=== PATIENT | male | born 1940 | race Caucasian/White ===

== ENCOUNTER 2016-05-27 20:39 | Emergency (ER) | payer MEDICARE, OTHER ==
[2016-05-27 20:53] VITALS: BMI 27.4
--- NOTE | 2016-05-27 21:24 | ED PDOC ---
Arrival/HPI - General Historian: Patient - History of Present Illness Time/Duration: 24 hours Symptom Onset: Sudden <Ceferino Butler - Last Filed: 05/27/16 23:42> <Usman Martinez - Last Filed: 05/28/16 00:49> - General Chief Complaint: Lower Extremity Problem/Injury Time Seen by Provider: 05/27/16 20:40 - History of Present Illness Narrative History of Present Illness (Text): 05/27/16 21:19 76 y/o male with hx Mantle Cell lymphoma, CAD s/p stents, recent admission for b /l pneumonia presenting with pain in swelling to left ankle. Patient states he woke up with left ankle pain last night and noticed swelling to the area. Patient denies injury or trauma. He further denies fever or chills. Patient is currently undergoing chemotherapy which consists of Imbruvica with an extensive side effect profile. This is his third course of taking this drug. He is able to ambulate without distress. Denies chest pain, shortness of breath (Ceferino Butler) Past Medical History - Provider Review Nursing Documentation Reviewed: Yes - Past History Past History: Unable to Obtain - Infectious Disease Hx of Infectious Diseases: None - Tetanus Immunization Tetanus Immunization: Unknown - Cardiac Hx Cardiac Disorders: Yes Hx Congestive Heart Failure: No Hx Hypertension: Yes - Pulmonary Hx Pneumonia: No - Neurological HX Cerebrovascular Accident: No - HEENT Hx HEENT Disorder: Yes (wears eyeglasses) Hx Deafness: Yes Other/Comment: 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, uses a hearing aid in right ear also - Renal Hx Renal Failure: No - Endocrine/Metabolic Hx Diabetes Mellitus Type 1: No Hx Diabetes Mellitus Type 2: No Hx Hypothyroidism: No - Hematological/Oncological Hx Cancer: No - Integumentary Hx Dermatological Disorder: No - Musculoskeletal/Rheumatological Hx Arthritis: No Hx Rheumatoid Arthritis: No - Gastrointestinal Hx Gastroesophageal Reflux: No - Genitourinary/Gynecological Hx Genitourinary Disorders: No Hx Reproductive Disorders: No - Psychiatric Hx Emotional Abuse: No Hx Physical Abuse: No Hx Substance Use: No - Past Surgical History Past Surgical History: Unable to Obtain - Surgical History Hx Orthopedic Surgery: Yes - Anesthesia Hx Anesthesia Reactions: No Hx Malignant Hyperthermia: No - Suicidal Assessment Feels Threatened In Home Enviroment: No <Ceferino Butler - Last Filed: 05/27/16 23:42> Family/Social History - Physician Review Nursing Documentation Reviewed: Yes Family/Social History: Unknown Family HX Smoking Status: Never Smoked Hx Alcohol Use: No Hx Substance Use: No Hx Substance Use Treatment: No <Ceferino Butler - Last Filed: 05/27/16 23:42> Allergies/Home Meds <Ceferino Butler - Last Filed: 05/27/16 23:42> <Usman Martinez - Last Filed: 05/28/16 00:49> Allergies/Adverse Reactions: Allergies azithromycin Allergy (Severe, Verified 04/21/16 19:17) ANGIOEDEMA erythromycin base Allergy (Severe, Verified 04/21/16 19:17) ANGIOEDEMA Penicillins Allergy (Severe, Verified 04/21/16 19:17) ANAPHYLAXIS cephalexin monohydrate [From Keflex] Allergy (Intermediate, Verified 04/21/16 19 :17) RASH gabapentin Allergy (Intermediate, Verified 04/21/16 19:17) RASH pregabalin Allergy (Intermediate, Verified 04/21/16 19:17) RASH Sulfa (Sulfonamide Antibiotics) Allergy (Intermediate, Verified 04/21/16 19:17) RASH nitro paste Allergy (Intermediate, Uncoded 04/21/16 19:17) DIZZINESS/HYPOTENSION CAUSE HYPOTENSION Home Medications: Home Meds Medication Instructions Recorded Confirmed Ranolazine [Ranexa] 500 mg PO BID 12/07/14 04/21/16 Aspirin [Aspirin EC] 81 mg PO DAILY 09/10/15 04/21/16 Oxybutynin Chloride 5 mg PO DAILY 09/10/15 04/21/16 Levalbuterol [Xopenex] 1.25 mg IH Q6 PRN 01/31/16 04/21/16 Acetaminophen [Tylenol (Renal)] 650 mg PO Q6 PRN 04/21/16 04/21/16 Benzocaine/Menthol [Chloraseptic 1 lozenge PO DAILY 04/21/16 04/21/16 Max Lozenge] Insulin Regular, Human [Humulin R See Protocol SQ ACHS 04/21/16 04/21/16 U-500] Metoprolol Tartrate [Lopressor] 25 mg PO DAILY 04/21/16 04/21/16 Ondansetron [Zofran Inj] 4 mg IVP Q6H 04/21/16 04/21/16 Pantoprazole [Protonix EC Tab] 40 mg PO DAILY 04/21/16 04/21/16 Polyethylene Glycol 3350 [Miralax] 1 packet PO DAILY PRN 04/21/16 04/21/16 Review of Systems - Physician Review All systems were reviewed & negative as marked: Yes - Review of Systems Constitutional: absent: Fevers, Night Sweats Respiratory: absent: SOB, Cough Cardiovascular: absent: Chest Pain, Palpitations Musculoskeletal: Other (left ankle pain and swelling ) <Ceferino Butler - Last Filed: 05/27/16 23:42> Physical Exam Vital Signs Reviewed: Yes Temperature: Afebrile Blood Pressure: Normal Pulse: Regular Respiratory Rate: Normal Appearance: Positive for: Well-Appearing Pain Distress: None Mental Status: Positive for: Alert and Oriented X 3 - Systems Exam Head: Present: Atraumatic, Normocephalic Pupils: Present: PERRL Conjunctiva: Present: Normal Mouth: Present: Moist Mucous Membranes Neck: Present: Normal Range of Motion Respiratory/Chest: Present: Rhonchi. No: Clear to Auscultation, Wheezes Upper Extremity: Present: Normal Inspection. No: Cyanosis, Edema Lower Extremity: Present: Edema, NORMAL PULSES. No: Normal Inspection (left ankle with non-pitting edema, tenderness), CALF TENDERNESS Neurological: Present: GCS=15, Speech Normal Psychiatric: Present: Alert, Oriented x 3, Normal Insight <Ceferino Butler - Last Filed: 05/27/16 23:42> Vital Signs Pulse Resp BP Pulse Ox 05/27/16 23:51 74 17 136/72 99 Medical Decision Making <Ceferino Butler - Last Filed: 05/27/16 23:42> <Usman Martinez - Last Filed: 05/28/16 00:49> ED Course and Treatment: 05/27/16 21:2 76 y/o male with hx mantle cell lymphoma, CAD s/p stenting, recent pneumonia presenting with left ankle pain and swelling. Patient is currently undergoing chemotherapy with Imbruciva which has an extensive side effect profile including soft tissue infection, vasculitis, DVT. Patient is afebrile and without overt signs of soft tissue infection or trauma. - CBC - CMP - blood cx - ankle xray - venous doppler 05/27/16 23:42 labs and radiology reviewed. There is not evidence of venous thrombus on left extremity duplex. laboratory results reveal chronic anemia. There is no leukocytosis or neutropenia. Patient is discharged to f/u with oncology and pcp. (Ceferino Butler) Impression: Pt seen and evaluated with biomedical engineering internship. Aware and ahree with HPI, clinical findings, plan, and management. 76 year old make with pmhx mantle cell lymphoma, CAD s/p stents presented for pain in left ankle with swelling. Plan: -- Labs, blood cultures -- XR Left Ankle -- Venous Doppler -- Xopenex -- Reassess and disposition Pior Visits: Notes and results from previous visits were reviewed. Progress Notes: (Usman Martinez) - Lab Interpretations Lab Results: 05/27/16 21:32 05/27/16 21:32 Lab Results 05/27/16 21:32: WBC 5.2, RBC 3.68, Hgb 9.2 L, Hct 29.1 L, MCV 79.1 L, MCH 25.0, MCHC 31.6, RDW 17.2 H, Plt Count 142, MPV 10.7, PT 11.6, INR 1.07, APTT 22.9 L, Sodium 136, Potassium 4.1, Chloride 101, Carbon Dioxide 25, Anion Gap 14, BUN 17 , Creatinine 1.1, Est GFR ( Amer) > 60, Est GFR (Non-Af Amer) > 60, Random Glucose 108, Uric Acid 5.4, Calcium 8.5, Total Bilirubin 0.8, AST 38, ALT 25, Alkaline Phosphatase 83, Total Protein 6.9, Albumin 3.3, Globulin 3.6, Albumin/Globulin Ratio 0.9 L - RAD Interpretation Radiology Orders: 05/27/16 21:12 DUPLEX LOWER EXTRM VEIN BILAT [US] Stat 05/27/16 21:13 ANKLE LEFT 3 VIEWS ROUTINE [RAD] Stat 05/27/16 22:58 CHEST TWO VIEWS (PA/LAT) [RAD] Stat - Medication Orders Current Medication Orders: Discontinued Medications Acetaminophen (Tylenol 325mg Tab) 650 mg PO STAT STA Stop: 05/27/16 23:38 Last Admin: 05/27/16 23:49 Dose: 650 MG MAR Pain/Vitals Document 05/27/16 23:49 RD (Rec: 05/27/16 23:49 RD [id number]) Pain Reassessment Is This A Pain ReAssessment? No Sleep Is patient sleeping during reassessment? No Presence of Pain Presence of Pain Yes Doxycycline Hyclate (Doryx) 100 mg PO STAT STA PRN Reason: Protocol Stop: 05/27/16 23:37 Last Admin: 05/27/16 23:49 Dose: 100 MG Levalbuterol HCl (Xopenex) 0.63 mg IH ONCE STA Stop: 05/27/16 21:37 Last Admin: 05/27/16 21:46 Dose: 0.63 MG - PA / COPPER PLATER / Resident Statement / has reviewed & agrees with the documentation as recorded. / has examined the patient and agrees with the treatment plan. <Usman Martinez - Last Filed: 05/28/16 00:49> Disposition/Present on Arrival - Present on Arrival Any Indicators Present on Arrival: No History of DVT/PE: No History of Uncontrolled Diabetes: No Urinary Catheter: No History of Decub. Ulcer: No History Surgical Site Infection Following: None - Disposition Have Diagnosis and Disposition been Completed?: Yes Disposition Time: 23:44 Patient Plan: Discharge <Ceferino Butler - Last Filed: 05/27/16 23:42> <Usman Martinez - Last Filed: 05/28/16 00:49> - Disposition Diagnosis: Lower extremity edema Disposition: HOME/ ROUTINE Patient Problems: Current Active Problems Problem Status Diagnosed Diabetes mellitus Acute Frequent falls Acute Lymphoma Acute TIA (transient ischemic attack) Acute Condition: STABLE Prescriptions: Doxycycline Hyclate [Vibramycin] 100 mg PO Q12 #20 tab Referrals: Alie Myers MD [Primary Care Provider] - Follow up with primary
[2016-05-27] MEDS ORDERED: Levalbuterol 0.63 MG/3 ML Inhal Soln UD IH STA (21:36)
[2016-05-27 22:07] LABS: ALB/GLOB RATIO 0.9 (1.1-1.8); ALKALINE PHOSPHATASE 83 U/L (38-133); ALT/SGPT 25 U/L (7-56); AST/SGOT 38 U/L (15-59); BILIRUBIN,TOTAL 0.8 mg/dL (0.2-1.3); BLOOD UREA NITROGEN 17 mg/dL (7-21); CALCIUM 8.5 mg/dL (8.4-10.5); CARBON DIOXIDE 25 mmol/L (21-33); CHLORIDE 101 mmol/L (98-107); GFR AFRICAN-AMERICAN > 60; GLUCOSE,RANDOM 108 mg/dL (70-110); POTASSIUM 4.1 mmol/L (3.6-5.0); SODIUM 136 mmol/L (132-148); TOTAL PROTEIN 6.9 g/dL (5.8-8.3); URIC ACID 5.4 mg/dL (3.5-8.5)
[2016-05-27 22:18] LABS: HEMATOCRIT 29.1 % (42.0-52.0); MEAN CELL VOLUME 79.1 fL (80.0-105.0); MEAN CORPUSCULAR HGB CONC 31.6 g/dl (31.0-37.0); MEAN PLATELET VOLUME 10.7 fl (7.0-11.0); RED CELL DISTRIBUTION WIDTH 17.2 % (11.5-14.5); WHITE BLOOD COUNT 5.2 [, 10^3/ul] (4.5-11.0)
[2016-05-27 22:28] LABS: INR 1.07 (0.93-1.08); PARTIAL THROMBOPLASTIN TIME 22.9 Seconds (23.7-30.8)
[2016-05-27 23:52] VITALS: BP 136/72; PULSE 74; RESP 17; O2SAT 99
--- NOTE | 2016-05-28 11:08 | RAD ---
HISTORY: cough COMPARISON: CT chest from 04/28/2016 TECHNIQUE: Chest PA and lateral FINDINGS: The right IJV line terminates at the cavoatrial junction. LUNGS: The lungs are clear. PLEURA: No significant pleural effusion identified. No pneumothorax apparent. CARDIOVASCULAR: There is mild cardiomegaly. Atherosclerotic aortic arch calcifications are present. . OSSEOUS STRUCTURES: No significant abnormalities. VISUALIZED UPPER ABDOMEN: Normal. OTHER FINDINGS: There is chronic elevation of the right hemidiaphragm. IMPRESSION: No active pulmonary disease.
--- NOTE | 2016-05-28 11:09 | RAD ---
PROCEDURE: Left Ankle Radiographs. HISTORY: swelling medial ankle area COMPARISON: None FINDINGS: BONES: Bone alignment and mineralization are normal. There is no acute fracture or bone destruction. JOINTS: There is a small joint effusion. No osteoarthritis. Ankle mortise maintained. Talar dome intact SOFT TISSUES: There is moderate medial soft tissue swelling. OTHER FINDINGS: None. IMPRESSION: No acute fracture or dislocation. Moderate medial soft tissue swelling.
--- NOTE | 2016-05-28 11:14 | US ---
HISTORY: Leg pain and swelling. Evaluate for DVT PHYSICIAN(S): Je Horne MD. TECHNIQUE: Duplex sonography and color-flow Doppler with graded compression were used to evaluate the deep venous systems of both lower extremities. FINDINGS: The visualized deep venous systems of both lower extremities are sonographically normal and compressible. Normal wave forms and augmentation are seen. There is no sonographic evidence for deep venous thrombosis in the visualized segments of both lower extremities. IMPRESSION: No sonographic evidence for deep venous thrombosis in the visualized segments of both lower extremities.
== END 2016-05-27 23:51 | disposition home or self-care (01) ==
LOC: ED 20:39
DX: R60.9 Edema, unspecified (principal); I25.10 Atherosclerotic heart disease of native coronary artery without angina pectoris; I10 Essential (primary) hypertension; Z95.5 Presence of coronary angioplasty implant and graft

== ENCOUNTER 2016-05-30 17:55 | Inpatient (IN) | payer MEDICARE, OTHER ==
[2016-05-30 17:55] VITALS: BMI 27.4
--- NOTE | 2016-05-30 18:43 | ED PDOC ---
Arrival/HPI - General Chief Complaint: Fever Time Seen by Provider: 05/30/16 18:21 Historian: Patient - History of Present Illness Narrative History of Present Illness (Text): 05/30/16 18:22 A 76 year old male, whose past medical history includes mantle cell lymphoma, CAD with stents, and recent admission for bilateral pneumonia, presents to the emergency department complaining of fever up to 102 and generalized weakness since this morning. Patient reports he was in the emergency department two days ago for left foot swelling which has been slowly improving on vibramycin. Patient felt nauseated so he took a Zofran along with Tylenol around 12:00. Patient denies any chest pain, abdominal pain, change in bowel/urine, headache or any other complaints at this time. Patient mentions the patient is currently on antibiotics. PMD: Dr. Myers Time/Duration: 4-6 hours Symptom Onset: Gradual Symptom Course: Intermittent Quality: Other Activities at Onset: Rest Context: Home Past Medical History - Provider Review Nursing Documentation Reviewed: Yes - Past History Past History: Unable to Obtain - Infectious Disease Hx of Infectious Diseases: None - Tetanus Immunization Tetanus Immunization: Unknown - Cardiac Hx Cardiac Disorders: Yes Hx Congestive Heart Failure: No Hx Hypertension: Yes - Pulmonary Hx Pneumonia: No - Neurological HX Cerebrovascular Accident: No - HEENT Hx HEENT Disorder: Yes (wears eyeglasses) Hx Deafness: Yes Other/Comment: 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, uses a hearing aid in right ear also - Renal Hx Renal Failure: No - Endocrine/Metabolic Hx Diabetes Mellitus Type 1: No Hx Diabetes Mellitus Type 2: No Hx Hypothyroidism: No - Hematological/Oncological Hx Cancer: No - Integumentary Hx Dermatological Disorder: No - Musculoskeletal/Rheumatological Hx Arthritis: No Hx Rheumatoid Arthritis: No - Gastrointestinal Hx Gastroesophageal Reflux: No - Genitourinary/Gynecological Hx Genitourinary Disorders: No Hx Reproductive Disorders: No - Psychiatric Hx Emotional Abuse: No Hx Physical Abuse: No Hx Substance Use: No - Past Surgical History Past Surgical History: Unable to Obtain - Surgical History Hx Orthopedic Surgery: Yes - Anesthesia Hx Anesthesia: Yes Hx Anesthesia Reactions: No Hx Malignant Hyperthermia: No - Suicidal Assessment Feels Threatened In Home Enviroment: No Family/Social History - Physician Review Nursing Documentation Reviewed: Yes Family/Social History: No Known Family HX Smoking Status: Never Smoked Hx Alcohol Use: No Hx Substance Use: No Hx Substance Use Treatment: No Allergies/Home Meds Allergies/Adverse Reactions: Allergies azithromycin Allergy (Severe, Verified 04/21/16 19:17) ANGIOEDEMA erythromycin base Allergy (Severe, Verified 04/21/16 19:17) ANGIOEDEMA Penicillins Allergy (Severe, Verified 04/21/16 19:17) ANAPHYLAXIS cephalexin monohydrate [From Keflex] Allergy (Intermediate, Verified 04/21/16 19 :17) RASH gabapentin Allergy (Intermediate, Verified 04/21/16 19:17) RASH pregabalin Allergy (Intermediate, Verified 04/21/16 19:17) RASH Sulfa (Sulfonamide Antibiotics) Allergy (Intermediate, Verified 04/21/16 19:17) RASH nitro paste Allergy (Intermediate, Uncoded 04/21/16 19:17) DIZZINESS/HYPOTENSION CAUSE HYPOTENSION Home Medications: Home Meds Medication Instructions Recorded Confirmed Ranolazine [Ranexa] 500 mg PO BID 12/07/14 04/21/16 Aspirin [Aspirin EC] 81 mg PO DAILY 09/10/15 04/21/16 Oxybutynin Chloride 5 mg PO DAILY 09/10/15 04/21/16 Levalbuterol [Xopenex] 1.25 mg IH Q6 PRN 01/31/16 04/21/16 Acetaminophen [Tylenol (Renal)] 650 mg PO Q6 PRN 04/21/16 04/21/16 Benzocaine/Menthol [Chloraseptic 1 lozenge PO DAILY 04/21/16 04/21/16 Max Lozenge] Insulin Regular, Human [Humulin R See Protocol SQ ACHS 04/21/16 04/21/16 U-500] Metoprolol Tartrate [Lopressor] 25 mg PO DAILY 04/21/16 04/21/16 Ondansetron [Zofran Inj] 4 mg IVP Q6H 04/21/16 04/21/16 Pantoprazole [Protonix EC Tab] 40 mg PO DAILY 04/21/16 04/21/16 Polyethylene Glycol 3350 [Miralax] 1 packet PO DAILY PRN 04/21/16 04/21/16 Review of Systems - Physician Review All systems were reviewed & negative as marked: Yes - Review of Systems Systems not reviewed;Unavailable: Language Barrier Constitutional: Fevers Respiratory: absent: SOB, Cough Cardiovascular: absent: Chest Pain Gastrointestinal: Nausea. absent: Abdominal Pain, Stool Changes, Vomiting, Hematochezia Genitourinary Male: absent: Dysuria, Urinary Output Changes Musculoskeletal: Other (left foot swelling (improving)) Neurological: Dizziness (resolved) Physical Exam Vital Signs Reviewed: Yes Vital Signs Temp Pulse Resp BP Pulse Ox 05/30/16 18:03 97.9 F 76 16 105/61 97 Temperature: Afebrile Blood Pressure: Normal Pulse: Regular Respiratory Rate: Normal Appearance: Positive for: Well-Appearing, Non-Toxic, Comfortable Pain Distress: None Mental Status: Positive for: Alert and Oriented X 3 - Systems Exam Head: Present: Atraumatic, Normocephalic Pupils: Present: PERRL Conjunctiva: Present: Other (pale) Mouth: Present: Moist Mucous Membranes Pharnyx: Present: Normal. No: ERYTHEMA, EXUDATE Neck: Present: Normal Range of Motion Respiratory/Chest: Present: Clear to Auscultation, Good Air Exchange. No: Respiratory Distress, Accessory Muscle Use Cardiovascular: Present: Regular Rate and Rhythm, Normal S1, S2. No: Murmurs Abdomen: Present: Normal Bowel Sounds. No: Tenderness, Distention, Peritoneal Signs Back: Present: Normal Inspection Upper Extremity: Present: Normal Inspection. No: Cyanosis, Edema Lower Extremity: Present: Edema (trace edema bilaterally), Erythema (medial malleolus of the left foot) Neurological: Present: GCS=15, CN II-XII Intact, Speech Normal Skin: Present: Warm, Dry, Normal Color. No: Rashes Psychiatric: Present: Alert, Oriented x 3, Normal Insight, Normal Concentration Medical Decision Making ED Course and Treatment: 05/30/16 18:22 Impression: A 76 year old male with a fever and generalized weakness. Patient currently on antibiotics. Differential Diagnosis include but are not limited to: Sepsis vs lymphoma vs drug reaction Plan: -- EKG -- Chest X-ray -- Labs -- Urinalysis -- Reassess and disposition Prior Visits: Notes and results from previous visits were reviewed. The patient last presented to the emergency department on 05/27/16 for evaluation of swelling to the left ankle. Progress Notes: 05/30/16 19:52 Patient with noted history of fever on imbruvica for lymphoma with fever, while on vibramycin. Concern for sepsis vs drug reaction vs fever due to lymphoma - case discussed with Dr. Myers, who said to admit the patient to his service and will start on empiric antibiotics. Will start on azactam and vanco, as discussed with Dr. Marshall. - Lab Interpretations Lab Results: 05/30/16 18:10 05/30/16 18:10 Lab Results 05/30/16 19:18: Blood Type Pending, Antibody Screen Pending, BBK History Checked Patient has bt 05/30/16 19:00: Influenza Typ A,B (EIA) Negative for flu a/b 05/30/16 18:10: WBC 5.9, RBC 3.81, Hgb 9.6 L, Hct 29.9 L, MCV 78.5 L, MCH 25.2, MCHC 32.1, RDW 17.0 H, Plt Count 177, MPV 10.3, Gran % 54.7, Lymph % (Auto) 33.8 , [place] % (Auto) 9.5 H, Eos % (Auto) 1.5, Baso % (Auto) 0.5, Gran # 3.22, Lymph # 2.0, [place] # 0.6, Eos # 0.1, Baso # 0.03, ESR Pending, PT 12.0 H, INR 1.11 H, APTT 32.3 H, pO2 66 H, VBG pH 7.37, VBG pCO2 45.0, VBG HCO3 26.0, VBG Total CO2 27.4, VBG O2 Sat (Calc) 93.5 H, VBG Base Excess 0.3, VBG Potassium 4.0, Glucose 134 H, Lactate 1.0, FiO2 21.0, Sodium 136.0, Potassium 3.9, Chloride 104.0, Carbon Dioxide 26, Anion Gap 12, BUN 19, Creatinine 1.1, Est GFR ( Amer) > 60, Est GFR (Non-Af Amer) > 60, Random Glucose 133 H, Calcium 8.7, Phosphorus 4.2, Magnesium 1.7, Total Bilirubin 0.9, AST 34, ALT 20, Alkaline Phosphatase 94 , Lactate Dehydrogenase 870 H, Total Creatine Kinase < 20 L, Troponin I < 0.01, NT-Pro-B Natriuret Pep 145, Total Protein 6.8, Albumin 3.3, Globulin 3.5, Albumin/Globulin Ratio 0.9 L, Lipase 17 L, Venous Blood Potassium 4.0 I have reviewed the lab results: Yes - RAD Interpretation Radiology Orders: 05/30/16 18:32 CHEST PORTABLE [RAD] Stat - Medication Orders Current Medication Orders: Aztreonam (Azactam 1 Gm) 100 mls @ 100 mls/hr IVPB STAT STA PRN Reason: Protocol Stop: 05/30/16 20:38 Vancomycin HCl 1 gm/ Sodium (Chloride) 250 mls @ 133.333 mls/hr IV STAT STA PRN Reason: Protocol Stop: 05/30/16 21:32 - Scribe Statement The provider has reviewed the documentation as recorded by the Jadielibe Parvez Stallings Provider Scribe Attestation: All medical record entries made by the Scribe were at my direction and personally dictated by me. I have reviewed the chart and agree that the record accurately reflects my personal performance of the history, physical exam, medical decision making, and the department course for this patient. I have also personally directed, reviewed, and agree with the discharge instructions and disposition. Disposition/Present on Arrival - Present on Arrival Any Indicators Present on Arrival: No History of DVT/PE: No History of Uncontrolled Diabetes: No Urinary Catheter: No History of Decub. Ulcer: No History Surgical Site Infection Following: None - Disposition Have Diagnosis and Disposition been Completed?: Yes Diagnosis: Fever Disposition: HOSPITALIZED Disposition Time: 19:20 Patient Plan: Admission Patient Problems: Current Active Problems Problem Status Diagnosed Diabetes mellitus Acute Frequent falls Acute Lymphoma Acute TIA (transient ischemic attack) Acute Condition: FAIR
[2016-05-30 19:00] LABS: ADD MANUAL DIFF? NO
[2016-05-30 19:07] LABS: BASO # 0.03 K/mm3 (0.0-2.0); BASO % 0.5 % (0.0-3.0); EOS # 0.1 (0.0-0.7); EOS % 1.5 % (1.5-5.0); GRAN # 3.22 (1.4-6.5); GRAN % 54.7 % (50.0-68.0); HEMATOCRIT 29.9 % (42.0-52.0); LYMPH % 33.8 % (22.0-35.0); MEAN CELL VOLUME 78.5 fL (80.0-105.0); MEAN CORPUSCULAR HEMOGLOBIN 25.2 pg (25.0-35.0); MEAN CORPUSCULAR HGB CONC 32.1 g/dl (31.0-37.0); MEAN PLATELET VOLUME 10.3 fl (7.0-11.0); MONO # 0.6 (0.1-0.6); MONO % 9.5 % (1.0-6.0); PLATELET COUNT 177 10^3/uL (120.0-450.0); WHITE BLOOD COUNT 5.9 10^3/ul (4.5-11.0)
[2016-05-30 19:12] LABS: VENOUS BLOOD GAS BASE EXCESS 0.3 mmol/L (0.0-2.0); VENOUS BLOOD PH 7.37 (7.32-7.43)
[2016-05-30 19:16] LABS: ALB/GLOB RATIO 0.9 (1.1-1.8); ALKALINE PHOSPHATASE 94 U/L (38-133); ALT/SGPT 20 U/L (7-56); AST/SGOT 34 U/L (15-59); BILIRUBIN,TOTAL 0.9 mg/dL (0.2-1.3); BLOOD UREA NITROGEN 19 mg/dL (7-21); CALCIUM 8.7 mg/dL (8.4-10.5); CARBON DIOXIDE 26 mmol/L (21-33); CHLORIDE 100 mmol/L (98-107); GFR AFRICAN-AMERICAN > 60; GLUCOSE,RANDOM 133 mg/dL (70-110); LIPASE 17 U/L (23-300); MAGNESIUM 1.7 mg/dL (1.7-2.2); PHOSPHOROUS 4.2 mg/dL (2.5-4.5); POTASSIUM 3.9 mmol/L (3.6-5.0); SODIUM 134 mmol/L (132-148); TOTAL PROTEIN 6.8 g/dL (5.8-8.3)
[2016-05-30 19:29] LABS: INR 1.11 (0.93-1.08); PARTIAL THROMBOPLASTIN TIME 32.3 Seconds (23.7-30.8); TROPONIN I < 0.01 ng/mL
[2016-05-30] MEDS ORDERED: Aztreonam 1 Gm in NS 100mL 100 ML IVPB STA (19:39)
[2016-05-30 20:14] LABS: ERYTHROCYTE SEDIMENTATION RATE 65 mm/hr (0.00-15.0)
[2016-05-30] MEDS ORDERED: Sodium Chloride 0.9% 1,000 ML IV STA (20:35)
[2016-05-30] MEDS ORDERED: Vancomycin 1gm in NS 250ml 250 ML IVPB STA (21:13)
[2016-05-30] MEDS ORDERED: Levalbuterol 1.25 MG/3 ML Inhal Soln UD IH PRN (22:25)
[2016-05-30] MEDS ORDERED: IMBRUVICA 140 MG PO SCH (22:30)
[2016-05-30] MEDS ORDERED: Benzocaine/Menthol (Cepacol) Lozenge MT PRN (22:44)
[2016-05-30] MEDS: Vancomycin 1gm in NS 250ml 250 ML IVPB SCH (23:05)
[2016-05-30] MEDS: Meropenem 1 GM in Sodium Chloride 0.9% 100 ML IVPB SCH (23:05)
[2016-05-30] MEDS: Magnesium Oxide 400 mg Tab UD PO SCH (23:19)
[2016-05-30] MEDS: RANEXA 500 MG PO SCH (23:20)
[2016-05-30] MEDS: RAPAFLO 8 MG PO SCH (23:20)
[2016-05-31] MEDS: Meropenem 1 GM in Sodium Chloride 0.9% 100 ML IVPB SCH ×2 (00:36→05:49)
--- NOTE | 2016-05-31 00:39 | HP ---
HISTORY OF PRESENT ILLNESS: This is a 76-year-old male with a history of stage IV mantle cell lympho ma, currently on active therapy with Rituxan given intravenously once a month along with Imbruvica th at he takes 4 capsules, each capsule is 140 mg, once daily. On this regimen, the patient was recentl y in the hospital with bilateral pneumonitis, actually, on the CAT scan had evidence of trilobar pneu monia, treated actively antibiotics with successfully, went home, received his Rituxan based chemothe rapy and his IV gamma globulin recently. His next dose of Rituxan would be due on 06/12. Was seen i n the ER 2 days ago with signs and symptoms of new onset of swelling of the left ankle and left foot with epididymitis lesions on the lateral aspect of the foot, was treated with oral doxycycline, start ed to feel better, took Zofran for nausea probably related to the doxycycline, and earlier this morni ng and later on this afternoon spiked a temperature up to 102.4 along with generalized weakness. The patient's called me. Dr. Marques asked for my opinion. I told him, in view of the fever up to 102, that he should probably be better off coming into the Emergency Room as he has multiple other c omorbid issues. PAST MEDICAL HISTORY: Coronary artery disease with stents, history of lung cancer, history of diabet es and is on active chemotherapy. REVIEW OF SYSTEMS: The patient denies any history of significant nausea or vomiting, but has been [place]udd[place] ving fevers and chills. Denies any chest pain, or abdominal pain. No dysuria or hematuria. ALLERGIES: The patient has many ALLERGIES, INCLUDING AZITHROMYCIN, ERYTHROMYCIN, PENICILLIN, CEPHALE VALENCIA, GABAPENTIN, LYRICA, SULFONAMIDE AND NITROPASTE. HOME MEDICATIONS: The patient's home medications include Ranexa 500 b.i.d., aspirin 81 mg daily, oxy butynin 5 mg p.o. daily, Xopenex 1.25 mg a day every 6 hours p.r.n., Tylenol p.r.n. Chloraseptic 1 lo zenge p.o. daily, insulin coverage as needed, metoprolol 25 mg p.o. daily, Zofran 4 mg IV every 6 ivis rs p.r.n., pantoprazole 40 mg p.o. daily, MiraLax 1 packet daily. PHYSICAL EXAMINATION VITAL SIGNS: Stable. T-max is 97.9, pulse 76, respirations 16, blood pressure is 105/61, pulse ox i s 97%. HEENT: Head is normocephalic, atraumatic. Conjunctivae pale. Sclerae are anicteric. Pupils are eq ually reactive to light and accommodation. Examination of the oropharynx reveals no oropharyngeal le sions. Tongue is moist. NECK: Supple. There is no adenopathy. Normal range of motion is noted. No jugular venous distenti on is noted. LUNGS: Relatively clear to percussion and auscultation. The patient is in no acute respiratory dist ress, no accessory muscles of respiration are in use. CARDIOVASCULAR: Reveals S1 and S2 to be normal. No murmurs heard. ABDOMEN: Soft, nontender and nondistended. No rebound, rigidity or guarding noted. BACK: Reveals no spinal tenderness. No CVA tenderness. EXTREMITIES: Upper extremities reveal normal to inspection. No cyanosis, clubbing or edema. Lower extremities reveal trace edema bilaterally with erythema in the medial malleolus of the left foot. NEUROLOGIC: Higher functions are normal. No focal deficits noted. SKIN: Warm and dry without any rashes except the feet on the left side. PSYCHIATRIC: The patient is awake, alert and oriented with normal concentration. Normal affect. IMAGING: Chest x-ray shows no gross findings. ASSESSMENT AND PLAN: Differential diagnosis would include evolving sepsis in a patient with port. B lood cultures and urine cultures have been drawn. We will wait for ID input. The patient will get s tat dose of vancomycin and Azactam while we are waiting to see what the outcome of the cultures would be. The patient will continue his Imbruvica for his lymphoma, which has been on hold this morning. Continue his vibramycin for until we get the ID input as well. The patient's case was discussed wit h NANCY Cotton . LABORATORY DATAT: Today's labs reveal a white count of 5.9, hemoglobin 9.6, hematocrit 29.9, platele t count 177,000. Sodium is 134, K is 3.9, chloride 100, CO2 26, BUN 19, creatinine 1.1 and a blood s ugar of 133. PLAN: We will continue to monitor his blood sugars as well. He may need insulin coverage in the hos pital should his sugar levels go up. Routine post exam instructions have been given to the patient. ID and cardiology consults have been obtained. Alie Myers MD cc: [id number] TT: 05/31/2016 00:39:13 mn
[2016-05-31] MEDS: Levalbuterol 0.63 MG/3 ML Inhal Soln UD IH PRN ×2 (01:05→08:35)
[2016-05-31 06:42] LABS: URINE BILIRUBIN NEGATIVE (NEGATIVE); URINE BLOOD NEGATIVE (NEGATIVE); URINE GLUCOSE (UA) NEGATIVE (NEGATIVE); URINE KETONE NEGATIVE (NEGATIVE); URINE LEUKOCYTE ESTERASE NEGATIVE Leu/uL (NEGATIVE); URINE PROTEIN NEGATIVE mg/dL (<30 mg/dL); URINE UROBILINOGEN 0.2 E.U./dL (<1 E.U./dL)
[2016-05-31 06:44] LABS: URINE APPEARANCE CLEAR (CLEAR); URINE COLOR YELLOW (YELLOW)
--- NOTE | 2016-05-31 08:52 | RAD ---
HISTORY: Sepsis Patient COMPARISON: 05/27/2016 FINDINGS: LUNGS: No active pulmonary disease. PLEURA: No significant pleural effusion identified, no pneumothorax apparent. CARDIOVASCULAR: Normal. OSSEOUS STRUCTURES: No significant abnormalities. VISUALIZED UPPER ABDOMEN: Normal. OTHER FINDINGS: right IJV line terminates at the cavoatrial junction.;chronic elevation of the right hemidiaphragm. Calcified left kain diaphragmatic pleural plaques -unchanged IMPRESSION: No active disease.
--- NOTE | 2016-05-31 09:04 | CARD ---
APPROVED REPORT EKG Measurement Heart [id number] <Conclusion> Normal sinus rhythm Nonspecific T wave abnormality Abnormal ECG
[2016-05-31] MEDS: RANEXA 500 MG PO SCH ×2 (09:47→17:59)
[2016-05-31] MEDS: Pantoprazole 40 mg EC Tab PO SCH (09:48)
[2016-05-31] MEDS: Calcium-Vit D 250 mg-125 Units Tab UD PO SCH (09:48)
[2016-05-31] MEDS: Vancomycin 1gm in NS 250ml 250 ML IVPB SCH ×2 (09:49→22:26)
[2016-05-31] MEDS ORDERED: MENTHOL PO SCH (10:00)
[2016-05-31] MEDS ORDERED: CHOLECALCIFEROL PO SCH (10:00)
[2016-05-31] MEDS ORDERED: BENZOCAINE PO SCH (10:00)
[2016-05-31] MEDS ORDERED: CALCIUM CARBONATE PO SCH (10:00)
[2016-05-31] MEDS: IMBRUVICA 140 MG PO SCH (10:09)
[2016-05-31] MEDS: Meropenem 1g/NS 100mL IVPB 100 ML IVPB SCH ×2 (13:27→22:25)
--- NOTE | 2016-05-31 13:44 | CON ---
DATE: 05/31/2016 The patient is in room 374, bed #2. REASON FOR CONSULTATION: Coronary artery disease, sepsis, mantle cell lymphoma, history of angioplas ty, stent insertion, hypertension, hyperlipidemia. HISTORY OF PRESENT ILLNESS: A 76-year-old male with past medical history significant for mantle cell lymphoma. The patient is getting chemotherapy and he is admitted with fever and chills. The patien t known to have coronary artery disease, status post stent insertion, hypertension, hyperlipidemia. The patient has been getting chemotherapy for mantle cell lymphoma. The patient denies any chest guadalupe n, shortness of breath, or palpitation. PAST MEDICAL HISTORY: Significant for multiple stents for coronary artery disease, history of rotabl ation for coronary artery disease, history of chemotherapy. Last stress test on 07/07/2014 was negativ e. The patient's previous cardiac workup has been as follows: The patient had first stent put in 2011, then patient had in-stent restenosis and patient underwent rotablation for this bare metal stent and the first stent was done on 11/09/2011 at [facility], followed by the patient had in-stent restenosis. The patient underwent PTCA of LAD with rotablation and a drug-eluting stent on 09/07/2013. The patient's last stress test on 07/07/2014 did not show any ischemia. Echo was done on 09/07/2014 wi th ejection fraction of 55%, trace to mild mitral regurgitation, trace to mild tricuspid regurg, mild aortic valve stenosis, RV systolic pressure of 45 mmHg. This echo was done on 09/07/2014. PERSONAL HISTORY: The patient denies smoking, denies drinking. ALLERGIES: The patient has many allergies INCLUDING AZITHROMYCIN, ERYTHROMYCIN, PENICILLIN, CEPHALEX [place], GABAPENTIN, LYRICA, SULFONAMIDES, AND NITRO PASTE. MEDICATIONS: The patient's home medications included Ranexa 500 b.i.d., aspirin 81 mg daily, oxybuty carolin 5 mg daily, Xopenex 1.25 mg a day every 6 hours p.r.n., Tylenol p.r.n., insulin coverage as neede d, metoprolol 25 daily, Protonix 40 daily, MiraLax 1 packet daily. REVIEW OF SYSTEMS: All the systems were reviewed, positives mentioned in the history, others were ne gative. PHYSICAL EXAMINATION: VITAL SIGNS: Blood pressure 133/72, respirations 19, pulse 72, temperature 97.6. HEENT: Head is normocephalic. Eyes: Pupils normal. Conjunctivae are slightly pale. NECK: JVP low. Carotids equal. THORAX: AP diameter normal. LUNGS: Clear. CARDIOVASCULAR: S1, S2. ABDOMEN: Soft, nontender, no organomegaly. EXTREMITIES: No clubbing, no cyanosis. LABORATORY DATA: WBC 5.9, hemoglobin 9.6, hematocrit 29.9, platelets 177. Sodium 134, potassium 3.9 , BUN 19, creatinine 1.1, sugar 160, calcium 8.7, phosphorous 4.2, magnesium 1.7. AST, ALT normal. Chest x-ray, no significant abnormality. EKG showed sinus rhythm, nonspecific ST-T changes. DIAGNOSES: Sepsis, coronary artery disease, status post angioplasty and stent insertion, mantle cell lymphoma, getting chemotherapy, anemia, diabetes mellitus. PLAN: We will continue aspirin 81 mg p.o. daily, 10 mg daily, furosemide 20 mg p.o. daily, Lip itor 20 mg p.o. daily, Lopid 600 mg b.i.d., metoprolol tartrate 25 mg p.o. daily, mag oxide 400 mg p. o. daily, meropenem 1 gram IV q. 8 hours, Plavix 75 mg daily, Protonix 40 mg p.o. daily. IV fluid wa s discontinued. Will continue to follow with you. The patient clinically, cardiac status is stable at present. Thanh Holbrook MD cc: [id number] TT: 05/31/2016 13:44:04 Confirmation # [id number] Dictation # [id number] teofilo
[2016-05-31] MEDS ORDERED: Meropenem 1g/NS 100mL IVPB 100 ML IVPB SCH ×2 (14:00)
--- NOTE | 2016-05-31 14:11 | CP.PCM.CON ---
History of Present Illness - History of Present Illness History of Present Illness: 76 year old male with PMH of mantle cell lymphoma with history of chemotherapy, coronary artery disease, benign prostatic hyperplasia, dyslipidemia, history of urinary tract infection, history of candidemia, history of bilateral pneumonia was sent for admission at [facility] because of ongoing left foot swelling which started about 3 days ago associated with erythema and pain. He was started by his Oncologist on Doxycycline with some improvement but he developed fever at home of 102 F, with some chills. He denies headache or dizziness, no abdominal pain, no diarrhea, no dysuria, no night sweats, no dysphagia or sore throat, no pain at the chest wall port area, no chest pain, rhinorrhea, no cough or SOB. Infectious Diseases consult is requested to further evaluate and manage. Social history: patient does not smoke, no alcohol abuse or illicit drug use; he lives with his , has not traveled outside of [place] in the past 3 months Review of Systems - Review of Systems All systems: reviewed and no additional remarkable complaints except (as per HPI ) Past Patient History - Infectious Disease Hx of Infectious Diseases: None - Tetanus Immunizations Tetanus Immunization: Unknown - Past Medical History & Family History Past Medical History?: Yes Past Family History: Reviewed and not pertinent - Past Social History Smoking Status: Never Smoked Alcohol: None Drugs: Denies Home Situation {Lives}: With Family - CARDIAC Hx Cardiac Disorders: Yes Hx Congestive Heart Failure: No Hx Hypertension: Yes - PULMONARY Hx Pneumonia: No - NEUROLOGICAL HX Cerebrovascular Accident: No - HEENT Hx HEENT Problems: Yes (wears eyeglasses) Hx Deafness: Yes Other/Comment: 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, uses a hearing aid in right ear also - RENAL Hx Renal Failure: No - ENDOCRINE/METABOLIC Hx Diabetes Mellitus Type 1: No Hx Diabetes Mellitus Type 2: No Hx Hypothyroidism: No - HEMATOLOGICAL/ONCOLOGICAL Hx Cancer: No - INTEGUMENTARY Hx Dermatological Problems: No - MUSCULOSKELETAL/RHEUMATOLOGICAL Hx Arthritis: No Hx Rheumatoid Arthritis: No - GASTROINTESTINAL Hx Gastroesophageal Reflux: No - GENITOURINARY/GYNECOLOGICAL Hx Genitourinary Disorders: No Hx Reproductive Disorders: No - PSYCHIATRIC Hx Emotional Abuse: No Hx Physical Abuse: No Hx Substance Use: No - SURGICAL HISTORY Hx Orthopedic Surgery: Yes - ANESTHESIA Hx Anesthesia: Yes Hx Anesthesia Reactions: No Hx Malignant Hyperthermia: No Meds Home Medications: Home Medication List Medication Instructions Recorded Confirmed Type Gemfibrozil [Lopid] 600 mg PO BID #0 05/30/16 05/30/16 Rx Allergies/Adverse Reactions: Allergies Allergy/AdvReac Type Severity Reaction Status Date / Time azithromycin Allergy Severe ANGIOEDEMA Verified 04/21/16 19:17 erythromycin base Allergy Severe ANGIOEDEMA Verified 04/21/16 19:17 Penicillins Allergy Severe ANAPHYLAXIS Verified 04/21/16 19:17 cephalexin monohydrate Allergy Intermediate RASH Verified 04/21/16 19:17 [From Keflex] gabapentin Allergy Intermediate RASH Verified 04/21/16 19:17 pregabalin Allergy Intermediate RASH Verified 04/21/16 19:17 Sulfa (Sulfonamide Allergy Intermediate RASH Verified 04/21/16 19:17 Antibiotics) nitro paste Allergy Intermediate DIZZINESS/H Uncoded 04/21/16 19:17 YPOTENSION - Medications Medications: Current Medications Sodium Chloride (Sodium Chloride 0.9%) 1,000 mls @ 75 mls/hr IV .[id number] STA Stop: 05/31/16 09:54 Last Admin: 05/30/16 21:05 Dose: 75 mls/hr Vancomycin HCl (Vancomycin 1gm) 250 mls @ 167 mls/hr IVPB STAT STA Stop: 05/30/16 22:42 Last Admin: 05/30/16 21:17 Dose: 167 mls/hr Meropenem 1 gm/ Sodium (Chloride) 100 mls @ 100 mls/hr IVPB Q8 ALEX PRN Reason: Protocol Stop: 06/06/16 22:31 Vancomycin HCl (Vancomycin 1gm) 250 mls @ 167 mls/hr IVPB Q12H ALEX PRN Reason: Protocol Physical Exam - Constitutional Appears: Non-toxic, No Acute Distress - Head Exam Head Exam: NORMAL INSPECTION - ENT Exam ENT Exam: Mucous Membranes Moist - Neck Exam Neck exam: Negative for: Lymphadenopathy, Meningismus - Respiratory Exam Respiratory Exam: Decreased Breath Sounds - Cardiovascular Exam Cardiovascular Exam: +S1, +S2 - GI/Abdominal Exam GI & Abdominal Exam: Soft. absent: Tenderness - Extremities Exam Additional comments: left ankle with some swelling on the medial side, mild erythema Results - Vital Signs Recent Vital Signs: Last Vital Signs Temp 97.9 F 05/30/16 18:03 Pulse 76 05/30/16 18:03 Resp 16 05/30/16 18:03 BP 105/61 05/30/16 18:03 Pulse Ox 97 05/30/16 18:03 - Labs Result Diagrams: 05/30/16 18:10 05/30/16 18:10 Assessment & Plan - Assessment and Plan (Free Text) Plan: Assessment Consider left ankle skin and skin structure infection history of bilateral lower lobe healthcare-associated pneumonia with Stenotrophomonas, clinically improved and S/P treatment history of MSSA and Pseudomonas tracheobronchitis 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
--- NOTE | 2016-05-31 15:30 | RAD ---
PROCEDURE: Left Ankle Radiographs. HISTORY: rule out fracture COMPARISON: None FINDINGS: BONES: Normal. No fracture. JOINTS: Normal. No osteoarthritis. Ankle mortise maintained. Talar dome intact SOFT TISSUES: Medial malleolar mild soft tissue swelling OTHER FINDINGS: Accessory ossification center-os peroneum Achilles tendon insertional small enthesophyte IMPRESSION: No suspect fracture. No dislocation. Other incidental findings as above
[2016-05-31] MEDS: RAPAFLO 8 MG PO SCH (22:21)
[2016-05-31] MEDS: Insulin Regular 1 UNITS/0.01 ML ML SC SCH (22:22)
[2016-05-31] MEDS: Magnesium Oxide 400 mg Tab UD PO SCH (22:24)
[2016-06-01] MEDS: Meropenem 1g/NS 100mL IVPB 100 ML IVPB SCH ×3 (06:58→22:07)
[2016-06-01] MEDS: IMBRUVICA 140 MG PO SCH (09:22)
[2016-06-01] MEDS: RANEXA 500 MG PO SCH ×2 (09:23→17:29)
[2016-06-01] MEDS: Insulin Regular 1 UNITS/0.01 ML ML SC SCH ×4 (09:23→22:04)
[2016-06-01] MEDS: Calcium-Vit D 250 mg-125 Units Tab UD PO SCH (09:26)
[2016-06-01] MEDS: Pantoprazole 40 mg EC Tab PO SCH (09:27)
[2016-06-01] MEDS: Vancomycin 1gm in NS 250ml 250 ML IVPB SCH ×2 (09:31→22:07)
[2016-06-01 10:26] LABS: ALKALINE PHOSPHATASE 94 U/L (38-133); ALT/SGPT 25 U/L (7-56); AST/SGOT 31 U/L (15-59); BILIRUBIN,TOTAL 0.8 mg/dL (0.2-1.3); BLOOD UREA NITROGEN 12 mg/dL (7-21); CALCIUM 8.7 mg/dL (8.4-10.5); CARBON DIOXIDE 27 mmol/L (21-33); CHLORIDE 102 mmol/L (95-110); GFR AFRICAN-AMERICAN > 60; GLUCOSE,RANDOM 173 mg/dL (70-110); SODIUM 137 mmol/L (132-148); TOTAL PROTEIN 6.5 g/dL (5.8-8.3)
[2016-06-01 13:25] LABS: HEMATOCRIT 31.8 % (42.0-52.0); MEAN CELL VOLUME 79.3 fL (80.0-105.0); MEAN CORPUSCULAR HEMOGLOBIN 24.7 pg (25.0-35.0); MEAN CORPUSCULAR HGB CONC 31.1 g/dl (31.0-37.0); MEAN PLATELET VOLUME 10.8 fl (7.0-11.0); WHITE BLOOD COUNT 3.4 10^3/ul (4.5-11.0)
[2016-06-01] MEDS ORDERED: Darbepoetin Alfa 100 mcg/ml Inj SC ONE (14:44)
--- NOTE | 2016-06-01 16:54 | CP.PCM.PN ---
Subjective - Date & Time of Evaluation Date of Evaluation: 06/01/16 Time of Evaluation: 09:55 - Subjective Subjective: Still with left ankle pain but it has gotten better, no fevers overnight. Objective - Vital Signs/Intake and Output Vital Signs (last 24 hours): Temp Pulse Resp BP Pulse Ox 97.6 F 67 18 140/75 95 06/01/16 08:48 06/01/16 08:48 06/01/16 08:48 06/01/16 08:48 06/01/16 08:48 Intake and Output: 06/01/16 06/01/16 06:59 18:59 Intake Total 600 Balance 600 - Medications Medications: Current Medications Acetaminophen (Tylenol 325mg Tab) 650 mg PO Q6 PRN PRN Reason: Pain, Mild (1-3) Amitriptyline HCl (Elavil) 10 mg PO DAILY [facility] Last Admin: 05/31/16 09:47 Dose: 10 mg Aspirin (Ecotrin) 81 mg PO DAILY [facility] Last Admin: 05/31/16 09:47 Dose: 81 mg Atorvastatin Calcium (Lipitor) 20 mg PO HS [facility] Last Admin: 05/31/16 22:23 Dose: 20 mg Benzocaine/Menthol (Cepacol Sore Throat) 1 [place] Q4 PRN PRN Reason: Sore Throat Calcium/Vitamin D (Oscal-D 250 Mg-125 Units Tab) 2 tab PO DAILY [facility] Last Admin: 05/31/16 09:48 Dose: 2 tab Clopidogrel Bisulfate (Plavix) 75 mg PO DAILY [facility] Last Admin: 05/31/16 09:48 Dose: 75 mg Furosemide (Lasix) 20 mg PO DAILY [facility] Last Admin: 05/31/16 09:48 Dose: 20 mg Gemfibrozil (Lopid) 600 mg PO BID [facility] Last Admin: 05/31/16 17:59 Dose: 600 mg Home Med (Home Med) 1 unit PO BID [facility] Last Admin: 05/31/16 17:59 Dose: 1 unit Home Med (Home Med) 1 unit PO HS [facility] Last Admin: 05/31/16 22:21 Dose: 1 unit Home Med (Home Med) 4 unit PO DAILY [facility] Last Admin: 05/31/16 10:09 Dose: 4 unit Vancomycin HCl (Vancomycin 1gm) 250 mls @ 167 mls/hr IVPB Q12H [facility] PRN Reason: Protocol Last Admin: 05/31/16 22:26 Dose: 167 mls/hr Meropenem 1g/NS 100mL IVPB (Meropenem 1g/Ns 100ml Ivpb) 100 mls @ 100 mls/hr IVPB Q8 [facility] Stop: 06/06/16 22:31 Last Admin: 06/01/16 06:58 Dose: 100 mls/hr Insulin Human Regular (Humulin R) 0 units SC ACHS ALEX PRN Reason: Protocol Last Admin: 05/31/16 22:22 Dose: Not Given Levalbuterol HCl (Xopenex) 0.63 mg IH [id number] PRN PRN Reason: Shortness of Breath Last Admin: 05/31/16 08:35 Dose: 0.63 mg Magnesium Oxide (Mag-Ox) 400 mg PO HS [facility] Last Admin: 05/31/16 22:24 Dose: 400 mg Metoprolol Tartrate (Lopressor) 12.5 mg PO HS [facility] Last Admin: 05/31/16 22:28 Dose: 12.5 mg Metoprolol Tartrate (Lopressor) 25 mg PO DAILY [facility] Mupirocin (Bactroban Ointment) 0 gm TOP BID [facility] Last Admin: 05/31/16 17:59 Dose: 1 applic Ondansetron HCl (Zofran Inj) 4 mg IVP Q6H PRN PRN Reason: Nausea/Vomiting Last Admin: 05/31/16 10:09 Dose: 4 mg Oxybutynin Chloride (Ditropan Tab) 5 mg PO DAILY [facility] Last Admin: 05/31/16 09:47 Dose: 5 mg Pantoprazole Sodium (Protonix Ec Tab) 40 mg PO ACB [facility] Last Admin: 05/31/16 09:48 Dose: 40 mg - Labs Labs: PT 12.0 Seconds (9.9-11.8) H 05/30/16 18:10 INR 1.11 (0.93-1.08) H 05/30/16 18:10 APTT 32.3 Seconds (23.7-30.8) H 05/30/16 18:10 - Constitutional Appears: Non-toxic, No Acute Distress - Head Exam Head Exam: NORMAL INSPECTION - Neck Exam Neck Exam: absent: Lymphadenopathy, Meningismus - Respiratory Exam Respiratory Exam: Decreased Breath Sounds - Cardiovascular Exam Cardiovascular Exam: +S1, +S2 - GI/Abdominal Exam GI & Abdominal Exam: Soft. 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
--- NOTE | 2016-06-01 18:34 | MRI ---
PROCEDURE: MRI of the left ankle without contrast HISTORY: pain COMPARISON: TECHNIQUE: MRI of the left ankle was performed in multiple planes using multiple pulse sequences. FINDINGS: There is subcutaneous edema on the medial side of the ankle which may represent passive edema or cellulitis. There is no evidence of abscess. There is no marrow edema. The Achilles tendon is normal. The medial and lateral ankle tendons are normal. IMPRESSION: Mild subcutaneous edema medial side of ankle
--- NOTE | 2016-06-01 19:12 | PN ---
DATE: 06/01/2016 The patient in room 374, bed 2. REASON FOR CONSULTATION: Coronary artery disease, sepsis, mantel cell lymphoma, history of angioplas ty and stent insertion, hypertension, hyperlipidemia. HISTORY OF PRESENT ILLNESS: A 76-year-old male with a past medical history significant for mantel ce ll lymphoma. The patient is getting chemotherapy and he is admitted with fever and chills. Also for the last 3 days it was found that he has redness, erythema and swelling of the left ankle and also h e had some associated pain. Denies any chest pain, shortness of breath or palpitations. The patient is known to have coronary artery disease, status post stent insertion, hypertension and hyperlipidem ia. The patient was admitted with fever and chills, but now he is feeling better. He has no fever t remigio. The patient's detailed cardiac history has been put in our consult dated 05/31/2016. The tye ent is sitting in chair without any cardiac symptoms. PHYSICAL EXAMINATION: VITAL SIGNS: Blood pressure 118/69, respirations 18, pulse , temperature 98.3. HEAD: Normocephalic. EYES: Pupils normal. Conjunctivae slightly pale. NECK: JVP low. Carotid equal. THORAX: AP diameter normal. LUNGS: Clear. CARDIOVASCULAR: S1, S2. ABDOMEN: Soft, nontender, no organomegaly. Bowel sounds normal. EXTREMITIES: No clubbing, no cyanosis. LABORATORY DATA: WBC 3.4, hemoglobin 9.9, hematocrit 31.8, platelet 174. Sodium 137, potassium 4.0, BUN 12, creatinine 0.9. Random sugar was 173. Bilirubin, AST and ALT normal. Total protein 6.5, a lbumin 3.2. DIAGNOSES: Fever with chills, sepsis, coronary artery disease, status post angioplasty and stent ins ertion; mantel cell lymphoma, getting chemotherapy; anemia and diabetes mellitus. PLAN: So far, blood cultures are negative and urine cultures are negative. The patient is afebrile. The patient's erythema and redness of the left ankle is also improving. Will continue aspirin 81 m g daily, furosemide 20 mg daily, Lipitor 20 mg daily, Lopid 600 b.i.d., metoprolol tartrate 12.5 mg d aily at bedtime and metoprolol tartrate 25 mg p.o. daily, magnesium oxide 400 mg daily, meropenem 1 g cayetano IV q.8 hours, Plavix 75 mg daily, vancomycin 1 gram IV q.12 hours. Will continue present therapy . Clinically, cardiac status is stable. Will follow with you. Thanh Holbrook MD cc: [id number] TT: 06/01/2016 19:11:24 Confirmation # [id number] Dictation # [id number]
[2016-06-01] MEDS: RAPAFLO 8 MG PO SCH (22:04)
[2016-06-01] MEDS: Magnesium Oxide 400 mg Tab UD PO SCH (22:06)
--- NOTE | 2016-06-02 01:25 | PN ---
DATE: 06/01/2016 The patient is in room 374, bed 2. A 76-year-old male, who was admitted to the hospital via the Emergency Room on 05/30 with new onset o f fevers and chills, lasting about less than 24 hours with temperature up to 102.4. The patient had been seen in the ER 2 days prior to that with the 2 bright red erythematous lesions on the medial asp ect of his left ankle, which was painful and tender. The patient was not sure what had bit him, as h e does not recall anything, but he was seen in the ER and was started on doxycycline. The patient is currently on his other cardiac medicines and Imbruvica, directed towards his mantle cell lymphoma, w [facility] is still active. The patient has stage IV mantle cell lymphoma with evidence of recurrence in t PET/CT scan in the neck and mediastinum, retroperitoneum, and in the groin. A groin biopsy has re -established the diagnosis of recurrence of his mantle cell lymphoma. The patient, since admission, was started on broad spectrum antibiotics including vancomycin and Azactam, and he is still on doxycy [place] and has been assessed by Dr. Marshall, ____ specialist, and we have ordered procalcitonin levels o n him, which are negative, and pending cultures, which are still negative at 24 hours. Subjectively, the patient feels slightly better with the left ankle pain. It has gotten better, but the lesions a re head still operator. He had no fevers or chills overnight. VITAL SIGNS: On physical exam the patient is examined by the bedside. He is sitting out of bed in he chair. T-max is 98.4, pulse is 67, respirations 18, blood pressure is ____/75, pulse ox is 98% on room air. CURRENT MEDICATIONS: Reviewed, which are unchanged. As I mentioned, he is still on broad spectrum a ntibiotics. PHYSICAL EXAMINATION: GENERAL: The patient is awake, alert, and oriented, in no acute distress. HEENT: Head is normocephalic, atraumatic. Conjunctivae pale. Sclerae are anicteric. Pupils are eq ually reactive to light and accommodation. Examination of the oropharynx reveals no oropharyngeal le sions. NECK: Supple. There is no adenopathy. No jugular venous distention noted. LUNGS: Clear to percussion and auscultation. HEART: Reveals PMI to be in the 5th intercostal space inside the midclavicular line. S1 and S2 are normal. No gallop or murmur is heard. ABDOMEN: Soft, nontender. No rebound, rigidity, or guarding is noted. Liver and spleen are not pal pable. EXTREMITIES: Lower extremities reveal the 2 erythematous areas which appear like almost subcutaneous nodules similar to erythema nodosum except the site is unlikely on the medial aspect of the left ank le, which is still slightly tender, though the redness appears to be abating. The patient is on topi shahab Bactroban therapy as well for those lesions, in addition to the IV antibiotics. NEUROLOGIC: There are no focal deficits at this time. ASSESSMENT NOTES AND PLAN: The patient has stage IV mantle cell lymphoma, currently on active chemot herapy with Imbruvica 4 capsules a day. Along with that, he has been Rituxan once a month. He is ge tting IVIG every 3 weeks. I have spoken to ID. Spoke to the patient's , who is a physician in a hospital. We would have to definitely consider strongly left ankle infection. Rule out skin struct ure infection and any underlying issues. An MRI of the left foot and ankle has been requested. The patient has a history of bilateral lower lobe healthcare-associated pneumonia with stenotrophomonas c linically improved since treatment, history of methicillin-sensitive Staphylococcus aureus, and pseud omembranous tracheobronchitis, history of Shagufta parapsilosis fungemia, probably source of the Port- A-Cath, which was removed, and now patient has a new port in the chest wall. Coronary artery disease , status post multiple stents, history of benign prostatic hyperplasia, history of multiple episodes of urinary tract infection. The patient is also slightly anemic. We will give him a dose of Aranesp. We will continue topical t herapy for the left ankle. Will agree to review the MRI studies when available, which is being done today. Continue vancomycin and meropenem for now. ESR and CRP are elevated. Procalcitonin studies were reported as normal. Chest x-ray shows no new infiltrates. Will follow on these lesions. I alyce l get vascular opinion as well. The question is whether we need to biopsy the lesion on the ankle if we do not have clear cut answers. Meanwhile, the patient has not had any spikes of temperature whil e in the hospital. Routine post exam instructions have been given to the patient. We will follow th e patient very carefully. Alie Myers MD cc: [id number] TT: 06/02/2016 00:49:17 Confirmation # [id number] Dictation # [id number] tn 06/02/2016 00:25:28
[2016-06-02 05:37] LABS: ALB/GLOB RATIO 0.9 (1.1-1.8); ALKALINE PHOSPHATASE 83 U/L (38-133); ALT/SGPT 31 U/L (7-56); AST/SGOT 25 U/L (15-59); BILIRUBIN,TOTAL 0.5 mg/dL (0.2-1.3); BLOOD UREA NITROGEN 17 mg/dL (7-21); CALCIUM 8.2 mg/dL (8.4-10.5); CARBON DIOXIDE 27 mmol/L (21-33); CHLORIDE 102 mmol/L (95-110); GFR AFRICAN-AMERICAN > 60; GLUCOSE,RANDOM 112 mg/dL (70-110); POTASSIUM 3.9 mmol/L (3.6-5.0); SODIUM 137 mmol/L (132-148); TOTAL PROTEIN 5.9 g/dL (5.8-8.3)
[2016-06-02 05:38] LABS: BASO # 0.07 K/mm3 (0.0-2.0); BASO % 1.8 % (0.0-3.0); EOS # 0.3 (0.0-0.7); EOS % 8.3 % (1.5-5.0); GRAN # 1.22 (1.4-6.5); GRAN % 31.5 % (50.0-68.0); HEMATOCRIT 29.3 % (42.0-52.0); LYMPH # 1.9 (1.2-3.4); LYMPH % 48.6 % (22.0-35.0); MEAN CELL VOLUME 77.9 fL (80.0-105.0); MEAN CORPUSCULAR HEMOGLOBIN 24.7 pg (25.0-35.0); MEAN CORPUSCULAR HGB CONC 31.7 g/dl (31.0-37.0); MEAN PLATELET VOLUME 9.4 fl (7.0-11.0); MONO # 0.4 (0.1-0.6); MONO % 9.8 % (1.0-6.0); PLATELET COUNT 157 10^3/uL (120.0-450.0); RED CELL DISTRIBUTION WIDTH 16.9 % (11.5-14.5); WHITE BLOOD COUNT 3.9 10^3/ul (4.5-11.0)
[2016-06-02 06:32] LABS: ADD MANUAL DIFF? NO
[2016-06-02] MEDS: Meropenem 1g/NS 100mL IVPB 100 ML IVPB SCH ×2 (06:47→13:39)
[2016-06-02] MEDS: Levalbuterol 0.63 MG/3 ML Inhal Soln UD IH PRN (08:03)
[2016-06-02] MEDS: IMBRUVICA 140 MG PO SCH (09:11)
[2016-06-02] MEDS: RANEXA 500 MG PO SCH ×2 (09:12→17:08)
[2016-06-02] MEDS: Insulin Regular 1 UNITS/0.01 ML ML SC SCH ×3 (09:12→17:10)
[2016-06-02] MEDS: Calcium-Vit D 250 mg-125 Units Tab UD PO SCH (09:14)
[2016-06-02] MEDS: Pantoprazole 40 mg EC Tab PO SCH (09:15)
[2016-06-02] MEDS: Vancomycin 1gm in NS 250ml 250 ML IVPB SCH ×2 (09:18→13:39)
--- NOTE | 2016-06-02 13:44 | CP.PCM.PN ---
Subjective - Date & Time of Evaluation Date of Evaluation: 06/02/16 Time of Evaluation: 10:00 - Subjective Subjective: Less pain in the foot, no fevers, not in distress. Objective - Vital Signs/Intake and Output Vital Signs (last 24 hours): Temp Pulse Resp BP Pulse Ox 97 F L 66 19 104/63 95 06/02/16 08:11 06/02/16 09:14 06/02/16 08:11 06/02/16 09:14 06/02/16 08:11 Intake and Output: 06/02/16 06/02/16 06:59 18:59 Intake Total 640 Output Total 450 Balance 190 - Medications Medications: Current Medications Acetaminophen (Tylenol 325mg Tab) 650 mg PO Q6 PRN PRN Reason: Pain, Mild (1-3) Amitriptyline HCl (Elavil) 10 mg PO DAILY [facility] Last Admin: 06/02/16 09:11 Dose: 10 mg Aspirin (Ecotrin) 81 mg PO DAILY [facility] Last Admin: 06/02/16 09:10 Dose: 81 mg Atorvastatin Calcium (Lipitor) 20 mg PO HS [facility] Last Admin: 06/01/16 22:04 Dose: 20 mg Benzocaine/Menthol (Cepacol Sore Throat) 1 [place] Q4 PRN PRN Reason: Sore Throat Calcium/Vitamin D (Oscal-D 250 Mg-125 Units Tab) 2 tab PO DAILY [facility] Last Admin: 06/02/16 09:14 Dose: 2 tab Clopidogrel Bisulfate (Plavix) 75 mg PO DAILY [facility] Last Admin: 06/02/16 09:15 Dose: 75 mg Furosemide (Lasix) 20 mg PO DAILY [facility] Last Admin: 06/02/16 09:13 Dose: 20 mg Gemfibrozil (Lopid) 600 mg PO BID [facility] Last Admin: 06/02/16 09:13 Dose: 600 mg Home Med (Home Med) 1 unit PO BID [facility] Last Admin: 06/02/16 09:12 Dose: 1 unit Home Med (Home Med) 1 unit PO HS [facility] Last Admin: 06/01/16 22:04 Dose: 1 unit Home Med (Home Med) 4 unit PO DAILY [facility] Last Admin: 06/02/16 09:11 Dose: 4 unit Vancomycin HCl (Vancomycin 1gm) 250 mls @ 167 mls/hr IVPB Q12H [facility] PRN Reason: Protocol Last Admin: 06/02/16 09:18 Dose: 167 mls/hr Meropenem 1g/NS 100mL IVPB (Meropenem 1g/Ns 100ml Ivpb) 100 mls @ 100 mls/hr IVPB Q8 [facility] Stop: 06/06/16 22:31 Last Admin: 06/02/16 06:47 Dose: 100 mls/hr Insulin Human Regular (Humulin R) 0 units SC ACHS [facility] PRN Reason: Protocol Last Admin: 06/02/16 09:12 Dose: Not Given Levalbuterol HCl (Xopenex) 0.63 mg IH [id number] PRN PRN Reason: Shortness of Breath Last Admin: 06/02/16 08:03 Dose: 0.63 mg Magnesium Oxide (Mag-Ox) 400 mg PO HS [facility] Last Admin: 06/01/16 22:06 Dose: 400 mg Metoprolol Tartrate (Lopressor) 12.5 mg PO HS [facility] Last Admin: 06/01/16 22:04 Dose: 12.5 mg Metoprolol Tartrate (Lopressor) 25 mg PO DAILY [facility] Last Admin: 06/02/16 09:14 Dose: 25 mg Mupirocin (Bactroban Ointment) 0 gm TOP BID [facility] Last Admin: 06/02/16 09:07 Dose: 1 applic Ondansetron HCl (Zofran Inj) 4 mg IVP Q6H PRN PRN Reason: Nausea/Vomiting Last Admin: 06/02/16 09:19 Dose: 4 mg Oxybutynin Chloride (Ditropan Tab) 5 mg PO DAILY [facility] Last Admin: 06/02/16 09:10 Dose: 5 mg Pantoprazole Sodium (Protonix Ec Tab) 40 mg PO ACB [facility] Last Admin: 06/02/16 09:15 Dose: 40 mg - Labs Labs: 06/02/16 05:20 06/02/16 05:20 PT 12.0 Seconds (9.9-11.8) H 05/30/16 18:10 INR 1.11 (0.93-1.08) H 05/30/16 18:10 APTT 32.3 Seconds (23.7-30.8) H 05/30/16 18:10 - Constitutional Appears: Non-toxic, No Acute Distress - Head Exam Head Exam: NORMAL INSPECTION - Neck Exam Neck Exam: absent: Lymphadenopathy, Meningismus - Respiratory Exam Respiratory Exam: Decreased Breath Sounds - Cardiovascular Exam Cardiovascular Exam: +S1, +S2 - GI/Abdominal Exam GI & Abdominal Exam: Soft. absent: Tenderness Assessment and Plan - Assessment and Plan (Free Text) Plan: Assessment Consider left ankle skin and skin structure infection history of bilateral lower lobe healthcare-associated pneumonia with Stenotrophomonas, clinically improved and S/P treatment history of MSSA and Pseudomonas tracheobronchitis history of Shagufta parapsilosis fungemia, probable source is the port-a-cath - S /P removal; now with new right anterior chest wall port-a-cath mantle cell lymphoma on chemotherapy coronary artery disease benign prostatic hyperplasia dyslipidemia history of urinary tract infection Plan continue Vancomycin and Meropenem (day 3); blood cx negative; ESR and CRP are elevated; CXR is benign;MRI of the ankle did not show abscess formation -since he is improving well, will target 5-7 days of therapy Will continue to follow clinically
--- NOTE | 2016-06-02 14:21 | PN ---
DATE: 06/02/2016 The patient in room 374, bed 2. REASON FOR CONSULTATION AND FOLLOWUP: Coronary artery disease, sepsis, mantle cell lymphoma, history of angioplasty and stent insertion, hypertension, hyperlipidemia. HISTORY OF PRESENT ILLNESS: The patient is a 76-year-old male with past medical history significant for mantle cell lymphoma. The patient was getting chemotherapy and is admitted with fever and chills . Also, for the last 3 days it was found that he has redness, erythema and swelling of the left ankl e and some associated pain. Denies any chest pain, shortness of breath, or palpitation. The patient is a known case of coronary artery disease, status post stent insertion; hypertension, hyperlipidemi a. The patient is sitting comfortably now without any chest pain, shortness of breath or palpitation s. PHYSICAL EXAMINATION: VITAL SIGNS: Blood pressure 104/63, respirations 19, pulse 66, temperature 97. HEAD: Normocephalic. EYES: Pupils normal. Conjunctivae slightly pale. NECK: JVP low. Carotid equal. THORAX: AP diameter normal. LUNGS: Clear. CARDIOVASCULAR: S1, S2. ABDOMEN: Soft. No tenderness, no organomegaly. Bowel sounds normal. EXTREMITIES: No clubbing, no cyanosis. LABORATORY DATA: WBC 3.9, hemoglobin 9.3, hematocrit 29.3, platelets 157. Sodium 137, potassium 3.9 , BUN 17, creatinine 0.9, random glucose 112, calcium 8.2. AST, ALT normal. Total protein 5.9, albu min 2.8. DIAGNOSES: Fever with chills, sepsis; coronary artery disease, status post angioplasty and stent ins ertion; mantle cell lymphoma, getting chemotherapy; anemia, diabetes mellitus. PLAN: The patient is getting aspirin 81 mg daily, Elavil 10 mg daily, furosemide 20 mg daily, Lipito r 20 mg daily, Lopid 600 b.i.d., metoprolol tartrate 12.5 p.o. at bedtime, metoprolol tartrate 25 mg p.o. daily, mag oxide 400 mg p.o. at bedtime. The patient on meropenem 1 gram IV q. 8 hourly, Plavix 75 daily, Protonix 40 daily, vancomycin 1 gram IV q. 12 hours. Blood cultures and urine cultures [place] ve been negative. Will continue present therapy. Will follow with you. Thanh Holbrook MD cc: [id number] TT: 06/02/2016 14:19:54 Confirmation # [id number] Dictation # [id number] mn
[2016-06-02 17:26] VITALS: BP 116/65; PULSE 60; RESP 18; TEMP 98.4; O2SAT 98
--- NOTE | 2016-06-03 00:04 | DS ---
HOSPITAL COURSE: The patient was admitted on 05/30/2016 through the Emergency Room with a chief compl aint of fevers and chills, the temperature going up to 102.7. Prior to that, the patient has been in the ER 2 days before with pain and tenderness over the medial malleolus of his left foot/left ankle, in which there were 2 erythematous lesions, which were concerning for infection. The patient was se en and put empirically on doxycycline and discharged after her workup, and now is admitted with fever s and chills. The patient was started on broad-spectrum antibiotics with vancomycin and Merrem, and the patient has been gradually improving. He has been continued on his Imbruvica 4 capsules daily, e ach capsule is 140 mg for his active mantle cell lymphoma and he is also on monthly Rituxan. During the hospital stay, blood cultures have been negative. I discussed the case with Dr. Marshall, the ID ecialist, who felt that despite the negative cultures, with a clinical finding of infection or cellul itis of the ankles, more consistent with cellulitis based on physical findings and the MRI showing a soft tissue inflammation without any extension to the bone, especially with the patient being immunoc ompromised, we should give a total of 7 days of IV antibiotics. The patient's current white count is 3.9, hemoglobin of 9.3, hematocrit 29, platelet count of 157,000. The patient is being discharged a nd transferred to [facility] for deconditioning, continuation of the IV antibiotics, and monitoring him car efully. Hopefully, after he completes his antibiotics, we will be able to discharge him and continue further treatments as an outpatient. DISCHARGE DIAGNOSES: 1. Cellulitis, left ankle, in the background history of having active mantle cell lymphoma stage IV, on chemotherapy with Rituxan given monthly, Imbruvica daily. 2. History of coronary artery disease, status post multiple stents. 3. History of chronic obstructive pulmonary disease. 4. History of lung cancer status post surgery of the right lung. 5. Immunocompromised on antibiotics. DIET: The patient has been kept on a heart healthy diet. His sugars will be monitored, as they are borderline, and get elevated whenever institute steroids or any other medications directed towards hi s lymphoma. 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 I have discussed my findings in detail with the patient and his , Dr. Marques as well. Alie Myers MD cc: [id number] TT: 06/03/2016 00:04:32 vn
== END 2016-06-02 16:45 | DRG 841 ==
LOC: ED 17:55 → ERH 19:22 → 3RSO 20:36
PROVIDERS: ADMIT Family Medicine; ATTEND Family Medicine
PROC: 3E0F7GC Introduction of Other Therapeutic Substance into Respiratory Tract, Via Natural or Artificial Opening (ICD-10-PCS; principal; 2016-05-31)
DX: C83.18 Mantle cell lymphoma, lymph nodes of multiple sites (principal); L03.116 Cellulitis of left lower limb; J44.9 Chronic obstructive pulmonary disease, unspecified; E11.9 Type 2 diabetes mellitus without complications; I10 Essential (primary) hypertension; D64.9 Anemia, unspecified; E78.5 Hyperlipidemia, unspecified; I25.10 Atherosclerotic heart disease of native coronary artery without angina pectoris; N40.0 Benign prostatic hyperplasia without lower urinary tract symptoms; Z79.899 Other long term (current) drug therapy; Z85.118 Personal history of other malignant neoplasm of bronchus and lung; Z87.440 Personal history of urinary (tract) infections; Z95.5 Presence of coronary angioplasty implant and graft; Z79.02 Long term (current) use of antithrombotics/antiplatelets

== ENCOUNTER 2016-06-02 16:45 | Inpatient (IN) | payer OTHER ==
[2016-06-02] MEDS ORDERED: Levalbuterol 0.63 MG/3 ML Inhal Soln UD IH PRN (19:43)
[2016-06-02] MEDS ORDERED: Benzocaine/Menthol (Cepacol) Lozenge MT PRN (19:54)
[2016-06-02] MEDS ORDERED: Levalbuterol 1.25 MG/3 ML Inhal Soln UD IH PRN (20:22)
[2016-06-02] MEDS: Magnesium Oxide 400 mg Tab UD PO SCH (21:42)
[2016-06-02] MEDS: RAPAFLO 8 MG PO SCH (21:45)
[2016-06-02] MEDS ORDERED: Influenza Vaccine 45 MCG/0.5 ml IM ONE (21:46)
[2016-06-02] MEDS ORDERED: Pneumococcal 23-Valent Vaccine IM ONE (21:46)
[2016-06-02 21:47] VITALS: BMI 27.5
[2016-06-02] MEDS ORDERED: IBRUTINIB 560 MG PO SCH (22:00)
[2016-06-02] MEDS ORDERED: Meropenem 1g/NS 100mL IVPB 100 ML IVPB SCH (22:00)
[2016-06-02] MEDS: Insulin Reg-LOW-Coverage SC SCH (22:43)
[2016-06-03] MEDS: Vancomycin 1gm in NS 250ml 250 ML IVPB SCH ×2 (05:47→17:46)
[2016-06-03] MEDS: Pantoprazole 40 mg EC Tab PO SCH (05:49)
[2016-06-03] MEDS: Meropenem 1 GM in Sodium Chloride 0.9% 100 ML IVPB SCH ×3 (05:52→21:41)
[2016-06-03] MEDS: Insulin Reg-LOW-Coverage SC SCH ×4 (06:32→22:21)
[2016-06-03 06:50] LABS: ADD MANUAL DIFF? NO
[2016-06-03 06:55] LABS: BASO # 0.08 K/mm3 (0.0-2.0); BASO % 1.8 % (0.0-3.0); EOS # 0.2 (0.0-0.7); EOS % 5.1 % (1.5-5.0); GRAN # 1.37 (1.4-6.5); GRAN % 31.6 % (50.0-68.0); HEMATOCRIT 30.6 % (42.0-52.0); LYMPH # 2.2 (1.2-3.4); LYMPH % 49.5 % (22.0-35.0); MEAN CELL VOLUME 77.3 fL (80.0-105.0); MEAN CORPUSCULAR HEMOGLOBIN 24.7 pg (25.0-35.0); MEAN PLATELET VOLUME 10.2 fl (7.0-11.0); MONO # 0.5 (0.1-0.6); PLATELET COUNT 176 10^3/uL (120.0-450.0); RED CELL DISTRIBUTION WIDTH 16.7 % (11.5-14.5); WHITE BLOOD COUNT 4.3 10^3/ul (4.5-11.0)
[2016-06-03 07:04] LABS: ALB/GLOB RATIO 0.9 (1.1-1.8); ALKALINE PHOSPHATASE 87 U/L (38-133); ALT/SGPT 22 U/L (7-56); AST/SGOT 33 U/L (15-59); BILIRUBIN,TOTAL 0.7 mg/dL (0.2-1.3); BLOOD UREA NITROGEN 17 mg/dL (7-21); CALCIUM 8.4 mg/dL (8.4-10.5); CARBON DIOXIDE 29 mmol/L (21-33); CHLORIDE 100 mmol/L (98-107); GFR AFRICAN-AMERICAN > 60; GLUCOSE,RANDOM 113 mg/dL (70-110); POTASSIUM 3.8 mmol/L (3.6-5.0); SODIUM 135 mmol/L (132-148); TOTAL PROTEIN 6.4 g/dL (5.8-8.3)
[2016-06-03] MEDS: IBRUTINIB 560 MG PO SCH (10:18)
[2016-06-03] MEDS: Calcium-Vit D 250 mg-125 Units Tab UD PO SCH (10:20)
[2016-06-03] MEDS: RANEXA 500 MG PO SCH ×2 (10:21→17:46)
--- NOTE | 2016-06-03 15:49 | CP.PCM.CON ---
History of Present Illness - History of Present Illness History of Present Illness: 76 year old male with PMH of mantle cell lymphoma with history of chemotherapy, coronary artery disease, benign prostatic hyperplasia, dyslipidemia, history of urinary tract infection, history of candidemia, history of bilateral pneumonia was initially admitted to [facility] because of fever associated with left ankle swelling. He was noted to have left ankle cellulitis and has been improving on IV antibiotics. Prior to the admission he was on Doxycycline for the left ankle cellulitis (medial side). He is now transferred to [facility] for continued medical therapy and physical rehabilitation. Infectious diseases consult is requested to re-evaluate his antibiotic management. Currently the patient is very comfortable on a chair, not in distress, less pain in the ankle , less swelling. He denies headache or dizziness, no abdominal pain, no diarrhea , no dysuria, no night sweats, no dysphagia or sore throat, no pain at the chest wall port area, no chest pain, rhinorrhea, no cough or SOB. Social history: patient does not smoke, no alcohol abuse or illicit drug use; he lives with his , has not traveled outside of [place] in the past 3 months Review of Systems - Review of Systems All systems: reviewed and no additional remarkable complaints except (as per HPI ) Past Patient History - Infectious Disease Hx of Infectious Diseases: None - Tetanus Immunizations Tetanus Immunization: Unknown - Past Medical History & Family History Past Medical History?: Yes Past Family History: Reviewed and not pertinent - Past Social History Smoking Status: Never Smoked Alcohol: None Drugs: Denies Home Situation {Lives}: With Family - CARDIAC Hx Cardiac Disorders: Yes Hx Congestive Heart Failure: No Hx Hypertension: Yes - PULMONARY Hx Pneumonia: No - NEUROLOGICAL HX Cerebrovascular Accident: No - HEENT Hx HEENT Problems: Yes (wears eyeglasses) Hx Deafness: Yes Other/Comment: 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, uses a hearing aid in right ear also - RENAL Hx Renal Failure: No - ENDOCRINE/METABOLIC Hx Diabetes Mellitus Type 1: No Hx Diabetes Mellitus Type 2: No Hx Hypothyroidism: No - HEMATOLOGICAL/ONCOLOGICAL Hx Cancer: No - INTEGUMENTARY Hx Dermatological Problems: No - MUSCULOSKELETAL/RHEUMATOLOGICAL Hx Falls: Yes - GASTROINTESTINAL Hx Gastrointestinal Disorders: No - GENITOURINARY/GYNECOLOGICAL Hx Genitourinary Disorders: Yes (FREQUENCY,H/O UTI) Hx Reproductive Disorders: Yes (BPH) - PSYCHIATRIC Hx Emotional Abuse: No Hx Physical Abuse: No Hx Substance Use: No - SURGICAL HISTORY Hx Orthopedic Surgery: Yes - ANESTHESIA Hx Anesthesia: Yes Hx Anesthesia Reactions: No Hx Malignant Hyperthermia: No Meds Allergies/Adverse Reactions: Allergies Allergy/AdvReac Type Severity Reaction Status Date / Time azithromycin Allergy Severe ANGIOEDEMA Verified 06/02/16 20:20 erythromycin base Allergy Severe ANGIOEDEMA Verified 06/02/16 20:20 Penicillins Allergy Severe ANAPHYLAXIS Verified 06/02/16 20:20 cephalexin monohydrate Allergy Intermediate RASH Verified 06/02/16 20:20 [From Keflex] gabapentin Allergy Intermediate RASH Verified 06/02/16 20:20 pregabalin Allergy Intermediate RASH Verified 06/02/16 20:20 Sulfa (Sulfonamide Allergy Intermediate RASH Verified 06/02/16 20:20 Antibiotics) nitro paste Allergy Intermediate DIZZINESS/H Uncoded 06/02/16 17:39 YPOTENSION - Medications Medications: Current Medications Acetaminophen (Tylenol 325mg Tab) 650 mg PO Q6H PRN; Protocol PRN Reason: Pain, Mild (1-3) Amitriptyline HCl (Elavil) 10 mg PO DAILY [facility] PRN Reason: Protocol Aspirin (Ecotrin) 81 mg PO DAILY [facility] PRN Reason: Protocol Atorvastatin Calcium (Lipitor) 20 mg PO HS [facility] PRN Reason: Protocol Last Admin: 06/02/16 21:40 Dose: 20 mg Benzocaine/Menthol (Cepacol Sore Throat) 1 [place] MT Q4H PRN; Protocol PRN Reason: Sore Throat Calcium/Vitamin D (Oscal-D 250 Mg-125 Units Tab) 2 tab PO DAILY [facility] PRN Reason: Protocol Clopidogrel Bisulfate (Plavix) 75 mg PO DAILY [facility] PRN Reason: Protocol Furosemide (Lasix) 20 mg PO DAILY [facility] PRN Reason: Protocol Gemfibrozil (Lopid) 600 mg PO BID [facility] PRN Reason: Protocol Vancomycin HCl (Vancomycin 1gm) 250 mls @ 167 mls/hr IVPB 0600,1800 [facility] PRN Reason: Protocol Insulin Human Regular (Humulin R Low) 0 units SC ACHS [facility] PRN Reason: Protocol Last Admin: 06/02/16 22:43 Dose: Not Given Levalbuterol HCl (Xopenex) 1.25 mg IH Q6 PRN; Protocol PRN Reason: Cough and congestion Magnesium Oxide (Mag-Ox) 400 mg PO [facility] PRN Reason: Protocol Last Admin: 06/02/16 21:42 Dose: 400 mg Metoprolol Tartrate (Lopressor) 12.5 mg PO [facility] PRN Reason: Protocol Last Admin: 06/02/16 21:41 Dose: 12.5 mg Metoprolol Tartrate (Lopressor) 25 mg PO DAILY [facility] PRN Reason: Protocol Mupirocin (Bactroban Ointment) 0 gm TOP BID [facility] PRN Reason: Protocol Non-Formulary Medication (Imbruvica) 560 mg PO [facility] Last Admin: 06/02/16 21:44 Dose: Not Given Non-Formulary Medication (Ranexa) 500 mg PO BID [facility] Non-Formulary Medication (Rapaflo) 8 mg PO [facility] Last Admin: 06/02/16 21:45 Dose: 8 mg Ondansetron HCl (Zofran Inj) 4 mg IVP Q6H PRN; Protocol PRN Reason: Nausea/Vomiting Oxybutynin Chloride (Ditropan Tab) 5 mg PO DAILY [facility] PRN Reason: Protocol Pantoprazole Sodium (Protonix Ec Tab) 40 mg PO 0630 [facility] PRN Reason: Protocol Physical Exam - Constitutional Appears: Non-toxic, No Acute Distress - Head Exam Head Exam: NORMAL INSPECTION - ENT Exam ENT Exam: Mucous Membranes Moist - Neck Exam Neck exam: Negative for: Lymphadenopathy, Meningismus - Respiratory Exam Respiratory Exam: Decreased Breath Sounds - Cardiovascular Exam Cardiovascular Exam: +S1, +S2 - GI/Abdominal Exam GI & Abdominal Exam: Soft. absent: Tenderness - Extremities Exam Additional comments: left ankle with decreased swelling on the medial side, decreased erythema and improved tenderness Results - Vital Signs Recent Vital Signs: Last Vital Signs Temp 97.9 F 06/02/16 21:35 Pulse 70 06/02/16 21:35 Resp 18 06/02/16 21:35 BP 157/89 H 06/02/16 21:41 Pulse Ox - Labs Result Diagrams: 06/03/16 06:30 06/03/16 06:30 Assessment & Plan - Assessment and Plan (Free Text) Plan: Assessment Consider left ankle skin and skin structure infection (Cellulitis, non-purulent) , clinically improving history of bilateral lower lobe healthcare-associated pneumonia with Stenotrophomonas, clinically improved and S/P treatment history of MSSA and Pseudomonas tracheobronchitis history of Shagufta parapsilosis fungemia, probable source is the port-a-cath - S /P removal; now with new right anterior chest wall port-a-cath mantle cell lymphoma on chemotherapy coronary artery disease benign prostatic hyperplasia dyslipidemia history of urinary tract infection Plan continue Vancomycin and Meropenem (day 4); blood cx negative; ESR and CRP are elevated; CXR is benign; MRI of the ankle did not show abscess formation - since he is improving well, will target 5-7 days of therapy - discussed with Dr. Myers Will continue to follow clinically
--- NOTE | 2016-06-03 20:33 | CON ---
DATE: 06/03/2016 The patient is in room 314, bed 1. REASON FOR CONSULTATION AND FOLLOWUP: Coronary artery disease, sepsis, mantle cell lymphoma, history of angioplasty and stent insertion for coronary artery disease, hypertension, hyperlipidemia. HISTORY OF PRESENT ILLNESS: This is a 76-year-old male with a past medical history significant for m itral cell lymphoma, is getting chemotherapy and was admitted with fever and chills and found to have redness on the left ankle, probably cellulitis. The patient has a history of coronary artery diseas e status post stent insertion, hypertension and hyperlipidemia. The patient has been getting chemoth erapy for mantel cell lymphoma. The patient was admitted with fever and chills and was admitted to [facility] medical floor. He was treated and he has got better and now he is transferred to the transitional care unit for deconditioning and physical therapy. The patient denies any chest pain, shortness of breath, or palpitations. PAST MEDICAL HISTORY: Is significant for multiple stents for coronary artery disease. Also, the pat ient had a rotoablation for coronary artery disease, mantel cell lymphoma, getting chemotherapy. The last stress test was 07/07/2014 and was negative. THE PATIENT'S PREVIOUS CARDIAC HISTORY: The patient had first stent put in in 2011, then the patient had in-stent restenosis and he underwent rotoablation for this on 11/09/2011, at [facility] ter followed by the patient with in-stent restenosis. The patient underwent PTCA of LAD with rotoabl ation and a drug-eluting stent in 09/07/2013. The patient's last stress test in 06/07/2014 did not s how any ischemia. Echo 09/07/2014 showed ejection fraction of 55%, [id number] mitral regurgitatio n, mild tricuspid regurg, mild aortic wall stenosis. RV systolic pressure of 45 mmHg. PERSONAL HISTORY: The patient denies smoking, denies drinking. ALLERGIES: THE PATIENT HAS MANY ALLERGIES INCLUDING AZITHROMYCIN, ERYTHROMYCIN, PENICILLIN, CEPHALEX IN, GABAPENTIN, LYRICA, SULFONAMIDES AND NITRO PASTE. HOME MEDICATIONS: Included Ranexa 500 b.i.d., aspirin 81 mg daily, oxybutynin 5 mg daily, Xopenex q. 6 hours p.r.n., 1.25 mg a day nebulizer therapy; Tylenol p.r.n., insulin coverage as needed, metoprol ol 25 daily, Protonix 40 daily, MiraLax 1 packet daily. REVIEW OF SYSTEMS: All the systems were reviewed. Positive mentioned in the history, others were ne gative. PHYSICAL EXAMINATION: VITAL SIGNS: Blood pressure 128/67, respirations 20, pulse 63, temperature 97.9. HEENT: Head is normocephalic. Eyes: Pupils normal. Conjunctivae slightly pale. NECK: JVP low. Carotid equal. THORAX: AP diameter normal. LUNGS: Clear. CARDIOVASCULAR: S1, S2. ABDOMEN: Soft, nontender, no organomegaly. EXTREMITIES: No clubbing, no cyanosis. LABORATORY DATA: WBC 4.3, hemoglobin 9.8, hematocrit 30.6, platelets 176. Sodium 135, potassium 3.8 , BUN 17, creatinine 0.9, calcium 8.4, bilirubin 0.7. AST and ALT normal. Alkaline phosphatase is 8 7, total protein 6.4, albumin 3.1. DIAGNOSES: Sepsis, coronary artery disease, status post angioplasty and stent insertion, mantel cell lymphoma, getting chemotherapy; anemia, diabetes mellitus, cellulitis left ankle, coronary artery di sease status post stent insertion. PLAN: The patient will continue Ranexa 500 b.i.d., aspirin 81 mg daily, furosemide 20 mg p.o. daily, Lipitor 20 mg daily, Lopid 600 mg b.i.d., metoprolol 12.5 mg at bedtime, metoprolol 25 mg p.o. daily , mag oxide 400 mg p.o. at bedtime, Merrem IV 1 gram q.8 hourly, Plavix 75 mg daily, Protonix 40 heladio y, vancomycin 1 gram IV b.i.d. Will continue present therapy and will continue physical therapy. Cl inically, cardiac status is stable. Will follow with you. Thanh Holbrook MD cc: [id number] TT: 06/03/2016 20:32:58 Confirmation # [id number] Dictation # [id number] dn
[2016-06-03] MEDS: Magnesium Oxide 400 mg Tab UD PO SCH (21:30)
[2016-06-03] MEDS: RAPAFLO 8 MG PO SCH (21:31)
[2016-06-04] MEDS: Vancomycin 1gm in NS 250ml 250 ML IVPB SCH ×2 (05:18→18:37)
[2016-06-04] MEDS: Meropenem 1 GM in Sodium Chloride 0.9% 100 ML IVPB SCH ×3 (05:18→22:47)
[2016-06-04] MEDS: Pantoprazole 40 mg EC Tab PO SCH (06:09)
[2016-06-04] MEDS: Insulin Reg-LOW-Coverage SC SCH ×4 (06:35→22:25)
--- NOTE | 2016-06-04 09:56 | PN ---
DATE: 06/04/2016 The patient is in room 314, bed 1. REASON FOR CONSULTATION AND FOLLOWUP: Coronary artery disease, sepsis, mantle cell lymphoma, history of angioplasty and stent insertion for coronary artery disease, hypertension, hyperlipidemia. HISTORY OF PRESENT ILLNESS: The patient is a 76-year-old male with past medical history significant for mantle cell lymphoma, is getting chemotherapy and was admitted with fever and chills and found to have redness on the left ankle, probably cellulitis. The patient is now feeling better and he is in transitional care unit for physical therapy and deconditioning. The patient known case of coronary artery disease, status post stent insertion, hypertension, hyperlipidemia. The patient is asymptomat ic from cardiac point of view. PHYSICAL EXAMINATION: VITAL SIGNS: Blood pressure 106/59, respirations 20, pulse 64, temperature 97.9. HEAD: Normocephalic. EYES: Pupils normal. Conjunctivae slightly pale. NECK: JVP low. Carotid equal. THORAX: AP diameter normal. LUNGS: Clear. CARDIOVASCULAR: S1, S2. Soft systolic murmur. ABDOMEN: Soft, no tenderness, no organomegaly. EXTREMITIES: No clubbing, no cyanosis. Less redness on left ankle. LABORATORY DATA: WBC 4.3, hemoglobin 9.8, hematocrit 30.6, platelets 176. Sodium 135, potassium 3.8 , BUN 17, creatinine 0.9, random glucose 113. AST, ALT normal. Total protein, albumin normal. DIAGNOSES: Sepsis, coronary artery disease, status post angioplasty and stent insertion, mantle cell lymphoma, getting chemotherapy, anemia, diabetes mellitus, cellulitis left ankle, coronary artery di sease, status post stent insertion. PLAN: The patient clinically is stable from cardiac point of view. We will continue physical therap y and continue present medications, Ranexa 500 b.i.d., aspirin 81 mg daily, furosemide 20 mg p.o. [place], Lipitor 20 mg p.o. daily, Lopid 600 b.i.d., metoprolol tartrate 12.5 mg p.o. daily in the evening and metoprolol tartrate 25 mg p.o. daily, mag oxide 400 mg p.o. daily, Merrem IV 1 gram q. 8 hours, Plavix 75 mg daily, Protonix 40 daily, vancomycin 1 gram IV b.i.d. We will continue to follow with y ou. Thanh Holbrook MD cc: [id number] TT: 06/04/2016 09:55:03 Confirmation # [id number] Dictation # [id number] en
--- NOTE | 2016-06-04 10:31 | PN ---
DATE: 06/04/2016 The patient seen earlier today in room 314. The patient had an uneventful night. No fevers and no c hills. PHYSICAL EXAMINATION: VITAL SIGNS: Temperature is 97, blood pressure is 106/59, respiratory rate 20, heart rate of 63. HEENT: Unremarkable. NECK: Supple. LUNGS: Have decreased breath sounds. HEART: Normal S1, S2. ABDOMEN: Soft, nontender. LABORATORY EXAMINATION: Reveals a white count of 4.3, hemoglobin of 9, platelets of 176. Chemistrie s are noted with a BUN of 17, creatinine of 0.9. Microbiology from hospitalization reveals the urine culture to be negative from the . The blood cultures are no growth from the . Review of the orders reveals the patient to be on Lasix, Lipitor, Lopressor and meropenem and intrave nous vancomycin. ASSESSMENT AND PLAN: A 76-year-old male, known to me from multiple previous admissions with a histor y of mantle cell lymphoma, has had chemotherapy, also with coronary artery disease, benign prostatic hypertrophy, hyperlipidemia, history of urinary tract infections and history of candidemia, history o f bilateral pneumonia. On this admission, patient was admitted on acute care. Now, transferred to [facility] with left ankle skin and soft tissue infection with cellulitis, improving with curre ntly on day #5 of vancomycin and meropenem and MRI of the ankle did not show an abscess formation and will treat 5-7 days of antibiotics. Today is day #5. Marvin Callahan MD cc: [id number] TT: 06/04/2016 10:30:03 Confirmation # [id number] Dictation # [id number] en
[2016-06-04] MEDS: IBRUTINIB 560 MG PO SCH (11:05)
[2016-06-04] MEDS: Calcium-Vit D 250 mg-125 Units Tab UD PO SCH (11:06)
[2016-06-04] MEDS: RANEXA 500 MG PO SCH ×2 (11:07→17:43)
[2016-06-04 17:24] VITALS: RESP 18
--- NOTE | 2016-06-04 20:27 | HP ---
LOCATION: The patient is in [facility] 314, bed 1. HISTORY OF PRESENT ILLNESS: The patient reason for admission to the [facility] for deconditioning and cont inuation of his IV antibiotics of vancomycin and Merrem for left ankle medial malleolus cellulitis, w hich is improving, which is what brought the patient into the hospital in the first place. The patie nt has a significant past medical history consisting of mantle cell lymphoma. He is on chemotherapy with Rituxan and a new medication called Imbruvica, that he takes 140 mg capsules 4 a day, was admitt ed with fevers and chills, redness of the left ankle with possible cellulitis, MRI consistent w ith the same without any bone or other tendon involvement. The patient's Imbruvica makes him , foreskin infections that are of concern to us. The patient has been improving gradually, and the cecilia mmendation of ID was that we could continue the antibiotics for a total of 7 days, which should be co mpleted by Sunday. He was sent to a [facility] for deconditioning, rehab, and hopefully we will be able t o let him go home. He is continuing his Imbruvica for now. PAST MEDICAL HISTORY: Significant for coronary artery disease with multiple stents. The patient als o has a history of node ablation for coronary artery disease of the right coronary artery, mantle gen l lymphoma on chemotherapy, last stress test was done 07/07/2014, which was negative. The patient co ntinues to do better, but especially in the last 3 days. MEDICATIONS: The patient's medications were reviewed and they are unchanged from that on the acute s opal. PERSONAL HISTORY: The patient denies any smoking or any drinking. ALLERGIES: HE HAS MULTIPLE ALLERGIES INCLUDING AZITHROMYCIN, ERYTHROMYCIN, PENICILLIN, CEPHALEXIN, G ABAPENTIN, LYRICA, SULFONAMIDE AND NITRO PASTE. REVIEW OF SYSTEMS: The patient denies any nausea, vomiting, fevers, or chills. PHYSICAL EXAMINATION: GENERAL: The patient is awake, alert, and oriented. He is out of bed in the chair. He had his phys ical therapy today, and overall, is feeling better. HEENT: Head is normocephalic, atraumatic. Conjunctivae pale. Examination of the oropharynx reveals the patient to be edentulous. No significant lesions are seen in the mouth. There is no ulceration . NECK: Supple. There is no adenopathy. LUNGS: Clear to percussion and auscultation. HEART: Reveals PMI at the 5th intercostal space, inside the midclavicular line. S1, S2 are normal. No gallop or murmur is heard. ABDOMEN: Soft, nontender. Bowel sounds are present. No rebound, rigidity, or guarding is noted. EXTREMITIES: Upper extremities reveal no cyanosis, clubbing, edema. Exam of lower extremity; specif ically, exam to the left ankle shows the erythema to greatly dissipated. The patient still has some ankle edema and some soreness just above the medial malleolus. Previously noted erythematous nodular discoloration is no longer seen. NEUROLOGIC: Higher functions are normal. No focal deficits are noted. HOME MEDICATIONS: Reviewed. He is on Ranexa 50 b.i.d., aspirin daily, oxybutynin 5 daily, Xopenex q . 6 hours, Tylenol p.r.n., insulin coverage as needed, metoprolol 25 daily, Protonix 40 daily, and Mi raLAX once daily. LABORATORY DATA: Reveals a white count of 4.3, hemoglobin 9.8, hematocrit 30, platelet count 176,000 . Sodium is 138, K is 3.8, BUN 17, creatinine 0.9. ASSESSMENT NOTES AND PLAN: The patient has deconditioning, currently on antibiotics for left ankle _ ____ cellulitis in an immunocompromised patient, who is currently in Imbruvica and Rituxan for mantle cell lymphoma, stage IV, coronary artery disease, history of lung cancer, chronic obstructive pulmon kelsey disease, anemia, diabetes, status post stent placement, currently on vancomycin. PLAN: We will continue his IV antibiotics. ID is on board. We will continue his physical therapy a nd we will continue to monitor his blood work. The patient did get 1 dose of last week, will t ry to give him another dose this week coming. I had a detailed discussion with the patient and his w sherrell at this afternoon. Alie Myers MD cc: [phone] TT: 06/04/2016 02:19:09 vn
--- NOTE | 2016-06-04 21:27 | PN ---
DATE: 06/04/2016 The patient is in room 314 in bed 1 in [facility]. The patient is here for deconditioning. REASON FOR ADMISSION TO THE HOSPITAL: The patient was admitted to the acute side with fevers, chills , temperature of 101, findings of acute cellulitis medial malleolus of the left ankle. Currently on IV antibiotics consisting of vancomycin and Merrem while on chemotherapy for stage IV mantle cell lym phoma. Currently on Imbruvica and Rituxan. The patient also has a history of coronary artery diseas e, status post multiple stenting; history of hypertension, history of hyperlipidemia, COPD and histor y of CA of the lung, status post resection. Subjectively, patient is feeling better, ambulating bett er. Ankle swelling and pain is less. PHYSICAL EXAMINATION: VITAL SIGNS: Stable. Blood pressure is 105/69, respirations 20, pulse 64, T-max is 98.4. HEENT: Head is normocephalic, atraumatic. Conjunctivae pale. Sclerae are anicteric. Pupils are eq ually reactive to light and accommodation. Examination of the oropharynx reveals the patient to be e dentulous. No oral lesions are noted. Tongue is moist. NECK: Supple. There is no adenopathy. No jugular venous distention is noted. Thorax is bilaterall y symmetrical. LUNGS: Clear to percussion and auscultation on examination of the lung. HEART: Reveals PMI in the fifth intercostal space. Systolic ejection murmur is heard. ABDOMEN: Soft, nontender. Liver and spleen are not palpable. No rebound, rigidity or guarding is n oted. EXTREMITIES: Reveal no cyanosis, clubbing or edema. Left ankle medial malleolus appears to be pankaj r with less redness and less pain. LABORATORY DATA: Today's lab data reveals a white count of 4.3, hemoglobin 9.8, hematocrit 30.6, frederick telet count 176,000. Sodium is 138, K is 3.8, BUN is 17, creatinine 0.9, random sugar is 113. AST a nd ALT are normal. Total protein and albumin are normal. ASSESSMENT NOTES AND PLAN: Deconditioning in a patient with sepsis with left ankle cellulitis compon ent on MRI without any involvement of the underlying structures such as the bone and the tendons. On systemic therapy with Imbruvica and Rituxan for stage IV mantle cell lymphoma, coronary artery disea se, congestive heart failure, on multiple medicines; diabetes mellitus, on monitoring alone. IDENTIFICATION: The patient is clinically stable. We will continue with her current treatment, with physical therapy. Is on Ranexa 500 b.i.d., aspirin 81 daily, furosemide 20 mg p.o. daily, Lipitor 2 0 mg daily, Lopid 600 b.i.d., metoprolol 12.5 mg daily in the evening and metoprolol 25 mg p.o. daily in the morning, mag oxide 400 mg p.o. daily, Merrem 1 gram IV q.8 hours, Plavix 75 mg daily, Protoni x 40 mg daily, vancomycin 1 gram IV b.i.d. We will continue the antibiotics through Sunday and then make decisions for planned discharge. Will check with infectious disease before doing so. Routine post exam instructions have been given to the patient. Labs for a.m. have been requested. Alie Myers MD cc: [phone] TT: 06/04/2016 21:26:46 Confirmation # [id number] Dictation # [id number] sn
[2016-06-04] MEDS: Magnesium Oxide 400 mg Tab UD PO SCH (22:46)
[2016-06-04] MEDS: RAPAFLO 8 MG PO SCH (22:48)
[2016-06-05] MEDS: Meropenem 1 GM in Sodium Chloride 0.9% 100 ML IVPB SCH ×3 (06:55→22:06)
[2016-06-05] MEDS: Pantoprazole 40 mg EC Tab PO SCH (06:58)
[2016-06-05] MEDS: Vancomycin 1gm in NS 250ml 250 ML IVPB SCH ×2 (06:59→17:45)
[2016-06-05] MEDS: Insulin Reg-LOW-Coverage SC SCH ×4 (07:44→22:03)
[2016-06-05 07:58] LABS: ADD MANUAL DIFF? NO
[2016-06-05 07:59] LABS: BASO # 0.05 K/mm3 (0.0-2.0); BASO % 1.3 % (0.0-3.0); EOS # 0.2 (0.0-0.7); EOS % 5.1 % (1.5-5.0); GRAN # 1.42 (1.4-6.5); GRAN % 37.7 % (50.0-68.0); HEMATOCRIT 29.6 % (42.0-52.0); LYMPH # 1.7 (1.2-3.4); LYMPH % 45.5 % (22.0-35.0); MEAN CELL VOLUME 78.1 fL (80.0-105.0); MEAN CORPUSCULAR HEMOGLOBIN 24.3 pg (25.0-35.0); MEAN CORPUSCULAR HGB CONC 31.1 g/dl (31.0-37.0); MONO # 0.4 (0.1-0.6); MONO % 10.4 % (1.0-6.0); PLATELET COUNT 148 10^3/uL (120.0-450.0); RED CELL DISTRIBUTION WIDTH 16.8 % (11.5-14.5); WHITE BLOOD COUNT 3.8 10^3/ul (4.5-11.0)
[2016-06-05 08:26] LABS: ALB/GLOB RATIO 0.9 (1.1-1.8); ALKALINE PHOSPHATASE 78 U/L (38-133); ALT/SGPT 19 U/L (7-56); AST/SGOT 23 U/L (15-59); BILIRUBIN,TOTAL 0.6 mg/dL (0.2-1.3); BLOOD UREA NITROGEN 16 mg/dL (7-21); CALCIUM 7.9 mg/dL (8.4-10.5); CARBON DIOXIDE 28 mmol/L (21-33); CHLORIDE 104 mmol/L (98-107); GFR AFRICAN-AMERICAN > 60; GLUCOSE,RANDOM 102 mg/dL (70-110); POTASSIUM 3.9 mmol/L (3.6-5.0); SODIUM 138 mmol/L (132-148); TOTAL PROTEIN 5.5 g/dL (5.8-8.3)
[2016-06-05] MEDS: Calcium-Vit D 250 mg-125 Units Tab UD PO SCH (10:41)
[2016-06-05] MEDS: IBRUTINIB 560 MG PO SCH (10:42)
[2016-06-05] MEDS: RANEXA 500 MG PO SCH ×2 (10:43→17:44)
--- NOTE | 2016-06-05 12:20 | PN ---
DATE: 06/05/2016 The patient in room 314, bed 1. REASON FOR CONSULTATION AND FOLLOWUP: Coronary artery disease, sepsis, mantle cell lymphoma, history of angioplasty and stent insertion for coronary artery disease, hypertension, hyperlipidemia. HISTORY OF PRESENT ILLNESS: A 76-year-old male with past medical history significant for mantle cell lymphoma, is getting chemotherapy. Was admitted with fever and chills and found to have redness on the left ankle, probably cellulitis. The patient treated on medical floor, got better and now is in transitional care unit for deconditioning and physical therapy. The patient is known case of coronar y artery disease, status post stent insertion, hypertension, hyperlipidemia. Presently, patient has no cardiac symptoms. PHYSICAL EXAMINATION: VITAL SIGNS: Blood pressure 108/60, respirations 18, pulse 70, temperature 98.1. HEAD: Normocephalic. EYES: Pupils normal. Conjunctivae slightly pale. NECK: JVP low. Carotid equal. THORAX: AP diameter normal. LUNGS: Clear. CARDIOVASCULAR: S1, S2, systolic murmur, no rub. ABDOMEN: Soft, no tenderness, no organomegaly. EXTREMITIES: No clubbing, no cyanosis. LABORATORY DATA: WBC 3.8, hemoglobin 9.2, hematocrit 29.6, platelet 148. Sodium 138, potassium 3.9, BUN 16, creatinine 0.9. Random sugar 119. AST, ALT normal. Total protein 5.5, albumin 2.6. DIAGNOSES: Sepsis, coronary artery disease, status post angioplasty and stent insertion, mantle cell lymphoma, getting chemotherapy; anemia, diabetes mellitus, cellulitis, left ankle; coronary artery d isease, deconditioning. PLAN: Continue Ranexa 500 mg b.i.d., aspirin 81 mg p.o. daily, furosemide 20 p.o. daily, Lipitor 20 mg p.o. daily, Lopid 600 b.i.d., metoprolol tartrate 12.5 mg at bedtime and metoprolol tartrate 25 mg daily, mag oxide 400 mg daily, Merrem IV 1 gram q.8 hours, Plavix 75 mg daily, vancomycin 1 gram IV b.i.d., Xopenex hand nebulizer therapy. Continue physical therapy. We will follow with you. Thanh Holbrook MD cc: [id number] TT: 06/05/2016 12:19:23 Confirmation # [id number] Dictation # [id number] sn
--- NOTE | 2016-06-05 16:26 | CP.PCM.PN ---
Subjective - Date & Time of Evaluation Date of Evaluation: 06/05/16 Time of Evaluation: 10:35 - Subjective Subjective: Comfortable in bed, not in distress, no fevers overnight, much improved swelling and pain in the left ankle. Objective - Vital Signs/Intake and Output Vital Signs (last 24 hours): Temp Pulse Resp BP Pulse Ox 98 F 78 18 108/60 97 06/05/16 10:00 06/05/16 10:00 06/05/16 10:00 06/05/16 10:42 06/05/16 10:00 - Medications Medications: Current Medications Acetaminophen (Tylenol 325mg Tab) 650 mg PO Q6H PRN; Protocol PRN Reason: Pain, Mild (1-3) Amitriptyline HCl (Elavil) 10 mg PO DAILY ALEX PRN Reason: Protocol Last Admin: 06/05/16 10:41 Dose: 10 mg Aspirin (Ecotrin) 81 mg PO 0800 ALEX PRN Reason: Protocol Last Admin: 06/05/16 08:38 Dose: 81 mg Atorvastatin Calcium (Lipitor) 20 mg PO HS ALEX PRN Reason: Protocol Last Admin: 06/04/16 22:46 Dose: 20 mg Benzocaine/Menthol (Cepacol Sore Throat) 1 [place] MT Q4H PRN; Protocol PRN Reason: Sore Throat Calcium/Vitamin D (Oscal-D 250 Mg-125 Units Tab) 2 tab PO DAILY ALEX PRN Reason: Protocol Last Admin: 06/05/16 10:41 Dose: 2 tab Clopidogrel Bisulfate (Plavix) 75 mg PO 0800 ALEX PRN Reason: Protocol Last Admin: 06/05/16 08:38 Dose: 75 mg Furosemide (Lasix) 20 mg PO DAILY ALEX PRN Reason: Protocol Last Admin: 06/05/16 10:42 Dose: 20 mg Gemfibrozil (Lopid) 600 mg PO BID ALEX PRN Reason: Protocol Last Admin: 06/05/16 10:43 Dose: 600 mg Vancomycin HCl (Vancomycin 1gm) 250 mls @ 167 mls/hr IVPB 0600,1800 ALEX PRN Reason: Protocol Last Admin: 06/05/16 06:59 Dose: 167 mls/hr Meropenem 1 gm/ Sodium (Chloride) 100 mls @ 100 mls/hr IVPB Q8 ALEX PRN Reason: Protocol Stop: 06/10/16 06:01 Last Admin: 06/05/16 14:19 Dose: 100 mls/hr Insulin Human Regular (Humulin R Low) 0 units SC ACHS ALEX PRN Reason: Protocol Last Admin: 06/05/16 12:15 Dose: Not Given Levalbuterol HCl (Xopenex) 1.25 mg IH Q6 PRN; Protocol PRN Reason: Cough and congestion Last Admin: 06/04/16 21:50 Dose: 1.25 mg Magnesium Oxide (Mag-Ox) 400 mg PO HS ALEX PRN Reason: Protocol Last Admin: 06/04/16 22:46 Dose: 400 mg Metoprolol Tartrate (Lopressor) 12.5 mg PO HS ALEX PRN Reason: Protocol Last Admin: 06/04/16 22:53 Dose: 12.5 mg Metoprolol Tartrate (Lopressor) 25 mg PO 0800 ALEX PRN Reason: Protocol Last Admin: 06/05/16 08:03 Dose: Not Given Mupirocin (Bactroban Ointment) 0 gm TOP BID ALEX PRN Reason: Protocol Last Admin: 06/05/16 10:39 Dose: 1 applic Non-Formulary Medication (Rapaflo) 8 mg PO HS ALEX Non-Formulary Medication (Ranexa) 500 mg PO BID ALEX Non-Formulary Medication (Imbruvica) 560 mg PO DAILY ALEX Ondansetron HCl (Zofran Inj) 4 mg IVP Q6H PRN; Protocol PRN Reason: Nausea/Vomiting Last Admin: 06/05/16 11:12 Dose: 4 mg Oxybutynin Chloride (Ditropan Tab) 5 mg PO DAILY [facility] PRN Reason: Protocol Last Admin: 06/05/16 10:41 Dose: 5 mg Pantoprazole Sodium (Protonix Ec Tab) 40 mg PO 0630 ALEX PRN Reason: Protocol Last Admin: 06/05/16 06:58 Dose: 40 mg - Labs Labs: 06/05/16 05:00 06/05/16 05:00 - Constitutional Appears: Non-toxic, No Acute Distress - Head Exam Head Exam: NORMAL INSPECTION - Neck Exam Neck Exam: absent: Lymphadenopathy, Meningismus - Respiratory Exam Respiratory Exam: Decreased Breath Sounds - Cardiovascular Exam Cardiovascular Exam: +S1, +S2 - GI/Abdominal Exam GI & Abdominal Exam: Soft. 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 Myers - should be able to d/c antibiotics in the next 24 hours Will continue to follow clinically
[2016-06-05] MEDS ORDERED: RANEXA 500 MG PO SCH (18:00)
[2016-06-05] MEDS ORDERED: RAPAFLO 8 MG PO SCH (22:00)
[2016-06-05] MEDS: Magnesium Oxide 400 mg Tab UD PO SCH (22:05)
--- NOTE | 2016-06-06 00:39 | PN ---
DATE: 06/05/2016 The patient is in [facility] 314, bed 1. REASON FOR FOLLOWUP: The patient is a 76-year-old male with a diagnosis of acute cellulitis of the l eft ankle. Currently, immunosuppressed on chemotherapy for stage IV mantle cell lymphoma on Rituxan given monthly and Imbruvica given daily 140 mg capsules x 4 days, was admitted with fever and r elated to active cellulitis of the left ankle for which he received both vancomycin and Merrem and is gradually improving. Antibiotics should finish by Sunday. The patient was admitted with fever and chills, and had to be treated with IV antibiotics. He is now transferred to [facility] for completion of his antibiotics, and also deconditioning was noted, and patient is on active physical therapy, overal l feeling better. PAST MEDICAL HISTORY: Is also significant for significant coronary artery disease , status post multiple stents, history of hypertension, hyperlipidemia, COPD and CA of the lung. SUBJECTIVE: The patient is feeling better, sitting out of bed in the chair and has been doing his ph ysical therapy twice a day. CLINICAL EXAMINATION: VITAL SIGNS: Stable. Blood pressure is 108/60, respirations 18, pulse is 70, T-max is 98.4. HEENT: Head is normocephalic, atraumatic. Conjunctivae are pale. Sclerae are anicteric. Pupils ar e equally reactive to light and accommodation. Examination of the oropharynx reveals no oropharyngea l lesions. NECK: Supple. There is no adenopathy. No jugular venous distention noted. LUNGS: Clear to percussion and auscultation. HEART: Reveals PMI to be in the 5th intercostal space inside the midclavicular line. S1 and S2 are normal. No gallop or murmur is heard. EXTREMITIES: Reveals no cyanosis, clubbing, or edema. The medial aspect of the left ankle appears t o be significantly improved without any tenderness or erythematous, raised nodules that were seen on the day of admission. His white count is 3.8, hemoglobin 9.2, ANC is more than 1.4, hematocrit 29, platelet count 148,000. Sodium is 138, K is 3.9, BUN 16, creatinine 0.9, random sugar 119. AST and ALT are normal. Total p rotein is 5.5 with an albumin of 2.6. ASSESSMENT NOTES AND PLAN: The patient has continued to do well on physical therapy and IV antibioti cs. We will continue the current treatments with the antibiotics with vancomycin 1 gram b.i.d. and M errem 1 gram q. 8 hours through Sunday. Continue his other medicines including Ranexa 500 b.i.d., aspirin 81 mg p.o. daily, Lasix 20 mg p.o. daily, Lipitor 20 mg p.o. daily, Lopid 600 mg p.o. b.i.d., metoprolol 25 mg at bedtime and metoprolol 25 mg p.o. daily, mag oxide 400 mg p.o. daily, Xanax, Xop enex handheld nebulizer as needed along with intensive physical therapy. If things are better, we wi ll try to discharge him tomorrow evening after completion of the antibiotics. Labs for a.m. have bee n requested. Alie Myers MD cc: [id number] TT: 06/06/2016 00:38:12 Confirmation # [id number] Dictation # [id number] tn
[2016-06-06] MEDS: Meropenem 1 GM in Sodium Chloride 0.9% 100 ML IVPB SCH ×3 (05:55→20:04)
[2016-06-06] MEDS: Pantoprazole 40 mg EC Tab PO SCH (05:57)
[2016-06-06] MEDS: Vancomycin 1gm in NS 250ml 250 ML IVPB SCH ×2 (05:57→17:06)
[2016-06-06] MEDS: Insulin Reg-LOW-Coverage SC SCH ×3 (06:41→17:17)
[2016-06-06] MEDS ORDERED: IBRUTINIB 560 MG PO SCH ×2 (10:00)
[2016-06-06] MEDS: Calcium-Vit D 250 mg-125 Units Tab UD PO SCH (10:36)
[2016-06-06] MEDS: RANEXA 500 MG PO SCH ×2 (10:37→17:05)
[2016-06-06 10:43] VITALS: BP 112/64
[2016-06-06 11:35] VITALS: PULSE 76; TEMP 98.2; O2SAT 97
--- NOTE | 2016-06-06 15:07 | CP.PCM.PN ---
Subjective - Date & Time of Evaluation Date of Evaluation: 06/06/16 Time of Evaluation: 09:50 - Subjective Subjective: Comfortable in bed, not in distress, no fevers overnight, much improved swelling and redness of his right ankle. Objective - Vital Signs/Intake and Output Vital Signs (last 24 hours): Temp Pulse Resp BP Pulse Ox 98.2 F 76 18 112/64 97 06/06/16 10:00 06/06/16 10:00 06/06/16 10:00 06/06/16 10:35 06/06/16 10:00 - Medications Medications: Current Medications Acetaminophen (Tylenol 325mg Tab) 650 mg PO Q6H PRN; Protocol PRN Reason: Pain, Mild (1-3) Amitriptyline HCl (Elavil) 10 mg PO DAILY ALEX PRN Reason: Protocol Last Admin: 06/06/16 10:34 Dose: 10 mg Aspirin (Ecotrin) 81 mg PO 0800 ALEX PRN Reason: Protocol Last Admin: 06/06/16 08:09 Dose: 81 mg Atorvastatin Calcium (Lipitor) 20 mg PO HS ALEX PRN Reason: Protocol Last Admin: 06/05/16 22:04 Dose: 20 mg Benzocaine/Menthol (Cepacol Sore Throat) 1 [place] Q4H PRN; Protocol PRN Reason: Sore Throat Calcium/Vitamin D (Oscal-D 250 Mg-125 Units Tab) 2 tab PO DAILY ALEX PRN Reason: Protocol Last Admin: 06/06/16 10:36 Dose: 2 tab Clopidogrel Bisulfate (Plavix) 75 mg PO 0800 ALEX PRN Reason: Protocol Last Admin: 06/06/16 08:11 Dose: 75 mg Furosemide (Lasix) 20 mg PO DAILY ALEX PRN Reason: Protocol Last Admin: 06/06/16 10:35 Dose: 20 mg Gemfibrozil (Lopid) 600 mg PO BID ALEX PRN Reason: Protocol Last Admin: 06/06/16 10:36 Dose: 600 mg Vancomycin HCl (Vancomycin 1gm) 250 mls @ 167 mls/hr IVPB 0600,1800 ALEX PRN Reason: Protocol Last Admin: 06/06/16 05:57 Dose: 167 mls/hr Meropenem 1 gm/ Sodium (Chloride) 100 mls @ 100 mls/hr IVPB Q8 ALEX PRN Reason: Protocol Stop: 06/10/16 06:01 Last Admin: 06/06/16 13:44 Dose: 100 mls/hr Insulin Human Regular (Humulin R Low) 0 units SC ACHS ALEX PRN Reason: Protocol Last Admin: 06/06/16 12:18 Dose: Not Given Levalbuterol HCl (Xopenex) 1.25 mg IH Q6 PRN; Protocol PRN Reason: Cough and congestion Last Admin: 06/04/16 21:50 Dose: 1.25 mg Magnesium Oxide (Mag-Ox) 400 mg PO HS ALEX PRN Reason: Protocol Last Admin: 06/05/16 22:05 Dose: 400 mg Metoprolol Tartrate (Lopressor) 12.5 mg PO HS ALEX PRN Reason: Protocol Last Admin: 06/05/16 22:05 Dose: 12.5 mg Metoprolol Tartrate (Lopressor) 25 mg PO 0800 [facility] PRN Reason: Protocol Last Admin: 06/06/16 08:10 Dose: Not Given Mupirocin (Bactroban Ointment) 0 gm TOP BID ALEX PRN Reason: Protocol Last Admin: 06/06/16 10:33 Dose: 1 applic Non-Formulary Medication (Rapaflo) 8 mg PO HS [facility] Last Admin: 06/05/16 22:07 Dose: 8 mg Non-Formulary Medication (Ranexa) 500 mg PO BID [facility] Last Admin: 06/06/16 10:37 Dose: 500 mg Non-Formulary Medication (Imbruvica) 560 mg PO DAILY [facility] Last Admin: 06/06/16 10:35 Dose: 560 mg Ondansetron HCl (Zofran Inj) 4 mg IVP Q6H PRN; Protocol PRN Reason: Nausea/Vomiting Last Admin: 06/06/16 10:39 Dose: 4 mg Oxybutynin Chloride (Ditropan Tab) 5 mg PO DAILY [facility] PRN Reason: Protocol Last Admin: 06/06/16 10:34 Dose: 5 mg Pantoprazole Sodium (Protonix Ec Tab) 40 mg PO 0630 [facility] PRN Reason: Protocol Last Admin: 06/06/16 05:57 Dose: 40 mg - Labs Labs: 06/05/16 05:00 06/05/16 05:00 - Constitutional Appears: Non-toxic, No Acute Distress - Head Exam Head Exam: NORMAL INSPECTION - ENT Exam ENT Exam: Mucous Membranes Moist - Neck Exam Neck Exam: absent: Lymphadenopathy, Meningismus - Respiratory Exam Respiratory Exam: Decreased Breath Sounds - Cardiovascular Exam Cardiovascular Exam: +S1, +S2 - GI/Abdominal Exam GI & Abdominal Exam: Soft. 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 Myers Will continue to follow clinically while the patient is in the hospital
--- NOTE | 2016-06-06 20:57 | PN ---
DATE: 06/06/2016 The patient is in room 314, bed 1. REASON FOR CONSULTATION AND FOLLOWUP: Coronary artery disease, sepsis, mantle cell lymphoma, history of angioplasty with stent insertion, hypertension, hyperlipidemia. HISTORY OF PRESENT ILLNESS: A 76-year-old male with past medical history significant for mantle cell lymphoma, getting chemotherapy. The patient got fever and chills at home, was found to have redness on the left ankle, probably cellulitis. The patient was treated and he is better now. He is on the transitional care unit, getting physical therapy and the patient asymptomatic from cardiac point of view. PHYSICAL EXAMINATION: VITAL SIGNS: Blood pressure 112/64, respirations 18, pulse 76, temperature 98.2. HEENT: Head is normocephalic. Eyes: Pupils normal. Conjunctivae slightly pale. Nose and throat n ormal. NECK: JVP low. Carotid equal. THORAX: AP diameter normal. LUNGS: Clear. CARDIOVASCULAR: S1, S2 with soft systolic murmur, no rub. ABDOMEN: Soft, nontender, no organomegaly. Bowel sounds normal. EXTREMITIES: No clubbing, no cyanosis. LABORATORY DATA: WBC 3.84, hemoglobin 10.2, hematocrit 29.6, platelets 148. Sodium 138, potassium 3 .9, BUN 16, creatinine 0.9. Random sugar . AST, ALT normal. Total protein 5.5, albumin 2.6. DIAGNOSES: Sepsis, coronary artery disease, status post angioplasty and stent insertion, mantle cell lymphoma getting chemotherapy, anemia, diabetes mellitus, cellulitis of the left ankle, coronary art asim disease, history of stent insertion, and deconditioning. PLAN: The patient improved with the present therapy and the patient is being followed by hematology and oncology. The patient on Ranexa 500 b.i.d., aspirin 81 mg daily, furosemide 20 p.o. daily, Lipit or 20 daily, Lopid 600 mg b.i.d., metoprolol tartrate 12.5 mg p.o. at bedtime, metoprolol tartrate 25 mg daily, Merrem IV 1 gram q. 8 hours, Plavix 75 daily, vancomycin 1 gram IV b.i.d. We will continu e present therapy and will follow. Thanh Holbrook MD cc: [id number] TT: 06/06/2016 20:57:08 Confirmation # [id number] Dictation # [id number] mn
--- NOTE | 2016-06-07 01:16 | DS ---
The patient is in room 314, bed 1. The patient is being discharged today. DISCHARGE DIAGNOSES: Fever, which showed related to his active cellulitis, left ankle medial malleol us, and a background history of being immunocompromised, on chemotherapy for stage IV mantle cell lym phoma on a combination of Rituxan and pill, Imbruvica, which he has been taking 140 mg 4 pills a day. The patient also has a history of coronary artery disease, history of angioplasty with stent insert ion, hypertension, COPD, hyperlipidemia. HISTORY OF PRESENT ILLNESS: The patient was admitted with fevers and chills from home, was found to have redness of the left ankle above the malleolus consistent with cellulitis. MRI of the colon with out any evidence of deep wounds related to osteomyelitis. The patient was treated aggressively with vancomycin and Merrem, improved dramatically and was then transferred to the [facility] for deconditioning. The patient's condition gradually improved in the TR while on the antibiotics. The ankle edema, swelling and redness abated and the patient started feeling better, started participating in physical therapy twice a day and has been afebrile throughout the stay here. LABORATORY DATA: Reveals a white count of 3.8, hemoglobin 10.2, hematocrit 29.6, platelet count 148, 000 with normal electrolytes. AST and ALT are normal. Total protein is 5.5 with an albumin of 2.6. MEDICATIONS: The patient's medications were also reviewed. He is on Ranexa 500 b.i.d., aspirin 81 m g daily, furosemide 20 mg p.o. daily, Lipitor 20 mg p.o. daily, Lopid 600 mg p.o. b.i.d., metoprolol tartrate 12.5 mg p.o. at bedtime and metoprolol 25 mg daily during the day. The patient has complete d his Merrem and his vancomycin. He is continuing his Plavix 75 mg daily. IVs were discontinued, po rt was flushed. PLAN: The patient was placed on a heart healthy diet and is being discharged today. DISCHARGE DIAGNOSES: Sepsis, coronary artery disease, status post angioplasty and stent insertion, mantle cell lymphoma st age IV, on aggressive active chemotherapy with Imbruvica 140 mg capsules 4 capsules a day along with IV Rituxan given once a month. The patient will continue all these medicines as an outpatient, has c ompleted his antibiotics today and he will be seen in the office in the next several days for followu p and continuation of his chemotherapy. Routine post exam instructions have been given to the isabel garcia. He will continue all the current medicines listed above as an outpatient. Alie Myers MD cc: [id number] TT: 06/07/2016 01:15:16 mn
== END 2016-06-06 21:26 | disposition home or self-care (01) | DRG 872 ==
LOC: TRCU 16:45
PROVIDERS: ADMIT Family Medicine; ATTEND Family Medicine
PROC: F07Z9ZZ Gait Training/Functional Ambulation Treatment (ICD-10-PCS; principal; 2016-06-03)
PROC: F07M6ZZ Therapeutic Exercise Treatment of Musculoskeletal System - Whole Body (ICD-10-PCS; 2016-06-03)
PROC: F08Z4ZZ Home Management Treatment (ICD-10-PCS; 2016-06-05)
DX: A41.9 Sepsis, unspecified organism (principal); C83.10 Mantle cell lymphoma, unspecified site; D89.9 Disorder involving the immune mechanism, unspecified; J44.9 Chronic obstructive pulmonary disease, unspecified; I08.3 Combined rheumatic disorders of mitral, aortic and tricuspid valves; L03.116 Cellulitis of left lower limb; I25.10 Atherosclerotic heart disease of native coronary artery without angina pectoris; Z95.5 Presence of coronary angioplasty implant and graft; E11.9 Type 2 diabetes mellitus without complications; E78.5 Hyperlipidemia, unspecified; H91.90 Unspecified hearing loss, unspecified ear; I10 Essential (primary) hypertension; N40.0 Benign prostatic hyperplasia without lower urinary tract symptoms; Z79.02 Long term (current) use of antithrombotics/antiplatelets; Z79.82 Long term (current) use of aspirin; Z79.899 Other long term (current) drug therapy; Z85.118 Personal history of other malignant neoplasm of bronchus and lung; Z86.19 Personal history of other infectious and parasitic diseases; Z87.440 Personal history of urinary (tract) infections; Z92.21 Personal history of antineoplastic chemotherapy; Z88.1 Allergy status to other antibiotic agents; Z88.0 Allergy status to penicillin; Z88.2 Allergy status to sulfonamides; Z88.8 Allergy status to other drugs, medicaments and biological substances

== ENCOUNTER 2016-06-09 02:38 | Inpatient (IN) | payer MEDICARE, OTHER ==
[2016-06-09 02:38] VITALS: BMI 27.4
[2016-06-09] MEDS ORDERED: Sodium Chloride 0.9% 1,000 ML IV STA (02:57)
[2016-06-09] MEDS ORDERED: Meropenem 1g/NS 100mL IVPB 100 ML IVPB STA (02:59)
[2016-06-09] MEDS ORDERED: Vancomycin 500 mg Inj IVPB STA (02:59)
--- NOTE | 2016-06-09 03:03 | ED PDOC ---
Arrival/HPI - General Chief Complaint: Fever Time Seen by Provider: 06/09/16 02:55 Historian: Patient - History of Present Illness Narrative History of Present Illness (Text): 06/09/16 02:59 Jakub Marques is a 76 year old male, with a history of mantle cell lymphoma , CAD with stents, benign prostatic hyperplasia, and recent admission for lower extremity cellulitis, presents to the emergency department complaining of shivering and fever since yesterday evening. Reports he had a fever of 102F at home which was broken after taking Tylenol. Patient also reports of an occasional dry cough. States that he was discharged 2 days prior after finishing antibiotics for LE cellulitis. Denies headache, chest pain, shortness of breath, nausea, vomiting, diarrhea, or any other complaints at this time. Time/Duration: 4-6 hours Symptom Onset: Gradual Symptom Course: Unchanged Severity Level: Mild Activities at Onset: Light Context: Home Past Medical History - Provider Review Nursing Documentation Reviewed: Yes - Past History Past History: Unable to Obtain - Infectious Disease Hx of Infectious Diseases: None - Tetanus Immunization Tetanus Immunization: Unknown - Cardiac Hx Cardiac Disorders: Yes Hx Hypertension: Yes - Pulmonary Hx Asthma: Yes Hx Pneumonia: No - Neurological HX Cerebrovascular Accident: No Hx Transient Ischemic Attacks (TIA): Yes - HEENT Hx HEENT Disorder: Yes (wears eyeglasses) Hx Deafness: Yes Other/Comment: 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, uses a hearing aid in right ear also - Renal Hx Renal Disorder: No Hx Renal Failure: No - Endocrine/Metabolic Hx Endocrine Disorders: No Hx Diabetes Mellitus Type 1: No Hx Diabetes Mellitus Type 2: Yes Hx Hypothyroidism: No - Hematological/Oncological Hx Blood Disorders: No Hx Cancer: No - Integumentary Hx Dermatological Disorder: No - Musculoskeletal/Rheumatological Hx Falls: Yes - Gastrointestinal Hx Gastrointestinal Disorders: No - Genitourinary/Gynecological Hx Genitourinary Disorders: Yes (FREQUENCY,H/O UTI) Hx Reproductive Disorders: Yes (BPH) - Psychiatric Hx Psychophysiologic Disorder: No Hx Emotional Abuse: No Hx Physical Abuse: No Hx Substance Use: No - Past Surgical History Past Surgical History: Unable to Obtain - Surgical History Hx Orthopedic Surgery: Yes - Anesthesia Hx Anesthesia: Yes Hx Anesthesia Reactions: No Hx Malignant Hyperthermia: No - Suicidal Assessment Feels Threatened In Home Enviroment: No Family/Social History - Physician Review Nursing Documentation Reviewed: Yes Family/Social History: No Known Family HX Smoking Status: Never Smoked Hx Alcohol Use: No Hx Substance Use: No Hx Substance Use Treatment: No Allergies/Home Meds Allergies/Adverse Reactions: Allergies azithromycin Allergy (Severe, Verified 06/09/16 04:47) ANGIOEDEMA erythromycin base Allergy (Severe, Verified 06/09/16 04:47) ANGIOEDEMA Penicillins Allergy (Severe, Verified 06/09/16 04:47) ANAPHYLAXIS cephalexin monohydrate [From Keflex] Allergy (Intermediate, Verified 06/09/16 04 :47) RASH gabapentin Allergy (Intermediate, Verified 06/09/16 04:47) RASH pregabalin Allergy (Intermediate, Verified 06/09/16 04:47) RASH Sulfa (Sulfonamide Antibiotics) Allergy (Intermediate, Verified 06/09/16 04:47) RASH nitro paste Allergy (Intermediate, Uncoded 06/09/16 04:47) DIZZINESS/HYPOTENSION CAUSE HYPOTENSION Home Medications: Home Meds Medication Instructions Recorded Confirmed Aspirin [Aspirin EC] 81 mg PO DAILY 09/10/15 06/09/16 Oxybutynin Chloride 5 mg PO DAILY 09/10/15 06/09/16 Levalbuterol [Xopenex] 1.25 mg IH Q6 PRN 01/31/16 06/09/16 Acetaminophen [Tylenol (Renal)] 650 mg PO Q6 PRN 04/21/16 06/09/16 Benzocaine/Menthol [Chloraseptic 1 lozenge PO DAILY 04/21/16 06/09/16 Max Lozenge] Metoprolol Tartrate [Lopressor] 25 mg PO HS 04/21/16 06/09/16 Ondansetron [Zofran Inj] 4 mg IVP Q6H 04/21/16 06/09/16 Pantoprazole [Protonix EC Tab] 40 mg PO DAILY 04/21/16 06/09/16 Calcium Carbonate/Vitamin D3 600 mg PO DAILY 06/03/16 06/09/16 [Caltrate 600 + D Soft Chew Tab] Ibrutinib [Imbruvica] 560 mg PO HS 06/03/16 06/09/16 Magnesium Oxide [Magnesium] 400 mg PO HS 06/03/16 06/09/16 Nortriptyline HCl [Pamelor] 10 mg PO DAILY 06/03/16 06/09/16 Ranolazine [Ranexa] 500 mg PO BID 06/03/16 06/09/16 Silodosin [Rapaflo] 8 mg PO HS 06/03/16 06/09/16 Review of Systems - Physician Review All systems were reviewed & negative as marked: Yes - Review of Systems Constitutional: Fevers. absent: Fatigue Respiratory: Cough. absent: SOB Cardiovascular: Normal, Syncope. absent: Chest Pain Gastrointestinal: absent: Abdominal Pain, Diarrhea, Nausea, Vomiting Neurological: Normal. absent: Headache, Dizziness Psychiatric: Normal Physical Exam Vital Signs Reviewed: Yes Vital Signs Temp Pulse Resp BP Pulse Ox 06/09/16 06:01 88 16 136/74 100 06/09/16 06:00 98.2 F 98 H 20 159/87 H 100 06/09/16 04:39 72 18 128/84 100 06/09/16 02:47 98.0 F 78 18 141/71 96 Temperature: Afebrile Blood Pressure: Normal Pulse: Regular Respiratory Rate: Normal Appearance: Positive for: Well-Appearing, Non-Toxic, Comfortable Pain Distress: None Mental Status: Positive for: Alert and Oriented X 3 - Systems Exam Head: Present: Atraumatic, Normocephalic Pupils: Present: PERRL Conjunctiva: Present: Normal Mouth: Present: Dry Respiratory/Chest: Present: Clear to Auscultation, Good Air Exchange, Other ( Port in right chest wall ). No: Respiratory Distress, Accessory Muscle Use Cardiovascular: Present: Regular Rate and Rhythm, Normal S1, S2. No: Murmurs Abdomen: Present: Normal Bowel Sounds. No: Tenderness, Distention, Peritoneal Signs Neurological: Present: GCS=15, CN II-XII Intact, Speech Normal Skin: Present: Warm, Dry, Normal Color. No: Rashes Psychiatric: Present: Alert, Oriented x 3, Normal Insight, Normal Concentration Medical Decision Making ED Course and Treatment: 06/09/16 03:05 Impression: A 76 year old male who presents to the emergency department complaining of fever, chills and shivering since earlier yesterday. Plan: -- EKG -- Labs -- Chest X-ray -- Meropenem -- IV fluids -- Vancomycin -- Blood culture -- Urine culture -- Influenza A B -- Urinalysis -- Reassess and disposition Progress Notes: 06/09/16 03:50 EKG interpreted by me: NSR @ 72 bpm. Non specific T wave abnormality. - Lab Interpretations Microbiology Results: Microbiology Results 06/09/16 03:15 Blood-Venous Blood Culture - Preliminary NO GROWTH AFTER 48 HOURS 06/09/16 03:10 Blood-Venous Blood Culture - Preliminary NO GROWTH AFTER 48 HOURS Lab Results: 06/09/16 03:10 06/09/16 03:10 Lab Results 06/09/16 03:10: WBC 4.4 L, RBC 3.77, Hgb 9.2 L, Hct 28.9 L, MCV 76.7 L, MCH 24.4 L, MCHC 31.8, RDW 16.5 H, Plt Count 152, MPV 9.8, Gran % 44.4 L, Lymph % ( Auto) 38.5 H, [place] % (Auto) 13.7 H, Eos % (Auto) 2.7, Baso % (Auto) 0.7, Gran # 1.95, Lymph # 1.7, [place] # 0.6, Eos # 0.1, Baso # 0.03, pO2 50, VBG pH 7.38, VBG pCO2 48.0, VBG HCO3 28.4 H, VBG Total CO2 29.9 H, VBG O2 Sat (Calc) 86.7 H, VBG Base Excess 2.5 H, VBG Potassium 3.6, Glucose 104, Lactate 1.0, FiO2 21.0, Sodium 135.0, Potassium 3.8, Chloride 103.0, Carbon Dioxide 29, Anion Gap 10, BUN 20, Creatinine 0.9, Est GFR ( Amer) > 60, Est GFR (Non-Af Amer) > 60 , Random Glucose 103, Calcium 8.3 L, Total Bilirubin 0.9, AST 36, ALT 37, Alkaline Phosphatase 96, Total Protein 6.5, Albumin 3.2, Globulin 3.3, Albumin/ Globulin Ratio 1.0 L, Venous Blood Potassium 3.6, Influenza Typ A,B (EIA) Negative for flu a/b - RAD Interpretation Radiology Orders: 06/09/16 02:56 CHEST TWO VIEWS (PA/LAT) [RAD] Stat - Medication Orders Current Medication Orders: Acetaminophen (Tylenol 325mg Tab) 650 mg PO Q6H PRN PRN Reason: Fever >100.4 F Aspirin (Aspirin Chewable) 81 mg PO DAILY [facility] Last Admin: 06/11/16 10:04 Dose: 81 MG Atorvastatin Calcium (Lipitor) 20 mg PO [facility] Last Admin: 06/10/16 22:35 Dose: 20 MG Calcium/Vitamin D (Oscal-D 250 Mg-125 Units Tab) 1 tab PO DAILY [facility] Last Admin: 06/11/16 10:04 Dose: 1 TAB Clopidogrel Bisulfate (Plavix) 75 mg PO DAILY [facility] Last Admin: 06/11/16 10:05 Dose: 75 MG Fluocinonide (Lidex 0.05% Cream) 0 gm TOP BID PRN PRN Reason: Itching / Pruritus Furosemide (Lasix) 40 mg PO DAILY [facility] Last Admin: 06/11/16 10:30 Dose: 40 MG MAR Blood Pressure Document 06/11/16 10:30 (Rec: 06/11/16 10:30 [id number]) Blood Pressure Blood Pressure (100/60-150/90) 109/57 Gemfibrozil (Lopid) 600 mg PO BID [facility] Last Admin: 06/11/16 17:47 Dose: 600 MG Home Med (Home Med) 1 unit PO [facility] Last Admin: 06/10/16 22:35 Dose: 1 UNIT Home Med (Home Med) 1 unit PO BID [facility] Last Admin: 06/11/16 17:47 Dose: 1 UNIT Home Med (Home Med) 4 unit PO DAILY [facility] Last Admin: 06/11/16 10:03 Dose: 4 UNIT Levalbuterol HCl (Xopenex) 0.63 mg IH TIDRESP [facility] Last Admin: 06/11/16 19:41 Dose: 0.63 MG Magnesium Oxide (Mag-Ox) 400 mg PO [facility] Last Admin: 06/10/16 22:34 Dose: 400 MG Metoprolol Tartrate (Lopressor) 25 mg PO [facility] Last Admin: 06/10/16 22:34 Dose: 25 MG Mupirocin (Bactroban Ointment) 1 gm TOP BID PRN PRN Reason: Itching / Pruritus Last Admin: 06/10/16 17:47 Dose: 1 GM Nortriptyline HCl (Pamelor) 10 mg PO DAILY [facility] Last Admin: 06/11/16 10:06 Dose: Ondansetron HCl (Zofran Inj) 4 mg IVP Q6H PRN PRN Reason: Nausea/Vomiting Last Admin: 06/11/16 10:01 Dose: 4 MG IVP Administration Document 06/11/16 10:01 (Rec: 06/11/16 10:01 [id number]) Charges for Administration # of IVP Administrations 1 Oxybutynin Chloride (Ditropan Tab) 5 mg PO DAILY [facility] Last Admin: 06/11/16 10:04 Dose: 5 MG Pantoprazole Sodium (Protonix Ec Tab) 40 mg PO ACB [facility] Last Admin: 06/11/16 10:05 Dose: 40 MG Discontinued Medications Alteplase, Recombinant (Cathflo 2 Mg Inj) 2 mg IV ONCE ONE Stop: 06/11/16 14:36 Last Admin: 06/11/16 15:14 Dose: 2 MG eMAR Start Stop Document 06/11/16 15:14 (Rec: 06/11/16 15:14 [email or web address]) Intravenous Solution Start Date 06/11/16 Start Time 15:14 Home Med (Home Med) 1 unit PO DAILY [facility] Last Admin: 06/09/16 12:37 Dose: 1 UNIT Sodium Chloride (Sodium Chloride 0.9%) 1,000 mls @ 999 mls/hr IV .Q1H1M STA Stop: 06/09/16 03:57 Last Admin: 06/09/16 03:27 Dose: 999 MLS/HR eMAR Start Stop Document 06/09/16 03:27 ANITA (Rec: 06/09/16 03:27 [facility]ITA [facility] [id number] Intravenous Solution Start Date 06/09/16 Start Time 03:27 End Date 06/09/16 End time 04:27 Total Infusion Time 60 Meropenem 1g/NS 100mL IVPB (Meropenem 1g/Ns 100ml Ivpb) 100 mls @ 100 mls/hr IVPB STAT STA PRN Reason: Protocol Stop: 06/09/16 03:58 Last Admin: 06/09/16 03:35 Dose: 100 MLS/HR eMAR Start Stop Document 06/09/16 03:35 ANITA (Rec: 06/09/16 03:36 [facility]ITA [facility] [id number]) Intravenous Solution Start Date 06/09/16 Start Time 03:36 End Date 06/09/16 End time 04:36 Total Infusion Time 60 Vancomycin HCl (Vancomycin 1gm) 250 mls @ 167 mls/hr IVPB STAT STA Stop: 06/09/16 04:35 Last Admin: 06/09/16 04:24 Dose: 167 MLS/HR eMAR Start Stop Document 06/09/16 04:24 AINTA (Rec: 06/09/16 04:25 ANITA [facility] [id number] Intravenous Solution Start Date 06/09/16 Start Time 04:25 End Date 06/09/16 End time 05:55 Total Infusion Time 90 Sodium Chloride (Sodium Chloride 0.9%) 1,000 mls @ 100 mls/hr IV .Q10H ALEX Last Admin: 06/09/16 17:38 Dose: Meropenem 1 gm/ Sodium (Chloride) 100 mls @ 100 mls/hr IVPB Q8 ALEX PRN Reason: Protocol Stop: 06/16/16 14:01 Last Admin: 06/10/16 06:20 Dose: 100 MLS/HR eMAR Start Stop Document 06/10/16 06:20 AJP (Rec: 06/10/16 06:20 [email or web address] [id number]) Intravenous Solution Start Date 06/10/16 Start Time 06:20 Vancomycin HCl (Vancomycin 1gm) 250 mls @ 167 mls/hr IVPB Q12H ALEX PRN Reason: Protocol Last Admin: 06/11/16 02:30 Dose: 167 MLS/HR eMAR Start Stop Document 06/11/16 02:30 AJP (Rec: 06/11/16 05:32 [email or web address]) Intravenous Solution Start Date 06/11/16 Start Time 02:30 Meropenem 1g/NS 100mL IVPB (Meropenem 1g/Ns 100ml Ivpb) 100 mls @ 100 mls/hr IVPB Q8 ALEX PRN Reason: Protocol Stop: 06/16/16 14:01 Last Admin: 06/11/16 05:32 Dose: 100 MLS/HR eMAR Start Stop Document 06/11/16 05:32 AJP (Rec: 06/11/16 05:32 [email or web address]) Intravenous Solution Start Date 06/11/16 Start Time 05:32 Iodixanol (Visipaque 320 Mg/Ml 100 Ml) Confirm Administered Dose 100 ml IV .STK- MED ONE Stop: 06/09/16 15:30 Levalbuterol HCl (Xopenex) 1.25 mg IH [id number] PRN PRN Reason: Shortness of Breath Last Admin: 06/10/16 13:09 Dose: 1.25 MG Levalbuterol HCl (Xopenex) 1.25 mg IH [id number] ALEX Mupirocin (Bactroban Ointment) 1 gm TOP PRN PRN PRN Reason: Itching / Pruritus - Scribe Statement The provider has reviewed the documentation as recorded by the Tl Vann Provider Attestation: All medical record entries made by the Tl were at my direction and personally dictated by me. I have reviewed the chart and agree that the record accurately reflects my personal performance of the history, physical exam, medical decision making, and the department course for this patient. I have also personally directed, reviewed, and agree with the discharge instructions and disposition. Disposition/Present on Arrival - Present on Arrival Any Indicators Present on Arrival: No History of DVT/PE: No History of Uncontrolled Diabetes: No Urinary Catheter: No History of Decub. Ulcer: No History Surgical Site Infection Following: None - Disposition Have Diagnosis and Disposition been Completed?: Yes Diagnosis: Fever Disposition: HOSPITALIZED Disposition Time: 05:13 Patient Problems: Current Active Problems Problem Status Diagnosed Diabetes mellitus Acute Frequent falls Acute Lymphoma Acute TIA (transient ischemic attack) Acute Condition: STABLE
[2016-06-09] MEDS ORDERED: Vancomycin 1gm in NS 250ml 250 ML IVPB STA (03:06)
[2016-06-09 03:22] LABS: ADD MANUAL DIFF? NO
[2016-06-09 03:28] LABS: VENOUS BLOOD GAS BASE EXCESS 2.5 mmol/L (0.0-2.0); VENOUS BLOOD PH 7.38 (7.32-7.43)
[2016-06-09 03:29] LABS: BASO # 0.03 K/mm3 (0.0-2.0); BASO % 0.7 % (0.0-3.0); EOS # 0.1 (0.0-0.7); EOS % 2.7 % (1.5-5.0); GRAN # 1.95 (1.4-6.5); GRAN % 44.4 % (50.0-68.0); HEMATOCRIT 28.9 % (42.0-52.0); LYMPH # 1.7 (1.2-3.4); LYMPH % 38.5 % (22.0-35.0); MEAN CELL VOLUME 76.7 fL (80.0-105.0); MEAN CORPUSCULAR HEMOGLOBIN 24.4 pg (25.0-35.0); MEAN CORPUSCULAR HGB CONC 31.8 g/dl (31.0-37.0); MEAN PLATELET VOLUME 9.8 fl (7.0-11.0); MONO # 0.6 (0.1-0.6); MONO % 13.7 % (1.0-6.0); PLATELET COUNT 152 10^3/uL (120.0-450.0); RED CELL DISTRIBUTION WIDTH 16.5 % (11.5-14.5); WHITE BLOOD COUNT 4.4 10^3/ul (4.5-11.0)
[2016-06-09 03:38] LABS: ALKALINE PHOSPHATASE 96 U/L (38-133); ALT/SGPT 37 U/L (7-56); AST/SGOT 36 U/L (15-59); BILIRUBIN,TOTAL 0.9 mg/dL (0.2-1.3); BLOOD UREA NITROGEN 20 mg/dL (7-21); CALCIUM 8.3 mg/dL (8.4-10.5); CARBON DIOXIDE 29 mmol/L (21-33); CHLORIDE 98 mmol/L (98-107); GFR AFRICAN-AMERICAN > 60; GLUCOSE,RANDOM 103 mg/dL (70-110); POTASSIUM 3.8 mmol/L (3.6-5.0); SODIUM 133 mmol/L (132-148); TOTAL PROTEIN 6.5 g/dL (5.8-8.3)
[2016-06-09] MEDS: Sodium Chloride 0.9% 1,000 ML IV SCH ×2 (07:03→17:38)
[2016-06-09 07:55] LABS: PH,URINE 7.5 (4.7-8.0); URINE BILIRUBIN NEGATIVE (NEGATIVE); URINE BLOOD NEGATIVE (NEGATIVE); URINE GLUCOSE (UA) NEGATIVE (NEGATIVE); URINE KETONE NEGATIVE (NEGATIVE); URINE LEUKOCYTE ESTERASE NEGATIVE Leu/uL (NEGATIVE); URINE PROTEIN NEGATIVE mg/dL (<30 mg/dL); URINE UROBILINOGEN 0.2 E.U./dL (<1 E.U./dL)
[2016-06-09 08:03] LABS: URINE APPEARANCE CLEAR (CLEAR); URINE COLOR YELLOW (YELLOW)
--- NOTE | 2016-06-09 10:21 | RAD ---
HISTORY: fever COMPARISON: 05/30/2016 TECHNIQUE: Chest PA and lateral FINDINGS: LUNGS: No active pulmonary disease. PLEURA: No significant pleural effusion identified. No pneumothorax apparent. CARDIOVASCULAR: Normal. OSSEOUS STRUCTURES: No significant abnormalities. VISUALIZED UPPER ABDOMEN: Normal. OTHER FINDINGS: None. IMPRESSION: No active disease.
[2016-06-09] MEDS ORDERED: IBRUTINIB 560 MG PO SCH (11:00)
[2016-06-09] MEDS: Calcium-Vit D 250 mg-125 Units Tab UD PO SCH (11:07)
[2016-06-09] MEDS: Levalbuterol 1.25 MG/3 ML Inhal Soln UD IH PRN (11:15)
[2016-06-09 12:04] LABS: ARTERIAL BLOOD GAS HCO3 24.6 mmol/L (21-28); ARTERIAL BLOOD GAS O2 CAPACITY 12.3 mL/dl (16-24); ARTERIAL BLOOD GAS O2 CONTENT 11.7 ML/dl (15-23); ARTERIAL BLOOD GAS PH 7.42 (7.35-7.45); ARTERIAL BLOOD HGB O2 SAT 92.2 % (95.0-98.0); CARBOXYHEMOGLOBIN 2.4 % (0.5-1.5); HHB 4.4 % (0-5); METHEMOGLOBIN 0.9 % (0.0-3.0)
[2016-06-09] MEDS: Meropenem 1 GM in Sodium Chloride 0.9% 100 ML IVPB SCH ×2 (13:03→22:48)
[2016-06-09] MEDS: Vancomycin 1gm in NS 250ml 250 ML IVPB SCH (14:00)
[2016-06-09] MEDS ORDERED: Iodixanol 320 MG/ML 100 ML BOTTLE IV ONE (15:29)
--- NOTE | 2016-06-09 16:48 | CARD ---
APPROVED REPORT EKG Measurement Heart [id number] [id number] <Conclusion> Normal sinus rhythm Nonspecific T wave abnormality Prolonged QT Abnormal ECG
--- NOTE | 2016-06-09 16:51 | CT ---
PROCEDURE: CT Chest with contrast (Pulmonary Angiogram) HISTORY: r/o pe COMPARISON: CT chest 04/28/2016 TECHNIQUE: Axial computed tomography images were obtained of the chest in the pulmonary arterial phase of enhancement. Coronal and sagittal reformatted images were created and reviewed. Intravenous contrast dose: 100 mL Visipaque 320 Radiation dose: Total exam DLP = 432.29 mGy-cm. This CT exam was performed using one or more of the following dose reduction techniques: Automated exposure control, adjustment of the mA and/or kV according to patient size, and/or use of iterative reconstruction technique. FINDINGS: PULMONARY ARTERIES: Unremarkable. No pulmonary embolism. AORTA: No acute findings. No thoracic aortic aneurysm. LUNGS: Bilateral lower lobe subsegmental atelectasis. Minimal compressive atelectasis left lower lobe. Minimal compressive atelectasis left lower lobe secondary to small pleural effusion. Stable 5 mm subpleural nodule right upper lobe (series 5, image 43). . Stable 3 mm pleural-based nodule left upper lobe (series 5, image 45). No new pulmonary mass identified. PLEURAL SPACES: Small left pleural effusion. No right pleural effusion. No pneumothorax. HEART: Normal heart size. Right central venous infusion port. LYMPH NODES: Nonspecific sub cm mediastinal lymph nodes. No hilar lymphadenopathy. BONES, CHEST WALL: Unremarkable. No fracture or destructive lesion OTHER FINDINGS: Unremarkable. IMPRESSION: No evidence of pulmonary embolism. Small left pleural effusion. Bilateral lower lobe subsegmental atelectasis. Central venous infusion port.
[2016-06-09] MEDS: RANEXA 500 MG PO SCH (17:40)
--- NOTE | 2016-06-09 19:16 | CARD ---
APPROVED REPORT EXAM: Two-dimensional and M-mode echocardiogram with Doppler and color Doppler. INDICATION Infection:Rule out subacute bacterial endocarditis 2D DIMENSIONS Left Atrium (2D)3.6 (1.6-4.0cm)IVSd1.1 (0.7-1.1cm) LVDd4.0 (3.9-5.9cm)PWd1.0 (0.7-1.1cm) LVDs2.8 (2.5-4.0cm)FS (%) 28.8 % LVEF (%)56.0 (>50%) M-Mode DIMENSIONS Aortic Root2.50 (2.2-3.7cm)Aortic Cusp Exc.0.60 (1.5-2.0cm) Aortic Valve AoV Peak Abzblsam117.0cm/Lang Peak GR.19mmHg Mitral Valve E/A ratio0.0 TDI E/Lateral E'0.0E/Medial E'0.0 Tricuspid Valve TR Peak [id number] [id number] Peak Gr.32mmHg [id number] LEFT VENTRICLE The left ventricle is normal size. There is normal left ventricular wall thickness. The left ventricular function is normal.EF-55-60% There is normal LV segmental wall motion. Transmitral Doppler flow pattern is Grade III-reversible restrictive diastolic dysfunction. No left ventricle thrombus noted on this study. There is no ventricular septal defect visualized. There is no left ventricular aneurysm. There is no mass noted in the left ventricle. RIGHT VENTRICLE The right ventricle is normal size. There is normal right ventricular wall thickness. The right ventricular systolic function is normal. ATRIA The left atrium size is normal. The right atrium size is normal. The interatrial septum is intact with no evidence for an atrial septal defect. AORTIC VALVE The aortic valve is calcified and displays decreased opening. The aortic valve is moderately to severely sclerotic. There is mild to moderate aortic regurgitation. There is mild to moderate valvular aortic stenosis. There is no aortic valvular vegetation. MITRAL VALVE The mitral valve is thickened but opens well. Mitral regurgitation is trace to moild There is no mitral valve stenosis. There is no evidence of mitral valve prolapse. TRICUSPID VALVE The tricuspid valve leaflets are thickened , but open well. There is mild to moderate tricuspid regurgitation.RVSP-45 mm of Hg There is no tricuspid valve stenosis. There is no tricuspid valve prolapse or vegetation. PULMONIC VALVE The pulmonic valve is not well visualized. GREAT VESSELS The aortic root is normal in size. The ascending aorta is normal in size. The pulmonary artery is normal. The IVC is normal in size and collapses >50% with inspiration. PERICARDIAL EFFUSION There is no pleural effusion. There is no pericardial effusion. <Conclusion> Normal chamber Size. EF-55-60% There is trace to mild aortic regurgitation. There is mild to moderate valvular aortic stenosis. Mitral regurgitation is trace. There is mild to moderate tricuspid regurgitation.RVSP-45 mm of Hg. No Vegetatation or thrombus noted in this study, when compared from previous study 04/12 no significant change noted.
--- NOTE | 2016-06-09 21:31 | CP.PCM.CON ---
History of Present Illness - History of Present Illness History of Present Illness: 76 year old male with PMH of mantle cell lymphoma with history of chemotherapy, coronary artery disease, benign prostatic hyperplasia, dyslipidemia, history of urinary tract infection, history of candidemia, history of bilateral pneumonia was recently admitted in [facility] (Former[facility]) for left ankle skin and skin structure infection. He was successfully treated with 7 days of IV antibiotics with clinical improvement. He was well on discharge until about 2 days later when he developed fever and chills at home (yesterday). He is also complaining of a dry non-productive cough. He denies sore throat, no rhinorrhea, no headache or dizziness, no chest pain, no SOB, no dysphagia, no abdominal pain, no diarrhea, no dysuria, no leg pain. Infectious Diseases consult is requested to further evaluate and manage. Social history: patient does not smoke, no alcohol abuse or illicit drug use; he lives with his , has not traveled outside of [place] in the past 3 months Review of Systems - Review of Systems All systems: reviewed and no additional remarkable complaints except (as per HPI ) Past Patient History - Infectious Disease Hx of Infectious Diseases: None - Tetanus Immunizations Tetanus Immunization: Unknown - Past Medical History & Family History Past Medical History?: Yes Past Family History: Reviewed and not pertinent - Past Social History Smoking Status: Never Smoked Alcohol: None Drugs: Denies Home Situation {Lives}: With Family - CARDIAC Hx Cardiac Disorders: Yes Hx Hypertension: Yes - PULMONARY Hx Asthma: Yes Hx Pneumonia: No - NEUROLOGICAL HX Cerebrovascular Accident: No Hx Transient Ischemic Attacks (TIA): Yes - HEENT Hx HEENT Problems: Yes (wears eyeglasses) Hx Deafness: Yes Other/Comment: 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, uses a hearing aid in right ear also - RENAL Hx Chronic Kidney Disease: No Hx Renal Failure: No - ENDOCRINE/METABOLIC Hx Endocrine Disorders: No Hx Diabetes Mellitus Type 1: No Hx Diabetes Mellitus Type 2: Yes Hx Hypothyroidism: No - HEMATOLOGICAL/ONCOLOGICAL Hx Blood Disorders: No Hx Cancer: No - INTEGUMENTARY Hx Dermatological Problems: No - MUSCULOSKELETAL/RHEUMATOLOGICAL Hx Falls: Yes - GASTROINTESTINAL Hx Gastrointestinal Disorders: No - GENITOURINARY/GYNECOLOGICAL Hx Genitourinary Disorders: Yes (FREQUENCY,H/O UTI) Hx Reproductive Disorders: Yes (BPH) - PSYCHIATRIC Hx Psychophysiologic Disorder: No Hx Emotional Abuse: No Hx Physical Abuse: No Hx Substance Use: No - SURGICAL HISTORY Hx Orthopedic Surgery: Yes - ANESTHESIA Hx Anesthesia: Yes Hx Anesthesia Reactions: No Hx Malignant Hyperthermia: No Meds Allergies/Adverse Reactions: Allergies Allergy/AdvReac Type Severity Reaction Status Date / Time azithromycin Allergy Severe ANGIOEDEMA Verified 06/09/16 04:47 erythromycin base Allergy Severe ANGIOEDEMA Verified 06/09/16 04:47 Penicillins Allergy Severe ANAPHYLAXIS Verified 06/09/16 04:47 cephalexin monohydrate Allergy Intermediate RASH Verified 06/09/16 04:47 [From Keflex] gabapentin Allergy Intermediate RASH Verified 06/09/16 04:47 pregabalin Allergy Intermediate RASH Verified 06/09/16 04:47 Sulfa (Sulfonamide Allergy Intermediate RASH Verified 06/09/16 04:47 Antibiotics) nitro paste Allergy Intermediate DIZZINESS/H Uncoded 06/09/16 04:47 YPOTENSION - Medications Medications: Current Medications Sodium Chloride (Sodium Chloride 0.9%) 1,000 mls @ 100 mls/hr IV .Q10H ALEX Physical Exam - Constitutional Appears: Non-toxic, No Acute Distress - Head Exam Head Exam: NORMAL INSPECTION - ENT Exam ENT Exam: Mucous Membranes Moist - Neck Exam Neck exam: Negative for: Lymphadenopathy, Meningismus - Respiratory Exam Respiratory Exam: Decreased Breath Sounds Additional comments: right anterior chest wall port site clean and intact - Cardiovascular Exam Cardiovascular Exam: +S1, +S2 - GI/Abdominal Exam GI & Abdominal Exam: Soft. absent: Tenderness - Extremities Exam Extremities exam: Negative for: calf tenderness Additional comments: no pedal edema, no erythema Results - Vital Signs Recent Vital Signs: Last Vital Signs Temp 98.0 F 06/09/16 02:47 Pulse 78 06/09/16 02:47 Resp 18 06/09/16 02:47 BP 141/71 06/09/16 02:47 Pulse Ox 96 06/09/16 02:47 - Labs Result Diagrams: 06/09/16 03:10 06/09/16 03:10 Assessment & Plan - Assessment and Plan (Free Text) Plan: Assessment Fever at home, R/O sepsis, source to be determined history of left ankle skin and skin structure infection (Cellulitis, non- purulent) history of bilateral lower lobe healthcare-associated pneumonia with Stenotrophomonas, clinically improved and S/P treatment history of MSSA and Pseudomonas tracheobronchitis history of Shagufta parapsilosis fungemia, 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
--- NOTE | 2016-06-09 21:53 | CON ---
DATE: 06/09/2016 The patient in room 368, bed 2. REASON FOR CONSULTATION: Fever, chills, coronary artery disease, hypertension, hyperlipidemia, histo ry of angioplasty with stent insertion, mantle cell lymphoma. HISTORY OF PRESENT ILLNESS: The patient is a 76-year-old male with past medical history significant for coronary artery disease, history of stent insertion, hypertension, hyperlipidemia, Mantle cell ly mphoma, getting chemotherapy. The patient admitted with fever and chills. Denies any burning of uri ne. Denies any cough, expectoration, or sore throat: The patient denies shortness of breath or palp itation or chest pain. PAST MEDICAL HISTORY: Significant for multiple stents for coronary artery disease. Also, patient huddleston s done rotablation for coronary artery disease, mantle cell lymphoma, getting chemotherapy, last stre ss test was 07/07/2014, which was negative. The patient's previous past cardiac history: The patien t's first stent put in 2011, then patient had in-stent restenosis and underwent rotablation on 2011 at [facility], followed by PTCA of LAD and drug-eluting stent on 09/07/2013. Stress test, 06/07/2014, was negative for ischemia. Echo was done 04/12/2016 and showed normal-sized LV, n ormal ejection fraction 50% to 55%, mild to moderate aortic regurg, mild to moderate valvular aortic stenosis, mild to moderate mitral regurg, mild to moderate tricuspid regurg, no vegetation, thrombus was seen. PERSONAL HISTORY: The patient denies any smoking, denies drinking. ALLERGIES: THE PATIENT IS ALLERGIC TO AZITHROMYCIN, ERYTHROMYCIN, PENICILLIN, CEPHALEXIN, GABAPENTIN , LYRICA, SULFONAMIDE, AND NITROGLYCERIN PASTE. MEDICATIONS: Ecotrin 81 mg daily, Xopenex, metoprolol tartrate 25 mg p.o. at bedtime, Protonix 40 mg daily, Ranexa 500 b.i.d. PERSONAL HISTORY: No smoking, no drinking. REVIEW OF SYSTEMS: All the systems were reviewed, positive mentioned in the history, others were neg ative. PHYSICAL EXAMINATION: VITAL SIGNS: Blood pressure 136/74, respirations 16, pulse 88, temperature 102 at home. HEENT: Head is normocephalic. Eyes: Pupils normal. Conjunctivae slightly pale. NECK: JVP low. Carotid equal. THORAX: AP diameter normal. LUNGS: Clear to auscultation. CARDIOVASCULAR: S1, S2, soft systolic murmur, no rub. ABDOMEN: Soft. No organomegaly. Bowel sounds normal. EXTREMITIES: No clubbing, no cyanosis. LABORATORY DATA: WBC 4.4, hemoglobin 9.2, hematocrit 28.9, platelets 152. Sodium 133, potassium 3.8 , BUN 20, creatinine 0.9, calcium 8.3, bilirubin 0.9. AST, ALT, total protein, and albumin normal. Chest x-ray, no active disease. ECG showed normal sinus rhythm and nonspecific ST-T changes, prolonged QT. CT chest, no evidence of pulmonary embolism, small left pleural effusion and bilateral lower lobe sub segmental atelectasis. DIAGNOSES: Fever and chills, sepsis, coronary artery disease, status post angioplasty, stent inserti on, mantle cell lymphoma, getting chemotherapy, anemia, diabetes mellitus. PLAN: Aspirin 81 mg p.o. daily, furosemide 20 mg p.o. daily, Lipitor 20 mg p.o. daily, Lopid 600 b.i .d., metoprolol tartrate 25 mg p.o. at bedtime, mag oxide 400 mg p.o. daily, meropenem 1 g IV stat. w as given and now it will be q. 8 hourly, Pamelor 10 mg p.o. daily, Plavix 75 mg p.o. daily, aspirin 8 1 mg p.o. daily, Protonix 40 mg p.o. daily. She is getting IV therapy, vancomycin 1 g IV q. 12 hours . I have requested a repeat echo to see if there is any vegetations and after the echo, we will foll ow the echo report and we will follow with you. Thanh Holbrook MD cc: [id number] TT: 06/09/2016 21:52:16 Confirmation # [id number] Dictation # [id number]
--- NOTE | 2016-06-09 22:37 | CON ---
DATE: 06/09/2016 REFERRING PHYSICIAN: Dr. Myers. REASON FOR CONSULT: Shortness of breath. HISTORY OF PRESENT ILLNESS: This is a 76-year-old gentleman with multiple medical issues, recently d ischarged from the hospital after treatment of ankle cellulitis with vanco and meropenem. He was edward e only 2 days or so. Started getting chills, had a fever up to 102, take Tylenol, which improved the fever, but not feeling well and brought into [facility] ER where septic workup is b eing done. Started on antibiotic, admitted on the floor. Also, has some cough and shortness of caroline th. Blood gases done which shows hypoxemia. There is no hemoptysis, no hematemesis. No chest pain, no nausea. No vomiting, no diarrhea. No leg pain or leg swelling. PAST MEDICAL HISTORY: Mantle cell lymphoma, has a Port-A-Cath and been on chemotherapy, coronary art asim disease with multiple stents, history of lung cancer requiring wedge resection in the remote past , has a lung nodule, chronic lung disease. May have sleep apnea syndrome, but never had a sleep stud y done. BPH. Also have diabetes. SOCIAL HISTORY: Nonsmoker, nondrinker. FAMILY HISTORY: No significant cardiopulmonary disease reported. ALLERGY TO ZITHROMAX, ERYTHROMYCIN, PENICILLIN, CEPHALEXIN WHICH IS KEFLEX, GABAPENTIN, SULFA. NITRO PASTE, DEVELOPS HYPOTENSION. MEDICATIONS: Presently he is on aspirin 81 mg daily, Ditropan 5 mg daily. HOME MEDICATIONS: Imbruvica, also Rapaflo 8 mg daily, Lasix 20 mg daily, Lipitor 20 mg daily, Lopid 600 mg twice a day, metoprolol tartrate 25 mg daily, mag oxide 400 mg daily, meropenem 1 g q. 8 hours , vitamin D daily, nortriptyline 10 mg daily, Plavix 75 mg daily, Protonix 40 mg daily, IV fluid norm al saline 100 mL per hour, Tylenol p.r.n. basis, vancomycin 1 g q. 12 hours, Xopenex 1.25 mg q. 6 ivis rs p.r.n., Zofran p.r.n. basis. REVIEW OF SYSTEMS: No headache, no rhinitis. Has some cough and shortness of breath. No chest pain , no nausea, no vomiting. No diarrhea. No dysuria. No leg pain or leg swelling. PHYSICAL EXAMINATION: Sitting up in a bed, mild short of breath. Temp is 98, heart rate is 88, respiratory rate is 20, blood pressure 136/74, pulse ox 97% on 2 L nasa l cannula. HENT: Moist mucous membranes. Small oral cavity. Crowded airway. Mallampati score is 4. NECK: Supple. No JVD. LUNGS: Has a 1/3 of crackles on the left lung. HEART: S1 and S2. ABDOMEN: Soft, nontender. No organomegaly. EXTREMITIES: There is no edema. NEUROLOGICALLY: Awake, alert. Follows simple commands. LABORATORY DATA: Shows hemoglobin 9.2, hematocrit 28.9, WBC 4.4, platelet is 152. Blood gases shows pH 7.42, pCO2 of 38, O2 of 64; that was on room air. Sodium 133, potassium 3.8, chloride 98, bicarb juno 29, BUN 20, creatinine 0.9, glucose 103, calcium 8.3, total bilirubin 0.9. AST 36, ALT 37, alk phos is 96, albumin 3.2. His procalcitonin is 0.05. Urinalysis is unremarkable. Influenza A and B is negative. CAT scan of the chest had some atelectasis area, bilateral small pleural effusion, no definite infilt rate noted. Echocardiogram showed good LV function with pulmonary hypertension. IMPRESSION AND PLAN: Fever with chills. Recently had cellulitis of the ankle treated with vanco and meropenem. Coronary artery disease, history of coronary stent. Mantle cell lymphoma, been on chemo therapy, has a Port-A-Cath. Chronic lung disease. History of wedge resection of the lung secondary to lung cancer in the remote past. It may be compon ent of sleep apnea syndrome with cardiac diastolic dysfunction and pulmonary hypertension. Hypoxemia maybe could be explained secondary to diastolic heart failure with pulmonary hypertension. Has crac kles 1/3 up on the left lung. Cannot explain the fever. So far echocardiogram does not show any veg etations. Procalcitonin is negative. CAT scan is negative for PEN and a pneumonia. Can we blame Port-A-Cath? Is anyhow related to his ch emotherapies? Pulmonary point of view, I will suggest increasing the diuretics for now. Get proBNP for tomorrow. Continue gastric and DVT prophylaxis. Antibiotics as per infectious diseases. Thanh Duffy MD cc: [id number] TT: 06/09/2016 22:36:53 Confirmation # [id number] Dictation # [id number] jn
[2016-06-09] MEDS: RAPAFLO 8 MG PO SCH (22:45)
[2016-06-09] MEDS: Magnesium Oxide 400 mg Tab UD PO SCH (22:48)
[2016-06-10] MEDS: Vancomycin 1gm in NS 250ml 250 ML IVPB SCH ×2 (03:12→16:42)
[2016-06-10] MEDS: Meropenem 1 GM in Sodium Chloride 0.9% 100 ML IVPB SCH (06:20)
[2016-06-10] MEDS: Levalbuterol 1.25 MG/3 ML Inhal Soln UD IH PRN ×2 (07:27→13:09)
[2016-06-10] MEDS: Pantoprazole 40 mg EC Tab PO SCH (09:18)
[2016-06-10] MEDS: IMBRUVICA 140 MG PO SCH (09:19)
[2016-06-10] MEDS: RANEXA 500 MG PO SCH ×2 (09:19→17:46)
[2016-06-10] MEDS: Calcium-Vit D 250 mg-125 Units Tab UD PO SCH (09:20)
[2016-06-10] MEDS: Meropenem 1g/NS 100mL IVPB 100 ML IVPB SCH ×2 (15:13→22:34)
--- NOTE | 2016-06-10 15:14 | CP.PCM.PN ---
Subjective - Date & Time of Evaluation Date of Evaluation: 06/10/16 Time of Evaluation: 14:25 - Subjective Subjective: Comfortable, no fevers overnight, no nausea, still with some cough, no abdominal pain, no diarrhea. Complaining of some itching over the back of the knee and posterior thighs. Objective - Vital Signs/Intake and Output Vital Signs (last 24 hours): Temp Pulse Resp BP Pulse Ox 97.6 F 62 19 111/68 97 06/10/16 11:07 06/10/16 11:07 06/10/16 11:07 06/10/16 11:07 06/10/16 11:07 Intake and Output: 06/10/16 06/10/16 06:59 18:59 Intake Total 120 Balance 120 - Medications Medications: Current Medications Acetaminophen (Tylenol 325mg Tab) 650 mg PO Q6H PRN PRN Reason: Fever >100.4 F Aspirin (Aspirin Chewable) 81 mg PO DAILY [facility] Last Admin: 06/10/16 09:18 Dose: 81 mg Atorvastatin Calcium (Lipitor) 20 mg PO [facility] Last Admin: 06/09/16 22:45 Dose: 20 mg Calcium/Vitamin D (Oscal-D 250 Mg-125 Units Tab) 1 tab PO DAILY [facility] Last Admin: 06/10/16 09:20 Dose: 1 tab Clopidogrel Bisulfate (Plavix) 75 mg PO DAILY [facility] Last Admin: 06/10/16 09:18 Dose: 75 mg Furosemide (Lasix) 40 mg PO DAILY [facility] Last Admin: 06/10/16 09:18 Dose: 40 mg Gemfibrozil (Lopid) 600 mg PO BID [facility] Last Admin: 06/10/16 09:18 Dose: 600 mg Home Med (Home Med) 1 unit PO [facility] Last Admin: 06/09/16 22:45 Dose: 1 unit Home Med (Home Med) 1 unit PO BID [facility] Last Admin: 06/10/16 09:19 Dose: 1 unit Home Med (Home Med) 4 unit PO DAILY [facility] Last Admin: 06/10/16 09:19 Dose: 4 unit Vancomycin HCl (Vancomycin 1gm) 250 mls @ 167 mls/hr IVPB Q12H [facility] PRN Reason: Protocol Last Admin: 06/10/16 03:12 Dose: 167 mls/hr Meropenem 1g/NS 100mL IVPB (Meropenem 1g/Ns 100ml Ivpb) 100 mls @ 100 mls/hr IVPB Q8 ALEX PRN Reason: Protocol Stop: 06/16/16 14:01 Levalbuterol HCl (Xopenex) 1.25 mg IH [id number] PRN PRN Reason: Shortness of Breath Last Admin: 06/10/16 13:09 Dose: 1.25 mg Magnesium Oxide (Mag-Ox) 400 mg PO HS [facility] Last Admin: 06/09/16 22:48 Dose: 400 mg Metoprolol Tartrate (Lopressor) 25 mg PO HS [facility] Last Admin: 06/09/16 22:45 Dose: 25 mg Mupirocin (Bactroban Ointment) 1 gm TOP BID PRN PRN Reason: Itching / Pruritus Nortriptyline HCl (Pamelor) 10 mg PO DAILY [facility] Last Admin: 06/10/16 09:18 Dose: 10 mg Ondansetron HCl (Zofran Inj) 4 mg IVP Q6H PRN PRN Reason: Nausea/Vomiting Last Admin: 06/10/16 09:21 Dose: 4 mg Oxybutynin Chloride (Ditropan Tab) 5 mg PO DAILY [facility] Last Admin: 06/10/16 09:18 Dose: 5 mg Pantoprazole Sodium (Protonix Ec Tab) 40 mg PO ACB [facility] Last Admin: 06/10/16 09:18 Dose: 40 mg - Constitutional Appears: Non-toxic, No Acute Distress - Head Exam Head Exam: NORMAL INSPECTION - ENT Exam ENT Exam: Mucous Membranes Moist - Neck Exam Neck Exam: absent: Lymphadenopathy, Meningismus - Respiratory Exam Respiratory Exam: Decreased Breath Sounds Additional comments: right anterior chest wall port site clean and intact - Cardiovascular Exam Cardiovascular Exam: +S1, +S2 - GI/Abdominal Exam GI & Abdominal Exam: Soft. absent: Tenderness Assessment and Plan - Assessment and Plan (Free Text) Plan: Assessment Fever at home, R/O sepsis, source to be determined history of left ankle skin and skin structure infection (Cellulitis, non- purulent) history of bilateral lower lobe healthcare-associated pneumonia with Stenotrophomonas, clinically improved and S/P treatment history of MSSA and Pseudomonas tracheobronchitis history of Shagufta parapsilosis fungemia, probable source is the port-a-cath - S /P removal; now with new right anterior chest wall port-a-cath mantle cell lymphoma on chemotherapy coronary artery disease benign prostatic hyperplasia dyslipidemia history of urinary tract infection Plan started patient on Vancomycin and Meropenem day 2, pending final blood, urine cx ; PCT is <0.05; reviewed CT chest which does not show pneumonia Will continue to monitor clinically
[2016-06-10 17:37] VITALS: RESP 20
--- NOTE | 2016-06-10 18:18 | PN ---
DATE: 06/10/2016 REFERRING PHYSICIAN: Dr. Myers. SUBJECTIVE: He is lying in the bed, head at 45 degrees, sleepy, arousable, feels better. Decreased shortness of breath, still short of breath with exertion though. No headache, no rhinitis, no signif icant cough, no chest pain, no nausea, no vomiting, no diarrhea. No dysuria. No leg pain or leg swe lling. OBJECTIVE: GENERAL: No acute distress. VITAL SIGNS: Temperature is 98, heart rate 62, respiratory rate is 20, blood pressure 111/68, pulse ox 97% on nasal cannula. HEENT: Small oral cavity. Crowded airway. NECK: Supple. No JVD. LUNGS: Has crackles in the left lower lobe, which is improved from yesterday. HEART: S1, S2. ABDOMEN: Soft, nontender. No organomegaly. EXTREMITIES: There is no edema. NEUROLOGIC: Sleepy, arousable, follows simple command. MEDICATIONS: He is on aspirin 81 mg daily, Bactroban ointment to the affected area twice a day p.r.n ., Ditropan 5 mg daily, Lasix 40 mg daily, Lipitor 20 mg daily, Lopid 600 mg twice a day, metoprolol tartrate 25 mg at bedtime, ____ 400 mg at bedtime, meropenem 1 g IV q. 8 hours, vitamin D 1 tablet da agata, Nortriptyline 10 mg daily, Plavix 75 mg daily, Protonix 40 mg daily, Tylenol p.r.n. basis, vanc omycin 1 g IV q. 12 hours, Xopenex inhaled q. 6 hours p.r.n., Zofran on a p.r.n. basis. LABORATORY DATA: Reviewed. Noted ProBNP was 119, procalcitonin 0.05. Influenza A and B is negative . Microbiology: Blood culture and urine culture, there is no growth. Had a CT angio done which teresa ws no pulmonary embolism, no infiltrate. IMPRESSION AND PLAN: Recurrent infections, had a fever of 102 on admission with shortness of breath, has a known coronary artery disease, history of coronary stent, history of mantle cell lymphoma on c hemotherapy, has a Port-A-Cath. He has chronic obstructive lung disease, status post pneumonia, stat us post cellulitis, history of lung cancer requiring a wedge resection infection in the past, pulmona ry hypertension, probably have a cardiac ____ dysfunction, there may be component of sleep apnea synd niurka. I had a long discussion with infectious diseases, trying to find the cause of the recurrent in fection, other than of course he is on chemotherapy, Port-A-Cath, makes me suspicious, may need to do the septic workup and hold culture for a few days. I will suggest continue Lasix for now, treating diastolic dysfunction with pulmonary hypertension. Will encourage to try using the CPAP and see how he does at night time. He is also noncompliant with followup. For a number of years I have been sug gesting do PFT and attended sleep study. Gastric prophylaxis, DVT prophylaxis. Change nebulizer casey atments to around the clock. Thank you and will follow with you. Thanh Duffy MD cc: [id number] TT: 06/10/2016 18:17:09 Confirmation # [id number] Dictation # [id number] [place]
[2016-06-10] MEDS ORDERED: Levalbuterol 1.25 MG/3 ML Inhal Soln UD IH SCH (20:00)
[2016-06-10] MEDS: Levalbuterol 0.63 MG/3 ML Inhal Soln UD IH SCH ×2 (20:50→21:56)
[2016-06-10] MEDS: Magnesium Oxide 400 mg Tab UD PO SCH (22:34)
[2016-06-10] MEDS: RAPAFLO 8 MG PO SCH (22:35)
[2016-06-11] MEDS: Vancomycin 1gm in NS 250ml 250 ML IVPB SCH (02:30)
--- NOTE | 2016-06-11 04:05 | PN ---
DATE: 06/10/2016 REASON FOR CONSULTATION: Follow up fever, chills, coronary artery disease, hypertension, hyperlipide alivia, history of angioplasty, stent, mantle cell lymphoma, rule out endocarditis. BRIEF CLINICAL HISTORY: A 76-year-old male with a past medical history significant for coronary vladimir ry, history of stent PTCA, hypertension, hyperlipidemia, mantle cell lymphoma 2 weeks ago admitted wi th pneumonia. The patient began having fever and chills so cardiac consult was called to rule out en docarditis. The patient underwent yesterday echo that shows no definite evidence of vegetation, esse ntially unchanged from before. PHYSICAL EXAMINATION: VITAL SIGNS: Temperature afebrile, heart rate 60 and blood pressure 111/68. HEENT: PERRLA. Extraocular muscles intact. NECK: Supple. No carotid bruits. No thyromegaly. CHEST: Clear to auscultation. HEART: S1, S2 regular. ABDOMEN: Soft. EXTREMITIES: Clubbing and cyanosis negative. LABORATORY DATA: Blood workup as follows: WBC 4.8, hemoglobin 9.1, hematocrit 28.9 and platelet cou nt 152. Chemistry shows sodium 130, potassium 3.0, chloride , carbon dioxide 29, anion gap of 1 0, BUN 20 and creatinine 0.9. Procalcitonin less than 0.05, which is equivalent to negative. The p atient yesterday negative. IMPRESSION: Rule out sepsis, rule out endocarditis, coronary artery disease status post percutaneous coronary angioplasty and multiple mantle cell lymphoma. Last catheterization 11/09/2011. Last str ess test 06/07/2014 essentially normal. The patient yesterday underwent echocardiography that shows ejection fraction 55% to 60%, trace to mild mitral regurgitation, mild to moderate aortic stenosis, t race mitral regurgitation, mild to moderate tricuspid regurgitation 45, no vegetation or thromb us noted when compared no significant change noted. RECOMMENDATION: 1. Follow up blood culture. 2. Consider changing the Port-A-Cath, it is more than 4 years. If the blood cultures still remain p ositive after removal of Port-A-Cath then consider DENY. Otherwise, treat medically. Doubt if endoca rditis, possibly secondary to underlying hematologic malignancy causing the fever. Will follow with you. Because procalcitonin is 0.05, no evidence of sepsis. Thank you, Dr. . Thanh Hill MD cc: [id number] TT: 06/10/2016 17:15:31 Confirmation # [id number] Dictation # [id number]
[2016-06-11] MEDS: Meropenem 1g/NS 100mL IVPB 100 ML IVPB SCH (05:32)
[2016-06-11 05:58] LABS: HEMATOCRIT 31.7 % (42.0-52.0); MEAN CELL VOLUME 76.8 fL (80.0-105.0); MEAN CORPUSCULAR HEMOGLOBIN 24.2 pg (25.0-35.0); MEAN CORPUSCULAR HGB CONC 31.5 g/dl (31.0-37.0); RED CELL DISTRIBUTION WIDTH 16.8 % (11.5-14.5); WHITE BLOOD COUNT 4.8 10^3/ul (4.5-11.0)
[2016-06-11 06:15] LABS: ALKALINE PHOSPHATASE 91 U/L (38-133); ALT/SGPT 41 U/L (7-56); AST/SGOT 40 U/L (15-59); BILIRUBIN,TOTAL 0.9 mg/dL (0.2-1.3); BLOOD UREA NITROGEN 13 mg/dL (7-21); CALCIUM 8.5 mg/dL (8.4-10.5); CARBON DIOXIDE 31 mmol/L (21-33); CHLORIDE 101 mmol/L (98-107); GFR AFRICAN-AMERICAN > 60; GLUCOSE,RANDOM 120 mg/dL (70-110); SODIUM 138 mmol/L (132-148); TOTAL PROTEIN 6.9 g/dL (5.8-8.3)
[2016-06-11] MEDS: Levalbuterol 0.63 MG/3 ML Inhal Soln UD IH SCH ×3 (08:39→19:41)
[2016-06-11] MEDS: IMBRUVICA 140 MG PO SCH (10:03)
[2016-06-11] MEDS: RANEXA 500 MG PO SCH ×2 (10:03→17:47)
[2016-06-11] MEDS: Calcium-Vit D 250 mg-125 Units Tab UD PO SCH (10:04)
[2016-06-11] MEDS: Pantoprazole 40 mg EC Tab PO SCH (10:05)
--- NOTE | 2016-06-11 11:08 | RAD ---
HISTORY: chest pain COMPARISON: 06/09/2016 FINDINGS: LUNGS: No active pulmonary disease. PLEURA: No significant pleural effusion identified, no pneumothorax apparent. CARDIOVASCULAR: Normal. OSSEOUS STRUCTURES: No significant abnormalities. VISUALIZED UPPER ABDOMEN: Normal. OTHER FINDINGS: Port-A-Cath IMPRESSION: No active disease.
--- NOTE | 2016-06-11 12:09 | PN ---
DATE: 06/11/2016 REASON FOR CONSULTATION AND FOLLOWUP: Fever, chills, coronary artery disease, hypertension, hyperlip idemia, history of PTCA, stent, mantle cell lymphoma, rule out endocarditis. BRIEF CLINICAL HISTORY: A 76-year-old male with a past medical history significant for coronary vladimir ry disease, status post stent twice, history of hypertension, hyperlipidemia, mantle cell lymphoma, o n chemo. Admitted 2 weeks ago with pneumonia. The patient came back again with fever, chills, so ca rdiology consult was called to rule out endocarditis. The patient underwent echo, did not show any s ignificant change from previous echo. This morning, patient is complaining of itching all over body, ankle, 1 mg was given by Dr. Myers, but patient says it is not helping. Complained of mild shortness of breath. Later on, his (Dr. Marqeus) called, he had a burning sensation yesterday a nd the same burning sensation he gets when he had heart attack and on exertion, when he walks to the bathroom, he has a burning sensation, only 1 episode. On walking to the bathroom, he gets mild short of breath. PHYSICAL EXAMINATION: VITAL SIGNS: Temperature afebrile, heart rate 72, blood pressure 109/57. HEENT: PERRLA. Extraocular muscles intact. NECK: Supple. No carotid bruits. No thyromegaly. CHEST: Clear to auscultation. HEART: S1, S2 regular. ABDOMEN: Soft. EXTREMITIES: Clubbing, cyanosis negative. BLOOD WORKUP: WBC 4.8, hemoglobin 10.1, hematocrit 31.7, platelet count 170. Chemistry shows sodium 130, potassium 4, chloride 101, carbon dioxide , anion gap of 10, BUN 31, creatinine 0.9, rando m sugar 120, albumin 1.0. IMPRESSION: Atypical chest pain, mild shortness of breath, no evidence of endocarditis by echo, no c hange in echo, blood culture remains negative 48 hours, urine culture negative, history of coronary a rtery disease, status post percutaneous transluminal coronary angioplasty x 2, history of mantle cell lymphoma, history of chemo. Repeat echo day before yesterday shows ejection fraction 55%-60%, trace to mild mitral regurgitation, mild to moderate aortic stenosis, trace mitral regurgitation, mild to moderate tricuspid regurgitation, right ventricular systolic pressure 45, calcified aortic valve, but no obvious vegetation noted. RECOMMENDATION: 1. Follow up blood culture. 2. Consider changing the Port-A-Cath more than 4 months and if the blood culture remains positive af ter changing, if turns out to be positive, consider DENY, but otherwise no indication for DENY at this time. The fever, doubt it is secondary to endocarditis, possibly secondary to underlying malignancy. Complaining of shortness of breath. We will get a stat chest x-ray, PA and lateral. Yesterday, he complained of burning sensation, according to Dr. Marques, his (the same burning sensation he h ad when he had last time heart attack), so will get EKG. We will get a stat troponin. Suggested to Dr. Marques the patient needs Lasix because a few crackles. Initially, he did not want Lasix because it make him to go to the bathroom, but I told him that Lasix and also checked with the nurse. The patient already got Lasix that was given IV. Later on, we will repeat chest x-ray. If blood pr essure remains stable, maybe we will give 20 of Lasix IV, depending upon the hospital course. We alyce l follow with you. Thank you, Dr. Myers, for providing us the opportunity in taking care of the patient. Thanh Hill MD cc:Ted Santoyo MD [id number] TT: 06/11/2016 12:08:33 Confirmation # [id number] Dictation # [id number] en
--- NOTE | 2016-06-11 12:11 | CARD ---
APPROVED REPORT EKG Measurement Heart [id number] <Conclusion> Normal sinus rhythm Nonspecific T wave abnormality Abnormal ECG
--- NOTE | 2016-06-11 13:40 | CP.PCM.PN ---
Subjective - Date & Time of Evaluation Date of Evaluation: 06/11/16 Time of Evaluation: 12:25 - Subjective Subjective: Comfortable on a chair, afebrile, not in distress. Complaining of itching in the foot and back of the leg. Objective - Vital Signs/Intake and Output Vital Signs (last 24 hours): Temp Pulse Resp BP Pulse Ox 98 F 72 20 109/57 L 95 06/11/16 09:38 06/11/16 09:38 06/11/16 09:38 06/11/16 10:30 06/11/16 09:38 Intake and Output: 06/11/16 06/11/16 06:59 18:59 Intake Total 120 Output Total 400 Balance -280 - Medications Medications: Current Medications Acetaminophen (Tylenol 325mg Tab) 650 mg PO Q6H PRN PRN Reason: Fever >100.4 F Aspirin (Aspirin Chewable) 81 mg PO DAILY [facility] Last Admin: 06/11/16 10:04 Dose: 81 mg Atorvastatin Calcium (Lipitor) 20 mg PO [facility] Last Admin: 06/10/16 22:35 Dose: 20 mg Calcium/Vitamin D (Oscal-D 250 Mg-125 Units Tab) 1 tab PO DAILY [facility] Last Admin: 06/11/16 10:04 Dose: 1 tab Clopidogrel Bisulfate (Plavix) 75 mg PO DAILY [facility] Last Admin: 06/11/16 10:05 Dose: 75 mg Fluocinonide (Lidex 0.05% Cream) 0 gm TOP BID PRN PRN Reason: Itching / Pruritus Furosemide (Lasix) 40 mg PO DAILY [facility] Last Admin: 06/11/16 10:30 Dose: 40 mg Gemfibrozil (Lopid) 600 mg PO BID [facility] Last Admin: 06/11/16 10:04 Dose: 600 mg Home Med (Home Med) 1 unit PO HS [facility] Last Admin: 06/10/16 22:35 Dose: 1 unit Home Med (Home Med) 1 unit PO BID [facility] Last Admin: 06/11/16 10:03 Dose: 1 unit Home Med (Home Med) 4 unit PO DAILY [facility] Last Admin: 06/11/16 10:03 Dose: 4 unit Levalbuterol HCl (Xopenex) 0.63 mg IH TIDRESP [facility] Last Admin: 06/11/16 08:39 Dose: 0.63 mg Magnesium Oxide (Mag-Ox) 400 mg PO HS [facility] Last Admin: 06/10/16 22:34 Dose: 400 mg Metoprolol Tartrate (Lopressor) 25 mg PO HS [facility] Last Admin: 06/10/16 22:34 Dose: 25 mg Mupirocin (Bactroban Ointment) 1 gm TOP BID PRN PRN Reason: Itching / Pruritus Last Admin: 06/10/16 17:47 Dose: 1 gm Nortriptyline HCl (Pamelor) 10 mg PO DAILY [facility] Last Admin: 06/11/16 10:06 Dose: Not Given Ondansetron HCl (Zofran Inj) 4 mg IVP Q6H PRN PRN Reason: Nausea/Vomiting Last Admin: 06/11/16 10:01 Dose: 4 mg Oxybutynin Chloride (Ditropan Tab) 5 mg PO DAILY [facility] Last Admin: 06/11/16 10:04 Dose: 5 mg Pantoprazole Sodium (Protonix Ec Tab) 40 mg PO ACB [facility] Last Admin: 06/11/16 10:05 Dose: 40 mg - Labs Labs: 06/11/16 05:50 06/11/16 05:50 - Constitutional Appears: Non-toxic, No Acute Distress - Head Exam Head Exam: NORMAL INSPECTION - ENT Exam ENT Exam: Mucous Membranes Moist - Neck Exam Neck Exam: absent: Lymphadenopathy, Meningismus - Respiratory Exam Respiratory Exam: Decreased Breath Sounds - Cardiovascular Exam Cardiovascular Exam: +S1, +S2 Additional comments: right anterior chest wall port site clean and non-tender - GI/Abdominal Exam GI & Abdominal Exam: Soft. 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
--- NOTE | 2016-06-11 13:47 | CP.PCM.PN ---
Subjective - Date & Time of Evaluation Date of Evaluation: 06/10/16 Time of Evaluation: 14:00 - Subjective Subjective: No acute complaints. Complains of some itching on RLE and and behind left polpiteal fossa. ROS: no fevers; chills; n/v; bowel/urinary changes; headaches; vision changes; focal weakness; CP; SOB Objective - Vital Signs/Intake and Output Vital Signs (last 24 hours): Temp Pulse Resp BP Pulse Ox 98 F 72 20 109/57 L 95 06/11/16 09:38 06/11/16 09:38 06/11/16 09:38 06/11/16 10:30 06/11/16 09:38 Intake and Output: 06/11/16 06/11/16 06:59 18:59 Intake Total 120 Output Total 400 Balance -280 - Medications Medications: Current Medications Acetaminophen (Tylenol 325mg Tab) 650 mg PO Q6H PRN PRN Reason: Fever >100.4 F Aspirin (Aspirin Chewable) 81 mg PO DAILY [facility] Last Admin: 06/11/16 10:04 Dose: 81 mg Atorvastatin Calcium (Lipitor) 20 mg PO [facility] Last Admin: 06/10/16 22:35 Dose: 20 mg Calcium/Vitamin D (Oscal-D 250 Mg-125 Units Tab) 1 tab PO DAILY [facility] Last Admin: 06/11/16 10:04 Dose: 1 tab Clopidogrel Bisulfate (Plavix) 75 mg PO DAILY [facility] Last Admin: 06/11/16 10:05 Dose: 75 mg Fluocinonide (Lidex 0.05% Cream) 0 gm TOP BID PRN PRN Reason: Itching / Pruritus Furosemide (Lasix) 40 mg PO DAILY [facility] Last Admin: 06/11/16 10:30 Dose: 40 mg Gemfibrozil (Lopid) 600 mg PO BID [facility] Last Admin: 06/11/16 10:04 Dose: 600 mg Home Med (Home Med) 1 unit PO HS [facility] Last Admin: 06/10/16 22:35 Dose: 1 unit Home Med (Home Med) 1 unit PO BID [facility] Last Admin: 06/11/16 10:03 Dose: 1 unit Home Med (Home Med) 4 unit PO DAILY [facility] Last Admin: 06/11/16 10:03 Dose: 4 unit Levalbuterol HCl (Xopenex) 0.63 mg IH TIDRESP [facility] Last Admin: 06/11/16 08:39 Dose: 0.63 mg Magnesium Oxide (Mag-Ox) 400 mg PO HS [facility] Last Admin: 06/10/16 22:34 Dose: 400 mg Metoprolol Tartrate (Lopressor) 25 mg PO HS [facility] Last Admin: 06/10/16 22:34 Dose: 25 mg Mupirocin (Bactroban Ointment) 1 gm TOP BID PRN PRN Reason: Itching / Pruritus Last Admin: 06/10/16 17:47 Dose: 1 gm Nortriptyline HCl (Pamelor) 10 mg PO DAILY [facility] Last Admin: 06/11/16 10:06 Dose: Not Given Ondansetron HCl (Zofran Inj) 4 mg IVP Q6H PRN PRN Reason: Nausea/Vomiting Last Admin: 06/11/16 10:01 Dose: 4 mg Oxybutynin Chloride (Ditropan Tab) 5 mg PO DAILY [facility] Last Admin: 06/11/16 10:04 Dose: 5 mg Pantoprazole Sodium (Protonix Ec Tab) 40 mg PO ACB [facility] Last Admin: 06/11/16 10:05 Dose: 40 mg - Labs Labs: 06/11/16 05:50 06/11/16 05:50 - Constitutional Appears: Well - Respiratory Exam Respiratory Exam: Clear to Ausculation Bilateral, NORMAL BREATHING PATTERN - Cardiovascular Exam Cardiovascular Exam: REGULAR RHYTHM, +S1, +S2. absent: Murmur - GI/Abdominal Exam GI & Abdominal Exam: Soft, Normal Bowel Sounds. absent: Tenderness - Extremities Exam Extremities Exam: Full ROM, Normal Capillary Refill, Normal Inspection. absent : Joint Swelling, Pedal Edema - Skin Skin Exam: Dry Assessment and Plan (1) Lymphoma Status: Acute - Assessment and Plan (Free Text) Assessment: Mr. Marques dao 76 y/o man with pmhx significant for mantle cell lymphoma currently on tx, CAD, BPH, frequent UTI's, candidemia, and recent admission to [facility] [place] for LLE cellulitis s/p 7 day of parenteral infections who has been recently admitted for fevers at home. Thus far patient has had no repeat fevers, nor any infectious organisms isolated from blood or urine cultures. Furthermore patient' s pro-calcitonin is wnl. After discussion with ID will plan on holding vanc/ tremayne as patietn appears clinically at baseline and will observe closely. If patient deteriates and/or had fevers will need to consider other sources of infection including possible DENY (though TTE was negative for vegetation) and mediport among other things. If stable off abx in next 24-48 hrs will consider for discharge. Recommended emollients for dry skin. Tyler Myers MD [facility] Serv[facility] p: [phone]
[2016-06-11 14:43] LABS: ARTERIAL BLOOD GAS HCO3 27.9 mmol/L (21-28); ARTERIAL BLOOD GAS O2 CAPACITY 13.5 mL/dl (16-24); ARTERIAL BLOOD GAS O2 CONTENT 13.2 ML/dl (15-23); ARTERIAL BLOOD GAS PH 7.43 (7.35-7.45); ARTERIAL BLOOD HGB O2 SAT 95.3 % (95.0-98.0); HHB 2.2 % (0-5); METHEMOGLOBIN 0.4 % (0.0-3.0)
--- NOTE | 2016-06-11 17:07 | PN ---
DATE: 06/11/2016 REFERRING PHYSICIAN: Dr. Myers SUBJECTIVE: The patient is out of bed to chair, feels better today, still gets short of breath with exertion. No headache, no rhinitis, no nausea, no vomiting, no diarrhea, no leg pain or leg swelling . OBJECTIVE: GENERAL: No acute distress. VITAL SIGNS: Temperature is 98, heart rate is 72, respiratory rate is 20, blood pressure 109/57, pul se ox 95% on room air. HEENT: Moist mucous membranes. Small oral cavity. Crowded airway. NECK: Supple. No JVD. LUNGS: Has a left chest base crackles. HEART: S1 and S2. ABDOMEN: Soft, nontender. No organomegaly. EXTREMITIES: There is no edema. NEUROLOGIC: Awake, alert, follows simple command. MEDICATIONS: He is on aspirin 81 mg daily, Bactroban ointment to affected area twice a day, oxybutyn in is 5 mg daily, Lasix 40 mg daily, Lidex 0.05 affected area, Lipitor 20 mg daily, Lopid 600 mg twic e a day, metoprolol tartrate is at 25 mg at bedtime, mag oxide 400 mg at bedtime, Pamelor 10 mg daily , Plavix 75 mg daily, Protonix 40 mg daily, Tylenol p.r.n. basis, Xopenex q. 8 hours, Zofran p.r.n. b asis. LABORATORY DATA: Shows hemoglobin 10.0, hematocrit 31.7, WBC 4.8, platelet is 170. Blood gases on r oom air done today shows pH 7.43, pCO2 42, O2 is 78. This is on room air. Sodium 138, potassium 4.0 , chloride 101, bicarbonate 31, BUN 13, creatinine 0.9, glucose 120, calcium is 8.5, AST 40, ALT 41, alkaline phosphatase is 91. Troponin less than 0.01. Albumin is 3.5. Microbiology: Blood cultures , urine culture, there is no growth. Chest x-ray done today shows no active disease. IMPRESSION AND PLAN: Recurrent fever, last one was up to 102 on admission. No causative agent or si te yet. Antibiotics are being stopped and we will have repeat blood culture being requested to the l ab to hold the culture for 2 weeks. Other issues are cardiac diastolic dysfunction with pulmonary hy pertension. Lasix has been increased to 40 mg. Also, need to rule out sleep apnea syndrome. I will try CPAP tonight. He does have a mantle cell lymphoma, chronic lung disease, history of lung cancer requiring wedge resection in the past. Case discussed with Dr. Myers in detail. Also spoke to Dr Edwin Marques, patient's in detail. Gastric prophylaxis. Deep venous thrombosis prophylaxis. We w ill schedule an attended sleep study and PFT as outpatient. Thank you and we will follow with you. Thanh Duffy MD cc: [id number] TT: 06/11/2016 17:06:50 Confirmation # [id number] Dictation # [id number] en
[2016-06-11] MEDS: RAPAFLO 8 MG PO SCH (21:52)
[2016-06-11] MEDS: Magnesium Oxide 400 mg Tab UD PO SCH (21:53)
[2016-06-12 06:11] LABS: HEMATOCRIT 29.9 % (42.0-52.0); MEAN CELL VOLUME 76.1 fL (80.0-105.0); MEAN CORPUSCULAR HEMOGLOBIN 23.9 pg (25.0-35.0); MEAN CORPUSCULAR HGB CONC 31.4 g/dl (31.0-37.0); MEAN PLATELET VOLUME 10.1 fl (7.0-11.0); PLATELET COUNT 150 10^3/uL (120.0-450.0); RED CELL DISTRIBUTION WIDTH 16.6 % (11.5-14.5)
[2016-06-12 06:45] LABS: ADD MANUAL DIFF? YES
[2016-06-12 06:55] LABS: BLOOD UREA NITROGEN 14 mg/dL (7-21); CALCIUM 8.5 mg/dL (8.4-10.5); CARBON DIOXIDE 31 mmol/L (21-33); CHLORIDE 100 mmol/L (98-107); GFR AFRICAN-AMERICAN > 60; GLUCOSE,RANDOM 111 mg/dL (70-110); PHOSPHOROUS 3.3 mg/dL (2.5-4.5); POTASSIUM 3.9 mmol/L (3.6-5.0); SODIUM 137 mmol/L (132-148)
[2016-06-12 07:01] LABS: BAND 2 % (0-2)
[2016-06-12 07:03] LABS: BASOPHIL 2 % (0.0-1.0)
[2016-06-12 07:04] LABS: EOSINOPHIL 6 % (0.0-3.0)
[2016-06-12 07:05] LABS: METAMYELOCYTE 1 %; NEUTROPHIL 31 % (50.0-70.0); PLATELET ESTIMATE NORMAL (NORMAL)
[2016-06-12] MEDS: Levalbuterol 0.63 MG/3 ML Inhal Soln UD IH SCH ×2 (07:44→13:58)
[2016-06-12 07:52] VITALS: BP 119/73; PULSE 62; TEMP 97.9; O2SAT 94
[2016-06-12] MEDS: Pantoprazole 40 mg EC Tab PO SCH (08:16)
--- NOTE | 2016-06-12 08:17 | PN ---
DATE: 06/11/2016 LOCATION: The patient is in room 368, bed 2. PROBLEMS: This is a 76-year-old male with a past medical history significant for coronary artery dis ease, status post stenting, history of hypertension and hyperlipidemia, admitted with new diagnosis f or stage IV recurrent mantle cell lymphoma, on active chemotherapy with and Rituxan. Is admit mya with a recent history of fevers and chills the before the admission. The patient had to go to [facility] 2 weeks prior to this when he was admitted with bilobar pneumonia. The patient upon admission has been started on vancomycin and Merrem. Blood cultures have been negative at 48 hours. His anti biotics were just stopped as of today. The patient had an echo done yesterday, which did not show an y significant changes such as findings of new cardiac issues or evidence of endocarditis. PLAN: The patient had one episode of burning sensation in the chest, especially on exertion like he had when he had his heart attack and this happened to him last night when he was walking to the bathr o. The patient had stat EKG done today along with troponins, which have been negative. The patien t is breathing comfortably and has no issues with his breathing at this point in time, very short of breath on exertion. The patient did receive Lasix 1 dose because of the feeling the key ringer had that he had some crackles in the lung base. This could be indicative of diastolic dysfunction which may be the cause to some degree of his breathing issues. PHYSICAL EXAMINATION: VITAL SIGNS: Stable. T-max is 98.4, heart rate is 72, blood pressure is 106/57. HEENT: Head is normocephalic, atraumatic. Conjunctivae pale. Sclerae are anicteric. Pupils are eq ually reactive to light and accommodation. Examination of the oropharynx reveals the patient to be _ ____. No oral lesions are noted. There is no evidence of any issues with ulceration of the tongue. No evidence of candidiasis. NECK: Supple. There is no adenopathy. No jugular venous distention is noted. LUNGS: Relatively clear to percussion and auscultation. HEART: Reveals S1 and S2 to be normal. No gallop or murmur is heard. ABDOMEN: Soft, nontender. Bowel sounds are present. EXTREMITIES: Reveals no cyanosis, clubbing or edema. Previous changes in the ankle are no longer se en. LABORATORY DATA: From today reveal a white count of 4.8, hemoglobin 10.1, hematocrit 31, platelet co unt 170. Chemistries: Sodium 130, K is 4, chloride is 101, anion gap of 10, BUN of 31, creatinine 0 .9, blood sugar 120. MEDICATIONS: The patient's medications were reviewed and he is on the same medicines except for the antibiotic being stopped. He is on aspirin 81 mg daily, Bactroban 1 gram topically to the affected a reas b.i.d. The patient has been complaining of some itching on his legs for which he has been prescr ibed topical fluocinonide for the itching. The patient is on Ditropan 5 mg daily. He is on ibrutini b 4 capsules, each capsule is 140 mg, daily. He is on Ranexa 500 b.i.d. He is on Lasix 40 daily, at orvastatin 20 mg daily, Lopid 600 mg b.i.d., Lopressor 25 mg p.o. at bedtime, mag ox at 40 mg p.o. at bedtime, calcium and vitamin D Os-Dio 350 one daily, Pamelor 10 mg p.o. daily. He is on Plavix 75 m g daily, pantoprazole 40 mg p.o. daily, 350 p.o. q. 6 days, Xopenex 0.63 mg inhaled t.i.d. and Zofran 4 mg IV q. 6 hours p.r.n. ASSESSMENT NOTES AND PLAN: Chest x-ray from today does not reveal anything acute. I discussed my fi ndings with Dr. Duffy and Dr. Hill. Troponins have been ordered q. 8 hours for [address] Hill d id a ABG on the patient after doing 3 rounds of walking around the nurse's station and PO2 is now in the 70s . This is consistent with his COPD and he could have some diastolic component of dysfun ction which may be contributing to his heart failure and he definitely has pulmonary hypertension. A ll this combined could account for some of his symptoms. He said the patient would benefit from BiPA P over the long run and, if even the cardiac issues come back as normal, we are going to see if his c ardiac medicines, such as Ranexa, could be increased without causing major side effects. manag ement, I will check with Dr. Hill in the end. In the meantime, current workup for acute cardiac even ts have been negative. I spoke to regarding the blood cultures to check for high CDK organ isms and the blood cultures are going to be kept over for 14 days to check for bacterial endocarditis that was not picked up on routine cultures for the organisms. In the meantime, I told the pat ient and the that we would hold off on the Rituxan scheduled for a.m. until all these issues are resolved and probably postpone it until next week, but will continue the . He is off the antib iotics. A.M. labs have been requested. Alie Myers MD cc: [id number] TT: 06/11/2016 23:47:06 Confirmation # [id number] Dictation # [id number] mn
--- NOTE | 2016-06-12 08:18 | HP ---
A 76-year-old male with a history of stage IV mantle cell lymphoma, currently on active chemotherapy with Rituxan given intravenously once a month along with Imbruvica that he takes 4 capsules, each cap kimi 140 mg, once daily. On this regimen, the patient was recently in the hospital with bilateral pn eumonitis, which on a CAT scan actually showed trilobar pneumonia, treated actively with antibiotics successfully, went home. The patient has also been getting IV gamma globulin. His next dose of Miracle román would have been on 06/12. The patient was recently in the hospital with swelling of the left ankl e and left foot with cellulitic lesions on the lateral aspect of the foot, which was treated initiall y with doxycycline as an outpatient, was not improving, was admitted to the hospital, started on vanc omycin and Merrem, completed 7 days of antibiotics. The cellulitic changes on the medial side of his ankle got better, he went home and had been home for less than 3 days and he is now back in the hosp ital after the called me early this morning that he was spiking temperature up to 102 since the afternoon. It was coming in waves without any nausea, vomiting. The patient was feeling weak and sh ort of breath, and patient was, after being assessed in the ER, admitted for observation. The patien t is also noted to be slightly hypoxic with shortness of breath on exertion. PAST MEDICAL HISTORY: Significant for coronary artery disease with stents, history of lung cancer, h istory of diabetes and is on active chemotherapy. REVIEW OF SYSTEMS: The patient denies any history of nausea or vomiting, but has been having signifi cant fevers and chills. Denies any history of chest pain, abdominal pain, dysuria, or hematuria. Th e patient has been feeling weak. ALLERGIES: THE PATIENT HAS MANY ALLERGIES INCLUDING AZITHROMYCIN, ERYTHROMYCIN, PENICILLIN, CEPHALEX IN, GABAPENTIN, LYRICA, SULFONAMIDE, AND NITRO PASTE. HOME MEDICATIONS: Reviewed, includes Ranexa 500 b.i.d., aspirin 81 mg daily, oxybutynin 5 mg p.o. da agata, Xopenex 1.25 mg q. 6 hours p.r.n., Tylenol p.r.n., Chloraseptic lozenges 1 p.o. daily, insulin c overage as needed, metoprolol 25 mg p.o. daily, Zofran 4 mg ODT as needed, pantoprazole 40 mg p.o. da agata, MiraLax as needed. PHYSICAL EXAMINATION: GENERAL: The patient is awake, alert, and oriented, examined in bed. VITAL SIGNS: T-max was 101.2, pulse was in the high 80s, 84, respirations 16, blood pressure 105/61, pulse ox is %, but this is on 3 liters of oxygen the patient is currently on. HEENT: Head is normocephalic, atraumatic. Conjunctivae pale. Sclerae are anicteric. Pupils are eq ually reactive to light and accommodation. Examination of the mouth, the patient is edentulous, tong ue is dry, no lesions are seen. There is no mucositis. There is no evidence of candidiasis. LUNGS: Relatively clear to percussion and auscultation. The patient has no evidence of accessory mu scle use. Expiratory phase of breathing is prolonged. CARDIOVASCULAR: Reveals S1 and S2 to be normal. There is no gallop or murmur heard. ABDOMEN: Soft, mildly protuberant, and nontender. No rebound, rigidity or guarding is noted. NEUROLOGIC: Reveals higher functions to be normal, no focal deficits are noted. SKIN: Turgor is normal. No skin lesions per se are noted. PSYCHIATRIC: The patient is awake, alert, and oriented, in no significant distress. LABORATORY DATA: From today were reviewed. White count is 4.4, hemoglobin 9.2, hematocrit 28, MCV o f 76.7, MCH of 24.4, platelet count of 152,000. Sodium is 133, K is 3.8, chloride 98, CO2 is 29, BUN is 20, creatinine 0.9 and blood sugar is 103. VBG base excess is 2.5, which is high. Calcium is 8. 3, but corrected calcium is normal. Alkaline phosphatase is in normal limits. Total protein is 6.5 with an albumin of 3.2. Electrolytes are normal. Creatinine is 0.9. Chest x-ray, PA and lateral, s hows no acute infiltrates at this time. The patient's oxygenation status was rechecked after discont inuing the nasal O2 for about 10 minutes. Blood gases done revealed a pO2 in the 60s, which needs to be monitored. ASSESSMENT NOTES AND PLAN: The patient is readmitted with fevers and chills on the background histor y of having stage IV mantle cell lymphoma, was at home on oral doxycycline, just completed 7-day cour se of vancomycin and Merrem and is now admitted with fevers. We are going to have to look to see [facility] direction we should proceed. In view of the hypoxia, I have asked Dr. Duffy, mainframe developer, and Dr. Hill and Dr. Holbrook, cardiologists, to reexamine his situation to make sure we are ruling out car diac or pulmonary causes. The patient may need a CT angio if necessary. We will wait for input from pulmonary. We may have to do again venous Doppler studies as well. Routine post exam instructions have been given to the patient. I have spoken in detail with the patient's , in great detail at this time. Alie Myers MD cc: [id number] TT: 06/09/2016 15:27:13 en
[2016-06-12] MEDS: Calcium-Vit D 250 mg-125 Units Tab UD PO SCH (10:01)
[2016-06-12] MEDS: IMBRUVICA 140 MG PO SCH (10:04)
[2016-06-12] MEDS: RANEXA 500 MG PO SCH ×2 (10:04→17:13)
--- NOTE | 2016-06-12 14:07 | CARD ---
APPROVED REPORT EKG Measurement Heart [id number] <Conclusion> Normal sinus rhythm Nonspecific T wave abnormality
--- NOTE | 2016-06-12 14:44 | PN ---
DATE: 06/12/2016 The patient is in room 368, bed 2. REASON FOR CONSULTATION AND FOLLOWUP: Fever, chills, coronary artery disease, hypertension, hyperlip idemia, history of PTCA, stent, mantle cell lymphoma, rule out endocarditis. HISTORY OF PRESENT ILLNESS: A 76-year-old male with past medical history significant for coronary ar fina disease status post stent twice, history of hypertension, hyperlipidemia, mantle cell lymphoma o n chemotherapy, admitted 2 weeks ago with pneumonia. The patient then again came back with fever, ch ills. The patient underwent echocardiogram, which did not show any significant change from previous echo. The patient denies any chest pain, palpitation, no shortness of breath at present. He is lyin g comfortably in bed. PHYSICAL EXAMINATION: VITAL SIGNS: Blood pressure 119/73, respirations 20, pulse 62, temperature 97.9. HEAD: Normocephalic. EYES: Pupils are normal. Conjunctivae are slightly pale. NECK: JVP low. Carotids equal. THORAX: AP diameter normal. LUNGS: Clear. CARDIOVASCULAR: S1, S2. ABDOMEN: Soft, nontender. No organomegaly. EXTREMITIES: No clubbing, no cyanosis. LABORATORY DATA: WBC 4.0, hemoglobin 9.4, hematocrit 29.9, platelets 150. Sodium 137, potassium 3.9 , BUN 14, creatinine 1.0. Three troponins are negative. They were done because the patient complain ed of slight chest pain 2 days ago. DIAGNOSES: Fever and chills. Blood cultures remain negative after 48 hours. History of coronary ar fina disease status post coronary angioplasty x 2, mantle cell lymphoma, is getting chemotherapy. Re peat echo ejection fraction 55-60%, [id number] mitral regurgitation, mild to moderate aortic steno sis, trace mitral regurgitation, mild to moderate tricuspid regurgitation, right ventricle systolic p ressure 45, suggestive of mild pulmonary hypertension. No obvious vegetation seen on echo. PLAN: If the patient gets recurrent fever again, recommend to change the Port-A-Cath. After that, i f he still gets a fever, then we will have to do DENY to rule out endocarditis, and in the meantime, w e will continue present therapy, aspirin 81 mg p.o. daily, Ditropan 5 mg p.o. daily, furosemide 40 da agata, Lipitor 20 daily, Lopid 600 b.i.d. metoprolol 25 mg p.o. at bedtime, Plavix 75 mg daily. The pa tient also is to continue Ranexa 500 b.i.d. We will continue present therapy, and we will follow monroe dickerson. Thanh Holbrook MD cc: [id number] TT: 06/12/2016 14:43:58 Confirmation # [id number] Dictation # [id number] jn
--- NOTE | 2016-06-12 20:17 | PN ---
DATE: 06/12/2016 REFERRING PHYSICIAN: Dr. Myers. SUBJECTIVE: He is lying in the bed, head at 45 degrees. Tolerated CPAP well overnight. No headache , no rhinitis. Shortness of breath is better. No nausea, no vomiting or diarrhea. No leg pain or l eg swelling. OBJECTIVE: GENERAL: No acute distress. VITAL SIGNS: Temperature is 98, heart rate 62, respiratory rate is 20, blood pressure 119/73, pulse ox 94% on room air. HEENT: Moist mucous membranes. Small oral cavity. NECK: Supple, no JVD. LUNGS: Have 1/3 upper crackles in the left lung. HEART: S1, S2. ABDOMEN: Soft, nontender. No organomegaly. EXTREMITIES: There is no edema. NEUROLOGIC: Awake, alert, follows simple commands. MEDICATIONS: He is on aspirin 81 mg daily, Bactroban to affected area twice a day, Ditropan 5 mg violette ly, Lasix 40 mg daily, Lidex 0.05 cream to affected area twice a day, Lipitor 20 mg daily, Lopid 600 mg twice a day, metoprolol tartrate 25 mg at bedtime, mag oxide 400 mg at bedtime, calcium plus vitam in D 1 tab daily, Pamelor 10 mg daily, Plavix 75 mg daily, Protonix 40 mg daily, Tylenol p.r.n. basis , Xopenex inhaled 3 times a day, Zofran on a p.r.n. basis. LABORATORY DATA: Shows hemoglobin 9.4, hematocrit 29.9, WBC 4.0, platelet is 150. Sodium 137, potas sium 3.9, chloride 100, bicarbonate 31, BUN 14, creatinine 1.0. Glucose 111, calcium is 8.5, phospho marquis 3.3, magnesium is 2.1. Microbiology: Blood culture and urine culture: There is no growth so fa r. IMPRESSION AND PLAN: Recurrent fever, recently admitted with a fever of 102. Started on antibiotic. After all panculture was negative, antibiotics were discontinued. Later, his blood drawing is done and was kept for slow growing organisms. Other issues are cardiac diastolic dysfunction with pulmon eklsey hypertension, been on Lasix and responding well. There may be a component of sleep apnea syndrom e. Tolerated CPAP well overnight. Has a mantle cell lymphoma, chronic lung disease, history of lung cancer requiring wedge resection in the past. From pulmonary point of view, he is doing well. If c leared by infectious diseases, he could be discharge home. I asked the patient , Dr. Marques, to schedule his attended sleep study. Also, ____ to detect his diffusion. Fall precautions. Thank you, and will follow with you. Thanh Duffy MD cc: [id number] TT: 06/12/2016 20:16:57 Confirmation # [id number] Dictation # [id number] mn
--- NOTE | 2016-06-12 21:42 | PN ---
DATE: 06/12/2016 HISTORY OF PRESENT ILLNESS: The patient was seen earlier today in room 368, bed 2. The patient is do ing well. No fevers, no chills, no nausea. PHYSICAL EXAMINATION: VITAL SIGNS: Temperature 97.9, blood pressure is 119/70, respiratory rate of 20, heart rate of 62. HEENT: Unremarkable. NECK: Supple. LUNGS: Have decreased breath sounds. HEART: Normal S1, S2. ABDOMEN: Soft, nontender. LABORATORY DATA: Reveals a white count of 4.0, hemoglobin 9.4, platelets 150. Differential is noted . Chemistries are BUN of 14, creatinine of 1.0. Review of the orders are noted. ASSESSMENT AND PLAN: This is a 76-year-old male who was seen earlier this morning in 368, bed 2 with fevers at home. Currently afebrile, cultures are noted. Started on vancomycin and meropenem. discontinued because of negative cultures with a normal procalcitonin and CAT scan of chest shows no pneumonia, doing well. Case discussed with patient's , who is Dr. Marques. Marvin Callahan MD cc: [id number] TT: 06/12/2016 21:41:57 Confirmation # [id number] Dictation # [id number]
--- NOTE | 2016-06-13 15:06 | PQF SEPSIS ---
06/13/16 Dr. Myers, Please clarify etiology of fever, chills. (Systemic sepsis? Other?) Thank you. Clarification of your documentation is requested to better reflect the severity of illness and intensity of treatment of your patient. Indicators present [] Temp < 96.8 or > 100.4 [] WBC count > 12,000/mm3 or <000/mm3 or 10% immature neutrophils [] Heart Rate > 90 [] Respiratory Rate > 20 [] Fever or hypothermia [] Chills [] Positive blood cultures [] Hypotension [] Metabolic acidosis (Elevated lactate level, anion gap or reduced blood pH) [] Acute confusion /Altered Mental Status [] Shock [] Other: [] Location in the medical record that reflects the above clinical findings: [] Treatment Provided: [] PHYSICIAN'S RESPONSE Based on your medical judgment of the clinical indicators outlined above, are you treating this patient for a known or suspected: [] Sepsis / Septicemia Please specify organism if known [] [] SIRS (Systemic Inflammatory Response Syndrome) [] Severe Sepsis (Sepsis with Associated Organ Dysfunction) [] Fever of Unknown Origin [] Other, please indicate: [] [] If Unable to Determine, please check the box, sign and date. Present On Admission (POA) Indicator: [] Present at the time of admission [] Not present at the time of admission [] Clinically Undetermined In responding to this query, please exercise your independent professional judgment. The fact that a question is asked does not imply that any particular answer is desired or expected. Thank you for your clarification on this documentation. If you have any questions please call:[ ] * Thank you, [ ] vice president supply chain JUAN R
== END 2016-06-12 19:58 | disposition home or self-care (01) | DRG 872 ==
LOC: ED 02:38 → ERH 05:13 → 3RNO 06:22 → OBSVTOIN 06-12 09:11
PROVIDERS: ADMIT Family Medicine; ATTEND Family Medicine
DX: A41.9 Sepsis, unspecified organism (principal); C83.10 Mantle cell lymphoma, unspecified site; I27.2 Other secondary pulmonary hypertension; I11.0 Hypertensive heart disease with heart failure; I50.9 Heart failure, unspecified; G45.9 Transient cerebral ischemic attack, unspecified; E11.9 Type 2 diabetes mellitus without complications; E78.5 Hyperlipidemia, unspecified; H91.90 Unspecified hearing loss, unspecified ear; I08.3 Combined rheumatic disorders of mitral, aortic and tricuspid valves; I25.10 Atherosclerotic heart disease of native coronary artery without angina pectoris; J44.9 Chronic obstructive pulmonary disease, unspecified; J45.909 Unspecified asthma, uncomplicated; L29.9 Pruritus, unspecified; N40.0 Benign prostatic hyperplasia without lower urinary tract symptoms; R09.02 Hypoxemia; R29.6 Repeated falls; Z79.02 Long term (current) use of antithrombotics/antiplatelets; Z79.82 Long term (current) use of aspirin; Z79.899 Other long term (current) drug therapy; Z85.118 Personal history of other malignant neoplasm of bronchus and lung; Z86.19 Personal history of other infectious and parasitic diseases; Z86.73 Personal history of transient ischemic attack (TIA), and cerebral infarction without residual deficits; Z87.01 Personal history of pneumonia (recurrent); Z87.440 Personal history of urinary (tract) infections; Z91.19 Patient's noncompliance with other medical treatment and regimen; Z92.21 Personal history of antineoplastic chemotherapy; Z95.5 Presence of coronary angioplasty implant and graft

== ENCOUNTER 2016-06-13 11:59 | Emergency (ER) | payer MEDICARE, OTHER ==
[2016-06-13 12:00] VITALS: BMI 27.4
[2016-06-13] MEDS ORDERED: Sodium Chloride 0.9% 500 ML IV STA (12:16)
[2016-06-13 12:40] LABS: ADD MANUAL DIFF? NO
[2016-06-13 12:47] LABS: BASO # 0.06 K/mm3 (0.0-2.0); BASO % 1.5 % (0.0-3.0); EOS # 0.1 (0.0-0.7); GRAN # 1.99 (1.4-6.5); GRAN % 49.4 % (50.0-68.0); HEMATOCRIT 28.7 % (42.0-52.0); LYMPH # 1.5 (1.2-3.4); LYMPH % 38.1 % (22.0-35.0); MEAN CELL VOLUME 75.3 fL (80.0-105.0); MEAN CORPUSCULAR HEMOGLOBIN 23.9 pg (25.0-35.0); MEAN CORPUSCULAR HGB CONC 31.7 g/dl (31.0-37.0); MEAN PLATELET VOLUME 10.1 fl (7.0-11.0); MONO # 0.4 (0.1-0.6); PLATELET COUNT 157 10^3/uL (120.0-450.0); RED CELL DISTRIBUTION WIDTH 16.7 % (11.5-14.5)
[2016-06-13 12:56] LABS: ALKALINE PHOSPHATASE 100 U/L (38-133); ALT/SGPT 36 U/L (7-56); AMYLASE 37 U/L (35-125); AST/SGOT 30 U/L (15-59); BILIRUBIN,TOTAL 1.2 mg/dL (0.2-1.3); BLOOD UREA NITROGEN 20 mg/dL (7-21); CALCIUM 8.5 mg/dL (8.4-10.5); CARBON DIOXIDE 31 mmol/L (21-33); CHLORIDE 97 mmol/L (98-107); GFR AFRICAN-AMERICAN > 60; GLUCOSE,RANDOM 151 mg/dL (70-110); LIPASE 14 U/L (23-300); POTASSIUM 3.9 mmol/L (3.6-5.0); SODIUM 135 mmol/L (132-148); TOTAL PROTEIN 6.6 g/dL (5.8-8.3)
--- NOTE | 2016-06-13 13:09 | CT ---
PROCEDURE: CT HEAD WITHOUT CONTRAST. HISTORY: fall COMPARISON: 08/18/2014 TECHNIQUE: Axial computed tomography images were obtained through the head/brain without intravenous contrast. Radiation dose: Total exam DLP = 733 mGy-cm. This CT exam was performed using one or more of the following dose reduction techniques: Automated exposure control, adjustment of the mA and/or kV according to patient size, and/or use of iterative reconstruction technique. FINDINGS: HEMORRHAGE: No intracranial hemorrhage. BRAIN: No mass effect or edema. Chronic encephalomalacia in the left frontal lobe. No acute intracranial finding VENTRICLES: Unremarkable. No hydrocephalus. CALVARIUM: Unremarkable. PARANASAL SINUSES: Unremarkable as visualized. No significant inflammatory changes. MASTOID AIR CELLS: Unremarkable as visualized. No inflammatory changes. OTHER FINDINGS: None. IMPRESSION: No acute intracranial findings
[2016-06-13 13:15] LABS: TROPONIN I < 0.01 ng/mL
[2016-06-13] MEDS ORDERED: Iohexol 350 MG/100 ML VIAL ONE (13:19)
--- NOTE | 2016-06-13 13:34 | ED PDOC ---
Arrival/HPI - General Chief Complaint: GI Problem Time Seen by Provider: 06/13/16 12:05 Historian: Patient - History of Present Illness Narrative History of Present Illness (Text): 06/13/16 12:45 A 76 year old male presents to the emergency room with complaints of mid- abdominal pain and vomiting since yesterday. Patient reports that he woke up to go to the bathroom when he ran into the wall and fell. Patient states that he got up, went to the bathroom, and shortly after began to vomit and experience abdominal pain. Patient denies any chest pain, shortness of breath, headaches, dizziness, diarrhea, or any other complaints. Time/Duration: 24 hours Symptom Onset: Sudden Symptom Course: Unchanged Activities at Onset: Light Context: Walking, Home Past Medical History - Provider Review Nursing Documentation Reviewed: Yes - Past History Past History: Unable to Obtain - Infectious Disease Hx of Infectious Diseases: None - Tetanus Immunization Tetanus Immunization: Unknown - Cardiac Hx Cardiac Disorders: Yes Hx Hypertension: Yes - Pulmonary Hx Asthma: Yes Hx Pneumonia: No - Neurological HX Cerebrovascular Accident: No Hx Transient Ischemic Attacks (TIA): Yes - HEENT Hx HEENT Disorder: Yes (wears eyeglasses) Hx Deafness: Yes Other/Comment: left ear sx for multiple infections has hearing loss uses a hearing aid, uses a hearing aid in right ear also - Renal Hx Renal Disorder: No Hx Renal Failure: No - Endocrine/Metabolic Hx Endocrine Disorders: No Hx Diabetes Mellitus Type 1: No Hx Diabetes Mellitus Type 2: Yes Hx Hypothyroidism: No - Hematological/Oncological Hx Blood Disorders: No Hx Cancer: No - Integumentary Hx Dermatological Disorder: No - Musculoskeletal/Rheumatological Hx Falls: Yes - Gastrointestinal Hx Gastrointestinal Disorders: No - Genitourinary/Gynecological Hx Genitourinary Disorders: Yes (FREQUENCY,H/O UTI) Hx Reproductive Disorders: Yes (BPH) - Psychiatric Hx Psychophysiologic Disorder: No Hx Emotional Abuse: No Hx Physical Abuse: No Hx Substance Use: No - Past Surgical History Past Surgical History: Unable to Obtain - Surgical History Hx Orthopedic Surgery: Yes - Anesthesia Hx Anesthesia: Yes Hx Anesthesia Reactions: No Hx Malignant Hyperthermia: No - Suicidal Assessment Feels Threatened In Home Enviroment: No Family/Social History - Physician Review Nursing Documentation Reviewed: Yes Family/Social History: No Known Family HX Smoking Status: Never Smoked Hx Alcohol Use: No Hx Substance Use: No Hx Substance Use Treatment: No Allergies/Home Meds Allergies/Adverse Reactions: Allergies azithromycin Allergy (Severe, Verified 06/09/16 04:47) ANGIOEDEMA erythromycin base Allergy (Severe, Verified 06/09/16 04:47) ANGIOEDEMA Penicillins Allergy (Severe, Verified 06/09/16 04:47) ANAPHYLAXIS cephalexin monohydrate [From Keflex] Allergy (Intermediate, Verified 06/09/16 04 :47) RASH gabapentin Allergy (Intermediate, Verified 06/09/16 04:47) RASH pregabalin Allergy (Intermediate, Verified 06/09/16 04:47) RASH Sulfa (Sulfonamide Antibiotics) Allergy (Intermediate, Verified 06/09/16 04:47) RASH nitro paste Allergy (Intermediate, Uncoded 06/09/16 04:47) DIZZINESS/HYPOTENSION CAUSE HYPOTENSION Home Medications: Home Meds Medication Instructions Recorded Confirmed Aspirin [Aspirin EC] 81 mg PO DAILY 09/10/15 06/09/16 Oxybutynin Chloride 5 mg PO DAILY 09/10/15 06/09/16 Levalbuterol [Xopenex] 1.25 mg IH Q6 PRN 01/31/16 06/09/16 Acetaminophen [Tylenol (Renal)] 650 mg PO Q6 PRN 04/21/16 06/09/16 Benzocaine/Menthol [Chloraseptic 1 lozenge PO DAILY 04/21/16 06/09/16 Max Lozenge] Metoprolol Tartrate [Lopressor] 25 mg PO HS 04/21/16 06/09/16 Ondansetron [Zofran Inj] 4 mg IVP Q6H 04/21/16 06/09/16 Pantoprazole [Protonix EC Tab] 40 mg PO DAILY 04/21/16 06/09/16 Calcium Carbonate/Vitamin D3 600 mg PO DAILY 06/03/16 06/09/16 [Caltrate 600 + D Soft Chew Tab] Ibrutinib [Imbruvica] 560 mg PO HS 06/03/16 06/09/16 Magnesium Oxide [Magnesium] 400 mg PO HS 06/03/16 06/09/16 Nortriptyline HCl [Pamelor] 10 mg PO DAILY 06/03/16 06/09/16 Ranolazine [Ranexa] 500 mg PO BID 06/03/16 06/09/16 Silodosin [Rapaflo] 8 mg PO HS 06/03/16 06/09/16 Review of Systems - Physician Review All systems were reviewed & negative as marked: Yes - Review of Systems Respiratory: absent: SOB Cardiovascular: absent: Chest Pain Gastrointestinal: Abdominal Pain (Mid-abdomen), Vomiting. absent: Diarrhea Neurological: absent: Headache, Dizziness Physical Exam Vital Signs Reviewed: Yes Vital Signs Temp Pulse Resp BP Pulse Ox 06/13/16 14:00 68 18 147/68 99 06/13/16 12:00 97.4 F L 70 18 135/71 95 Temperature: Afebrile Blood Pressure: Normal Pulse: Regular Respiratory Rate: Normal Appearance: Positive for: Well-Appearing, Non-Toxic, Comfortable Pain Distress: None Mental Status: Positive for: Alert and Oriented X 3 - Systems Exam Head: Present: Atraumatic, Normocephalic Pupils: Present: PERRL Mouth: Present: Moist Mucous Membranes Neck: Present: Normal Range of Motion Respiratory/Chest: Present: Clear to Auscultation, Good Air Exchange. No: Respiratory Distress, Accessory Muscle Use Cardiovascular: Present: Regular Rate and Rhythm, Normal S1, S2. No: Murmurs Abdomen: Present: Tenderness (Mild periumbilical tenderness). No: Rebound, Guarding Upper Extremity: Present: Normal ROM. No: Tenderness, Swelling Lower Extremity: Present: Normal ROM. No: Tenderness, Swelling Neurological: Present: GCS=15, CN II-XII Intact, Speech Normal, Motor Func Grossly Intact, Normal Sensory Function Skin: Present: Warm, Dry Psychiatric: Present: Alert, Oriented x 3, Normal Insight, Normal Concentration Medical Decision Making ED Course and Treatment: Head CT impression: As read by Dr. Gray, no acute intracranial findings. EKG: Ordered, reviewed, and independently interpreted the EKG. Rate : 75 BPM Rhythm : NSR Interpretation : 1st degree AV block. Nonspecific T wave changes. 06/13/16 15:[address] Casiano who saw the pt in the ED. He rec no abx at this time and agrees w plan for dc home. - Lab Interpretations Lab Results: 06/13/16 12:30 06/13/16 12:30 Lab Results 06/13/16 12:30: WBC 4.0 L, RBC 3.81, Hgb 9.1 L, Hct 28.7 L, MCV 75.3 L, MCH 23.9 L, MCHC 31.7, RDW 16.7 H, Plt Count 157, MPV 10.1, Gran % 49.4 L, Lymph % ( Auto) 38.1 H, [place] % (Auto) 9.0 H, Eos % (Auto) 2.0, Baso % (Auto) 1.5, Gran # 1.99, Lymph # 1.5, [place] # 0.4, Eos # 0.1, Baso # 0.06, Sodium 135, Potassium 3.9 , Chloride 97 L, Carbon Dioxide 31, Anion Gap 11, BUN 20, Creatinine 1.3, Est GFR ( Amer) > 60, Est GFR (Non-Af Amer) 54, Random Glucose 151 H, Calcium 8.5, Total Bilirubin 1.2, AST 30, ALT 36, Alkaline Phosphatase 100, Troponin I < 0.01, Total Protein 6.6, Albumin 3.3, Globulin 3.3, Albumin/ Globulin Ratio 1.0 L, Amylase 37, Lipase 14 L I have reviewed the lab results: Yes - RAD Interpretation Radiology Orders: 06/13/16 12:10 HEAD W/O CONTRAST [CT] Stat 06/13/16 12:16 CHEST PORTABLE [RAD] Stat 06/13/16 13:16 ABD & PELVIS IV CONTRAST ONLY [CT] Stat - Medication Orders Current Medication Orders: Discontinued Medications Sodium Chloride (Sodium Chloride 0.9%) 500 mls @ 999 mls/hr IV .Q31M STA Stop: 06/13/16 12:46 Last Admin: 06/13/16 12:50 Dose: 999 MLS/HR eMAR Start Stop Document 06/13/16 12:50 JOL (Rec: 06/13/16 12:50 JOL [id number]) Intravenous Solution Start Date 06/13/16 Start Time 12:50 End Date 06/13/16 End time 13:20 Total Infusion Time 30 Iohexol (Omnipaque 350 100 Ml) Confirm Administered Dose 350 mg .ROUTE .STK-MED ONE Stop: 06/13/16 13:20 - Scribe Statement The provider has reviewed the documentation as recorded by the Scribe Jameson Sherwood All medical record entries made by the Scribe were at my direction and personally dictated by me. I have reviewed the chart and agree that the record accurately reflects my personal performance of the history, physical exam, medical decision making, and the department course for this patient. I have also personally directed, reviewed, and agree with the discharge instructions and disposition. Disposition/Present on Arrival - Present on Arrival Any Indicators Present on Arrival: No History of DVT/PE: No History of Uncontrolled Diabetes: No Urinary Catheter: No History of Decub. Ulcer: No History Surgical Site Infection Following: None - Disposition Have Diagnosis and Disposition been Completed?: Yes Diagnosis: Nausea and vomiting Disposition: HOME/ ROUTINE Disposition Time: 15:53 Patient Problems: Current Active Problems Problem Status Diagnosed Diabetes mellitus Acute Fever Acute Frequent falls Acute Lymphoma Acute TIA (transient ischemic attack) Acute Condition: IMPROVED Referrals: Alie Myers MD [Primary Care Provider] - Follow up with primary
--- NOTE | 2016-06-13 13:45 | RAD ---
HISTORY: fall COMPARISON: 06/11/2016 FINDINGS: LUNGS: No active pulmonary disease. PLEURA: No significant pleural effusion identified, no pneumothorax apparent. CARDIOVASCULAR: Normal. OSSEOUS STRUCTURES: No significant abnormalities. VISUALIZED UPPER ABDOMEN: Normal. OTHER FINDINGS: None. IMPRESSION: No active disease.
--- NOTE | 2016-06-13 14:05 | CT ---
PROCEDURE: CT Abdomen and Pelvis with contrast HISTORY: Abdominal pain COMPARISON: None. TECHNIQUE: CT scan of the abdomen pelvis was performed after intravenous administration of contrast. Oral contrast was not administered. Coronal and sagittal reformatted images were obtained. Contrast dose: 100 mL Omnipaque 350 Radiation dose: Total exam DLP = 381.90 mGy-cm. This CT exam was performed using one or more of the following dose reduction techniques: Automated exposure control, adjustment of the mA and/or kV according to patient size, and/or use of iterative reconstruction technique. FINDINGS: LOWER THORAX: There is trace right and small left pleural effusions and bibasilar subsegmental atelectasis. There is a suture line in the left lateral lung base. LIVER: The liver is normal in size and there is homogeneous enhancement. No intrahepatic biliary ductal dilatation. GALLBLADDER AND BILE DUCTS: There are no calcified gallstones, wall thickening or pericholecystic fluid. PANCREAS: There is diffuse atrophy of the pancreas. SPLEEN: The spleen is normal in size and there is homogeneous enhancement without focal lesion. ADRENALS: Both adrenal glands are normal in size without discrete nodule. KIDNEYS AND URETERS: Both kidneys are normal in size and there is homogeneous enhancement without focal mass or hydronephrosis. There are small low-attenuation lesions in both kidneys, too small to characterize by CT criteria but likely cortical cysts. There is a 14 mm exophytic simple cortical cyst in the left upper pole. VASCULATURE: There atherosclerotic aortoiliac calcifications. No aortic aneurysm. BOWEL: The small bowel loops are normal in caliber. There is large amount of stool in the ascending and transverse colon. There is left colonic diverticulosis. There is apparent mild mural thickening in the descending and sigmoid colon. APPENDIX: Normal appendix. PERITONEUM: No free fluid. No free air. LYMPH NODES: No enlarged lymph nodes. BLADDER: Normal in appearance. REPRODUCTIVE: Unremarkable. BONES: There is mild dextroscoliosis in the lumbar spine and multilevel degenerative changes. No destructive bony lesion. OTHER FINDINGS: None. IMPRESSION: 1. Left colonic diverticulosis. Apparent mild mural thickening in the descending and sigmoid colon is strictly nonspecific and could be related to underdistention however nonspecific infectious/inflammatory colitis cannot be excluded. Clinical follow-up is advised. 2. Constipation. No evidence of bowel obstruction. 3. Small left pleural effusion.
--- NOTE | 2016-06-13 15:49 | CARD ---
APPROVED REPORT EKG Measurement Heart [id number] 210P12 [id number] <Conclusion> Sinus rhythm with 1st degree AV block Nonspecific T wave abnormality Prolonged QT Abnormal ECG
[2016-06-13 16:28] VITALS: TEMP 97.8
[2016-06-13] MEDS ORDERED: Levalbuterol 0.63 MG/3 ML Inhal Soln UD IH STA (16:39)
[2016-06-13 18:42] VITALS: BP 132/68; PULSE 58; RESP 16; O2SAT 96
== END 2016-06-13 19:59 | disposition home or self-care (01) ==
LOC: ED 11:59
DX: R11.2 Nausea with vomiting, unspecified (principal); I10 Essential (primary) hypertension; E11.9 Type 2 diabetes mellitus without complications; Z86.73 Personal history of transient ischemic attack (TIA), and cerebral infarction without residual deficits
CPT/HCPCS: 70450; 71010; 74177; 80053; 82150; 83690; 84484; 85025; 93005; 99283; J2405; J7040; Q9967

== ENCOUNTER 2016-06-29 09:29 | Inpatient (IN) | payer MEDICARE, OTHER ==
--- NOTE | 2016-06-29 10:01 | ED PDOC ---
Arrival/HPI - General Chief Complaint: Chest Pain Time Seen by Provider: 06/29/16 09:55 Historian: Patient - History of Present Illness Narrative History of Present Illness (Text): 06/29/16 09:57 A 76 year old male, whose past medical history includes lymphoma on active chemotherapy, brought into the emergency department by complaining of a fever of 102 this morning. Patient reports chills, non-productive cough and dysuria. Patient reports he experienced chest pressure prior to arrival, which resolved on its own. Patient denies any nausea, vomiting, diarrhea, abdominal pain, shortness of breath or any other complaints. Oncologist: Dr. Myers Time/Duration: Prior to Arrival Symptom Course: Unchanged Quality: Other Context: Home Past Medical History - Provider Review Nursing Documentation Reviewed: Yes - Past History Past History: Unable to Obtain - Infectious Disease Hx of Infectious Diseases: None - Tetanus Immunization Tetanus Immunization: Unknown - Cardiac Hx Cardiac Disorders: Yes Hx Hypertension: Yes - Pulmonary Hx Asthma: Yes Hx Pneumonia: No - Neurological HX Cerebrovascular Accident: No - HEENT Hx HEENT Disorder: Yes (wears eyeglasses) Hx Deafness: Yes Other/Comment: left ear sx for multiple infections has hearing loss uses a hearing aid, uses a hearing aid in right ear also - Renal Hx Renal Failure: No - Endocrine/Metabolic Hx Diabetes Mellitus Type 2: Yes - Hematological/Oncological Hx Blood Disorders: No Hx Cancer: No - Integumentary Hx Dermatological Disorder: No - Musculoskeletal/Rheumatological Hx Falls: Yes - Gastrointestinal Hx Gastrointestinal Disorders: No - Genitourinary/Gynecological Hx Genitourinary Disorders: Yes (H/O URINARY FREQUENCY,DYSURIA,UTI) Hx Reproductive Disorders: Yes (PROSTAE ENLARGED,HAD SURGERY,BPH) - Psychiatric Hx Psychophysiologic Disorder: No Hx Emotional Abuse: No Hx Physical Abuse: No Hx Substance Use: No - Past Surgical History Past Surgical History: Unable to Obtain - Surgical History Hx Orthopedic Surgery: Yes - Anesthesia Hx Anesthesia: Yes Hx Anesthesia Reactions: No Hx Malignant Hyperthermia: No - Suicidal Assessment Feels Threatened In Home Enviroment: No Family/Social History - Physician Review Nursing Documentation Reviewed: Yes Family/Social History: No Known Family HX Smoking Status: Never Smoked Hx Alcohol Use: No Hx Substance Use: No Hx Substance Use Treatment: No Allergies/Home Meds Allergies/Adverse Reactions: Allergies azithromycin Allergy (Severe, Verified 06/29/16 09:41) ANGIOEDEMA erythromycin base Allergy (Severe, Verified 06/29/16 09:41) ANGIOEDEMA Penicillins Allergy (Severe, Verified 06/29/16 09:41) ANAPHYLAXIS cephalexin monohydrate [From Keflex] Allergy (Intermediate, Verified 06/29/16 09 :41) RASH gabapentin Allergy (Intermediate, Verified 06/29/16 09:41) RASH pregabalin Allergy (Intermediate, Verified 06/29/16 09:41) RASH Sulfa (Sulfonamide Antibiotics) Allergy (Intermediate, Verified 06/29/16 09:41) RASH nitro paste Allergy (Intermediate, Uncoded 06/29/16 09:41) DIZZINESS/HYPOTENSION CAUSE HYPOTENSION Home Medications: Home Meds Medication Instructions Recorded Confirmed Aspirin [Aspirin EC] 81 mg PO DAILY 09/10/15 06/29/16 Oxybutynin Chloride 5 mg PO DAILY 09/10/15 06/29/16 Levalbuterol [Xopenex] 1.25 mg IH TID 01/31/16 06/29/16 Acetaminophen [Tylenol (Renal)] 650 mg PO Q6 PRN 04/21/16 06/29/16 Metoprolol Tartrate [Lopressor] 25 mg PO HS 04/21/16 06/29/16 Pantoprazole [Protonix EC Tab] 40 mg PO DAILY 04/21/16 06/29/16 Calcium Carbonate/Vitamin D3 600 mg PO DAILY 06/03/16 06/29/16 [Caltrate 600 + D Soft Chew Tab] Magnesium Oxide [Magnesium] 400 mg PO HS 06/03/16 06/29/16 Nortriptyline HCl [Pamelor] 10 mg PO DAILY 06/03/16 06/29/16 Ranolazine [Ranexa] 500 mg PO BID 06/03/16 06/29/16 Silodosin [Rapaflo] 8 mg PO HS 06/03/16 06/29/16 Review of Systems - Physician Review All systems were reviewed & negative as marked: Yes - Review of Systems Constitutional: Fevers, Night Sweats Eyes: absent: Vision Changes ENT: absent: Hearing Changes Respiratory: Cough. absent: SOB, Sputum Cardiovascular: Chest Pain. absent: Palpitations, Edema, Calf Pain, GALVAN, Orthopnea, Syncope Gastrointestinal: absent: Abdominal Pain, Constipation, Diarrhea, Nausea, Vomiting Genitourinary Male: Dysuria Musculoskeletal: absent: Back Pain Skin: absent: Rash Neurological: absent: Headache, Dizziness, Focal Weakness, Gait Changes, Speech Changes, Facial Droop Endocrine: absent: Diaphoresis Hemo/Lymphatic: absent: Adenopathy Psychiatric: absent: Anxiety Physical Exam Vital Signs Reviewed: Yes Vital Signs Temp Pulse Pulse Resp BP Pulse Ox 06/29/16 11:02 75 18 141/79 98 06/29/16 10:25 85 06/29/16 09:48 98.3 F 06/29/16 09:42 85 16 130/68 98 Temperature: Afebrile Blood Pressure: Normal Pulse: Regular Respiratory Rate: Normal Appearance: Positive for: Well-Appearing, Non-Toxic, Comfortable Pain Distress: None Mental Status: Positive for: Alert and Oriented X 3 - Systems Exam Head: Present: Swelling (Rigth sided facial swelling, which was worked up in prior admission) Pupils: Present: PERRL Extroacular Muscles: Present: EOMI Conjunctiva: Present: Normal Mouth: Present: Moist Mucous Membranes Neck: Present: Normal Range of Motion Respiratory/Chest: Present: Clear to Auscultation, Good Air Exchange, Other ( Port on right side of chest, clean, no erythema). No: Respiratory Distress, Accessory Muscle Use Cardiovascular: Present: Regular Rate and Rhythm, Normal S1, S2. No: Murmurs Abdomen: Present: Normal Bowel Sounds. No: Tenderness, Distention, Peritoneal Signs Back: Present: Normal Inspection Upper Extremity: Present: Normal Inspection. No: Cyanosis, Edema Lower Extremity: Present: NORMAL PULSES, Normal ROM, Other (Left knee hematoma, prior imaging negative). No: Edema, CALF TENDERNESS, Deformity, Temperature Abnormalties, Neurovascularly Intact Neurological: Present: GCS=15, CN II-XII Intact, Speech Normal Skin: Present: Warm, Dry, Normal Color. No: Rashes Psychiatric: Present: Alert, Oriented x 3, Normal Insight, Normal Concentration Medical Decision Making ED Course and Treatment: 06/29/16 09:57 Impression: A 76 year old male with fever. Currently being treated for lymphoma. Patient noted chills, non-productive cough, dysuria and chest pressure. Differential Diagnosis included but are not limited to: Plan: -- Chest xray -- Labs -- Blood and Urine culture -- Urinalysis --ivf --clinda and cipro due to ?neutropenic fever and pen allergy -- Reassess and disposition Progress Notes: 06/29/16 10:50 EKG shows NSR at [address]/T changes, no ST-segment elevations. Interpreted by me. 06/29/16 11:[address] Myers who is requesting admission to [facility] for fever and active lymphoma for fever of unknown origin. Ua is negative. Cxray is negative. No meningeal signs. Dr. Myers requesting blood, urine and catheter culture before leaving ED. Nurse reports that he has already completed these and did first set of blood cultures from port and second from periphery. Dr. Callahan consult placed. Dr. Myers requesting dc of clinda and addition of vancomycin. - Lab Interpretations Lab Results: 06/29/16 10:13 06/29/16 10:13 Lab Results 06/29/16 10:30: Urine Color Light yellow, Urine Appearance Clear, Urine pH 7.0, Ur Specific Baldwin 1.010, Urine Protein Negative, Urine Glucose (UA) Negative, Urine Ketones Negative, Urine Blood Negative, Urine Nitrate Negative, Urine Bilirubin Negative, Urine Urobilinogen 0.2, Ur Leukocyte Esterase Negative 06/29/16 10:13: PT 11.9 H, INR 1.10 H, APTT 33.6 H 06/29/16 10:13: Sodium 133, Chloride 100, Potassium 3.6, Carbon Dioxide 27, Anion Gap 10, BUN 14, Creatinine 1.0, Est GFR ( Amer) > 60, Est GFR (Non- Af Amer) > 60, Random Glucose 123 H, Calcium 8.6, Phosphorus 3.7, Magnesium 1.8 , Total Bilirubin 1.2, AST 43, ALT 47, Alkaline Phosphatase 127, Total Creatine Kinase 27 L, Troponin I < 0.01, Total Protein 6.6, Albumin 3.4, Globulin 3.2, Albumin/Globulin Ratio 1.1, Lipase 14 L 06/29/16 10:13: pO2 74 H, VBG pH 7.38, VBG pCO2 45.0, VBG HCO3 26.6, VBG Total CO2 28.0, VBG O2 Sat (Calc) 97.2 H, VBG Base Excess 1.0, VBG Potassium 3.7, Sodium 134.0, Chloride 106.0, Glucose 132 H, Lactate 1.0, FiO2 21.0, Venous Blood Potassium 3.7 06/29/16 10:13: WBC 4.2 L, RBC 4.02, Hgb 10.3 L, Hct 31.6 L, MCV 78.6 L, MCH 25.6, MCHC 32.6, RDW 19.2 H, Plt Count 133, MPV 10.3, Gran % 50.9, Lymph % (Auto ) 32.2, [place] % (Auto) 13.3 H, Eos % (Auto) 2.4, Baso % (Auto) 1.2, Gran # 2.15, Lymph # 1.4, [place] # 0.6, Eos # 0.1, Baso # 0.05 I have reviewed the lab results: Yes - RAD Interpretation Radiology Orders: 06/29/16 11:09 CHEST PORTABLE [RAD] Stat - Medication Orders Current Medication Orders: Sodium Chloride (Sodium Chloride 0.9%) 1,000 mls @ 999 mls/hr IV .Q1H1M STA Stop: 06/29/16 11:45 Last Admin: 06/29/16 10:59 Dose: 999 mls/hr Vancomycin HCl (Vancomycin 1gm) 1 gm in 250 mls @ 167 mls/hr IVPB STAT STA PRN Reason: Protocol Stop: 06/29/16 13:03 Discontinued Medications Ciprofloxacin (Cipro 400mg/200ml Dsw) 400 mg in 200 mls @ 133.3 mls/hr IVPB STAT STA PRN Reason: Protocol Stop: 06/29/16 12:15 Last Admin: 06/29/16 11:00 Dose: 133.3 mls/hr - Scribe Statement The provider has reviewed the documentation as recorded by the Tl Mccoy Provider Scribe Attestation: All medical record entries made by the Scribe were at my direction and personally dictated by me. I have reviewed the chart and agree that the record accurately reflects my personal performance of the history, physical exam, medical decision making, and the department course for this patient. I have also personally directed, reviewed, and agree with the discharge instructions and disposition. Disposition/Present on Arrival - Present on Arrival Any Indicators Present on Arrival: No History of DVT/PE: No History of Uncontrolled Diabetes: Yes Urinary Catheter: No History of Decub. Ulcer: No History Surgical Site Infection Following: None - Disposition Have Diagnosis and Disposition been Completed?: Yes Diagnosis: Fever, Lymphoma Disposition: HOSPITALIZED Disposition Time: 09:47 Patient Plan: Admission Patient Problems: Current Active Problems Problem Status Onset Fever Acute Condition: FAIR
[2016-06-29 10:33] LABS: ADD MANUAL DIFF? NO
[2016-06-29 10:39] LABS: BASO # 0.05 K/mm3 (0.0-2.0); BASO % 1.2 % (0.0-3.0); EOS # 0.1 (0.0-0.7); EOS % 2.4 % (1.5-5.0); GRAN # 2.15 (1.4-6.5); GRAN % 50.9 % (50.0-68.0); HEMATOCRIT 31.6 % (42.0-52.0); LYMPH # 1.4 (1.2-3.4); LYMPH % 32.2 % (22.0-35.0); MEAN CELL VOLUME 78.6 fL (80.0-105.0); MEAN CORPUSCULAR HEMOGLOBIN 25.6 pg (25.0-35.0); MEAN CORPUSCULAR HGB CONC 32.6 g/dl (31.0-37.0); MEAN PLATELET VOLUME 10.3 fl (7.0-11.0); MONO # 0.6 (0.1-0.6); MONO % 13.3 % (1.0-6.0); PLATELET COUNT 133 10^3/uL (120.0-450.0); RED CELL DISTRIBUTION WIDTH 19.2 % (11.5-14.5); VENOUS BLOOD PH 7.38 (7.32-7.43); WHITE BLOOD COUNT 4.2 10^3/ul (4.5-11.0)
[2016-06-29] MEDS ORDERED: Sodium Chloride 0.9% 1,000 ML IV STA (10:45)
[2016-06-29] MEDS ORDERED: Ciprofloxacin 400mg/200ml D5W 400 MG/200 ML BAG IVPB STA ×2 (10:45→11:10)
[2016-06-29 10:48] LABS: ALB/GLOB RATIO 1.1 (1.1-1.8); ALKALINE PHOSPHATASE 127 U/L (38-133); ALT/SGPT 47 U/L (7-56); AST/SGOT 43 U/L (15-59); BILIRUBIN,TOTAL 1.2 mg/dL (0.2-1.3); BLOOD UREA NITROGEN 14 mg/dL (7-21); CALCIUM 8.6 mg/dL (8.4-10.5); CARBON DIOXIDE 27 mmol/L (21-33); CHLORIDE 100 mmol/L (98-107); GFR AFRICAN-AMERICAN > 60; GLUCOSE,RANDOM 123 mg/dL (70-110); LIPASE 14 U/L (23-300); MAGNESIUM 1.8 mg/dL (1.7-2.2); PHOSPHOROUS 3.7 mg/dL (2.5-4.5); POTASSIUM 3.6 mmol/L (3.6-5.0); SODIUM 133 mmol/L (132-148); TOTAL PROTEIN 6.6 g/dL (5.8-8.3)
[2016-06-29 10:56] LABS: INR 1.1 (0.93-1.08); PARTIAL THROMBOPLASTIN TIME 33.6 Seconds (23.7-30.8)
[2016-06-29 11:00] LABS: URINE BILIRUBIN NEGATIVE (NEGATIVE); URINE BLOOD NEGATIVE (NEGATIVE); URINE GLUCOSE (UA) NEGATIVE (NEGATIVE); URINE KETONE NEGATIVE (NEGATIVE); URINE LEUKOCYTE ESTERASE NEGATIVE Leu/uL (NEGATIVE); URINE PROTEIN NEGATIVE mg/dL (<30 mg/dL); URINE UROBILINOGEN 0.2 E.U./dL (<1 E.U./dL)
[2016-06-29 11:02] LABS: TROPONIN I < 0.01 ng/mL
[2016-06-29 11:02] LABS: URINE APPEARANCE CLEAR (CLEAR); URINE COLOR LIGHT YELLOW (YELLOW)
[2016-06-29] MEDS ORDERED: Vancomycin 1gm in NS 250ml 1 GM/250 ML BAG IVPB STA (11:34)
--- NOTE | 2016-06-29 11:38 | RAD ---
HISTORY: chest pain COMPARISON: 06/13/2016 FINDINGS: LUNGS: No active pulmonary disease. PLEURA: No significant pleural effusion identified, no pneumothorax apparent. CARDIOVASCULAR: Normal. OSSEOUS STRUCTURES: No significant abnormalities. VISUALIZED UPPER ABDOMEN: Normal. OTHER FINDINGS: Right villa cath IMPRESSION: No active disease.
--- NOTE | 2016-06-29 11:46 | CARD ---
APPROVED REPORT EKG Measurement Heart [id number] 178P50 [id number] <Conclusion> Normal sinus rhythm Nonspecific T wave abnormality
[2016-06-29 15:00] VITALS: BMI 27.4
[2016-06-29] MEDS ORDERED: ACETAMINOPHEN 325 MG PO PRN (16:19)
[2016-06-29] MEDS: Ranolazine [Ranexa] 500 MG PO SCH (17:27)
[2016-06-29] MEDS ORDERED: Levalbuterol 0.63 MG/3 ML Inhal Soln UD IH SCH (18:00)
[2016-06-29] MEDS: Levalbuterol 1.25 MG/3 ML Inhal Soln UD IH SCH (19:24)
[2016-06-29] MEDS: Vancomycin 750mg 750 MG/250 ML BAG IVPB SCH (20:43)
[2016-06-29] MEDS: Magnesium Oxide 400 mg Tab UD PO SCH (21:26)
[2016-06-29] MEDS ORDERED: Non Formulary Medication (Magnesium Oxide [Magnesium] 400 MG) PO SCH (22:00)
[2016-06-29] MEDS: Meropenem 1g/NS 100mL IVPB 1 GM/100 ML PIGGYBACK IVPB SCH (22:15)
--- NOTE | 2016-06-30 03:39 | CON ---
DATE: 06/29/2016 The patient seen earlier today in the Emergency Room. CHIEF COMPLAINT: Fever of 102 x 1 day duration. HISTORY OF PRESENT ILLNESS: This is a 76-year-old male with mantle cell lymphoma, history of chemoth erapy, coronary artery disease, BPH, diabetes, history of Shagufta parapsilosis fungemia, the patient has a Port-A-Cath, who has MULTIPLE ALLERGIES INCLUDING AZITHROMYCIN, ERYTHROMYCIN, PENICILLIN, CEPHA LEXIN, GABAPENTIN, PREGABALIN and was admitted through the Emergency Room because of temperature of 1 02 at home. An infectious consultation requested. REVIEW OF SYSTEMS: He has also had minimal shortness of breath and cough. 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 There has been no diarrhea specifically and the cough has been nonproductive. There is . There is no nausea or vomiting, no abdomina l pain reported. PAST MEDICAL HISTORY: Significant for mantle cell lymphoma, history of chemotherapy, coronary artery disease, BPH, diabetes mellitus, Shagufta parapsilosis. PAST SURGICAL HISTORY: Significant for a Port-A-Cath. ALLERGIES: THE PATIENT IS ALLERGIC TO PENICILLIN, AZITHROMYCIN, ERYTHROMYCIN, CEPHALEXIN, GABAPENTIN , PREGABALIN. PHYSICAL EXAMINATION: GENERAL: The patient is in bed, appearing chronically ill. VITAL SIGNS: Temperature in the Emergency Room was 97.6 and in-house temperature was 102. Heart rat e of 75, it was up to 85. Respiratory rate of 18, was up to 20; with a blood pressure of 156/80, oxy gen saturation of 98% on room air. HEENT: Unremarkable. NECK: Supple. LUNGS: Have decreased breath sounds. HEART: Normal S1, S2. ABDOMEN: Soft, nontender. No rebound, no guarding, no masses. LABORATORY EXAMINATION: Reveals a white count of 4.2 and hemoglobin is 10 and platelets of 133. BUN of 14, creatinine of 1.0, random glucose is 123. Urinalysis reveals an unremarkable urinalysis. Microbiology from previous admissions with all negative blood cultures. The patient's chest x-ray is reported to be no active disease. The Emergency Room chart is reviewed. ASSESSMENT AND PLAN: This is a 76-year-old male with mantle cell lymphoma, history of chemotherapy, coronary artery disease, benign prostatic hypertrophy, diabetes, history of Shagufta parapsilosis and was admitted now with fever of 102. Must rule out bacteremia secondary to Port-A-Cath versus [facility] are-associated pneumonia. We will treat the patient with vancomycin and meropenem. Pending blood cu ltures, procalcitonin, urine culture results and sputum culture, we will make further recommendations . Case discussed with the patient's . We will follow closely with you. Marvin Callahan MD cc: [phone] TT: 06/30/2016 03:37:44 Confirmation # [id number] Dictation # [id number] dn
[2016-06-30] MEDS: Meropenem 1g/NS 100mL IVPB 1 GM/100 ML PIGGYBACK IVPB SCH ×3 (05:47→21:11)
[2016-06-30] MEDS: Vancomycin 750mg 750 MG/250 ML BAG IVPB SCH ×2 (06:49→21:11)
[2016-06-30] MEDS: Levalbuterol 1.25 MG/3 ML Inhal Soln UD IH SCH ×4 (07:33→19:30)
[2016-06-30] MEDS: Pantoprazole 40 mg EC Tab PO SCH (10:01)
[2016-06-30] MEDS: Ranolazine [Ranexa] 500 MG PO SCH ×2 (10:02→17:25)
--- NOTE | 2016-06-30 12:03 | HP ---
This is the patient's admission H and P. For Dr. Myers CHIEF COMPLAINT: Fevers at home. 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 Since he has been admitted, no fevers have been noted objectively with the patient describi ng chills on his visit, with the patient otherwise in no acute distress, occasional cough. ALLERGIES: AZITHROMYCIN, ERYTHROMYCIN, PENICILLIN, KEFLEX, GABAPENTIN, SULFA, NITRO PAST AND PREGABA MALCOM, I BELIEVE IS LYRICA. MEDICATIONS: At this point include Lopressor, Rapaflo, atorvastatin, Plavix, Pamelor, Ranexa, nortri ptyline, oxybutynin, mag oxide, Protonix, Zofran, Xopenex. PAST MEDICAL HISTORY: Significant for mantle cell lymphoma, lung cancer, hyperlipidemia, ASCVD with stenting and recent port placement. Also, status post fall recently with ecchymotic changes, contusi on of his face. FAMILY HISTORY AND SOCIAL HISTORY: He is a nonsmoker, non-ethanolic, otherwise noncontributory. REVIEW OF SYSTEMS: Essentially negative to questioning except as above. OBJECTIVE AND PHYSICAL EXAMINATION: VITAL SIGNS: Temperature 97.7, pulse 77, respirations 20, blood pressure 143/88, pulse ox 97%. HEENT: Ecchymotic changes of his periorbital area on the left are resolving. Tongue is moist and mi dline. NECK: Supple. HEART: Regular rate, occasional ectopic beat. LUNGS: Clear. ABDOMEN: Soft, obese, nontender. EXTREMITIES: No edema. SKIN: Warm, dry and clear. NEUROLOGIC: Awake, alert, and oriented x 3. The patient's labs were done. White blood cell count of 4.2, hemoglobin 10.3, hematocrit 31.6, plate let count of 133,000 with a chem metabolic panel within normal limits except for a nonfasting glucose of 123. The patient's INR 1.1. The patient had a chest x-ray. It was read as no active disease. He had an EKG. It was read as nor mal sinus rhythm, nonspecific T-wave abnormality. ASSESSMENT: Fever of unknown origin, mantle cell lymphoma, arteriosclerotic cardiovascular disease, benign prostatic hypertrophy, diabetes mellitus, recent Port-A-Cath placement, status post recent fal l. PLAN: To continue present medical regimen. Consult Dr. Callahan, infectious disease. We will mon itor clinically and with labs. Prognosis for this patient is guarded. Ted Santoyo MD cc: [phone] TT: 06/30/2016 12:02:31 en
--- NOTE | 2016-06-30 14:33 | PN ---
DATE: 06/30/2016 This is the patient's hospital visit on the medical floor. For Dr. Myers. SUBJECTIVE: The patient is a 76-year-old male, seen sitting up in bed, known to suffer from mantle c ell lymphoma with recent port placement, now admitted via the Emergency Room for elevated temperature s up to 102 with the patient's chills described yesterday no longer a problem. He now reports some l eg discomfort on the left lower extremity, for which he had ecchymotic changes after a fall recently. One is referred to previous records. Otherwise, the patient is in no acute distress this visit. N o further chills. OBJECTIVE AND PHYSICAL EXAMINATION: VITAL SIGNS: Temperature 98.8, pulse 83, respirations 20, blood pressure 149/80, pulse ox 94%. HEENT: Unremarkable. NECK: Supple. HEART: Regular rate. LUNGS: Clear. ABDOMEN: Soft, nontender. EXTREMITIES: No edema with minimal ecchymotic changes on his left thigh. SKIN: Otherwise, warm, dry and clear. NEUROLOGIC: Awake, alert, and oriented x 3. He has hearing aids bilaterally. The patient's labs were done yesterday and will be repeated tomorrow. He had a procalcitonin level d one of 0.07 with a negative urinalysis. His urine culture did grow out gram-negative rods with blood cultures negative. Gram-negative rods are less than 10,000 colonies. ASSESSMENT: Fever of unknown origin, history of mantle cell lymphoma, arteriosclerotic cardiovascula r heart disease, benign prostatic hypertrophy, diabetes mellitus, recent port placement, history of r ecent fall, deconditioning. PLAN: To continue present medical regimen. We will monitor clinically and with labs. We will also ask for tramadol to be given every 8 hours for his moderate pain with the patient to be evaluated for physical therapy, out of bed to a chair with prognosis of this patient guarded. Ted Santoyo MD cc: [phone] TT: 06/30/2016 14:33:21 Confirmation # [id number] Dictation # [id number] en
--- NOTE | 2016-06-30 14:46 | PN ---
DATE: 06/30/2016 The patient is in bed, no acute distress, nontoxic. PHYSICAL EXAMINATION: VITAL SIGNS: Temperature is 98, blood pressure is 140/80, respiratory rate of 20, heart rate of 83. HEENT: Unremarkable. NECK: Supple. LUNGS: Have decreased breath sounds. HEART: Normal S1, S2. ABDOMEN: Soft, nontender. LABORATORY EXAMINATION: Reveals a white count of 4.2, hemoglobin of 10, platelets of 133. Chemistri es reveals the BUN of 14, creatinine of 1.0. Procalcitonin 0.07. Urinalysis is noted. Microbiology reveals a gram-negative chiquita in the urine. The gram-negative chiquita in the urine is less than 10,000 co lonies. The urinalysis is unremarkable. The blood cultures are no growth at 24 hours. Review of the medications reveals the patient to be on IV vancomycin and meropenem. 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 The u rinalysis is unremarkable and will continue the vancomycin and meropenem at this point. Follow close ly with you. Marvin Callahan MD cc: [phone] TT: 06/30/2016 14:46:11 Confirmation # [id number] Dictation # [id number] en
[2016-06-30 18:16] LABS: ADD MANUAL DIFF? NO
[2016-06-30 18:21] LABS: BASO # 0.05 K/mm3 (0.0-2.0); BASO % 1.1 % (0.0-3.0); EOS # 0.3 (0.0-0.7); EOS % 6.1 % (1.5-5.0); GRAN # 2.25 (1.4-6.5); GRAN % 50.8 % (50.0-68.0); HEMATOCRIT 34.1 % (42.0-52.0); LYMPH # 1.2 (1.2-3.4); LYMPH % 26.4 % (22.0-35.0); MEAN CELL VOLUME 79.5 fL (80.0-105.0); MEAN CORPUSCULAR HEMOGLOBIN 25.6 pg (25.0-35.0); MEAN CORPUSCULAR HGB CONC 32.3 g/dl (31.0-37.0); MEAN PLATELET VOLUME 10.5 fl (7.0-11.0); MONO # 0.7 (0.1-0.6); MONO % 15.6 % (1.0-6.0); PLATELET COUNT 167 10^3/uL (120.0-450.0); RED CELL DISTRIBUTION WIDTH 19.5 % (11.5-14.5); WHITE BLOOD COUNT 4.4 10^3/ul (4.5-11.0)
[2016-06-30 18:34] LABS: ALB/GLOB RATIO 1.1 (1.1-1.8); ALKALINE PHOSPHATASE 120 U/L (38-133); ALT/SGPT 45 U/L (7-56); AST/SGOT 45 U/L (15-59); BILIRUBIN,TOTAL 1.2 mg/dL (0.2-1.3); BLOOD UREA NITROGEN 13 mg/dL (7-21); CALCIUM 8.8 mg/dL (8.4-10.5); CARBON DIOXIDE 28 mmol/L (21-33); CHLORIDE 97 mmol/L (98-107); GFR AFRICAN-AMERICAN > 60; GLUCOSE,RANDOM 117 mg/dL (70-110); POTASSIUM 4.3 mmol/L (3.6-5.0); SODIUM 134 mmol/L (132-148); TOTAL PROTEIN 6.8 g/dL (5.8-8.3)
[2016-06-30] MEDS: Magnesium Oxide 400 mg Tab UD PO SCH (21:11)
[2016-07-01] MEDS: Meropenem 1g/NS 100mL IVPB 1 GM/100 ML PIGGYBACK IVPB SCH ×3 (06:00→21:33)
[2016-07-01 07:14] LABS: ADD MANUAL DIFF? NO
[2016-07-01 07:24] LABS: BASO # 0.06 K/mm3 (0.0-2.0); BASO % 1.4 % (0.0-3.0); EOS # 0.3 (0.0-0.7); EOS % 6.4 % (1.5-5.0); GRAN # 2.19 (1.4-6.5); GRAN % 50.1 % (50.0-68.0); HEMATOCRIT 33.2 % (42.0-52.0); LYMPH # 1.2 (1.2-3.4); LYMPH % 26.5 % (22.0-35.0); MEAN CELL VOLUME 78.3 fL (80.0-105.0); MEAN CORPUSCULAR HEMOGLOBIN 25.5 pg (25.0-35.0); MEAN CORPUSCULAR HGB CONC 32.5 g/dl (31.0-37.0); MEAN PLATELET VOLUME 10.4 fl (7.0-11.0); MONO # 0.7 (0.1-0.6); MONO % 15.6 % (1.0-6.0); PLATELET COUNT 154 10^3/uL (120.0-450.0); RED CELL DISTRIBUTION WIDTH 19.4 % (11.5-14.5); WHITE BLOOD COUNT 4.4 10^3/ul (4.5-11.0)
[2016-07-01 07:33] LABS: ALKALINE PHOSPHATASE 114 U/L (38-133); ALT/SGPT 43 U/L (7-56); AST/SGOT 37 U/L (15-59); BLOOD UREA NITROGEN 12 mg/dL (7-21); CALCIUM 8.6 mg/dL (8.4-10.5); CARBON DIOXIDE 28 mmol/L (21-33); CHLORIDE 101 mmol/L (98-107); GFR AFRICAN-AMERICAN > 60; GLUCOSE,RANDOM 129 mg/dL (70-110); POTASSIUM 3.8 mmol/L (3.6-5.0); SODIUM 136 mmol/L (132-148); TOTAL PROTEIN 6.3 g/dL (5.8-8.3)
[2016-07-01] MEDS: Vancomycin 750mg 750 MG/250 ML BAG IVPB SCH (08:40)
[2016-07-01] MEDS: Levalbuterol 1.25 MG/3 ML Inhal Soln UD IH SCH ×3 (09:00→20:00)
[2016-07-01] MEDS: Pantoprazole 40 mg EC Tab PO SCH (10:15)
[2016-07-01] MEDS: Ranolazine [Ranexa] 500 MG PO SCH ×2 (10:16→17:19)
--- NOTE | 2016-07-01 14:49 | PN ---
DATE: 07/01/[address] Myers. SUBJECTIVE: The patient is a 76-year-old male seen sitting up in bed, known to suffer from mantle ce ll lymphoma with chills, high temperature, now on IV antibiotics with good effect as per Dr. Mane oden. He is in no acute distress this visit. OBJECTIVE: VITAL SIGNS: Temperature 98.6, pulse 82, respirations 20, blood pressure 121/72, pulse ox 96%. HEENT: Unremarkable. NECK: Supple. HEART: Regular rate. LUNGS: Minimal decreased breath sounds. ABDOMEN: Soft, nontender. EXTREMITIES: No edema. SKIN: Warm, dry except for ecchymotic changes of the left calf and his face, status post fall. NEUROLOGIC: Awake, alert and oriented. LABORATORY DATA: The patient's labs were done. White blood cell count of 4.4, hemoglobin 10.8, haresh tocrit 33.2, platelet count 154,000 with a chem panel completely within normal range. Procalcitonin 0.07. His blood cultures were negative at 48 hours with urine culture showing less than 10,000 gram- negative rods. ASSESSMENT: Fever of unknown origin rule out infectious disease, questionable recent port placement, mantle cell lymphoma in remission, atherosclerotic cardiovascular disease, benign prostatic hypertro phy, diabetes, recent fall. PLAN: To continue present medical regimen as per Dr. Callahan with IV antibiotics. We will monito r clinically and with labs. Ted Santoyo MD cc: [phone] TT: 07/01/2016 14:47:47 Confirmation # [id number] Dictation # [id number] [place]
--- NOTE | 2016-07-01 20:25 | PN ---
DATE: 07/01/2016 SUBJECTIVE: The patient was seen earlier this morning in room 378, bed 2. He had an uneventful nigh t. He did say he had chills last night and required more blankets. There have not been any document ed fevers, although he was hypothermic. PHYSICAL EXAMINATION: VITAL SIGNS: Temperature of 96 earlier today with a blood pressure of 140/70, respiratory rate of 18 , heart rate of 82. HEENT: Unremarkable. NECK: Supple. LUNGS: Have decreased breath sounds. HEART: Normal S1, S2. ABDOMEN: Soft. LABORATORY DATA: Reveals a white count of 4.4, hemoglobin of 10, platelets of 154. Coagulation is n oted. Chemistries are noted. The patient's procalcitonin is 0.07 with a BUN of 12, creatinine of 0. 9. The urinalysis is noted to be negative. Microbiology does reveal a gram-negative chiquita in the urin e, but the blood cultures are no growth. The gram-negative chiquita is less than 10,000 colonies. Review of the orders reveals the patient to be on meropenem and vancomycin. ASSESSMENT AND PLAN: This is a 76-year-old male with mantle cell lymphoma, history of chemotherapy, coronary artery disease, benign prostatic hypertrophy, diabetes with a history of Shagufta parapsilosi s fungemia, who has a Port-A-Cath, who has had a temperature of 102, has recurrent fevers, recurrent hospitalization and negative blood cultures. He was having dysuria and frequency with a low count gr am-negative chiquita and sepsis, most likely urine as the source. Will discontinue the vancomycin. I am hesitant to recommend Port-A-Cath removal at this point since the blood cultures have all been negati ve. Recommend a urology evaluation. Will discontinue the vancomycin and continue meropenem for now since the patient has ALLERGIES TO AZITHROMYCIN, ERYTHROMYCIN, PENICILLIN, CEPHALEXIN, SULFA with esposito ited options for p.o. Will also order a PSA and follow closely with you. Concerning that the patien t did have chills, and maybe prostate is the origin with a low count organism. Marvin Callahan MD cc: 350 TT: 07/01/2016 20:24:00 Confirmation # [id number] Dictation # [id number] dn
[2016-07-01] MEDS: Magnesium Oxide 400 mg Tab UD PO SCH (21:33)
[2016-07-02] MEDS: Meropenem 1g/NS 100mL IVPB 1 GM/100 ML PIGGYBACK IVPB SCH ×3 (05:28→22:04)
[2016-07-02] MEDS: Levalbuterol 1.25 MG/3 ML Inhal Soln UD IH SCH ×3 (08:34→19:15)
[2016-07-02] MEDS: Pantoprazole 40 mg EC Tab PO SCH (09:50)
[2016-07-02] MEDS: Ranolazine [Ranexa] 500 MG PO SCH ×2 (09:50→17:04)
--- NOTE | 2016-07-02 15:58 | PN ---
DATE: 07/02/2016 This is the patient's hospital visit on the medical floor. For Dr. Myers. 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 Callahan, in no acute distress. He is also status post falls at home with ecchymotic changes to his face and legs, now mod estly improved. After conversation with the patient's earlier today, who is a physician, she sp nayeli with Dr. Callahan who believes there might be a need for an evaluation by Dr. He, Urology for possible microabscesses in the prostate causing his febrile episodes with recurrent hospitalizati ons. One is referred to previous records. With this, we will ask for a consult with Dr. He and continue his present medical regimen as per Dr. Callahan. He is otherwise in no acute distress. OBJECTIVE: PHYSICAL EXAMINATION: VITAL SIGNS: Temperature 98.3, pulse 68, respirations 17, blood pressure 120/68 and pulse ox 97%. HEENT: Unremarkable except for healing ecchymotic changes on his left scalp. NECK: Supple. HEART: Regular rate. LUNGS: Decreased breath sounds. ABDOMEN: Soft, nontender. EXTREMITIES: No edema with ecchymotic changes to the left thigh. NEUROLOGIC: Awake and alert. SKIN: Otherwise, warm, dry and clear. LABORATORY DATA: The patient's labs were done yesterday and will be repeated tomorrow. A PSA was do ne today, it was 0.3. ASSESSMENT: For this patient of fever of unknown origin, questionable microabscesses of the prostate , history of recent port placement, mantle cell lymphoma in remission, arteriosclerotic cardiovascula r disease, benign prostatic hypertrophy, diabetes mellitus, recent falls, ecchymotic changes and deco nditioning. PLAN: The patient is to continue present medical regimen. We will ask for a consult with Dr. Marilee allred, urology. Will continue IV antibiotics as per Dr. Callahan with his present medical regimen and will check his labs in the a.m. and monitor clinically. Ted Santoyo MD cc: [id number] TT: 07/02/2016 15:57:52 Confirmation # [id number] Dictation # [id number] dn
--- NOTE | 2016-07-02 17:29 | PN ---
DATE: 07/02/2016 The patient was seen earlier this morning in room 378. He states that he is doing much better today. He did not have any fevers; however, he does experience chills. He has symptoms and frequency. PHYSICAL EXAMINATION: VITAL SIGNS: Temperature is 98, blood pressure is 120/60, respiratory rate of 16. HEENT: Unremarkable. NECK: Supple. LUNGS: Have decreased breath sounds. HEART: Normal S1, S2. ABDOMEN: Soft, nontender. LABORATORY DATA: Reveals a white count of 4.4, hemoglobin of 10. BUN of 12 and creatinine of 0.9. Procalcitonin is 0.07. Urinalysis is negative now. Urine culture has a gram-negative chiquita. The bloo d cultures are negative, no growth. The patient's PSA is 0.3. Review of the orders reveals the patient to be on meropenem. Dr. Ted Santoyo's note is reviewed . ASSESSMENT AND PLAN: This is a 76-year-old male with mantle cell lymphoma, history of chemotherapy, coronary artery disease, benign prostatic hypertrophy, diabetes, history of Shagufta parapsilosis mike emia, who has a Port-A-Cath, who had a temperature of 102 at home, recurrent fevers, and recurrent ho spitalization for the fevers with all blood culture negative. I am hesitant to recommend removal of the Port-A-Cath in this patient with negative blood cultures; however, if no obvious source and the f ever returns and continues to be a problem, may have to do that. At this point, the patient was admi tted with a fever of 102 and a gram-negative chiquita in the urine with a normal PSA. Awaiting for Dr. Joseph street of urology's input. This patient has multiple allergies to AZITHROMYCIN, ERYTHROMYCIN, PENICIL MALCOM, CEPHALEXIN, and SULFA with a normal PSA level. Will continue the meropenem and check on the fin al culture results. At this point negative blood cultures and a gram-negative chiquita in the urine. The case was discussed with patient's , who is a doctor, today in detail. Marvin Callahan MD cc: [id number] TT: 07/02/2016 17:28:16 Confirmation # [id number] Dictation # [id number] dn
[2016-07-02] MEDS: Magnesium Oxide 400 mg Tab UD PO SCH (22:04)
[2016-07-03] MEDS: Meropenem 1g/NS 100mL IVPB 1 GM/100 ML PIGGYBACK IVPB SCH ×3 (05:59→21:22)
[2016-07-03 06:26] LABS: ADD MANUAL DIFF? NO; BASO # 0.03 K/mm3 (0.0-2.0); BASO % 0.6 % (0.0-3.0); EOS # 0.3 (0.0-0.7); EOS % 5.9 % (1.5-5.0); GRAN # 2.75 (1.4-6.5); GRAN % 55.8 % (50.0-68.0); HEMATOCRIT 32.5 % (42.0-52.0); LYMPH # 1.1 (1.2-3.4); LYMPH % 22.9 % (22.0-35.0); MEAN CELL VOLUME 78.7 fL (80.0-105.0); MEAN CORPUSCULAR HEMOGLOBIN 25.2 pg (25.0-35.0); MEAN PLATELET VOLUME 9.6 fl (7.0-11.0); MONO # 0.7 (0.1-0.6); MONO % 14.8 % (1.0-6.0); PLATELET COUNT 184 10^3/uL (120.0-450.0); RED CELL DISTRIBUTION WIDTH 19.1 % (11.5-14.5); WHITE BLOOD COUNT 4.9 10^3/ul (4.5-11.0)
[2016-07-03 06:54] LABS: ALB/GLOB RATIO 0.9 (1.1-1.8); ALKALINE PHOSPHATASE 116 U/L (38-133); ALT/SGPT 36 U/L (7-56); AST/SGOT 28 U/L (15-59); BILIRUBIN,TOTAL 0.9 mg/dL (0.2-1.3); BLOOD UREA NITROGEN 14 mg/dL (7-21); CALCIUM 8.5 mg/dL (8.4-10.5); CARBON DIOXIDE 28 mmol/L (21-33); CHLORIDE 100 mmol/L (98-107); GFR AFRICAN-AMERICAN > 60; GLUCOSE,RANDOM 130 mg/dL (70-110); POTASSIUM 3.9 mmol/L (3.6-5.0); SODIUM 134 mmol/L (132-148)
[2016-07-03] MEDS: Levalbuterol 1.25 MG/3 ML Inhal Soln UD IH SCH ×3 (07:54→20:21)
[2016-07-03] MEDS: Pantoprazole 40 mg EC Tab PO SCH (09:40)
[2016-07-03] MEDS: Ranolazine [Ranexa] 500 MG PO SCH ×2 (09:40→17:25)
[2016-07-03] MEDS ORDERED: Iohexol 350 MG/100 ML VIAL ONE (17:10)
--- NOTE | 2016-07-03 18:33 | CT ---
PROCEDURE: CT Abdomen and Pelvis with contrast HISTORY: r/o microabscess of prostate COMPARISON: 06/13/2016 TECHNIQUE: Contrast dose: 100 cc of Omnipaque 300 Radiation dose: Total exam DLP = 829 mGy-cm. This CT exam was performed using one or more of the following dose reduction techniques: Automated exposure control, adjustment of the mA and/or kV according to patient size, and/or use of iterative reconstruction technique. FINDINGS: LOWER THORAX: Minimal discoid atelectasis at the right base, unchanged. LIVER: Unremarkable. No gross lesion or ductal dilatation. GALLBLADDER AND BILE DUCTS: Unremarkable. PANCREAS: Unremarkable. No gross lesion or ductal dilatation. SPLEEN: Unremarkable. ADRENALS: Unremarkable. No mass. KIDNEYS AND URETERS: 13 millimeter left upper pole renal cyst.. No hydronephrosis. No solid mass. VASCULATURE: Unremarkable. No aortic aneurysm. BOWEL: Colonic diverticulosis.. No obstruction. No gross mural thickening. APPENDIX: Normal appendix. PERITONEUM: Unremarkable. No free fluid. No free air. LYMPH NODES: Mild retroperitoneal fat infiltration extending to the left pelvic sidewall.. No enlarged lymph nodes. BLADDER: Unremarkable. REPRODUCTIVE: Minimal heterogeneity of enhancement of the prostate gland. There is a questionable lucency along the left lateral mid gland measuring 4 millimeters.. BONES: No acute fracture. OTHER FINDINGS: Bilateral inguinal hernias with tethering of the left anterior lateral bladder into the left hernia sac.. IMPRESSION: Question 4 millimeter hyperlucency in the left mid gland of the prostate gland which could represent an abscess. This is new since prior examination. Confirmation with MRI examination of the prostate gland with and without contrast is recommended.
--- NOTE | 2016-07-03 18:54 | DS ---
For Dr. Myers. SUBJECTIVE: The patient is a 76-year-old male seen sitting up in bed, at the bedside, who is a physician, treated for fever of unknown origin with mantle cell lymphoma history, admitted with shaki ng chills and elevated temperatures, now significantly improved; however, after visit today with Dr. He and Dr. Callahan, we will check a CT scan as ordered by Dr. He with consideration for discharge home later after the CT scan is done. On Cipro 500 twice a day for 5 days. The patient is otherwise in no acute distress. OBJECTIVE: VITAL SIGNS: Temperature 98.4, pulse 85, respirations 17, blood pressure 120/65, pulse ox 97%. HEENT: Unremarkable, resolving ecchymotic change in the left eyelid. NECK: Supple. HEART: Regular rate. LUNGS: Decreased breath sounds. ABDOMEN: Soft, protuberant, nontender. EXTREMITIES: Healing ecchymotic changes, left lower extremity greater than right, status post fall. NEUROLOGIC: Awake, alert, and oriented x 3. SKIN: Otherwise, warm, dry and clear. LABORATORY DATA: The patient's labs were done. White blood cell count of 4.9, hemoglobin 10.4, haresh tocrit 32.5, platelet count of 184,000 with a chem panel showing a normal chem panel. Albumin of 2.9 . ASSESSMENT: Fever of unknown origin, history of mantle cell lymphoma, status post chemotherapy, vladimir riosclerotic cardiovascular disease, BPH, diabetes mellitus, history of Shagufta Fungemia in the past with Port-A-Cath with questionable prostate microabscess?. MEDICATIONS: The patient's present medications include oxybutynin, Ecotrin, Lasix, Lidex, Lopressor, mag oxide, Pamelor, Plavix, Protonix, Ranexa, Rapaflo, tramadol, Xopenex, Zofran. PLAN: After conversation with Dr. Myers, we will continue present medical regimen with the patient to be discharged after the CT scan of the abdomen and pelvis is done, if it is negative. The patien t's additional medication will be Cipro 500 mg p.o. b.i.d. for 5 additional days with followup in the office in approximately 3-5 days. His diet is heart healthy. His activities are slow increase to a d sasha over the next 2-3 days. Ted Santoyo MD cc: [id number] TT: 07/03/2016 18:53:28 mn
--- NOTE | 2016-07-03 19:20 | PN ---
DATE: 07/03/2016 The patient is in bed in no acute distress, nontoxic. PHYSICAL EXAMINATION: VITAL SIGNS: Temperature is 98, blood pressure is 120/60, respiratory rate of 18, heart rate of 85. HEENT: Unremarkable. NECK: Supple. LUNGS: Have decreased breath sounds. HEART: Normal S1, S2. ABDOMEN: Soft, nontender. LABORATORY DATA: Reviewed. Microbiology is negative. The patient had a CAT scan of the abdomen and pelvis which was questionable 4 mm hyperlucency in the left mid gland of the prostate gland, which c ould represent an abscess. This is new since his prior examination. The patient did have a Gram-neg ative chiquita in the urine. The blood cultures are negative. ASSESSMENT AND PLAN: A 76-year-old male with mantle cell lymphoma, history of chemotherapy, coronary artery disease, benign prostatic hypertrophy, diabetes, and a history of Shagufta parapsilosis, funge alivia and Port-A-Cath with a temperature of 102 at home, admitted with recurrent fevers and a Gram-nega tive chiquita in the urine culture and it has been finalized as Gram-negative chiquita, currently on tremayne penem, with multiple allergies and patient to be followed by Dr. He, the urologist, as outpatien t regarding possible prostate as the source . CAT scan results noted and the patient is going to foll ow up with. On p.o. Cipro. Marvin Callahan MD cc: 350 TT: 07/03/2016 19:19:34 Confirmation # [id number] Dictation # [id number] mn
[2016-07-03] MEDS: Magnesium Oxide 400 mg Tab UD PO SCH (21:22)
[2016-07-04] MEDS: Meropenem 1g/NS 100mL IVPB 1 GM/100 ML PIGGYBACK IVPB SCH ×3 (05:18→21:29)
[2016-07-04] MEDS: Levalbuterol 1.25 MG/3 ML Inhal Soln UD IH SCH ×3 (08:25→19:44)
--- NOTE | 2016-07-04 09:46 | CON ---
DATE: 07/03/2016 UROLOGY CONSULT REASON FOR UROLOGY CONSULT: Recurrent infections. A very pleasant gentleman who is admitted to the care of Dr. Santoyo. I received the consult tolucas lee. It is 07/03/2016. I received a consult request 4:30 regarding possible urinary tract infections. The patient is a gentleman whom I have seen years back. Mostly, he only comes to the hospital. His is ____ here. Actually, I do not recall seeing him ever in the office. He comes in when he has urinary troubles and is monitored through the hospital. We have previously suggested to him outpatient workup, but in general, the patient had a history of l ymphoma. He is being treated. He is on some kind of active surveillance treatments with Dr. Myers , and he has been in his usual state of health, but of late, he has been having recurrent "urinary tr act infections," although this is difficult for documentation, but he has been having some fevers, an d the etiology is unclear, and that is why urology was consulted. What he reports is that he has urinary frequency, he has no gross hematuria, an occasional dysuria, b ut more frequency in going to the bathroom more than you would expect. He has an okay, but not perfect force of stream. See below about the possibility for workup and testing. But in the interim dictation, he had some irritative and obstructive urinary complaints - all relativ geoffrey within normal limits for a man who is 76 years old. See below. PAST MEDICAL AND SURGICAL HISTORY: As listed. He is under the care of Dr. Santoyo. He is under the care of Dr. Myers, and also seen as a consult. See the urology plan listed below. MEDICATIONS: See chart. PHYSICAL EXAMINATION: GENERAL: Well-nourished male. He is currently resting comfortably. VITAL SIGNS: Noted within normal limits. ABDOMEN: ____, does not seem overly distended. RECTAL: Deferred at this point. LABORATORY VALUES: See chart including the urine culture, which has a positive, but less than 10,000 colony forming units. See below. DIAGNOSES: Recurrent fevers, possible infection, with a ____ culture, and some urinary symptoms that are both irritative and obstructive in nature. So from a urology standpoint, there are various ways to handle this. The possibility for an invasive procedure such as a cystoscope exists, possibility for outpatient workup and treatment also exists, the possibility for ____, after discussing with, Dr. Marques, the . I have discussed with her options. Our plans will be as follows: We are going to obtain a CT scan o f the abdomen and pelvis, and we will see if there is anything going on - a kidney stone, or a source of infections, any kind of abscess or the like, any bladder stones, or any bladder polyps - anything that suggests that further workup is needed. Again, the patient is on some Plavix, and we may need to stop this if we are any other testing. So, in the interim, the plan will be for the followin. Antibiotics as per ID. 2. CT scan, and then further plans will follow. ADDENDUM: Subsequently, a CT scan is done. The next step will be an MRI of just the prostate, ____ no stone disease. There is a question of maybe an abscess. I do not really think that is an abscess on ____, but we wi ll see what the MRI shows, with and without ____ Gadolinium. Silverio He MD cc: [id number] TT: 07/04/2016 09:35:53 Confirmation # [id number] Dictation # [id number] jn
[2016-07-04] MEDS: Pantoprazole 40 mg EC Tab PO SCH (10:18)
[2016-07-04] MEDS ORDERED: Gadodiamide 287 MG/ML VIAL (20ML) IV ONE (10:20)
[2016-07-04] MEDS: Ranolazine [Ranexa] 500 MG PO SCH ×2 (10:22→18:24)
[2016-07-04] MEDS: Magnesium Oxide 400 mg Tab UD PO SCH (21:29)
[2016-07-05] MEDS: Meropenem 1g/NS 100mL IVPB 1 GM/100 ML PIGGYBACK IVPB SCH ×2 (05:26→14:00)
--- NOTE | 2016-07-05 07:59 | PN ---
DATE: 07/04/2016 The patient is in room 317, bed 2. SUBJECTIVE: The patient is sitting out of bed in chair having his evening meal, feels better. No fe vers, no chills, no nausea, no vomiting. He is able to ambulate better. Left lower extremity pain. hematoma in the posterior aspect of his thigh extending down to his leg has improved dramatica lly. The left thigh where he had extensive ecchymosis after the fall has also improvement and regres sed dramatically. Bowels are moving well. PHYSICAL EXAMINATION: GENERAL: The patient is awake, alert, and oriented, in no acute distress. VITAL SIGNS: Stable. T-max is 98.4, blood pressure is 120/60, respirations 18 per minute, heart rat e is 85 per minute. HEENT: Head is normocephalic, atraumatic. Conjunctivae pale. Sclerae are anicteric. Pupils are eq ually reactive to light and accommodation. Examination of the oropharynx reveals no oropharyngeal le sions. NECK: Supple. There is no adenopathy. No jugular venous distention noted. LUNGS: Reveals decreased breath sounds at the bases. HEART: Reveals S1 and S2 to be normal. No gallop or murmur is heard. ABDOMEN: Soft, nontender. Bowel sounds are present. No rebound, rigidity or guarding is noted. EXTREMITIES: Reveals no cyanosis, clubbing or edema. ASSESSMENT NOTES AND PLAN: Detailed discussion with the patient, spoke with the patient's as we ll, Dr. Marques. Spoke with . The concern is that the patient did come into the hospital w ith fevers and chills. This is the third time the patient is in the hospital, is currently on Merrem only. When he came in he was on a combination of vancomycin and Merrem. I told the patient that we will continue antibiotics until tomorrow morning. I spoke with who felt that even though urine culture showed only 10,000 bacteria it was Gram- negative. He [facility] we plan on discharging the patient to home on long-term antibiotics. In view of the [facility] [place] would like to make sure what antibiotic in which to send him home. His prostate coul d be a source. The patient had an MRI of the pelvis done which showed no . We will check with ID again tomorrow for the final identification of the Gram-negative organisms for which we can the patient should be on for how long. Routine post exam instructions have been given to the p athernesto and will resume his starting tomorrow, then assess him for toxin and IV gammaglobulin ne xt week. Alie Myers MD cc: [id number] TT: 07/04/2016 22:30:04 Confirmation # [id number] Dictation # [id number] mn
[2016-07-05] MEDS: Levalbuterol 1.25 MG/3 ML Inhal Soln UD IH SCH ×2 (08:30→13:32)
[2016-07-05] MEDS: Pantoprazole 40 mg EC Tab PO SCH (10:18)
[2016-07-05] MEDS: Ranolazine [Ranexa] 500 MG PO SCH ×2 (10:18→18:26)
[2016-07-05] MEDS ORDERED: Home Med 1 UNIT PO SCH (10:45)
--- NOTE | 2016-07-05 17:44 | CP.PCM.PN ---
Subjective - Date & Time of Evaluation Date of Evaluation: 07/05/16 Time of Evaluation: 11:30 - Subjective Subjective: Comfortable on a chair, not in distress, afebrile, currently no problems with urination. Objective - Vital Signs/Intake and Output Vital Signs (last 24 hours): Temp Pulse Resp BP Pulse Ox 99.0 F 95 H 16 109/58 L 94 L 07/05/16 06:00 07/05/16 10:07/05/16 06:00 07/05/16 10:07/05/16 06:00 Intake and Output: 07/05/16 07/05/16 06:59 18:59 Intake Total 780 960 Output Total 2 Balance 778 960 - Medications Medications: Current Medications Acetaminophen (Tylenol 325mg Tab) 650 mg PO Q6H PRN PRN Reason: Pain, Mild (1-3) Last Admin: 06/30/16 13:55 Dose: 650 mg Aspirin (Ecotrin) 81 mg PO DAILY [facility] Last Admin: 07/05/16 10:17 Dose: 81 mg Clopidogrel Bisulfate (Plavix) 75 mg PO DAILY [facility] Last Admin: 07/05/16 10:18 Dose: 75 mg Fluocinonide (Lidex 0.05% Cream) 15 gm TOP BID [facility] Last Admin: 07/04/16 19:54 Dose: 1 applic Furosemide (Lasix) 20 mg PO DAILY [facility] Last Admin: 07/05/16 10:17 Dose: 20 mg Home Med (Home Med) 4 unit PO DAILY [facility] Meropenem 1g/NS 100mL IVPB (Meropenem 1g/Ns 100ml Ivpb) 1 gm in 100 mls @ 100 mls/hr IVPB Q8 [facility] PRN Reason: Protocol Stop: 07/08/16 22:01 Last Admin: 07/05/16 14:00 Dose: 100 mls/hr Levalbuterol HCl (Xopenex) 1.25 mg IH TID [facility] Last Admin: 07/05/16 13:32 Dose: 1.25 mg Magnesium Oxide (Mag-Ox) 400 mg PO HS [facility] Last Admin: 07/04/16 21:29 Dose: 400 mg Metoprolol Tartrate (Lopressor) 25 mg PO DAILY [facility] Last Admin: 07/05/16 10:17 Dose: 25 mg Metoprolol Tartrate (Lopressor) 12.5 mg PO DIN [facility] Last Admin: 07/04/16 18:24 Dose: 12.5 mg Silodosin [Rapaflo] (8 Mg) 8 mg PO HS [facility] Last Admin: 07/04/16 21:29 Dose: 8 mg Ranolazine [Ranexa] (500 Mg) 500 mg PO BID [facility] Last Admin: 07/05/16 10:18 Dose: 500 mg Nortriptyline HCl (Pamelor) 10 mg PO DAILY [facility] Last Admin: 07/05/16 10:18 Dose: 10 mg Ondansetron HCl (Zofran Tab) 4 mg PO Q6H PRN PRN Reason: Nausea/Vomiting Oxybutynin Chloride (Ditropan Tab) 5 mg PO DAILY [facility] Last Admin: 07/05/16 10:17 Dose: 5 mg Pantoprazole Sodium (Protonix Ec Tab) 40 mg PO DAILY [facility] Last Admin: 07/05/16 10:18 Dose: 40 mg Tramadol HCl (Ultram) 50 mg PO TID PRN PRN Reason: Pain, moderate (4-7) - Labs Labs: 07/03/16 05:00 07/03/16 05:00 PT 11.9 Seconds (9.9-11.8) H 06/29/16 10:13 INR 1.10 (0.93-1.08) H 06/29/16 10:13 APTT 33.6 Seconds (23.7-30.8) H 06/29/16 10:13 - Constitutional Appears: Non-toxic, No Acute Distress - Head Exam Head Exam: NORMAL INSPECTION - ENT Exam ENT Exam: Mucous Membranes Moist - Neck Exam Neck Exam: absent: Lymphadenopathy, Meningismus - Respiratory Exam Respiratory Exam: Decreased Breath Sounds - Cardiovascular Exam Cardiovascular Exam: +S1, +S2 - GI/Abdominal Exam GI & Abdominal Exam: Soft. absent: Tenderness Assessment and Plan - Assessment and Plan (Free Text) Plan: Assessment Probable UTI with E. coli, clinically improving history of left ankle skin and skin structure infection (Cellulitis, non- purulent) history of bilateral lower lobe healthcare-associated pneumonia with Stenotrophomonas, clinically improved and S/P treatment history of MSSA and Pseudomonas tracheobronchitis history of Shagufta parapsilosis fungemia, probable source is the port-a-cath - S /P removal; now with new right anterior chest wall port-a-cath mantle cell lymphoma on chemotherapy coronary artery disease benign prostatic hyperplasia dyslipidemia history of urinary tract infection Plan currently on Meropenem - can be switched to PO Ciprofloxacin (since the E. coli is sensitive and the QTc is less than 500 ms) for another 7-[address] Myers
[2016-07-05 18:28] VITALS: BP 130/72; PULSE 80
[2016-07-05 19:34] VITALS: RESP 18; TEMP 97.5; O2SAT 98
--- NOTE | 2016-07-05 22:00 | PN ---
DATE: 07/05/2016 This is [facility]'s hospital visit. He had a discharge summary done one day prior, was referred to the discharge summary as the patient h ad a consult with Dr. Silverio He who recommended an MRI of the pelvis which was done with recomm endations to continue his hospital stay until the MRI of the pelvis was read. He did have an earlier CT scan of the abdomen and pelvis done on 07/03/2016. It was read as questionable 4 mm high potency left mid gland of the ____ could represent an abscess. This is prior examination confirmed ____ MRI of the prostate with and without contrast. It was recommended and this was done. With this, the tye ent is otherwise in no acute distress for discharge home today on antibiotics as to be listed. OBJECTIVE: PHYSICAL EXAMINATION: VITAL SIGNS: Temperature 97.5, pulse 80, respirations 18, blood pressure 130/72, pulse ox 98%. HEENT: Unremarkable. NECK: Supple. HEART: Regular rate, occasional ectopic beat. LUNGS: Decreased breath sounds. ABDOMEN: Soft, nontender. EXTREMITIES: Ecchymotic changes, healing of the face on the left and lower extremities on the left. NEUROLOGIC: Awake, alert and oriented. SKIN: Otherwise, warm, dry and clear. The patient's labs were done 2 days prior and have not been repeated. The patient's urine culture grew out E. coli from 06/29/ less than 10,000 colonies. The patient has been afebrile since admission on IV antibiotics. ASSESSMENT: Fevers of unknown origin, questionable abscess of the prostate, mantle cell lymphoma, at herosclerotic cardiovascular disease, benign prostatic hyperplasia, diabetes mellitus, Port-A-Cath. CT scan readings as above. DISCHARGE MEDICATIONS: Oxybutynin, Ecotrin, Lasix, Lidex, Lopressor, mag oxide, Pamelor, Plavix, Prot lily, Ranexa, Rapaflo, tramadol, Xopenex, Zofran. With this we will add Cipro 250 mg twice a day for 7 additional days with the patient to follow up in approximately 5 days' time or earlier in the offi ce with Dr. Myers. Again, one is referred to the discharge summary from 2 days prior for his definitive discharge on 05/2016 with no changes in the previous discharge summary's findings. Ted Santoyo MD cc: [id number] TT: 07/05/2016 21:59:55 Confirmation # [id number] Dictation # [id number] jn
[2016-07-06] MEDS ORDERED: IMBRUVICA 140 MG PO SCH (10:00)
--- NOTE | 2016-07-09 10:49 | MRI ---
PROCEDURE: MRI pelvis with and without contrast HISTORY: attention prostate COMPARISON: None available. TECHNIQUE: Multiplanar, multi sequence MR images of the pelvis were obtained following administration of intravenous gadolinium contrast. FINDINGS: BOWEL: Partially visualized rectosigmoid colon demonstrates colonic diverticulosis. LYMPH NODES: No lymphadenopathy. BLADDER: Unremarkable. PROSTATE: Signal heterogeneity of the peripheral zone in the right mid gland without significant restricted diffusion. No evidence of intra prostatic abscess. Evidence of previous trans urethral resection of the prostate. Normal size. FREE FLUID: None. PELVIC BONES: Grossly unremarkable. OTHER FINDINGS: Edema in the left retroperitoneal soft tissues extending inferiorly. IMPRESSION: Status post TURP. No evidence of intra prostatic abscess. No suspicious restricted diffusion or enhancement. Recommend correlation with PSA levels.
== END 2016-07-05 19:00 | disposition home or self-care (01) | DRG 864 ==
LOC: ED 09:29 → ERH 11:13 → 3RSO 13:13
PROVIDERS: ADMIT Family Medicine; ATTEND Family Medicine
PROC: 3E0F7GC Introduction of Other Therapeutic Substance into Respiratory Tract, Via Natural or Artificial Opening (ICD-10-PCS; principal; 2016-06-30)
DX: R50.9 Fever, unspecified (principal); N41.2 Abscess of prostate; C83.10 Mantle cell lymphoma, unspecified site; N39.0 Urinary tract infection, site not specified; E11.9 Type 2 diabetes mellitus without complications; B96.20 Unspecified Escherichia coli [E. coli] as the cause of diseases classified elsewhere; E78.5 Hyperlipidemia, unspecified; I25.10 Atherosclerotic heart disease of native coronary artery without angina pectoris; N40.0 Benign prostatic hyperplasia without lower urinary tract symptoms; Z92.21 Personal history of antineoplastic chemotherapy; Z88.0 Allergy status to penicillin

== ENCOUNTER 2016-07-23 02:18 | Inpatient (IN) | payer MEDICARE, OTHER ==
[2016-07-23 02:18] VITALS: BMI 27.4
[2016-07-23] MEDS ORDERED: Sodium Chloride 0.9% 1,000 ML IV STA (02:41)
--- NOTE | 2016-07-23 02:41 | ED PDOC ---
Arrival/HPI - General Chief Complaint: Fever Time Seen by Provider: 07/23/16 02:32 Historian: Patient - History of Present Illness Narrative History of Present Illness (Text): 07/23/16 02:40 Jakub Marques is a 76 year old male, whose past medical history includes mantle cell lymphoma, CAD with stents, CHF, hypertension, diabetes, and BPH, who presents to the Emergency department complaining of fever of 102 at home for 2-3 hours. Patient reports associated chills and notes he had Tylenol at home. Patient denies any chest pain, shortness of breath, nausea, vomiting, diarrhea, urinary symptoms, back pain, neck pain, headache, dizziness, or any other complaints. 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), Other Symptom Onset: Gradual Symptom Course: Unchanged Activities at Onset: Rest, Light Context: Home Past Medical History - Provider Review Nursing Documentation Reviewed: Yes - Past History Past History: Unable to Obtain - Infectious Disease Hx of Infectious Diseases: None - Tetanus Immunization Tetanus Immunization: Unknown - Cardiac Hx Cardiac Disorders: Yes (cad, angioplasty) Hx Hypertension: Yes - Pulmonary Hx Asthma: Yes Hx Pneumonia: No - Neurological Hx Transient Ischemic Attacks (TIA): Yes - HEENT Hx HEENT Disorder: Yes (wears eyeglasses) Hx Deafness: Yes Other/Comment: left ear sx for multiple infections has hearing loss uses a hearing aid, uses a hearing aid in right ear also - Renal Hx Renal Failure: No - Endocrine/Metabolic Hx Diabetes Mellitus Type 2: Yes - Hematological/Oncological Hx Blood Disorders: No Hx Anemia: Yes (blood transfusion) Hx Cancer: Yes (active mantle cell lymphoma) Hx Chemotherapy: Yes - Integumentary Other/Comment: healed b/l groin fungal rash,multiple bruises to left leg, bruise to left side of face from recent fall, patient feels lump under skin top inner left buttock, small eccymotic area to left fa - Musculoskeletal/Rheumatological Hx Falls: Yes (recent) - Gastrointestinal Hx Gastrointestinal Disorders: No - Genitourinary/Gynecological Hx Genitourinary Disorders: Yes (H/O URINARY FREQUENCY,DYSURIA,UTI) Hx Prostate Problems: Yes (bph/prostectomy/enlarged prostate) Other/Comment: c/o urinary urgency - Psychiatric Hx Psychophysiologic Disorder: No Hx Anxiety: Yes Hx Emotional Abuse: No Hx Physical Abuse: No Hx Substance Use: No - Past Surgical History Past Surgical History: Unable to Obtain - Surgical History Hx Cardiac Catheterization: Yes Hx Coronary Stent: Yes Hx Orthopedic Surgery: Yes (r thumb) Other/Comment: head sx post injury, video assisted thorascopy with right pulmonary nodule dissection at [facility], left lung bx, r cw pac - Anesthesia Hx Anesthesia: Yes Hx Anesthesia Reactions: No Hx Malignant Hyperthermia: No - Suicidal Assessment Feels Threatened In Home Enviroment: No Family/Social History - Physician Review Nursing Documentation Reviewed: Yes Family/Social History: No Known Family HX Smoking Status: Never Smoked Hx Alcohol Use: No Hx Substance Use: No Hx Substance Use Treatment: No Allergies/Home Meds Allergies/Adverse Reactions: Allergies azithromycin Allergy (Severe, Verified 06/29/16 09:41) ANGIOEDEMA erythromycin base Allergy (Severe, Verified 06/29/16 09:41) ANGIOEDEMA Penicillins Allergy (Severe, Verified 06/29/16 09:41) ANAPHYLAXIS cephalexin monohydrate [From Keflex] Allergy (Intermediate, Verified 06/29/16 09 :41) RASH gabapentin Allergy (Intermediate, Verified 06/29/16 09:41) RASH pregabalin Allergy (Intermediate, Verified 06/29/16 09:41) RASH Sulfa (Sulfonamide Antibiotics) Allergy (Intermediate, Verified 06/29/16 09:41) RASH nitro paste Allergy (Intermediate, Uncoded 06/29/16 09:41) DIZZINESS/HYPOTENSION CAUSE HYPOTENSION Home Medications: Home Meds Medication Instructions Recorded Confirmed Aspirin [Aspirin EC] 81 mg PO DAILY 09/10/15 07/23/16 Oxybutynin Chloride 5 mg PO DAILY 09/10/15 07/23/16 Levalbuterol [Xopenex] 1.25 mg IH TID 01/31/16 07/23/16 Acetaminophen [Tylenol (Renal)] 650 mg PO Q6 PRN 04/21/16 07/23/16 Metoprolol Tartrate [Lopressor] 25 mg PO HS 04/21/16 07/23/16 Pantoprazole [Protonix EC Tab] 40 mg PO DAILY 04/21/16 07/23/16 Calcium Carbonate/Vitamin D3 600 mg PO DAILY 06/03/16 07/23/16 [Caltrate 600 + D Soft Chew Tab] Magnesium Oxide [Magnesium] 400 mg PO HS 06/03/16 07/23/16 Nortriptyline HCl [Pamelor] 10 mg PO DAILY 06/03/16 07/23/16 Ranolazine [Ranexa] 500 mg PO BID 06/03/16 07/23/16 Silodosin [Rapaflo] 8 mg PO HS 06/03/16 07/23/16 Review of Systems - Physician Review All systems were reviewed & negative as marked: Yes - Review of Systems Constitutional: Fevers, Other (+chills) Eyes: Normal ENT: Normal Respiratory: Normal. absent: SOB, Cough Cardiovascular: Normal. absent: Chest Pain Gastrointestinal: Normal. absent: Abdominal Pain, Diarrhea, Nausea, Vomiting Genitourinary Male: Normal. absent: Dysuria, Frequency, Hematuria, Urinary Output Changes Musculoskeletal: Normal. absent: Back Pain, Neck Pain Skin: Normal. absent: Rash Neurological: Normal. absent: Headache, Dizziness Endocrine: Normal Hemo/Lymphatic: Normal Psychiatric: Normal Physical Exam Vital Signs Reviewed: Yes Vital Signs Temp Pulse Resp BP Pulse Ox 07/23/16 02:51 83 18 125/69 95 07/23/16 02:38 98.5 F Temperature: Afebrile Blood Pressure: Normal Pulse: Regular Respiratory Rate: Normal Appearance: Positive for: Well-Appearing, Non-Toxic, Comfortable Pain Distress: None Mental Status: Positive for: Alert and Oriented X 3 - Systems Exam Head: Present: Atraumatic, Normocephalic Pupils: Present: PERRL Extroacular Muscles: Present: EOMI Conjunctiva: Present: Normal Mouth: Present: Moist Mucous Membranes Neck: Present: Normal Range of Motion Respiratory/Chest: Present: Clear to Auscultation, Good Air Exchange. No: Respiratory Distress, Accessory Muscle Use Cardiovascular: Present: Regular Rate and Rhythm, Normal S1, S2. No: Murmurs Abdomen: Present: Normal Bowel Sounds. No: Tenderness, Distention, Peritoneal Signs Back: Present: Normal Inspection Upper Extremity: Present: Normal Inspection. No: Cyanosis, Edema Lower Extremity: Present: Normal Inspection. No: Edema Neurological: Present: GCS=15, CN II-XII Intact, Speech Normal Skin: Present: Warm, Dry, Normal Color. No: Rashes Psychiatric: Present: Alert, Oriented x 3, Normal Insight, Normal Concentration Medical Decision Making ED Course and Treatment: 07/23/16 02:40 Impression: 76 year old male complaining of fever and chills at home for 2-3 hours. Plan: -- EKG -- Chest X-ray -- Labs, VBG, blood cultures -- Urinalysis, urine cultures -- IV fluids -- Reassess and disposition Prior Visits: Notes and results from previous visits were reviewed. Progress Notes: 07/23/16 04:43 Reviewed radiology, Chest X-ray shows no acute processes. 07/23/16 04:58 Reviewed EKG, NSR at 82 bpm[address] Non-specific ST/T wave changes. 07/23/16 05:[address] Myers, who is aware and agrees with plan. Accepts pt in to his service. Pt will be admitted to [facility] for fever, unknown origin. Requests Dr. Callahan on consult. - Lab Interpretations Lab Results: 07/23/16 02:44 07/23/16 02:44 Lab Results 07/23/16 03:20: Urine Color Yellow, Urine Appearance Clear, Urine pH 7.5, Ur Specific [place] 1.010, Urine Protein Negative, Urine Glucose (UA) Negative, Urine Ketones Negative, Urine Blood Negative, Urine Nitrate Negative, Urine Bilirubin Negative, Urine Urobilinogen 0.2, Ur Leukocyte Esterase Negative 07/23/16 02:44: Sodium 135, Chloride 98, Potassium 4.0, Carbon Dioxide 29, Anion Gap 12, BUN 18, Creatinine 1.1, Est GFR ( Amer) > 60, Est GFR (Non- Af Amer) > 60, Random Glucose 134 H, Calcium 8.7, Phosphorus 3.8, Magnesium 1.8 , Total Bilirubin 1.0, AST 38, ALT 36, Alkaline Phosphatase 115, Total Protein 7.1, Albumin 3.7, Globulin 3.4, Albumin/Globulin Ratio 1.1 07/23/16 02:44: pO2 67 H, VBG pH 7.39, VBG pCO2 49.0, VBG HCO3 29.7 H, VBG Total CO2 31.2 H, VBG O2 Sat (Calc) 94.9 H, VBG Base Excess 4.0 H, Sodium 133.0 , Chloride 103.0, Glucose 131 H, Lactate 1.4, FiO2 21.0 07/23/16 02:44: PT 11.4, INR 1.06, APTT 30.2 07/23/16 02:44: WBC 4.7, RBC 4.51, Hgb 11.6 L, Hct 35.4 L, MCV 78.5 L, MCH 25.7 , MCHC 32.8, RDW 18.4 H, Plt Count 152, MPV 9.9, Gran % 57.7, Lymph % (Auto) 23.7, [place] % (Auto) 15.9 H, Eos % (Auto) 2.1, Baso % (Auto) 0.6, Gran # 2.73, Lymph # 1.1 L, [place] # 0.8 H, Eos # 0.1, Baso # 0.03 I have reviewed the lab results: Yes - RAD Interpretation Radiology Orders: 07/23/16 02:40 CHEST PORTABLE [RAD] Stat Hotel [employer] Mot[employer] Manager: ED Physician - EKG Interpretation Interpreted by ED Physician: Yes Type: 12 lead EKG - Medication Orders Current Medication Orders: Acetaminophen (Tylenol 325mg Tab) 650 mg PO Q4H PRN PRN Reason: Fever >100.5 F Vancomycin HCl (Vancomycin 1gm) 1 gm in 250 mls @ 133.333 mls/hr IVPB STAT STA PRN Reason: Protocol Stop: 07/23/16 06:50 Meropenem 1g/NS 100mL IVPB (Meropenem 1g/Ns 100ml Ivpb) 1 gm in 100 mls @ 100 mls/hr IVPB STAT STA PRN Reason: Protocol Stop: 07/23/16 06:14 Discontinued Medications Sodium Chloride (Sodium Chloride 0.9%) 1,000 mls @ 999 mls/hr IV .Q1H1M STA Stop: 07/23/16 03:41 Last Admin: 07/23/16 03:58 Dose: 999 mls/hr - Scribe Statement The provider has reviewed the documentation as recorded by the Jadielibyovana Balderas All medical record entries made by the Scribyovana were at my direction and personally dictated by me. I have reviewed the chart and agree that the record accurately reflects my personal performance of the history, physical exam, medical decision making, and the department course for this patient. I have also personally directed, reviewed, and agree with the discharge instructions and disposition. Disposition/Present on Arrival - Present on Arrival Any Indicators Present on Arrival: No History of DVT/PE: No History of Uncontrolled Diabetes: No Urinary Catheter: No History of Decub. Ulcer: No History Surgical Site Infection Following: None - Disposition Have Diagnosis and Disposition been Completed?: Yes Diagnosis: Fever of unknown origin Disposition: HOSPITALIZED Disposition Time: 05:26 Patient Plan: Admission Condition: GOOD Referrals: Alie Myers MD [Primary Care Provider] - Follow up with primary
[2016-07-23 02:54] LABS: ADD MANUAL DIFF? NO
[2016-07-23 03:06] LABS: ALB/GLOB RATIO 1.1 (1.1-1.8); ALKALINE PHOSPHATASE 115 U/L (38-133); ALT/SGPT 36 U/L (7-56); AST/SGOT 38 U/L (15-59); BASO # 0.03 K/mm3 (0.0-2.0); BASO % 0.6 % (0.0-3.0); BLOOD UREA NITROGEN 18 mg/dL (7-21); CALCIUM 8.7 mg/dL (8.4-10.5); CARBON DIOXIDE 29 mmol/L (21-33); CHLORIDE 98 mmol/L (98-107); EOS # 0.1 (0.0-0.7); EOS % 2.1 % (1.5-5.0); GFR AFRICAN-AMERICAN > 60; GLUCOSE,RANDOM 134 mg/dL (70-110); GRAN # 2.73 (1.4-6.5); GRAN % 57.7 % (50.0-68.0); HEMATOCRIT 35.4 % (42.0-52.0); LYMPH # 1.1 (1.2-3.4); LYMPH % 23.7 % (22.0-35.0); MAGNESIUM 1.8 mg/dL (1.7-2.2); MEAN CELL VOLUME 78.5 fL (80.0-105.0); MEAN CORPUSCULAR HEMOGLOBIN 25.7 pg (25.0-35.0); MEAN CORPUSCULAR HGB CONC 32.8 g/dl (31.0-37.0); MEAN PLATELET VOLUME 9.9 fl (7.0-11.0); MONO # 0.8 (0.1-0.6); MONO % 15.9 % (1.0-6.0); PHOSPHOROUS 3.8 mg/dL (2.5-4.5); PLATELET COUNT 152 10^3/uL (120.0-450.0); RED CELL DISTRIBUTION WIDTH 18.4 % (11.5-14.5); SODIUM 135 mmol/L (132-148); TOTAL PROTEIN 7.1 g/dL (5.8-8.3); WHITE BLOOD COUNT 4.7 10^3/ul (4.5-11.0)
[2016-07-23 03:08] LABS: INR 1.06 (0.93-1.08); PARTIAL THROMBOPLASTIN TIME 30.2 Seconds (23.7-30.8)
[2016-07-23 03:49] LABS: PH,URINE 7.5 (4.7-8.0); URINE BILIRUBIN NEGATIVE (NEGATIVE); URINE BLOOD NEGATIVE (NEGATIVE); URINE GLUCOSE (UA) NEGATIVE (NEGATIVE); URINE KETONE NEGATIVE (NEGATIVE); URINE LEUKOCYTE ESTERASE NEGATIVE Leu/uL (NEGATIVE); URINE PROTEIN NEGATIVE mg/dL (<30 mg/dL); URINE UROBILINOGEN 0.2 E.U./dL (<1 E.U./dL)
[2016-07-23 03:54] LABS: URINE APPEARANCE CLEAR (CLEAR); URINE COLOR YELLOW (YELLOW)
[2016-07-23 03:55] LABS: VENOUS BLOOD PH 7.39 (7.32-7.43)
[2016-07-23] MEDS ORDERED: Vancomycin 1gm in NS 250ml 1 GM/250 ML BAG IVPB STA (04:58)
[2016-07-23] MEDS ORDERED: Meropenem 1g/NS 100mL IVPB 1 GM/100 ML PIGGYBACK IVPB STA (05:15)
[2016-07-23] MEDS: RANEXA 500MG PO SCH ×2 (11:00→21:43)
[2016-07-23] MEDS: Pantoprazole 20 mg EC Tab PO SCH (11:00)
[2016-07-23] MEDS: CALCIUM 600MG PO SCH (11:00)
[2016-07-23] MEDS: Magnesium Oxide 400 mg Tab UD PO SCH (11:00)
--- NOTE | 2016-07-23 12:14 | RAD ---
HISTORY: Sepsis Patient COMPARISON: 06/29/2016 FINDINGS: LUNGS: No active pulmonary disease. PLEURA: No significant pleural effusion identified, no pneumothorax apparent. CARDIOVASCULAR: Right central venous infusion port. Normal heart size. OSSEOUS STRUCTURES: No significant abnormalities. VISUALIZED UPPER ABDOMEN: Normal. OTHER FINDINGS: None. IMPRESSION: No active disease.
--- NOTE | 2016-07-23 13:28 | US ---
PROCEDURE: Right upper extremity venous US CLINICAL HISTORY: Arm pain and swelling Evaluate for deep venous thrombosis. PHYSICIAN(S): Je Horne M.D FINDINGS: The visualized rightinternal jugular vein is sonographically normal and compressible. No evidence of obstruction or thrombus is seen. The visualized segments of the right subclavian vein are patent with normal waveforms. No sonographic evidence of obstruction or thrombosis is seen. The visualized deep venous system of the proximal right upper extremity is sonographically normal and compressible. IMPRESSION: 1. No sonographic evidence for deep venous thrombosis in the visualized segments of the right upper extremity.
--- NOTE | 2016-07-23 13:28 | CP.PCM.CON ---
History of Present Illness - History of Present Illness History of Present Illness: 76 year old male with PMH of mantle cell lymphoma with history of chemotherapy, coronary artery disease, benign prostatic hyperplasia, dyslipidemia, history of urinary tract infection, history of candidemia, history of bilateral pneumonia was recently admitted in [facility] for fever and was found to have UTI. No prostatic abscess was found then. Last night, the patient had a temperature of 102 F at home and he was brought in for further evaluation. Currently the patient is afebrile, not in distress, denies cough or colds, no sore throat, no rhinorrhea, no headache or dizziness, no chest pain, no SOB, no dysphagia, no abdominal pain, no diarrhea, no dysuria, no leg pain. Infectious Diseases consult is requested to further evaluate and manage. Review of Systems - Review of Systems All systems: reviewed and no additional remarkable complaints except (as per HPI ) Past Patient History - Infectious Disease Hx of Infectious Diseases: None - Tetanus Immunizations Tetanus Immunization: Unknown - Past Medical History & Family History Past Medical History?: Yes - Past Social History Smoking Status: Never Smoked - CARDIAC Hx Cardiac Disorders: Yes (cad, angioplasty) Hx Hypertension: Yes - PULMONARY Hx Asthma: Yes Hx Pneumonia: No - NEUROLOGICAL Hx Transient Ischemic Attacks (TIA): Yes - HEENT Hx HEENT Problems: Yes (wears eyeglasses) Hx Deafness: Yes Other/Comment: left ear sx for multiple infections has hearing loss uses a hearing aid, uses a hearing aid in right ear also - RENAL Hx Renal Failure: No - ENDOCRINE/METABOLIC Hx Diabetes Mellitus Type 2: Yes - HEMATOLOGICAL/ONCOLOGICAL Hx Blood Disorders: No Hx Anemia: Yes (blood transfusion) Hx Cancer: Yes (active mantle cell lymphoma) Hx Chemotherapy: Yes - INTEGUMENTARY Other/Comment: healed b/l groin fungal rash,multiple bruises to left leg, bruise to left side of face from recent fall, patient feels lump under skin top inner left buttock, small eccymotic area to left fa - MUSCULOSKELETAL/RHEUMATOLOGICAL Hx Falls: Yes (recent) - GASTROINTESTINAL Hx Gastrointestinal Disorders: No - GENITOURINARY/GYNECOLOGICAL Hx Genitourinary Disorders: Yes (H/O URINARY FREQUENCY,DYSURIA,UTI) Hx Prostate Problems: Yes (bph/prostectomy/enlarged prostate) Other/Comment: c/o urinary urgency - PSYCHIATRIC Hx Psychophysiologic Disorder: No Hx Anxiety: Yes Hx Emotional Abuse: No Hx Physical Abuse: No Hx Substance Use: No - SURGICAL HISTORY Hx Cardiac Catheterization: Yes Hx Coronary Stent: Yes Hx Orthopedic Surgery: Yes (r thumb) Other/Comment: head sx post injury, video assisted thorascopy with right pulmonary nodule dissection at [facility], left lung bx, r cw pac - ANESTHESIA Hx Anesthesia: Yes Hx Anesthesia Reactions: No Hx Malignant Hyperthermia: No Meds Allergies/Adverse Reactions: Allergies Allergy/AdvReac Type Severity Reaction Status Date / Time azithromycin Allergy Severe ANGIOEDEMA Verified 06/29/16 09:41 erythromycin base Allergy Severe ANGIOEDEMA Verified 06/29/16 09:41 Penicillins Allergy Severe ANAPHYLAXIS Verified 06/29/16 09:41 cephalexin monohydrate Allergy Intermediate RASH Verified 06/29/16 09:41 [From Keflex] gabapentin Allergy Intermediate RASH Verified 06/29/16 09:41 pregabalin Allergy Intermediate RASH Verified 06/29/16 09:41 Sulfa (Sulfonamide Allergy Intermediate RASH Verified 06/29/16 09:41 Antibiotics) nitro paste Allergy Intermediate DIZZINESS/H Uncoded 06/29/16 09:41 YPOTENSION - Medications Medications: Current Medications Acetaminophen (Tylenol 325mg Tab) 650 mg PO Q4H PRN PRN Reason: Fever >100.5 F Physical Exam - Constitutional Appears: Non-toxic, No Acute Distress - Head Exam Head Exam: NORMAL INSPECTION - ENT Exam ENT Exam: Mucous Membranes Moist - Neck Exam Neck exam: Negative for: Lymphadenopathy, Meningismus - Respiratory Exam Respiratory Exam: Decreased Breath Sounds Additional comments: right chest wall port site clean - Cardiovascular Exam Cardiovascular Exam: +S1, +S2 - GI/Abdominal Exam GI & Abdominal Exam: Soft. absent: Tenderness Results - Vital Signs Recent Vital Signs: Last Vital Signs Temp 98.5 F 07/23/16 06:27 Pulse 88 07/23/16 06:27 Resp 20 07/23/16 06:27 BP 125/78 07/23/16 06:27 Pulse Ox 98 07/23/16 06:27 - Labs Result Diagrams: 07/23/16 02:44 07/23/16 02:44 Assessment & Plan - Assessment and Plan (Free Text) Plan: Assessment Fever R/O sepsis history of UTI with E. 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
[2016-07-23] MEDS ORDERED: Levalbuterol 1.25 MG/3 ML Inhal Soln UD IH SCH (14:00)
[2016-07-23] MEDS: Levalbuterol 0.63 MG/3 ML Inhal Soln UD IH SCH (19:48)
[2016-07-23] MEDS: RAPAFLO 8MG PO SCH (21:44)
[2016-07-23] MEDS: Meropenem 1g/NS 100mL IVPB 1 GM/100 ML PIGGYBACK IVPB SCH (21:45)
--- NOTE | 2016-07-24 01:35 | CARD ---
APPROVED REPORT EKG Measurement Heart [id number] <Conclusion> Normal sinus rhythm Cannot rule out Anterior infarct, age undetermined Abnormal ECG
[2016-07-24] MEDS: Levalbuterol 0.63 MG/3 ML Inhal Soln UD IH SCH ×3 (08:11→19:49)
[2016-07-24] MEDS: Meropenem 1g/NS 100mL IVPB 1 GM/100 ML PIGGYBACK IVPB SCH ×2 (09:48→21:46)
[2016-07-24] MEDS: Magnesium Oxide 400 mg Tab UD PO SCH (09:48)
[2016-07-24] MEDS: Pantoprazole 20 mg EC Tab PO SCH (09:48)
[2016-07-24] MEDS: CALCIUM 600MG PO SCH (09:49)
[2016-07-24] MEDS: RANEXA 500MG PO SCH ×2 (09:49→21:45)
--- NOTE | 2016-07-24 12:23 | CP.PCM.HP ---
History of Present Illness - History of Present Illness History of Present Illness: Mr Marques is a 76 year old male with a pmhx significant for mantle cell lymphoma (on ritux and ibrutinib), DM, BPH, CHF, HTN a recent prolong hospitalization for fevers of unclear eitiology who currently presents with fevers the previous evening. Patient denies cough, SOB, dysuria, skin rash lesions, diarrhea, constipation, n/vomiting. Denies any tenderness at mediport cite Present on Admission - Present on Admission Any Indicators Present on Admission: No History of DVT/PE: No History of Uncontrolled Diabetes: No Urinary Catheter: No Decubitus Ulcer Present: No Review of Systems - Constitutional Constitutional: As Per HPI - Cardiovascular Cardiovascular: As Per HPI - Respiratory Respiratory: As Per HPI - Gastrointestinal Gastrointestinal: As Per HPI - Integumentary Integumentary: As Per HPI - Hematologic/Lymphatic Hematologic: As Per HPI. absent: Easy Bleeding, Easy Bruising, Lymphadenopathy , Other Past Patient History - Infectious Disease Hx of Infectious Diseases: None - Tetanus Immunizations Tetanus Immunization: Unknown - Past Medical History & Family History Past Medical History?: Yes - Past Social History Smoking Status: Never Smoked - CARDIAC Hx Cardiac Disorders: Yes (cad, angioplasty) Hx Hypertension: Yes - PULMONARY Hx Asthma: Yes Hx Pneumonia: No - NEUROLOGICAL Hx Transient Ischemic Attacks (TIA): Yes - HEENT Hx HEENT Problems: Yes (wears eyeglasses) Hx Deafness: Yes Other/Comment: left ear sx for multiple infections has hearing loss uses a hearing aid, uses a hearing aid in right ear also - RENAL Hx Renal Failure: No - ENDOCRINE/METABOLIC Hx Diabetes Mellitus Type 2: Yes - HEMATOLOGICAL/ONCOLOGICAL Hx Blood Disorders: No Hx Anemia: Yes (blood transfusion) Hx Cancer: Yes (active mantle cell lymphoma) Hx Chemotherapy: Yes - INTEGUMENTARY Other/Comment: healed b/l groin fungal rash,multiple bruises to left leg, bruise to left side of face from recent fall, patient feels lump under skin top inner left buttock, small eccymotic area to left fa - MUSCULOSKELETAL/RHEUMATOLOGICAL Hx Falls: Yes (recent) - GASTROINTESTINAL Hx Gastrointestinal Disorders: No - GENITOURINARY/GYNECOLOGICAL Hx Genitourinary Disorders: Yes (H/O URINARY FREQUENCY,DYSURIA,UTI) Hx Prostate Problems: Yes (bph/prostectomy/enlarged prostate) Other/Comment: c/o urinary urgency - PSYCHIATRIC Hx Psychophysiologic Disorder: No Hx Anxiety: Yes Hx Emotional Abuse: No Hx Physical Abuse: No - SURGICAL HISTORY Hx Cardiac Catheterization: Yes Hx Coronary Stent: Yes Hx Orthopedic Surgery: Yes (r thumb) Other/Comment: head sx post injury, video assisted thorascopy with right pulmonary nodule dissection at [facility], left lung bx, r cw pac - ANESTHESIA Hx Anesthesia: Yes Hx Anesthesia Reactions: No Hx Malignant Hyperthermia: No Meds Allergies/Adverse Reactions: Allergies Allergy/AdvReac Type Severity Reaction Status Date / Time azithromycin Allergy Severe ANGIOEDEMA Verified 06/29/16 09:41 erythromycin base Allergy Severe ANGIOEDEMA Verified 06/29/16 09:41 Penicillins Allergy Severe ANAPHYLAXIS Verified 06/29/16 09:41 cephalexin monohydrate Allergy Intermediate RASH Verified 06/29/16 09:41 [From Keflex] gabapentin Allergy Intermediate RASH Verified 06/29/16 09:41 pregabalin Allergy Intermediate RASH Verified 06/29/16 09:41 Sulfa (Sulfonamide Allergy Intermediate RASH Verified 06/29/16 09:41 Antibiotics) nitro paste Allergy Intermediate DIZZINESS/H Uncoded 06/29/16 09:41 YPOTENSION Physical Exam - Constitutional Appears: Well, No Acute Distress - Head Exam Head Exam: ATRAUMATIC, NORMAL INSPECTION, NORMOCEPHALIC - Eye Exam Eye Exam: Normal appearance. absent: Scleral icterus - Neck Exam Neck exam: Positive for: Full Rom, Normal Inspection - Respiratory Exam Respiratory Exam: Clear to Auscultation Bilateral, NORMAL BREATHING PATTERN - Cardiovascular Exam Cardiovascular Exam: REGULAR RHYTHM - GI/Abdominal Exam GI & Abdominal Exam: Normal Bowel Sounds, Soft. absent: Tenderness - Extremities Exam Extremities exam: Positive for: calf tenderness Results - Vital Signs Recent Vital Signs: Last Vital Signs Temp 98.1 F 07/24/16 08:02 Pulse 75 07/24/16 08:02 Resp 20 07/24/16 08:02 BP 113/65 07/24/16 08:02 Pulse Ox 97 07/24/16 08:02 - Labs Result Diagrams: 07/23/16 02:44 07/23/16 02:44 Labs: Laboratory Results - last 24 hr 07/23/16 07:00 Procalcitonin 0.06 L Assessment & Plan - Assessment and Plan (Free Text) Assessment: Jakub Marques is a 76 year old male, whose past medical history includes mantle cell lymphoma, CAD with stents, CHF, hypertension, diabetes, and BPH, hx of LLE cellulitis, MSSA pseudomonas tracheobronchtis. 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 Currently no focalizing symptoms for infection. ID consulted and patient started on broad spectrum abx (vanc/ meropenem) in ED. At present will continue broad spectrum abx. Cultures (UCx, Blood, Mediport) are all pending. Patient feels symptomatically better with abx. If cultures are negative and persistently febrile will need to entertain other sources of infection including the mediport potentially. However, fevers are a noted sided affect of ibrutinib (imbruvica) it is possible that the fevers that he has could be reflective of his medication? The medication was stopped on admission. Will plan on contiuiuing home medications but will plan on holding ibrutinib (as mentioned) and lasix given on going fevers with increased insensible losses and concern for sepsis physiology
--- NOTE | 2016-07-24 16:39 | CP.PCM.PN ---
Subjective - Date & Time of Evaluation Date of Evaluation: 07/24/16 Time of Evaluation: 11:25 - Subjective Subjective: Comfortable in bed, now afebrile, no nausea, no diarrhea, no pain at the port site, no SOB, no cough, no headache or dizziness. Objective - Vital Signs/Intake and Output Vital Signs (last 24 hours): Temp Pulse Resp BP Pulse Ox 98.1 F 75 20 113/65 97 07/24/16 08:02 07/24/16 08:02 07/24/16 08:02 07/24/16 08:02 07/24/16 08:02 Intake and Output: 07/24/16 07/24/16 06:59 18:59 Intake Total 720 Balance 720 - Medications Medications: Current Medications Acetaminophen (Tylenol 325mg Tab) 650 mg PO Q4H PRN PRN Reason: Fever >100.5 F Aspirin (Aspirin Chewable) 81 mg PO DAILY [facility] Last Admin: 07/24/16 09:48 Dose: 81 mg Atorvastatin Calcium (Lipitor) 20 mg PO DIN [facility] Last Admin: 07/23/16 17:46 Dose: 20 mg Clopidogrel Bisulfate (Plavix) 75 mg PO DAILY [facility] Last Admin: 07/24/16 09:48 Dose: 75 mg Home Med (Home Med) 1 unit PO Q12 [facility] Last Admin: 07/24/16 09:49 Dose: 1 unit Home Med (Home Med) 1 unit PO HS [facility] Last Admin: 07/23/16 21:44 Dose: 1 unit Home Med (Home Med) 1 unit PO DAILY [facility] Last Admin: 07/24/16 09:49 Dose: 1 unit Meropenem 1g/NS 100mL IVPB (Meropenem 1g/Ns 100ml Ivpb) 1 gm in 100 mls @ 100 mls/hr IVPB Q12 [facility] PRN Reason: Protocol Stop: 07/30/16 22:01 Last Admin: 07/24/16 09:48 Dose: 100 mls/hr Levalbuterol HCl (Xopenex) 0.63 mg IH TIDRESP [facility] Last Admin: 07/24/16 13:45 Dose: 0.63 mg Magnesium Oxide (Mag-Ox) 400 mg PO DAILY [facility] Last Admin: 07/24/16 09:48 Dose: 400 mg Metoprolol Tartrate (Lopressor) 25 mg PO DAILY [facility] Metoprolol Tartrate (Lopressor) 12.5 mg PO HS [facility] Last Admin: 07/23/16 21:46 Dose: 12.5 mg Nortriptyline HCl (Pamelor) 10 mg PO DAILY [facility] Last Admin: 07/24/16 09:48 Dose: 10 mg Ondansetron HCl (Zofran Inj) 4 mg IVP Q6H PRN PRN Reason: Nausea/Vomiting Oxybutynin Chloride (Ditropan Tab) 5 mg PO DAILY [facility] Last Admin: 07/24/16 09:48 Dose: 5 mg Pantoprazole Sodium (Protonix Ec Tab) 20 mg PO DAILY [facility] Last Admin: 07/24/16 09:48 Dose: 20 mg - Labs Labs: PT 11.4 Seconds (9.9-11.8) 07/23/16 02:44 INR 1.06 (0.93-1.08) 07/23/16 02:44 APTT 30.2 Seconds (23.7-30.8) 07/23/16 02:44 - Constitutional Appears: Non-toxic, No Acute Distress - Head Exam Head Exam: NORMAL INSPECTION - ENT Exam ENT Exam: Mucous Membranes Moist - Neck Exam Neck Exam: absent: Lymphadenopathy, Meningismus - Respiratory Exam Respiratory Exam: Decreased Breath Sounds Additional comments: right anterior chest wall port site clean and non-tender - Cardiovascular Exam Cardiovascular Exam: +S1, +S2 - GI/Abdominal Exam GI & Abdominal Exam: Soft. absent: Tenderness Assessment and Plan - Assessment and Plan (Free Text) Plan: Assessment Fever R/O sepsis - so far no source identified history of UTI with E. 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
[2016-07-24] MEDS: RAPAFLO 8MG PO SCH (21:45)
[2016-07-25 06:45] LABS: ADD MANUAL DIFF? NO
[2016-07-25 06:51] LABS: BASO # 0.04 K/mm3 (0.0-2.0); BASO % 1.1 % (0.0-3.0); EOS # 0.3 (0.0-0.7); EOS % 7.1 % (1.5-5.0); GRAN # 1.99 (1.4-6.5); GRAN % 52.6 % (50.0-68.0); HEMATOCRIT 30.5 % (42.0-52.0); LYMPH # 0.9 (1.2-3.4); LYMPH % 24.1 % (22.0-35.0); MEAN CORPUSCULAR HEMOGLOBIN 25.8 pg (25.0-35.0); MEAN CORPUSCULAR HGB CONC 33.1 g/dl (31.0-37.0); MEAN PLATELET VOLUME 9.4 fl (7.0-11.0); MONO # 0.6 (0.1-0.6); MONO % 15.1 % (1.0-6.0); PLATELET COUNT 146 10^3/uL (120.0-450.0); RED CELL DISTRIBUTION WIDTH 18.5 % (11.5-14.5); WHITE BLOOD COUNT 3.8 10^3/ul (4.5-11.0)
--- NOTE | 2016-07-25 08:02 | CON ---
DATE: 07/24/2016 REASON FOR CONSULTATION: Coronary artery disease, lymphoma, recurrent fever, rule out endocarditis. BRIEF CLINICAL HISTORY: This is a 76-year-old male with history of mantle cell lymphoma on chemother apy, coronary artery disease, benign prostatic hypertrophy, history of urinary tract infection, histo ry of candidemia, history of pneumonia. Recently admitted with fever. Discharge home. 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 They checked t he temperature; it was found to be 101 orally so patient brought here. The patient denies any fever now. Denies any chest pain, denies any palpitation. Past medical history significant for mantle gen l lymphoma; coronary artery disease, status post stent; hypertension, hyperlipidemia; history of a st ent in 2011, status post restenosis, status post rotablation and transluminal angioplasty with drug-e luting stent 09/07/2013. Last stress test ____ was negative. PREVIOUS CARDIAC WORKUP: As follows: The patient had a echocardiography on 06/09/2016 that showed n ormal chamber size, ejection fraction 55-60%, mild to moderate valvular aortic stenosis, trace mitral regurgitation, mild to moderate tricuspid regurg, RV systolic pressure of 45. No vegetation or thro mbus noted. When compared from the study 04/12/2016, no significant change noted. This echo was 09/2016. PAST MEDICAL HISTORY: As mentioned, history of multiple stents as above. The first stent 2011, the patient had in-stent restenosis, underwent rotablation at [facility]. Last stress test ____. Last echo as mentioned 06/2016. PERSONAL HISTORY: Denies smoking. Denies any history of alcohol abuse. CURRENT MEDICATIONS: The patient has been taking 81 mg of Ecotrin, Xopenex, metoprolol, Protonix 40 mg, Ranexa and chemotherapy. ALLERGIES: AZITHROMYCIN, ERYTHROMYCIN, PENICILLIN, CEPHALEXIN, GABAPENTIN, LYRICA, SULFONAMIDE, AND NITROGLYCERIN PASTE. REVIEW OF SYSTEMS: As per HPI. PHYSICAL EXAMINATION: VITAL SIGNS: Temperature afebrile, heart rate 80, blood pressure 120/80. HEENT: PERRLA. Extraocular muscles intact. NECK: Supple. No carotid bruits. No thyromegaly. CHEST: Clear to auscultation. HEART: S1, S2 regular. ABDOMEN: Soft. EXTREMITIES: Clubbing and cyanosis negative. BLOOD WORKUP: As follows: WBC 4.3, hemoglobin 11, hematocrit 35.4, platelet count 152. Chemistry s hows sodium 135, potassium 4, chloride 90, carbon dioxide ____, anion gap of 4, BUN 18, creatinine 1. 1. IMPRESSION: Fever. So far the patient becomes febrile. Rule out sepsis, rule out endocarditis. S o far, blood cultures are negative. Repeat blood culture tomorrow. If the blood culture is positive , consider DENY or removal of the Port-A-Cath. Discussed with ____. Discussed with you. History of coronary artery disease, history of mantle cell lymphoma, history of chemotherapy, history of cor onary artery disease, history of recurrent pneumonia. Will follow with you. Previous echo dated 2016 is essentially negative. Thanh Hill MD cc: [id number] TT: 07/24/2016 18:25:16 Confirmation # [id number] Dictation # [id number] mn
[2016-07-25] MEDS: Levalbuterol 0.63 MG/3 ML Inhal Soln UD IH SCH ×3 (08:10→19:20)
--- NOTE | 2016-07-25 08:18 | PN ---
DATE: 07/24/2016 LOCATION: The patient is in room 365, bed 2. SUBJECTIVE: The patient is comfortable in bed, is now afebrile, denies any history of nausea, vomiting, diarrhea, no history of pain. Reports sight no shortness of breath, cough, wheezing, headaches. OBJECTIVE VITAL SIGNS: Stable. T-max is 98.4, pulse is 75, respirations 20, blood pressure is 113/65, pulse ox is 97% on room air. MEDICATIONS: The patient's medications were reviewed. He is on Tylenol 650 mg p.o. q. 4 hours p.r.n., aspirin 81 mg daily, Lipitor 20 mg daily. He is on Plavix 75 mg daily. He is on Flomax 1 daily. He is on Imbruvica 4 capsules a day. Each capsule is 140 mg. He is on meropenem 1 gram IV q. 12 hours. He is on Xopenex 0.63 mg t.i.d. p.r.n., mag oxide 400 mg daily, metoprolol 25 mg daily , metoprolol 12.5 mg at bedtime. 10 mg p.o. daily. He is on Zofran 4 mg IV q. 6 hours p.r.n. He is on Ditropan 5 mg p.o. daily and Protonix 20 mg p.o. daily. LABORATORY DATA: From today were reviewed. PT is 11.6 with an INR of 1.06. Rest of the labs are unremarkable at this time. PHYSICAL EXAMINATION: HEENT: Reveals head to be normocephalic, atraumatic. Temporal muscle wasting noted. Examination of the oropharynx reveals no oropharyngeal lesions. The patient is edentulous. NECK: Supple. There is no adenopathy. No jugular venous distention noted. LUNGS: Clear to percussion and auscultation. CARDIOVASCULAR: Reveals S1 and S2 to be normal. No gallop or murmur is heard. ABDOMEN: Soft, nontender. Bowel sounds are present. No rebound, rigidity or guarding is noted. NEUROLOGIC: Higher functions are normal. No focal deficits are noted. EXTREMITIES: Examination of lower extremities reveals no cyanosis, clubbing or edema. ASSESSMENT NOTES AND PLAN: The patient had come into the ER with a temperature of 102, rule out sepsis. So far, no source has been identified. History of UTI with E. coli,infection, left ankle and skin scar with infection, history of bilateral lower lobe healthcare-associated pneumonia, clinically improved status post treatment, history of methicillin-sensitive Staphylococcus aureus and Pseudomonas tracheobronchitis, history of Shagufta fungemia, probably source in the port, status post port removal with a new port in the right chest wall. The patient has stage IV mantle cell lymphoma. Chemotherapy with Imbruvica and Rituxan given monthly. He has history of coronary artery disease, benign prostatic hyperplasia. 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 PLAN: The patient is currently on vancomycin and Merrem. Repeating blood cultures, are waiting for the results, one from the port and one peripherally. The patient has also had urine cultures, chest x-ray, which is within normal limits at this time. Continue to monitor the patient clinically and make a decision of which direction to proceed. Will speak with ID as well. Labs for a.m. have been requested. Alie Myers MD cc: [id number] TT: 07/24/2016 23:16:00 Confirmation # [id number] Dictation # [id number] marcela PETE
[2016-07-25 08:45] LABS: ALKALINE PHOSPHATASE 92 U/L (38-133); ALT/SGPT 28 U/L (7-56); AST/SGOT 24 U/L (15-59); BILIRUBIN,TOTAL 0.9 mg/dL (0.2-1.3); BLOOD UREA NITROGEN 14 mg/dL (7-21); CALCIUM 8.3 mg/dL (8.4-10.5); CARBON DIOXIDE 25 mmol/L (21-33); CHLORIDE 102 mmol/L (98-107); CHOLESTEROL 133 mg/dL (130-200); GFR AFRICAN-AMERICAN > 60; GLUCOSE,RANDOM 122 mg/dL (70-110); MAGNESIUM 1.9 mg/dL (1.7-2.2); PHOSPHOROUS 2.7 mg/dL (2.5-4.5); POTASSIUM 4.1 mmol/L (3.6-5.0); SODIUM 132 mmol/L (132-148); TOTAL PROTEIN 5.7 g/dL (5.8-8.3)
[2016-07-25] MEDS: Meropenem 1g/NS 100mL IVPB 1 GM/100 ML PIGGYBACK IVPB SCH (09:49)
[2016-07-25] MEDS: Pantoprazole 20 mg EC Tab PO SCH (09:50)
[2016-07-25] MEDS: Magnesium Oxide 400 mg Tab UD PO SCH (09:50)
[2016-07-25] MEDS: CALCIUM 600MG PO SCH (09:55)
[2016-07-25] MEDS: RANEXA 500MG PO SCH ×2 (09:55→21:45)
--- NOTE | 2016-07-25 12:10 | PN ---
DATE: 07/24/2016 The patient in room 365, bed #2. REASON FOR CONSULTATION: Coronary artery disease, lymphoma, recurrent fevers, rule out endocarditis. HISTORY OF PRESENT ILLNESS: A 76-year-old male with history of mantle cell lymphoma, on chemotherapy ; coronary artery disease, benign prostatic hypertrophy, history of urinary tract infection, history of candidemia in the past, history of pneumonia. The patient admitted with fever and chills and foun d to have a temperature of 101. The patient known to have hypertension, hyperlipidemia; coronary art asim disease, stent was inserted in 2011, status post restenosis and status post rotablation and inser tion of drug-eluting stent 09/07/2013. Last stress test 07/2015 was negative. Echo 06/09/2016 was n egative for endocarditis. The patient now is feeling better. Denies any chest pain, shortness of br eath, or palpitation. PHYSICAL EXAMINATION: VITAL SIGNS: Blood pressure 121/64, respirations 18, pulse 80, temperature 98.4. HEAD: Normocephalic. EYES: Pupils are normal. Conjunctivae are slightly pale. NECK: JVP low. Carotids equal. THORAX: AP diameter normal. LUNGS: Clear. CARDIOVASCULAR: S1, S2. ABDOMEN: Soft. No tenderness, no organomegaly. Bowel sounds normal. EXTREMITIES: No clubbing, no cyanosis. LABORATORY DATA: WBC 3.8, hemoglobin 10.1, hematocrit 30.5, platelet 146. Sodium 132, potassium 4.1 , BUN 14, creatinine 0.9. AST, ALT normal. Total protein 5.7, albumin 2.8. Chest x-ray: No active disease. Blood cultures x 3 are negative. IMPRESSION: Fever, sepsis, mantle cell lymphoma; coronary artery disease, history of stent insertion , also restenosis and rotablader ablation and a drug-eluting stent insertion; mantle cell lymphoma, u nder treatment with chemotherapy; history of recurrent pneumonia, hypertension, hyperlipidemia. PLAN: Aspirin 81 mg p.o. daily, metoprolol 25 mg p.o. daily in the morning and 12.5 mg p.o. in the e vening, Plavix 75 mg daily, aspirin 81 mg daily, Protonix 20 mg p.o. daily, ____ 20 daily. Will foll ow with you. Thanh Holbrook MD cc: [id number] TT: 07/25/2016 12:09:25 Confirmation # [id number] Dictation # [id number] mn
[2016-07-25] MEDS ORDERED: Home Med 1 UNIT PO SCH (14:45)
[2016-07-25] MEDS: IMBRUVICA 140 MG PO SCH (15:32)
--- NOTE | 2016-07-25 20:23 | CP.PCM.PN ---
Subjective - Date & Time of Evaluation Date of Evaluation: 07/25/16 Time of Evaluation: 12:35 - Subjective Subjective: Comfortable in bed, no fevers, no diarrhea, no cough, no leg pain, no diarrhea, no dysuria. Objective - Vital Signs/Intake and Output Vital Signs (last 24 hours): Temp Pulse Resp BP Pulse Ox 98.5 F 72 20 120/71 98 07/25/16 17:25 07/25/16 16:00 07/25/16 16:00 07/25/16 16:00 07/25/16 16:00 - Medications Medications: Current Medications Acetaminophen (Tylenol 325mg Tab) 650 mg PO Q4H PRN PRN Reason: Fever >100.5 F Aspirin (Aspirin Chewable) 81 mg PO DAILY [facility] Last Admin: 07/25/16 09:50 Dose: 81 mg Atorvastatin Calcium (Lipitor) 20 mg PO DIN [facility] Last Admin: 07/25/16 17:21 Dose: 20 mg Clopidogrel Bisulfate (Plavix) 75 mg PO DAILY [facility] Last Admin: 07/25/16 09:50 Dose: 75 mg Home Med (Home Med) 1 unit PO Q12 [facility] Last Admin: 07/25/16 09:55 Dose: 1 unit Home Med (Home Med) 1 unit PO HS [facility] Last Admin: 07/24/16 21:45 Dose: 1 unit Home Med (Home Med) 1 unit PO DAILY [facility] Last Admin: 07/25/16 09:55 Dose: 1 unit Home Med (Home Med) 4 unit PO DAILY [facility] Last Admin: 07/25/16 15:32 Dose: 4 unit Levalbuterol HCl (Xopenex) 0.63 mg IH TIDRESP [facility] Last Admin: 07/25/16 19:20 Dose: 0.63 mg Magnesium Oxide (Mag-Ox) 400 mg PO DAILY [facility] Last Admin: 07/25/16 09:50 Dose: 400 mg Metoprolol Tartrate (Lopressor) 25 mg PO DAILY [facility] Last Admin: 07/25/16 09:54 Dose: 25 mg Metoprolol Tartrate (Lopressor) 12.5 mg PO HS [facility] Last Admin: 07/24/16 21:44 Dose: 12.5 mg Nortriptyline HCl (Pamelor) 10 mg PO DAILY [facility] Last Admin: 07/25/16 09:50 Dose: 10 mg Nystatin/Triamcinolone Acetonide (Nystatin/Triamcinolone Cream) 0 ea TOP BID [facility] Ondansetron HCl (Zofran Inj) 4 mg IVP Q6H PRN PRN Reason: Nausea/Vomiting Last Admin: 07/25/16 15:06 Dose: 4 mg Oxybutynin Chloride (Ditropan Tab) 5 mg PO DAILY [facility] Last Admin: 07/25/16 09:50 Dose: 5 mg Pantoprazole Sodium (Protonix Ec Tab) 20 mg PO DAILY [facility] Last Admin: 07/25/16 09:50 Dose: 20 mg - Labs Labs: 07/25/16 06:30 07/25/16 06:30 PT 11.4 Seconds (9.9-11.8) 07/23/16 02:44 INR 1.06 (0.93-1.08) 07/23/16 02:44 APTT 30.2 Seconds (23.7-30.8) 07/23/16 02:44 - Constitutional Appears: Non-toxic, No Acute Distress - Head Exam Head Exam: NORMAL INSPECTION - ENT Exam ENT Exam: Mucous Membranes Moist - Neck Exam Neck Exam: absent: Lymphadenopathy, Meningismus - Respiratory Exam Respiratory Exam: Decreased Breath Sounds Additional comments: right anterior chest wall port-a-cath site clean and non-tender - Cardiovascular Exam Cardiovascular Exam: +S1, +S2 - GI/Abdominal Exam GI & Abdominal Exam: Soft. absent: Tenderness Assessment and Plan - Assessment and Plan (Free Text) Plan: Assessment Fever, consider secondary to medications for the patient's mantle cell lymphoma ; no evidence of sepsis identified history of UTI with E. 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 Myers
[2016-07-25] MEDS: RAPAFLO 8MG PO SCH (21:46)
[2016-07-26] MEDS: Levalbuterol 0.63 MG/3 ML Inhal Soln UD IH SCH ×2 (07:51→13:36)
--- NOTE | 2016-07-26 08:31 | PN ---
DATE: 07/25/2016 LOCATION: The patient is in room 365, bed 2. PROBLEMS: This is a 76-year-old male for origin who has a diagnosis of mantle cell lymphoma st age IV, currently on Imbruvica 4 capsules a day along with monthly Rituxan. History of hypogammaglob ulinemia, coronary artery disease. Was admitted to the hospital at the Emergency Room with fevers up to 102 degrees. The patient has been promptly started on antibiotics, initially on vancomycin and Merrem, then continued on Merrem for the last 2 days. SUBJECTIVE: The patient is comfortable in bed. Denies any fever, diarrhea, cough, leg pain, or dysu faina. PHYSICAL EXAMINATION: VITAL SIGNS: Stable. T-max is 98.4, pulse is 72, respirations 20, blood pressure is 102/71, pulse o x is 98% on room air. HEENT: Reveals head to be normocephalic, atraumatic. Conjunctivae pale. Sclerae are anicteric. Pu pils are equally reactive to light and accommodation. Examination of the oropharynx reveals the tye ent to be edentulous. Nose mucosal lesions are seen. Tongue is moist. NECK: Supple. There is no adenopathy. No jugular venous distention noted. LUNGS: Clear to percussion and auscultation. The patient has an anterior wall port on the right micheal st wall, which appears to be clean and nontender. HEART: Reveals PMI to be in the 5th intercostal space inside the midclavicular line. S1 and S2 are normal. No gallop or murmur is heard. ABDOMEN: Soft, mildly distended. Liver and spleen not palpable. guarding is noted. EXTREMITIES: Reveal no cyanosis, clubbing or edema. NEUROLOGIC: Reveals no focal deficits. LABORATORY DATA: From today were also reviewed. White count 3.8 with a hemoglobin of 10.1, hematocr it 30.5, platelet count 146,000. Sodium is 132, is 4. , chloride 102, CO2 25, BUN 14, crea tinine 0.9, blood sugar 122. PT 11.4 with an INR 1.06, APTT is 30.2. MEDICATIONS: The patient's medications were reviewed and they are unchanged at this time. He is on one antibiotic, Merrem, which has been discontinued as of today by ID specialist. ASSESSMENT NOTES AND PLAN: This patient has multiple admissions recently over the last several weeks for fever, for which he has had exhaustive testing including blood cultures, workup for organi sms, workup with an echocardiogram and all of these tests have been negative. He was also treated fo r Escherichia coli of the urine was comparable colony count was less than 50,000, but, we thought that could be a source as well and now he is readmitted and all the cultures are still negat jose. Our feeling at this time is that the patient may have fevers related to either the Imbruvica or the Rituxan. Estroven, he gets a fever after the medicine is given. This needs to be further investigated. It definitely appears to be related to the medication he gets rather than underlying infection. The patient is going to be started back on Imbruvica, which was on hold. He is going to get 1 dose tonight. He is to get Zofran half hour before it and we will check his blood work again i n a.m. More importantly, monitor him for any possibility of fever as a result of taking the Imbruvic a. The other culprit could be Rituxan as well, which he had last week on . I have explained all these findings to the patient and the in great detail and waiting for a call from , who has also been treating him, from [facility] and will try to get some feedback as to how best to manage him as far as further ongoing treatment is concerned. Last PET CT that was done showed the patient had an excellent response to the initial course of therapy. Alie Myers MD cc: [id number] TT: 07/26/2016 00:01:42 Confirmation # [id number] Dictation # [id number] marcela
[2016-07-26] MEDS: Pantoprazole 20 mg EC Tab PO SCH (09:14)
[2016-07-26] MEDS: CALCIUM 600MG PO SCH (09:15)
[2016-07-26] MEDS: RANEXA 500MG PO SCH (09:16)
[2016-07-26] MEDS: Magnesium Oxide 400 mg Tab UD PO SCH (09:17)
[2016-07-26 09:26] VITALS: BP 114/64; PULSE 69
[2016-07-26 09:52] VITALS: RESP 18; TEMP 98.7; O2SAT 96
[2016-07-26] MEDS ORDERED: IMBRUVICA 140 MG PO SCH (10:00)
[2016-07-26] MEDS ORDERED: Nystatin-Triamcinolone Cream(30 gm) TOP SCH (10:00)
[2016-07-26] MEDS: IMBRUVICA 140 MG PO SCH (10:09)
--- NOTE | 2016-07-26 13:13 | PN ---
DATE: 07/26/2016 The patient is in room 365, bed #2. REASON FOR CONSULTATION AND FOLLOWUP: Coronary artery disease, lymphoma, recurrent fevers, rule out endocarditis. HISTORY OF PRESENT ILLNESS: A 76-year-old male with history of mantle cell lymphoma on chemotherapy, coronary artery disease, benign prostatic hypertrophy, history of urinary tract infection, history o f candidemia in the past, history of pneumonia. The patient admitted with fever and chills with a fe bob of 101 at home. The patient denies any chest pain, shortness of breath, palpitation. The patien t has history of coronary artery disease with a drug-eluting stent insertion in 2011, status post res tenosis and status post rotablation and insertion of new drug-eluting stent on 09/07/2013. Last stress test was in 07/2015, which was negative. Echo 06/09/2016 was negative for endocarditis. The patient i s feeling better, lying flat in bed without chest pain, shortness of breath, palpitation. PHYSICAL EXAMINATION: VITAL SIGNS: Blood pressure 114/64, respirations 18, pulse 69, temperature 98.7. HEAD: Normocephalic. EYES: Pupils normal. Conjunctivae are normal. NOSE AND THROAT: Normal. NECK: JVP low. Carotids equal. THORAX: AP diameter normal. LUNGS: No rales. CARDIOVASCULAR: S1, S2, soft systolic murmur, no rub. ABDOMEN: Soft, nontender, no organomegaly. EXTREMITIES: No clubbing, no cyanosis. LABORATORY DATA: Shows WBC 3.8, hemoglobin 10.1, hematocrit 30.5, and platelet count is 146. Sodium 132, potassium 4.1, BUN 14, creatinine 0.9. AST, ALT normal. Total protein 5.7, albumin 2.8. TSH 1.34. Blood culture and urine culture is negative. DIAGNOSES: Fever, probably related to drug reaction of chemotherapy because patient's blood and urin e cultures are all negative. The patient seen by infectious disease. Coronary artery disease, histo ry of stent insertion with restenosis and rotablation and put in a new drug-eluting stent, mantle gen l lymphoma, history of recurrent pneumonia, hypertension, hyperlipidemia, anemia. PLAN: The patient is on aspirin 81 mg daily, Lipitor 20 mg daily, metoprolol 25 mg daily in the morn ing, 12.5 mg metoprolol in the evening, mag oxide 400 mg p.o. daily, Pamelor 10 mg p.o. daily, Plavix 75 mg p.o. daily, Protonix 20 mg p.o. daily. Will continue present therapy and we will follow with you. No clinical evidence of endocarditis at present. Thanh Holbrook MD cc: [id number] TT: 07/26/2016 13:13:09 Confirmation # [id number] Dictation # [id number] rn
== END 2016-07-26 13:54 | disposition home or self-care (01) | DRG 864 ==
LOC: ED 02:18 → ERH 05:18 → 3RNO 06:21
PROVIDERS: ADMIT Student in an Organized Health Care Education/Training Program; ATTEND Student in an Organized Health Care Education/Training Program
DX: R50.2 Drug induced fever (principal); C83.10 Mantle cell lymphoma, unspecified site; D80.1 Nonfamilial hypogammaglobulinemia; I11.0 Hypertensive heart disease with heart failure; I50.9 Heart failure, unspecified; I08.3 Combined rheumatic disorders of mitral, aortic and tricuspid valves; T45.1X5A Adverse effect of antineoplastic and immunosuppressive drugs, initial encounter; N40.0 Benign prostatic hyperplasia without lower urinary tract symptoms; E11.9 Type 2 diabetes mellitus without complications; H91.93 Unspecified hearing loss, bilateral; I25.10 Atherosclerotic heart disease of native coronary artery without angina pectoris; E78.5 Hyperlipidemia, unspecified; Z95.5 Presence of coronary angioplasty implant and graft; Z79.82 Long term (current) use of aspirin; Z88.0 Allergy status to penicillin; Z88.8 Allergy status to other drugs, medicaments and biological substances; Z88.2 Allergy status to sulfonamides; Z88.1 Allergy status to other antibiotic agents; Z87.440 Personal history of urinary (tract) infections; Z87.01 Personal history of pneumonia (recurrent); Z97.4 Presence of external hearing-aid; Z86.73 Personal history of transient ischemic attack (TIA), and cerebral infarction without residual deficits

== ENCOUNTER 2016-07-28 05:37 | Observation (INO) | payer MEDICARE, OTHER ==
[2016-07-28 05:37] VITALS: BMI 27.4
[2016-07-28] MEDS ORDERED: Sodium Chloride 0.9% 500 ML IV STA (05:45)
[2016-07-28] MEDS ORDERED: Vancomycin 1gm in NS 250ml 1 GM/250 ML BAG IVPB STA (05:45)
--- NOTE | 2016-07-28 06:28 | ED PDOC ---
Arrival/HPI - General Chief Complaint: Fever Time Seen by Provider: 07/28/16 05:43 - History of Present Illness Narrative History of Present Illness (Text): 07/28/16 06:25 76-year-old male with a history of mantle cell lymphoma, diabetes, BPH, CHF, hypertension, presents to the emergency department with his stating that he has had an episode of fever overnight of 102. Patient denies any abdominal pain, denies any productive cough, denies head or neck pain. Patient is complaining of generalized weakness. Past Medical History - Provider Review Nursing Documentation Reviewed: Yes - Past History Past History: Unable to Obtain - Infectious Disease Hx of Infectious Diseases: None - Tetanus Immunization Tetanus Immunization: Unknown - Cardiac Hx Cardiac Disorders: Yes (cad, angioplasty) Hx Hypertension: Yes - Pulmonary Hx Asthma: Yes Hx Pneumonia: No - Neurological Hx Transient Ischemic Attacks (TIA): Yes - HEENT Hx HEENT Disorder: Yes (wears eyeglasses) Hx Deafness: Yes Other/Comment: left ear sx for multiple infections has hearing loss uses a hearing aid, uses a hearing aid in right ear also - Renal Hx Renal Failure: No - Endocrine/Metabolic Hx Diabetes Mellitus Type 2: Yes - Hematological/Oncological Hx Blood Disorders: No Hx Anemia: Yes (blood transfusion) Hx Cancer: Yes (active mantle cell lymphoma) Hx Chemotherapy: Yes - Integumentary Other/Comment: healed b/l groin fungal rash,multiple bruises to left leg, bruise to left side of face from recent fall, patient feels lump under skin top inner left buttock, small eccymotic area to left fa - Musculoskeletal/Rheumatological Hx Falls: Yes (recent) - Gastrointestinal Hx Gastrointestinal Disorders: No - Genitourinary/Gynecological Hx Genitourinary Disorders: Yes (H/O URINARY FREQUENCY,DYSURIA,UTI) Hx Prostate Problems: Yes (bph/prostectomy/enlarged prostate) Other/Comment: c/o urinary urgency - Psychiatric Hx Psychophysiologic Disorder: No Hx Anxiety: Yes Hx Emotional Abuse: No Hx Physical Abuse: No Hx Substance Use: No - Past Surgical History Past Surgical History: Unable to Obtain - Surgical History Hx Cardiac Catheterization: Yes Hx Coronary Stent: Yes Hx Orthopedic Surgery: Yes (r thumb) Other/Comment: head sx post injury, video assisted thorascopy with right pulmonary nodule dissection at [facility], left lung bx, r cw pac - Anesthesia Hx Anesthesia: Yes Hx Anesthesia Reactions: No Hx Malignant Hyperthermia: No - Suicidal Assessment Feels Threatened In Home Enviroment: No Family/Social History Family/Social History: Unknown Family HX Smoking Status: Never Smoked Hx Alcohol Use: No Hx Substance Use: No Hx Substance Use Treatment: No Allergies/Home Meds Allergies/Adverse Reactions: Allergies azithromycin Allergy (Severe, Verified 06/29/16 09:41) ANGIOEDEMA erythromycin base Allergy (Severe, Verified 06/29/16 09:41) ANGIOEDEMA Penicillins Allergy (Severe, Verified 06/29/16 09:41) ANAPHYLAXIS cephalexin monohydrate [From Keflex] Allergy (Intermediate, Verified 06/29/16 09 :41) RASH gabapentin Allergy (Intermediate, Verified 06/29/16 09:41) RASH pregabalin Allergy (Intermediate, Verified 06/29/16 09:41) RASH Sulfa (Sulfonamide Antibiotics) Allergy (Intermediate, Verified 06/29/16 09:41) RASH nitro paste Allergy (Intermediate, Uncoded 06/29/16 09:41) DIZZINESS/HYPOTENSION CAUSE HYPOTENSION Home Medications: Home Meds Medication Instructions Recorded Confirmed Aspirin [Aspirin EC] 81 mg PO DAILY 09/10/15 07/28/16 Oxybutynin Chloride 5 mg PO DAILY 09/10/15 07/28/16 Levalbuterol [Xopenex] 1.25 mg IH TID 01/31/16 07/28/16 Acetaminophen [Tylenol (Renal)] 650 mg PO Q6 PRN 04/21/16 07/28/16 Metoprolol Tartrate [Lopressor] 25 mg PO HS 04/21/16 07/28/16 Pantoprazole [Protonix EC Tab] 40 mg PO DAILY 04/21/16 07/28/16 Calcium Carbonate/Vitamin D3 600 mg PO DAILY 06/03/16 07/28/16 [Caltrate 600 + D Soft Chew Tab] Magnesium Oxide [Magnesium] 400 mg PO HS 06/03/16 07/28/16 Nortriptyline HCl [Pamelor] 10 mg PO DAILY 06/03/16 07/28/16 Ranolazine [Ranexa] 500 mg PO BID 06/03/16 07/28/16 Silodosin [Rapaflo] 8 mg PO HS 06/03/16 07/28/16 Physical Exam - Physical Exam Narrative Physical Exam (Text): 07/28/16 06:28 - Review of Systems Constitutional: fever. absent: Fatigue, Weight Change Eyes: Normal ENT: denies sore throat, denies tristhmus Respiratory: Normal. absent: SOB, Cough, Sputum Cardiovascular: absent: Chest Pain, Palpitations, Syncope Gastrointestinal: Normal. absent: Abdominal Pain, Diarrhea, Nausea, Vomiting Genitourinary: Normal. absent: Dysuria, Frequency, Hematuria, vaginal bleeding Musculoskeletal: Normal. absent: Arthralgias, Back Pain, Neck Pain Skin: no rashes, no erythema Neurological: absent: Focal Weakness Endocrine: Normal Hemo/Lymphatic: Normal Psychiatric: No suicidal or homicidal ideations Physical exam Patient appears age appropriate in no distress, speaking full sentences without difficulty - Systems Exam Head: Present: Atraumatic, Normocephalic Pupils: Present: PERRL Extroacular Muscles: Present: EOMI Conjunctiva: Present: Normal Neck: Present: Normal Range of Motion. No: MIDLINE TENDERNESS, Paraspinal Tenderness Respiratory/Chest: Present: Clear to Auscultation, Good Air Exchange. No: Respiratory Distress, Accessory Muscle Use, Tachypneic Cardiovascular: Present: Regular Rate and Rhythm, Normal S1, S2, Peripheal Pulses Present. No: Murmurs Abdomen: Present: Normal Bowel Sounds. No: Tenderness, Distention, Peritoneal Signs, Rebound, Guarding Back: Present: Normal Inspection. No: Midline Tenderness, Paraspinal Tenderness Upper Extremity: Present: Normal Inspection. No: Cyanosis, Edema Lower Extremity: Present: Normal Inspection. No: Edema Neurological: Present: GCS=15, Speech Normal, cranial nerves II through XII fully intact with no cerebellar abnormality, neurosensory fully intact. No focal neurological deficits. Skin: Present: Warm, Dry, Normal Color. No: Rashes Lymphatic: Present: OX3, NI, NC Psychiatric: Present: Alert, Oriented x 3, Normal Insight, Normal Concentration Vital Signs Reviewed: Yes Vital Signs Temp Pulse Resp BP Pulse Ox 07/28/16 06:50 100.6 F H 07/28/16 05:50 100.6 F H 96 H 20 126/60 95 Temperature: Febrile Blood Pressure: Normal Pulse: Regular Respiratory Rate: Normal Appearance: Positive for: Well-Appearing, Non-Toxic, Comfortable. No: Ill- Appearing Pain Distress: None Mental Status: Positive for: Alert and Oriented X 3 Medical Decision Making ED Course and Treatment: Patient's previous records reviewed, patient was discharged from the hospital a few days ago, after being worked up for fever. 07/28/16 06:29 76-year-old male with a history of cancer, has been worked, with fever of 102 at home. Patient is febrile in the emergency department, has no other acute findings on physical examination. Differential diagnoses include limited to: Drug-induced febrile reaction, neutropenic fever, sepsis, pneumonia, UTI. Chest xray interpreted by ED physician shows no pneumothorax, no cardiomegaly, no infiltrates 07/28/16 07:00 pt signed out to Dr. Mazariegos in stable condition - Lab Interpretations Lab Results: 07/28/16 06:15 Lab Results 07/28/16 06:15: Sodium 133, Chloride 100, Potassium 4.0, Carbon Dioxide 27, Anion Gap 10, BUN 21, Creatinine 1.1, Est GFR ( Amer) > 60, Est GFR (Non- Af Amer) > 60, Random Glucose 149 H, Calcium 8.5, Total Bilirubin 0.9, AST 44, ALT 32, Alkaline Phosphatase 108, Total Protein 6.1, Albumin 3.2, Globulin 2.9, Albumin/Globulin Ratio 1.1 07/28/16 06:15: pO2 66 H, VBG pH 7.39, VBG pCO2 44.0, VBG HCO3 26.6, VBG Total CO2 28.0, VBG O2 Sat (Calc) 95.6 H, VBG Base Excess 1.4, VBG Potassium 4.1, Sodium 133.0, Chloride 104.0, Glucose 160 H, Lactate 1.5, FiO2 21.0, Venous Blood Potassium 4.1 - RAD Interpretation Radiology Orders: 07/28/16 05:44 CHEST PORTABLE [RAD] Stat - Medication Orders Current Medication Orders: Vancomycin HCl (Vancomycin 1gm) 1 gm in 250 mls @ 133.333 mls/hr IVPB STAT STA PRN Reason: Protocol Stop: 07/28/16 07:37 Last Admin: 07/28/16 06:49 Dose: 133.333 mls/hr Discontinued Medications Acetaminophen (Tylenol 325mg Tab) 975 mg PO STAT STA Stop: 07/28/16 06:08 Last Admin: 07/28/16 06:50 Dose: 975 mg Sodium Chloride (Sodium Chloride 0.9%) 500 mls @ 1,000 mls/hr IV .Q30M STA Stop: 07/28/16 06:14 Last Admin: 07/28/16 06:50 Dose: 1,000 mls/hr Disposition/Present on Arrival - Present on Arrival Any Indicators Present on Arrival: No History of DVT/PE: No History of Uncontrolled Diabetes: No Urinary Catheter: No History of Decub. Ulcer: No History Surgical Site Infection Following: None - Disposition Have Diagnosis and Disposition been Completed?: Yes Diagnosis: Fever Disposition: HOSPITALIZED Disposition Time: 07:00 Patient Plan: Admission Condition: FAIR
[2016-07-28 06:39] LABS: ADD MANUAL DIFF? NO
[2016-07-28 06:43] LABS: VENOUS BLOOD GAS BASE EXCESS 1.4 mmol/L (0.0-2.0); VENOUS BLOOD PH 7.39 (7.32-7.43)
[2016-07-28 06:52] LABS: ALB/GLOB RATIO 1.1 (1.1-1.8); ALKALINE PHOSPHATASE 108 U/L (38-133); ALT/SGPT 32 U/L (7-56); AST/SGOT 44 U/L (15-59); BILIRUBIN,TOTAL 0.9 mg/dL (0.2-1.3); BLOOD UREA NITROGEN 21 mg/dL (7-21); CALCIUM 8.5 mg/dL (8.4-10.5); CARBON DIOXIDE 27 mmol/L (21-33); CHLORIDE 100 mmol/L (95-110); GFR AFRICAN-AMERICAN > 60; GLUCOSE,RANDOM 149 mg/dL (70-110); SODIUM 133 mmol/L (132-148); TOTAL PROTEIN 6.1 g/dL (5.8-8.3)
[2016-07-28 06:55] LABS: BASO # 0.07 K/mm3 (0.0-2.0); BASO % 1.3 % (0.0-3.0); EOS # 0.2 (0.0-0.7); EOS % 3.4 % (1.5-5.0); GRAN # 3.65 (1.4-6.5); GRAN % 68.8 % (50.0-68.0); HEMATOCRIT 29.4 % (42.0-52.0); LYMPH # 0.7 (1.2-3.4); LYMPH % 13.7 % (22.0-35.0); MEAN CORPUSCULAR HEMOGLOBIN 26.5 pg (25.0-35.0); MEAN PLATELET VOLUME 9.9 fl (7.0-11.0); MONO # 0.7 (0.1-0.6); MONO % 12.8 % (1.0-6.0); PLATELET COUNT 157 10^3/uL (120.0-450.0); RED CELL DISTRIBUTION WIDTH 18.2 % (11.5-14.5); WHITE BLOOD COUNT 5.3 10^3/ul (4.5-11.0)
[2016-07-28 07:03] LABS: INR 1.07 (0.93-1.08); PARTIAL THROMBOPLASTIN TIME 30.9 Seconds (23.7-30.8)
--- NOTE | 2016-07-28 07:22 | ED PDOC ---
Physical Exam Vital Signs Reviewed: Yes Vital Signs Temp Pulse Resp BP Pulse Ox 07/28/16 08:00 79 16 97/55 L 98 07/28/16 06:50 100.6 F H 07/28/16 05:50 100.6 F H 96 H 20 126/60 95 Temperature: Febrile Blood Pressure: Normal Pulse: Regular Respiratory Rate: Normal Appearance: Positive for: Well-Appearing, Non-Toxic, Comfortable Pain Distress: None Mental Status: Positive for: Alert and Oriented X 3 Medical Decision Making ED Course and Treatment: 07/28/16 07:00 Case signed out to me from over night by Dr. Mahoney, pending reevaluation and disposition. The patient is a 76 year old male who presented to the emergency department earlier today for evaluation of a fever of 102 overnight. On reevaluation, the patient is resting comfortably and in no acute distress. 07/28/16 08:[address] Santoyo (covering for Dr. Myers), who is aware and accepts the patient to his services. He notes to consult Infectious Disease. I have discussed the results and plan with the patient and his , who expresses understanding. Patient and given the opportunity to ask question , all questions were answered and there is agreement with the plan to be admitted to the hospital. - Lab Interpretations Lab Results: 07/28/16 06:15 07/28/16 06:15 Lab Results 07/28/16 06:15: Sodium 133, Chloride 100, Potassium 4.0, Carbon Dioxide 27, Anion Gap 10, BUN 21, Creatinine 1.1, Est GFR ( Amer) > 60, Est GFR (Non- Af Amer) > 60, Random Glucose 149 H, Calcium 8.5, Total Bilirubin 0.9, AST 44, ALT 32, Alkaline Phosphatase 108, Total Protein 6.1, Albumin 3.2, Globulin 2.9, Albumin/Globulin Ratio 1.1 07/28/16 06:15: pO2 66 H, VBG pH 7.39, VBG pCO2 44.0, VBG HCO3 26.6, VBG Total CO2 28.0, VBG O2 Sat (Calc) 95.6 H, VBG Base Excess 1.4, VBG Potassium 4.1, Sodium 133.0, Chloride 104.0, Glucose 160 H, Lactate 1.5, FiO2 21.0, Venous Blood Potassium 4.1 07/28/16 06:15: PT 11.6, INR 1.07, APTT 30.9 H 07/28/16 06:15: WBC 5.3 D, RBC 3.77, Hgb 10.0 L, Hct 29.4 L, MCV 78.0 L, MCH 26.5, MCHC 34.0, RDW 18.2 H, Plt Count 157, MPV 9.9, Gran % 68.8 H, Lymph % ( Auto) 13.7 L, [place] % (Auto) 12.8 H, Eos % (Auto) 3.4, Baso % (Auto) 1.3, Gran # 3.65, Lymph # 0.7 L, [place] # 0.7 H, Eos # 0.2, Baso # 0.07 I have reviewed the lab results: Yes - RAD Interpretation Radiology Orders: 07/28/16 05:44 CHEST PORTABLE [RAD] Stat - Medication Orders Current Medication Orders: Meropenem 1g/NS 100mL IVPB (Meropenem 1g/Ns 100ml Ivpb) 1 gm in 100 mls @ 100 mls/hr IVPB STAT STA PRN Reason: Protocol Stop: 07/28/16 09:26 Discontinued Medications Acetaminophen (Tylenol 325mg Tab) 975 mg PO STAT STA Stop: 07/28/16 06:08 Last Admin: 07/28/16 06:50 Dose: 975 mg Sodium Chloride (Sodium Chloride 0.9%) 500 mls @ 1,000 mls/hr IV .Q30M STA Stop: 07/28/16 06:14 Last Admin: 07/28/16 06:50 Dose: 1,000 mls/hr Vancomycin HCl (Vancomycin 1gm) 1 gm in 250 mls @ 133.333 mls/hr IVPB STAT STA PRN Reason: Protocol Stop: 07/28/16 07:37 Last Admin: 07/28/16 06:49 Dose: 133.333 mls/hr - Scribe Statement The provider has reviewed the documentation as recorded by the Scribe Parvez Stallings Provider Scribe Attestation: All medical record entries made by the Scribe were at my direction and personally dictated by me. I have reviewed the chart and agree that the record accurately reflects my personal performance of the history, physical exam, medical decision making, and the department course for this patient. I have also personally directed, reviewed, and agree with the discharge instructions and disposition. Disposition/Present on Arrival - Present on Arrival Any Indicators Present on Arrival: No History of DVT/PE: No History of Uncontrolled Diabetes: No Urinary Catheter: No History of Decub. Ulcer: No History Surgical Site Infection Following: None - Disposition Have Diagnosis and Disposition been Completed?: Yes Diagnosis: Fever Disposition: HOSPITALIZED Disposition Time: 08:25 Patient Problems: Current Active Problems Problem Status Onset Fever Acute Condition: FAIR
[2016-07-28] MEDS ORDERED: Meropenem 1g/NS 100mL IVPB 1 GM/100 ML PIGGYBACK IVPB STA (08:27)
--- NOTE | 2016-07-28 09:28 | RAD ---
HISTORY: cough COMPARISON: 07/23/2016 FINDINGS: LUNGS: No active pulmonary disease. PLEURA: No significant pleural effusion identified, no pneumothorax apparent. CARDIOVASCULAR: The heart is normal in size. Mild vascular congestion OSSEOUS STRUCTURES: No significant abnormalities. VISUALIZED UPPER ABDOMEN: Normal. OTHER FINDINGS: Right-sided Port-A-Cath IMPRESSION: No active disease.
[2016-07-28] MEDS: Levalbuterol 0.63 MG/3 ML Inhal Soln UD IH SCH ×2 (13:45→19:55)
[2016-07-28] MEDS ORDERED: Pneumococcal 23-Valent Vaccine IM ONE (13:59)
[2016-07-28 14:03] LABS: URINE BILIRUBIN NEGATIVE (NEGATIVE); URINE BLOOD TRACE-LYSED (NEGATIVE); URINE GLUCOSE (UA) NEGATIVE (NEGATIVE); URINE KETONE NEGATIVE (NEGATIVE); URINE LEUKOCYTE ESTERASE NEGATIVE Leu/uL (NEGATIVE); URINE PROTEIN TRACE mg/dL (<30 mg/dL); URINE UROBILINOGEN 0.2 E.U./dL (<1 E.U./dL)
[2016-07-28 14:04] LABS: URINE APPEARANCE CLEAR (CLEAR); URINE COLOR YELLOW (YELLOW)
[2016-07-28 14:15] LABS: URINE BACTERIA FEW (NEG); URINE EPITHELIAL CELLS 0 - 2 /hpf (0-5); URINE RBC 0 - 2 /hpf (0-2)
--- NOTE | 2016-07-28 14:20 | HP ---
This is patient's admission to the medical floor for observation. For Dr. Myers. CHIEF COMPLAINT: Fevers. HISTORY OF PRESENT ILLNESS: The patient is a 76-year-old male admitted via the Emergency Room for el evated temperature early today noted by his , a physician here at this hospital. Temperature not ed to be 102 with chills. The patient was brought to the Emergency Room with a temperature of 100. He is known to suffer mantle cell lymphoma and is on Imbruvica with a Port-A-Cath. He has been hospi talized multiple times in the past. One is referred to previous records, with consideration that the port may have been the source of the fevers versus the mantle cell versus the medication. At this p oint, he is admitted to observation to rule out an infectious process with Dr. Marshall, infectious cons [facility], believing that the port is not the culprit regarding his febrile problems. He is otherwise n ow resting comfortably in no acute distress. ALLERGIES: AZITHROMYCIN, ERYTHROMYCIN, PENICILLIN, KEFLEX, GABAPENTIN, SULFA, NITRO PASTE, PREGABALI N. MEDICATIONS: As per the list supplied by his include Plavix, metoprolol, Ditropan, nortriptylin e, aspirin, Ranexa, ranitidine, Xopenex, Protonix, Caltrate, Lipitor, mag oxide, Rapaflo. PAST MEDICAL HISTORY: Significant for mantle cell lymphoma, lung cancer, hyperlipidemia, ASCVD with stenting, recent port placement with recent fall with contusions to his face. FAMILY HISTORY AND SOCIAL HISTORY: Nonsmoker, nonethanolic, otherwise noncontributory. REVIEW OF SYSTEMS: Essentially negative to questioning except as above. PHYSICAL EXAMINATION: VITAL SIGNS: Temperature 98 with a 100.6 on admission, pulse 67, respirations 17, blood pressure 92/ 58, pulse ox 95%. HEENT: Unremarkable. NECK: Supple. HEART: Regular rate. LUNGS: Clear. ABDOMEN: Soft, protuberant, nontender. EXTREMITIES: No edema. SKIN: Warm, dry and clear. NEUROLOGIC: Awake, alert. LABORATORY DATA: White blood cell count of 5.3, hemoglobin 10.0, hematocrit 29.4, platelet count 157 ,000 with a chem metabolic panel completely within normal range with a nonfasting glucose 149. LDH o f 1017. INR 1.0. 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 PLAN: Will be to observe on the medical floor with consult with Dr. Callahan and Dr. Marshall, infect ious disease. Blood cultures, urine culture will be sent along with testing as per Dr. Marshall. We wi ll stop his Imbruvica with the patient's medicines to be continued as listed and discharged home shou blake he remain afebrile as per observation protocols. Ted Santoyo MD cc: [phone] TT: 07/28/2016 14:19:43 teofilo
[2016-07-28] MEDS: Meropenem 1g/NS 100mL IVPB 1 GM/100 ML PIGGYBACK IVPB SCH ×2 (14:42→22:31)
--- NOTE | 2016-07-28 15:18 | CARD ---
APPROVED REPORT EKG Measurement Heart [id number] <Conclusion> Normal sinus rhythm Nonspecific T wave abnormality Abnormal ECG
--- NOTE | 2016-07-28 16:58 | CP.PCM.CON ---
History of Present Illness - History of Present Illness History of Present Illness: 76 year old male with PMH of mantle cell lymphoma with history of chemotherapy, coronary artery disease, benign prostatic hyperplasia, dyslipidemia, history of urinary tract infection, history of candidemia, history of bilateral pneumonia was brought in again to [facility] because of fever and chills, associated with body aches and generalized weakness. The patient denies sore throat, no cough or colds, no nausea or vomiting, no rhinorrhea, no headache or dizziness, no chest pain, no SOB, no dysphagia, no abdominal pain, no diarrhea, no dysuria, no leg pain. He just received his Rituximab and another chemotherapeutic drug for his mantle cell lymphoma prior to this admission. Infectious Diseases consult is requested to further evaluate and manage. Review of Systems - Review of Systems All systems: reviewed and no additional remarkable complaints except (as per HPI ) Past Patient History - Infectious Disease Hx of Infectious Diseases: None - Tetanus Immunizations Tetanus Immunization: Unknown - Past Medical History & Family History Past Medical History?: Yes - Past Social History Smoking Status: Never Smoked - CARDIAC Hx Cardiac Disorders: Yes (cad, angioplasty) Hx Hypertension: Yes - PULMONARY Hx Asthma: Yes Hx Pneumonia: No - NEUROLOGICAL Hx Transient Ischemic Attacks (TIA): Yes - HEENT Hx HEENT Problems: Yes (wears eyeglasses) Hx Deafness: Yes Other/Comment: left ear sx for multiple infections has hearing loss uses a hearing aid, uses a hearing aid in right ear also - RENAL Hx Renal Failure: No - ENDOCRINE/METABOLIC Hx Diabetes Mellitus Type 2: Yes - HEMATOLOGICAL/ONCOLOGICAL Hx Blood Disorders: No Hx Anemia: Yes (blood transfusion) Hx Cancer: Yes (active mantle cell lymphoma) Hx Chemotherapy: Yes - INTEGUMENTARY Other/Comment: healed b/l groin fungal rash,multiple bruises to left leg, bruise to left side of face from recent fall, patient feels lump under skin top inner left buttock, small eccymotic area to left fa - MUSCULOSKELETAL/RHEUMATOLOGICAL Hx Falls: Yes (recent) - GASTROINTESTINAL Hx Gastrointestinal Disorders: No - GENITOURINARY/GYNECOLOGICAL Hx Genitourinary Disorders: Yes (H/O URINARY FREQUENCY,DYSURIA,UTI) Hx Prostate Problems: Yes (bph/prostectomy/enlarged prostate) Other/Comment: c/o urinary urgency - PSYCHIATRIC Hx Psychophysiologic Disorder: No Hx Anxiety: Yes Hx Emotional Abuse: No Hx Physical Abuse: No Hx Substance Use: No - SURGICAL HISTORY Hx Cardiac Catheterization: Yes Hx Coronary Stent: Yes Hx Orthopedic Surgery: Yes (r thumb) Other/Comment: head sx post injury, video assisted thorascopy with right pulmonary nodule dissection at [facility], left lung bx, r cw pac - ANESTHESIA Hx Anesthesia: Yes Hx Anesthesia Reactions: No Hx Malignant Hyperthermia: No Meds Allergies/Adverse Reactions: Allergies Allergy/AdvReac Type Severity Reaction Status Date / Time azithromycin Allergy Severe ANGIOEDEMA Verified 07/28/16 12:15 erythromycin base Allergy Severe ANGIOEDEMA Verified 07/28/16 12:15 Penicillins Allergy Severe ANAPHYLAXIS Verified 07/28/16 12:15 cephalexin monohydrate Allergy Intermediate RASH Verified 07/28/16 12:15 [From Keflex] gabapentin Allergy Intermediate RASH Verified 07/28/16 12:15 pregabalin Allergy Intermediate RASH Verified 07/28/16 12:15 Sulfa (Sulfonamide Allergy Intermediate RASH Verified 07/28/16 12:15 Antibiotics) nitro paste Allergy Intermediate DIZZINESS/H Uncoded 07/28/16 12:15 YPOTENSION - Medications Medications: Current Medications Meropenem 1g/NS 100mL IVPB (Meropenem 1g/Ns 100ml Ivpb) 1 gm in 100 mls @ 100 mls/hr IVPB STAT STA PRN Reason: Protocol Stop: 07/28/16 09:26 Physical Exam - Constitutional Appears: Non-toxic, No Acute Distress - Head Exam Head Exam: NORMAL INSPECTION - ENT Exam ENT Exam: Mucous Membranes Moist - Neck Exam Neck exam: Negative for: Lymphadenopathy, Meningismus - Respiratory Exam Respiratory Exam: Decreased Breath Sounds Additional comments: right anterior chest wall port-a-cath site clean and non-tender - Cardiovascular Exam Cardiovascular Exam: +S1, +S2 - GI/Abdominal Exam GI & Abdominal Exam: Soft. absent: Tenderness Results - Vital Signs Recent Vital Signs: Last Vital Signs Temp 100.6 F H 07/28/16 06:50 Pulse 79 07/28/16 08:00 Resp 16 07/28/16 08:00 BP 97/55 L 07/28/16 08:00 Pulse Ox 98 07/28/16 08:00 - Labs Result Diagrams: 07/28/16 06:15 07/28/16 06:15 Assessment & Plan - Assessment and Plan (Free Text) Plan: Assessment Systemic Inflammatory Response Syndrome, R/O sepsis source to be determined, R/ O drug-induced fever (ie. Rituximab and other chemotherapy) history of UTI with E. 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 - S /P removal; now with new right anterior chest wall port-a-cath mantle cell lymphoma on chemotherapy coronary artery disease benign prostatic hyperplasia dyslipidemia history of urinary tract infection Plan started Vancomycin and Merrem pending blood, urine cx, PCT, CXR; will also order CMV PCR, Fungitell, crypt Ag, hepatitis profile since he has been re- admitted multiple times for fever without specific source identified Will follow clinically
[2016-07-28 18:23] VITALS: O2SAT 97
[2016-07-28] MEDS: Vancomycin 1gm in NS 250ml 1 GM/250 ML BAG IVPB SCH (20:49)
[2016-07-28] MEDS ORDERED: RAPAFLO 8 MG PO SCH (22:00)
[2016-07-28] MEDS: RANEXA 500 MG PO SCH (22:31)
[2016-07-29] MEDS: Meropenem 1g/NS 100mL IVPB 1 GM/100 ML PIGGYBACK IVPB SCH ×2 (05:33→13:24)
[2016-07-29 06:29] LABS: ADD MANUAL DIFF? NO
[2016-07-29 06:39] LABS: BASO # 0.03 K/mm3 (0.0-2.0); BASO % 0.6 % (0.0-3.0); EOS # 0.2 (0.0-0.7); EOS % 3.3 % (1.5-5.0); GRAN # 3.58 (1.4-6.5); GRAN % 66.3 % (50.0-68.0); HEMATOCRIT 27.4 % (42.0-52.0); LYMPH # 1.1 (1.2-3.4); LYMPH % 20.4 % (22.0-35.0); MEAN CELL VOLUME 78.5 fL (80.0-105.0); MEAN CORPUSCULAR HEMOGLOBIN 25.5 pg (25.0-35.0); MEAN CORPUSCULAR HGB CONC 32.5 g/dl (31.0-37.0); MEAN PLATELET VOLUME 9.9 fl (7.0-11.0); MONO # 0.5 (0.1-0.6); MONO % 9.4 % (1.0-6.0); PLATELET COUNT 142 10^3/uL (120.0-450.0); RED CELL DISTRIBUTION WIDTH 18.5 % (11.5-14.5); WHITE BLOOD COUNT 5.4 10^3/ul (4.5-11.0)
[2016-07-29 06:49] LABS: ALB/GLOB RATIO 0.9 (1.1-1.8); ALKALINE PHOSPHATASE 90 U/L (38-133); ALT/SGPT 40 U/L (7-56); AST/SGOT 35 U/L (15-59); BILIRUBIN,TOTAL 0.8 mg/dL (0.2-1.3); BLOOD UREA NITROGEN 16 mg/dL (7-21); CALCIUM 8.1 mg/dL (8.4-10.5); CARBON DIOXIDE 28 mmol/L (21-33); CHLORIDE 104 mmol/L (98-107); GFR AFRICAN-AMERICAN > 60; GLUCOSE,RANDOM 126 mg/dL (70-110); POTASSIUM 4.3 mmol/L (3.6-5.0); SODIUM 134 mmol/L (132-148); TOTAL PROTEIN 5.4 g/dL (5.8-8.3)
[2016-07-29] MEDS ORDERED: Pantoprazole 20 mg EC Tab PO SCH (07:30)
[2016-07-29] MEDS: Levalbuterol 0.63 MG/3 ML Inhal Soln UD IH SCH ×2 (07:47→13:34)
[2016-07-29] MEDS: Vancomycin 1gm in NS 250ml 1 GM/250 ML BAG IVPB SCH (08:40)
[2016-07-29 08:51] VITALS: RESP 20; TEMP 98.1
[2016-07-29] MEDS: RANEXA 500 MG PO SCH (10:03)
[2016-07-29 11:12] LABS: HAV AB (IGM) Nonreactive (Nonreactive)
[2016-07-29 12:12] LABS: HEMATOCRIT 30.9 % (42.0-52.0); MEAN CORPUSCULAR HEMOGLOBIN 25.8 pg (25.0-35.0); MEAN CORPUSCULAR HGB CONC 32.7 g/dl (31.0-37.0); MEAN PLATELET VOLUME 9.1 fl (7.0-11.0); RED CELL DISTRIBUTION WIDTH 18.4 % (11.5-14.5); WHITE BLOOD COUNT 6.1 10^3/ul (4.5-11.0)
[2016-07-29] MEDS: Nystatin-Triamcinolone Cream(30 gm) TOP SCH ×2 (13:21→17:12)
--- NOTE | 2016-07-29 13:55 | PN ---
DATE: 07/29/2016 The patient is in bed in no acute distress, nontoxic. PHYSICAL EXAMINATION: VITAL SIGNS: Temperature is 98, blood pressure is 106/60, respiratory rate of 20, heart rate of 78. HEENT: Unremarkable. NECK: Supple. LUNGS: Have decreased breath sounds. HEART: Normal S1, S2. ABDOMEN: Soft, nontender. LABORATORY DATA: Reveals a white count of 6.1, hemoglobin of 10, platelets of 139. BUN of 16, creat inine of 0.8, procalcitonin 0.36. Urinalysis is noted. ASSESSMENT AND PLAN: This is a 76-year-old male with a past medical history of mantle cell lymphoma, history of chemotherapy and coronary artery disease, benign prostatic hypertrophy, dyslipidemia, his tory of urinary tract infection, history of candidemia, history of bilateral pneumonia, is admitted n with systemic inflammatory response syndrome, rule out drug-induced fevers. Will check on the cul tures and workup results. Blood cultures are reported to be negative. The patient is on meropenem a nd vancomycin. If all cultures remain negative, would discontinue the antibiotics. Marvin Callahan MD cc: [id number] TT: 07/29/2016 13:54:36 Confirmation # [id number] Dictation # [id number] teofilo
[2016-07-29] MEDS ORDERED: Nystatin 100,000 Units/gm Cream(15 gm) TOP SCH (14:00)
[2016-07-29 17:13] VITALS: BP 114/68; PULSE 71
--- NOTE | 2016-07-29 19:31 | DS ---
For Dr. Myers. 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 With this, the patient is now afebrile and after conversation with Dr. Myers and consultants and the patient's , we will dis continue his Imbruvica in the interim and he will be discharged home. The patient's blood was drawn via port earlier today with a hemoglobin of 8.9, it was a drop from 10.0 yesterday. We did a periphe ral stick and the hemoglobin today is 10.1 and not 8.9 as was previously reported. We will discharge him home today. He is otherwise without complaint. PHYSICAL EXAMINATION: VITAL SIGNS: Temperature 98.1, pulse 72, respirations 20, blood pressure 106/58, pulse ox 97%. HEENT: Unremarkable. NECK: Supple. HEART: Regular rate. LUNGS: Clear. ABDOMEN: Soft, nontender. EXTREMITIES: No edema. SKIN: Warm, dry and clear. NEUROLOGIC: Awake, alert, and oriented x 3. LABORATORY DATA: The patient's labs were done, white blood cell count of 6.1, hemoglobin 10.1, not 8 .9 originally reported, with a hematocrit of 30.9, platelet count of 139,000. Chem metabolic panel s howing calcium of 8.1. LDH of 1017, total protein 5.4. Otherwise normal chem metabolic panel. His RPR is nonreactive, hepatitis B and C testing was negative. Hepatitis A antibody reactive. Urinaly sis showed trace protein, trace of lysed blood. The patient did have a chest x-ray done in the Emergency Room yesterday, it was read as no active dis ease. His EKG was also done in the Emergency Room yesterday, it was read as normal sinus rhythm, non specific ST abnormality. ASSESSMENT: Fever of unknown origin, possibly secondary to Imbruvica, history of mantle cell lymphom a, port, history of bilateral pneumonia with Stenotrophomonas, history of zahraa fungemia, atheroscl erotic cardiovascular disease, benign prostatic hypertrophy with a dermatophytosis of the groin. PLAN: After conversation with Dr. Myers and Dr. Callahan, we will discharge patient home, stop h is Imbruvica. He will follow up in [address] Myers or earlier on present medical courtney men for this patient which Includes Plavix, metoprolol, Ditropan XL, nortriptyline, aspirin, Ranexa, ranitidine, Xopenex, Protonix, Caltrate, Lipitor, mag oxide, Rapaflo, and nystatin cream. Followup i s in one week or earlier. Ted Santoyo MD cc: [phone] TT: 07/29/2016 19:30:33 [place]
[2016-07-31 02:30] LABS: (1-3)-B-D GLUCAN <31 pg/mL
== END 2016-07-29 18:58 | disposition home or self-care (01) ==
LOC: ED 05:37 → ERH 08:40 → 3RNO 09:48
PROVIDERS: ADMIT Family Medicine; ATTEND Family Medicine
DX: R50.9 Fever, unspecified (principal); T50.995A Adverse effect of other drugs, medicaments and biological substances, initial encounter; C83.10 Mantle cell lymphoma, unspecified site; Z87.01 Personal history of pneumonia (recurrent); Z86.19 Personal history of other infectious and parasitic diseases; I25.10 Atherosclerotic heart disease of native coronary artery without angina pectoris; E11.9 Type 2 diabetes mellitus without complications; E78.5 Hyperlipidemia, unspecified; H91.93 Unspecified hearing loss, bilateral; I11.0 Hypertensive heart disease with heart failure; I50.9 Heart failure, unspecified; J45.909 Unspecified asthma, uncomplicated; Z79.82 Long term (current) use of aspirin; Z79.899 Other long term (current) drug therapy; Z85.118 Personal history of other malignant neoplasm of bronchus and lung; Z86.73 Personal history of transient ischemic attack (TIA), and cerebral infarction without residual deficits; Z87.440 Personal history of urinary (tract) infections; Z92.21 Personal history of antineoplastic chemotherapy; Z95.5 Presence of coronary angioplasty implant and graft; S80.12XA Contusion of left lower leg, initial encounter; S00.83XA Contusion of other part of head, initial encounter; Z91.81 History of falling; N40.1 Benign prostatic hyperplasia with lower urinary tract symptoms; R35.0 Frequency of micturition; F41.9 Anxiety disorder, unspecified; Z88.1 Allergy status to other antibiotic agents; Z88.0 Allergy status to penicillin; Z88.2 Allergy status to sulfonamides; Z88.8 Allergy status to other drugs, medicaments and biological substances; D64.9 Anemia, unspecified
CPT/HCPCS: 36415; 71010; 80053; 81001; 82803; 83615; 84145; 85025; 85027; 85610; 85730; 86403; 86592; 86705; 86706; 86708; 86803; 87040; 87086; 87340; 87449; 87497; 93005; 94640; 96365; 96366; 96367; 96376; 99285; G0378; J7040

== ENCOUNTER 2016-11-06 19:25 | Observation (INO) | payer MEDICARE, OTHER ==
[2016-11-06] MEDS ORDERED: Albuterol-Ipratrop 3 mg / 0.5 (3 ml) UD IH STA (20:01)
[2016-11-06 21:23] LABS: VENOUS BLOOD GAS BASE EXCESS 6.5 mmol/L (0.0-2.0); VENOUS BLOOD PH 7.35 (7.32-7.43)
[2016-11-06 21:24] LABS: BASO # 0.04 K/mm3 (0.0-2.0); EOS # 0.3 (0.0-0.7); EOS % 7.8 % (1.5-5.0); GRAN # 2.06 (1.4-6.5); GRAN % 51.4 % (50.0-68.0); HEMATOCRIT 33.1 % (42.0-52.0); LYMPH # 1.1 (1.2-3.4); LYMPH % 28.3 % (22.0-35.0); MEAN CELL VOLUME 82.5 fl (80.0-105.0); MEAN CORPUSCULAR HEMOGLOBIN 26.9 pg (25.0-35.0); MEAN CORPUSCULAR HGB CONC 32.6 g/dl (31.0-37.0); MEAN PLATELET VOLUME 8.9 fl (7.0-11.0); MONO # 0.5 (0.1-0.6); MONO % 11.5 % (1.0-6.0); RED CELL DISTRIBUTION WIDTH 15.6 % (11.5-14.5)
--- NOTE | 2016-11-06 21:30 | ED PDOC ---
Arrival/HPI - General Chief Complaint: Cough, Cold, Congestion Time Seen by Provider: 11/06/16 19:31 Historian: Patient - History of Present Illness Narrative History of Present Illness (Text): 11/06/16 19:50 Jakub Marques is a 76 year old male, whose past medical history includes mantle cell lymphoma, CAD s/p stents and pneumonia, presents to the emergency department complaining of 1 week duration of slight cough and congestion. Denies any fever, chills, headache, dizziness, chest pain, shortness of breath, nausea, vomiting, diarrhea, urinary symptoms, or any other complaints at this time. Past Medical History - Provider Review Nursing Documentation Reviewed: Yes - Past History Past History: Unable to Obtain - Infectious Disease Hx of Infectious Diseases: None - Tetanus Immunization Tetanus Immunization: Unknown - Cardiac Hx Cardiac Disorders: Yes (cad, angioplasty) Hx Hypertension: Yes - Pulmonary Hx Asthma: Yes Hx Pneumonia: No - Neurological Hx Transient Ischemic Attacks (TIA): Yes - HEENT Hx HEENT Disorder: Yes (wears eyeglasses) Hx Deafness: Yes Other/Comment: left ear sx for multiple infections has hearing loss uses a hearing aid, uses a hearing aid in right ear also - Renal Hx Renal Failure: No - Endocrine/Metabolic Hx Diabetes Mellitus Type 2: Yes - Hematological/Oncological Hx Blood Disorders: No Hx Anemia: Yes (blood transfusion) Hx Cancer: Yes (active mantle cell lymphoma) Hx Chemotherapy: Yes - Integumentary Other/Comment: healed b/l groin fungal rash,multiple bruises to left leg, bruise to left side of face from recent fall, patient feels lump under skin top inner left buttock, small eccymotic area to left fa - Musculoskeletal/Rheumatological Hx Falls: Yes (recent) - Gastrointestinal Hx Gastrointestinal Disorders: No - Genitourinary/Gynecological Hx Genitourinary Disorders: Yes (H/O URINARY FREQUENCY,DYSURIA,UTI) Hx Prostate Problems: Yes (bph/prostectomy/enlarged prostate) Other/Comment: c/o urinary urgency - Psychiatric Hx Psychophysiologic Disorder: No Hx Anxiety: Yes Hx Emotional Abuse: No Hx Physical Abuse: No Hx Substance Use: No - Past Surgical History Past Surgical History: Unable to Obtain - Surgical History Hx Cardiac Catheterization: Yes Hx Coronary Stent: Yes Hx Orthopedic Surgery: Yes (r thumb) Other/Comment: head sx post injury, video assisted thorascopy with right pulmonary nodule dissection at ilu, left lung bx, r cw pac - Anesthesia Hx Anesthesia: Yes Hx Anesthesia Reactions: No Hx Malignant Hyperthermia: No - Suicidal Assessment Feels Threatened In Home Enviroment: No Family/Social History - Physician Review Nursing Documentation Reviewed: Yes Family/Social History: No Known Family HX Smoking Status: Never Smoked Hx Alcohol Use: No Hx Substance Use: No Hx Substance Use Treatment: No Allergies/Home Meds Allergies/Adverse Reactions: Allergies azithromycin Allergy (Severe, Verified 07/28/16 12:15) ANGIOEDEMA erythromycin base Allergy (Severe, Verified 07/28/16 12:15) ANGIOEDEMA Penicillins Allergy (Severe, Verified 07/28/16 12:15) ANAPHYLAXIS cephalexin monohydrate [From Keflex] Allergy (Intermediate, Verified 07/28/16 12 :15) RASH gabapentin Allergy (Intermediate, Verified 07/28/16 12:15) RASH pregabalin Allergy (Intermediate, Verified 07/28/16 12:15) RASH Sulfa (Sulfonamide Antibiotics) Allergy (Intermediate, Verified 07/28/16 12:15) RASH nitro paste Allergy (Intermediate, Uncoded 07/28/16 12:15) DIZZINESS/HYPOTENSION CAUSE HYPOTENSION Imbrovica Allergy (Uncoded 07/29/16 11:47) FEVER Home Medications: Home Meds Medication Instructions Recorded Confirmed Aspirin [Aspirin EC] 81 mg PO DAILY 09/10/15 11/06/16 Levalbuterol [Xopenex] 1.25 mg IH TID 01/31/16 11/06/16 Acetaminophen [Tylenol (Renal)] 650 mg PO Q6 PRN 04/21/16 11/06/16 Metoprolol Tartrate [Lopressor] 25 mg PO HS 04/21/16 11/06/16 Pantoprazole [Protonix EC Tab] 40 mg PO DAILY 04/21/16 11/06/16 Calcium Carbonate/Vitamin D3 600 mg PO DAILY 06/03/16 11/06/16 [Caltrate 600 + D Soft Chew Tab] Magnesium Oxide [Magnesium] 400 mg PO HS 06/03/16 11/06/16 Nortriptyline HCl [Pamelor] 10 mg PO DAILY 06/03/16 11/06/16 Ranolazine [Ranexa] 500 mg PO BID 06/03/16 11/06/16 Silodosin [Rapaflo] 8 mg PO HS 06/03/16 11/06/16 Review of Systems - Physician Review All systems were reviewed & negative as marked: Yes - Review of Systems Constitutional: Normal. absent: Fatigue, Fevers Respiratory: Cough. absent: SOB, Sputum Cardiovascular: Normal. absent: Chest Pain, Palpitations Gastrointestinal: Normal. absent: Abdominal Pain, Diarrhea, Nausea, Vomiting Skin: Normal Neurological: Normal. absent: Headache, Dizziness Physical Exam Vital Signs Reviewed: Yes Vital Signs Temp Pulse Resp BP Pulse Ox 11/06/16 22:00 60 16 140/93 H 97 11/06/16 20:11 98.1 F 64 18 137/74 100 Temperature: Afebrile Blood Pressure: Normal Pulse: Regular Respiratory Rate: Normal Appearance: Positive for: Well-Appearing, Non-Toxic, Comfortable Pain Distress: None Mental Status: Positive for: Alert and Oriented X 3 - Systems Exam Head: Present: Atraumatic, Normocephalic Pupils: Present: PERRL Conjunctiva: Present: Normal Mouth: Present: Moist Mucous Membranes Respiratory/Chest: Present: Wheezes. No: Respiratory Distress, Accessory Muscle Use Abdomen: Present: Normal Bowel Sounds. No: Tenderness, Distention, Peritoneal Signs Upper Extremity: Present: Normal Inspection. No: Cyanosis, Edema Lower Extremity: Present: Normal Inspection. No: Edema Neurological: Present: GCS=15, CN II-XII Intact, Speech Normal, Motor Func Grossly Intact, Normal Sensory Function Skin: Present: Warm, Dry, Normal Color. No: Rashes Psychiatric: Present: Alert, Oriented x 3, Normal Insight, Normal Concentration Medical Decision Making ED Course and Treatment: 11/06/16 19:50 Impression: A 76 year old male who presents to the emergency department complaining of slight cough and congestion for a week. Plan: -- EKG -- CT Chest -- Labs, cardiac enzymes -- CXR -- Duoneb -- Blood Culture - Reassess and disposition Progress Notes: 11/06/16 20:08 EKG reviewed by me: NSR @ 64 bpm. Nonspecific T wave abnormality. 11/06/16 23:36 CT Chest results reviewed: IMPRESSION: No consolidation or infiltrate within the right hemithorax, as suspected in the patient's history. Interval resolution of the bibasilar pleural effusions. Focus of fat attenuation right lateral chest wall with adjacent atelectasis, unchanged from prior. 11/06/16 23:53 Case discussed with who is aware and agrees with the plan to observe patient at remote telemetry for bronchitis. Accepts patient under his service. Patient aware and agrees with the plan. - Lab Interpretations Lab Results: 11/06/16 21:00 11/06/16 21:00 Lab Results 11/06/16 21:00: Sodium 138, Chloride 99, Potassium 4.4, Carbon Dioxide 29, Anion Gap 14, BUN 14, Creatinine 1.1, Est GFR ( Amer) > 60, Est GFR (Non- Af Amer) > 60, Random Glucose 133 H, Calcium 9.2, Total Bilirubin 0.5, AST 30, ALT 22, Alkaline Phosphatase 130 H, Lactate Dehydrogenase 851 H, Total Creatine Kinase 38, Troponin I < 0.01, NT-Pro-B Natriuret Pep 148, Total Protein 7.3, Albumin 3.8, Globulin 3.5, Albumin/Globulin Ratio 1.1 11/06/16 21:00: pO2 33, VBG pH 7.35, VBG pCO2 61.0 H, VBG HCO3 33.7 H, VBG Total CO2 35.6 H, VBG O2 Sat (Calc) 62.8, VBG Base Excess 6.5 H, VBG Potassium 4.4, Sodium 136.0, Chloride 103.0, Glucose 143 H, Lactate 0.8, FiO2 21.0, Venous Blood Potassium 4.4 11/06/16 21:00: WBC 4.0 L D, RBC 4.01, Hgb 10.8 L, Hct 33.1 L, MCV 82.5, MCH 26.9, MCHC 32.6, RDW 15.6 H, Plt Count 195, MPV 8.9, Gran % 51.4, Lymph % (Auto ) 28.3, Liberty % (Auto) 11.5 H, Eos % (Auto) 7.8 H, Baso % (Auto) 1.0, Gran # 2.06 , Lymph # 1.1 L, Liberty # 0.5, Eos # 0.3, Baso # 0.04 I have reviewed the lab results: Yes - RAD Interpretation Narrative RAD Interpretations (Text): EXAM: CT Chest With Intravenous Contrast Dictated and Authenticated by: Renea Osborne MD FINDINGS: Lungs: No mass. No consolidation. Focus of fat attenuation with adjacent atelectasis along the lateral wall of the right lower lobe (series 2, image 51). Stable subcentimeter nodules bilaterally - 5 mm, right upper lobe (series 4, image 33); 3 mm, left upper lobe (series 4, image 44). Pleural spaces: Resolution of the bibasilar pleural effusion, seen on previous examination. No pneumothorax. Heart: No cardiomegaly. No significant pericardial effusion. Right internal jugular central venous port catheter, with its tip projecting over the right atrium. Vasculature: No aortic aneurysm. Lymph nodes: Stable mediastinal lymphadenopathy, the largest lymph node within the aortopulmonary window measuring 10 mm in short axis dimension. Bones: No acute fracture. IMPRESSION: No consolidation or infiltrate within the right hemithorax, as suspected in the patient's history. Interval resolution of the bibasilar pleural effusions. Focus of fat attenuation right lateral chest wall with adjacent atelectasis, unchanged from prior. Radiology Orders: 11/06/16 19:53 CHEST PORTABLE [RAD] Stat 11/06/16 21:50 CHEST W/CONTRAST [CT] Stat Environmental Intern: Radiologist - Medication Orders Current Medication Orders: Meropenem 1g/NS 100mL IVPB (Meropenem 1g/Ns 100ml Ivpb) 1 gm in 100 mls @ 100 mls/hr IVPB STAT STA PRN Reason: Protocol Stop: 11/07/16 00:45 Vancomycin HCl (Vancomycin 1gm) 1 gm in 250 mls @ 167 mls/hr IVPB DAILY ALEX PRN Reason: Protocol Discontinued Medications Albuterol/Ipratropium (Duoneb 3 Mg/0.5 Mg (3 Ml) Ud) 3 ml IH STAT STA Stop: 11/06/16 20:02 Last Admin: 11/06/16 21:06 Dose: 3 ml Iohexol (Omnipaque 350 100 Ml) Confirm Administered Dose 350 mg .ROUTE .STK-MED ONE Stop: 11/06/16 22:05 - Scribe Statement The provider has reviewed the documentation as recorded by the Tl Vann Provider Attestation: All medical record entries made by the Jadielibyovana were at my direction and personally dictated by me. I have reviewed the chart and agree that the record accurately reflects my personal performance of the history, physical exam, medical decision making, and the department course for this patient. I have also personally directed, reviewed, and agree with the discharge instructions and disposition. Disposition/Present on Arrival - Present on Arrival History of DVT/PE: No History of Uncontrolled Diabetes: No Urinary Catheter: No History of Decub. Ulcer: No History Surgical Site Infection Following: None - Disposition Referrals: Lucia SPENCE,MD Tyler [Primary Care Provider] - Follow up with primary Forms: [employer] ([place]vian)
[2016-11-06 21:31] LABS: ALB/GLOB RATIO 1.1 (1.1-1.8); ALKALINE PHOSPHATASE 130 U/L (38-126); ALT/SGPT 22 U/L (7-56); AST/SGOT 30 U/L (17-59); BILIRUBIN,TOTAL 0.5 mg/dL (0.2-1.3); BLOOD UREA NITROGEN 14 mg/dL (7-21); CALCIUM 9.2 mg/dL (8.4-10.5); CARBON DIOXIDE 29 mmol/L (21-33); CHLORIDE 99 mmol/L (98-107); GFR AFRICAN-AMERICAN > 60; GLUCOSE,RANDOM 133 mg/dL (70-110); POTASSIUM 4.4 mmol/L (3.6-5.0); SODIUM 138 mmol/L (132-148); TOTAL PROTEIN 7.3 g/dL (5.8-8.3)
[2016-11-06 21:43] LABS: TROPONIN I < 0.01 ng/mL
[2016-11-06] MEDS ORDERED: Iohexol 350 MG/100 ML VIAL ONE (22:04)
--- NOTE | 2016-11-06 23:33 | CT ---
EXAM: CT Chest With Intravenous Contrast CLINICAL HISTORY: 76 years old, male; Signs and symptoms; Cough; Symptoms not specified; Additional info: R/O infiltrate rt lung TECHNIQUE: Axial computed tomography images of the chest with intravenous contrast. All CT scans at this facility use one or more dose reduction techniques, viz.: automated exposure control; ma/kV adjustment per patient size (including targeted exams where dose is matched to indication; i.e. head); or iterative reconstruction technique. MIP reconstructed images were created and reviewed. Coronal and sagittal reformatted images were created and reviewed. CONTRAST: 100 mL of OMNIPAQUE administered intravenously. COMPARISON: CT - ANGIO CHEST PE PROTOCOL 06/09/2016 3:56:36 PM FINDINGS: Lungs: No mass. No consolidation. Focus of fat attenuation with adjacent atelectasis along the lateral wall of the right lower lobe (series 2, image 51). Stable subcentimeter nodules bilaterally - 5 mm, right upper lobe (series 4, image 33); 3 mm, left upper lobe (series 4, image 44). Pleural spaces: Resolution of the bibasilar pleural effusion, seen on previous examination. No pneumothorax. Heart: No cardiomegaly. No significant pericardial effusion. Right internal jugular central venous port catheter, with its tip projecting over the right atrium. Vasculature: No aortic aneurysm. Lymph nodes: Stable mediastinal lymphadenopathy, the largest lymph node within the aortopulmonary window measuring 10 mm in short axis dimension. Bones: No acute fracture. IMPRESSION: No consolidation or infiltrate within the right hemithorax, as suspected in the patient's history. Interval resolution of the bibasilar pleural effusions. Focus of fat attenuation? right lateral chest wall with adjacent atelectasis, unchanged from prior.
[2016-11-06] MEDS ORDERED: Meropenem 1g/NS 100mL IVPB 1 GM/100 ML PIGGYBACK IVPB STA (23:46)
[2016-11-07] MEDS ORDERED: Nystatin-Triamcinolone Cream(30 gm) TOP PRN (00:08)
[2016-11-07] MEDS: RAPAFLO 8 MG PO SCH ×2 (00:52→21:51)
[2016-11-07] MEDS ORDERED: Magnesium Oxide 400 mg Tab UD PO STA (00:56)
[2016-11-07] MEDS ORDERED: SILODOSIN 8 MG PO STA (00:58)
[2016-11-07 01:55] VITALS: BMI 28.1
[2016-11-07] MEDS: Pantoprazole 40 mg EC Tab PO SCH (04:59)
[2016-11-07 06:52] LABS: HEMATOCRIT 32.1 % (42.0-52.0); MEAN CELL VOLUME 82.1 fl (80.0-105.0); MEAN CORPUSCULAR HEMOGLOBIN 26.6 pg (25.0-35.0); MEAN CORPUSCULAR HGB CONC 32.4 g/dl (31.0-37.0); MEAN PLATELET VOLUME 8.8 fl (7.0-11.0); RED CELL DISTRIBUTION WIDTH 15.8 % (11.5-14.5)
[2016-11-07 06:58] LABS: ALB/GLOB RATIO 1.1 (1.1-1.8); ALKALINE PHOSPHATASE 119 U/L (38-126); ALT/SGPT 26 U/L (7-56); AST/SGOT 21 U/L (17-59); BILIRUBIN,TOTAL 0.6 mg/dL (0.2-1.3); BLOOD UREA NITROGEN 10 mg/dL (7-21); CALCIUM 8.6 mg/dL (8.4-10.5); CARBON DIOXIDE 28 mmol/L (21-33); CHLORIDE 100 mmol/L (98-107); GFR AFRICAN-AMERICAN > 60; GLUCOSE,RANDOM 168 mg/dL (70-110); POTASSIUM 4.2 mmol/L (3.6-5.0); SODIUM 137 mmol/L (132-148); TOTAL PROTEIN 6.5 g/dL (5.8-8.3)
[2016-11-07 07:08] LABS: WHITE BLOOD COUNT 2.9 10^3/ul (4.5-11.0)
--- NOTE | 2016-11-07 07:37 | RAD ---
HISTORY: cough COMPARISON: 07/28/2016 FINDINGS: LUNGS: No active pulmonary disease. PLEURA: No significant pleural effusion identified, no pneumothorax apparent. CARDIOVASCULAR: Normal heart size. Right central venous infusion port. Right hilar surgical clips. OSSEOUS STRUCTURES: No significant abnormalities. VISUALIZED UPPER ABDOMEN: Normal. OTHER FINDINGS: None. IMPRESSION: No active disease.
[2016-11-07 07:39] LABS: GRAN % 45.3 % (50.0-68.0); LYMPH % 28.4 % (22.0-35.0); MONO % 13.7 % (1.0-6.0)
[2016-11-07 07:40] LABS: BASO # 0.03 K/mm3 (0.0-2.0); EOS # 0.3 (0.0-0.7); EOS % 11.6 % (1.5-5.0); GRAN # 1.32 (1.4-6.5); LYMPH # 0.8 (1.2-3.4); MONO # 0.4 (0.1-0.6)
[2016-11-07] MEDS ORDERED: Levalbuterol 1.25 MG/3 ML Inhal Soln UD ONE (09:19)
[2016-11-07] MEDS: VITAMIN D3 PO SCH (09:47)
[2016-11-07] MEDS: CALCIUM CARBONATE PO SCH (09:47)
[2016-11-07] MEDS ORDERED: Levalbuterol 0.63 MG/3 ML Inhal Soln UD IH SCH (10:00)
[2016-11-07] MEDS ORDERED: Vancomycin 1gm in NS 250ml 1 GM/250 ML BAG IVPB SCH (10:00)
[2016-11-07] MEDS ORDERED: Ranolazine [Ranexa] 500 MG (HOME MED) PO SCH (10:00)
--- NOTE | 2016-11-07 11:43 | CP.PCM.CON ---
History of Present Illness - History of Present Illness History of Present Illness: 76 year old male with PMH of mantle cell lymphoma with history of chemotherapy, coronary artery disease, benign prostatic hyperplasia, dyslipidemia, history of urinary tract infection, history of candidemia, history of bilateral pneumonia was brought in to [facility] because of a week of cough and chest congestion. Cough is dry and non-productive. The patient has not had fever or chills, no chest pain, no SOB, no nausea or vomiting, no abdominal pain, no diarrhea, no dysuria. 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 Infectious Diseases consult is requested to further evaluate and manage. Review of Systems - Review of Systems All systems: reviewed and no additional remarkable complaints except (as per HPI ) Past Patient History - Infectious Disease Hx of Infectious Diseases: None - Tetanus Immunizations Tetanus Immunization: Unknown - Past Medical History & Family History Past Medical History?: Yes - Past Social History Smoking Status: Never Smoked - CARDIAC Hx Cardiac Disorders: Yes Hx Hypercholesterolemia: Yes Hx Hypertension: Yes - PULMONARY Hx Respiratory Disorders: Yes Hx Asthma: Yes - NEUROLOGICAL Hx Neurological Disorder: Yes Hx Transient Ischemic Attacks (TIA): Yes - HEENT Hx HEENT Problems: Yes (wears glasses) Hx Deafness: Yes (creek, b/l hearing aids) - RENAL Hx Chronic Kidney Disease: No - ENDOCRINE/METABOLIC Hx Endocrine Disorders: Yes Hx Diabetes Mellitus Type 2: Yes - HEMATOLOGICAL/ONCOLOGICAL Hx Blood Disorders: Yes Hx Anemia: Yes Hx Cancer: Yes (mantle cell lymphoma "active") - INTEGUMENTARY Hx Dermatological Problems: No - MUSCULOSKELETAL/RHEUMATOLOGICAL Hx Musculoskeletal Disorders: Yes Hx Falls: Yes (recent) Hx Unsteady Gait: Yes (cane) - GASTROINTESTINAL Hx Gastrointestinal Disorders: No - GENITOURINARY/GYNECOLOGICAL Hx Genitourinary Disorders: Yes Hx Prostate Problems: Yes (bph, prostectomy) Hx Urinary Tract Infection: Yes - PSYCHIATRIC Hx Psychophysiologic Disorder: Yes Hx Anxiety: Yes - SURGICAL HISTORY Hx Surgeries: Yes (right pulmonary nodule dissection) Hx Cardiac Catheterization: Yes (angioplasty) Hx Coronary Stent: Yes Hx Orthopedic Surgery: Yes (right thumb) - ANESTHESIA Hx Anesthesia: Yes Hx Anesthesia Reactions: No Hx Malignant Hyperthermia: No Meds Allergies/Adverse Reactions: Allergies Allergy/AdvReac Type Severity Reaction Status Date / Time azithromycin Allergy Severe ANGIOEDEMA Verified 07/28/16 12:15 erythromycin base Allergy Severe ANGIOEDEMA Verified 07/28/16 12:15 Penicillins Allergy Severe ANAPHYLAXIS Verified 07/28/16 12:15 cephalexin monohydrate Allergy Intermediate RASH Verified 07/28/16 12:15 [From Keflex] gabapentin Allergy Intermediate RASH Verified 07/28/16 12:15 pregabalin Allergy Intermediate RASH Verified 07/28/16 12:15 Sulfa (Sulfonamide Allergy Intermediate RASH Verified 07/28/16 12:15 Antibiotics) nitro paste Allergy Intermediate DIZZINESS/H Uncoded 07/28/16 12:15 YPOTENSION Imbrovica Allergy FEVER Uncoded 07/29/16 11:47 - Medications Medications: Current Medications Acetaminophen (Tylenol 325mg Tab) 650 mg PO Q6 PRN PRN Reason: Pain, Mild (1-3) Aspirin (Ecotrin) 81 mg PO DAILY [facility] Atorvastatin Calcium (Lipitor) 20 mg PO HS [facility] Clopidogrel Bisulfate (Plavix) 75 mg PO DAILY [facility] Doxycycline Hyclate (Doryx) 100 mg PO Q12 ALEX PRN Reason: Protocol Fluocinonide (Lidex 0.05% Cream) 15 gm TOP BID PRN PRN Reason: Rash Home Med (Home Med) 1 unit PO HS [facility] Last Admin: 11/07/16 00:52 Dose: 1 unit Home Med (Home Med) 1 unit PO Q12 ALEX Vancomycin HCl (Vancomycin 1gm) 1 gm in 250 mls @ 167 mls/hr IVPB DAILY ALEX PRN Reason: Protocol Meropenem 1g/NS 100mL IVPB (Meropenem 1g/Ns 100ml Ivpb) 1 gm in 100 mls @ 100 mls/hr IVPB Q8 ALEX PRN Reason: Protocol Stop: 11/14/16 14:01 Levalbuterol HCl (Xopenex) 1.25 mg IH TID [facility] Magnesium Oxide (Mag-Ox) 400 mg PO HS [facility] Metoprolol Tartrate (Lopressor) 25 mg PO HS [facility] Calcium Carbonate/Vitamin D3 [Caltrate 600 + D Soft Chew Tab] (Home Med) 600 mg PO DAILY [facility] Nortriptyline HCl (Pamelor) 10 mg PO DAILY [facility] Nystatin/Triamcinolone Acetonide (Nystatin/Triamcinolone Cream) 1 ea TOP PRN PRN PRN Reason: Itching / Pruritus Ondansetron HCl (Zofran Tab) 4 mg PO Q6H PRN PRN Reason: Nausea/Vomiting Pantoprazole Sodium (Protonix Ec Tab) 40 mg PO 0600 ALEX Last Admin: 11/07/16 04:59 Dose: 40 mg Physical Exam - Constitutional Appears: Non-toxic, No Acute Distress - Head Exam Head Exam: NORMAL INSPECTION - ENT Exam ENT Exam: Mucous Membranes Moist - Neck Exam Neck exam: Negative for: Lymphadenopathy, Meningismus - Respiratory Exam Respiratory Exam: Decreased Breath Sounds - Cardiovascular Exam Cardiovascular Exam: +S1, +S2 - GI/Abdominal Exam GI & Abdominal Exam: Soft. absent: Tenderness Results - Vital Signs Recent Vital Signs: Last Vital Signs Temp 98.1 F 11/06/16 20:11 Pulse 62 11/07/16 05:44 Resp 16 11/07/16 01:00 BP 135/76 11/07/16 01:00 Pulse Ox 99 11/07/16 01:00 - Labs Result Diagrams: 11/07/16 06:30 11/07/16 06:30 Assessment & Plan - Assessment and Plan (Free Text) Plan: Assessment Consider acute bronchitis, R/O pertussis history of UTI with E. 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 - S /P removal; now with new right anterior chest wall port-a-cath mantle cell lymphoma on chemotherapy coronary artery disease benign prostatic hyperplasia dyslipidemia history of urinary tract infection Plan started Vancomycin, Merrem and doxycycline pending blood, urine cx, PCT, sputum cx; reviewed CT chest which does not show pneumonia follow up pertussis work up since patient is exposed his who was diagnosed with pertussis, he needs chemoprophylaxis - patient has severe allergy to macrolides as well as Sulfa allergies (the preferred drugs for Pertussis) - we will use Doxycycline ( Tetracyclines have been used in some reports) Will follow clinically
[2016-11-07] MEDS: Levalbuterol 0.63 MG/3 ML Inhal Soln UD IH SCH ×2 (13:31→20:21)
[2016-11-07] MEDS: Meropenem 1g/NS 100mL IVPB 1 GM/100 ML PIGGYBACK IVPB SCH ×2 (13:32→21:49)
[2016-11-07 17:01] VITALS: TEMP 97.7
[2016-11-07] MEDS ORDERED: Magnesium Oxide 400 mg Tab UD PO SCH (22:00)
[2016-11-07] MEDS ORDERED: SILODOSIN 8 MG PO SCH (22:00)
--- NOTE | 2016-11-07 23:47 | CP.PCM.CON ---
History of Present Illness - History of Present Illness History of Present Illness: Consult requested for evaluation of SOB , concern for anginal equivalent with hx of LAD stenting x 2 HPI: Past Patient History - Infectious Disease Hx of Infectious Diseases: None - Tetanus Immunizations Tetanus Immunization: Unknown - Past Medical History & Family History Past Medical History?: Yes - Past Social History Smoking Status: Never Smoked - CARDIAC Hx Cardiac Disorders: Yes Hx Hypercholesterolemia: Yes Hx Hypertension: Yes - PULMONARY Hx Respiratory Disorders: Yes Hx Asthma: Yes - NEUROLOGICAL Hx Neurological Disorder: Yes Hx Transient Ischemic Attacks (TIA): Yes - HEENT Hx HEENT Problems: Yes (wears glasses) Hx Deafness: Yes (nenana, b/l hearing aids) - RENAL Hx Chronic Kidney Disease: No - ENDOCRINE/METABOLIC Hx Endocrine Disorders: Yes Hx Diabetes Mellitus Type 2: Yes - HEMATOLOGICAL/ONCOLOGICAL Hx Blood Disorders: Yes Hx Anemia: Yes Hx Cancer: Yes (mantle cell lymphoma "active") - INTEGUMENTARY Hx Dermatological Problems: No - MUSCULOSKELETAL/RHEUMATOLOGICAL Hx Musculoskeletal Disorders: Yes Hx Falls: Yes (recent) Hx Unsteady Gait: Yes (cane) - GASTROINTESTINAL Hx Gastrointestinal Disorders: No - GENITOURINARY/GYNECOLOGICAL Hx Genitourinary Disorders: Yes Hx Prostate Problems: Yes (bph, prostectomy) Hx Urinary Tract Infection: Yes - PSYCHIATRIC Hx Psychophysiologic Disorder: Yes Hx Anxiety: Yes - SURGICAL HISTORY Hx Surgeries: Yes (right pulmonary nodule dissection) Hx Cardiac Catheterization: Yes (angioplasty) Hx Coronary Stent: Yes Hx Orthopedic Surgery: Yes (right thumb) - ANESTHESIA Hx Anesthesia: Yes Hx Anesthesia Reactions: No Hx Malignant Hyperthermia: No Meds Allergies/Adverse Reactions: Allergies Allergy/AdvReac Type Severity Reaction Status Date / Time azithromycin Allergy Severe ANGIOEDEMA Verified 07/28/16 12:15 erythromycin base Allergy Severe ANGIOEDEMA Verified 07/28/16 12:15 Penicillins Allergy Severe ANAPHYLAXIS Verified 07/28/16 12:15 cephalexin monohydrate Allergy Intermediate RASH Verified 07/28/16 12:15 [From Keflex] gabapentin Allergy Intermediate RASH Verified 07/28/16 12:15 pregabalin Allergy Intermediate RASH Verified 07/28/16 12:15 Sulfa (Sulfonamide Allergy Intermediate RASH Verified 07/28/16 12:15 Antibiotics) nitro paste Allergy Intermediate DIZZINESS/H Uncoded 07/28/16 12:15 YPOTENSION Imbrovica Allergy FEVER Uncoded 07/29/16 11:47 - Medications Medications: Current Medications Acetaminophen (Tylenol 325mg Tab) 650 mg PO Q6 PRN PRN Reason: Pain, Mild (1-3) Aspirin (Ecotrin) 81 mg PO DAILY [facility] Last Admin: 11/07/16 09:10 Dose: 81 mg Atorvastatin Calcium (Lipitor) 20 mg PO HS [facility] Last Admin: 11/07/16 21:51 Dose: 20 mg Budesonide (Pulmicort Respules) 0.5 mg IH [id number] [facility] Clopidogrel Bisulfate (Plavix) 75 mg PO DAILY [facility] Last Admin: 11/07/16 09:10 Dose: 75 mg Doxycycline Hyclate (Doryx) 100 mg PO Q12 [facility] PRN Reason: Protocol Last Admin: 11/07/16 21:49 Dose: 100 mg Fluocinonide (Lidex 0.05% Cream) 15 gm TOP BID PRN PRN Reason: Rash Home Med (Home Med) 1 unit PO HS [facility] Last Admin: 11/07/16 21:51 Dose: 1 unit Home Med (Home Med) 1 unit PO Q12 [facility] Last Admin: 11/07/16 21:51 Dose: 1 unit Vancomycin HCl (Vancomycin 1gm) 1 gm in 250 mls @ 167 mls/hr IVPB DAILY [facility] PRN Reason: Protocol Last Admin: 11/07/16 09:09 Dose: 167 mls/hr Meropenem 1g/NS 100mL IVPB (Meropenem 1g/Ns 100ml Ivpb) 1 gm in 100 mls @ 100 mls/hr IVPB Q8 [facility] PRN Reason: Protocol Stop: 11/14/16 14:01 Last Admin: 11/07/16 21:49 Dose: 100 mls/hr Levalbuterol HCl (Xopenex) 1.25 mg IH RTID [facility] Last Admin: 11/07/16 20:21 Dose: 1.25 mg Magnesium Oxide (Mag-Ox) 400 mg PO HS [facility] Last Admin: 11/07/16 21:50 Dose: 400 mg Metoprolol Tartrate (Lopressor) 25 mg PO HS [facility] Last Admin: 11/07/16 21:50 Dose: 25 mg Montelukast Sodium (Singulair) 10 mg PO HS [facility] Calcium Carbonate/Vitamin D3 [Caltrate 600 + D Soft Chew Tab] (Home Med) 600 mg PO DAILY [facility] Last Admin: 11/07/16 09:47 Dose: Not Given Nortriptyline HCl (Pamelor) 10 mg PO DAILY [facility] Last Admin: 11/07/16 09:10 Dose: 10 mg Nystatin/Triamcinolone Acetonide (Nystatin/Triamcinolone Cream) 0 ea TOP BID PRN PRN Reason: Itching / Pruritus Ondansetron HCl (Zofran Tab) 4 mg PO Q6H PRN PRN Reason: Nausea/Vomiting Pantoprazole Sodium (Protonix Ec Tab) 40 mg PO 0600 [facility] Last Admin: 11/07/16 04:59 Dose: 40 mg Results - Vital Signs Recent Vital Signs: Last Vital Signs Temp 97.7 F 11/07/16 16:00 Pulse 77 11/07/16 21:50 Resp 19 11/07/16 16:00 BP 136/72 11/07/16 21:50 Pulse Ox 99 11/07/16 16:00 - Labs Result Diagrams: 11/07/16 06:30 11/07/16 06:30 Labs: Laboratory Results - last 24 hr 11/07/16 11/07/16 11/07/16 06:30 06:30 06:30 WBC 2.9 L* D RBC 3.91 Hgb 10.4 L Hct 32.1 L MCV 82.1 MCH 26.6 MCHC 32.4 RDW 15.8 H Plt Count 174 MPV 8.8 Gran % 45.3 L Lymph % (Auto) 28.4 Dane % (Auto) 13.7 H Eos % (Auto) 11.6 H Baso % (Auto) 1.0 Gran # 1.32 L Lymph # 0.8 L Dane # 0.4 Eos # 0.3 Baso # 0.03 Sodium 137 Potassium 4.2 Chloride 100 Carbon Dioxide 28 Anion Gap 13 BUN 10 Creatinine 0.9 Est GFR ( Amer) > 60 Est GFR (Non-Af Amer) > 60 Random Glucose 168 H Uric Acid Calcium 8.6 Total Bilirubin 0.6 AST 21 ALT 26 Alkaline Phosphatase 119 Total Protein 6.5 Albumin 3.4 Globulin 3.1 Albumin/Globulin Ratio 1.1 Procalcitonin < 0.05 L 11/07/16 08:00 WBC RBC Hgb Hct MCV MCH MCHC RDW Plt Count MPV Gran % Lymph % (Auto) Dane % (Auto) Eos % (Auto) Baso % (Auto) Gran # Lymph # Dane # Eos # Baso # Sodium Potassium Chloride Carbon Dioxide Anion Gap BUN Creatinine Est GFR ( Amer) Est GFR (Non-Af Amer) Random Glucose Uric Acid 6.1 Calcium Total Bilirubin AST ALT Alkaline Phosphatase Total Protein Albumin Globulin Albumin/Globulin Ratio Procalcitonin
--- NOTE | 2016-11-08 00:23 | CARD ---
APPROVED REPORT EKG Measurement Heart [id number] <Conclusion> Normal sinus rhythm Nonspecific T wave abnormality Abnormal ECG
[2016-11-08] MEDS: Meropenem 1g/NS 100mL IVPB 1 GM/100 ML PIGGYBACK IVPB SCH (06:50)
[2016-11-08] MEDS: Pantoprazole 40 mg EC Tab PO SCH (06:51)
[2016-11-08] MEDS: Budesonide 0.5 mg/2 ml Inhal Susp UD IH SCH ×2 (07:28→07:30)
[2016-11-08 07:47] VITALS: BP 125/61; RESP 20; O2SAT 96
[2016-11-08] MEDS: CALCIUM CARBONATE PO SCH (09:32)
[2016-11-08] MEDS: VITAMIN D3 PO SCH (09:32)
--- NOTE | 2016-11-08 10:08 | CON ---
PULMONARY CONSULTATION DATE: 11/07/2016 REFERRING PHYSICIAN: Ted Santoyo MD REASON FOR CONSULTATION: Cough and shortness of breath. HISTORY OF PRESENT ILLNESS: This is a 76-year-old gentleman with history of coronary artery disease, cardiomyopathy, history of coronary stent, last stress test was about 2 months ago, also history of mantel cell lymphoma, been on chemotherapy, history of lung cancer, requiring wedge resection in the remote past, recurrent UTI, history of candidemia, in the last few days has been having cough and shortness of breath, came to the emergency room where chest x-ray done with question of pneumonia. He underwent CAT scan of the chest, which was unremarkable for any pneumonia or any tumor. There is no fever or chills. No hemoptysis. No hematemesis. No hematuria. No diarrhea reported. PAST MEDICAL HISTORY: Significant for mantel cell lymphoma, history of chemotherapy, history of lung cancer, requiring wedge resection in the remote past, coronary artery disease, cardiomyopathy, history of coronary stent, BPH, hyperlipidemia, and recurrent UTI. SOCIAL HISTORY: Nonsmoker and nondrinker. FAMILY HISTORY: No significant cardiopulmonary disease reported. ALLERGIES: ALLERGY TO MULTIPLE MEDICATIONS INCLUDING ZITHROMAX, PENICILLIN, KEFLEX, GABAPENTIN, SULFA, NITRO, AND ALSO ALLERGY TO IMBRUVICA. MEDICATIONS: He is on vitamin D, calcium carbonate 600 mg daily, doxycycline 100 mg twice a day, Ecotrin 81 mg daily, he is on Lidex 0.05% affected area twice a day, Lipitor 20 mg daily, metoprolol tartrate 25 mg at bedtime, magnesium oxide 400 mg at bedtime, meropenem 1 mg IV q. 8 hours, nystatin with triamcinolone to affected area, nortriptyline 10 mg daily, Plavix 75 mg daily, Protonix 40 mg daily, Tylenol p.r.n. basis, vancomycin 1 g IV daily, Xopenex inhaler three times a day, and Zofran 4 mg q. 6 hours. REVIEW OF SYSTEMS: No headache. No rhinitis. Had some dry cough and short of breath with exertion. No chest pain. No nausea, no vomiting, diarrhea, leg pain or leg swelling. PHYSICAL EXAMINATION GENERAL: Lying in the bed. No acute distress. VITAL SIGNS: Temperature 98, heart rate 68, respiratory rate 18, blood pressure 136/74, and pulse ox 99% on room air. HEENT: Moist mucous membrane. Small oral cavity. Crowded airway. NECK: Supple. No JVD. LUNGS: Prolonged expiratory phase with few wheezing. HEART: S1 and S2. ABDOMEN: Soft and nontender. No organomegaly. EXTREMITIES: No edema. NEUROLOGIC: Awake, alert, follows simple commands. LABORATORY DATA: Shows hemoglobin 10.4, hematocrit 32.1, WBC 2.9, and platelet count is 174. On admission, VBG was done which shows pH of 7.35, pCO2 61, O2 33. Sodium 137, potassium 4.2, chloride 100, bicarbonate 28, BUN 10, creatinine 0.9, glucose 168, calcium 8.6, AST 21, ALT 26, alkaline phosphatase is 119, C-reactive protein is 6.1, albumin is 3.4, procalcitonin less than 0.05. Microbiology; blood cultures has been negative. Had a CAT scan of the chest done yesterday, which shows no consolidation or infiltrate, interval resolution of the basilar right effusion. ASSESSMENT: Probably of an acute bronchitis, chronic lung disease and there may be a component of sleep apnea syndrome, history of cardiomyopathy and coronary artery disease, history of coronary stent, mantel cell lymphoma, history of lung cancer in the past. From pulmonary point of view, he is doing okay. Continue localized inhaled bronchodilator, add Pulmicort inhaler twice a day, also will add Singulair 10 mg at bedtime, antibiotic as per infectious disease. The patient is seen by Cardiology. Thank you and we will follow with you. Thanh Duffy MD
[2016-11-08 11:12] LABS: BASO # 0.03 K/mm3 (0.0-2.0); BASO % 0.9 % (0.0-3.0); EOS # 0.4 (0.0-0.7); EOS % 10.9 % (1.5-5.0); GRAN # 1.83 (1.4-6.5); GRAN % 52.6 % (50.0-68.0); HEMATOCRIT 34.9 % (42.0-52.0); LYMPH # 0.9 (1.2-3.4); LYMPH % 26.1 % (22.0-35.0); MEAN CELL VOLUME 82.5 fl (80.0-105.0); MEAN CORPUSCULAR HEMOGLOBIN 27.2 pg (25.0-35.0); MEAN PLATELET VOLUME 9.3 fl (7.0-11.0); MONO # 0.3 (0.1-0.6); MONO % 9.5 % (1.0-6.0); RED CELL DISTRIBUTION WIDTH 15.7 % (11.5-14.5); WHITE BLOOD COUNT 3.5 10^3/ul (4.5-11.0)
[2016-11-08 11:36] VITALS: PULSE 98
--- NOTE | 2016-11-08 15:57 | CP.PCM.PN ---
Subjective - Date & Time of Evaluation Date of Evaluation: 11/08/16 Time of Evaluation: 10:40 - Subjective Subjective: Comfortable, much improved cough, no fevers overnight. Objective - Vital Signs/Intake and Output Vital Signs (last 24 hours): Temp Pulse Resp BP Pulse Ox 97.7 F 76 20 125/61 96 11/08/16 07:57 11/08/16 07:57 11/08/16 07:57 11/08/16 07:57 11/08/16 07:57 Intake and Output: 11/08/16 11/08/16 06:59 18:59 Intake Total 780 Output Total 1800 Balance -1020 - Medications Medications: Current Medications Acetaminophen (Tylenol 325mg Tab) 650 mg PO Q6 PRN PRN Reason: Pain, Mild (1-3) Aspirin (Ecotrin) 81 mg PO DAILY [facility] Last Admin: 11/07/16 09:10 Dose: 81 mg Atorvastatin Calcium (Lipitor) 20 mg PO [facility] Last Admin: 11/07/16 21:51 Dose: 20 mg Budesonide (Pulmicort Respules) 0.5 mg IH [id number] [facility] Last Admin: 11/08/16 07:30 Dose: 0.5 mg Clopidogrel Bisulfate (Plavix) 75 mg PO DAILY [facility] Last Admin: 11/07/16 09:10 Dose: 75 mg Doxycycline Hyclate (Doryx) 100 mg PO Q12 [facility] PRN Reason: Protocol Last Admin: 11/07/16 21:49 Dose: 100 mg Fluocinonide (Lidex 0.05% Cream) 15 gm TOP BID PRN PRN Reason: Rash Home Med (Home Med) 1 unit PO [facility] Last Admin: 11/07/16 21:51 Dose: 1 unit Home Med (Home Med) 1 unit PO Q12 [facility] Last Admin: 11/07/16 21:51 Dose: 1 unit Levalbuterol HCl (Xopenex) 1.25 mg IH RTID [facility] Last Admin: 11/07/16 20:21 Dose: 1.25 mg Magnesium Oxide (Mag-Ox) 400 mg PO [facility] Last Admin: 11/07/16 21:50 Dose: 400 mg Metoprolol Tartrate (Lopressor) 25 mg PO [facility] Last Admin: 11/07/16 21:50 Dose: 25 mg Montelukast Sodium (Singulair) 10 mg PO [facility] Calcium Carbonate/Vitamin D3 [Caltrate 600 + D Soft Chew Tab] (Home Med) 600 mg PO DAILY [facility] Last Admin: 11/07/16 09:47 Dose: Not Given Nortriptyline HCl (Pamelor) 10 mg PO DAILY [facility] Last Admin: 11/07/16 09:10 Dose: 10 mg Nystatin/Triamcinolone Acetonide (Nystatin/Triamcinolone Cream) 0 ea TOP BID PRN PRN Reason: Itching / Pruritus Ondansetron HCl (Zofran Tab) 4 mg PO Q6H PRN PRN Reason: Nausea/Vomiting Pantoprazole Sodium (Protonix Ec Tab) 40 mg PO 0600 [facility] Last Admin: 11/08/16 06:51 Dose: 40 mg - Labs Labs: 11/07/16 06:30 11/07/16 06:30 - Constitutional Appears: Non-toxic, No Acute Distress - Head Exam Head Exam: NORMAL INSPECTION - ENT Exam ENT Exam: Mucous Membranes Moist - Neck Exam Neck Exam: absent: Lymphadenopathy, Meningismus - Respiratory Exam Respiratory Exam: Decreased Breath Sounds - Cardiovascular Exam Cardiovascular Exam: +S1, +S2 - GI/Abdominal Exam GI & Abdominal Exam: Soft. absent: Tenderness Assessment and Plan - Assessment and Plan (Free Text) Plan: Assessment Consider acute bronchitis, R/O pertussis history of UTI with E. 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 - S /P removal; now with new right anterior chest wall port-a-cath mantle cell lymphoma on chemotherapy coronary artery disease benign prostatic hyperplasia dyslipidemia history of urinary tract infection Plan cultures have been negative - will continue doxycycline (day 2, to complete 10- 14 days); PCT is <0.05; reviewed CT chest which does not show pneumonia follow up pertussis work up since patient is exposed his who was diagnosed with pertussis, he needs chemoprophylaxis - patient has severe allergy to macrolides as well as Sulfa allergies (the preferred drugs for Pertussis) - we will use Doxycycline ( Tetracyclines have been used in some reports)
--- NOTE | 2016-11-08 18:53 | HP ---
HISTORY OF PRESENT ILLNESS: The patient is a 76-year-old male with a past medical history of mantle cell lymphoma, stage IV; coronary artery disease, status post 2 stents; history of multiple episodes of admission to the hospital with fevers and chills, thought to be related to active therapy with ibrutinib and Rituxan, which he is off right now as he had had an acute response to the treatment and the disease is quiescent at this time based on the last PET-CT scan during 09/2016, presented to the emergency room complaining of 10 days' duration of cough and congestion without any fever, chills, headache, dizziness, chest pain, shortness of breath. Cough at sometime is hacking in nature and recently, his had also been sick and had tested positive for the pertussis antibodies; it is unclear whether it was result of recent active infection or was it from having had the pertussis vaccine about 10 months ago. it is unclear that she was treated and the concern was whether the patient would be having similar symptoms with hacking cough for which he came to the emergency room. PAST MEDICAL HISTORY: Significant for the fact that he has stage IV mantle cell lymphoma and he has been treated over the past 8 years with various regimens and been in remission and then, he had his relapse about 18 months ago and he has been most recently on the ibrutinib and Rituxan with excellent response to his therapy. Past medical history is also significant for coronary artery disease for which he has had multiple procedures done in the past and he is under the supervision of quarter section ironer and also has history prior to this of having had early lung cancer, status post resection, about three and a half years ago. REVIEW OF SYSTEMS: A 12-system review of systems was done except for the coughing which is hacking in nature, which is mentioned in the HPI. The rest of the review of systems was unremarkable. FAMILY HISTORY: Noncontributory. SOCIAL HISTORY: The patient is a nonsmoker, nonalcoholic, non-substance abuser. ALLERGIES: HE HAS MULTIPLE ALLERGIES. HE HAS ALLERGIES TO ERYTHROMYCIN BASED DRUGS, AZITHROMYCIN, PENICILLIN WITH SEVERE ALLERGY, CEPHALEXIN, GABAPENTIN, PREGABALIN, SULFONAMIDES, NITROPASTE AND MORE RECENTLY HAD IMBRUVICA ALLERGY WELL WAS HAVING FEVERS AND CHILLS WHICH WERE THOUGHT FROM THE IMBRUVICA AND THERE IS A CERTAIN PERCENTAGE OF PATIENTS THAT CAN HAVE THAT. HOME MEDICATIONS: Reviewed, the patient is on aspirin 81 mg daily, Xopenex 1.25 mg inhalation t.i.d., Tylenol p.r.n., metoprolol tartrate 25 mg at bedtime, Protonix AC 40 mg daily, calcium carbonate and vitamin D, mag oxide 400 mg at bedtime, Pamelor 10 mg daily, Ranexa 500 b.i.d., p.o. at bedtime. PHYSICAL EXAMINATION: On admission revealed: VITAL SIGNS: T-max to be 98.4, pulse 64, respirations 18 per minute, blood pressure is 137/74, pulse ox of 100%. The patient is afebrile. GENERAL: The patient appeared to be nontoxic and comfortable. HEENT: Head is normocephalic and atraumatic. Conjunctivae are pale. Scleras are anicteric. Pupils are equally reactive to light and accommodation. Examination of the oropharynx reveals the patient to be edentulous and has dentures. LUNGS: Reveal scattered wheezes, but no other significant adventitious sounds. The patient does not have any accessory muscle use as far as the respiratory muscles are concerned. CARDIOVASCULAR SYSTEM: Reveals S1 and S2 to be normal. No gallop or murmur is heard. ABDOMEN: Soft, nontender, protuberant. There is no evidence of rebound, rigidity or guarding. Liver and spleen not palpable. EXTREMITIES: Examination of the upper extremities and lower extremities reveals them to be normal to inspection. There is no cyanosis, clubbing or edema. NEUROLOGICAL EXAMINATION: Reveals higher functions are normal. No focal deficits are noted. SKIN: Turgor is normal. No skin lesions are noted. PSYCHIATRIC: The patient is awake, alert and oriented, in no acute distress. The patient was admitted to the emergency room complaining of congestion, cough and the background history of having had major admissions to the hospital in the past with pneumonias and multiple admissions for fevers and chills, was found to be on the cautious side, the patient was admitted. Broad-spectrum antibiotics have been started with meropenem and vancomycin, pending cultures, both blood cultures and testing for pertussis have also been requested. Lab data drawn in the emergency room shows the patient to be borderline leukopenic which is of concern, could be viral in etiology, we will have to see how the ANC is trending. If it comes down, the patient may need Neupogen any other overt issues at this time. The patient had a CAT scan of the chest done in the emergency room, which shows no consolidation or infiltration within the right hemithorax. I suspected in the patient's history the essential resolution of bibasilar pleural effusions. Focus of fat attenuation in the right lateral chest wall with adjacent atelectasis, unchanged from prior examinations. Chemistries are within normal limits. ASSESSMENT NOTES AND PLAN: Intractable cough for the last 10 days, could be viral in etiology, titers have been sent for pertussis in addition to malhotra cultures. We will await to get input from infectious disease as well. In the meantime, we will be on the conservative side and the patient has been started on broad-spectrum antibiotics. Cardiac consult has also been called just to make sure it is just not a manifestation of underlying cardiac issues, which the patient had significant problems with in the recent past. I discussed my findings in detail with the patient and his , and we are going to get input both from infectious disease and cardiology before making further plans. If the cultures are negative and the counts are stable, our plan is to discontinue the antibiotics and watch him as an outpatient. We will make the decision over the next 24 hours. Alie Myers MD
[2016-11-09 17:15] LABS: B.PARAPERTUSSIS DNA Not Detected (Not Detected); B.PERTUSSIS DNA Not Detected (Not Detected)
== END 2016-11-08 15:41 | disposition home or self-care (01) ==
LOC: ED 19:25 → ERH 23:47 → 3RNO 11-07 01:19
PROVIDERS: ADMIT Family Medicine; ATTEND Family Medicine
DX: J20.9 Acute bronchitis, unspecified (principal); J90 Pleural effusion, not elsewhere classified; J98.11 Atelectasis; C83.10 Mantle cell lymphoma, unspecified site; E11.9 Type 2 diabetes mellitus without complications; E78.00 Pure hypercholesterolemia, unspecified; E78.5 Hyperlipidemia, unspecified; G47.30 Sleep apnea, unspecified; H91.93 Unspecified hearing loss, bilateral; I10 Essential (primary) hypertension; I25.10 Atherosclerotic heart disease of native coronary artery without angina pectoris; I42.9 Cardiomyopathy, unspecified; J45.909 Unspecified asthma, uncomplicated; N40.1 Benign prostatic hyperplasia with lower urinary tract symptoms; Z79.82 Long term (current) use of aspirin; Z79.899 Other long term (current) drug therapy; Z85.118 Personal history of other malignant neoplasm of bronchus and lung; Z86.19 Personal history of other infectious and parasitic diseases; Z86.73 Personal history of transient ischemic attack (TIA), and cerebral infarction without residual deficits; Z87.440 Personal history of urinary (tract) infections; Z92.21 Personal history of antineoplastic chemotherapy; Z95.5 Presence of coronary angioplasty implant and graft; S00.83XA Contusion of other part of head, initial encounter; S80.12XA Contusion of left lower leg, initial encounter; Z91.81 History of falling; R35.0 Frequency of micturition; R30.0 Dysuria; Z88.1 Allergy status to other antibiotic agents; Z88.0 Allergy status to penicillin; Z88.2 Allergy status to sulfonamides; Z88.8 Allergy status to other drugs, medicaments and biological substances; Z87.892 Personal history of anaphylaxis; R40.2412 Glasgow coma scale score 13-15, at arrival to emergency department; D64.9 Anemia, unspecified; R26.81 Unsteadiness on feet; F41.9 Anxiety disorder, unspecified
CPT/HCPCS: 36415; 71010; 71260; 80053; 82550; 82803; 83615; 83880; 84145; 84484; 84550; 85025; 85651; 86140; 87040; 87081; 87471; 93005; 94640; 94760; 97116; 97161; 99285; G0378; G8978; G8979; Q9967

== ENCOUNTER 2016-11-20 18:46 | Inpatient (IN) | payer MEDICARE, OTHER ==
--- NOTE | 2016-11-20 19:01 | ED PDOC ---
Arrival/HPI - General Time Seen by Provider: 11/20/16 18:53 Historian: Patient - History of Present Illness Narrative History of Present Illness (Text): 11/20/16 18:58 A 76 year old male, whose past medical history includes lymphoma s/p chemotherapy, presents to the emergency department complaining of shortness of breath since today. Patient notes associated chest tightness, non-productive cough, and subjective fevers and chills. Patient denies any nausea, vomiting, abdominal pain, headache, dizziness or any other complaints. Oncologist: Dr. Myers Time/Duration: Other (today) Symptom Course: Unchanged Quality: Other Context: Home Past Medical History - Provider Review Nursing Documentation Reviewed: Yes - Past History Past History: Unable to Obtain - Infectious Disease Hx of Infectious Diseases: None - Tetanus Immunization Tetanus Immunization: Unknown - Cardiac Hx Cardiac Disorders: Yes Hx Hypertension: Yes - Pulmonary Hx Respiratory Disorders: Yes Hx Asthma: Yes - Neurological Hx Neurological Disorder: Yes Hx Transient Ischemic Attacks (TIA): Yes - HEENT Hx HEENT Disorder: Yes (wears glasses) Hx Deafness: Yes ([place], b/l hearing aids) - Renal Hx Renal Disorder: No - Endocrine/Metabolic Hx Endocrine Disorders: Yes Hx Diabetes Mellitus Type 2: Yes - Hematological/Oncological Hx Blood Disorders: Yes Hx Anemia: Yes Hx Cancer: Yes (mantle cell lymphoma "active") - Integumentary Hx Dermatological Disorder: No - Musculoskeletal/Rheumatological Hx Musculoskeletal Disorders: Yes Hx Falls: Yes (recent) Hx Unsteady Gait: Yes (cane) - Gastrointestinal Hx Gastrointestinal Disorders: No - Genitourinary/Gynecological Hx Genitourinary Disorders: Yes Hx Prostate Problems: Yes (bph, prostectomy) Hx Urinary Tract Infection: Yes - Psychiatric Hx Psychophysiologic Disorder: Yes Hx Anxiety: Yes Hx Substance Use: No - Past Surgical History Past Surgical History: Unable to Obtain - Surgical History Hx Cardiac Catheterization: Yes (angioplasty) Hx Coronary Stent: Yes Hx Orthopedic Surgery: Yes (right thumb) - Anesthesia Hx Anesthesia: Yes Hx Anesthesia Reactions: No Hx Malignant Hyperthermia: No - Suicidal Assessment Feels Threatened In Home Enviroment: No Family/Social History - Physician Review Nursing Documentation Reviewed: Yes Family/Social History: No Known Family HX Smoking Status: Never Smoked Hx Alcohol Use: No Hx Substance Use: No Hx Substance Use Treatment: No Allergies/Home Meds Allergies/Adverse Reactions: Allergies azithromycin Allergy (Severe, Verified 07/28/16 12:15) ANGIOEDEMA erythromycin base Allergy (Severe, Verified 07/28/16 12:15) ANGIOEDEMA Penicillins Allergy (Severe, Verified 07/28/16 12:15) ANAPHYLAXIS cephalexin monohydrate [From Keflex] Allergy (Intermediate, Verified 07/28/16 12 :15) RASH gabapentin Allergy (Intermediate, Verified 07/28/16 12:15) RASH pregabalin Allergy (Intermediate, Verified 07/28/16 12:15) RASH Sulfa (Sulfonamide Antibiotics) Allergy (Intermediate, Verified 07/28/16 12:15) RASH nitro paste Allergy (Intermediate, Uncoded 07/28/16 12:15) DIZZINESS/HYPOTENSION CAUSE HYPOTENSION Imbrovica Allergy (Uncoded 07/29/16 11:47) FEVER Home Medications: Home Meds Medication Instructions Recorded Confirmed Aspirin [Aspirin EC] 81 mg PO DAILY 09/10/15 11/20/16 Levalbuterol [Xopenex] 1.25 mg IH TID 01/31/16 11/20/16 Acetaminophen [Tylenol (Renal)] 650 mg PO Q6 PRN 04/21/16 11/20/16 Metoprolol Tartrate [Lopressor] 25 mg PO HS 04/21/16 11/20/16 Pantoprazole [Protonix EC Tab] 40 mg PO DAILY 04/21/16 11/20/16 Calcium Carbonate/Vitamin D3 600 mg PO DAILY 06/03/16 11/20/16 [Caltrate 600 + D Soft Chew Tab] Magnesium Oxide [Magnesium] 400 mg PO HS 06/03/16 11/20/16 Nortriptyline HCl [Pamelor] 10 mg PO DAILY 06/03/16 11/20/16 Ranolazine [Ranexa] 500 mg PO BID 06/03/16 11/20/16 Silodosin [Rapaflo] 8 mg PO HS 06/03/16 11/20/16 Review of Systems - Physician Review All systems were reviewed & negative as marked: Yes - Review of Systems Constitutional: Fevers, Night Sweats Respiratory: SOB, Cough. absent: Sputum Cardiovascular: Chest Pain Gastrointestinal: absent: Abdominal Pain, Nausea, Vomiting Neurological: absent: Headache, Dizziness Physical Exam Vital Signs Temp Pulse Resp BP Pulse Ox 11/20/16 21:08 101.7 F H 11/20/16 20:39 101.7 F H 11/20/16 19:07 99.2 F 89 23 160/83 H 98 11/20/16 18:50 18 92 L Appearance: Positive for: Non-Toxic, Comfortable, Cachectic Pain Distress: None Mental Status: Positive for: Alert and Oriented X 3 - Systems Exam Head: Present: Atraumatic, Normocephalic Pupils: Present: PERRL Extroacular Muscles: Present: EOMI Conjunctiva: Present: Normal Mouth: Present: Moist Mucous Membranes Pharnyx: No: ERYTHEMA, EXUDATE Neck: Present: Normal Range of Motion Respiratory/Chest: Present: Good Air Exchange, Wheezes. No: Respiratory Distress, Accessory Muscle Use Cardiovascular: Present: Regular Rate and Rhythm, Normal S1, S2. No: Murmurs Abdomen: Present: Normal Bowel Sounds. No: Tenderness, Distention, Peritoneal Signs Back: Present: Normal Inspection Upper Extremity: Present: Normal Inspection. No: Cyanosis, Edema Lower Extremity: Present: Normal Inspection, Other (R leg swollen as compared to L). No: Edema Neurological: Present: GCS=15, CN II-XII Intact, Speech Normal Skin: Present: Warm, Dry, Normal Color. No: Rashes Psychiatric: Present: Alert, Oriented x 3, Normal Insight, Normal Concentration Medical Decision Making ED Course and Treatment: 11/20/16 18:58 Impression: A 76 year old male with shortness of breath. Patient notes chest tightness, nonproductive cough and subjective fevers and chills. Differential dx includes but not limited: acs vs pna vs ptx vs pe. Plan: --nebs -- Chest xray -- EKG -- Labs -- Blood and Urine culture -- Urinalysis --ultrasound R leg -- Reassess and disposition Progress Notes: 11/20/16 19:21 EKG shows NSR at 91bpm with non specific t wave changes, unchanged from prior on 11/06/16. Cxray grossly unchanged. 11/20/16 20:25 U/S R leg negative for dvt Report Date: 11/20/16 20:38 EXAM: CT Angiography Chest With Intravenous Contrast Dictated and Authenticated by: Teresa Rangel MD IMPRESSION: 1. Enlarged mediastinal and hilar lymph nodes. 2. No central pulmonary embolism. Proximal branch evaluation is limited due to motion artifact. No gross evidence of proximal branch embolism. 11/20/16 20:40 Rectal temp was elevated. 11/20/16 20:[address] Myers and requesting remote tele admission for fever, hypoxia and shortness of breath. Requesting ID consult, cardiology, and pulmonary which was placed. Broad spectrum antibiotics started. - Lab Interpretations Lab Results: 11/20/16 18:49 11/20/16 18:49 Lab Results 11/20/16 19:40: PT 12.3 H, INR 1.14 H, APTT 33.2 H, D-Dimer, Quantitative 0.85 H 11/20/16 19:27: Influenza Typ A,B (EIA) Negative for flu a/b 11/20/16 19:27: pCO2 33 L, pO2 70.0 L, HCO3 22.4, ABG pH 7.44, ABG Total CO2 23.4, ABG O2 Saturation 97.5, ABG O2 Content 13.7 L, ABG Base Excess -1.3, ABG Hemoglobin 10.3 L, ABG Carboxyhemoglobin 2.6 H, POC ABG HHb (Measured) 2.4, ABG Methemoglobin 0.8, ABG O2 Capacity 14.1 L, Hgb O2 Saturation 94.2 L, FiO2 21.0 11/20/16 18:49: Sodium 136, Chloride 100, Potassium 4.3, Carbon Dioxide 24, Anion Gap 16, BUN 16, Creatinine 1.1, Est GFR ( Amer) > 60, Est GFR (Non- Af Amer) > 60, Random Glucose 123 H, Calcium 8.9, Total Bilirubin 1.5 H, AST 29 , ALT 30, Alkaline Phosphatase 130 H, Lactate Dehydrogenase 1021 H, Total Creatine Kinase 34 L, Troponin I < 0.01, NT-Pro-B Natriuret Pep 219, Total Protein 7.4, Albumin 4.1, Globulin 3.3, Albumin/Globulin Ratio 1.2 11/20/16 18:49: pO2 47, VBG pH 7.40, VBG pCO2 41.0, VBG HCO3 25.4, VBG Total CO2 26.7, VBG O2 Sat (Calc) 85.9 H, VBG Base Excess 0.5, VBG Potassium 4.3, Sodium 136.0, Chloride 103.0, Glucose 127 H, Lactate 1.6, FiO2 21.0, Venous Blood Potassium 4.3 11/20/16 18:49: WBC 4.3 L D, RBC 4.04, Hgb 11.0 L, Hct 33.7 L, MCV 83.4, MCH 27.2, MCHC 32.6, RDW 15.7 H, Plt Count 165, MPV 9.2, Gran % 52.3, Lymph % (Auto ) 29.3, [place] % (Auto) 15.0 H, Eos % (Auto) 2.5, Baso % (Auto) 0.9, Gran # 2.26, Lymph # 1.3, [place] # 0.7 H, Eos # 0.1, Baso # 0.04 I have reviewed the lab results: Yes - RAD Interpretation Radiology Orders: 11/20/16 18:58 CHEST PORTABLE [RAD] Stat 11/20/16 19:08 DUPLEX LOWER EXTRM VEIN RIGHT [US] Stat 11/20/16 19:24 ANGIO CHEST PE PROTOCOL [CT] Stat - Medication Orders Current Medication Orders: Meropenem 1g/NS 100mL IVPB (Meropenem 1g/Ns 100ml Ivpb) 1 gm in 100 mls @ 100 mls/hr IVPB STAT STA PRN Reason: Protocol Stop: 11/20/16 21:46 Last Admin: 11/20/16 21:08 Dose: 100 mls/hr Vancomycin HCl (Vancomycin 1gm) 1 gm in 250 mls @ 167 mls/hr IVPB STAT STA PRN Reason: Protocol Stop: 11/20/16 22:16 Sodium Chloride (Sodium Chloride 0.9%) 500 mls @ 999 mls/hr IV .Q31M STA Stop: 11/20/16 21:19 Last Admin: 11/20/16 20:59 Dose: 999 mls/hr Discontinued Medications Acetaminophen (Tylenol 325mg Tab) Confirm Administered Dose 650 mg .ROUTE .STK- MED ONE Stop: 11/20/16 21:03 Last Admin: 11/20/16 21:08 Dose: 650 mg Iohexol (Omnipaque 350 100 Ml) Confirm Administered Dose 350 mg .ROUTE .STK-MED ONE Stop: 11/20/16 19:30 Levalbuterol HCl (Xopenex) 1.25 mg IH STAT STA Stop: 11/20/16 19:17 Last Admin: 11/20/16 19:24 Dose: 1.25 mg - Scribe Statement The provider has reviewed the documentation as recorded by the Jadielibyovana Mccoy Provider Scribe Attestation: All medical record entries made by the Scribe were at my direction and personally dictated by me. I have reviewed the chart and agree that the record accurately reflects my personal performance of the history, physical exam, medical decision making, and the department course for this patient. I have also personally directed, reviewed, and agree with the discharge instructions and disposition. Disposition/Present on Arrival - Present on Arrival Any Indicators Present on Arrival: No History of DVT/PE: No History of Uncontrolled Diabetes: No Urinary Catheter: No History Surgical Site Infection Following: None - Disposition Have Diagnosis and Disposition been Completed?: Yes Diagnosis: Fever Disposition: HOSPITALIZED Disposition Time: 20:46 Patient Plan: Observation Patient Problems: Current Active Problems Problem Status Onset Fever Acute Condition: FAIR Referrals: Lucia SPENCE,MD [place] [Primary Care Provider] - Follow up with primary
[2016-11-20] MEDS ORDERED: Albuterol-Ipratrop 3 mg / 0.5 (3 ml) UD IH STA (19:08)
[2016-11-20] MEDS ORDERED: Levalbuterol 1.25 MG/3 ML Inhal Soln UD IH STA (19:16)
[2016-11-20 19:29] LABS: ARTERIAL BLOOD GAS HCO3 22.4 mmol/L (21-28); ARTERIAL BLOOD GAS O2 CAPACITY 14.1 mL/dl (16-24); ARTERIAL BLOOD GAS O2 CONTENT 13.7 ML/dl (15-23); ARTERIAL BLOOD GAS PH 7.44 (7.35-7.45); ARTERIAL BLOOD HGB O2 SAT 94.2 % (95.0-98.0); CARBOXYHEMOGLOBIN 2.6 % (0.5-1.5); HHB 2.4 % (0-5); METHEMOGLOBIN 0.8 % (0.0-3.0)
[2016-11-20] MEDS ORDERED: Iohexol 350 MG/100 ML VIAL ONE (19:29)
[2016-11-20 19:31] LABS: BASO # 0.04 K/mm3 (0.0-2.0); BASO % 0.9 % (0.0-3.0); EOS # 0.1 (0.0-0.7); EOS % 2.5 % (1.5-5.0); GRAN # 2.26 (1.4-6.5); GRAN % 52.3 % (50.0-68.0); HEMATOCRIT 33.7 % (42.0-52.0); LYMPH # 1.3 (1.2-3.4); LYMPH % 29.3 % (22.0-35.0); MEAN CELL VOLUME 83.4 fl (80.0-105.0); MEAN CORPUSCULAR HEMOGLOBIN 27.2 pg (25.0-35.0); MEAN CORPUSCULAR HGB CONC 32.6 g/dl (31.0-37.0); MEAN PLATELET VOLUME 9.2 fl (7.0-11.0); MONO # 0.7 (0.1-0.6); RED CELL DISTRIBUTION WIDTH 15.7 % (11.5-14.5); WHITE BLOOD COUNT 4.3 10^3/ul (4.5-11.0)
[2016-11-20 19:33] LABS: VENOUS BLOOD GAS BASE EXCESS 0.5 mmol/L (0.0-2.0)
[2016-11-20 19:43] LABS: ALB/GLOB RATIO 1.2 (1.1-1.8); ALKALINE PHOSPHATASE 130 U/L (38-126); ALT/SGPT 30 U/L (7-56); AST/SGOT 29 U/L (17-59); BILIRUBIN,TOTAL 1.5 mg/dL (0.2-1.3); BLOOD UREA NITROGEN 16 mg/dL (7-21); CALCIUM 8.9 mg/dL (8.4-10.5); CARBON DIOXIDE 24 mmol/L (21-33); CHLORIDE 100 mmol/L (98-107); GFR AFRICAN-AMERICAN > 60; GLUCOSE,RANDOM 123 mg/dL (70-110); POTASSIUM 4.3 mmol/L (3.6-5.0); SODIUM 136 mmol/L (132-148); TOTAL PROTEIN 7.4 g/dL (5.8-8.3)
[2016-11-20 19:57] LABS: TROPONIN I < 0.01 ng/mL
[2016-11-20 20:06] LABS: D DIMER 0.85 mg/L FEU (0-0.50); INR 1.14 (0.93-1.08); PARTIAL THROMBOPLASTIN TIME 33.2 Seconds (23.7-30.8)
[2016-11-20] MEDS ORDERED: Vancomycin 1gm in NS 250ml 1 GM/250 ML BAG IVPB STA (20:47)
[2016-11-20] MEDS ORDERED: Meropenem 1g/NS 100mL IVPB 1 GM/100 ML PIGGYBACK IVPB STA (20:47)
[2016-11-20] MEDS ORDERED: Sodium Chloride 0.9% 500 ML IV STA (20:49)
[2016-11-21 02:33] VITALS: BMI 27.2
[2016-11-21] MEDS: Meropenem 1g/NS 100mL IVPB 1 GM/100 ML PIGGYBACK IVPB SCH ×2 (08:36→17:56)
[2016-11-21] MEDS: Vancomycin 1gm in NS 250ml 1 GM/250 ML BAG IVPB SCH ×2 (09:12→17:55)
--- NOTE | 2016-11-21 09:24 | US ---
PROCEDURE: Right lower extremity venous US HISTORY: Leg pain and swelling. Evaluate for DVT. PHYSICIAN(S): Je Horne M.D. TECHNIQUE: Duplex sonography and color-flow Doppler with graded compression were used to evaluate the deep venous system of the right lower extremity. FINDINGS: The visualized deep venous system of the right lower extremity is sonographically normal and compressible. Normal waveforms and augmentation are seen. There is no sonographic evidence for deep venous thrombosis in the visualized segments of the right lower extremity. IMPRESSION: 1. No sonographic evidence for deep venous thrombosis in the visualized segments of the right lower extremity.
--- NOTE | 2016-11-21 09:26 | CP.PCM.CON ---
History of Present Illness - History of Present Illness History of Present Illness: consultation for evaluation of SOB , hx of CAD / stenting of LAD x 2 and R PLV HPI: with the sucker was Dorcas is a 76-year-old male with past medical history significant for mantle cell lymphoma status post chemoradiation who is in remission hypertension hyperlipidemia coronary artery disease status post PTCA stenting of left anterior descending artery that was initially done in 2012 at [facility]. He was subsequently followed with a subsequent intervention of the mid LAD with a drug-eluting stent. He had undergone a stress test 6 months ago at [facility] and had reevaluation of her coronaries with PTCA stenting of the right PLV branch. To 3 months ago he had undergone repeat evaluation and had normal nuclear stress test and normal echocardiogram. He was recently here in [facility] 2 weeks ago for symptoms of shortness of breath and cough for which she was discharged home with the diagnosis of acute bronchitis and was kept on p.o. antibiotics. After finishing the course of antibiotics he continued to have worsening of his symptoms for which he has been readmitted. He describes having shortness of breath associated with cough along with chills and fevers. He was initiated on IV antibiotic with slight improvement in his symptoms. Review of Systems - Review of Systems All systems: reviewed and no additional remarkable complaints except - Constitutional Constitutional: As Per HPI - EENT Eyes: As Per HPI Ears: As Per HPI Nose/Mouth/Throat: As Per HPI - Cardiovascular Cardiovascular: As Per HPI - Respiratory Respiratory: As Per HPI - Gastrointestinal Gastrointestinal: As Per HPI - Genitourinary Genitourinary: As Per HPI - Reproductive: Male Reproductive:Male: As Per HPI - Musculoskeletal Musculoskeletal: As Per HPI - Integumentary Integumentary: As Per HPI - Neurological Neurological: As Per HPI - Psychiatric Psychiatric: As Per HPI - Endocrine Endocrine: As Per HPI - Hematologic/Lymphatic Hematologic: As Per HPI Past Patient History - Infectious Disease Hx of Infectious Diseases: None - Tetanus Immunizations Tetanus Immunization: Unknown - Past Medical History & Family History Past Medical History?: Yes Pertinent Family History: +ve for HTN and DM - Past Social History Smoking Status: Never Smoked - CARDIAC Hx Cardiac Disorders: Yes Hx Hypercholesterolemia: Yes - PULMONARY Hx Respiratory Disorders: Yes Hx Asthma: Yes Hx Bronchitis: Yes Hx Pneumonia: Yes - NEUROLOGICAL Hx Neurological Disorder: Yes - HEENT Hx HEENT Problems: Yes (wears glasses) Hx Deafness: Yes ([place], b/l hearing aids) - RENAL Hx Chronic Kidney Disease: No - ENDOCRINE/METABOLIC Hx Endocrine Disorders: Yes Hx Diabetes Mellitus Type 2: Yes - HEMATOLOGICAL/ONCOLOGICAL Hx Blood Disorders: Yes Hx Anemia: Yes Hx Cancer: Yes (mantle cell lymphoma "active") - INTEGUMENTARY Hx Dermatological Problems: No - MUSCULOSKELETAL/RHEUMATOLOGICAL Hx Musculoskeletal Disorders: Yes Hx Falls: Yes - GASTROINTESTINAL Hx Gastrointestinal Disorders: No - GENITOURINARY/GYNECOLOGICAL Hx Genitourinary Disorders: Yes Hx Prostate Problems: Yes (bph, prostectomy) Hx Urinary Tract Infection: Yes - PSYCHIATRIC Hx Psychophysiologic Disorder: No Hx Substance Use: No - SURGICAL HISTORY Hx Surgeries: Yes Hx Cardiac Catheterization: Yes (angioplasty 4 stents) Hx Coronary Stent: Yes Hx Orthopedic Surgery: Yes (right thumb) - ANESTHESIA Hx Anesthesia: Yes Hx Anesthesia Reactions: No Hx Malignant Hyperthermia: No Meds Allergies/Adverse Reactions: Allergies Allergy/AdvReac Type Severity Reaction Status Date / Time azithromycin Allergy Severe ANGIOEDEMA Verified 07/28/16 12:15 erythromycin base Allergy Severe ANGIOEDEMA Verified 07/28/16 12:15 Penicillins Allergy Severe ANAPHYLAXIS Verified 07/28/16 12:15 cephalexin monohydrate Allergy Intermediate RASH Verified 07/28/16 12:15 [From Keflex] gabapentin Allergy Intermediate RASH Verified 07/28/16 12:15 pregabalin Allergy Intermediate RASH Verified 07/28/16 12:15 Sulfa (Sulfonamide Allergy Intermediate RASH Verified 07/28/16 12:15 Antibiotics) nitro paste Allergy Intermediate DIZZINESS/H Uncoded 07/28/16 12:15 YPOTENSION Imbrovica Allergy FEVER Uncoded 07/29/16 11:47 - Medications Medications: Current Medications Meropenem 1g/NS 100mL IVPB (Meropenem 1g/Ns 100ml Ivpb) 1 gm in 100 mls @ 100 mls/hr IVPB Q12H ALEX PRN Reason: Protocol Last Admin: 11/21/16 08:36 Dose: 100 mls/hr Vancomycin HCl (Vancomycin 1gm) 1 gm in 250 mls @ 167 mls/hr IVPB Q12H ALEX PRN Reason: Protocol Last Admin: 11/21/16 09:12 Dose: 167 mls/hr Physical Exam - Constitutional Appears: Well - Head Exam Head Exam: ATRAUMATIC, NORMAL INSPECTION, NORMOCEPHALIC - Eye Exam Eye Exam: EOMI, Normal appearance, PERRL Pupil Exam: NORMAL ACCOMODATION, PERRL - ENT Exam ENT Exam: Mucous Membranes Moist, Normal Exam - Neck Exam Neck exam: Positive for: Normal Inspection - Respiratory Exam Respiratory Exam: Wheezes, NORMAL BREATHING PATTERN Additional comments: Bronchial BS at right lung base - Cardiovascular Exam Cardiovascular Exam: REGULAR RHYTHM, RRR, +S1, +S2, Systolic Murmur - GI/Abdominal Exam GI & Abdominal Exam: Normal Bowel Sounds, Soft. absent: Tenderness - Extremities Exam Extremities exam: Positive for: normal inspection - Back Exam Back exam: NORMAL INSPECTION - Neurological Exam Neurological exam: Alert, CN II-XII Intact, Normal Gait, Oriented x3, Reflexes Normal - Psychiatric Exam Psychiatric exam: Normal Affect, Normal Mood - Skin Skin Exam: Dry, Intact, Normal Color, Warm Results - Vital Signs Recent Vital Signs: Last Vital Signs Temp 97.9 F 11/21/16 01:40 Pulse 77 11/21/16 06:00 Resp 19 11/21/16 01:40 BP 106/59 L 11/21/16 01:40 Pulse Ox 98 11/20/16 19:07 - Labs Result Diagrams: 11/22/16 14:00 11/22/16 14:00 Assessment & Plan (1) CAD (coronary artery disease) Assessment and Plan: stable sx most likely pulmonary in nature cont dapt , statins and bb Status: Acute (2) Asthma exacerbation Assessment and Plan: 2' to bronchitis ? fungal Status: Acute (3) Bronchospasm Assessment and Plan: steroids bronchodilators Status: Acute (4) Cough Status: Acute (5) Diabetes mellitus Status: Acute (6) Dyslipidemia Assessment and Plan: cont statins Status: Acute (7) HTN (hypertension) Assessment and Plan: cont BB Status: Acute (8) Lymphoma Status: Acute (9) SOB (shortness of breath) Status: Acute
--- NOTE | 2016-11-21 10:01 | CT ---
PROCEDURE: CT Chest with contrast (Pulmonary Angiogram) HISTORY: shortness of breath COMPARISON: None available. TECHNIQUE: Axial computed tomography images were obtained of the chest in the pulmonary arterial phase of enhancement. Coronal and sagittal reformatted images were created and reviewed. Intravenous contrast dose: 100 mL Omnipaque Radiation dose: Total exam DLP = 343.13 mGy-cm. This CT exam was performed using one or more of the following dose reduction techniques: Automated exposure control, adjustment of the mA and/or kV according to patient size, and/or use of iterative reconstruction technique. FINDINGS: PULMONARY ARTERIES: No filling defects in the pulmonary arteries to suggest acute pulmonary embolism. AORTA: The aorta is normal in caliber. There atherosclerotic aortic arch calcifications. LUNGS: There is a 5 mm noncalcified nodule in the peripheral right upper lobe (series 4, image 32). There is bibasilar atelectasis. No focal consolidation. PLEURAL SPACES: No effusion or pneuomothorax. HEART: The heart is normal in size. No pericardial effusion. There are atherosclerotic calcifications in the coronary arteries. LYMPH NODES: There are prominent mediastinal lymph nodes. No pathologic lymphadenopathy. BONES, CHEST WALL: There is diffuse bone demineralization and mild multilevel degenerative disc disease. No fracture or destructive lesion OTHER FINDINGS: There is mild thickening of the adrenal glands without discrete nodule. There is a small sliding hiatal hernia. IMPRESSION: 1. No evidence of acute pulmonary embolism, aortic aneurysm or aortic dissection. 2. 5 mm nodule in the right upper lobe. A follow-up CT scan 6-12 months interval is recommended to assess stability. 3. Prominent mediastinal lymph nodes are likely reactive in etiology. A preliminary report was provided by [facility].
--- NOTE | 2016-11-21 11:02 | RAD ---
HISTORY: sob COMPARISON: 11/06/2016 FINDINGS: The right MediPort terminates at the cavoatrial junction. LUNGS: There are low lung volumes. There is mild pulmonary venous congestion. No focal consolidation. PLEURA: No significant pleural effusion identified, no pneumothorax apparent. CARDIOVASCULAR: The heart is normal in size. Atherosclerotic aortic arch calcifications are present. There are multiple surgical clips in the right hilum. OSSEOUS STRUCTURES: No significant abnormalities. VISUALIZED UPPER ABDOMEN: Normal. OTHER FINDINGS: None. IMPRESSION: No acute findings.
[2016-11-21] MEDS ORDERED: CHOLECALCIFEROL PO SCH (11:30)
[2016-11-21] MEDS ORDERED: CALCIUM CARBONATE PO SCH (11:30)
[2016-11-21] MEDS: Levalbuterol 1.25 MG/3 ML Inhal Soln UD IH SCH ×3 (11:56→19:34)
[2016-11-21] MEDS: Magnesium Oxide 400 mg Tab UD PO SCH (11:57)
--- NOTE | 2016-11-21 12:08 | CP.PCM.CON ---
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 The patient is now [place] [facility] [place] increasing cough, chest tightness, difficulty breathing, fever and chills for the past couple of days. He denies headache or dizziness, no rhinorrhea, no muscle aches, no sore throat, no nausea or vomiting, no diarrhea, no abdominal pain, no dysuria. Infectious Diseases consult is requested to further evaluate and manage. Review of Systems - Review of Systems All systems: reviewed and no additional remarkable complaints except (as per HPI ) Past Patient History - Infectious Disease Hx of Infectious Diseases: None - Tetanus Immunizations Tetanus Immunization: Unknown - Past Medical History & Family History Past Medical History?: Yes - Past Social History Smoking Status: Never Smoked - CARDIAC Hx Cardiac Disorders: Yes Hx Hypertension: Yes - PULMONARY Hx Respiratory Disorders: Yes Hx Asthma: Yes - NEUROLOGICAL Hx Neurological Disorder: Yes Hx Transient Ischemic Attacks (TIA): Yes - HEENT Hx HEENT Problems: Yes (wears glasses) Hx Deafness: Yes ([place], b/l hearing aids) - RENAL Hx Chronic Kidney Disease: No - ENDOCRINE/METABOLIC Hx Endocrine Disorders: Yes Hx Diabetes Mellitus Type 2: Yes - HEMATOLOGICAL/ONCOLOGICAL Hx Blood Disorders: Yes Hx Anemia: Yes Hx Cancer: Yes (mantle cell lymphoma "active") - INTEGUMENTARY Hx Dermatological Problems: No - MUSCULOSKELETAL/RHEUMATOLOGICAL Hx Musculoskeletal Disorders: Yes Hx Falls: Yes (recent) Hx Unsteady Gait: Yes (cane) - GASTROINTESTINAL Hx Gastrointestinal Disorders: No - GENITOURINARY/GYNECOLOGICAL Hx Genitourinary Disorders: Yes Hx Prostate Problems: Yes (bph, prostectomy) Hx Urinary Tract Infection: Yes - PSYCHIATRIC Hx Psychophysiologic Disorder: Yes Hx Anxiety: Yes Hx Substance Use: No - SURGICAL HISTORY Hx Cardiac Catheterization: Yes (angioplasty) Hx Coronary Stent: Yes Hx Orthopedic Surgery: Yes (right thumb) - ANESTHESIA Hx Anesthesia: Yes Hx Anesthesia Reactions: No Hx Malignant Hyperthermia: No Meds Allergies/Adverse Reactions: Allergies Allergy/AdvReac Type Severity Reaction Status Date / Time azithromycin Allergy Severe ANGIOEDEMA Verified 07/28/16 12:15 erythromycin base Allergy Severe ANGIOEDEMA Verified 07/28/16 12:15 Penicillins Allergy Severe ANAPHYLAXIS Verified 07/28/16 12:15 cephalexin monohydrate Allergy Intermediate RASH Verified 07/28/16 12:15 [From Keflex] gabapentin Allergy Intermediate RASH Verified 07/28/16 12:15 pregabalin Allergy Intermediate RASH Verified 07/28/16 12:15 Sulfa (Sulfonamide Allergy Intermediate RASH Verified 07/28/16 12:15 Antibiotics) nitro paste Allergy Intermediate DIZZINESS/H Uncoded 07/28/16 12:15 YPOTENSION [place] Allergy FEVER Uncoded 07/29/16 11:47 Physical Exam - Constitutional Appears: Non-toxic, No Acute Distress - Head Exam Head Exam: NORMAL INSPECTION - ENT Exam ENT Exam: Mucous Membranes Moist - Neck Exam Neck exam: Negative for: Meningismus - Respiratory Exam Respiratory Exam: Decreased Breath Sounds - Cardiovascular Exam Cardiovascular Exam: +S1, +S2 - GI/Abdominal Exam GI & Abdominal Exam: Soft. absent: Tenderness Results - Vital Signs Recent Vital Signs: Last Vital Signs Temp 102.2 F H 11/20/16 22:09 Pulse 89 11/20/16 19:07 Resp 23 11/20/16 19:07 BP 160/83 H 11/20/16 19:07 Pulse Ox 98 11/20/16 19:07 - Labs Result Diagrams: 11/20/16 18:49 11/20/16 18:49 Assessment & Plan - Assessment and Plan (Free Text) Plan: Assessment Consider sepsis due to acute bronchitis, R/O systemic viral illness history of UTI with E. 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 Myers
[2016-11-21] MEDS: guaiFENesin DM 100 mg-10 mg/5 ml UD PO PRN ×2 (12:13→19:51)
[2016-11-21] MEDS: [UNRECOGNIZED DRUG - MIXTURE] PO SCH (14:00)
[2016-11-21] MEDS: Nystatin-Triamcinolone Cream(30 gm) TOP SCH (17:57)
[2016-11-21] MEDS: RAPAFLO 8 MG PO SCH (21:00)
[2016-11-21] MEDS: MethylPREDNISolone 40 mg Vial IVP SCH (22:56)
--- NOTE | 2016-11-21 22:58 | CARD ---
APPROVED REPORT EKG Measurement Heart [id number] <Conclusion> Normal sinus rhythm Nonspecific T wave abnormality Abnormal ECG
[2016-11-22] MEDS: guaiFENesin DM 100 mg-10 mg/5 ml UD PO PRN ×2 (04:25→11:52)
[2016-11-22] MEDS: Vancomycin 1gm in NS 250ml 1 GM/250 ML BAG IVPB SCH (05:01)
--- NOTE | 2016-11-22 05:15 | CON ---
DATE: 11/21/2016 PULMONARY CONSULTATION REFERRING PHYSICIAN: Dr. Myers. REASON FOR CONSULTATION: Cough and shortness of breath. HISTORY OF PRESENT ILLNESS: This is a 76-year-old gentleman with mantle cell lymphoma, history of chemotherapy, history of lung cancer, requiring wedge resection in the remote past; coronary artery disease, history of coronary stent, BPH, hyperlipidemia, recurrent UTI, recurrent bronchitis, recently treated with broad-spectrum antibiotics for pneumonia. He presented to the emergency room with chills, fever, shortness of breath. Presently, he has cough and shortness breath. No hemoptysis. No hematemesis. No hematuria. No diarrhea reported. Admitted to have snoring, may have daytime sleepiness. PAST MEDICAL HISTORY: Mantle cell lymphoma, been on chemotherapy; history of lung cancer, requiring wedge resection; coronary artery disease with the stent, BPH, dyslipidemia, recurrent UTI, recurrent pneumonia, diabetes, history of TIAs, anxiety disorder. ALLERGIES: ALLERGIES TO MULTIPLE MEDICATIONS INCLUDING ZITHROMAX, ERYTHROMYCIN, PENICILLIN, KEFLEX, GABAPENTIN, SULFA, NITROPASTE, AND IMBRUVICA. SOCIAL HISTORY: Nonsmoker and nondrinker. FAMILY HISTORY: No significant cardiopulmonary disease reported. MEDICATIONS: He is on Ecotrin 81 mg daily, calcium carbonate, vitamin D3, Lidex 0.05% cream effected area twice a day, Lipitor 20 mg daily, metoprolol tartrate 12.5 mg twice a day, magnesium oxide 400 mg daily, he is on meropenem 1 g IV q.12 hours, Pamelor 10 mg daily, Plavix 75 mg daily, Robitussin DM 5 mL q. 4 hours p.r.n., Tylenol p.r.n. basis, vancomycin 1 g IV q.12 hours, Xopenex inhaler three times a day, and Zofran 4 mg q. 6 hours p.r.n. REVIEW OF SYSTEMS: No headache. Did have rhinitis, cough, wheezing, clear sputum. No nausea, no vomiting, diarrhea, leg pain, or leg swelling. PHYSICAL EXAMINATION: GENERAL: Sitting up in a chair, mild distress secondary to cough and shortness of breath. VITAL SIGNS: Temperature 98, heart rate 76, respiratory rate is 20, blood pressure 112/64, and pulse ox is 96% on 2 L nasal cannula. HEENT: Moist mucous membrane. Small oral cavity. NECK: Supple. No JVD. LUNGS: Have few crackles, expiratory wheezing. HEART: S1 and S2. ABDOMEN: Soft and nontender. No organomegaly. EXTREMITIES: No edema. NEUROLOGIC: Awake, alert, follows simple command. LABORATORY DATA: Shows CAT scan of the chest done, which shows no evidence of pulmonary embolism, 5 mm nodule in the right upper lobe, prominent mediastinal lymph node, luckily reactive in etiology. IMPRESSION AND PLAN: Acute bronchitis, probably has a component of septal lung disease; history of mantle cell carcinoma, been on chemotherapy; history of lung cancer, requiring wedge resection in the remote past; cardiomyopathy with coronary artery disease, requiring coronary stent; also has a history of diabetes. Agree with the present management. We will add Pulmicort inhaler twice a day, give him Solu-Medrol 20 mg q.12 hours. Continue broad-spectrum antibiotics as per the infectious disease. Gastric prophylaxis, deep venous thrombosis prophylaxis, fall precaution. We will suggest outpatient pulmonary function test and attended sleep study. Thank you and we will follow with you. Thanh Duffy MD
[2016-11-22] MEDS: Meropenem 1g/NS 100mL IVPB 1 GM/100 ML PIGGYBACK IVPB SCH ×2 (06:37→17:34)
[2016-11-22] MEDS: Levalbuterol 1.25 MG/3 ML Inhal Soln UD IH SCH ×3 (07:50→19:38)
--- NOTE | 2016-11-22 11:18 | CP.PCM.PN ---
Subjective - Date & Time of Evaluation Date of Evaluation: 11/22/16 Time of Evaluation: 11:18 - Subjective Subjective: feeling improved febrile overnight Objective - Vital Signs/Intake and Output Vital Signs (last 24 hours): Temp Pulse Resp BP Pulse Ox 97.7 F 77 19 145/80 96 11/22/16 05:59 11/22/16 05:59 11/22/16 05:59 11/22/16 05:59 11/22/16 05:59 Intake and Output: 11/22/16 11/22/16 06:59 18:59 Intake Total 1180 Balance 1180 - Medications Medications: Current Medications Acetaminophen (Tylenol 325mg Tab) 650 mg PO Q6H PRN PRN Reason: Pain, Mild (1-3) Last Admin: 11/22/16 04:25 Dose: 650 mg Aspirin (Ecotrin) 81 mg PO DAILY [facility] Last Admin: 11/21/16 11:57 Dose: 81 mg Atorvastatin Calcium (Lipitor) 20 mg PO DIN [facility] Last Admin: 11/21/16 17:53 Dose: 20 mg Clopidogrel Bisulfate (Plavix) 75 mg PO DAILY [facility] Last Admin: 11/21/16 11:57 Dose: 75 mg Doxycycline Hyclate (Doryx) 100 mg PO Q12 [facility] PRN Reason: Protocol Fluocinonide (Lidex 0.05% Cream) 0 gm TOP BID [facility] Last Admin: 11/21/16 17:57 Dose: 1 applic Guaifenesin/Dextromethorphan (Robitussin Dm) 5 ml PO Q4H PRN PRN Reason: Cough Last Admin: 11/22/16 04:25 Dose: 5 ml Home Med (Home Med) 0 unit PO HS [facility] Last Admin: 11/21/16 21:00 Dose: 1 unit Home Med (Home Med) 0 unit PO DAILY [facility] Last Admin: 11/21/16 14:00 Dose: 1 unit Home Med (Home Med) 0 unit PO Q12 [facility] Last Admin: 11/21/16 21:02 Dose: 1 unit Meropenem 1g/NS 100mL IVPB (Meropenem 1g/Ns 100ml Ivpb) 1 gm in 100 mls @ 100 mls/hr IVPB Q12H [facility] PRN Reason: Protocol Last Admin: 11/22/16 06:37 Dose: 100 mls/hr Levalbuterol HCl (Xopenex) 1.25 mg IH TIDRESP [facility] Last Admin: 11/22/16 07:50 Dose: 1.25 mg Magnesium Oxide (Mag-Ox) 400 mg PO DAILY [facility] Last Admin: 11/21/16 11:57 Dose: 400 mg Methylprednisolone (Solu-Medrol) 20 mg IVP Q12 [facility] Last Admin: 11/21/16 22:56 Dose: 20 mg Metoprolol Tartrate (Lopressor) 12.5 mg PO BID [facility] Last Admin: 11/21/16 17:54 Dose: 12.5 mg Nortriptyline HCl (Pamelor) 10 mg PO DAILY [facility] Last Admin: 11/21/16 11:57 Dose: 10 mg Nystatin/Triamcinolone Acetonide (Nystatin/Triamcinolone Cream) 0 ea TOP BID [facility] Last Admin: 11/21/16 17:57 Dose: 1 applic Ondansetron HCl (Zofran Inj) 4 mg IVP Q6H PRN PRN Reason: Nausea/Vomiting - Labs Labs: PT 12.3 Seconds (9.9-11.8) H 11/20/16 19:40 INR 1.14 (0.93-1.08) H 11/20/16 19:40 APTT 33.2 Seconds (23.7-30.8) H 11/20/16 19:40 Assessment and Plan (1) CAD (coronary artery disease) Assessment & Plan: stable cont dapt cont bb cont statins Status: Chronic (2) Asthma exacerbation Assessment & Plan: 2' to bronchitis ? fungal Status: Acute (3) Bronchospasm Status: Acute (4) Cough Status: Acute (5) Dyslipidemia Status: Acute (6) Fever Status: Acute (7) HTN (hypertension) Status: Acute (8) Lymphoma Status: Acute
[2016-11-22] MEDS: Magnesium Oxide 400 mg Tab UD PO SCH (11:52)
[2016-11-22] MEDS: MethylPREDNISolone 40 mg Vial IVP SCH ×2 (11:58→22:27)
[2016-11-22] MEDS: Nystatin-Triamcinolone Cream(30 gm) TOP SCH ×2 (12:04→19:40)
[2016-11-22] MEDS: [UNRECOGNIZED DRUG - MIXTURE] PO SCH (12:06)
[2016-11-22 14:30] LABS: GRAN # 3.09 (1.4-6.5); GRAN % 80.7 % (50.0-68.0); HEMATOCRIT 32.7 % (42.0-52.0); LYMPH # 0.5 (1.2-3.4); LYMPH % 11.7 % (22.0-35.0); MEAN CELL VOLUME 82.4 fl (80.0-105.0); MEAN CORPUSCULAR HGB CONC 32.7 g/dl (31.0-37.0); MEAN PLATELET VOLUME 9.7 fl (7.0-11.0); MONO # 0.3 (0.1-0.6); MONO % 7.6 % (1.0-6.0); RED CELL DISTRIBUTION WIDTH 15.7 % (11.5-14.5); WHITE BLOOD COUNT 3.8 10^3/ul (4.5-11.0)
--- NOTE | 2016-11-22 14:35 | CP.PCM.PN ---
Subjective - Date & Time of Evaluation Date of Evaluation: 11/22/16 Time of Evaluation: 10:50 - Subjective Subjective: Still having cough but feeling better, no fevers overnight, has a little more energy. Objective - Vital Signs/Intake and Output Vital Signs (last 24 hours): Temp Pulse Resp BP Pulse Ox 97.7 F 77 19 145/80 96 11/22/16 05:59 11/22/16 05:59 11/22/16 05:59 11/22/16 05:59 11/22/16 05:59 Intake and Output: 11/22/16 11/22/16 06:59 18:59 Intake Total 1180 Balance 1180 - Medications Medications: Current Medications Acetaminophen (Tylenol 325mg Tab) 650 mg PO Q6H PRN PRN Reason: Pain, Mild (1-3) Last Admin: 11/22/16 04:25 Dose: 650 mg Aspirin (Ecotrin) 81 mg PO DAILY [facility] Last Admin: 11/21/16 11:57 Dose: 81 mg Atorvastatin Calcium (Lipitor) 20 mg PO DIN [facility] Last Admin: 11/21/16 17:53 Dose: 20 mg Clopidogrel Bisulfate (Plavix) 75 mg PO DAILY [facility] Last Admin: 11/21/16 11:57 Dose: 75 mg Doxycycline Hyclate (Doryx) 100 mg PO Q12 [facility] PRN Reason: Protocol Fluocinonide (Lidex 0.05% Cream) 0 gm TOP BID [facility] Last Admin: 11/21/16 17:57 Dose: 1 applic Guaifenesin/Dextromethorphan (Robitussin Dm) 5 ml PO Q4H PRN PRN Reason: Cough Last Admin: 11/22/16 04:25 Dose: 5 ml Home Med (Home Med) 0 unit PO HS [facility] Last Admin: 11/21/16 21:00 Dose: 1 unit Home Med (Home Med) 0 unit PO DAILY [facility] Last Admin: 11/21/16 14:00 Dose: 1 unit Home Med (Home Med) 0 unit PO Q12 [facility] Last Admin: 11/21/16 21:02 Dose: 1 unit Meropenem 1g/NS 100mL IVPB (Meropenem 1g/Ns 100ml Ivpb) 1 gm in 100 mls @ 100 mls/hr IVPB Q12H [facility] PRN Reason: Protocol Last Admin: 11/22/16 06:37 Dose: 100 mls/hr Levalbuterol HCl (Xopenex) 1.25 mg IH TIDRESP [facility] Last Admin: 11/22/16 07:50 Dose: 1.25 mg Magnesium Oxide (Mag-Ox) 400 mg PO DAILY [facility] Last Admin: 11/21/16 11:57 Dose: 400 mg Methylprednisolone (Solu-Medrol) 20 mg IVP Q12 [facility] Last Admin: 11/21/16 22:56 Dose: 20 mg Metoprolol Tartrate (Lopressor) 12.5 mg PO BID [facility] Last Admin: 11/21/16 17:54 Dose: 12.5 mg Nortriptyline HCl (Pamelor) 10 mg PO DAILY [facility] Last Admin: 11/21/16 11:57 Dose: 10 mg Nystatin/Triamcinolone Acetonide (Nystatin/Triamcinolone Cream) 0 ea TOP BID [facility] Last Admin: 11/21/16 17:57 Dose: 1 applic Ondansetron HCl (Zofran Inj) 4 mg IVP Q6H PRN PRN Reason: Nausea/Vomiting - Labs Labs: PT 12.3 Seconds (9.9-11.8) H 11/20/16 19:40 INR 1.14 (0.93-1.08) H 11/20/16 19:40 APTT 33.2 Seconds (23.7-30.8) H 11/20/16 19:40 - Constitutional Appears: Non-toxic, No Acute Distress - Head Exam Head Exam: NORMAL INSPECTION - ENT Exam ENT Exam: Mucous Membranes Moist - Neck Exam Neck Exam: absent: Meningismus - Respiratory Exam Respiratory Exam: Decreased Breath Sounds - Cardiovascular Exam Cardiovascular Exam: +S1, +S2 - GI/Abdominal Exam GI & Abdominal Exam: Soft. absent: Tenderness Assessment and Plan - Assessment and Plan (Free Text) Plan: Assessment Consider sepsis due to acute bronchitis, R/O systemic viral illness history of UTI with E. 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 Myers
[2016-11-22 14:40] LABS: ALB/GLOB RATIO 1.2 (1.1-1.8); ALKALINE PHOSPHATASE 126 U/L (38-126); ALT/SGPT 31 U/L (7-56); AST/SGOT 34 U/L (17-59); BILIRUBIN,TOTAL 0.7 mg/dL (0.2-1.3); BLOOD UREA NITROGEN 19 mg/dL (7-21); CARBON DIOXIDE 24 mmol/L (21-33); CHLORIDE 98 mmol/L (98-107); GFR AFRICAN-AMERICAN > 60; POTASSIUM 4.7 mmol/L (3.6-5.0); SODIUM 134 mmol/L (132-148)
[2016-11-22 14:41] LABS: GLUCOSE,RANDOM 312 mg/dL (70-110)
--- NOTE | 2016-11-22 17:34 | HP ---
The patient was admitted via the emergency room on 11/20/2016. REASON FOR ADMISSION: A 76-year-old gentleman with a history of stage IV mantle cell lymphoma, history of chemotherapy, history of lung cancer requiring wedge resection in the remote past, coronary artery disease, history of coronary artery stent, BPH, hyperlipidemia, recurrent UTI, recurrent bronchitis, recently in the hospital treated with broad-spectrum antibiotics for the pneumonia. He is now admitted with progressive cough, shortness of breath, temperature of 102 in the emergency room. The patient denies any history of hemoptysis or hematemesis. Recently, his spouse had also been sick several weeks ago and he thought that he may have acquired a viral infection and since that was getting better, now he may have acquired a secondary bacterial infection. No hematuria, no diarrhea. The patient does admit to have daytime sleepiness. The pain associated with the coughing in the rib cage has progressively worsened over the last several days. PAST MEDICAL HISTORY: Significant for mantle cell lymphoma for the past 8 years, had been initially on high-dose therapy and then switched over to combination of bendamustine and Velcade, then was kept on Revlimid and then more recently, he was on ibrutinib and Rituxan and since his PET scans had improved and he was having side effects, it was decided to hold off on the treatments and his last PET scan in September had shown significant resolution of his disease, which was in retroperitoneal and inguinal areas and we have decided to electively wait and watch and see how things proceed. 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 ALLERGIES: THE PATIENT HAS MULTIPLE ALLERGIES TO MANY MEDICINES INCLUDING ZITHROMAX, ERYTHROMYCIN, PENICILLIN, KEFLEX, GABAPENTIN, SULFA, NITRO PASTE, AND IMBRUVICA. SOCIAL HISTORY: The patient is a nonsmoker and nondrinker. FAMILY HISTORY: There is no significant history of cancer, but there is a history of coronary artery disease in the family. HOME MEDICATIONS: The patient's medications include Ecotrin 81 mg, calcium carbonate, vitamin D3, Lidex 0.05% cream to affected areas twice a day, Lipitor 20 mg daily, metoprolol 12.5 mg twice a day, magnesium oxide 400 mg daily, Tylenol p.r.n. The patient is also on Xopenex inhaler 3 times day. He has Zofran to take at home p.r.n. for nausea and as far as his medications from home are concerned, the patient takes his Ranexa and Rapaflo at home along with Pamelor and Plavix. The patient has been taking Robitussin DM q. 4 h p.r.n. for his cough. REVIEW OF SYSTEMS: The patient has been having progressive nonproductive cough. Cough is in spasms at times lasting several minutes and he has now developed ribcage pain from the intractable coughing. No headache. Does have rhinitis. He has no nausea, vomiting, diarrhea, leg pain or leg swelling. PHYSICAL EXAMINATION: GENERAL: The patient is awake and alert. The patient feels better since being through the ER where he had stat doses of vancomycin and Merrem. VITAL SIGNS: Temperature has come down from 102 to 98, heart rate is 76, respirations 20, blood pressure is 112/64, pulse ox is 96% on 2 L of nasal cannula. HEENT: Head is normocephalic and atraumatic. Conjunctivae are pale. Sclerae are anicteric. Pupils are equally reactive to light and accommodation. Examination of the oropharynx reveals the patient to be edentulous. No ulcerations are noted. Tongue is coated and dry. No other lesions are seen. NECK: Supple. There is no adenopathy. RESPIRATORY: Examination of the lungs reveals little bit of crackles in both lung ramirez in the bases with expiratory wheeze. CARDIOVASCULAR: Examination of the heart reveals S1 and S2 to be normal. No gallop or murmur is heard. ABDOMEN: Soft and nontender. Liver and spleen are not palpable. EXTREMITIES: Reveals no cyanosis, clubbing, or edema. The patient has a vague rash in the left lower extremity over the luna for which he uses a cream. NEUROLOGIC: Examination reveals the patient to be awake, alert, oriented, in no acute distress. LABORATORY DATA: The patient had a CAT scan done in the emergency room which was done mainly to make sure we were ruling out a PE as well, shows no evidence of pulmonary embolism. There is a 5-mm nodule in the right upper lobe, prominent mediastinal node, probably reactive at this point in time. ASSESSMENT NOTES AND PLAN: The patient has acute bronchitis with probably interstitial pneumonia at this point in time in the background history of having stage IV mantle cell lymphoma, history of lung cancer, cardiomyopathy, coronary artery disease requiring coronary artery stent, borderline diabetes. The patient is going to be started and continued on IV vanco and Merrem. I already spoke to the ID specialist, Dr. Marshall, who has put the orders in for the Merrem, and hopefully, the patient will continue to improve. Various cultures including viral cultures have been ordered. The patient is also going to be started on low-dose IV steroids while watching his blood sugars. Routine post-exam instructions have been given to the patient. Gastric and deep venous thrombosis prophylaxis have also been requested. Pulmonary evaluation and cardiology evaluation have also been requested. Alie Myers MD
[2016-11-22] MEDS: Insulin Reg-LOW-Coverage SC SCH ×2 (19:08→22:27)
--- NOTE | 2016-11-22 19:30 | PN ---
PULMONARY PROGRESS NOTE DATE: 11/22/2016 REFERRING PHYSICIAN: Dr. Myers. SUBJECTIVE: He is sitting up in the bed, feels better, had some cough with discolored sputum production, still having wheezing, no nausea and vomiting. No leg pain or leg swelling. OBJECTIVE: GENERAL: In no acute distress. VITAL SIGNS: Temperature 98, heart rate is 88, respiratory rate is 20, blood pressure 145/90, pulse oximetry 96% on room air. HEENT: Moist mucous membrane. Small oral cavity. Crowded airway. NECK: Supple. No JVD. LUNGS: Crackles at the bases, scattered rhonchi on wheezing. HEART: S1 and S2. ABDOMEN: Soft and nontender. No organomegaly. EXTREMITIES: No edema. NEUROLOGIC: Awake, alert, and follow simple commands. MEDICATIONS: He is on doxycycline 100 mg twice a day, Ecotrin 81 mg daily, Lidex affected area, Lipitor 20 mg daily, metoprolol tartrate 25 mg twice a day, magnesium oxide 400 mg daily, meropenem 1 g IV q.12 hours, nystatin/triamcinolone to affected area twice a day, nortriptyline 10 mg daily, Plavix 75 mg daily, Robitussin DM 5 mL q. 4 hours p.r.n., Solu-Medrol 20 mg q.12 hours, Tylenol p.r.n., Xopenex 1.25 mg three times a day, Zofran p.r.n. LABORATORY DATA: Reviewed no new lab is available since yesterday. B antibodies are negative. Microbiology and blood cultures no growth. IMPRESSION AND PLAN: Acute bronchitis, probably has a component of chronic lung disease; history of mantle cell carcinoma, been on chemotherapy, history of lung cancer, requiring wedge resection in the remote past; cardiomyopathy with coronary artery disease, requiring coronary stent; diabetes, may have a component of sleep apnea syndrome, also may have oropharyngeal dysphagia with aspiration. For now, continue antibiotics. associated organism. continue steroids, inhaled bronchodilator. Gastric prophylaxis, deep venous thrombosis prophylaxis, speech therapy to evaluate for modified diet. Again, we will recommend attending sleep study for the patient. There is small 5 mm nodule. We will suggest followup CAT scan, Thanh Duffy MD [facility] # [id number]
[2016-11-22] MEDS ORDERED: Insulin Reg-LOW-Coverage SC SCH (22:00)
[2016-11-22] MEDS: RAPAFLO 8 MG PO SCH (22:00)
[2016-11-23] MEDS: guaiFENesin DM 100 mg-10 mg/5 ml UD PO PRN ×4 (00:40→23:15)
[2016-11-23] MEDS: Meropenem 1g/NS 100mL IVPB 1 GM/100 ML PIGGYBACK IVPB SCH ×2 (05:49→18:20)
[2016-11-23] MEDS: MethylPREDNISolone 40 mg Vial IVP SCH ×3 (05:50→21:41)
[2016-11-23 06:26] LABS: BASO # 0.01 K/mm3 (0.0-2.0); BASO % 0.2 % (0.0-3.0); GRAN # 3.52 (1.4-6.5); GRAN % 82.8 % (50.0-68.0); HEMATOCRIT 30.9 % (42.0-52.0); LYMPH # 0.5 (1.2-3.4); LYMPH % 10.6 % (22.0-35.0); MEAN CELL VOLUME 82.2 fl (80.0-105.0); MEAN CORPUSCULAR HEMOGLOBIN 26.6 pg (25.0-35.0); MEAN CORPUSCULAR HGB CONC 32.4 g/dl (31.0-37.0); MEAN PLATELET VOLUME 9.3 fl (7.0-11.0); MONO # 0.3 (0.1-0.6); MONO % 6.4 % (1.0-6.0); WHITE BLOOD COUNT 4.3 10^3/ul (4.5-11.0)
[2016-11-23 06:31] LABS: ALKALINE PHOSPHATASE 106 U/L (38-126); ALT/SGPT 29 U/L (7-56); AST/SGOT 25 U/L (17-59); BILIRUBIN,TOTAL 0.7 mg/dL (0.2-1.3); BLOOD UREA NITROGEN 16 mg/dL (7-21); CALCIUM 8.6 mg/dL (8.4-10.5); CARBON DIOXIDE 26 mmol/L (21-33); CHLORIDE 104 mmol/L (95-110); GFR AFRICAN-AMERICAN > 60; GLUCOSE,RANDOM 223 mg/dL (70-110); POTASSIUM 4.3 mmol/L (3.6-5.0); SODIUM 139 mmol/L (132-148); TOTAL PROTEIN 6.3 g/dL (5.8-8.3)
[2016-11-23] MEDS: Levalbuterol 1.25 MG/3 ML Inhal Soln UD IH SCH ×3 (08:43→19:48)
[2016-11-23] MEDS: Insulin Reg-LOW-Coverage SC SCH ×4 (08:44→23:14)
[2016-11-23] MEDS: Magnesium Oxide 400 mg Tab UD PO SCH (09:24)
[2016-11-23] MEDS: [UNRECOGNIZED DRUG - MIXTURE] PO SCH (09:25)
[2016-11-23] MEDS: Nystatin-Triamcinolone Cream(30 gm) TOP SCH ×2 (09:27→19:31)
--- NOTE | 2016-11-23 13:25 | CP.PCM.PN ---
Subjective - Date & Time of Evaluation Date of Evaluation: 11/23/16 Time of Evaluation: 11:20 - Subjective Subjective: Comfortably resting in bed, no fevers overnight, cough is also improving. Objective - Vital Signs/Intake and Output Vital Signs (last 24 hours): Temp Pulse Resp BP Pulse Ox 98.6 F 82 18 124/76 96 11/23/16 06:00 11/23/16 06:00 11/23/16 06:00 11/23/16 06:00 11/23/16 06:00 Intake and Output: 11/23/16 11/23/16 06:59 18:59 Intake Total 360 120 Output Total 600 Balance -240 120 - Medications Medications: Current Medications Acetaminophen (Tylenol 325mg Tab) 650 mg PO Q6H PRN PRN Reason: Pain, Mild (1-3) Last Admin: 11/22/16 04:25 Dose: 650 mg Aspirin (Ecotrin) 81 mg PO DAILY [facility] Last Admin: 11/23/16 09:24 Dose: 81 mg Atorvastatin Calcium (Lipitor) 20 mg PO DIN [facility] Last Admin: 11/22/16 17:33 Dose: 20 mg Clopidogrel Bisulfate (Plavix) 75 mg PO DAILY [facility] Last Admin: 11/23/16 09:24 Dose: 75 mg Doxycycline Hyclate (Doryx) 100 mg PO Q12 [facility] PRN Reason: Protocol Last Admin: 11/23/16 09:24 Dose: 100 mg Fluocinonide (Lidex 0.05% Cream) 0 gm TOP BID [facility] Last Admin: 11/23/16 09:26 Dose: 1 applic Guaifenesin/Dextromethorphan (Robitussin Dm) 5 ml PO Q4H PRN PRN Reason: Cough Last Admin: 11/23/16 05:49 Dose: 5 ml Home Med (Home Med) 0 unit PO HS [facility] Last Admin: 11/22/16 22:00 Dose: 1 unit Home Med (Home Med) 0 unit PO DAILY [facility] Last Admin: 11/23/16 09:25 Dose: 1 unit Home Med (Home Med) 0 unit PO Q12 [facility] Last Admin: 11/23/16 09:25 Dose: 1 unit Meropenem 1g/NS 100mL IVPB (Meropenem 1g/Ns 100ml Ivpb) 1 gm in 100 mls @ 100 mls/hr IVPB Q12H [facility] PRN Reason: Protocol Last Admin: 11/23/16 05:49 Dose: 100 mls/hr Insulin Human Regular (Humulin R Low) 0 units SC ACHS [facility] PRN Reason: Protocol Last Admin: 11/23/16 08:44 Dose: 3 units Levalbuterol HCl (Xopenex) 1.25 mg IH TIDRESP [facility] Last Admin: 11/23/16 08:43 Dose: 1.25 mg Magnesium Oxide (Mag-Ox) 400 mg PO DAILY [facility] Last Admin: 11/23/16 09:24 Dose: 400 mg Methylprednisolone (Solu-Medrol) 10 mg IVP Q8H [facility] Last Admin: 11/23/16 05:50 Dose: 10 mg Metoprolol Tartrate (Lopressor) 12.5 mg PO BID [facility] Last Admin: 11/23/16 09:24 Dose: 12.5 mg Nortriptyline HCl (Pamelor) 10 mg PO DAILY [facility] Last Admin: 11/23/16 09:31 Dose: 10 mg Nystatin/Triamcinolone Acetonide (Nystatin/Triamcinolone Cream) 0 ea TOP BID [facility] Last Admin: 11/23/16 09:27 Dose: 1 applic Ondansetron HCl (Zofran Inj) 4 mg IVP Q6H PRN PRN Reason: Nausea/Vomiting - Labs Labs: 11/23/16 06:18 11/23/16 06:18 PT 12.3 Seconds (9.9-11.8) H 11/20/16 19:40 INR 1.14 (0.93-1.08) H 11/20/16 19:40 APTT 33.2 Seconds (23.7-30.8) H 11/20/16 19:40 - Constitutional Appears: Non-toxic, No Acute Distress - Head Exam Head Exam: NORMAL INSPECTION - ENT Exam ENT Exam: Mucous Membranes Moist - Neck Exam Neck Exam: absent: Meningismus - Respiratory Exam Respiratory Exam: Decreased Breath Sounds - Cardiovascular Exam Cardiovascular Exam: +S1, +S2 - GI/Abdominal Exam GI & Abdominal Exam: Soft. absent: Tenderness Assessment and Plan - Assessment and Plan (Free Text) Plan: Assessment Consider sepsis due to acute bronchitis, R/O systemic viral illness, clinically improving history of UTI with E. 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 Myers
[2016-11-23 16:25] VITALS: RESP 20
[2016-11-23] MEDS: RAPAFLO 8 MG PO SCH (21:42)
--- NOTE | 2016-11-24 01:11 | PN ---
DATE: 11/23/2016 REFERRING PHYSICIAN: Dr. Myers. SUBJECTIVE: The patient is sitting up in the bed, feels better, still having cough. Decreased shortness of breath. No nausea, no vomiting, no diarrhea. No leg pain or leg swelling. PHYSICAL EXAMINATION GENERAL: In no acute distress. VITAL SIGNS: Temperature is 98, heart rate is 75, respiratory rate is 20, blood pressure 137/85, pulse ox 78% on room air. HEENT: Moist mucous membranes. Small oral cavity. NECK: Supple. No JVD. HEART: S1 and S2. LUNGS: Have expiratory wheezing with few basilar crackles. ABDOMEN: Soft, nontender. No organomegaly. EXTREMITIES: There is no edema. NEUROLOGIC: Awake, alert. Follows simple command. LABORATORY DATA: Shows hemoglobin 10.8, hematocrit 30.9, WBC of 4.3, platelets 184. Sodium 139, potassium 4.3, chloride 104, bicarbonate 26, BUN 16, creatinine 0.8, glucose 223, calcium 8.6, AST 25, ALT 29, alkaline phosphatase is 106, albumin is 3.2. Microbiology, blood culture, sputum culture, there is no growth. MEDICATIONS: She is on doxycycline 100 mg twice a day, Ecotrin 81 daily, insulin coverage, Lidex cream to affected area twice a day, Lipitor 20 mg daily, metoprolol tartrate 25 mg twice a day, mag oxide 400 mg daily, meropenem 1 g IV q. 12 hours, triamcinolone with Nystatin to affected area twice a day, nortriptyline 10 mg daily, Plavix 75 mg daily, Robitussin q. 4 hours p.r.n., Solu-Medrol 10 mg q. 8 hours, Tylenol p.r.n. basis, Xopenex 1.25 mg three times a day, Zofran p.r.n. basis. IMPRESSION AND PLAN: Acute bronchitis, probably has a chronic obstructive lung disease; history of mantle cell carcinoma, chemotherapy; history of lung cancer; history of wedge resection of the lung; cardiomyopathy with coronary artery disease requiring coronary stent; may have oropharyngeal dysphagia; diabetes; there may be a component of sleep apnea syndrome. The patient's steroid has been decreased because of hyperglycemia. Clinically, he feels better. Able to clear pulmonary secretion. I will add Mucomyst to beta agonist. Also add Singulair 10 mg at bedtime. Gastric prophylaxis, DVT prophylaxis. Has a lung nodule, will need followup to assure the stability. Out of bed to chair, physical therapy. Thank you and we will follow with you. Thanh Duffy MD
[2016-11-24] MEDS: MethylPREDNISolone 40 mg Vial IVP SCH ×3 (05:04→22:31)
[2016-11-24] MEDS: guaiFENesin DM 100 mg-10 mg/5 ml UD PO PRN (05:04)
[2016-11-24] MEDS: Meropenem 1g/NS 100mL IVPB 1 GM/100 ML PIGGYBACK IVPB SCH ×2 (05:05→17:48)
[2016-11-24] MEDS: Levalbuterol 1.25 MG/3 ML Inhal Soln UD IH SCH ×3 (07:54→19:33)
[2016-11-24] MEDS: Acetylcysteine 20% Inhal Soln (4ml) IH SCH ×3 (07:55→19:33)
[2016-11-24 08:16] LABS: GRAN # 3.36 (1.4-6.5); GRAN % 79.4 % (50.0-68.0); HEMATOCRIT 31.3 % (42.0-52.0); LYMPH # 0.5 (1.2-3.4); LYMPH % 12.1 % (22.0-35.0); MEAN CELL VOLUME 81.7 fl (80.0-105.0); MEAN CORPUSCULAR HEMOGLOBIN 26.6 pg (25.0-35.0); MEAN CORPUSCULAR HGB CONC 32.6 g/dl (31.0-37.0); MEAN PLATELET VOLUME 9.6 fl (7.0-11.0); MONO # 0.4 (0.1-0.6); MONO % 8.5 % (1.0-6.0); RED CELL DISTRIBUTION WIDTH 15.9 % (11.5-14.5); WHITE BLOOD COUNT 4.2 10^3/ul (4.5-11.0)
[2016-11-24 08:30] LABS: ALB/GLOB RATIO 1.1 (1.1-1.8); ALKALINE PHOSPHATASE 104 U/L (38-126); ALT/SGPT 26 U/L (7-56); AST/SGOT 24 U/L (17-59); BILIRUBIN,TOTAL 0.6 mg/dL (0.2-1.3); BLOOD UREA NITROGEN 20 mg/dL (7-21); CALCIUM 8.6 mg/dL (8.4-10.5); CARBON DIOXIDE 27 mmol/L (21-33); CHLORIDE 100 mmol/L (98-107); GFR AFRICAN-AMERICAN > 60; GLUCOSE,RANDOM 287 mg/dL (70-110); POTASSIUM 4.2 mmol/L (3.6-5.0); SODIUM 135 mmol/L (132-148); TOTAL PROTEIN 6.4 g/dL (5.8-8.3)
[2016-11-24] MEDS: Insulin Reg-LOW-Coverage SC SCH ×4 (08:35→22:00)
[2016-11-24] MEDS: Magnesium Oxide 400 mg Tab UD PO SCH (10:10)
[2016-11-24] MEDS: [UNRECOGNIZED DRUG - MIXTURE] PO SCH (10:11)
[2016-11-24] MEDS: Nystatin-Triamcinolone Cream(30 gm) TOP SCH ×2 (10:12→17:36)
--- NOTE | 2016-11-24 13:51 | CP.PCM.PN ---
Subjective - Date & Time of Evaluation Date of Evaluation: 11/24/16 Time of Evaluation: 11:35 - Subjective Subjective: Still with cough but a little better, no fevers overnight, breathing better. Objective - Vital Signs/Intake and Output Vital Signs (last 24 hours): Temp Pulse Resp BP Pulse Ox 98.3 F 78 20 152/86 H 99 11/24/16 06:00 11/24/16 06:00 11/24/16 06:00 11/24/16 06:00 11/24/16 06:00 Intake and Output: 11/24/16 11/24/16 06:59 18:59 Intake Total 120 Balance 120 - Medications Medications: Current Medications Acetaminophen (Tylenol 325mg Tab) 650 mg PO Q6H PRN PRN Reason: Pain, Mild (1-3) Last Admin: 11/22/16 04:25 Dose: 650 mg Acetylcysteine (Acetylcysteine 20%) 4 ml IH TID [facility] Last Admin: 11/24/16 07:55 Dose: 4 ml Aspirin (Ecotrin) 81 mg PO DAILY [facility] Last Admin: 11/23/16 09:24 Dose: 81 mg Atorvastatin Calcium (Lipitor) 20 mg PO DIN [facility] Last Admin: 11/23/16 18:15 Dose: 20 mg Clopidogrel Bisulfate (Plavix) 75 mg PO DAILY [facility] Last Admin: 11/23/16 09:24 Dose: 75 mg Doxycycline Hyclate (Doryx) 100 mg PO Q12 [facility] PRN Reason: Protocol Last Admin: 11/23/16 21:40 Dose: 100 mg Fluocinonide (Lidex 0.05% Cream) 0 gm TOP BID [facility] Last Admin: 11/23/16 18:16 Dose: 1 applic Guaifenesin/Dextromethorphan (Robitussin Dm) 5 ml PO Q4H PRN PRN Reason: Cough Last Admin: 11/24/16 05:04 Dose: 5 ml Home Med (Home Med) 0 unit PO HS [facility] Last Admin: 11/23/16 21:42 Dose: 1 unit Home Med (Home Med) 0 unit PO DAILY [facility] Last Admin: 11/23/16 09:25 Dose: 1 unit Home Med (Home Med) 0 unit PO Q12 [facility] Last Admin: 11/23/16 21:43 Dose: 1 unit Meropenem 1g/NS 100mL IVPB (Meropenem 1g/Ns 100ml Ivpb) 1 gm in 100 mls @ 100 mls/hr IVPB Q12H [facility] PRN Reason: Protocol Last Admin: 11/24/16 05:05 Dose: 100 mls/hr Insulin Human Regular (Humulin R Low) 0 units SC ACHS [facility] PRN Reason: Protocol Last Admin: 11/24/16 08:35 Dose: 3 units Levalbuterol HCl (Xopenex) 1.25 mg IH TIDRESP [facility] Last Admin: 11/24/16 07:54 Dose: 1.25 mg Magnesium Oxide (Mag-Ox) 400 mg PO DAILY [facility] Last Admin: 11/23/16 09:24 Dose: 400 mg Methylprednisolone (Solu-Medrol) 10 mg IVP Q8H [facility] Last Admin: 11/24/16 05:04 Dose: 10 mg Metoprolol Tartrate (Lopressor) 12.5 mg PO BID [facility] Last Admin: 11/23/16 18:15 Dose: 12.5 mg Montelukast Sodium (Singulair) 10 mg PO HS [facility] Last Admin: 11/23/16 21:41 Dose: 10 mg Nortriptyline HCl (Pamelor) 10 mg PO DAILY [facility] Last Admin: 11/23/16 09:31 Dose: 10 mg Nystatin/Triamcinolone Acetonide (Nystatin/Triamcinolone Cream) 0 ea TOP BID [facility] Last Admin: 11/23/16 19:31 Dose: Not Given Ondansetron HCl (Zofran Inj) 4 mg IVP Q6H PRN PRN Reason: Nausea/Vomiting - Labs Labs: 11/24/16 08:11 11/24/16 08:11 PT 12.3 Seconds (9.9-11.8) H 11/20/16 19:40 INR 1.14 (0.93-1.08) H 11/20/16 19:40 APTT 33.2 Seconds (23.7-30.8) H 11/20/16 19:40 - Constitutional Appears: Non-toxic, No Acute Distress - Head Exam Head Exam: NORMAL INSPECTION - ENT Exam ENT Exam: Mucous Membranes Moist - Neck Exam Neck Exam: absent: Meningismus - Respiratory Exam Respiratory Exam: Decreased Breath Sounds - Cardiovascular Exam Cardiovascular Exam: +S1, +S2 - GI/Abdominal Exam GI & Abdominal Exam: Soft. absent: Tenderness Assessment and Plan - Assessment and Plan (Free Text) Plan: Assessment Consider sepsis due to acute bronchitis, R/O systemic viral illness, clinically improving history of UTI with E. 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 Myers
--- NOTE | 2016-11-24 18:44 | PN ---
DATE: 11/24/2016 LOCATION: The patient is in room 374, bed 2. SUBJECTIVE: The patient is examined in bed, is coughing, but a little bit better. No fevers overnight. Breathing better. Bringing up less sputum now. Overall, continues to improve without any chills. No leg pain. No nausea. No vomiting. No diarrhea at this point in time. PHYSICAL EXAMINATION: VITAL SIGNS: Stable. T-max is 98.4, pulse is 78, respirations 20, blood pressure 152/86, pulse ox is 99% on room air. HEENT: Head is normocephalic, atraumatic. Conjunctivae pale. Sclerae is anicteric. MOUTH: Examination of the mouth reveals no oropharyngeal lesions. The patient is edentulous, has dentures. NECK: Supple. There is no adenopathy. No JVD or venous distension noted. LUNGS: Revealing bilateral wheezes though less than before with basilar crackles. HEART: PMI to be in the fifth intercostal space inside the midclavicular line. S1 and S2 are normal. No gallop or murmur is heard. ABDOMEN: Protuberant, nontender. Bowel sounds are present. No rebound, rigidity or guarding is noted. EXTREMITIES: Reveal no cyanosis, clubbing, or edema. NEUROLOGICAL: Higher function normal. No focal deficits are noted. GENITOURINARY AND RECTAL: Deferred. LYMPHATICS: There is no evidence of adenopathy in the neck, axilla, or groin. MEDICATIONS: The patient's medications are reviewed. He is on Tylenol, Mucomyst, aspirin, atorvastatin, Plavix, doxycycline 100 mg p.o. q. 12 hours. He is on Lidex cream, dextromethorphan. He is on Rapaflo and Ranexa. He is on meropenem 1 g IV q. 8 hours. He is on insulin coverage. He is on Xopenex, magnesium oxide, methylprednisolone 10 mg q. 8 hours, Singulair 10 mg p.o. at bedtime. The patient is on Pamelor. He is on triamcinolone and nystatin cream topically for the affected area and Zofran p.r.n. LABORATORY DATA: From today reveals a white count of 4.2, hemoglobin 10.2, hematocrit 31.3, platelet count of 183,000. Sodium is 135, potassium is 4.2, chloride is 100, CO2 is 27, BUN is 20, creatinine 0.8, blood sugar is 287. Sugar is a little bit better and they were up to 400. PT/INR is within normal limits. PLAN: Continue current antibiotics, discussed case with Dr. Marshall, said to give at least 7 days of antibiotics. We will plan on sending him home on oral medications. Consider sepsis secondary to acute bronchitis, rule out systemic viral illness, clinically improving. History of UTI with E. coli. History of left ankle infection and skin structure infection, cellulitis. History of bilateral lower lobe pneumonia, clinically improved status post treatment. History of MSSA and Pseudomonas tracheobronchitis. History of [place] parapsilosis fungemia. 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 Benign prostatic hyperplasia, dyslipidemia, history of urinary tract infection. The patient would be followed very closely, currently on the current medications. CT does not show any active disease, at least based on the CAT scan, as far as pneumonia is a concern, continue the current antibiotics as per IDs recommendation and follow the patient carefully. I have instructed the , may be she needs to set up an appointment at [facility] or follow up with Dr. Rocah as well and to get up a slip for a PET CT scan that could be done there, so we can check for status of his stage IV mantle cell as well. Alie Myers MD
--- NOTE | 2016-11-24 20:02 | PN ---
DATE: 11/23/2016 LOCATION: The patient is in room #374, bed #2. SUBJECTIVE: The patient is sitting in the bed, feels better, still having cough, though production of phlegm is clear and is decreased substantially. Decreased shortness of breath. No nausea, vomiting, diarrhea. No leg pain. No leg swelling. The patient is able to keep his food down. No chills at this point in time. PHYSICAL EXAMINATION: GENERAL: The patient is in no acute distress. VITAL SIGNS: Stable. T-max is 98.4, heart rate is 75, respiration is 20, blood pressure is 137/85, pulse ox is 78% on room air. HEENT: Head is normocephalic, atraumatic. Conjunctivae are pale. Sclerae are anicteric. Pupils are equally reactive to light and accommodation. Examination of the oropharynx revealed no oropharyngeal lesions. NECK: Supple. There is no adenopathy. No jugular venous distention noted. HEART: Reveals PMI to be in the fifth intercostal space inside the midclavicular line. S1 and S2 are normal. No gallop or murmur is heard. LUNGS: The patient has expiratory wheeze with basilar crackles on both lung ramirez posteriorly. ABDOMEN: Reveals to be soft to protuberant, nontender. Liver and spleen not palpable. EXTREMITIES: Reveals no cyanosis, clubbing, or edema. NEUROLOGIC: Reveals the patent's higher functions to be normal. No focal deficits are noted. LABORATORY DATA: From today reveals a hemoglobin of 10.8, hematocrit 30.9, white count of 4.3, and platelet count of 184,000. Electrolytes are unremarkable. BUN is 16, creatinine 0.8, glucose has come down to 222. AST and ALT are within normal limits. Alkaline phosphatase is normal. Sputum culture, there is no growth. MEDICATIONS: The patient is currently on doxycycline 100 twice a day, Ecotrin 81 mg daily, on insulin coverage, Lidex cream to affected area twice a day, Lipitor 20 mg daily, metoprolol 25 mg b.i.d., mag oxide 40 mg daily, meropenem 1 g IV q. 12 hours, triamcinolone with Nystatin to the affected area twice a day, nortriptyline 10 mg p.o. daily, Plavix 75 mg daily, Robitussin DM q. 4 hours p.r.n., Solu-Medrol 10 mg q. 8 hours, Tylenol p.r.n., Xopenex 1.25 mg three times a day, Zofran p.r.n. ASSESSMENT NOTES AND PLAN: The patient has acute bronchitis, background history of stage IV mantle cell lymphoma, currently quiescent, off treatments. The latest treatment that he was getting was combination of Rituxan and ibrutinib, they both of which I have been put on hold. I was supposed to have a followup PET CT to make further decisions. 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 PLAN: We will continue the current medications and follow the patient very carefully. Discussed the findings with Dr. Duffy as well who think there may be a component of sleep apnea. The patient's steroid has been decreased because of the hyperglycemia. We will continue current medications. Mucomyst has been added along with Singulair at nighttime gastric and DVT prophylaxis has been continued. I told the that we may have to give the IV doxycycline for a period of about 7 days after my discussion with Dr. Marshall today. The patient came in on Sunday, so he would be probably getting antibiotics through Sunday of next week. Routine post-exam instructions have been given to the patient. Discussed my findings in detail with the , Dr. Marques as well. Alie Myers MD
--- NOTE | 2016-11-24 22:17 | PN ---
PULMONARY PROGRESS NOTE DATE: 11/24/2016 REFERRING PHYSICIAN: Dr. Myers. SUBJECTIVE: He is sitting up in a reclining chair, having lunch, feels better, had a cough, able to clear pulmonary secretion. No hemoptysis or hematemesis or hematuria or diarrhea reported. PHYSICAL EXAMINATION VITAL SIGNS: Temperature 98, heart rate is 65, respiratory rate is 20, blood pressure 149/84, pulse ox 100% on nasal cannula. HEENT: Moist mucous membranes. No oral thrush noted. NECK: Supple. No JVD. LUNGS: Prolonged expiratory phase with some wheezing. HEART: S1 and S2. ABDOMEN: Soft, nontender. No organomegaly. EXTREMITIES: There is no edema. NEUROLOGIC: Awake, alert. Follows simple command. MEDICATIONS: He is on Mucomyst 20% inhaled 3 times a day, doxycycline 100 mg twice a day, Ecotrin 81 daily, also getting insulin coverage, Lidex 0.05 cream to affected area twice a day, Lipitor 20 mg daily, metoprolol tartrate 12.5 mg twice a day, mag oxide 400 mg daily, meropenem 1 g IV q. 12 hours, Nystatin/triamcinolone to affected area twice a day, nortriptyline 10 mg daily, Plavix 75 mg daily, Robitussin DM 5 mL q. 4 hours p.r.n., Singulair 10 mg daily, Solu-Medrol 10 mg q. 8 hours, Tylenol p.r.n. basis, Xopenex 1.25 mg three times a day, Zofran p.r.n. basis. LABORATORY DATA: Shows hemoglobin 10.2, hematocrit 31.3, WBC of 4.2, platelet count 183. Sodium 135, potassium 4.2, chloride 100, bicarbonate 27, BUN 20, creatinine 0.8, glucose 287. Hemoglobin A1c 7.7, calcium 8.6, AST 24, ALT 26, alkaline phosphatase is 104, albumin is 3.4. Microbiology, blood culture, sputum culture, there is no growth. IMPRESSION AND PLAN: Acute bronchitis, chronic obstructive lung disease; history of mantle cell carcinoma, been on chemotherapy; history of lung cancer requiring wedge resection, cardiomyopathy with coronary artery disease requiring coronary stent, oropharyngeal dysphagia, modified diet, diabetes; may have a component of sleep apnea syndrome. Pulmonary point of view, he is improving slowly. We will continue IV and inhaled bronchodilator, antibiotics, pulmonary toilet, physical therapy, incentive spirometer, gastric prophylaxis, deep venous thrombosis prophylaxis. Thank you and we will follow with you. Thanh Duffy MD
[2016-11-24] MEDS: RAPAFLO 8 MG PO SCH (22:32)
[2016-11-25] MEDS: MethylPREDNISolone 40 mg Vial IVP SCH (04:30)
[2016-11-25] MEDS: Meropenem 1g/NS 100mL IVPB 1 GM/100 ML PIGGYBACK IVPB SCH (06:12)
[2016-11-25] MEDS: Acetylcysteine 20% Inhal Soln (4ml) IH SCH (08:19)
[2016-11-25] MEDS: Levalbuterol 1.25 MG/3 ML Inhal Soln UD IH SCH (08:20)
[2016-11-25] MEDS: Insulin Reg-LOW-Coverage SC SCH (08:20)
[2016-11-25 08:24] VITALS: BP 134/83; TEMP 98.1; O2SAT 94
[2016-11-25] MEDS: Magnesium Oxide 400 mg Tab UD PO SCH (09:26)
[2016-11-25] MEDS: [UNRECOGNIZED DRUG - MIXTURE] PO SCH (09:27)
[2016-11-25] MEDS: Nystatin-Triamcinolone Cream(30 gm) TOP SCH (09:30)
--- NOTE | 2016-11-25 09:54 | PN ---
SUBJECTIVE: The patient is in bed, in no acute distress, nontoxic. PHYSICAL EXAMINATION: VITAL SIGNS: Temperature is 98, blood pressure is 130/80, respiratory rate of 18. HEENT: Unremarkable. NECK: Supple. LUNGS: Decreased breath sounds. HEART EXAM: Normal S1 and S2. ABDOMINAL EXAMINATION: Soft. LABORATORY EXAMINATION: Reveals a white count of 4.2, hemoglobin of 10, platelets of 183. Coagulation is noted. Chemistries reveal a BUN of 20, creatinine of 0.8. Serology is noted. Microbiology reveals the blood cultures are negative. MEDICATIONS: Include Solu-Medrol, p.o. doxycycline. 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 The patient is also on Solu-Medrol. The patient's procalcitonin is low and blood cultures are negative. We will discontinue the meropenem. Marvin Callahan MD
[2016-11-25 10:38] VITALS: PULSE 76
--- NOTE | 2016-11-27 15:33 | PQF SEPSIS ---
11/27/16 Dr. Myers, ID consult of 11/21 and subsequent ID progress notes of 11/22 through 11/24 document "consider sepsis due to acute bronchitis." Was sepsis ruled in, ruled out, undetermined, other? If sepsis was ruled in, was this present on admission ? Thank you. Clarification of your documentation is requested to better reflect the severity of illness and intensity of treatment of your patient. Indicators present [] Temp < 96.8 or > 100.4 [] WBC count > 12,000/mm3 or <000/mm3 or 10% immature neutrophils [] Heart Rate > 90 [] Respiratory Rate > 20 [] Fever or hypothermia [] Chills [] Positive blood cultures [] Hypotension [] Metabolic acidosis (Elevated lactate level, anion gap or reduced blood pH) [] Acute confusion /Altered Mental Status [] Shock [] Other: [] Location in the medical record that reflects the above clinical findings: [] Treatment Provided: [] PHYSICIAN'S RESPONSE Based on your medical judgment of the clinical indicators outlined above, are you treating this patient for a known or suspected: [] Sepsis / Septicemia Please specify organism if known [] [] SIRS (Systemic Inflammatory Response Syndrome) [] Severe Sepsis (Sepsis with Associated Organ Dysfunction) [] Fever of Unknown Origin [] Other, please indicate: [] [] If Unable to Determine, please check the box, sign and date. Present On Admission (POA) Indicator: [] Present at the time of admission [] Not present at the time of admission [] Clinically Undetermined In responding to this query, please exercise your independent professional judgment. The fact that a question is asked does not imply that any particular answer is desired or expected. Thank you for your clarification on this documentation. If you have any questions please call:[ ] * Thank you, [ ] senior oracle soa developer JUAN R
== END 2016-11-25 12:10 | DRG 202 ==
LOC: ED 18:46 → ERH 20:45 → 2RSO 11-21 00:23 → OBSVTOIN 11-22 14:45 → 3RSO 11-22 15:23
PROVIDERS: ADMIT Family Medicine; ATTEND Family Medicine
DX: J20.9 Acute bronchitis, unspecified (principal); J12.9 Viral pneumonia, unspecified; C83.10 Mantle cell lymphoma, unspecified site; J44.0 Chronic obstructive pulmonary disease with (acute) lower respiratory infection; I42.9 Cardiomyopathy, unspecified; R13.12 Dysphagia, oropharyngeal phase; I25.10 Atherosclerotic heart disease of native coronary artery without angina pectoris; E78.00 Pure hypercholesterolemia, unspecified; E78.5 Hyperlipidemia, unspecified; H91.93 Unspecified hearing loss, bilateral; I10 Essential (primary) hypertension; N40.0 Benign prostatic hyperplasia without lower urinary tract symptoms; Z79.82 Long term (current) use of aspirin; Z79.899 Other long term (current) drug therapy; Z82.49 Family history of ischemic heart disease and other diseases of the circulatory system; Z83.3 Family history of diabetes mellitus; Z85.118 Personal history of other malignant neoplasm of bronchus and lung; Z86.19 Personal history of other infectious and parasitic diseases; Z86.73 Personal history of transient ischemic attack (TIA), and cerebral infarction without residual deficits; Z87.01 Personal history of pneumonia (recurrent); Z87.440 Personal history of urinary (tract) infections; Z88.0 Allergy status to penicillin; Z88.1 Allergy status to other antibiotic agents; Z92.21 Personal history of antineoplastic chemotherapy; Z92.3 Personal history of irradiation; Z95.5 Presence of coronary angioplasty implant and graft; R73.03 Prediabetes; D64.9 Anemia, unspecified; Z88.2 Allergy status to sulfonamides; Z87.892 Personal history of anaphylaxis; Z88.8 Allergy status to other drugs, medicaments and biological substances; R26.81 Unsteadiness on feet; F41.9 Anxiety disorder, unspecified; G47.30 Sleep apnea, unspecified; B95.61 Methicillin susceptible Staphylococcus aureus infection as the cause of diseases classified elsewhere

== ENCOUNTER 2016-11-25 12:14 | Inpatient (IN) | payer OTHER ==
[2016-11-25] MEDS ORDERED: Nystatin-Triamcinolone Cream(30 gm) TOP PRN (12:40)
[2016-11-25 13:11] VITALS: BMI 26.9
[2016-11-25] MEDS: Levalbuterol 1.25 MG/3 ML Inhal Soln UD IH SCH ×2 (13:43→20:08)
[2016-11-25] MEDS: Acetylcysteine 20% Inhal Soln (4ml) IH SCH ×2 (13:43→20:08)
[2016-11-25] MEDS: MethylPREDNISolone 40 mg Vial IVP SCH ×2 (14:30→21:48)
[2016-11-25] MEDS: Insulin Reg-LOW-Coverage SC SCH ×2 (17:30→21:47)
[2016-11-25] MEDS: Ranolazine [Ranexa] 500 MG (HOME MED) PO SCH (17:49)
[2016-11-25] MEDS: guaiFENesin DM 100 mg-10 mg/5 ml UD PO PRN (20:27)
[2016-11-25] MEDS: SILODOSIN 8 MG PO SCH (21:49)
[2016-11-25] MEDS ORDERED: Meropenem 1g/NS 100mL IVPB 1 GM/100 ML PIGGYBACK IVPB SCH (22:00)
--- NOTE | 2016-11-26 02:46 | CON ---
REASON FOR CONSULT: Chronic lung disease with cough and shortness of breath, history of lung cancer. HISTORY OF PRESENT ILLNESS: This is a 76 years old gentleman with history of mantle cell lymphoma, history of chemotherapy, lung cancer, history of wedge resection, coronary artery disease requiring coronary stent, BPH, hyperlipidemia, recurrent UTI, recurrent pneumonia, came in with fever, cough, shortness of breath, on broad-spectrum antibiotics, feels better. Also found to have bilateral wheezing and cough. PAST MEDICAL HISTORY: As per history of present illness. ALLERGIES: TO MULTIPLE MEDICATIONS INCLUDING ZITHROMAX, ERYTHROMYCIN, PENICILLIN, KEFLEX, GABAPENTIN, SULFA, NITRO PASTE, AND IMBRUVICA. SOCIAL HISTORY: Nonsmoker, nondrinker. FAMILY HISTORY: No significant cardiopulmonary disease reported. MEDICATIONS: He is on Mucomyst 20% inhale 3 times a day, vitamin D and calcium 600 mg daily, doxycycline 100 mg twice a day, Ecotrin 81 mg daily, insulin coverage, Lidex 0.5 two times a day topically, Lipitor 20 mg at bedtime, metoprolol tartrate 12.5 mg twice a day, mag oxide 400 mg daily, meropenem 1 g IV q. 12 hours, Nystatin with triamcinolone to affected area twice a day, nortriptyline 10 mg daily, Plavix 75 mg daily, Ranexa 500 mg twice a day, Guaifenesin-DM 5 mL q. 4 hours p.r.n., Rapaflo 8 mg at bedtime, Singulair 10 mg daily, Solu-Medrol 10 mg q. 8 hours, Tylenol p.r.n., Xopenex 1.25 mg three times a day, Zofran p.r.n. basis. REVIEW OF SYSTEMS: No headache, no rhinitis. Has cough with sputum production. No chest pain. No nausea, no vomiting, no diarrhea. No leg pain or leg swelling. PHYSICAL EXAMINATION GENERAL: Lying in the bed, in no acute distress. VITAL SIGNS: Temperature is 98, heart rate 71, respiratory rate is 14, blood pressure 130/75, pulse ox 99% on nasal cannula. HEENT: Small oral cavity, crowded airway. NECK: Supple. No JVD. LUNGS: Has a few crackles, expiratory wheezing. HEART: S1 and S2. ABDOMEN: Soft, nontender, no organomegaly. EXTREMITIES: No edema. NEUROLOGIC: Awake and alert. Follows simple commands. LABORATORY DATA: Shows hemoglobin 10.2, hematocrit 31.3, WBC 4.2, platelets are 183. Blood sugar is 267. Microbiology; blood culture, sputum culture, there is no growth. IMPRESSION AND PLAN: Acute bronchitis; probably has a chronic obstructive lung disease; history of mantle cell carcinoma, been on chemotherapy; history of lung cancer requiring wedge resection; cardiomyopathy; coronary artery disease; history of coronary artery stent; oropharyngeal dysphagia, on modified diet; may have a component of sleep apnea syndrome. The patient is on low-dose Solu-Medrol because of hyperglycemia. We will continue with p.o. bronchodilator, antibiotics as per infectious disease, pulmonary toilet, gastric prophylaxis, deep venous thrombosis prophylaxis. Thank you and we will follow with you. Thanh Duffy MD
[2016-11-26] MEDS: MethylPREDNISolone 40 mg Vial IVP SCH ×2 (05:35→13:48)
[2016-11-26] MEDS: Insulin Reg-LOW-Coverage SC SCH ×4 (06:56→22:14)
[2016-11-26] MEDS: guaiFENesin DM 100 mg-10 mg/5 ml UD PO PRN ×2 (07:00→20:46)
[2016-11-26] MEDS: CALTRATE PO SCH (09:12)
[2016-11-26] MEDS: Ranolazine [Ranexa] 500 MG (HOME MED) PO SCH ×2 (09:12→17:07)
[2016-11-26] MEDS: [UNRECOGNIZED DRUG - OTHER] PO SCH (09:12)
[2016-11-26] MEDS: Magnesium Oxide 400 mg Tab UD PO SCH (09:12)
[2016-11-26] MEDS: Levalbuterol 1.25 MG/3 ML Inhal Soln UD IH SCH ×2 (16:02→21:03)
[2016-11-26] MEDS: Acetylcysteine 20% Inhal Soln (4ml) IH SCH ×2 (16:03→21:02)
--- NOTE | 2016-11-26 18:59 | CP.PCM.PN ---
Subjective - Date & Time of Evaluation Date of Evaluation: 11/25/16 Time of Evaluation: 21:00 - Subjective Subjective: no acute events. Breathing improved with nebulizaiton. continues to work with PT 12 ROS negative Pain: denies Objective - Vital Signs/Intake and Output Vital Signs (last 24 hours): Temp Pulse Resp BP Pulse Ox 97.4 F L 62 14 139/80 99 11/26/16 16:30 11/26/16 17:06 11/26/16 16:30 11/26/16 17:06 11/26/16 16:30 - Medications Medications: Current Medications Acetaminophen (Tylenol 325mg Tab) 650 mg PO Q6 PRN; Protocol PRN Reason: Pain, Mild (1-3) Acetylcysteine (Acetylcysteine 20%) 4 ml IH TIDRESP ALEX PRN Reason: Protocol Last Admin: 11/26/16 16:03 Dose: 4 ml Aspirin (Ecotrin) 81 mg PO DAILY [facility] PRN Reason: Protocol Last Admin: 11/26/16 10:18 Dose: Not Given Atorvastatin Calcium (Lipitor) 20 mg PO HS [facility] PRN Reason: Protocol Last Admin: 11/25/16 22:46 Dose: 20 mg Clopidogrel Bisulfate (Plavix) 75 mg PO DAILY [facility] PRN Reason: Protocol Last Admin: 11/26/16 09:12 Dose: 75 mg Fluocinonide (Lidex 0.05% Cream) 0 gm TOP BID [facility] PRN Reason: Protocol Last Admin: 11/26/16 17:05 Dose: 1 appl Guaifenesin/Dextromethorphan (Robitussin Dm) 5 ml PO Q4H PRN; Protocol PRN Reason: Cough Last Admin: 11/26/16 07:00 Dose: 5 ml Insulin Human Regular (Humulin R Low) 0 units SC ACHS [facility]LEX PRN Reason: Protocol Last Admin: 11/26/16 17:05 Dose: Not Given Levalbuterol HCl (Xopenex) 1.25 mg IH TIDRESP ALEX PRN Reason: Protocol Magnesium Oxide (Mag-Ox) 400 mg PO DAILY [facility] Last Admin: 11/26/16 09:12 Dose: 400 mg Methylprednisolone (Solu-Medrol) 10 mg IVP DAILY [facility] Metoprolol Tartrate (Lopressor) 12.5 mg PO BID [facility]LEX PRN Reason: Protocol Last Admin: 11/26/16 17:06 Dose: 12.5 mg Montelukast Sodium (Singulair) 10 mg PO HS [facility] PRN Reason: Protocol Last Admin: 11/25/16 21:50 Dose: 10 mg Caltrate 600 + D Tab ((Home Med)) 600 mg PO DAILY [facility] Last Admin: 11/26/16 09:12 Dose: 600 mg Ranolazine [Ranexa] (500 Mg (Home Med)) 500 mg PO BID [facility] Last Admin: 11/26/16 17:07 Dose: 500 mg Silodosin [Rapaflo] (8 Mg (Home Med)) 8 mg PO HS [facility] Last Admin: 11/25/16 21:49 Dose: 8 mg Nortriptyline HCl (Pamelor) 10 mg PO DAILY [facility] PRN Reason: Protocol Last Admin: 11/26/16 09:13 Dose: 10 mg Nystatin/Triamcinolone Acetonide (Nystatin/Triamcinolone Cream) 0 ea TOP BID PRN; Protocol PRN Reason: Itching / Pruritus Ondansetron HCl (Zofran Inj) 4 mg IVP Q6H PRN; Protocol PRN Reason: Nausea/Vomiting - Constitutional Appears: Well - Respiratory Exam Respiratory Exam: Clear to Ausculation Bilateral, NORMAL BREATHING PATTERN - Cardiovascular Exam Cardiovascular Exam: REGULAR RHYTHM, +S1, +S2. absent: Murmur - Extremities Exam Extremities Exam: Full ROM, Normal Capillary Refill, Normal Inspection. absent : Joint Swelling, Pedal Edema Assessment and Plan - Assessment and Plan (Free Text) Assessment: Mr. Marques dao 76 y/o man with pmhx significant for stage IV mantle cell lymphoma previously treated with ibrutinib whose medical history has been cmoplicated by lung cancer s/p wedge resection; CAD, BPH, current infections admitted with SIRS in setting of bronchitis and currently in TRCU for PT and completion of abx. #Bronchitis -continue 10mg methylpred q8 -continue nebulizers and bronchodilators per pulmonary -continue meropenemi and doxil for now pending ID recommendations Tyler Myers MD Oncology/Hematology Service
--- NOTE | 2016-11-26 19:02 | CP.PCM.PN ---
Subjective - Date & Time of Evaluation Date of Evaluation: 11/26/16 Time of Evaluation: 17:00 - Subjective Subjective: No issues. 12 ROS negative; Continue to work with physical therapy Pain: denies Objective - Vital Signs/Intake and Output Vital Signs (last 24 hours): Temp Pulse Resp BP Pulse Ox 97.4 F L 62 14 139/80 99 11/26/16 16:30 11/26/16 17:06 11/26/16 16:30 11/26/16 17:06 11/26/16 16:30 - Medications Medications: Current Medications Acetaminophen (Tylenol 325mg Tab) 650 mg PO Q6 PRN; Protocol PRN Reason: Pain, Mild (1-3) Acetylcysteine (Acetylcysteine 20%) 4 ml IH TIDRESP ALEX PRN Reason: Protocol Last Admin: 11/26/16 16:03 Dose: 4 ml Aspirin (Ecotrin) 81 mg PO DAILY [facility] PRN Reason: Protocol Last Admin: 11/26/16 10:18 Dose: Not Given Atorvastatin Calcium (Lipitor) 20 mg PO HS [facility] PRN Reason: Protocol Last Admin: 11/25/16 22:46 Dose: 20 mg Clopidogrel Bisulfate (Plavix) 75 mg PO DAILY [facility] PRN Reason: Protocol Last Admin: 11/26/16 09:12 Dose: 75 mg Fluocinonide (Lidex 0.05% Cream) 0 gm TOP BID [facility] PRN Reason: Protocol Last Admin: 11/26/16 17:05 Dose: 1 appl Guaifenesin/Dextromethorphan (Robitussin Dm) 5 ml PO Q4H PRN; Protocol PRN Reason: Cough Last Admin: 11/26/16 07:00 Dose: 5 ml Insulin Human Regular (Humulin R Low) 0 units SC ACHS [facility] PRN Reason: Protocol Last Admin: 11/26/16 17:05 Dose: Not Given Levalbuterol HCl (Xopenex) 1.25 mg IH TIDRESP ALEX PRN Reason: Protocol Magnesium Oxide (Mag-Ox) 400 mg PO DAILY [facility] Last Admin: 11/26/16 09:12 Dose: 400 mg Methylprednisolone (Solu-Medrol) 10 mg IVP DAILY [facility] Metoprolol Tartrate (Lopressor) 12.5 mg PO BID [facility]LEX PRN Reason: Protocol Last Admin: 11/26/16 17:06 Dose: 12.5 mg Montelukast Sodium (Singulair) 10 mg PO HS [facility] PRN Reason: Protocol Last Admin: 11/25/16 21:50 Dose: 10 mg Caltrate 600 + D Tab ((Home Med)) 600 mg PO DAILY [facility] Last Admin: 11/26/16 09:12 Dose: 600 mg Ranolazine [Ranexa] (500 Mg (Home Med)) 500 mg PO BID [facility] Last Admin: 11/26/16 17:07 Dose: 500 mg Silodosin [Rapaflo] (8 Mg (Home Med)) 8 mg PO HS [facility] Last Admin: 11/25/16 21:49 Dose: 8 mg Nortriptyline HCl (Pamelor) 10 mg PO DAILY [facility] PRN Reason: Protocol Last Admin: 11/26/16 09:13 Dose: 10 mg Nystatin/Triamcinolone Acetonide (Nystatin/Triamcinolone Cream) 0 ea TOP BID PRN; Protocol PRN Reason: Itching / Pruritus Ondansetron HCl (Zofran Inj) 4 mg IVP Q6H PRN; Protocol PRN Reason: Nausea/Vomiting - Constitutional Appears: Well - Respiratory Exam Respiratory Exam: Clear to Ausculation Bilateral, NORMAL BREATHING PATTERN - GI/Abdominal Exam GI & Abdominal Exam: Soft, Normal Bowel Sounds. absent: Tenderness - Extremities Exam Extremities Exam: Full ROM, Normal Capillary Refill, Normal Inspection. absent : Joint Swelling, Pedal Edema Assessment and Plan - Assessment and Plan (Free Text) Assessment: Mr. Marques dao 76 y/o man with pmhx significant for stage IV mantle cell lymphoma previously treated with ibrutinib whose medical history has been cmoplicated by lung cancer s/p wedge resection; CAD, BPH, current infections admitted with SIRS in setting of bronchitis and currently in TRCU for PT and completion of abx. #Bronchitis -discussed with Dr. Martínez; plan on d/c'ing methypred and switching over to PO pred 10mg qd x3 days starting today -continue nebulizations and bronchodilators -stop meropenem (11/21-11/25/16) and doxy (11/22-11/25) per ID recommendations #dispo -pending patient stabilty off IV steroids abx consider for discharge tomorrow Rui Myers Md Oncology [facility]
--- NOTE | 2016-11-26 21:01 | CON ---
DATE: 11/26/2016 LOCATION: The patient is seen in transitional care this morning in room 319. CHIEF COMPLAINT: Weakness times several days' duration. HISTORY OF PRESENT ILLNESS: This is a 76-year-old male with multiple hospitalizations with a history of mantle cell lymphoma status post chemotherapy, history of coronary artery disease, history of BPH, dyslipidemia, history of urinary tract infections and candidemia, history of bilateral pneumonia, multiple hospitalizations, history of hypertension, asthma, history of prostate surgery, cardiac cath, angioplasty and stent placement, right thumb surgery, who was recently in the hospital in the acute care, was treated for sepsis and acute bronchitis, now transferred to transitional care for physical therapy. The patient states he is doing much better. No fevers. No chills. No chest pain. PAST MEDICAL HISTORY: Significant for mantle cell lymphoma, coronary artery disease, BPH, dyslipidemia, urinary tract infections, candidemia, pneumonia, hypertension, asthma, history of zahraa parapsilosis fungemia, history of removal of Port-A-Cath. PAST SURGICAL HISTORY: Significant for prostate surgery, cardiac cath and angioplasty and stent placement, right thumb surgery, removal of Port-A-Cath. ALLERGIES: THE PATIENT HAS MULTIPLE ALLERGIES INCLUDE ZITHROMAX, PENICILLIN, AND CEPHALEXIN. MEDICATIONS: Reviewed. PHYSICAL EXAMINATION VITAL SIGNS: The patient's temperature 98, blood pressure is 120/70, respiratory rate of 16. HEENT: Unremarkable. NECK: Supple. LUNGS: Decreased breath sounds. HEART: Normal S1 and S2. ABDOMEN: Soft and nontender. LABORATORY DATA: Noted white count to be 4, hemoglobin of 10, platelets of 182. Chemistries are noted. Cultures are negative. ASSESSMENT AND PLAN: This is a 76-year-old male with multiple allergies with sepsis with an acute bronchitis, viral illness, history of urinary tract infection with Escherichia coli, and the patient has received of five days of meropenem and doxycycline. The meropenem was discontinued yesterday. Today's day #6 of doxycycline with blood cultures negative,sputum culture is still pending. The patient is much improved. Currently on Solu-Medrol. We will also discontinue the doxycycline. Of note is many, many years ago, the patient episode of pancreatitis secondary to Tygacil. No further antibiotics at this point; however, at risk for developing nosocomial infections. Marvin Callahan MD
[2016-11-26] MEDS: SILODOSIN 8 MG PO SCH (21:36)
[2016-11-27] MEDS: guaiFENesin DM 100 mg-10 mg/5 ml UD PO PRN ×2 (00:16→08:44)
--- NOTE | 2016-11-27 01:40 | PN ---
PULMONARY PROGRESS NOTE DATE: 11/26/2016 REFERRING PHYSICIAN: Dr. Myers. SUBJECTIVE: He is lying on the bed at 45 degrees. Feels a little better, still has a cough though. Breathing is better. No nausea, vomiting, or diarrhea. No leg swelling. OBJECTIVE: GENERAL: In no acute distress. VITAL SIGNS: Temperature is 98, heart rate is 62, respiratory rate is 18, blood pressure is 139/80, and pulse oximetry 99% on room air. HEENT: Moist mucous membrane. Small oral cavity. NECK: Supple. No JVD. LUNGS: Had a few scattered rhonchi and wheezing. HEART: S1 and S2. ABDOMEN: Soft and nontender. No organomegaly. EXTREMITIES: No edema. NEUROLOGICAL: Awake and alert. Follow simple commands. MEDICATIONS: He is on Mucomyst 20% inhale twice a day, also on vitamin D plus calcium 600 mg daily, Ecotrin 81 mg daily, insulin coverage, Lidex 0.5% twice a day, Lipitor 20 mg daily, metoprolol tartrate 12.5 mg twice a day, magnesium oxide 400 mg daily, also on Nystatin/triamcinolone twice a day, Pamelor 10 mg daily, Plavix 75 mg daily, Ranexa is at 500 mg twice a day, Robitussin DM 5 mL q. 4 hours p.r.n., Rapaflo 8 mg at bedtime, Singulair 10 mg at bedtime, Solu-Medrol 10 mg IV daily, Tylenol p.r.n. basis, Xopenex inhale three times a day, and Zofran p.r.n. basis. LABORATORY DATA: Showed blood sugar this morning 227. IMPRESSION AND PLAN: Acute bronchitis versus chronic obstructive lung disease, history of mantle cell carcinoma, history of chemotherapy, I believe he also had radiation therapy, history of lung cancer requiring wedge resection, cardiomyopathy, coronary artery disease, history of coronary artery stent, oropharyngeal dysphagia, modified diet, and may have sleep apnea syndrome. Continue p.o. and inhaled bronchodilator. Seen by infectious disease. Gastric prophylaxis and deep venous thrombosis prophylaxis, and incentive spirometer. Thank you and we will follow with you. Thanh Duffy MD
[2016-11-27] MEDS: Insulin Reg-LOW-Coverage SC SCH ×3 (06:57→17:27)
[2016-11-27] MEDS: Levalbuterol 1.25 MG/3 ML Inhal Soln UD IH SCH ×2 (07:29→16:17)
[2016-11-27] MEDS: Acetylcysteine 20% Inhal Soln (4ml) IH SCH ×2 (07:29→16:17)
[2016-11-27] MEDS: [UNRECOGNIZED DRUG - OTHER] PO SCH (09:48)
[2016-11-27] MEDS: CALTRATE PO SCH (09:48)
[2016-11-27] MEDS: Magnesium Oxide 400 mg Tab UD PO SCH (09:49)
[2016-11-27] MEDS: Ranolazine [Ranexa] 500 MG (HOME MED) PO SCH ×2 (09:52→17:33)
[2016-11-27] MEDS ORDERED: MethylPREDNISolone 40 mg Vial IVP SCH (10:00)
--- NOTE | 2016-11-27 16:19 | CP.PCM.PN ---
Subjective - Date & Time of Evaluation Date of Evaluation: 11/27/16 Time of Evaluation: 11:45 - Subjective Subjective: Feels better, no fevers, less cough, less phlegm. Objective - Vital Signs/Intake and Output Vital Signs (last 24 hours): Temp Pulse Resp BP Pulse Ox 97.4 F L 62 14 139/80 99 11/26/16 16:30 11/26/16 17:06 11/26/16 16:30 11/26/16 17:06 11/26/16 16:30 - Medications Medications: Current Medications Acetaminophen (Tylenol 325mg Tab) 650 mg PO Q6 PRN; Protocol PRN Reason: Pain, Mild (1-3) Acetylcysteine (Acetylcysteine 20%) 4 ml IH TIDRESP ALEX PRN Reason: Protocol Last Admin: 11/27/16 07:29 Dose: 4 ml Aspirin (Ecotrin) 81 mg PO DAILY [facility] PRN Reason: Protocol Last Admin: 11/26/16 10:18 Dose: Not Given Atorvastatin Calcium (Lipitor) 20 mg PO HS [facility] PRN Reason: Protocol Last Admin: 11/26/16 21:36 Dose: 20 mg Clopidogrel Bisulfate (Plavix) 75 mg PO DAILY [facility] PRN Reason: Protocol Last Admin: 11/26/16 09:12 Dose: 75 mg Fluocinonide (Lidex 0.05% Cream) 0 gm TOP BID [facility] PRN Reason: Protocol Last Admin: 11/26/16 17:05 Dose: 1 appl Guaifenesin/Dextromethorphan (Robitussin Dm) 5 ml PO Q4H PRN; Protocol PRN Reason: Cough Last Admin: 11/27/16 08:44 Dose: 5 ml Insulin Human Regular (Humulin R Low) 0 units SC ACHS [facility] PRN Reason: Protocol Last Admin: 11/27/16 06:57 Dose: 1 units Levalbuterol HCl (Xopenex) 1.25 mg IH TIDRESP ALEX PRN Reason: Protocol Last Admin: 11/27/16 07:29 Dose: 1.25 mg Magnesium Oxide (Mag-Ox) 400 mg PO DAILY [facility] Last Admin: 11/26/16 09:12 Dose: 400 mg Methylprednisolone (Solu-Medrol) 10 mg IVP DAILY [facility] Metoprolol Tartrate (Lopressor) 12.5 mg PO BID [facility] PRN Reason: Protocol Last Admin: 11/26/16 17:06 Dose: 12.5 mg Montelukast Sodium (Singulair) 10 mg PO HS [facility] PRN Reason: Protocol Last Admin: 11/26/16 21:37 Dose: 10 mg Caltrate 600 + D Tab ((Home Med)) 600 mg PO DAILY [facility] Last Admin: 11/26/16 09:12 Dose: 600 mg Ranolazine [Ranexa] (500 Mg (Home Med)) 500 mg PO BID [facility] Last Admin: 11/26/16 17:07 Dose: 500 mg Silodosin [Rapaflo] (8 Mg (Home Med)) 8 mg PO HS [facility] Last Admin: 11/26/16 21:36 Dose: 8 mg Nortriptyline HCl (Pamelor) 10 mg PO DAILY [facility] PRN Reason: Protocol Last Admin: 11/26/16 09:13 Dose: 10 mg Nystatin/Triamcinolone Acetonide (Nystatin/Triamcinolone Cream) 0 ea TOP BID PRN; Protocol PRN Reason: Itching / Pruritus Ondansetron HCl (Zofran Inj) 4 mg IVP Q6H PRN; Protocol PRN Reason: Nausea/Vomiting - Constitutional Appears: Non-toxic, No Acute Distress - Head Exam Head Exam: NORMAL INSPECTION - ENT Exam ENT Exam: Mucous Membranes Moist - Neck Exam Neck Exam: absent: Lymphadenopathy, Meningismus - Respiratory Exam Respiratory Exam: Decreased Breath Sounds - Cardiovascular Exam Cardiovascular Exam: +S1, +S2 - GI/Abdominal Exam GI & Abdominal Exam: Soft. absent: Tenderness Assessment and Plan - Assessment and Plan (Free Text) Plan: Assessment Consider sepsis due to acute bronchitis, R/O systemic viral illness, clinically improved and S/P treatment history of UTI with E. 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 - S /P removal; now with new right anterior chest wall port-a-cath mantle cell lymphoma on chemotherapy coronary artery disease benign prostatic hyperplasia dyslipidemia history of urinary tract infection Plan completed 5 days of MErrem and Doxycycline - will monitor the patient off antibiotics while the patient is in the hospital since he is at risk for nosocomial infections
--- NOTE | 2016-11-27 16:33 | CP.PCM.DIS ---
Provider - Provider Date of Admission: 11/25/16 12:14 Attending physician: Ted Santoyo MD Primary care physician: Tyler Myers MD Consults: ID - Dr. Marshall Pulmonary - Dr. Duffy Cardiology - Dr. Perez Time Spent in preparation of Discharge (in minutes): 35 Hospital Course - Lab Results Lab Results: Most Recent Lab Values POC Glucose (mg/dL) 227 mg/dL (65-110) H 11/26/16 21:48 - Hospital Course Hospital Course: Patient is a 76yo male with past medical history of Stage IV Mantle cell lymphoma treated with ibrutinib and rituxan, lung cancer s/p wedge resection, CAD s/p stenting, BPH, hyperlipidemia, recurrent UTI, recurrent bronchitis, prior hospitalizations for pneumonia treatment that had been admitted to [facility] for progressive cough, shortness of breath and fever. He was subsequently seen by infectious disease, pulmonary and cardiology and treated for bronchitis. He had completed a course of meropenem and doxycycline per ID recommendations. He was also treated with tapering dose steroids, bronchodilators and nebulizers. He reported improvement of his symptoms and was transferred to the transitional care unit for physical therapy and rehabilitation. He was subsequently discharged home on oral prednisone 10mg daily for 3 days. He was instructed to follow up with his primary doctor as well as his booster pump operator and oncologist. Discharge Exam - Head Exam Head Exam: NORMAL INSPECTION - Eye Exam Eye Exam: EOMI, PERRL - ENT Exam ENT Exam: Mucous Membranes Moist - Respiratory Exam Respiratory Exam: Decreased Breath Sounds. absent: Rales, Rhonchi, Wheezes - Cardiovascular Exam Cardiovascular Exam: RRR, +S1, +S2. absent: Gallop, Rubs - GI/Abdominal Exam GI & Abdominal Exam: Soft. absent: Distended, Firm, Guarding, Rigid, Tenderness - Neurological Exam Neurological exam: Alert, CN II-XII Intact, Oriented x3 - Psychiatric Exam Psychiatric exam: Normal Affect, Normal Mood - Skin Skin Exam: Dry, Intact, Normal Color, Warm Discharge Plan - Follow Up Plan Condition: GOOD Disposition: HOME/ ROUTINE Instructions: Lung Cancer (DC), Non-Hodgkin Lymphoma (DC), Non-Hodgkin Lymphoma (GEN), Fever in Adults (GEN), Dyspnea (GEN) Additional Instructions: Please follow up with your PMD 1 week after discharge. Please continue to take your medications as prescribed by your doctor. Referrals: Lucia SPENCE,MD Tyler [Primary Care Provider] -
[2016-11-27 17:20] VITALS: BP 120/71; PULSE 64; RESP 18; TEMP 98.1; O2SAT 93
--- NOTE | 2016-11-27 22:02 | PN ---
PULMONARY PROGRESS NOTE DATE: 11/27/2016 REFERRING PHYSICIAN: Dr. Myers. SUBJECTIVE: He is participating in therapy. Night was unremarkable. Still has cough and sputum production, but feels much better. No nausea, no vomiting or diarrhea. No leg pain. No leg swelling. OBJECTIVE GENERAL: In no acute distress. VITAL SIGNS: Temperature is 98, heart rate is 61, respiratory rate is 20, blood pressure is 125/70, and pulse oximetry 99% on 2 L nasal cannula. HEENT: Moist mucous membrane. Crowded airway. NECK: Supple. No JVD. LUNGS: Has a fair airflow with rhonchi. HEART: S1 and S2. ABDOMEN: Soft, nontender. No organomegaly. EXTREMITIES: There is no edema. NEUROLOGIC: Awake and alert. Follows simple commands. MEDICATIONS: He is on Mucomyst 20% inhale three times a day, vitamin D and calcium 1 tablet daily, Ecotrin 81 mg daily, insulin coverage, Lidex 0.05 mg twice a day, Lipitor 20 mg daily, metoprolol tartrate 12.5 mg twice a day, magnesium oxide 400 mg daily, Nystatin/triamcinolone twice a day, nortriptyline 10 mg daily, Plavix 75 mg daily, Ranexa 500 mg twice a day, Singulair 10 mg daily, Rapaflo 8 mg at bedtime, Solu-Medrol 10 mg daily, Tylenol p.r.n. basis, Xopenex q. 8 hours, and Zofran p.r.n. basis. LABORATORY DATA: Showed blood sugar this morning 227. IMPRESSION AND PLAN: Acute bronchitis/chronic obstructive lung disease, mantle cell carcinoma, history of chemotherapy, history of lung cancer requiring wedge resection, cardiomyopathy, coronary artery disease, history of coronary artery stent, oropharyngeal dysphagia, modified diet, and may have sleep apnea syndrome. Pulmonary point of view, he is doing much better, still has some residual cough and shortness of breath. We will suggest PFT as an outpatient. Sleep study as an outpatient. Continue inhaled bronchodilator. Aspiration precautions. Thank you and we will follow with you. Thanh Duffy MD [facility] # [id number]
== END 2016-11-27 19:49 | disposition home or self-care (01) | DRG 872 ==
LOC: TRCU 12:14
PROVIDERS: ADMIT Family Medicine; ATTEND Family Medicine
PROC: F07Z9FZ Gait Training/Functional Ambulation Treatment using Assistive, Adaptive, Supportive or Protective Equipment (ICD-10-PCS; principal; 2016-11-25)
PROC: F07M6ZZ Therapeutic Exercise Treatment of Musculoskeletal System - Whole Body (ICD-10-PCS; 2016-11-25)
DX: A41.9 Sepsis, unspecified organism (principal); J44.0 Chronic obstructive pulmonary disease with (acute) lower respiratory infection; I42.9 Cardiomyopathy, unspecified; N39.0 Urinary tract infection, site not specified; J20.9 Acute bronchitis, unspecified; B34.9 Viral infection, unspecified; E78.5 Hyperlipidemia, unspecified; I10 Essential (primary) hypertension; I25.10 Atherosclerotic heart disease of native coronary artery without angina pectoris; N40.0 Benign prostatic hyperplasia without lower urinary tract symptoms; Z85.118 Personal history of other malignant neoplasm of bronchus and lung; Z85.72 Personal history of non-Hodgkin lymphomas; Z87.01 Personal history of pneumonia (recurrent); Z87.440 Personal history of urinary (tract) infections; Z92.21 Personal history of antineoplastic chemotherapy; Z95.5 Presence of coronary angioplasty implant and graft; Z87.19 Personal history of other diseases of the digestive system

== ENCOUNTER 2017-06-18 10:43 | Inpatient (IN) | payer MEDICARE, OTHER ==
[2017-06-18 10:55] VITALS: BMI 27.4
--- NOTE | 2017-06-18 11:14 | ED PDOC ---
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 Patient is also complaining of shoulder and neck pain. Patient denies other complaints. Time/Duration: Prior to Arrival Symptom Onset: Sudden Symptom Course: Unchanged Context: Home Past Medical History - Provider Review Nursing Documentation Reviewed: Yes - Past History Past History: Unable to Obtain - Infectious Disease Hx of Infectious Diseases: None - Tetanus Immunization Tetanus Immunization: Unknown - Cardiac Hx Cardiac Disorders: Yes (CAD, stents) - Pulmonary Hx Respiratory Disorders: Yes Hx Asthma: Yes Hx Bronchitis: Yes Hx Pneumonia: Yes - Neurological Hx Neurological Disorder: Yes - HEENT Hx HEENT Disorder: Yes (wears glasses) Hx Deafness: Yes ([place] b/l hearing aids) - Renal Hx Renal Disorder: No - Endocrine/Metabolic Hx Endocrine Disorders: Yes Hx Diabetes Mellitus Type 2: Yes - Hematological/Oncological Hx Blood Disorders: Yes Hx Anemia: Yes Hx Cancer: Yes (mantle cell lymphoma "active") - Integumentary Hx Dermatological Disorder: No - Musculoskeletal/Rheumatological Hx Falls: Yes - Gastrointestinal Hx Gastrointestinal Disorders: No - Genitourinary/Gynecological Hx Reproductive Disorders: No - Psychiatric Hx Psychophysiologic Disorder: No Hx Substance Use: No - Past Surgical History Past Surgical History: Unable to Obtain - Surgical History Hx Cardiac Catheterization: Yes (angioplasty 4 stents) Hx Coronary Stent: Yes Hx Orthopedic Surgery: Yes (right thumb) - Anesthesia Hx Anesthesia: Yes Hx Anesthesia Reactions: No Hx Malignant Hyperthermia: No - Suicidal Assessment Feels Threatened In Home Enviroment: No Family/Social History - Physician Review Nursing Documentation Reviewed: Yes Family/Social History: Unknown Family HX Smoking Status: Never Smoked Hx Alcohol Use: No Hx Substance Use: No Hx Substance Use Treatment: No Allergies/Home Meds Allergies/Adverse Reactions: Allergies azithromycin Allergy (Severe, Verified 11/26/16 06:51) ANGIOEDEMA erythromycin base Allergy (Severe, Verified 11/26/16 06:51) ANGIOEDEMA Penicillins Allergy (Severe, Verified 11/26/16 06:51) ANAPHYLAXIS cephalexin monohydrate [From Keflex] Allergy (Intermediate, Verified 11/26/16 06 :51) RASH gabapentin Allergy (Intermediate, Verified 11/26/16 06:51) RASH pregabalin Allergy (Intermediate, Verified 11/26/16 06:51) RASH Sulfa (Sulfonamide Antibiotics) Allergy (Intermediate, Verified 11/26/16 06:51) RASH nitro paste Allergy (Intermediate, Uncoded 11/25/16 12:29) DIZZINESS/HYPOTENSION CAUSE HYPOTENSION Imbrovica Allergy (Uncoded 11/25/16 12:29) FEVER Home Medications: Home Meds Medication Instructions Recorded Confirmed Aspirin [Aspirin EC] 81 mg PO DAILY 09/10/15 06/18/17 Levalbuterol [Xopenex] 1.25 mg IH TID 01/31/16 06/18/17 Acetaminophen [Tylenol (Renal)] 650 mg PO Q6 PRN 04/21/16 06/18/17 Metoprolol Tartrate [Lopressor] 25 mg PO HS 04/21/16 06/18/17 Pantoprazole [Protonix EC Tab] 40 mg PO DAILY 04/21/16 06/18/17 Calcium Carbonate/Vitamin D3 600 mg PO DAILY 06/03/16 06/18/17 [Caltrate 600 + D Soft Chew Tab] Magnesium Oxide [Magnesium] 400 mg PO HS 06/03/16 06/18/17 Nortriptyline HCl [Pamelor] 10 mg PO DAILY 06/03/16 06/18/17 Ranolazine [Ranexa] 500 mg PO BID 06/03/16 06/18/17 Silodosin [Rapaflo] 8 mg PO HS 06/03/16 06/18/17 Ezetimibe [Zetia] 1 tab PO DAILY 06/18/17 06/18/17 Review of Systems - Physician Review All systems were reviewed & negative as marked: Yes - Review of Systems Constitutional: absent: Fevers Respiratory: absent: SOB Cardiovascular: Syncope Gastrointestinal: absent: Abdominal Pain Musculoskeletal: Neck Pain, Other (shoulder pain ) Physical Exam Vital Signs Reviewed: Yes Vital Signs Temp Pulse Resp BP Pulse Ox 06/18/17 12:52 69 18 117/86 100 06/18/17 11:01 97.5 F L 59 L 18 108/72 96 Temperature: Afebrile Blood Pressure: Normal Pulse: Bradycardic Respiratory Rate: Normal Appearance: Positive for: Well-Appearing, Non-Toxic, Comfortable Pain Distress: None Mental Status: Positive for: Alert and Oriented X 3 - Systems Exam Head: Present: Atraumatic, Normocephalic Pupils: Present: PERRL Extroacular Muscles: Present: EOMI Conjunctiva: Present: Normal Respiratory/Chest: Present: Clear to Auscultation, Good Air Exchange. No: Respiratory Distress, Accessory Muscle Use, Wheezes, Rales, Rhonchi Cardiovascular: Present: Regular Rate and Rhythm, Normal S1, S2. No: Murmurs Lower Extremity: Present: Normal Inspection, NORMAL PULSES, Normal ROM, Neurovascularly Intact, Capillary Refill < 2 s. No: Edema, Cyanosis, Tenderness , Swelling, Erythema, Deformity Neurological: Present: GCS=15, CN II-XII Intact, Speech Normal Skin: Present: Warm, Dry, Normal Color. 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 Plan: -- EKG -- Chest X-ray -- Labs -- Reassess and disposition Progress Notes: EKG: Ordered, reviewed, and independently interpreted the EKG. Rate : 57 BPM Rhythm : sinus bradycardia Interpretation : No ST-segment elevations or depressions, no T-wave inversions, normal intervals. Comparison : No previous EKG for comparison. 06/18/17 16:56 pt with known cad, presents with near syncope. lasb ekg head ct neg. case discussed with dr pizarro, accepts for obs. - Lab Interpretations Lab Results: 06/18/17 11:20 06/18/17 11:20 Lab Results 06/18/17 12:50: Urine Color Yellow, Urine Appearance Clear, Urine pH 7.0, Ur Specific [place] 1.010, Urine Protein Negative, Urine Glucose (UA) Negative, Urine Ketones Negative, Urine Blood Negative, Urine Nitrate Negative, Urine Bilirubin Negative, Urine Urobilinogen 0.2, Ur Leukocyte Esterase Negative 06/18/17 11:20: Sodium 138, Potassium 4.5, Chloride 100, Carbon Dioxide 28, Anion Gap 14, BUN 21, Creatinine 1.2, Est GFR ( Amer) > 60, Est GFR (Non- Af Amer) 59, Random Glucose 132 H, Calcium 8.7, Magnesium 2.1, Total Bilirubin 1.3, AST 28, ALT 23, Alkaline Phosphatase 100, Lactate Dehydrogenase 469, Total Creatine Kinase 42, Troponin I < 0.01, NT-Pro-B Natriuret Pep 216, Total Protein 6.9, Albumin 4.0, Globulin 2.9, Albumin/Globulin Ratio 1.4 06/18/17 11:20: PT 13.0 H, INR 1.13 H, APTT 29.3 06/18/17 11:20: WBC 7.3 D, RBC 4.08, Hgb 11.9 L, Hct 35.4 L, MCV 86.8, MCH 29.2 , MCHC 33.6, RDW 14.0, Plt Count 159, MPV 10.2, Gran % 71.9 H, Lymph % (Auto) 20.0 L, Andrew % (Auto) 5.1, Eos % (Auto) 2.9, Baso % (Auto) 0.1, Gran # 5.22, Lymph # (Auto) 1.5, Andrew # (Auto) 0.4, Eos # (Auto) 0.2, Baso # (Auto) 0.01 I have reviewed the lab results: Yes - RAD Interpretation Radiology Orders: 06/18/17 11:06 CHEST PORTABLE [RAD] Stat 06/18/17 11:33 HEAD W/O CONTRAST [CT] Stat Radiation Control Technician: Radiologist - EKG Interpretation Interpreted by ED Physician: Yes Type: 12 lead EKG - Medication Orders Current Medication Orders: Aspirin (Ecotrin) 81 mg PO DAILY [facility] Atorvastatin Calcium (Lipitor) 20 mg PO HS [facility] Clopidogrel Bisulfate (Plavix) 75 mg PO DAILY [facility] Levalbuterol HCl (Xopenex) 1.25 mg IH TID [facility] Magnesium Oxide (Mag-Ox) 400 mg PO HS [facility] Metoprolol Tartrate (Lopressor) 25 mg PO HS [facility] Non-Formulary Medication (Calcium Carbonate/Vitamin D3 [Caltrate 600 + D Soft Chew Tab]) 600 mg PO DAILY [facility] Non-Formulary Medication (Ranolazine [Ranexa]) 500 mg PO BID [facility] Non-Formulary Medication (Silodosin [Rapaflo]) 8 mg PO HS [facility] Nortriptyline HCl (Pamelor) 10 mg PO DAILY [facility] Ondansetron HCl (Zofran Tab) 4 mg PO Q6H PRN PRN Reason: Nausea/Vomiting Pantoprazole Sodium (Protonix Ec Tab) 40 mg PO DAILY [facility] - Scribe Statement The provider has reviewed the documentation as recorded by the Tl Jimenez Provider Bhupendrae Attestation: All medical record entries made by the Scribe were at my direction and personally dictated by me. I have reviewed the chart and agree that the record accurately reflects my personal performance of the history, physical exam, medical decision making, and the department course for this patient. I have also personally directed, reviewed, and agree with the discharge instructions and disposition. Disposition/Present on Arrival - Present on Arrival Any Indicators Present on Arrival: No History of DVT/PE: No History of Uncontrolled Diabetes: No Urinary Catheter: No History of Decub. Ulcer: No History Surgical Site Infection Following: None - Disposition Have Diagnosis and Disposition been Completed?: Yes Diagnosis: Shoulder pain, Near syncope Disposition: HOSPITALIZED Disposition Time: 01:00 Condition: FAIR
--- NOTE | 2017-06-18 11:27 | RAD ---
HISTORY: Chest pain COMPARISON: 11/20/2016 FINDINGS: The right MediPort terminates at the cavoatrial junction. LUNGS: The lungs are well inflated and clear. PLEURA: No significant pleural effusion identified, no pneumothorax apparent. CARDIOVASCULAR: The heart is normal in size. There are multiple surgical clips in the right hilum. OSSEOUS STRUCTURES: No significant abnormalities. VISUALIZED UPPER ABDOMEN: Normal. OTHER FINDINGS: None. IMPRESSION: No acute findings.
[2017-06-18 11:42] LABS: BASO # 0.01 K/mm3 (0.0-2.0); BASO % 0.1 % (0.0-3.0); EOS # 0.2 (0.0-0.7); EOS % 2.9 % (1.5-5.0); GRAN # 5.22 (1.4-6.5); GRAN % 71.9 % (50.0-68.0); HEMOGLOBIN 11.9 g/dL (14.0-18.0); LYMPH # 1.5 (1.2-3.4); MEAN CELL VOLUME 86.8 fl (80.0-105.0); MEAN CORPUSCULAR HEMOGLOBIN 29.2 pg (25.0-35.0); MEAN CORPUSCULAR HGB CONC 33.6 g/dl (31.0-37.0); MEAN PLATELET VOLUME 10.2 fl (7.0-11.0); MONO # 0.4 (0.1-0.6); MONO % 5.1 % (1.0-6.0); RBC 4.08 10^6/uL (3.5-6.1); WHITE BLOOD COUNT 7.3 10^3/ul (4.5-11.0)
[2017-06-18 11:49] LABS: ALB/GLOB RATIO 1.4 (1.1-1.8); ALT/SGPT 23 U/L (7-56); AST/SGOT 28 U/L (17-59); BLOOD UREA NITROGEN 21 mg/dL (7-21); CALCIUM 8.7 mg/dL (8.4-10.5); GFR AFRICAN-AMERICAN > 60; GFR NON-AFRICAN AMERICAN 59
[2017-06-18 11:59] LABS: B-TYPE NATRIURETIC PEPTIDE 216 pg/mL (0-450); TROPONIN I < 0.01 ng/mL
[2017-06-18 12:01] LABS: INR 1.13 (0.93-1.08); PARTIAL THROMBOPLASTIN TIME 29.3 Seconds (25.1-36.5)
--- NOTE | 2017-06-18 12:55 | CT ---
PROCEDURE: CT HEAD WITHOUT CONTRAST. HISTORY: near syncope COMPARISON: 06/13/2016. TECHNIQUE: Axial computed tomography images were obtained through the head/brain without intravenous contrast. Radiation dose: Total exam DLP = 1010.02 mGy-cm. This CT exam was performed using one or more of the following dose reduction techniques: Automated exposure control, adjustment of the mA and/or kV according to patient size, and/or use of iterative reconstruction technique. FINDINGS: HEMORRHAGE: No intracranial hemorrhage. BRAIN: Again seen is cystic encephalomalacia in the left frontal lobe with volume loss. There are mild chronic microangiopathic changes. There is no mass, mass effect or abnormal extra-axial fluid collection.There are coarse atherosclerotic calcifications in the cavernous carotid arteries. VENTRICLES: There is mild age-related global parenchymal volume loss and proportionate enlargement of the ventricles and cortical sulci. There is a eleanor cisterna magna the CALVARIUM: There are probable postsurgical changes in the left frontal sinus. Otherwise, the skull base and calvarium are normal. PARANASAL SINUSES: There is mild mucosal thickening in the right maxillary and right ethmoid sinuses. The remaining included paranasal sinuses are predominantly clear. MASTOID AIR CELLS: The right mastoid air cells are clear. The left mastoid air cells are underdeveloped. OTHER FINDINGS: There is stable implant in the left frontal soft tissues. IMPRESSION: No acute intracranial abnormality. Stable chronic findings.
[2017-06-18 13:06] LABS: URINE BILIRUBIN NEGATIVE (NEGATIVE); URINE BLOOD NEGATIVE (NEGATIVE); URINE GLUCOSE (UA) NEGATIVE (NEGATIVE); URINE LEUKOCYTE ESTERASE NEGATIVE Leu/uL (NEGATIVE); URINE PROTEIN NEGATIVE mg/dL (<30 mg/dL); URINE UROBILINOGEN 0.2 E.U./dL (<1 E.U./dL)
[2017-06-18 13:16] LABS: URINE APPEARANCE CLEAR (CLEAR); URINE COLOR YELLOW (YELLOW)
--- NOTE | 2017-06-18 15:21 | CP.PCM.HP ---
History of Present Illness - History of Present Illness History of Present Illness: PGY-2 H&P 77 yo male with PMH of stage IV mantle cell lymphoma, h/o lung ca s/p wedge resection, CAD with coronary stents, BPH, Hyperlipidemia, recurrent UTI presents to ED with shoulder and neck pain. Patient states that this morning while making breakfast he began to feel unsteady with a darkness and shoulder pain. He denies dizziness or loss of consciousness. He states the unsteady feeling lasted about 15 minutes and passed. He reports previous episodes when he would stand suddenly however this was while standing making breakfast. He report persistent bilateral shoulder pain. He states that his massaged his shoulders an the pain improved, however it returned. He denies chest pain, fever , chill abd pain, dizziness, sob, n/v, diarrhea, constipation. PMH: stage IV mantle cell lymphoma, h/o lung ca s/p wedge resection, CAD with coronary stents, BPH, Hyperlipidemia, recurrent UTI PSH: angioplasty 4 stents, wedge resection social history: denies smoking, alcohol use, denies illicit drug use family history: heart disease allergy: azithromycin, erythromycin, penicillins, cephalexin, gabapentin, sulfa , nitro paste, imbrovica Present on Admission - Present on Admission Any Indicators Present on Admission: No Review of Systems - Review of Systems All systems: reviewed and no additional remarkable complaints except Past Patient History - Infectious Disease Hx of Infectious Diseases: None - Tetanus Immunizations Tetanus Immunization: Unknown - Past Medical History & Family History Past Medical History?: Yes - Past Social History Smoking Status: Never Smoked - CARDIAC Hx Cardiac Disorders: Yes (CAD, stents) - PULMONARY Hx Respiratory Disorders: Yes Hx Asthma: Yes Hx Bronchitis: Yes Hx Pneumonia: Yes - NEUROLOGICAL Hx Neurological Disorder: Yes - HEENT Hx HEENT Problems: Yes (wears glasses) Hx Deafness: Yes ([place], b/l hearing aids) - RENAL Hx Chronic Kidney Disease: No - ENDOCRINE/METABOLIC Hx Endocrine Disorders: Yes Hx Diabetes Mellitus Type 2: Yes - HEMATOLOGICAL/ONCOLOGICAL Hx Blood Disorders: Yes Hx Anemia: Yes Hx Cancer: Yes (mantle cell lymphoma "active") - INTEGUMENTARY Hx Dermatological Problems: No - MUSCULOSKELETAL/RHEUMATOLOGICAL Hx Falls: Yes - GASTROINTESTINAL Hx Gastrointestinal Disorders: No - GENITOURINARY/GYNECOLOGICAL Hx Reproductive Disorders: No - PSYCHIATRIC Hx Psychophysiologic Disorder: No Hx Substance Use: No - SURGICAL HISTORY Hx Cardiac Catheterization: Yes (angioplasty 4 stents) Hx Coronary Stent: Yes Hx Orthopedic Surgery: Yes (right thumb) - ANESTHESIA Hx Anesthesia: Yes Hx Anesthesia Reactions: No Hx Malignant Hyperthermia: No Meds Allergies/Adverse Reactions: Allergies Allergy/AdvReac Type Severity Reaction Status Date / Time azithromycin Allergy Severe ANGIOEDEMA Verified 11/26/16 06:51 erythromycin base Allergy Severe ANGIOEDEMA Verified 11/26/16 06:51 Penicillins Allergy Severe ANAPHYLAXIS Verified 11/26/16 06:51 cephalexin monohydrate Allergy Intermediate RASH Verified 11/26/16 06:51 [From Keflex] gabapentin Allergy Intermediate RASH Verified 11/26/16 06:51 pregabalin Allergy Intermediate RASH Verified 11/26/16 06:51 Sulfa (Sulfonamide Allergy Intermediate RASH Verified 11/26/16 06:51 Antibiotics) nitro paste Allergy Intermediate DIZZINESS/H Uncoded 11/25/16 12:29 YPOTENSION Imbrovica Allergy FEVER Uncoded 11/25/16 12:29 Physical Exam - Constitutional Appears: Well, No Acute Distress - Head Exam Head Exam: ATRAUMATIC, NORMOCEPHALIC - Eye Exam Eye Exam: EOMI, Normal appearance - ENT Exam ENT Exam: Mucous Membranes Moist - Respiratory Exam Respiratory Exam: Clear to Auscultation Bilateral, NORMAL BREATHING PATTERN. absent: Rhonchi, Wheezes, Respiratory Distress - Cardiovascular Exam Cardiovascular Exam: REGULAR RHYTHM, +S1, +S2. absent: Bradycardia, Tachycardia , Systolic Murmur - GI/Abdominal Exam GI & Abdominal Exam: Normal Bowel Sounds, Soft. absent: Diminished Bowel Sounds , Distended, Tenderness - Extremities Exam Extremities exam: Positive for: normal inspection. Negative for: pedal edema, tenderness - Neurological Exam Neurological exam: Alert, Oriented x3 - Psychiatric Exam Psychiatric exam: Normal Affect, Normal Mood - Skin Skin Exam: Dry, Intact, Normal Color, Warm Results - Vital Signs Recent Vital Signs: Last Vital Signs Temp 97.5 F L 06/18/17 11:01 Pulse 69 06/18/17 12:52 Resp 18 06/18/17 12:52 BP 117/86 06/18/17 12:52 Pulse Ox 100 06/18/17 12:52 - Labs Result Diagrams: 06/18/17 11:20 06/18/17 11:20 Labs: Laboratory Results - last 24 hr 06/18/17 06/18/17 06/18/17 11:20 11:20 11:20 WBC 7.3 D RBC 4.08 Hgb 11.9 L Hct 35.4 L MCV 86.8 MCH 29.2 MCHC 33.6 RDW 14.0 Plt Count 159 MPV 10.2 Gran % 71.9 H Lymph % (Auto) 20.0 L [place] % (Auto) 5.1 Eos % (Auto) 2.9 Baso % (Auto) 0.1 Gran # 5.22 Lymph # (Auto) 1.5 [place]oca # (Auto) 0.4 Eos # (Auto) 0.2 Baso # (Auto) 0.01 PT 13.0 H INR 1.13 H APTT 29.3 Sodium 138 Potassium 4.5 Chloride 100 Carbon Dioxide 28 Anion Gap 14 BUN 21 Creatinine 1.2 Est GFR ( Amer) > 60 Est GFR (Non-Af Amer) 59 Random Glucose 132 H Calcium 8.7 Magnesium 2.1 Total Bilirubin 1.3 AST 28 ALT 23 Alkaline Phosphatase 100 Lactate Dehydrogenase 469 Total Creatine Kinase 42 Troponin I < 0.01 NT-Pro-B Natriuret Pep 216 Total Protein 6.9 Albumin 4.0 Globulin 2.9 Albumin/Globulin Ratio 1.4 Urine Color Urine Appearance Urine pH Ur Specific [place] Urine Protein Urine Glucose (UA) Urine Ketones Urine Blood Urine Nitrate Urine Bilirubin Urine Urobilinogen Ur Leukocyte Esterase 06/18/17 12:50 WBC RBC Hgb Hct MCV MCH MCHC RDW Plt Count MPV Gran % Lymph % (Auto) [place]oca % (Auto) Eos % (Auto) Baso % (Auto) Gran # Lymph # (Auto) Moca # (Auto) Eos # (Auto) Baso # (Auto) PT INR APTT Sodium Potassium Chloride Carbon Dioxide Anion Gap BUN Creatinine Est GFR ( Amer) Est GFR (Non-Af Amer) Random Glucose Calcium Magnesium Total Bilirubin AST ALT Alkaline Phosphatase Lactate Dehydrogenase Total Creatine Kinase Troponin I NT-Pro-B Natriuret Pep Total Protein Albumin Globulin Albumin/Globulin Ratio Urine Color Yellow Urine Appearance Clear Urine pH 7.0 Ur Specific [place] 1.010 Urine Protein Negative Urine Glucose (UA) Negative Urine Ketones Negative Urine Blood Negative Urine Nitrate Negative Urine Bilirubin Negative Urine Urobilinogen 0.2 Ur Leukocyte Esterase Negative Assessment & Plan - Assessment and Plan (Free Text) Assessment: 77 yo male with PMH of stage IV mantle cell lymphoma, h/o lung ca s/p wedge resection, CAD with coronary stents, BPH, Hyperlipidemia, recurrent UTI presents to ED with shoulder and neck pain and lightheadedness. Plan: head ct showed no acute disease cxr was negative first set of troponins negative, will trend cardiology recommended orthostatic and echo last echo was june 2016 showed EF of 56 with mild to moderate aortic stenosis and tricuspid regurgitation carotid artery ultrasound pending cardiology consult neurology consult
[2017-06-18] MEDS ORDERED: Levalbuterol 0.63 MG/3 ML Inhal Soln UD IH SCH (18:00)
--- NOTE | 2017-06-18 19:35 | US ---
PROCEDURE: Bilateral carotid artery duplex ultrasound HISTORY: Carotid stenosis dizziness PHYSICIAN(S): Je Horne MD. TECHNIQUE: Duplex sonography and color-flow Doppler were used to evaluate the carotid bifurcations and limited segments of the vertebral arteries bilaterally. FINDINGS: There is mild smooth heterogeneous plaque noted at the carotid bifurcations bilaterally. The peak systolic velocity in the proximal right internal carotid artery is 75 cm/sec. This corresponds to a 20 to 39% proximal right ICA stenosis. Normal systolic velocities are noted in the proximal right external carotid artery. There is antegrade flow in the small right vertebral artery. The peak systolic velocity in the proximal left internal carotid artery is 82 cm/sec. This corresponds to a 20 to 39% proximal left ICA stenosis. Normal systolic velocities are noted in the proximal left external carotid artery. There is antegrade flow in the dominant left vertebral artery. IMPRESSION: 1. Bilateral 20-39% proximal ICA stenoses. 2. Antegrade flow in both vertebral arteries.
--- NOTE | 2017-06-18 20:26 | CARD ---
APPROVED REPORT EKG Measurement Heart [id number] <Conclusion> Poor data quality, interpretation may be adversely affected Sinus bradycardia Nonspecific T wave abnormality Abnormal ECG
[2017-06-18] MEDS: RANOLAZINE 500 MG PO SCH (21:15)
[2017-06-18] MEDS: SILODOSIN 8 MG PO SCH (21:17)
[2017-06-18] MEDS ORDERED: Pneumococcal 23-Valent Vaccine IM ONE (21:18)
[2017-06-18] MEDS: Magnesium Oxide 400 mg Tab UD PO SCH (21:26)
[2017-06-18] MEDS: Levalbuterol 1.25 MG/3 ML Inhal Soln UD IH SCH (21:51)
[2017-06-18] MEDS ORDERED: Non Formulary Medication (Magnesium Oxide [Magnesium] 400 MG) PO SCH (22:00)
[2017-06-19 06:26] LABS: BASO # 0.02 K/mm3 (0.0-2.0); BASO % 0.5 % (0.0-3.0); EOS # 0.2 (0.0-0.7); EOS % 5.2 % (1.5-5.0); GRAN # 2.57 (1.4-6.5); GRAN % 60.4 % (50.0-68.0); HEMOGLOBIN 11.2 g/dL (14.0-18.0); LYMPH # 1.1 (1.2-3.4); LYMPH % 25.9 % (22.0-35.0); MEAN CELL VOLUME 86.3 fl (80.0-105.0); MEAN CORPUSCULAR HEMOGLOBIN 28.5 pg (25.0-35.0); MEAN PLATELET VOLUME 10.2 fl (7.0-11.0); MONO # 0.3 (0.1-0.6); RBC 3.93 10^6/uL (3.5-6.1); RED CELL DISTRIBUTION WIDTH 13.9 % (11.5-14.5); WHITE BLOOD COUNT 4.3 10^3/ul (4.5-11.0)
[2017-06-19 06:54] LABS: ALB/GLOB RATIO 1.2 (1.1-1.8); ALBUMIN 3.5 g/dL (3.0-4.8); ALT/SGPT 28 U/L (7-56); AST/SGOT 20 U/L (17-59); BLOOD UREA NITROGEN 14 mg/dL (7-21); CALCIUM 8.3 mg/dL (8.4-10.5); GFR AFRICAN-AMERICAN > 60; GFR NON-AFRICAN AMERICAN > 60
[2017-06-19] MEDS: Levalbuterol 1.25 MG/3 ML Inhal Soln UD IH SCH ×5 (07:57→23:01)
[2017-06-19] MEDS ORDERED: VITAMIN D3 PO SCH (10:00)
[2017-06-19] MEDS ORDERED: CALCIUM CARBONATE PO SCH (10:00)
[2017-06-19] MEDS ORDERED: [UNRECOGNIZED DRUG - OTHER] PO SCH (10:00)
[2017-06-19] MEDS: RANOLAZINE 500 MG PO SCH ×2 (10:36→17:20)
[2017-06-19] MEDS: Pantoprazole 40 mg EC Tab PO SCH (10:37)
--- NOTE | 2017-06-19 10:44 | MRI ---
PROCEDURE: MRI of the brain dated 06/18/2017 HISTORY: Syncope COMPARISON: Noncontrast head CT from 06/18/2017. TECHNIQUE: Multiplanar, multisequence MR images of the brain were obtained without intravenous contrast enhancement. FINDINGS: HEMORRHAGE: None DWI: No evidence of an acute or early subacute infarction. BRAIN PARENCHYMA: There is large cystic encephalomalacia and gliosis in the left frontal lobe. There are severe chronic microangiopathic changes. There is no mass, mass effect or abnormal extra-axial fluid collection. The midline sagittal structures are normal. VENTRICLES: There is mild age-related global parenchymal volume loss and proportionate enlargement of the ventricles and cortical sulci. There is a eleanor cisterna magna. CRANIUM: There is normal bone marrow signal pattern. ORBITS: Grossly unremarkable. PARANASAL SINUSES/MASTOIDS: There is moderate polypoid mucosal thickening in the right maxillary sinus and mild mucosal thickening in the ethmoid air cells. The mastoid air cells are underdeveloped. VASCULAR SYSTEM: Skull base flow voids intact. OTHER FINDINGS: None. IMPRESSION: 1. No acute intracranial abnormality. 2. Large cystic encephalomalacia and gliosis in the left frontal lobe, sequela of remote insult. 3. Severe chronic microangiopathic changes and mild age-related global parenchymal volume loss.
--- NOTE | 2017-06-19 11:42 | CP.PCM.CON ---
<Greg Quesada - Last Filed: 06/19/17 11:43> History of Present Illness - History of Present Illness History of Present Illness: 77 yo male with PMH of stage IV mantle cell lymphoma, h/o lung ca s/p wedge resection, CAD with coronary stents, BPH, Hyperlipidemia, recurrent UTI presented to ED with shoulder and neck pain. Patient stated that yesterday morning while making breakfast he began to feel unsteady with a darkness and shoulder pain. He felt as if he was going to pass out. He denies dizziness or loss of consciousness. He states the unsteady feeling lasted about 15 minutes and passed. His was there. He reports previous episodes when he would stand suddenly however this was while standing making breakfast. He report persistent bilateral shoulder pain. He states that his massaged his shoulders an the pain improved, however it returned and she brought him in to the hopsital. He currently denies chest pain, palpitations, fevers, chill abd pain, dizziness, sob, n/v, diarrhea, constipation. He states his pain is more on his right shoulder currently PMH: stage IV mantle cell lymphoma, h/o lung ca s/p wedge resection, CAD with coronary stents, BPH, Hyperlipidemia, recurrent UTI PSH: angioplasty 4 stents, wedge resection social history: denies smoking, alcohol use, denies illicit drug use family history: heart disease allergy: azithromycin, erythromycin, penicillins, cephalexin, gabapentin, sulfa , nitro paste, imbrovica Meds: As per MAR Review of Systems - Constitutional Constitutional: Chills - EENT Eyes: absent: Change in Vision - Cardiovascular Cardiovascular: absent: Chest Pain, Chest Pain with Activity, Diaphoresis, Dyspnea, Lightheadedness, Rapid Heart Rate, Syncope - Respiratory Respiratory: absent: Cough, Dyspnea, Wheezing - Gastrointestinal Gastrointestinal: absent: Abdominal Pain, Nausea, Vomiting - Musculoskeletal Musculoskeletal: Arthralgias, Neck Pain, Stiffness. absent: Radiating Pain into Limb - Neurological Neurological: Other. absent: Dizziness, Numbness, Headaches, Tingling Additional comments: lightheadedness Past Patient History - Infectious Disease Hx of Infectious Diseases: None - Tetanus Immunizations Tetanus Immunization: Unknown - Past Medical History & Family History Past Medical History?: Yes - Past Social History Smoking Status: Never Smoked - CARDIAC Hx Cardiac Disorders: Yes (CAD, stents) - PULMONARY Hx Respiratory Disorders: Yes Hx Asthma: Yes Hx Bronchitis: Yes Hx Pneumonia: Yes - NEUROLOGICAL Hx Neurological Disorder: Yes - HEENT Hx HEENT Problems: Yes (wears glasses) Hx Deafness: Yes ([place], b/l hearing aids) - RENAL Hx Chronic Kidney Disease: No - ENDOCRINE/METABOLIC Hx Endocrine Disorders: Yes Hx Diabetes Mellitus Type 2: Yes - HEMATOLOGICAL/ONCOLOGICAL Hx Blood Disorders: Yes Hx Anemia: Yes Hx Cancer: Yes (mantle cell lymphoma "active") - INTEGUMENTARY Hx Dermatological Problems: No - MUSCULOSKELETAL/RHEUMATOLOGICAL Hx Falls: Yes - GASTROINTESTINAL Hx Gastrointestinal Disorders: No - GENITOURINARY/GYNECOLOGICAL Hx Genitourinary Disorders: Yes Hx Prostate Problems: Yes (bph, prostectomy) Hx Urinary Tract Infection: Yes - PSYCHIATRIC Hx Psychophysiologic Disorder: No Hx Substance Use: No - SURGICAL HISTORY Hx Cardiac Catheterization: Yes (angioplasty 4 stents) Hx Coronary Stent: Yes Hx Orthopedic Surgery: Yes (right thumb) - ANESTHESIA Hx Anesthesia: Yes Hx Anesthesia Reactions: No Hx Malignant Hyperthermia: No Meds Allergies/Adverse Reactions: Allergies Allergy/AdvReac Type Severity Reaction Status Date / Time azithromycin Allergy Severe ANGIOEDEMA Verified 06/18/17 19:13 erythromycin base Allergy Severe ANGIOEDEMA Verified 06/18/17 19:13 Penicillins Allergy Severe ANAPHYLAXIS Verified 06/18/17 19:13 cephalexin monohydrate Allergy Intermediate RASH Verified 06/18/17 19:13 [From Keflex] gabapentin Allergy Intermediate RASH Verified 06/18/17 19:13 pregabalin Allergy Intermediate RASH Verified 06/18/17 19:13 Sulfa (Sulfonamide Allergy Intermediate RASH Verified 06/18/17 19:13 Antibiotics) nitro paste Allergy Intermediate DIZZINESS/H Uncoded 06/18/17 19:13 YPOTENSION Imbrovica Allergy FEVER Uncoded 06/18/17 19:13 - Medications Medications: Current Medications Aspirin (Ecotrin) 81 mg PO DAILY [facility] Last Admin: 06/19/17 10:36 Dose: 81 mg Atorvastatin Calcium (Lipitor) 20 mg PO [facility] Last Admin: 06/18/17 21:26 Dose: 20 mg Clopidogrel Bisulfate (Plavix) 75 mg PO DAILY [facility] Last Admin: 06/19/17 10:37 Dose: 75 mg Ezetimibe (Zetia) 10 mg PO [facility] Last Admin: 06/18/17 21:26 Dose: 10 mg Hydroxyzine HCl (Atarax) 10 mg PO [facility] Last Admin: 06/18/17 21:27 Dose: 10 mg Levalbuterol HCl (Xopenex) 1.25 mg IH TID [facility] Last Admin: 06/19/17 07:57 Dose: 1.25 mg Magnesium Oxide (Mag-Ox) 400 mg PO [facility] Last Admin: 06/18/17 21:26 Dose: 400 mg Metoprolol Tartrate (Lopressor) 25 mg PO [facility] Last Admin: 06/18/17 21:23 Dose: Not Given Montelukast Sodium (Singulair) 10 mg PO [facility] Last Admin: 06/18/17 21:27 Dose: 10 mg Non-Formulary Medication (Calcium Carbonate/Vitamin D3 [Caltrate 600 + D Soft Chew Tab]) 600 mg PO DAILY [facility] Ranolazine [Ranexa (Er] 500 Mg)) 500 mg PO BID [facility] Last Admin: 06/19/17 10:36 Dose: 500 mg Non-Formulary Medication (Silodosin [Rapaflo]) 8 mg PO [facility] Last Admin: 06/18/17 21:17 Dose: 8 mg Nortriptyline HCl (Pamelor) 10 mg PO DAILY [facility] Last Admin: 06/19/17 10:36 Dose: 10 mg Ondansetron HCl (Zofran Tab) 4 mg PO Q6H PRN PRN Reason: Nausea/Vomiting Oxybutynin Chloride (Ditropan Tab) 5 mg PO [facility] Last Admin: 06/18/17 21:26 Dose: 5 mg Pantoprazole Sodium (Protonix Ec Tab) 40 mg PO DAILY [facility] Last Admin: 06/19/17 10:37 Dose: 40 mg Physical Exam - Constitutional Appears: Non-toxic, No Acute Distress - Head Exam Head Exam: ATRAUMATIC, NORMAL INSPECTION, NORMOCEPHALIC - Eye Exam Eye Exam: Normal appearance, PERRL - ENT Exam ENT Exam: Mucous Membranes Moist - Neck Exam Neck exam: Positive for: Tenderness - Respiratory Exam Respiratory Exam: Clear to Auscultation Bilateral, NORMAL BREATHING PATTERN - Cardiovascular Exam Cardiovascular Exam: +S1, +S2 - GI/Abdominal Exam GI & Abdominal Exam: absent: Distended, Tenderness - Extremities Exam Extremities exam: Positive for: pedal pulses present - Neurological Exam Neurological exam: Alert, Oriented x3 - Skin Skin Exam: Intact, Warm Results - Vital Signs Recent Vital Signs: Last Vital Signs Temp 98.3 F 06/19/17 05:59 Pulse 64 06/19/17 05:59 Resp 20 06/19/17 05:59 BP 103/57 L 06/19/17 05:59 Pulse Ox 96 06/19/17 05:59 - Labs Result Diagrams: 06/19/17 05:30 06/19/17 05:30 Labs: Laboratory Results - last 24 hr 06/18/17 06/18/17 06/18/17 16:38 18:07 22:11 WBC RBC Hgb Hct MCV MCH MCHC RDW Plt Count MPV Gran % Lymph % (Auto) [place] % (Auto) Eos % (Auto) Baso % (Auto) Gran # Lymph # (Auto) [place] # (Auto) Eos # (Auto) Baso # (Auto) Sodium Potassium Chloride Carbon Dioxide Anion Gap BUN Creatinine Est GFR ( Amer) Est GFR (Non-Af Amer) POC Glucose (mg/dL) 229 H 113 H Random Glucose Calcium Total Bilirubin AST ALT Alkaline Phosphatase Troponin I < 0.01 Total Protein Albumin Globulin Albumin/Globulin Ratio 06/19/17 06/19/17 06/19/17 00:05 05:30 05:30 WBC 4.3 L D RBC 3.93 Hgb 11.2 L Hct 33.9 L MCV 86.3 MCH 28.5 MCHC 33.0 RDW 13.9 Plt Count 142 MPV 10.2 Gran % 60.4 Lymph % (Auto) 25.9 [place] % (Auto) 8.0 H Eos % (Auto) 5.2 H Baso % (Auto) 0.5 Gran # 2.57 Lymph # (Auto) 1.1 L [place] # (Auto) 0.3 Eos # (Auto) 0.2 Baso # (Auto) 0.02 Sodium 139 Potassium 3.8 Chloride 104 Carbon Dioxide 27 Anion Gap 11 BUN 14 Creatinine 0.9 Est GFR ( Amer) > 60 Est GFR (Non-Af Amer) > 60 POC Glucose (mg/dL) Random Glucose 136 H Calcium 8.3 L Total Bilirubin 1.0 AST 20 ALT 28 Alkaline Phosphatase 91 Troponin I < 0.01 Total Protein 6.2 Albumin 3.5 Globulin 2.8 Albumin/Globulin Ratio 1.2 Assessment & Plan - Assessment and Plan (Free Text) Assessment: 77 yo male with PMH of stage IV mantle cell lymphoma, h/o lung ca s/p wedge resection, CAD with coronary stents, BPH, Hyperlipidemia, recurrent UTI presents lightheadedness along with shoulder and neck pain. Plan: Plan: head ct showed no acute disease cxr was negative trop negative x 3 orthostatic and echo last echo was june 2016 showed EF of 56 with mild to moderate aortic stenosis and tricuspid regurgitation carotid artery ultrasound pending neurology consult as per primary team <Yaniv Perez - Last Filed: 06/19/17 17:12> Meds - Medications Medications: Current Medications Aspirin (Ecotrin) 81 mg PO DAILY [facility] Last Admin: 06/19/17 10:36 Dose: 81 mg Atorvastatin Calcium (Lipitor) 20 mg PO [facility] Last Admin: 06/18/17 21:26 Dose: 20 mg Clopidogrel Bisulfate (Plavix) 75 mg PO DAILY [facility] Last Admin: 06/19/17 10:37 Dose: 75 mg Ezetimibe (Zetia) 10 mg PO [facility] Last Admin: 06/18/17 21:26 Dose: 10 mg Hydroxyzine HCl (Atarax) 10 mg PO [facility] Last Admin: 06/18/17 21:27 Dose: 10 mg Levalbuterol HCl (Xopenex) 1.25 mg IH TID [facility] Last Admin: 06/19/17 13:25 Dose: 1.25 mg Magnesium Oxide (Mag-Ox) 400 mg PO [facility] Last Admin: 06/18/17 21:26 Dose: 400 mg Metoprolol Tartrate (Lopressor) 25 mg PO [facility] Last Admin: 06/18/17 21:23 Dose: Not Given Montelukast Sodium (Singulair) 10 mg PO [facility] Last Admin: 06/18/17 21:27 Dose: 10 mg Non-Formulary Medication (Calcium Carbonate/Vitamin D3 [Caltrate 600 + D Soft Chew Tab]) 600 mg PO DAILY [facility] Ranolazine [Ranexa (Er] 500 Mg)) 500 mg PO BID [facility] Last Admin: 06/19/17 10:36 Dose: 500 mg Non-Formulary Medication (Silodosin [Rapaflo]) 8 mg PO [facility] Last Admin: 06/18/17 21:17 Dose: 8 mg Nortriptyline HCl (Pamelor) 10 mg PO DAILY [facility] Last Admin: 06/19/17 10:36 Dose: 10 mg Ondansetron HCl (Zofran Tab) 4 mg PO Q6H PRN PRN Reason: Nausea/Vomiting Oxybutynin Chloride (Ditropan Tab) 5 mg PO HS [facility] Last Admin: 06/18/17 21:26 Dose: 5 mg Pantoprazole Sodium (Protonix Ec Tab) 40 mg PO DAILY [facility] Last Admin: 06/19/17 10:37 Dose: 40 mg Results - Vital Signs Recent Vital Signs: Last Vital Signs Temp 98.3 F 06/19/17 05:59 Pulse 64 06/19/17 05:59 Resp 20 06/19/17 05:59 BP 103/57 L 06/19/17 05:59 Pulse Ox 96 06/19/17 05:59 - Labs Result Diagrams: 06/19/17 05:30 06/19/17 05:30 Attending/Attestation - Attestation I have personally seen and examined this patient.: Yes I have fully participated in the care of the patient.: Yes I have reviewed all pertinent clinical information: Yes Notes (Text): 06/19/17 17:11 pt seen and evaluated sx unlikely cardiac in nature hx suggestive of preload depedency would w/u PE
--- NOTE | 2017-06-19 12:33 | CON ---
DATE: 06/19/2017 CHIEF COMPLAINT: Near syncope. HISTORY OF PRESENT ILLNESS: This is a 77-year-old male with past medical history of stage IV mantle cell lymphoma; history of lung cancer, status post wedge resection; coronary artery disease, status post stents; BPH; hyperlipidemia, recurrent UTI who presented to the ER with shoulder and cervical neck pain. Patient stated that in the morning while making breakfast, again felt unsteady and felt blurry vision in both eyes with total darkness over his eyes, but denies any loss of consciousness, which lasted about 15 minutes and passed. History still consists of bilateral shoulder pain and mild cervical neck tightness. No focal weakness of the extremities. MRI of the brain showed no acute intracranial abnormalities. Carotid Doppler showed 20 to 39% possible ICA stenosis with antegrade flow in vertebral arteries. He is currently undergoing an echocardiogram. No acute events overnight. PAST MEDICAL HISTORY: History of stage IV mantle cell lymphoma; history of lung cancer, status post wedge resection; coronary artery disease with coronary artery stents; BPH; hyperlipidemia; recurrent UTI. REVIEW OF SYSTEMS: Fourteen-point review of systems is negative except for the HPI. ALLERGIES: NOTED TO AZITHROMYCIN, ERYTHROMYCIN BASE, PENICILLINS. MEDICATIONS: Reviewed by nurse's reconciliation sheet. SOCIAL HISTORY: No illicit drug use, smoking or EtOH abuse. FAMILY HISTORY: Noncontributory. PHYSICAL EXAMINATION GENERAL: The patient is sitting up in bed, in no acute distress.. VITAL SIGNS: Temperature 98.3, pulse rate is 62, blood pressure 103/____, respiratory rate 20, oxygen saturation 96% by room air. HEENT: Head is atraumatic and normocephalic. PERRLA. Extraocular muscles are intact. NECK: Supple. No JVD. No adenopathy noted. LUNGS: Clear to auscultation. No adventitious sounds. HEART: S1 and S2, normal rate and rhythm. No murmurs, rubs or gallops. ABDOMEN: Soft, nontender, and nondistended. Bowel sounds are present. EXTREMITIES: No clubbing. No cyanosis. Peripheral pulses 2+ bilaterally. NEUROLOGIC: Patient is alert, oriented to person, but not place, month and year. Speech is fluent without any errors. Cranial nerves II through XII intact. Motor exam: Moves all extremities equally. No pronator drift seen. Normal tone. Sensory exam: Light touch, pinprick, proprioception, vibration intact.. DTRs 2+ throughout, 1 at both knees and absent at the ankles. Coordination: [id number] intact. No dysmetria noted. Gait is deferred for now. MUSCULOSKELETAL: He has cervical muscle tightness. LABORATORY DATA: Sodium 139, potassium 3.8, chloride 104, carbon dioxide 27, BUN of 14, creatinine 0.9, random glucose of 136, calcium 8.3. ASSESSMENT AND PLAN: This is a 77-year-old man with past medical history of stage IV mantle cell lymphoma; history of lung cancer, status post wedge resection, coronary artery disease with coronary artery stents, benign prostatic hypertrophy, hyperlipidemia, recurrent urinary tract infections with cervical neck tightness and bilateral shoulder pain, presented with lightheadedness as well. His lightheadedness is most likely a vasovagal component superimposed on cervical on a musculoskeletal tightness. MRI of the brain showed no acute intracranial abnormality, just chronic ischemic changes. A carotid Doppler showed 20 to 39% proximal internal carotid artery stenosis with antegrade flow of vertebral arteries. Today, his systolic blood pressure is slightly on the lower side, but otherwise no focal weakness. At this time, there is transient near syncope in terms of blurry vision, could be secondary to a vasovagal component, possible transient drop in cerebral blood pressure. Orthostats are not really significant. At this time, recommend: 1. PT/OT for cervical neck tightness and bilateral shoulder pain as an outpatient. 2. Continue with aspirin 81, Lipitor 20 mg and Plavix 75 mg for stroke prevention. 3. Continue current present medical management. 4. Follow up as an outpatient. Thank you for this consult. Leighton Davies MD
[2017-06-19] MEDS ORDERED: Iohexol 350 MG/100 ML VIAL ONE (17:20)
--- NOTE | 2017-06-19 21:10 | CARD ---
APPROVED REPORT EXAM: Two-dimensional and M-mode echocardiogram with Doppler and color Doppler. INDICATION NEAR SYNCOPE, LIGHTHEADED 2D DIMENSIONS Left Atrium (2D)3.2 (1.6-4.0cm)IVSd1.0 (0.7-1.1cm) LVDd4.1 (3.9-5.9cm)LVOT Diameter2.0 (1.8-2.4cm) PWd0.8 (0.7-1.1cm)LVDs2.7 (2.5-4.0cm) FS (%) 33.8 %LVEF (%)63.2 (>50%) M-Mode DIMENSIONS Aortic Root3.10 (2.2-3.7cm)Aortic Cusp Exc.0.90 (1.5-2.0cm) Aortic Valve AoV Peak Epqxabrl319.0cm/sAoV VTI62.3cmAO Peak GR.26mmHg LVOT Peak Ivnphrff04.5cm/sLVOT VTI21.20cmAO Mean GR.14mmHg NIDIA (VMAX)1.04oj7EOZ (VTI)1.94lt6SN P 1/2 Jrcg758cg Mitral Valve MV E Zmhdngrm70.0cm/sMV A Cmwqeaah86.4cm/sE/A ratio0.9 TDI Lateral E' Peak V8.48cm/sMedial E' Peak V8.87cm/sE/Lateral E'9.4 E/Medial E'9.0 Pulmonary Valve PV Peak Hegobpcy18.3cm/sPV Peak Grad.1mmHg Tricuspid Valve TR Peak Sfgkpdhq892ub/sRAP OBHYSPAI08diTxPE Peak Gr.27mmHg [id number] LEFT VENTRICLE The left ventricle is normal size. There is normal left ventricular wall thickness. The left ventricular function is normal. The left ventricular ejection fraction is within the normal range. There is normal LV segmental wall motion. Transmitral Doppler flow pattern is Grade I-abnormal relaxation pattern. RIGHT VENTRICLE The right ventricle is normal size. There is normal right ventricular wall thickness. The right ventricular systolic function is normal. ATRIA The left atrium size is normal. The right atrium size is normal. AORTIC VALVE The aortic valve is severely sclerotic. There is moderate aortic regurgitation. There is mild valvular aortic stenosis. MITRAL VALVE The mitral valve is moderately thickened. Mitral regurgitation is trace to mild. TRICUSPID VALVE There is mild pulmonary hypertension. GREAT VESSELS The aortic root is normal in size. PERICARDIAL EFFUSION There is no pericardial effusion. <Conclusion> The left ventricle is normal size. There is normal left ventricular wall thickness. The left ventricular function is normal. The left ventricular ejection fraction is within the normal range. There is normal LV segmental wall motion. Transmitral Doppler flow pattern is Grade I-abnormal relaxation pattern. There is mild valvular aortic stenosis. There is moderate aortic regurgitation. Mitral regurgitation is trace to mild. There is mild pulmonary hypertension.
--- NOTE | 2017-06-19 21:55 | CT ---
EXAM: CT Angiography Chest With Intravenous Contrast EXAM DATE/TIME: 06/19/2017 5:13 PM CLINICAL HISTORY: The patient age is 77 years old and is male; Pain; Chest pain; Type not specified; Additional info: Sob/chest pain Facility exam id and description: Ct [facility] angio chest pe protocol TECHNIQUE: Axial computed tomographic angiography images of the chest with intravenous contrast using pulmonary embolism protocol. All CT scans at this facility use one or more dose reduction techniques, viz.: automated exposure control; ma/kV adjustment per patient size (including targeted exams where dose is matched to indication; i.e. head); or iterative reconstruction technique. MIP reconstructed images were created and reviewed. Coronal and sagittal reformatted images were created and reviewed. CONTRAST: 100 mL of OMNI 350 administered intravenously. COMPARISON: CT - ANGIO CHEST PE PROTOCOL 2016-11-20 19:56 FINDINGS: Pulmonary arteries: The main pulmonary trunk, right/left main pulmonary arteries, and the proximal lobar branches demonstrate no definite intraluminal filling defect to suggest pulmonary embolism. Aorta: There is atherosclerotic calcification of the aorta. There is no aneurysm or dissection of the aorta. Lungs: There is a stable 4 mm subpleural nodule within the right pulmonary apex on series to image 18. On series 3 image 33 within the right upper lobe, there is a 4 mm stable nodule. An additional 3 mm nodules identified in the right upper lobe on series 3 image 39. These nodules are stable in size. Patchy areas of groundglass density are visualized within the lungs bilaterally. Atelectatic changes are identified at the right lung base. There is a hyperdense band of postoperative change or cortical scarring within the lateral left lung base. Pleural space: There is mild right pleural thickening. No pneumothorax. Heart: There is cardiomegaly. Bones/joints: There is increased kyphosis of the thoracic spine. Lymph nodes: A few mildly enlarged mediastinal lymph nodes are visualized. Within the AP window, there is a 1.4 x 1.0 cm lymph node. There is no significant progression of the lymph nodes compared to the prior study. No significant hilar lymphadenopathy. Pancreas: There is atrophy of the pancreas. Tubes, lines and devices: Hypertrophic degenerative changes are noted within the spine. A right-sided Port-A-Cath is visualized. IMPRESSION: 1. No acute pulmonary embolism. 2. Several small lung nodules are visualized. These nodules are stable in size. 3. Patchy areas of groundglass density are visualized within the lungs bilaterally. Atelectatic changes are identified at the right lung base. There is a hyperdense band of postoperative change or cortical scarring within the lateral left lung base. 4. There is mild right pleural thickening. 5. There is cardiomegaly. 6. A few mildly enlarged mediastinal lymph nodes are visualized. There is no significant progression of the lymph nodes compared to the prior study. 7. Incidental/non-acute findings are described above. FLEISCHNER SOLID LESS THAN 6mm MULTIPLE As per Fleischner Society 2017 guidelines for follow-up and management of pulmonary nodules: For patients at low risk (minimal or absent history of smoking and of other known risk factors), no routine follow-up. For patient at high risk (history of smoking or of other known risk factors), recommend optional CT at 12 months.
[2017-06-19] MEDS: Magnesium Oxide 400 mg Tab UD PO SCH (22:03)
[2017-06-19] MEDS: SILODOSIN 8 MG PO SCH (22:06)
[2017-06-20 06:51] LABS: BASO # 0.04 K/mm3 (0.0-2.0); BASO % 0.9 % (0.0-3.0); EOS # 0.3 (0.0-0.7); EOS % 6.2 % (1.5-5.0); GRAN # 2.48 (1.4-6.5); GRAN % 58.8 % (50.0-68.0); HEMOGLOBIN 11.4 g/dL (14.0-18.0); LYMPH # 1.1 (1.2-3.4); LYMPH % 26.8 % (22.0-35.0); MEAN CELL VOLUME 86.3 fl (80.0-105.0); MEAN CORPUSCULAR HEMOGLOBIN 28.4 pg (25.0-35.0); MEAN CORPUSCULAR HGB CONC 32.9 g/dl (31.0-37.0); MEAN PLATELET VOLUME 9.7 fl (7.0-11.0); MONO # 0.3 (0.1-0.6); MONO % 7.3 % (1.0-6.0); RBC 4.01 10^6/uL (3.5-6.1); RED CELL DISTRIBUTION WIDTH 14.2 % (11.5-14.5); WHITE BLOOD COUNT 4.2 10^3/ul (4.5-11.0)
[2017-06-20 07:07] LABS: ALB/GLOB RATIO 1.2 (1.1-1.8); ALBUMIN 3.4 g/dL (3.0-4.8); ALT/SGPT 28 U/L (7-56); AST/SGOT 21 U/L (17-59); BLOOD UREA NITROGEN 12 mg/dL (7-21); CALCIUM 8.6 mg/dL (8.4-10.5); GFR AFRICAN-AMERICAN > 60; GFR NON-AFRICAN AMERICAN > 60
[2017-06-20] MEDS: Levalbuterol 1.25 MG/3 ML Inhal Soln UD IH SCH ×3 (07:40→20:26)
--- NOTE | 2017-06-20 08:53 | PN ---
DATE: 06/19/2017 ONCOLOGY PROGRESS NOTE LOCATION: The patient is in 269, bed 2. 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 Patient requested his to massage his neck, felt a little bit better, but did not completely go away. Patient denies any focal weakness of the any extremities. Based on these findings, patient was admitted for further observation to rule out atypical symptoms related to evolving angina from his underlying known cardiac disease or neurologic event. Patient was seen by Neurology and MRI of the brain done last night, which was negative. Patient was seen by Dr. Perez earlier today. Patient had an echocardiogram to make sure there was nothing abnormal on the echocardiogram in view of a significant cardiac disease and history of multiple stents. Echo did not reveal any major cardiac findings and the ejection fractions were within reasonable limits compared to the prior echo done about a year and a half ago and patient was advised to get a CAT scan, which is going to be getting to rule out atypical other causes including possible PE. Carotid Doppler showed 20% to 39% proximal ICA stenosis with antegrade flow in the vertebral artery. PAST MEDICAL HISTORY: Significant for stage IV mantle cell lymphoma status post various treatments; last treatment being treated with a drug called ibrutinib, had reactions related to it, it was stopped and had been maintained just on Rituxan and then eventually has now currently been followed without any therapy with stabilization on the PET CT scan since the pre-PET CT scan, which had not shown any progression of disease. REVIEW OF SYSTEMS: A 14 point review of systems is negative except for what is mentioned in the HPI. ALLERGIES: PATIENT IS ALLERGIC TO AZITHROMYCIN, ERYTHROMYCIN BASED PENICILLINS. SOCIAL HISTORY: No history of drug abuse, smoking, or EtOH abuse. FAMILY HISTORY: Noncontributory. PHYSICAL EXAMINATION: GENERAL: Patient is awake, alert, and oriented. Sitting in bed. In no acute distress. VITAL SIGNS: Stable. T max is 98.3, pulse is 62, blood pressure is 103/70, respirations 20, O2 sat is 96% on room air. HEENT: Head is normocephalic, atraumatic. Conjunctivae are pale. Sclerae are anicteric. Pupils are equally reactive to light and accommodation. Examination of the oropharynx reveals no oropharyngeal lesions. NECK: Supple. There is no adenopathy. No jugular venous distention is noted. LUNGS: Clear to percussion and auscultation. HEART: Reveals PMI within the fifth intercostal space inside the midclavicular line. S1 and S2 are normal. No gallop or murmur is heard. ABDOMEN: Soft, nontender. Bowel sounds are present. No rebound, rigidity or guarding is noted. EXTREMITIES: Reveal no cyanosis, clubbing or edema. NEUROLOGIC: The patient is awake, alert and oriented. No acute distress. No focalizing findings are noted. GENITOURINARY AND RECTAL: Deferred. SKIN: Skin turgor is normal. No skin lesions are noted. LABORATORY DATA: Reveals a sodium of 139, K is 3.8, chloride 104, CO2 is 27. BUN of 14, creatinine 0.9, glucose of 136. Calcium is 8.3. CBC is unremarkable. ASSESSMENT NOTES AND PLAN: A 77 year old male with a past medical history of stage IV mantle cell lymphoma, currently quiescent, is admitted with atypical pain related to the neck and to the shoulder associated with blurring of vision, suggestive either neurological or cardiac events and hence MRI was done, echocardiogram was done and now is going for a CT angio. Plan, we will discuss with Cardiology and Neurology before making plans for possible discharge if nothing significant is found on the CAT scan later on tonight. We will discuss my findings with the patient's , who is a physician as well. We will continue current management. Continue the current medications for now. Routine post exam instructions have been given to the patient. Patient will continue his aspirin, Lipitor and Plavix for stroke prevention. We will check with Dr. Perez if there is any other plans regarding his cardiac evaluation. Time spent with the patient more than 45 minutes. Alie Myers MD [facility] # [id number]
[2017-06-20] MEDS: Pantoprazole 40 mg EC Tab PO SCH (09:51)
[2017-06-20] MEDS: RANOLAZINE 500 MG PO SCH ×2 (09:52→17:40)
--- NOTE | 2017-06-20 12:18 | CP.PCM.PN ---
Subjective - Date & Time of Evaluation Date of Evaluation: 06/20/17 Time of Evaluation: 09:00 - Subjective Subjective: PGY-2 Progress note Patient seen and examined at bedside. No acute distress. Nurse reports no events over night. Patient NPO for stress test today. He is tolerating diet. Denies chest pain, lightheadedness, sob, headache, fever, chills. Objective - Vital Signs/Intake and Output Vital Signs (last 24 hours): Temp Pulse Resp BP Pulse Ox 97.9 F 68 20 114/66 95 06/20/17 06:00 06/20/17 06:00 06/20/17 06:00 06/20/17 06:00 06/20/17 06:00 Intake and Output: 06/20/17 06/20/17 06:59 18:59 Intake Total 920 Balance 920 - Medications Medications: Current Medications Aspirin (Ecotrin) 81 mg PO DAILY [facility] Last Admin: 06/20/17 09:51 Dose: 81 mg Atorvastatin Calcium (Lipitor) 20 mg PO [facility] Last Admin: 06/19/17 22:03 Dose: 20 mg Clopidogrel Bisulfate (Plavix) 75 mg PO DAILY [facility] Last Admin: 06/20/17 09:51 Dose: 75 mg Ezetimibe (Zetia) 10 mg PO [facility] Last Admin: 06/19/17 22:03 Dose: 10 mg Hydroxyzine HCl (Atarax) 10 mg PO [facility] Last Admin: 06/19/17 22:03 Dose: 10 mg Levalbuterol HCl (Xopenex) 1.25 mg IH TID [facility] Last Admin: 06/19/17 23:01 Dose: Not Given Magnesium Oxide (Mag-Ox) 400 mg PO [facility] Last Admin: 06/19/17 22:03 Dose: 400 mg Metoprolol Tartrate (Lopressor) 25 mg PO [facility] Last Admin: 06/19/17 22:03 Dose: 25 mg Montelukast Sodium (Singulair) 10 mg PO [facility] Last Admin: 06/19/17 22:03 Dose: 10 mg Non-Formulary Medication (Calcium Carbonate/Vitamin D3 [Caltrate 600 + D Soft Chew Tab]) 600 mg PO DAILY [facility] Ranolazine [Ranexa (Er] 500 Mg)) 500 mg PO BID [facility] Last Admin: 04/18/18 09:52 Dose: 500 mg Non-Formulary Medication (Silodosin [Rapaflo]) 8 mg PO HS [facility] Last Admin: 06/19/17 22:06 Dose: 8 mg Nortriptyline HCl (Pamelor) 10 mg PO DAILY [facility] Last Admin: 06/20/17 09:51 Dose: 10 mg Ondansetron HCl (Zofran Tab) 4 mg PO Q6H PRN PRN Reason: Nausea/Vomiting Oxybutynin Chloride (Ditropan Tab) 5 mg PO HS [facility] Last Admin: 06/19/17 22:03 Dose: 5 mg Pantoprazole Sodium (Protonix Ec Tab) 40 mg PO DAILY [facility] Last Admin: 06/20/17 09:51 Dose: 40 mg - Labs Labs: 06/20/17 06:30 06/20/17 06:30 PT 13.0 SECONDS (9.4-12.5) H 06/18/17 11:20 INR 1.13 (0.93-1.08) H 06/18/17 11:20 APTT 29.3 Seconds (25.1-36.5) 06/18/17 11:20 - Constitutional Appears: Well, No Acute Distress - Head Exam Head Exam: ATRAUMATIC, NORMAL INSPECTION, NORMOCEPHALIC - Eye Exam Eye Exam: Normal appearance - ENT Exam ENT Exam: Mucous Membranes Moist - Respiratory Exam Respiratory Exam: Clear to Ausculation Bilateral, NORMAL BREATHING PATTERN. absent: Rhonchi, Wheezes, Respiratory Distress - Cardiovascular Exam Cardiovascular Exam: REGULAR RHYTHM, +S1. absent: Bradycardia, Tachycardia, Murmur - GI/Abdominal Exam GI & Abdominal Exam: Soft, Normal Bowel Sounds. absent: Distended, Firm, Tenderness - Extremities Exam Extremities Exam: Normal Inspection. absent: Pedal Edema, Tenderness - Neurological Exam Neurological Exam: Alert, Awake, Oriented x3 - Psychiatric Exam Psychiatric exam: Normal Affect, Normal Mood - Skin Skin Exam: Dry, Intact, Normal Color, Warm Assessment and Plan - Assessment and Plan (Free Text) Assessment: 77 yo male with PMH of stage IV mantle cell lymphoma, currently quiescent, h/o lung ca s/p wedge resection, CAD with coronary stents, BPH, Hyperlipidemia, recurrent UTI presents to ED with shoulder and neck pain and lightheadedness. Plan: head ct showed no acute disease MRI showed no acute abnormailty, large cystic encephalomalacia and chronic mirocangiopathuc changes cxr was negative troponins negative x 3 cardiology recommended orthostatic and echo echo showed normal EF, grade 1 abnormal relaxation pattern, mild aortic stenosis , moderate aortic regurgitation, mild pulmonary htn carotid artery ultrasound showed bilateral 20-13% stenosis cardiology consult recommended stress test and myocardium perfusion study neurology consult, recommends PT/OT, continue stroke prevention and out patient follow up
[2017-06-20] MEDS: Magnesium Oxide 400 mg Tab UD PO SCH (21:47)
[2017-06-20] MEDS: SILODOSIN 8 MG PO SCH (21:48)
[2017-06-21 07:02] VITALS: O2SAT 96
[2017-06-21 07:15] LABS: BASO # 0.03 K/mm3 (0.0-2.0); BASO % 0.7 % (0.0-3.0); EOS # 0.3 (0.0-0.7); EOS % 7.2 % (1.5-5.0); GRAN # 2.46 (1.4-6.5); GRAN % 57.1 % (50.0-68.0); HEMOGLOBIN 11.4 g/dL (14.0-18.0); LYMPH # 1.3 (1.2-3.4); MEAN CELL VOLUME 86.1 fl (80.0-105.0); MEAN CORPUSCULAR HEMOGLOBIN 28.3 pg (25.0-35.0); MEAN CORPUSCULAR HGB CONC 32.9 g/dl (31.0-37.0); MEAN PLATELET VOLUME 9.8 fl (7.0-11.0); MONO # 0.3 (0.1-0.6); RBC 4.03 10^6/uL (3.5-6.1); RED CELL DISTRIBUTION WIDTH 14.1 % (11.5-14.5); WHITE BLOOD COUNT 4.3 10^3/ul (4.5-11.0)
[2017-06-21 07:30] LABS: ALB/GLOB RATIO 1.3 (1.1-1.8); ALBUMIN 3.5 g/dL (3.0-4.8); ALT/SGPT 25 U/L (7-56); AST/SGOT 18 U/L (17-59); BLOOD UREA NITROGEN 12 mg/dL (7-21); CALCIUM 8.7 mg/dL (8.4-10.5); GFR AFRICAN-AMERICAN > 60; GFR NON-AFRICAN AMERICAN > 60
[2017-06-21] MEDS ORDERED: Aminophylline 25 mg/ml Inj ONE (08:17)
--- NOTE | 2017-06-21 12:24 | CP.PCM.PN ---
Subjective - Date & Time of Evaluation Date of Evaluation: 06/21/17 Time of Evaluation: 12:23 - Subjective Subjective: s/p stress test today no evidence of ischemia Objective - Vital Signs/Intake and Output Vital Signs (last 24 hours): Temp Pulse Resp BP Pulse Ox 97.8 F 57 L 20 147/82 96 06/21/17 06:00 06/21/17 06:00 06/21/17 06:00 06/21/17 06:00 06/21/17 06:00 Intake and Output: 06/21/17 06/21/17 06:59 18:59 Intake Total 120 Balance 120 - Medications Medications: Current Medications Aspirin (Ecotrin) 81 mg PO DAILY [facility] Last Admin: 06/20/17 09:51 Dose: 81 mg Atorvastatin Calcium (Lipitor) 20 mg PO [facility] Last Admin: 06/20/17 21:47 Dose: 20 mg Clopidogrel Bisulfate (Plavix) 75 mg PO DAILY [facility] Last Admin: 06/20/17 09:51 Dose: 75 mg Ezetimibe (Zetia) 10 mg PO [facility] Last Admin: 06/20/17 21:47 Dose: 10 mg Hydroxyzine HCl (Atarax) 10 mg PO [facility] Last Admin: 06/20/17 21:47 Dose: 10 mg Levalbuterol HCl (Xopenex) 1.25 mg IH TID [facility] Last Admin: 06/20/17 20:26 Dose: 1.25 mg Magnesium Oxide (Mag-Ox) 400 mg PO [facility] Last Admin: 06/20/17 21:47 Dose: 400 mg Metoprolol Tartrate (Lopressor) 25 mg PO [facility] Last Admin: 06/20/17 21:52 Dose: 25 mg Montelukast Sodium (Singulair) 10 mg PO [facility] Last Admin: 06/20/17 21:47 Dose: 10 mg Non-Formulary Medication (Calcium Carbonate/Vitamin D3 [Caltrate 600 + D Soft Chew Tab]) 600 mg PO DAILY [facility] Ranolazine [Ranexa (Er] 500 Mg)) 500 mg PO BID [facility] Last Admin: 06/20/17 17:40 Dose: 500 mg Non-Formulary Medication (Silodosin [Rapaflo]) 8 mg PO [facility] Last Admin: 06/20/17 21:48 Dose: 8 mg Nortriptyline HCl (Pamelor) 10 mg PO DAILY [facility] Last Admin: 06/20/17 09:51 Dose: 10 mg Ondansetron HCl (Zofran Tab) 4 mg PO Q6H PRN PRN Reason: Nausea/Vomiting Oxybutynin Chloride (Ditropan Tab) 5 mg PO HS [facility] Last Admin: 06/20/17 21:47 Dose: 5 mg Pantoprazole Sodium (Protonix Ec Tab) 40 mg PO DAILY [facility] Last Admin: 06/20/17 09:51 Dose: 40 mg - Labs Labs: 06/21/17 06:30 06/21/17 06:30 PT 13.0 SECONDS (9.4-12.5) H 06/18/17 11:20 INR 1.13 (0.93-1.08) H 06/18/17 11:20 APTT 29.3 Seconds (25.1-36.5) 06/18/17 11:20 - Constitutional Appears: Well - Head Exam Head Exam: ATRAUMATIC, NORMAL INSPECTION, NORMOCEPHALIC - Eye Exam Eye Exam: EOMI, Normal appearance, PERRL Pupil Exam: NORMAL ACCOMODATION, PERRL - ENT Exam ENT Exam: Mucous Membranes Moist, Normal Exam - Neck Exam Neck Exam: Full ROM, Normal Inspection. absent: Lymphadenopathy - Respiratory Exam Respiratory Exam: Clear to Ausculation Bilateral, NORMAL BREATHING PATTERN - Cardiovascular Exam Cardiovascular Exam: REGULAR RHYTHM, +S1, +S2. absent: Murmur - GI/Abdominal Exam GI & Abdominal Exam: Soft, Normal Bowel Sounds. absent: Tenderness - Extremities Exam Extremities Exam: Full ROM, Normal Capillary Refill, Normal Inspection. absent : Joint Swelling, Pedal Edema - Back Exam Back Exam: NORMAL INSPECTION - Neurological Exam Neurological Exam: Alert, Awake, CN II-XII Intact, Normal Gait, Oriented x3 - Psychiatric Exam Psychiatric exam: Normal Affect, Normal Mood - Skin Skin Exam: Dry, Intact, Normal Color, Warm Assessment and Plan (1) Near syncope Assessment & Plan: etiology ? preload dependency hydration Status: Acute (2) Shoulder pain Status: Acute (3) SOB (shortness of breath) Status: Acute (4) CAD (coronary artery disease) Assessment & Plan: stress test normal no evidence of ischemia Status: Chronic
[2017-06-21] MEDS: Pantoprazole 40 mg EC Tab PO SCH (12:32)
[2017-06-21] MEDS: RANOLAZINE 500 MG PO SCH ×2 (12:32→17:10)
[2017-06-21] MEDS: Levalbuterol 1.25 MG/3 ML Inhal Soln UD IH SCH (14:35)
--- NOTE | 2017-06-21 15:29 | CARD ---
APPROVED REPORT Protocol: LEXISCAN Test Type: Lexiscan Sestamibi Stress Test Attending Physician: Yaniv Terrell Referring Physician: Dr. Ted Santoyo Test Indications: Chest Pain Height:5 ft 2 in Weight:146lbs Medications: aspirin, lipitor, plavix, zetia, atarax, xopenex, mag-ox, metoprolol, singulair, ranexa ER, rapaflo, pamelor, zofran, ditropan, protonix Medical History: 77 year old male with a history of diabetes, htn high cholesterol CAD with stents x4, TIA, prostatectomy and lymphoma Target HR: 142 bpm Resting ECG: normal Resting Heart Rate: 59 bpm Resting Blood Pressure: 128/64mmHg Submaximum (85%): 121 bpm PROCEDURE Pharmacologic stress testing was performed using 0.4mg per 5ml of regadenoson given intravenously over 7-10 seconds. POST EXERCISE Reason for Termination: Protocol completed Target HR: No Max HR: 60 bpm 63% of Maximum Predicted HR: 142 bpm Exercise duration: 00:29 min:sec, 0 Stage Exercise capacity: 1.0METs Max Blood Pressure: 128/64mmHg Blood Pressure response to exercise: n/a Heart Rate response to exercise: n/a Chest Pain: No, none Angina index: 0 Arrhythmia: No, none ST Change: No, none Deviation: 0 mm Signed by Yaniv Perez Electronically Approved: 06/21/2017 09:55:00 EXAM: Myocardial Perfusion REST/STRESS Stress Test Type: Pharmacologic Imaging Protocol Rest Spect myocardial perfusion imaging was performed in supine position 45 minutes following the injection of 10.8 mCi of Tc-99 Myoview. At peak stress, the patient was injected intravenously with 30.5mCi of Tc-99 tetrofosmin after an infusion time of 0 minutes and 10 seconds. Gated Stress Spect was performed 70 minutes after intravenous Tc-99 Myoview injection. The images were gated to evaluate regional wall motion and calculate ventricular ejection fraction.Images were reconstructed using backfilter projection method in short horizontal and verticle long axis. Spect slices were generated. LV Perfusion The quality of the study is good. The left ventricle is normal in size. The right ventricle is unremarkable. The lung uptake is normal. The distribution of tracer reveals an area of mildly to moderately decreased perfusion in the mid to basal anteior wall on the stress study. The remainder of the LV myocardium is unremarkable. The rest myocardial perfusion study shows improvement of the defect. Wall Motion Wall motion study shows good contractility of the left ventricle. LVEF = 67%. Conclusion 1. Probably abnormal SPECT myocardial perfusion study. 2. Reverislble, mid to basal anterior defect is suspicious of ischemia. 3. Normal gated wall motion of the left ventricle.
[2017-06-21 15:48] VITALS: BP 123/74; RESP 18; TEMP 97.9
[2017-06-21 16:34] VITALS: PULSE 64
== END 2017-06-21 19:19 | disposition home or self-care (01) | DRG 552 ==
LOC: ED 10:43 → ERH 13:53 → 3RSO 16:02 → 2RNO 23:23 → OBSVTOIN 06-19 16:51
PROVIDERS: ADMIT Family Medicine; ATTEND Family Medicine
DX: M54.2 Cervicalgia (principal); N39.0 Urinary tract infection, site not specified; M25.512 Pain in left shoulder; M25.511 Pain in right shoulder; E11.9 Type 2 diabetes mellitus without complications; I25.10 Atherosclerotic heart disease of native coronary artery without angina pectoris; I65.29 Occlusion and stenosis of unspecified carotid artery; E78.5 Hyperlipidemia, unspecified; H91.93 Unspecified hearing loss, bilateral; J45.909 Unspecified asthma, uncomplicated; N40.0 Benign prostatic hyperplasia without lower urinary tract symptoms; D64.9 Anemia, unspecified; I08.2 Rheumatic disorders of both aortic and tricuspid valves; Z79.82 Long term (current) use of aspirin; Z85.118 Personal history of other malignant neoplasm of bronchus and lung; Z85.72 Personal history of non-Hodgkin lymphomas; Z87.01 Personal history of pneumonia (recurrent); Z87.440 Personal history of urinary (tract) infections; Z95.5 Presence of coronary angioplasty implant and graft; Z88.1 Allergy status to other antibiotic agents; Z88.0 Allergy status to penicillin; Z88.2 Allergy status to sulfonamides; Z88.8 Allergy status to other drugs, medicaments and biological substances; Z87.892 Personal history of anaphylaxis

== ENCOUNTER 2017-06-29 17:00 | Inpatient (IN) | payer MEDICARE, OTHER ==
[2017-06-29 17:00] VITALS: BMI 27.4
[2017-06-29] MEDS ORDERED: Morphine 4 mg/ml ISec IVP STA (17:34)
--- NOTE | 2017-06-29 17:41 | ED PDOC ---
Arrival/HPI - General Chief Complaint: Abdominal Pain Time Seen by Provider: 06/29/17 17:19 Historian: Patient, Spouse (Dr Marques) - History of Present Illness Narrative History of Present Illness (Text): 06/29/17 17:25 77 year old male, with past medical history of CAD with coronary stents, hyperlipidemia, diabetes, hypertension and lymphoma, presents to the emergency department complaining of severe mid to lower abdominal discomfort since 1:30pm this afternoon. Patient informs excruciating/severe discomfort at times radiating to the lower back. Patient denies symptoms similar to prior urinary retention, informing normal urination and bowel movement prior to arrival. Patient expresses mild nausea but denies any fever, chills, vomiting, diarrhea, chest pain, shortness of breath or any other complaints. pt states abd pain is persistent; Patient received his usual dosage of gamma globulin yesterday at Dr. Myers's office without any reciprocal reactions. Patient presents to the emergency department for further evaluation. pt denied LOC pt denied any trauma/sick contact, no travel PMD/Oncologist: Dr. Myers Urologist: Dr. He Time/Duration: Other (1:30pm today) Symptom Onset: Sudden Symptom Course: Unchanged Quality: Aching Severity Level: 10 Activities at Onset: Light Context: Home Past Medical History - Provider Review Nursing Documentation Reviewed: Yes - Travel History Have you recently traveled outside [place] w/in the past 3 mons?: No - Past History Past History: Unable to Obtain - Infectious Disease Hx of Infectious Diseases: None - Tetanus Immunization Tetanus Immunization: Unknown - Cardiac Hx Hypertension: Yes - Pulmonary Hx Respiratory Disorders: Yes Hx Asthma: Yes Hx Bronchitis: Yes Hx Pneumonia: Yes - Neurological Hx Neurological Disorder: Yes - HEENT Hx HEENT Disorder: Yes (wears glasses) Hx Deafness: Yes (pauma, b/l hearing aids) - Renal Hx Renal Disorder: No - Endocrine/Metabolic Hx Endocrine Disorders: Yes Hx Diabetes Mellitus Type 2: Yes - Hematological/Oncological Hx Blood Disorders: Yes Hx Anemia: Yes Hx Cancer: Yes (mantle cell lymphoma "active") - Integumentary Hx Dermatological Disorder: No - Musculoskeletal/Rheumatological Hx Falls: Yes - Gastrointestinal Hx Gastrointestinal Disorders: No - Genitourinary/Gynecological Hx Genitourinary Disorders: Yes Hx Prostate Problems: Yes (bph, prostectomy) Hx Urinary Tract Infection: Yes - Psychiatric Hx Psychophysiologic Disorder: No Hx Substance Use: No - Past Surgical History Past Surgical History: Unable to Obtain - Surgical History Hx Cardiac Catheterization: Yes (angioplasty 4 stents) Hx Coronary Stent: Yes Hx Orthopedic Surgery: Yes (right thumb) - Anesthesia Hx Anesthesia: Yes Hx Anesthesia Reactions: No Hx Malignant Hyperthermia: No - Suicidal Assessment Feels Threatened In Home Enviroment: No Family/Social History - Physician Review Nursing Documentation Reviewed: Yes Family/Social History: No Known Family HX Smoking Status: Never Smoked Hx Alcohol Use: No Hx Substance Use: No Hx Substance Use Treatment: No Allergies/Home Meds Allergies/Adverse Reactions: Allergies azithromycin Allergy (Severe, Verified 06/18/17 19:13) ANGIOEDEMA erythromycin base Allergy (Severe, Verified 06/18/17 19:13) ANGIOEDEMA Penicillins Allergy (Severe, Verified 06/18/17 19:13) ANAPHYLAXIS cephalexin monohydrate [From Keflex] Allergy (Intermediate, Verified 06/18/17 19 :13) RASH gabapentin Allergy (Intermediate, Verified 06/18/17 19:13) RASH pregabalin Allergy (Intermediate, Verified 06/18/17 19:13) RASH Sulfa (Sulfonamide Antibiotics) Allergy (Intermediate, Verified 06/18/17 19:13) RASH nitro paste Allergy (Intermediate, Uncoded 06/18/17 19:13) DIZZINESS/HYPOTENSION CAUSE HYPOTENSION Imbrovica Allergy (Uncoded 06/18/17 19:13) FEVER Home Medications: Home Meds Medication Instructions Recorded Confirmed Aspirin [Aspirin EC] 81 mg PO DAILY 09/10/15 06/29/17 Levalbuterol [Xopenex] 1.25 mg IH TID 01/31/16 06/29/17 Acetaminophen [Tylenol (Renal)] 650 mg PO Q6 PRN 04/21/16 06/29/17 Metoprolol Tartrate [Lopressor] 25 mg PO HS 04/21/16 06/29/17 Pantoprazole [Protonix EC Tab] 40 mg PO DAILY 04/21/16 06/29/17 Calcium Carbonate/Vitamin D3 600 mg PO DAILY 06/03/16 06/29/17 [Caltrate 600 + D Soft Chew Tab] Magnesium Oxide [Magnesium] 400 mg PO HS 06/03/16 06/29/17 Nortriptyline HCl [Pamelor] 10 mg PO DAILY 06/03/16 06/29/17 Ranolazine [Ranexa] 500 mg PO BID 06/03/16 06/29/17 Silodosin [Rapaflo] 8 mg PO HS 06/03/16 06/29/17 Ezetimibe [Zetia] 1 tab PO DAILY 06/18/17 06/29/17 Review of Systems - Physician Review All systems were reviewed & negative as marked: Yes - Review of Systems Constitutional: Normal. absent: Fevers Eyes: Normal ENT: Normal Respiratory: Normal. absent: SOB Cardiovascular: Normal. absent: Chest Pain Gastrointestinal: Abdominal Pain, Nausea. absent: Stool Changes, Diarrhea, Vomiting Genitourinary Male: Normal. absent: Urinary Output Changes Musculoskeletal: Normal Skin: Normal Neurological: Normal Endocrine: Normal Hemo/Lymphatic: Normal Psychiatric: Normal Physical Exam Vital Signs Reviewed: Yes Vital Signs Temp Pulse Resp BP Pulse Ox 06/29/17 21:23 97.8 F 97 H 16 156/82 H 99 06/29/17 19:10 97.5 F L 103 H 16 143/88 99 06/29/17 17:31 98.3 F 74 18 108/57 L 100 Temperature: Afebrile Blood Pressure: Hypotensive Pulse: Regular Respiratory Rate: Normal Appearance: Positive for: Non-Toxic, Uncomfortable, Other (resting in bed, alert /awake, GCS = 15, oriented x 3, uncomfortable, moderate distress due to pain) Pain Distress: Moderate Mental Status: Positive for: Alert and Oriented X 3 - Systems Exam Head: Present: Atraumatic, Normocephalic, Other (mild bi-temporal wastin) Pupils: Present: PERRL, Other (no nystagmus, no photophobia, sclera anicteric, visual field intact b/l) Extroacular Muscles: Present: EOMI Conjunctiva: Present: Normal Ears: Present: Normal Mouth: Present: Dry, Other (poor dentitions, no drooling/stridor, no exudate/ lesions, uvula/tongue are midline) Pharnyx: Present: Normal Nose (External): Present: Atraumatic Nose (Internal): Present: Normal Inspection Neck: Present: Normal Range of Motion, Other (intact ROM, no midline tenderness , no nuchal rigidity). No: Meningeal Signs, MIDLINE TENDERNESS, Paraspinal Tenderness, Trachea Midline Respiratory/Chest: Present: Clear to Auscultation, Good Air Exchange, Other ( CTA b/l, no w/r/r, no accessory muscle use noted). No: Respiratory Distress, Accessory Muscle Use Cardiovascular: Present: Regular Rate and Rhythm, Normal S1, S2. No: Murmurs Abdomen: Present: Tenderness (diffused lower abdominal tenderness; slight rebound noted, no guarding/rigidity/masses, + soft), Distention (slight distention), Normal Bowel Sounds, Other (no yap's sign, diffuse lower abd tenderness, no masses noted). No: Peritoneal Signs, Rebound, Guarding, Mass/ Organomegaly Back: Present: Normal Inspection. No: CVA Tenderness, Midline Tenderness, Paraspinal Tenderness Upper Extremity: Present: Normal Inspection, Normal ROM, NORMAL PULSES. No: Cyanosis, Edema Lower Extremity: Present: Normal Inspection, NORMAL PULSES, Normal ROM, Neurovascularly Intact. No: Edema Neurological: Present: GCS=15, CN II-XII Intact, Speech Normal Skin: Present: Warm, Dry, Normal Color, Other (cap refill ~ 1sec, no ulcerations , no petechiae). No: Rashes Psychiatric: Present: Alert, Oriented x 3, Normal Insight, Normal Concentration Medical Decision Making ED Course and Treatment: 06/29/17 17:30 Impression: 77 year old male presents to the emergency department for mid to lower abdominal discomfort. Differential Diagnosis: I have considered all differential diagnoses regarding patient's chief medical complaints/clinical findings but are not limited to: nonspecific abdominal pain vs urinary retention vs. severe infection vs obstruction vs perforation Plan: -- Blood Type/Screen -- EKG -- Labs -- CXR -- Morphine -- X-ray of Abdomen -- Urinalysis -- Reassess and disposition Progress Notes: 1924 pt received pain medication as well as urinary cath and noted improvement, pt states abd pain is now 6-7/10 abd re-exam indicate severe tenderness however awaiting CT results I am in contact with Ted Ramos, who would like CT for the patient but would like PO contrast against much of my disagreement, as i prefer CT abd/ pelvis IV only pt is currently drinking contrast, awaiting CT to be performed 06/29/17 21:20 Dr Santoyo is aware, will admit patient most likely Dr Casiano is at bedside, would like surg consult 06/29/17 21:21 associate vice president is at bedside, consulted, made aware, will see patient Due to abnl CT findings, likely perf/free air, he will contact Mark Butler for further treatment, likely to the OR/would like ICU consult/ placement Dr Santoyo contacted, made aware of pt's CT findings, agrees with ED mgt/txt , agrees with admission ICU intensivists, Dr Trujillo contacted, made aware, will see patient, will admit pt to the ICU 06/29/17 21:23 Dr Santoyo would like to consult dr landaverde, and dr russell as well i paged Dr Barry, but no reply was noted, will go ahead and prescribe Vanco + meropenme for the patient pt is currently resting in bed, NAD, mild pain on re-exam Surg will likely take patient to the OR tonight 2200 pt/family are made aware of pt's medical results agrees with admission Re-evaluation Time: 19:40 Reassessment Condition: Improving,but remains with symptoms - Critical Care Critical Care Minutes: 75 minutes Critical Care Time: Excluding Proc Time Narrative Critical Care (Text): 06/29/17 22:33 critical care time: 75min, excluding procedure time, excluding time teaching residents/students/mid-level providers; including initial eval/diagnosis, diagnostic interpretation, re-eval, consultations, final disposition - Lab Interpretations Lab Results: 06/29/17 18:36 06/29/17 18:36 Lab Results 06/29/17 18:50: pO2 82 H, VBG pH 7.36, VBG pCO2 50.0, VBG HCO3 28.2 H, VBG Total CO2 29.7 H, VBG O2 Sat (Calc) 97.6 H, VBG Base Excess 1.9, VBG Potassium 3.9, Glucose 208 H, Lactate 2.1, FiO2 21.0, Sodium 137.0, Chloride 105.0, Venous Blood Potassium 3.9 06/29/17 18:46: Blood Type A NEGATIVE, Antibody Screen Negative, Crossmatch See Detail, BBK History Checked Patient has bt 06/29/17 18:37: Urine Color Light yellow, Urine Appearance Clear, Urine pH 6.0, Ur Specific [place] 1.015, Urine Protein Negative, Urine Glucose (UA) Negative, Urine Ketones Negative, Urine Blood Trace-intact H, Urine Nitrate Negative, Urine Bilirubin Negative, Urine Urobilinogen 0.2, Ur Leukocyte Esterase Negative , Urine RBC Negative, Urine WBC 0 - 2, Ur Epithelial Cells 0 - 2, Urine Bacteria Neg 06/29/17 18:36: PT 11.4, INR 1.00, APTT 44.1 H 06/29/17 18:36: WBC 6.0 D, RBC 4.07, Hgb 11.6 L, Hct 35.1 L, MCV 86.2, MCH 28.5 , MCHC 33.0, RDW 13.9, Plt Count 172, MPV 10.0, Gran % 73.7 H, Lymph % (Auto) 23.6, [place] % (Auto) 2.7, Eos % (Auto) 0.0 L, Baso % (Auto) 0.0, Gran # 4.44, Lymph # (Auto) 1.4, [place] # (Auto) 0.2, Eos # (Auto) 0.0, Baso # (Auto) 0.00 06/29/17 18:36: Sodium 139, Potassium 3.9, Chloride 102, Carbon Dioxide 27, Anion Gap 13, BUN 29 H, Creatinine 1.2, Est GFR ( Amer) > 60, Est GFR ( Non-Af Amer) 59, Random Glucose 196 H, Calcium 9.0, Total Bilirubin 0.7, AST 21 , ALT 28, Alkaline Phosphatase 99, Troponin I < 0.01, Total Protein 7.4, Albumin 3.9, Globulin 3.5, Albumin/Globulin Ratio 1.1, Lipase 25 I have reviewed the lab results: Yes Interpretation: Abnormal lab values (elevated GLUC) - RAD Interpretation Narrative RAD Interpretations (Text): 06/29/17 18:34 Chest X-ray reviewed by radiologist, shows: FINDINGS: LUNGS: Right MediPort unchanged in position. No acute infiltrate bilaterally. PLEURA: No significant pleural effusion identified, no pneumothorax apparent. CARDIOVASCULAR: Stable cardiomegaly without pulmonary vascular derangement identified. OSSEOUS STRUCTURES: No significant abnormalities. VISUALIZED UPPER ABDOMEN: Normal. OTHER FINDINGS: None. IMPRESSION: Stable cardiomegaly and MediPort placement right chest. No acute infiltrate bilaterally. No pleural effusion appreciable. 06/29/17 18:35 X-ray of Abdomen/Pelvis reviewed by radiologist, shows: FINDINGS: BOWEL: There is a nonspecific bowel gas pattern identified with gas seen partially filling several small-bowel loops of the right flank/ right lower quadrant abdomen with retained fecal material mildly seen in the right hemicolon and mildly at the left. No large free intraperitoneal gas collection or abnormal intra-abdominal calcifications noted. Phlebolith like calcifications seen the inferior pelvis soft tissues. BONES: Normal. OTHER FINDINGS: None. IMPRESSION: Nonspecific bowel gas pattern. No prominent free intraperitoneal gas identified. 06/29/17 21:31 CT of Abdomen/Pelvis reviewed by radiologist, shows: FINDINGS: Lung bases: Linear atelectasis or fibrosis in the lung bases. Heart: Coronary artery calcifications. ABDOMEN: Liver: Unremarkable. No mass. Gallbladder and bile ducts: Unremarkable. No calcified stones. No ductal dilation. Pancreas: Unremarkable. No mass. No ductal dilation. Spleen: Unremarkable. No splenomegaly. Adrenals: Unremarkable. No mass. Kidneys and ureters: Small probable cysts in each kidney. No hydronephrosis. Stomach and bowel: Scattered diverticula in the colon. There is mucosal thickening in the sigmoid colon with extensive surrounding inflammation consistent with acute diverticulitis. Moderate fecal retention in the right and transverse colon and in the distal ileum consistent with constipation. No obstruction. PELVIS: Appendix: No findings to suggest acute appendicitis. Bladder: Unremarkable. No mass. Reproductive: Unremarkable as visualized. ABDOMEN and PELVIS: Intraperitoneal space: Small amount of free air or adjacent to the sigmoid colon a moderate amount of free air in the abdomen consistent with perforation due to the diverticulitis. No definite abscess. No significant fluid collection. Bones/joints: No acute fracture. No dislocation. Soft tissues: Unremarkable. Vasculature: Atherosclerotic disease. No abdominal aortic aneurysm. Lymph nodes: Unremarkable. No enlarged lymph nodes. IMPRESSION: 1. Scattered diverticula in the colon. There is mucosal thickening in the sigmoid colon with extensive surrounding inflammation consistent with acute diverticulitis. 2. Small amount of free air or adjacent to the sigmoid colon a moderate amount of free air in the abdomen consistent with perforation due to the diverticulitis. No definite abscess. 3. Moderate fecal retention in the right and transverse colon and in the distal ileum consistent with constipation. 06/29/17 22:34 Radiology Orders: 06/29/17 17:33 CHEST PORTABLE [RAD] Stat ABDOMEN PORTABLE 2 VIEWS [RAD] Stat 06/29/17 19:05 ABD PELVIS PO & IV CONTRAST [CT] Stat Plasma Processor: Radiologist - EKG Interpretation EKG Interpretation (Text): 06/29/17 22:34 Sinus royal at 50 bpm, normal axis, no ectopy, inverted T in leads I, L, V2, no st changes, ABNL EKG; unchanged compare with old ekg 06/2017 Interpreted by ED Physician: Yes Type: 12 lead EKG Comparison: Similar to previous EKG - Medication Orders Current Medication Orders: Alprazolam (Xanax) 0.25 mg PO BID PRN; Protocol PRN Reason: Anxiety Stop: 07/06/17 19:29 Aspirin (Ecotrin) 81 mg PO DAILY ALEX Clopidogrel Bisulfate (Plavix) 75 mg PO DAILY ALEX Furosemide (Lasix) 20 mg PO DAILY [facility] Hydromorphone HCl (Dilaudid) 0.5 mg IVP Q3H PRN PRN Reason: Pain, Mild (1-3) Vancomycin HCl (Vancomycin 1gm) 1 gm in 250 mls @ 167 mls/hr IVPB STAT STA PRN Reason: Protocol Stop: 06/29/17 22:57 Meropenem (Merrem Iv 1 Gm Premix) 50 mls @ 100 mls/hr IVPB Q12 ALEX PRN Reason: Protocol Lactated Ringer's (Lactated Ringer's) 1,000 mls @ 130 mls/hr IV .Q7H42M ALEX Levalbuterol HCl (Xopenex) 0.63 mg IH BID [facility] Metoprolol Tartrate (Lopressor) 25 mg PO DAILY [facility] Metoprolol Tartrate (Lopressor) 12.5 mg PO DAILY ALEX Last Admin: 06/29/17 21:26 Dose: Montelukast Sodium (Singulair) 10 mg PO DAILY ALEX Nortriptyline HCl (Pamelor) 10 mg PO DAILY ALEX Ondansetron HCl (Zofran Inj) 4 mg IVP Q4H PRN PRN Reason: Nausea/Vomiting Oxybutynin Chloride (Ditropan Tab) 5 mg PO HS [facility]LEX Pantoprazole Sodium (Protonix Ec Tab) 40 mg PO DAILY ALEX Discontinued Medications Sodium Chloride (Sodium Chloride 0.9%) 500 mls @ 999 mls/hr IV .Q31M STA Stop: 04/27/18 19:35 Last Admin: 06/29/17 19:20 Dose: 999 mls/hr eMAR Start Stop Document 06/29/17 19:20 MS (Rec: 06/29/17 19:20 MS [id number]) Intravenous Solution Start Date 06/29/17 Start Time 19:20 End Date 06/29/17 End time 19:50 Total Infusion Time 30 Meropenem (Merrem Iv 1 Gm Premix) 50 mls @ 100 mls/hr IVPB STAT STA PRN Reason: Protocol Stop: 06/29/17 22:03 Last Admin: 06/29/17 22:29 Dose: 100 mls/hr eMAR Start Stop Document 06/29/17 22:29 MS (Rec: 06/29/17 22:29 MS [id number]) Intravenous Solution Start Date 06/29/17 Start Time 22:29 End Date 06/29/17 End time 22:59 Total Infusion Time 30 Morphine Sulfate (Morphine) 4 mg IVP STAT STA Stop: 06/29/17 17:35 Last Admin: 06/29/17 17:53 Dose: 4 mg MAR Pain Assessment Document 06/29/17 17:53 MS (Rec: 06/29/17 17:54 MS [id number]) Pain Reassessment Is this a pain reassessment? No Sleep Is patient sleeping during reassessment? No Presence of Pain Presence of Pain Yes Pain Scale Used Pain Scale Used Numeric Location Upper or Lower Lower Pain Location Body Site Abdomen Description Description Constant Intensity of Pain at present 10 Pain Behavior Moaning Guarding Irritability IVP Administration Document 06/29/17 17:53 MS (Rec: 06/29/17 17:54 MS [id number]) Charges for Administration # of IVP Administrations 1 - Scribe Statement The provider has reviewed the documentation as recorded by the Scribe Jamie Hwang. All medical record entries made by the Jadielibyovana were at my direction and personally dictated by me. I have reviewed the chart and agree that the record accurately reflects my personal performance of the history, physical exam, medical decision making, and the department course for this patient. I have also personally directed, reviewed, and agree with the discharge instructions and disposition. Disposition/Present on Arrival - Present on Arrival Any Indicators Present on Arrival: No History of DVT/PE: No History of Uncontrolled Diabetes: No Urinary Catheter: No History of Decub. Ulcer: No History Surgical Site Infection Following: None - Disposition Have Diagnosis and Disposition been Completed?: Yes Diagnosis: Acute abdominal pain, Diverticulitis of colon with perforation, Intractable abdominal pain, Hyperglycemia, Constipation Disposition: HOSPITALIZED Disposition Time: 21:00 Patient Plan: Admission, ICU Patient Problems: Current Active Problems Problem Status Onset Acute abdominal pain Acute Diverticulitis of colon with perforation Acute Hyperglycemia Acute Intractable abdominal pain Acute Condition: FAIR
--- NOTE | 2017-06-29 18:16 | RAD ---
HISTORY: severe abd pain, acute onset COMPARISON: None. FINDINGS: BOWEL: There is a nonspecific bowel gas pattern identified with gas seen partially filling several small-bowel loops of the right flank/ right lower quadrant abdomen with retained fecal material mildly seen in the right hemicolon and mildly at the left. No large free intraperitoneal gas collection or abnormal intra-abdominal calcifications noted. Phlebolith like calcifications seen the inferior pelvis soft tissues. BONES: Normal. OTHER FINDINGS: None. IMPRESSION: Nonspecific bowel gas pattern. No prominent free intraperitoneal gas identified.
--- NOTE | 2017-06-29 18:17 | RAD ---
HISTORY: severe abd pain COMPARISON: Portable chest 06/18/2017. FINDINGS: LUNGS: Right MediPort unchanged in position. No acute infiltrate bilaterally. PLEURA: No significant pleural effusion identified, no pneumothorax apparent. CARDIOVASCULAR: Stable cardiomegaly without pulmonary vascular derangement identified. OSSEOUS STRUCTURES: No significant abnormalities. VISUALIZED UPPER ABDOMEN: Normal. OTHER FINDINGS: None. IMPRESSION: Stable cardiomegaly and MediPort placement right chest. No acute infiltrate bilaterally. No pleural effusion appreciable.
[2017-06-29] MEDS ORDERED: Iohexol 240 (50 ml) ONE (18:58)
[2017-06-29 19:04] LABS: GRAN # 4.44 (1.4-6.5); GRAN % 73.7 % (50.0-68.0); HEMOGLOBIN 11.6 g/dL (14.0-18.0); LYMPH # 1.4 (1.2-3.4); LYMPH % 23.6 % (22.0-35.0); MEAN CELL VOLUME 86.2 fl (80.0-105.0); MEAN CORPUSCULAR HEMOGLOBIN 28.5 pg (25.0-35.0); MONO # 0.2 (0.1-0.6); MONO % 2.7 % (1.0-6.0); RBC 4.07 10^6/uL (3.5-6.1); RED CELL DISTRIBUTION WIDTH 13.9 % (11.5-14.5)
[2017-06-29] MEDS ORDERED: Sodium Chloride 0.9% 500 ML IV STA (19:05)
[2017-06-29 19:07] LABS: VENOUS BLOOD GAS BASE EXCESS 1.9 mmol/L (0.0-2.0); VENOUS BLOOD GAS PO2 82 mm/Hg (30-55); VENOUS BLOOD PH 7.36 (7.32-7.43)
[2017-06-29 19:10] LABS: PARTIAL THROMBOPLASTIN TIME 44.1 Seconds (25.1-36.5); PROTHROMBIN TIME 11.4 SECONDS (9.4-12.5)
[2017-06-29 19:15] LABS: ALB/GLOB RATIO 1.1 (1.1-1.8); ALBUMIN 3.9 g/dL (3.0-4.8); ALT/SGPT 28 U/L (7-56); AST/SGOT 21 U/L (17-59); BLOOD UREA NITROGEN 29 mg/dL (7-21); GFR AFRICAN-AMERICAN > 60; GFR NON-AFRICAN AMERICAN 59; LIPASE 25 U/L (23-300)
[2017-06-29 19:19] LABS: TROPONIN I < 0.01 ng/mL
[2017-06-29] MEDS ORDERED: Sodium Chloride 0.9% 500 ML IV SCH (20:00)
[2017-06-29 20:35] LABS: URINE BILIRUBIN NEGATIVE (NEGATIVE); URINE BLOOD TRACE-INTACT (NEGATIVE); URINE GLUCOSE (UA) NEGATIVE (NEGATIVE); URINE LEUKOCYTE ESTERASE NEGATIVE Leu/uL (NEGATIVE); URINE PROTEIN NEGATIVE mg/dL (<30 mg/dL); URINE UROBILINOGEN 0.2 E.U./dL (<1 E.U./dL)
[2017-06-29] MEDS ORDERED: Iohexol 350 MG/100 ML VIAL ONE (20:36)
[2017-06-29 20:38] LABS: URINE APPEARANCE CLEAR (CLEAR); URINE COLOR LIGHT YELLOW (YELLOW)
[2017-06-29 21:00] LABS: URINE BACTERIA NEG (NEG); URINE EPITHELIAL CELLS 0 - 2 /hpf (0-5); URINE RBC NEGATIVE /hpf (0-2); URINE WBC 0 - 2 /hpf (0-6)
[2017-06-29] MEDS ORDERED: Vancomycin 1gm in NS 250ml 1 GM/250 ML BAG IVPB STA (21:28)
[2017-06-29] MEDS ORDERED: Meropenem IV 1 gm in NS 50 ML IVPB STA (21:34)
--- NOTE | 2017-06-29 22:42 | CP.PCM.CON ---
History of Present Illness - History of Present Illness History of Present Illness: General Surgery: Dr Pabon Re: Acute abdomen Pt is a 77M with PMH of stage IV mantle cell lymphoma, lung adeno ca s/p wedge resection, CAD s/p stents x 4, BPH, HTN, HLD, recurrent UTI and diverticulitis. Pt presents to ED with abdominal pain which started around 1PM. Pt states the pain was initially in his lower abdomen but slowly became diffuse throughout the day. He has had associated nausea, and chills, but no emesis or documented fever. Pt had a bowel movement earlier today, prior to the onset of pain, which was difficult and possibly involved straining. Pt currently on aspirin and plavix due to stents. Recent stress test earlier this month demonstrates no evidence of ischemia. EF w/in normal range. PMH: stage IV mantle cell lymphoma, lung ca, CAD, HTN, HLD, BPH PSH: angioplasty x 4, wedge resection ALL: see above Review of Systems - Review of Systems All systems: reviewed and no additional remarkable complaints except (as per hpi ) Past Patient History - Infectious Disease Hx of Infectious Diseases: None - Tetanus Immunizations Tetanus Immunization: Unknown - Past Medical History & Family History Past Medical History?: Yes - Past Social History Smoking Status: Never Smoked - CARDIAC Hx Hypertension: Yes - PULMONARY Hx Respiratory Disorders: Yes Hx Asthma: Yes Hx Bronchitis: Yes Hx Pneumonia: Yes - NEUROLOGICAL Hx Neurological Disorder: Yes - HEENT Hx HEENT Problems: Yes (wears glasses) Hx Deafness: Yes ([place], b/l hearing aids) - RENAL Hx Chronic Kidney Disease: No - ENDOCRINE/METABOLIC Hx Endocrine Disorders: Yes Hx Diabetes Mellitus Type 2: Yes - HEMATOLOGICAL/ONCOLOGICAL Hx Blood Disorders: Yes Hx Anemia: Yes Hx Cancer: Yes (mantle cell lymphoma "active") - INTEGUMENTARY Hx Dermatological Problems: No - MUSCULOSKELETAL/RHEUMATOLOGICAL Hx Falls: Yes - GASTROINTESTINAL Hx Gastrointestinal Disorders: No - GENITOURINARY/GYNECOLOGICAL Hx Genitourinary Disorders: Yes Hx Prostate Problems: Yes (bph, prostectomy) Hx Urinary Tract Infection: Yes - PSYCHIATRIC Hx Psychophysiologic Disorder: No Hx Substance Use: No - SURGICAL HISTORY Hx Cardiac Catheterization: Yes (angioplasty 4 stents) Hx Coronary Stent: Yes Hx Orthopedic Surgery: Yes (right thumb) - ANESTHESIA Hx Anesthesia: Yes Hx Anesthesia Reactions: No Hx Malignant Hyperthermia: No Meds Allergies/Adverse Reactions: Allergies Allergy/AdvReac Type Severity Reaction Status Date / Time azithromycin Allergy Severe ANGIOEDEMA Verified 06/18/17 19:13 erythromycin base Allergy Severe ANGIOEDEMA Verified 06/18/17 19:13 Penicillins Allergy Severe ANAPHYLAXIS Verified 06/18/17 19:13 cephalexin monohydrate Allergy Intermediate RASH Verified 06/18/17 19:13 [From Keflex] gabapentin Allergy Intermediate RASH Verified 06/18/17 19:13 pregabalin Allergy Intermediate RASH Verified 06/18/17 19:13 Sulfa (Sulfonamide Allergy Intermediate RASH Verified 06/18/17 19:13 Antibiotics) nitro paste Allergy Intermediate DIZZINESS/H Uncoded 06/18/17 19:13 YPOTENSION Imbrovica Allergy FEVER Uncoded 06/18/17 19:13 - Medications Medications: Current Medications Alprazolam (Xanax) 0.25 mg PO BID PRN; Protocol PRN Reason: Anxiety Stop: 07/06/17 19:29 Aspirin (Ecotrin) 81 mg PO DAILY [facility] Clopidogrel Bisulfate (Plavix) 75 mg PO DAILY [facility] Furosemide (Lasix) 20 mg PO DAILY [facility] Hydromorphone HCl (Dilaudid) 0.5 mg IVP Q3H PRN PRN Reason: Pain, Mild (1-3) Vancomycin HCl (Vancomycin 1gm) 1 gm in 250 mls @ 167 mls/hr IVPB STAT STA PRN Reason: Protocol Stop: 06/29/17 22:57 Meropenem (Merrem Iv 1 Gm Premix) 50 mls @ 100 mls/hr IVPB Q12 ALEX PRN Reason: Protocol Lactated Ringer's (Lactated Ringer's) 1,000 mls @ 130 mls/hr IV .Q7H42M [facility] Levalbuterol HCl (Xopenex) 0.63 mg IH BID [facility] Metoprolol Tartrate (Lopressor) 25 mg PO DAILY [facility] Metoprolol Tartrate (Lopressor) 12.5 mg PO DAILY [facility] Last Admin: 06/29/17 21:26 Dose: Not Given Montelukast Sodium (Singulair) 10 mg PO DAILY [facility] Nortriptyline HCl (Pamelor) 10 mg PO DAILY [facility] Ondansetron HCl (Zofran Inj) 4 mg IVP Q4H PRN PRN Reason: Nausea/Vomiting Oxybutynin Chloride (Ditropan Tab) 5 mg PO HS [facility] Pantoprazole Sodium (Protonix Ec Tab) 40 mg PO DAILY [facility] Physical Exam - Constitutional Appears: Non-toxic - Eye Exam Eye Exam: absent: Scleral icterus - ENT Exam ENT Exam: Mucous Membranes Moist, Normal Exam - Respiratory Exam Respiratory Exam: absent: Accessory Muscle Use, Respiratory Distress - Cardiovascular Exam Cardiovascular Exam: Tachycardia (100-110), REGULAR RHYTHM - GI/Abdominal Exam GI & Abdominal Exam: Distended, Firm, Guarding (involuntary), Hernia (left inguinal), Rigid, Tenderness (diffuse). absent: Rebound, Soft - Rectal Exam Rectal Exam: absent: Deferred - Neurological Exam Neurological exam: Alert, Oriented x3 - Psychiatric Exam Psychiatric exam: Anxious, Normal Affect - Skin Skin Exam: Normal Color, Warm Results - Vital Signs Recent Vital Signs: Last Vital Signs Temp 97.8 F 06/29/17 21:23 Pulse 97 H 06/29/17 21:23 Resp 16 06/29/17 21:23 BP 156/82 H 06/29/17 21:23 Pulse Ox 99 06/29/17 21:23 - Labs Result Diagrams: 06/29/17 18:36 06/29/17 18:36 Assessment & Plan - Assessment and Plan (Free Text) Assessment: 77M with perforated viscus; presumably diverticular in origin Plan: ICU Admission NPO Iv Vanco & Merrem (ID consult) morales placement - U/O 150 on insertion and ~40/hr since then dilaudid/zofran PRN platelets and blood on hold blood culture, urine culture cont IV hydration pt will likely require operation, Milli's procedure, this evening d/w pt and who is bedside. Consent given, risks/benefits of both operation and conservative mgmt were given. D/W Dr Cm Grijalva, PGY3 - Date & Time Date: 06/29/17 Time: 22:46
--- NOTE | 2017-06-29 23:42 | CP.PCM.CON ---
<Hilary Doe - Last Filed: 06/30/17 04:57> History of Present Illness - History of Present Illness History of Present Illness: PGY-[address] Trujillo ICU consult: Acute Abdomen Mr Marques, 77M, with PMH of stage IV mantle cell lymphoma, lung adeno ca s/p wedge resection, CAD s/p stents x 4, HTN, HLD, BPH with recurrent UTI, presents to ED with abdominal pain which started around 1:30 PM. Pt states the pain was excruciating/severe discomfort at times radiating to the lower back. The pain started initially in his lower abdomen but slowly became diffuse throughout the day, and now became persistent. He has had associated nausea, and chills, but no emesis or documented fever. Pt had a bowel movement earlier today, prior to the onset of pain, which was difficult. Pt currently on aspirin and plavix due to stents. Recent stress test earlier this month showed reversible, [id number] anterior ischemic defect. EF w/in normal range. RVSP 37. Patient received his usual dosage of gamma globulin yesterday at Dr. Myers's office without any reaction. In the ED, pt received morphine 4mg x1, as well as urinary cath and noted improvement, pt states abd pain is now 6-7/10. CT showed free air, likely perforated diverticulitis. Pt will be transfuse platelet in ICU and go to the OR for exploratory laparotomy with nishant procedure. EKG: Sinus royal at 50 bpm, normal axis, no ectopy, inverted T in leads I, L, V2 , no st changes; unchanged compare with old ekg 06/2017 PMH: stage IV mantle cell lymphoma, lung ca s/p wedge resection CAD s/p stents, HTN, HLD, (Echo 06/2017: EF > 60, moderate aortic regurg, mild pulm htn RVSP 37) BPH, recurrent UTI Hard of hearing (b/l hearing aids) PSH: angioplasty x 4, wedge resection Prostectomy R thumb surgery FH: heart disease SH: Denies smoke, etoh, drug All: Azithromycin, erythromycin, Penicillin Cephalexin Gabapenin, pregabalin Sulfa drugs Nitro paste Imbrovica Med: See MAR PMD & Heme/Onc: Dr Myers Urologist: Dr. He Review of Systems - Constitutional Constitutional: Chills, Fatigue - EENT Ears: Decreased Hearing Nose/Mouth/Throat: absent: Nasal Congestion, Nasal Discharge - Cardiovascular Cardiovascular: Slow Heart Rate. absent: Chest Pain - Respiratory Respiratory: absent: Cough, Dyspnea, Hemoptysis, Chest Congestion - Gastrointestinal Gastrointestinal: Abdominal Pain, Constipation. absent: Belching, Bloating - Genitourinary Genitourinary: Difficulty Urinating. absent: Hematuria, Urinary Frequency, Urinary Urgency - Psychiatric Psychiatric: absent: Anxiety - Endocrine Endocrine: absent: Palpitations Past Patient History - Infectious Disease Hx of Infectious Diseases: None - Tetanus Immunizations Tetanus Immunization: Unknown - Past Medical History & Family History Past Medical History?: Yes - Past Social History Smoking Status: Never Smoked - CARDIAC Hx Hypertension: Yes - PULMONARY Hx Respiratory Disorders: Yes Hx Asthma: Yes Hx Bronchitis: Yes Hx Pneumonia: Yes - NEUROLOGICAL Hx Neurological Disorder: Yes - HEENT Hx HEENT Problems: Yes (wears glasses) Hx Deafness: Yes ([place], b/l hearing aids) - RENAL Hx Chronic Kidney Disease: No - ENDOCRINE/METABOLIC Hx Endocrine Disorders: Yes Hx Diabetes Mellitus Type 2: Yes - HEMATOLOGICAL/ONCOLOGICAL Hx Blood Disorders: Yes Hx Anemia: Yes Hx Cancer: Yes (mantle cell lymphoma "active") - INTEGUMENTARY Hx Dermatological Problems: No - MUSCULOSKELETAL/RHEUMATOLOGICAL Hx Falls: Yes - GASTROINTESTINAL Hx Gastrointestinal Disorders: No - GENITOURINARY/GYNECOLOGICAL Hx Genitourinary Disorders: Yes Hx Prostate Problems: Yes (bph, prostectomy) Hx Urinary Tract Infection: Yes - PSYCHIATRIC Hx Psychophysiologic Disorder: No Hx Substance Use: No - SURGICAL HISTORY Hx Cardiac Catheterization: Yes (angioplasty 4 stents) Hx Coronary Stent: Yes Hx Orthopedic Surgery: Yes (right thumb) - ANESTHESIA Hx Anesthesia: Yes Hx Anesthesia Reactions: No Hx Malignant Hyperthermia: No Meds Allergies/Adverse Reactions: Allergies Allergy/AdvReac Type Severity Reaction Status Date / Time azithromycin Allergy Severe ANGIOEDEMA Verified 06/18/17 19:13 erythromycin base Allergy Severe ANGIOEDEMA Verified 06/18/17 19:13 Penicillins Allergy Severe ANAPHYLAXIS Verified 06/18/17 19:13 cephalexin monohydrate Allergy Intermediate RASH Verified 06/18/17 19:13 [From Keflex] gabapentin Allergy Intermediate RASH Verified 06/18/17 19:13 pregabalin Allergy Intermediate RASH Verified 06/18/17 19:13 Sulfa (Sulfonamide Allergy Intermediate RASH Verified 06/18/17 19:13 Antibiotics) nitro paste Allergy Intermediate DIZZINESS/H Uncoded 06/18/17 19:13 YPOTENSION Imbrovica Allergy FEVER Uncoded 06/18/17 19:13 - Medications Medications: Current Medications Alprazolam (Xanax) 0.25 mg PO BID PRN; Protocol PRN Reason: Anxiety Stop: 07/06/17 19:29 Aspirin (Ecotrin) 81 mg PO DAILY [facility] Clopidogrel Bisulfate (Plavix) 75 mg PO DAILY [facility] Furosemide (Lasix) 20 mg PO DAILY [facility] Hydromorphone HCl (Dilaudid) 0.5 mg IVP Q3H PRN PRN Reason: Pain, Mild (1-3) Meropenem (Merrem Iv 1 Gm Premix) 50 mls @ 100 mls/hr IVPB Q12 ALEX PRN Reason: Protocol Lactated Ringer's (Lactated Ringer's) 1,000 mls @ 130 mls/hr IV .Q7H42M [facility] Levalbuterol HCl (Xopenex) 0.63 mg IH BID [facility] Metoprolol Tartrate (Lopressor) 25 mg PO DAILY [facility] Metoprolol Tartrate (Lopressor) 12.5 mg PO DAILY [facility] Last Admin: 06/29/17 21:26 Dose: Not Given Montelukast Sodium (Singulair) 10 mg PO DAILY [facility] Nortriptyline HCl (Pamelor) 10 mg PO DAILY [facility] Ondansetron HCl (Zofran Inj) 4 mg IVP Q4H PRN PRN Reason: Nausea/Vomiting Oxybutynin Chloride (Ditropan Tab) 5 mg PO HS [facility] Pantoprazole Sodium (Protonix Ec Tab) 40 mg PO DAILY [facility] Physical Exam - Constitutional Appears: Non-toxic - Head Exam Head Exam: ATRAUMATIC, NORMAL INSPECTION, NORMOCEPHALIC - Eye Exam Eye Exam: EOMI, Normal appearance, PERRL. absent: Scleral icterus Pupil Exam: NORMAL ACCOMODATION - ENT Exam ENT Exam: Mucous Membranes Moist - Neck Exam Additional comments: supple, No JVD - Respiratory Exam Respiratory Exam: Clear to Auscultation Bilateral. absent: Rales, Rhonchi, Wheezes - Cardiovascular Exam Cardiovascular Exam: Bradycardia, REGULAR RHYTHM, +S1, +S2, Systolic Murmur Additional comments: R chest port intact, no erythema/drainage - GI/Abdominal Exam GI & Abdominal Exam: Guarding, Hypoactive Bowel Sounds, Rebound, Soft. absent: Distended, Rigid - Extremities Exam Extremities exam: Positive for: pedal pulses present. Negative for: calf tenderness, pedal edema - Neurological Exam Neurological exam: Alert, Oriented x3 - Psychiatric Exam Psychiatric exam: Normal Affect, Normal Mood - Skin Skin Exam: Dry, Warm Results - Vital Signs Recent Vital Signs: Last Vital Signs Temp 97.8 F 06/29/17 21:23 Pulse 97 H 06/29/17 21:23 Resp 16 06/29/17 21:23 BP 156/82 H 06/29/17 21:23 Pulse Ox 99 06/29/17 21:23 - Labs Result Diagrams: 06/29/17 18:36 06/29/17 18:36 Assessment & Plan - Assessment and Plan (Free Text) Plan: Mr Marques, 77M, with PMH of stage IV mantle cell lymphoma, lung adeno ca s/p wedge resection, CAD s/p stents x 4 on plavix, HTN, HLD, BPH with recurrent UTI , presents to ED with acute abdominal. CT showed free air, likely perforated diverticulitis. Pt underwent emergent exploratory laparotomy with nishant procedure, found to have perforated sigmoid colon. Neuro - Baseline AAO x 3 - intubated after surgery, started propofol gtt. May consider adding fentynl gtt for pain control. - Hold xanax per primary - Nortriptyline 10 daily for mood Pulm - Maintain SPO2 > 92 % - 2 L O2 NC as needed - xopenex 0.63 BID - Montelukast 10mg daily - pending am abg, cxr. Card - Recent stress test earlier this month showed reversible, age-mi-dyrps anterior ischemic defect. EF w/in normal range. RVSP 37. - Hold lasix per primary - Metoprolol 12.5 daily GI GI consult - Dr Casiano Surgery consult - Dr Pabon - NPO; lactate ringers @ 130 - GI ppx - dilaudid 0.5 IVP q3 pRN - zofran 4q4 prn - Protonix IV daily Nephro/Renal Urology consult - Dr He Nephro consult - Dr Raman - Strict i/o - Muir - oxybutinin 5 hs Endo - Accu check q6 Heme/Onc - Patient received his usual dosage of gamma globulin yesterday at Dr. Myers' s office - Pt currently on plavix due to stents which rendered platelet dysfunction. He is getting 1u platelet transfusion - T&C, 2L pRBC on hold - hold ASA, plavix for surgery ID ID consult - Dr Callahan - Pending VBG lactate, blood culture, U/A, urine culture, MRSA screen - Merrem 1g Q12, Vanco Prophylaxis - SCD, protonix s/r/d/w Dr. Trujillo <Rosa Trujillo - Last Filed: 06/30/17 05:30> Meds - Medications Medications: Current Medications Alprazolam (Xanax) 0.25 mg PO BID PRN; Protocol PRN Reason: Anxiety Stop: 07/06/17 19:29 Aspirin (Ecotrin) 81 mg PO DAILY [facility] Clopidogrel Bisulfate (Plavix) 75 mg PO DAILY [facility] Furosemide (Lasix) 20 mg PO DAILY [facility] Hydromorphone HCl (Dilaudid) 0.5 mg IVP Q3H PRN PRN Reason: Pain, Mild (1-3) Hydromorphone HCl (Dilaudid) 0.5 mg IVP Q15M PRN PRN Reason: Pain, moderate (4-7) Stop: 06/30/17 05:48 Meropenem (Merrem Iv 1 Gm Premix) 50 mls @ 100 mls/hr IVPB Q12 ALEX PRN Reason: Protocol Lactated Ringer's (Lactated Ringer's) 1,000 mls @ 130 mls/hr IV .Q7H42M [facility] Sodium Chloride (Sodium Chloride 0.9%) 1,000 mls @ 75 mls/hr IV .[id number] [facility] Stop: 06/30/17 06:01 Propofol (Diprivan) 1,000 mg in 100 mls @ 2.014 mls/hr IV .Q24H PRN; Protocol; 5 MCG/KG/MIN PRN Reason: TITRATE PER MD ORDER Last Titration: 06/30/17 05:24 Dose: 10 mcg/kg/min, 4.028 mls/hr Levalbuterol HCl (Xopenex) 0.63 mg IH BID [facility] Metoprolol Tartrate (Lopressor) 25 mg PO DAILY [facility] Metoprolol Tartrate (Lopressor) 12.5 mg PO DAILY [facility] Last Admin: 06/29/17 21:26 Dose: Not Given Montelukast Sodium (Singulair) 10 mg PO DAILY [facility] Nortriptyline HCl (Pamelor) 10 mg PO DAILY [facility] Ondansetron HCl (Zofran Inj) 4 mg IVP Q4H PRN PRN Reason: Nausea/Vomiting Oxybutynin Chloride (Ditropan Tab) 5 mg PO HS [facility] Pantoprazole Sodium (Protonix Inj) 40 mg IVP DAILY [facility] Results - Vital Signs Recent Vital Signs: Last Vital Signs Temp 98.3 F 06/30/17 04:00 Pulse 105 H 06/30/17 04:00 Resp 20 06/30/17 04:00 BP 112/56 L 06/30/17 04:00 Pulse Ox 100 06/30/17 04:00 - Labs Result Diagrams: 06/29/17 18:36 06/29/17 18:36 Attending/Attestation - Attestation I have personally seen and examined this patient.: Yes I have fully participated in the care of the patient.: Yes I have reviewed all pertinent clinical information: Yes
[2017-06-30] MEDS ORDERED: Midazolam 2 MG/2 ML VIAL ONE (00:51)
[2017-06-30] MEDS ORDERED: Etomidate 20 mg/10ml Inj IV ONE (00:51)
[2017-06-30] MEDS ORDERED: Rocuronium 10 mg/ml (5 ml) ONE (00:52)
[2017-06-30] MEDS ORDERED: Succinylcholine 200 mg/10 ml Inj IV ONE (00:52)
[2017-06-30] MEDS ORDERED: Phenylephrine 10 mg/ml Inj ONE (00:56)
[2017-06-30] MEDS ORDERED: ePHEDrine 50 mg/ml Inj ONE (00:56)
[2017-06-30] MEDS ORDERED: Liquid Adhesive TOP ONE (02:30)
--- NOTE | 2017-06-30 03:31 | PCM.SURG1 ---
Surgeon's Initial Post Op Note - Surgeon's Notes Surgeon: Dr Pabon Road Hogger Operator: Dr Grijalva PGY3 Type of Anesthesia: General Endo Pre-Operative Diagnosis: perforated viscus Operative Findings: perforated sigmoid colon Post-Operative Diagnosis: as above Operation Performed: exploratory laparotomy. Milli's procedure Specimen/Specimens Removed: sigmoid colon Estimated Blood Loss: EBL {In ML}: 300 Blood Products Given: N/A, PRBC, Platlets Drains Used: Ostomy Device Post-Op Condition: Good Date of Surgery/Procedure: 06/30/17 Time of Surgery/Procedure: 03:31
[2017-06-30] MEDS ORDERED: HYDROmorphone 0.5 mg/0.5 ml ISec IVP PRN (03:48)
[2017-06-30] MEDS ORDERED: HYDROmorphone 0.5 mg/0.5 ml ISec IVP ONE (03:50)
[2017-06-30] MEDS ORDERED: HYDROmorphone 0.5 mg/0.5 ml ISec ONE (03:51)
[2017-06-30] MEDS ORDERED: Sodium Chloride 0.9% 1,000 ML IV SCH (04:00)
[2017-06-30] MEDS ORDERED: Propofol 10 mg/ml 1,000 MG/100 ML VIAL IV PRN (04:45)
[2017-06-30] MEDS ORDERED: Propofol 10 mg/ml 1,000 MG/100 ML VIAL ONE (04:50)
[2017-06-30 05:51] LABS: BASO # 0.01 K/mm3 (0.0-2.0); BASO % 0.2 % (0.0-3.0); GRAN # 5.75 (1.4-6.5); GRAN % 89.7 % (50.0-68.0); LYMPH # 0.4 (1.2-3.4); LYMPH % 6.7 % (22.0-35.0); MEAN CELL VOLUME 88.1 fl (80.0-105.0); MEAN CORPUSCULAR HGB CONC 32.9 g/dl (31.0-37.0); MEAN PLATELET VOLUME 9.4 fl (7.0-11.0); MONO # 0.2 (0.1-0.6); MONO % 3.4 % (1.0-6.0); RBC 3.79 10^6/uL (3.5-6.1); RED CELL DISTRIBUTION WIDTH 14.3 % (11.5-14.5); WHITE BLOOD COUNT 6.4 10^3/ul (4.5-11.0)
[2017-06-30 06:02] LABS: ARTERIAL BLOOD GAS HCO3 25.4 mmol/L (21-28); ARTERIAL BLOOD GAS HEMOGLOBIN 11.1 g/dL (11.7-17.4); ARTERIAL BLOOD GAS O2 CAPACITY 15.6 mL/dl (16-24); ARTERIAL BLOOD GAS O2 CONTENT 15.6 ML/dl (15-23); ARTERIAL BLOOD GAS O2 SAT 99.7 % (95-98); ARTERIAL BLOOD GAS PCO2 43 mm/Hg (35-45); ARTERIAL BLOOD GAS PH 7.38 (7.35-7.45); ARTERIAL BLOOD GAS TCO2 26.7 mmol.L (22-28)
[2017-06-30 06:21] LABS: ALB/GLOB RATIO 1.1 (1.1-1.8); ALBUMIN 3.2 g/dL (3.0-4.8); ALT/SGPT 28 U/L (7-56); AST/SGOT 26 U/L (17-59); BLOOD UREA NITROGEN 23 mg/dL (7-21); CALCIUM 7.8 mg/dL (8.4-10.5); GFR AFRICAN-AMERICAN > 60; GFR NON-AFRICAN AMERICAN > 60
--- NOTE | 2017-06-30 07:03 | HP ---
DATE OF EXAM: 06/29/2017 This is Jakub Marques's admission history and physical for observation on medical floor. For Dr. Myers. CHIEF COMPLAINT: Abdominal, pelvic pain. 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 Patient did have IV gamma globulin, given for his hypogammaglobulinemia mantle cell lymphoma, which was given yesterday with good effect. He was with no complaint yesterday, even earlier today, patient was without complaint. However, the pain developed with significant 9/10 discomfort to the mid lower abdomen with no radiation at that time. With this, patient was seen in the emergency room with the flat plate of the abdomen done along with placement of Muir catheter with narcotic analgesics given as per emergency room physician with minimal effect. The patient did have a past history of something similar happening for which Dr. He, his urologist had treated him and we will ask for his input this time also. However, we are concerned event with ischemic possibility to be ruled out with other tests pending at present. ALLERGIES: PATIENT HAS MULTIPLE ALLERGIES TO NUMEROUS MEDICATIONS INCLUDING Z-LAYTON, ERYTHROMYCIN, WHICH CAUSE ANGIOEDEMA; PENICILLIN, WHICH CAUSE ANAPHYLAXIS; KEFLEX, WHICH CAUSES RASH; GABAPENTIN, PREGABALIN AND SULFA WERE CAUSING RASH; NITRO PASTE CAUSING DIZZINESS AND HYPERTENSION; IMBRUVICA CAUSING FEVER. MEDICATIONS: Reviewed to include Lipitor, Xanax, aspirin, Xopenex, Tylenol, Lopressor, Protonix, calcium carbonate, vitamin D, magnesium, Pamelor, Ranexa, Rapaflo, Zetia, Xopenex, Singulair, oxybutynin, Lasix, hydroxyzine and Plavix along with Zofran p.r.n. PAST MEDICAL HISTORY: Significant for stage IV mantle cell lymphoma, history of lung cancer, status post wedge resection, coronary artery disease, coronary artery stents, diabetes mellitus, which has been monitored dietary blanco at present, history of hyperlipidemia, recurrent urinary tract infections, BPH, angioplasty with 4 stents. FAMILY HISTORY AND SOCIAL HISTORY: Nonsmoker, non-ethanolic. Otherwise noncontributory. REVIEW OF SYSTEMS: A 12-point review of system was done, which was negative to questioning except for items mentioned in history of present illness. PHYSICAL EXAMINATION: VITAL SIGNS: Today include temperature 98.3, pulse 74, respirations 18, blood pressure 108/57, pulse ox 100%. HEENT: Unremarkable. NECK: Supple. HEART: Regular rate, occasional ectopic beat. LUNGS: Clear. ABDOMEN: Distended with tenderness to gentle palpation. EXTREMITIES: No edema. SKIN: Warm and dry. NEUROLOGIC: Awake, alert and oriented. LABORATORY DATA: The patient's labs were done to include white blood cell count 6, hemoglobin 11.6, hematocrit 35.1, platelet count of 172,000. Chem metabolic panel showing a BUN of 29, creatinine of 1.2, non fasting glucose of 196, otherwise normal chem metabolic panel. His INR is 1 with PTT of 44.1. His other testing for this patient included a chest x-ray, which showed stable cardiomegaly with MediPort placed in the right chest. No acute infiltrate bilaterally. No pleural effusion. His flat plate of the abdomen was done, it was read as nonspecific bowel gas pattern, no prominent free intraperitoneal gas identified. ASSESSMENT: For this patient is that of acute abdominal pain; rule out ischemic mesenteric changes versus urinary retention; atherosclerotic cardiovascular disease with coronary stents; diabetes, diet controlled; hypertension; mantle cell lymphoma stage IV; hypogammaglobulinemia; chronic obstructive pulmonary disease; benign prostatic hypertrophy. PLAN: For this patient, after conversation with Dr. Myers is to admit to observation. We will check his CT scan of the abdomen and pelvis with IV contrast. We will continue his present medical regimen with consult with Dr. Casiano, Gastrointestinal and Dr. He, Urology with further recommendations as indicated. We will monitor clinically with labs. ADDENDUM: CT scan + for perforation ?tic for STAT surgery consult Dr Paobn w surgery RENE as indicated, consult Renal Dr Raman, and ID Dr Pate , F/U post op to ICU. Pts family at bedside aware of above developments This is a complex patient with a comprehensive medically necessary and appropriate visit carried out in excess of 1 hour [id number] time with the patient, his was a physician, also conversation with Dr. Casiano and Dr. He on his behalf in addition to evaluating his previous records and conversation with Dr. Huff, emergency room physician. Prognosis for this patient is guarded. We will monitor clinically with labs. Ted Santoyo MD MTDEmile
--- NOTE | 2017-06-30 07:14 | CP.PCM.PN ---
Subjective - Date & Time of Evaluation Date of Evaluation: 06/30/17 Time of Evaluation: 07:13 - Subjective Subjective: General Surgery: Dr Pabon Pt S&E in ICU. He is POD#0 s/p Milli's procedure for perforated diverticulitis. Surgery finished around 330AM. Since that time pt has been hemodynamically stable. HAs made ~150cc urine. 200cc out from fang drains. Pt is awake and alert, intubated. Requested sedation be increased for now until pt being evaluated for extubation. Pt admits to having abdominal pain currently. Objective - Vital Signs/Intake and Output Vital Signs (last 24 hours): Temp Pulse Resp BP Pulse Ox 98.3 F 105 H 20 112/56 L 100 06/30/17 04:00 06/30/17 04:00 06/30/17 04:00 06/30/17 04:00 06/30/17 04:00 Intake and Output: 06/30/17 06/30/17 06:59 18:59 Intake Total 5 Balance 5 - Medications Medications: Current Medications Alprazolam (Xanax) 0.25 mg PO BID PRN; Protocol PRN Reason: Anxiety Stop: 07/06/17 19:29 Aspirin (Ecotrin) 81 mg PO DAILY [facility] Clopidogrel Bisulfate (Plavix) 75 mg PO DAILY [facility] Furosemide (Lasix) 20 mg PO DAILY [facility] Hydromorphone HCl (Dilaudid) 0.5 mg IVP Q3H PRN PRN Reason: Pain, Mild (1-3) Meropenem (Merrem Iv 1 Gm Premix) 50 mls @ 100 mls/hr IVPB Q12 [facility] PRN Reason: Protocol Lactated Ringer's (Lactated Ringer's) 1,000 mls @ 130 mls/hr IV .Q7H42M [facility] Propofol (Diprivan) 1,000 mg in 100 mls @ 2.014 mls/hr IV .Q24H PRN; Protocol; 5 MCG/KG/MIN PRN Reason: TITRATE PER MD ORDER Last Titration: 06/30/17 05:24 Dose: 10 mcg/kg/min, 4.028 mls/hr Levalbuterol HCl (Xopenex) 0.63 mg IH BID [facility] Metoprolol Tartrate (Lopressor) 25 mg PO DAILY [facility] Metoprolol Tartrate (Lopressor) 12.5 mg PO DAILY [facility] Last Admin: 06/29/17 21:26 Dose: Not Given Montelukast Sodium (Singulair) 10 mg PO DAILY [facility] Nortriptyline HCl (Pamelor) 10 mg PO DAILY [facility] Ondansetron HCl (Zofran Inj) 4 mg IVP Q4H PRN PRN Reason: Nausea/Vomiting Oxybutynin Chloride (Ditropan Tab) 5 mg PO HS [facility] Pantoprazole Sodium (Protonix Inj) 40 mg IVP DAILY [facility] - Labs Labs: 06/30/17 05:30 06/30/17 05:30 PT 11.4 SECONDS (9.4-12.5) 06/29/17 18:36 INR 1.00 (0.93-1.08) 06/29/17 18:36 APTT 44.1 Seconds (25.1-36.5) H 06/29/17 18:36 - Constitutional Appears: Non-toxic - ENT Exam ENT Exam: Mucous Membranes Dry - Respiratory Exam Respiratory Exam: absent: Accessory Muscle Use, Respiratory Distress - Cardiovascular Exam Cardiovascular Exam: Tachycardia (100-105), REGULAR RHYTHM - GI/Abdominal Exam GI & Abdominal Exam: Distended, Soft, Tenderness (post-op and appropriate). absent: Firm, Guarding (resolved), Rigid, Rebound Additional comments: ostomy pink and viable, no output yet - Neurological Exam Neurological Exam: Awake - Psychiatric Exam Psychiatric exam: Agitated, Anxious - Skin Skin Exam: Normal Color Assessment and Plan - Assessment and Plan (Free Text) Assessment: 77M POD#0 s/p Milli's procedure for perforated diverticulitis Plan: cont IV abx HgB currently stable s/p 1 unit pRBC and 2 unit PLT will repeat HgB ~12 noon cont to monitor blakes, hemodynamics and urine output for any sign of bleeding or under resuscitation cont SCDs - would hold on DVT prophylaxis for now extubation at discretion of ICU team NGT remains in for at least 48 hours will continue to monitor closely will d/w Dr Cm Grijalva, PGY3
[2017-06-30] MEDS ORDERED: Vancomycin 1gm in NS 250ml 1 GM/250 ML BAG IVPB STA (07:55)
[2017-06-30] MEDS ORDERED: Levalbuterol 0.63 MG/3 ML Inhal Soln UD IH SCH (08:00)
[2017-06-30] MEDS: Lactated Ringer's 1,000 ML IV SCH ×3 (08:15→21:56)
[2017-06-30] MEDS: HYDROmorphone 0.5 mg/0.5 ml ISec IVP PRN ×4 (08:24→21:46)
--- NOTE | 2017-06-30 09:24 | RAD ---
HISTORY: intubated COMPARISON: Yesterday FINDINGS: LUNGS: There is a new endotracheal tube with its tip in the mid trachea. There is an NG tube also noted, new from prior study and is seen in the stomach. A catheter is unchanged. No new appreciable lung infiltrate is noted. Right hemidiaphragm is once again eventration and/or elevated. PLEURA: No significant pleural effusion identified, no pneumothorax apparent. CARDIOVASCULAR: Unchanged OSSEOUS STRUCTURES: No significant abnormalities. VISUALIZED UPPER ABDOMEN: Normal. OTHER FINDINGS: None. IMPRESSION: Status post intubation. No new infiltrate. Low lung volumes.
[2017-06-30] MEDS ORDERED: Pantoprazole 40 mg EC Tab PO SCH (10:00)
--- NOTE | 2017-06-30 10:38 | CP.PCM.CON ---
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 There was no note of fevers. In the ED, CT A/P was done which showed probable sigmoid colon perforation with probable diverticulitis and the patient was immediately started on broad spectrum antibiotics and emergently went for surgery, with ex-lap, sigmoid resection and colostomy done. He is now in the ICU still intubated and sedated. Infectious diseases consult is requested to further evaluate and manage. Review of Systems - Review of Systems Systems not reviewed;Unavailable: Intubated Past Patient History - Infectious Disease Hx of Infectious Diseases: None - Tetanus Immunizations Tetanus Immunization: Unknown - Past Medical History & Family History Past Medical History?: Yes - Past Social History Smoking Status: Never Smoked - CARDIAC Hx Hypertension: Yes - PULMONARY Hx Respiratory Disorders: Yes Hx Asthma: Yes Hx Bronchitis: Yes Hx Pneumonia: Yes - NEUROLOGICAL Hx Neurological Disorder: Yes - HEENT Hx HEENT Problems: Yes (wears glasses) Hx Deafness: Yes ([place], b/l hearing aids) - RENAL Hx Chronic Kidney Disease: No - ENDOCRINE/METABOLIC Hx Endocrine Disorders: Yes Hx Diabetes Mellitus Type 2: Yes - HEMATOLOGICAL/ONCOLOGICAL Hx Blood Disorders: Yes Hx Anemia: Yes Hx Cancer: Yes (mantle cell lymphoma "active") - INTEGUMENTARY Hx Dermatological Problems: No - MUSCULOSKELETAL/RHEUMATOLOGICAL Hx Falls: Yes - GASTROINTESTINAL Hx Gastrointestinal Disorders: No - GENITOURINARY/GYNECOLOGICAL Hx Genitourinary Disorders: Yes Hx Prostate Problems: Yes (bph, prostectomy) Hx Urinary Tract Infection: Yes - PSYCHIATRIC Hx Psychophysiologic Disorder: No Hx Substance Use: No - SURGICAL HISTORY Hx Cardiac Catheterization: Yes (angioplasty 4 stents) Hx Coronary Stent: Yes Hx Orthopedic Surgery: Yes (right thumb) - ANESTHESIA Hx Anesthesia: Yes Hx Anesthesia Reactions: No Hx Malignant Hyperthermia: No Meds Allergies/Adverse Reactions: Allergies Allergy/AdvReac Type Severity Reaction Status Date / Time azithromycin Allergy Severe ANGIOEDEMA Verified 06/18/17 19:13 erythromycin base Allergy Severe ANGIOEDEMA Verified 06/18/17 19:13 Penicillins Allergy Severe ANAPHYLAXIS Verified 06/18/17 19:13 cephalexin monohydrate Allergy Intermediate RASH Verified 06/18/17 19:13 [From Keflex] gabapentin Allergy Intermediate RASH Verified 06/18/17 19:13 pregabalin Allergy Intermediate RASH Verified 06/18/17 19:13 Sulfa (Sulfonamide Allergy Intermediate RASH Verified 06/18/17 19:13 Antibiotics) nitro paste Allergy Intermediate DIZZINESS/H Uncoded 06/18/17 19:13 YPOTENSION Imbrovica Allergy FEVER Uncoded 06/18/17 19:13 - Medications Medications: Current Medications Alprazolam (Xanax) 0.25 mg PO BID PRN; Protocol PRN Reason: Anxiety Stop: 07/06/17 19:29 Aspirin (Ecotrin) 81 mg PO DAILY [facility] Clopidogrel Bisulfate (Plavix) 75 mg PO DAILY [facility] Furosemide (Lasix) 20 mg PO DAILY [facility] Hydromorphone HCl (Dilaudid) 0.5 mg IVP Q3H PRN PRN Reason: Pain, Mild (1-3) Meropenem (Merrem Iv 1 Gm Premix) 50 mls @ 100 mls/hr IVPB STAT STA PRN Reason: Protocol Stop: 06/29/17 22:03 Vancomycin HCl (Vancomycin 1gm) 1 gm in 250 mls @ 167 mls/hr IVPB STAT STA PRN Reason: Protocol Stop: 06/29/17 22:57 Meropenem (Merrem Iv 1 Gm Premix) 50 mls @ 100 mls/hr IVPB Q12 [facility] PRN Reason: Protocol Levalbuterol HCl (Xopenex) 0.63 mg IH BID [facility] Metoprolol Tartrate (Lopressor) 25 mg PO DAILY [facility] Metoprolol Tartrate (Lopressor) 12.5 mg PO DAILY [facility] Last Admin: 06/29/17 21:26 Dose: Not Given Montelukast Sodium (Singulair) 10 mg PO DAILY [facility] Nortriptyline HCl (Pamelor) 10 mg PO DAILY [facility] Ondansetron HCl (Zofran Inj) 4 mg IVP Q4H PRN PRN Reason: Nausea/Vomiting Oxybutynin Chloride (Ditropan Tab) 5 mg PO HS [facility] Pantoprazole Sodium (Protonix Ec Tab) 40 mg PO DAILY [facility] Physical Exam - Constitutional Appears: Other (intubated, lightly sedated) - Head Exam Head Exam: NORMAL INSPECTION - ENT Exam Additional comments: ET tube in place - Neck Exam Neck exam: Negative for: Meningismus - Respiratory Exam Respiratory Exam: Decreased Breath Sounds - Cardiovascular Exam Cardiovascular Exam: +S1, +S2 - GI/Abdominal Exam GI & Abdominal Exam: Soft. absent: Tenderness Additional comments: left sided colostomy in place, right sided KERI drain in place with serosanguinous fluid Results - Vital Signs Recent Vital Signs: Last Vital Signs Temp 97.8 F 06/29/17 21:23 Pulse 97 H 06/29/17 21:23 Resp 16 06/29/17 21:23 BP 156/82 H 06/29/17 21:23 Pulse Ox 99 06/29/17 21:23 - Labs Result Diagrams: 06/30/17 05:30 06/30/17 05:30 Assessment & Plan - Assessment and Plan (Free Text) Plan: Assessment Severe sepsis with acute renal failure and ventilator-dependent respiratory failure due to acute perforated sigmoid colon with associated diverticulitis S/ P exploratory laparotomy, sigmoidectomy and colostomy POD #1 history of sepsis due to acute bronchitis, with systemic viral illness history of UTI with E. 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
[2017-06-30] MEDS: Meropenem IV 1 gm in NS 50 ML IVPB SCH ×2 (10:41→21:53)
--- NOTE | 2017-06-30 11:03 | CT ---
PROCEDURE: CT Abdomen and Pelvis with contrast HISTORY: r/o obstruction, r/o ischemia, severe lower abd pa COMPARISON: 07/03/2016 TECHNIQUE: Contrast dose: 100 cc Radiation dose: Total exam DLP = 785 mGy-cm. This CT exam was performed using one or more of the following dose reduction techniques: Automated exposure control, adjustment of the mA and/or kV according to patient size, and/or use of iterative reconstruction technique. FINDINGS: LOWER THORAX: Mild subsegmental atelectasis and/or scarring is seen at the right lung base. No pleural effusion is seen. Minimal atelectasis is seen at the left lung base and inferior lingula. No pneumothorax is seen. Visualized esophagus is unremarkable. Visualized aorta shows mild atherosclerotic change. LIVER: Liver is mildly fatty infiltrated, without evidence of focal mass or intrahepatic ductal dilatation. GALLBLADDER AND BILE DUCTS: Unremarkable. PANCREAS: Unremarkable. No gross lesion or ductal dilatation. SPLEEN: Unremarkable. ADRENALS: Unremarkable. No mass. KIDNEYS AND URETERS: Kidneys show no evidence of mass or perinephric change. A few small cysts are noted. Slightly prominent left extrarenal pelvis is noted is suspected without significant ureteral dilatation. Right kidney shows no evidence of calyceal dilatation or pelvic dilatation. Right ureter is unremarkable. VASCULATURE: There is atherosclerotic change of the aorta without Scribe appendix should Aneurysmal dilatation. BOWEL: There is evidence of colonic wall thickening and pericolonic inflammatory change involving the sigmoid colon consistent with diverticulitis. Adjacent to this region is some mild dilated small bowel with some adjacent fluid suggestive of ileus. There are few tiny loculated air bubble seen adjacent to the sigmoid colon inflammatory change suggestive of micro perforation. No focal fluid collection to suggest abscess is noted. Terminal ileum is unremarkable. Cecum is within normal limits. APPENDIX: Normal appendix. PERITONEUM: There is free intraperitoneal air identified underneath right hemidiaphragm and adjacent to the liver with a smaller amount of free intraperitoneal air are scattered in the anterior upper abdomen and a greater amount seen in the mid anterior abdomen consistent with perforated viscus. Small amounts of loculated air or small amount of free air is seen adjacent to sigmoid colon in the area of previously described diverticulitis. There is additionally mild areas of ascites identified in the lower abdomen adjacent to some mildly dilated small bowel loops. LYMPH NODES: Unremarkable. No enlarged lymph nodes. BLADDER: There is a Muir catheter seen in the bladder. Left anterior aspect of the bladder extends towards left inguinal region and appears to be noted within a small left inguinal hernia. No bladder wall thickening is seen this region. No definite fistula from the sigmoid colon to the bladder is seen. REPRODUCTIVE: Unremarkable. BONES: Degenerative changes are seen in the spine without lytic process. OTHER FINDINGS: No presacral masses are seen. Visualized stomach is distended with debris but without wall thickening. Duodenum is otherwise unremarkable. IMPRESSION: Free intraperitoneal air consistent with perforated viscus. There is colonic wall thickening and pericolonic inflammatory changes in the region of the sigmoid colon with a small amount of adjacent air bubbles consistent with perforated diverticulitis. Ascites is seen elsewhere in the abdomen. There are dilated small bowel loops seen in the lower abdomen and pelvis suggestive of ileus. Small underlying enteritis and/or scheme EIA cannot be excluded given the free air. Perforated viscus diagnosis and probable diverticulitis agrees with preliminary report, however the small bowel dilatation and adjacent fluid were not mentioned in the preliminary report. Muir catheter within the bladder. Left anterior aspect of the bladder extends into a left inguinal hernia. This was also not mentioned on the preliminary report.
--- NOTE | 2017-06-30 11:20 | CARD ---
APPROVED REPORT EKG Measurement Heart [id number] IN [id number] <Conclusion> Sinus bradycardia T wave abnormality, consider lateral ischemia Abnormal ECG
[2017-06-30 12:14] LABS: HEMOGLOBIN 12.3 g/dL (14.0-18.0); MEAN CELL VOLUME 88.1 fl (80.0-105.0); MEAN CORPUSCULAR HEMOGLOBIN 29.2 pg (25.0-35.0); MEAN CORPUSCULAR HGB CONC 33.2 g/dl (31.0-37.0); MEAN PLATELET VOLUME 10.3 fl (7.0-11.0); RBC 4.21 10^6/uL (3.5-6.1); RED CELL DISTRIBUTION WIDTH 14.7 % (11.5-14.5)
--- NOTE | 2017-06-30 12:21 | CP.PCM.CON ---
History of Present Illness - History of Present Illness History of Present Illness: Seen and examined at the bedside earlier today. Chart was reviewed. Request for GI consult is for abdomen pain. HPI: This is a 77-year-old male with a past medical history of stage IV mantle cell lymphoma, lung adenocarcinoma status post wedge resection, CAD with stents 4. Came to the emergency room with complaints of abdominal pain that started yesterday afternoon. The patient reported as severe discomfort at times radiating to the lower back. The patient abdominal pain initially started in the lower abdomen and slowly became diffuse throughout the day. Patient did complain of nausea, chills but no vomiting or fevers. Patient was reported to have a bowel movement earlier in the day but complaining of difficulty with defecation. No reports of any bleeding. In the emergency room the patient had a CT scan of the abdomen and pelvis which showed free air likely perforated diverticulitis. The patient went for emergency exploratory laparotomy with Milli procedure. Currently the patient is intubated and sedated. History was obtained from medical chart and an nursing staff/medical team. Past medical history: Stage IV mantle cell lymphoma, lung cancer status post wedge resection, CAD status post stents 4, hyperlipidemia, hypertension, BPH Past surgical history: Prostatectomy, wedge resection, angioplasty 4. Allergies: Medications: Reviewed as per MAR Family history: Noncontributory at this time Social history: No HX etoh/tobacco use/ illicit drugs ROS: Systems unable to be reviewed, patient is currently intubated and sedated, see HPI. Past Patient History - Infectious Disease Hx of Infectious Diseases: None - Tetanus Immunizations Tetanus Immunization: Unknown - Past Medical History & Family History Past Medical History?: Yes - Past Social History Smoking Status: Never Smoked - CARDIAC Hx Hypertension: Yes - PULMONARY Hx Respiratory Disorders: Yes Hx Asthma: Yes Hx Bronchitis: Yes Hx Pneumonia: Yes - NEUROLOGICAL Hx Neurological Disorder: Yes - HEENT Hx HEENT Problems: Yes (wears glasses) Hx Deafness: Yes ([place], b/l hearing aids) - RENAL Hx Chronic Kidney Disease: No - ENDOCRINE/METABOLIC Hx Endocrine Disorders: Yes Hx Diabetes Mellitus Type 2: Yes - HEMATOLOGICAL/ONCOLOGICAL Hx Blood Disorders: Yes Hx Anemia: Yes Hx Cancer: Yes (mantle cell lymphoma "active") - INTEGUMENTARY Hx Dermatological Problems: No - MUSCULOSKELETAL/RHEUMATOLOGICAL Hx Falls: Yes - GASTROINTESTINAL Hx Gastrointestinal Disorders: No - GENITOURINARY/GYNECOLOGICAL Hx Genitourinary Disorders: Yes Hx Prostate Problems: Yes (bph, prostectomy) Hx Urinary Tract Infection: Yes - PSYCHIATRIC Hx Psychophysiologic Disorder: No Hx Substance Use: No - SURGICAL HISTORY Hx Cardiac Catheterization: Yes (angioplasty 4 stents) Hx Coronary Stent: Yes Hx Orthopedic Surgery: Yes (right thumb) - ANESTHESIA Hx Anesthesia: Yes Hx Anesthesia Reactions: No Hx Malignant Hyperthermia: No Meds Allergies/Adverse Reactions: Allergies Allergy/AdvReac Type Severity Reaction Status Date / Time azithromycin Allergy Severe ANGIOEDEMA Verified 06/18/17 19:13 erythromycin base Allergy Severe ANGIOEDEMA Verified 06/18/17 19:13 Penicillins Allergy Severe ANAPHYLAXIS Verified 06/18/17 19:13 cephalexin monohydrate Allergy Intermediate RASH Verified 06/18/17 19:13 [From Keflex] gabapentin Allergy Intermediate RASH Verified 06/18/17 19:13 pregabalin Allergy Intermediate RASH Verified 06/18/17 19:13 Sulfa (Sulfonamide Allergy Intermediate RASH Verified 06/18/17 19:13 Antibiotics) nitro paste Allergy Intermediate DIZZINESS/H Uncoded 06/18/17 19:13 YPOTENSION Imbrovica Allergy FEVER Uncoded 06/18/17 19:13 - Medications Medications: Current Medications Alprazolam (Xanax) 0.25 mg PO BID PRN; Protocol PRN Reason: Anxiety Stop: 07/06/17 19:29 Aspirin (Ecotrin) 81 mg PO DAILY [facility] Clopidogrel Bisulfate (Plavix) 75 mg PO DAILY [facility] Furosemide (Lasix) 20 mg PO DAILY [facility] Heparin Sodium (Porcine) (Heparin) 5,000 units SC Q8 [facility]LEX PRN Reason: Protocol Last Admin: 06/30/17 10:39 Dose: 5,000 units Hydromorphone HCl (Dilaudid) 0.5 mg IVP Q3H PRN PRN Reason: Pain, Mild (1-3) Last Admin: 06/30/17 11:41 Dose: 0.5 mg Meropenem (Merrem Iv 1 Gm Premix) 50 mls @ 100 mls/hr IVPB Q12 [facility] PRN Reason: Protocol Last Admin: 06/30/17 10:41 Dose: 100 mls/hr Lactated Ringer's (Lactated Ringer's) 1,000 mls @ 130 mls/hr IV .Q7H42M [facility] Last Admin: 06/30/17 08:15 Dose: 130 mls/hr Propofol (Diprivan) 1,000 mg in 100 mls @ 2.014 mls/hr IV .Q24H PRN; Protocol; 5 MCG/KG/MIN PRN Reason: TITRATE PER MD ORDER Last Titration: 06/30/17 07:59 Dose: 0 mcg/kg/min, 0 mls/hr Levalbuterol HCl (Xopenex) 0.63 mg 0800,1999 [facility] Metoprolol Tartrate (Lopressor) 25 mg PO DAILY [facility] Metoprolol Tartrate (Lopressor) 12.5 mg PO DAILY [facility] Last Admin: 06/30/17 10:31 Dose: Not Given Montelukast Sodium (Singulair) 10 mg PO DAILY [facility] Last Admin: 06/30/17 10:32 Dose: Not Given Nortriptyline HCl (Pamelor) 10 mg PO DAILY [facility] Last Admin: 06/30/17 10:32 Dose: Not Given Ondansetron HCl (Zofran Inj) 4 mg IVP Q4H PRN PRN Reason: Nausea/Vomiting Oxybutynin Chloride (Ditropan Tab) 5 mg PO [facility] Pantoprazole Sodium (Protonix Inj) 40 mg IVP DAILY [facility] Last Admin: 06/30/17 10:40 Dose: 40 mg Physical Exam - Constitutional Appears: Non-toxic (intubated/sedated) - Eye Exam Eye Exam: Normal appearance. absent: Scleral icterus - ENT Exam ENT Exam: Mucous Membranes Moist - Neck Exam Neck exam: Positive for: Normal Inspection - Respiratory Exam Respiratory Exam: absent: Respiratory Distress (intubated) - Cardiovascular Exam Cardiovascular Exam: +S1, +S2 - GI/Abdominal Exam GI & Abdominal Exam: Soft Additional comments: colostomy present, stoma pink, KERI drain serosanguenous - Extremities Exam Extremities exam: Negative for: pedal edema - Neurological Exam Neurological exam: Altered (sedated) - Skin Skin Exam: Dry, Warm Results - Vital Signs Recent Vital Signs: Last Vital Signs Temp 98.3 F 06/30/17 04:00 Pulse 101 H 06/30/17 12:04 Resp 15 06/30/17 11:00 BP 126/78 06/30/17 11:00 Pulse Ox 99 06/30/17 12:04 - Labs Result Diagrams: 07/02/17 06:30 07/02/17 06:30 Labs: Laboratory Results - last 24 hr 06/30/17 06/30/17 06/30/17 05:30 05:30 05:30 WBC 6.4 RBC 3.79 Hgb 11.0 L Hct 33.4 L MCV 88.1 MCH 29.0 MCHC 32.9 RDW 14.3 Plt Count 204 MPV 9.4 Gran % 89.7 H Lymph % (Auto) 6.7 L [place] % (Auto) 3.4 Eos % (Auto) 0.0 L Baso % (Auto) 0.2 Gran # 5.75 Lymph # (Auto) 0.4 L [place] # (Auto) 0.2 Eos # (Auto) 0.0 Baso # (Auto) 0.01 pCO2 43 pO2 206.0 H HCO3 25.4 ABG pH 7.38 ABG Total CO2 26.7 ABG O2 Saturation 99.7 H ABG O2 Content 15.6 ABG Base Excess 0.1 ABG Hemoglobin 11.1 L ABG Carboxyhemoglobin 1.6 H POC ABG HHb (Measured) 0.3 ABG Methemoglobin 0.9 ABG O2 Capacity 15.6 L Hgb O2 Saturation 97.2 FiO2 50.0 Sodium 143 Potassium 3.9 Chloride 104 Carbon Dioxide 25 Anion Gap 17 BUN 23 H Creatinine 1.1 Est GFR ( Amer) > 60 Est GFR (Non-Af Amer) > 60 POC Glucose (mg/dL) Random Glucose 229 H Calcium 7.8 L Total Bilirubin 1.3 AST 26 ALT 28 Alkaline Phosphatase 67 Total Protein 6.2 Albumin 3.2 Globulin 3.0 Albumin/Globulin Ratio 1.1 06/30/17 06/30/17 07:14 11:22 WBC RBC Hgb Hct MCV MCH MCHC RDW Plt Count MPV Gran % Lymph % (Auto) [place] % (Auto) Eos % (Auto) Baso % (Auto) Gran # Lymph # (Auto) [place] # (Auto) Eos # (Auto) Baso # (Auto) pCO2 pO2 HCO3 ABG pH ABG Total CO2 ABG O2 Saturation ABG O2 Content ABG Base Excess ABG Hemoglobin ABG Carboxyhemoglobin POC ABG HHb (Measured) ABG Methemoglobin ABG O2 Capacity Hgb O2 Saturation FiO2 Sodium Potassium Chloride Carbon Dioxide Anion Gap BUN Creatinine Est GFR ( Amer) Est GFR (Non-Af Amer) POC Glucose (mg/dL) 182 H 180 H Random Glucose Calcium Total Bilirubin AST ALT Alkaline Phosphatase Total Protein Albumin Globulin Albumin/Globulin Ratio Assessment & Plan - Assessment and Plan (Free Text) Assessment: Assessment: Acute abdomen status post CT scan found to have free air, likely perforated diverticulitis Status post emergency exploratory laparotomy with Rob's procedure History of stage IV mantle cell lymphoma History of lung cancer status post wedge resection Coronary artery disease status post stents 4 Plan: NPO, IVF Continue IV antibiotics Monitor H&H and for overt GI bleed GI prophylaxis DVT prophylaxis As per surgery and ICU team Seen and discussed with Dr. Casiano.
[2017-06-30 12:30] LABS: INR 1.19 (0.93-1.08); PARTIAL THROMBOPLASTIN TIME 28.5 Seconds (25.1-36.5); PROTHROMBIN TIME 13.7 SECONDS (9.4-12.5)
[2017-06-30] MEDS ORDERED: Ranolazine [Ranexa] 500 MG PO SCH (18:00)
--- NOTE | 2017-06-30 18:12 | PN ---
DATE: 06/30/2017 This is [facility]'s [facility] visit in the intensive care unit. For Dr. Myers. SUBJECTIVE: The patient is a 77-year-old male, now seen in intensive care unit, intubated, failing weaning attempts earlier today, status post emergency surgery last night for a perforated diverticulum with perforated sigmoid colon with an exploratory laparotomy and Milli procedure done by Dr. Pabon. The patient remains intubated. He opens his eyes to command with dressings dry and intact to the abdomen, and a viable colostomy in the lower left quadrant. The patient originally was describing significant pain, the sudden onset, for which workup was done with findings described as above. At present, he is resting with analgesics helping his pain and antibiotics continuing as per Dr. Marshall, Infectious Disease resourcing consultant. PHYSICAL EXAMINATION: VITAL SIGNS: Temperature 98.3, pulse 100, respirations 15, blood pressure 126/78, pulse ox is 100%. HEENT: He is intubated, eyes open to command. NECK: No nodes. HEART: Tachy rate, regular rhythm. LUNGS: Clear. ABDOMEN: Viable colostomy, left lower quadrant. Dressing otherwise dry and intact. EXTREMITIES: Move freely, however, they all restrained. His upper extremities are restrained. NEUROLOGIC: Opens his eyes to command. LABORATORY DATA: The patient's labs were done. White blood cell count of 9, hemoglobin of 12.3, hematocrit of 37.1, and platelets count of 196,000. His chem metabolic panel showed a BUN of 22 with a creatinine of 1.1. Nonfasting glucose of 182. Calcium of 7.8. The patient's other testing included a chest x-ray done earlier today, which showed status post intubation, no new infiltrates, low lung volume. His operative report was read as perforated viscus, perforated sigmoid colon with exploratory laparotomy and Milli procedure. His CT scan of the abdomen and pelvis done yesterday was shown to have free intraperitoneal and air consistent with perforated viscus. There were chronic wall thickening and pericolonic inflammatory changes in the region of the sigmoid colon, small amount of adjacent air bubbles consistent with perforated diverticulitis. Ascites were seen elsewhere in the abdomen. There was dilated small bowel loop seen in the lower abdomen and pelvis suggestive of ileus, small underlying enteritis, and , cannot be fluid given the free air perforated viscus diagnosis and probable diverticulitis, agrees with preliminary report. However, there was small bowel dilatation and adjacent fluid not mentioned. Muir catheter in the bladder about the anterior aspect of the bladder, extensive left inguinal hernia. This was also not mentioned in the preliminary report. ASSESSMENT: Postopoperative day #1 for perforated viscus with Milli procedure with colostomy on an emergent basis. 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 He is presently intubated with weaning unsuccessful earlier today. The patient is also known to suffer from atherosclerotic cardiovascular disease with coronary stent, diabetes mellitus, hypertension, hypogammaglobulinemia, chronic obstructive pulmonary disease, and benign prostatic hypertrophy. PLAN: The plan for this patient after conversation with Dr. Myers is to continue present medical regimen as per ICU protocols. We will ask for a consult with Dr. Duffy, Pulmonary for the patient's ventilatory settings. We will also ask for a consult with Dr. Raman, Renal for his fluid balance and with Dr. Hill, his water and sewer systems superintendent due to the stress of the patient's procedure possibly affecting his heart. He will continue his IV antibiotics with Dr. Marshall and Dr. Callahan following in that respect. The patient was transfused 1 unit of packed red blood cells with 3 units on hold. He did receive 2 units of platelets at the time of surgery. We will monitor his labs and his testing. His all medications have been put on hold for the interim. This is a complex patient with a comprehensive medically necessary and appropriate visit carried out in excess of 40 minutes [id number] time, also with the findings as discussed with consultants as listed above with prognosis for this patient guarded. We will monitor clinically with labs. Ted Santoyo MD
[2017-06-30] MEDS: Insulin Reg-LOW-Coverage SC SCH (18:22)
--- NOTE | 2017-06-30 19:51 | CON ---
DATE: 06/30/2017 HISTORY OF PRESENT ILLNESS: This is a 77-year-old gentleman with history of stage IV mantle cell lymphoma, history of lung cancer, and coronary artery disease with stents placed earlier, who presented to [facility] with severe abdominal pain of sudden onset, acute, sharp, and radiating to the back. Of note, the patient received IVIG yesterday for his lymphoma. There was no alleviating or aggravating factors. The pain was constant. Subsequent CAT scan of the abdomen and pelvis revealed viscous perforation and the patient was emergently taken to OR where Milli procedure was performed. No nausea, no vomiting, no diarrhea, no constipation. No fever, no chills, no sweats. ALLERGIES: THE PATIENT HAS MULTIPLE ALLERGIES TO NUMEROUS MEDICATIONS, AZITHROMYCIN, ERYTHROMYCIN, PENICILLIN, GABAPENTIN, PREGABALIN, SULFA DRUG, NITRO PASTE, IMBRUVICA, CEPHALEXIN. PAST MEDICAL HISTORY: Stage IV mantle cell lymphoma, lung cancer, status post wedge resection, coronary artery disease with stents, diabetes mellitus type 2, hyperlipidemia, recurrent UTIs, BPH. FAMILY HISTORY: Noncontributory. SOCIAL HISTORY: No alcohol or illicit drug abuse. No tobacco smoking. REVIEW OF SYSTEMS: Review of 12-organ system other than mentioned in the history of present illness is negative. HOME MEDICATIONS: Zetia, Plavix, Lipitor, Tylenol, Rapaflo, Ranexa, Protonix, Zofran, Pamelor, metoprolol, magnesium, Xopenex, fluocinonide cream, aspirin. CURRENT MEDICATIONS: Dilaudid p.r.n., lactated Ringer, Xopenex b.i.d., meropenem (ordered by ID), metoprolol, Singulair, Pamelor, Zofran p.r.n., Ditropan, Protonix, vancomycin, and propofol drip. PHYSICAL EXAMINATION: GENERAL: The patient is intubated on PRVC. The patient currently is on pressure support trial, propofol was off. VITAL SIGNS: Blood pressure 111/74, heart rate 97, oxygen saturation 100% on 50% FiO2, end tidal CO2 on the monitor 50, respiratory rate 30s. ENT, HEAD, AND NECK: Atraumatic. LUNGS: Clear to auscultation bilaterally. ABDOMEN: Soft, nontender. The colostomy present, viable, pink with small amount of brownish fluids. Bowel sounds present. MUSCULOSKELETAL: No C/C/E. NEUROLOGIC: The patient moves all extremities spontaneously. SKIN: Moist. PSYCHIATRIC: The patient is under residual effect of sedation. CAT scan of the abdomen and pelvis prior to procedure showed diverticulitis and free air. Chest x-ray, no active pulmonary disease. Port-A-Cath line in the right position. LABORATORY DATA: Sodium 143, potassium 3.9, chloride 104, carbon dioxide 25. BUN 23, creatinine 1.1. Glucose 229. AST 26, ALT 28, total bilirubin 1.3. Blood gas in the morning, 7.38/43/206 on 50% FiO2 (we will go down on FiO2 to 40%). ASSESSMENT AND PLAN: This is a 77-year-old gentleman with peritonitis due to viscous perforation, status post Milli procedure. At present time, he is hemodynamically stable. He is still intubated and we are watching him closely, given sedation vacation and pressure support trial. His colostomy is pink and viable. His abdominal exam is fairly benign at this point and he does not appear to be in pain. However, the pain will be controlled aggressively if it appears again. The patient also has bowel sounds already. At the present time, we will continue with IV fluids. We will continue with ventilator management. If the patient pass pressure support trial, he will be extubated. Otherwise, we will continue with protective lung ventilation strategy including tidal volume 4 to 8 mL per predicted body weight and plateau pressure less than 30. Head of bed elevated more than 35 degrees. Oral hygiene, deep venous thrombosis, and gastrointestinal prophylaxis. The patient is making about 35 mL of urine which is close to 0.5 mL/kg/hour. His creatinine is trending down. We will maintain mean arterial pressure more than 65 and avoid nephrotoxins, but not at expense of treating underlying disease. We will try to avoid hyperchloremia. The patient is on broad-spectrum antibiotics, septic workup was done. Infectious Disease services following the patient as well. Procalcitonin is pending. We will maintain blood glucose within 140 to 180 range according to NICE-SUGAR trial. The patient will remain n.p.o. until cleared by Surgery. We will touch base with surgical service about starting using GI tract in light of presence of bowel sounds. ccm time 40 min Bam Castillo MD JUAN R
--- NOTE | 2017-06-30 20:44 | CON ---
DATE: 06/30/2017 REASON FOR CONSULTATION: Acute kidney injury, acute abdomen, status post laparotomy, Milli procedure, colostomy. HISTORY OF PRESENT ILLNESS: A 77-year-old male previously unknown to me, presented to Dr. Myers's office yesterday with complaints of severe abdominal pain. As per history, which is obtained from the chart, the pain was in the lower abdomen initially, but slowly became diffuse and by the time he presented to the emergency room, it was persistent and severe, radiating to the back. He also had some nausea and chills. No vomiting. No fever. The patient underwent a CAT scan with contrast in the emergency room. He was found to have free intraperitoneal air consistent with perforated viscus. Colonic wall thickening and pericolonic inflammation. Perforated diverticulitis. The patient underwent emergency laparotomy. He was found to have a perforated sigmoid colon. He had a Milli procedure and ostomy placed. He is currently seen in the ICU. He is on mechanical ventilation. He failed weaning earlier today. He is currently awake. He complains of pain in his abdomen. He denies any chest pain. He denies any palpitations. His baseline creatinine 0.9. Yesterday, at presentation, his creatinine was 1.2. PAST MEDICAL AND SURGICAL HISTORY: Stage IV mantle cell lymphoma, adenocarcinoma of the lung, history of wedge resection, CAD, PTCA and stents, hypertension, hyperlipidemia, moderate aortic regurgitation, mild pulmonary hypertension, BPH, recurrent UTI, history of prostatectomy. FAMILY HISTORY: Heart disease. SOCIAL HISTORY: No smoking, no alcohol use, no IV drug abuse. ALLERGIES: AZITHROMYCIN, PENICILLIN, KEFLEX, GABAPENTIN, AND SULFA. MEDICATIONS AT HOME: Included Zetia, Plavix, Lipitor, Tylenol, Rapaflo, Ranexa, Protonix, Zofran, Pamelor, Lopressor 25 at bedtime, mag oxide, and Xopenex. REVIEW OF SYSTEMS: Systems review is limited as the patient is on mechanical ventilation. He complains of abdominal pain. He denies any nausea or vomiting. PHYSICAL EXAMINATION: GENERAL: Elderly male seen lying in bed in the ICU on mechanical ventilation. He is awake. VITAL SIGNS: Blood pressure 126/78, heart rate 102, respiratory rate between 15 to 18, temperature 98.3. HEENT: Normocephalic, atraumatic, positive pallor. NECK: Supple, no JVD. LUNGS: Bilateral equal air entry, bilateral equal expansion, no rales. CARDIAC: S1, S2. Regular rate and rhythm. No murmur, no rub. ABDOMEN: Distended, multiple dressings, left-sided ostomy, bowel sounds absent. EXTREMITIES: No lower extremity edema. LABORATORY DATA: WBC 9, hemoglobin 12.3, hematocrit 37, platelets 196. Sodium 143, potassium 3.9, chloride 104, CO2 of 25, BUN 23, creatinine 1.1, glucose 229, calcium 7.8. Total bilirubin 1.3, albumin 3.2, corrected calcium is 8.3. Urinalysis, light yellow, clear, pH 6, specific gravity 1.015, protein negative, glucose negative, blood trace. Chest x-ray this morning, no infiltrate seen, low lung volumes. CURRENT MEDICATIONS: Dilaudid 0.5 every 3 hours p.r.n., the patient is off Diprivan, Ditropan on hold, subcu heparin, insulin, Ringer lactate at 130 mL/hour, Lasix 20 on hold, Lopressor 12.5 on hold, Merrem 500 every 12 hours, Pamelor 10, Plavix 75 on hold, Protonix 40 IV daily, and vancomycin 1 g given this morning. ASSESSMENT: 1. Acute abdomen, perforated diverticulitis, status post laparotomy, Milli procedure, ostomy, postoperative day zero. 2. Acute kidney injury, mild. 3. Severe sepsis, ventilator-dependent respiratory failure. 4. History of recurrent urinary tract infection. 5. Mantle cell lymphoma. 6. History of coronary artery disease, percutaneous transluminal coronary angioplasty and stents. 7. Hypernatremia. 8. Mild hypokalemia. PLAN: 1. Continue antibiotics as per ID recommendations. The patient is currently on Merrem and vancomycin. 2. Monitor vancomycin levels after third dose. 3. Dose for creatinine clearance about 50 mL/minute. 4. Continue IV fluid resuscitation. 5. Monitor urine output closely. 6. Trial of weaning. 7. Avoid hypotension. 8. Follow up cultures. Case discussed with Dr. Castillo, case discussed with Dr. Ted Santoyo, we will discuss with Dr. Marques. More than 35 minutes spent in the care of this critically ill patient with multiple medical problems. Natalie Raman MD
[2017-06-30] MEDS: Levalbuterol 0.63 MG/3 ML Inhal Soln UD IH SCH (20:52)
--- NOTE | 2017-07-01 01:32 | OP ---
PROCEDURE DATE: 06/30/2017 PREOPERATIVE DIAGNOSES: Acute abdomen and free intra-abdominal air. POSTOPERATIVE DIAGNOSIS: Perforated sigmoid diverticulitis. PROCEDURE PERFORMED: Exploratory laparotomy and Milli's procedure with end colostomy of the descending colon. SURGEON: Mark Pabon MD. CERTIFIED MEDICAL TRANSCRIPTIONIST: Dr. Mijares. ANESTHESIOLOGIST: Dr. Haynes. ANESTHESIA: General endotracheal anesthesia. ESTIMATED BLOOD LOSS: Minimal. SPECIMENS: Sigmoid colon. INDICATIONS: The patient is a 77-year-old male with history of abdominal pain started in the morning of the day of admission who has noted that the pain was increasing and he became nauseous. His abdomen also was distended. Patient came into the emergency room in the afternoon and workup was done until the evening when the CT scan was done noting the free air in the abdomen. The patient was hydrated, given antibiotics and he was brought to the operating room for exploratory laparotomy. DESCRIPTION OF PROCEDURE: The patient was brought to the operating room and placed on the operating table in supine position. The patient was connected to EKG, blood pressure and pulse oximetry monitors. The patient then underwent general endotracheal anesthesia and was prepped and draped in usual sterile fashion. First, a standard timeout procedure took place and everybody in the room were agreed as to the patient's identity, diagnosis, and procedure to be performed. Using #15 blade, an incision was made starting from just below the symphysis pubis up to about an inch and a half above the umbilicus. This was carried through the subcutaneous fashion and access to the abdominal cavity was obtained. On initial presentation, there was some fluid noted in the abdomen with a murky appearance and smell. After suctioning all the fluid, the small bowel was carefully hold off and evaluation of the sigmoid colon was done. There was an area of dark spot in between two areas of fat which was carefully evaluated and noted to have a perforation into the colon. I then proceeded with further exploration of the abdomen, but carefully checking out the remaining portion of the colon, also the sections of the small bowel and stomach and duodenum. There was no other abnormalities noted. The excess fluid from the abdominal cavity was then suctioned out and the abdominal cavity was copiously irrigated, and the irrigant fluid was suctioned out as well. Now the sigmoid colon was mobilized laterally, elevated and transected just about 5 cm above the sacral promontory where the bowel was still noted not to have any diverticula. Just above that area, there was several diverticula which were visible, and that portion of the sigmoid colon was then mobilized along the lateral pericolic gutter. In order to gain adequate , about 10 to 15 cm of the sigmoid colon was resected with the portion which contains perforation. The remaining portion of the bowel was now freed up and carefully evaluated for bringing it to the colostomy once adequate length was obtained. I then proceeded with creating a colostomy opening in the left mid to lower portion of the abdomen. Once the opening was made, colon was fluid. There was several stitches placed to the fascia in order to hold the colon in place. At this point, we proceeded with placing two Jak drains, one in the left pericolic gutter and pelvis, one in the right pericolic gutter, all the way up to the liver and sutured them to the skin. Once this was completed, we proceeded with closure of the abdominal cavity and thus showing that there was adequate hemostasis. The abdominal cavity was closed in layers using #1 PDS for the fascia, 3-0 Vicryl for subcutaneous tissue and surgical thierno for the skin. At this point, a colostomy was matured by the use of 3-0 interrupted Vicryl stitches and suturing the edge of the bowel through the edge of the skin. Once completed, the colostomy appliance was detached and colostomy bag was hooked up to the stoma previously attached. Sterile dressing was applied to all the wounds. The patient was then transferred to the recovery room, intubated, as given his condition, it would not be safe for him to be at that time. Mark Pabon MD
[2017-07-01] MEDS: Levalbuterol 0.63 MG/3 ML Inhal Soln UD IH SCH ×3 (02:50→21:35)
[2017-07-01] MEDS: Insulin Reg-LOW-Coverage SC SCH ×4 (05:43→18:01)
--- NOTE | 2017-07-01 06:09 | CON ---
DATE: PULMONARY CONSULTATION REFERRING PHYSICIAN: Dr. Ted Santoyo. REASON FOR CONSULTATION: Respiratory failure, on ventilator, status post visceral perforation, requiring laparotomy. HISTORY OF PRESENT ILLNESS: This is a 77-year-old gentleman known to me from previous admission, has multiple medical issues including cardiomyopathy, coronary artery disease, history of multiple coronary stent, history of lung cancer requiring wedge resection in the past; also has a history of mantle cell lymphoma, been on chemotherapy; diabetes; hyperlipidemia; recurrent infections, requiring broad-spectrum antibiotics in the past; also has a BPH, who presented in the emergency room with abdominal pain, found to have a visceral perforation, end up with laparotomy, seems like a diverticulum perforation, presently on ventilator intensive care unit, failed trial of extubation, is fully awake and alert. No hemoptysis, no hematemesis, no hematuria, no diarrhea reported. PAST MEDICAL HISTORY: As per history present illness. ALLERGIES: ZITHROMAX, PENICILLIN, KEFLEX, GABAPENTIN, PREGABALIN, SULFA, IMBRUVICA. SOCIAL HISTORY: Retired, nonsmoker, no alcohol abuse. FAMILY HISTORY: No significant cardiopulmonary disease reported. MEDICATIONS: Patient is on Dilaudid 0.5 mg tablet p.r.n., IV Ditropan 1 tablet at bedtime, Ecotrin 81 mg daily, heparin 5000 units subcu every 8 hours, insulin coverage, IV fluid, Ringer lactate 130 mL per hour, Lasix 20 mg daily, metoprolol tartrate 12.5 mg daily, meropenem 1 g IV every 12 hours, nortriptyline 10 mg daily, Plavix 75 mg daily, Protonix 40 mg daily, Singulair 10 mg daily, Xanax 0.25 mg twice a day, Xopenex inhale every 12 hours, Zofran p.r.n. REVIEW OF SYSTEMS: He is intubated, mildly sedated. Awake, follows simple commands. There is no hemoptysis, no hematemesis. No chest pain. No leg swelling. Has abdominal discomfort. PHYSICAL EXAMINATION: GENERAL: On ventilator, sedated and intubated. VITAL SIGNS: Temperature is 98, heart rate 107, respiratory rate is 20, blood pressure 136/58, pulse ox 100% on 40% oxygen on ventilator. HEENT: Moist mucous membrane. ET tube, no secretion. NECK: Supple. No JVD. LUNGS: Have scattered rhonchi. HEART: S1 and S2. ABDOMEN: Has a colostomy, no secretion. There is a midline surgical scar. Positive bowel sounds, decreased in frequency. EXTREMITIES: There is no edema. NEUROLOGICAL: Sedated, but awake, alert. LABORATORY DATA: Shows hemoglobin 12.3, hematocrit 37.1, WBC 9.0, platelet is 196. INR 1.19. PTT is 29. ABG show pH 7.38, pCO2 of 43, O2 206. This is on 50% oxygen on ventilator. Sodium 143, potassium 3.9, chloride 104, bicarbonate 25, BUN 23, creatinine 1.1, glucose 229, calcium 7.8, AST 26, ALT 28, alk phos is 67. Albumin is 3.2, procalcitonin 17.42. Urinalysis shows some blood, otherwise unremarkable. Chest x-ray, which is done today shows no infiltrate. There is a low lung volume. IMPRESSION AND PLAN: Visceral perforation, requiring laparotomy; hemicolectomy and colostomy; has a chronic obstructive lung disease; history of lung cancer, requiring wedge resection; chronic lung disease; has a mantle cell lymphoma, been on chemotherapy; diabetes; may have pneumonia; procalcitonin is high, but chest x-ray is unremarkable. Failed this morning weaning trial. Case discussed with Hematology and primary care services. Spoke to nursing staff. May keep present vent setting, keep head at 45 degrees. Gastric prophylaxis. Sequential compression device to lower extremity. Continue antibiotics. We will add inhaled bronchodilator for pulmonary toilet. Follow up ABG, chest x-ray, CBC, CMP in the morning. Thank you and we will follow with you. Thanh Duffy MD
[2017-07-01 07:07] LABS: BASO # 0.01 K/mm3 (0.0-2.0); BASO % 0.1 % (0.0-3.0); EOS % 0.3 % (1.5-5.0); GRAN # 6.01 (1.4-6.5); GRAN % 84.6 % (50.0-68.0); HEMOGLOBIN 9.8 g/dL (14.0-18.0); LYMPH # 0.7 (1.2-3.4); LYMPH % 10.4 % (22.0-35.0); MEAN CELL VOLUME 87.9 fl (80.0-105.0); MEAN CORPUSCULAR HEMOGLOBIN 28.2 pg (25.0-35.0); MEAN CORPUSCULAR HGB CONC 32.1 g/dl (31.0-37.0); MONO # 0.3 (0.1-0.6); MONO % 4.6 % (1.0-6.0); RBC 3.47 10^6/uL (3.5-6.1); RED CELL DISTRIBUTION WIDTH 14.9 % (11.5-14.5); WHITE BLOOD COUNT 7.1 10^3/ul (4.5-11.0)
--- NOTE | 2017-07-01 07:25 | PCM.URO ---
Urology Progress Note - Objective Lab Studies: Reviewed (gu plans : follow along , no intervention , no change , see previous notes) Lab Results Last 24 Hours: Laboratory Results - last 24 hr 06/30/17 06/30/17 06/30/17 11:22 12:00 12:00 WBC 9.0 D RBC 4.21 Hgb 12.3 L Hct 37.1 L MCV 88.1 MCH 29.2 MCHC 33.2 RDW 14.7 H Plt Count 196 MPV 10.3 Gran % Lymph % (Auto) Avery % (Auto) Eos % (Auto) Baso % (Auto) Gran # Lymph # (Auto) Avery # (Auto) Eos # (Auto) Baso # (Auto) PT 13.7 H INR 1.19 H APTT 28.5 POC Glucose (mg/dL) 180 H Procalcitonin 06/30/17 06/30/17 07/01/17 12:00 17:48 00:34 WBC RBC Hgb Hct MCV MCH MCHC RDW Plt Count MPV Gran % Lymph % (Auto) Avery % (Auto) Eos % (Auto) Baso % (Auto) Gran # Lymph # (Auto) Avery # (Auto) Eos # (Auto) Baso # (Auto) PT INR APTT POC Glucose (mg/dL) 185 H 192 H Procalcitonin 17.42 H 07/01/17 07/01/17 06:18 06:30 WBC 7.1 D RBC 3.47 L Hgb 9.8 L D Hct 30.5 L MCV 87.9 MCH 28.2 MCHC 32.1 RDW 14.9 H Plt Count 154 MPV 10.0 Gran % 84.6 H Lymph % (Auto) 10.4 L Avery % (Auto) 4.6 Eos % (Auto) 0.3 L Baso % (Auto) 0.1 Gran # 6.01 Lymph # (Auto) 0.7 L Avery # (Auto) 0.3 Eos # (Auto) 0.0 Baso # (Auto) 0.01 PT INR APTT POC Glucose (mg/dL) 177 H Procalcitonin Intake & Output: Intake & Output 06/30/17 07/01/17 07/01/17 18:59 06:59 18:59 Intake Total 41.5 3570 Output Total 225 640 Balance -183.5 2930 Intake: IV 41.5 3570 Distal Port 1660 Left Antecubital 1910 Output: Drainage 140 Left Lower Abdomen 140 Urine 225 500 Urethral (Muir) 225 500 Vital Signs: Vital Signs - 24 hr 06/30/17 06/30/17 06/30/17 07:27 07:30 10:00 Temperature 98 F Pulse Rate 95 H 100 H Respiratory 17 Rate Blood Pressure 120/70 O2 Sat by Pulse Oximetry 06/30/17 06/30/17 06/30/17 11:00 11:30 12:04 Temperature 99.5 F Pulse Rate 102 H 101 H Respiratory 15 Rate Blood Pressure 126/78 O2 Sat by Pulse 99 Oximetry 06/30/17 06/30/17 06/30/17 12:25 12:30 13:00 Temperature Pulse Rate 101 H 100 H 102 H Respiratory Rate Blood Pressure 116/65 O2 Sat by Pulse 100 96 Oximetry 06/30/17 06/30/17 06/30/17 13:30 14:00 14:30 Temperature Pulse Rate 103 H 101 H 95 H Respiratory Rate Blood Pressure 117/58 L O2 Sat by Pulse 99 99 100 Oximetry 06/30/17 06/30/17 06/30/17 15:00 15:30 15:59 Temperature Pulse Rate 102 H 102 H 103 H Respiratory Rate Blood Pressure 131/70 O2 Sat by Pulse 97 99 100 Oximetry 06/30/17 06/30/17 06/30/17 16:00 16:30 16:35 Temperature 99.5 F Pulse Rate 103 H Respiratory Rate Blood Pressure 133/70 O2 Sat by Pulse 100 Oximetry 06/30/17 06/30/17 06/30/17 16:59 17:00 17:17 Temperature Pulse Rate 107 H 103 H Respiratory Rate Blood Pressure 136/58 L O2 Sat by Pulse 100 100 Oximetry 06/30/17 06/30/17 06/30/17 17:30 18:00 18:30 Temperature Pulse Rate 103 H 102 H 108 H Respiratory Rate Blood Pressure 133/69 O2 Sat by Pulse 100 100 99 Oximetry 06/30/17 06/30/17 06/30/17 19:00 19:30 20:00 Temperature Pulse Rate 108 H 108 H 106 H Respiratory Rate Blood Pressure 130/65 131/68 O2 Sat by Pulse 97 97 97 Oximetry 04/28/18 04/28/18 04/28/18 20:30 20:56 21:00 Temperature Pulse Rate 108 H 117 H 116 H Respiratory 37 H Rate Blood Pressure 142/69 O2 Sat by Pulse 97 97 97 Oximetry 06/30/17 06/30/17 06/30/17 21:30 22:00 22:30 Temperature Pulse Rate 106 H 107 H 99 H Respiratory Rate Blood Pressure 123/71 O2 Sat by Pulse 98 98 98 Oximetry 06/30/17 06/30/17 07/01/17 23:00 23:30 00:00 Temperature Pulse Rate 109 H 100 H 99 H Respiratory Rate Blood Pressure 121/61 142/64 O2 Sat by Pulse 96 99 98 Oximetry 07/01/17 07/01/17 07/01/17 00:30 01:00 01:30 Temperature Pulse Rate 100 H 97 H 100 H Respiratory Rate Blood Pressure 147/70 O2 Sat by Pulse 99 99 100 Oximetry 07/01/17 07/01/17 07/01/17 02:00 02:30 03:00 Temperature Pulse Rate 110 H 116 H 111 H Respiratory Rate Blood Pressure 155/69 H 149/76 O2 Sat by Pulse 98 97 97 Oximetry 07/01/17 07/01/17 07/01/17 03:30 04:00 04:30 Temperature 99.4 F Pulse Rate 105 H 104 H 104 H Respiratory Rate Blood Pressure 143/74 O2 Sat by Pulse 98 98 98 Oximetry 07/01/17 07/01/17 07/01/17 05:00 05:02 05:15 Temperature Pulse Rate 103 H 105 H 109 H Respiratory 24 Rate Blood Pressure 157/77 H O2 Sat by Pulse 100 100 100 Oximetry 07/01/17 05:30 Temperature Pulse Rate 104 H Respiratory Rate Blood Pressure O2 Sat by Pulse 100 Oximetry
--- NOTE | 2017-07-01 07:27 | CP.PCM.PN ---
Subjective - Date & Time of Evaluation Date of Evaluation: 07/01/17 Time of Evaluation: 07:25 - Subjective Subjective: General Surgery: Dr Pabon Pt S&E in ICU. Remains intubated, off sedation. He is arousable and alert. Has not been extubated due to poor tidal volume. Pt instructed to take deeper breathes. Acknowledges he is having abdominal pain still. 800cc/12 hours 40/20 from blakes - serosanguinous Objective - Vital Signs/Intake and Output Vital Signs (last 24 hours): Temp Pulse Resp BP Pulse Ox 99.4 F 104 H 24 157/77 H 100 07/01/17 04:00 07/01/17 05:30 07/01/17 05:15 07/01/17 05:02 07/01/17 05:30 Intake and Output: 07/01/17 07/01/17 06:59 18:59 Intake Total 3570 Output Total 640 Balance 2930 - Medications Medications: Current Medications Alprazolam (Xanax) 0.25 mg PO BID PRN; Protocol PRN Reason: Anxiety Stop: 07/06/17 19:29 Aspirin (Ecotrin) 81 mg PO DAILY [facility] Clopidogrel Bisulfate (Plavix) 75 mg PO DAILY [facility] Furosemide (Lasix) 20 mg PO DAILY [facility] Heparin Sodium (Porcine) (Heparin) 5,000 units SC Q8 [facility] PRN Reason: Protocol Last Admin: 06/30/17 21:47 Dose: 5,000 units Home Med (Home Med) 500 unit PO BID ALEX Home Med (Home Med) 8 unit PO HS [facility] Hydromorphone HCl (Dilaudid) 0.5 mg IVP Q3H PRN PRN Reason: Pain, Mild (1-3) Last Admin: 06/30/17 21:46 Dose: 0.5 mg Meropenem (Merrem Iv 1 Gm Premix) 50 mls @ 100 mls/hr IVPB Q12 [facility] PRN Reason: Protocol Last Admin: 06/30/17 21:53 Dose: 100 mls/hr Propofol (Diprivan) 1,000 mg in 100 mls @ 2.014 mls/hr IV .Q24H PRN; Protocol; 5 MCG/KG/MIN PRN Reason: TITRATE PER MD ORDER Last Titration: 06/30/17 07:59 Dose: 0 mcg/kg/min, 0 mls/hr Lactated Ringer's (Lactated Ringer's) 1,000 mls @ 70 mls/hr IV .[id number] [facility] Insulin Human Regular (Humulin R Low) 0 units SC ACHS [facility] PRN Reason: Protocol Last Admin: 07/01/17 05:43 Dose: Not Given Levalbuterol HCl (Xopenex) 0.63 mg 0800,2000 [facility] Last Admin: 07/01/17 02:50 Dose: 0.63 mg Metoprolol Tartrate (Lopressor) 12.5 mg PO DAILY [facility] Last Admin: 06/30/17 10:31 Dose: Not Given Montelukast Sodium (Singulair) 10 mg PO DAILY [facility] Last Admin: 06/30/17 10:32 Dose: Not Given Nortriptyline HCl (Pamelor) 10 mg PO DAILY [facility] Last Admin: 06/30/17 10:32 Dose: Not Given Ondansetron HCl (Zofran Inj) 4 mg IVP Q4H PRN PRN Reason: Nausea/Vomiting Oxybutynin Chloride (Ditropan Tab) 5 mg PO [facility] Pantoprazole Sodium (Protonix Inj) 40 mg IVP DAILY [facility] Last Admin: 06/30/17 10:40 Dose: 40 mg - Labs Labs: 07/01/17 06:30 06/30/17 05:30 PT 13.7 SECONDS (9.4-12.5) H 06/30/17 12:00 INR 1.19 (0.93-1.08) H 06/30/17 12:00 APTT 28.5 Seconds (25.1-36.5) 06/30/17 12:00 - Constitutional Appears: Non-toxic - ENT Exam ENT Exam: Mucous Membranes Dry - Respiratory Exam Respiratory Exam: absent: Accessory Muscle Use, Respiratory Distress Additional comments: intubated, on pressure support, low tidal volumes - Cardiovascular Exam Cardiovascular Exam: REGULAR RHYTHM. absent: Tachycardia - GI/Abdominal Exam GI & Abdominal Exam: Soft, Tenderness (appropriate). absent: Distended, Firm, Guarding, Rigid Additional comments: midline dressing c/d/i - Neurological Exam Neurological Exam: Alert, Awake - Skin Skin Exam: Normal Color Assessment and Plan - Assessment and Plan (Free Text) Assessment: 77M POD#1 s/p Milli's colostomy for perforated diverticulitis Plan: cont abx CPAP trial as per ICU team - extubation at their discretion cont monitor I/O will decrease fluid intake given urine output is more than adequate continue to monitor H/H - had significant drop overnight but no evidence of bleeding - possibly dilutional/mobilization will d/w Dr Cm Grijalva, PGY3
[2017-07-01 07:29] LABS: ALBUMIN 2.8 g/dL (3.0-4.8); ALT/SGPT 21 U/L (7-56); AST/SGOT 21 U/L (17-59); BLOOD UREA NITROGEN 15 mg/dL (7-21); CALCIUM 8.1 mg/dL (8.4-10.5); GFR AFRICAN-AMERICAN > 60; GFR NON-AFRICAN AMERICAN > 60
[2017-07-01] MEDS: HYDROmorphone 0.5 mg/0.5 ml ISec IVP PRN ×2 (07:59→21:00)
[2017-07-01] MEDS: Lactated Ringer's 1,000 ML IV SCH ×2 (08:00→21:30)
[2017-07-01] MEDS ORDERED: HYDROmorphone 0.5 mg/0.5 ml ISec IVP STA (08:04)
[2017-07-01] MEDS: Meropenem IV 1 gm in NS 50 ML IVPB SCH ×2 (09:41→21:46)
[2017-07-01] MEDS: Metoprolol 1 mg/ml Inj IVP SCH ×3 (11:25→21:45)
--- NOTE | 2017-07-01 12:11 | CP.PCM.PN ---
Subjective - Date & Time of Evaluation Date of Evaluation: 07/01/17 Time of Evaluation: 11:30 - Subjective Subjective: Patient is now extubated but is still on a BiPAP, not in distress, no fevers overnight. Objective - Vital Signs/Intake and Output Vital Signs (last 24 hours): Temp Pulse Resp BP Pulse Ox 99.4 F 102 H 19 126/74 97 07/01/17 04:00 07/01/17 09:30 07/01/17 09:30 07/01/17 09:00 07/01/17 09:30 Intake and Output: 07/01/17 07/01/17 06:59 18:59 Intake Total 3570 Output Total 640 Balance 2930 - Medications Medications: Current Medications Alprazolam (Xanax) 0.25 mg PO BID PRN; Protocol PRN Reason: Anxiety Stop: 07/06/17 19:29 Aspirin (Ecotrin) 81 mg PO DAILY [facility] Clopidogrel Bisulfate (Plavix) 75 mg PO DAILY [facility] Furosemide (Lasix) 20 mg PO DAILY [facility] Heparin Sodium (Porcine) (Heparin) 5,000 units SC Q8 [facility] PRN Reason: Protocol Last Admin: 07/01/17 08:37 Dose: 5,000 units Home Med (Home Med) 500 unit PO BID ALEX Home Med (Home Med) 8 unit PO HS [facility] Hydromorphone HCl (Dilaudid) 0.5 mg IVP Q3H PRN PRN Reason: Pain, Mild (1-3) Last Admin: 07/01/17 07:59 Dose: 0.5 mg Meropenem (Merrem Iv 1 Gm Premix) 50 mls @ 100 mls/hr IVPB Q12 [facility] PRN Reason: Protocol Last Admin: 07/01/17 09:41 Dose: 100 mls/hr Propofol (Diprivan) 1,000 mg in 100 mls @ 2.014 mls/hr IV .Q24H PRN; Protocol; 5 MCG/KG/MIN PRN Reason: TITRATE PER MD ORDER Last Titration: 06/30/17 07:59 Dose: 0 mcg/kg/min, 0 mls/hr Lactated Ringer's (Lactated Ringer's) 1,000 mls @ 70 mls/hr IV .[id number] [facility] Last Admin: 07/01/17 08:00 Dose: 70 mls/hr Potassium Chloride (Potassium Chloride 10 Meq/100 Ml) 10 meq in 100 mls @ 50 mls/hr IVPB Q2H [facility] Stop: 07/01/17 11:59 Last Admin: 07/01/17 08:38 Dose: 50 mls/hr Insulin Human Regular (Humulin R Low) 0 units SC Q6 [facility] PRN Reason: Protocol Levalbuterol HCl (Xopenex) 0.63 mg 799,1999 [facility] Last Admin: 07/01/17 08:54 Dose: 0.63 mg Metoprolol Tartrate (Lopressor) 12.5 mg PO DAILY [facility] Last Admin: 06/30/17 10:31 Dose: Not Given Metoprolol Tartrate (Lopressor) 2.5 mg IVP Q6H [facility] Montelukast Sodium (Singulair) 10 mg PO DAILY [facility] Last Admin: 06/30/17 10:32 Dose: Not Given Nortriptyline HCl (Pamelor) 10 mg PO DAILY [facility] Last Admin: 06/30/17 10:32 Dose: Not Given Ondansetron HCl (Zofran Inj) 4 mg IVP Q4H PRN PRN Reason: Nausea/Vomiting Oxybutynin Chloride (Ditropan Tab) 5 mg PO HS [facility] Pantoprazole Sodium (Protonix Inj) 40 mg IVP DAILY [facility] Last Admin: 07/01/17 09:44 Dose: 40 mg - Labs Labs: 07/01/17 06:30 07/01/17 06:30 PT 13.7 SECONDS (9.4-12.5) H 06/30/17 12:00 INR 1.19 (0.93-1.08) H 06/30/17 12:00 APTT 28.5 Seconds (25.1-36.5) 06/30/17 12:00 - Constitutional Appears: Chronically Ill - Head Exam Head Exam: NORMAL INSPECTION - Neck Exam Neck Exam: absent: Meningismus - Respiratory Exam Respiratory Exam: Decreased Breath Sounds - Cardiovascular Exam Cardiovascular Exam: +S1, +S2 - GI/Abdominal Exam GI & Abdominal Exam: Soft. absent: Tenderness Additional comments: dressings in place, left sided colostomy in place, right sided KERI drain in place with more serous fluid Assessment and Plan - Assessment and Plan (Free Text) Plan: Assessment Severe sepsis with acute renal failure S/P ventilator-dependent respiratory failure due to acute perforated sigmoid colon with associated diverticulitis S/ P exploratory laparotomy, sigmoidectomy and colostomy POD #2 history of sepsis due to acute bronchitis, with systemic viral illness history of UTI with E. 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 Santoyo
--- NOTE | 2017-07-01 14:44 | PN ---
DATE: 07/01/2017 SUBJECTIVE: The patient is seen and examined at the bedside. He passed pressure support trial and successfully extubated to BiPAP 14/6 with FiO2 of 35%. His pain is controlled. He is pulling tidal volume off, 500 mL to 600 mL. OBJECTIVE: VITAL SIGNS: His respiratory rate is 15, heart rate 103, oxygen saturation 97%, blood pressure 126/74. ENT: Head and neck atraumatic. LUNGS: Clear to auscultation bilaterally. HEART: Regular rhythm and rate. S1, S2 normal. ABDOMEN: Soft, nontender. Colostomy bag with some brownish fluid. No stools yet; however, colostomy itself looked pink and viable. Bowel sounds present on auscultation. MUSCULOSKELETAL: No C/C/E. NEUROLOGICAL: The patient moves all extremities spontaneously. SKIN: Moist. PSYCHIATRIC: The patient is comfortable and following commands. LABORATORY DATA: WBC 7.1, hemoglobin 9.8, platelet count 154. Sodium 139, potassium 3.3 (supplemented), chloride 105, carbon dioxide 28, BUN 15, creatinine 0.9, glucose 187, AST 21, ALT 21, bilirubin 1.1. Procalcitonin 17.42. ABG prior to extubation 7.38/43/206. MEDICATIONS: Heparin 5000 subcutaneously daily, Dilaudid p.r.n., regular insulin sliding scale low protocol, lactated Ringer 70 mL/hour, meropenem, Zofran p.r.n., Protonix daily, potassium supplementation. ASSESSMENT AND PLAN: This is 77-year-old gentleman who presented with severe sepsis secondary to bacterial peritonitis after diverticulitis/viscous perforation. The patient had undergone exploratory laparotomy with washout. He is successfully extubated to BiPAP today. His pain is controlled. He is on antibiotic. Septic workup was sent. At present time, we will continue with maintaining euvolemia, euglycemia, normothermia and oxygen saturation more than 90%. The patient hemodynamically relatively stable (heart rate 104, blood pressure 126/74). He is on lactated Ringer at 70 mL per hour. He appears to be euvolemic and his renal function improved substantially. He is making more than 0.5 mL/kg per hour urine and his creatinine is 0.9, down from 1.1. He is following commands. Alert, awake and oriented. At present time, he is still n.p.o.; however, once cleared by Surgery, swallow evaluation will be done and oral nutrition and hydration will be initiated. At present time, I would consider early mobilization, incentive spirometry, chest PT, bronchodilators, pulmonary toilet. I will continue with DVT and GI prophylaxis. Head of bed elevated at >35 degrees. ccm time 40 min Bam Castillo MD MTDEmile
--- NOTE | 2017-07-01 15:21 | PN ---
DATE: 07/01/2017 This visit is for Dr. Casiano, Dr. Ramirez covering. SUBJECTIVE: The patient is lying in bed. He has been extubated. He is awake. PHYSICAL EXAMINATION: VITAL SIGNS: Reveal temperature of 98, blood pressure 146/93, heart rate 92. HEENT: Reveals sclerae to be white. Conjunctivae pale. NECK: Supple. CHEST: Reveals scattered rhonchi. HEART: Reveals a regular rate and rhythm. ABDOMEN: Soft. He has a left lower quadrant colostomy. He has 2 Jak drains in the right lower quadrant, which were draining serosanguineous fluid. EXTREMITY: Show no edema. LABORATORY DATA: Revealed white blood cell count 7.1, hemoglobin 9.8. Chemistries reveal potassium 3.3, blood sugar 187. AST, ALT, alk phos all normal. IMPRESSION: 1. Status post perforating diverticulitis, postoperative day 1 with Milli's procedure and colostomy. 2. History of mantle cell lymphoma. 3. Coronary artery disease. RECOMMENDATIONS: 1. Continue postop care. 2. Continue IV meropenem 1 g every 12 hours and close observation. Favian Ramirez MD
--- NOTE | 2017-07-01 16:19 | PN ---
DATE: 07/01/2017 PULMONARY CRITICAL CARE PROGRESS NOTE REFERRING PHYSICIAN: Ted Santoyo MD. SUBJECTIVE: He is lying in the bed on noninvasive ventilation, extubated. Not much cough. No sputum production. No chest pain. Still has some abdominal pain. Colostomy has some bloody secretion. No leg swelling. OBJECTIVE: GENERAL: On noninvasive ventilation. VITAL SIGNS: Temp is 99, heart rate is 92, respiratory rate is 18, blood pressure 146/93, pulse 100% noninvasive ventilation. HEENT: Small oral cavity. Crowded airway. NECK: Supple. No JVD. LUNGS: Have a fair airflow with few rhonchi. HEART: S1 and S2. ABDOMEN: Surgical site looks okay. Has a colostomy. Has a small amount of bloody secretion. Bowel sounds are decreased in frequency, but positive. EXTREMITIES: There is no edema. NEUROLOGICAL: Awake, alert. Does follow simple command. LABORATORY DATA: Shows hemoglobin 9.8, hematocrit 30.5, WBC 7.1, platelet count is 154. Sodium 139, potassium 3.3, chloride 105, bicarbonate 28, BUN 15, creatinine 0.9, glucose 187, calcium 8.1, AST 21, ALT 21, alk phos is 77, albumin is 2.8. Venous Doppler of lower extremity. No evidence of DVT of the right upper extremity. MEDICATIONS: He is on Dilaudid 0.5 mg every 3 hours p.r.n.; Ditropan 5 mg, which is on hold; heparin 5000 units subcu every 8 hours, insulin coverage, lactated Ringer's 70 mL per hour, metoprolol tartrate 2.5 mg IV every 6 hours, meropenem 1 g IV every 12 hours, Protonix 40 mg IV daily, Xopenex inhale every 8 hours, Zofran p.r.n. basis. IMPRESSION AND PLAN: Visceral perforation, which was diverticulitis, status post colostomy, laparotomy; chronic obstructive lung disease; history of lung cancer; history of wedge resection in the remote past; mantle cell lymphoma, has been on chemotherapy; diabetes; probably has some aspiration pneumonia. Pulmonary point of view, doing okay. Continue bilevel positive airway pressure for now. Once stabilized, may switch to nasal cannula. There is maybe component of sleep apnea syndrome. I will encourage to use bilevel positive airway pressure while sleeping. Careful with sedation. Continue broad-spectrum antibiotics covering health-care associated organisms. Continue bronchodilators. Gastric prophylaxis. Deep venous thrombosis prophylaxis. Follow up ABG, chest x-ray, CBC, CMP in the morning. Critical care time of 35 minutes. Thank you and we will follow with you. Thanh Duffy MD
--- NOTE | 2017-07-01 17:59 | CP.CCUPN ---
<Lawson Luu - Last Filed: 07/01/17 17:54> CCU Subjective - Physician Review Subjective (Free Text): Patient is seen and examined at bedside in no acute distress. Patient is currently on BiPAP setting 14/6, 14, 35% FiO2 CCU Objective - Vital Signs / Intake & Output Vital Signs (Last 4 hours): Vital Signs Pulse Resp BP Pulse Ox 07/01/17 17:30 91 H 67 H 95 07/01/17 17:00 87 16 167/92 H 100 07/01/17 16:40 94 H 162/86 H 07/01/17 16:30 93 H 12 99 07/01/17 16:13 101 H 162/86 H 100 07/01/17 16:00 104 H 44 H 159/106 H 100 07/01/17 15:30 93 H 100 07/01/17 15:00 95 H 35 H 148/87 100 07/01/17 14:30 97 H 30 H 100 07/01/17 14:00 103 H 12 157/85 H 100 Intake and Output (Last 8hrs): Intake & Output 07/01/17 07/01/17 07/01/17 06:59 14:59 22:59 Intake Total 1660 Output Total 60 Balance 1600 Weight 68.039 kg Intake: IV 1660 Distal Port 1660 Output: Drainage 60 Left Lower Abdomen 60 - Physical Exam Head: Positive for: Atraumatic, Normocephalic, Other (mild bi-temporal wastin) Pupils: Positive for: PERRL, Other (no nystagmus, no photophobia, sclera anicteric, visual field intact b/l) Extroacular Muscles: Positive for: EOMI Conjunctiva: Positive for: Normal Ears: Positive for: Normal Mouth: Positive for: Dry, Other (poor dentitions, no drooling/stridor, no exudate/lesions, uvula/tongue are midline) Pharnyx: Positive for: Normal Nose (External): Positive for: Atraumatic Nose (Internal): Positive for: Normal Inspection Neck: Positive for: Normal Range of Motion, Other (intact ROM, no midline tenderness, no nuchal rigidity). Negative for: Meningeal Signs, MIDLINE TENDERNESS, Paraspinal Tenderness, Trachea Midline Respiratory/Chest: Positive for: Clear to Auscultation, Good Air Exchange, Other (CTA b/l, no w/r/r, no accessory muscle use noted). Negative for: Respiratory Distress, Accessory Muscle Use Cardiovascular: Positive for: Regular Rate and Rhythm, Normal S1, S2. Negative for: Murmurs Abdomen: Positive for: Tenderness (diffused lower abdominal tenderness; slight rebound noted, no guarding/rigidity/masses, + soft), Distention (slight distention), Normal Bowel Sounds, Other (colostomy bag noted drainage dark brown fecal matter). Negative for: Peritoneal Signs, Rebound, Guarding, Mass/ Organomegaly Back: Positive for: Normal Inspection. Negative for: CVA Tenderness, Midline Tenderness, Paraspinal Tenderness Upper Extremity: Positive for: Normal Inspection, Normal ROM, NORMAL PULSES. Negative for: Cyanosis, Edema Lower Extremity: Positive for: Normal Inspection, NORMAL PULSES, Normal ROM, Neurovascularly Intact. Negative for: Edema Neurological: Positive for: GCS=15, CN II-XII Intact, Speech Normal Skin: Positive for: Warm, Dry, Normal Color, Other (cap refill ~ 1sec, no ulcerations, no petechiae). Negative for: Rashes Psychiatric: Positive for: Alert, Oriented x 3, Normal Insight, Normal Concentration - Medications Active Medications: Active Medications Generic Name Dose Route Start Last Admin Trade Name Freq PRN Reason Stop Dose Admin Alprazolam 0.25 mg 06/29/17 19:28 Xanax PO 07/06/17 19:29 BID PRN Anxiety Protocol Aspirin 81 mg 06/30/17 10:00 Ecotrin PO DAILY [facility] Clopidogrel Bisulfate 75 mg 06/30/17 10:00 Plavix PO DAILY [facility] Furosemide 20 mg 06/30/17 10:00 Lasix PO DAILY [facility] Heparin Sodium (Porcine) 5,000 units 06/30/17 08:45 07/01/17 16:41 Heparin SC 5,000 units Q8 ALEX Administration Protocol Home Med 500 unit 06/30/17 18:00 Home Med PO BID ALEX Home Med 8 unit 06/30/17 22:00 Home Med PO HS ALEX Hydromorphone HCl 0.5 mg 06/29/17 21:51 07/01/17 07:59 Dilaudid IVP 0.5 mg Q3H PRN Administration Pain, Mild (1-3) Meropenem 50 mls @ 100 mls/hr 06/30/17 10:00 07/01/17 09:41 Merrem Iv 1 Gm Premix IVPB 100 mls/hr Q12 ALEX Administration Protocol Propofol 1,000 mg in 100 mls @ 2.014 mls/hr 06/30/17 04:45 06/30/17 07:59 Diprivan IV 0 mcg/kg/min .Q24H PRN 0 mls/hr TITRATE PER MD ORDER Titration Protocol 5 MCG/KG/MIN Lactated Ringer's 1,000 mls @ 70 mls/hr 07/01/17 07:23 07/01/17 08:00 Lactated Ringer's IV 70 mls/hr .[id number] ALEX Administration Insulin Human Regular 0 units 07/01/17 12:00 07/01/17 12:24 Humulin R Low SC Not Given Q6 ALEX Protocol Levalbuterol HCl 0.63 mg 06/30/17 08:10 07/01/17 08:54 Xopenex IH 0.63 mg ALEX Administration Metoprolol Tartrate 12.5 mg 06/29/17 20:00 06/30/17 10:31 Lopressor PO Not Given DAILY [facility] Metoprolol Tartrate 2.5 mg 07/01/17 10:00 07/01/17 16:40 Lopressor IVP 2.5 mg Q6H ALEX Administration Montelukast Sodium 10 mg 06/30/17 10:00 06/30/17 10:32 Singulair PO Not Given DAILY [facility] Nortriptyline HCl 10 mg 06/30/17 10:00 06/30/17 10:32 Pamelor PO Not Given DAILY [facility] Ondansetron HCl 4 mg 06/29/17 21:51 Zofran Inj IVP Q4H PRN Nausea/Vomiting Oxybutynin Chloride 5 mg 06/29/17 22:00 Ditropan Tab PO HS [facility] Pantoprazole Sodium 40 mg 06/30/17 10:00 07/01/17 09:44 Protonix Inj IVP 40 mg DAILY ALEX Administration - Patient Studies Lab Studies: Microbiology Studies 06/30/17 14:15 Urine Culture - Final Urine,Muir No Growth (<1,000 CFU/ML) 06/30/17 00:30 MRSA Culture (Admit) - Final Nose MRSA NOT DETECTED Lab Studies 07/01/17 07/01/1707/01/18 Range/Units 17:45 11:19 06:30 WBC (4.5-11.0) 10^3/ul RBC (3.5-6.1) 10^6/uL Hgb (14.0-18.0) g/dL Hct (42.0-52.0) % MCV (80.0-105.0) fl MCH (25.0-35.0) pg MCHC (31.0-37.0) g/dl RDW (11.5-14.5) % Plt Count (120.0-450.0) 10^3/uL MPV (7.0-11.0) fl Gran % (50.0-68.0) % Lymph % (Auto) (22.0-35.0) % [place] % (Auto) (1.0-6.0) % Eos % (Auto) (1.5-5.0) % Baso % (Auto) (0.0-3.0) % Gran # (1.4-6.5) Lymph # (Auto) (1.2-3.4) [place] # (Auto) (0.1-0.6) Eos # (Auto) (0.0-0.7) Baso # (Auto) (0.0-2.0) K/mm3 Sodium 139 (132-148) mmol/L Potassium 3.3 L (3.6-5.0) mmol/L Chloride 105 (98-107) mmol/L Carbon Dioxide 28 (21-33) mmol/L Anion Gap 10 (10-20) BUN 15 (7-21) mg/dL Creatinine 0.9 (0.8-1.5) mg/dl Est GFR ( Amer) > 60 Est GFR (Non-Af Amer) > 60 POC Glucose (mg/dL) 105 134 H (65-110) mg/dL Random Glucose 187 H (70-110) mg/dL Calcium 8.1 L (8.4-10.5) mg/dL Total Bilirubin 1.1 (0.2-1.3) mg/dL AST 21 (17-59) U/L ALT 21 (7-56) U/L Alkaline Phosphatase 77 (38-126) U/L Total Protein 5.7 L (5.8-8.3) g/dL Albumin 2.8 L (3.0-4.8) g/dL Globulin 2.9 gm/dL Albumin/Globulin Ratio 1.0 L (1.1-1.8) Procalcitonin (0.19-0.49) NG/ML 07/01/17 07/01/17 07/01/17 Range/Units 06:30 06:18 00:34 WBC 7.1 D (4.5-11.0) 10^3/ul RBC 3.47 L (3.5-6.1) 10^6/uL Hgb 9.8 L D (14.0-18.0) g/dL Hct 30.5 L (42.0-52.0) % MCV 87.9 (80.0-105.0) fl MCH 28.2 (25.0-35.0) pg MCHC 32.1 (31.0-37.0) g/dl RDW 14.9 H (11.5-14.5) % Plt Count 154 (120.0-450.0) 10^3/uL MPV 10.0 (7.0-11.0) fl Gran % 84.6 H (50.0-68.0) % Lymph % (Auto) 10.4 L (22.0-35.0) % [place] % (Auto) 4.6 (1.0-6.0) % Eos % (Auto) 0.3 L (1.5-5.0) % Baso % (Auto) 0.1 (0.0-3.0) % Gran # 6.01 (1.4-6.5) Lymph # (Auto) 0.7 L (1.2-3.4) [place] # (Auto) 0.3 (0.1-0.6) Eos # (Auto) 0.0 (0.0-0.7) Baso # (Auto) 0.01 (0.0-2.0) K/mm3 Sodium (132-148) mmol/L Potassium (3.6-5.0) mmol/L Chloride (98-107) mmol/L Carbon Dioxide (21-33) mmol/L Anion Gap (10-20) BUN (7-21) mg/dL Creatinine (0.8-1.5) mg/dl Est GFR ( Amer) Est GFR (Non-Af Amer) POC Glucose (mg/dL) 177 H 192 H (65-110) mg/dL Random Glucose (70-110) mg/dL Calcium (8.4-10.5) mg/dL Total Bilirubin (0.2-1.3) mg/dL AST (17-59) U/L ALT (7-56) U/L Alkaline Phosphatase (38-126) U/L Total Protein (5.8-8.3) g/dL Albumin (3.0-4.8) g/dL Globulin gm/dL Albumin/Globulin Ratio (1.1-1.8) Procalcitonin (0.19-0.49) NG/ML 06/30/17 06/30/17 Range/Units 17:48 12:00 WBC (4.5-11.0) 10^3/ul RBC (3.5-6.1) 10^6/uL Hgb (14.0-18.0) g/dL Hct (42.0-52.0) % MCV (80.0-105.0) fl MCH (25.0-35.0) pg MCHC (31.0-37.0) g/dl RDW (11.5-14.5) % Plt Count (120.0-450.0) 10^3/uL MPV (7.0-11.0) fl Gran % (50.0-68.0) % Lymph % (Auto) (22.0-35.0) % [place] % (Auto) (1.0-6.0) % Eos % (Auto) (1.5-5.0) % Baso % (Auto) (0.0-3.0) % Gran # (1.4-6.5) Lymph # (Auto) (1.2-3.4) [place] # (Auto) (0.1-0.6) Eos # (Auto) (0.0-0.7) Baso # (Auto) (0.0-2.0) K/mm3 Sodium (132-148) mmol/L Potassium (3.6-5.0) mmol/L Chloride (98-107) mmol/L Carbon Dioxide (21-33) mmol/L Anion Gap (10-20) BUN (7-21) mg/dL Creatinine (0.8-1.5) mg/dl Est GFR ( Amer) Est GFR (Non-Af Amer) POC Glucose (mg/dL) 185 H (65-110) mg/dL Random Glucose (70-110) mg/dL Calcium (8.4-10.5) mg/dL Total Bilirubin (0.2-1.3) mg/dL AST (17-59) U/L ALT (7-56) U/L Alkaline Phosphatase (38-126) U/L Total Protein (5.8-8.3) g/dL Albumin (3.0-4.8) g/dL Globulin gm/dL Albumin/Globulin Ratio (1.1-1.8) Procalcitonin 17.42 H (0.19-0.49) NG/ML Laboratory Results - last 24 hr 06/30/17 06/30/17 07/01/17 12:00 17:48 00:34 WBC RBC Hgb Hct MCV MCH MCHC RDW Plt Count MPV Gran % Lymph % (Auto) [place] % (Auto) Eos % (Auto) Baso % (Auto) Gran # Lymph # (Auto) [place] # (Auto) Eos # (Auto) Baso # (Auto) Sodium Potassium Chloride Carbon Dioxide Anion Gap BUN Creatinine Est GFR ( Amer) Est GFR (Non-Af Amer) POC Glucose (mg/dL) 185 H 192 H Random Glucose Calcium Total Bilirubin AST ALT Alkaline Phosphatase Total Protein Albumin Globulin Albumin/Globulin Ratio Procalcitonin 17.42 H 07/01/17 07/01/17 07/01/17 06:18 06:30 06:30 WBC 7.1 D RBC 3.47 L Hgb 9.8 L D Hct 30.5 L MCV 87.9 MCH 28.2 MCHC 32.1 RDW 14.9 H Plt Count 154 MPV 10.0 Gran % 84.6 H Lymph % (Auto) 10.4 L [place] % (Auto) 4.6 Eos % (Auto) 0.3 L Baso % (Auto) 0.1 Gran # 6.01 Lymph # (Auto) 0.7 L [place] # (Auto) 0.3 Eos # (Auto) 0.0 Baso # (Auto) 0.01 Sodium 139 Potassium 3.3 L Chloride 105 Carbon Dioxide 28 Anion Gap 10 BUN 15 Creatinine 0.9 Est GFR ( Amer) > 60 Est GFR (Non-Af Amer) > 60 POC Glucose (mg/dL) 177 H Random Glucose 187 H Calcium 8.1 L Total Bilirubin 1.1 AST 21 ALT 21 Alkaline Phosphatase 77 Total Protein 5.7 L Albumin 2.8 L Globulin 2.9 Albumin/Globulin Ratio 1.0 L Procalcitonin 07/01/17 07/01/17 11:19 17:45 WBC RBC Hgb Hct MCV MCH MCHC RDW Plt Count MPV Gran % Lymph % (Auto) [place] % (Auto) Eos % (Auto) Baso % (Auto) Gran # Lymph # (Auto) [place] # (Auto) Eos # (Auto) Baso # (Auto) Sodium Potassium Chloride Carbon Dioxide Anion Gap BUN Creatinine Est GFR ( Amer) Est GFR (Non-Af Amer) POC Glucose (mg/dL) 134 H 105 Random Glucose Calcium Total Bilirubin AST ALT Alkaline Phosphatase Total Protein Albumin Globulin Albumin/Globulin Ratio Procalcitonin Fingerstick Blood Sugar Results: 134 Review of Systems - Review of Systems Review of Systems: Limited due to patient being on BiPAP and recently extubated. - Cardiovascular Cardiovascular: absent: Chest Pain - Respiratory Respiratory: absent: Cough - Gastrointestinal Gastrointestinal: absent: Diarrhea, Nausea, Vomiting - Psychiatric Psychiatric: Anxiety - Endocrine Endocrine: UNREMARKABLE - Hematologic/Lymphatic Hematologic: UNREMARKABLE Critical Care Progress Note - Nutrition Nutrition: Nutrition Category Date Time Status NPO Diet [DIET] Diets 06/29/17 Breakfast Ordered Assessment/Plan - Assessment and Plan (Free Text) Assessment: 77 M history of stage IV mantle cell lymphoma, lung cancer, CAD s/p stent placement who presented to the ED with abdominal pain found to have acute abdomen for which nishant's procedure was performed. S/P surgery patient was unable to be successfully extubated due to hypoxemic respiratory failure s/p surgery as a result of diaphragmatic weakness. ] Plan: Neuro -AAOx 3 Cardiovascular -Maintain MAP >65 -Aspirin and Plavix on hold as per general surgery Pulmonary -Maintain SpO2>92% -Continue with Pulmonary toilet -Continue with adequate pain control with Dilaudid -Incentive spirometry -Continue with BiPAP procedure -Continue with xopenex -Chest PT Gastrointestinal -NPO -Monitor KERI drainage -Continue with protonix -Continue with merrem as per GI Renal -Maintain euvolemia -Replete electrolytes as needed -Monitor I&O Infectious disease -Afebrile, wbc low however patient is immunocompromised -Continue with vancomycin and merrem Endocrine -Maintain normothermia and euglycemia -ISS-Medium, continue with accuchecks Hematologic -SCDs and Heparin for DVT prophylaxis Musculoskeletal -OOB to chair -Physical therapy -Continue with plan for early mobility <Bam Castillo - Last Filed: 07/04/17 15:16> CCU Objective - Vital Signs / Intake & Output Intake and Output (Last 8hrs): Intake & Output 07/04/17 07/04/17 07/04/17 06:59 14:59 22:59 Intake Total 840 Output Total 950 Balance -110 Intake: IV 600 Right Subclavian 600 Oral 240 Output: Urine 950 Urethral (Muir) 950 Other: # Voids Urethral (Muir) 2 # Bowel Movements 0 - Patient Studies Lab Studies: Lab Studies 07/04/17 07/04/17 07/04/17 Range/Units 07:27 06:20 06:20 WBC 5.0 (4.5-11.0) 10^3/ul RBC 3.62 (3.5-6.1) 10^6/uL Hgb 10.3 L (14.0-18.0) g/dL Hct 30.9 L (42.0-52.0) % MCV 85.4 (80.0-105.0) fl MCH 28.5 (25.0-35.0) pg MCHC 33.3 (31.0-37.0) g/dl RDW 13.6 (11.5-14.5) % Plt Count 148 (120.0-450.0) 10^3/uL MPV 9.1 (7.0-11.0) fl Gran % 68.7 H (50.0-68.0) % Lymph % (Auto) 18.7 L (22.0-35.0) % [place] % (Auto) 7.4 H (1.0-6.0) % Eos % (Auto) 5.0 (1.5-5.0) % Baso % (Auto) 0.2 (0.0-3.0) % Gran # 3.45 (1.4-6.5) Lymph # (Auto) 0.9 L (1.2-3.4) [place] # (Auto) 0.4 (0.1-0.6) Eos # (Auto) 0.3 (0.0-0.7) Baso # (Auto) 0.01 (0.0-2.0) K/mm3 Sodium 136 (132-148) mmol/L Potassium 3.5 L (3.6-5.0) mmol/L Chloride 101 (98-107) mmol/L Carbon Dioxide 29 (21-33) mmol/L Anion Gap 10 (10-20) BUN 10 (7-21) mg/dL Creatinine 0.8 (0.8-1.5) mg/dl Est GFR ( Amer) > 60 Est GFR (Non-Af Amer) > 60 POC Glucose (mg/dL) 174 H (65-110) mg/dL Random Glucose 193 H (70-110) mg/dL Calcium 8.1 L (8.4-10.5) mg/dL Phosphorus 2.6 (2.5-4.5) mg/dL Magnesium 1.8 (1.7-2.2) mg/dL Total Bilirubin 0.8 (0.2-1.3) mg/dL AST 22 (17-59) U/L ALT 27 (7-56) U/L Alkaline Phosphatase 81 (38-126) U/L Total Protein 5.8 (5.8-8.3) g/dL Albumin 2.9 L (3.0-4.8) g/dL Globulin 2.9 gm/dL Albumin/Globulin Ratio 1.0 L (1.1-1.8) 07/04/17 07/04/17 07/03/17 Range/Units 06:02 01:02 21:22 WBC (4.5-11.0) 10^3/ul RBC (3.5-6.1) 10^6/uL Hgb (14.0-18.0) g/dL Hct (42.0-52.0) % MCV (80.0-105.0) fl MCH (25.0-35.0) pg MCHC (31.0-37.0) g/dl RDW (11.5-14.5) % Plt Count (120.0-450.0) 10^3/uL MPV (7.0-11.0) fl Gran % (50.0-68.0) % Lymph % (Auto) (22.0-35.0) % [place] % (Auto) (1.0-6.0) % Eos % (Auto) (1.5-5.0) % Baso % (Auto) (0.0-3.0) % Gran # (1.4-6.5) Lymph # (Auto) (1.2-3.4) [place] # (Auto) (0.1-0.6) Eos # (Auto) (0.0-0.7) Baso # (Auto) (0.0-2.0) K/mm3 Sodium (132-148) mmol/L Potassium (3.6-5.0) mmol/L Chloride (98-107) mmol/L Carbon Dioxide (21-33) mmol/L Anion Gap (10-20) BUN (7-21) mg/dL Creatinine (0.8-1.5) mg/dl Est GFR ( Amer) Est GFR (Non-Af Amer) POC Glucose (mg/dL) 206 H 199 H 166 H (65-110) mg/dL Random Glucose (70-110) mg/dL Calcium (8.4-10.5) mg/dL Phosphorus (2.5-4.5) mg/dL Magnesium (1.7-2.2) mg/dL Total Bilirubin (0.2-1.3) mg/dL AST (17-59) U/L ALT (7-56) U/L Alkaline Phosphatase (38-126) U/L Total Protein (5.8-8.3) g/dL Albumin (3.0-4.8) g/dL Globulin gm/dL Albumin/Globulin Ratio (1.1-1.8) 07/03/17 Range/Units 16:27 WBC (4.5-11.0) 10^3/ul RBC (3.5-6.1) 10^6/uL Hgb (14.0-18.0) g/dL Hct (42.0-52.0) % MCV (80.0-105.0) fl MCH (25.0-35.0) pg MCHC (31.0-37.0) g/dl RDW (11.5-14.5) % Plt Count (120.0-450.0) 10^3/uL MPV (7.0-11.0) fl Gran % (50.0-68.0) % Lymph % (Auto) (22.0-35.0) % [place] % (Auto) (1.0-6.0) % Eos % (Auto) (1.5-5.0) % Baso % (Auto) (0.0-3.0) % Gran # (1.4-6.5) Lymph # (Auto) (1.2-3.4) [place] # (Auto) (0.1-0.6) Eos # (Auto) (0.0-0.7) Baso # (Auto) (0.0-2.0) K/mm3 Sodium (132-148) mmol/L Potassium (3.6-5.0) mmol/L Chloride (98-107) mmol/L Carbon Dioxide (21-33) mmol/L Anion Gap (10-20) BUN (7-21) mg/dL Creatinine (0.8-1.5) mg/dl Est GFR ( Amer) Est GFR (Non-Af Amer) POC Glucose (mg/dL) 169 H (65-110) mg/dL Random Glucose (70-110) mg/dL Calcium (8.4-10.5) mg/dL Phosphorus (2.5-4.5) mg/dL Magnesium (1.7-2.2) mg/dL Total Bilirubin (0.2-1.3) mg/dL AST (17-59) U/L ALT (7-56) U/L Alkaline Phosphatase (38-126) U/L Total Protein (5.8-8.3) g/dL Albumin (3.0-4.8) g/dL Globulin gm/dL Albumin/Globulin Ratio (1.1-1.8) Laboratory Results - last 24 hr 07/03/17 07/03/17 07/04/17 16:27 21:22 01:02 WBC RBC Hgb Hct MCV MCH MCHC RDW Plt Count MPV Gran % Lymph % (Auto) [place] % (Auto) Eos % (Auto) Baso % (Auto) Gran # Lymph # (Auto) [place] # (Auto) Eos # (Auto) Baso # (Auto) Sodium Potassium Chloride Carbon Dioxide Anion Gap BUN Creatinine Est GFR ( Amer) Est GFR (Non-Af Amer) POC Glucose (mg/dL) 169 H 166 H 199 H Random Glucose Calcium Phosphorus Magnesium Total Bilirubin AST ALT Alkaline Phosphatase Total Protein Albumin Globulin Albumin/Globulin Ratio 07/04/17 07/04/17 07/04/17 06:02 06:20 06:20 WBC 5.0 RBC 3.62 Hgb 10.3 L Hct 30.9 L MCV 85.4 MCH 28.5 MCHC 33.3 RDW 13.6 Plt Count 148 MPV 9.1 Gran % 68.7 H Lymph % (Auto) 18.7 L [place] % (Auto) 7.4 H Eos % (Auto) 5.0 Baso % (Auto) 0.2 Gran # 3.45 Lymph # (Auto) 0.9 L [place] # (Auto) 0.4 Eos # (Auto) 0.3 Baso # (Auto) 0.01 Sodium 136 Potassium 3.5 L Chloride 101 Carbon Dioxide 29 Anion Gap 10 BUN 10 Creatinine 0.8 Est GFR ( Amer) > 60 Est GFR (Non-Af Amer) > 60 POC Glucose (mg/dL) 206 H Random Glucose 193 H Calcium 8.1 L Phosphorus 2.6 Magnesium 1.8 Total Bilirubin 0.8 AST 22 ALT 27 Alkaline Phosphatase 81 Total Protein 5.8 Albumin 2.9 L Globulin 2.9 Albumin/Globulin Ratio 1.0 L 07/04/17 07:27 WBC RBC Hgb Hct MCV MCH MCHC RDW Plt Count MPV Gran % Lymph % (Auto) [place] % (Auto) Eos % (Auto) Baso % (Auto) Gran # Lymph # (Auto) [place] # (Auto) Eos # (Auto) Baso # (Auto) Sodium Potassium Chloride Carbon Dioxide Anion Gap BUN Creatinine Est GFR ( Amer) Est GFR (Non-Af Amer) POC Glucose (mg/dL) 174 H Random Glucose Calcium Phosphorus Magnesium Total Bilirubin AST ALT Alkaline Phosphatase Total Protein Albumin Globulin Albumin/Globulin Ratio Critical Care Progress Note - Nutrition Nutrition: Nutrition Category Date Time Status Heart Healthy Diet [DIET] Diets 07/04/17 Breakfast Ordered Attending/Attestation - Attestation I have personally seen and examined this patient.: Yes I have fully participated in the care of the patient.: Yes I have reviewed all pertinent clinical information: Yes Notes (Text): 07/04/17 15:[address] Castillo's note
--- NOTE | 2017-07-01 18:49 | PN ---
DATE: 07/01/2017 This is [facility] care unit. For Dr. Myers. SUBJECTIVE: The patient is a 77-year-old male now postop day #[address] Pabon for a perforated diverticulum with Milli procedure with colostomy done on an emergent basis with the patient now on BiPAP, being extubated earlier today by Dr. Castillo. With this, the patient is reporting that he feels hungry with the patient now still on IV fluids until cleared by Dr. Pabon for p.o. intake. Conversation was held two times earlier today with his , Shelli, an employee here at [facility] regarding his care and that he was able to be extubated on BiPAP at present. The patient came in with exquisite tenderness and pain of a sudden onset to the mid lower abdomen, for which he is now postop day #2 with good effect for a perforated diverticulum. PHYSICAL EXAMINATION: VITAL SIGNS: Temperature 99.4, pulse 87, respirations 16, blood pressure 137/83, pulse ox 100%. HEENT: He is on BiPAP. NECK: No nodes. HEART: Regular rate. LUNGS: Rare rhonchi. ABDOMEN: Colostomy in left lower quadrant with dressing dry and intact to the midline. EXTREMITIES: No edema. Right extremity Doppler was negative. SKIN: Warm and dry. NEUROLOGIC: Awake and alert. Reporting that he is hungry. LABORATORY DATA: Labs were done. White blood cell count of 7.1, hemoglobin of 9.8, hematocrit of 30.5, platelet count of 154,000 with a chem metabolic panel showing a potassium of 3.3 to be corrected with a normal BUN of 15, creatinine 0.9. His procalcitonin was elevated at 17.4 with a urine culture showing no growth, MRSA none detected in testing, also reported. The patient did have an ultrasound of his extremities done yesterday, it was read as no sonographic evidence of DVT in the right upper extremity. ASSESSMENT: For this patient is that of postoperative day #2 for perforated sigmoid diverticulum with colostomy and Milli procedure performed with exploratory laparotomy. The patient is also known to suffer from atherosclerotic cardiovascular disease with coronary stent, diabetes mellitus, hypertension, chronic obstructive pulmonary disease, benign prostatic hypertrophy, hypogammaglobulinemia and mantle cell lymphoma. PLAN: The plan for this patient after conversation with Dr. Myers and Dr. Castillo and Dr. Duffy is to continue his present medical regimen as he is now extubated on BiPAP with patient to continue antibiotics as per Dr. Marshall who was also spoken to regarding the patient earlier today. Also, consult with Dr. Hill was appreciated for his cardiology evaluation. We will start resuming some of his medications once he is able to take p.o. Otherwise, they will be given parenterally as per need. This is a complex patient with a comprehensive medically necessary appropriate visit carried out in excess of 40 minutes face to face time, also conversation held with multiple people involved in his care including his regarding his care and nursing staff. All questions were answered to their satisfaction. Ted Santoyo MD
--- NOTE | 2017-07-01 19:15 | CP.PCM.PN ---
Subjective - Date & Time of Evaluation Date of Evaluation: 07/01/17 Time of Evaluation: 19:14 - Subjective Subjective: Endorsement by to get ABG. S/P extubation, on BiPaP. Objective - Vital Signs/Intake and Output Vital Signs (last 24 hours): Temp Pulse Resp BP Pulse Ox 98.5 F 88 20 176/87 H 100 07/01/17 18:59 07/01/17 18:45 07/01/17 18:00 07/01/17 18:45 07/01/17 18:45 Intake and Output: 07/01/17 07/02/17 18:59 06:59 Intake Total 1150 Output Total 873 Balance 277 - Medications Medications: Current Medications Alprazolam (Xanax) 0.25 mg PO BID PRN; Protocol PRN Reason: Anxiety Stop: 07/06/17 19:29 Aspirin (Ecotrin) 81 mg PO DAILY [facility] Clopidogrel Bisulfate (Plavix) 75 mg PO DAILY [facility] Furosemide (Lasix) 20 mg PO DAILY [facility] Heparin Sodium (Porcine) (Heparin) 5,000 units SC Q8 [facility] PRN Reason: Protocol Last Admin: 07/01/17 16:41 Dose: 5,000 units Home Med (Home Med) 500 unit PO BID ALEX Home Med (Home Med) 8 unit PO HS [facility]LEX Hydromorphone HCl (Dilaudid) 0.5 mg IVP Q3H PRN PRN Reason: Pain, Mild (1-3) Last Admin: 07/01/17 07:59 Dose: 0.5 mg Meropenem (Merrem Iv 1 Gm Premix) 50 mls @ 100 mls/hr IVPB Q12 ALEX PRN Reason: Protocol Last Admin: 07/01/17 09:41 Dose: 100 mls/hr Propofol (Diprivan) 1,000 mg in 100 mls @ 2.014 mls/hr IV .Q24H PRN; Protocol; 5 MCG/KG/MIN PRN Reason: TITRATE PER MD ORDER Last Titration: 06/30/17 07:59 Dose: 0 mcg/kg/min, 0 mls/hr Lactated Ringer's (Lactated Ringer's) 1,000 mls @ 70 mls/hr IV .[id number] ALEX Last Admin: 07/01/17 08:00 Dose: 70 mls/hr Insulin Human Regular (Humulin R Low) 0 units SC Q6 [facility] PRN Reason: Protocol Last Admin: 07/01/17 18:01 Dose: Not Given Levalbuterol HCl (Xopenex) 0.63 mg 0800,1999 [facility] Last Admin: 07/01/17 08:54 Dose: 0.63 mg Metoprolol Tartrate (Lopressor) 12.5 mg PO DAILY [facility] Last Admin: 06/30/17 10:31 Dose: Not Given Metoprolol Tartrate (Lopressor) 2.5 mg IVP Q6H [facility] Last Admin: 07/01/17 16:40 Dose: 2.5 mg Montelukast Sodium (Singulair) 10 mg PO DAILY [facility] Last Admin: 06/30/17 10:32 Dose: Not Given Nortriptyline HCl (Pamelor) 10 mg PO DAILY [facility] Last Admin: 06/30/17 10:32 Dose: Not Given Ondansetron HCl (Zofran Inj) 4 mg IVP Q4H PRN PRN Reason: Nausea/Vomiting Oxybutynin Chloride (Ditropan Tab) 5 mg PO [facility] Pantoprazole Sodium (Protonix Inj) 40 mg IVP DAILY [facility] Last Admin: 07/01/17 09:44 Dose: 40 mg - Labs Labs: 07/01/17 06:30 07/01/17 06:30 PT 13.7 SECONDS (9.4-12.5) H 06/30/17 12:00 INR 1.19 (0.93-1.08) H 06/30/17 12:00 APTT 28.5 Seconds (25.1-36.5) 06/30/17 12:00
--- NOTE | 2017-07-01 21:04 | CON ---
DATE: REASON FOR CONSULTATION: Followup cardiac evaluation, status post perforation of hollow viscus, status post exploratory laparotomy, on vent, history of coronary artery disease. BRIEF CLINICAL HISTORY: This is a 77-year-old male, of Dr. Marques, who has a history of coronary artery disease, history of multiple stents, history of lung CA requiring wedge resection, history of mantle cell lymphoma, B cell, on chemotherapy; diabetes, hypertension, hyperlipidemia, possibly diabetic neuropathy; came with acute abdominal perforation of hollow viscus, status post exploratory laparotomy and colostomy was done, who is currently being intubated, cardiac evaluation and followup. Denies any chest pain, shortness of breath or any palpitations. PAST MEDICAL HISTORY: Significant for mantle cell lymphoma, history of lung CA, status post wedge resection, CAD, status post coronary stent, history of recurrent UTI, hypertension, history of multiple stents. PAST SURGICAL HISTORY: History of wedge resection of the lung. SOCIAL HISTORY: Denies smoking. Denies any history of alcohol abuse. ALLERGIES: AZITHROMYCIN, PENICILLIN, KEFLEX, GABAPENTIN, AND SULFA. CURRENT MEDICATIONS: At home, patient was taking Zetia, Plavix, Lipitor, acetaminophen, Rapaflo, Ranexa, Lopressor, nortriptyline and Xopenex. Previous cardiac workup as follows: Patient had echocardiography on 06/09/2016 that shows normal chamber size, ejection fraction 55% to 60%, [id number] valvular aortic stenosis, trace mitral regurgitation, [id number] tricuspid regurgitation, RV systolic pressure 45; no vegetation or thrombus noted. When compared from the study 04/12/2016, no significant change noted. History of multiple stents, first stent was in 2011, patient had in-stent stenosis, underwent rotaablation at [facility], 09/07/2013. Last stress test, 06/07/2014. REVIEW OF SYSTEMS: As per HPI. PHYSICAL EXAMINATION: VITAL SIGNS: Temperature afebrile, heart rate 102, blood pressure 122/74. HEENT: PERRLA. Extraocular muscles are intact. NECK: Supple. No carotid bruits. No thyromegaly. CHEST: Clear to auscultation. HEART: S1 and S2 regular. ABDOMEN: Soft. EXTREMITIES: Clubbing and cyanosis negative. LABORATORY DATA: Blood workup as follows. WBC is 7.1, hemoglobin 9.8, hematocrit 30.5, platelet count 154. Chemistry shows sodium 139, potassium 3.3, chloride 105, carbon dioxide 28, anion gap of 10, BUN 15, creatinine 0.5, total protein 5.7, albumin 2.8, albumin-globulin ratio 1. IMPRESSION: Protein-calorie malnutrition, anemia, hypokalemia, status post perforation of hollow viscus, status post exploratory laparotomy, status post colostomy, respiratory failure, intubated, B-cell lymphoma, status post multiple stents in the past, in-stent restenosis, status post rotablation. Troponin postop remains negative. EKG showed normal sinus, ST-T changes lateral lead. RECOMMENDATIONS: Continue postop wean off the vent as tolerated. We will put IV Lopressor as tolerated. We will follow with you. Plavix was on hold. Thank you Dr. Santoyo for providing me the opportunity in taking care of the patient, Jakub. We will follow with you. Thanh Hill MD
[2017-07-01 21:15] LABS: ARTERIAL BLOOD GAS HCO3 26.6 mmol/L (21-28); ARTERIAL BLOOD GAS HEMOGLOBIN 11.8 g/dL (11.7-17.4); ARTERIAL BLOOD GAS O2 CAPACITY 16.3 mL/dl (16-24); ARTERIAL BLOOD GAS O2 CONTENT 16.2 ML/dl (15-23); ARTERIAL BLOOD GAS O2 SAT 99.2 % (95-98); ARTERIAL BLOOD GAS PCO2 42 mm/Hg (35-45); ARTERIAL BLOOD GAS PH 7.41 (7.35-7.45); ARTERIAL BLOOD GAS TCO2 27.9 mmol.L (22-28)
[2017-07-02] MEDS: Metoprolol 1 mg/ml Inj IVP SCH ×3 (04:35→19:14)
[2017-07-02] MEDS: Insulin Reg-LOW-Coverage SC SCH ×4 (05:55→19:07)
[2017-07-02 07:02] LABS: BASO # 0.01 K/mm3 (0.0-2.0); BASO % 0.1 % (0.0-3.0); EOS # 0.1 (0.0-0.7); EOS % 1.9 % (1.5-5.0); GRAN # 6.08 (1.4-6.5); GRAN % 83.7 % (50.0-68.0); HEMOGLOBIN 10.1 g/dL (14.0-18.0); LYMPH # 0.8 (1.2-3.4); LYMPH % 10.7 % (22.0-35.0); MEAN CELL VOLUME 87.1 fl (80.0-105.0); MEAN CORPUSCULAR HEMOGLOBIN 28.3 pg (25.0-35.0); MEAN CORPUSCULAR HGB CONC 32.5 g/dl (31.0-37.0); MONO # 0.3 (0.1-0.6); MONO % 3.6 % (1.0-6.0); RBC 3.57 10^6/uL (3.5-6.1); RED CELL DISTRIBUTION WIDTH 14.2 % (11.5-14.5); WHITE BLOOD COUNT 7.3 10^3/ul (4.5-11.0)
[2017-07-02 07:20] LABS: ALT/SGPT 25 U/L (7-56); AST/SGOT 24 U/L (17-59); BLOOD UREA NITROGEN 10 mg/dL (7-21); CALCIUM 8.4 mg/dL (8.4-10.5); GFR AFRICAN-AMERICAN > 60; GFR NON-AFRICAN AMERICAN > 60
[2017-07-02] MEDS: Levalbuterol 0.63 MG/3 ML Inhal Soln UD IH SCH ×2 (07:24→20:43)
[2017-07-02] MEDS ORDERED: Sodium Phosphate 15 MMOLE in Sodium Chloride 0.9% 250 ML IVPB ONE (08:29)
--- NOTE | 2017-07-02 08:32 | CP.CCUPN ---
<Torri Moore - Last Filed: 07/02/17 10:19> CCU Subjective - Physician Review Events Since Last Encounter (Free Text): 07/02/17 10:34 discontinued bipap, started NC Subjective (Free Text): 07/02/17 08:52 Patient seen and examined at bedside. No acute events overnight. This AM, bipap discontinued, switched to nasal cannula. Pt tolerating well. Pt alert, awake, oriented to self only. Reports sore throat, denies cough, fever, chills, nausea , vomiting, excessive abdominal pain, leg swelling. Critical Care Time Spent (in minutes): 60 CCU Objective - Vital Signs / Intake & Output Vital Signs (Last 4 hours): Vital Signs Pulse Resp BP Pulse Ox 07/02/17 06:30 81 14 100 07/02/17 06:00 87 28 H 158/93 H 100 07/02/17 05:55 87 07/02/17 05:49 90 34 H 07/02/17 05:30 85 17 100 07/02/17 05:00 78 16 162/91 H 100 07/02/17 04:35 100 H 162/90 H Intake and Output (Last 8hrs): Intake & Output 07/01/17 07/02/17 07/02/17 22:59 06:59 14:59 Intake Total 1150 890 Output Total 873 1460 Balance 277 -570 Weight 157 lb 9.6 oz Intake: IV 1150 890 Distal Port 50 Right Subclavian 1150 840 Oral 0 0 Output: Drainage 148 60 Right Abdomen 148 60 Urine 725 1400 Urethral (Muir) 725 1400 Other: # Bowel Movements 0 0 - Physical Exam Head: Positive for: Atraumatic, Normocephalic Pupils: Positive for: PERRL Extroacular Muscles: Positive for: EOMI Conjunctiva: Positive for: Normal Ears: Positive for: Normal Mouth: Positive for: Moist Mucous Membranes Pharnyx: Positive for: ERYTHEMA. Negative for: EXUDATE, TONSILS ENLARGED Nose (External): Positive for: Atraumatic Nose (Internal): Positive for: Normal Inspection Neck: Positive for: Normal Range of Motion, Other (intact ROM, no midline tenderness, no nuchal rigidity). Negative for: Meningeal Signs, MIDLINE TENDERNESS, Paraspinal Tenderness, Trachea Midline Respiratory/Chest: Positive for: Clear to Auscultation, Good Air Exchange, Other (CTA b/l, no w/r/r, no accessory muscle use noted). Negative for: Respiratory Distress, Accessory Muscle Use Cardiovascular: Positive for: Regular Rate and Rhythm, Normal S1, S2. Negative for: Murmurs Abdomen: Positive for: Tenderness (Mild TTP on lower abdomen at incision site, thierno dry, intact, no erythema), Distention (slight distention), Other ( colostomy bag noted drainage dark brown fecal matter; hypoactive bowel sounds; [address], draining SS fluid - 30 cc overnight). Negative for: Peritoneal Signs, Rebound, Guarding, Mass/Organomegaly Back: Positive for: Normal Inspection. Negative for: CVA Tenderness, Midline Tenderness, Paraspinal Tenderness Upper Extremity: Positive for: Normal Inspection, Normal ROM, NORMAL PULSES. Negative for: Cyanosis, Edema Lower Extremity: Positive for: Normal Inspection, NORMAL PULSES, Normal ROM, Neurovascularly Intact. Negative for: Edema Neurological: Positive for: GCS=15, CN II-XII Intact, Speech Normal Skin: Positive for: Warm, Dry, Normal Color, Other (cap refill ~ 1sec, no ulcerations, no petechiae). Negative for: Rashes Psychiatric: Positive for: Alert, Other (oriented to self and place only) - Medications Active Medications: Active Medications Generic Name Dose Route Start Last Admin Trade Name Freq PRN Reason Stop Dose Admin Alprazolam 0.25 mg 06/29/17 19:28 Xanax PO 07/06/17 19:29 BID PRN Anxiety Protocol Aspirin 81 mg 06/30/17 10:00 Ecotrin PO DAILY [facility] Clopidogrel Bisulfate 75 mg 06/30/17 10:00 Plavix PO DAILY [facility] Furosemide 20 mg 06/30/17 10:00 Lasix PO DAILY A[facility] Heparin Sodium (Porcine) 5,000 units 06/30/17 08:45 07/02/17 05:46 Heparin SC 5,000 units Q8 ALEX Administration Protocol Home Med 500 unit 06/30/17 18:00 Home Med PO BID ALEX Home Med 8 unit 06/30/17 22:00 Home Med PO HS ALEX Hydromorphone HCl 0.5 mg 06/29/17 21:51 07/01/17 21:00 Dilaudid IVP 0.5 mg Q3H PRN Administration Pain, Mild (1-3) Meropenem 50 mls @ 100 mls/hr 06/30/17 10:00 07/01/17 21:46 Merrem Iv 1 Gm Premix IVPB 100 mls/hr Q12 ALEX Administration Protocol Lactated Ringer's 1,000 mls @ 70 mls/hr 07/01/17 07:23 07/01/17 21:30 Lactated Ringer's IV 70 mls/hr .[id number] ALEX Administration Potassium Chloride 20 meq in 100 mls @ 50 mls/hr 07/02/17 08:15 Potassium Chloride 20 Meq/100 Ml IVPB 07/02/17 12:14 Q2H ALEX Sodium Phosphate 15 mmole/ 255 mls @ 42.5 mls/hr 07/02/17 08:29 Sodium Chloride IVPB 07/02/17 14:28 ONCE ONE Insulin Human Regular 0 units 07/01/17 12:00 07/02/17 05:55 Humulin R Low SC Not Given Q6 [facility] Protocol Levalbuterol HCl 0.63 mg 06/30/17 08:10 07/02/17 07:24 Xopenex IH 0.63 mg ALEX Administration Metoprolol Tartrate 12.5 mg 06/29/17 20:00 06/30/17 10:31 Lopressor PO Not Given DAILY [facility] Metoprolol Tartrate 2.5 mg 07/01/17 10:00 07/02/17 04:35 Lopressor IVP 2.5 mg Q6H ALEX Administration Montelukast Sodium 10 mg 06/30/17 10:00 06/30/17 10:32 Singulair PO Not Given DAILY [facility] Nortriptyline HCl 10 mg 06/30/17 10:00 06/30/17 10:32 Pamelor PO Not Given DAILY [facility] Ondansetron HCl 4 mg 06/29/17 21:51 Zofran Inj IVP Q4H PRN Nausea/Vomiting Oxybutynin Chloride 5 mg 06/29/17 22:00 Ditropan Tab PO HS [facility] Pantoprazole Sodium 40 mg 06/30/17 10:00 07/01/17 09:44 Protonix Inj IVP 40 mg DAILY [facility]LEX Administration - Patient Studies Lab Studies: Microbiology Studies 06/30/17 14:15 Urine Culture - Final Urine,Muir No Growth (<1,000 CFU/ML) 06/30/17 00:30 MRSA Culture (Admit) - Final Nose MRSA NOT DETECTED Lab Studies 07/02/17 07/02/17 07/02/17 Range/Units 08:14 06:30 06:30 WBC (4.5-11.0) 10^3/ul RBC (3.5-6.1) 10^6/uL Hgb (14.0-18.0) g/dL Hct (42.0-52.0) % MCV (80.0-105.0) fl MCH (25.0-35.0) pg MCHC (31.0-37.0) g/dl RDW (11.5-14.5) % Plt Count (120.0-450.0) 10^3/uL MPV (7.0-11.0) fl Gran % (50.0-68.0) % Lymph % (Auto) (22.0-35.0) % [place] % (Auto) (1.0-6.0) % Eos % (Auto) (1.5-5.0) % Baso % (Auto) (0.0-3.0) % Gran # (1.4-6.5) Lymph # (Auto) (1.2-3.4) [place] # (Auto) (0.1-0.6) Eos # (Auto) (0.0-0.7) Baso # (Auto) (0.0-2.0) K/mm3 pCO2 (35-45) mm/Hg pO2 (80-100) mm/Hg HCO3 (21-28) mmol/L ABG pH (7.35-7.45) ABG Total CO2 (22-28) mmol.L ABG O2 Saturation (95-98) % ABG O2 Content (15-23) ML/dl ABG Base Excess (-2.0-3.0) mmol/L ABG Hemoglobin (11.7-17.4) g/dL ABG Carboxyhemoglobin (0.5-1.5) % POC ABG HHb (Measured) (0-5) % ABG Methemoglobin (0.0-3.0) % ABG O2 Capacity (16-24) mL/dl Hgb O2 Saturation (95.0-98.0) % FiO2 % Sodium 136 (132-148) mmol/L Potassium 3.1 L (3.6-5.0) mmol/L Chloride 100 (98-107) mmol/L Carbon Dioxide 29 (21-33) mmol/L Anion Gap 9 L (10-20) BUN 10 (7-21) mg/dL Creatinine 0.8 (0.8-1.5) mg/dl Est GFR ( Amer) > 60 Est GFR (Non-Af Amer) > 60 POC Glucose (mg/dL) 119 H (65-110) mg/dL Random Glucose 119 H (70-110) mg/dL Calcium 8.4 (8.4-10.5) mg/dL Phosphorus 2.1 L (2.5-4.5) mg/dL Magnesium 1.9 (1.7-2.2) mg/dL Total Bilirubin 1.1 (0.2-1.3) mg/dL AST 24 (17-59) U/L ALT 25 (7-56) U/L Alkaline Phosphatase 86 (38-126) U/L Total Protein 6.1 (5.8-8.3) g/dL Albumin 3.0 (3.0-4.8) g/dL Globulin 3.1 gm/dL Albumin/Globulin Ratio 1.0 L (1.1-1.8) 07/02/17 07/02/17 07/02/17 Range/Units 06:30 05:52 00:05 WBC 7.3 (4.5-11.0) 10^3/ul RBC 3.57 (3.5-6.1) 10^6/uL Hgb 10.1 L (14.0-18.0) g/dL Hct 31.1 L (42.0-52.0) % MCV 87.1 (80.0-105.0) fl MCH 28.3 (25.0-35.0) pg MCHC 32.5 (31.0-37.0) g/dl RDW 14.2 (11.5-14.5) % Plt Count 146 (120.0-450.0) 10^3/uL MPV 10.0 (7.0-11.0) fl Gran % 83.7 H (50.0-68.0) % Lymph % (Auto) 10.7 L (22.0-35.0) % [place] % (Auto) 3.6 (1.0-6.0) % Eos % (Auto) 1.9 (1.5-5.0) % Baso % (Auto) 0.1 (0.0-3.0) % Gran # 6.08 (1.4-6.5) Lymph # (Auto) 0.8 L (1.2-3.4) [place] # (Auto) 0.3 (0.1-0.6) Eos # (Auto) 0.1 (0.0-0.7) Baso # (Auto) 0.01 (0.0-2.0) K/mm3 pCO2 (35-45) mm/Hg pO2 (80-100) mm/Hg HCO3 (21-28) mmol/L ABG pH (7.35-7.45) ABG Total CO2 (22-28) mmol.L ABG O2 Saturation (95-98) % ABG O2 Content (15-23) ML/dl ABG Base Excess (-2.0-3.0) mmol/L ABG Hemoglobin (11.7-17.4) g/dL ABG Carboxyhemoglobin (0.5-1.5) % POC ABG HHb (Measured) (0-5) % ABG Methemoglobin (0.0-3.0) % ABG O2 Capacity (16-24) mL/dl Hgb O2 Saturation (95.0-98.0) % FiO2 % Sodium (132-148) mmol/L Potassium (3.6-5.0) mmol/L Chloride (98-107) mmol/L Carbon Dioxide (21-33) mmol/L Anion Gap (10-20) BUN (7-21) mg/dL Creatinine (0.8-1.5) mg/dl Est GFR ( Amer) Est GFR (Non-Af Amer) POC Glucose (mg/dL) 114 H 129 H (65-110) mg/dL Random Glucose (70-110) mg/dL Calcium (8.4-10.5) mg/dL Phosphorus (2.5-4.5) mg/dL Magnesium (1.7-2.2) mg/dL Total Bilirubin (0.2-1.3) mg/dL AST (17-59) U/L ALT (7-56) U/L Alkaline Phosphatase (38-126) U/L Total Protein (5.8-8.3) g/dL Albumin (3.0-4.8) g/dL Globulin gm/dL Albumin/Globulin Ratio (1.1-1.8) 07/01/17 07/01/17 07/01/17 Range/Units 21:05 17:45 11:19 WBC (4.5-11.0) 10^3/ul RBC (3.5-6.1) 10^6/uL Hgb (14.0-18.0) g/dL Hct (42.0-52.0) % MCV (80.0-105.0) fl MCH (25.0-35.0) pg MCHC (31.0-37.0) g/dl RDW (11.5-14.5) % Plt Count (120.0-450.0) 10^3/uL MPV (7.0-11.0) fl Gran % (50.0-68.0) % Lymph % (Auto) (22.0-35.0) % [place] % (Auto) (1.0-6.0) % Eos % (Auto) (1.5-5.0) % Baso % (Auto) (0.0-3.0) % Gran # (1.4-6.5) Lymph # (Auto) (1.2-3.4) [place] # (Auto) (0.1-0.6) Eos # (Auto) (0.0-0.7) Baso # (Auto) (0.0-2.0) K/mm3 pCO2 42 (35-45) mm/Hg pO2 106.0 H (80-100) mm/Hg HCO3 26.6 (21-28) mmol/L ABG pH 7.41 (7.35-7.45) ABG Total CO2 27.9 (22-28) mmol.L ABG O2 Saturation 99.2 H (95-98) % ABG O2 Content 16.2 (15-23) ML/dl ABG Base Excess 1.7 (-2.0-3.0) mmol/L ABG Hemoglobin 11.8 (11.7-17.4) g/dL ABG Carboxyhemoglobin 1.6 H (0.5-1.5) % POC ABG HHb (Measured) 0.8 (0-5) % ABG Methemoglobin 0.7 (0.0-3.0) % ABG O2 Capacity 16.3 (16-24) mL/dl Hgb O2 Saturation 96.8 (95.0-98.0) % FiO2 35.0 % Sodium (132-148) mmol/L Potassium (3.6-5.0) mmol/L Chloride (98-107) mmol/L Carbon Dioxide (21-33) mmol/L Anion Gap (10-20) BUN (7-21) mg/dL Creatinine (0.8-1.5) mg/dl Est GFR ( Amer) Est GFR (Non-Af Amer) POC Glucose (mg/dL) 105 134 H (65-110) mg/dL Random Glucose (70-110) mg/dL Calcium (8.4-10.5) mg/dL Phosphorus (2.5-4.5) mg/dL Magnesium (1.7-2.2) mg/dL Total Bilirubin (0.2-1.3) mg/dL AST (17-59) U/L ALT (7-56) U/L Alkaline Phosphatase (38-126) U/L Total Protein (5.8-8.3) g/dL Albumin (3.0-4.8) g/dL Globulin gm/dL Albumin/Globulin Ratio (1.1-1.8) Laboratory Results - last 24 hr 07/01/17 07/01/17 07/01/17 11:19 17:45 21:05 WBC RBC Hgb Hct MCV MCH MCHC RDW Plt Count MPV Gran % Lymph % (Auto) [place] % (Auto) Eos % (Auto) Baso % (Auto) Gran # Lymph # (Auto) [place] # (Auto) Eos # (Auto) Baso # (Auto) pCO2 42 pO2 106.0 H HCO3 26.6 ABG pH 7.41 ABG Total CO2 27.9 ABG O2 Saturation 99.2 H ABG O2 Content 16.2 ABG Base Excess 1.7 ABG Hemoglobin 11.8 ABG Carboxyhemoglobin 1.6 H POC ABG HHb (Measured) 0.8 ABG Methemoglobin 0.7 ABG O2 Capacity 16.3 Hgb O2 Saturation 96.8 FiO2 35.0 Sodium Potassium Chloride Carbon Dioxide Anion Gap BUN Creatinine Est GFR ( Amer) Est GFR (Non-Af Amer) POC Glucose (mg/dL) 134 H 105 Random Glucose Calcium Phosphorus Magnesium Total Bilirubin AST ALT Alkaline Phosphatase Total Protein Albumin Globulin Albumin/Globulin Ratio 07/02/17 07/02/17 07/02/17 00:05 05:52 06:30 WBC 7.3 RBC 3.57 Hgb 10.1 L Hct 31.1 L MCV 87.1 MCH 28.3 MCHC 32.5 RDW 14.2 Plt Count 146 MPV 10.0 Gran % 83.7 H Lymph % (Auto) 10.[address] [place] % (Auto) 3.6 Eos % (Auto) 1.9 Baso % (Auto) 0.1 Gran # 6.08 Lymph # (Auto) 0.[address] [place] # (Auto) 0.3 Eos # (Auto) 0.1 Baso # (Auto) 0.01 pCO2 pO2 HCO3 ABG pH ABG Total CO2 ABG O2 Saturation ABG O2 Content ABG Base Excess ABG Hemoglobin ABG Carboxyhemoglobin POC ABG HHb (Measured) ABG Methemoglobin ABG O2 Capacity Hgb O2 Saturation FiO2 Sodium Potassium Chloride Carbon Dioxide Anion Gap BUN Creatinine Est GFR ( Amer) Est GFR (Non-Af Amer) POC Glucose (mg/dL) 129 H 114 H Random Glucose Calcium Phosphorus Magnesium Total Bilirubin AST ALT Alkaline Phosphatase Total Protein Albumin Globulin Albumin/Globulin Ratio 07/02/17 07/02/17 07/02/17 06:30 06:30 08:14 WBC RBC Hgb Hct MCV MCH MCHC RDW Plt Count MPV Gran % Lymph % (Auto) [place] % (Auto) Eos % (Auto) Baso % (Auto) Gran # Lymph # (Auto) [place] # (Auto) Eos # (Auto) Baso # (Auto) pCO2 pO2 HCO3 ABG pH ABG Total CO2 ABG O2 Saturation ABG O2 Content ABG Base Excess ABG Hemoglobin ABG Carboxyhemoglobin POC ABG HHb (Measured) ABG Methemoglobin ABG O2 Capacity Hgb O2 Saturation FiO2 Sodium 136 Potassium 3.1 L Chloride 100 Carbon Dioxide 29 Anion Gap 9 L BUN 10 Creatinine 0.8 Est GFR ( Amer) > 60 Est GFR (Non-Af Amer) > 60 POC Glucose (mg/dL) 119 H Random Glucose 119 H Calcium 8.4 Phosphorus 2.1 L Magnesium 1.9 Total Bilirubin 1.1 AST 24 ALT 25 Alkaline Phosphatase 86 Total Protein 6.1 Albumin 3.0 Globulin 3.1 Albumin/Globulin Ratio 1.0 L Fingerstick Blood Sugar Results: 114 Review of Systems - Review of Systems Systems not reviewed;Unavailable: Altered Mental Status Critical Care Progress Note - Nutrition Nutrition: Nutrition Category Date Time Status NPO Diet [DIET] Diets 06/29/17 Breakfast Ordered Assessment/Plan - Assessment and Plan (Free Text) Assessment: 77 M history of stage IV mantle cell lymphoma, lung cancer, CAD s/p stent placement who presented to the ED with an acute abdomen 2/2 perforated sigmoid diverticulitis, s/p Milli procedure 06/30, admitted to ICU for hypoxemic respiratory failure s/p surgery. Pt successfully extubated on NC, currently NPO , advance as per surgery: Neuro -Alert, awake, oriented to person, place - Mild delirium, likely ICU related Cardiovascular -Maintain MAP >65 -Aspirin and Plavix on hold as per general surgery -Lopressor prn Pulmonary -Maintain SpO2>92% -Continue with Pulmonary toilet -Incentive spirometry -NC -Cetacaine spray -Continue with xopenex -Chest PT Gastrointestinal -NPO -Monitor KERI drainage/OGT drainage -Continue with protonix -Continue with merrem as per ID Renal -Maintain euvolemia -Replete electrolytes as needed -Hypokalemic and hypomagnesemic today, repleted. -UO 1400/12 hrs, adequate -Monitor I&O Infectious disease -Afebrile, no leukocytosis -Continue with merrem Endocrine -Maintain normothermia and euglycemia -ISS-Medium, continue with accuchecks Hematologic -SCDs and Heparin for DVT prophylaxis Musculoskeletal -OOB to chair -Physical therapy -Continue with plan for early mobility PPX: heparin sq, protonix Case seen and discussed with attending, Dr Winters. Torri Moore PGY1 - Date & Time Date: 07/02/17 Time: 10:56 <Gil Winters - Last Filed: 07/02/17 11:19> CCU Objective - Vital Signs / Intake & Output Vital Signs (Last 4 hours): Vital Signs Pulse BP 07/02/17 11:04 88 131/81 Intake and Output (Last 8hrs): Intake & Output 07/01/17 07/02/17 07/02/17 22:59 06:59 14:59 Intake Total 1150 890 Output Total 873 1460 Balance 277 -570 Weight 157 lb 9.6 oz Intake: IV 1150 890 Distal Port 50 Right Subclavian 1150 840 Oral 0 0 Output: Drainage 148 60 Right Abdomen 148 60 Urine 725 1400 Urethral (Muir) 725 1400 Other: # Bowel Movements 0 0 - Medications Active Medications: Active Medications Generic Name Dose Route Start Last Admin Trade Name Freq PRN Reason Stop Dose Admin Alprazolam 0.25 mg 06/29/17 19:28 Xanax PO 07/06/17 19:29 BID PRN Anxiety Protocol Aspirin 81 mg 06/30/17 10:00 Ecotrin PO DAILY [facility] Clopidogrel Bisulfate 75 mg 06/30/17 10:00 Plavix PO DAILY [facility] Furosemide 20 mg 06/30/17 10:00 Lasix PO DAILY [facility] Heparin Sodium (Porcine) 5,000 units 06/30/17 08:45 07/02/17 05:46 Heparin SC 5,000 units Q8 ALEX Administration Protocol Home Med 500 unit 06/30/17 18:00 Home Med PO BID ALEX Home Med 8 unit 06/30/17 22:00 Home Med PO HS [facility]LEX Hydromorphone HCl 0.5 mg 06/29/17 21:51 07/01/17 21:00 Dilaudid IVP 0.5 mg Q3H PRN Administration Pain, Mild (1-3) Lactated Ringer's 1,000 mls @ 70 mls/hr 07/01/17 07:23 07/01/17 21:30 Lactated Ringer's IV 70 mls/hr .[id number] ALEX Administration Potassium Chloride 20 meq in 100 mls @ 50 mls/hr 07/02/17 08:15 07/02/17 08: 51 Potassium Chloride 20 Meq/100 Ml IVPB 07/02/17 12:14 50 mls/hr Q2H ALEX Administration Sodium Phosphate 15 mmole/ 255 mls @ 42.5 mls/hr 07/02/17 08:29 07/02/17 09: 34 Sodium Chloride IVPB 07/02/17 14:28 42.5 mls/hr ONCE ONE Administration Meropenem 50 mls @ 100 mls/hr 07/02/17 14:00 Merrem Iv 1 Gm Premix IVPB Q8 [facility] Protocol Insulin Human Regular 0 units 07/01/17 12:00 07/02/17 05:55 Humulin R Low SC Not Given Q6 [facility] Protocol Levalbuterol HCl 0.63 mg 06/30/17 08:10 07/02/17 07:24 Xopenex IH 0.63 mg [facility] Administration Metoprolol Tartrate 12.5 mg 06/29/17 20:00 06/30/17 10:31 Lopressor PO Not Given DAILY [facility] Metoprolol Tartrate 2.5 mg 07/01/17 10:00 07/02/17 11:04 Lopressor IVP 2.5 mg Q6H ALEX Administration Montelukast Sodium 10 mg 06/30/17 10:00 06/30/17 10:32 Singulair PO Not Given DAILY [facility] Nortriptyline HCl 10 mg 06/30/17 10:00 06/30/17 10:32 Pamelor PO Not Given DAILY [facility] Ondansetron HCl 4 mg 06/29/17 21:51 Zofran Inj IVP Q4H PRN Nausea/Vomiting Oxybutynin Chloride 5 mg 06/29/17 22:00 Ditropan Tab PO HS [facility] Pantoprazole Sodium 40 mg 06/30/17 10:00 07/02/17 11:04 Protonix Inj IVP 40 mg DAILY [facility]LEX Administration - Patient Studies Lab Studies: Microbiology Studies 06/30/17 14:15 Urine Culture - Final Urine,Muir No Growth (<1,000 CFU/ML) 06/30/17 00:30 MRSA Culture (Admit) - Final Nose MRSA NOT DETECTED Lab Studies 07/02/17 07/02/17 07/02/17 Range/Units 08:14 06:30 06:30 WBC (4.5-11.0) 10^3/ul RBC (3.5-6.1) 10^6/uL Hgb (14.0-18.0) g/dL Hct (42.0-52.0) % MCV (80.0-105.0) fl MCH (25.0-35.0) pg MCHC (31.0-37.0) g/dl RDW (11.5-14.5) % Plt Count (120.0-450.0) 10^3/uL MPV (7.0-11.0) fl Gran % (50.0-68.0) % Lymph % (Auto) (22.0-35.0) % [place] % (Auto) (1.0-6.0) % Eos % (Auto) (1.5-5.0) % Baso % (Auto) (0.0-3.0) % Gran # (1.4-6.5) Lymph # (Auto) (1.2-3.4) [place] # (Auto) (0.1-0.6) Eos # (Auto) (0.0-0.7) Baso # (Auto) (0.0-2.0) K/mm3 pCO2 (35-45) mm/Hg pO2 (80-100) mm/Hg HCO3 (21-28) mmol/L ABG pH (7.35-7.45) ABG Total CO2 (22-28) mmol.L ABG O2 Saturation (95-98) % ABG O2 Content (15-23) ML/dl ABG Base Excess (-2.0-3.0) mmol/L ABG Hemoglobin (11.7-17.4) g/dL ABG Carboxyhemoglobin (0.5-1.5) % POC ABG HHb (Measured) (0-5) % ABG Methemoglobin (0.0-3.0) % ABG O2 Capacity (16-24) mL/dl Hgb O2 Saturation (95.0-98.0) % FiO2 % Sodium 136 (132-148) mmol/L Potassium 3.1 L (3.6-5.0) mmol/L Chloride 100 (98-107) mmol/L Carbon Dioxide 29 (21-33) mmol/L Anion Gap 9 L (10-20) BUN 10 (7-21) mg/dL Creatinine 0.8 (0.8-1.5) mg/dl Est GFR ( Amer) > 60 Est GFR (Non-Af Amer) > 60 POC Glucose (mg/dL) 119 H (65-110) mg/dL Random Glucose 119 H (70-110) mg/dL Calcium 8.4 (8.4-10.5) mg/dL Phosphorus 2.1 L (2.5-4.5) mg/dL Magnesium 1.9 (1.7-2.2) mg/dL Total Bilirubin 1.1 (0.2-1.3) mg/dL AST 24 (17-59) U/L ALT 25 (7-56) U/L Alkaline Phosphatase 86 (38-126) U/L Total Protein 6.1 (5.8-8.3) g/dL Albumin 3.0 (3.0-4.8) g/dL Globulin 3.1 gm/dL Albumin/Globulin Ratio 1.0 L (1.1-1.8) 07/02/17 07/02/17 07/02/17 Range/Units 06:30 05:52 00:05 WBC 7.3 (4.5-11.0) 10^3/ul RBC 3.57 (3.5-6.1) 10^6/uL Hgb 10.1 L (14.0-18.0) g/dL Hct 31.1 L (42.0-52.0) % MCV 87.1 (80.0-105.0) fl MCH 28.3 (25.0-35.0) pg MCHC 32.5 (31.0-37.0) g/dl RDW 14.2 (11.5-14.5) % Plt Count 146 (120.0-450.0) 10^3/uL MPV 10.0 (7.0-11.0) fl Gran % 83.7 H (50.0-68.0) % Lymph % (Auto) 10.7 L (22.0-35.0) % [place] % (Auto) 3.6 (1.0-6.0) % Eos % (Auto) 1.9 (1.5-5.0) % Baso % (Auto) 0.1 (0.0-3.0) % Gran # 6.08 (1.4-6.5) Lymph # (Auto) 0.8 L (1.2-3.4) [place] # (Auto) 0.3 (0.1-0.6) Eos # (Auto) 0.1 (0.0-0.7) Baso # (Auto) 0.01 (0.0-2.0) K/mm3 pCO2 (35-45) mm/Hg pO2 (80-100) mm/Hg HCO3 (21-28) mmol/L ABG pH (7.35-7.45) ABG Total CO2 (22-28) mmol.L ABG O2 Saturation (95-98) % ABG O2 Content (15-23) ML/dl ABG Base Excess (-2.0-3.0) mmol/L ABG Hemoglobin (11.7-17.4) g/dL ABG Carboxyhemoglobin (0.5-1.5) % POC ABG HHb (Measured) (0-5) % ABG Methemoglobin (0.0-3.0) % ABG O2 Capacity (16-24) mL/dl Hgb O2 Saturation (95.0-98.0) % FiO2 % Sodium (132-148) mmol/L Potassium (3.6-5.0) mmol/L Chloride (98-107) mmol/L Carbon Dioxide (21-33) mmol/L Anion Gap (10-20) BUN (7-21) mg/dL Creatinine (0.8-1.5) mg/dl Est GFR ( Amer) Est GFR (Non-Af Amer) POC Glucose (mg/dL) 114 H 129 H (65-110) mg/dL Random Glucose (70-110) mg/dL Calcium (8.4-10.5) mg/dL Phosphorus (2.5-4.5) mg/dL Magnesium (1.7-2.2) mg/dL Total Bilirubin (0.2-1.3) mg/dL AST (17-59) U/L ALT (7-56) U/L Alkaline Phosphatase (38-126) U/L Total Protein (5.8-8.3) g/dL Albumin (3.0-4.8) g/dL Globulin gm/dL Albumin/Globulin Ratio (1.1-1.8) 07/01/17 07/01/17 07/01/17 Range/Units 21:05 17:45 11:19 WBC (4.5-11.0) 10^3/ul RBC (3.5-6.1) 10^6/uL Hgb (14.0-18.0) g/dL Hct (42.0-52.0) % MCV (80.0-105.0) fl MCH (25.0-35.0) pg MCHC (31.0-37.0) g/dl RDW (11.5-14.5) % Plt Count (120.0-450.0) 10^3/uL MPV (7.0-11.0) fl Gran % (50.0-68.0) % Lymph % (Auto) (22.0-35.0) % [place] % (Auto) (1.0-6.0) % Eos % (Auto) (1.5-5.0) % Baso % (Auto) (0.0-3.0) % Gran # (1.4-6.5) Lymph # (Auto) (1.2-3.4) [place] # (Auto) (0.1-0.6) Eos # (Auto) (0.0-0.7) Baso # (Auto) (0.0-2.0) K/mm3 pCO2 42 (35-45) mm/Hg pO2 106.0 H (80-100) mm/Hg HCO3 26.6 (21-28) mmol/L ABG pH 7.41 (7.35-7.45) ABG Total CO2 27.9 (22-28) mmol.L ABG O2 Saturation 99.2 H (95-98) % ABG O2 Content 16.2 (15-23) ML/dl ABG Base Excess 1.7 (-2.0-3.0) mmol/L ABG Hemoglobin 11.8 (11.7-17.4) g/dL ABG Carboxyhemoglobin 1.6 H (0.5-1.5) % POC ABG HHb (Measured) 0.8 (0-5) % ABG Methemoglobin 0.7 (0.0-3.0) % ABG O2 Capacity 16.3 (16-24) mL/dl Hgb O2 Saturation 96.8 (95.0-98.0) % FiO2 35.0 % Sodium (132-148) mmol/L Potassium (3.6-5.0) mmol/L Chloride (98-107) mmol/L Carbon Dioxide (21-33) mmol/L Anion Gap (10-20) BUN (7-21) mg/dL Creatinine (0.8-1.5) mg/dl Est GFR ( Amer) Est GFR (Non-Af Amer) POC Glucose (mg/dL) 105 134 H (65-110) mg/dL Random Glucose (70-110) mg/dL Calcium (8.4-10.5) mg/dL Phosphorus (2.5-4.5) mg/dL Magnesium (1.7-2.2) mg/dL Total Bilirubin (0.2-1.3) mg/dL AST (17-59) U/L ALT (7-56) U/L Alkaline Phosphatase (38-126) U/L Total Protein (5.8-8.3) g/dL Albumin (3.0-4.8) g/dL Globulin gm/dL Albumin/Globulin Ratio (1.1-1.8) Laboratory Results - last 24 hr 07/01/17 07/01/17 07/01/17 11:19 17:45 21:05 WBC RBC Hgb Hct MCV MCH MCHC RDW Plt Count MPV Gran % Lymph % (Auto) [place] % (Auto) Eos % (Auto) Baso % (Auto) Gran # Lymph # (Auto) [place] # (Auto) Eos # (Auto) Baso # (Auto) pCO2 42 pO2 106.0 H HCO3 26.6 ABG pH 7.41 ABG Total CO2 27.9 ABG O2 Saturation 99.2 H ABG O2 Content 16.2 ABG Base Excess 1.7 ABG Hemoglobin 11.8 ABG Carboxyhemoglobin 1.6 H POC ABG HHb (Measured) 0.8 ABG Methemoglobin 0.7 ABG O2 Capacity 16.3 Hgb O2 Saturation 96.8 FiO2 35.0 Sodium Potassium Chloride Carbon Dioxide Anion Gap BUN Creatinine Est GFR ( Amer) Est GFR (Non-Af Amer) POC Glucose (mg/dL) 134 H 105 Random Glucose Calcium Phosphorus Magnesium Total Bilirubin AST ALT Alkaline Phosphatase Total Protein Albumin Globulin Albumin/Globulin Ratio 07/02/17 07/02/17 07/02/17 00:05 05:52 06:30 WBC 7.3 RBC 3.57 Hgb 10.1 L Hct 31.1 L MCV 87.1 MCH 28.3 MCHC 32.5 RDW 14.2 Plt Count 146 MPV 10.0 Gran % 83.7 H Lymph % (Auto) 10.[address] [place] % (Auto) 3.6 Eos % (Auto) 1.9 Baso % (Auto) 0.1 Gran # 6.08 Lymph # (Auto) 0.[address] [place] # (Auto) 0.3 Eos # (Auto) 0.1 Baso # (Auto) 0.01 pCO2 pO2 HCO3 ABG pH ABG Total CO2 ABG O2 Saturation ABG O2 Content ABG Base Excess ABG Hemoglobin ABG Carboxyhemoglobin POC ABG HHb (Measured) ABG Methemoglobin ABG O2 Capacity Hgb O2 Saturation FiO2 Sodium Potassium Chloride Carbon Dioxide Anion Gap BUN Creatinine Est GFR ( Amer) Est GFR (Non-Af Amer) POC Glucose (mg/dL) 129 H 114 H Random Glucose Calcium Phosphorus Magnesium Total Bilirubin AST ALT Alkaline Phosphatase Total Protein Albumin Globulin Albumin/Globulin Ratio 07/02/17 07/02/17 07/02/17 06:30 06:30 08:14 WBC RBC Hgb Hct MCV MCH MCHC RDW Plt Count MPV Gran % Lymph % (Auto) [place] % (Auto) Eos % (Auto) Baso % (Auto) Gran # Lymph # (Auto) [place] # (Auto) Eos # (Auto) Baso # (Auto) pCO2 pO2 HCO3 ABG pH ABG Total CO2 ABG O2 Saturation ABG O2 Content ABG Base Excess ABG Hemoglobin ABG Carboxyhemoglobin POC ABG HHb (Measured) ABG Methemoglobin ABG O2 Capacity Hgb O2 Saturation FiO2 Sodium 136 Potassium 3.1 L Chloride 100 Carbon Dioxide 29 Anion Gap 9 L BUN 10 Creatinine 0.8 Est GFR ( Amer) > 60 Est GFR (Non-Af Amer) > 60 POC Glucose (mg/dL) 119 H Random Glucose 119 H Calcium 8.4 Phosphorus 2.1 L Magnesium 1.9 Total Bilirubin 1.1 AST 24 ALT 25 Alkaline Phosphatase 86 Total Protein 6.1 Albumin 3.0 Globulin 3.1 Albumin/Globulin Ratio 1.0 L Critical Care Progress Note - Nutrition Nutrition: Nutrition Category Date Time Status NPO Diet [DIET] Diets 06/29/17 Breakfast Ordered Attending/Attestation - Attestation I have personally seen and examined this patient.: Yes I have fully participated in the care of the patient.: Yes I have reviewed all pertinent clinical information: Yes Notes (Text): 07/02/17 11:14 The patient was seen and examined at the bedside. Patient care was discussed with resident Medical records, lab studies, and imaging were reviewed and management issues were discussed and formulated. Last 24H events reviewed. Agree with above treatment plans as outlined in 's note with addition of the following: Acute Respiratory Insufficiency \ Hypoxemia \ Bowel Perforation \ Sepsis \ Peritonitis \ PNA \ DM -hemodynamic monitoring to maintain MAP>65; continue metoprolol as per cardiology team -o2 supplementation and Bipap PRN to maintain Spo2 90-92 Pao2>60 -deescalate to NC this morning; tolerating well -monitor airway closely -continue Abx as per ID team and f\u cultures -f\u Bun\Cr and U\o; continue IVF with LR; monitor and replace e-lites -NPO diet and aspiration precautions; advance diet as per surgical team -ISS and BGM monitoring -PT\OT eval for OOB -DVT \ PUD prophylaxis CCM f\u time 25min
[2017-07-02] MEDS ORDERED: TETRACAINE/BENZOCAINE/BUTAMBEN 20 GM SPRAY TP SCH (09:00)
--- NOTE | 2017-07-02 09:32 | CON ---
DATE: 06/30/2017 GASTROENTEROLOGY CONSULTATION This consult is for Dr. Casiano, Dr. Ramirez is covering. HISTORY OF PRESENT ILLNESS: I have personally examined this patient. I agree with Kiara Dickerson APN assessment and recommendations. This patient came to the emergency room with an acute abdomen, was found to have free air in the peritoneum on CAT scan. He underwent an exploratory laparotomy and found to have perforating diverticulitis, subsequently had a Milli's procedure with diverting colostomy. Postoperatively, he is stable hemodynamically. The colostomy site looks healthy, hemodynamically stable. RECOMMENDATIONS: 1. Continue IV antibiotics. 2. Continue postop care. 3. His prognosis is guarded, given his other comorbidities including a history of stage IV mantle cell lymphoma. Favian Ramirez MD
[2017-07-02] MEDS: TETRACAINE/BENZOCAINE/BUTAMBEN 20 GM SPRAY TP SCH ×2 (10:30→19:06)
--- NOTE | 2017-07-02 10:35 | CP.PCM.PN ---
Subjective - Date & Time of Evaluation Date of Evaluation: 07/02/17 Time of Evaluation: 09:50 - Subjective Subjective: Patient remains extubated, no fevers, comfortable on a chair, no nausea, no diarrhea, still with abdominal pain. Objective - Vital Signs/Intake and Output Vital Signs (last 24 hours): Temp Pulse Resp BP Pulse Ox 98 F 81 14 158/93 H 100 07/02/17 04:00 07/02/17 06:30 07/02/17 06:30 07/02/17 06:00 07/02/17 06:30 Intake and Output: 07/02/17 07/02/17 06:59 18:59 Intake Total 890 Output Total 1460 Balance -570 - Medications Medications: Current Medications Alprazolam (Xanax) 0.25 mg PO BID PRN; Protocol PRN Reason: Anxiety Stop: 07/06/17 19:29 Aspirin (Ecotrin) 81 mg PO DAILY [facility] Clopidogrel Bisulfate (Plavix) 75 mg PO DAILY [facility] Furosemide (Lasix) 20 mg PO DAILY [facility] Heparin Sodium (Porcine) (Heparin) 5,000 units SC Q8 [facility] PRN Reason: Protocol Last Admin: 07/02/17 05:46 Dose: 5,000 units Home Med (Home Med) 500 unit PO BID [facility] Home Med (Home Med) 8 unit PO HS [facility] Hydromorphone HCl (Dilaudid) 0.5 mg IVP Q3H PRN PRN Reason: Pain, Mild (1-3) Last Admin: 07/01/17 21:00 Dose: 0.5 mg Lactated Ringer's (Lactated Ringer's) 1,000 mls @ 70 mls/hr IV .[id number] [facility] Last Admin: 07/01/17 21:30 Dose: 70 mls/hr Potassium Chloride (Potassium Chloride 20 Meq/100 Ml) 20 meq in 100 mls @ 50 mls/hr IVPB Q2H [facility] Stop: 07/02/17 12:14 Last Admin: 07/02/17 08:51 Dose: 50 mls/hr Sodium Phosphate 15 mmole/ (Sodium Chloride) 255 mls @ 42.5 mls/hr IVPB ONCE ONE Stop: 07/02/17 14:28 Last Admin: 07/02/17 09:34 Dose: 42.5 mls/hr Meropenem (Merrem Iv 1 Gm Premix) 50 mls @ 100 mls/hr IVPB Q8 [facility] PRN Reason: Protocol Insulin Human Regular (Humulin R Low) 0 units SC Q6 [facility] PRN Reason: Protocol Last Admin: 07/02/17 05:55 Dose: Not Given Levalbuterol HCl (Xopenex) 0.63 mg 0800,2000 [facility] Last Admin: 07/02/17 07:24 Dose: 0.63 mg Metoprolol Tartrate (Lopressor) 12.5 mg PO DAILY [facility] Last Admin: 06/30/17 10:31 Dose: Not Given Metoprolol Tartrate (Lopressor) 2.5 mg IVP Q6H [facility] Last Admin: 07/02/17 04:35 Dose: 2.5 mg Montelukast Sodium (Singulair) 10 mg PO DAILY [facility] Last Admin: 06/30/17 10:32 Dose: Not Given Nortriptyline HCl (Pamelor) 10 mg PO DAILY [facility] Last Admin: 06/30/17 10:32 Dose: Not Given Ondansetron HCl (Zofran Inj) 4 mg IVP Q4H PRN PRN Reason: Nausea/Vomiting Oxybutynin Chloride (Ditropan Tab) [address] [facility] Pantoprazole Sodium (Protonix Inj) 40 mg IVP DAILY [facility] Last Admin: 07/01/17 09:44 Dose: 40 mg - Labs Labs: 07/02/17 06:30 07/02/17 06:30 PT 13.7 SECONDS (9.4-12.5) H 06/30/17 12:00 INR 1.19 (0.93-1.08) H 06/30/17 12:00 APTT 28.5 Seconds (25.1-36.5) 06/30/17 12:00 - Constitutional Appears: Non-toxic, Chronically Ill - Head Exam Head Exam: NORMAL INSPECTION - ENT Exam ENT Exam: Mucous Membranes Moist - Neck Exam Neck Exam: absent: Lymphadenopathy, Meningismus - Respiratory Exam Respiratory Exam: Decreased Breath Sounds - Cardiovascular Exam Cardiovascular Exam: +S1, +S2 - GI/Abdominal Exam GI & Abdominal Exam: Soft. absent: Tenderness Additional comments: left sided colostomy in place, right side KERI drain in place with serosanguinous fluid; dressings in place Assessment and Plan - Assessment and Plan (Free Text) Plan: Assessment Severe sepsis S/P acute renal failure S/P ventilator-dependent respiratory failure due to acute perforated sigmoid colon with associated diverticulitis S/ P exploratory laparotomy, sigmoidectomy and colostomy POD #3 history of sepsis due to acute bronchitis, with systemic viral illness history of UTI with E. 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
--- NOTE | 2017-07-02 12:39 | CP.PCM.PN ---
Subjective - Date & Time of Evaluation Date of Evaluation: 07/02/17 Time of Evaluation: 09:00 - Subjective Subjective: PGY-[address] [place] [address] Myers's service Patient seen and examined at bedside in the ICU. No acute events overnight. Patient was extubated yesterday and off bipap this AM. He was placed on nasal cannula. Patient is tolerating it well. He alert, awake, and oriented. He reports pain in his throat most like due to intubation. He states that he is not having any abd pain. He denies cough, fever, chills, nausea, vomiting, leg swelling. Objective - Vital Signs/Intake and Output Vital Signs (last 24 hours): Temp Pulse Resp BP Pulse Ox 98 F 86 14 131/81 100 07/02/17 04:00 07/02/17 11:40 07/02/17 06:30 07/02/17 11:04 07/02/17 11:40 Intake and Output: 07/02/17 07/02/17 06:59 18:59 Intake Total 890 Output Total 1460 Balance -570 - Medications Medications: Current Medications Alprazolam (Xanax) 0.25 mg PO BID PRN; Protocol PRN Reason: Anxiety Stop: 07/06/17 19:29 Aspirin (Ecotrin) 81 mg PO DAILY [facility] Clopidogrel Bisulfate (Plavix) 75 mg PO DAILY [facility] Furosemide (Lasix) 20 mg PO DAILY [facility] Heparin Sodium (Porcine) (Heparin) 5,000 units SC Q8 [facility] PRN Reason: Protocol Last Admin: 07/02/17 05:46 Dose: 5,000 units Home Med (Home Med) 500 unit PO BID [facility] Home Med (Home Med) 8 unit PO HS [facility] Hydromorphone HCl (Dilaudid) 0.5 mg IVP Q3H PRN PRN Reason: Pain, Mild (1-3) Last Admin: 07/01/17 21:00 Dose: 0.5 mg Lactated Ringer's (Lactated Ringer's) 1,000 mls @ 70 mls/hr IV .[id number] [facility] Last Admin: 07/01/17 21:30 Dose: 70 mls/hr Sodium Phosphate 15 mmole/ (Sodium Chloride) 255 mls @ 42.5 mls/hr IVPB ONCE ONE Stop: 07/02/17 14:28 Last Admin: 07/02/17 09:34 Dose: 42.5 mls/hr Meropenem (Merrem Iv 1 Gm Premix) 50 mls @ 100 mls/hr IVPB Q8 [facility] PRN Reason: Protocol Insulin Human Regular (Humulin R Low) 0 units SC Q6 [facility] PRN Reason: Protocol Last Admin: 07/02/17 05:55 Dose: Not Given Levalbuterol HCl (Xopenex) 0.63 mg 0800,1999 [facility] Last Admin: 07/02/17 07:24 Dose: 0.63 mg Metoprolol Tartrate (Lopressor) 12.5 mg PO DAILY [facility] Last Admin: 06/30/17 10:31 Dose: Not Given Metoprolol Tartrate (Lopressor) 2.5 mg IVP Q6H [facility] Last Admin: 07/02/17 11:04 Dose: 2.5 mg Montelukast Sodium (Singulair) 10 mg PO DAILY [facility] Last Admin: 06/30/17 10:32 Dose: Not Given Nortriptyline HCl (Pamelor) 10 mg PO DAILY [facility] Last Admin: 06/30/17 10:32 Dose: Not Given Ondansetron HCl (Zofran Inj) 4 mg IVP Q4H PRN PRN Reason: Nausea/Vomiting Oxybutynin Chloride (Ditropan Tab) 5 mg PO HS [facility] Pantoprazole Sodium (Protonix Inj) 40 mg IVP DAILY [facility] Last Admin: 07/02/17 11:04 Dose: 40 mg - Labs Labs: 07/02/17 06:30 07/02/17 06:30 PT 13.7 SECONDS (9.4-12.5) H 06/30/17 12:00 INR 1.19 (0.93-1.08) H 06/30/17 12:00 APTT 28.5 Seconds (25.1-36.5) 06/30/17 12:00 - Constitutional Appears: No Acute Distress - Head Exam Head Exam: ATRAUMATIC, NORMOCEPHALIC - Eye Exam Eye Exam: EOMI, Normal appearance - ENT Exam ENT Exam: Mucous Membranes Moist - Respiratory Exam Respiratory Exam: Clear to Ausculation Bilateral, NORMAL BREATHING PATTERN. absent: Rhonchi, Wheezes, Respiratory Distress - Cardiovascular Exam Cardiovascular Exam: REGULAR RHYTHM, +S1, +S2. absent: Tachycardia, Murmur - GI/Abdominal Exam GI & Abdominal Exam: Soft, Tenderness (mild to palpation) Additional comments: incision site clean, dry no drainage, colostomy bag mild serosanganous fluid. KERI maci with serosanganous fluid - Extremities Exam Extremities Exam: Normal Inspection. absent: Pedal Edema, Tenderness - Neurological Exam Neurological Exam: Alert, Awake, Oriented x3 - Skin Skin Exam: Dry, Intact, Normal Color, Warm Assessment and Plan - Assessment and Plan (Free Text) Assessment: 77 M history of stage IV mantle cell lymphoma, lung cancer, CAD s/p stent placement, diabetes, HTN, COPD who presented with an acute abdomen due to perforated sigmoid diverticulitis, s/p Milli procedure, admitted to ICU for hypoxemic respiratory failure s/p surgery. He was successfully extubated on NC. , currently NPO, advance as per surgery. Plan: He is extubated on NC, continue with Pulmonary toilet, Incentive spirometry Cetacaine spray started for throat pain surgery following patient is currently NPO, will advance diet once clear by surgery continue to monitor KERI drainage drainage patient is afebrile without leukocytosis ID cosnulted, Continue with vancomycin and merrem cultures pending cardiology consulted, recommended Lopressor prn will continue to monitor renal status especially while on vancomycin electrolytes replete as needed Hypokalemic and hypomagnesemic today, repleted. continue ISS-Medium, continue with accuchecks SCDs and Heparin for DVT prophylaxis OOB to chair Physical therapy Case reviewedn and discussed with Dr. Myers
[2017-07-02] MEDS ORDERED: Metoprolol 1 mg/ml Inj IVP SCH (13:15)
--- NOTE | 2017-07-02 13:26 | CP.PCM.PN ---
Subjective - Date & Time of Evaluation Date of Evaluation: 07/02/17 Time of Evaluation: 13:22 - Subjective Subjective: Surgery: Dr. Pabon Pt seen and examined. Pt was extubated and is sitting in chair on BIPAP. Pt has complaints of abd pain. No n/v. Objective - Vital Signs/Intake and Output Vital Signs (last 24 hours): Temp Pulse Resp BP Pulse Ox 98 F 86 14 131/81 100 07/02/17 04:00 07/02/17 11:40 07/02/17 06:30 07/02/17 11:04 07/02/17 11:40 Intake and Output: 07/02/17 07/02/17 06:59 18:59 Intake Total 890 Output Total 1460 Balance -570 - Medications Medications: Current Medications Alprazolam (Xanax) 0.25 mg PO BID PRN; Protocol PRN Reason: Anxiety Stop: 07/06/17 19:29 Aspirin (Ecotrin) 81 mg PO DAILY [facility] Clopidogrel Bisulfate (Plavix) 75 mg PO DAILY [facility] Furosemide (Lasix) 20 mg PO DAILY [facility] Heparin Sodium (Porcine) (Heparin) 5,000 units SC Q8 [facility] PRN Reason: Protocol Last Admin: 07/02/17 05:46 Dose: 5,000 units Home Med (Home Med) 500 unit PO BID [facility] Home Med (Home Med) 8 unit PO HS [facility] Hydromorphone HCl (Dilaudid) 0.5 mg IVP Q3H PRN PRN Reason: Pain, Mild (1-3) Last Admin: 07/01/17 21:00 Dose: 0.5 mg Lactated Ringer's (Lactated Ringer's) 1,000 mls @ 70 mls/hr IV .[id number] [facility] Last Admin: 07/01/17 21:30 Dose: 70 mls/hr Sodium Phosphate 15 mmole/ (Sodium Chloride) 255 mls @ 42.5 mls/hr IVPB ONCE ONE Stop: 07/02/17 14:28 Last Admin: 07/02/17 09:34 Dose: 42.5 mls/hr Meropenem (Merrem Iv 1 Gm Premix) 50 mls @ 100 mls/hr IVPB Q8 [facility] PRN Reason: Protocol Potassium Chloride (Potassium Chloride 20 Meq/100 Ml) 20 meq in 100 mls @ 50 mls/hr IVPB ONCE ONE Stop: 07/02/17 15:10 Insulin Human Regular (Humulin R Low) 0 units SC Q6 [facility] PRN Reason: Protocol Last Admin: 07/02/17 05:55 Dose: Not Given Levalbuterol HCl (Xopenex) 0.63 mg 0800,1999 [facility] Last Admin: 07/02/17 07:24 Dose: 0.63 mg Metoprolol Tartrate (Lopressor) 12.5 mg PO DAILY [facility] Last Admin: 06/30/17 10:31 Dose: Not Given Metoprolol Tartrate (Lopressor) 5 mg IVP Q6H [facility] Montelukast Sodium (Singulair) 10 mg PO DAILY [facility] Last Admin: 06/30/17 10:32 Dose: Not Given Nortriptyline HCl (Pamelor) 10 mg PO DAILY [facility] Last Admin: 06/30/17 10:32 Dose: Not Given Ondansetron HCl (Zofran Inj) 4 mg IVP Q4H PRN PRN Reason: Nausea/Vomiting Oxybutynin Chloride (Ditropan Tab) 5 mg PO [facility] Pantoprazole Sodium (Protonix Inj) 40 mg IVP DAILY [facility] Last Admin: 07/02/17 11:04 Dose: 40 mg - Labs Labs: 07/02/17 06:30 07/02/17 06:30 PT 13.7 SECONDS (9.4-12.5) H 06/30/17 12:00 INR 1.19 (0.93-1.08) H 06/30/17 12:00 APTT 28.5 Seconds (25.1-36.5) 06/30/17 12:00 - Constitutional Appears: Non-toxic, No Acute Distress - Head Exam Head Exam: ATRAUMATIC, NORMOCEPHALIC - Eye Exam Eye Exam: EOMI - ENT Exam ENT Exam: Mucous Membranes Moist - Neck Exam Neck Exam: Full ROM - Respiratory Exam Respiratory Exam: NORMAL BREATHING PATTERN. absent: Accessory Muscle Use, Respiratory Distress - GI/Abdominal Exam GI & Abdominal Exam: Soft, Tenderness (mariza-incisional ). absent: Distended, Firm, Guarding, Rigid, Rebound Additional comments: stoma pink and patent - Extremities Exam Extremities Exam: absent: Calf Tenderness, Pedal Edema - Neurological Exam Neurological Exam: Alert, Awake, Oriented x3 Assessment and Plan - Assessment and Plan (Free Text) Assessment: 77M w. diverticulitis, s/p knutson's POD#2 -NGT: 0cc/12hr will d/c -Jak: 30cc x2 /12hr serosang, continue to monitor -will start CLD, monitor stoma output -c/w abx -c/w pain meds -OOB to chair -PT/IS use -AE hose -d/w attending Ester PGY3
[2017-07-02] MEDS: HYDROmorphone 0.5 mg/0.5 ml ISec IVP PRN (13:58)
[2017-07-02] MEDS: Meropenem IV 1 gm in NS 50 ML IVPB SCH ×2 (14:43→21:32)
--- NOTE | 2017-07-02 16:11 | CP.PCM.PN ---
<Kiara Dickerson - Last Filed: 07/02/17 16:11> Subjective - Date & Time of Evaluation Date of Evaluation: 07/02/17 Time of Evaluation: 10:00 - Subjective Subjective: Seen and examined at the bedside earlier today. Patient getting out of bed to chair with PT. Patient did complain of abdominal discomfort moving around. But no acute distress. Denies passing any gas. No stool noted in colostomy except for old blood. Patient denies nausea, vomiting, fever or chills, shortness of breath or chest pain. RU arm extremity ultrasound negative for DVT. Objective - Vital Signs/Intake and Output Vital Signs (last 24 hours): Temp Pulse Resp BP Pulse Ox 98.1 F 80 36 H 138/75 98 07/02/17 12:00 07/02/17 14:00 07/02/17 14:00 07/02/17 14:00 07/02/17 14:00 Intake and Output: 07/02/17 07/02/17 06:59 18:59 Intake Total 890 Output Total 1460 530 Balance -570 -530 - Medications Medications: Current Medications Alprazolam (Xanax) 0.25 mg PO BID PRN; Protocol PRN Reason: Anxiety Stop: 07/06/17 19:29 Aspirin (Ecotrin) 81 mg PO DAILY [facility] Clopidogrel Bisulfate (Plavix) 75 mg PO DAILY [facility] Furosemide (Lasix) 20 mg PO DAILY [facility] Heparin Sodium (Porcine) (Heparin) 5,000 units SC Q8 [facility] PRN Reason: Protocol Last Admin: 07/02/17 14:42 Dose: 5,000 units Home Med (Home Med) 500 unit PO BID [facility] Home Med (Home Med) 8 unit PO HS [facility] Hydromorphone HCl (Dilaudid) 0.5 mg IVP Q3H PRN PRN Reason: Pain, Mild (1-3) Last Admin: 07/02/17 13:58 Dose: 0.5 mg Lactated Ringer's (Lactated Ringer's) 1,000 mls @ 70 mls/hr IV .[id number] [facility] Last Admin: 07/01/17 21:30 Dose: 70 mls/hr Meropenem (Merrem Iv 1 Gm Premix) 50 mls @ 100 mls/hr IVPB Q8 [facility] PRN Reason: Protocol Last Admin: 07/02/17 14:43 Dose: 100 mls/hr Insulin Human Regular (Humulin R Low) 0 units SC Q6 [facility] PRN Reason: Protocol Last Admin: 07/02/17 14:45 Dose: Not Given Levalbuterol HCl (Xopenex) 0.63 mg 799,1999 [facility] Last Admin: 07/02/17 07:24 Dose: 0.63 mg Metoprolol Tartrate (Lopressor) 12.5 mg PO DAILY [facility] Last Admin: 06/30/17 10:31 Dose: Not Given Metoprolol Tartrate (Lopressor) 5 mg IVP Q6 [facility] Montelukast Sodium (Singulair) 10 mg PO DAILY [facility] Last Admin: 06/30/17 10:32 Dose: Not Given Nortriptyline HCl (Pamelor) 10 mg PO DAILY [facility] Last Admin: 06/30/17 10:32 Dose: Not Given Ondansetron HCl (Zofran Inj) 4 mg IVP Q4H PRN PRN Reason: Nausea/Vomiting Oxybutynin Chloride (Ditropan Tab) 5 mg PO HS [facility] Pantoprazole Sodium (Protonix Inj) 40 mg IVP DAILY [facility] Last Admin: 07/02/17 11:04 Dose: 40 mg - Labs Labs: 07/02/17 06:30 07/02/17 06:30 PT 13.7 SECONDS (9.4-12.5) H 06/30/17 12:00 INR 1.19 (0.93-1.08) H 06/30/17 12:00 APTT 28.5 Seconds (25.1-36.5) 06/30/17 12:00 - Constitutional Appears: No Acute Distress - Head Exam Head Exam: NORMOCEPHALIC - Eye Exam Eye Exam: Normal appearance. absent: Scleral icterus - ENT Exam ENT Exam: Mucous Membranes Moist Additional comments: Seen and examined at the bedside earlier today. Patient getting out of bed to chair with PT. Patient did complain of abdominal discomfort moving around. But no acute distress. Denies passing any gas. No stool noted in colostomy except for old blood. Patient denies nausea, vomiting, fever or chills, shortness of breath or chest pain. - Respiratory Exam Respiratory Exam: NORMAL BREATHING PATTERN. absent: Respiratory Distress - Cardiovascular Exam Cardiovascular Exam: +S1, +S2 - GI/Abdominal Exam GI & Abdominal Exam: Soft, Tenderness Additional comments: thierno open to air, no erythema or drainage, KERI Addis 2 with serosanguineous discharge. Colostomy present stoma is pink, colostomy bag has been small amount of liquid brown stool. - Extremities Exam Extremities Exam: absent: Calf Tenderness, Pedal Edema - Neurological Exam Neurological Exam: Alert, Awake, Oriented x3 - Skin Skin Exam: Dry, Warm Assessment and Plan - Assessment and Plan (Free Text) Assessment: Assessment: Acute abdomen status post CT scan found to have free air, likely perforated diverticulitis Status post emergency exploratory laparotomy with Rob's procedure History of stage IV mantle cell lymphoma History of lung cancer status post wedge resection Coronary artery disease status post stents 4 Plan: NPO, IVF Continue IV antibiotics Monitor H&H and for overt GI bleed GI prophylaxis DVT prophylaxis As per surgery and ICU team Seen and discussed with Dr. Casiano. <Lakisha Casiano V - Last Filed: 07/02/17 23:55> Objective - Vital Signs/Intake and Output Vital Signs (last 24 hours): Temp Pulse Resp BP Pulse Ox 98.8 F 80 42 H 109/73 79 L 07/02/17 16:00 07/02/17 19:14 07/02/17 17:08 07/02/17 19:14 07/02/17 16:59 Intake and Output: 07/02/17 07/03/17 18:59 06:59 Output Total 530 Balance -530 - Medications Medications: Current Medications Alprazolam (Xanax) 0.25 mg PO BID PRN; Protocol PRN Reason: Anxiety Stop: 07/06/17 19:29 Aspirin (Ecotrin) 81 mg PO DAILY [facility] Clopidogrel Bisulfate (Plavix) 75 mg PO DAILY [facility] Furosemide (Lasix) 20 mg PO DAILY [facility] Heparin Sodium (Porcine) (Heparin) 5,000 units SC Q8 [facility] PRN Reason: Protocol Last Admin: 07/02/17 21:31 Dose: 5,000 units Home Med (Home Med) 500 unit PO BID [facility] Home Med (Home Med) 8 unit PO HS [facility] Hydromorphone HCl (Dilaudid) 0.5 mg IVP Q3H PRN PRN Reason: Pain, Mild (1-3) Last Admin: 07/02/17 13:58 Dose: 0.5 mg Meropenem (Merrem Iv 1 Gm Premix) 50 mls @ 100 mls/hr IVPB Q8 [facility] PRN Reason: Protocol Last Admin: 07/02/17 21:32 Dose: 100 mls/hr Dextrose/Sodium Chloride (Dextrose 5%/0.45% Ns 1000 Ml) 1,000 mls @ 50 mls/hr IV .Q20H [facility] Last Admin: 07/02/17 21:27 Dose: 50 mls/hr Insulin Human Regular (Humulin R Low) 0 units SC Q6 [facility] PRN Reason: Protocol Last Admin: 07/02/17 19:07 Dose: Not Given Levalbuterol HCl (Xopenex) 0.63 mg IH 0800,1999 [facility] Last Admin: 07/02/17 20:43 Dose: 0.63 mg Metoprolol Tartrate (Lopressor) 12.5 mg PO DAILY [facility] Last Admin: 06/30/17 10:31 Dose: Not Given Metoprolol Tartrate (Lopressor) 5 mg IVP Q6 [facility] Last Admin: 07/02/17 19:14 Dose: 5 mg Montelukast Sodium (Singulair) 10 mg PO DAILY [facility] Last Admin: 06/30/17 10:32 Dose: Not Given Nortriptyline HCl (Pamelor) 10 mg PO DAILY [facility] Last Admin: 06/30/17 10:32 Dose: Not Given Ondansetron HCl (Zofran Inj) 4 mg IVP Q4H PRN PRN Reason: Nausea/Vomiting Oxybutynin Chloride (Ditropan Tab) 5 mg PO [facility] Pantoprazole Sodium (Protonix Inj) 40 mg IVP DAILY [facility] Last Admin: 07/02/17 11:04 Dose: 40 mg - Labs Labs: 07/02/17 06:30 07/02/17 06:30 PT 13.7 SECONDS (9.4-12.5) H 06/30/17 12:00 INR 1.19 (0.93-1.08) H 06/30/17 12:00 APTT 28.5 Seconds (25.1-36.5) 06/30/17 12:00 Attending/Attestation - Attestation I have personally seen and examined this patient.: Yes I have fully participated in the care of the patient.: Yes I have reviewed all pertinent clinical information, including history, physical exam and plan: Yes
--- NOTE | 2017-07-02 16:41 | PN ---
DATE: 07/02/2017 SUBJECTIVE: The patient is seen sitting in the chair. He is awake, he is alert. He complains of abdominal pain. He complains of some shortness of breath. He denies any chest pain. He denies any flatus. PHYSICAL EXAMINATION: GENERAL: Elderly male sitting in chair in the ICU. VITAL SIGNS: Blood pressure 130/76, heart rate 86, respiratory rate 18 to 20, temperature 98. HEENT: Normocephalic, atraumatic, positive pallor. NECK: Supple, no JVD. LUNGS: Bilateral equal air entry, bilateral equal expansion, no rales. CARDIAC: S1 and S2, regular rate and rhythm, no murmur, no rub. ABDOMEN: Obese, distended, p.o. bowel sounds, positive colostomy, positive incisions, positive drain. EXTREMITIES: No lower extremity edema. INTAKE AND OUTPUT: 2039/2332 LABORATORY DATA: WBC 7, hemoglobin 10, hematocrit 31, platelets 146. Sodium 136, potassium 3.1, chloride 100, CO2 of 29. BUN 10, creatinine 0.8. Glucose 119. Calcium 8.4, phosphorus 2.9, magnesium 1.9. AST 24, ALT 25, albumin 3, corrected calcium is 9.1. Cultures, no growth. CURRENT MEDICATIONS: Dilaudid p.r.n., Ecotrin, heparin subcu, insulin, Lopressor 2.5 IV every 6 hours, Merrem 1 g every 8 hours, Protonix 40 IV, Xanax, Xopenex, and Zofran. ASSESSMENT: 1. Acute kidney injury superimposed on chronic kidney disease stage 2, resolved acute kidney injury. 2. Severe hypokalemia. 3. Hypophosphatemia. 4. Status post ruptured diverticulitis, laparotomy, Milli procedure, colostomy, postoperative day #2. 5. Anemia of chronic disease. 6. Mantle cell lymphoma. 7. Hypertension. 8. Coronary artery disease. 9. Benign prostatic hypertrophy. 10. Recurrent urinary tract infection. PLAN: 1. Replace potassium. 2. Replace phosphorus. 3. Currently n.p.o. 4. Start clear liquids when okayed by Surgery. 5. Continue IV fluids for one more day. 6. Hold Lasix. 7. Continue Lopressor IV for the time being as the patient is n.p.o. Case discussed with ICU residents at length at bedside. More than 35 minutes spent in the care of this critically ill patient. Natalie Raman MD
--- NOTE | 2017-07-02 18:34 | PN ---
DATE: 07/02/2017 REASON FOR CONSULTATION AND FOLLOWUP: Cardiac evaluation, status post perforation, hollow viscus; status post exploratory laparotomy, status post extubated, history of coronary artery disease. SUBJECTIVE: The patient denies any chest pain, shortness of breath, complaining of pain in the throat because of the NG tube. OBJECTIVE: GENERAL: Not in apparent distress, lying flat on the bed. VITAL SIGNS: Temperature afebrile, heart rate 86, blood pressure 130/81. HEENT: PERRLA. Extraocular muscles intact. NECK: Supple. No carotid bruit. No thyromegaly. CHEST: Clear to auscultation. HEART: S1 and S2 regular. ABDOMEN: Soft. EXTREMITIES: Clubbing and cyanosis negative. LABORATORY DATA: Blood workup as follows: WBC 7, hemoglobin 10, hematocrit 31.1, platelet count 146. Chemistry shows sodium 130, potassium 3.1, chloride 100, carbon dioxide 20, anion gap of 9, BUN 10, creatinine 0.8, phosphorus 2.1. IMPRESSION: Hypophosphatemia; hypokalemia; anemia; status post perforation, hollow viscus; acute abdomen, status post exploratory laparotomy, status post colostomy, history of coronary artery disease, history of mantle cell lymphoma. RECOMMENDATIONS: Continue IV Lopressor, supplement phosphorus, continue DVT prophylaxis. We will supplement potassium and phosphate. I will increase metoprolol to 5 mg every 6 hours. Thanh Hill MD
[2017-07-02] MEDS: Dextrose 5%/0.45% NS 1,000 ML IV SCH (21:27)
[2017-07-03] MEDS: Insulin Reg-LOW-Coverage SC SCH ×4 (00:16→20:13)
[2017-07-03] MEDS: Metoprolol 1 mg/ml Inj IVP SCH ×2 (00:28→06:10)
[2017-07-03] MEDS: Meropenem IV 1 gm in NS 50 ML IVPB SCH ×3 (05:46→21:56)
[2017-07-03 06:37] LABS: EOS # 0.2 (0.0-0.7); EOS % 4.1 % (1.5-5.0); GRAN # 4.02 (1.4-6.5); GRAN % 77.8 % (50.0-68.0); HEMOGLOBIN 10.3 g/dL (14.0-18.0); LYMPH # 0.7 (1.2-3.4); LYMPH % 13.5 % (22.0-35.0); MEAN CELL VOLUME 86.1 fl (80.0-105.0); MEAN CORPUSCULAR HEMOGLOBIN 28.7 pg (25.0-35.0); MEAN CORPUSCULAR HGB CONC 33.3 g/dl (31.0-37.0); MEAN PLATELET VOLUME 9.4 fl (7.0-11.0); MONO # 0.2 (0.1-0.6); MONO % 4.6 % (1.0-6.0); RBC 3.59 10^6/uL (3.5-6.1); RED CELL DISTRIBUTION WIDTH 13.6 % (11.5-14.5); WHITE BLOOD COUNT 5.2 10^3/ul (4.5-11.0)
[2017-07-03 06:51] LABS: ALT/SGPT 27 U/L (7-56); AST/SGOT 26 U/L (17-59); BLOOD UREA NITROGEN 11 mg/dL (7-21); CALCIUM 8.2 mg/dL (8.4-10.5); GFR AFRICAN-AMERICAN > 60; GFR NON-AFRICAN AMERICAN > 60
[2017-07-03] MEDS ORDERED: Potassium Phosphate 15 MMOLE in Dextrose 5% In Water 250 ML IVPB ONE (07:43)
[2017-07-03] MEDS ORDERED: Potassium Chloride 20 mEq ER Tab PO STA (07:43)
[2017-07-03] MEDS: Levalbuterol 0.63 MG/3 ML Inhal Soln UD IH SCH ×2 (07:54→21:22)
--- NOTE | 2017-07-03 08:22 | PN ---
DATE: 07/02/2017 PULMONARY CRITICAL PROGRESS NOTE REFERRING PHYSICIAN: Dr. Ted Santoyo. SUBJECTIVE: He is out of bed to chair, extubated, on nasal cannula oxygen, still having nasogastric tube, intubated suction, has some sore throat. No nausea, no vomiting. Does have abdominal pain. Not passing any gas, no bowel movement. No leg swelling. OBJECTIVE: GENERAL: In no acute distress. VITAL SIGNS: Temperature is 98, heart rate is 91, respiratory rate is 20 to 30, blood pressure 120/58. HEENT: Moist mucous membrane. Small oral cavity. NECK: Supple. LUNGS: Have a few scattered rhonchi. HEART: S1 and S2. ABDOMEN: Positive bowel sounds, mildly distended. Colostomy looks okay. No drainage in colostomy. EXTREMITIES: There is no edema. NEUROLOGIC: Awake and alert, follows simple command. MEDICATIONS: He is on Dilaudid 0.5 mg every 3 hours p.r.n., Ditropan 5 mg at bedtime, Ecotrin 81 mg daily, heparin 5000 units subcu every 8 hours, insulin coverage, IV fluid lactated Ringer 70 mL per hour, Lasix 20 mg daily, metoprolol tartrate 12.5 mg daily, also metoprolol tartrate 5 mg IV every 6 hours, meropenem 1 g IV every 8 hours, nortriptyline 10 mg daily, Plavix 75 mg daily, Protonix 40 mg daily, Singulair 10 mg daily, Xanax 0.25 mg twice a day, Xopenex inhaled twice a day, Zofran p.r.n. basis. LABORATORY DATA: Shows hemoglobin 10.1, hematocrit 31.1, WBC 7.3, platelet is 146. Sodium 136, potassium 3.1, chloride 100, bicarbonate 29, BUN 10, creatinine 0.8, glucose 135, calcium 8.4, phosphorus 2.1, AST 24, ALT 25, alk phos is 86. Albumin 3.0. Microbiology, urine culture, there is no growth. Nasal culture was negative for a MRSA. IMPRESSION AND PLAN: Visceral perforation; history of diverticulitis status post laparotomy and colostomy; chronic obstructive lung disease; history of lung cancer; history of wedge resection; mantle cell lymphoma, been on chemotherapy; diabetes; probably a component of aspiration pneumonia. Pulmonary point of view, continue incentive spirometer, supplemental oxygen, antibiotics, bronchodilator. There may be component of sleep apnea syndrome. Careful with sedation. Gastric prophylaxis, deep venous thrombosis prophylaxis. Surgical, Infectious Disease, and Oncology followup. Critical care time 35 minutes. Follow up ABG, chest x-ray, CBC, CMP in the morning. Replace potassium and phosphorus. Thank you and we will follow with you. Thanh Duffy MD
--- NOTE | 2017-07-03 08:37 | RAD ---
HISTORY: infiltrate COMPARISON: 06/30/2017. FINDINGS: The right IJV line terminates at the cavoatrial junction. LUNGS: There are low lung volumes. There is bibasilar atelectasis. PLEURA: No significant pleural effusion identified, no pneumothorax apparent. CARDIOVASCULAR: The heart is normal in size. Atherosclerotic aortic arch calcifications are present. . There are surgical clips at the right hilum. OSSEOUS STRUCTURES: No significant abnormalities. VISUALIZED UPPER ABDOMEN: Normal. OTHER FINDINGS: None. IMPRESSION: Low lung volumes which may be related to poor inspiratory effort. Bibasilar atelectasis.
[2017-07-03] MEDS: HYDROmorphone 0.5 mg/0.5 ml ISec IVP PRN ×2 (08:47→17:48)
--- NOTE | 2017-07-03 08:49 | CP.CCUPN ---
<Torri Moore - Last Filed: 07/03/17 10:24> CCU Subjective - Physician Review Subjective (Free Text): 07/03/17 10:24 Patient seen and examined at bedside. No acute events overnight. Pt tolerating liquid diet well. Reports mild abdominal pain. Denies fever, chills, nausea, vomiting, passing flatus, leg swelling. Urine output adequate. KERI drains, serosanguineous drainage. Critical Care Time Spent (in minutes): 55 CCU Objective - Vital Signs / Intake & Output Vital Signs (Last 4 hours): Vital Signs Pulse BP 07/03/17 06:10 74 142/59 L Intake and Output (Last 8hrs): Intake & Output 07/02/17 07/03/17 07/03/17 22:59 06:59 14:59 Intake Total 700 Output Total 1480 Balance -780 Intake: IV 700 Right Subclavian 700 Output: Drainage 80 Left Lower Abdomen 30 Right Abdomen 50 Urine 1400 Urethral (Muir) 1400 - Physical Exam Head: Positive for: Atraumatic, Normocephalic Pupils: Positive for: PERRL Extroacular Muscles: Positive for: EOMI Conjunctiva: Positive for: Normal Ears: Positive for: Normal Mouth: Positive for: Moist Mucous Membranes Pharnyx: Positive for: ERYTHEMA. Negative for: EXUDATE, TONSILS ENLARGED Nose (External): Positive for: Atraumatic Nose (Internal): Positive for: Normal Inspection Neck: Positive for: Normal Range of Motion, Other (intact ROM, no midline tenderness, no nuchal rigidity). Negative for: Meningeal Signs, MIDLINE TENDERNESS, Paraspinal Tenderness, Trachea Midline Respiratory/Chest: Positive for: Clear to Auscultation, Good Air Exchange, Other (CTA b/l, no w/r/r, no accessory muscle use noted). Negative for: Respiratory Distress, Accessory Muscle Use Cardiovascular: Positive for: Regular Rate and Rhythm, Normal S1, S2. Negative for: Murmurs Abdomen: Positive for: Tenderness (Mild TTP on lower abdomen at incision site, thierno dry, intact, no erythema), Normal Bowel Sounds, Other (colostomy bag, old blood and small green stool noted; [address], draining SS fluid - 80 cc overnight). Negative for: Peritoneal Signs, Rebound, Guarding, Mass/ Organomegaly Back: Positive for: Normal Inspection. Negative for: CVA Tenderness, Midline Tenderness, Paraspinal Tenderness Upper Extremity: Positive for: Normal Inspection, Normal ROM, NORMAL PULSES. Negative for: Cyanosis, Edema Lower Extremity: Positive for: Normal Inspection, NORMAL PULSES, Normal ROM, Neurovascularly Intact. Negative for: Edema Neurological: Positive for: GCS=15, CN II-XII Intact, Speech Normal Skin: Positive for: Warm, Dry, Normal Color, Other (cap refill ~ 1sec, no ulcerations, no petechiae). Negative for: Rashes Psychiatric: Positive for: Alert, Oriented x 3 - Medications Active Medications: Active Medications Generic Name Dose Route Start Last Admin Trade Name Freq PRN Reason Stop Dose Admin Alprazolam 0.25 mg 06/29/17 19:28 Xanax PO 07/06/17 19:29 BID PRN Anxiety Protocol Aspirin 81 mg 06/30/17 10:00 Ecotrin PO DAILY [facility] Clopidogrel Bisulfate 75 mg 06/30/17 10:00 Plavix PO DAILY [facility] Furosemide 20 mg 06/30/17 10:00 Lasix PO DAILY [facility] Heparin Sodium (Porcine) 5,000 units 06/30/17 08:45 07/03/17 05:46 Heparin SC 5,000 units Q8 ALEX Administration Protocol Home Med 500 unit 06/30/17 18:00 Home Med PO BID ALEX Home Med 8 unit 06/30/17 22:00 Home Med PO HS [facility] Hydromorphone HCl 0.5 mg 06/29/17 21:51 07/02/17 13:58 Dilaudid IVP 0.5 mg Q3H PRN Administration Pain, Mild (1-3) Meropenem 50 mls @ 100 mls/hr 07/02/17 14:00 07/03/17 05:46 Merrem Iv 1 Gm Premix IVPB 100 mls/hr Q8 ALEX Administration Protocol Dextrose/Sodium Chloride 1,000 mls @ 50 mls/hr 07/02/17 21:15 07/02/17 21:27 Dextrose 5%/0.45% Ns 1000 Ml IV 50 mls/hr .Q20H ALEX Administration Potassium Phosphate 15 mmole/ 255 mls @ 42.5 mls/hr 07/03/17 07:43 Dextrose IVPB 07/03/17 13:42 ONCE ONE Insulin Human Regular 0 units 07/01/17 12:00 07/03/17 06:08 Humulin R Low SC Not Given Q6 [facility] Protocol Levalbuterol HCl 0.63 mg 06/30/17 08:10 07/03/17 07:54 Xopenex IH 0.63 mg ALEX Administration Metoprolol Tartrate 12.5 mg 06/29/17 20:00 06/30/17 10:31 Lopressor PO Not Given DAILY [facility] Metoprolol Tartrate 5 mg 07/02/17 18:00 07/03/17 06:10 Lopressor IVP 5 mg Q6 ALEX Administration Montelukast Sodium 10 mg 06/30/17 10:00 06/30/17 10:32 Singulair PO Not Given DAILY [facility] Nortriptyline HCl 10 mg 06/30/17 10:00 06/30/17 10:32 Pamelor PO Not Given DAILY [facility] Ondansetron HCl 4 mg 06/29/17 21:51 Zofran Inj IVP Q4H PRN Nausea/Vomiting Oxybutynin Chloride 5 mg 06/29/17 22:00 Ditropan Tab PO HS ALEX Pantoprazole Sodium 40 mg 06/30/17 10:00 07/02/17 11:04 Protonix Inj IVP 40 mg DAILY ALEX Administration - Patient Studies Lab Studies: Lab Studies 07/03/17 07/03/17 07/03/17 Range/Units 06:15 06:15 06:02 WBC 5.2 D (4.5-11.0) 10^3/ul RBC 3.59 (3.5-6.1) 10^6/uL Hgb 10.3 L (14.0-18.0) g/dL Hct 30.9 L (42.0-52.0) % MCV 86.1 (80.0-105.0) fl MCH 28.7 (25.0-35.0) pg MCHC 33.3 (31.0-37.0) g/dl RDW 13.6 (11.5-14.5) % Plt Count 143 (120.0-450.0) 10^3/uL MPV 9.4 (7.0-11.0) fl Gran % 77.8 H (50.0-68.0) % Lymph % (Auto) 13.5 L (22.0-35.0) % [place] % (Auto) 4.6 (1.0-6.0) % Eos % (Auto) 4.1 (1.5-5.0) % Baso % (Auto) 0.0 (0.0-3.0) % Gran # 4.02 (1.4-6.5) Lymph # (Auto) 0.7 L (1.2-3.4) [place] # (Auto) 0.2 (0.1-0.6) Eos # (Auto) 0.2 (0.0-0.7) Baso # (Auto) 0.00 (0.0-2.0) K/mm3 Sodium 135 (132-148) mmol/L Potassium 3.2 L (3.6-5.0) mmol/L Chloride 100 (98-107) mmol/L Carbon Dioxide 29 (21-33) mmol/L Anion Gap 9 L (10-20) BUN 11 (7-21) mg/dL Creatinine 0.7 L (0.8-1.5) mg/dl Est GFR ( Amer) > 60 Est GFR (Non-Af Amer) > 60 POC Glucose (mg/dL) 133 H (65-110) mg/dL Random Glucose 146 H (70-110) mg/dL Calcium 8.2 L (8.4-10.5) mg/dL Phosphorus 2.4 L (2.5-4.5) mg/dL Magnesium 1.9 (1.7-2.2) mg/dL Total Bilirubin 1.0 (0.2-1.3) mg/dL AST 26 (17-59) U/L ALT 27 (7-56) U/L Alkaline Phosphatase 82 (38-126) U/L Total Protein 6.0 (5.8-8.3) g/dL Albumin 3.0 (3.0-4.8) g/dL Globulin 3.1 gm/dL Albumin/Globulin Ratio 1.0 L (1.1-1.8) 07/02/17 07/02/17 07/02/17 Range/Units 22:45 18:27 14:34 WBC (4.5-11.0) 10^3/ul RBC (3.5-6.1) 10^6/uL Hgb (14.0-18.0) g/dL Hct (42.0-52.0) % MCV (80.0-105.0) fl MCH (25.0-35.0) pg MCHC (31.0-37.0) g/dl RDW (11.5-14.5) % Plt Count (120.0-450.0) 10^3/uL MPV (7.0-11.0) fl Gran % (50.0-68.0) % Lymph % (Auto) (22.0-35.0) % [place] % (Auto) (1.0-6.0) % Eos % (Auto) (1.5-5.0) % Baso % (Auto) (0.0-3.0) % Gran # (1.4-6.5) Lymph # (Auto) (1.2-3.4) [place] # (Auto) (0.1-0.6) Eos # (Auto) (0.0-0.7) Baso # (Auto) (0.0-2.0) K/mm3 Sodium (132-148) mmol/L Potassium (3.6-5.0) mmol/L Chloride (98-107) mmol/L Carbon Dioxide (21-33) mmol/L Anion Gap (10-20) BUN (7-21) mg/dL Creatinine (0.8-1.5) mg/dl Est GFR ( Amer) Est GFR (Non-Af Amer) POC Glucose (mg/dL) 128 H 135 H 95 (65-110) mg/dL Random Glucose (70-110) mg/dL Calcium (8.4-10.5) mg/dL Phosphorus (2.5-4.5) mg/dL Magnesium (1.7-2.2) mg/dL Total Bilirubin (0.2-1.3) mg/dL AST (17-59) U/L ALT (7-56) U/L Alkaline Phosphatase (38-126) U/L Total Protein (5.8-8.3) g/dL Albumin (3.0-4.8) g/dL Globulin gm/dL Albumin/Globulin Ratio (1.1-1.8) Laboratory Results - last 24 hr 07/02/17 07/02/17 07/02/17 14:34 18:27 22:45 WBC RBC Hgb Hct MCV MCH MCHC RDW Plt Count MPV Gran % Lymph % (Auto) [place] % (Auto) Eos % (Auto) Baso % (Auto) Gran # Lymph # (Auto) [place] # (Auto) Eos # (Auto) Baso # (Auto) Sodium Potassium Chloride Carbon Dioxide Anion Gap BUN Creatinine Est GFR ( Amer) Est GFR (Non-Af Amer) POC Glucose (mg/dL) 95 135 H 128 H Random Glucose Calcium Phosphorus Magnesium Total Bilirubin AST ALT Alkaline Phosphatase Total Protein Albumin Globulin Albumin/Globulin Ratio 07/03/17 07/03/17 07/03/17 06:02 06:15 06:15 WBC 5.2 D RBC 3.59 Hgb 10.3 L Hct 30.9 L MCV 86.1 MCH 28.7 MCHC 33.3 RDW 13.6 Plt Count 143 MPV 9.4 Gran % 77.8 H Lymph % (Auto) 13.5 L [place] % (Auto) 4.6 Eos % (Auto) 4.1 Baso % (Auto) 0.0 Gran # 4.02 Lymph # (Auto) 0.7 L [place] # (Auto) 0.2 Eos # (Auto) 0.2 Baso # (Auto) 0.00 Sodium 135 Potassium 3.2 L Chloride 100 Carbon Dioxide 29 Anion Gap 9 L BUN 11 Creatinine 0.7 L Est GFR ( Amer) > 60 Est GFR (Non-Af Amer) > 60 POC Glucose (mg/dL) 133 H Random Glucose 146 H Calcium 8.2 L Phosphorus 2.4 L Magnesium 1.9 Total Bilirubin 1.0 AST 26 ALT 27 Alkaline Phosphatase 82 Total Protein 6.0 Albumin 3.0 Globulin 3.1 Albumin/Globulin Ratio 1.0 L Fingerstick Blood Sugar Results: 128 Review of Systems - Review of Systems All systems: reviewed and no additional remarkable complaints except Review of Systems: as per subjective portion of note Critical Care Progress Note - Nutrition Nutrition: Nutrition Category Date Time Status Heart Healthy Diet [DIET] Diets 07/03/17 Breakfast Ordered Assessment/Plan - Assessment and Plan (Free Text) Assessment: 77 M history of stage IV mantle cell lymphoma, lung cancer, CAD s/p stent placement who presented to the ED with an acute abdomen 2/2 perforated sigmoid diverticulitis, s/p Milli procedure on 06/30, admitted to ICU for hypoxemic respiratory failure s/p surgery. Pt successfully extubated on NC, tolerating regular diet well, will downgrade from ICU: Neuro -Alert, awake, oriented to person, place, time Cardiovascular -Maintain MAP >65 -Aspirin resumed. -Plavix on hold as per general surgery. Will ask Cardio as to when it can be resumed. -Lopressor prn Pulmonary -Maintain SpO2>92% -Continue with Pulmonary toilet -Incentive spirometry -Cetacaine spray -Continue with xopenex -Chest PT Gastrointestinal -Regular diet -Monitor KERI drainage -Continue with protonix -Continue with merrem as per ID Renal -Maintain euvolemia -Replete electrolytes as needed -Hypokalemic and low phosphorous today, repleted. -UO adequate -Monitor I&O Infectious disease -Afebrile, no leukocytosis -Continue with merrem Endocrine -Maintain normothermia and euglycemia -ISS-Medium, continue with accuchecks Hematologic -SCDs and Heparin for DVT prophylaxis Musculoskeletal -OOB to chair -Physical therapy -Continue with plan for early mobility PPX: heparin sq, protonix Dispo: downgrade to Telemetry Case seen and discussed with attending, Dr Winters. Torri Moore PGY1 - Date & Time Date: 07/03/17 Time: 10:46 <Gil Winters - Last Filed: 07/03/17 11:04> CCU Objective - Vital Signs / Intake & Output Intake and Output (Last 8hrs): Intake & Output 07/02/17 07/03/17 07/03/17 22:59 06:59 14:59 Intake Total 700 Output Total 1480 Balance -780 Intake: IV 700 Right Subclavian 700 Output: Drainage 80 Left Lower Abdomen 30 Right Abdomen 50 Urine 1400 Urethral (Muir) 1400 - Medications Active Medications: Active Medications Generic Name Dose Route Start Last Admin Trade Name Freq PRN Reason Stop Dose Admin Alprazolam 0.25 mg 06/29/17 19:28 Xanax PO 07/06/17 19:29 BID PRN Anxiety Protocol Aspirin 81 mg 07/04/17 10:00 Ecotrin PO DAILY ALEX Bacitracin 1 gm 07/03/17 10:00 Bacitracin TOP TID ALEX Clopidogrel Bisulfate 75 mg 06/30/17 10:00 Plavix PO DAILY [facility] Furosemide 20 mg 06/30/17 10:00 Lasix PO DAILY [facility] Heparin Sodium (Porcine) 5,000 units 06/30/17 08:45 07/03/17 05:46 Heparin SC 5,000 units Q8 ALEX Administration Protocol Home Med 500 unit 06/30/17 18:00 Home Med PO BID ALEX Home Med 8 unit 06/30/17 22:00 Home Med PO HS [facility] Hydromorphone HCl 0.5 mg 06/29/17 21:51 07/03/17 08:47 Dilaudid IVP 0.5 mg Q3H PRN Administration Pain, Mild (1-3) Meropenem 50 mls @ 100 mls/hr 07/02/17 14:00 07/03/17 05:46 Merrem Iv 1 Gm Premix IVPB 100 mls/hr Q8 ALEX Administration Protocol Dextrose/Sodium Chloride 1,000 mls @ 50 mls/hr 07/02/17 21:15 07/02/17 21:27 Dextrose 5%/0.45% Ns 1000 Ml IV 50 mls/hr .Q20H ALEX Administration Potassium Phosphate 15 mmole/ 255 mls @ 42.5 mls/hr 07/03/17 07:43 Dextrose IVPB 07/03/17 13:42 ONCE ONE Insulin Human Regular 0 units 07/01/17 12:00 07/03/17 06:08 Humulin R Low SC Not Given Q6 [facility] Protocol Levalbuterol HCl 0.63 mg 06/30/17 08:10 07/03/17 07:54 Xopenex IH 0.63 mg 08,1999 ALEX Administration Metoprolol Tartrate 12.5 mg 06/29/17 20:00 06/30/17 10:31 Lopressor PO Not Given DAILY [facility] Metoprolol Tartrate 12.5 mg 07/03/17 10:30 Lopressor PO BID [facility] Montelukast Sodium 10 mg 06/30/17 10:00 06/30/17 10:32 Singulair PO Not Given DAILY [facility] Nortriptyline HCl 10 mg 06/30/17 10:00 06/30/17 10:32 Pamelor PO Not Given DAILY [facility] Ondansetron HCl 4 mg 06/29/17 21:51 Zofran Inj IVP Q4H PRN Nausea/Vomiting Oxybutynin Chloride 5 mg 06/29/17 22:00 Ditropan Tab PO HS ALEX Pantoprazole Sodium 40 mg 06/30/17 10:00 07/02/17 11:04 Protonix Inj IVP 40 mg DAILY [facility]LEX Administration Potassium Phos/Sodium Phos 1 pkt 07/03/17 10:19 Neutra-Phos PO 07/04/17 23:00 TID ALEX - Patient Studies Lab Studies: Lab Studies 07/03/17 07/03/17 07/03/17 Range/Units 06:15 06:15 06:02 WBC 5.2 D (4.5-11.0) 10^3/ul RBC 3.59 (3.5-6.1) 10^6/uL Hgb 10.3 L (14.0-18.0) g/dL Hct 30.9 L (42.0-52.0) % MCV 86.1 (80.0-105.0) fl MCH 28.7 (25.0-35.0) pg MCHC 33.3 (31.0-37.0) g/dl RDW 13.6 (11.5-14.5) % Plt Count 143 (120.0-450.0) 10^3/uL MPV 9.4 (7.0-11.0) fl Gran % 77.8 H (50.0-68.0) % Lymph % (Auto) 13.5 L (22.0-35.0) % [place] % (Auto) 4.6 (1.0-6.0) % Eos % (Auto) 4.1 (1.5-5.0) % Baso % (Auto) 0.0 (0.0-3.0) % Gran # 4.02 (1.4-6.5) Lymph # (Auto) 0.7 L (1.2-3.4) [place] # (Auto) 0.2 (0.1-0.6) Eos # (Auto) 0.2 (0.0-0.7) Baso # (Auto) 0.00 (0.0-2.0) K/mm3 Sodium 135 (132-148) mmol/L Potassium 3.2 L (3.6-5.0) mmol/L Chloride 100 (98-107) mmol/L Carbon Dioxide 29 (21-33) mmol/L Anion Gap 9 L (10-20) BUN 11 (7-21) mg/dL Creatinine 0.7 L (0.8-1.5) mg/dl Est GFR ( Amer) > 60 Est GFR (Non-Af Amer) > 60 POC Glucose (mg/dL) 133 H (65-110) mg/dL Random Glucose 146 H (70-110) mg/dL Calcium 8.2 L (8.4-10.5) mg/dL Phosphorus 2.4 L (2.5-4.5) mg/dL Magnesium 1.9 (1.7-2.2) mg/dL Total Bilirubin 1.0 (0.2-1.3) mg/dL AST 26 (17-59) U/L ALT 27 (7-56) U/L Alkaline Phosphatase 82 (38-126) U/L Total Protein 6.0 (5.8-8.3) g/dL Albumin 3.0 (3.0-4.8) g/dL Globulin 3.1 gm/dL Albumin/Globulin Ratio 1.0 L (1.1-1.8) 07/02/17 07/02/17 07/02/17 Range/Units 22:45 18:27 14:34 WBC (4.5-11.0) 10^3/ul RBC (3.5-6.1) 10^6/uL Hgb (14.0-18.0) g/dL Hct (42.0-52.0) % MCV (80.0-105.0) fl MCH (25.0-35.0) pg MCHC (31.0-37.0) g/dl RDW (11.5-14.5) % Plt Count (120.0-450.0) 10^3/uL MPV (7.0-11.0) fl Gran % (50.0-68.0) % Lymph % (Auto) (22.0-35.0) % [place] % (Auto) (1.0-6.0) % Eos % (Auto) (1.5-5.0) % Baso % (Auto) (0.0-3.0) % Gran # (1.4-6.5) Lymph # (Auto) (1.2-3.4) [place] # (Auto) (0.1-0.6) Eos # (Auto) (0.0-0.7) Baso # (Auto) (0.0-2.0) K/mm3 Sodium (132-148) mmol/L Potassium (3.6-5.0) mmol/L Chloride (98-107) mmol/L Carbon Dioxide (21-33) mmol/L Anion Gap (10-20) BUN (7-21) mg/dL Creatinine (0.8-1.5) mg/dl Est GFR ( Amer) Est GFR (Non-Af Amer) POC Glucose (mg/dL) 128 H 135 H 95 (65-110) mg/dL Random Glucose (70-110) mg/dL Calcium (8.4-10.5) mg/dL Phosphorus (2.5-4.5) mg/dL Magnesium (1.7-2.2) mg/dL Total Bilirubin (0.2-1.3) mg/dL AST (17-59) U/L ALT (7-56) U/L Alkaline Phosphatase (38-126) U/L Total Protein (5.8-8.3) g/dL Albumin (3.0-4.8) g/dL Globulin gm/dL Albumin/Globulin Ratio (1.1-1.8) Laboratory Results - last 24 hr 07/02/17 07/02/17 07/02/17 14:34 18:27 22:45 WBC RBC Hgb Hct MCV MCH MCHC RDW Plt Count MPV Gran % Lymph % (Auto) [place] % (Auto) Eos % (Auto) Baso % (Auto) Gran # Lymph # (Auto) [place] # (Auto) Eos # (Auto) Baso # (Auto) Sodium Potassium Chloride Carbon Dioxide Anion Gap BUN Creatinine Est GFR ( Amer) Est GFR (Non-Af Amer) POC Glucose (mg/dL) 95 135 H 128 H Random Glucose Calcium Phosphorus Magnesium Total Bilirubin AST ALT Alkaline Phosphatase Total Protein Albumin Globulin Albumin/Globulin Ratio 07/03/17 07/03/17 07/03/17 06:02 06:15 06:15 WBC 5.2 D RBC 3.59 Hgb 10.3 L Hct 30.9 L MCV 86.1 MCH 28.7 MCHC 33.3 RDW 13.6 Plt Count 143 MPV 9.4 Gran % 77.8 H Lymph % (Auto) 13.5 L [place] % (Auto) 4.6 Eos % (Auto) 4.1 Baso % (Auto) 0.0 Gran # 4.02 Lymph # (Auto) 0.7 L [place] # (Auto) 0.2 Eos # (Auto) 0.2 Baso # (Auto) 0.00 Sodium 135 Potassium 3.2 L Chloride 100 Carbon Dioxide 29 Anion Gap 9 L BUN 11 Creatinine 0.7 L Est GFR ( Amer) > 60 Est GFR (Non-Af Amer) > 60 POC Glucose (mg/dL) 133 H Random Glucose 146 H Calcium 8.2 L Phosphorus 2.4 L Magnesium 1.9 Total Bilirubin 1.0 AST 26 ALT 27 Alkaline Phosphatase 82 Total Protein 6.0 Albumin 3.0 Globulin 3.1 Albumin/Globulin Ratio 1.0 L Critical Care Progress Note - Nutrition Nutrition: Nutrition Category Date Time Status Heart Healthy Diet [DIET] Diets 07/03/17 Breakfast Ordered Attending/Attestation - Attestation I have personally seen and examined this patient.: Yes I have fully participated in the care of the patient.: Yes I have reviewed all pertinent clinical information: Yes Notes (Text): 07/03/17 11:03 The patient was seen and examined at the bedside. Patient care was discussed with resident Medical records, lab studies, and imaging were reviewed and management issues were discussed and formulated. Last 24H events reviewed. Agree with above treatment plans as outlined in 's note with addition of the following: Acute Respiratory Insufficiency \ Hypoxemia \ Bowel Perforation \ Sepsis \ Peritonitis \ PNA \ DM -hemodynamic monitoring to maintain MAP>65; continue metoprolol as per cardiology team -o2 supplementation to maintain Spo2 90-92 Pao2>60; on NC tolerating well -continue incentive spirometry -continue Abx as per ID team and f\u cultures -f\u Bun\Cr and U\o; monitor and replace e-lites -PO diet and aspiration precautions; advance diet as per surgical team -ISS and BGM monitoring -PT\OT eval for OOB -DVT \ PUD prophylaxis CCM f\u time 25min
--- NOTE | 2017-07-03 10:11 | CP.PCM.PN ---
Subjective - Date & Time of Evaluation Date of Evaluation: 07/03/17 Time of Evaluation: 09:40 - Subjective Subjective: Patient ate his breakfast without increase in abdominal pain. Still having right sided abdominal pain but a little less, no fevers, no nausea. No shortness of breath at rest. Objective - Vital Signs/Intake and Output Vital Signs (last 24 hours): Temp Pulse Resp BP Pulse Ox 98.2 F 74 43 H 142/59 L 99 07/03/17 04:00 07/03/17 06:10 07/03/17 04:00 07/03/17 06:10 07/03/17 04:00 Intake and Output: 07/03/17 07/03/17 06:59 18:59 Intake Total 700 Output Total 1480 Balance -780 - Medications Medications: Current Medications Alprazolam (Xanax) 0.25 mg PO BID PRN; Protocol PRN Reason: Anxiety Stop: 07/06/17 19:29 Aspirin (Ecotrin) 81 mg PO DAILY [facility] Clopidogrel Bisulfate (Plavix) 75 mg PO DAILY [facility] Furosemide (Lasix) 20 mg PO DAILY [facility] Heparin Sodium (Porcine) (Heparin) 5,000 units SC Q8 ALEX PRN Reason: Protocol Last Admin: 07/03/17 05:46 Dose: 5,000 units Home Med (Home Med) 500 unit PO BID ALEX Home Med (Home Med) 8 unit PO HS [facility] Hydromorphone HCl (Dilaudid) 0.5 mg IVP Q3H PRN PRN Reason: Pain, Mild (1-3) Last Admin: 07/02/17 13:58 Dose: 0.5 mg Meropenem (Merrem Iv 1 Gm Premix) 50 mls @ 100 mls/hr IVPB Q8 ALEX PRN Reason: Protocol Last Admin: 07/03/17 05:46 Dose: 100 mls/hr Dextrose/Sodium Chloride (Dextrose 5%/0.45% Ns 1000 Ml) 1,000 mls @ 50 mls/hr IV .Q20H [facility] Last Admin: 07/02/17 21:27 Dose: 50 mls/hr Potassium Phosphate 15 mmole/ (Dextrose) 255 mls @ 42.5 mls/hr IVPB ONCE ONE Stop: 07/03/17 13:42 Insulin Human Regular (Humulin R Low) 0 units SC Q6 ALEX PRN Reason: Protocol Last Admin: 07/03/17 06:08 Dose: Not Given Levalbuterol HCl (Xopenex) 0.63 mg 799,1999 [facility] Last Admin: 07/03/17 07:54 Dose: 0.63 mg Metoprolol Tartrate (Lopressor) 12.5 mg PO DAILY [facility] Last Admin: 06/30/17 10:31 Dose: Not Given Metoprolol Tartrate (Lopressor) 5 mg IVP Q6 [facility] Last Admin: 07/03/17 06:10 Dose: 5 mg Montelukast Sodium (Singulair) 10 mg PO DAILY [facility] Last Admin: 06/30/17 10:32 Dose: Not Given Nortriptyline HCl (Pamelor) 10 mg PO DAILY [facility] Last Admin: 06/30/17 10:32 Dose: Not Given Ondansetron HCl (Zofran Inj) 4 mg IVP Q4H PRN PRN Reason: Nausea/Vomiting Oxybutynin Chloride (Ditropan Tab) 5 mg PO [facility] Pantoprazole Sodium (Protonix Inj) 40 mg IVP DAILY [facility] Last Admin: 07/02/17 11:04 Dose: 40 mg - Labs Labs: 07/03/17 06:15 07/03/17 06:15 PT 13.7 SECONDS (9.4-12.5) H 06/30/17 12:00 INR 1.19 (0.93-1.08) H 06/30/17 12:00 APTT 28.5 Seconds (25.1-36.5) 06/30/17 12:00 - Constitutional Appears: Non-toxic, Chronically Ill - Head Exam Head Exam: NORMAL INSPECTION - ENT Exam ENT Exam: Mucous Membranes Moist - Neck Exam Neck Exam: absent: Lymphadenopathy, Meningismus - Respiratory Exam Respiratory Exam: absent: Rales, Rhonchi - Cardiovascular Exam Cardiovascular Exam: +S1, +S2 - GI/Abdominal Exam GI & Abdominal Exam: Soft, Tenderness (mild, right sided). absent: Distended, Firm, Guarding, Rigid, Rebound Additional comments: left sided colostomy in place, right sided KERI drain with dark serous fluid Assessment and Plan - Assessment and Plan (Free Text) Plan: Assessment Severe sepsis S/P acute renal failure S/P ventilator-dependent respiratory failure due to acute perforated sigmoid colon with associated diverticulitis S/ P exploratory laparotomy, sigmoidectomy and colostomy POD #4 history of sepsis due to acute bronchitis, with systemic viral illness history of UTI with E. 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
[2017-07-03] MEDS: Potassium & Sodium Phosphate PO SCH ×3 (11:05→17:53)
[2017-07-03] MEDS: Bacitracin Ointment 30 GM TUBE TOP SCH ×3 (11:06→17:53)
[2017-07-03] MEDS: TETRACAINE/BENZOCAINE/BUTAMBEN 20 GM SPRAY TP SCH ×2 (11:10→17:53)
--- NOTE | 2017-07-03 11:34 | CP.PCM.PN ---
Subjective - Date & Time of Evaluation Date of Evaluation: 07/03/17 Time of Evaluation: 09:00 - Subjective Subjective: PGY-[address] [place] [address] Myers's service Patient seen and examined at bedside in the ICU. No acute events overnight. Patient was extubated and off bipap. Patient is sitting up oob eating breakfast. He was advanced to heart health diet. He appears to be tolerating it. He states that he continues to have pain in his abd 10/12. The pain in his throat has improved. He alert, awake, and oriented. He denies cough, fever, chills, nausea, vomiting, leg swelling. Objective - Vital Signs/Intake and Output Vital Signs (last 24 hours): Temp Pulse Resp BP Pulse Ox 98.2 F 71 43 H 129/62 99 07/03/17 04:00 07/03/17 11:05 07/03/17 04:00 07/03/17 11:05 07/03/17 04:00 Intake and Output: 07/03/17 07/03/17 06:59 18:59 Intake Total 700 Output Total 1480 Balance -780 - Medications Medications: Current Medications Alprazolam (Xanax) 0.25 mg PO BID PRN; Protocol PRN Reason: Anxiety Stop: 07/06/17 19:29 Aspirin (Ecotrin) 81 mg PO DAILY [facility] Bacitracin (Bacitracin) 1 gm TOP TID [facility] Last Admin: 07/03/17 11:06 Dose: 1 dose Clopidogrel Bisulfate (Plavix) 75 mg PO DAILY [facility] Furosemide (Lasix) 20 mg PO DAILY [facility] Heparin Sodium (Porcine) (Heparin) 5,000 units SC Q8 [facility] PRN Reason: Protocol Last Admin: 07/03/17 05:46 Dose: 5,000 units Home Med (Home Med) 500 unit PO BID [facility] Home Med (Home Med) 8 unit PO HS [facility] Hydromorphone HCl (Dilaudid) 0.5 mg IVP Q3H PRN PRN Reason: Pain, Mild (1-3) Last Admin: 07/03/17 08:47 Dose: 0.5 mg Meropenem (Merrem Iv 1 Gm Premix) 50 mls @ 100 mls/hr IVPB Q8 [facility] PRN Reason: Protocol Last Admin: 07/03/17 05:46 Dose: 100 mls/hr Dextrose/Sodium Chloride (Dextrose 5%/0.45% Ns 1000 Ml) 1,000 mls @ 50 mls/hr IV .Q20H [facility] Last Admin: 07/02/17 21:27 Dose: 50 mls/hr Potassium Phosphate 15 mmole/ (Dextrose) 255 mls @ 42.5 mls/hr IVPB ONCE ONE Stop: 07/03/17 13:42 Insulin Human Regular (Humulin R Low) 0 units SC Q6 [facility] PRN Reason: Protocol Last Admin: 07/03/17 06:08 Dose: Not Given Levalbuterol HCl (Xopenex) 0.63 mg IH 0800,1999 [facility] Last Admin: 07/03/17 07:54 Dose: 0.63 mg Metoprolol Tartrate (Lopressor) 12.5 mg PO DAILY [facility] Last Admin: 06/30/17 10:31 Dose: Not Given Metoprolol Tartrate (Lopressor) 12.5 mg PO BID [facility] Last Admin: 07/03/17 11:05 Dose: 12.5 mg Montelukast Sodium (Singulair) 10 mg PO DAILY [facility] Last Admin: 06/30/17 10:32 Dose: Not Given Nortriptyline HCl (Pamelor) 10 mg PO DAILY [facility] Last Admin: 06/30/17 10:32 Dose: Not Given Ondansetron HCl (Zofran Inj) 4 mg IVP Q4H PRN PRN Reason: Nausea/Vomiting Oxybutynin Chloride (Ditropan Tab) 5 mg PO [facility] Pantoprazole Sodium (Protonix Inj) 40 mg IVP DAILY [facility] Last Admin: 07/03/17 11:05 Dose: 40 mg Potassium Phos/Sodium Phos (Neutra-Phos) 1 pkt PO TID [facility] Stop: 07/04/17 23:00 Last Admin: 07/03/17 11:05 Dose: 1 pkt - Labs Labs: 07/03/17 06:15 07/03/17 06:15 PT 13.7 SECONDS (9.4-12.5) H 06/30/17 12:00 INR 1.19 (0.93-1.08) H 06/30/17 12:00 APTT 28.5 Seconds (25.1-36.5) 06/30/17 12:00 - Constitutional Appears: No Acute Distress - Head Exam Head Exam: ATRAUMATIC, NORMOCEPHALIC - Eye Exam Eye Exam: EOMI, Normal appearance - ENT Exam ENT Exam: Mucous Membranes Moist - Respiratory Exam Respiratory Exam: Decreased Breath Sounds, Clear to Ausculation Bilateral, NORMAL BREATHING PATTERN. absent: Rales, Rhonchi, Wheezes, Respiratory Distress - Cardiovascular Exam Cardiovascular Exam: REGULAR RHYTHM, +S1, +S2. absent: Bradycardia, Tachycardia , Murmur - GI/Abdominal Exam GI & Abdominal Exam: Tenderness, Normal Bowel Sounds. absent: Distended, Firm Additional comments: colostomy bag in place, incision site clean dry, no drainage, abd drain with serosanguinous fluid Assessment and Plan - Assessment and Plan (Free Text) Assessment: 77 M history of stage IV mantle cell lymphomathat is quiescence, lung cancer s/ p wedge resection, hypoglobulinemia reciving treatment, CAD s/p stent placement , diabetes, HTN, COPD who presented with an acute abdomen due to perforated sigmoid diverticulitis, s/p Milli procedure, admitted to ICU for hypoxemic respiratory failure s/p surgery. He was successfully extubated. Plan: Patient is s/p Milli pod #3 He is extubated and off bipap, continue with Pulmonary toilet, Incentive spirometry Cetacaine spray started for throat pain patient's was advance diet per surgery continue to monitor KERI drainage output surgery following patient is afebrile without leukocytosis ID consulted, Continue with vancomycin and merrem cultures pending cardiology consulted, recommended Lopressor prn will continue to monitor renal status electrolytes replete as needed continue ISS-Medium, continue with accuchecks SCDs and Heparin for DVT prophylaxis OOB to chair Physical therapy Patient transferred to remote tele Case reviewed and discussed with Dr. Myers
--- NOTE | 2017-07-03 11:47 | CP.PCM.PN ---
Subjective - Date & Time of Evaluation Date of Evaluation: 07/03/17 Time of Evaluation: 07:25 - Subjective Subjective: Surgery Progress note. Dr. Pabon PT seen and examined at bedside. No acute events overnight. No N/V/D. Abdominal pain improved. Ostomy in place with some stool output today. Morales in place this morning. No New complaints. Objective - Vital Signs/Intake and Output Vital Signs (last 24 hours): Temp Pulse Resp BP Pulse Ox 98.2 F 71 43 H 129/62 99 07/03/17 04:00 07/03/17 11:05 07/03/17 04:00 07/03/17 11:05 07/03/17 04:00 Intake and Output: 07/03/17 07/03/17 06:59 18:59 Intake Total 700 Output Total 1480 Balance -780 - Medications Medications: Current Medications Alprazolam (Xanax) 0.25 mg PO BID PRN; Protocol PRN Reason: Anxiety Stop: 07/06/17 19:29 Aspirin (Ecotrin) 81 mg PO DAILY [facility] Bacitracin (Bacitracin) 1 gm TOP TID [facility] Last Admin: 07/03/17 11:06 Dose: 1 dose Clopidogrel Bisulfate (Plavix) 75 mg PO DAILY [facility] Furosemide (Lasix) 20 mg PO DAILY [facility] Heparin Sodium (Porcine) (Heparin) 5,000 units SC Q8 [facility] PRN Reason: Protocol Last Admin: 07/03/17 05:46 Dose: 5,000 units Home Med (Home Med) 500 unit PO BID ALEX Home Med (Home Med) 8 unit PO HS [facility] Hydromorphone HCl (Dilaudid) 0.5 mg IVP Q3H PRN PRN Reason: Pain, Mild (1-3) Last Admin: 07/03/17 08:47 Dose: 0.5 mg Meropenem (Merrem Iv 1 Gm Premix) 50 mls @ 100 mls/hr IVPB Q8 [facility] PRN Reason: Protocol Last Admin: 07/03/17 05:46 Dose: 100 mls/hr Dextrose/Sodium Chloride (Dextrose 5%/0.45% Ns 1000 Ml) 1,000 mls @ 50 mls/hr IV .Q20H [facility] Last Admin: 07/02/17 21:27 Dose: 50 mls/hr Potassium Phosphate 15 mmole/ (Dextrose) 255 mls @ 42.5 mls/hr IVPB ONCE ONE Stop: 07/03/17 13:42 Insulin Human Regular (Humulin R Low) 0 units SC Q6 [facility] PRN Reason: Protocol Last Admin: 07/03/17 06:08 Dose: Not Given Levalbuterol HCl (Xopenex) 0.63 mg 0800,1999 [facility] Last Admin: 07/03/17 07:54 Dose: 0.63 mg Metoprolol Tartrate (Lopressor) 12.5 mg PO DAILY [facility] Last Admin: 06/30/17 10:31 Dose: Not Given Metoprolol Tartrate (Lopressor) 12.5 mg PO BID [facility] Last Admin: 07/03/17 11:05 Dose: 12.5 mg Montelukast Sodium (Singulair) 10 mg PO DAILY [facility] Last Admin: 06/30/17 10:32 Dose: Not Given Nortriptyline HCl (Pamelor) 10 mg PO DAILY [facility] Last Admin: 06/30/17 10:32 Dose: Not Given Ondansetron HCl (Zofran Inj) 4 mg IVP Q4H PRN PRN Reason: Nausea/Vomiting Oxybutynin Chloride (Ditropan Tab) 5 mg PO [facility] Pantoprazole Sodium (Protonix Inj) 40 mg IVP DAILY [facility] Last Admin: 07/03/17 11:05 Dose: 40 mg Potassium Phos/Sodium Phos (Neutra-Phos) 1 pkt PO TID [facility] Stop: 07/04/17 23:00 Last Admin: 07/03/17 11:05 Dose: 1 pkt - Labs Labs: 07/03/17 06:15 07/03/17 06:15 PT 13.7 SECONDS (9.4-12.5) H 06/30/17 12:00 INR 1.19 (0.93-1.08) H 06/30/17 12:00 APTT 28.5 Seconds (25.1-36.5) 06/30/17 12:00 - Constitutional Appears: Well, Non-toxic, No Acute Distress - Head Exam Head Exam: ATRAUMATIC, NORMAL INSPECTION, NORMOCEPHALIC - Eye Exam Eye Exam: EOMI - ENT Exam ENT Exam: Mucous Membranes Moist - Respiratory Exam Respiratory Exam: NORMAL BREATHING PATTERN. absent: Accessory Muscle Use, Respiratory Distress - Cardiovascular Exam Cardiovascular Exam: RRR. absent: JVD - GI/Abdominal Exam GI & Abdominal Exam: Soft. absent: Distended, Guarding, Rigid, Rebound Additional comments: midline incision intact with thierno. mild mariza-incisional tenderness to palpation stomy in place, pink. Small amount of brown stool output and gas present. Bowel sweat present. - Extremities Exam Extremities Exam: Normal Inspection. absent: Calf Tenderness - Neurological Exam Neurological Exam: Alert, Awake, Oriented x3 - Skin Skin Exam: Dry, Intact, Normal Color, Warm Assessment and Plan - Assessment and Plan (Free Text) Assessment: 77yo M with perforated viscous secondary to diverticulitis. S/P Rob's POD 3. Plan: - Encourage out of bed to chair. Ambulate. IS use. - Advance diet as tolerated. Started on heart healthy diet this morning - Stoma care. Monitor output. Ostomy training. - D/C morales - continue abx as per ID - Pain management - DVT ppx Further recs as per Dr. Cm Garcia PGY1 surgery pager: [phone]
--- NOTE | 2017-07-03 12:45 | CP.PCM.PN ---
Subjective - Date & Time of Evaluation Date of Evaluation: 07/03/17 Time of Evaluation: 11:20 - Subjective Subjective: Seen and examined at the bedside earlier today, chart was reviewed. Patient denies nausea, vomiting, or abdominal pain. Tolerated heart healthy diet. Patient reported to have some stool out of colostomy. No acute overnight events reported. Objective - Vital Signs/Intake and Output Vital Signs (last 24 hours): Temp Pulse Resp BP Pulse Ox 97.5 F L 71 19 129/62 100 07/03/17 11:30 07/03/17 11:05 07/03/17 11:00 07/03/17 11:05 07/03/17 11:00 Intake and Output: 07/03/17 07/03/17 06:59 18:59 Intake Total 700 Output Total 1480 Balance -780 - Medications Medications: Current Medications Alprazolam (Xanax) 0.25 mg PO BID PRN; Protocol PRN Reason: Anxiety Stop: 07/06/17 19:29 Aspirin (Ecotrin) 81 mg PO DAILY [facility] Bacitracin (Bacitracin) 1 gm TOP TID [facility] Last Admin: 07/03/17 11:06 Dose: 1 dose Clopidogrel Bisulfate (Plavix) 75 mg PO DAILY [facility] Furosemide (Lasix) 20 mg PO DAILY [facility] Heparin Sodium (Porcine) (Heparin) 5,000 units SC Q8 [facility] PRN Reason: Protocol Last Admin: 07/03/17 05:46 Dose: 5,000 units Home Med (Home Med) 500 unit PO BID [facility] Home Med (Home Med) 8 unit PO HS [facility] Hydromorphone HCl (Dilaudid) 0.5 mg IVP Q3H PRN PRN Reason: Pain, Mild (1-3) Last Admin: 07/03/17 08:47 Dose: 0.5 mg Meropenem (Merrem Iv 1 Gm Premix) 50 mls @ 100 mls/hr IVPB Q8 [facility] PRN Reason: Protocol Last Admin: 07/03/17 05:46 Dose: 100 mls/hr Dextrose/Sodium Chloride (Dextrose 5%/0.45% Ns 1000 Ml) 1,000 mls @ 50 mls/hr IV .Q20H [facility] Last Admin: 07/02/17 21:27 Dose: 50 mls/hr Potassium Phosphate 15 mmole/ (Dextrose) 255 mls @ 42.5 mls/hr IVPB ONCE ONE Stop: 07/03/17 13:42 Insulin Human Regular (Humulin R Low) 0 units SC Q6 [facility] PRN Reason: Protocol Last Admin: 07/03/17 06:08 Dose: Not Given Levalbuterol HCl (Xopenex) 0.63 mg 08,1999 [facility] Last Admin: 07/03/17 07:54 Dose: 0.63 mg Metoprolol Tartrate (Lopressor) 12.5 mg PO DAILY [facility] Last Admin: 06/30/17 10:31 Dose: Not Given Metoprolol Tartrate (Lopressor) 12.5 mg PO BID [facility] Last Admin: 07/03/17 11:05 Dose: 12.5 mg Montelukast Sodium (Singulair) 10 mg PO DAILY [facility] Last Admin: 06/30/17 10:32 Dose: Not Given Nortriptyline HCl (Pamelor) 10 mg PO DAILY [facility] Last Admin: 06/30/17 10:32 Dose: Not Given Ondansetron HCl (Zofran Inj) 4 mg IVP Q4H PRN PRN Reason: Nausea/Vomiting Oxybutynin Chloride (Ditropan Tab) 5 mg PO HS [facility] Pantoprazole Sodium (Protonix Inj) 40 mg IVP DAILY [facility] Last Admin: 07/03/17 11:05 Dose: 40 mg Potassium Phos/Sodium Phos (Neutra-Phos) 1 pkt PO TID [facility] Stop: 07/04/17 23:00 Last Admin: 07/03/17 11:05 Dose: 1 pkt - Labs Labs: 07/03/17 06:15 07/03/17 06:15 PT 13.7 SECONDS (9.4-12.5) H 06/30/17 12:00 INR 1.19 (0.93-1.08) H 06/30/17 12:00 APTT 28.5 Seconds (25.1-36.5) 06/30/17 12:00 - Constitutional Appears: No Acute Distress - Head Exam Head Exam: NORMOCEPHALIC - Eye Exam Eye Exam: Normal appearance. absent: Scleral icterus - ENT Exam ENT Exam: Mucous Membranes Moist - Neck Exam Neck Exam: Normal Inspection - Respiratory Exam Respiratory Exam: NORMAL BREATHING PATTERN. absent: Respiratory Distress - Cardiovascular Exam Cardiovascular Exam: +S1, +S2 - GI/Abdominal Exam GI & Abdominal Exam: Soft, Normal Bowel Sounds. absent: Guarding, Rebound Additional comments: surgical incision with thierno open to air no erythema or drainage, colostomy with some brown stool, stoma appears pink. KERI drain [address] small amount of serosanguineous drain. - Extremities Exam Extremities Exam: absent: Calf Tenderness, Pedal Edema - Neurological Exam Neurological Exam: Alert, Awake, Oriented x3 Assessment and Plan - Assessment and Plan (Free Text) Assessment: Assessment: Hypokalemia Acute abdomen status post CT scan found to have free air, likely perforated diverticulitis Status post emergency exploratory laparotomy with Rob's procedure History of stage IV mantle cell lymphoma History of lung cancer status post wedge resection Coronary artery disease status post stents 4 Plan: on heart healthy diet Continue IV antibiotics Monitor H&H and for overt GI bleed GI prophylaxis DVT prophylaxis Monitor electrolytes and replete as necessary surgical follow-up Seen and discussed with Dr. Casiano.
--- NOTE | 2017-07-03 15:55 | PN ---
DATE: 07/03/2017 REASON FOR CONSULTATION AND FOLLOWUP: Cardiac evaluation, status post perforation of hollow viscus, status post exploratory laparotomy, status post extubated, history of coronary artery disease. SUBJECTIVE: Patient denies any chest pain or shortness of breath. Complaining of pain at the operative site, trying to eat the breakfast. OBJECTIVE: GENERAL: Not in apparent distress, trying to eat breakfast. VITAL SIGNS: Temperature afebrile, heart rate 74, blood pressure 142/59. HEENT: PERRLA. Extraocular muscles intact. NECK: Supple. No carotid bruit. No thyromegaly. CHEST: Clear to auscultation. HEART: S1 and S2, regular. ABDOMEN: Soft. EXTREMITIES: Clubbing and cyanosis negative. DIAGNOSTIC DATA: EKG normal sinus. LABORATORY DATA: Blood workup: WBC 5.8, hemoglobin 10.3, hematocrit 30.9, platelet count 143. Chemistry shows sodium 135, potassium 3.2, chloride 100, carbon dioxide 29, anion gap of 9. BUN 11, creatinine 0.7. Total protein 6, albumin 3. Phosphorus 2.4, magnesium 1.9. IMPRESSION: A 77-year-old male with past medical history of mantle cell carcinoma; history of percutaneous transluminal coronary angioplasty, multiple; status post rotablation of in-stent stenosis many years ago; admitted with acute abdomen secondary to perforation of hollow viscus, perforation of sigmoid colon, status post exploratory laparotomy, Milli procedure, status post colostomy; status post extubated; now fairly stable; started eating the breakfast; electrolyte imbalance; hypophosphatemia; hypokalemia. RECOMMENDATION: Change IV Lopressor to p.o., Neutra-Phos supplement. Monitor electrolytes. If adequate p.o., then we will discontinue IV fluids. Plavix was on hold now because of recent surgery. Once patient started tolerating, we will start baby aspirin from tomorrow. We will follow with you. We will supplement Neutra-Phos. Continue DVT prophylaxis. Thank you Dr. Myers, for providing me the opportunity in taking care of Jakub Marques. Thanh Hill MD [facility] # [id number]
[2017-07-03 16:47] VITALS: O2SAT 97
--- NOTE | 2017-07-03 17:07 | PN ---
DATE: 07/03/2017 SUBJECTIVE: The patient is currently seen on 3R. He was just transferred from the CCU. The patient is complaining of some mild right lower quadrant abdominal pain. He remains on IV fluid hydration. He has a low potassium and low phosphorus level, and is receiving a potassium phosphorus rider. MEDICATIONS: Medication list reviewed. The patient is currently on bacitracin, D5 half-normal saline 50 mL/hour, Dilaudid, Ecotrin, heparin, sliding scale insulin, Lopressor, meropenem, Neutra-Phos tablets, Protonix, Xopenex, and Zofran. OBJECTIVE: INTAKE/OUTPUT: Intake is 700, output is 2009. GENERAL: Weight today is 157 pounds. VITAL SIGNS: Blood pressure 125/66, temperature is 97.5, respiratory rate is 16 with a pulse of 75, pulse ox is 100%. HEENT: Show him to be normocephalic, atraumatic. Conjunctivae are pale. Sclerae are nonicteric. NECK: Supple. No neck vein distention. CHEST: Clear to auscultation and percussion with no rales, rhonchi, or wheezing. CARDIOVASCULAR: Shows a regular rate and rhythm without audible murmurs, rubs, or gallops. ABDOMEN: Mildly distended. He has drains in the right lower quadrant. He has a colostomy in the left lower quadrant and a midline incision with an intact staple line. EXTREMITIES: Show no lower extremity edema. The patient has compression stockings on. No cyanosis or clubbing. Distal lower extremity pulses are 1 to 2+ bilaterally. LABORATORY DATA AND IMAGING: CBC: White blood cell count 5.2, hemoglobin 10.2 with a platelet count of 143,000. Chemistries show a potassium of 3.2 with a sodium of 135, chloride 100 with a CO2 of 29. BUN is 11 with a creatinine of 0.7. Glucose is 146. Calcium 8.2 with an albumin of 3, corrects to normal. Phosphorus is low at 2.4. Magnesium level was normal at 1.9. Liver enzymes are normal. Microbiology: All cultures are negative. ASSESSMENT: 1. Mild elevation of BUN and creatinine with hydration now back to baseline levels. 2. Mild hypokalemia and mild hypophosphatemia. In lieu of giving the patient's K-Phos riders, we could add K-Phos to the IV fluids. This would give him potassium and phosphorus throughout the day instead of on a p.r.n. basis. 3. Status post ruptured diverticulitis, laparotomy, Milli procedure with colostomy, postoperative day #3. 4. History of mild anemia, currently stable. 5. History of mantle cell lymphoma, status post chemotherapy. 6. History of hypertension. The patient is currently normotensive on beta-harris therapy similar to his outpatient regimen. 7. History of atherosclerotic heart disease, currently stable. 8. History of benign prostatic hypertrophy, currently stable. PLAN: 1. In lieu of giving him K-Phos riders, we could add potassium phosphorus to his IV fluids. 2. Attempting to advance his diet. 3. Continue empiric antibiotic therapy. 4. Agree with discontinuation of diuretic therapy. 5. The patient may be transitioned back over to oral beta-harris therapy from IV beta-harris therapy. 6. Continue to monitor daily labs until his electrolytes entirely correct. At which point in time, labs can be done on a less frequent basis. 7. Discussed with staff on 3R and patient. Usman Brady MD
[2017-07-03] MEDS: Dextrose 5%/0.45% NS 1,000 ML IV SCH (17:52)
--- NOTE | 2017-07-04 00:51 | PN ---
DATE: 07/03/2017 PULMONARY PROGRESS NOTE REFERRING PHYSICIAN: Ted Santoyo MD. SUBJECTIVE: He is out of bed to chair. Night was unremarkable. Feels better on nasal cannula. Sore throat is better. No nausea and no vomiting. Mild abdominal pain. Colostomy has bloody secretion. No leg swelling. OBJECTIVE: GENERAL: In no acute distress. VITAL SIGNS: Temp is 98, heart rate is , respiratory rate is 20, blood pressure 163/87, pulse ox 97% on nasal cannula. HEENT: Moist mucous membranes. Small oral cavity. NECK: Supple. No JVD. LUNGS: Have fair airflow with rhonchi. HEART: S1 and S2. ABDOMEN: Sot, positive bowel sounds. Mild tenderness. Colostomy bag looks okay. EXTREMITIES: There is no edema. NEUROLOGICAL: Awake and follows simple commands. On nasal bridge, he has some ulcer from the BiPAP mask. MEDICATIONS: He is on bacitracin ointment to the affected area three times a day, IV fluids D5 half normal saline at 50 mL per hour, Dilaudid 7.5 mg every 3 hours p.r.n., Ditropan 5 mg at bedtime, Ecotrin 81 mg daily, heparin 5000 units subcutaneous every 8 hours, Lasix 20 mg daily, metoprolol tartrate 12.5 mg daily, meropenem 1 g IV every 8 hours, Neutra-Phos one pack 3 times a day, nortriptyline 10 mg daily, Plavix 75 mg daily, Protonix 40 mg daily, Singulair 10 mg daily, Xanax 0.25 mg twice a day p.r.n., Xopenex inhaled twice a day, Zofran p.r.n. basis. LABORATORY DATA: Shows hemoglobin 10.3, hematocrit 30.9, WBC of 5.2, platelet is 143. Sodium 135, potassium 3.2, chloride 100, bicarbonate 29, BUN 11, creatinine 0.7, glucose 146, calcium is 8.2, phosphorus 2.4, magnesium is 1.9. AST 26, ALT 27, alk phos is 82, albumin is 3. Urinalysis is unremarkable. Chest x-ray done today shows low lung volume, some basal atelectasis, otherwise unremarkable. IMPRESSION AND PLAN: Visceral perforation requiring laparotomy and colostomy, chronic obstructive lung disease, history of lung cancer requiring wedge resection in the past, has a mantle cell lymphoma, been on chemotherapy, diabetes. He probably has some component of aspiration pneumonia. Pulmonary point of view, doing okay. Continue bronchodilator. Encourage BiPAP use. Spoke to nursing staff and requested to get whole face mask for the BiPAP. Pressure ulcer precaution. Antibiotics as per Infectious Disease. Gastric prophylaxis. Physical therapy. Follow up CBC and CMP in the morning. Critical care time more than 35 minutes spent in care. We will follow with you. Thanh Duffy MD
[2017-07-04] MEDS: Insulin Reg-LOW-Coverage SC SCH ×3 (00:55→12:45)
[2017-07-04] MEDS ORDERED: Morphine 4 mg/ml ISec IVP ONE (05:26)
[2017-07-04] MEDS: Meropenem IV 1 gm in NS 50 ML IVPB SCH (05:38)
[2017-07-04 06:36] LABS: BASO # 0.01 K/mm3 (0.0-2.0); BASO % 0.2 % (0.0-3.0); EOS # 0.3 (0.0-0.7); GRAN # 3.45 (1.4-6.5); GRAN % 68.7 % (50.0-68.0); HEMOGLOBIN 10.3 g/dL (14.0-18.0); LYMPH # 0.9 (1.2-3.4); LYMPH % 18.7 % (22.0-35.0); MEAN CELL VOLUME 85.4 fl (80.0-105.0); MEAN CORPUSCULAR HEMOGLOBIN 28.5 pg (25.0-35.0); MEAN CORPUSCULAR HGB CONC 33.3 g/dl (31.0-37.0); MEAN PLATELET VOLUME 9.1 fl (7.0-11.0); MONO # 0.4 (0.1-0.6); MONO % 7.4 % (1.0-6.0); RBC 3.62 10^6/uL (3.5-6.1); RED CELL DISTRIBUTION WIDTH 13.6 % (11.5-14.5)
[2017-07-04 06:45] LABS: ALBUMIN 2.9 g/dL (3.0-4.8); ALT/SGPT 27 U/L (7-56); AST/SGOT 22 U/L (17-59); BLOOD UREA NITROGEN 10 mg/dL (7-21); CALCIUM 8.1 mg/dL (8.4-10.5); GFR AFRICAN-AMERICAN > 60; GFR NON-AFRICAN AMERICAN > 60
--- NOTE | 2017-07-04 07:06 | CP.PCM.PN ---
Subjective - Date & Time of Evaluation Date of Evaluation: 07/04/17 Time of Evaluation: 06:30 - Subjective Subjective: Lying in bed, awake, no distress,denies chest pain,denies shortness of breath Reason for consult and follow up: Cardiac evaluation, status post explor lap, history of coronary artery disease Seen and examined by me and Dr. Hill Objective - Vital Signs/Intake and Output Vital Signs (last 24 hours): Temp Pulse Resp BP Pulse Ox 98.7 F 86 20 163/87 H 97 07/03/17 16:47 07/04/17 05:03 07/03/17 16:47 07/03/17 17:57 07/03/17 16:47 Intake and Output: 07/04/17 07/04/17 06:59 18:59 Intake Total 1200 Output Total 1850 Balance -650 - Medications Medications: Current Medications Alprazolam (Xanax) 0.25 mg PO BID PRN; Protocol PRN Reason: Anxiety Stop: 07/06/17 19:29 Aspirin (Ecotrin) 81 mg PO DAILY [facility] Bacitracin (Bacitracin) 1 gm TOP TID [facility] Last Admin: 07/03/17 17:53 Dose: 1 dose Clopidogrel Bisulfate (Plavix) 75 mg PO DAILY [facility] Furosemide (Lasix) 20 mg PO DAILY [facility] Heparin Sodium (Porcine) (Heparin) 5,000 units SC Q8 [facility] PRN Reason: Protocol Last Admin: 07/04/17 05:37 Dose: 5,000 units Home Med (Home Med) 500 unit PO BID [facility] Home Med (Home Med) 8 unit PO HS [facility] Last Admin: 07/03/17 21:58 Dose: 8 unit Meropenem (Merrem Iv 1 Gm Premix) 50 mls @ 100 mls/hr IVPB Q8 [facility] PRN Reason: Protocol Last Admin: 07/04/17 05:38 Dose: 100 mls/hr Dextrose/Sodium Chloride (Dextrose 5%/0.45% Ns 1000 Ml) 1,000 mls @ 50 mls/hr IV .Q20H [facility] Last Admin: 07/03/17 17:52 Dose: 50 mls/hr Insulin Human Regular (Humulin R Low) 0 units SC Q6 [facility] PRN Reason: Protocol Last Admin: 07/04/17 06:09 Dose: 2 units Levalbuterol HCl (Xopenex) 0.63 mg [facility] Last Admin: 07/03/17 21:22 Dose: 0.63 mg Metoprolol Tartrate (Lopressor) 12.5 mg PO DAILY [facility] Last Admin: 06/30/17 10:31 Dose: Not Given Metoprolol Tartrate (Lopressor) 12.5 mg PO BID [facility] Last Admin: 07/03/17 17:57 Dose: 12.5 mg Montelukast Sodium (Singulair) 10 mg PO DAILY [facility] Last Admin: 06/30/17 10:32 Dose: Not Given Nortriptyline HCl (Pamelor) 10 mg PO DAILY [facility] Last Admin: 06/30/17 10:32 Dose: Not Given Ondansetron HCl (Zofran Inj) 4 mg IVP Q4H PRN PRN Reason: Nausea/Vomiting Oxybutynin Chloride (Ditropan Tab) 5 mg PO [facility] Pantoprazole Sodium (Protonix Inj) 40 mg IVP DAILY [facility] Last Admin: 07/03/17 11:05 Dose: 40 mg Potassium Phos/Sodium Phos (Neutra-Phos) 1 pkt PO TID [facility] Stop: 07/04/17 23:00 Last Admin: 07/03/17 17:53 Dose: 1 pkt - Labs Labs: 07/04/17 06:20 07/04/17 06:20 PT 13.7 SECONDS (9.4-12.5) H 06/30/17 12:00 INR 1.19 (0.93-1.08) H 06/30/17 12:00 APTT 28.5 Seconds (25.1-36.5) 06/30/17 12:00 - Constitutional Appears: No Acute Distress - Eye Exam Eye Exam: Normal appearance - ENT Exam ENT Exam: Mucous Membranes Moist - Respiratory Exam Respiratory Exam: Clear to Ausculation Bilateral, NORMAL BREATHING PATTERN - Cardiovascular Exam Cardiovascular Exam: +S1, +S2 - GI/Abdominal Exam GI & Abdominal Exam: Soft, Hypoactive Bowel Sounds Additional comments: with mike dina x 2 minimal drainage serosanguinous,colostomy, incision site dry ,no bleeding - Extremities Exam Extremities Exam: Full ROM, Normal Capillary Refill - Neurological Exam Neurological Exam: Alert, Awake, Oriented x3 - Psychiatric Exam Psychiatric exam: Normal Affect, Normal Mood - Skin Skin Exam: Intact, Normal Color, Warm Assessment and Plan - Assessment and Plan (Free Text) Assessment: 77 years old male who presented to ER for acute abdomen and had perforated viscus/sigmoid diverticulitis. Underwent Milli procedure and admitted to ICU intubated. history of stage 4 mantle cell lymphoma,lung cancer,CAD post stents. Plan: Stable Cardiac status BP and heart rate stable Telemetry- NSR- 80's On ASA 81 mg daily, Lopressor 12.5 mg BID Doing well post operatively K-3.5 will cover with 40 meq po KCl Physical therapy OOB to chair Continue current treatment Continue current medications Will follow up Plan and treatment discussed with Dr. Hill
[2017-07-04] MEDS ORDERED: Potassium Chloride 40 mEq/30 ml LIQ UD PO ONE (07:19)
[2017-07-04] MEDS: Levalbuterol 0.63 MG/3 ML Inhal Soln UD IH SCH (07:50)
[2017-07-04 08:25] VITALS: BP 155/90; RESP 19; TEMP 99
[2017-07-04] MEDS ORDERED: Potassium Chloride 20 mEq ER Tab PO ONE (09:45)
[2017-07-04] MEDS: Bacitracin Ointment 30 GM TUBE TOP SCH (10:19)
[2017-07-04] MEDS: TETRACAINE/BENZOCAINE/BUTAMBEN 20 GM SPRAY TP SCH (10:20)
[2017-07-04] MEDS: Potassium & Sodium Phosphate PO SCH ×2 (10:23→13:17)
--- NOTE | 2017-07-04 10:58 | CP.PCM.PN ---
Subjective - Date & Time of Evaluation Date of Evaluation: 07/04/17 Time of Evaluation: 09:00 - Subjective Subjective: PGY-[address] Myers's service Patient seen and examined at bedside. No acute events overnight. Patient was transferred out of ICU yesterday. Patient states that his pain is better, but continues to have abd pain. He eating breakfast and tolerating solid food diet. Patient in encouraged to sit while eating to avoid aspiration and OOB to chair. He denies pain anywhere else except his abdomen. He alert, awake, and oriented. He denies cough, fever, chills, nausea, vomiting, leg swelling. Objective - Vital Signs/Intake and Output Vital Signs (last 24 hours): Temp Pulse Resp BP Pulse Ox 99 F 51 L 19 155/90 H 97 07/04/17 08:24 07/04/17 08:24 07/04/17 08:24 07/04/17 08:24 07/04/17 08:24 Intake and Output: 07/04/17 07/04/17 06:59 18:59 Intake Total 1200 Output Total 1850 Balance -650 - Medications Medications: Current Medications Alprazolam (Xanax) 0.25 mg PO BID PRN; Protocol PRN Reason: Anxiety Stop: 07/06/17 19:29 Aspirin (Ecotrin) 81 mg PO DAILY [facility] [place] Last Admin: 07/04/17 10:20 Dose: 81 mg Bacitracin (Bacitracin) 1 gm TOP TID [facility] Last Admin: 07/04/17 10:19 Dose: 1 dose Clopidogrel Bisulfate (Plavix) 75 mg PO DAILY [facility] Furosemide (Lasix) 20 mg PO DAILY [facility] Heparin Sodium (Porcine) (Heparin) 5,000 units SC Q8 [facility] PRN Reason: Protocol Last Admin: 07/04/17 05:37 Dose: 5,000 units Home Med (Home Med) 500 unit PO BID [facility] [place] Last Admin: 07/04/17 10:20 Dose: 500 unit Home Med (Home Med) 8 unit PO HS [facility] [place] Last Admin: 07/03/17 21:58 Dose: 8 unit Meropenem (Merrem Iv 1 Gm Premix) 50 mls @ 100 mls/hr IVPB Q8 [facility] PRN Reason: Protocol Last Admin: 07/04/17 05:38 Dose: 100 mls/hr Dextrose/Sodium Chloride (Dextrose 5%/0.45% Ns 1000 Ml) 1,000 mls @ 50 mls/hr IV .Q20H [facility] [place] Last Admin: 07/03/17 17:52 Dose: 50 mls/hr Insulin Human Regular (Humulin R Low) 0 units SC Q6 [facility] [place] PRN Reason: Protocol Last Admin: 07/04/17 06:09 Dose: 2 units Levalbuterol HCl (Xopenex) 0.63 mg 0800,1999 [facility] Last Admin: 07/04/17 07:50 Dose: 0.63 mg Metoprolol Tartrate (Lopressor) 12.5 mg PO DAILY [facility] [place] Last Admin: 06/30/17 10:31 Dose: Not Given Metoprolol Tartrate (Lopressor) 12.5 mg PO BID [facility] [place] Last Admin: 07/04/17 10:22 Dose: 12.5 mg Montelukast Sodium (Singulair) 10 mg PO DAILY [facility] Last Admin: 06/30/17 10:32 Dose: Not Given Nortriptyline HCl (Pamelor) 10 mg PO DAILY [facility] Last Admin: 06/30/17 10:32 Dose: Not Given Ondansetron HCl (Zofran Inj) 4 mg IVP Q4H PRN PRN Reason: Nausea/Vomiting Oxybutynin Chloride (Ditropan Tab) 5 mg PO [facility] Pantoprazole Sodium (Protonix Inj) 40 mg IVP DAILY [facility] [place] Last Admin: 07/04/17 10:23 Dose: 40 mg Potassium Phos/Sodium Phos (Neutra-Phos) 1 pkt PO TID [facility] Stop: 07/04/17 23:00 Last Admin: 07/04/17 10:23 Dose: 1 pkt - Labs Labs: 07/04/17 06:20 07/04/17 06:20 PT 13.7 SECONDS (9.4-12.5) H 06/30/17 12:00 INR 1.19 (0.93-1.08) H 06/30/17 12:00 APTT 28.5 Seconds (25.1-36.5) 06/30/17 12:00 - Constitutional Appears: Well, No Acute Distress - Head Exam Head Exam: ATRAUMATIC, NORMOCEPHALIC - Eye Exam Eye Exam: EOMI, Normal appearance - ENT Exam ENT Exam: Mucous Membranes Moist - Respiratory Exam Respiratory Exam: Clear to Ausculation Bilateral, NORMAL BREATHING PATTERN. absent: Decreased Breath Sounds, Wheezes, Respiratory Distress - Cardiovascular Exam Cardiovascular Exam: REGULAR RHYTHM, +S1, +S2. absent: Bradycardia, Tachycardia , Murmur - GI/Abdominal Exam GI & Abdominal Exam: Soft, Tenderness, Normal Bowel Sounds. absent: Distended, Firm Additional comments: incision is clean, dry and intact, 2 abd drains with serosanguinous fluid - Neurological Exam Neurological Exam: Alert, Awake, Oriented x3 - Psychiatric Exam Psychiatric exam: Normal Affect, Normal Mood - Skin Skin Exam: Dry, Intact, Normal Color, Warm Assessment and Plan - Assessment and Plan (Free Text) Assessment: 77 Male history of stage IV mantle cell lymphomathat is quiescence, lung cancer s/p wedge resection, hypoglobulinemia reciving treatment, CAD s/p stent placement, diabetes, HTN, COPD who presented with an acute abdomen due to perforated sigmoid diverticulitis, s/p Milli procedure, admitted to ICU for hypoxemic respiratory failure s/p surgery, successfully extubated. Patient was transferred out of the ICU yesterday Plan: Patient is s/p Milli pod #4 He is extubated and off bipap, continue with Pulmonary toilet, continue Incentive spirometry Cetacaine spray started for throat pain patient's was advance diet per surgery continue to monitor KERI drainage output surgery following patient is afebrile without leukocytosis ID consulted, Continue with merrem day 5 cultures pending cardiology consulted, recommended Lopressor prn will continue to monitor renal status electrolytes replete as needed continue ISS-Medium, continue with accuchecks SCDs and Heparin for DVT prophylaxis OOB to chair Physical therapy aspiration precautions Patient transferred to remote tele yesterday Case reviewed and discussed with Dr. Myers
--- NOTE | 2017-07-04 12:03 | CP.PCM.PN ---
Subjective - Date & Time of Evaluation Date of Evaluation: 07/04/17 Time of Evaluation: 11:56 - Subjective Subjective: Surgery Progress Note: Patient seen and assessed at bedside. No acute events overnight. Tolerating diet without complaints. Denies fevers, chills, headache, chest pain, SOB, abdominal pain, N/V/D/C or any changes in urine output. Objective - Vital Signs/Intake and Output Vital Signs (last 24 hours): Temp Pulse Resp BP Pulse Ox 99 F 51 L 19 155/90 H 97 07/04/17 08:24 07/04/17 08:24 07/04/17 08:24 07/04/17 08:24 07/04/17 08:24 Intake and Output: 07/04/17 07/04/17 06:59 18:59 Intake Total 1200 Output Total 1850 Balance -650 - Medications Medications: Current Medications Alprazolam (Xanax) 0.25 mg PO BID PRN; Protocol PRN Reason: Anxiety Stop: 07/06/17 19:29 Aspirin (Ecotrin) 81 mg PO DAILY [facility] Last Admin: 07/04/17 10:20 Dose: 81 mg Bacitracin (Bacitracin) 1 gm TOP TID [facility] Last Admin: 07/04/17 10:19 Dose: 1 dose Clopidogrel Bisulfate (Plavix) 75 mg PO DAILY [facility] Furosemide (Lasix) 20 mg PO DAILY [facility] Heparin Sodium (Porcine) (Heparin) 5,000 units SC Q8 [facility] PRN Reason: Protocol Last Admin: 07/04/17 05:37 Dose: 5,000 units Home Med (Home Med) 500 unit PO BID [facility] Last Admin: 07/04/17 10:20 Dose: 500 unit Home Med (Home Med) 8 unit PO HS [facility] Last Admin: 07/03/17 21:58 Dose: 8 unit Meropenem (Merrem Iv 1 Gm Premix) 50 mls @ 100 mls/hr IVPB Q8 [facility] PRN Reason: Protocol Last Admin: 07/04/17 05:38 Dose: 100 mls/hr Dextrose/Sodium Chloride (Dextrose 5%/0.45% Ns 1000 Ml) 1,000 mls @ 50 mls/hr IV .Q20H [facility] Last Admin: 07/03/17 17:52 Dose: 50 mls/hr Insulin Human Regular (Humulin R Low) 0 units SC Q6 [facility] PRN Reason: Protocol Last Admin: 07/04/17 06:09 Dose: 2 units Levalbuterol HCl (Xopenex) 0.63 mg 799,1999 [facility] Last Admin: 07/04/17 07:50 Dose: 0.63 mg Metoprolol Tartrate (Lopressor) 12.5 mg PO DAILY [facility] Last Admin: 06/30/17 10:31 Dose: Not Given Metoprolol Tartrate (Lopressor) 12.5 mg PO BID [facility] Last Admin: 07/04/17 10:22 Dose: 12.5 mg Montelukast Sodium (Singulair) 10 mg PO DAILY [facility] Last Admin: 06/30/17 10:32 Dose: Not Given Nortriptyline HCl (Pamelor) 10 mg PO DAILY [facility] Last Admin: 06/30/17 10:32 Dose: Not Given Ondansetron HCl (Zofran Inj) 4 mg IVP Q4H PRN PRN Reason: Nausea/Vomiting Oxybutynin Chloride (Ditropan Tab) 5 mg PO [facility] Pantoprazole Sodium (Protonix Inj) 40 mg IVP DAILY [facility] Last Admin: 07/04/17 10:23 Dose: 40 mg Potassium Phos/Sodium Phos (Neutra-Phos) 1 pkt PO TID [facility] Stop: 07/04/17 23:00 Last Admin: 07/04/17 10:23 Dose: 1 pkt - Labs Labs: 07/04/17 06:20 07/04/17 06:20 PT 13.7 SECONDS (9.4-12.5) H 06/30/17 12:00 INR 1.19 (0.93-1.08) H 06/30/17 12:00 APTT 28.5 Seconds (25.1-36.5) 06/30/17 12:00 - Constitutional Appears: Non-toxic, No Acute Distress - Head Exam Head Exam: ATRAUMATIC, NORMOCEPHALIC - Eye Exam Eye Exam: EOMI, Normal appearance - Neck Exam Neck Exam: Full ROM - Respiratory Exam Respiratory Exam: NORMAL BREATHING PATTERN. absent: Accessory Muscle Use, Respiratory Distress - GI/Abdominal Exam GI & Abdominal Exam: Soft. absent: Distended, Firm, Guarding, Rigid, Tenderness , Rebound Additional comments: Midline incision intact with thierno with mild mariza-incisional TTP and without surrounding erythema or drainage Stoma in place with small amount of brown output and gas present; bowel sweat present - Extremities Exam Extremities Exam: Normal Inspection - Neurological Exam Neurological Exam: Alert, Awake, Oriented x3 - Psychiatric Exam Psychiatric exam: Normal Affect, Normal Mood - Skin Skin Exam: Dry, Intact, Normal Color, Warm Assessment and Plan - Assessment and Plan (Free Text) Assessment: 77 year old male with perforated viscous secondary to diverticulitis. S/P Rob's POD 4. Plan: -Continue to encourage OOB to chair and IS use -Heart Healthy Diet -Continue stoma care with output monitoring and ostomy training -Continue antibiotics as per ID -Continue pain management -DVT Prophylaxis -PT Evaluation Further recommendations as per Dr. Cm Méndez PGY1
[2017-07-04 12:08] VITALS: PULSE 86
--- NOTE | 2017-07-04 14:15 | CP.PCM.PN ---
Subjective - Date & Time of Evaluation Date of Evaluation: 07/04/17 Time of Evaluation: 10:40 - Subjective Subjective: Seen and examined at the bedside earlier today, chart reviewed. No acute overnight events reported. Patient tolerating solid food and has soft stool in colostomy bag no blood noted. Patient reports abdominal discomfort when moving around. No acute distress. Denies nausea or vomiting. Objective - Vital Signs/Intake and Output Vital Signs (last 24 hours): Temp Pulse Resp BP Pulse Ox 99 F 86 19 155/90 H 97 07/04/17 08:24 07/04/17 10:00 07/04/17 08:24 07/04/17 08:24 07/04/17 08:24 Intake and Output: 07/04/17 07/04/17 06:59 18:59 Intake Total 1200 Output Total 1850 Balance -650 - Medications Medications: Current Medications Alprazolam (Xanax) 0.25 mg PO BID PRN; Protocol PRN Reason: Anxiety Stop: 07/06/17 19:29 Aspirin (Ecotrin) 81 mg PO DAILY [facility] Last Admin: 07/04/17 10:20 Dose: 81 mg Bacitracin (Bacitracin) 1 gm TOP TID [facility] Last Admin: 07/04/17 10:19 Dose: 1 dose Clopidogrel Bisulfate (Plavix) 75 mg PO DAILY [facility] Furosemide (Lasix) 20 mg PO DAILY [facility] Heparin Sodium (Porcine) (Heparin) 5,000 units SC Q8 [facility] PRN Reason: Protocol Last Admin: 07/04/17 13:16 Dose: 5,000 units Home Med (Home Med) 500 unit PO BID [facility] Last Admin: 07/04/17 10:20 Dose: 500 unit Home Med (Home Med) 8 unit PO HS [facility] Last Admin: 07/03/17 21:58 Dose: 8 unit Meropenem (Merrem Iv 1 Gm Premix) 50 mls @ 100 mls/hr IVPB Q8 [facility] PRN Reason: Protocol Last Admin: 07/04/17 05:38 Dose: 100 mls/hr Dextrose/Sodium Chloride (Dextrose 5%/0.45% Ns 1000 Ml) 1,000 mls @ 50 mls/hr IV .Q20H [facility] Last Admin: 07/03/17 17:52 Dose: 50 mls/hr Insulin Human Regular (Humulin R Low) 0 units SC Q6 [facility] PRN Reason: Protocol Last Admin: 07/04/17 12:45 Dose: 2 units Levalbuterol HCl (Xopenex) 0.63 mg 08,1999 [facility] Last Admin: 07/04/17 07:50 Dose: 0.63 mg Metoprolol Tartrate (Lopressor) 12.5 mg PO DAILY [facility] Last Admin: 06/30/17 10:31 Dose: Not Given Metoprolol Tartrate (Lopressor) 12.5 mg PO BID [facility] Last Admin: 07/04/17 10:22 Dose: 12.5 mg Montelukast Sodium (Singulair) 10 mg PO DAILY [facility] Last Admin: 06/30/17 10:32 Dose: Not Given Nortriptyline HCl (Pamelor) 10 mg PO DAILY [facility] Last Admin: 06/30/17 10:32 Dose: Not Given Ondansetron HCl (Zofran Inj) 4 mg IVP Q4H PRN PRN Reason: Nausea/Vomiting Oxybutynin Chloride (Ditropan Tab) 5 mg PO [facility] Pantoprazole Sodium (Protonix Ec Tab) 40 mg PO DAILY [facility] Potassium Phos/Sodium Phos (Neutra-Phos) 1 pkt PO TID [facility] Stop: 07/04/17 23:00 Last Admin: 07/04/17 13:17 Dose: 1 pkt - Labs Labs: 07/04/17 06:20 07/04/17 06:20 PT 13.7 SECONDS (9.4-12.5) H 06/30/17 12:00 INR 1.19 (0.93-1.08) H 06/30/17 12:00 APTT 28.5 Seconds (25.1-36.5) 06/30/17 12:00 - Constitutional Appears: No Acute Distress - Head Exam Head Exam: NORMOCEPHALIC - Eye Exam Eye Exam: Normal appearance. absent: Scleral icterus - ENT Exam ENT Exam: Mucous Membranes Moist - Neck Exam Neck Exam: Normal Inspection - Respiratory Exam Respiratory Exam: NORMAL BREATHING PATTERN. absent: Respiratory Distress - Cardiovascular Exam Cardiovascular Exam: +S1, +S2 - GI/Abdominal Exam GI & Abdominal Exam: Soft, Normal Bowel Sounds. absent: Guarding, Tenderness, Rebound Additional comments: colostomy with soft pale stool, no blood. KERI drain 2 with serosanguineous fluid. Damon open to air dry and intact, no erythema or discharge. - Extremities Exam Extremities Exam: absent: Calf Tenderness, Pedal Edema - Neurological Exam Neurological Exam: Alert, Awake, Oriented x3 Assessment and Plan - Assessment and Plan (Free Text) Assessment: Assessment: Acute abdomen status post CT scan found to have free air, likely perforated diverticulitis Status post emergency exploratory laparotomy with Rob's procedure History of stage IV mantle cell lymphoma History of lung cancer status post wedge resection Coronary artery disease status post stents 4 Hypokalemia Plan: on heart healthy diet Continue IV antibiotics Monitor H&H and for overt GI bleed, H/H steady GI prophylaxis DVT prophylaxis Monitor electrolytes and replete as necessary surgical follow-up Seen and discussed with Dr. Casiano.
--- NOTE | 2017-07-04 14:25 | CP.PCM.PN ---
Subjective - Date & Time of Evaluation Date of Evaluation: 07/04/17 Time of Evaluation: 11:25 - Subjective Subjective: No fevers, not in distress, afebrile, still having right sided abdominal pain ( around the KERI drain site). No diarrhea. Objective - Vital Signs/Intake and Output Vital Signs (last 24 hours): Temp Pulse Resp BP Pulse Ox 99 F 51 L 19 155/90 H 97 07/04/17 08:24 07/04/17 08:24 07/04/17 08:24 07/04/17 08:24 07/04/17 08:24 Intake and Output: 07/04/17 07/04/17 06:59 18:59 Intake Total 1200 Output Total 1850 Balance -650 - Medications Medications: Current Medications Alprazolam (Xanax) 0.25 mg PO BID PRN; Protocol PRN Reason: Anxiety Stop: 07/06/17 19:29 Aspirin (Ecotrin) 81 mg PO DAILY [facility] Bacitracin (Bacitracin) 1 gm TOP TID [facility] Last Admin: 07/03/17 17:53 Dose: 1 dose Clopidogrel Bisulfate (Plavix) 75 mg PO DAILY [facility] Furosemide (Lasix) 20 mg PO DAILY [facility] Heparin Sodium (Porcine) (Heparin) 5,000 units SC Q8 [facility] PRN Reason: Protocol Last Admin: 07/04/17 05:37 Dose: 5,000 units Home Med (Home Med) 500 unit PO BID [facility] Home Med (Home Med) 8 unit PO HS [facility] Last Admin: 07/03/17 21:58 Dose: 8 unit Meropenem (Merrem Iv 1 Gm Premix) 50 mls @ 100 mls/hr IVPB Q8 [facility] PRN Reason: Protocol Last Admin: 07/04/17 05:38 Dose: 100 mls/hr Dextrose/Sodium Chloride (Dextrose 5%/0.45% Ns 1000 Ml) 1,000 mls @ 50 mls/hr IV .Q20H [facility] Last Admin: 07/03/17 17:52 Dose: 50 mls/hr Insulin Human Regular (Humulin R Low) 0 units SC Q6 [facility] PRN Reason: Protocol Last Admin: 07/04/17 06:09 Dose: 2 units Levalbuterol HCl (Xopenex) 0.63 mg IH 0800,1999 [facility] Last Admin: 07/04/17 07:50 Dose: 0.63 mg Metoprolol Tartrate (Lopressor) 12.5 mg PO DAILY [facility] Last Admin: 06/30/17 10:31 Dose: Not Given Metoprolol Tartrate (Lopressor) 12.5 mg PO BID [facility] Last Admin: 07/03/17 17:57 Dose: 12.5 mg Montelukast Sodium (Singulair) 10 mg PO DAILY [facility] Last Admin: 06/30/17 10:32 Dose: Not Given Nortriptyline HCl (Pamelor) 10 mg PO DAILY [facility] Last Admin: 06/30/17 10:32 Dose: Not Given Ondansetron HCl (Zofran Inj) 4 mg IVP Q4H PRN PRN Reason: Nausea/Vomiting Oxybutynin Chloride (Ditropan Tab) 5 mg PO [facility] Pantoprazole Sodium (Protonix Inj) 40 mg IVP DAILY [facility] Last Admin: 07/03/17 11:05 Dose: 40 mg Potassium Phos/Sodium Phos (Neutra-Phos) 1 pkt PO TID [facility] Stop: 07/04/17 23:00 Last Admin: 07/03/17 17:53 Dose: 1 pkt - Labs Labs: 07/04/17 06:20 07/04/17 06:20 PT 13.7 SECONDS (9.4-12.5) H 06/30/17 12:00 INR 1.19 (0.93-1.08) H 06/30/17 12:00 APTT 28.5 Seconds (25.1-36.5) 06/30/17 12:00 - Constitutional Appears: Non-toxic, Chronically Ill - Head Exam Head Exam: NORMAL INSPECTION - ENT Exam ENT Exam: Mucous Membranes Moist - Neck Exam Neck Exam: absent: Meningismus - Respiratory Exam Respiratory Exam: Decreased Breath Sounds - Cardiovascular Exam Cardiovascular Exam: +S1, +S2 - GI/Abdominal Exam GI & Abdominal Exam: Soft. absent: Tenderness Additional comments: right sided KERI drain in place with serosanguinous discharge, left sided colostomy intact, dry dressings in place Assessment and Plan - Assessment and Plan (Free Text) Plan: Assessment Severe sepsis S/P acute renal failure S/P ventilator-dependent respiratory failure due to acute perforated sigmoid colon with associated diverticulitis S/ P exploratory laparotomy, sigmoidectomy and colostomy POD #5 history of sepsis due to acute bronchitis, with systemic viral illness history of UTI with E. 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
--- NOTE | 2017-07-04 20:21 | PN ---
DATE: 07/04/2017 PULMONARY PROGRESS NOTE REFERRING PHYSICIAN: Ted Santoyo MD SUBJECTIVE: He is out of bed to chair. Night was unremarkable, tolerated BiPAP well. Has a small ulcer on the nose. No nausea, no vomiting. Mild abdominal pain. Colostomy working well. KERI drain has some bloody secretion. Leg, there is no edema. Neurologically awake and alert, follows simple commands. PHYSICAL EXAMINATION: VITAL SIGNS: Temperature is 99, heart rate is 56, respiratory rate is 20, blood pressure 155/90, pulse of 97% on room air. HEENT: Moist mucous membrane. Crowded airway. NECK: Supple. No JVD. LUNGS: Fair airflow with rhonchi. HEART: S1 and S2. ABDOMEN: Soft. KERI drain has bloody secretion. Colostomy bag has some stool. EXTREMITIES: There is no edema. NEUROLOGIC: Awake and alert, follows simple commands. MEDICATIONS: Reviewed, noted no new changes in medications reported since yesterday. LABORATORY DATA: Shows hemoglobin 10.3, hematocrit 30.9, WBC 5, platelet count is 148. Sodium 136, potassium 3.5, chloride 101, bicarbonate 29. BUN 10, creatinine 0.8. Glucose 74. Calcium is 8.1, phosphorus 2.6, magnesium 1.8. AST 22, ALT 27, alk phos is 81. Albumin is 2.9. IMPRESSION AND PLAN: Visceral perforation requiring laparotomy and colostomy; chronic obstructive lung disease; history of lung cancer requiring wedge resection in the past; has a mantle cell lymphoma, being on chemo; diabetes; may have component of sleep apnea syndrome; aspiration pneumonia. Pulmonary point of view, doing well. Encourage BiPAP use. Keep head at 45 degrees. May use face mask instead of full-face mask for the BiPAP to avoid nasal bridge ulcer. Bronchodilator. Antibiotics as per Infectious Diseases. Gastric prophylaxis, DVT prophylaxis. Will benefit from therapy. Thank you and we will follow with you. Thanh Duffy MD
--- NOTE | 2017-07-05 01:31 | PN ---
DATE: 07/04/2017 SUBJECTIVE: Patient is seen sitting in chair. He is awake, he is alert, he is comfortable. He complains of abdominal pain. He denies any shortness of breath. He denies any chest tightness. PHYSICAL EXAMINATION: GENERAL: Elderly male, sitting in chair. VITAL SIGNS: Blood pressure 155/90, heart rate 51, respiratory rate 19, temperature 99. HEENT: Normocephalic, atraumatic, positive pallor. NECK: Supple, no JVD. LUNGS: Bilateral equal air entry, bilaterally equal expansion. CARDIAC: S1, S2, regular rate and rhythm, no murmur, no rub. ABDOMEN: Obese, distended, soft, positive colostomy, bowel sounds present. INTAKE AND OUTPUT: 1700/2150. LABORATORY DATA: WBC 5, hemoglobin 10.3, hematocrit 31, platelets 148. Sodium 136, potassium 3.5, chloride 101, CO2 29, BUN 10, creatinine 0.8, glucose 193, calcium 8.1, phosphorus 2.6, magnesium 1.8, albumin 2.9. MEDICATIONS: D5 half-normal saline at 50, aspirin, heparin subcu, potassium 40 mEq given this morning, Lasix 20 mg daily, Lopressor 12.5 daily, Xanax, Zofran. ASSESSMENT: 1. Prerenal azotemia, resolved. 2. Mild hypokalemia. 3. Status post ruptured diverticulum. 4. Status post laparotomy, Milli pouch, colostomy. 5. History of mantle cell lymphoma. PLAN: 1. Replace potassium. 2. Advance diet as per Surgery. 3. Continue low-dose Lasix. 4. Stable from the renal standpoint. Natalie Raman MD
[2017-07-05] MEDS ORDERED: Pantoprazole 40 mg EC Tab PO SCH (10:00)
== END 2017-07-04 14:12 | DRG 853 ==
LOC: ED 17:00 → ERH 21:23 → CCU 23:52 → 3RSO 07-03 13:50
PROVIDERS: ADMIT Family Medicine; ATTEND Family Medicine
PROC: 6A550Z2 Pheresis of Platelets, Single (ICD-10-PCS; 2017-06-29)
PROC: 6A550Z2 Pheresis of Platelets, Single (ICD-10-PCS; 2017-06-29)
PROC: 30233N1 Transfusion of Nonautologous Red Blood Cells into Peripheral Vein, Percutaneous Approach (ICD-10-PCS; 2017-06-29)
PROC: 0DTG0ZZ Resection of Left Large Intestine, Open Approach (ICD-10-PCS; 2017-06-30)
PROC: 5A1945Z Respiratory Ventilation, 24-96 Consecutive Hours (ICD-10-PCS; 2017-06-30)
PROC: 0D1N0Z4 Bypass Sigmoid Colon to Cutaneous, Open Approach (ICD-10-PCS; principal; 2017-06-30 00:12)
DX: A41.9 Sepsis, unspecified organism (principal); J95.821 Acute postprocedural respiratory failure; J69.0 Pneumonitis due to inhalation of food and vomit; K65.0 Generalized (acute) peritonitis; K57.20 Diverticulitis of large intestine with perforation and abscess without bleeding; C83.10 Mantle cell lymphoma, unspecified site; D80.1 Nonfamilial hypogammaglobulinemia; E87.0 Hyperosmolality and hypernatremia; I42.9 Cardiomyopathy, unspecified; N17.9 Acute kidney failure, unspecified; N39.0 Urinary tract infection, site not specified; Z99.11 Dependence on respirator [ventilator] status; D63.8 Anemia in other chronic diseases classified elsewhere; E09.65 Drug or chemical induced diabetes mellitus with hyperglycemia; E11.22 Type 2 diabetes mellitus with diabetic chronic kidney disease; E11.65 Type 2 diabetes mellitus with hyperglycemia; E11.69 Type 2 diabetes mellitus with other specified complication; E78.5 Hyperlipidemia, unspecified; E83.39 Other disorders of phosphorus metabolism; E83.42 Hypomagnesemia; E87.6 Hypokalemia; H91.93 Unspecified hearing loss, bilateral; I12.9 Hypertensive chronic kidney disease with stage 1 through stage 4 chronic kidney disease, or unspecified chronic kidney disease; I25.10 Atherosclerotic heart disease of native coronary artery without angina pectoris; I27.20 Pulmonary hypertension, unspecified; I35.1 Nonrheumatic aortic (valve) insufficiency; J44.9 Chronic obstructive pulmonary disease, unspecified; K59.00 Constipation, unspecified; N18.2 Chronic kidney disease, stage 2 (mild); N40.0 Benign prostatic hyperplasia without lower urinary tract symptoms; R65.20 Severe sepsis without septic shock; Z79.02 Long term (current) use of antithrombotics/antiplatelets; Z79.82 Long term (current) use of aspirin; Z85.118 Personal history of other malignant neoplasm of bronchus and lung; Z86.19 Personal history of other infectious and parasitic diseases; B96.89 Other specified bacterial agents as the cause of diseases classified elsewhere; Z87.01 Personal history of pneumonia (recurrent); Z87.440 Personal history of urinary (tract) infections; Z90.79 Acquired absence of other genital organ(s); Z92.21 Personal history of antineoplastic chemotherapy; Z95.5 Presence of coronary angioplasty implant and graft

== ENCOUNTER 2017-07-04 14:15 | Inpatient (IN) | payer OTHER ==
[2017-07-04] MEDS: Bacitracin Ointment 30 GM TUBE TOP SCH (17:33)
[2017-07-04] MEDS: Insulin Reg-LOW-Coverage SC SCH ×2 (17:34→21:44)
[2017-07-04] MEDS: Potassium & Sodium Phosphate PO SCH (17:36)
[2017-07-04] MEDS: RANOLAZINE 500 MG PO SCH (17:38)
[2017-07-04] MEDS ORDERED: Non Formulary Medication (Ranolazine [Ranexa] 500 MG) PO SCH (18:00)
[2017-07-04 19:52] VITALS: BMI 28.7
[2017-07-04] MEDS ORDERED: Pneumococcal 23-Valent Vaccine IM ONE (19:52)
[2017-07-04] MEDS: Levalbuterol 0.63 MG/3 ML Inhal Soln UD IH SCH (19:58)
[2017-07-04] MEDS: SILODOSIN 8 MG PO SCH (21:43)
[2017-07-04] MEDS ORDERED: Home Med 1 UNIT PO SCH (22:00)
[2017-07-04] MEDS: Meropenem IV 1 gm in NS 50 ML IVPB SCH (22:12)
[2017-07-05] MEDS: Meropenem IV 1 gm in NS 50 ML IVPB SCH ×2 (05:58→14:18)
[2017-07-05 06:32] LABS: BASO # 0.02 K/mm3 (0.0-2.0); BASO % 0.4 % (0.0-3.0); EOS # 0.3 (0.0-0.7); EOS % 5.8 % (1.5-5.0); GRAN # 3.27 (1.4-6.5); GRAN % 62.9 % (50.0-68.0); HEMOGLOBIN 10.4 g/dL (14.0-18.0); LYMPH # 1.2 (1.2-3.4); LYMPH % 22.2 % (22.0-35.0); MEAN CELL VOLUME 85.3 fl (80.0-105.0); MEAN CORPUSCULAR HEMOGLOBIN 28.3 pg (25.0-35.0); MEAN CORPUSCULAR HGB CONC 33.1 g/dl (31.0-37.0); MEAN PLATELET VOLUME 9.7 fl (7.0-11.0); MONO # 0.5 (0.1-0.6); MONO % 8.7 % (1.0-6.0); RBC 3.68 10^6/uL (3.5-6.1); RED CELL DISTRIBUTION WIDTH 13.8 % (11.5-14.5); WHITE BLOOD COUNT 5.2 10^3/ul (4.5-11.0)
[2017-07-05] MEDS: Insulin Reg-LOW-Coverage SC SCH ×4 (06:47→21:36)
[2017-07-05] MEDS: Levalbuterol 0.63 MG/3 ML Inhal Soln UD IH SCH ×2 (07:09→20:09)
[2017-07-05 07:49] LABS: ALBUMIN 2.9 g/dL (3.0-4.8); ALT/SGPT 38 U/L (7-56); AST/SGOT 33 U/L (17-59); BLOOD UREA NITROGEN 10 mg/dL (7-21); CALCIUM 8.3 mg/dL (8.4-10.5); GFR AFRICAN-AMERICAN > 60; GFR NON-AFRICAN AMERICAN > 60
--- NOTE | 2017-07-05 08:19 | CP.PCM.PN ---
Subjective - Date & Time of Evaluation Date of Evaluation: 07/05/17 Time of Evaluation: 08:15 - Subjective Subjective: Surgery Progress Note: Patient seen and assessed at bedside in TCU. No acute events overnight. Continues to tolerate diet without complaints. Denies fevers, chills, headache, chest pain, SOB, abdominal pain, N/V/D/C or any changes in urine output. Objective - Vital Signs/Intake and Output Vital Signs (last 24 hours): Temp Pulse Resp BP Pulse Ox 98.6 F 79 18 124/65 95 07/05/17 05:42 07/05/17 05:42 07/05/17 05:42 07/05/17 05:58 07/05/17 05:42 Intake and Output: 07/05/17 07/05/17 06:59 18:59 Output Total 100 Balance -100 - Medications Medications: Current Medications Acetaminophen (Tylenol 325mg Tab) 650 mg PO Q4H PRN; Protocol PRN Reason: Pain, Mild (1-3) Alprazolam (Xanax) 0.25 mg PO BID PRN; Protocol PRN Reason: Anxiety Stop: 07/11/17 14:27 Aspirin (Ecotrin) 81 mg PO 0800 [facility] PRN Reason: Protocol Bacitracin (Bacitracin) 0 gm TOP TID [facility] PRN Reason: Protocol Last Admin: 07/04/17 17:33 Dose: 1 applic Clopidogrel Bisulfate (Plavix) 75 mg PO DAILY [facility] PRN Reason: Protocol Furosemide (Lasix) 20 mg PO 0630 [facility] PRN Reason: Protocol Last Admin: 07/05/17 05:58 Dose: 20 mg Heparin Sodium (Porcine) (Heparin) 5,000 units SC Q8 [facility] PRN Reason: Protocol Last Admin: 07/05/17 06:02 Dose: 5,000 units Home Med (Home Med) 1 unit PO HS [facility] PRN Reason: Protocol Last Admin: 07/04/17 21:43 Dose: 1 unit Meropenem (Merrem Iv 1 Gm Premix) 50 mls @ 100 mls/hr IVPB Q8 [facility] PRN Reason: Protocol Last Admin: 07/05/17 05:58 Dose: 100 mls/hr Insulin Human Regular (Humulin R Low) 0 units SC ACHS [facility] PRN Reason: Protocol Last Admin: 07/05/17 06:47 Dose: Not Given Levalbuterol HCl (Xopenex) 0.63 mg IH 0800,2000 [facility] PRN Reason: Protocol Last Admin: 07/05/17 07:09 Dose: 0.63 mg Metoprolol Tartrate (Lopressor) 12.5 mg PO 0800,1800 [facility] PRN Reason: Protocol Last Admin: 07/04/17 17:35 Dose: 12.5 mg Montelukast Sodium (Singulair) 10 mg PO HS [facility] PRN Reason: Protocol Last Admin: 07/04/17 21:44 Dose: 10 mg Ranolazine Er [ (Ranexa] 500 Mg) 500 mg PO BID [facility] Last Admin: 07/04/17 17:38 Dose: 500 mg Nortriptyline HCl (Pamelor) 10 mg PO DAILY [facility] PRN Reason: Protocol Ondansetron HCl (Zofran Inj) 4 mg IVP Q4H PRN; Protocol PRN Reason: Nausea/Vomiting Oxybutynin Chloride (Ditropan Tab) 5 mg PO HS [facility] PRN Reason: Protocol Last Admin: 07/04/17 21:43 Dose: 5 mg Pantoprazole Sodium (Protonix Inj) 40 mg IVP 0630 [facility] PRN Reason: Protocol Last Admin: 07/05/17 05:59 Dose: 40 mg Potassium Phos/Sodium Phos (Neutra-Phos) 1 pkt PO TID [facility] PRN Reason: Protocol Last Admin: 07/04/17 17:36 Dose: 1 pkt - Labs Labs: 07/05/17 06:00 07/05/17 06:00 - Constitutional Appears: Non-toxic, No Acute Distress - Head Exam Head Exam: ATRAUMATIC, NORMOCEPHALIC - Eye Exam Eye Exam: EOMI, Normal appearance - Respiratory Exam Respiratory Exam: NORMAL BREATHING PATTERN. absent: Accessory Muscle Use, Respiratory Distress - GI/Abdominal Exam GI & Abdominal Exam: Soft, Tenderness (Mild midline incision TTP; Interval improvement noted), Normal Bowel Sounds. absent: Distended, Firm, Guarding, Rigid, Rebound Additional comments: Midline incision intact with thierno and without surrounding erythema or drainage; Two drains put out a total of 100cc of serosanguineous Stoma in place; bowel sweat present - Neurological Exam Neurological Exam: Alert, Awake, Oriented x3 - Psychiatric Exam Psychiatric exam: Normal Affect, Normal Mood - Skin Skin Exam: Dry, Warm Assessment and Plan - Assessment and Plan (Free Text) Assessment: 77 year old male with perforated viscous secondary to diverticulitis. S/P Rob's POD 5. Plan: -Continue to encourage OOB to chair and IS use -Heart Healthy Diet as tolerated -Continue stoma care with output monitoring and ostomy training -Continue antibiotics as per ID -Continue pain management -DVT Prophylaxis -Continue PT Further recommendations as per Dr. Cm Méndez PGY1
[2017-07-05] MEDS: Bacitracin Ointment 30 GM TUBE TOP SCH ×3 (10:12→17:32)
[2017-07-05] MEDS: RANOLAZINE 500 MG PO SCH ×2 (10:15→17:33)
[2017-07-05] MEDS: Potassium & Sodium Phosphate PO SCH ×3 (10:18→17:33)
--- NOTE | 2017-07-05 10:23 | CP.PCM.PN ---
Subjective - Date & Time of Evaluation Date of Evaluation: 07/05/17 Time of Evaluation: 09:30 - Subjective Subjective: PGY-[address] Myers's service Patient seen and examined at bedside in TCU. No acute events overnight. Patient was transferred to TCU yesterday. Patient states that his pain is better. He eating breakfast and tolerating solid food diet, he is having output from his ostomy. Patient is sitting comfortably in h a chair eating breakfast. He is encouraged to sit while eating to avoid aspiration and OOB to chair. He denies pain anywhere else except his abdomen. He alert, awake, and oriented. He denies cough, fever, chills, nausea, vomiting, leg swelling. He states that he is using his incentive spirometer. Objective - Vital Signs/Intake and Output Vital Signs (last 24 hours): Temp Pulse Resp BP Pulse Ox 98.6 F 79 18 124/65 95 07/05/17 05:42 07/05/17 08:16 07/05/17 05:42 07/05/17 08:16 07/05/17 05:42 Intake and Output: 07/05/17 07/05/17 06:59 18:59 Output Total 100 Balance -100 - Medications Medications: Current Medications Acetaminophen (Tylenol 325mg Tab) 650 mg PO Q4H PRN; Protocol PRN Reason: Pain, Mild (1-3) Last Admin: 07/05/17 08:20 Dose: 650 mg Alprazolam (Xanax) 0.25 mg PO BID PRN; Protocol PRN Reason: Anxiety Stop: 07/11/17 14:27 Aspirin (Ecotrin) 81 mg PO 0800 [facility] PRN Reason: Protocol Last Admin: 07/05/17 08:15 Dose: 81 mg Bacitracin (Bacitracin) 0 gm TOP TID [facility] PRN Reason: Protocol Last Admin: 07/05/17 10:12 Dose: 1 applic Clopidogrel Bisulfate (Plavix) 75 mg PO DAILY [facility] PRN Reason: Protocol Last Admin: 07/05/17 10:14 Dose: 75 mg Furosemide (Lasix) 20 mg PO 0630 [facility] PRN Reason: Protocol Last Admin: 07/05/17 05:58 Dose: 20 mg Heparin Sodium (Porcine) (Heparin) 5,000 units SC Q8 [facility] PRN Reason: Protocol Last Admin: 07/05/17 06:02 Dose: 5,000 units Home Med (Home Med) 1 unit PO HS [facility] PRN Reason: Protocol Last Admin: 07/04/17 21:43 Dose: 1 unit Meropenem (Merrem Iv 1 Gm Premix) 50 mls @ 100 mls/hr IVPB Q8 [facility] PRN Reason: Protocol Last Admin: 07/05/17 05:58 Dose: 100 mls/hr Insulin Human Regular (Humulin R Low) 0 units SC ACHS [facility] PRN Reason: Protocol Last Admin: 07/05/17 06:47 Dose: Not Given Levalbuterol HCl (Xopenex) 0.63 mg IH 0800,2000 [facility] PRN Reason: Protocol Last Admin: 07/05/17 07:09 Dose: 0.63 mg Metoprolol Tartrate (Lopressor) 12.5 mg PO 0800,1800 [facility] PRN Reason: Protocol Last Admin: 07/05/17 08:16 Dose: 12.5 mg Montelukast Sodium (Singulair) 10 mg PO HS [facility] PRN Reason: Protocol Last Admin: 07/04/17 21:44 Dose: 10 mg Ranolazine Er [ (Ranexa] 500 Mg) 500 mg PO BID [facility] Last Admin: 07/05/17 10:15 Dose: 500 mg Nortriptyline HCl (Pamelor) 10 mg PO DAILY [facility] PRN Reason: Protocol Last Admin: 07/05/17 10:14 Dose: 10 mg Ondansetron HCl (Zofran Inj) 4 mg IVP Q4H PRN; Protocol PRN Reason: Nausea/Vomiting Oxybutynin Chloride (Ditropan Tab) 5 mg PO HS [facility] PRN Reason: Protocol Last Admin: 07/04/17 21:43 Dose: 5 mg Pantoprazole Sodium (Protonix Inj) 40 mg IVP 0630 [facility] PRN Reason: Protocol Last Admin: 07/05/17 05:59 Dose: 40 mg Potassium Phos/Sodium Phos (Neutra-Phos) 1 pkt PO TID [facility] PRN Reason: Protocol Last Admin: 07/05/17 10:18 Dose: 1 pkt - Labs Labs: 07/05/17 06:00 07/05/17 06:00 - Constitutional Appears: Well, No Acute Distress, Unkempt - Head Exam Head Exam: ATRAUMATIC - Eye Exam Eye Exam: EOMI, Normal appearance - ENT Exam ENT Exam: Mucous Membranes Moist - Respiratory Exam Respiratory Exam: Clear to Ausculation Bilateral, NORMAL BREATHING PATTERN. absent: Decreased Breath Sounds, Rhonchi, Wheezes - Cardiovascular Exam Cardiovascular Exam: REGULAR RHYTHM, +S1, +S2. absent: Tachycardia, Murmur - GI/Abdominal Exam GI & Abdominal Exam: Soft, Tenderness, Normal Bowel Sounds. absent: Distended, Firm Additional comments: incision clean, dry and intact. output in ostomy - Extremities Exam Extremities Exam: Normal Inspection. absent: Pedal Edema, Tenderness - Neurological Exam Neurological Exam: Alert, Awake, Oriented x3 Assessment and Plan - Assessment and Plan (Free Text) Assessment: 77 Male history of stage IV mantle cell lymphomathat is quiescence, lung cancer s/p wedge resection, hypoglobulinemia reciving treatment, CAD s/p stent placement, diabetes, HTN, COPD who presented with an acute abdomen due to perforated sigmoid diverticulitis, s/p Milli procedure, admitted to ICU for hypoxemic respiratory failure s/p surgery, successfully extubated. Patient was transferred out of the ICU yesterday Plan: Patient is s/p Milli pod #5 patient was transferred to TCU cont with Pulmonary toilet, continue Incentive spirometry Cetacaine spray started for throat pain continue reg diet, patient tolerating continue to monitor KERI drainage output surgery following patient is afebrile without leukocytosis ID consulted, Continue with merrem day 6 cultures pending cardiology consulted, recommended Lopressor prn will continue to monitor renal status electrolytes replete as needed continue ISS-Medium, continue with accuchecks SCDs and Heparin for DVT prophylaxis OOB to chair Physical therapy aspiration precautions Case reviewed and discussed with Dr. Myers
--- NOTE | 2017-07-05 12:03 | CP.PCM.CON ---
History of Present Illness - History of Present Illness History of Present Illness: Awake, lying in bed, wanted some water, denies chest pain, denies shortness of breath Reason for consult: Continuity of care in TCU, cardiac follow up, status post explor lap for perforated viscus, Rob's procedure with colostomy. History of coronary artery disease with multiple stents,hypertension. Brief history of present illness: A 77 year old who came into the ER for severe abdominal pain. work up showed perforated viscus and underwent explor lap and Rob's procedure with colostomy. Transferred to ICU immediate post op intubated. History of coronary artery disease with multiple stents,mantle cell lymphoma, lung cancer, post wedge resection, hypertension Seen and examined by me and Dr. Hill Review of Systems - Constitutional Constitutional: As Per HPI - Cardiovascular Additional comments: denies chest pain, denies shortness of breath - Respiratory Respiratory: As Per HPI Additional comments: denies dyspnea on exertion - Gastrointestinal Additional comments: pain at surgical site - Genitourinary Additional comments: denies problems - Neurological Additional comments: denies siezures Past Patient History - Infectious Disease Hx of Infectious Diseases: None - Tetanus Immunizations Tetanus Immunization: Unknown - Past Medical History & Family History Past Medical History?: Yes - Past Social History Smoking Status: Never Smoked - CARDIAC Hx Cardiac Disorders: Yes (coronary artery disease post stents) Hx Hypertension: Yes - PULMONARY Hx Respiratory Disorders: Yes Hx Asthma: Yes Hx Bronchitis: Yes Hx Pneumonia: Yes - NEUROLOGICAL Hx Neurological Disorder: Yes - HEENT Hx HEENT Problems: Yes (wears glasses) Hx Deafness: Yes ([place], b/l hearing aids) - RENAL Hx Chronic Kidney Disease: No - ENDOCRINE/METABOLIC Hx Endocrine Disorders: Yes Hx Diabetes Mellitus Type 2: Yes - HEMATOLOGICAL/ONCOLOGICAL Hx Blood Disorders: Yes Hx Anemia: Yes Hx Cancer: Yes (mantle cell lymphoma "active") - INTEGUMENTARY Hx Dermatological Problems: No - MUSCULOSKELETAL/RHEUMATOLOGICAL Hx Falls: Yes - GASTROINTESTINAL Hx Gastrointestinal Disorders: Yes (POSTPERFORATED SIGMOID COLON-POST EXPLORATORY LAP,SIGMOIDECTOMY,COLOSTOMY,) - GENITOURINARY/GYNECOLOGICAL Hx Genitourinary Disorders: No Hx Reproductive Disorders: Yes (BPH) - PSYCHIATRIC Hx Psychophysiologic Disorder: No Hx Substance Use: No - SURGICAL HISTORY Hx Cardiac Catheterization: Yes (angioplasty 4 stents) Hx Coronary Stent: Yes Hx Orthopedic Surgery: Yes (right thumb) - ANESTHESIA Hx Anesthesia: Yes Hx Anesthesia Reactions: No Hx Malignant Hyperthermia: No Meds Allergies/Adverse Reactions: Allergies Allergy/AdvReac Type Severity Reaction Status Date / Time azithromycin Allergy Severe ANGIOEDEMA Verified 06/18/17 19:13 erythromycin base Allergy Severe ANGIOEDEMA Verified 06/18/17 19:13 Penicillins Allergy Severe ANAPHYLAXIS Verified 06/18/17 19:13 cephalexin monohydrate Allergy Intermediate RASH Verified 06/18/17 19:13 [From Keflex] gabapentin Allergy Intermediate RASH Verified 06/18/17 19:13 pregabalin Allergy Intermediate RASH Verified 06/18/17 19:13 Sulfa (Sulfonamide Allergy Intermediate RASH Verified 06/18/17 19:13 Antibiotics) nitro paste Allergy Intermediate DIZZINESS/H Uncoded 06/18/17 19:13 YPOTENSION Imbrovica Allergy FEVER Uncoded 06/18/17 19:13 - Medications Medications: Current Medications Acetaminophen (Tylenol 325mg Tab) 650 mg PO Q4H PRN; Protocol PRN Reason: Pain, Mild (1-3) Last Admin: 07/05/17 08:20 Dose: 650 mg Alprazolam (Xanax) 0.25 mg PO BID PRN; Protocol PRN Reason: Anxiety Stop: 07/11/17 14:27 Aspirin (Ecotrin) 81 mg PO 0800 [facility] PRN Reason: Protocol Last Admin: 07/05/17 08:15 Dose: 81 mg Bacitracin (Bacitracin) 0 gm TOP TID [facility] PRN Reason: Protocol Last Admin: 07/05/17 10:12 Dose: 1 applic Clopidogrel Bisulfate (Plavix) 75 mg PO DAILY [facility] PRN Reason: Protocol Last Admin: 07/05/17 10:14 Dose: 75 mg Furosemide (Lasix) 20 mg PO 0630 [facility] PRN Reason: Protocol Last Admin: 07/05/17 05:58 Dose: 20 mg Heparin Sodium (Porcine) (Heparin) 5,000 units SC Q8 [facility] PRN Reason: Protocol Last Admin: 07/05/17 06:02 Dose: 5,000 units Home Med (Home Med) 1 unit PO HS [facility] PRN Reason: Protocol Last Admin: 07/04/17 21:43 Dose: 1 unit Meropenem (Merrem Iv 1 Gm Premix) 50 mls @ 100 mls/hr IVPB Q8 [facility] PRN Reason: Protocol Last Admin: 07/05/17 05:58 Dose: 100 mls/hr Insulin Human Regular (Humulin R Low) 0 units SC ACHS [facility] PRN Reason: Protocol Last Admin: 07/05/17 06:47 Dose: Not Given Levalbuterol HCl (Xopenex) 0.63 mg IH 0800,2000 [facility] PRN Reason: Protocol Last Admin: 07/05/17 07:09 Dose: 0.63 mg Metoprolol Tartrate (Lopressor) 12.5 mg PO 0800,1800 [facility] PRN Reason: Protocol Last Admin: 07/05/17 08:16 Dose: 12.5 mg Montelukast Sodium (Singulair) 10 mg PO HS [facility] PRN Reason: Protocol Last Admin: 07/04/17 21:44 Dose: 10 mg Ranolazine Er [ (Ranexa] 500 Mg) 500 mg PO BID [facility] Last Admin: 07/05/17 10:15 Dose: 500 mg Nortriptyline HCl (Pamelor) 10 mg PO DAILY [facility] PRN Reason: Protocol Last Admin: 07/05/17 10:14 Dose: 10 mg Ondansetron HCl (Zofran Inj) 4 mg IVP Q4H PRN; Protocol PRN Reason: Nausea/Vomiting Oxybutynin Chloride (Ditropan Tab) 5 mg PO HS [facility] PRN Reason: Protocol Last Admin: 07/04/17 21:43 Dose: 5 mg Pantoprazole Sodium (Protonix Inj) 40 mg IVP 0630 [facility] PRN Reason: Protocol Last Admin: 07/05/17 05:59 Dose: 40 mg Potassium Phos/Sodium Phos (Neutra-Phos) 1 pkt PO TID [facility] PRN Reason: Protocol Last Admin: 07/05/17 10:18 Dose: 1 pkt Physical Exam - Constitutional Appears: No Acute Distress - Head Exam Head Exam: NORMOCEPHALIC - Eye Exam Eye Exam: Normal appearance - ENT Exam ENT Exam: Mucous Membranes Moist - Respiratory Exam Respiratory Exam: Clear to Auscultation Bilateral - Cardiovascular Exam Cardiovascular Exam: REGULAR RHYTHM, +S1, +S2 - GI/Abdominal Exam Additional comments: incision mid lower abdomen dry, with mike andrade serosanguinous drainage, colostomy - Exam Additional comments: uses urinal - Extremities Exam Extremities exam: Positive for: normal capillary refill, normal inspection - Neurological Exam Neurological exam: Alert, Oriented x3 - Psychiatric Exam Psychiatric exam: Normal Affect, Normal Mood - Skin Skin Exam: Intact, Normal Color, Warm Results - Vital Signs Recent Vital Signs: Last Vital Signs Temp 98.6 F 07/05/17 05:42 Pulse 79 07/05/17 08:16 Resp 18 07/05/17 05:42 BP 124/65 07/05/17 08:16 Pulse Ox 95 07/05/17 05:42 - Labs Result Diagrams: 07/05/17 06:00 07/05/17 06:00 Labs: Laboratory Results - last 24 hr 07/04/17 07/04/17 07/05/17 16:29 21:35 04:58 WBC RBC Hgb Hct MCV MCH MCHC RDW Plt Count MPV Gran % Lymph % (Auto) [place] % (Auto) Eos % (Auto) Baso % (Auto) Gran # Lymph # (Auto) [place] # (Auto) Eos # (Auto) Baso # (Auto) Sodium Potassium Chloride Carbon Dioxide Anion Gap BUN Creatinine Est GFR ( Amer) Est GFR (Non-Af Amer) POC Glucose (mg/dL) 154 H 139 H 122 H Random Glucose Calcium Total Bilirubin AST ALT Alkaline Phosphatase Total Protein Albumin Globulin Albumin/Globulin Ratio 07/05/17 07/05/17 06:00 06:00 WBC 5.2 RBC 3.68 Hgb 10.4 L Hct 31.4 L MCV 85.3 MCH 28.3 MCHC 33.1 RDW 13.8 Plt Count 148 MPV 9.7 Gran % 62.9 Lymph % (Auto) 22.2 [place] % (Auto) 8.7 H Eos % (Auto) 5.8 H Baso % (Auto) 0.4 Gran # 3.27 Lymph # (Auto) 1.2 [place]ill # (Auto) 0.5 Eos # (Auto) 0.3 Baso # (Auto) 0.02 Sodium 137 Potassium 4.1 Chloride 102 Carbon Dioxide 30 Anion Gap 10 BUN 10 Creatinine 0.8 Est GFR ( Amer) > 60 Est GFR (Non-Af Amer) > 60 POC Glucose (mg/dL) Random Glucose 128 H Calcium 8.3 L Total Bilirubin 1.1 AST 33 ALT 38 Alkaline Phosphatase 97 Total Protein 5.8 Albumin 2.9 L Globulin 2.9 Albumin/Globulin Ratio 1.0 L Assessment & Plan - Assessment and Plan (Free Text) Assessment: A 77 year old who came into the ER for severe abdominal pain. work up showed perforated viscus and underwent explor lap and Rob's procedure with colostomy. Transferred to ICU immediate post op intubated. History of coronary artery disease with multiple stents,mantle cell lymphoma, lung cancer, post wedge resection, Diabetes, hypertension. eventually transferred to telemetry then to TCU for reconditioning. Plan: Doing well post surgery Physical therapy Cardiac status stable Denies chest pain BP and heart rate stable Continue current treatment Continue current medications Will follow up Thank you Dr. Santoyo for giving us the opportunity to take care of Mr. Marques.
--- NOTE | 2017-07-05 16:23 | CP.PCM.PN ---
Subjective - Date & Time of Evaluation Date of Evaluation: 07/05/17 Time of Evaluation: 11:05 - Subjective Subjective: Seen and examined at the bedside earlier today, chart review. Patient tolerating oral intake. Stool noted from colostomy, no overt GI bleed. Patient with no complaints. Denies nausea, vomiting, or abdominal pain. Objective - Vital Signs/Intake and Output Vital Signs (last 24 hours): Temp Pulse Resp BP Pulse Ox 98.1 F 83 18 116/71 96 07/05/17 12:30 07/05/17 12:30 07/05/17 12:30 07/05/17 12:30 07/05/17 12:30 Intake and Output: 07/05/17 07/05/17 06:59 18:59 Output Total 100 50 Balance -100 -50 - Medications Medications: Current Medications Acetaminophen (Tylenol 325mg Tab) 650 mg PO Q4H PRN; Protocol PRN Reason: Pain, Mild (1-3) Last Admin: 07/05/17 08:20 Dose: 650 mg Alprazolam (Xanax) 0.25 mg PO BID PRN; Protocol PRN Reason: Anxiety Stop: 07/11/17 14:27 Aspirin (Ecotrin) 81 mg PO 0800 ALEX PRN Reason: Protocol Last Admin: 07/05/17 08:15 Dose: 81 mg Bacitracin (Bacitracin) 0 gm TOP TID ALEX PRN Reason: Protocol Last Admin: 07/05/17 13:53 Dose: Not Given Clopidogrel Bisulfate (Plavix) 75 mg PO DAILY ALEX PRN Reason: Protocol Last Admin: 07/05/17 10:14 Dose: 75 mg Furosemide (Lasix) 20 mg PO 0630 ALEX PRN Reason: Protocol Last Admin: 07/05/17 05:58 Dose: 20 mg Heparin Sodium (Porcine) (Heparin) 5,000 units SC Q8 ALEX PRN Reason: Protocol Last Admin: 07/05/17 14:18 Dose: 5,000 units Home Med (Home Med) 1 unit PO HS ALEX PRN Reason: Protocol Last Admin: 07/04/17 21:43 Dose: 1 unit Meropenem (Merrem Iv 1 Gm Premix) 50 mls @ 100 mls/hr IVPB Q8 ALEX PRN Reason: Protocol Last Admin: 07/05/17 14:18 Dose: 100 mls/hr Insulin Human Regular (Humulin R Low) 0 units SC ACHS ALEX PRN Reason: Protocol Last Admin: 07/05/17 12:16 Dose: 1 units Levalbuterol HCl (Xopenex) 0.63 mg IH 0800,2000 [facility] PRN Reason: Protocol Last Admin: 07/05/17 07:09 Dose: 0.63 mg Metoprolol Tartrate (Lopressor) 12.5 mg PO 0800,1800 [facility] PRN Reason: Protocol Last Admin: 07/05/17 08:16 Dose: 12.5 mg Montelukast Sodium (Singulair) 10 mg PO HS ALEX PRN Reason: Protocol Last Admin: 07/04/17 21:44 Dose: 10 mg Ranolazine Er [ (Ranexa] 500 Mg) 500 mg PO BID [facility] Last Admin: 07/05/17 10:15 Dose: 500 mg Nortriptyline HCl (Pamelor) 10 mg PO DAILY [facility] PRN Reason: Protocol Last Admin: 07/05/17 10:14 Dose: 10 mg Ondansetron HCl (Zofran Inj) 4 mg IVP Q4H PRN; Protocol PRN Reason: Nausea/Vomiting Oxybutynin Chloride (Ditropan Tab) 5 mg PO HS [facility] PRN Reason: Protocol Last Admin: 07/04/17 21:43 Dose: 5 mg Pantoprazole Sodium (Protonix Inj) 40 mg IVP 0630 [facility] PRN Reason: Protocol Last Admin: 07/05/17 05:59 Dose: 40 mg Potassium Phos/Sodium Phos (Neutra-Phos) 1 pkt PO TID [facility] PRN Reason: Protocol Last Admin: 07/05/17 14:18 Dose: 1 pkt - Labs Labs: 07/05/17 06:00 07/05/17 06:00 - Constitutional Appears: No Acute Distress - Head Exam Head Exam: NORMOCEPHALIC - Eye Exam Eye Exam: Normal appearance. absent: Scleral icterus - ENT Exam ENT Exam: Mucous Membranes Moist - Respiratory Exam Respiratory Exam: NORMAL BREATHING PATTERN. absent: Respiratory Distress - Cardiovascular Exam Cardiovascular Exam: +S1, +S2 - GI/Abdominal Exam GI & Abdominal Exam: Soft, Normal Bowel Sounds. absent: Guarding, Rebound Additional comments: colostomy with stool, stoma pink, KERI drain times to present with serosanguineous fluid, midline incision with thierno open to air, dry and intact - Extremities Exam Extremities Exam: absent: Calf Tenderness, Pedal Edema - Neurological Exam Neurological Exam: Alert, Awake, Oriented x3 Assessment and Plan - Assessment and Plan (Free Text) Assessment: Assessment: Acute abdomen status post CT scan found to have free air, likely perforated diverticulitis Status post emergency exploratory laparotomy with Rob's procedure History of stage IV mantle cell lymphoma History of lung cancer status post wedge resection Coronary artery disease status post stents 4 Hypokalemia Plan: on heart healthy diet On Plavix Continue IV antibiotics Monitor H&H and for overt GI bleed, H/H steady GI prophylaxis DVT prophylaxis, on heparin SQ Monitor electrolytes and replete as necessary surgical follow-up Seen and discussed with Dr. Casiano.
[2017-07-05] MEDS: SILODOSIN 8 MG PO SCH (21:35)
--- NOTE | 2017-07-06 04:41 | CON ---
DATE: 07/05/2017 LOCATION: The patient is seen earlier today in room 318. CHIEF COMPLAINT: Weakness times several days. HISTORY OF PRESENT ILLNESS: This is a 77-year-old male with a history of mantle cell lymphoma, has had chemotherapy in the past, history of coronary artery disease, BPH, dyslipidemia, bilateral pneumonia, bronchitis, asthma, urinary tract infection and candidemia who is in the hospital, had exploratory laparotomy, sigmoid resection, colostomy was done and with a history of prostatectomy with an extended history of ALLERGY TO AZITHROMYCIN, ERYTHROMYCIN, PENICILLIN, CEPHALEXIN and GABAPENTIN, who is now transferred to transitional care for further care and physical therapy. REVIEW OF SYSTEMS: Reveals the patient is not having any fevers, any chills. No nausea. No vomiting. Tolerating the diet well. No abdominal pain. No diarrhea or constipation. No bright red blood per rectum. PAST MEDICAL HISTORY: Significant for mantle cell lymphoma, coronary artery disease, urinary tract infections, history of candidemia, BPH, dyslipidemia, bilateral pneumonia, bronchitis, asthma and hypertension. PAST SURGICAL HISTORY: Significant for prostatectomy and a recent exploratory sigmoid resection and colostomy. MEDICATIONS: Reviewed. PHYSICAL EXAMINATION: VITAL SIGNS: The patient's temperature is 98, blood pressure is 116/70, respiratory rate of 18, heart rate of 79. HEENT: Unremarkable. NECK: Supple. LUNGS: Decreased breath sounds. HEART: Normal S1 and S2. ABDOMEN: Soft and nontender. No organomegaly. No rebound. LABORATORY DATA: Revels white count of 5.2, hemoglobin of 10, platelets of 148. Chemistries revels BUN of 10, creatinine of 0.8. Urinalysis is noted. Microbiology revels the urine cultures are negative and MRSA is not detected. The blood cultures are negative. The sputum culture in 2017 is positive for staph aureus and also an E. Coli in the urine and did have also in 2017, the patient did have zahraa parapsilosis in 2015 in the blood. ASSESSMENT AND PLAN: This is a 77-year-old male with visceral perforation requiring laparotomy and colostomy, chronic obstructive lung disease, history of mantle cell lymphoma, history of lung cancer requiring wedge resection and coronary artery disease, benign prostatic hypertrophy, dyslipidemia, bilateral pneumonia, bronchitis, asthma, hypertension, now post procedure day #6 after perforated sigmoid colon, associated diverticulitis, status post exploratory laparotomy, sigmoidectomy, colostomy, on day #6 of meropenem, doing well, now in transitional care for physical therapy. We will discontinue the meropenem. The patient has had adequate therapy. His white count is normal and he is afebrile and he is tolerating his diet. No further antibiotics. Discontinue the meropenem. Marvin Callahan MD
[2017-07-06] MEDS: Insulin Reg-LOW-Coverage SC SCH ×4 (06:31→21:55)
--- NOTE | 2017-07-06 06:36 | CP.PCM.PN ---
Subjective - Date & Time of Evaluation Date of Evaluation: 07/06/17 Time of Evaluation: 06:20 - Subjective Subjective: Lying in bed, sleeping but easily awaken, denies chest pain, denies shortness of breath Reason for consult: Continuity of care in TCU, cardiac follow up, status post explor lap for perforated viscus, Rob's procedure with colostomy. History of coronary artery disease with multiple stents,hypertension. Seen and examined by me and Dr. Hill Objective - Vital Signs/Intake and Output Vital Signs (last 24 hours): Temp Pulse Resp BP Pulse Ox 97.6 F 78 18 109/61 97 07/05/17 17:00 07/05/17 17:00 07/05/17 17:00 07/06/17 05:42 07/05/17 17:00 Intake and Output: 07/05/17 07/06/17 18:59 06:59 Output Total 50 Balance -50 - Medications Medications: Current Medications Acetaminophen (Tylenol 325mg Tab) 650 mg PO Q4H PRN; Protocol PRN Reason: Pain, Mild (1-3) Last Admin: 07/05/17 08:20 Dose: 650 mg Alprazolam (Xanax) 0.25 mg PO BID PRN; Protocol PRN Reason: Anxiety Stop: 07/11/17 14:27 Aspirin (Ecotrin) 81 mg PO 0800 ALEX PRN Reason: Protocol Last Admin: 07/05/17 08:15 Dose: 81 mg Bacitracin (Bacitracin) 0 gm TOP TID ALEX PRN Reason: Protocol Last Admin: 07/05/17 17:32 Dose: 1 applic Clopidogrel Bisulfate (Plavix) 75 mg PO DAILY ALEX PRN Reason: Protocol Last Admin: 07/05/17 10:14 Dose: 75 mg Furosemide (Lasix) 20 mg PO 0630 ALEX PRN Reason: Protocol Last Admin: 07/06/17 05:42 Dose: 20 mg Heparin Sodium (Porcine) (Heparin) 5,000 units SC Q8 ALEX PRN Reason: Protocol Last Admin: 07/06/17 05:41 Dose: 5,000 units Home Med (Home Med) 1 unit PO HS ALXE PRN Reason: Protocol Last Admin: 07/05/17 21:35 Dose: 1 unit Insulin Human Regular (Humulin R Low) 0 units SC ACHS ALEX PRN Reason: Protocol Last Admin: 07/06/17 06:31 Dose: Not Given Levalbuterol HCl (Xopenex) 0.63 mg IH 0800,2000 [facility] PRN Reason: Protocol Last Admin: 07/05/17 20:09 Dose: 0.63 mg Metoprolol Tartrate (Lopressor) 12.5 mg PO 0800,1800 [facility] PRN Reason: Protocol Last Admin: 07/05/17 17:32 Dose: 12.5 mg Montelukast Sodium (Singulair) 10 mg PO HS ALEX PRN Reason: Protocol Last Admin: 07/05/17 21:36 Dose: 10 mg Ranolazine Er [ (Ranexa] 500 Mg) 500 mg PO BID [facility] Last Admin: 07/05/17 17:33 Dose: 500 mg Nortriptyline HCl (Pamelor) 10 mg PO DAILY [facility] PRN Reason: Protocol Last Admin: 07/05/17 10:14 Dose: 10 mg Ondansetron HCl (Zofran Inj) 4 mg IVP Q4H PRN; Protocol PRN Reason: Nausea/Vomiting Oxybutynin Chloride (Ditropan Tab) 5 mg PO HS ALEX PRN Reason: Protocol Last Admin: 07/05/17 21:35 Dose: 5 mg Pantoprazole Sodium (Protonix Inj) 40 mg IVP 0630 [facility] PRN Reason: Protocol Last Admin: 07/06/17 05:43 Dose: 40 mg Potassium Phos/Sodium Phos (Neutra-Phos) 1 pkt PO TID [facility] PRN Reason: Protocol Last Admin: 07/05/17 17:33 Dose: 1 pkt - Labs Labs: 07/05/17 06:00 07/05/17 06:00 - Constitutional Appears: No Acute Distress - Head Exam Head Exam: NORMOCEPHALIC - Eye Exam Eye Exam: Normal appearance - ENT Exam ENT Exam: Mucous Membranes Moist - Neck Exam Neck Exam: Full ROM, Normal Inspection - Respiratory Exam Respiratory Exam: Decreased Breath Sounds, Clear to Ausculation Bilateral, NORMAL BREATHING PATTERN Additional comments: CPAP/BIPAP at night - Cardiovascular Exam Cardiovascular Exam: +S1, +S2 Additional comments: right subclavian villa cath, site no signs of infection - GI/Abdominal Exam GI & Abdominal Exam: Soft, Normal Bowel Sounds Additional comments: with 2 KERI serosanguinous drainage,minimal Incision dry and intact Colostomy brownish stool - Exam Additional comments: continent, urinal - Extremities Exam Extremities Exam: Normal Capillary Refill - Neurological Exam Neurological Exam: Alert, Awake, Oriented x3 - Psychiatric Exam Psychiatric exam: Normal Affect, Normal Mood - Skin Skin Exam: Intact, Normal Color, Warm Assessment and Plan - Assessment and Plan (Free Text) Assessment: A 77 year old who came into the ER for severe abdominal pain. work up showed perforated viscus and underwent explor lap and Rob's procedure with colostomy. Transferred to ICU immediate post op intubated. History of coronary artery disease with multiple stents,mantle cell lymphoma, lung cancer, post wedge resection, hypertension Plan: Physical therapy in progress Doing well post surgery Cardiac status stable Healthy heart diet IV antibiotics discontinued as ordered On ASA 81 mg daily,Plavix 75 mg daily,Heparin SQ,Lopressor 12,5 mg BID Neutrophos 1 pkt everyday Will repeat electrolytes tomorrow if K and Phos level WNL will discontinue Neutrophos Denies chest pain BP and heart rate stable Continue current treatment Continue current medications Will follow up Plan and treatment discussed with Dr. Hill
[2017-07-06 06:59] LABS: BASO # 0.02 K/mm3 (0.0-2.0); BASO % 0.3 % (0.0-3.0); EOS # 0.3 (0.0-0.7); EOS % 5.3 % (1.5-5.0); GRAN # 3.97 (1.4-6.5); HEMOGLOBIN 10.6 g/dL (14.0-18.0); LYMPH # 1.2 (1.2-3.4); LYMPH % 20.1 % (22.0-35.0); MEAN CELL VOLUME 85.5 fl (80.0-105.0); MEAN CORPUSCULAR HEMOGLOBIN 28.5 pg (25.0-35.0); MEAN CORPUSCULAR HGB CONC 33.3 g/dl (31.0-37.0); MEAN PLATELET VOLUME 9.4 fl (7.0-11.0); MONO # 0.5 (0.1-0.6); MONO % 8.3 % (1.0-6.0); RBC 3.72 10^6/uL (3.5-6.1); RED CELL DISTRIBUTION WIDTH 13.9 % (11.5-14.5)
[2017-07-06] MEDS: Levalbuterol 0.63 MG/3 ML Inhal Soln UD IH SCH (07:12)
[2017-07-06 07:33] LABS: ALT/SGPT 45 U/L (7-56); AST/SGOT 41 U/L (17-59); BLOOD UREA NITROGEN 13 mg/dL (7-21); CALCIUM 8.4 mg/dL (8.4-10.5); GFR AFRICAN-AMERICAN > 60; GFR NON-AFRICAN AMERICAN > 60
[2017-07-06] MEDS: Bacitracin Ointment 30 GM TUBE TOP SCH ×3 (09:12→17:52)
[2017-07-06] MEDS: Potassium & Sodium Phosphate PO SCH ×3 (09:13→17:53)
[2017-07-06] MEDS: RANOLAZINE 500 MG PO SCH ×2 (09:14→17:53)
--- NOTE | 2017-07-06 10:12 | CP.PCM.PN ---
Subjective - Date & Time of Evaluation Date of Evaluation: 07/06/17 Time of Evaluation: 10:07 - Subjective Subjective: Surgery Progress Note: Patient seen and assessed at bedside in TCU. No acute events overnight. Endorses soft brown ostomy output overnight. Denies fevers, chills, headache, chest pain, SOB, abdominal pain, N/V/D/C or any changes in urine output. Objective - Vital Signs/Intake and Output Vital Signs (last 24 hours): Temp Pulse Resp BP Pulse Ox 97.6 F 78 18 112/62 97 07/05/17 17:00 07/06/17 08:05 07/05/17 17:00 07/06/17 08:05 07/05/17 17:00 - Medications Medications: Current Medications Acetaminophen (Tylenol 325mg Tab) 650 mg PO Q4H PRN; Protocol PRN Reason: Pain, Mild (1-3) Last Admin: 07/05/17 08:20 Dose: 650 mg Alprazolam (Xanax) 0.25 mg PO BID PRN; Protocol PRN Reason: Anxiety Stop: 07/11/17 14:27 Aspirin (Ecotrin) 81 mg PO 0800 ALEX PRN Reason: Protocol Last Admin: 07/06/17 08:05 Dose: 81 mg Bacitracin (Bacitracin) 0 gm TOP TID ALEX PRN Reason: Protocol Last Admin: 07/06/17 09:12 Dose: 1 applic Clopidogrel Bisulfate (Plavix) 75 mg PO DAILY ALEX PRN Reason: Protocol Last Admin: 07/06/17 09:13 Dose: 75 mg Furosemide (Lasix) 20 mg PO 0630 ALEX PRN Reason: Protocol Last Admin: 07/06/17 05:42 Dose: 20 mg Heparin Sodium (Porcine) (Heparin) 5,000 units SC Q8 ALEX PRN Reason: Protocol Last Admin: 07/06/17 05:41 Dose: 5,000 units Home Med (Home Med) 1 unit PO HS ALEX PRN Reason: Protocol Last Admin: 07/05/17 21:35 Dose: 1 unit Insulin Human Regular (Humulin R Low) 0 units SC ACHS ALEX PRN Reason: Protocol Last Admin: 07/06/17 06:31 Dose: Not Given Levalbuterol HCl (Xopenex) 0.63 mg IH 0800,2000 [facility] PRN Reason: Protocol Last Admin: 07/06/17 07:12 Dose: 0.63 mg Metoprolol Tartrate (Lopressor) 12.5 mg PO 0800,1800 [facility] PRN Reason: Protocol Last Admin: 07/06/17 08:05 Dose: 12.5 mg Montelukast Sodium (Singulair) 10 mg PO HS [facility] PRN Reason: Protocol Last Admin: 07/05/17 21:36 Dose: 10 mg Ranolazine Er [ (Ranexa] 500 Mg) 500 mg PO BID [facility] Last Admin: 07/06/17 09:14 Dose: 500 mg Nortriptyline HCl (Pamelor) 10 mg PO DAILY [facility] PRN Reason: Protocol Last Admin: 07/06/17 09:13 Dose: 10 mg Ondansetron HCl (Zofran Inj) 4 mg IVP Q4H PRN; Protocol PRN Reason: Nausea/Vomiting Oxybutynin Chloride (Ditropan Tab) 5 mg PO HS [facility] PRN Reason: Protocol Last Admin: 07/05/17 21:35 Dose: 5 mg Pantoprazole Sodium (Protonix Ec Tab) 40 mg PO 0630 [facility] PRN Reason: Protocol Potassium Phos/Sodium Phos (Neutra-Phos) 1 pkt PO TID [facility] PRN Reason: Protocol Last Admin: 07/06/17 09:13 Dose: 1 pkt - Labs Labs: 07/06/17 06:53 07/06/17 06:53 - Constitutional Appears: Non-toxic, No Acute Distress - Head Exam Head Exam: ATRAUMATIC, NORMOCEPHALIC - Eye Exam Eye Exam: EOMI, Normal appearance - Respiratory Exam Respiratory Exam: NORMAL BREATHING PATTERN. absent: Accessory Muscle Use, Respiratory Distress - GI/Abdominal Exam GI & Abdominal Exam: Soft, Normal Bowel Sounds. absent: Distended, Firm, Guarding, Rigid, Tenderness, Rebound Additional comments: Midline incision intact with thierno and without surrounding erythema or drainage; Two drains put out a total of 60cc of serosanguineous Stoma in place; bowel sweat present - Neurological Exam Neurological Exam: Alert, Awake, Oriented x3 - Psychiatric Exam Psychiatric exam: Normal Affect, Normal Mood - Skin Skin Exam: Dry, Warm Assessment and Plan - Assessment and Plan (Free Text) Assessment: 77 year old male with perforated viscous secondary to diverticulitis. S/P Rob's POD 6. Plan: -Continue stoma care with output monitoring and ostomy training -Daily betadine application to abdominal incision; Thierno to be removed on POD 10 -Heart Healthy Diet as tolerated -Continue antibiotics as per ID -Continue pain management -Continue AE hose's -Continue to encourage OOB to chair and IS use -Continue PT Further recommendations as per Dr. Cm Méndez PGY1
[2017-07-06] MEDS ORDERED: Morphine 15 mg Immediate Release Tab PO PRN (10:33)
--- NOTE | 2017-07-06 11:06 | PN ---
DATE: 07/06/2017 SUBJECTIVE: The patient is in bed, in no acute distress, nontoxic. PHYSICAL EXAMINATION VITAL SIGNS: Temperature is 97, blood pressure is 112/60, respiratory rate of 18, heart rate of 78. HEENT: Unremarkable. NECK: Supple. LUNGS: Have decreased breath sounds. HEART: Normal S1 and S2. ABDOMEN: Soft. LABORATORY DATA: Reveals a white count of 6000, hemoglobin of 10, platelets of 159. Chemistries reveals a BUN of 13, creatinine is 0.8 and microbiology is noted. ASSESSMENT AND PLAN: This is a 77-year-old male with visceral perforation requiring laparotomy and colostomy, chronic obstructive lung disease, history of mantle cell lymphoma, history of lung cancer requiring wedge resection and coronary artery disease, benign prostatic hypertrophy, dyslipidemia, bilateral pneumonia, bronchitis, asthma, hypertension, now on postprocedure day #7 after perforated sigmoid colon associated with diverticulitis status post exploratory laparotomy and sigmoidectomy and colostomy, has completed 6 days of meropenem and currently in the Transitional Care. The patient is off of antibiotics; however, the risk for developing nosocomial infections. Marvin Callahan MD
--- NOTE | 2017-07-06 11:12 | CON ---
DATE: 07/05/2017 PULMONARY CONSULTATION REFERRING PHYSICIAN: Ted Santoyo MD. REASON FOR CONSULTATION: Chronic lung disease, history of lung cancer, may have sleep apnea syndrome. HISTORY OF PRESENT ILLNESS: This is a 77-year-old gentleman well known to me from acute side of the hospital and previous admission, has a known history of chronic lung disease, suspected sleep apnea syndrome, history of lung cancer requiring lobectomy in the past, mantle cell lymphoma, cardiomyopathy, coronary artery disease with multiple coronary stents, also diabetic, hyperlipidemia, recurrent sepsis in the past, been on chemotherapy for mantle cell lymphoma who was admitted and found to have visceral perforation; it was diverticulum perforation; end up with laparotomy and colostomy, presently admitted to TICU, doing well, been on CPAP while sleeping, has mild pressure ulcer on the nasal cavity, breathing is better. Cough is better. No nausea, no vomiting. Mild abdominal pain. Colostomy working well. No leg pain or leg swelling. PAST MEDICAL HISTORY: As per history of present illness. SOCIAL HISTORY: Retired, nonsmoker, nondrinker. FAMILY HISTORY: No significant cardiopulmonary disease reported. ALLERGIES: HE IS ALLERGIC TO ZITHROMAX, PENICILLIN, KEFLEX, GABAPENTIN, PREGABALIN, SULFA, AND IMBRUVICA. MEDICATIONS: He is on bacitracin ointment to the affected area three times a day, Ditropan 5 mg at bedtime, aspirin 81 mg daily, heparin 5000 units subcu every 8 hours, Lasix 20 mg daily, metoprolol tartrate 12.5 mg twice a day, K-Phos one pack three times a day, nortriptyline 10 mg daily, Plavix 75 mg daily, Protonix mg daily, Ranexa 500 mg twice a day, Singulair 10 mg at bedtime, Tylenol p.r.n., Xanax 0.25 mg twice a day p.r.n., Xopenex 0.63 mg twice a day and Zofran p.r.n. basis. REVIEW OF SYSTEMS: No headache, no rhinitis. No cough. No chest pain. No nausea. No vomiting. Mild abdominal pain. No leg pain. No leg swelling. PHYSICAL EXAMINATION: GENERAL: In no acute distress. VITAL SIGNS: Temp is 98, heart rate is 78, respiratory rate is 18, blood pressure 113/67, pulse ox 96% on room air. HEENT: Moist mucous membrane. Crowded airway. Nasal bridge has mild ulcer. LUNGS: Have fair airflow with rhonchi. HEART: S1 and S2. ABDOMEN: Soft. Midline surgical scar, healing well. Colostomy looks okay. EXTREMITIES: There is no edema. NEUROLOGIC: Awake, alert. Follows simple command. LABORATORY DATA: Shows hemoglobin 10.4, hematocrit 31.4, WBC 5.2, platelet count is 148. Sodium 137, potassium 4.1, chloride 102, bicarbonate 30, BUN 10, creatinine 0.8, glucose 143, calcium is 8.3. AST 33, ALT 38, alk phos is 97. Albumin is 2.9. Microbiology, urine culture and nose culture, no growth. IMPRESSION AND PLAN: Status post visceral perforation requiring laparotomy, has a colostomy. Other issues are chronic obstructive lung disease, history of lung cancer requiring wedge resection in the remote past, mantle cell lymphoma, been on chemotherapy, diabetes, may have sleep apnea syndrome, aspiration pneumonia. Pulmonary point of view, doing okay. Continue continuous positive airway pressure while sleeping. Spoke to nursing staff and requested whole face mask while sleeping. Gastric prophylaxis, deep venous thrombosis prophylaxis. Continue antibiotics. Out of bed to chair, physical therapy. Thank you and we will follow with you. Thanh Duffy MD
[2017-07-06] MEDS: HYDROmorphone 0.5 mg/0.5 ml ISec IVP PRN (14:15)
--- NOTE | 2017-07-06 14:30 | CP.PCM.PN ---
Subjective - Date & Time of Evaluation Date of Evaluation: 07/06/17 Time of Evaluation: 09:30 - Subjective Subjective: PGY-[address] Myers's service Patient seen and examined at bedside in TCU. No acute events overnight. Patient states that his pain 8/10 this morning. He eating breakfast and tolerating solid food diet, he is having output from his ostomy. Patient states that he was taught how to take care of is ostomy. He is encouraged to sit while eating to avoid aspiration and OOB to chair. He denies pain anywhere else except his abdomen. He denies cough, fever, chills, nausea, vomiting, leg swelling. He states that he is using his incentive spirometer. Objective - Vital Signs/Intake and Output Vital Signs (last 24 hours): Temp Pulse Resp BP Pulse Ox 97.6 F 78 18 112/62 97 07/05/17 17:00 07/06/17 08:05 07/05/17 17:00 07/06/17 08:05 07/05/17 17:00 - Medications Medications: Current Medications Acetaminophen (Tylenol 325mg Tab) 650 mg PO Q4H PRN; Protocol PRN Reason: Pain, Mild (1-3) Last Admin: 07/05/17 08:20 Dose: 650 mg Alprazolam (Xanax) 0.25 mg PO BID PRN; Protocol PRN Reason: Anxiety Stop: 07/11/17 14:27 Aspirin (Ecotrin) 81 mg PO 0800 [facility] PRN Reason: Protocol Last Admin: 07/06/17 08:05 Dose: 81 mg Bacitracin (Bacitracin) 0 gm TOP TID [facility] PRN Reason: Protocol Last Admin: 07/06/17 13:16 Dose: 1 applic Clopidogrel Bisulfate (Plavix) 75 mg PO DAILY [facility] PRN Reason: Protocol Last Admin: 07/06/17 09:13 Dose: 75 mg Furosemide (Lasix) 20 mg PO 0630 [facility] PRN Reason: Protocol Last Admin: 07/06/17 05:42 Dose: 20 mg Heparin Sodium (Porcine) (Heparin) 5,000 units SC Q8 [facility] PRN Reason: Protocol Last Admin: 07/06/17 13:19 Dose: 5,000 units Home Med (Home Med) 1 unit PO HS [facility] PRN Reason: Protocol Last Admin: 07/05/17 21:35 Dose: 1 unit Hydromorphone HCl (Dilaudid) 0.5 mg IVP Q6H PRN PRN Reason: Pain, severe (8-10) Last Admin: 07/06/17 14:15 Dose: 0.5 mg Insulin Human Regular (Humulin R Low) 0 units SC ACHS [facility] PRN Reason: Protocol Last Admin: 07/06/17 11:29 Dose: 2 units Levalbuterol HCl (Xopenex) 0.63 mg IH 0800,2000 [facility] PRN Reason: Protocol Last Admin: 07/06/17 07:12 Dose: 0.63 mg Metoprolol Tartrate (Lopressor) 12.5 mg PO 0800,1800 [facility] PRN Reason: Protocol Last Admin: 07/06/17 08:05 Dose: 12.5 mg Montelukast Sodium (Singulair) 10 mg PO HS [facility] PRN Reason: Protocol Last Admin: 07/05/17 21:36 Dose: 10 mg Morphine Sulfate (Morphine Immediate Release Tab) 15 mg PO Q4 PRN PRN Reason: Pain, moderate (4-7) Ranolazine Er [ (Ranexa] 500 Mg) 500 mg PO BID [facility] Last Admin: 07/06/17 09:14 Dose: 500 mg Nortriptyline HCl (Pamelor) 10 mg PO DAILY [facility] PRN Reason: Protocol Last Admin: 07/06/17 09:13 Dose: 10 mg Ondansetron HCl (Zofran Inj) 4 mg IVP Q4H PRN; Protocol PRN Reason: Nausea/Vomiting Oxybutynin Chloride (Ditropan Tab) 5 mg PO HS [facility] PRN Reason: Protocol Last Admin: 07/05/17 21:35 Dose: 5 mg Pantoprazole Sodium (Protonix Ec Tab) 40 mg PO 0630 [facility] PRN Reason: Protocol Potassium Phos/Sodium Phos (Neutra-Phos) 1 pkt PO TID [facility] PRN Reason: Protocol Last Admin: 07/06/17 13:17 Dose: 1 pkt - Labs Labs: 07/06/17 06:53 07/06/17 06:53 - Constitutional Appears: Well, No Acute Distress - Head Exam Head Exam: ATRAUMATIC, NORMOCEPHALIC - Eye Exam Eye Exam: EOMI, Normal appearance - ENT Exam ENT Exam: Mucous Membranes Moist - Respiratory Exam Respiratory Exam: Clear to Ausculation Bilateral, NORMAL BREATHING PATTERN. absent: Rhonchi, Wheezes, Respiratory Distress - Cardiovascular Exam Cardiovascular Exam: REGULAR RHYTHM, +S1, +S2. absent: Bradycardia, Tachycardia , Murmur - GI/Abdominal Exam GI & Abdominal Exam: Soft, Tenderness, Normal Bowel Sounds. absent: Distended, Firm Additional comments: incision clean, dry and intact, ostomy in place with stool - Extremities Exam Extremities Exam: Normal Inspection. 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 Patient was transferred to the TCU. Plan: Patient is s/p Milli continue Incentive spirometry continue reg diet, patient tolerating continue to monitor KERI drainage output pain medication dilaudid 0.5 q6 for severe and morphine of moderate pain surgery following patient is afebrile without leukocytosis ID consulted, patient completed course of abx cardiology consulted will continue to monitor renal status electrolytes replete as needed continue ISS-Medium, continue with accuchecks SCDs and Heparin for DVT prophylaxis OOB to chair Physical therapy aspiration precautions Case reviewed and discussed with Dr. Myers
[2017-07-06] MEDS: SILODOSIN 8 MG PO SCH (21:17)
[2017-07-07] MEDS: HYDROmorphone 0.5 mg/0.5 ml ISec IVP PRN (02:48)
[2017-07-07] MEDS: Pantoprazole 40 mg EC Tab PO SCH (05:39)
[2017-07-07] MEDS: Insulin Reg-LOW-Coverage SC SCH ×4 (06:31→21:31)
[2017-07-07 06:57] LABS: BASO # 0.03 K/mm3 (0.0-2.0); BASO % 0.5 % (0.0-3.0); EOS # 0.3 (0.0-0.7); GRAN # 3.69 (1.4-6.5); GRAN % 61.5 % (50.0-68.0); HEMOGLOBIN 10.6 g/dL (14.0-18.0); LYMPH # 1.5 (1.2-3.4); LYMPH % 25.2 % (22.0-35.0); MEAN CELL VOLUME 86.7 fl (80.0-105.0); MEAN CORPUSCULAR HEMOGLOBIN 28.7 pg (25.0-35.0); MEAN CORPUSCULAR HGB CONC 33.1 g/dl (31.0-37.0); MEAN PLATELET VOLUME 9.8 fl (7.0-11.0); MONO # 0.5 (0.1-0.6); MONO % 7.8 % (1.0-6.0); RBC 3.69 10^6/uL (3.5-6.1); RED CELL DISTRIBUTION WIDTH 14.1 % (11.5-14.5)
--- NOTE | 2017-07-07 07:06 | CP.PCM.PN ---
Subjective - Date & Time of Evaluation Date of Evaluation: 07/07/17 Time of Evaluation: 06:30 - Subjective Subjective: Sleeping but easily awaken, comfortable, no distress, denies chest pain, denies shortness of breath Reason for consult: Continuity of care in TCU, cardiac follow up, status post explor lap for perforated viscus, Rob's procedure with colostomy. History of coronary artery disease with multiple stents,hypertension. Seen and examined by me and Dr. Holbrook Objective - Vital Signs/Intake and Output Vital Signs (last 24 hours): Temp Pulse Resp BP Pulse Ox 98 F 72 18 127/57 L 98 07/06/17 17:17 07/06/17 23:00 07/06/17 17:17 07/07/17 05:39 07/06/17 17:17 - Medications Medications: Current Medications Acetaminophen (Tylenol 325mg Tab) 650 mg PO Q4H PRN; Protocol PRN Reason: Pain, Mild (1-3) Last Admin: 07/05/17 08:20 Dose: 650 mg Alprazolam (Xanax) 0.25 mg PO BID PRN; Protocol PRN Reason: Anxiety Stop: 07/11/17 14:27 Aspirin (Ecotrin) 81 mg PO 0800 [facility] PRN Reason: Protocol Last Admin: 07/06/17 08:05 Dose: 81 mg Bacitracin (Bacitracin) 0 gm TOP TID [facility] PRN Reason: Protocol Last Admin: 07/06/17 17:52 Dose: 1 applic Clopidogrel Bisulfate (Plavix) 75 mg PO DAILY [facility] PRN Reason: Protocol Last Admin: 07/06/17 09:13 Dose: 75 mg Furosemide (Lasix) 20 mg PO 0630 [facility] PRN Reason: Protocol Last Admin: 07/07/17 05:39 Dose: Not Given Heparin Sodium (Porcine) (Heparin) 5,000 units SC Q8 [facility] PRN Reason: Protocol Last Admin: 07/07/17 05:37 Dose: 5,000 units Home Med (Home Med) 1 unit PO HS [facility] PRN Reason: Protocol Last Admin: 07/06/17 21:17 Dose: 1 unit Hydromorphone HCl (Dilaudid) 0.5 mg IVP Q6H PRN PRN Reason: Pain, severe (8-10) Last Admin: 07/07/17 02:48 Dose: 0.5 mg Insulin Human Regular (Humulin R Low) 0 units SC ACHS [facility] PRN Reason: Protocol Last Admin: 07/07/17 06:31 Dose: Not Given Levalbuterol HCl (Xopenex) 0.63 mg IH 0800,2000 [facility] PRN Reason: Protocol Last Admin: 07/06/17 07:12 Dose: 0.63 mg Metoprolol Tartrate (Lopressor) 12.5 mg PO 0800,1800 [facility] PRN Reason: Protocol Last Admin: 07/06/17 17:52 Dose: 12.5 mg Montelukast Sodium (Singulair) 10 mg PO HS [facility] PRN Reason: Protocol Last Admin: 07/06/17 21:17 Dose: 10 mg Morphine Sulfate (Morphine Immediate Release Tab) 15 mg PO Q4 PRN PRN Reason: Pain, moderate (4-7) Ranolazine Er [ (Ranexa] 500 Mg) 500 mg PO BID [facility] Last Admin: 07/06/17 17:53 Dose: 500 mg Nortriptyline HCl (Pamelor) 10 mg PO DAILY [facility] PRN Reason: Protocol Last Admin: 07/06/17 09:13 Dose: 10 mg Ondansetron HCl (Zofran Inj) 4 mg IVP Q4H PRN; Protocol PRN Reason: Nausea/Vomiting Oxybutynin Chloride (Ditropan Tab) 5 mg PO HS [facility] PRN Reason: Protocol Last Admin: 07/06/17 21:16 Dose: 5 mg Pantoprazole Sodium (Protonix Ec Tab) 40 mg PO 0630 [facility] PRN Reason: Protocol Last Admin: 07/07/17 05:39 Dose: 40 mg Potassium Phos/Sodium Phos (Neutra-Phos) 1 pkt PO TID [facility] PRN Reason: Protocol Last Admin: 07/06/17 17:53 Dose: 1 pkt - Labs Labs: 07/06/17 06:53 07/06/17 06:53 - Constitutional Appears: No Acute Distress - Eye Exam Eye Exam: Normal appearance - ENT Exam ENT Exam: Mucous Membranes Moist - Respiratory Exam Respiratory Exam: Clear to Ausculation Bilateral, NORMAL BREATHING PATTERN - Cardiovascular Exam Cardiovascular Exam: +S1, +S2 - GI/Abdominal Exam GI & Abdominal Exam: Soft, Normal Bowel Sounds Additional comments: abdominal incision dry, colostomy, KERI discontinued but site with serosanguinous drainage dressing intact - Exam Additional comments: continent, urinal - Extremities Exam Extremities Exam: Full ROM, Normal Capillary Refill - Neurological Exam Neurological Exam: Alert, Awake, Oriented x3 - Psychiatric Exam Psychiatric exam: Normal Affect, Normal Mood - Skin Skin Exam: Intact, Normal Color, Warm Assessment and Plan - Assessment and Plan (Free Text) Assessment: A 77 year old who came into the ER for severe abdominal pain. work up showed perforated viscus and underwent explor lap and Rob's procedure with colostomy. Transferred to ICU immediate post op intubated. History of coronary artery disease with multiple stents,mantle cell lymphoma, lung cancer, post wedge resection, hypertension,transferred to TCU for reconditioning. Plan: Teaching on colostomy care in progress Physical therapy in progress OOB to chair Doing well post surgery Cardiac status stable Healthy heart diet On ASA 81 mg daily,Plavix 75 mg daily,Heparin SQ,Lopressor 12,5 mg BID Neutrophos 1 pkt everyday BP and heart rate stable Continue current treatment Continue current medications Will follow up Plan and treatment discussed with Dr. Holbrook
[2017-07-07] MEDS: Levalbuterol 0.63 MG/3 ML Inhal Soln UD IH SCH ×2 (07:23→21:43)
[2017-07-07 07:37] LABS: ALT/SGPT 44 U/L (7-56); AST/SGOT 36 U/L (17-59); BLOOD UREA NITROGEN 17 mg/dL (7-21); CALCIUM 8.4 mg/dL (8.4-10.5); GFR AFRICAN-AMERICAN > 60; GFR NON-AFRICAN AMERICAN > 60
[2017-07-07] MEDS: Potassium & Sodium Phosphate PO SCH ×3 (09:57→17:27)
[2017-07-07] MEDS: RANOLAZINE 500 MG PO SCH ×2 (09:58→17:27)
[2017-07-07] MEDS: Bacitracin Ointment 30 GM TUBE TOP SCH ×3 (10:23→17:26)
--- NOTE | 2017-07-07 15:10 | PN ---
DATE: 07/07/2017 SUBJECTIVE: The patient is seen early this morning in room 318. No fevers and no chills and clinically stable. PHYSICAL EXAMINATION: VITAL SIGNS: Temperature is 98, blood pressure is , respiratory rate of 20 and heart rate of 74. HEENT: Unremarkable. NECK: Supple. LUNGS: Have decreased breath sounds. HEART: Normal S1, S2. ABDOMEN: Soft, nontender. No organomegaly. No rebound. No guarding. No masses. LABORATORY DATA: Reveals a white count of 6000 and hemoglobin of 10, platelets of 174. BUN of 17, creatinine of 0.9. ASSESSMENT AND PLAN: This is a 77-year-old male with visceral perforation, requiring laparotomy and colostomy and the patient with chronic obstructive lung disease, history of mantle cell lymphoma, history of lung cancer, requiring wedge resection; coronary artery disease, benign prostatic hypertrophy, dyslipidemia, bilateral pneumonia, bronchitis, asthma, hypertension, and postprocedure day #8 with perforated sigmoid colon associated with diverticulitis, status post exploratory lap, sigmoidectomy, colectomy and completed antibiotics. Currently now off of antibiotics. We will follow with you. The patient is at risk for developing nosocomial infections. Marvin Callahan MD
--- NOTE | 2017-07-07 20:32 | PN ---
DATE: 07/07/2017 PULMONARY PROGRESS NOTE REFERRING PHYSICIAN: Ted Santoyo MD. SUBJECTIVE: Patient is sitting up in a chair. Night was unremarkable, tolerated CPAP well with the whole-face mask . No headache, no rhinitis. Cough is better. Shortness of breath is improving. No nausea, no vomiting. Mild abdominal discomfort. Colostomy bag working well. No leg pain or leg swelling. OBJECTIVE: GENERAL: In no acute distress. VITAL SIGNS: Temperature is 98, heart rate is 80, respiratory rate is 16, blood pressure 130/78, pulse ox 100% on 2 liters nasal cannula. HEENT: Moist mucous membrane. Small oral cavity. Crowded airway. NECK: Supple. No JVD. LUNGS: Have a fair airflow with rhonchi. HEART: S1, S2. ABDOMEN: Soft. Midline surgical scar looks okay. Colostomy bag draining well. EXTREMITIES: There is no edema. NEUROLOGICAL: Awake, alert, follows simple command. MEDICATIONS: He is on bacitracin ointment three times a day, Dilaudid 0.5 mg every 6 hour p.r.n., oxybutynin is 5 mg at bedtime, Ecotrin 81 mg daily, heparin 5000 units subcu every 8 hour, Lasix 20 mg daily, metoprolol tartrate 12.5 mg twice a day, morphine sulfate immediate release 15 mg every 4 hour p.r.n., Neutra-Phos one pack 3 times a day, Pamelor 10 mg daily, Plavix 75 mg daily, Protonix 40 mg daily, Ranexa 500 mg twice a day, Singulair 10 mg daily, Tylenol p.r.n., Xanax 0.25 mg twice a day, Xopenex inhaled twice a day, Zofran 4 mg every 4 hour p.r.n. LABORATORY DATA: Shows hemoglobin 10.6, hematocrit 32, WBC 6, platelet is 172. Sodium 138, potassium 4.3, chloride 101, bicarbonate 30, BUN 17, creatinine 0.9, glucose 139, calcium 8.4. AST 36, ALT 44, alk phos is 109. Albumin 3. IMPRESSION AND PLAN: Status post visceral perforation requiring laparotomy and colostomy; chronic obstructive lung disease, history of lung cancer requiring wedge resection in the remote past, history of mantle cell lymphoma, been on chemotherapy; diabetes; may have sleep apnea syndrome; aspiration pneumonia. Pulmonary point of view, doing well. Continue CPAP while sleeping. Keep head at 45 degrees. Bronchodilator. Gastric prophylaxis, deep venous thrombosis prophylaxis. Continue therapy. Antibiotics as per Infectious Disease. Thank you and we will follow with you. Thanh Duffy MD
[2017-07-07] MEDS: SILODOSIN 8 MG PO SCH (21:28)
--- NOTE | 2017-07-08 00:49 | PN ---
DATE: 07/07/2017 LOCATION: The patient is in room 318, bed 1. PROBLEM: This is a 77-year-old male, who was admitted to the TCU for deconditioning, rehab and also for his open procedure colostomy, which was placed after the patient came in to the hospital with an acute abdomen secondary to perforated diverticular rupture. Patient currently is slowly improving after the Milli's procedure with colostomy. In the background history, patient has history of coronary artery disease with stent placement, history of multiple lung nodules seen on the CT of the chest; history of stage IV mantle cell lymphoma, currently quiescent; possible pulmonary hypertension, possible sleep apnea who currently was transferred to the TCU for the aforementioned reasons. SUBJECTIVE: The patient is feeling better. He walked today by himself within the room. He is getting adjusted to the colostomy. He still complains of some pain, though the KERI drain has been removed. Patient denies any difficulty in swallowing. Denies any history of shortness of breath. Denies any history of chest pain, fevers or chills. PHYSICAL EXAMINATION: GENERAL: Patient is examined in bed, sitting out of bed in the chair. VITAL SIGNS: T-max is 98.4, pulse is 72, respirations 18, blood pressure is 127/57, pulse ox is 98% on room air. HEENT: Head is normocephalic, atraumatic. Conjunctivae pale. Sclerae are anicteric. Pupils are equally reactive to light and accommodation. Examination of the oropharynx reveals no oropharyngeal lesions. Tongue is moist. No ulcerations are noted. NECK: Supple. There is no adenopathy. LUNGS: Clear to percussion and auscultation. CARDIOVASCULAR: Examination of the cardiovascular system reveals S1 and S2 are normal. No gallop or murmur is noted. ABDOMEN: Examination of the abdomen reveals the abdominal incision to be dry. Patient has a colostomy, Milli's procedure, KERI drain has been removed, but the site has a serosanguineous dressing intact. : Patient is continent. EXTREMITIES: Reveals no cyanosis, clubbing or edema. NEUROLOGIC: Higher functions are normal. No focal deficits are noted on neurologic exam. LABORATORY DATA: Reviewed today. Patient's white count is 6, hemoglobin 10.6, hematocrit 31.8, platelet count of 159,00. Sodium is 137, K is 4, chloride is 101, CO2 is 30, BUN is 13, creatinine 0.8, blood sugar is 137. Labs were reviewed. MEDICATIONS: Patient's medications were reviewed and are unchanged at this time. ASSESSMENT, NOTE AND PLAN: The patient was continued his with therapy while in the Transitional Care Unit, teaching for colostomy is in progress. Cardiac status is stable. Patient is on a heart-healthy diet. Patient will continue his current medications. Patient is on also teaching with videos on the TV screen more monitoring and managing his colostomies. We will continue his current medications. I spoke to his in great detail and to the patient in great detail after the discharge plan how he is going to manage his colostomy and how long the stoma and the colostomy would have to be managed as an outpatient. The plan is to reverse the colostomy in about 3 months and the patient may need a colonoscopy prior to the reversal of the colostomy. Routine post-exam instructions have been given to the patient. Labs for a.m. have been requested as well. Time spent with the patient greater than 45 minutes. Please make a note, this is a medically necessary and appropriate visits for this patient with multiple comorbid medical issues. Alie Myers MD
[2017-07-08] MEDS: Pantoprazole 40 mg EC Tab PO SCH (06:07)
[2017-07-08] MEDS: Insulin Reg-LOW-Coverage SC SCH ×4 (06:35→21:38)
[2017-07-08] MEDS: Levalbuterol 0.63 MG/3 ML Inhal Soln UD IH SCH ×2 (07:16→19:13)
[2017-07-08 07:21] LABS: BASO # 0.03 K/mm3 (0.0-2.0); BASO % 0.5 % (0.0-3.0); EOS # 0.3 (0.0-0.7); EOS % 4.8 % (1.5-5.0); GRAN # 3.82 (1.4-6.5); GRAN % 62.7 % (50.0-68.0); HEMOGLOBIN 10.5 g/dL (14.0-18.0); LYMPH # 1.5 (1.2-3.4); LYMPH % 24.3 % (22.0-35.0); MEAN CELL VOLUME 86.7 fl (80.0-105.0); MEAN CORPUSCULAR HEMOGLOBIN 28.5 pg (25.0-35.0); MEAN CORPUSCULAR HGB CONC 32.9 g/dl (31.0-37.0); MEAN PLATELET VOLUME 9.6 fl (7.0-11.0); MONO # 0.5 (0.1-0.6); MONO % 7.7 % (1.0-6.0); RBC 3.68 10^6/uL (3.5-6.1); RED CELL DISTRIBUTION WIDTH 14.1 % (11.5-14.5); WHITE BLOOD COUNT 6.1 10^3/ul (4.5-11.0)
[2017-07-08 08:00] LABS: ALB/GLOB RATIO 1.1 (1.1-1.8); ALBUMIN 3.2 g/dL (3.0-4.8); ALT/SGPT 51 U/L (7-56); AST/SGOT 50 U/L (17-59); BLOOD UREA NITROGEN 17 mg/dL (7-21); CALCIUM 8.4 mg/dL (8.4-10.5); GFR AFRICAN-AMERICAN > 60; GFR NON-AFRICAN AMERICAN > 60
--- NOTE | 2017-07-08 08:26 | CP.PCM.PN ---
Subjective - Date & Time of Evaluation Date of Evaluation: 07/08/17 Time of Evaluation: 06:25 - Subjective Subjective: Awake,out of bed to chair, comfortable, no distress, denies chest pain, denies shortness of breath Reason for consult: Continuity of care in TCU, cardiac follow up, status post explor lap for perforated viscus, Rob's procedure with colostomy. History of coronary artery disease with multiple stents,hypertension. Seen and examined by me and Dr. Holbrook Objective - Vital Signs/Intake and Output Vital Signs (last 24 hours): Temp Pulse Resp BP Pulse Ox 98.7 F 80 16 119/70 100 07/07/17 16:00 07/08/17 00:03 07/07/17 16:00 07/08/17 06:12 07/07/17 16:00 - Medications Medications: Current Medications Acetaminophen (Tylenol 325mg Tab) 650 mg PO Q4H PRN; Protocol PRN Reason: Pain, Mild (1-3) Last Admin: 07/05/17 08:20 Dose: 650 mg Alprazolam (Xanax) 0.25 mg PO BID PRN; Protocol PRN Reason: Anxiety Stop: 07/11/17 14:27 Aspirin (Ecotrin) 81 mg PO 0800 [facility] PRN Reason: Protocol Last Admin: 07/07/17 09:56 Dose: 81 mg Bacitracin (Bacitracin) 0 gm TOP TID [facility] PRN Reason: Protocol Last Admin: 07/07/17 17:26 Dose: 1 applic Clopidogrel Bisulfate (Plavix) 75 mg PO DAILY [facility] PRN Reason: Protocol Last Admin: 07/07/17 09:57 Dose: 75 mg Furosemide (Lasix) 20 mg PO 0630 [facility] PRN Reason: Protocol Last Admin: 07/08/17 06:12 Dose: 20 mg Heparin Sodium (Porcine) (Heparin) 5,000 units SC Q8 [facility] PRN Reason: Protocol Last Admin: 07/08/17 06:06 Dose: 5,000 units Home Med (Home Med) 1 unit PO HS [facility] PRN Reason: Protocol Last Admin: 07/07/17 21:28 Dose: 1 unit Hydromorphone HCl (Dilaudid) 0.5 mg IVP Q6H PRN PRN Reason: Pain, severe (8-10) Last Admin: 07/07/17 02:48 Dose: 0.5 mg Insulin Human Regular (Humulin R Low) 0 units SC ACHS [facility] PRN Reason: Protocol Last Admin: 07/08/17 06:35 Dose: Not Given Levalbuterol HCl (Xopenex) 0.63 mg IH 0800,2000 [facility] PRN Reason: Protocol Last Admin: 07/08/17 07:16 Dose: 0.63 mg Metoprolol Tartrate (Lopressor) 12.5 mg PO 0800,1800 [facility] PRN Reason: Protocol Last Admin: 07/07/17 17:26 Dose: 12.5 mg Montelukast Sodium (Singulair) 10 mg PO HS [facility] PRN Reason: Protocol Last Admin: 07/07/17 21:29 Dose: 10 mg Morphine Sulfate (Morphine Immediate Release Tab) 15 mg PO Q4 PRN PRN Reason: Pain, moderate (4-7) Last Admin: 07/08/17 00:22 Dose: 15 mg Ranolazine Er [ (Ranexa] 500 Mg) 500 mg PO BID [facility] Last Admin: 07/07/17 17:27 Dose: 500 mg Nortriptyline HCl (Pamelor) 10 mg PO DAILY [facility] PRN Reason: Protocol Last Admin: 07/07/17 09:57 Dose: 10 mg Ondansetron HCl (Zofran Inj) 4 mg IVP Q4H PRN; Protocol PRN Reason: Nausea/Vomiting Oxybutynin Chloride (Ditropan Tab) 5 mg PO HS [facility] PRN Reason: Protocol Last Admin: 07/07/17 21:26 Dose: 5 mg Pantoprazole Sodium (Protonix Ec Tab) 40 mg PO 0630 [facility] PRN Reason: Protocol Last Admin: 07/08/17 06:07 Dose: 40 mg Potassium Phos/Sodium Phos (Neutra-Phos) 1 pkt PO TID [facility] PRN Reason: Protocol Last Admin: 07/07/17 17:27 Dose: 1 pkt - Labs Labs: 07/08/17 06:45 07/08/17 06:45 - Constitutional Appears: No Acute Distress - Head Exam Head Exam: NORMOCEPHALIC - Eye Exam Pupil Exam: NORMAL ACCOMODATION - ENT Exam ENT Exam: Mucous Membranes Moist - Respiratory Exam Respiratory Exam: Clear to Ausculation Bilateral, NORMAL BREATHING PATTERN - Cardiovascular Exam Cardiovascular Exam: +S1, +S2 Additional comments: right subclavian villa cath/accessed with good blood return - GI/Abdominal Exam GI & Abdominal Exam: Soft, Normal Bowel Sounds Additional comments: abdominal incision dry and intact, KERI site with dressing less drainage colostomy intact - Exam Additional comments: continent using urinal - Extremities Exam Extremities Exam: Normal Capillary Refill - Neurological Exam Neurological Exam: Alert, Awake, Oriented x3 - Psychiatric Exam Psychiatric exam: Normal Affect, Normal Mood - Skin Skin Exam: Intact, Normal Color, Warm Assessment and Plan - Assessment and Plan (Free Text) Assessment: A 77 year old who came into the ER for severe abdominal pain. work up showed perforated viscus and underwent explor lap and Rob's procedure with colostomy. Transferred to ICU immediate post op intubated. History of coronary artery disease with multiple stents,mantle cell lymphoma, lung cancer, post wedge resection, hypertension,transferred to TCU for reconditioning. Plan: OOB to chair Doing well post surgery Teaching on colostomy care in progress Physical therapy in progress Cardiac status stable Healthy heart diet On ASA 81 mg daily,Plavix 75 mg daily,Heparin SQ,Lopressor 12,5 mg BID Phosphorus level normal- will discontinue supplement BP and heart rate stable Continue current treatment Continue current medications Discharge planning Will follow up Plan and treatment discussed with Dr. Holbrook
[2017-07-08] MEDS: Bacitracin Ointment 30 GM TUBE TOP SCH ×3 (09:07→18:10)
[2017-07-08] MEDS: RANOLAZINE 500 MG PO SCH ×2 (09:09→18:13)
--- NOTE | 2017-07-08 09:32 | PN ---
DATE: 07/08/2017 SUBJECTIVE: The patient is in bed, in no acute distress, nontoxic. PHYSICAL EXAMINATION: VITAL SIGNS: Temperature is 98, blood pressure is 119/70, respiratory rate of 18. HEENT: Examination of HEENT is unremarkable. NECK: Supple. LUNGS: Have decreased breath sounds. HEART: Normal S1 and S2. ABDOMEN: Soft and nontender. LABORATORY DATA: Laboratory examination reveals a white count of 6.1, hemoglobin of 10, platelets of 199. Chemistries reveals a BUN of 17, creatinine of 0.9. ASSESSMENT AND PLAN: A 77-year-old male with visceral perforation requiring laparotomy and colostomy and the patient with chronic obstructive lung disease, history of mantle cell lymphoma, history of lung cancer requiring wedge resection, coronary artery disease, benign prostatic hypertrophy, dyslipidemia, bilateral pneumonia, bronchitis, asthma, hypertension, postprocedure day #9 for a perforated sigmoid colon associated with diverticulitis, status post exploratory lap and sigmoidectomy, colectomy. Currently, the patient was seen this morning, doing well and off of antibiotics, afebrile, tolerating a diet. The patient is at risk for developing nosocomial infections. We will follow with you. Marvin Callahan MD
[2017-07-08] MEDS ORDERED: Benzocaine/Butamben/Tetracai 14-2-2% TOP Spray TOP ONE (14:33)
--- NOTE | 2017-07-08 16:53 | PN ---
DATE: 07/08/2017 LOCATION: The patient is in room 318, bed 1. This is an oncology progress note. PROBLEMS: This is a 77-year-old male, who was admitted to the acute site with acute abdomen, perforated ruptured diverticulum, had a Milli's procedure done. This is in the background history of having severe and significant coronary artery disease, stage IV mantle cell lymphoma, COPD and abnormal changes in the CAT scan of the chest during the prior admission. The patient's condition gradually improved. He is now transferred to TCU for deconditioning and also start teaching of the colostomy so he can manage with his colostomy. The patient had a Milli's procedure done with the colostomy in place in the left lower quadrant. The patient has history of multiple stents for his coronary artery disease and has been followed by both Dr. Hill and Dr. Perez at [facility]. SUBJECTIVE: The patient is awake, out of bed in the chair, comfortable, in no acute distress. Denies any chest pain. Denies any shortness of breath. PHYSICAL EXAMINATION: GENERAL: Physical examination reveals the patient to be awake, alert and oriented, no acute distress. VITAL SIGNS: T-max is 98.4, pulse is 80, respirations 16, blood pressure is 119/70, pulse ox is 100% on room air. Vital signs are stable as started in the chart. HEENT: Head is normocephalic, atraumatic. Conjunctivae pale. Sclerae are anicteric. Pupils are equally reactive to light and accommodation. Examination of the oropharynx reveals no oropharyngeal lesions. LUNGS: Relatively clear to percussion and auscultation. CARDIOVASCULAR: Examination of the cardiovascular system reveals PMI to be in the fifth intercostal space inside the midclavicular line. S1 and S2 are normal. No gallop or murmur is heard. ABDOMEN: Soft. The patient has midline thierno in place. There is a dressing at the site where the KERI drain was where he had some oozing in the past. Colostomy in the left lower quadrant. EXTREMITIES: There was no cyanosis, clubbing or edema. NEUROLOGIC: Higher functions are normal. No focal deficits are noted. SKIN: Skin turgor is normal. No skin lesions are noted. ASSESSMENT, NOTES AND PLAN: A 77-year-old male who had come to the emergency room with abdominal pain, found to have ruptured diverticulum in the colon, underwent emergency colostomy after repair of the perforated viscus and had a Milli's procedure with colostomy. The patient was transferred to the Transitional Care Unit for deconditioning and training and teaching for the colostomy. The patient has a history of coronary artery disease with multiple stents; history of stage IV mantle cell lymphoma, currently quiescent; history of lung cancer, status post wedge resection; history of hypertension; hypertriglyceridemia and diabetes mellitus. Plan: The patient is sitting out of bed to the chair, doing well postoperatively. Teaching for colostomy care is on process, in fact the was there and with the showing the , she was able to change both the flange and the colostomy back today. There was considerable amount of old blood at the stoma site, which was all cleaned. The patient will continue changing his colostomy bag by himself hopefully over the next few days. I will continue his heart-healthy diet. I will continue his physical therapy. Continue his anticardiac medicines and follow his labs. Routine post exam instructions have been given to the patient. Time spent with the patient is greater than 45 minutes. Alie Myers MD
--- NOTE | 2017-07-08 18:33 | PN ---
DATE: 07/08/2017 PULMONARY PROGRESS NOTE REFERRING PHYSICIAN: Ted Santoyo MD. SUBJECTIVE: The patient is lying in the bed, head at 45 degrees. Night was unremarkable. Tolerating CPAP well. No cough. No sputum production, short of breath on exertion. No chest pain. No nausea. No vomiting. Abdominal pain is getting better. Colostomy working well. No leg pain or leg swelling. OBJECTIVE: GENERAL: In no acute distress. VITAL SIGNS: Temperature is 98, heart rate is 77, respiratory rate is 18, blood pressure 114/68, pulse ox 96% on room air. HEENT: Moist mucous membranes. Small oral cavity. NECK: Supple. No JVD. LUNGS: Have a fair airflow with rhonchi. HEART: S1 and S2. ABDOMEN: Soft. Surgical scar looks okay. Colostomy working well. EXTREMITY: There is no edema. NEUROLOGICAL: Awake, alert, follows simple command. MEDICATIONS: He is on bacitracin ointment to affected area three times a day, Dilaudid 0.5 mg IV every 6 hours p.r.n., Ditropan 5 mg at bedtime, Ecotrin 81 mg daily, heparin 03025 units subcu every 8 hours, Lasix is 20 mg daily, metoprolol tartrate 12.5 mg twice a day, morphine immediate release 50 mg every 4 hours p.r.n., nortriptyline 10 mg daily, Plavix 75 mg daily, Protonix 40 mg daily, Ranexa is 500 mg twice a day, Singulair 10 mg at bedtime, Tylenol p.r.n. basis, Xanax 0.25 mg twice a day p.r.n., Xopenex inhaled twice a day, Zofran p.r.n. basis. LABORATORY DATA: Shows hemoglobin 10.5, hematocrit 31.9, WBC 6.1, platelet count is 199. Sodium 139, potassium 4.1, chloride 100, bicarbonate 30, BUN 17, creatinine 0.9, glucose 138, calcium 8.4, phosphorus 3.6, magnesium 1.9, AST 50, ALT 51, alk phos is 132. Albumin is 3.2. IMPRESSION AND PLAN: Status post visceral perforation requiring laparotomy and colostomy, chronic obstructive lung disease, history of lung cancer requiring wedge resection, has a mantle cell lymphoma, been on chemotherapy before, diabetes, may have sleep apnea syndrome, resolving pneumonia. Pulmonary point view, doing okay. Continue antibiotics as per Infectious Diseases. Encourage continuous positive airway pressure use. Keep head at 45 degrees. Bronchodilator. Gastric prophylaxis, deep venous thrombosis prophylaxis. Fall precaution. Thank you and we will follow with you. Thanh Duffy MD
[2017-07-08] MEDS: SILODOSIN 8 MG PO SCH (21:35)
[2017-07-09] MEDS: Pantoprazole 40 mg EC Tab PO SCH (05:30)
--- NOTE | 2017-07-09 06:49 | CP.PCM.PN ---
Subjective - Date & Time of Evaluation Date of Evaluation: 07/09/17 Time of Evaluation: 06:35 - Subjective Subjective: Sleeping in bed,easily awaken, comfortable, no distress, denies chest pain, denies shortness of breath Reason for consult: Continuity of care in TCU, cardiac follow up, status post explor lap for perforated viscus, Rob's procedure with colostomy. History of coronary artery disease with multiple stents,hypertension. Seen and examined by me and Dr. Hill Objective - Vital Signs/Intake and Output Vital Signs (last 24 hours): Temp Pulse Resp BP Pulse Ox 98.1 F 77 16 114/61 92 L 07/08/17 16:00 07/08/17 18:13 07/08/17 16:00 07/09/17 05:30 07/08/17 16:00 - Medications Medications: Current Medications Acetaminophen (Tylenol 325mg Tab) 650 mg PO Q4H PRN; Protocol PRN Reason: Pain, Mild (1-3) Last Admin: 07/05/17 08:20 Dose: 650 mg Alprazolam (Xanax) 0.25 mg PO BID PRN; Protocol PRN Reason: Anxiety Stop: 07/11/17 14:27 Aspirin (Ecotrin) 81 mg PO 0800 [facility] PRN Reason: Protocol Last Admin: 07/08/17 09:04 Dose: 81 mg Bacitracin (Bacitracin) 0 gm TOP TID [facility] PRN Reason: Protocol Last Admin: 07/08/17 18:10 Dose: 1 applic Clopidogrel Bisulfate (Plavix) 75 mg PO DAILY [facility] PRN Reason: Protocol Last Admin: 07/08/17 09:08 Dose: 75 mg Furosemide (Lasix) 20 mg PO 0630 [facility] PRN Reason: Protocol Last Admin: 07/09/17 05:30 Dose: 20 mg Heparin Sodium (Porcine) (Heparin) 5,000 units SC Q8 [facility] PRN Reason: Protocol Last Admin: 07/09/17 05:28 Dose: 5,000 units Home Med (Home Med) 1 unit PO HS [facility] PRN Reason: Protocol Last Admin: 07/08/17 21:35 Dose: 1 unit Hydromorphone HCl (Dilaudid) 0.5 mg IVP Q6H PRN PRN Reason: Pain, severe (8-10) Last Admin: 07/07/17 02:48 Dose: 0.5 mg Insulin Human Regular (Humulin R Low) 0 units SC ACHS [facility] PRN Reason: Protocol Last Admin: 07/08/17 21:38 Dose: Not Given Levalbuterol HCl (Xopenex) 0.63 mg IH 0800,2000 [facility] PRN Reason: Protocol Last Admin: 07/08/17 19:13 Dose: 0.63 mg Metoprolol Tartrate (Lopressor) 12.5 mg PO 0800,1800 [facility] PRN Reason: Protocol Last Admin: 07/08/17 18:13 Dose: 12.5 mg Montelukast Sodium (Singulair) 10 mg PO HS [facility] PRN Reason: Protocol Last Admin: 07/08/17 21:35 Dose: 10 mg Morphine Sulfate (Morphine Immediate Release Tab) 15 mg PO Q4 PRN PRN Reason: Pain, moderate (4-7) Last Admin: 07/08/17 00:22 Dose: 15 mg Ranolazine Er [ (Ranexa] 500 Mg) 500 mg PO BID [facility] Last Admin: 07/08/17 18:13 Dose: 500 mg Nortriptyline HCl (Pamelor) 10 mg PO DAILY [facility] PRN Reason: Protocol Last Admin: 07/08/17 09:08 Dose: 10 mg Ondansetron HCl (Zofran Inj) 4 mg IVP Q4H PRN; Protocol PRN Reason: Nausea/Vomiting Oxybutynin Chloride (Ditropan Tab) 5 mg PO HS [facility] PRN Reason: Protocol Last Admin: 07/08/17 21:35 Dose: 5 mg Pantoprazole Sodium (Protonix Ec Tab) 40 mg PO 0630 [facility] PRN Reason: Protocol Last Admin: 07/09/17 05:30 Dose: 40 mg - Labs Labs: 07/08/17 06:45 07/08/17 06:45 - Constitutional Appears: No Acute Distress - Eye Exam Eye Exam: Normal appearance - ENT Exam ENT Exam: Mucous Membranes Moist - Respiratory Exam Respiratory Exam: Clear to Ausculation Bilateral, NORMAL BREATHING PATTERN - Cardiovascular Exam Cardiovascular Exam: +S1, +S2 Additional comments: right subclavian villa cath - GI/Abdominal Exam GI & Abdominal Exam: Soft, Normal Bowel Sounds Additional comments: colostomy,abdominal incision dry and intact - Exam Additional comments: continent/urinal - Extremities Exam Extremities Exam: Normal Capillary Refill - Neurological Exam Neurological Exam: Alert, Awake, Oriented x3 - Psychiatric Exam Psychiatric exam: Normal Affect, Normal Mood - Skin Skin Exam: Intact, Normal Color, Warm Assessment and Plan - Assessment and Plan (Free Text) Assessment: A 77 year old who came into the ER for severe abdominal pain. work up showed perforated viscus and underwent explor lap and Rob's procedure with colostomy. Transferred to ICU immediate post op intubated. History of coronary artery disease with multiple stents,mantle cell lymphoma, lung cancer, post wedge resection, hypertension,transferred to TCU for reconditioning. Plan: Progressing well post operatively Cardiac status stable Physical therapy in progress Colostomy care teaching in progress Discharge planning Continue current treatment Continue current medications Will follow up Plan and treatment discussed with Dr. Hill
[2017-07-09] MEDS: Insulin Reg-LOW-Coverage SC SCH ×4 (06:53→22:17)
[2017-07-09] MEDS: Levalbuterol 0.63 MG/3 ML Inhal Soln UD IH SCH ×2 (07:13→19:32)
--- NOTE | 2017-07-09 08:14 | CP.PCM.PN ---
Subjective - Date & Time of Evaluation Date of Evaluation: 07/09/17 Time of Evaluation: 07:10 - Subjective Subjective: PGY-1 surgery progress note for Dr. Pabon Patient seen and examined. Patient endorses no new complaints at this time. No acute events noted. Objective - Vital Signs/Intake and Output Vital Signs (last 24 hours): Temp Pulse Resp BP Pulse Ox 98.1 F 82 16 114/61 92 L 07/08/17 16:00 07/09/17 07:52 07/08/17 16:00 07/09/17 07:52 07/08/17 16:00 - Medications Medications: Current Medications Acetaminophen (Tylenol 325mg Tab) 650 mg PO Q4H PRN; Protocol PRN Reason: Pain, Mild (1-3) Last Admin: 07/05/17 08:20 Dose: 650 mg Alprazolam (Xanax) 0.25 mg PO BID PRN; Protocol PRN Reason: Anxiety Stop: 07/11/17 14:27 Aspirin (Ecotrin) 81 mg PO 0800 [facility] PRN Reason: Protocol Last Admin: 07/09/17 07:52 Dose: 81 mg Bacitracin (Bacitracin) 0 gm TOP TID [facility] PRN Reason: Protocol Last Admin: 07/08/17 18:10 Dose: 1 applic Clopidogrel Bisulfate (Plavix) 75 mg PO DAILY [facility] PRN Reason: Protocol Last Admin: 07/08/17 09:08 Dose: 75 mg Furosemide (Lasix) 20 mg PO 0630 [facility] PRN Reason: Protocol Last Admin: 07/09/17 05:30 Dose: 20 mg Heparin Sodium (Porcine) (Heparin) 5,000 units SC Q8 [facility] PRN Reason: Protocol Last Admin: 07/09/17 05:28 Dose: 5,000 units Home Med (Home Med) 1 unit PO HS [facility] PRN Reason: Protocol Last Admin: 07/08/17 21:35 Dose: 1 unit Hydromorphone HCl (Dilaudid) 0.5 mg IVP Q6H PRN PRN Reason: Pain, severe (8-10) Last Admin: 07/07/17 02:48 Dose: 0.5 mg Insulin Human Regular (Humulin R Low) 0 units SC ACHS [facility] PRN Reason: Protocol Last Admin: 07/09/17 06:53 Dose: 1 units Levalbuterol HCl (Xopenex) 0.63 mg IH 0800,2000 [facility] PRN Reason: Protocol Last Admin: 07/09/17 07:13 Dose: 0.63 mg Metoprolol Tartrate (Lopressor) 12.5 mg PO 0800,1800 [facility] PRN Reason: Protocol Last Admin: 07/09/17 07:52 Dose: 12.5 mg Montelukast Sodium (Singulair) 10 mg PO HS [facility] PRN Reason: Protocol Last Admin: 07/08/17 21:35 Dose: 10 mg Morphine Sulfate (Morphine Immediate Release Tab) 15 mg PO Q4 PRN PRN Reason: Pain, moderate (4-7) Last Admin: 07/08/17 00:22 Dose: 15 mg Ranolazine Er [ (Ranexa] 500 Mg) 500 mg PO BID [facility] Last Admin: 07/08/17 18:13 Dose: 500 mg Nortriptyline HCl (Pamelor) 10 mg PO DAILY [facility] PRN Reason: Protocol Last Admin: 07/08/17 09:08 Dose: 10 mg Ondansetron HCl (Zofran Inj) 4 mg IVP Q4H PRN; Protocol PRN Reason: Nausea/Vomiting Oxybutynin Chloride (Ditropan Tab) 5 mg PO HS [facility] PRN Reason: Protocol Last Admin: 07/08/17 21:35 Dose: 5 mg Pantoprazole Sodium (Protonix Ec Tab) 40 mg PO 0630 [facility] PRN Reason: Protocol Last Admin: 07/09/17 05:30 Dose: 40 mg - Labs Labs: 07/08/17 06:45 07/08/17 06:45 - Constitutional Appears: No Acute Distress - Head Exam Head Exam: ATRAUMATIC, NORMOCEPHALIC - Eye Exam Eye Exam: EOMI, Normal appearance - ENT Exam ENT Exam: Mucous Membranes Moist - Respiratory Exam Respiratory Exam: NORMAL BREATHING PATTERN. absent: Respiratory Distress - Cardiovascular Exam Cardiovascular Exam: +S1, +S2 - GI/Abdominal Exam GI & Abdominal Exam: Soft, Normal Bowel Sounds. absent: Tenderness Additional comments: Midline incision healing. Admon along midline incision without surrounding erythema or drainage Stoma in place - Skin Skin Exam: Dry, Warm Assessment and Plan - Assessment and Plan (Free Text) Assessment: This is a 77 year old male with perforated viscous secondary to diverticulitis. S/P Rob's POD # 9. Plan: Perforated sigmoid colon s/p Rob's procedure POD #9 Topical betadine application to incision site daily ID following, off of antibiotics Continue PT OOB to chair Encourage incentive spirometer use Follow up in the office after [address] Cm Hernandez PGY-1
--- NOTE | 2017-07-09 09:01 | PN ---
DATE: 07/06/2017 PULMONARY PROGRESS NOTE REFERRING PHYSICIAN: Ted Santoyo MD. SUBJECTIVE: He is ambulating with the help of therapist. Night was unremarkable. Supposed to be on a CPAP, was not placed on. No headache, no rhinitis. Mild cough. No nausea, no vomiting. Mild abdominal discomfort. Colostomy bag working well. No leg pain or leg swelling. OBJECTIVE: GENERAL: In no acute distress. VITAL SIGNS: Temperature is 98, heart rate 77, respiratory rate is 18, blood pressure 116/68, pulse of 98% on nasal cannula. HEENT: Small oral cavity. Crowded airway. LUNG: Has a fair airflow with a few rhonchi. HEART: S1, S2. ABDOMEN: Soft. Mild tenderness. The incision site looks okay. Colostomy bag looks okay, draining well. EXTREMITIES: There is no edema. NEUROLOGIC: Awake, alert, and follows simple command. MEDICATIONS: Use bacitracin ointment to the affected area, three times a day; Dilaudid 0.5 mg IV every 6 hours p.r.n.; Ditropan 5 mg at bedtime; Ecotrin 81 mg daily; heparin 5000 units subcu every 8 hour; Lasix 20 mg daily; metoprolol tartrate 12.5 mg twice a day; morphine sulfate immediate release 15 mg every 4 hours p.r.n.; K-Phos is one pack three times a day; nortriptyline 10 mg daily; Plavix 75 mg daily; Protonix 40 g daily; Ranexa 500 mg twice a day; Singulair 10 mg daily; Tylenol p.r.n. basis; Xanax 0.25 mg twice a day p.r.n.; Xopenex inhaled twice a day; Zofran p.r.n. basis. LABORATORY DATA: Shows hemoglobin 10.6, hematocrit 31.8, WBC 6, platelet is 159. Sodium 137, potassium 4, chloride 101, bicarbonate 30, BUN 13, creatinine 0.8, glucose 137, calcium 8.4. AST 41, ALT 45, alk phos is 106. IMPRESSION AND PLAN: Status post visceral perforation requiring laparotomy and colostomy; chronic obstructive lung disease; history of lung cancer requiring wedge resection in the remote past; history of mantle cell lymphoma, been on chemotherapy; diabetes; may have sleep apnea syndrome; resolving aspiration pneumonia; has a pressure small ulcer on the nasal bridge. Pulmonary point of view, doing okay. Continue bronchodilator. Keep head at 45 degrees. Antibiotics as per Infectious Disease. Encouraged CPAP use with a whole face mask. Gastric prophylaxis. Fall precaution. Continue therapy. Thank you and we will follow with you Thanh Duffy MD
[2017-07-09] MEDS: Bacitracin Ointment 30 GM TUBE TOP SCH ×3 (10:23→17:12)
[2017-07-09] MEDS: RANOLAZINE 500 MG PO SCH ×2 (10:23→17:13)
--- NOTE | 2017-07-09 12:49 | CP.PCM.PN ---
<Dejah Ferreira - Last Filed: 07/09/17 16:27> Subjective - Date & Time of Evaluation Date of Evaluation: 07/09/17 Time of Evaluation: 11:00 - Subjective Subjective: PGY-2 GI progress note Patient seen and examined at the bedside in TCU. The chart was review. Patient tolerating oral intake. Stool noted from colostomy, no overt GI bleed. Patient with no complaints. Denies nausea, vomiting, or abdominal pain. Objective - Vital Signs/Intake and Output Vital Signs (last 24 hours): Temp Pulse Resp BP Pulse Ox 98.1 F 82 16 114/61 92 L 07/08/17 16:00 07/09/17 07:52 07/08/17 16:00 07/09/17 07:52 07/08/17 16:00 - Medications Medications: Current Medications Acetaminophen (Tylenol 325mg Tab) 650 mg PO Q4H PRN; Protocol PRN Reason: Pain, Mild (1-3) Last Admin: 07/05/17 08:20 Dose: 650 mg Alprazolam (Xanax) 0.25 mg PO BID PRN; Protocol PRN Reason: Anxiety Stop: 07/11/17 14:27 Aspirin (Ecotrin) 81 mg PO 0800 [facility] PRN Reason: Protocol Last Admin: 07/09/17 07:52 Dose: 81 mg Bacitracin (Bacitracin) 0 gm TOP TID [facility] PRN Reason: Protocol Last Admin: 07/09/17 10:23 Dose: 1 applic Clopidogrel Bisulfate (Plavix) 75 mg PO DAILY [facility] PRN Reason: Protocol Last Admin: 07/09/17 10:22 Dose: 75 mg Furosemide (Lasix) 20 mg PO 0630 [facility] PRN Reason: Protocol Last Admin: 07/09/17 05:30 Dose: 20 mg Heparin Sodium (Porcine) (Heparin) 5,000 units SC Q8 [facility] PRN Reason: Protocol Last Admin: 07/09/17 05:28 Dose: 5,000 units Home Med (Home Med) 1 unit PO HS [facility] PRN Reason: Protocol Last Admin: 07/08/17 21:35 Dose: 1 unit Hydromorphone HCl (Dilaudid) 0.5 mg IVP Q6H PRN PRN Reason: Pain, severe (8-10) Last Admin: 07/07/17 02:48 Dose: 0.5 mg Insulin Human Regular (Humulin R Low) 0 units SC ACHS [facility] PRN Reason: Protocol Last Admin: 07/09/17 11:42 Dose: Not Given Levalbuterol HCl (Xopenex) 0.63 mg IH 0800,2000 [facility] PRN Reason: Protocol Last Admin: 07/09/17 07:13 Dose: 0.63 mg Metoprolol Tartrate (Lopressor) 12.5 mg PO 0800,1800 [facility] PRN Reason: Protocol Last Admin: 07/09/17 07:52 Dose: 12.5 mg Montelukast Sodium (Singulair) 10 mg PO HS [facility] PRN Reason: Protocol Last Admin: 07/08/17 21:35 Dose: 10 mg Morphine Sulfate (Morphine Immediate Release Tab) 15 mg PO Q4 PRN PRN Reason: Pain, moderate (4-7) Last Admin: 07/08/17 00:22 Dose: 15 mg Ranolazine Er [ (Ranexa] 500 Mg) 500 mg PO BID [facility] Last Admin: 07/09/17 10:23 Dose: 500 mg Nortriptyline HCl (Pamelor) 10 mg PO DAILY [facility] PRN Reason: Protocol Last Admin: 07/09/17 10:22 Dose: 10 mg Ondansetron HCl (Zofran Inj) 4 mg IVP Q4H PRN; Protocol PRN Reason: Nausea/Vomiting Oxybutynin Chloride (Ditropan Tab) 5 mg PO HS [facility] PRN Reason: Protocol Last Admin: 07/08/17 21:35 Dose: 5 mg Pantoprazole Sodium (Protonix Ec Tab) 40 mg PO 0630 [facility] PRN Reason: Protocol Last Admin: 07/09/17 05:30 Dose: 40 mg - Labs Labs: 07/08/17 06:45 07/08/17 06:45 - Constitutional Appears: Well, No Acute Distress - Head Exam Head Exam: ATRAUMATIC, NORMOCEPHALIC - Eye Exam Eye Exam: EOMI, Normal appearance - ENT Exam ENT Exam: Mucous Membranes Moist - Respiratory Exam Respiratory Exam: Clear to Ausculation Bilateral, NORMAL BREATHING PATTERN. absent: Rhonchi, Wheezes, Respiratory Distress - Cardiovascular Exam Cardiovascular Exam: REGULAR RHYTHM, +S1, +S2. absent: Bradycardia, Tachycardia , Murmur - GI/Abdominal Exam GI & Abdominal Exam: Soft, Tenderness, Normal Bowel Sounds. absent: Distended, Firm Additional comments: ostomy in place brown stool, no blood, incision clean, dry and intact - Extremities Exam Extremities Exam: Normal Inspection. 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 Acute abdomen status post CT scan found to have free air, likely perforated diverticulitis History of stage IV mantle cell lymphoma History of lung cancer status post wedge resection Coronary artery disease status post stents 4 Hypokalemia- resolved Plan: continue on heart healthy diet On Plavix Continue IV antibiotics Monitor H&H and for overt GI bleed, H/H stablre GI prophylaxis DVT prophylaxis, on heparin SQ Monitor electrolytes and replete as necessary surgical follow-up Seen and discussed with Dr. Casiano. <Lakisha Casiano V - Last Filed: 07/10/17 01:05> Objective - Vital Signs/Intake and Output Vital Signs (last 24 hours): Temp Pulse Resp BP Pulse Ox 98.1 F 68 16 124/65 92 L 07/08/17 16:00 07/09/17 17:12 07/08/17 16:00 07/09/17 17:12 07/08/17 16:00 - Medications Medications: Current Medications Acetaminophen (Tylenol 325mg Tab) 650 mg PO Q4H PRN; Protocol PRN Reason: Pain, Mild (1-3) Last Admin: 07/05/17 08:20 Dose: 650 mg Alprazolam (Xanax) 0.25 mg PO BID PRN; Protocol PRN Reason: Anxiety Stop: 07/11/17 14:27 Aspirin (Ecotrin) 81 mg PO 0800 [facility] PRN Reason: Protocol Last Admin: 07/09/17 07:52 Dose: 81 mg Bacitracin (Bacitracin) 0 gm TOP TID [facility] PRN Reason: Protocol Last Admin: 07/09/17 17:12 Dose: 1 applic Clopidogrel Bisulfate (Plavix) 75 mg PO DAILY [facility] PRN Reason: Protocol Last Admin: 07/09/17 10:22 Dose: 75 mg Furosemide (Lasix) 20 mg PO 0630 [facility] PRN Reason: Protocol Last Admin: 07/09/17 05:30 Dose: 20 mg Heparin Sodium (Porcine) (Heparin) 5,000 units SC Q8 [facility] PRN Reason: Protocol Last Admin: 07/09/17 21:29 Dose: 5,000 units Home Med (Home Med) 1 unit PO HS [facility] PRN Reason: Protocol Last Admin: 07/09/17 21:36 Dose: 1 unit Hydromorphone HCl (Dilaudid) 0.5 mg IVP Q6H PRN PRN Reason: Pain, severe (8-10) Last Admin: 07/07/17 02:48 Dose: 0.5 mg Insulin Human Regular (Humulin R Low) 0 units SC ACHS [facility] PRN Reason: Protocol Last Admin: 07/09/17 22:17 Dose: Not Given Levalbuterol HCl (Xopenex) 0.63 mg IH 0800,2000 [facility] PRN Reason: Protocol Last Admin: 07/09/17 19:32 Dose: 0.63 mg Metoprolol Tartrate (Lopressor) 12.5 mg PO 0800,1800 [facility] PRN Reason: Protocol Last Admin: 07/09/17 17:12 Dose: 12.5 mg Montelukast Sodium (Singulair) 10 mg PO HS [facility] PRN Reason: Protocol Last Admin: 07/09/17 21:35 Dose: 10 mg Morphine Sulfate (Morphine Immediate Release Tab) 15 mg PO Q4 PRN PRN Reason: Pain, moderate (4-7) Last Admin: 07/08/17 00:22 Dose: 15 mg Ranolazine Er [ (Ranexa] 500 Mg) 500 mg PO BID [facility] Last Admin: 07/09/17 17:13 Dose: 500 mg Nortriptyline HCl (Pamelor) 10 mg PO DAILY [facility] PRN Reason: Protocol Last Admin: 07/09/17 10:22 Dose: 10 mg Ondansetron HCl (Zofran Inj) 4 mg IVP Q4H PRN; Protocol PRN Reason: Nausea/Vomiting Oxybutynin Chloride (Ditropan Tab) 5 mg PO HS [facility] PRN Reason: Protocol Last Admin: 07/09/17 21:35 Dose: 5 mg Pantoprazole Sodium (Protonix Ec Tab) 40 mg PO 0630 [facility] PRN Reason: Protocol Last Admin: 07/09/17 05:30 Dose: 40 mg - Labs Labs: 07/08/17 06:45 07/08/17 06:45 Attending/Attestation - Attestation I have personally seen and examined this patient.: Yes I have fully participated in the care of the patient.: Yes I have reviewed all pertinent clinical information, including history, physical exam and plan: Yes Notes (Text): This is an addendum to GI progress report dictated by the [employer].The patient was seen and examined earlier. Medical records, lab studies, imagings were reviewed. Last 24 hours events reviewed. Agreed with the above treatment plan as outlined in [employer] 's notes the with the addition of the following On examination abdomen soft coning well Tolerating diet 07/10/17 01:02
--- NOTE | 2017-07-09 19:23 | CP.PCM.PN ---
Subjective - Date & Time of Evaluation Date of Evaluation: 07/09/17 Time of Evaluation: 15:25 - Subjective Subjective: Feeling well, improved abdominal pain, no fevers, no nausea. Eating better. Objective - Vital Signs/Intake and Output Vital Signs (last 24 hours): Temp Pulse Resp BP Pulse Ox 98.1 F 82 16 114/61 92 L 07/08/17 16:00 07/09/17 07:52 07/08/17 16:00 07/09/17 07:52 07/08/17 16:00 - Medications Medications: Current Medications Acetaminophen (Tylenol 325mg Tab) 650 mg PO Q4H PRN; Protocol PRN Reason: Pain, Mild (1-3) Last Admin: 07/05/17 08:20 Dose: 650 mg Alprazolam (Xanax) 0.25 mg PO BID PRN; Protocol PRN Reason: Anxiety Stop: 07/11/17 14:27 Aspirin (Ecotrin) 81 mg PO 0800 [facility] PRN Reason: Protocol Last Admin: 07/09/17 07:52 Dose: 81 mg Bacitracin (Bacitracin) 0 gm TOP TID [facility] PRN Reason: Protocol Last Admin: 07/08/17 18:10 Dose: 1 applic Clopidogrel Bisulfate (Plavix) 75 mg PO DAILY [facility] PRN Reason: Protocol Last Admin: 07/08/17 09:08 Dose: 75 mg Furosemide (Lasix) 20 mg PO 0630 [facility] PRN Reason: Protocol Last Admin: 07/09/17 05:30 Dose: 20 mg Heparin Sodium (Porcine) (Heparin) 5,000 units SC Q8 [facility] PRN Reason: Protocol Last Admin: 07/09/17 05:28 Dose: 5,000 units Home Med (Home Med) 1 unit PO HS [facility] PRN Reason: Protocol Last Admin: 07/08/17 21:35 Dose: 1 unit Hydromorphone HCl (Dilaudid) 0.5 mg IVP Q6H PRN PRN Reason: Pain, severe (8-10) Last Admin: 07/07/17 02:48 Dose: 0.5 mg Insulin Human Regular (Humulin R Low) 0 units SC ACHS [facility] PRN Reason: Protocol Last Admin: 07/09/17 06:53 Dose: 1 units Levalbuterol HCl (Xopenex) 0.63 mg IH 0800,2000 [facility] PRN Reason: Protocol Last Admin: 07/09/17 07:13 Dose: 0.63 mg Metoprolol Tartrate (Lopressor) 12.5 mg PO 0800,1800 [facility] PRN Reason: Protocol Last Admin: 07/09/17 07:52 Dose: 12.5 mg Montelukast Sodium (Singulair) 10 mg PO HS [facility] PRN Reason: Protocol Last Admin: 07/08/17 21:35 Dose: 10 mg Morphine Sulfate (Morphine Immediate Release Tab) 15 mg PO Q4 PRN PRN Reason: Pain, moderate (4-7) Last Admin: 07/08/17 00:22 Dose: 15 mg Ranolazine Er [ (Ranexa] 500 Mg) 500 mg PO BID [facility] Last Admin: 07/08/17 18:13 Dose: 500 mg Nortriptyline HCl (Pamelor) 10 mg PO DAILY [facility] PRN Reason: Protocol Last Admin: 07/08/17 09:08 Dose: 10 mg Ondansetron HCl (Zofran Inj) 4 mg IVP Q4H PRN; Protocol PRN Reason: Nausea/Vomiting Oxybutynin Chloride (Ditropan Tab) 5 mg PO HS [facility] PRN Reason: Protocol Last Admin: 07/08/17 21:35 Dose: 5 mg Pantoprazole Sodium (Protonix Ec Tab) 40 mg PO 0630 [facility] PRN Reason: Protocol Last Admin: 07/09/17 05:30 Dose: 40 mg - Labs Labs: 07/08/17 06:45 07/08/17 06:45 - Constitutional Appears: Chronically Ill - Head Exam Head Exam: NORMAL INSPECTION - ENT Exam ENT Exam: Mucous Membranes Moist - Neck Exam Neck Exam: absent: Meningismus - Respiratory Exam Respiratory Exam: Decreased Breath Sounds - Cardiovascular Exam Cardiovascular Exam: +S1, +S2 - GI/Abdominal Exam GI & Abdominal Exam: Soft. absent: Tenderness Additional comments: left sided colostomy in place, midline ex-lap scar healing Assessment and Plan - Assessment and Plan (Free Text) Plan: Assessment S/P severe sepsis S/P acute renal failure S/P ventilator-dependent respiratory failure due to acute perforated sigmoid colon with associated diverticulitis S/ P exploratory laparotomy, sigmoidectomy and colostomy history of sepsis due to acute bronchitis, with systemic viral illness history of UTI with E. 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
[2017-07-09] MEDS: SILODOSIN 8 MG PO SCH (21:36)
--- NOTE | 2017-07-09 21:47 | PN ---
DATE: 07/09/2017 PULMONARY PROGRESS NOTE REFERRING PHYSICIAN: Ted Santoyo MD SUBJECTIVE: The patient is lying in the bed at 45 degrees. Night was unremarkable. Feels better, tolerated CPAP well. No headache, no rhinitis, no cough. Mild abdominal pain. Colostomy working well. No leg pain or leg swelling. OBJECTIVE: General: In no acute distress. Vital Signs: Temp is 98, heart rate is 68, respiratory rate is 20, blood pressure 124/65, pulse ox 96% on nasal cannula. HEENT: Moist mucous membranes. Small oral cavity. Crowded airway. Neck: Supple. No JVD. Lungs: Fair airflow with rhonchi. Heart: S1, S2. Abdomen: Soft. Incision site looks okay. Colostomy working well. Extremities: There is no edema. Neurologic: Awake, alert, follows simple command. MEDICATIONS: He is on bacitracin ointment to affected area three times a day, Dilaudid 0.5 mg q.6h. p.r.n., Ditropan 5 mg at bedtime, Ecotrin 81 mg daily, heparin 5000 units subcu q.8h., insulin coverage, Lasix 20 mg daily, metoprolol tartrate 12.5 mg twice a day, morphine 50 mg q. 4 hours p.r.n., nortriptyline 10 mg daily, Plavix 75 mg daily, Protonix 40 mg daily, Ranexa 500 mg twice a day, Singulair 10 mg daily, Tylenol p.r.n., Xanax 0.25 mg twice a day p.r.n., Xopenex inhaled q.12h., Zofran p.r.n. basis. LABORATORY DATA: Reviewed. Blood sugar this morning 155. IMPRESSION AND PLAN: Status post visceral perforation requiring laparotomy and colostomy, chronic obstructive lung disease, history of lung cancer requiring wedge resection, mantle cell lymphoma, history of chemotherapy, diabetes, sleep apnea syndrome, resolving pneumonia. From a Pulmonary point of view, doing well. Continue bronchodilator. Keep head at 45 degrees. Encourage CPAP use. Gastric prophylaxis, DVT prophylaxis, antibiotics as per infectious diseases. Continue therapy. Thank you and we will follow with you. Thanh Duffy MD [facility] # [id number]
[2017-07-10] MEDS: Pantoprazole 40 mg EC Tab PO SCH (06:04)
[2017-07-10] MEDS: Insulin Reg-LOW-Coverage SC SCH ×4 (06:57→22:10)
[2017-07-10] MEDS: Levalbuterol 0.63 MG/3 ML Inhal Soln UD IH SCH ×2 (07:20→21:40)
--- NOTE | 2017-07-10 08:39 | CP.PCM.PN ---
Subjective - Date & Time of Evaluation Date of Evaluation: 07/10/17 Time of Evaluation: 06:55 - Subjective Subjective: Easily awaken, comfortable, no distress, denies chest pain, denies shortness of breath Reason for consult: Continuity of care in TCU, cardiac follow up, status post explor lap for perforated viscus, Rob's procedure with colostomy. History of coronary artery disease with multiple stents,hypertension. Seen and examined by me and Dr. Hill Objective - Vital Signs/Intake and Output Vital Signs (last 24 hours): Temp Pulse Resp BP Pulse Ox 97.7 F 65 20 133/71 96 07/10/17 06:00 07/10/17 07:45 07/10/17 06:00 07/10/17 07:45 07/10/17 06:00 - Medications Medications: Current Medications Acetaminophen (Tylenol 325mg Tab) 650 mg PO Q4H PRN; Protocol PRN Reason: Pain, Mild (1-3) Last Admin: 07/05/17 08:20 Dose: 650 mg Alprazolam (Xanax) 0.25 mg PO BID PRN; Protocol PRN Reason: Anxiety Stop: 07/11/17 14:27 Aspirin (Ecotrin) 81 mg PO 0800 [facility] PRN Reason: Protocol Last Admin: 07/10/17 07:43 Dose: 81 mg Bacitracin (Bacitracin) 0 gm TOP TID [facility] PRN Reason: Protocol Last Admin: 07/09/17 17:12 Dose: 1 applic Clopidogrel Bisulfate (Plavix) 75 mg PO DAILY [facility] PRN Reason: Protocol Last Admin: 07/09/17 10:22 Dose: 75 mg Furosemide (Lasix) 20 mg PO 0630 [facility] PRN Reason: Protocol Last Admin: 07/10/17 06:03 Dose: 20 mg Heparin Sodium (Porcine) (Heparin) 5,000 units SC Q8 [facility] PRN Reason: Protocol Last Admin: 07/10/17 06:02 Dose: 5,000 units Home Med (Home Med) 1 unit PO HS [facility] PRN Reason: Protocol Last Admin: 07/09/17 21:36 Dose: 1 unit Hydromorphone HCl (Dilaudid) 0.5 mg IVP Q6H PRN PRN Reason: Pain, severe (8-10) Last Admin: 07/07/17 02:48 Dose: 0.5 mg Insulin Human Regular (Humulin R Low) 0 units SC ACHS [facility] PRN Reason: Protocol Last Admin: 07/10/17 06:57 Dose: Not Given Levalbuterol HCl (Xopenex) 0.63 mg IH 0800,2000 [facility] PRN Reason: Protocol Last Admin: 07/10/17 07:20 Dose: 0.63 mg Metoprolol Tartrate (Lopressor) 12.5 mg PO 0800,1800 [facility] PRN Reason: Protocol Last Admin: 07/10/17 07:45 Dose: 12.5 mg Montelukast Sodium (Singulair) 10 mg PO HS [facility] PRN Reason: Protocol Last Admin: 07/09/17 21:35 Dose: 10 mg Morphine Sulfate (Morphine Immediate Release Tab) 15 mg PO Q4 PRN PRN Reason: Pain, moderate (4-7) Last Admin: 07/08/17 00:22 Dose: 15 mg Ranolazine Er [ (Ranexa] 500 Mg) 500 mg PO BID [facility] Last Admin: 07/09/17 17:13 Dose: 500 mg Nortriptyline HCl (Pamelor) 10 mg PO DAILY [facility] PRN Reason: Protocol Last Admin: 07/09/17 10:22 Dose: 10 mg Ondansetron HCl (Zofran Inj) 4 mg IVP Q4H PRN; Protocol PRN Reason: Nausea/Vomiting Oxybutynin Chloride (Ditropan Tab) 5 mg PO HS [facility] PRN Reason: Protocol Last Admin: 07/09/17 21:35 Dose: 5 mg Pantoprazole Sodium (Protonix Ec Tab) 40 mg PO 0630 [facility] PRN Reason: Protocol Last Admin: 07/10/17 06:04 Dose: 40 mg - Labs Labs: 07/08/17 06:45 07/08/17 06:45 - Constitutional Appears: No Acute Distress - Head Exam Head Exam: NORMOCEPHALIC - ENT Exam ENT Exam: Mucous Membranes Moist - Respiratory Exam Respiratory Exam: Clear to Ausculation Bilateral, NORMAL BREATHING PATTERN - Cardiovascular Exam Cardiovascular Exam: +S1, +S2 Additional comments: right subclavian villa cath - GI/Abdominal Exam GI & Abdominal Exam: Soft, Normal Bowel Sounds Additional comments: abdominal incision intact, no sign of infection, colostomy - Exam Additional comments: continent,urinal - Extremities Exam Extremities Exam: Full ROM, Normal Capillary Refill - Neurological Exam Neurological Exam: Alert, Awake, Oriented x3 - Psychiatric Exam Psychiatric exam: Normal Affect, Normal Mood - Skin Skin Exam: Intact, Normal Color, Warm Assessment and Plan - Assessment and Plan (Free Text) Assessment: A 77 year old who came into the ER for severe abdominal pain. work up showed perforated viscus and underwent explor lap and Rob's procedure with colostomy. Transferred to ICU immediate post op intubated. History of coronary artery disease with multiple stents,mantle cell lymphoma, lung cancer, post wedge resection, hypertension,transferred to TCU for reconditioning. Plan: Physical therapy in progress OOB to chair Progressing well post operatively Cardiac status stable Colostomy care teaching in progress Discharge planning Continue current treatment Continue current medications Will follow up Plan and treatment discussed with Dr. Hill
--- NOTE | 2017-07-10 08:55 | CP.PCM.PN ---
Subjective - Date & Time of Evaluation Date of Evaluation: 07/10/17 Time of Evaluation: 07:30 - Subjective Subjective: Heme Onc Progress Note - Dr. Myers Patient was seen and examined at bedside. No acute complaints at this time. As per nursing staff, pt refused CPAP at night despite counselling. Otherwise no acute or adverse events overnight. Pt found resting comfortably. Denied fever, chills, shortness of breath, chest pains, nausea, vomiting dysuria. Colostomy bag in place, right chest wall port in place. Objective - Vital Signs/Intake and Output Vital Signs (last 24 hours): Temp Pulse Resp BP Pulse Ox 97.7 F 65 20 133/71 96 07/10/17 06:00 07/10/17 07:45 07/10/17 06:00 07/10/17 07:45 07/10/17 06:00 - Medications Medications: Current Medications Acetaminophen (Tylenol 325mg Tab) 650 mg PO Q4H PRN; Protocol PRN Reason: Pain, Mild (1-3) Last Admin: 07/05/17 08:20 Dose: 650 mg Alprazolam (Xanax) 0.25 mg PO BID PRN; Protocol PRN Reason: Anxiety Stop: 07/11/17 14:27 Aspirin (Ecotrin) 81 mg PO 0800 [facility] PRN Reason: Protocol Last Admin: 07/10/17 07:43 Dose: 81 mg Bacitracin (Bacitracin) 0 gm TOP TID [facility] PRN Reason: Protocol Last Admin: 07/09/17 17:12 Dose: 1 applic Clopidogrel Bisulfate (Plavix) 75 mg PO DAILY [facility] PRN Reason: Protocol Last Admin: 07/09/17 10:22 Dose: 75 mg Furosemide (Lasix) 20 mg PO 0630 [facility] PRN Reason: Protocol Last Admin: 07/10/17 06:03 Dose: 20 mg Heparin Sodium (Porcine) (Heparin) 5,000 units SC Q8 [facility] PRN Reason: Protocol Last Admin: 07/10/17 06:02 Dose: 5,000 units Home Med (Home Med) 1 unit PO HS [facility] PRN Reason: Protocol Last Admin: 07/09/17 21:36 Dose: 1 unit Hydromorphone HCl (Dilaudid) 0.5 mg IVP Q6H PRN PRN Reason: Pain, severe (8-10) Last Admin: 07/07/17 02:48 Dose: 0.5 mg Insulin Human Regular (Humulin R Low) 0 units SC ACHS [facility] PRN Reason: Protocol Last Admin: 07/10/17 06:57 Dose: Not Given Levalbuterol HCl (Xopenex) 0.63 mg IH 0800,2000 [facility] PRN Reason: Protocol Last Admin: 07/10/17 07:20 Dose: 0.63 mg Metoprolol Tartrate (Lopressor) 12.5 mg PO 0800,1800 [facility] PRN Reason: Protocol Last Admin: 07/10/17 07:45 Dose: 12.5 mg Montelukast Sodium (Singulair) 10 mg PO HS [facility] PRN Reason: Protocol Last Admin: 07/09/17 21:35 Dose: 10 mg Morphine Sulfate (Morphine Immediate Release Tab) 15 mg PO Q4 PRN PRN Reason: Pain, moderate (4-7) Last Admin: 07/08/17 00:22 Dose: 15 mg Ranolazine Er [ (Ranexa] 500 Mg) 500 mg PO BID [facility] Last Admin: 07/09/17 17:13 Dose: 500 mg Nortriptyline HCl (Pamelor) 10 mg PO DAILY [facility] PRN Reason: Protocol Last Admin: 07/09/17 10:22 Dose: 10 mg Ondansetron HCl (Zofran Inj) 4 mg IVP Q4H PRN; Protocol PRN Reason: Nausea/Vomiting Oxybutynin Chloride (Ditropan Tab) 5 mg PO HS [facility] PRN Reason: Protocol Last Admin: 07/09/17 21:35 Dose: 5 mg Pantoprazole Sodium (Protonix Ec Tab) 40 mg PO 0630 [facility] PRN Reason: Protocol Last Admin: 07/10/17 06:04 Dose: 40 mg - Labs Labs: 07/08/17 06:45 07/08/17 06:45 - Constitutional Appears: No Acute Distress - Head Exam Head Exam: ATRAUMATIC, NORMAL INSPECTION, NORMOCEPHALIC - Eye Exam Eye Exam: EOMI, Normal appearance, PERRL Pupil Exam: NORMAL ACCOMODATION, PERRL - ENT Exam ENT Exam: Mucous Membranes Moist, Normal Exam - Respiratory Exam Respiratory Exam: Decreased Breath Sounds, NORMAL BREATHING PATTERN Additional comments: Right CW port - Cardiovascular Exam Cardiovascular Exam: RRR, +S1, +S2 - GI/Abdominal Exam GI & Abdominal Exam: Soft, Tenderness Additional comments: Midline thierno to abdomen, dressing CDI, colostomy in place minimal stool - Extremities Exam Extremities Exam: Full ROM, Normal Capillary Refill, Normal Inspection. absent : Joint Swelling, Pedal Edema - Neurological Exam Neurological Exam: Alert, Awake, CN II-XII Intact, Oriented x3 - Psychiatric Exam Psychiatric exam: Normal Affect, Normal Mood - Skin Skin Exam: Dry, Intact, Normal Color, Warm Assessment and Plan - Assessment and Plan (Free Text) Assessment: 77 M with a PMHx of CAD, ARMIDA, lung cancer, HLD, stage 4 mantle cell lymphoma, and COPD admitted to TCU for continuity of care and rehab status post ex-lap for perforated viscus, Rob's procedure with colostomy. Continue to train colostomy changes, continue HHD, cardiology Dr Hill following reccs. Continue PT, OOB. Dr. Duffy following, pulm, continue counselling and encourage CPAP use at night.
[2017-07-10] MEDS: RANOLAZINE 500 MG PO SCH ×2 (10:57→17:48)
[2017-07-10] MEDS: Bacitracin Ointment 30 GM TUBE TOP SCH ×3 (10:58→17:56)
--- NOTE | 2017-07-10 14:17 | CP.PCM.PN ---
Subjective - Date & Time of Evaluation Date of Evaluation: 07/10/17 Time of Evaluation: 11:25 - Subjective Subjective: No fevers, eating well, no diarrheal stool in the colostomy bag, no nausea or vomiting. Objective - Vital Signs/Intake and Output Vital Signs (last 24 hours): Temp Pulse Resp BP Pulse Ox 97.7 F 65 20 133/71 96 07/10/17 06:00 07/10/17 07:45 07/10/17 06:00 07/10/17 07:45 07/10/17 06:00 - Medications Medications: Current Medications Acetaminophen (Tylenol 325mg Tab) 650 mg PO Q4H PRN; Protocol PRN Reason: Pain, Mild (1-3) Last Admin: 07/05/17 08:20 Dose: 650 mg Alprazolam (Xanax) 0.25 mg PO BID PRN; Protocol PRN Reason: Anxiety Stop: 07/11/17 14:27 Aspirin (Ecotrin) 81 mg PO 0800 [facility] PRN Reason: Protocol Last Admin: 07/10/17 07:43 Dose: 81 mg Bacitracin (Bacitracin) 0 gm TOP TID [facility] PRN Reason: Protocol Last Admin: 07/09/17 17:12 Dose: 1 applic Clopidogrel Bisulfate (Plavix) 75 mg PO DAILY [facility] PRN Reason: Protocol Last Admin: 07/09/17 10:22 Dose: 75 mg Furosemide (Lasix) 20 mg PO 0630 [facility] PRN Reason: Protocol Last Admin: 07/10/17 06:03 Dose: 20 mg Heparin Sodium (Porcine) (Heparin) 5,000 units SC Q8 [facility] PRN Reason: Protocol Last Admin: 07/10/17 06:02 Dose: 5,000 units Home Med (Home Med) 1 unit PO HS [facility] PRN Reason: Protocol Last Admin: 07/09/17 21:36 Dose: 1 unit Hydromorphone HCl (Dilaudid) 0.5 mg IVP Q6H PRN PRN Reason: Pain, severe (8-10) Last Admin: 07/07/17 02:48 Dose: 0.5 mg Insulin Human Regular (Humulin R Low) 0 units SC ACHS [facility] PRN Reason: Protocol Last Admin: 07/10/17 06:57 Dose: Not Given Levalbuterol HCl (Xopenex) 0.63 mg IH 0800,2000 [facility] PRN Reason: Protocol Last Admin: 07/10/17 07:20 Dose: 0.63 mg Metoprolol Tartrate (Lopressor) 12.5 mg PO 0800,1800 [facility] PRN Reason: Protocol Last Admin: 07/10/17 07:45 Dose: 12.5 mg Montelukast Sodium (Singulair) 10 mg PO HS [facility] PRN Reason: Protocol Last Admin: 07/09/17 21:35 Dose: 10 mg Ranolazine Er [ (Ranexa] 500 Mg) 500 mg PO BID [facility] Last Admin: 07/09/17 17:13 Dose: 500 mg Nortriptyline HCl (Pamelor) 10 mg PO DAILY [facility] PRN Reason: Protocol Last Admin: 07/09/17 10:22 Dose: 10 mg Ondansetron HCl (Zofran Inj) 4 mg IVP Q4H PRN; Protocol PRN Reason: Nausea/Vomiting Oxybutynin Chloride (Ditropan Tab) 5 mg PO HS [facility] PRN Reason: Protocol Last Admin: 07/09/17 21:35 Dose: 5 mg Pantoprazole Sodium (Protonix Ec Tab) 40 mg PO 0630 [facility] PRN Reason: Protocol Last Admin: 07/10/17 06:04 Dose: 40 mg - Labs Labs: 07/08/17 06:45 07/08/17 06:45 - Constitutional Appears: Chronically Ill - Head Exam Head Exam: NORMAL INSPECTION - ENT Exam ENT Exam: Mucous Membranes Moist - Neck Exam Neck Exam: absent: Meningismus - Respiratory Exam Respiratory Exam: Decreased Breath Sounds - Cardiovascular Exam Cardiovascular Exam: +S1, +S2 - GI/Abdominal Exam GI & Abdominal Exam: Soft. absent: Tenderness Additional comments: left sided colostomy in place; thierno in place over ex-lap surgical scar Assessment and Plan - Assessment and Plan (Free Text) Plan: Assessment S/P severe sepsis S/P acute renal failure S/P ventilator-dependent respiratory failure due to acute perforated sigmoid colon with associated diverticulitis S/ P exploratory laparotomy, sigmoidectomy and colostomy history of sepsis due to acute bronchitis, with systemic viral illness history of UTI with E. 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
[2017-07-10] MEDS: SILODOSIN 8 MG PO SCH (21:20)
--- NOTE | 2017-07-11 03:00 | PN ---
DATE: 07/10/2017 PULMONARY PROGRESS NOTE REFERRING PHYSICIAN: Ted Santoyo MD. SUBJECTIVE: The patient is lying in the reclining chair. Night was unremarkable. Doing well in therapy. Tolerating the CPAP well with whole face mask. nasal bridge is improving. No nausea. No vomiting. Denies any abdominal pain. Colostomy working well. No leg pain or leg swelling. OBJECTIVE: GENERAL: In no acute distress. VITAL SIGNS: Temp is 98, heart rate 65, respiratory rate is 20, blood pressure 109/58, pulse ox 96% on room air. HEENT: Moist mucous membrane. Small oral cavity. NECK: Supple. No JVD. LUNGS: Have a fair airflow with rhonchi. HEART: S1 and S2. ABDOMEN: Soft. Midline surgical scar healing well. Suture line looks okay. Colostomy bag working well. EXTREMITIES: There is no edema. NEUROLOGICAL: Awake and alert. Follows simple command. LABORATORY DATA: Reviewed and noted. Blood sugar 170. MEDICATIONS: He is on bacitracin ointment to affected area, Ditropan 5 mg at bedtime, Ecotrin 81 mg daily, heparin 5000 units subcu every 8 hours, Lasix 20 mg daily, metoprolol tartrate 12.5 mg twice a day, nortriptyline 10 mg daily, Plavix 75 mg daily, Protonix 40 mg daily, Ranexa 500 mg twice a day, Singulair 10 mg daily, Tylenol p.r.n. basis, Xanax 0.25 mg twice a day p.r.n., Xopenex inhaled every 12 hours, Zofran p.r.n. basis. IMPRESSION AND PLAN: Status post visceral perforation requiring laparotomy and colostomy, chronic obstructive lung disease, history of lung cancer requiring wedge resection, mantle cell lymphoma, history of chemotherapy, diabetes, sleep apnea syndrome, resolving pneumonia. Pulmonary point of view, doing okay. Continue bronchodilator. Keep head at 45 degrees. Continuous positive airway pressure use. Gastric prophylaxis, deep venous thrombosis prophylaxis. Continue therapy. Thank you and we will follow with you. Thanh Duffy MD [facility] # [phone]
[2017-07-11] MEDS: Pantoprazole 40 mg EC Tab PO SCH (06:01)
[2017-07-11] MEDS: Insulin Reg-LOW-Coverage SC SCH ×4 (06:34→22:21)
--- NOTE | 2017-07-11 07:06 | CP.PCM.PN ---
Subjective - Date & Time of Evaluation Date of Evaluation: 07/11/17 Time of Evaluation: 06:30 - Subjective Subjective: Awake, comfortable, no distress, denies chest pain, denies shortness of breath Reason for consult: Continuity of care in TCU, cardiac follow up, status post explor lap for perforated viscus, Rob's procedure with colostomy. History of coronary artery disease with multiple stents,hypertension. Seen and examined by me and Dr. Hill Objective - Vital Signs/Intake and Output Vital Signs (last 24 hours): Temp Pulse Resp BP Pulse Ox 97.7 F 70 20 122/62 96 07/10/17 06:00 07/10/17 17:48 07/10/17 06:00 07/11/17 06:01 07/10/17 06:00 - Medications Medications: Current Medications Acetaminophen (Tylenol 325mg Tab) 650 mg PO Q4H PRN; Protocol PRN Reason: Pain, Mild (1-3) Last Admin: 07/05/17 08:20 Dose: 650 mg Alprazolam (Xanax) 0.25 mg PO BID PRN; Protocol PRN Reason: Anxiety Stop: 07/11/17 14:27 Aspirin (Ecotrin) 81 mg PO 0800 [facility] PRN Reason: Protocol Last Admin: 07/10/17 07:43 Dose: 81 mg Bacitracin (Bacitracin) 0 gm TOP TID [facility] PRN Reason: Protocol Last Admin: 07/10/17 17:56 Dose: 1 applic Clopidogrel Bisulfate (Plavix) 75 mg PO DAILY [facility] PRN Reason: Protocol Last Admin: 07/10/17 10:57 Dose: 75 mg Furosemide (Lasix) 20 mg PO 0630 [facility] PRN Reason: Protocol Last Admin: 07/11/17 06:01 Dose: 20 mg Heparin Sodium (Porcine) (Heparin) 5,000 units SC Q8 [facility] PRN Reason: Protocol Last Admin: 07/11/17 05:58 Dose: 5,000 units Home Med (Home Med) 1 unit PO HS [facility] PRN Reason: Protocol Last Admin: 07/10/17 21:20 Dose: 1 unit Insulin Human Regular (Humulin R Low) 0 units SC ACHS [facility] PRN Reason: Protocol Last Admin: 07/11/17 06:34 Dose: Not Given Levalbuterol HCl (Xopenex) 0.63 mg IH 0800,1999 [facility] PRN Reason: Protocol Last Admin: 07/10/17 21:40 Dose: 0.63 mg Metoprolol Tartrate (Lopressor) 12.5 mg PO 0800,1800 [facility] PRN Reason: Protocol Last Admin: 07/10/17 17:48 Dose: 12.5 mg Montelukast Sodium (Singulair) 10 mg PO HS [facility] PRN Reason: Protocol Last Admin: 07/10/17 21:19 Dose: 10 mg Ranolazine Er [ (Ranexa] 500 Mg) 500 mg PO BID [facility] Last Admin: 07/10/17 17:48 Dose: 500 mg Nortriptyline HCl (Pamelor) 10 mg PO DAILY [facility] PRN Reason: Protocol Last Admin: 07/10/17 10:57 Dose: 10 mg Ondansetron HCl (Zofran Inj) 4 mg IVP Q4H PRN; Protocol PRN Reason: Nausea/Vomiting Oxybutynin Chloride (Ditropan Tab) 5 mg PO HS [facility] PRN Reason: Protocol Last Admin: 07/10/17 21:19 Dose: 5 mg Pantoprazole Sodium (Protonix Ec Tab) 40 mg PO 0630 [facility] PRN Reason: Protocol Last Admin: 07/11/17 06:01 Dose: 40 mg - Labs Labs: 07/08/17 06:45 07/08/17 06:45 - Constitutional Appears: No Acute Distress - Eye Exam Eye Exam: Normal appearance - ENT Exam ENT Exam: Mucous Membranes Moist - Respiratory Exam Respiratory Exam: Clear to Ausculation Bilateral, NORMAL BREATHING PATTERN - Cardiovascular Exam Cardiovascular Exam: +S1, +S2 Additional comments: right subclavian villa cath,site no signs of infection - GI/Abdominal Exam GI & Abdominal Exam: Soft, Normal Bowel Sounds Additional comments: incision dry and intact,thierno and steristrip intact colostomy, gia site no drainage,dry - Exam Additional comments: urinal,continent - Extremities Exam Extremities Exam: Normal Capillary Refill - Neurological Exam Neurological Exam: Alert, Awake, Oriented x3 - Psychiatric Exam Psychiatric exam: Normal Affect, Normal Mood - Skin Skin Exam: Intact, Normal Color, Warm Assessment and Plan - Assessment and Plan (Free Text) Assessment: A 77 year old who came into the ER for severe abdominal pain. work up showed perforated viscus and underwent explor lap and Rob's procedure with colostomy. Transferred to ICU immediate post op intubated. History of coronary artery disease with multiple stents,mantle cell lymphoma, lung cancer, post wedge resection, hypertension,transferred to TCU for reconditioning. Plan: Doing well postoperatively Cardiac status stable Physical therapy in progress Hemoglobin/Hematocrit stable Colostomy care teaching in progress Discharge planning Continue current treatment Continue current medications Will follow up Plan and treatment discussed with Dr. Hill
[2017-07-11] MEDS: Levalbuterol 0.63 MG/3 ML Inhal Soln UD IH SCH ×2 (07:10→21:00)
[2017-07-11] MEDS: Bacitracin Ointment 30 GM TUBE TOP SCH ×3 (10:46→17:37)
[2017-07-11] MEDS: RANOLAZINE 500 MG PO SCH ×2 (10:47→17:38)
--- NOTE | 2017-07-11 11:19 | CP.PCM.PN ---
<Dejah Ferreira - Last Filed: 07/11/17 15:17> Subjective - Date & Time of Evaluation Date of Evaluation: 07/11/17 Time of Evaluation: 09:00 - Subjective Subjective: PGY-2 GI progress note Patient seen and examined at the bedside in TCU. The chart was review. Patient tolerating oral intake. Stool noted from colostomy, no overt GI bleed. Patient with no complaints. Denies nausea, vomiting, or abdominal pain. Patient states that he would like more information about how to care for his ostomy. Objective - Vital Signs/Intake and Output Vital Signs (last 24 hours): Temp Pulse Resp BP Pulse Ox 97.7 F 81 20 116/59 L 96 07/10/17 06:00 07/11/17 07:57 07/10/17 06:00 07/11/17 07:57 07/10/17 06:00 - Medications Medications: Current Medications Acetaminophen (Tylenol 325mg Tab) 650 mg PO Q4H PRN; Protocol PRN Reason: Pain, Mild (1-3) Last Admin: 07/05/17 08:20 Dose: 650 mg Alprazolam (Xanax) 0.25 mg PO BID PRN; Protocol PRN Reason: Anxiety Stop: 07/11/17 14:27 Aspirin (Ecotrin) 81 mg PO 0800 [facility] PRN Reason: Protocol Last Admin: 07/11/17 07:57 Dose: 81 mg Bacitracin (Bacitracin) 0 gm TOP TID [facility] PRN Reason: Protocol Last Admin: 07/11/17 10:46 Dose: 1 applic Clopidogrel Bisulfate (Plavix) 75 mg PO DAILY [facility] PRN Reason: Protocol Last Admin: 07/11/17 10:47 Dose: 75 mg Furosemide (Lasix) 20 mg PO 0630 [facility] PRN Reason: Protocol Last Admin: 07/11/17 06:01 Dose: 20 mg Heparin Sodium (Porcine) (Heparin) 5,000 units SC Q8 [facility] PRN Reason: Protocol Last Admin: 07/11/17 05:58 Dose: 5,000 units Home Med (Home Med) 1 unit PO HS [facility] PRN Reason: Protocol Last Admin: 07/10/17 21:20 Dose: 1 unit Insulin Human Regular (Humulin R Low) 0 units SC ACHS [facility] PRN Reason: Protocol Last Admin: 07/11/17 06:34 Dose: Not Given Levalbuterol HCl (Xopenex) 0.63 mg IH 0800,2000 [facility] PRN Reason: Protocol Last Admin: 07/11/17 07:10 Dose: 0.63 mg Metoprolol Tartrate (Lopressor) 12.5 mg PO 0800,1800 [facility] PRN Reason: Protocol Last Admin: 07/11/17 07:57 Dose: 12.5 mg Montelukast Sodium (Singulair) 10 mg PO HS [facility] PRN Reason: Protocol Last Admin: 07/10/17 21:19 Dose: 10 mg Ranolazine Er [ (Ranexa] 500 Mg) 500 mg PO BID [facility] Last Admin: 07/11/17 10:47 Dose: 500 mg Nortriptyline HCl (Pamelor) 10 mg PO DAILY [facility] PRN Reason: Protocol Last Admin: 07/11/17 10:46 Dose: 10 mg Ondansetron HCl (Zofran Inj) 4 mg IVP Q4H PRN; Protocol PRN Reason: Nausea/Vomiting Oxybutynin Chloride (Ditropan Tab) 5 mg PO HS [facility] PRN Reason: Protocol Last Admin: 07/10/17 21:19 Dose: 5 mg Pantoprazole Sodium (Protonix Ec Tab) 40 mg PO 0630 [facility] PRN Reason: Protocol Last Admin: 07/11/17 06:01 Dose: 40 mg - Labs Labs: 07/08/17 06:45 07/08/17 06:45 - Constitutional Appears: Well, No Acute Distress - Head Exam Head Exam: ATRAUMATIC, NORMOCEPHALIC - Eye Exam Eye Exam: EOMI, Normal appearance - ENT Exam ENT Exam: Mucous Membranes Moist - Respiratory Exam Respiratory Exam: Clear to Ausculation Bilateral, NORMAL BREATHING PATTERN. absent: Decreased Breath Sounds, Rales, Rhonchi, Wheezes, Respiratory Distress - Cardiovascular Exam Cardiovascular Exam: REGULAR RHYTHM, +S1, +S2. absent: Bradycardia, Tachycardia , Murmur - GI/Abdominal Exam GI & Abdominal Exam: Soft, Normal Bowel Sounds. absent: Distended, Firm, Tenderness - Neurological Exam Neurological Exam: Alert, Awake, Oriented x3 - Skin Skin Exam: Dry, Intact, Normal Color, Warm Assessment and Plan - Assessment and Plan (Free Text) Assessment: 77 Male history of stage IV mantle cell lymphomathat is quiescence, lung cancer s/p wedge resection, hypoglobulinemia reciving treatment, CAD s/p stent placement, diabetes, HTN, COPD who presented with an acute abdomen due to perforated sigmoid diverticulitis, s/p Status post emergency exploratory laparotomy with Rob's procedure, complicated with hypoxemic respiratory failure. Acute abdomen status post CT scan found to have free air, likely perforated diverticulitis History of stage IV mantle cell lymphoma History of lung cancer status post wedge resection Coronary artery disease status post stents 4 Hypokalemia- resolved Plan: continue on heart healthy diet continue on Plavix Continue IV antibiotics Monitor H&H and for overt GI bleed, H/H stablre GI prophylaxis DVT prophylaxis, on heparin SQ Monitor electrolytes and replete as necessary surgical follow-up ostomy care case reviewed and discussed with attending <Lakisha Casiano V - Last Filed: 07/11/17 23:40> Objective - Vital Signs/Intake and Output Vital Signs (last 24 hours): Temp Pulse Resp BP Pulse Ox 98.1 F 76 18 121/72 97 07/11/17 10:00 07/11/17 17:37 07/11/17 10:00 07/11/17 17:37 07/11/17 10:00 - Medications Medications: Current Medications Acetaminophen (Tylenol 325mg Tab) 650 mg PO Q4H PRN; Protocol PRN Reason: Pain, Mild (1-3) Last Admin: 07/05/17 08:20 Dose: 650 mg Aspirin (Ecotrin) 81 mg PO 0800 [facility] PRN Reason: Protocol Last Admin: 07/11/17 07:57 Dose: 81 mg Bacitracin (Bacitracin) 0 gm TOP TID [facility] PRN Reason: Protocol Last Admin: 07/11/17 17:37 Dose: 1 applic Clopidogrel Bisulfate (Plavix) 75 mg PO DAILY [facility] PRN Reason: Protocol Last Admin: 07/11/17 10:47 Dose: 75 mg Furosemide (Lasix) 20 mg PO 0630 [facility] PRN Reason: Protocol Last Admin: 07/11/17 06:01 Dose: 20 mg Heparin Sodium (Porcine) (Heparin) 5,000 units SC Q8 [facility] PRN Reason: Protocol Last Admin: 07/11/17 21:54 Dose: 5,000 units Home Med (Home Med) 1 unit PO HS [facility] PRN Reason: Protocol Last Admin: 07/11/17 21:54 Dose: 1 unit Insulin Human Regular (Humulin R Low) 0 units SC ACHS [facility] PRN Reason: Protocol Last Admin: 07/11/17 22:21 Dose: Not Given Levalbuterol HCl (Xopenex) 0.63 mg IH 0800,2000 [facility] PRN Reason: Protocol Last Admin: 07/11/17 21:00 Dose: 0.63 mg Metoprolol Tartrate (Lopressor) 12.5 mg PO 0800,1800 [facility] PRN Reason: Protocol Last Admin: 07/11/17 17:37 Dose: 12.5 mg Montelukast Sodium (Singulair) 10 mg PO HS [facility] PRN Reason: Protocol Last Admin: 07/11/17 21:54 Dose: 10 mg Ranolazine Er [ (Ranexa] 500 Mg) 500 mg PO BID [facility] Last Admin: 07/11/17 17:38 Dose: 500 mg Nortriptyline HCl (Pamelor) 10 mg PO DAILY [facility] PRN Reason: Protocol Last Admin: 07/11/17 10:46 Dose: 10 mg Ondansetron HCl (Zofran Inj) 4 mg IVP Q4H PRN; Protocol PRN Reason: Nausea/Vomiting Oxybutynin Chloride (Ditropan Tab) 5 mg PO HS [facility] PRN Reason: Protocol Last Admin: 07/11/17 21:54 Dose: 5 mg Pantoprazole Sodium (Protonix Ec Tab) 40 mg PO 0630 [facility] PRN Reason: Protocol Last Admin: 07/11/17 06:01 Dose: 40 mg - Labs Labs: 07/08/17 06:45 07/08/17 06:45 Attending/Attestation - Attestation I have personally seen and examined this patient.: Yes I have fully participated in the care of the patient.: Yes I have reviewed all pertinent clinical information, including history, physical exam and plan: Yes Notes (Text): This is an addendum to GI progress report dictated by the Tailman.The patient was seen and examined earlier. Medical records, lab studies, imagings were reviewed. Last 24 hours events reviewed. Agreed with the above treatment plan as outlined in Tailman 's notes the with the addition of the following 07/11/17 23:39
--- NOTE | 2017-07-11 11:47 | CP.PCM.PN ---
Subjective - Date & Time of Evaluation Date of Evaluation: 07/11/17 Time of Evaluation: 09:00 - Subjective Subjective: PGY-1 Surgery Progress note for Dr. Pabon Patient seen and examined. No complaints at this time. Patient had half of his thierno removed yesterday and replaced with steri strips. Objective - Vital Signs/Intake and Output Vital Signs (last 24 hours): Temp Pulse Resp BP Pulse Ox 97.7 F 81 20 116/59 L 96 07/10/17 06:00 07/11/17 07:57 07/10/17 06:00 07/11/17 07:57 07/10/17 06:00 - Medications Medications: Current Medications Acetaminophen (Tylenol 325mg Tab) 650 mg PO Q4H PRN; Protocol PRN Reason: Pain, Mild (1-3) Last Admin: 07/05/17 08:20 Dose: 650 mg Alprazolam (Xanax) 0.25 mg PO BID PRN; Protocol PRN Reason: Anxiety Stop: 07/11/17 14:27 Aspirin (Ecotrin) 81 mg PO 0800 [facility] PRN Reason: Protocol Last Admin: 07/11/17 07:57 Dose: 81 mg Bacitracin (Bacitracin) 0 gm TOP TID [facility] PRN Reason: Protocol Last Admin: 07/11/17 10:46 Dose: 1 applic Clopidogrel Bisulfate (Plavix) 75 mg PO DAILY [facility] PRN Reason: Protocol Last Admin: 07/11/17 10:47 Dose: 75 mg Furosemide (Lasix) 20 mg PO 0630 [facility] PRN Reason: Protocol Last Admin: 07/11/17 06:01 Dose: 20 mg Heparin Sodium (Porcine) (Heparin) 5,000 units SC Q8 [facility] PRN Reason: Protocol Last Admin: 07/11/17 05:58 Dose: 5,000 units Home Med (Home Med) 1 unit PO HS [facility] PRN Reason: Protocol Last Admin: 07/10/17 21:20 Dose: 1 unit Insulin Human Regular (Humulin R Low) 0 units SC ACHS [facility] PRN Reason: Protocol Last Admin: 07/11/17 06:34 Dose: Not Given Levalbuterol HCl (Xopenex) 0.63 mg IH 0800,2000 [facility] PRN Reason: Protocol Last Admin: 07/11/17 07:10 Dose: 0.63 mg Metoprolol Tartrate (Lopressor) 12.5 mg PO 0800,1800 [facility] PRN Reason: Protocol Last Admin: 07/11/17 07:57 Dose: 12.5 mg Montelukast Sodium (Singulair) 10 mg PO HS [facility] PRN Reason: Protocol Last Admin: 07/10/17 21:19 Dose: 10 mg Ranolazine Er [ (Ranexa] 500 Mg) 500 mg PO BID [facility] Last Admin: 07/11/17 10:47 Dose: 500 mg Nortriptyline HCl (Pamelor) 10 mg PO DAILY [facility] PRN Reason: Protocol Last Admin: 07/11/17 10:46 Dose: 10 mg Ondansetron HCl (Zofran Inj) 4 mg IVP Q4H PRN; Protocol PRN Reason: Nausea/Vomiting Oxybutynin Chloride (Ditropan Tab) 5 mg PO HS [facility] PRN Reason: Protocol Last Admin: 07/10/17 21:19 Dose: 5 mg Pantoprazole Sodium (Protonix Ec Tab) 40 mg PO 0630 [facility] PRN Reason: Protocol Last Admin: 07/11/17 06:01 Dose: 40 mg - Labs Labs: 07/08/17 06:45 07/08/17 06:45 - Additional Findings Additional findings: - Constitutional Appears: No Acute Distress - Head Exam Head Exam: ATRAUMATIC, NORMOCEPHALIC - Eye Exam Eye Exam: EOMI, Normal appearance - ENT Exam ENT Exam: Mucous Membranes Moist - Respiratory Exam Respiratory Exam: NORMAL BREATHING PATTERN. absent: Respiratory Distress - Cardiovascular Exam Cardiovascular Exam: +S1, +S2 - GI/Abdominal Exam GI & Abdominal Exam: Soft, Normal Bowel Sounds. absent: Tenderness Additional comments: Midline incision healing. Alternation of thierno and steri strips along midline incision without surrounding erythema or drainage Stoma in place - Skin Skin Exam: Dry, Warm Assessment and Plan - Assessment and Plan (Free Text) Assessment: This is a 77 year old male with perforated viscous secondary to diverticulitis. S/P Rob's POD # 11. Plan: Perforated sigmoid colon s/p Rob's procedure POD #11 Topical betadine application to incision site daily ID following, off of antibiotics Continue PT OOB to chair Half of the thierno were removed yesterday and replaced with steri strips Alternating thierno and steri strips until office follow-up Follow up in the office after 1 week for removal of the rest of the thierno Discussed with Dr. mC Hernandez PGY-1
--- NOTE | 2017-07-11 14:00 | CP.PCM.PN ---
Subjective - Date & Time of Evaluation Date of Evaluation: 07/11/17 Time of Evaluation: 11:10 - Subjective Subjective: Patient is comfortable, abdominal pain is improving, no fevers, no diarrhea, eating better, getting better with physical therapy. Objective - Vital Signs/Intake and Output Vital Signs (last 24 hours): Temp Pulse Resp BP Pulse Ox 97.7 F 81 20 116/59 L 96 07/10/17 06:00 07/11/17 07:57 07/10/17 06:00 07/11/17 07:57 07/10/17 06:00 - Medications Medications: Current Medications Acetaminophen (Tylenol 325mg Tab) 650 mg PO Q4H PRN; Protocol PRN Reason: Pain, Mild (1-3) Last Admin: 07/05/17 08:20 Dose: 650 mg Alprazolam (Xanax) 0.25 mg PO BID PRN; Protocol PRN Reason: Anxiety Stop: 07/11/17 14:27 Aspirin (Ecotrin) 81 mg PO 0800 ALEX PRN Reason: Protocol Last Admin: 07/11/17 07:57 Dose: 81 mg Bacitracin (Bacitracin) 0 gm TOP TID ALEX PRN Reason: Protocol Last Admin: 07/10/17 17:56 Dose: 1 applic Clopidogrel Bisulfate (Plavix) 75 mg PO DAILY ALEX PRN Reason: Protocol Last Admin: 07/10/17 10:57 Dose: 75 mg Furosemide (Lasix) 20 mg PO 0630 ALEX PRN Reason: Protocol Last Admin: 07/11/17 06:01 Dose: 20 mg Heparin Sodium (Porcine) (Heparin) 5,000 units SC Q8 ALEX PRN Reason: Protocol Last Admin: 07/11/17 05:58 Dose: 5,000 units Home Med (Home Med) 1 unit PO HS ALEX PRN Reason: Protocol Last Admin: 07/10/17 21:20 Dose: 1 unit Insulin Human Regular (Humulin R Low) 0 units SC ACHS ALEX PRN Reason: Protocol Last Admin: 07/11/17 06:34 Dose: Not Given Levalbuterol HCl (Xopenex) 0.63 mg IH 0800,2000 ALEX PRN Reason: Protocol Last Admin: 07/11/17 07:10 Dose: 0.63 mg Metoprolol Tartrate (Lopressor) 12.5 mg PO 0800,1800 ALEX PRN Reason: Protocol Last Admin: 07/11/17 07:57 Dose: 12.5 mg Montelukast Sodium (Singulair) 10 mg PO HS ALEX PRN Reason: Protocol Last Admin: 07/10/17 21:19 Dose: 10 mg Ranolazine Er [ (Ranexa] 500 Mg) 500 mg PO BID [facility] Last Admin: 07/10/17 17:48 Dose: 500 mg Nortriptyline HCl (Pamelor) 10 mg PO DAILY [facility] PRN Reason: Protocol Last Admin: 07/10/17 10:57 Dose: 10 mg Ondansetron HCl (Zofran Inj) 4 mg IVP Q4H PRN; Protocol PRN Reason: Nausea/Vomiting Oxybutynin Chloride (Ditropan Tab) 5 mg PO HS ALEX PRN Reason: Protocol Last Admin: 07/10/17 21:19 Dose: 5 mg Pantoprazole Sodium (Protonix Ec Tab) 40 mg PO 0630 [facility] PRN Reason: Protocol Last Admin: 07/11/17 06:01 Dose: 40 mg - Labs Labs: 07/08/17 06:45 07/08/17 06:45 - Constitutional Appears: Non-toxic, Chronically Ill - Head Exam Head Exam: NORMAL INSPECTION - Neck Exam Neck Exam: absent: Meningismus - Respiratory Exam Respiratory Exam: Decreased Breath Sounds - Cardiovascular Exam Cardiovascular Exam: +S1, +S2 - GI/Abdominal Exam GI & Abdominal Exam: Soft. absent: Tenderness Additional comments: left colostomy in place Assessment and Plan - Assessment and Plan (Free Text) Plan: Assessment S/P severe sepsis S/P acute renal failure S/P ventilator-dependent respiratory failure due to acute perforated sigmoid colon with associated diverticulitis S/ P exploratory laparotomy, sigmoidectomy and colostomy history of sepsis due to acute bronchitis, with systemic viral illness history of UTI with E. 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
[2017-07-11 15:26] VITALS: RESP 18
--- NOTE | 2017-07-11 15:36 | PN ---
DATE: 07/11/2017 PULMONARY PROGRESS NOTE REFERRING PHYSICIAN: Ted Santoyo MD SUBJECTIVE: He is out of bed to chair, participating therapy. Night was unremarkable, tolerated CPAP well. No headache. No rhinitis. No cough. No nausea. No vomiting. Abdominal pain is better. Colostomy working well. No dysuria. No leg pain or leg swelling. OBJECTIVE: GENERAL: In no acute distress. VITAL SIGNS: Temperature is 98, heart rate 81, respiratory is 20, blood pressure 116/59, pulse ox 96% room air. HEENT: Moist mucous membrane. Crowded airway. NECK: Supple. No JVD. LUNGS: Have a fair airflow with rhonchi. HEART: S1, S2. ABDOMEN: Soft. Incision site looks okay. Colostomy working well. EXTREMITIES: No edema. NEUROLOGIC: Awake and follows simple command. MEDICATIONS: He is on bacitracin ointment to affected area three times a day, Ditropan 5 mg at bedtime, Ecotrin 81 mg daily, heparin 5000 units subcu every 8 hours, insulin coverage, Lasix 20 mg daily, metoprolol tartrate 12.5 mg twice a day, nortriptyline 10 mg daily, Plavix 75 mg daily, Protonix 40 mg daily, Ranexa 500 mg twice a day, Singulair 10 mg daily, Tylenol p.r.n., Xanax 0.25 mg twice a day p.r.n., Xopenex inhaled twice a day, Zofran p.r.n. basis. LABORATORY DATA: Reviewed, noted blood sugar this morning 192. IMPRESSION AND PLAN: Status post visceral perforation requiring laparotomy and colostomy, chronic obstructive lung disease, history of lung cancer requiring wedge resection in the remote past, mantle cell lymphoma, been on chemotherapy in the past, sleep apnea syndrome, resolving pneumonia, ADL dysfunction. Pulmonary point of view, he is doing okay. Continue current continuous positive airway pressure with whole face mask, bronchodilator, gastric prophylaxis, deep venous thrombosis prophylaxis, fall precaution. Infectious Disease, Oncology followup. Thank you and we will follow with you Thanh Duffy MD [facility] # [id number]
[2017-07-11] MEDS: SILODOSIN 8 MG PO SCH (21:54)
[2017-07-12] MEDS: Pantoprazole 40 mg EC Tab PO SCH (05:58)
[2017-07-12] MEDS: Insulin Reg-LOW-Coverage SC SCH ×4 (06:44→22:05)
[2017-07-12] MEDS: Levalbuterol 0.63 MG/3 ML Inhal Soln UD IH SCH ×2 (07:13→19:48)
[2017-07-12] MEDS: Bacitracin Ointment 30 GM TUBE TOP SCH ×3 (09:52→17:42)
[2017-07-12] MEDS: RANOLAZINE 500 MG PO SCH ×2 (09:53→17:43)
--- NOTE | 2017-07-12 10:07 | CP.PCM.PN ---
Subjective - Date & Time of Evaluation Date of Evaluation: 07/12/17 Time of Evaluation: 06:50 - Subjective Subjective: Sleeping easily awaken, comfortable, no distress, denies chest pain, denies shortness of breath Reason for consult: Continuity of care in TCU, cardiac follow up, status post explor lap for perforated viscus, Rob's procedure with colostomy. History of coronary artery disease with multiple stents,hypertension. Seen and examined by me and Dr. Holbrook Objective - Vital Signs/Intake and Output Vital Signs (last 24 hours): Temp Pulse Resp BP Pulse Ox 98.1 F 89 18 109/65 97 07/11/17 10:00 07/12/17 08:47 07/11/17 10:00 07/12/17 08:47 07/11/17 10:00 - Medications Medications: Current Medications Acetaminophen (Tylenol 325mg Tab) 650 mg PO Q4H PRN; Protocol PRN Reason: Pain, Mild (1-3) Last Admin: 07/05/17 08:20 Dose: 650 mg Aspirin (Ecotrin) 81 mg PO 0800 ALEX PRN Reason: Protocol Last Admin: 07/12/17 08:47 Dose: 81 mg Bacitracin (Bacitracin) 0 gm TOP TID ALEX PRN Reason: Protocol Last Admin: 07/12/17 09:52 Dose: 1 applic Clopidogrel Bisulfate (Plavix) 75 mg PO DAILY ALEX PRN Reason: Protocol Last Admin: 07/12/17 09:52 Dose: 75 mg Furosemide (Lasix) 20 mg PO 0630 ALEX PRN Reason: Protocol Last Admin: 07/12/17 05:58 Dose: 20 mg Heparin Sodium (Porcine) (Heparin) 5,000 units SC Q8 ALEX PRN Reason: Protocol Last Admin: 07/12/17 05:58 Dose: 5,000 units Home Med (Home Med) 1 unit PO HS ALEX PRN Reason: Protocol Last Admin: 07/11/17 21:54 Dose: 1 unit Insulin Human Regular (Humulin R Low) 0 units SC ACHS ALEX PRN Reason: Protocol Last Admin: 07/12/17 06:44 Dose: 1 units Levalbuterol HCl (Xopenex) 0.63 mg IH 0800,2000 ALEX PRN Reason: Protocol Last Admin: 07/12/17 07:13 Dose: 0.63 mg Metoprolol Tartrate (Lopressor) 12.5 mg PO 0800,1800 ALEX PRN Reason: Protocol Last Admin: 07/12/17 08:47 Dose: 12.5 mg Montelukast Sodium (Singulair) 10 mg PO HS ALEX PRN Reason: Protocol Last Admin: 07/11/17 21:54 Dose: 10 mg Ranolazine Er [ (Ranexa] 500 Mg) 500 mg PO BID [facility] Last Admin: 07/12/17 09:53 Dose: 500 mg Nortriptyline HCl (Pamelor) 10 mg PO DAILY [facility] PRN Reason: Protocol Last Admin: 07/12/17 09:52 Dose: 10 mg Ondansetron HCl (Zofran Inj) 4 mg IVP Q4H PRN; Protocol PRN Reason: Nausea/Vomiting Oxybutynin Chloride (Ditropan Tab) 5 mg PO HS ALEX PRN Reason: Protocol Last Admin: 07/11/17 21:54 Dose: 5 mg Pantoprazole Sodium (Protonix Ec Tab) 40 mg PO 0630 [facility] PRN Reason: Protocol Last Admin: 07/12/17 05:58 Dose: 40 mg - Labs Labs: 07/08/17 06:45 07/08/17 06:45 - Constitutional Appears: No Acute Distress - Head Exam Head Exam: NORMOCEPHALIC - Eye Exam Pupil Exam: NORMAL ACCOMODATION - ENT Exam ENT Exam: Mucous Membranes Moist - Respiratory Exam Respiratory Exam: Decreased Breath Sounds, Clear to Ausculation Bilateral, NORMAL BREATHING PATTERN - Cardiovascular Exam Cardiovascular Exam: +S1, +S2 Additional comments: right subclavian villa cath - GI/Abdominal Exam GI & Abdominal Exam: Soft, Normal Bowel Sounds Additional comments: abdominal incision with thierno and steristrip intact, colostomy bag intact - Exam Additional comments: urinal,continent - Extremities Exam Extremities Exam: Normal Capillary Refill - Neurological Exam Neurological Exam: Alert, Awake, Oriented x3 - Psychiatric Exam Psychiatric exam: Normal Affect, Normal Mood - Skin Skin Exam: Intact, Normal Color, Warm Assessment and Plan - Assessment and Plan (Free Text) Assessment: A 77 year old who came into the ER for severe abdominal pain. work up showed perforated viscus and underwent explor lap and Rob's procedure with colostomy. Transferred to ICU immediate post op intubated. History of coronary artery disease with multiple stents,mantle cell lymphoma, lung cancer, post wedge resection, hypertension,transferred to TCU for reconditioning. Plan: Physical therapy in progress Colostomy care teaching in progress Doing well postoperatively Cardiac status stable Discharge planning Continue current treatment Continue current medications Will follow up Plan and treatment discussed with Dr. Holbrook
--- NOTE | 2017-07-12 12:17 | CP.PCM.PN ---
Subjective - Date & Time of Evaluation Date of Evaluation: 07/12/17 Time of Evaluation: 10:20 - Subjective Subjective: No fevers, not in distress, comfortably walking around his room. Objective - Vital Signs/Intake and Output Vital Signs (last 24 hours): Temp Pulse Resp BP Pulse Ox 98.1 F 76 18 109/65 97 07/11/17 10:00 07/11/17 17:37 07/11/17 10:00 07/12/17 05:58 07/11/17 10:00 - Medications Medications: Current Medications Acetaminophen (Tylenol 325mg Tab) 650 mg PO Q4H PRN; Protocol PRN Reason: Pain, Mild (1-3) Last Admin: 07/05/17 08:20 Dose: 650 mg Aspirin (Ecotrin) 81 mg PO 0800 ALEX PRN Reason: Protocol Last Admin: 07/11/17 07:57 Dose: 81 mg Bacitracin (Bacitracin) 0 gm TOP TID ALEX PRN Reason: Protocol Last Admin: 07/11/17 17:37 Dose: 1 applic Clopidogrel Bisulfate (Plavix) 75 mg PO DAILY ALEX PRN Reason: Protocol Last Admin: 07/11/17 10:47 Dose: 75 mg Furosemide (Lasix) 20 mg PO 0630 ALEX PRN Reason: Protocol Last Admin: 07/12/17 05:58 Dose: 20 mg Heparin Sodium (Porcine) (Heparin) 5,000 units SC Q8 ALEX PRN Reason: Protocol Last Admin: 07/12/17 05:58 Dose: 5,000 units Home Med (Home Med) 1 unit PO HS ALEX PRN Reason: Protocol Last Admin: 07/11/17 21:54 Dose: 1 unit Insulin Human Regular (Humulin R Low) 0 units SC ACHS ALEX PRN Reason: Protocol Last Admin: 07/11/17 22:21 Dose: Not Given Levalbuterol HCl (Xopenex) 0.63 mg IH 0800,2000 ALEX PRN Reason: Protocol Last Admin: 07/11/17 21:00 Dose: 0.63 mg Metoprolol Tartrate (Lopressor) 12.5 mg PO 0800,1800 ALEX PRN Reason: Protocol Last Admin: 07/11/17 17:37 Dose: 12.5 mg Montelukast Sodium (Singulair) 10 mg PO HS ALEX PRN Reason: Protocol Last Admin: 07/11/17 21:54 Dose: 10 mg Ranolazine Er [ (Ranexa] 500 Mg) 500 mg PO BID [facility] Last Admin: 07/11/17 17:38 Dose: 500 mg Nortriptyline HCl (Pamelor) 10 mg PO DAILY [facility] PRN Reason: Protocol Last Admin: 07/11/17 10:46 Dose: 10 mg Ondansetron HCl (Zofran Inj) 4 mg IVP Q4H PRN; Protocol PRN Reason: Nausea/Vomiting Oxybutynin Chloride (Ditropan Tab) 5 mg PO HS ALEX PRN Reason: Protocol Last Admin: 07/11/17 21:54 Dose: 5 mg Pantoprazole Sodium (Protonix Ec Tab) 40 mg PO 0630 [facility] PRN Reason: Protocol Last Admin: 07/12/17 05:58 Dose: 40 mg - Labs Labs: 07/08/17 06:45 07/08/17 06:45 - Constitutional Appears: Non-toxic, Chronically Ill - Head Exam Head Exam: NORMAL INSPECTION - Neck Exam Neck Exam: absent: Meningismus - Respiratory Exam Respiratory Exam: Decreased Breath Sounds - Cardiovascular Exam Cardiovascular Exam: +S1, +S2 - GI/Abdominal Exam GI & Abdominal Exam: Soft. absent: Tenderness Additional comments: left colostomy in place Assessment and Plan - Assessment and Plan (Free Text) Plan: Assessment S/P severe sepsis S/P acute renal failure S/P ventilator-dependent respiratory failure due to acute perforated sigmoid colon with associated diverticulitis S/ P exploratory laparotomy, sigmoidectomy and colostomy history of sepsis due to acute bronchitis, with systemic viral illness history of UTI with E. 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
--- NOTE | 2017-07-12 14:50 | PN ---
DATE: 07/12/2017 PULMONARY PROGRESS NOTE REFERRING PHYSICIAN: Ted Santoyo MD. SUBJECTIVE: The patient is participating in therapy. Night was unremarkable. Tolerating CPAP well. No headache. No rhinitis. No nausea. No abdominal pain. Incision site is okay. Colostomy working well. No leg pain or leg swelling. OBJECTIVE: GENERAL: In no acute distress. VITAL SIGNS: Temperature is 98, heart rate is 89, respiratory rate is 20, pulse ox is 97, blood pressure 121/72. HEENT: Moist mucous membranes. Small oral cavity. Crowded airway. NECK: Supple. No JVD. LUNGS: Have a fair airflow with rhonchi. HEART: S1 and S2. ABDOMEN: Positive bowel sound. Midline surgical scar, healing well. Colostomy bag working well. EXTREMITIES: There is no edema. NEUROLOGICAL: Awake, alert. Follows simple command. MEDICATIONS: He is on bacitracin ointment three times a day, Ditropan 5 mg at bedtime, Ecotrin 81 mg daily, heparin 5000 units subcu every 8 hours, Lasix is at 20 mg daily, metoprolol tartrate 12.5 mg twice a day, nortriptyline 10 mg daily, Plavix 75 mg daily, Protonix 40 mg daily, Ranexa twice a day, Singulair 10 mg daily, Tylenol p.r.n. basis, Xopenex inhaled twice a day, Zofran p.r.n. basis. LABORATORY DATA: Shows blood sugar this morning of 190. IMPRESSION AND PLAN: Status post visceral perforation requiring laparotomy and colostomy, chronic obstructive lung disease, history of lung cancer requiring wedge resection in the remote past, mantle cell lymphoma, been on chemotherapy, sleep apnea syndrome, resolving pneumonia, activities of daily living dysfunction. Pulmonary point of view, doing okay. Continue bronchodilator. Keep head at 45 degrees. Encourage continuous positive airway pressure use. Gastric prophylaxis, deep venous thrombosis prophylaxis. Fall precaution. Thank you and we will follow with you. Thanh Duffy MD
[2017-07-12] MEDS: SILODOSIN 8 MG PO SCH (21:35)
--- NOTE | 2017-07-12 23:41 | PN ---
DATE: 07/12/2017 This is [facility] visit on TCU. For Dr. Myers. SUBJECTIVE: The patient is a [id number]-old male seen sitting up in a chair reporting that he is practicing caring for his colostomy with assistance of the hospital personal here on TCU. Denying any pain. Appearing to be in no acute distress. The patient is now reconditioned on TCU with plan to discharge home tomorrow if he is stable. Known by Dr. Myers for treating for stage IV mantle cell lymphoma, now recently admitted for a perforated diverticulum with Milli procedure. His colostomy is now slowly improving. PHYSICAL EXAMINATION: VITAL SIGNS: Temperature 98.2, pulse 85, respirations 18, blood pressure 120/71, pulse ox is 94%. HEENT: Unremarkable. NECK: Supple. HEART: Regular rate. Occasional ectopic beats. LUNGS: Rare rhonchi. ABDOMEN: Soft, with viable colostomy with midline surgical scar. No signs of infection. EXTREMITIES: No edema. SKIN: Warm and dry. NEUROLOGIC: Awake, alert and oriented. LABORATORY DATA: The patient's labs were done 4 days prior as per TCU protocol with essentially normal values with fingerstick blood sugars continuing, hemoglobin then was 10.5, hematocrit 31.9. Most recent fingerstick blood sugar was 136. ASSESSMENT: The assessment for this patient is that of perforated viscus status post Milli procedure with colostomy, deconditioning, mantle cell lymphoma stage IV, chronic obstructive pulmonary disease, atherosclerotic cardiovascular disease, diabetes mellitus. PLAN: The plan for this patient is to continue his present medical regimen, he is off antibiotics as per Dr. Marshall with discharge home tomorrow if he is stable with maximum home assist. Ted Santoyo MD
[2017-07-13] MEDS: Pantoprazole 40 mg EC Tab PO SCH (05:47)
[2017-07-13 05:49] VITALS: BP 125/66
[2017-07-13] MEDS: Insulin Reg-LOW-Coverage SC SCH ×2 (06:35→13:47)
[2017-07-13] MEDS: Levalbuterol 0.63 MG/3 ML Inhal Soln UD IH SCH (07:29)
[2017-07-13 08:10] VITALS: PULSE 84; TEMP 98.3; O2SAT 96
--- NOTE | 2017-07-13 08:16 | CP.PCM.PN ---
Subjective - Date & Time of Evaluation Date of Evaluation: 07/13/17 Time of Evaluation: 07:00 - Subjective Subjective: Awake, comfortable, no distress, denies chest pain, denies shortness of breath Reason for consult: Continuity of care in TCU, cardiac follow up, status post explor lap for perforated viscus, Rob's procedure with colostomy. History of coronary artery disease with multiple stents,hypertension. Seen and examined by me and Dr. Holbrook Objective - Vital Signs/Intake and Output Vital Signs (last 24 hours): Temp Pulse Resp BP Pulse Ox 98.3 F 84 18 125/66 96 07/13/17 08:09 07/13/17 08:09 07/13/17 08:09 07/13/17 08:09 07/13/17 08:09 - Medications Medications: Current Medications Acetaminophen (Tylenol 325mg Tab) 650 mg PO Q4H PRN; Protocol PRN Reason: Pain, Mild (1-3) Last Admin: 07/05/17 08:20 Dose: 650 mg Aspirin (Ecotrin) 81 mg PO 0800 ALEX PRN Reason: Protocol Last Admin: 07/12/17 08:47 Dose: 81 mg Bacitracin (Bacitracin) 0 gm TOP TID ALEX PRN Reason: Protocol Last Admin: 07/12/17 17:42 Dose: 1 applic Clopidogrel Bisulfate (Plavix) 75 mg PO DAILY ALEX PRN Reason: Protocol Last Admin: 07/12/17 09:52 Dose: 75 mg Furosemide (Lasix) 20 mg PO 0630 ALEX PRN Reason: Protocol Last Admin: 07/13/17 05:47 Dose: 20 mg Home Med (Home Med) 1 unit PO HS ALEX PRN Reason: Protocol Last Admin: 07/12/17 21:35 Dose: 1 unit Insulin Human Regular (Humulin R Low) 0 units SC ACHS ALEX PRN Reason: Protocol Last Admin: 07/13/17 06:35 Dose: Not Given Levalbuterol HCl (Xopenex) 0.63 mg IH 0800,2000 ALEX PRN Reason: Protocol Last Admin: 07/13/17 07:29 Dose: 0.63 mg Metoprolol Tartrate (Lopressor) 12.5 mg PO 0800,1800 ALEX PRN Reason: Protocol Last Admin: 07/12/17 17:42 Dose: 12.5 mg Montelukast Sodium (Singulair) 10 mg PO HS ALEX PRN Reason: Protocol Last Admin: 07/12/17 21:35 Dose: 10 mg Ranolazine Er [ (Ranexa] 500 Mg) 500 mg PO BID [facility] Last Admin: 07/12/17 17:43 Dose: 500 mg Nortriptyline HCl (Pamelor) 10 mg PO DAILY ALEX PRN Reason: Protocol Last Admin: 07/12/17 09:52 Dose: 10 mg Ondansetron HCl (Zofran Inj) 4 mg IVP Q4H PRN; Protocol PRN Reason: Nausea/Vomiting Oxybutynin Chloride (Ditropan Tab) 5 mg PO HS ALEX PRN Reason: Protocol Last Admin: 07/12/17 21:33 Dose: 5 mg Pantoprazole Sodium (Protonix Ec Tab) 40 mg PO 0630 [facility] PRN Reason: Protocol Last Admin: 07/13/17 05:47 Dose: 40 mg - Labs Labs: 07/08/17 06:45 07/08/17 06:45 - Constitutional Appears: No Acute Distress - Eye Exam Eye Exam: Normal appearance - ENT Exam ENT Exam: Mucous Membranes Moist - Respiratory Exam Respiratory Exam: Clear to Ausculation Bilateral, NORMAL BREATHING PATTERN - Cardiovascular Exam Cardiovascular Exam: +S1, +S2 - GI/Abdominal Exam Additional comments: abdominal incision intact with thierno and steristrips colostomy - Exam Additional comments: continent - Extremities Exam Extremities Exam: Normal Capillary Refill - Neurological Exam Neurological Exam: Alert, Awake, Oriented x3 - Psychiatric Exam Psychiatric exam: Normal Affect, Normal Mood - Skin Skin Exam: Intact, Normal Color, Warm Assessment and Plan - Assessment and Plan (Free Text) Assessment: A 77 year old who came into the ER for severe abdominal pain. work up showed perforated viscus and underwent explor lap and Rob's procedure with colostomy. Transferred to ICU immediate post op intubated. History of coronary artery disease with multiple stents,mantle cell lymphoma, lung cancer, post wedge resection, hypertension,transferred to TCU for reconditioning. Plan: Doing well, overall status Physical therapy in progress Colostomy care teaching in progress Cardiac status stable Discharge planning Continue current treatment Continue current medications Will follow up Plan and treatment discussed with Dr. Holbrook
[2017-07-13] MEDS: Bacitracin Ointment 30 GM TUBE TOP SCH ×2 (09:29→13:47)
[2017-07-13] MEDS: RANOLAZINE 500 MG PO SCH (09:30)
--- NOTE | 2017-07-13 09:33 | CP.PCM.PN ---
Subjective - Date & Time of Evaluation Date of Evaluation: 07/13/17 Time of Evaluation: 09:31 - Subjective Subjective: PGY-2 GI progress note Patient seen and examined at the bedside in TCU. The chart was review. Patient tolerating oral intake. He reports good output from colostomy, no overt GI bleed. Patient with no complaints. Denies nausea, vomiting. Mild abd tenderness improved with medication. Patient states that he will be going home today. He states that he has learned how to take care of his ostomy. Objective - Vital Signs/Intake and Output Vital Signs (last 24 hours): Temp Pulse Resp BP Pulse Ox 98.3 F 84 18 125/66 96 07/13/17 08:09 07/13/17 08:09 07/13/17 08:09 07/13/17 08:26 07/13/17 08:09 - Medications Medications: Current Medications Acetaminophen (Tylenol 325mg Tab) 650 mg PO Q4H PRN; Protocol PRN Reason: Pain, Mild (1-3) Last Admin: 07/05/17 08:20 Dose: 650 mg Aspirin (Ecotrin) 81 mg PO 0800 ALEX PRN Reason: Protocol Last Admin: 07/13/17 08:26 Dose: 81 mg Bacitracin (Bacitracin) 0 gm TOP TID [facility] PRN Reason: Protocol Last Admin: 07/12/17 17:42 Dose: 1 applic Clopidogrel Bisulfate (Plavix) 75 mg PO DAILY [facility] PRN Reason: Protocol Last Admin: 07/12/17 09:52 Dose: 75 mg Furosemide (Lasix) 20 mg PO 0630 [facility] PRN Reason: Protocol Last Admin: 07/13/17 05:47 Dose: 20 mg Home Med (Home Med) 1 unit PO HS ALEX PRN Reason: Protocol Last Admin: 07/12/17 21:35 Dose: 1 unit Insulin Human Regular (Humulin R Low) 0 units SC ACHS [facility]LEX PRN Reason: Protocol Last Admin: 07/13/17 06:35 Dose: Not Given Levalbuterol HCl (Xopenex) 0.63 mg IH 0800,2000 [facility] PRN Reason: Protocol Last Admin: 07/13/17 07:29 Dose: 0.63 mg Metoprolol Tartrate (Lopressor) 12.5 mg PO 0800,1800 [facility] PRN Reason: Protocol Last Admin: 07/13/17 08:26 Dose: 12.5 mg Montelukast Sodium (Singulair) 10 mg PO HS ALEX PRN Reason: Protocol Last Admin: 07/12/17 21:35 Dose: 10 mg Ranolazine Er [ (Ranexa] 500 Mg) 500 mg PO BID [facility] Last Admin: 07/12/17 17:43 Dose: 500 mg Nortriptyline HCl (Pamelor) 10 mg PO DAILY [facility]LEX PRN Reason: Protocol Last Admin: 07/12/17 09:52 Dose: 10 mg Ondansetron HCl (Zofran Inj) 4 mg IVP Q4H PRN; Protocol PRN Reason: Nausea/Vomiting Oxybutynin Chloride (Ditropan Tab) 5 mg PO HS ALEX PRN Reason: Protocol Last Admin: 07/12/17 21:33 Dose: 5 mg Pantoprazole Sodium (Protonix Ec Tab) 40 mg PO 0630 ALEX PRN Reason: Protocol Last Admin: 07/13/17 05:47 Dose: 40 mg - Labs Labs: 07/08/17 06:45 07/08/17 06:45 - Constitutional Appears: Well, No Acute Distress - Head Exam Head Exam: ATRAUMATIC, NORMOCEPHALIC - Eye Exam Eye Exam: EOMI, Normal appearance - ENT Exam ENT Exam: Mucous Membranes Moist - Respiratory Exam Respiratory Exam: NORMAL BREATHING PATTERN. absent: Accessory Muscle Use, Respiratory Distress - GI/Abdominal Exam GI & Abdominal Exam: Soft, Tenderness. 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 Acute abdomen status post CT scan found to have free air, likely perforated diverticulitis History of stage IV mantle cell lymphoma History of lung cancer status post wedge resection Coronary artery disease status post stents 4 Hypokalemia- resolved Plan: continue on heart healthy diet continue on Plavix antibiotics per ID GI prophylaxis DVT prophylaxis, on heparin SQ ostomy care case reviewed and discussed with attending
--- NOTE | 2017-07-13 11:47 | CP.PCM.PN ---
Subjective - Date & Time of Evaluation Date of Evaluation: 07/13/17 Time of Evaluation: 10:45 - Subjective Subjective: Eating well, doing physical therapy well, no nausea, no abdominal pain, no fevers. Objective - Vital Signs/Intake and Output Vital Signs (last 24 hours): Temp Pulse Resp BP Pulse Ox 98.3 F 84 18 125/66 96 07/13/17 08:09 07/13/17 08:09 07/13/17 08:09 07/13/17 08:26 07/13/17 08:09 - Medications Medications: Current Medications Acetaminophen (Tylenol 325mg Tab) 650 mg PO Q4H PRN; Protocol PRN Reason: Pain, Mild (1-3) Last Admin: 07/05/17 08:20 Dose: 650 mg Aspirin (Ecotrin) 81 mg PO 0800 [facility] PRN Reason: Protocol Last Admin: 07/13/17 08:26 Dose: 81 mg Bacitracin (Bacitracin) 0 gm TOP TID ALEX PRN Reason: Protocol Last Admin: 07/12/17 17:42 Dose: 1 applic Clopidogrel Bisulfate (Plavix) 75 mg PO DAILY ALEX PRN Reason: Protocol Last Admin: 07/12/17 09:52 Dose: 75 mg Furosemide (Lasix) 20 mg PO 0630 ALEX PRN Reason: Protocol Last Admin: 07/13/17 05:47 Dose: 20 mg Home Med (Home Med) 1 unit PO HS ALEX PRN Reason: Protocol Last Admin: 07/12/17 21:35 Dose: 1 unit Insulin Human Regular (Humulin R Low) 0 units SC ACHS ALEX PRN Reason: Protocol Last Admin: 07/13/17 06:35 Dose: Not Given Levalbuterol HCl (Xopenex) 0.63 mg IH 0800,2000 ALEX PRN Reason: Protocol Last Admin: 07/13/17 07:29 Dose: 0.63 mg Metoprolol Tartrate (Lopressor) 12.5 mg PO 0800,1800 ALEX PRN Reason: Protocol Last Admin: 07/13/17 08:26 Dose: 12.5 mg Montelukast Sodium (Singulair) 10 mg PO HS ALEX PRN Reason: Protocol Last Admin: 07/12/17 21:35 Dose: 10 mg Ranolazine Er [ (Ranexa] 500 Mg) 500 mg PO BID [facility] Last Admin: 07/12/17 17:43 Dose: 500 mg Nortriptyline HCl (Pamelor) 10 mg PO DAILY ALEX PRN Reason: Protocol Last Admin: 07/12/17 09:52 Dose: 10 mg Ondansetron HCl (Zofran Inj) 4 mg IVP Q4H PRN; Protocol PRN Reason: Nausea/Vomiting Oxybutynin Chloride (Ditropan Tab) 5 mg PO HS ALEX PRN Reason: Protocol Last Admin: 07/12/17 21:33 Dose: 5 mg Pantoprazole Sodium (Protonix Ec Tab) 40 mg PO 0630 [facility] PRN Reason: Protocol Last Admin: 07/13/17 05:47 Dose: 40 mg - Labs Labs: 07/08/17 06:45 07/08/17 06:45 - Constitutional Appears: Non-toxic, Chronically Ill - Head Exam Head Exam: NORMAL INSPECTION - ENT Exam ENT Exam: Mucous Membranes Moist - Neck Exam Neck Exam: absent: Meningismus - Respiratory Exam Respiratory Exam: Decreased Breath Sounds Additional comments: right anterior chest wall port-a-cath in place - Cardiovascular Exam Cardiovascular Exam: +S1, +S2 - GI/Abdominal Exam GI & Abdominal Exam: Soft. absent: Tenderness Additional comments: left sided colostomy in place Assessment and Plan - Assessment and Plan (Free Text) Plan: Assessment S/P severe sepsis S/P acute renal failure S/P ventilator-dependent respiratory failure due to acute perforated sigmoid colon with associated diverticulitis S/ P exploratory laparotomy, sigmoidectomy and colostomy history of sepsis due to acute bronchitis, with systemic viral illness history of UTI with E. 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 - S /P removal; now with new right anterior chest wall port-a-cath mantle cell lymphoma on chemotherapy coronary artery disease benign prostatic hyperplasia dyslipidemia history of urinary tract infection Plan will continue to monitor clinically off antibiotics while the patient is in the hospital since he is at risk for hospital-acquired infections
--- NOTE | 2017-07-13 15:38 | CP.PCM.DIS ---
Provider - Provider Date of Admission: 07/04/17 14:15 Attending physician: Ted Santoyo MD Time Spent in preparation of Discharge (in minutes): 45 Hospital Course - Lab Results Lab Results: Most Recent Lab Values WBC 6.1 10^3/ul (4.5-11.0) 07/08/17 06:45 RBC 3.68 10^6/uL (3.5-6.1) 07/08/17 06:45 Hgb 10.5 g/dL (14.0-18.0) L 07/08/17 06:45 Hct 31.9 % (42.0-52.0) L 07/08/17 06:45 MCV 86.7 fl (80.0-105.0) 07/08/17 06:45 MCH 28.5 pg (25.0-35.0) 07/08/17 06:45 MCHC 32.9 g/dl (31.0-37.0) 07/08/17 06:45 RDW 14.1 % (11.5-14.5) 07/08/17 06:45 Plt Count 199 10^3/uL (120.0-450.0) 07/08/17 06:45 MPV 9.6 fl (7.0-11.0) 07/08/17 06:45 Gran % 62.7 % (50.0-68.0) 07/08/17 06:45 Lymph % (Auto) 24.3 % (22.0-35.0) 07/08/17 06:45 Weber % (Auto) 7.7 % (1.0-6.0) H 07/08/17 06:45 Eos % (Auto) 4.8 % (1.5-5.0) 07/08/17 06:45 Baso % (Auto) 0.5 % (0.0-3.0) 07/08/17 06:45 Gran # 3.82 (1.4-6.5) 07/08/17 06:45 Lymph # (Auto) 1.5 (1.2-3.4) 07/08/17 06:45 Weber # (Auto) 0.5 (0.1-0.6) 07/08/17 06:45 Eos # (Auto) 0.3 (0.0-0.7) 07/08/17 06:45 Baso # (Auto) 0.03 K/mm3 (0.0-2.0) 07/08/17 06:45 Sodium 139 mmol/L (132-148) 07/08/17 06:45 Potassium 4.1 mmol/L (3.6-5.0) 07/08/17 06:45 Chloride 100 mmol/L (98-107) 07/08/17 06:45 Carbon Dioxide 30 mmol/L (21-33) 07/08/17 06:45 Anion Gap 13 (10-20) 07/08/17 06:45 BUN 17 mg/dL (7-21) 07/08/17 06:45 Creatinine 0.9 mg/dl (0.8-1.5) 07/08/17 06:45 Est GFR ( Amer) > 60 07/08/17 06:45 Est GFR (Non-Af Amer) > 60 07/08/17 06:45 POC Glucose (mg/dL) 162 mg/dL (65-110) H 07/13/17 11:42 Random Glucose 138 mg/dL (70-110) H 07/08/17 06:45 Calcium 8.4 mg/dL (8.4-10.5) 07/08/17 06:45 Phosphorus 3.6 mg/dL (2.5-4.5) 07/08/17 06:45 Magnesium 1.9 mg/dL (1.7-2.2) 07/08/17 06:45 Total Bilirubin 1.0 mg/dL (0.2-1.3) 07/08/17 06:45 AST 50 U/L (17-59) 07/08/17 06:45 ALT 51 U/L (7-56) 07/08/17 06:45 Alkaline Phosphatase 132 U/L (38-126) H D 07/08/17 06:45 Total Protein 6.2 g/dL (5.8-8.3) 07/08/17 06:45 Albumin 3.2 g/dL (3.0-4.8) 07/08/17 06:45 Globulin 3.0 gm/dL 07/08/17 06:45 Albumin/Globulin Ratio 1.1 (1.1-1.8) 07/08/17 06:45 - Hospital Course Hospital Course: 77 Male history of stage IV mantle cell lymphoma that is quiescence, lung cancer s/p wedge resection, hypoglobulinemia receiving treatment, CAD s/p stent placementx4, diabetes, HTN, COPD who presented with an acute abdomen due to perforated sigmoid diverticulitis, s/p status post emergency exploratory laparotomy with Rob's procedure, complicated with hypoxemic respiratory failure patient was subsequently transferred to ICU immediate post op intubated. Patient recovered and then was transferred to TCU for reconditioning. Acute abdomen status post CT scan found to have free air, likely perforated diverticulitis s/p Rob's procedure with colostomy. Continue to train colostomy changes, continue HHD, cardiology Dr Hill following reccs. Continue PT, OOB. Dr. Tati deleon, pulm, continue counselling and encourage CPAP use at night. continue to monitor clinically off antibiotics while the patient is in the hospital since he is at risk for hospital-acquired infections Discharge Exam - Head Exam Head Exam: ATRAUMATIC, NORMOCEPHALIC - Eye Exam Eye Exam: EOMI, Normal appearance, PERRL Pupil Exam: NORMAL ACCOMODATION, PERRL - Respiratory Exam Respiratory Exam: Clear to PA & Lateral, NORMAL BREATHING PATTERN, UNREMARKABLE - Cardiovascular Exam Cardiovascular Exam: REGULAR RHYTHM, +S1, +S2 - GI/Abdominal Exam GI & Abdominal Exam: Normal Bowel Sounds, Soft. absent: Tenderness Additional comments: colostomy noted pink moiste - Neurological Exam Neurological exam: Alert, CN II-XII Intact, Oriented x3, Reflexes Normal - Psychiatric Exam Psychiatric exam: Normal Affect, Normal Mood - Skin Skin Exam: Dry, Intact, Normal Color, Warm Discharge Plan - Follow Up Plan Condition: GOOD Disposition: HOME/ ROUTINE Instructions: Lung Cancer, How to Care for Your Ostomy, Adult, Diverticulitis ( DC), High Blood Pressure (DC), Diabetes Type 2 (DC), Coronary Heart Disease (DC) Additional Instructions: 1. Pt counselled on colostomy care and prescriptions provided by surgical team along with instructions 2. Medications reconciled and refills offered 3. Pt to follow up with Surgery as per Dr Berrios and team 4. Pt to fu with PMD within 1 week.
--- NOTE | 2017-07-13 20:07 | PN ---
DATE: 07/13/2017 PULMONARY PROGRESS NOTE REFERRING PHYSICIAN: Ted Santoyo MD SUBJECTIVE: The patient is lying in the bed, head at 45 degrees. Night was unremarkable. No headache, no rhinitis. No nausea, no vomiting, and no diarrhea. Colostomy working well. No leg pain or leg swelling. OBJECTIVE: GENERAL: In no acute distress. VITAL SIGNS: Temperature is 98, heart rate 84, respiratory rate is 18, blood pressure 125/66, pulse ox 96% on room air. HEENT: Moist mucous membranes. Small oral cavity. NECK: Supple. No JVD. Nasal bridge ulcer is improved. LUNGS: Fair airflow with rhonchi. HEART: S1 and S2. ABDOMEN: Soft. Incision site looks okay. Still has some tiherno. Left colostomy bag looks okay. EXTREMITIES: There is no edema. NEUROLOGIC: Awake, alert, follows simple command. MEDICATIONS: He is on bacitracin ointment to affected area three times a day, Ditropan 5 mg at bedtime, Ecotrin 81 mg daily, insulin coverage, Lasix 20 mg daily, metoprolol tartrate 12.5 mg twice a day, nortriptyline 10 mg daily, Plavix 75 mg daily Protonix 40 mg daily, Ranexa 500 mg b.i.d., Singulair 10 mg at bedtime, Tylenol p.r.n., Xopenex inhaled twice a day, Zofran p.r.n. basis. LABORATORY DATA: Reviewed. Blood sugar this morning 162. IMPRESSION AND PLAN: Status post visceral perforation requiring laparotomy and colostomy, chronic obstructive lung disease, history of lung cancer requiring wedge resection in the remote past, mantle cell lymphoma and has been on chemotherapy in the past, sleep apnea syndrome, resolved pneumonia, activities of daily living dysfunction. Pulmonary point of view, doing okay. The patient no longer using CPAP. We will advise to keep head at 45 degrees. Careful with sedation. Watch for sleep apnea. Bronchodilator, gastric prophylaxis, DVT prophylaxis. Continue therapy. We will recommend as outpatient upon discharge, he should get PFT and attended sleep study. Thank you and we will follow with you. Thanh Duffy MD [facility] # [id number]
== END 2017-07-13 17:05 | disposition home or self-care (01) | DRG 391 ==
LOC: TRCU 14:15
PROVIDERS: ADMIT Family Medicine; ATTEND Family Medicine
PROC: F07Z9FZ Gait Training/Functional Ambulation Treatment using Assistive, Adaptive, Supportive or Protective Equipment (ICD-10-PCS; principal; 2017-07-05)
PROC: F07M6ZZ Therapeutic Exercise Treatment of Musculoskeletal System - Whole Body (ICD-10-PCS; 2017-07-05)
PROC: F08Z1ZZ Dressing Techniques Treatment (ICD-10-PCS; 2017-07-05)
PROC: F08Z2ZZ Grooming/Personal Hygiene Treatment (ICD-10-PCS; 2017-07-05)
DX: K57.20 Diverticulitis of large intestine with perforation and abscess without bleeding (principal); J95.821 Acute postprocedural respiratory failure; C83.10 Mantle cell lymphoma, unspecified site; I42.9 Cardiomyopathy, unspecified; E09.9 Drug or chemical induced diabetes mellitus without complications; E78.5 Hyperlipidemia, unspecified; E87.6 Hypokalemia; G47.33 Obstructive sleep apnea (adult) (pediatric); H91.90 Unspecified hearing loss, unspecified ear; I10 Essential (primary) hypertension; I25.10 Atherosclerotic heart disease of native coronary artery without angina pectoris; J44.9 Chronic obstructive pulmonary disease, unspecified; N40.0 Benign prostatic hyperplasia without lower urinary tract symptoms; Z53.20 Procedure and treatment not carried out because of patient's decision for unspecified reasons; Z85.118 Personal history of other malignant neoplasm of bronchus and lung; Z86.19 Personal history of other infectious and parasitic diseases; Z87.01 Personal history of pneumonia (recurrent); Z87.440 Personal history of urinary (tract) infections; Z88.1 Allergy status to other antibiotic agents; Z92.21 Personal history of antineoplastic chemotherapy; Z93.3 Colostomy status; Z95.5 Presence of coronary angioplasty implant and graft; Z90.49 Acquired absence of other specified parts of digestive tract; Z90.79 Acquired absence of other genital organ(s); Z98.0 Intestinal bypass and anastomosis status

== ENCOUNTER 2017-12-07 07:19 | Day surgery (SDC) | payer MEDICARE, OTHER ==
[2017-11-30 13:06] VITALS: BMI 26.9
[2017-12-07 07:59] LABS: BASO # 0.02 K/mm3 (0.0-2.0); BASO % 0.3 % (0.0-3.0); EOS # 0.3 (0.0-0.7); EOS % 3.9 % (1.5-5.0); GRAN # 4.21 (1.4-6.5); GRAN % 61.2 % (50.0-68.0); HEMOGLOBIN 11.7 g/dL (14.0-18.0); LYMPH # 1.9 (1.2-3.4); LYMPH % 28.1 % (22.0-35.0); MEAN CELL VOLUME 85.7 fl (80.0-105.0); MEAN CORPUSCULAR HEMOGLOBIN 27.5 pg (25.0-35.0); MEAN CORPUSCULAR HGB CONC 32.1 g/dl (31.0-37.0); MEAN PLATELET VOLUME 10.1 fl (7.0-11.0); MONO # 0.5 (0.1-0.6); MONO % 6.5 % (1.0-6.0); RBC 4.26 10^6/uL (3.5-6.1); RED CELL DISTRIBUTION WIDTH 15.4 % (11.5-14.5); WHITE BLOOD COUNT 6.9 10^3/ul (4.5-11.0)
[2017-12-07] MEDS ORDERED: Iodixanol 320 MG/ML 100 ML BOTTLE IV ONE (08:00)
[2017-12-07] MEDS ORDERED: Lidocaine 2% PF (10 ml) Amp ONE (08:00)
[2017-12-07] MEDS ORDERED: Iodixanol 320 MG/ML 200 ML BOTTLE IV ONE (08:00)
[2017-12-07] MEDS ORDERED: Iohexol 350mgl/ml 50 ML ONE (08:00)
[2017-12-07] MEDS ORDERED: Phenylephrine 10 mg/ml Inj ONE (08:00)
[2017-12-07] MEDS ORDERED: Verapamil 2 ML ONE (08:01)
[2017-12-07] MEDS ORDERED: Heparin 2,000 ML IV ONE (08:01)
[2017-12-07] MEDS ORDERED: Nitroglycerin 50mg in D5W 50 MG/250 ML BOTTLE IV ONE (08:01)
[2017-12-07] MEDS ORDERED: Midazolam 2 MG/2 ML VIAL ONE ×2 (08:02→08:27)
[2017-12-07 08:27] LABS: INR 0.97; PARTIAL THROMBOPLASTIN TIME 19.9 Seconds (25.1-36.5); PROTHROMBIN TIME 11.1 SECONDS (9.4-12.5)
[2017-12-07] MEDS ORDERED: Adenosine 90 mg/30mL IV ONE (08:36)
[2017-12-07 09:59] VITALS: TEMP 97.7
[2017-12-07] MEDS ORDERED: Bacitracin 500 Units/gm Oint Foilpak UD ONE (12:36)
[2017-12-07 13:13] VITALS: RESP 18
[2017-12-07 18:05] VITALS: BP 138/80; PULSE 64; O2SAT 98
--- NOTE | 2017-12-13 19:51 | CARDCATH ---
PROCEDURE DATE: 12/07/2017 INDICATIONS: Mr. Marques is a 77-year-old male with past medical history significant for hypertension, diabetes, hyperlipidemia, malignancy, status post chemoradiation, in remission, who had a diverting ileostomy for small bowel obstruction and is being planned for possible reversal and underwent a stress test prior to his surgery for preoperative cardiovascular risk stratification, which showed evidence of ischemia, secondary symptoms of typical chest pain after exercise exertion. The patient was brought to the rn cardiac cath for evaluation of underlying CAD for preop risk assessment. PROCEDURES PERFORMED: Left heart catheterization with selective left and right coronary angiogram via left radial artery approach, 6-Azeri left radial arterial access, wrist band for hemostasis. ANGIOGRAPHIC FINDINGS: Left main large-sized vessel, bifurcates into left anterior descending and left circumflex coronary artery. LAD has a proximal and mid stent which is patent with [id number] in-stent restenosis of 30% to 40%. This LAD has moderate 30% stenosis. Left circumflex runs in the AV groove has a proximal 65% stenosis, small-sized vessel gives off a small obtuse marginal branch. Right coronary artery large sized vessel, has a proximal to mid moderate-sized 75% to 80% stenosis. Right PDA and PLV nonobstructive. Distal PLV has 65% stenosis. IMPRESSION: Moderate right coronary artery and posterior left ventricular stenosis. Mild in-stent restenosis in the left anterior descending, patent left anterior descending stent. RECOMMENDATIONS: The patient can proceed with his planned reversal of his colostomy with low risk for perioperative cardiac event. Continue aggressive medical management, risk factor modification. The patient is to hold his antiplatelet therapy 5 to 7 days before his surgical intervention. Yaniv Perez MD cc: Mark Pabon MD
== END 2017-12-07 18:15 | disposition home or self-care (01) ==
LOC: CATH 07:19
PROVIDERS: ATTEND Internal Medicine Interventional Cardiology
DX: I25.10 Atherosclerotic heart disease of native coronary artery without angina pectoris (principal); I10 Essential (primary) hypertension; R94.39 Abnormal result of other cardiovascular function study; Z95.5 Presence of coronary angioplasty implant and graft; E78.5 Hyperlipidemia, unspecified; E11.9 Type 2 diabetes mellitus without complications; Z85.72 Personal history of non-Hodgkin lymphomas; Z92.3 Personal history of irradiation; Z92.21 Personal history of antineoplastic chemotherapy

== ENCOUNTER 2017-12-30 14:34 | Inpatient (IN) | payer MEDICARE, OTHER ==
--- NOTE | 2017-12-30 15:20 | ED PDOC ---
Arrival/HPI - General Chief Complaint: Abdominal Pain Time Seen by Provider: 12/30/17 15:00 Historian: Patient - History of Present Illness Narrative History of Present Illness (Text): 12/30/17 15:21 A 77 year old male, whose past medical history includes hypertension, CAD with cardiac stents, diverticulitis, hyperglycemia, post perfrorated sigmond colon- post exploratory lap sigmoidectomy,colostomypresents to the emergency department complaining of abdominal pain since this morning. Patient denies any fever, nausea, vomiting, diarrhea, or any other complaints at this time. Reports colostomy bag is draining. Past Medical History - Provider Review Nursing Documentation Reviewed: Yes - Past History Past History: Unable to Obtain - Infectious Disease Hx of Infectious Diseases: None - Tetanus Immunization Tetanus Immunization: Unknown - Cardiac Hx Pacemaker: No - Pulmonary Hx Respiratory Disorders: Yes Hx Pneumonia: Yes - Neurological Hx Paralysis: No - HEENT Hx HEENT Disorder: Yes Hx Cataracts: (h0h b/lhearing aid) - Renal Hx Renal Disorder: No - Endocrine/Metabolic Hx Diabetes Mellitus Type 2: Yes - Hematological/Oncological Hx Blood Transfusions: Yes Hx Blood Transfusion Reaction: No - Integumentary Hx Dermatological Disorder: No - Musculoskeletal/Rheumatological Hx Musculoskeletal Disorders: Yes - Gastrointestinal Hx Gastrointestinal Disorders: Yes (Post perfrorated sigmond colon-post exploratory lap sigmoidectomy,colostomy) Hx Colostomy: Yes - Genitourinary/Gynecological Hx Genitourinary Disorders: Yes Hx Prostate Problems: Yes (bph,prostectomy) - Psychiatric Hx Substance Use: No - Past Surgical History Past Surgical History: Unable to Obtain - Surgical History Hx Cardiac Catheterization: Yes (sents x4) Hx Musculoskeletal Surgery: Yes Hx Open Heart Surgery: Yes - Anesthesia Hx Anesthesia Reactions: No Hx Malignant Hyperthermia: No - Suicidal Assessment Feels Threatened In Home Enviroment: No Family/Social History - Physician Review Nursing Documentation Reviewed: Yes Family/Social History: No Known Family HX Smoking Status: Never Smoked Hx Alcohol Use: No Hx Substance Use: No Hx Substance Use Treatment: No Allergies/Home Meds Allergies/Adverse Reactions: Allergies azithromycin Allergy (Severe, Verified 12/30/17 14:48) ANGIOEDEMA erythromycin base Allergy (Severe, Verified 12/30/17 14:48) ANGIOEDEMA Penicillins Allergy (Severe, Verified 12/30/17 14:48) ANAPHYLAXIS cephalexin monohydrate [From Keflex] Allergy (Intermediate, Verified 12/30/17 14:48) RASH gabapentin Allergy (Intermediate, Verified 12/30/17 14:48) RASH pregabalin Allergy (Intermediate, Verified 12/30/17 14:48) RASH Sulfa (Sulfonamide Antibiotics) Allergy (Intermediate, Verified 12/30/17 14:48) RASH nitro paste Allergy (Intermediate, Uncoded 12/30/17 14:48) DIZZINESS/HYPOTENSION CAUSE HYPOTENSION Imbrovica Allergy (Uncoded 12/30/17 14:48) FEVER Home Medications: Home Meds Medication Instructions Recorded Confirmed RX: Ranolazine [Ranexa] 500 mg PO BID 06/03/16 12/30/17 Atorvastatin [Lipitor] 20 mg PO QPM 11/30/17 12/30/17 Ca/D3/Mag#11/Zinc/Security Site Supervisor/Andrés/Bor 1 tab PO DAILY 11/30/17 12/30/17 [Caltrate 600+D Plus Tablet] Ezetimibe [Zetia] 10 mg PO DAILY 11/30/17 12/30/17 Metformin HCl [Glucophage] 500 mg PO BID 11/30/17 12/30/17 RX: Magnesium Oxide [Mag-Ox] 400 mg PO DAILY 11/30/17 12/30/17 RX: Metoprolol Tartrate [Lopressor] 25 mg PO QAM 11/30/17 12/30/17 Silodosin [Rapaflo] 8 mg PO QPM 11/30/17 12/30/17 Furosemide [Lasix] 20 mg PO DAILY 12/04/17 12/30/17 Metoprolol Tartrate [Lopressor] 12.5 mg PO QPM 12/04/17 12/30/17 [place]-3/Dha/Epa/Fish Oil [Fish Oil 1 cap PO DAILY 12/04/17 12/30/17 500 mg Softgel] RX: Montelukast [Singulair] 10 mg PO QPM 12/04/17 12/30/17 Ezetimibe [Zetia] 10 mg PO DAILY 12/30/17 12/30/17 RX: metFORMIN [glucOPHAGE] 500 mg PO BID 12/30/17 12/30/17 Review of Systems - Physician Review All systems were reviewed & negative as marked: Yes - Review of Systems Constitutional: absent: Fevers Gastrointestinal: Abdominal Pain. absent: Diarrhea, Nausea, Vomiting Physical Exam Vital Signs Reviewed: Yes Vital Signs Temp Pulse Resp BP Pulse Ox 12/30/17 14:45 97.8 F 68 18 137/68 100 Temperature: Afebrile Blood Pressure: Normal Pulse: Regular Respiratory Rate: Normal Appearance: Positive for: Well-Appearing, Non-Toxic, Comfortable Pain Distress: None Mental Status: Positive for: Alert and Oriented X 3 - Systems Exam Head: Present: Atraumatic, Normocephalic Pupils: Present: PERRL Extroacular Muscles: Present: EOMI Conjunctiva: Present: Normal Mouth: Present: Dry Neck: Present: Normal Range of Motion Respiratory/Chest: Present: Clear to Auscultation, Good Air Exchange. No: Respiratory Distress, Accessory Muscle Use Cardiovascular: Present: Regular Rate and Rhythm, Normal S1, S2. No: Murmurs Abdomen: Present: Tenderness (non-focal), Other (colostomy bag in place) Back: Present: Normal Inspection Upper Extremity: Present: Normal Inspection. No: Cyanosis, Edema Lower Extremity: Present: Normal Inspection. No: Edema Neurological: Present: GCS=15, CN II-XII Intact, Speech Normal Skin: Present: Warm, Dry, Normal Color. No: Rashes Psychiatric: Present: Alert, Oriented x 3, Normal Insight, Normal Concentration Medical Decision Making ED Course and Treatment: 12/30/17 15:22 Impression: 77 year old male with abdominal pain. Physical exam shows non-focal tenderness, colostomy bag in place. Plan: -- EKG -- Chest X-ray -- Labs -- Urinalysis -- Reassess and disposition Prior Visits: Notes and results from previous visits were reviewed. Patient was last seen in the emergency department on 11/23/2017 for intermittent chest pressure. Patient was admitted. Progress Notes: 12/30/2017 15:30 Chest X-ray IMPRESSION: No active pulmonary disease. Dictator: Olivia Trujillo MD 12/30/17 17:45 case discusse valeria carvajal. requests admission. 01/01/18 11:25 case discusseed with pmd bedside accepts for admission - Lab Interpretations I have reviewed the lab results: Yes - RAD Interpretation Radiology Orders: 12/30/17 15:09 CHEST PORTABLE [RAD] Stat - Scribe Statement The provider has reviewed the documentation as recorded by the Tl Rhoades Provider Scribe Attestation: All medical record entries made by the Scribe were at my direction and personally dictated by me. I have reviewed the chart and agree that the record accurately reflects my personal performance of the history, physical exam, medical decision making, and the department course for this patient. I have also personally directed, reviewed, and agree with the discharge instructions and disposition. Disposition/Present on Arrival - Present on Arrival Any Indicators Present on Arrival: No History of DVT/PE: No History of Uncontrolled Diabetes: No Urinary Catheter: No History of Decub. Ulcer: No History Surgical Site Infection Following: None - Disposition Have Diagnosis and Disposition been Completed?: Yes Diagnosis: Intractable abdominal pain, Dehydration Disposition: HOSPITALIZED Disposition Time: 02:00 Patient Problems: Current Active Problems Problem Status Onset Dehydration Acute Intractable abdominal pain Acute Condition: STABLE
--- NOTE | 2017-12-30 15:33 | RAD ---
Date of service: 12/30/2017 HISTORY: Abdominal pain COMPARISON: 11/23/2017. FINDINGS: Right-sided central venous catheter terminates in the SVC. LUNGS: The lungs are well inflated and clear. There are surgical clips in the right hilum. PLEURA: No pleural effusions or pneumothorax. CARDIOVASCULAR: The heart is normal in size. Atherosclerotic aortic arch calcifications are present. OSSEOUS STRUCTURES: Within normal limits for the patient's age. VISUALIZED UPPER ABDOMEN: Normal. OTHER FINDINGS: There is chronic elevation of the right hemidiaphragm. IMPRESSION: No active pulmonary disease.
[2017-12-30 16:03] LABS: BASO # 0.03 K/mm3 (0.0-2.0); BASO % 0.6 % (0.0-3.0); EOS # 0.3 (0.0-0.7); EOS % 5.1 % (1.5-5.0); GRAN # 2.93 (1.4-6.5); GRAN % 54.9 % (50.0-68.0); HEMOGLOBIN 12.1 g/dL (14.0-18.0); LYMPH # 1.7 (1.2-3.4); LYMPH % 32.1 % (22.0-35.0); MEAN CELL VOLUME 87.9 fl (80.0-105.0); MEAN CORPUSCULAR HEMOGLOBIN 28.8 pg (25.0-35.0); MEAN CORPUSCULAR HGB CONC 32.8 g/dl (31.0-37.0); MEAN PLATELET VOLUME 10.4 fl (7.0-11.0); MONO # 0.4 (0.1-0.6); MONO % 7.3 % (1.0-6.0); RBC 4.2 10^6/uL (3.5-6.1); RED CELL DISTRIBUTION WIDTH 15.2 % (11.5-14.5); WHITE BLOOD COUNT 5.3 10^3/uL (4.5-11.0)
[2017-12-30 16:07] LABS: INR 1.01; PARTIAL THROMBOPLASTIN TIME 32.2 Seconds (25.1-36.5); PROTHROMBIN TIME 11.5 SECONDS (9.4-12.5)
[2017-12-30 16:12] LABS: ALB/GLOB RATIO 1.1 (1.1-1.8); ALT/SGPT 35 U/L (7-56); AMYLASE 47 U/L (35-125); AST/SGOT 39 U/L (17-59); BLOOD UREA NITROGEN 18 mg/dL (7-21); CALCIUM 9.2 mg/dL (8.4-10.5); GFR NON-AFRICAN AMERICAN 59; LIPASE 24 U/L (23-300)
[2017-12-30 16:21] LABS: TROPONIN I < 0.01 ng/mL
[2017-12-30 16:22] LABS: PH,URINE 6.5 (4.7-8.0); URINE BILIRUBIN NEGATIVE (NEGATIVE); URINE BLOOD NEGATIVE (NEGATIVE); URINE GLUCOSE (UA) NEGATIVE (NEGATIVE); URINE LEUKOCYTE ESTERASE NEGATIVE Leu/uL (NEGATIVE); URINE PROTEIN NEGATIVE mg/dL (<30 mg/dL); URINE UROBILINOGEN 0.2 E.U./dL (<1 E.U./dL)
[2017-12-30 16:32] LABS: URINE APPEARANCE CLEAR (CLEAR); URINE COLOR YELLOW (YELLOW)
[2017-12-30] MEDS ORDERED: RAPAFLO 8 MG PO SCH (18:00)
[2017-12-30] MEDS ORDERED: RANEXA 500 MG PO SCH (18:00)
[2017-12-30] MEDS: Sodium Chloride 0.9% 250 ML IV SCH ×2 (18:47→23:00)
[2017-12-30] MEDS: Levalbuterol 0.63 MG/3 ML Inhal Soln UD IH SCH (18:48)
[2017-12-30] MEDS ORDERED: Peg-Electrolyte Oral Soln 4L (Golytely) PO ONE (20:43)
[2017-12-30] MEDS ORDERED: Bisacodyl 5mg EC Tab PO ONE (20:45)
[2017-12-30 20:52] VITALS: BMI 27.1
[2017-12-30] MEDS: Insulin Reg-LOW-Coverage SC SCH (22:30)
--- NOTE | 2017-12-31 01:54 | HP ---
DATE OF EXAM: 12/30/2017 This is [facility]'s [facility] admission to the medical floor. For Dr. Myers. CHIEF COMPLAINT: Abdominal pain and dehydration. HISTORY OF PRESENT ILLNESS: Patient is a 77-year-old male admitted by the emergency room for severe abdominal pain developed this morning for which the patient was to be evaluated by Dr. Casiano, gastrointestinal curriculum consultant in the near future. With this, the patient reports he has had poor appetite with nausea, no solid food for approximately a day and a half with sips of clear liquids his only nourishment even though he is a diabetic. With this, the patient is known to have a colostomy after emergency surgery for a perforated diverticulum in the recent past. He also is known to suffer from mantle cell lymphoma for which he gets IV gammaglobulin periodically as per Dr. Myers's recommendation. He is also status post angioplasty for which he is on Plavix. ALLERGIES; FOR THIS PATIENT INCLUDE BIAXIN, ERYTHROMYCIN, Z-LAYTON, KEFLEX, PENICILLIN, GABAPENTIN, PREGABALIN, SULFA, NITROPASTE, AND IMBRUVICA. PRESENT MEDICAL REGIMEN: Includes Ranexa, Lipitor, Caltrate, Zetia, magnesium oxide, Glucophage, Lopressor, Rapaflo, Lasix, Singulair, and fish oil with Plavix having been discontinued. PAST MEDICAL HISTORY: Significant for stage IV mantle cell lymphoma, severe ASCVD status post multiple procedures, history of lung cancer in early stage status post resection 5 years prior with wedge resection, history of cardiac stenting, diabetes mellitus, hyperlipidemia, recurrent urinary tract infections, BPH, and COPD. The patient did have a ruptured diverticulum status post Milli's procedure with a colostomy earlier this year. FAMILY HISTORY AND SOCIAL HISTORY: He is non-ethanolic, nonsmoker. 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. REVIEW OF SYSTEMS: Twelve-point review of systems was done, which is negative with the question except for items mentioned in the history of present illness. OBJECTIVE PHYSICAL EXAMINATION: VITAL SIGNS: Temperature 97.8; pulse 68; respirations 18; blood pressure 137/68; and pulse ox 100%. HEENT: He has a subconjunctival hemorrhage on the right eye with no vision changes. He was unaware that this has occurred. Tongue is moist. NECK: Supple. HEART: Regular rate. LUNGS: Clear. ABDOMEN: Protuberant with a positive viable colostomy noted. EXTREMITIES: No edema. SKIN: Warm and dry. NEUROLOGIC: Awake and alert. LABORATORY DATA: Patient's labs were done. White blood cell count of 5.3, hemoglobin 12.1, hematocrit of 36.9, platelet count of 156,000 possibly heme concentrated as the patient has not been taking oral supplementation well recently. His chem metabolic panel however non-fasting glucose of 100 with an otherwise normal chem panel. INR of 1.01. Urinalysis is negative for sugar, blood, and protein. Patient had a chest x-ray done. It showed no active disease. ASSESSMENT: The assessment for this patient is that of abdominal pain, rule out obstruction, rule out other pathology dehydration with his labs possibly heme concentrated with anemic indices for which we will recheck after hydration, diabetes mellitus, atherosclerotic cardiovascular disease status post angioplasty, benign prostatic hypertrophy, hyperlipidemia, hypogammaglobulinemia, and chronic obstructive pulmonary disease again stage IV mantle cell lymphoma. PLAN: Plan for this patient is to be admitted to med-surg floor. We will hydrate with gastrointestinal consult with Dr. Casiano previously contacted Dr. Casiano and now will be seen on more urgent basis. We will give sips of clear liquids with some of his medication, sliding scale insulin with subcutaneous heparin being given for now. This is a complex patient with a comprehensive medically necessary and appropriate visit carried out in excess of 60 minutes with patient's questions answered to his satisfaction. Ted Satnoyo MD
[2017-12-31] MEDS: Sodium Chloride 0.9% 250 ML IV SCH (04:00)
[2017-12-31] MEDS ORDERED: Bisacodyl 5mg EC Tab PO ONE (05:30)
[2017-12-31 07:13] LABS: BASO # 0.04 K/mm3 (0.0-2.0); BASO % 0.8 % (0.0-3.0); EOS # 0.2 (0.0-0.7); EOS % 4.7 % (1.5-5.0); GRAN # 2.58 (1.4-6.5); HEMOGLOBIN 11.5 g/dL (14.0-18.0); LYMPH # 1.7 (1.2-3.4); LYMPH % 34.9 % (22.0-35.0); MEAN CELL VOLUME 86.8 fl (80.0-105.0); MEAN CORPUSCULAR HEMOGLOBIN 27.6 pg (25.0-35.0); MEAN CORPUSCULAR HGB CONC 31.9 g/dl (31.0-37.0); MEAN PLATELET VOLUME 9.7 fl (7.0-11.0); MONO # 0.3 (0.1-0.6); MONO % 6.6 % (1.0-6.0); RBC 4.16 10^6/uL (3.5-6.1); RED CELL DISTRIBUTION WIDTH 14.9 % (11.5-14.5); WHITE BLOOD COUNT 4.9 10^3/uL (4.5-11.0)
[2017-12-31] MEDS: Levalbuterol 0.63 MG/3 ML Inhal Soln UD IH SCH ×2 (08:15→20:07)
[2017-12-31] MEDS: Insulin Reg-LOW-Coverage SC SCH ×4 (08:54→22:36)
[2017-12-31] MEDS ORDERED: Sodium Chloride 0.9% 1,000 ML IV SCH ×2 (09:00→16:45)
[2017-12-31 09:01] LABS: BLOOD UREA NITROGEN 14 mg/dL (7-21); GFR NON-AFRICAN AMERICAN > 60
[2017-12-31 09:02] LABS: ALBUMIN 3.5 g/dL (3.0-4.8); ALT/SGPT 37 U/L (7-56); AST/SGOT 31 U/L (17-59); CALCIUM 8.9 mg/dL (8.4-10.5)
--- NOTE | 2017-12-31 10:11 | CARD ---
APPROVED REPORT Date of service: 12/30/2017 EKG Measurement Heart [id number] <Conclusion> Sinus bradycardia LVH by voltage Improved repolarization c/w ECG 11/23/17
[2017-12-31] MEDS ORDERED: Propofol 10 mg/ml Inj (20 ML) ONE (13:04)
[2017-12-31] MEDS ORDERED: ePHEDrine 50 mg/ml Inj ONE (13:37)
[2017-12-31] MEDS: RANEXA 500 MG PO SCH ×2 (15:53→17:28)
--- NOTE | 2017-12-31 15:57 | CP.PCM.PN ---
Subjective - Date & Time of Evaluation Date of Evaluation: 12/31/17 Time of Evaluation: 15:51 - Subjective Subjective: Hematology/Oncology Progress Note (Dr. Myers's Service) Patient seen and assessed at bedside in endoscopy holding. No acute events noted overnight. Patient reports that his abdominal pain has improved and that his colostomy bag has had normal drainage. Patient denies any further complaints at this time including fevers, chills, headache, chest pain, SOB, N/V/C, changes in urine output, skin changes or any numbness/tingling of any extremity. Objective - Vital Signs/Intake and Output Vital Signs (last 24 hours): Temp Pulse Resp BP Pulse Ox 97.3 F L 56 L 12 129/61 99 12/31/17 14:40 12/31/17 14:40 12/31/17 14:40 12/31/17 14:40 12/31/17 14:40 Intake and Output: 12/31/17 12/31/17 06:59 18:59 Intake Total 720 Output Total 4000 Balance -3280 - Medications Medications: Current Medications Acetaminophen (Tylenol 325mg Tab) 650 mg PO Q6H PRN PRN Reason: Fever >100.4 F Heparin Sodium (Porcine) (Heparin) 5,000 units SC Q12H [facility]; Protocol Last Admin: 12/31/17 07:00 Dose: Not Given Sodium Chloride (Sodium Chloride 0.9%) 250 mls @ 50 mls/hr IV .Q5H [facility] Last Admin: 12/31/17 04:00 Dose: Not Given Sodium Chloride (Sodium Chloride 0.9%) 1,000 mls @ 75 mls/hr IV .[id number] [facility] Stop: 12/31/17 17:01 Insulin Human Regular (Humulin R Low) 0 units SC ACHS [facility]; Protocol Last Admin: 12/31/17 11:03 Dose: Not Given Levalbuterol HCl (Xopenex) 0.63 mg IH Q12H [facility] Last Admin: 12/31/17 08:15 Dose: 0.63 mg Metoprolol Tartrate (Lopressor) 25 mg PO DAILY [facility] Last Admin: 12/31/17 09:41 Dose: 25 mg Metoprolol Tartrate (Lopressor) 12.5 mg PO QPM [facility] Last Admin: 12/30/17 18:47 Dose: 12.5 mg Montelukast Sodium (Singulair) 10 mg PO QPM [facility] Last Admin: 12/30/17 18:48 Dose: 10 mg Non-Formulary Medication (Rapaflo) 8 mg PO QPM [facility] Non-Formulary Medication (Ranexa) 500 mg PO BID [facility] Ondansetron HCl (Zofran Odt) 4 mg PO Q8H PRN PRN Reason: Nausea/Vomiting Oxybutynin Chloride (Ditropan Tab) 5 mg PO HS [facility] Last Admin: 12/30/17 22:30 Dose: 5 mg - Labs Labs: 12/31/17 06:45 12/31/17 06:45 PT 11.5 SECONDS (9.4-12.5) 12/30/17 15:50 INR 1.01 12/30/17 15:50 APTT 32.2 Seconds (25.1-36.5) 12/30/17 15:50 - Constitutional Appears: Non-toxic, No Acute Distress - Head Exam Head Exam: ATRAUMATIC, NORMOCEPHALIC - Eye Exam Eye Exam: EOMI - ENT Exam ENT Exam: Mucous Membranes Moist - Neck Exam Neck Exam: Full ROM - Respiratory Exam Respiratory Exam: Clear to Ausculation Bilateral, NORMAL BREATHING PATTERN. absent: Accessory Muscle Use, Decreased Breath Sounds, Rales, Rhonchi, Wheezes, Respiratory Distress - Cardiovascular Exam Cardiovascular Exam: REGULAR RHYTHM, RRR, +S1, +S2 - GI/Abdominal Exam GI & Abdominal Exam: Soft, Tenderness (Mild; Diffuse), Normal Bowel Sounds Additional comments: Colostomy bag in place with liquid brown drainage and no signs of clinical infection of surrounding soft tissues or stoma - Extremities Exam Extremities Exam: absent: Calf Tenderness - Neurological Exam Neurological Exam: Alert, Awake, Oriented x3 - Psychiatric Exam Psychiatric exam: Normal Affect, Normal Mood - Skin Skin Exam: Dry, Warm Assessment and Plan - Assessment and Plan (Free Text) Assessment: 77 year old male with a past medical history significant for stage IV mantle cell lymphoma (quiescence), lung cancer s/p wedge resection, hypoglobulinemia, CAD s/p stent placement, DM2, HTN, COPD, and perforated sigmoid diverticulitis s/p Milli procedure who presented with abdominal pain. Patient to undergo colonoscopy today (12/31) and colostomy reversal tomorrow (01/01). Plan: 1. Abdominal Pain -Colonoscopy results pending -Continue Zofran PRN for N/V -Continue Tylenol PRN for pain -Clear liquid diet and NPO after midnight for surgery tomorrow -NS at 75mls/hr -GI and Surgery consulted, all recommendations appreciated 2. History of CAD -Continue home Metoprolol as ordered -DAPT held in setting of surgery 3. History of COPD -Continue Xopenex -Continue Singulair -Continue supplemental oxygen 4. History of BPH -Continue Rapaflo -Continue Oxybutynin GI Prophylaxis DVT Prophylaxis Diet Code Status Patient seen and case discussed with attending, Dr. Myers. Mariusz Méndez PGY2
[2017-12-31] MEDS: RAPAFLO 8 MG PO SCH (17:27)
[2017-12-31] MEDS ORDERED: Magnesium Citrate Oral SOL (300 ml) PO ONE ×2 (19:55→22:15)
[2018-01-01 07:13] LABS: BASO # 0.02 K/mm3 (0.0-2.0); BASO % 0.5 % (0.0-3.0); EOS # 0.2 (0.0-0.7); EOS % 4.6 % (1.5-5.0); GRAN # 2.15 (1.4-6.5); GRAN % 54.7 % (50.0-68.0); HEMOGLOBIN 10.6 g/dL (14.0-18.0); LYMPH # 1.3 (1.2-3.4); LYMPH % 33.6 % (22.0-35.0); MEAN CELL VOLUME 86.7 fl (80.0-105.0); MEAN CORPUSCULAR HEMOGLOBIN 28.1 pg (25.0-35.0); MEAN CORPUSCULAR HGB CONC 32.4 g/dl (31.0-37.0); MEAN PLATELET VOLUME 9.7 fl (7.0-11.0); MONO # 0.3 (0.1-0.6); MONO % 6.6 % (1.0-6.0); RBC 3.77 10^6/uL (3.5-6.1); RED CELL DISTRIBUTION WIDTH 15.2 % (11.5-14.5); WHITE BLOOD COUNT 3.9 10^3/uL (4.5-11.0)
[2018-01-01 07:21] LABS: INR 1.06; PARTIAL THROMBOPLASTIN TIME 28.7 Seconds (25.1-36.5); PROTHROMBIN TIME 12.2 SECONDS (9.4-12.5)
[2018-01-01] MEDS ORDERED: Sodium Chloride 0.9% 10 ML IV ONE (07:28)
[2018-01-01] MEDS ORDERED: Bupivacaine 0.5% 50 ML IJ ONE (07:28)
[2018-01-01] MEDS: Levalbuterol 0.63 MG/3 ML Inhal Soln UD IH SCH ×2 (07:38→19:31)
[2018-01-01 07:41] LABS: ALB/GLOB RATIO 1.1 (1.1-1.8); ALBUMIN 3.2 g/dL (3.0-4.8); ALT/SGPT 37 U/L (7-56); AST/SGOT 23 U/L (17-59); BLOOD UREA NITROGEN 9 mg/dL (7-21); CALCIUM 8.2 mg/dL (8.4-10.5); GFR NON-AFRICAN AMERICAN > 60
[2018-01-01] MEDS ORDERED: Midazolam 2 MG/2 ML VIAL ONE (08:02)
[2018-01-01] MEDS ORDERED: Propofol 10 mg/ml Inj (20 ML) ONE (08:02)
[2018-01-01] MEDS ORDERED: Rocuronium 10 mg/ml (5 ml) ONE ×2 (08:05→10:59)
--- NOTE | 2018-01-01 08:44 | CP.PCM.PN ---
<Keyur Finney - Last Filed: 01/01/18 10:50> Subjective - Date & Time of Evaluation Date of Evaluation: 01/01/18 Time of Evaluation: 08:35 - Subjective Subjective: PGY-2 GI progress note for Dr Casiano. No acute events noted overnight. Patient had colonoscopy yesterday and to go for colostomy reversal today. Stated he was doing okay considering everything. Denied pain or discomfort. Colostomy bag in place draining fluid. Objective - Vital Signs/Intake and Output Vital Signs (last 24 hours): Temp Pulse Resp BP Pulse Ox 97.9 F 71 20 142/72 96 01/01/18 08:30 01/01/18 08:30 01/01/18 08:30 01/01/18 08:30 01/01/18 08:30 Intake and Output: 01/01/18 01/01/18 06:59 18:59 Intake Total 120 Output Total 800 Balance -680 - Medications Medications: Current Medications Acetaminophen (Tylenol 325mg Tab) 650 mg PO Q6H PRN PRN Reason: Fever >100.4 F Heparin Sodium (Porcine) (Heparin) 5,000 units SC Q12H [facility]; Protocol Last Admin: 12/31/17 17:34 Dose: Not Given Sodium Chloride (Sodium Chloride 0.9%) 1,000 mls @ 75 mls/hr IV .[id number] [facility] Last Admin: 12/31/17 17:29 Dose: 75 mls/hr Insulin Human Regular (Humulin R Low) 0 units SC ACHS [facility]; Protocol Last Admin: 12/31/17 22:36 Dose: Not Given Levalbuterol HCl (Xopenex) 0.63 mg IH Q12H [facility] Last Admin: 01/01/18 07:38 Dose: Not Given Metoprolol Tartrate (Lopressor) 25 mg PO DAILY [facility] Last Admin: 12/31/17 09:41 Dose: 25 mg Metoprolol Tartrate (Lopressor) 12.5 mg PO QPM [facility] Last Admin: 12/31/17 17:26 Dose: 12.5 mg Montelukast Sodium (Singulair) 10 mg PO QPM [facility] Last Admin: 12/31/17 17:26 Dose: 10 mg Non-Formulary Medication (Rapaflo) 8 mg PO QPM [facility] Last Admin: 12/31/17 17:27 Dose: 8 mg Non-Formulary Medication (Ranexa) 500 mg PO BID [facility] Last Admin: 12/31/17 17:28 Dose: 500 mg Ondansetron HCl (Zofran Odt) 4 mg PO Q8H PRN PRN Reason: Nausea/Vomiting Oxybutynin Chloride (Ditropan Tab) 5 mg PO HS [facility] Last Admin: 12/31/17 22:36 Dose: 5 mg - Labs Labs: 01/01/18 06:30 01/01/18 06:30 PT 12.2 SECONDS (9.4-12.5) 01/01/18 06:30 INR 1.06 01/01/18 06:30 APTT 28.7 Seconds (25.1-36.5) 01/01/18 06:30 - Additional Findings Additional findings: - Constitutional Appears: Non-toxic, No Acute Distress - Head Exam Head Exam: ATRAUMATIC, NORMOCEPHALIC - Eye Exam Eye Exam: EOMI - ENT Exam ENT Exam: Mucous Membranes Moist - Neck Exam Neck Exam: Full ROM - Respiratory Exam Respiratory Exam: Clear to Ausculation Bilateral, NORMAL BREATHING PATTERN. absent: Accessory Muscle Use, Decreased Breath Sounds, Rales, Rhonchi, Wheezes, Respiratory Distress - Cardiovascular Exam Cardiovascular Exam: REGULAR RHYTHM, RRR, +S1, +S2 - GI/Abdominal Exam GI & Abdominal Exam: Soft, Tenderness (Mild; Diffuse), Normal Bowel Sounds Additional comments: Colostomy bag in place with liquid brown drainage and no signs of clinical infection of surrounding soft tissues or stoma - Extremities Exam Extremities Exam: absent: Calf Tenderness - Neurological Exam Neurological Exam: Alert, Awake, Oriented x3 - Psychiatric Exam Psychiatric exam: Normal Affect, Normal Mood - Skin Skin Exam: Dry, Warm Assessment and Plan - Assessment and Plan (Free Text) Plan: 77 year old male with a past medical history significant for stage IV mantle cell lymphoma (quiescence), lung cancer s/p wedge resection, hypoglobulinemia, CAD s/p stent placement, DM2, HTN, COPD, and perforated sigmoid diverticulitis s/p Milli procedure who presented with abdominal pain: Abdominal Pain -s/p colonoscopy 12/31 * one 8mm polyp in cecum removed, diverticulosis in sigmoid colon and in descending colon, internal hemorrhoids, ileum normal, one 5mm polyp in rectum removed * await pathology results -s/p EGD 12/31 * normal examined duodenum, gastritis, esophagogastric landmarks identified -to go for colostomy reversal today (01/01) Seen and discussed with Dr Casiano <Lakisha Casiano V - Last Filed: 01/01/18 23:38> Objective - Vital Signs/Intake and Output Vital Signs (last 24 hours): Temp Pulse Resp BP Pulse Ox 97.8 F 95 H 14 117/47 L 100 01/01/18 15:00 01/01/18 18:01 01/01/18 15:00 01/01/18 18:01 01/01/18 18:01 Intake and Output: 01/01/18 01/02/18 18:59 06:59 Intake Total 1451 1 Output Total 360 Balance 1091 1 - Medications Medications: Current Medications Acetaminophen (Tylenol 325mg Tab) 650 mg PO Q6H PRN PRN Reason: Fever >100.4 F Heparin Sodium (Porcine) (Heparin) 5,000 units SC Q12H [facility]; Protocol Last Admin: 12/31/17 17:34 Dose: Not Given Hydromorphone HCl (Dilaudid) 0.5 mg IVP Q3 PRN PRN Reason: Arthritis Last Admin: 01/01/18 21:10 Dose: 0.5 mg Acetaminophen (Ofirmev) 1,000 mg in 100 mls @ 400 mls/hr IVPB Q6H [facility] Propofol (Diprivan) 1,000 mg in 100 mls @ 2.014 mls/hr IV .Q24H [facility]; Protocol PRN Reason: TITRATE PER MD ORDER Last Titration: 01/01/18 22:00 Dose: 15 mcg/kg/min, 6.042 mls/hr Sodium Chloride (Sodium Chloride 0.9%) 1,000 mls @ 75 mls/hr IV .[id number] [facility] Last Admin: 01/01/18 16:50 Dose: 75 mls/hr Vancomycin HCl (Vancomycin 1gm) 1 gm in 250 mls @ 167 mls/hr IVPB DAILY [facility]; Protocol Meropenem (Merrem Iv 1 Gm Premix) 1 gm in 50 mls @ 100 mls/hr IVPB Q8 [facility]; Protocol Stop: 01/10/18 22:01 Last Admin: 01/01/18 22:58 Dose: 100 mls/hr Vancomycin HCl (Vancomycin 1gm) 1 gm in 250 mls @ 167 mls/hr IVPB Q12 [facility]; Protocol Stop: 01/10/18 22:01 Last Admin: 01/01/18 23:00 Dose: 167 mls/hr Insulin Human Regular (Humulin R Low) 0 units SC ACHS [facility]; Protocol Last Admin: 01/01/18 17:14 Dose: 2 u Levalbuterol HCl (Xopenex) 0.63 mg IH Q12H [facility] Last Admin: 01/01/18 19:31 Dose: 0.63 mg Metoprolol Tartrate (Lopressor) 25 mg PO DAILY [facility] Last Admin: 12/31/17 09:41 Dose: 25 mg Metoprolol Tartrate (Lopressor) 12.5 mg PO QPM [facility] Last Admin: 12/31/17 17:26 Dose: 12.5 mg Montelukast Sodium (Singulair) 10 mg PO QPM [facility] Last Admin: 12/31/17 17:26 Dose: 10 mg Non-Formulary Medication (Rapaflo) 8 mg PO QPM [facility] Last Admin: 12/31/17 17:27 Dose: 8 mg Non-Formulary Medication (Ranexa) 500 mg PO BID [facility] Last Admin: 12/31/17 17:28 Dose: 500 mg Ondansetron HCl (Zofran Inj) 4 mg IVP ONCE PRN PRN Reason: Nausea/Vomiting Ondansetron HCl (Zofran Inj) 4 mg IVP Q4H PRN PRN Reason: Nausea/Vomiting Oxybutynin Chloride (Ditropan Tab) 5 mg PO HS [facility] Last Admin: 12/31/17 22:36 Dose: 5 mg - Labs Labs: 01/01/18 14:20 01/01/18 14:20 PT 12.2 SECONDS (9.4-12.5) 01/01/18 06:30 INR 1.06 01/01/18 06:30 APTT 28.7 Seconds (25.1-36.5) 01/01/18 06:30 Attending/Attestation - Attestation I have personally seen and examined this patient.: Yes I have fully participated in the care of the patient.: Yes I have reviewed all pertinent clinical information, including history, physical exam and plan: Yes Notes (Text): This is an addendum to GI followup report dictated by the Tru[employer] Officer. The patient was seen and evaluated earlier. Medical records, lab studies, imagings were reviewed. Last 24 hours events reviewed. Agreed with the above treatment plan as outlined in Truant Officer 's notes with the addition of the following Recent events noted Continue close ICU monitoring Post op as per surgery followup path 01/01/18 23:35
[2018-01-01] MEDS ORDERED: Phenylephrine 10 mg/ml Inj ONE (10:56)
[2018-01-01] MEDS ORDERED: ePHEDrine 50 mg/ml Inj ONE (10:56)
[2018-01-01] MEDS ORDERED: Glycopyrrolate 0.2 mg/ml (2ml vial) ONE (12:38)
[2018-01-01] MEDS ORDERED: Neostigmine Methylsulfate 3mg/3ml Syringe IV ONE (12:38)
[2018-01-01] MEDS ORDERED: HYDROmorphone 0.5 mg/0.5 ml ISec IVP PRN (12:43)
[2018-01-01] MEDS ORDERED: Lactated Ringer's 1,000 ML IV SCH (12:45)
--- NOTE | 2018-01-01 13:47 | PCM.SURG1 ---
Surgeon's Initial Post Op Note - Surgeon's Notes Surgeon: Dr. Pabon Managed Care Liaison: Dr. Harry PGY4, Dr. Ho PGY3 Type of Anesthesia: General Endo Pre-Operative Diagnosis: diverticulosis, colostomy Operative Findings: healthy rectal stump and proximal colon end. completely intact anastomotic rings, negative anastomotic leak test Post-Operative Diagnosis: same Operation Performed: exploratory laparotomy, reversal of colostomy, partial rectal stump resection with end to end anastomosis, extensive lysis of adhesions and mobilization of splenic flexure, partial omentectomy Specimen/Specimens Removed: omentum, partial rectal stump excision, anastomotic rings Estimated Blood Loss: EBL {In ML}: 500 Blood Products Given: PRBC (1 unit ) Drains Used: Jak Post-Op Condition: Good Date of Surgery/Procedure: 01/01/18 Time of Surgery/Procedure: 13:49
[2018-01-01] MEDS ORDERED: Vancomycin 1gm in NS 250ml 1 GM/250 ML BAG IVPB SCH (14:00)
[2018-01-01] MEDS ORDERED: Vancomycin 500 mg (Oral/Rectal USE) ONE (14:08)
[2018-01-01 14:27] LABS: BASO # 0.04 K/mm3 (0.0-2.0); BASO % 0.2 % (0.0-3.0); EOS # 0.2 (0.0-0.7); EOS % 0.6 % (1.5-5.0); GRAN # 19.27 (1.4-6.5); GRAN % 76.8 % (50.0-68.0); LYMPH # 3.9 (1.2-3.4); LYMPH % 15.7 % (22.0-35.0); MEAN CORPUSCULAR HEMOGLOBIN 28.7 pg (25.0-35.0); MEAN CORPUSCULAR HGB CONC 31.7 g/dl (31.0-37.0); MEAN PLATELET VOLUME 9.6 fl (7.0-11.0); MONO # 1.7 (0.1-0.6); MONO % 6.7 % (1.0-6.0); PLATELET COUNT 184 10^3/uL (120.0-450.0); RBC 4.18 10^6/uL (3.5-6.1); RED CELL DISTRIBUTION WIDTH 14.6 % (11.5-14.5)
--- NOTE | 2018-01-01 14:30 | RAD ---
Date of service: 01/01/2018 PROCEDURE: CHEST RADIOGRAPH, 1 VIEW HISTORY: post op NGT COMPARISON: None available. FINDINGS: LUNGS: Clear. PLEURA: No pneumothorax or pleural fluid seen. CARDIOVASCULAR: Normal. OSSEOUS STRUCTURES: No significant abnormalities. VISUALIZED UPPER ABDOMEN: Normal. OTHER FINDINGS: None. IMPRESSION: The tip of the nasogastric tube is seen beyond the GE junction. The side hole is above the diaphragm.
[2018-01-01] MEDS ORDERED: Naloxone HCl 2mg/2ml syr IVP ONE (14:33)
[2018-01-01] MEDS ORDERED: Naloxone 0.4 mg/ml Inj (Adult) ONE (14:34)
[2018-01-01 14:36] LABS: MEAN CELL VOLUME 90.4 fl (80.0-105.0); WHITE BLOOD COUNT 25.1 10^3/uL (4.5-11.0)
[2018-01-01 14:38] LABS: BLOOD UREA NITROGEN 10 mg/dL (7-21); CALCIUM 7.7 mg/dL (8.4-10.5); GFR NON-AFRICAN AMERICAN > 60
[2018-01-01] MEDS ORDERED: Vancomycin 1gm in NS 250ml IVPB ONE (14:40)
[2018-01-01] MEDS ORDERED: Sodium Chloride 0.9% 1,000 ML IV STA (14:44)
[2018-01-01 14:47] LABS: EOSINOPHIL 2 % (0.0-3.0); LYMPHOCYTE 17 % (22.0-35.0); METAMYELOCYTE 2 %; MONOCYTE 3 % (1.0-6.0); NEUTROPHIL 76 % (50.0-70.0); PLATELET ESTIMATE NORMAL (NORMAL)
--- NOTE | 2018-01-01 15:22 | CP.PCM.CON ---
History of Present Illness - History of Present Illness History of Present Illness: MICU CONSULT NOTE HPI Patient is 77yo male with PMhx of mantle cell lymphoma stage IV, Lung CA s/p wedge resection, CAD with stents, DM, HTN, COPD, perforated sigmoid diverticulitis s/p Milli procedure, s/p colostomy reversal today in the OR. Pt had an uneventful OR procedure, extubated in the OR. While in the PACU patient became less responsive, unarousable, went into respiratory arrest, GARBAGE TRUCK DRIVER called, patient intubated by anesthesia. Currently intubated, not sedated, opens eyes, but does not follow commands. PMHx mantle cell lymphoma stage IV, Lung CA s/p wedge resection, CAD with stents, DM, HTN, COPD, perforated sigmoid diverticulitis s/p Milli procedure, s/p colostomy reversal PSHx Rob procedure, colosctomy reversal, Lung wedge resection Meds as per EMR FHx NC Social intubated, cannot obtain Allergies Azithromycin, PCN, Keflex Review of Systems - Review of Systems Review of Systems: as per HPI Past Patient History - Infectious Disease Hx of Infectious Diseases: None - Tetanus Immunizations Tetanus Immunization: Unknown - Past Medical History & Family History Past Medical History?: Yes - Past Social History Smoking Status: Never Smoked - CARDIAC Hx Pacemaker: No - PULMONARY Hx Respiratory Disorders: Yes Hx Pneumonia: Yes - NEUROLOGICAL Hx Paralysis: No - HEENT Hx HEENT Problems: Yes Hx Cataracts: ([facility]) - RENAL Hx Chronic Kidney Disease: No - ENDOCRINE/METABOLIC Hx Diabetes Mellitus Type 2: Yes - HEMATOLOGICAL/ONCOLOGICAL Hx Blood Transfusions: Yes Hx Blood Transfusion Reaction: No - INTEGUMENTARY Hx Dermatological Problems: No - MUSCULOSKELETAL/RHEUMATOLOGICAL Hx Musculoskeletal Disorders: Yes - GASTROINTESTINAL Hx Gastrointestinal Disorders: Yes (Post perfrorated sigmond colon-post exploratory lap sigmoidectomy,colostomy) Hx Colostomy: Yes - GENITOURINARY/GYNECOLOGICAL Hx Genitourinary Disorders: Yes Hx Prostate Problems: Yes (bph,prostectomy) - PSYCHIATRIC Hx Substance Use: No - SURGICAL HISTORY Hx Cardiac Catheterization: Yes (sents x4) Hx Musculoskeletal Surgery: Yes Hx Open Heart Surgery: Yes - ANESTHESIA Hx Anesthesia Reactions: No Hx Malignant Hyperthermia: No Meds Allergies/Adverse Reactions: Allergies Allergy/AdvReac Type Severity Reaction Status Date / Time azithromycin Allergy Severe ANGIOEDEMA Verified 12/30/17 14:48 erythromycin base Allergy Severe ANGIOEDEMA Verified 12/30/17 14:48 Penicillins Allergy Severe ANAPHYLAXIS Verified 12/30/17 14:48 cephalexin monohydrate Allergy Intermediate RASH Verified 12/30/17 14:48 [From Keflex] gabapentin Allergy Intermediate RASH Verified 12/30/17 14:48 pregabalin Allergy Intermediate RASH Verified 12/30/17 14:48 Sulfa (Sulfonamide Allergy Intermediate RASH Verified 12/30/17 14:48 Antibiotics) nitro paste Allergy Intermediate DIZZINESS/H Uncoded 12/30/17 14:48 YPOTENSION [place] Allergy FEVER Uncoded 12/30/17 14:48 - Medications Medications: Current Medications Acetaminophen (Tylenol 325mg Tab) 650 mg PO Q6H PRN PRN Reason: Fever >100.4 F Heparin Sodium (Porcine) (Heparin) 5,000 units SC Q12H [facility]; Protocol Last Admin: 12/31/17 17:34 Dose: Not Given Hydromorphone HCl (Dilaudid) 0.5 mg IVP Q3 PRN PRN Reason: Arthritis Vancomycin HCl (Vancomycin 1gm) 1 gm in 250 mls @ 167 mls/hr IVPB Q12H [facility]; Protocol Stop: 01/02/18 03:30 Sodium Chloride (Sodium Chloride 0.9%) 1,000 mls @ 999 mls/hr IV .Q1H1M STA Stop: 01/01/18 15:44 Acetaminophen (Ofirmev) 1,000 mg in 100 mls @ 400 mls/hr IVPB Q6H [facility] Stop: 01/02/18 09:29 Insulin Human Regular (Humulin R Low) 0 units SC ACHS [facility]; Protocol Last Admin: 12/31/17 22:36 Dose: Not Given Levalbuterol HCl (Xopenex) 0.63 mg IH Q12H [facility] Last Admin: 01/01/18 07:38 Dose: Not Given Metoprolol Tartrate (Lopressor) 25 mg PO DAILY [facility] Last Admin: 12/31/17 09:41 Dose: 25 mg Metoprolol Tartrate (Lopressor) 12.5 mg PO QPM [facility] Last Admin: 12/31/17 17:26 Dose: 12.5 mg Montelukast Sodium (Singulair) 10 mg PO QPM [facility] Last Admin: 10/29/18 17:26 Dose: 10 mg Non-Formulary Medication (Rapaflo) 8 mg PO QPM [facility] Last Admin: 12/31/17 17:27 Dose: 8 mg Non-Formulary Medication (Ranexa) 500 mg PO BID [facility] Last Admin: 12/31/17 17:28 Dose: 500 mg Ondansetron HCl (Zofran Inj) 4 mg IVP ONCE PRN PRN Reason: Nausea/Vomiting Ondansetron HCl (Zofran Inj) 4 mg IVP Q4H PRN PRN Reason: Nausea/Vomiting Oxybutynin Chloride (Ditropan Tab) 5 mg PO HS [facility] Last Admin: 12/31/17 22:36 Dose: 5 mg Physical Exam - Constitutional Appears: Non-toxic, No Acute Distress - Head Exam Head Exam: NORMAL INSPECTION - Eye Exam Eye Exam: Normal appearance - ENT Exam ENT Exam: Mucous Membranes Moist - Neck Exam Neck exam: Positive for: Full Rom - Respiratory Exam Respiratory Exam: Clear to Auscultation Bilateral, NORMAL BREATHING PATTERN - Cardiovascular Exam Cardiovascular Exam: Tachycardia, REGULAR RHYTHM, +S1, +S2 - GI/Abdominal Exam GI & Abdominal Exam: Normal Bowel Sounds, Soft Additional comments: + KERI drain - Extremities Exam Extremities exam: Positive for: normal inspection - Neurological Exam Neurological exam: Altered - Skin Skin Exam: Normal Color, Warm Results - Vital Signs Recent Vital Signs: Last Vital Signs Temp 97.8 F 01/01/18 14:00 Pulse 121 H 01/01/18 14:00 Resp 16 01/01/18 14:00 BP 122/66 01/01/18 14:00 Pulse Ox 98 01/01/18 14:00 - Labs Result Diagrams: 01/01/18 14:20 01/01/18 14:20 Labs: Laboratory Results - last 24 hr 12/31/17 12/31/17 12/31/17 11:02 16:09 21:43 WBC RBC Hgb Hct MCV MCH MCHC RDW Plt Count MPV Gran % Lymph % (Auto) [place] % (Auto) Eos % (Auto) Baso % (Auto) Gran # Lymph # (Auto) [place] # (Auto) Eos # (Auto) Baso # (Auto) Neutrophils % (Manual) Lymphocytes % (Manual) Monocytes % (Manual) Eosinophils % (Manual) Metamyelocytes % Platelet Evaluation PT INR APTT Sodium Potassium Chloride Carbon Dioxide Anion Gap BUN Creatinine Est GFR ( Amer) Est GFR (Non-Af Amer) POC Glucose (mg/dL) 118 H 160 H 136 H Random Glucose Calcium Phosphorus Magnesium Total Bilirubin AST ALT Alkaline Phosphatase Total Protein Albumin Globulin Albumin/Globulin Ratio Blood Type Antibody Screen Crossmatch BBK History Checked 01/01/18 01/01/18 01/01/18 06:30 06:30 06:30 WBC 3.9 L D RBC 3.77 Hgb 10.6 L Hct 32.7 L MCV 86.7 MCH 28.1 MCHC 32.4 RDW 15.2 H Plt Count 132 MPV 9.7 Gran % 54.7 Lymph % (Auto) 33.6 [place] % (Auto) 6.6 H Eos % (Auto) 4.6 Baso % (Auto) 0.5 Gran # 2.15 Lymph # (Auto) 1.3 [place] # (Auto) 0.3 Eos # (Auto) 0.2 Baso # (Auto) 0.02 Neutrophils % (Manual) Lymphocytes % (Manual) Monocytes % (Manual) Eosinophils % (Manual) Metamyelocytes % Platelet Evaluation PT 12.2 INR 1.06 APTT 28.7 Sodium 139 Potassium 3.8 Chloride 109 H Carbon Dioxide 27 Anion Gap 6 L BUN 9 Creatinine 0.9 Est GFR ( Amer) > 60 Est GFR (Non-Af Amer) > 60 POC Glucose (mg/dL) Random Glucose 111 H Calcium 8.2 L Phosphorus 3.1 Magnesium 2.0 Total Bilirubin 0.8 AST 23 ALT 37 Alkaline Phosphatase 104 Total Protein 6.3 Albumin 3.2 Globulin 3.0 Albumin/Globulin Ratio 1.1 Blood Type Antibody Screen Crossmatch BBK History Checked 01/01/18 01/01/18 01/01/18 07:45 14:20 14:20 WBC 25.1 H* RBC 4.18 Hgb 12.0 L Hct 37.8 L MCV 90.4 D MCH 28.7 MCHC 31.7 RDW 14.6 H Plt Count 184 MPV 9.6 Gran % 76.8 H Lymph % (Auto) 15.7 L [place] % (Auto) 6.7 H Eos % (Auto) 0.6 L Baso % (Auto) 0.2 Gran # 19.27 H Lymph # (Auto) 3.9 H [place] # (Auto) 1.7 H Eos # (Auto) 0.2 Baso # (Auto) 0.04 Neutrophils % (Manual) 76 H Lymphocytes % (Manual) 17 L Monocytes % (Manual) 3 Eosinophils % (Manual) 2 Metamyelocytes % 2 Platelet Evaluation Normal PT INR APTT Sodium 141 Potassium 4.3 Chloride 108 H Carbon Dioxide 27 Anion Gap 10 BUN 10 Creatinine 1.0 Est GFR ( Amer) > 60 Est GFR (Non-Af Amer) > 60 POC Glucose (mg/dL) Random Glucose 200 H Calcium 7.7 L Phosphorus 5.6 H Magnesium 1.8 Total Bilirubin AST ALT Alkaline Phosphatase Total Protein Albumin Globulin Albumin/Globulin Ratio Blood Type A NEGATIVE Antibody Screen Negative Crossmatch See Detail BBK History Checked Patient has bt - Imaging and Cardiology Chest x-ray Status: Image reviewed by me, Report reviewed by me Assessment & Plan - Assessment and Plan (Free Text) Assessment: 77yo male with PMhx mantle cell lymphoma stage IV, Lung CA s/p wedge resection, CAD with stents, DM, HTN, COPD, perforated sigmoid diverticulitis s/p Milli procedure, s/p colostomy reversal today, with respiraotry failure, AMS Respiratory failure AMS Hx Lymphoma Hx of Lung Ca CAD DM HTN COPD Leukocytosis s/p colostomy reversal Recommend: - cont with vent support, low tidal vol ventilation, daily sedation vacation - would hold off sedation for now, to assess mental status - panculture, UCx, BCx, Procal - obtain ID eval (leukocytosis) - BP control - IVF hydration - NPO - Pain control - follow up heme onc - follow up surgery - rest of post op mgmt as per surgery - GI ppx - DVT ppx - Monitor in MICU Critical care time 35 minutes
--- NOTE | 2018-01-01 15:35 | RAD ---
Date of service: 01/01/2018 HISTORY: ETT placement COMPARISON: No prior. FINDINGS: LUNGS: The endotracheal tube is in satisfactory position. PLEURA: No significant pleural effusion identified, no pneumothorax apparent. CARDIOVASCULAR: No aortic atherosclerotic calcification present. Normal cardiac size. No pulmonary vascular congestion. OSSEOUS STRUCTURES: No significant abnormalities. VISUALIZED UPPER ABDOMEN: Tip of the nasogastric tube is just beyond the GE junction OTHER FINDINGS: None. IMPRESSION: Endotracheal tube in satisfactory position
[2018-01-01 16:14] LABS: ARTERIAL BLOOD GAS HCO3 20.7 mmol/L (21-28); ARTERIAL BLOOD GAS O2 SAT 99.6 % (95-98); ARTERIAL BLOOD GAS PCO2 44 mm/Hg (35-45); ARTERIAL BLOOD GAS PH 7.28 (7.35-7.45); ARTERIAL BLOOD GAS TCO2 22.1 mmol.L (22-28)
--- NOTE | 2018-01-01 16:22 | CARD ---
APPROVED REPORT Date of service: 01/01/2018 EKG Measurement Heart [id number] <Conclusion> Sinus tachycardia ST & T wave abnormality, consider anterolateral ischemia Abnormal ECG
[2018-01-01] MEDS: Sodium Chloride 0.9% 1,000 ML IV SCH (16:50)
[2018-01-01] MEDS: Propofol 10 mg/ml 1,000 MG/100 ML VIAL IV PRN (16:50)
[2018-01-01] MEDS: Insulin Reg-LOW-Coverage SC SCH ×2 (17:14→22:00)
[2018-01-01] MEDS ORDERED: MEROPENEM 500 MG in NS 500 MG/50 ML BAG IVPB SCH ×2 (17:15→17:30)
[2018-01-01] MEDS: HYDROmorphone 0.5 mg/0.5 ml ISec IVP PRN ×2 (17:16→21:10)
--- NOTE | 2018-01-01 17:33 | CP.PCM.PN ---
Subjective - Date & Time of Evaluation Date of Evaluation: 01/01/18 Time of Evaluation: 07:24 - Subjective Subjective: Hematology/Oncology Progress Note (Dr. Myers's Service) Patient seen and assessed at bedside in endoscopy holding. No acute events noted overnight. Patient to have surgery later today for colostomy removal. He reports that he had colonoscopy yesterday. Patient denies any further complaints at this time including fevers, chills, headache, chest pain, SOB, N/V/C, changes in urine output, skin changes or any numbness/tingling of any extremity. Objective - Vital Signs/Intake and Output Vital Signs (last 24 hours): Temp Pulse Resp BP Pulse Ox 97.8 F 99 H 14 101/60 100 01/01/18 15:00 01/01/18 17:00 01/01/18 15:00 01/01/18 17:00 01/01/18 17:00 Intake and Output: 01/01/18 01/01/18 06:59 18:59 Intake Total 120 1 Output Total 800 Balance -680 1 - Medications Medications: Current Medications Acetaminophen (Tylenol 325mg Tab) 650 mg PO Q6H PRN PRN Reason: Fever >100.4 F Heparin Sodium (Porcine) (Heparin) 5,000 units SC Q12H [facility]; Protocol Last Admin: 12/31/17 17:34 Dose: Not Given Hydromorphone HCl (Dilaudid) 0.5 mg IVP Q3 PRN PRN Reason: Arthritis Last Admin: 01/01/18 17:16 Dose: 0.5 mg Vancomycin HCl (Vancomycin 1gm) 1 gm in 250 mls @ 167 mls/hr IVPB Q12H [facility]; Protocol Stop: 01/02/18 03:30 Last Admin: 01/01/18 15:00 Dose: 167 mls/hr Acetaminophen (Ofirmev) 1,000 mg in 100 mls @ 400 mls/hr IVPB Q6H [facility] Propofol (Diprivan) 1,000 mg in 100 mls @ 2.014 mls/hr IV .Q24H PRN; Protocol PRN Reason: TITRATE PER MD ORDER Last Titration: 01/01/18 17:00 Dose: 0 mcg/kg/min, 0 mls/hr Sodium Chloride (Sodium Chloride 0.9%) 1,000 mls @ 75 mls/hr IV .[id number] [facility] Last Admin: 01/01/18 16:50 Dose: 75 mls/hr Vancomycin HCl (Vancomycin 1gm) 1 gm in 250 mls @ 167 mls/hr IVPB DAILY [facility]; Protocol Meropenem/Sodium Chloride (Merrem Iv 500 Mg/Ns 50 Ml) 500 mg in 50 mls @ 100 mls/hr IVPB Q8 [facility]; Protocol Insulin Human Regular (Humulin R Low) 0 units SC ACHS [facility]; Protocol Last Admin: 01/01/18 17:14 Dose: 2 u Levalbuterol HCl (Xopenex) 0.63 mg IH Q12H [facility] Last Admin: 01/01/18 07:38 Dose: Not Given Metoprolol Tartrate (Lopressor) 25 mg PO DAILY [facility] Last Admin: 12/31/17 09:41 Dose: 25 mg Metoprolol Tartrate (Lopressor) 12.5 mg PO QPM [facility] Last Admin: 12/31/17 17:26 Dose: 12.5 mg Montelukast Sodium (Singulair) 10 mg PO QPM [facility] Last Admin: 12/31/17 17:26 Dose: 10 mg Non-Formulary Medication (Rapaflo) 8 mg PO QPM [facility] Last Admin: 12/31/17 17:27 Dose: 8 mg Non-Formulary Medication (Ranexa) 500 mg PO BID [facility] Last Admin: 12/31/17 17:28 Dose: 500 mg Ondansetron HCl (Zofran Inj) 4 mg IVP ONCE PRN PRN Reason: Nausea/Vomiting Ondansetron HCl (Zofran Inj) 4 mg IVP Q4H PRN PRN Reason: Nausea/Vomiting Oxybutynin Chloride (Ditropan Tab) 5 mg PO HS [facility] Last Admin: 12/31/17 22:36 Dose: 5 mg - Labs Labs: 01/01/18 14:20 01/01/18 14:20 PT 12.2 SECONDS (9.4-12.5) 01/01/18 06:30 INR 1.06 01/01/18 06:30 APTT 28.7 Seconds (25.1-36.5) 01/01/18 06:30 - Additional Findings Additional findings: - Constitutional Appears: Non-toxic, No Acute Distress - Head Exam Head Exam: ATRAUMATIC, NORMOCEPHALIC - Eye Exam Eye Exam: EOMI - ENT Exam ENT Exam: Mucous Membranes Moist - Neck Exam Neck Exam: Full ROM - Respiratory Exam Respiratory Exam: Clear to Ausculation Bilateral, NORMAL BREATHING PATTERN. absent: Accessory Muscle Use, Decreased Breath Sounds, Rales, Rhonchi, Wheezes, Respiratory Distress - Cardiovascular Exam Cardiovascular Exam: REGULAR RHYTHM, RRR, +S1, +S2 - GI/Abdominal Exam GI & Abdominal Exam: Soft, Tenderness (Mild; Diffuse; Interval improvement noted), Normal Bowel Sounds Additional comments: Colostomy bag in place with liquid brown drainage and no signs of clinical infection of surrounding soft tissues or stoma - Extremities Exam Extremities Exam: absent: Calf Tenderness - Neurological Exam Neurological Exam: Alert, Awake, Oriented x3 - Psychiatric Exam Psychiatric exam: Normal Affect, Normal Mood - Skin Skin Exam: Dry, Warm Assessment and Plan - Assessment and Plan (Free Text) Assessment: 77 year old male with a past medical history significant for stage IV mantle cell lymphoma (quiescence), lung cancer s/p wedge resection, hypoglobulinemia, CAD s/p stent placement, DM2, HTN, COPD, and perforated sigmoid diverticulitis s/p Milli procedure who presented with abdominal pain. Patient had EGD/colonoscopy that showed esophagitis, gastritis, diverticulosis and two colonic polyps. Patient to undergo colostomy reversal today (01/01). Plan: 1. Abdominal Pain -Colostomy reversal scheduled for today (01/01) -EGD/Colonoscopy report noted -Continue Zofran PRN for N/V -Continue Tylenol PRN for pain -NPO diet for surgery today -Continue NS at 75mls/hr -GI and Surgery consulted, all recommendations appreciated 2. History of CAD -Continue home Metoprolol as ordered -DAPT held in setting of surgery 3. History of COPD -Continue Xopenex -Continue Singulair -Continue supplemental oxygen as ordered 4. History of BPH -Continue Rapaflo -Continue Oxybutynin DVT Prophylaxis: Heparin Diet: NPO Code Status: Full code Patient seen and case discussed with attending, Dr. Myers. Mariusz Méndez PGY2
[2018-01-01 22:33] LABS: VENOUS BLOOD GAS BASE EXCESS -6.4 mmol/L (0.0-2.0); VENOUS BLOOD GAS PO2 53 mm/Hg (30-55); VENOUS BLOOD PH 7.25 (7.32-7.43)
[2018-01-01] MEDS: Meropenem IV 1 gm in NS 1 GM/50 ML BAG IVPB SCH (22:58)
[2018-01-01] MEDS: Vancomycin 1gm in NS 250ml 1 GM/250 ML BAG IVPB SCH (23:00)
[2018-01-02 00:38] LABS: URINE BILIRUBIN NEGATIVE (NEGATIVE); URINE BLOOD MODERATE (NEGATIVE); URINE GLUCOSE (UA) 100 mg/dL (NEGATIVE); URINE LEUKOCYTE ESTERASE NEGATIVE Leu/uL (NEGATIVE); URINE PROTEIN NEGATIVE mg/dL (<30 mg/dL); URINE UROBILINOGEN 0.2 E.U./dL (<1 E.U./dL)
[2018-01-02 00:40] LABS: URINE APPEARANCE CLEAR (CLEAR); URINE COLOR YELLOW (YELLOW)
[2018-01-02 01:02] LABS: URINE BACTERIA RARE (NEG); URINE EPITHELIAL CELLS 0 - 2 /hpf (0-5); URINE WBC 0 - 2 /hpf (0-6)
[2018-01-02 01:37] LABS: VENOUS BLOOD GAS BASE EXCESS -3.8 mmol/L (0.0-2.0); VENOUS BLOOD GAS PO2 50 mm/Hg (30-55); VENOUS BLOOD PH 7.29 (7.32-7.43)
[2018-01-02] MEDS: HYDROmorphone 0.5 mg/0.5 ml ISec IVP PRN ×6 (03:38→20:50)
[2018-01-02] MEDS: Meropenem IV 1 gm in NS 1 GM/50 ML BAG IVPB SCH ×3 (05:45→22:00)
[2018-01-02 06:27] LABS: BASO # 0.01 K/mm3 (0.0-2.0); BASO % 0.1 % (0.0-3.0); GRAN % 87.9 % (50.0-68.0); LYMPH # 1.1 (1.2-3.4); LYMPH % 7.7 % (22.0-35.0); MEAN CELL VOLUME 87.5 fl (80.0-105.0); MEAN CORPUSCULAR HEMOGLOBIN 29.4 pg (25.0-35.0); MEAN CORPUSCULAR HGB CONC 33.6 g/dl (31.0-37.0); MEAN PLATELET VOLUME 9.5 fl (7.0-11.0); MONO # 0.6 (0.1-0.6); MONO % 4.3 % (1.0-6.0); RBC 3.27 10^6/uL (3.5-6.1); RED CELL DISTRIBUTION WIDTH 14.8 % (11.5-14.5); WHITE BLOOD COUNT 14.8 10^3/uL (4.5-11.0)
[2018-01-02 06:38] LABS: ALBUMIN 2.5 g/dL (3.0-4.8); ALT/SGPT 33 U/L (7-56); AST/SGOT 26 U/L (17-59); BLOOD UREA NITROGEN 10 mg/dL (7-21); CALCIUM 7.4 mg/dL (8.4-10.5); GFR NON-AFRICAN AMERICAN > 60
[2018-01-02 06:59] LABS: HEMOGLOBIN 9.6 g/dL (14.0-18.0)
[2018-01-02] MEDS: Insulin Reg-LOW-Coverage SC SCH ×4 (07:37→22:00)
[2018-01-02] MEDS: Levalbuterol 0.63 MG/3 ML Inhal Soln UD IH SCH (07:53)
[2018-01-02] MEDS: Propofol 10 mg/ml 1,000 MG/100 ML VIAL IV PRN (08:03)
--- NOTE | 2018-01-02 08:19 | CP.PCM.PN ---
<Keyur Finney - Last Filed: 01/02/18 10:09> Subjective - Date & Time of Evaluation Date of Evaluation: 01/02/18 Time of Evaluation: 08:15 - Subjective Subjective: PGY-2 GI progress note for Dr Casiano Seen in ICU. Patient intubated on mechanical vent. Abdomen soft and non-tender with + BS to all quadrants, no nausea and vomiting. No issues per nursing note overnight. Incision to abdomen with dressing dry and intact, no active bleeding noted. KERI in place with sanguineous output. NGT on low suction. Objective - Vital Signs/Intake and Output Vital Signs (last 24 hours): Temp Pulse Resp BP Pulse Ox 98.8 F 110 H 14 134/77 100 01/02/18 04:00 01/02/18 05:00 01/01/18 15:00 01/02/18 05:00 01/02/18 05:00 Intake and Output: 01/02/18 01/02/18 06:59 18:59 Intake Total 1202 87 Output Total 275 Balance 927 87 - Medications Medications: Current Medications Acetaminophen (Tylenol 325mg Tab) 650 mg PO Q6H PRN PRN Reason: Fever >100.4 F Heparin Sodium (Porcine) (Heparin) 5,000 units SC Q12H [facility]; Protocol Last Admin: 12/31/17 17:34 Dose: Not Given Hydromorphone HCl (Dilaudid) 0.5 mg IVP Q3 PRN PRN Reason: Arthritis Last Admin: 01/02/18 07:39 Dose: 0.5 mg Acetaminophen (Ofirmev) 1,000 mg in 100 mls @ 400 mls/hr IVPB Q6H [facility] Propofol (Diprivan) 1,000 mg in 100 mls @ 2.014 mls/hr IV .Q24H PRN; Protocol PRN Reason: TITRATE PER MD ORDER Last Admin: 01/02/18 08:03 Dose: 7 mcg/kg/min, 2.82 mls/hr Sodium Chloride (Sodium Chloride 0.9%) 1,000 mls @ 75 mls/hr IV .[id number] [facility] Last Admin: 01/01/18 16:50 Dose: 75 mls/hr Meropenem (Merrem Iv 1 Gm Premix) 1 gm in 50 mls @ 100 mls/hr IVPB Q8 [facility]; Protocol Stop: 01/10/18 22:01 Last Admin: 01/02/18 05:45 Dose: 100 mls/hr Vancomycin HCl (Vancomycin 1gm) 1 gm in 250 mls @ 167 mls/hr IVPB Q12 [facility]; Protocol Stop: 01/10/18 22:01 Last Admin: 01/01/18 23:00 Dose: 167 mls/hr Potassium Chloride (Potassium Chloride 10 Meq/100 Ml) 10 meq in 100 mls @ 50 mls/hr IVPB Q2H [facility] Stop: 01/02/18 12:14 Insulin Human Regular (Humulin R Low) 0 units SC ACHS [facility]; Protocol Last Admin: 01/02/18 07:37 Dose: 1 u Levalbuterol HCl (Xopenex) 0.63 mg IH Q12H [facility] Last Admin: 01/02/18 07:53 Dose: 0.63 mg Metoprolol Tartrate (Lopressor) 25 mg PO DAILY [facility] Last Admin: 12/31/17 09:41 Dose: 25 mg Metoprolol Tartrate (Lopressor) 12.5 mg PO QPM [facility] Last Admin: 12/31/17 17:26 Dose: 12.5 mg Montelukast Sodium (Singulair) 10 mg PO QPM [facility] Last Admin: 12/31/17 17:26 Dose: 10 mg Non-Formulary Medication (Rapaflo) 8 mg PO QPM [facility] Last Admin: 12/31/17 17:27 Dose: 8 mg Non-Formulary Medication (Ranexa) 500 mg PO BID [facility] Last Admin: 12/31/17 17:28 Dose: 500 mg Ondansetron HCl (Zofran Inj) 4 mg IVP Q4H PRN PRN Reason: Nausea/Vomiting Oxybutynin Chloride (Ditropan Tab) 5 mg PO HS [facility] Last Admin: 12/31/17 22:36 Dose: 5 mg - Labs Labs: 01/02/18 06:10 01/02/18 06:10 PT 12.2 SECONDS (9.4-12.5) 01/01/18 06:30 INR 1.06 01/01/18 06:30 APTT 28.7 Seconds (25.1-36.5) 01/01/18 06:30 - Additional Findings Additional findings: - Constitutional Appears: Non-toxic, No Acute Distress - Head Exam Head Exam: ATRAUMATIC, NORMOCEPHALIC - Eye Exam Eye Exam: EOMI - ENT Exam ENT Exam: Mucous Membranes Moist NGT on low suction - Neck Exam Neck Exam: Full ROM - Respiratory Exam Respiratory Exam: NORMAL BREATHING PATTERN. absent: Accessory Muscle Use, Decreased Breath Sounds, Rales, Rhonchi, Wheezes, Respiratory Distress On mechanical ventilator via ET tube, Rhonchi - Cardiovascular Exam Cardiovascular Exam: REGULAR RHYTHM, RRR, +S1, +S2 - GI/Abdominal Exam GI & Abdominal Exam: Soft, Tenderness (Mild; Diffuse), Normal Bowel Sounds Additional comments: KERI in place with sanguineous output - Extremities Exam Extremities Exam: absent: Calf Tenderness - Neurological Exam Neurological Exam: Alert, Awake, Oriented x3 - Psychiatric Exam Psychiatric exam: Normal Affect, Normal Mood - Skin Skin Exam: Dry, Warm Assessment and Plan - Assessment and Plan (Free Text) Plan: 77 year old male with a past medical history significant for stage IV mantle cell lymphoma (quiescence), lung cancer s/p wedge resection, hypoglobulinemia, CAD s/p stent placement, DM2, HTN, COPD, and perforated sigmoid diverticulitis s/p Milli procedure who presented with abdominal pain: Abdominal Pain -s/p colonoscopy 12/31 * one 8mm polyp in cecum removed, diverticulosis in sigmoid colon and in descending colon, internal hemorrhoids, ileum normal, one 5mm polyp in rectum removed * await pathology results -s/p EGD 12/31 * normal examined duodenum, gastritis, esophagogastric landmarks identified -s/p exploratory laparotomy, reversal of colostomy, partial rectal stump resection with end to end anastomosis, extensive lysis of adhesions and mobilization of splenic flexure, partial omentectomy 01/01 * Of note: While in the PACU patient became less responsive, unarousable, went into respiratory arrest, PROTECTIVE SIGNAL INSTALLER HELPER called, patient intubated by anesthesia. -plan is to extubate in afternoon Seen and discussed with Dr Casiano <Lakisha Casiano V - Last Filed: 01/03/18 01:18> Objective - Vital Signs/Intake and Output Vital Signs (last 24 hours): Temp Pulse Resp BP Pulse Ox 100 F H 109 H 34 H 95/46 L 95 01/02/18 20:00 01/02/18 22:00 01/02/18 18:30 01/02/18 18:30 01/02/18 18:30 Intake and Output: 01/02/18 01/03/18 18:59 06:59 Intake Total 2503.0 Output Total 430 Balance 2073.0 - Medications Medications: Current Medications Acetaminophen (Tylenol 325mg Tab) 650 mg PO Q6H PRN PRN Reason: Fever >100.4 F Albuterol/Ipratropium (Duoneb 3 Mg/0.5 Mg (3 Ml) Ud) 3 ml IH [id number] [facility] Last Admin: 01/02/18 19:32 Dose: 3 ml Heparin Sodium (Porcine) (Heparin) 5,000 units SC Q12H [facility]; Protocol Last Admin: 01/02/18 22:00 Dose: 5,000 units Hydromorphone HCl (Dilaudid) 0.5 mg IVP Q3 PRN PRN Reason: Pain, severe (8-10) Last Admin: 01/03/18 00:19 Dose: 0.5 mg Propofol (Diprivan) 1,000 mg in 100 mls @ 2.014 mls/hr IV .Q24H PRN; Protocol PRN Reason: TITRATE PER MD ORDER Last Titration: 01/02/18 09:30 Dose: 0 mcg/kg/min, 0 mls/hr Sodium Chloride (Sodium Chloride 0.9%) 1,000 mls @ 75 mls/hr IV .[id number] [facility] Last Admin: 01/02/18 10:07 Dose: 75 mls/hr Meropenem (Merrem Iv 1 Gm Premix) 1 gm in 50 mls @ 100 mls/hr IVPB Q8 [facility]; Protocol Stop: 01/10/18 22:01 Last Admin: 01/02/18 22:00 Dose: 100 mls/hr Vancomycin HCl (Vancomycin 1gm) 1 gm in 250 mls @ 167 mls/hr IVPB Q12 [facility]; Protocol Stop: 01/10/18 22:01 Last Admin: 01/02/18 10:07 Dose: 167 mls/hr Dexmedetomidine HCl (Precedex 400mcg/100ml) 400 mcg in 100 mls @ 3.361 mls/hr IV .Q24H PRN; Protocol PRN Reason: Agitation Last Titration: 01/02/18 14:30 Dose: 0 mcg/kg/hr, 0 mls/hr Acetaminophen (Ofirmev) 1,000 mg in 100 mls @ 400 mls/hr IVPB Q6H [facility] Stop: 01/03/18 03:29 Last Admin: 01/02/18 23:02 Dose: 400 mls/hr Insulin Human Regular (Humulin R Low) 0 units SC ACHS [facility]; Protocol Last Admin: 01/02/18 22:00 Dose: Not Given Metoprolol Tartrate (Lopressor) 25 mg PO DAILY [facility] Last Admin: 12/31/17 09:41 Dose: 25 mg Metoprolol Tartrate (Lopressor) 12.5 mg PO QPM [facility] Last Admin: 12/31/17 17:26 Dose: 12.5 mg Montelukast Sodium (Singulair) 10 mg PO QPM [facility] Last Admin: 12/31/17 17:26 Dose: 10 mg Nitroglycerin (Nitro-Bid 2% Oint) 0.5 ea TOP Q6 [facility] Last Admin: 01/02/18 23:01 Dose: 0.5 ea Non-Formulary Medication (Rapaflo) 8 mg PO QPM [facility] Last Admin: 12/31/17 17:27 Dose: 8 mg Non-Formulary Medication (Ranexa) 500 mg PO BID [facility] Last Admin: 12/31/17 17:28 Dose: 500 mg Ondansetron HCl (Zofran Inj) 4 mg IVP Q4H PRN PRN Reason: Nausea/Vomiting Oxybutynin Chloride (Ditropan Tab) 5 mg PO HS [facility] Last Admin: 12/31/17 22:36 Dose: 5 mg Pantoprazole Sodium (Protonix Inj) 40 mg IVP DAILY [facility] - Labs Labs: 01/02/18 06:10 01/02/18 06:10 PT 12.2 SECONDS (9.4-12.5) 01/01/18 06:30 INR 1.06 01/01/18 06:30 APTT 28.7 Seconds (25.1-36.5) 01/01/18 06:30 Attending/Attestation - Attestation I have personally seen and examined this patient.: Yes I have fully participated in the care of the patient.: Yes I have reviewed all pertinent clinical information, including history, physical exam and plan: Yes
[2018-01-02] MEDS ORDERED: HYDROmorphone 1 mg/ml ISec IVP STA (09:48)
[2018-01-02] MEDS ORDERED: Dexmedetomidine 400mcg/100mL 400 MCG/100 ML BOTTLE IV PRN (09:56)
[2018-01-02] MEDS ORDERED: Sodium Chloride 0.9% 1,000 ML IV STA (10:00)
[2018-01-02] MEDS ORDERED: Vancomycin 1gm in NS 250ml 1 GM/250 ML BAG IVPB SCH (10:00)
[2018-01-02] MEDS: Vancomycin 1gm in NS 250ml 1 GM/250 ML BAG IVPB SCH (10:07)
[2018-01-02] MEDS: Sodium Chloride 0.9% 1,000 ML IV SCH (10:07)
--- NOTE | 2018-01-02 11:07 | RAD ---
Date of service: 01/02/2018 HISTORY: ETT and NGT COMPARISON: January 01, 2018. FINDINGS: LUNGS: No active pulmonary disease. PLEURA: No significant pleural effusion identified, no pneumothorax apparent. CARDIOVASCULAR: Atherosclerotic calcifications identified primarily aortic arch. Venous access catheter in stable, satisfactory position. No radiographic findings to suggest acute or significant cardiovascular disease. OSSEOUS STRUCTURES: No significant abnormalities. VISUALIZED UPPER ABDOMEN: Normal. OTHER FINDINGS: Satisfactory position of endotracheal tube. Improved positioning of the nasogastric tube which is now coiled but not kinked in the stomach. IMPRESSION: No active pulmonary disease. Satisfactory position ventilatory, vascular and nasogastric apparatus.
--- NOTE | 2018-01-02 11:15 | CP.CCUPN ---
<Shereen Vogel - Last Filed: 01/02/18 14:31> CCU Subjective - Physician Review Subjective (Free Text): CRITICAL CARE PROGRESS NOTE FOR DR. NANCY Vogel PGY-1 Pt seen and examined at bedside. He is currently intubated, off of propofol sedation, and started on precedex. He was awake and alert, and writing on paper to communicate that he had pain when he tried to talk as well as pain in his abdomen. 12 ROS unable to be obtained as pt is intubated. CCU Objective - Vital Signs / Intake & Output Intake and Output (Last 8hrs): Intake & Output 01/01/18 01/02/18 01/02/18 22:59 06:59 14:59 Intake Total 1453 1200 92.5 Output Total 360 275 Balance 1093 925 92.5 Weight 149 lb 1.6 oz 148 lb 3.2 oz Intake: IV 1453 1200 92.5 antibiotics 300 300 right chest implanted 1150 900 port Oral 0 Output: Gastric Amount 0 Left 0 Drainage 210 Left Abdomen 130 Medial Abdomen 80 Urine 150 275 Urethral (Morales) 150 275 Other: # Bowel Movements 0 - Physical Exam Head: Positive for: Atraumatic, Normocephalic Pupils: Positive for: PERRL Extroacular Muscles: Positive for: EOMI Conjunctiva: Positive for: Normal Mouth: Positive for: Dry Neck: Positive for: Normal Range of Motion Respiratory/Chest: Positive for: Clear to Auscultation, Good Air Exchange. Negative for: Respiratory Distress, Accessory Muscle Use Cardiovascular: Positive for: Regular Rate and Rhythm, Normal S1, S2. Negative for: Murmurs Abdomen: Positive for: Tenderness (non-focal), Other (abdominal dressing place. KERI draining serosanguinous fluid) Back: Positive for: Normal Inspection Upper Extremity: Positive for: Normal Inspection. Negative for: Cyanosis, Edema Lower Extremity: Positive for: Normal Inspection. Negative for: Edema Neurological: Positive for: GCS=15, CN II-XII Intact, Speech Normal Skin: Positive for: Warm, Dry, Normal Color. Negative for: Rashes Psychiatric: Positive for: Alert, Oriented x 3, Normal Insight, Normal Concentration - Medications Active Medications: Active Medications Generic Name Dose Route Start Last Admin Trade Name Freq PRN Reason Stop Dose Admin Acetaminophen 650 mg 12/30/17 17:54 Tylenol 325mg Tab PO Q6H PRN Fever >100.4 F Albuterol/Ipratropium 3 ml 01/02/18 14:00 Duoneb 3 Mg/0.5 Mg (3 Ml) Ud IH [id number] ALEX Heparin Sodium (Porcine) 5,000 units 12/30/17 17:45 12/31/17 17:34 Heparin SC Not Given Q12H ALEX Protocol Hydromorphone HCl 0.5 mg 01/01/18 13:53 01/02/18 07:39 Dilaudid IVP 0.5 mg Q3 PRN Administration Arthritis Acetaminophen 1,000 mg in 100 mls @ 400 mls/hr 01/01/18 15:15 Ofirmev IVPB 01/03/18 03:29 Q6H ALEX Propofol 1,000 mg in 100 mls @ 2.014 mls/hr 01/01/18 16:41 01/02/18 09:30 Diprivan IV 0 mcg/kg/min .Q24H PRN 0 mls/hr TITRATE PER MD ORDER Titration Protocol 5 MCG/KG/MIN Sodium Chloride 1,000 mls @ 75 mls/hr 01/01/18 16:45 01/02/18 10:07 Sodium Chloride 0.9% IV 75 mls/hr .[id number] ALEX Administration Meropenem 1 gm in 50 mls @ 100 mls/hr 01/01/18 22:00 01/02/18 05:45 Merrem Iv 1 Gm Premix IVPB 01/10/18 22:01 100 mls/hr Q8 ALEX Administration Protocol Vancomycin HCl 1 gm in 250 mls @ 167 mls/hr 01/01/18 22:00 01/02/18 10:07 Vancomycin 1gm IVPB 01/10/18 22:01 167 mls/hr Q12 ALEX Administration Protocol Potassium Chloride 10 meq in 100 mls @ 50 mls/hr 01/02/18 08:15 01/02/18 10:05 Potassium Chloride 10 Meq/100 Ml IVPB 01/02/18 12:14 50 mls/hr Q2H ALEX Administration Dexmedetomidine HCl 400 mcg in 100 mls @ 3.361 mls/hr 01/02/18 09:56 01/02/18 10:31 Precedex 400mcg/100ml IV 0.4 mcg/kg/hr .Q24H PRN 6.722 mls/hr Agitation Titration Protocol 0.2 MCG/KG/HR Insulin Human Regular 0 units 12/30/17 22:00 01/02/18 07:37 Humulin R Low SC 1 u ACHS ALEX Administration Protocol Metoprolol Tartrate 25 mg 12/31/17 10:00 12/31/17 09:41 Lopressor PO 25 mg DAILY ALEX Administration Metoprolol Tartrate 12.5 mg 12/30/17 18:00 12/31/17 17:26 Lopressor PO 12.5 mg QPM ALEX Administration Montelukast Sodium 10 mg 12/30/17 18:00 12/31/17 17:26 Singulair PO 10 mg QPM ALEX Administration Non-Formulary Medication 8 mg 12/30/17 19:26 12/31/17 17:27 Rapaflo PO 8 mg QPM ALEX Administration Non-Formulary Medication 500 mg 12/30/17 19:28 12/31/17 17:28 Ranexa PO 500 mg BID ALEX Administration Ondansetron HCl 4 mg 01/01/18 13:58 Zofran Inj IVP Q4H PRN Nausea/Vomiting Oxybutynin Chloride 5 mg 12/30/17 22:00 12/31/17 22:36 Ditropan Tab PO 5 mg HS ALEX Administration - Patient Studies Lab Studies: Lab Studies 01/02/18 01/02/18 01/02/18 Range/Units 06:10 06:10 06:10 WBC 14.8 H D (4.5-11.0) 10^3/uL RBC 3.27 L (3.5-6.1) 10^6/uL Hgb 9.6 L D (14.0-18.0) g/dL Hct 28.6 L (42.0-52.0) % MCV 87.5 (80.0-105.0) fl MCH 29.4 (25.0-35.0) pg MCHC 33.6 (31.0-37.0) g/dl RDW 14.8 H (11.5-14.5) % Plt Count 132 (120.0-450.0) 10^3/uL MPV 9.5 (7.0-11.0) fl Gran % 87.9 H (50.0-68.0) % Lymph % (Auto) 7.7 L (22.0-35.0) % [place] % (Auto) 4.3 (1.0-6.0) % Eos % (Auto) 0.0 L (1.5-5.0) % Baso % (Auto) 0.1 (0.0-3.0) % Gran # 13.00 H (1.4-6.5) Lymph # (Auto) 1.1 L (1.2-3.4) [place] # (Auto) 0.6 (0.1-0.6) Eos # (Auto) 0.0 (0.0-0.7) Baso # (Auto) 0.01 (0.0-2.0) K/mm3 Neutrophils % (Manual) (50.0-70.0) % Lymphocytes % (Manual) (22.0-35.0) % Monocytes % (Manual) (1.0-6.0) % Eosinophils % (Manual) (0.0-3.0) % Metamyelocytes % % Platelet Evaluation (NORMAL) pCO2 (35-45) mm/Hg pO2 (80-100) mm/Hg HCO3 (21-28) mmol/L ABG pH (7.35-7.45) ABG Total CO2 (22-28) mmol.L ABG O2 Saturation (95-98) % ABG Base Excess (-2.0-3.0) mmol/L ABG Potassium (3.6-5.2) mmol/L VBG pH (7.32-7.43) VBG pCO2 (40-60) VBG HCO3 (21-28) mmol/l VBG Total CO2 (22-28) mmol.L VBG O2 Sat (Calc) (40-65) % VBG Base Excess (0.0-2.0) mmol/L VBG Potassium (3.6-5.2) mmol/L Glucose (75-110) mg/dl Lactate (0.7-2.1) mmol/L Mechanical Rate FiO2 % Tidal Volume PEEP Sodium 139 (132-148) mmol/L Potassium 3.8 (3.6-5.0) mmol/L Chloride 110 H (98-107) mmol/L Carbon Dioxide 26 (21-33) mmol/L Anion Gap 8 L (10-20) BUN 10 (7-21) mg/dL Creatinine 1.0 (0.8-1.5) mg/dl Est GFR ( Amer) > 60 Est GFR (Non-Af Amer) > 60 POC Glucose (mg/dL) (65-110) mg/dL Random Glucose 172 H (70-110) mg/dL Calcium 7.4 L (8.4-10.5) mg/dL Phosphorus 2.7 (2.5-4.5) mg/dL Magnesium 1.7 (1.7-2.2) mg/dL Total Bilirubin 1.3 (0.2-1.3) mg/dL AST 26 (17-59) U/L ALT 33 (7-56) U/L Alkaline Phosphatase 75 (38-126) U/L Troponin I 0.28 H* D ng/mL Total Protein 5.1 L (5.8-8.3) g/dL Albumin 2.5 L (3.0-4.8) g/dL Globulin 2.6 gm/dL Albumin/Globulin Ratio 1.0 L (1.1-1.8) Procalcitonin (0.19-0.49) NG/ML Arterial Blood Potassium (3.6-5.2) mmol/L Venous Blood Potassium (3.6-5.2) mmol/L Urine Color (YELLOW) Urine Appearance (CLEAR) Urine pH (4.7-8.0) Ur Specific [place] (1.005-1.035) Urine Protein (<30 mg/dL) mg/dL Urine Glucose (UA) (NEGATIVE) mg/dL Urine Ketones (NEGATIVE) mg/dL Urine Blood (NEGATIVE) Urine Nitrate (NEGATIVE) Urine Bilirubin (NEGATIVE) Urine Urobilinogen (<1 E.U./dL) E.U./dL Ur Leukocyte Esterase (NEGATIVE) Qasim/uL Urine RBC (0-2) /hpf Urine WBC (0-6) /hpf Ur Epithelial Cells (0-5) /hpf Urine Bacteria (NEG) Blood Type Antibody Screen Crossmatch BBK History Checked 01/02/18 01/01/18 01/01/18 Range/Units 01:25 23:30 22:14 WBC (4.5-11.0) 10^3/uL RBC (3.5-6.1) 10^6/uL Hgb (14.0-18.0) g/dL Hct (42.0-52.0) % MCV (80.0-105.0) fl MCH (25.0-35.0) pg MCHC (31.0-37.0) g/dl RDW (11.5-14.5) % Plt Count (120.0-450.0) 10^3/uL MPV (7.0-11.0) fl Gran % (50.0-68.0) % Lymph % (Auto) (22.0-35.0) % [place] % (Auto) (1.0-6.0) % Eos % (Auto) (1.5-5.0) % Baso % (Auto) (0.0-3.0) % Gran # (1.4-6.5) Lymph # (Auto) (1.2-3.4) [place] # (Auto) (0.1-0.6) Eos # (Auto) (0.0-0.7) Baso # (Auto) (0.0-2.0) K/mm3 Neutrophils % (Manual) (50.0-70.0) % Lymphocytes % (Manual) (22.0-35.0) % Monocytes % (Manual) (1.0-6.0) % Eosinophils % (Manual) (0.0-3.0) % Metamyelocytes % % Platelet Evaluation (NORMAL) pCO2 (35-45) mm/Hg pO2 50 53 (80-100) mm/Hg HCO3 (21-28) mmol/L ABG pH (7.35-7.45) ABG Total CO2 (22-28) mmol.L ABG O2 Saturation (95-98) % ABG Base Excess (-2.0-3.0) mmol/L ABG Potassium (3.6-5.2) mmol/L VBG pH 7.29 L 7.25 L (7.32-7.43) VBG pCO2 48.0 48.0 (40-60) VBG HCO3 23.1 21.0 (21-28) mmol/l VBG Total CO2 24.6 22.5 (22-28) mmol.L VBG O2 Sat (Calc) 88.5 H 89.7 H (40-65) % VBG Base Excess -3.8 L -6.4 L (0.0-2.0) mmol/L VBG Potassium 4.4 4.1 (3.6-5.2) mmol/L Glucose 203 H 227 H (75-110) mg/dl Lactate 4.3 H* 5.6 H* (0.7-2.1) mmol/L Mechanical Rate FiO2 21.0 21.0 % Tidal Volume PEEP Sodium 139.0 139.0 (132-148) mmol/L Potassium (3.6-5.0) mmol/L Chloride 109.0 H 107.0 (98-107) mmol/L Carbon Dioxide (21-33) mmol/L Anion Gap (10-20) BUN (7-21) mg/dL Creatinine (0.8-1.5) mg/dl Est GFR ( Amer) Est GFR (Non-Af Amer) POC Glucose (mg/dL) (65-110) mg/dL Random Glucose (70-110) mg/dL Calcium (8.4-10.5) mg/dL Phosphorus (2.5-4.5) mg/dL Magnesium (1.7-2.2) mg/dL Total Bilirubin (0.2-1.3) mg/dL AST (17-59) U/L ALT (7-56) U/L Alkaline Phosphatase (38-126) U/L Troponin I ng/mL Total Protein (5.8-8.3) g/dL Albumin (3.0-4.8) g/dL Globulin gm/dL Albumin/Globulin Ratio (1.1-1.8) Procalcitonin (0.19-0.49) NG/ML Arterial Blood Potassium (3.6-5.2) mmol/L Venous Blood Potassium 4.4 4.1 (3.6-5.2) mmol/L Urine Color Yellow (YELLOW) Urine Appearance Clear (CLEAR) Urine pH 6.0 (4.7-8.0) Ur Specific [place] >= 1.030 (1.005-1.035) Urine Protein Negative (<30 mg/dL) mg/dL Urine Glucose (UA) 100 H (NEGATIVE) mg/dL Urine Ketones Negative (NEGATIVE) mg/dL Urine Blood Moderate H (NEGATIVE) Urine Nitrate Negative (NEGATIVE) Urine Bilirubin Negative (NEGATIVE) Urine Urobilinogen 0.2 (<1 E.U./dL) E.U./dL Ur Leukocyte Esterase Negative (NEGATIVE) Qasim/uL Urine RBC 10 - 15 (0-2) /hpf Urine WBC 0 - 2 (0-6) /hpf Ur Epithelial Cells 0 - 2 (0-5) /hpf Urine Bacteria Rare (NEG) Blood Type Antibody Screen Crossmatch BBK History Checked 01/01/18 01/01/18 01/01/18 Range/Units 21:28 16:32 16:11 WBC (4.5-11.0) 10^3/uL RBC (3.5-6.1) 10^6/uL Hgb (14.0-18.0) g/dL Hct (42.0-52.0) % MCV (80.0-105.0) fl MCH (25.0-35.0) pg MCHC (31.0-37.0) g/dl RDW (11.5-14.5) % Plt Count (120.0-450.0) 10^3/uL MPV (7.0-11.0) fl Gran % (50.0-68.0) % Lymph % (Auto) (22.0-35.0) % [place] % (Auto) (1.0-6.0) % Eos % (Auto) (1.5-5.0) % Baso % (Auto) (0.0-3.0) % Gran # (1.4-6.5) Lymph # (Auto) (1.2-3.4) [place] # (Auto) (0.1-0.6) Eos # (Auto) (0.0-0.7) Baso # (Auto) (0.0-2.0) K/mm3 Neutrophils % (Manual) (50.0-70.0) % Lymphocytes % (Manual) (22.0-35.0) % Monocytes % (Manual) (1.0-6.0) % Eosinophils % (Manual) (0.0-3.0) % Metamyelocytes % % Platelet Evaluation (NORMAL) pCO2 44 (35-45) mm/Hg pO2 145.0 H (80-100) mm/Hg HCO3 20.7 L (21-28) mmol/L ABG pH 7.28 L (7.35-7.45) ABG Total CO2 22.1 (22-28) mmol.L ABG O2 Saturation 99.6 H (95-98) % ABG Base Excess -6.0 L (-2.0-3.0) mmol/L ABG Potassium 3.9 (3.6-5.2) mmol/L VBG pH (7.32-7.43) VBG pCO2 (40-60) VBG HCO3 (21-28) mmol/l VBG Total CO2 (22-28) mmol.L VBG O2 Sat (Calc) (40-65) % VBG Base Excess (0.0-2.0) mmol/L VBG Potassium (3.6-5.2) mmol/L Glucose 207 H (75-110) mg/dl Lactate 4.0 H* (0.7-2.1) mmol/L Mechanical Rate 20 FiO2 60.0 % Tidal Volume 350 PEEP 5 Sodium 138.0 (132-148) mmol/L Potassium (3.6-5.0) mmol/L Chloride 109.0 H (98-107) mmol/L Carbon Dioxide (21-33) mmol/L Anion Gap (10-20) BUN (7-21) mg/dL Creatinine (0.8-1.5) mg/dl Est GFR ( Amer) Est GFR (Non-Af Amer) POC Glucose (mg/dL) 207 H 223 H (65-110) mg/dL Random Glucose (70-110) mg/dL Calcium (8.4-10.5) mg/dL Phosphorus (2.5-4.5) mg/dL Magnesium (1.7-2.2) mg/dL Total Bilirubin (0.2-1.3) mg/dL AST (17-59) U/L ALT (7-56) U/L Alkaline Phosphatase (38-126) U/L Troponin I ng/mL Total Protein (5.8-8.3) g/dL Albumin (3.0-4.8) g/dL Globulin gm/dL Albumin/Globulin Ratio (1.1-1.8) Procalcitonin (0.19-0.49) NG/ML Arterial Blood Potassium 3.9 (3.6-5.2) mmol/L Venous Blood Potassium (3.6-5.2) mmol/L Urine Color (YELLOW) Urine Appearance (CLEAR) Urine pH (4.7-8.0) Ur Specific [place] (1.005-1.035) Urine Protein (<30 mg/dL) mg/dL Urine Glucose (UA) (NEGATIVE) mg/dL Urine Ketones (NEGATIVE) mg/dL Urine Blood (NEGATIVE) Urine Nitrate (NEGATIVE) Urine Bilirubin (NEGATIVE) Urine Urobilinogen (<1 E.U./dL) E.U./dL Ur Leukocyte Esterase (NEGATIVE) Qasim/uL Urine RBC (0-2) /hpf Urine WBC (0-6) /hpf Ur Epithelial Cells (0-5) /hpf Urine Bacteria (NEG) Blood Type Antibody Screen Crossmatch BBK History Checked 01/01/18 01/01/18 01/01/18 Range/Units 16:00 14:20 14:20 WBC (4.5-11.0) 10^3/uL RBC (3.5-6.1) 10^6/uL Hgb (14.0-18.0) g/dL Hct (42.0-52.0) % MCV (80.0-105.0) fl MCH (25.0-35.0) pg MCHC (31.0-37.0) g/dl RDW (11.5-14.5) % Plt Count (120.0-450.0) 10^3/uL MPV (7.0-11.0) fl Gran % (50.0-68.0) % Lymph % (Auto) (22.0-35.0) % [place] % (Auto) (1.0-6.0) % Eos % (Auto) (1.5-5.0) % Baso % (Auto) (0.0-3.0) % Gran # (1.4-6.5) Lymph # (Auto) (1.2-3.4) [place] # (Auto) (0.1-0.6) Eos # (Auto) (0.0-0.7) Baso # (Auto) (0.0-2.0) K/mm3 Neutrophils % (Manual) (50.0-70.0) % Lymphocytes % (Manual) (22.0-35.0) % Monocytes % (Manual) (1.0-6.0) % Eosinophils % (Manual) (0.0-3.0) % Metamyelocytes % % Platelet Evaluation (NORMAL) pCO2 (35-45) mm/Hg pO2 (80-100) mm/Hg HCO3 (21-28) mmol/L ABG pH (7.35-7.45) ABG Total CO2 (22-28) mmol.L ABG O2 Saturation (95-98) % ABG Base Excess (-2.0-3.0) mmol/L ABG Potassium (3.6-5.2) mmol/L VBG pH (7.32-7.43) VBG pCO2 (40-60) VBG HCO3 (21-28) mmol/l VBG Total CO2 (22-28) mmol.L VBG O2 Sat (Calc) (40-65) % VBG Base Excess (0.0-2.0) mmol/L VBG Potassium (3.6-5.2) mmol/L Glucose (75-110) mg/dl Lactate (0.7-2.1) mmol/L Mechanical Rate FiO2 % Tidal Volume PEEP Sodium 141 (132-148) mmol/L Potassium 4.3 (3.6-5.0) mmol/L Chloride 108 H (98-107) mmol/L Carbon Dioxide 27 (21-33) mmol/L Anion Gap 10 (10-20) BUN 10 (7-21) mg/dL Creatinine 1.0 (0.8-1.5) mg/dl Est GFR ( Amer) > 60 Est GFR (Non-Af Amer) > 60 POC Glucose (mg/dL) (65-110) mg/dL Random Glucose 200 H (70-110) mg/dL Calcium 7.7 L (8.4-10.5) mg/dL Phosphorus 5.6 H (2.5-4.5) mg/dL Magnesium 1.8 (1.7-2.2) mg/dL Total Bilirubin (0.2-1.3) mg/dL AST (17-59) U/L ALT (7-56) U/L Alkaline Phosphatase (38-126) U/L Troponin I < 0.01 ng/mL Total Protein (5.8-8.3) g/dL Albumin (3.0-4.8) g/dL Globulin gm/dL Albumin/Globulin Ratio (1.1-1.8) Procalcitonin 0.14 L (0.19-0.49) NG/ML Arterial Blood Potassium (3.6-5.2) mmol/L Venous Blood Potassium (3.6-5.2) mmol/L Urine Color (YELLOW) Urine Appearance (CLEAR) Urine pH (4.7-8.0) Ur Specific [place] (1.005-1.035) Urine Protein (<30 mg/dL) mg/dL Urine Glucose (UA) (NEGATIVE) mg/dL Urine Ketones (NEGATIVE) mg/dL Urine Blood (NEGATIVE) Urine Nitrate (NEGATIVE) Urine Bilirubin (NEGATIVE) Urine Urobilinogen (<1 E.U./dL) E.U./dL Ur Leukocyte Esterase (NEGATIVE) Qasim/uL Urine RBC (0-2) /hpf Urine WBC (0-6) /hpf Ur Epithelial Cells (0-5) /hpf Urine Bacteria (NEG) Blood Type Antibody Screen Crossmatch BBK History Checked 01/01/18 01/01/18 01/01/18 Range/Units 14:20 07:45 07:19 WBC 25.1 H* (4.5-11.0) 10^3/uL RBC 4.18 (3.5-6.1) 10^6/uL Hgb 12.0 L (14.0-18.0) g/dL Hct 37.8 L (42.0-52.0) % MCV 90.4 D (80.0-105.0) fl MCH 28.7 (25.0-35.0) pg MCHC 31.7 (31.0-37.0) g/dl RDW 14.6 H (11.5-14.5) % Plt Count 184 (120.0-450.0) 10^3/uL MPV 9.6 (7.0-11.0) fl Gran % 76.8 H (50.0-68.0) % Lymph % (Auto) 15.7 L (22.0-35.0) % [place] % (Auto) 6.7 H (1.0-6.0) % Eos % (Auto) 0.6 L (1.5-5.0) % Baso % (Auto) 0.2 (0.0-3.0) % Gran # 19.27 H (1.4-6.5) Lymph # (Auto) 3.9 H (1.2-3.4) [place] # (Auto) 1.7 H (0.1-0.6) Eos # (Auto) 0.2 (0.0-0.7) Baso # (Auto) 0.04 (0.0-2.0) K/mm3 Neutrophils % (Manual) 76 H (50.0-70.0) % Lymphocytes % (Manual) 17 L (22.0-35.0) % Monocytes % (Manual) 3 (1.0-6.0) % Eosinophils % (Manual) 2 (0.0-3.0) % Metamyelocytes % 2 % Platelet Evaluation Normal (NORMAL) pCO2 (35-45) mm/Hg pO2 (80-100) mm/Hg HCO3 (21-28) mmol/L ABG pH (7.35-7.45) ABG Total CO2 (22-28) mmol.L ABG O2 Saturation (95-98) % ABG Base Excess (-2.0-3.0) mmol/L ABG Potassium (3.6-5.2) mmol/L VBG pH (7.32-7.43) VBG pCO2 (40-60) VBG HCO3 (21-28) mmol/l VBG Total CO2 (22-28) mmol.L VBG O2 Sat (Calc) (40-65) % VBG Base Excess (0.0-2.0) mmol/L VBG Potassium (3.6-5.2) mmol/L Glucose (75-110) mg/dl Lactate (0.7-2.1) mmol/L Mechanical Rate FiO2 % Tidal Volume PEEP Sodium (132-148) mmol/L Potassium (3.6-5.0) mmol/L Chloride (98-107) mmol/L Carbon Dioxide (21-33) mmol/L Anion Gap (10-20) BUN (7-21) mg/dL Creatinine (0.8-1.5) mg/dl Est GFR ( Amer) Est GFR (Non-Af Amer) POC Glucose (mg/dL) 111 H (65-110) mg/dL Random Glucose (70-110) mg/dL Calcium (8.4-10.5) mg/dL Phosphorus (2.5-4.5) mg/dL Magnesium (1.7-2.2) mg/dL Total Bilirubin (0.2-1.3) mg/dL AST (17-59) U/L ALT (7-56) U/L Alkaline Phosphatase (38-126) U/L Troponin I ng/mL Total Protein (5.8-8.3) g/dL Albumin (3.0-4.8) g/dL Globulin gm/dL Albumin/Globulin Ratio (1.1-1.8) Procalcitonin (0.19-0.49) NG/ML Arterial Blood Potassium (3.6-5.2) mmol/L Venous Blood Potassium (3.6-5.2) mmol/L Urine Color (YELLOW) Urine Appearance (CLEAR) Urine pH (4.7-8.0) Ur Specific [place] (1.005-1.035) Urine Protein (<30 mg/dL) mg/dL Urine Glucose (UA) (NEGATIVE) mg/dL Urine Ketones (NEGATIVE) mg/dL Urine Blood (NEGATIVE) Urine Nitrate (NEGATIVE) Urine Bilirubin (NEGATIVE) Urine Urobilinogen (<1 E.U./dL) E.U./dL Ur Leukocyte Esterase (NEGATIVE) Qasim/uL Urine RBC (0-2) /hpf Urine WBC (0-6) /hpf Ur Epithelial Cells (0-5) /hpf Urine Bacteria (NEG) Blood Type A NEGATIVE Antibody Screen Negative Crossmatch See Detail BBK History Checked Patient has bt Laboratory Results - last 24 hr 01/01/18 01/01/18 01/01/18 07:19 07:45 14:20 WBC 25.1 H* RBC 4.18 Hgb 12.0 L Hct 37.8 L MCV 90.4 D MCH 28.7 MCHC 31.7 RDW 14.6 H Plt Count 184 MPV 9.6 Gran % 76.8 H Lymph % (Auto) 15.7 L [place] % (Auto) 6.7 H Eos % (Auto) 0.6 L Baso % (Auto) 0.2 Gran # 19.27 H Lymph # (Auto) 3.9 H [place] # (Auto) 1.7 H Eos # (Auto) 0.2 Baso # (Auto) 0.04 Neutrophils % (Manual) 76 H Lymphocytes % (Manual) 17 L Monocytes % (Manual) 3 Eosinophils % (Manual) 2 Metamyelocytes % 2 Platelet Evaluation Normal pCO2 pO2 HCO3 ABG pH ABG Total CO2 ABG O2 Saturation ABG Base Excess ABG Potassium VBG pH VBG pCO2 VBG HCO3 VBG Total CO2 VBG O2 Sat (Calc) VBG Base Excess VBG Potassium Glucose Lactate Mechanical Rate FiO2 Tidal Volume PEEP Sodium Potassium Chloride Carbon Dioxide Anion Gap BUN Creatinine Est GFR ( Amer) Est GFR (Non-Af Amer) POC Glucose (mg/dL) 111 H Random Glucose Calcium Phosphorus Magnesium Total Bilirubin AST ALT Alkaline Phosphatase Troponin I Total Protein Albumin Globulin Albumin/Globulin Ratio Procalcitonin Arterial Blood Potassium Venous Blood Potassium Urine Color Urine Appearance Urine pH Ur Specific [place] Urine Protein Urine Glucose (UA) Urine Ketones Urine Blood Urine Nitrate Urine Bilirubin Urine Urobilinogen Ur Leukocyte Esterase Urine RBC Urine WBC Ur Epithelial Cells Urine Bacteria Blood Type A NEGATIVE Antibody Screen Negative Crossmatch See Detail BBK History Checked Patient has bt 01/01/18 01/01/18 01/01/18 14:20 14:20 16:00 WBC RBC Hgb Hct MCV MCH MCHC RDW Plt Count MPV Gran % Lymph % (Auto) [place] % (Auto) Eos % (Auto) Baso % (Auto) Gran # Lymph # (Auto) [place] # (Auto) Eos # (Auto) Baso # (Auto) Neutrophils % (Manual) Lymphocytes % (Manual) Monocytes % (Manual) Eosinophils % (Manual) Metamyelocytes % Platelet Evaluation pCO2 pO2 HCO3 ABG pH ABG Total CO2 ABG O2 Saturation ABG Base Excess ABG Potassium VBG pH VBG pCO2 VBG HCO3 VBG Total CO2 VBG O2 Sat (Calc) VBG Base Excess VBG Potassium Glucose Lactate Mechanical Rate FiO2 Tidal Volume PEEP Sodium 141 Potassium 4.3 Chloride 108 H Carbon Dioxide 27 Anion Gap 10 BUN 10 Creatinine 1.0 Est GFR ( Amer) > 60 Est GFR (Non-Af Amer) > 60 POC Glucose (mg/dL) Random Glucose 200 H Calcium 7.7 L Phosphorus 5.6 H Magnesium 1.8 Total Bilirubin AST ALT Alkaline Phosphatase Troponin I < 0.01 Total Protein Albumin Globulin Albumin/Globulin Ratio Procalcitonin 0.14 L Arterial Blood Potassium Venous Blood Potassium Urine Color Urine Appearance Urine pH Ur Specific [place] Urine Protein Urine Glucose (UA) Urine Ketones Urine Blood Urine Nitrate Urine Bilirubin Urine Urobilinogen Ur Leukocyte Esterase Urine RBC Urine WBC Ur Epithelial Cells Urine Bacteria Blood Type Antibody Screen Crossmatch BBK History Checked 01/01/18 01/01/18 01/01/18 16:11 16:32 21:28 WBC RBC Hgb Hct MCV MCH MCHC RDW Plt Count MPV Gran % Lymph % (Auto) [place] % (Auto) Eos % (Auto) Baso % (Auto) Gran # Lymph # (Auto) [place] # (Auto) Eos # (Auto) Baso # (Auto) Neutrophils % (Manual) Lymphocytes % (Manual) Monocytes % (Manual) Eosinophils % (Manual) Metamyelocytes % Platelet Evaluation pCO2 44 pO2 145.0 H HCO3 20.7 L ABG pH 7.28 L ABG Total CO2 22.1 ABG O2 Saturation 99.6 H ABG Base Excess -6.0 L ABG Potassium 3.9 VBG pH VBG pCO2 VBG HCO3 VBG Total CO2 VBG O2 Sat (Calc) VBG Base Excess VBG Potassium Glucose 207 H Lactate 4.0 H* Mechanical Rate 20 FiO2 60.0 Tidal Volume 350 PEEP 5 Sodium 138.0 Potassium Chloride 109.0 H Carbon Dioxide Anion Gap BUN Creatinine Est GFR ( Amer) Est GFR (Non-Af Amer) POC Glucose (mg/dL) 223 H 207 H Random Glucose Calcium Phosphorus Magnesium Total Bilirubin AST ALT Alkaline Phosphatase Troponin I Total Protein Albumin Globulin Albumin/Globulin Ratio Procalcitonin Arterial Blood Potassium 3.9 Venous Blood Potassium Urine Color Urine Appearance Urine pH Ur Specific [place] Urine Protein Urine Glucose (UA) Urine Ketones Urine Blood Urine Nitrate Urine Bilirubin Urine Urobilinogen Ur Leukocyte Esterase Urine RBC Urine WBC Ur Epithelial Cells Urine Bacteria Blood Type Antibody Screen Crossmatch BBK History Checked 01/01/18 01/01/18 01/02/18 22:14 23:30 01:25 WBC RBC Hgb Hct MCV MCH MCHC RDW Plt Count MPV Gran % Lymph % (Auto) [place] % (Auto) Eos % (Auto) Baso % (Auto) Gran # Lymph # (Auto) [place] # (Auto) Eos # (Auto) Baso # (Auto) Neutrophils % (Manual) Lymphocytes % (Manual) Monocytes % (Manual) Eosinophils % (Manual) Metamyelocytes % Platelet Evaluation pCO2 pO2 53 50 HCO3 ABG pH ABG Total CO2 ABG O2 Saturation ABG Base Excess ABG Potassium VBG pH 7.25 L 7.29 L VBG pCO2 48.0 48.0 VBG HCO3 21.0 23.1 VBG Total CO2 22.5 24.6 VBG O2 Sat (Calc) 89.7 H 88.5 H VBG Base Excess -6.4 L -3.8 L VBG Potassium 4.1 4.4 Glucose 227 H 203 H Lactate 5.6 H* 4.3 H* Mechanical Rate FiO2 21.0 21.0 Tidal Volume PEEP Sodium 139.0 139.0 Potassium Chloride 107.0 109.0 H Carbon Dioxide Anion Gap BUN Creatinine Est GFR ( Amer) Est GFR (Non-Af Amer) POC Glucose (mg/dL) Random Glucose Calcium Phosphorus Magnesium Total Bilirubin AST ALT Alkaline Phosphatase Troponin I Total Protein Albumin Globulin Albumin/Globulin Ratio Procalcitonin Arterial Blood Potassium Venous Blood Potassium 4.1 4.4 Urine Color Yellow Urine Appearance Clear Urine pH 6.0 Ur Specific [place] >= 1.030 Urine Protein Negative Urine Glucose (UA) 100 H Urine Ketones Negative Urine Blood Moderate H Urine Nitrate Negative Urine Bilirubin Negative Urine Urobilinogen 0.2 Ur Leukocyte Esterase Negative Urine RBC 10 - 15 Urine WBC 0 - 2 Ur Epithelial Cells 0 - 2 Urine Bacteria Rare Blood Type Antibody Screen Crossmatch BBK History Checked 01/02/18 01/02/18 01/02/18 06:10 06:10 06:10 WBC 14.8 H D RBC 3.27 L Hgb 9.6 L D Hct 28.6 L MCV 87.5 MCH 29.4 MCHC 33.6 RDW 14.8 H Plt Count 132 MPV 9.5 Gran % 87.9 H Lymph % (Auto) 7.7 L [place] % (Auto) 4.3 Eos % (Auto) 0.0 L Baso % (Auto) 0.1 Gran # 13.00 H Lymph # (Auto) 1.1 L [place] # (Auto) 0.6 Eos # (Auto) 0.0 Baso # (Auto) 0.01 Neutrophils % (Manual) Lymphocytes % (Manual) Monocytes % (Manual) Eosinophils % (Manual) Metamyelocytes % Platelet Evaluation pCO2 pO2 HCO3 ABG pH ABG Total CO2 ABG O2 Saturation ABG Base Excess ABG Potassium VBG pH VBG pCO2 VBG HCO3 VBG Total CO2 VBG O2 Sat (Calc) VBG Base Excess VBG Potassium Glucose Lactate Mechanical Rate FiO2 Tidal Volume PEEP Sodium 139 Potassium 3.8 Chloride 110 H Carbon Dioxide 26 Anion Gap 8 L BUN 10 Creatinine 1.0 Est GFR ( Amer) > 60 Est GFR (Non-Af Amer) > 60 POC Glucose (mg/dL) Random Glucose 172 H Calcium 7.4 L Phosphorus 2.7 Magnesium 1.7 Total Bilirubin 1.3 AST 26 ALT 33 Alkaline Phosphatase 75 Troponin I 0.28 H* D Total Protein 5.1 L Albumin 2.5 L Globulin 2.6 Albumin/Globulin Ratio 1.0 L Procalcitonin Arterial Blood Potassium Venous Blood Potassium Urine Color Urine Appearance Urine pH Ur Specific [place] Urine Protein Urine Glucose (UA) Urine Ketones Urine Blood Urine Nitrate Urine Bilirubin Urine Urobilinogen Ur Leukocyte Esterase Urine RBC Urine WBC Ur Epithelial Cells Urine Bacteria Blood Type Antibody Screen Crossmatch BBK History Checked EKG/Cardiology Studies: Cardiology / EKG Studies 01/01/18 14:45 EKG [ELECTROCARDIOGRAM] Stat Comment: Reason For Exam: post op desat PRE OP:: N Fingerstick Blood Sugar Results: 166 Review of Systems - Review of Systems Review of Systems: per [facility] Critical Care Progress Note - Nutrition Nutrition: Nutrition Category Date Time Status NPO Diet [DIET] Diets 01/01/18 Breakfast Ordered Assessment/Plan - Assessment and Plan (Free Text) Assessment: 77 y/o M with PMHx of perforated diverticulitis s/p nishant procedure, pod1 s/p colostomy reversal, stage 4 mantle cell lymphoma, lung ca s/p wedge resection, cad s/p stents x 4, dm, htn, copd admitted to ICU for post-operative respiratory failure s/p extubation. Rapid response was called in PACU as patient was not breathing. He was found to be in hypercapnic respiratory acidosis. He was subsequently sedated, intubated and placed on ventilator overnight. Plan: Neuro: Alert & awake Intubated, on PS ventilator communicating non-verbally with writing no FND Precedex for anxiety Cardio: Normotensive maintain map >65 Tachycardic beta-blockers held elevated troponin. trend Pulmonary: Respiratory acidosis Intubated on pressure support repeat abg extubate upon improvement in abg, and when pt meets weening protocol hob elevated to 35 degrees oral hygiene GI: s/o colostomy reversal abdominal dressing in place. KERI draining serosanguinous fluid No signs of acute abdomen, active bleeding : urine output past 12 hrs 275mls morales inplace draining non-bloody urine ID: lactate of 4.3 on most recent abg meropenem/vanc per ID recs Case seen, examined and discussed with attending physician, Dr. Castillo <Bam Castillo - Last Filed: 01/02/18 15:39> CCU Objective - Vital Signs / Intake & Output Vital Signs (Last 4 hours): Vital Signs Pulse BP 01/02/18 14:00 98 H 01/02/18 13:02 112 H 103/56 L Intake and Output (Last 8hrs): Intake & Output 01/02/18 01/02/18 01/02/18 06:59 14:59 22:59 Intake Total 1200 119.0 Output Total 275 Balance 925 119.0 Weight 148 lb 3.2 oz Intake: IV 1200 119.0 antibiotics 300 right chest implanted 900 port Output: Urine 275 Urethral (Morales) 275 - Medications Active Medications: Active Medications Generic Name Dose Route Start Last Admin Trade Name Freq PRN Reason Stop Dose Admin Acetaminophen 650 mg 12/30/17 17:54 Tylenol 325mg Tab PO Q6H PRN Fever >100.4 F Albuterol/Ipratropium 3 ml 01/02/18 14:00 01/02/18 14:06 Duoneb 3 Mg/0.5 Mg (3 Ml) Ud IH 3 ml [id number] ALEX Administration Heparin Sodium (Porcine) 5,000 units 12/30/17 17:45 12/31/17 17:34 Heparin SC Not Given Q12H ALEX Protocol Hydromorphone HCl 0.5 mg 01/01/18 13:53 01/02/18 13:01 Dilaudid IVP 0.5 mg Q3 PRN Administration Arthritis Acetaminophen 1,000 mg in 100 mls @ 400 mls/hr 01/01/18 15:15 Ofirmev IVPB 01/03/18 03:29 Q6H ALEX Propofol 1,000 mg in 100 mls @ 2.014 mls/hr 01/01/18 16:41 01/02/18 09:30 Diprivan IV 0 mcg/kg/min .Q24H PRN 0 mls/hr TITRATE PER MD ORDER Titration Protocol 5 MCG/KG/MIN Sodium Chloride 1,000 mls @ 75 mls/hr 01/01/18 16:45 01/02/18 10:07 Sodium Chloride 0.9% IV 75 mls/hr .[id number] ALEX Administration Meropenem 1 gm in 50 mls @ 100 mls/hr 01/01/18 22:00 01/02/18 13:03 Merrem Iv 1 Gm Premix IVPB 01/10/18 22:01 100 mls/hr Q8 ALEX Administration Protocol Vancomycin HCl 1 gm in 250 mls @ 167 mls/hr 01/01/18 22:00 01/02/18 10:07 Vancomycin 1gm IVPB 01/10/18 22:01 167 mls/hr Q12 ALEX Administration Protocol Dexmedetomidine HCl 400 mcg in 100 mls @ 3.361 mls/hr 01/02/18 09:56 01/02/18 14:30 Precedex 400mcg/100ml IV 0 mcg/kg/hr .Q24H PRN 0 mls/hr Agitation Titration Protocol 0.2 MCG/KG/HR Insulin Human Regular 0 units 12/30/17 22:00 01/02/18 11:20 Humulin R Low SC Not Given ACHS ALEX Protocol Metoprolol Tartrate 25 mg 12/31/17 10:00 12/31/17 09:41 Lopressor PO 25 mg DAILY ALEX Administration Metoprolol Tartrate 12.5 mg 12/30/17 18:00 12/31/17 17:26 Lopressor PO 12.5 mg QPM ALEX Administration Montelukast Sodium 10 mg 12/30/17 18:00 12/31/17 17:26 Singulair PO 10 mg QPM ALEX Administration Nitroglycerin 0.5 ea 01/02/18 18:00 Nitro-Bid 2% Oint TOP Q6 ALEX Non-Formulary Medication 8 mg 12/30/17 19:26 12/31/17 17:27 Rapaflo PO 8 mg QPM ALEX Administration Non-Formulary Medication 500 mg 12/30/17 19:28 12/31/17 17:28 Ranexa PO 500 mg BID ALEX Administration Ondansetron HCl 4 mg 01/01/18 13:58 Zofran Inj IVP Q4H PRN Nausea/Vomiting Oxybutynin Chloride 5 mg 12/30/17 22:00 12/31/17 22:36 Ditropan Tab PO 5 mg HS ALXE Administration Pantoprazole Sodium 40 mg 01/03/18 10:00 Protonix Inj IVP DAILY ALEX - Patient Studies Lab Studies: Lab Studies 01/02/18 01/02/18 01/02/18 Range/Units 14:00 14:00 13:30 WBC (4.5-11.0) 10^3/uL RBC (3.5-6.1) 10^6/uL Hgb (14.0-18.0) g/dL Hct (42.0-52.0) % MCV (80.0-105.0) fl MCH (25.0-35.0) pg MCHC (31.0-37.0) g/dl RDW (11.5-14.5) % Plt Count (120.0-450.0) 10^3/uL MPV (7.0-11.0) fl Gran % (50.0-68.0) % Lymph % (Auto) (22.0-35.0) % [place] % (Auto) (1.0-6.0) % Eos % (Auto) (1.5-5.0) % Baso % (Auto) (0.0-3.0) % Gran # (1.4-6.5) Lymph # (Auto) (1.2-3.4) [place] # (Auto) (0.1-0.6) Eos # (Auto) (0.0-0.7) Baso # (Auto) (0.0-2.0) K/mm3 pCO2 45 (35-45) mm/Hg pO2 95.0 (80-100) mm/Hg HCO3 22.7 (21-28) mmol/L ABG pH 7.31 L (7.35-7.45) ABG Total CO2 24.1 (22-28) mmol.L ABG O2 Saturation 99.2 H (95-98) % ABG O2 Content (15-23) ML/dl ABG Base Excess -3.7 L (-2.0-3.0) mmol/L ABG Hemoglobin (11.7-17.4) g/dL ABG Carboxyhemoglobin (0.5-1.5) % POC ABG HHb (Measured) (0-5) % ABG Methemoglobin (0.0-3.0) % ABG O2 Capacity (16-24) mL/dl ABG Potassium 4.0 (3.6-5.2) mmol/L VBG pH (7.32-7.43) VBG pCO2 (40-60) VBG HCO3 (21-28) mmol/l VBG Total CO2 (22-28) mmol.L VBG O2 Sat (Calc) (40-65) % VBG Base Excess (0.0-2.0) mmol/L VBG Potassium (3.6-5.2) mmol/L Hgb O2 Saturation (95.0-98.0) % Sodium 140.0 (132-148) mmol/L Chloride 113.0 H (98-107) mmol/L Glucose 148 H (75-110) mg/dl Lactate 0.9 (0.7-2.1) mmol/L Mechanical Rate FiO2 40.0 % Tidal Volume PEEP 5 Pressure Support 5 Potassium (3.6-5.0) mmol/L Carbon Dioxide (21-33) mmol/L Anion Gap (10-20) BUN (7-21) mg/dL Creatinine (0.8-1.5) mg/dl Est GFR ( Amer) Est GFR (Non-Af Amer) POC Glucose (mg/dL) (65-110) mg/dL Random Glucose (70-110) mg/dL Calcium (8.4-10.5) mg/dL Phosphorus (2.5-4.5) mg/dL Magnesium (1.7-2.2) mg/dL Total Bilirubin (0.2-1.3) mg/dL AST (17-59) U/L ALT (7-56) U/L Alkaline Phosphatase (38-126) U/L Troponin I ng/mL Total Protein (5.8-8.3) g/dL Albumin (3.0-4.8) g/dL Globulin gm/dL Albumin/Globulin Ratio (1.1-1.8) Procalcitonin (0.19-0.49) NG/ML Arterial Blood Potassium 4.0 (3.6-5.2) mmol/L Venous Blood Potassium (3.6-5.2) mmol/L Urine Color Yellow (YELLOW) Urine Appearance Clear (CLEAR) Urine pH 6.0 (4.7-8.0) Ur Specific [place] 1.025 (1.005-1.035) Urine Protein Negative (<30 mg/dL) mg/dL Urine Glucose (UA) Negative (NEGATIVE) mg/dL Urine Ketones Trace H (NEGATIVE) mg/dL Urine Blood Small H (NEGATIVE) Urine Nitrate Negative (NEGATIVE) Urine Bilirubin Negative (NEGATIVE) Urine Urobilinogen 0.2 (<1 E.U./dL) E.U./dL Ur Leukocyte Esterase Negative (NEGATIVE) Qasim/uL Urine RBC 10 - 15 (0-2) /hpf Urine WBC 0 - 2 (0-6) /hpf Ur Epithelial Cells 0 - 2 (0-5) /hpf Amorphous Sediment Few Urine Bacteria Many (NEG) Urine Other Uyeast Ur Random Creatinine 142 mg/dL Ur Random Sodium 37 meq/L 01/02/18 01/02/18 01/02/18 Range/Units 11:10 06:10 06:10 WBC (4.5-11.0) 10^3/uL RBC (3.5-6.1) 10^6/uL Hgb (14.0-18.0) g/dL Hct (42.0-52.0) % MCV (80.0-105.0) fl MCH (25.0-35.0) pg MCHC (31.0-37.0) g/dl RDW (11.5-14.5) % Plt Count (120.0-450.0) 10^3/uL MPV (7.0-11.0) fl Gran % (50.0-68.0) % Lymph % (Auto) (22.0-35.0) % [place] % (Auto) (1.0-6.0) % Eos % (Auto) (1.5-5.0) % Baso % (Auto) (0.0-3.0) % Gran # (1.4-6.5) Lymph # (Auto) (1.2-3.4) [place] # (Auto) (0.1-0.6) Eos # (Auto) (0.0-0.7) Baso # (Auto) (0.0-2.0) K/mm3 pCO2 46 H (35-45) mm/Hg pO2 209.0 H (80-100) mm/Hg HCO3 23.2 (21-28) mmol/L ABG pH 7.31 L (7.35-7.45) ABG Total CO2 24.6 (22-28) mmol.L ABG O2 Saturation 100.0 H (95-98) % ABG O2 Content 12.1 L (15-23) ML/dl ABG Base Excess -3.0 L (-2.0-3.0) mmol/L ABG Hemoglobin 8.4 L (11.7-17.4) g/dL ABG Carboxyhemoglobin 1.6 H (0.5-1.5) % POC ABG HHb (Measured) 0 (0-5) % ABG Methemoglobin 0.8 (0.0-3.0) % ABG O2 Capacity 12.1 L (16-24) mL/dl ABG Potassium (3.6-5.2) mmol/L VBG pH (7.32-7.43) VBG pCO2 (40-60) VBG HCO3 (21-28) mmol/l VBG Total CO2 (22-28) mmol.L VBG O2 Sat (Calc) (40-65) % VBG Base Excess (0.0-2.0) mmol/L VBG Potassium (3.6-5.2) mmol/L Hgb O2 Saturation 97.6 (95.0-98.0) % Sodium 139 (132-148) mmol/L Chloride 110 H (98-107) mmol/L Glucose (75-110) mg/dl Lactate (0.7-2.1) mmol/L Mechanical Rate FiO2 60.0 % Tidal Volume PEEP Pressure Support Potassium 3.8 (3.6-5.0) mmol/L Carbon Dioxide 26 (21-33) mmol/L Anion Gap 8 L (10-20) BUN 10 (7-21) mg/dL Creatinine 1.0 (0.8-1.5) mg/dl Est GFR ( Amer) > 60 Est GFR (Non-Af Amer) > 60 POC Glucose (mg/dL) (65-110) mg/dL Random Glucose 172 H (70-110) mg/dL Calcium 7.4 L (8.4-10.5) mg/dL Phosphorus 2.7 (2.5-4.5) mg/dL Magnesium 1.7 (1.7-2.2) mg/dL Total Bilirubin 1.3 (0.2-1.3) mg/dL AST 26 (17-59) U/L ALT 33 (7-56) U/L Alkaline Phosphatase 75 (38-126) U/L Troponin I 0.28 H* D ng/mL Total Protein 5.1 L (5.8-8.3) g/dL Albumin 2.5 L (3.0-4.8) g/dL Globulin 2.6 gm/dL Albumin/Globulin Ratio 1.0 L (1.1-1.8) Procalcitonin (0.19-0.49) NG/ML Arterial Blood Potassium (3.6-5.2) mmol/L Venous Blood Potassium (3.6-5.2) mmol/L Urine Color (YELLOW) Urine Appearance (CLEAR) Urine pH (4.7-8.0) Ur Specific [place] (1.005-1.035) Urine Protein (<30 mg/dL) mg/dL Urine Glucose (UA) (NEGATIVE) mg/dL Urine Ketones (NEGATIVE) mg/dL Urine Blood (NEGATIVE) Urine Nitrate (NEGATIVE) Urine Bilirubin (NEGATIVE) Urine Urobilinogen (<1 E.U./dL) E.U./dL Ur Leukocyte Esterase (NEGATIVE) Qasim/uL Urine RBC (0-2) /hpf Urine WBC (0-6) /hpf Ur Epithelial Cells (0-5) /hpf Amorphous Sediment Urine Bacteria (NEG) Urine Other Ur Random Creatinine mg/dL Ur Random Sodium meq/L 01/02/18 01/02/18 01/01/18 Range/Units 06:10 01:25 23:30 WBC 14.8 H D (4.5-11.0) 10^3/uL RBC 3.27 L (3.5-6.1) 10^6/uL Hgb 9.6 L D (14.0-18.0) g/dL Hct 28.6 L (42.0-52.0) % MCV 87.5 (80.0-105.0) fl MCH 29.4 (25.0-35.0) pg MCHC 33.6 (31.0-37.0) g/dl RDW 14.8 H (11.5-14.5) % Plt Count 132 (120.0-450.0) 10^3/uL MPV 9.5 (7.0-11.0) fl Gran % 87.9 H (50.0-68.0) % Lymph % (Auto) 7.7 L (22.0-35.0) % [place] % (Auto) 4.3 (1.0-6.0) % Eos % (Auto) 0.0 L (1.5-5.0) % Baso % (Auto) 0.1 (0.0-3.0) % Gran # 13.00 H (1.4-6.5) Lymph # (Auto) 1.1 L (1.2-3.4) [place] # (Auto) 0.6 (0.1-0.6) Eos # (Auto) 0.0 (0.0-0.7) Baso # (Auto) 0.01 (0.0-2.0) K/mm3 pCO2 (35-45) mm/Hg pO2 50 (80-100) mm/Hg HCO3 (21-28) mmol/L ABG pH (7.35-7.45) ABG Total CO2 (22-28) mmol.L ABG O2 Saturation (95-98) % ABG O2 Content (15-23) ML/dl ABG Base Excess (-2.0-3.0) mmol/L ABG Hemoglobin (11.7-17.4) g/dL ABG Carboxyhemoglobin (0.5-1.5) % POC ABG HHb (Measured) (0-5) % ABG Methemoglobin (0.0-3.0) % ABG O2 Capacity (16-24) mL/dl ABG Potassium (3.6-5.2) mmol/L VBG pH 7.29 L (7.32-7.43) VBG pCO2 48.0 (40-60) VBG HCO3 23.1 (21-28) mmol/l VBG Total CO2 24.6 (22-28) mmol.L VBG O2 Sat (Calc) 88.5 H (40-65) % VBG Base Excess -3.8 L (0.0-2.0) mmol/L VBG Potassium 4.4 (3.6-5.2) mmol/L Hgb O2 Saturation (95.0-98.0) % Sodium 139.0 (132-148) mmol/L Chloride 109.0 H (98-107) mmol/L Glucose 203 H (75-110) mg/dl Lactate 4.3 H* (0.7-2.1) mmol/L Mechanical Rate FiO2 21.0 % Tidal Volume PEEP Pressure Support Potassium (3.6-5.0) mmol/L Carbon Dioxide (21-33) mmol/L Anion Gap (10-20) BUN (7-21) mg/dL Creatinine (0.8-1.5) mg/dl Est GFR ( Amer) Est GFR (Non-Af Amer) POC Glucose (mg/dL) (65-110) mg/dL Random Glucose (70-110) mg/dL Calcium (8.4-10.5) mg/dL Phosphorus (2.5-4.5) mg/dL Magnesium (1.7-2.2) mg/dL Total Bilirubin (0.2-1.3) mg/dL AST (17-59) U/L ALT (7-56) U/L Alkaline Phosphatase (38-126) U/L Troponin I ng/mL Total Protein (5.8-8.3) g/dL Albumin (3.0-4.8) g/dL Globulin gm/dL Albumin/Globulin Ratio (1.1-1.8) Procalcitonin (0.19-0.49) NG/ML Arterial Blood Potassium (3.6-5.2) mmol/L Venous Blood Potassium 4.4 (3.6-5.2) mmol/L Urine Color Yellow (YELLOW) Urine Appearance Clear (CLEAR) Urine pH 6.0 (4.7-8.0) Ur Specific [place] >= 1.030 (1.005-1.035) Urine Protein Negative (<30 mg/dL) mg/dL Urine Glucose (UA) 100 H (NEGATIVE) mg/dL Urine Ketones Negative (NEGATIVE) mg/dL Urine Blood Moderate H (NEGATIVE) Urine Nitrate Negative (NEGATIVE) Urine Bilirubin Negative (NEGATIVE) Urine Urobilinogen 0.2 (<1 E.U./dL) E.U./dL Ur Leukocyte Esterase Negative (NEGATIVE) Qasim/uL Urine RBC 10 - 15 (0-2) /hpf Urine WBC 0 - 2 (0-6) /hpf Ur Epithelial Cells 0 - 2 (0-5) /hpf Amorphous Sediment Urine Bacteria Rare (NEG) Urine Other Ur Random Creatinine mg/dL Ur Random Sodium meq/L 01/01/18 01/01/18 01/01/18 Range/Units 22:14 21:28 16:32 WBC (4.5-11.0) 10^3/uL RBC (3.5-6.1) 10^6/uL Hgb (14.0-18.0) g/dL Hct (42.0-52.0) % MCV (80.0-105.0) fl MCH (25.0-35.0) pg MCHC (31.0-37.0) g/dl RDW (11.5-14.5) % Plt Count (120.0-450.0) 10^3/uL MPV (7.0-11.0) fl Gran % (50.0-68.0) % Lymph % (Auto) (22.0-35.0) % [place] % (Auto) (1.0-6.0) % Eos % (Auto) (1.5-5.0) % Baso % (Auto) (0.0-3.0) % Gran # (1.4-6.5) Lymph # (Auto) (1.2-3.4) [place] # (Auto) (0.1-0.6) Eos # (Auto) (0.0-0.7) Baso # (Auto) (0.0-2.0) K/mm3 pCO2 (35-45) mm/Hg pO2 53 (80-100) mm/Hg HCO3 (21-28) mmol/L ABG pH (7.35-7.45) ABG Total CO2 (22-28) mmol.L ABG O2 Saturation (95-98) % ABG O2 Content (15-23) ML/dl ABG Base Excess (-2.0-3.0) mmol/L ABG Hemoglobin (11.7-17.4) g/dL ABG Carboxyhemoglobin (0.5-1.5) % POC ABG HHb (Measured) (0-5) % ABG Methemoglobin (0.0-3.0) % ABG O2 Capacity (16-24) mL/dl ABG Potassium (3.6-5.2) mmol/L VBG pH 7.25 L (7.32-7.43) VBG pCO2 48.0 (40-60) VBG HCO3 21.0 (21-28) mmol/l VBG Total CO2 22.5 (22-28) mmol.L VBG O2 Sat (Calc) 89.7 H (40-65) % VBG Base Excess -6.4 L (0.0-2.0) mmol/L VBG Potassium 4.1 (3.6-5.2) mmol/L Hgb O2 Saturation (95.0-98.0) % Sodium 139.0 (132-148) mmol/L Chloride 107.0 (98-107) mmol/L Glucose 227 H (75-110) mg/dl Lactate 5.6 H* (0.7-2.1) mmol/L Mechanical Rate FiO2 21.0 % Tidal Volume PEEP Pressure Support Potassium (3.6-5.0) mmol/L Carbon Dioxide (21-33) mmol/L Anion Gap (10-20) BUN (7-21) mg/dL Creatinine (0.8-1.5) mg/dl Est GFR ( Amer) Est GFR (Non-Af Amer) POC Glucose (mg/dL) 207 H 223 H (65-110) mg/dL Random Glucose (70-110) mg/dL Calcium (8.4-10.5) mg/dL Phosphorus (2.5-4.5) mg/dL Magnesium (1.7-2.2) mg/dL Total Bilirubin (0.2-1.3) mg/dL AST (17-59) U/L ALT (7-56) U/L Alkaline Phosphatase (38-126) U/L Troponin I ng/mL Total Protein (5.8-8.3) g/dL Albumin (3.0-4.8) g/dL Globulin gm/dL Albumin/Globulin Ratio (1.1-1.8) Procalcitonin (0.19-0.49) NG/ML Arterial Blood Potassium (3.6-5.2) mmol/L Venous Blood Potassium 4.1 (3.6-5.2) mmol/L Urine Color (YELLOW) Urine Appearance (CLEAR) Urine pH (4.7-8.0) Ur Specific [place] (1.005-1.035) Urine Protein (<30 mg/dL) mg/dL Urine Glucose (UA) (NEGATIVE) mg/dL Urine Ketones (NEGATIVE) mg/dL Urine Blood (NEGATIVE) Urine Nitrate (NEGATIVE) Urine Bilirubin (NEGATIVE) Urine Urobilinogen (<1 E.U./dL) E.U./dL Ur Leukocyte Esterase (NEGATIVE) Qasim/uL Urine RBC (0-2) /hpf Urine WBC (0-6) /hpf Ur Epithelial Cells (0-5) /hpf Amorphous Sediment Urine Bacteria (NEG) Urine Other Ur Random Creatinine mg/dL Ur Random Sodium meq/L 01/01/18 01/01/18 01/01/18 Range/Units 16:11 16:00 14:20 WBC (4.5-11.0) 10^3/uL RBC (3.5-6.1) 10^6/uL Hgb (14.0-18.0) g/dL Hct (42.0-52.0) % MCV (80.0-105.0) fl MCH (25.0-35.0) pg MCHC (31.0-37.0) g/dl RDW (11.5-14.5) % Plt Count (120.0-450.0) 10^3/uL MPV (7.0-11.0) fl Gran % (50.0-68.0) % Lymph % (Auto) (22.0-35.0) % [place] % (Auto) (1.0-6.0) % Eos % (Auto) (1.5-5.0) % Baso % (Auto) (0.0-3.0) % Gran # (1.4-6.5) Lymph # (Auto) (1.2-3.4) [place] # (Auto) (0.1-0.6) Eos # (Auto) (0.0-0.7) Baso # (Auto) (0.0-2.0) K/mm3 pCO2 44 (35-45) mm/Hg pO2 145.0 H (80-100) mm/Hg HCO3 20.7 L (21-28) mmol/L ABG pH 7.28 L (7.35-7.45) ABG Total CO2 22.1 (22-28) mmol.L ABG O2 Saturation 99.6 H (95-98) % ABG O2 Content (15-23) ML/dl ABG Base Excess -6.0 L (-2.0-3.0) mmol/L ABG Hemoglobin (11.7-17.4) g/dL ABG Carboxyhemoglobin (0.5-1.5) % POC ABG HHb (Measured) (0-5) % ABG Methemoglobin (0.0-3.0) % ABG O2 Capacity (16-24) mL/dl ABG Potassium 3.9 (3.6-5.2) mmol/L VBG pH (7.32-7.43) VBG pCO2 (40-60) VBG HCO3 (21-28) mmol/l VBG Total CO2 (22-28) mmol.L VBG O2 Sat (Calc) (40-65) % VBG Base Excess (0.0-2.0) mmol/L VBG Potassium (3.6-5.2) mmol/L Hgb O2 Saturation (95.0-98.0) % Sodium 138.0 (132-148) mmol/L Chloride 109.0 H (98-107) mmol/L Glucose 207 H (75-110) mg/dl Lactate 4.0 H* (0.7-2.1) mmol/L Mechanical Rate 20 FiO2 60.0 % Tidal Volume 350 PEEP 5 Pressure Support Potassium (3.6-5.0) mmol/L Carbon Dioxide (21-33) mmol/L Anion Gap (10-20) BUN (7-21) mg/dL Creatinine (0.8-1.5) mg/dl Est GFR ( Amer) Est GFR (Non-Af Amer) POC Glucose (mg/dL) (65-110) mg/dL Random Glucose (70-110) mg/dL Calcium (8.4-10.5) mg/dL Phosphorus (2.5-4.5) mg/dL Magnesium (1.7-2.2) mg/dL Total Bilirubin (0.2-1.3) mg/dL AST (17-59) U/L ALT (7-56) U/L Alkaline Phosphatase (38-126) U/L Troponin I < 0.01 ng/mL Total Protein (5.8-8.3) g/dL Albumin (3.0-4.8) g/dL Globulin gm/dL Albumin/Globulin Ratio (1.1-1.8) Procalcitonin 0.14 L (0.19-0.49) NG/ML Arterial Blood Potassium 3.9 (3.6-5.2) mmol/L Venous Blood Potassium (3.6-5.2) mmol/L Urine Color (YELLOW) Urine Appearance (CLEAR) Urine pH (4.7-8.0) Ur Specific [place] (1.005-1.035) Urine Protein (<30 mg/dL) mg/dL Urine Glucose (UA) (NEGATIVE) mg/dL Urine Ketones (NEGATIVE) mg/dL Urine Blood (NEGATIVE) Urine Nitrate (NEGATIVE) Urine Bilirubin (NEGATIVE) Urine Urobilinogen (<1 E.U./dL) E.U./dL Ur Leukocyte Esterase (NEGATIVE) Qasim/uL Urine RBC (0-2) /hpf Urine WBC (0-6) /hpf Ur Epithelial Cells (0-5) /hpf Amorphous Sediment Urine Bacteria (NEG) Urine Other Ur Random Creatinine mg/dL Ur Random Sodium meq/L 01/01/18 Range/Units 07:19 WBC (4.5-11.0) 10^3/uL RBC (3.5-6.1) 10^6/uL Hgb (14.0-18.0) g/dL Hct (42.0-52.0) % MCV (80.0-105.0) fl MCH (25.0-35.0) pg MCHC (31.0-37.0) g/dl RDW (11.5-14.5) % Plt Count (120.0-450.0) 10^3/uL MPV (7.0-11.0) fl Gran % (50.0-68.0) % Lymph % (Auto) (22.0-35.0) % [place] % (Auto) (1.0-6.0) % Eos % (Auto) (1.5-5.0) % Baso % (Auto) (0.0-3.0) % Gran # (1.4-6.5) Lymph # (Auto) (1.2-3.4) [place] # (Auto) (0.1-0.6) Eos # (Auto) (0.0-0.7) Baso # (Auto) (0.0-2.0) K/mm3 pCO2 (35-45) mm/Hg pO2 (80-100) mm/Hg HCO3 (21-28) mmol/L ABG pH (7.35-7.45) ABG Total CO2 (22-28) mmol.L ABG O2 Saturation (95-98) % ABG O2 Content (15-23) ML/dl ABG Base Excess (-2.0-3.0) mmol/L ABG Hemoglobin (11.7-17.4) g/dL ABG Carboxyhemoglobin (0.5-1.5) % POC ABG HHb (Measured) (0-5) % ABG Methemoglobin (0.0-3.0) % ABG O2 Capacity (16-24) mL/dl ABG Potassium (3.6-5.2) mmol/L VBG pH (7.32-7.43) VBG pCO2 (40-60) VBG HCO3 (21-28) mmol/l VBG Total CO2 (22-28) mmol.L VBG O2 Sat (Calc) (40-65) % VBG Base Excess (0.0-2.0) mmol/L VBG Potassium (3.6-5.2) mmol/L Hgb O2 Saturation (95.0-98.0) % Sodium (132-148) mmol/L Chloride (98-107) mmol/L Glucose (75-110) mg/dl Lactate (0.7-2.1) mmol/L Mechanical Rate FiO2 % Tidal Volume PEEP Pressure Support Potassium (3.6-5.0) mmol/L Carbon Dioxide (21-33) mmol/L Anion Gap (10-20) BUN (7-21) mg/dL Creatinine (0.8-1.5) mg/dl Est GFR ( Amer) Est GFR (Non-Af Amer) POC Glucose (mg/dL) 111 H (65-110) mg/dL Random Glucose (70-110) mg/dL Calcium (8.4-10.5) mg/dL Phosphorus (2.5-4.5) mg/dL Magnesium (1.7-2.2) mg/dL Total Bilirubin (0.2-1.3) mg/dL AST (17-59) U/L ALT (7-56) U/L Alkaline Phosphatase (38-126) U/L Troponin I ng/mL Total Protein (5.8-8.3) g/dL Albumin (3.0-4.8) g/dL Globulin gm/dL Albumin/Globulin Ratio (1.1-1.8) Procalcitonin (0.19-0.49) NG/ML Arterial Blood Potassium (3.6-5.2) mmol/L Venous Blood Potassium (3.6-5.2) mmol/L Urine Color (YELLOW) Urine Appearance (CLEAR) Urine pH (4.7-8.0) Ur Specific [place] (1.005-1.035) Urine Protein (<30 mg/dL) mg/dL Urine Glucose (UA) (NEGATIVE) mg/dL Urine Ketones (NEGATIVE) mg/dL Urine Blood (NEGATIVE) Urine Nitrate (NEGATIVE) Urine Bilirubin (NEGATIVE) Urine Urobilinogen (<1 E.U./dL) E.U./dL Ur Leukocyte Esterase (NEGATIVE) Qasim/uL Urine RBC (0-2) /hpf Urine WBC (0-6) /hpf Ur Epithelial Cells (0-5) /hpf Amorphous Sediment Urine Bacteria (NEG) Urine Other Ur Random Creatinine mg/dL Ur Random Sodium meq/L Laboratory Results - last 24 hr 01/01/18 01/01/18 01/01/18 07:19 14:20 16:00 WBC RBC Hgb Hct MCV MCH MCHC RDW Plt Count MPV Gran % Lymph % (Auto) [place] % (Auto) Eos % (Auto) Baso % (Auto) Gran # Lymph # (Auto) [place] # (Auto) Eos # (Auto) Baso # (Auto) pCO2 pO2 HCO3 ABG pH ABG Total CO2 ABG O2 Saturation ABG O2 Content ABG Base Excess ABG Hemoglobin ABG Carboxyhemoglobin POC ABG HHb (Measured) ABG Methemoglobin ABG O2 Capacity ABG Potassium VBG pH VBG pCO2 VBG HCO3 VBG Total CO2 VBG O2 Sat (Calc) VBG Base Excess VBG Potassium Hgb O2 Saturation Sodium Chloride Glucose Lactate Mechanical Rate FiO2 Tidal Volume PEEP Pressure Support Potassium Carbon Dioxide Anion Gap BUN Creatinine Est GFR ( Amer) Est GFR (Non-Af Amer) POC Glucose (mg/dL) 111 H Random Glucose Calcium Phosphorus Magnesium Total Bilirubin AST ALT Alkaline Phosphatase Troponin I < 0.01 Total Protein Albumin Globulin Albumin/Globulin Ratio Procalcitonin 0.14 L Arterial Blood Potassium Venous Blood Potassium Urine Color Urine Appearance Urine pH Ur Specific [place] Urine Protein Urine Glucose (UA) Urine Ketones Urine Blood Urine Nitrate Urine Bilirubin Urine Urobilinogen Ur Leukocyte Esterase Urine RBC Urine WBC Ur Epithelial Cells Amorphous Sediment Urine Bacteria Urine Other Ur Random Creatinine Ur Random Sodium 01/01/18 01/01/18 01/01/18 16:11 16:32 21:28 WBC RBC Hgb Hct MCV MCH MCHC RDW Plt Count MPV Gran % Lymph % (Auto) [place] % (Auto) Eos % (Auto) Baso % (Auto) Gran # Lymph # (Auto) [place] # (Auto) Eos # (Auto) Baso # (Auto) pCO2 44 pO2 145.0 H HCO3 20.7 L ABG pH 7.28 L ABG Total CO2 22.1 ABG O2 Saturation 99.6 H ABG O2 Content ABG Base Excess -6.0 L ABG Hemoglobin ABG Carboxyhemoglobin POC ABG HHb (Measured) ABG Methemoglobin ABG O2 Capacity ABG Potassium 3.9 VBG pH VBG pCO2 VBG HCO3 VBG Total CO2 VBG O2 Sat (Calc) VBG Base Excess VBG Potassium Hgb O2 Saturation Sodium 138.0 Chloride 109.0 H Glucose 207 H Lactate 4.0 H* Mechanical Rate 20 FiO2 60.0 Tidal Volume 350 PEEP 5 Pressure Support Potassium Carbon Dioxide Anion Gap BUN Creatinine Est GFR ( Amer) Est GFR (Non-Af Amer) POC Glucose (mg/dL) 223 H 207 H Random Glucose Calcium Phosphorus Magnesium Total Bilirubin AST ALT Alkaline Phosphatase Troponin I Total Protein Albumin Globulin Albumin/Globulin Ratio Procalcitonin Arterial Blood Potassium 3.9 Venous Blood Potassium Urine Color Urine Appearance Urine pH Ur Specific [place] Urine Protein Urine Glucose (UA) Urine Ketones Urine Blood Urine Nitrate Urine Bilirubin Urine Urobilinogen Ur Leukocyte Esterase Urine RBC Urine WBC Ur Epithelial Cells Amorphous Sediment Urine Bacteria Urine Other Ur Random Creatinine Ur Random Sodium 01/01/18 01/01/18 01/02/18 22:14 23:30 01:25 WBC RBC Hgb Hct MCV MCH MCHC RDW Plt Count MPV Gran % Lymph % (Auto) [place] % (Auto) Eos % (Auto) Baso % (Auto) Gran # Lymph # (Auto) [place] # (Auto) Eos # (Auto) Baso # (Auto) pCO2 pO2 53 50 HCO3 ABG pH ABG Total CO2 ABG O2 Saturation ABG O2 Content ABG Base Excess ABG Hemoglobin ABG Carboxyhemoglobin POC ABG HHb (Measured) ABG Methemoglobin ABG O2 Capacity ABG Potassium VBG pH 7.25 L 7.29 L VBG pCO2 48.0 48.0 VBG HCO3 21.0 23.1 VBG Total CO2 22.5 24.6 VBG O2 Sat (Calc) 89.7 H 88.5 H VBG Base Excess -6.4 L -3.8 L VBG Potassium 4.1 4.4 Hgb O2 Saturation Sodium 139.0 139.0 Chloride 107.0 109.0 H Glucose 227 H 203 H Lactate 5.6 H* 4.3 H* Mechanical Rate FiO2 21.0 21.0 Tidal Volume PEEP Pressure Support Potassium Carbon Dioxide Anion Gap BUN Creatinine Est GFR ( Amer) Est GFR (Non-Af Amer) POC Glucose (mg/dL) Random Glucose Calcium Phosphorus Magnesium Total Bilirubin AST ALT Alkaline Phosphatase Troponin I Total Protein Albumin Globulin Albumin/Globulin Ratio Procalcitonin Arterial Blood Potassium Venous Blood Potassium 4.1 4.4 Urine Color Yellow Urine Appearance Clear Urine pH 6.0 Ur Specific [place] >= 1.030 Urine Protein Negative Urine Glucose (UA) 100 H Urine Ketones Negative Urine Blood Moderate H Urine Nitrate Negative Urine Bilirubin Negative Urine Urobilinogen 0.2 Ur Leukocyte Esterase Negative Urine RBC 10 - 15 Urine WBC 0 - 2 Ur Epithelial Cells 0 - 2 Amorphous Sediment Urine Bacteria Rare Urine Other Ur Random Creatinine Ur Random Sodium 01/02/18 01/02/18 01/02/18 06:10 06:10 06:10 WBC 14.8 H D RBC 3.27 L Hgb 9.6 L D Hct 28.6 L MCV 87.5 MCH 29.4 MCHC 33.6 RDW 14.8 H Plt Count 132 MPV 9.5 Gran % 87.9 H Lymph % (Auto) 7.7 L Lander % (Auto) 4.3 Eos % (Auto) 0.0 L Baso % (Auto) 0.1 Gran # 13.00 H Lymph # (Auto) 1.1 L Lander # (Auto) 0.6 Eos # (Auto) 0.0 Baso # (Auto) 0.01 pCO2 pO2 HCO3 ABG pH ABG Total CO2 ABG O2 Saturation ABG O2 Content ABG Base Excess ABG Hemoglobin ABG Carboxyhemoglobin POC ABG HHb (Measured) ABG Methemoglobin ABG O2 Capacity ABG Potassium VBG pH VBG pCO2 VBG HCO3 VBG Total CO2 VBG O2 Sat (Calc) VBG Base Excess VBG Potassium Hgb O2 Saturation Sodium 139 Chloride 110 H Glucose Lactate Mechanical Rate FiO2 Tidal Volume PEEP Pressure Support Potassium 3.8 Carbon Dioxide 26 Anion Gap 8 L BUN 10 Creatinine 1.0 Est GFR ( Amer) > 60 Est GFR (Non-Af Amer) > 60 POC Glucose (mg/dL) Random Glucose 172 H Calcium 7.4 L Phosphorus 2.7 Magnesium 1.7 Total Bilirubin 1.3 AST 26 ALT 33 Alkaline Phosphatase 75 Troponin I 0.28 H* D Total Protein 5.1 L Albumin 2.5 L Globulin 2.6 Albumin/Globulin Ratio 1.0 L Procalcitonin Arterial Blood Potassium Venous Blood Potassium Urine Color Urine Appearance Urine pH Ur Specific [place] Urine Protein Urine Glucose (UA) Urine Ketones Urine Blood Urine Nitrate Urine Bilirubin Urine Urobilinogen Ur Leukocyte Esterase Urine RBC Urine WBC Ur Epithelial Cells Amorphous Sediment Urine Bacteria Urine Other Ur Random Creatinine Ur Random Sodium 01/02/18 01/02/18 01/02/18 11:10 13:30 14:00 WBC RBC Hgb Hct MCV MCH MCHC RDW Plt Count MPV Gran % Lymph % (Auto) Lander % (Auto) Eos % (Auto) Baso % (Auto) Gran # Lymph # (Auto) Lander # (Auto) Eos # (Auto) Baso # (Auto) pCO2 46 H 45 pO2 209.0 H 95.0 HCO3 23.2 22.7 ABG pH 7.31 L 7.31 L ABG Total CO2 24.6 24.1 ABG O2 Saturation 100.0 H 99.2 H ABG O2 Content 12.1 L ABG Base Excess -3.0 L -3.7 L ABG Hemoglobin 8.4 L ABG Carboxyhemoglobin 1.6 H POC ABG HHb (Measured) 0 ABG Methemoglobin 0.8 ABG O2 Capacity 12.1 L ABG Potassium 4.0 VBG pH VBG pCO2 VBG HCO3 VBG Total CO2 VBG O2 Sat (Calc) VBG Base Excess VBG Potassium Hgb O2 Saturation 97.6 Sodium 140.0 Chloride 113.0 H Glucose 148 H Lactate 0.9 Mechanical Rate FiO2 60.0 40.0 Tidal Volume PEEP 5 Pressure Support 5 Potassium Carbon Dioxide Anion Gap BUN Creatinine Est GFR ( Amer) Est GFR (Non-Af Amer) POC Glucose (mg/dL) Random Glucose Calcium Phosphorus Magnesium Total Bilirubin AST ALT Alkaline Phosphatase Troponin I Total Protein Albumin Globulin Albumin/Globulin Ratio Procalcitonin Arterial Blood Potassium 4.0 Venous Blood Potassium Urine Color Urine Appearance Urine pH Ur Specific [place] Urine Protein Urine Glucose (UA) Urine Ketones Urine Blood Urine Nitrate Urine Bilirubin Urine Urobilinogen Ur Leukocyte Esterase Urine RBC Urine WBC Ur Epithelial Cells Amorphous Sediment Urine Bacteria Urine Other Ur Random Creatinine 142 Ur Random Sodium 37 01/02/18 14:00 WBC RBC Hgb Hct MCV MCH MCHC RDW Plt Count MPV Gran % Lymph % (Auto) Lander % (Auto) Eos % (Auto) Baso % (Auto) Gran # Lymph # (Auto) Lander # (Auto) Eos # (Auto) Baso # (Auto) pCO2 pO2 HCO3 ABG pH ABG Total CO2 ABG O2 Saturation ABG O2 Content ABG Base Excess ABG Hemoglobin ABG Carboxyhemoglobin POC ABG HHb (Measured) ABG Methemoglobin ABG O2 Capacity ABG Potassium VBG pH VBG pCO2 VBG HCO3 VBG Total CO2 VBG O2 Sat (Calc) VBG Base Excess VBG Potassium Hgb O2 Saturation Sodium Chloride Glucose Lactate Mechanical Rate FiO2 Tidal Volume PEEP Pressure Support Potassium Carbon Dioxide Anion Gap BUN Creatinine Est GFR ( Amer) Est GFR (Non-Af Amer) POC Glucose (mg/dL) Random Glucose Calcium Phosphorus Magnesium Total Bilirubin AST ALT Alkaline Phosphatase Troponin I Total Protein Albumin Globulin Albumin/Globulin Ratio Procalcitonin Arterial Blood Potassium Venous Blood Potassium Urine Color Yellow Urine Appearance Clear Urine pH 6.0 Ur Specific [place] 1.025 Urine Protein Negative Urine Glucose (UA) Negative Urine Ketones Trace H Urine Blood Small H Urine Nitrate Negative Urine Bilirubin Negative Urine Urobilinogen 0.2 Ur Leukocyte Esterase Negative Urine RBC 10 - 15 Urine WBC 0 - 2 Ur Epithelial Cells 0 - 2 Amorphous Sediment Few Urine Bacteria Many Urine Other Uyeast Ur Random Creatinine Ur Random Sodium EKG/Cardiology Studies: Cardiology / EKG Studies 01/01/18 14:45 EKG [ELECTROCARDIOGRAM] Stat Comment: Reason For Exam: post op desat PRE OP:: N Critical Care Progress Note - Nutrition Nutrition: Nutrition Category Date Time Status NPO Diet [DIET] Diets 01/01/18 Breakfast Ordered Attending/Attestation - Attestation I have personally seen and examined this patient.: Yes I have fully participated in the care of the patient.: Yes I have reviewed all pertinent clinical information: Yes Notes (Text): 01/02/18 15:[address] Castillo note
[2018-01-02 11:17] LABS: ARTERIAL BLOOD GAS HCO3 23.2 mmol/L (21-28); ARTERIAL BLOOD GAS HEMOGLOBIN 8.4 g/dL (11.7-17.4); ARTERIAL BLOOD GAS O2 CAPACITY 12.1 mL/dl (16-24); ARTERIAL BLOOD GAS O2 CONTENT 12.1 ML/dl (15-23); ARTERIAL BLOOD GAS PCO2 46 mm/Hg (35-45); ARTERIAL BLOOD GAS PH 7.31 (7.35-7.45); ARTERIAL BLOOD GAS TCO2 24.6 mmol.L (22-28)
[2018-01-02] MEDS ORDERED: Metoprolol 1 mg/ml Inj IVP ONE (13:00)
[2018-01-02 13:53] LABS: ARTERIAL BLOOD GAS HCO3 22.7 mmol/L (21-28); ARTERIAL BLOOD GAS O2 SAT 99.2 % (95-98); ARTERIAL BLOOD GAS PCO2 45 mm/Hg (35-45); ARTERIAL BLOOD GAS PH 7.31 (7.35-7.45); ARTERIAL BLOOD GAS TCO2 24.1 mmol.L (22-28)
[2018-01-02] MEDS: Albuterol-Ipratrop 3 mg / 0.5 (3 ml) UD IH SCH ×2 (14:06→19:32)
[2018-01-02 14:33] LABS: URINE BILIRUBIN NEGATIVE (NEGATIVE); URINE BLOOD SMALL (NEGATIVE); URINE GLUCOSE (UA) NEGATIVE (NEGATIVE); URINE LEUKOCYTE ESTERASE NEGATIVE Leu/uL (NEGATIVE); URINE PROTEIN NEGATIVE mg/dL (<30 mg/dL); URINE UROBILINOGEN 0.2 E.U./dL (<1 E.U./dL)
[2018-01-02 14:34] LABS: URINE APPEARANCE CLEAR (CLEAR); URINE COLOR YELLOW (YELLOW)
[2018-01-02 14:37] LABS: CREATININE,RANDOM URINE 142 mg/dL
[2018-01-02 14:53] LABS: URINE AMORPHOUS SEDIMENT FEW; URINE BACTERIA MANY (NEG); URINE EPITHELIAL CELLS 0 - 2 /hpf (0-5); URINE WBC 0 - 2 /hpf (0-6)
--- NOTE | 2018-01-02 15:02 | CP.PCM.PN ---
Subjective - Date & Time of Evaluation Date of Evaluation: 01/02/18 Time of Evaluation: 14:59 - Subjective Subjective: Hematology/Oncology Progress Note (Dr. Myers's Service) Patient seen and assessed at bedside in ICU. Patient was noted to be unrespons jose after his procedure while in PACU. HAM STRIPPER was called, patient was intubated and transferred to the ICU. He was started on and currently maintained on sedation. Patient intubated and sedated making further ROS unobtainable at this time. Objective - Vital Signs/Intake and Output Vital Signs (last 24 hours): Temp Pulse Resp BP Pulse Ox 98.8 F 98 H 14 103/56 L 97 01/02/18 11:24 01/02/18 14:00 01/01/18 15:00 01/02/18 13:02 01/02/18 11:30 Intake and Output: 01/02/18 01/02/18 06:59 18:59 Intake Total 1202 119.0 Output Total 275 Balance 927 119.0 - Medications Medications: Current Medications Acetaminophen (Tylenol 325mg Tab) 650 mg PO Q6H PRN PRN Reason: Fever >100.4 F Albuterol/Ipratropium (Duoneb 3 Mg/0.5 Mg (3 Ml) Ud) 3 ml IH E2BCOTH ALEX Last Admin: 01/02/18 14:06 Dose: 3 ml Heparin Sodium (Porcine) (Heparin) 5,000 units SC Q12H ALEX; Protocol Last Admin: 12/31/17 17:34 Dose: Not Given Hydromorphone HCl (Dilaudid) 0.5 mg IVP Q3 PRN PRN Reason: Arthritis Last Admin: 01/02/18 13:01 Dose: 0.5 mg Acetaminophen (Ofirmev) 1,000 mg in 100 mls @ 400 mls/hr IVPB Q6H ALEX Stop: 01/03/18 03:29 Propofol (Diprivan) 1,000 mg in 100 mls @ 2.014 mls/hr IV .Q24H PRN; Protocol PRN Reason: TITRATE PER MD ORDER Last Titration: 01/02/18 09:30 Dose: 0 mcg/kg/min, 0 mls/hr Sodium Chloride (Sodium Chloride 0.9%) 1,000 mls @ 75 mls/hr IV .[id number] ALEX Last Admin: 01/02/18 10:07 Dose: 75 mls/hr Meropenem (Merrem Iv 1 Gm Premix) 1 gm in 50 mls @ 100 mls/hr IVPB Q8 ALEX; Protocol Stop: 01/10/18 22:01 Last Admin: 01/02/18 13:03 Dose: 100 mls/hr Vancomycin HCl (Vancomycin 1gm) 1 gm in 250 mls @ 167 mls/hr IVPB Q12 ALEX; Protocol Stop: 01/10/18 22:01 Last Admin: 01/02/18 10:07 Dose: 167 mls/hr Dexmedetomidine HCl (Precedex 400mcg/100ml) 400 mcg in 100 mls @ 3.361 mls/hr IV .Q24H PRN; Protocol PRN Reason: Agitation Last Titration: 01/02/18 14:30 Dose: 0 mcg/kg/hr, 0 mls/hr Insulin Human Regular (Humulin R Low) 0 units SC ACHS [facility]; Protocol Last Admin: 01/02/18 11:20 Dose: Not Given Metoprolol Tartrate (Lopressor) 25 mg PO DAILY [facility] Last Admin: 12/31/17 09:41 Dose: 25 mg Metoprolol Tartrate (Lopressor) 12.5 mg PO QPM [facility] Last Admin: 12/31/17 17:26 Dose: 12.5 mg Montelukast Sodium (Singulair) 10 mg PO QPM [facility] Last Admin: 12/31/17 17:26 Dose: 10 mg Nitroglycerin (Nitro-Bid 2% Oint) 0.5 ea TOP Q6 ALEX Non-Formulary Medication (Rapaflo) 8 mg PO QPM [facility] Last Admin: 12/31/17 17:27 Dose: 8 mg Non-Formulary Medication (Ranexa) 500 mg PO BID [facility] Last Admin: 12/31/17 17:28 Dose: 500 mg Ondansetron HCl (Zofran Inj) 4 mg IVP Q4H PRN PRN Reason: Nausea/Vomiting Oxybutynin Chloride (Ditropan Tab) 5 mg PO HS [facility] Last Admin: 12/31/17 22:36 Dose: 5 mg - Labs Labs: 01/02/18 06:10 01/02/18 06:10 PT 12.2 SECONDS (9.4-12.5) 01/01/18 06:30 INR 1.06 01/01/18 06:30 APTT 28.7 Seconds (25.1-36.5) 01/01/18 06:30 - Constitutional Appears: No Acute Distress - Head Exam Head Exam: ATRAUMATIC, NORMOCEPHALIC - Eye Exam Eye Exam: Normal appearance, PERRL - ENT Exam Additional comments: ET tube in place in oropharynx - Neck Exam Neck Exam: absent: Lymphadenopathy, Tenderness, Thyromegaly - Respiratory Exam Respiratory Exam: absent: Clear to Ausculation Bilateral (Mechanical ventilation sounds on auscultation), NORMAL BREATHING PATTERN (Mechanical ventilation) - Cardiovascular Exam Cardiovascular Exam: Tachycardia, REGULAR RHYTHM, +S1, +S2 - GI/Abdominal Exam GI & Abdominal Exam: Soft, Tenderness (Diffusely TTP with facial grimmacing), Normal Bowel Sounds Additional comments: Surgical site noted to be without signs of clinical infection of surrounding soft tissue - Extremities Exam Extremities Exam: absent: Calf Tenderness - Skin Skin Exam: Dry, Warm Assessment and Plan - Assessment and Plan (Free Text) Assessment: 77 year old male with a past medical history significant for stage IV mantle cell lymphoma (quiescence), lung cancer s/p wedge resection, hypoglobulinemia, CAD s/p stent placement, DM2, HTN, COPD, and perforated sigmoid diverticulitis s/p Milli procedure who presented with abdominal pain. Patient noted to have respiratory failure after procedure yesterday for which he was intubated, sedated and transferred to the ICU for further monitoring. Plan: 1. VDRF -Continue mechanical ventilation as ordered -Continue Precedex as ordered for sedation -Daily weaning trials -Daily Chest X-Rays and ABG's while intubated -Pulmonology and ICU consulted, all recommendations appreciated 2. S/P Colostomy Reversal -EGD/Colonoscopy report noted -Continue Dilaudid PRN for pain control -NPO -Continue NS at 75mls/hr -GI and Surgery consulted, all recommendations appreciated 3. Leukocytosis -Likely marginalization -Pancultures and procalcitonin pending -Started on empiric Merrem and Vancomycin -ID consulted, all recommendations appreciated 4. History of CAD -Holding Metoprolol and DAPT in setting of NPO -Cardiology consulted, all recommendations appreciated 5. History of COPD -Continue Duonebs Q6 -Holding Singulair in setting of NPO 6. History of BPH -Hold Rapaflo and Oxybutynin in setting of NPO GI Prophylaxis: Protonix DVT Prophylaxis: Heparin Diet: NPO Code Status: Full code Patient seen and case discussed with attending, Dr. Myers. Mariusz Méndez PGY2
--- NOTE | 2018-01-02 15:35 | CP.PCM.PN ---
Subjective - Date & Time of Evaluation Date of Evaluation: 01/02/18 Time of Evaluation: 11:05 - Subjective Subjective: Patient seen and examined. No acute events over night. Remains intubated FiO2 60% PEEP5. NGT in place, no output. 130cc/24hr serosanguinous drainage from KERI drain. Objective - Vital Signs/Intake and Output Vital Signs (last 24 hours): Temp Pulse Resp BP Pulse Ox 98.8 F 98 H 14 103/56 L 97 01/02/18 11:24 01/02/18 14:00 01/01/18 15:00 01/02/18 13:02 01/02/18 11:30 Intake and Output: 01/02/18 01/02/18 06:59 18:59 Intake Total 1202 119.0 Output Total 275 Balance 927 119.0 - Medications Medications: Current Medications Acetaminophen (Tylenol 325mg Tab) 650 mg PO Q6H PRN PRN Reason: Fever >100.4 F Albuterol/Ipratropium (Duoneb 3 Mg/0.5 Mg (3 Ml) Ud) 3 ml IH [id number] ALEX Last Admin: 01/02/18 14:06 Dose: 3 ml Heparin Sodium (Porcine) (Heparin) 5,000 units SC Q12H [facility]; Protocol Last Admin: 12/31/17 17:34 Dose: Not Given Hydromorphone HCl (Dilaudid) 0.5 mg IVP Q3 PRN PRN Reason: Arthritis Last Admin: 01/02/18 13:01 Dose: 0.5 mg Acetaminophen (Ofirmev) 1,000 mg in 100 mls @ 400 mls/hr IVPB Q6H ALEX Stop: 01/03/18 03:29 Propofol (Diprivan) 1,000 mg in 100 mls @ 2.014 mls/hr IV .Q24H PRN; Protocol PRN Reason: TITRATE PER MD ORDER Last Titration: 01/02/18 09:30 Dose: 0 mcg/kg/min, 0 mls/hr Sodium Chloride (Sodium Chloride 0.9%) 1,000 mls @ 75 mls/hr IV .[id number] ALEX Last Admin: 01/02/18 10:07 Dose: 75 mls/hr Meropenem (Merrem Iv 1 Gm Premix) 1 gm in 50 mls @ 100 mls/hr IVPB Q8 [facility]LEX; Protocol Stop: 01/10/18 22:01 Last Admin: 01/02/18 13:03 Dose: 100 mls/hr Vancomycin HCl (Vancomycin 1gm) 1 gm in 250 mls @ 167 mls/hr IVPB Q12 [facility]LEX; Protocol Stop: 01/10/18 22:01 Last Admin: 01/02/18 10:07 Dose: 167 mls/hr Dexmedetomidine HCl (Precedex 400mcg/100ml) 400 mcg in 100 mls @ 3.361 mls/hr IV .Q24H PRN; Protocol PRN Reason: Agitation Last Titration: 01/02/18 14:30 Dose: 0 mcg/kg/hr, 0 mls/hr Insulin Human Regular (Humulin R Low) 0 units SC ACHS [facility]; Protocol Last Admin: 01/02/18 11:20 Dose: Not Given Metoprolol Tartrate (Lopressor) 25 mg PO DAILY [facility] Last Admin: 12/31/17 09:41 Dose: 25 mg Metoprolol Tartrate (Lopressor) 12.5 mg PO QPM [facility] Last Admin: 12/31/17 17:26 Dose: 12.5 mg Montelukast Sodium (Singulair) 10 mg PO QPM [facility] Last Admin: 12/31/17 17:26 Dose: 10 mg Nitroglycerin (Nitro-Bid 2% Oint) 0.5 ea TOP Q6 ALEX Non-Formulary Medication (Rapaflo) 8 mg PO QPM [facility] Last Admin: 12/31/17 17:27 Dose: 8 mg Non-Formulary Medication (Ranexa) 500 mg PO BID [facility] Last Admin: 12/31/17 17:28 Dose: 500 mg Ondansetron HCl (Zofran Inj) 4 mg IVP Q4H PRN PRN Reason: Nausea/Vomiting Oxybutynin Chloride (Ditropan Tab) 5 mg PO HS [facility] Last Admin: 12/31/17 22:36 Dose: 5 mg Pantoprazole Sodium (Protonix Inj) 40 mg IVP DAILY [facility] - Labs Labs: 01/02/18 06:10 01/02/18 06:10 PT 12.2 SECONDS (9.4-12.5) 01/01/18 06:30 INR 1.06 01/01/18 06:30 APTT 28.7 Seconds (25.1-36.5) 01/01/18 06:30 - Constitutional Appears: No Acute Distress - Head Exam Head Exam: NORMOCEPHALIC - Eye Exam Eye Exam: EOMI, Normal appearance - ENT Exam ENT Exam: Mucous Membranes Moist - Respiratory Exam Respiratory Exam: NORMAL BREATHING PATTERN - Cardiovascular Exam Cardiovascular Exam: +S1, +S2 - GI/Abdominal Exam GI & Abdominal Exam: Soft - Neurological Exam Neurological Exam: Alert, Awake, Oriented x3 - Psychiatric Exam Psychiatric exam: Normal Mood - Skin Skin Exam: Dry, Intact, Warm Assessment and Plan - Assessment and Plan (Free Text) Assessment: 77M s/p colostomy reversal POD1 Plan: -NPO -IVF -ABx per ID -Strict I&O's -NGT to LIS -Weaning trial -If extubated will d/c NGT -D/w Dr. Rosa Bain PGY3
--- NOTE | 2018-01-02 15:41 | PN ---
DATE: 01/02/2018 SUBJECTIVE: The patient seen and examined at bedside. He is comfortable. He is communicating nonverbally by writing on the clipboard. The patient reports moderate pain in his throat due to endotracheal tube and some burning sensation in perioperative area. The patient is on pressure support 5/5 with FiO2 60%. End-tidal CO2 on the monitor 51. ABG will be done at the end of the pressure support trial. PHYSICAL EXAMINATION: VITAL SIGNS: Respiratory rate varies between 19 and 21. His rapid shallow breathing index is 81, oxygen saturation 100%, heart rate 125. GENERAL: The patient is not on any sedation or pressors. ENT: Head and neck atraumatic. LUNGS: Clear to auscultation bilaterally. HEART: Regular rate and rhythm. S1 and S2 normal. ABDOMEN: Soft, very mildly tender in the perioperative area. Gauzes are not soaked with blood. Appeared clean. KERI drained 40 mL of serosanguineous fluid overnight. MUSCULOSKELETAL: No C/C/E. NEUROLOGIC: The patient moves all extremities spontaneously. SKIN: Moist. PSYCH: The patient is alert, awake and oriented x3. LABORATORY DATA: WBC 14.8 down from 25.1, hemoglobin 9.6 down from 12 (no apparent bleeding on physical exam, the patient lost only minimal amount of blood during the procedure as per Anesthesiology record), platelet count 132. Sodium 139, potassium 3.8, chloride 110, carbon dioxide 26, BUN 10, creatinine 1 (stable). The patient had only 270 mL of urine output overnight (12 hours). AST 26, ALT 33, total bilirubin 1.3, glucose 172, INR 1.06. Lactic acid down to 4.3 from 5.6. Chest x-ray: No active pulmonary disease. MEDICATIONS: Tylenol p.r.n., Precedex, heparin 5000 subcu every 12 hours, hydromorphone 0.5 mg IV every 3 hours p.r.n. and 1 mg of diluted was received just now for the pain, Xopenex every 12 hours, meropenem, Zofran p.r.n., normal saline 75 mL/hour, vancomycin. ASSESSMENT AND PLAN: This is a 77-year-old gentleman with reversal colostomy who experienced respiratory failure in early postoperative period requiring reintubation in post-anesthesia care unit. At present time, the patient is undergoing pressure support trial. Arterial blood gas will be done shortly to ascertain resolution of acute respiratory acidosis and ability to ventilate with minimal or no assistance. The patient is little bit tachycardic, which may or may not be attributed to anxiety and pain. Dilaudid1 mg intravenous extra was given, Precedex was started. Rapid shallow breathing index at present time is below 105 (80-81). Abdominal exam is appropriate for postoperative period. We will continue to target euvolemia, euglycemia, normothermia and 02sat more then 90%. Once respiratory failure resolved, emphasis will be made on early mobilization, pulmonary toilet, incentive spirometry, chest PT of bed to chair, physical therapy, pulmonary toilet. Gastrointestinal prophylaxis. We will also give 1 liter of normal saline as a bolus to ascertain that tachycardia is not due to relative hypovolemia. We will continue antibiotics. Infectious Disease service is on board. ccm time 40 min Bam Castillo MD JUAN R
--- NOTE | 2018-01-02 15:57 | CON ---
DATE: 01/01/2018 REFERRING PHYSICIAN: Dr. Myers. REASON FOR CONSULT: Respiratory failure. HISTORY OF PRESENT ILLNESS: This is 77 years old gentleman well known to me from a previous admission, known history of mantle cell lymphoma, also has a history of lung cancer requiring wedge resection, coronary artery disease, had multiple coronary stents, chronic lung disease, history of at one point, suspected sleep apnea syndrome, he has a history of diverticulum rupture requiring Milli procedure, so he was admitted for reversal of his colostomy, it went well in OR. There was no issue while he was in PACU unit, very lethargic. Apparently rapid response was called and the patient then intubated and he was unresponsive at that time, transferred to intensive care unit on ventilator. So followup VBG on ventilator shows still have a respiratory metabolic acidosis. He was arousable, follows simple commands. The patient's with the physician also at the bedside. There is secretion, no hemoptysis, no hematemesis, no hematuria, no diarrhea reported. PAST MEDICAL HISTORY: As per history of present illness. FAMILY HISTORY: No significant cardiopulmonary disease reported. ALLERGIES: KEFLEX, PENICILLIN, ZITHROMAX. SOCIAL HISTORY: No history of smoking or alcohol abuse. MEDICATIONS: He is on mg every 3 hours p.r.n.; Diprivan, small, low dose is started; oxybutynin 5 mg at bedtime; heparin is 5000 subcutaneously every 12 hours; insulin coverage; metoprolol tartrate 12.5 mg every p.m.; metoprolol tartrate 25 mg daily in the morning; meropenem 1 g every 8 hours; p.r.n.; Ranexa 500 mg twice a day; Rapaflo 8 mg daily; Singulair 10 mg daily; IV fluid normal saline 75 mL per hour; vancomycin 1 g IV daily; Xopenex inhaler every 12 hours; Zofran p.r.n. REVIEW OF SYSTEMS: He is sleepy, arousable, follows simple command, intubated. Not much easy to . No hemoptysis. No hematemesis. Surgical site looks okay. There is no leg swelling. OBJECTIVE: GENERAL: Lethargic, intubated. VITAL SIGNS: Temp is 98, heart rate is 95, respiratory rate is 20, blood pressure is 117/47, pulse ventilator was 60% oxygen. HEENT: Moist mucous membranes. . NECK: Supple. No JVD. LUNGS: Scattered rhonchi. HEART: S1 and S2. ABDOMEN: Soft, nondistended, incision site looks okay. EXTREMITIES: There is no edema. NEUROLOGICAL: Sleepy and arousable. Follows simple commands. LABORATORY DATA: Shows hemoglobin 12.0, hematocrit 37.8, WBC 25,000, platelet count is 184. INR 1.06. PTT is 29. ABG shows pH 7.28, pCO2 of 44, 02 of 145, this was on ventilator. Sodium 141, potassium 4.3, chloride 108, bicarbonate 27, BUN 10, creatinine 1.0, glucose 200. Calcium 7.7, phosphorus 5.6, albumin 1.8. IMPRESSION: Improved respiratory failure on ventilator, metabolic respiratory acidosis, history of lung cancer requiring wedge resection, history of mantle cell carcinoma, coronary artery disease with coronary stent, history of , hypertension, diabetes, chronic lung disease, status post diverticular perforation, had a Milli procedure, no reversal of colostomy, status post respiratory failure requiring intubation. Case discussed with patient's and physician at bedside. I also spoke to medical device sales. I also spoke to warehouse operator, . There was discussion with anesthesia. At this point, I think medically he is not optimal to extubate, I will suggest for continued mildly sedate him, make him comfortable, need to correct his ABG and electrolytes. We will reevaluate in the morning with the ABG, chest x-ray, CBC, CMP in the morning. Critical care time on him is 75 minutes. Thank you and we will follow with you. Thanh Duffy MD
--- NOTE | 2018-01-02 17:41 | CON ---
DATE: 01/02/2018 The patient is seen in the ICU. CHIEF COMPLAINT: Respiratory failure x1 day. HISTORY OF PRESENT ILLNESS: This is a 77-year-old male, known to me from multiple admissions of mantle cell lymphoma, who also is status post chemotherapy, coronary artery disease, BPH, dyslipidemia, bilateral healthcare-associated pneumonia, asthma, bronchitis, urinary tract infection, who was admitted through the hospital on the with the abdominal pain in the past with sigmoid colon exploratory lap and colostomy, now is admitted with colostomy bag, was taken to the OR yesterday on the for partial colectomy and closure of colostomy and intractable abdominal pain with obstruction, and postoperatively, the patient is intubated on a ventilator, and increased WBC count, and Infectious Disease consultation requested. REVIEW OF SYSTEMS: Reveals there has been low-grade fevers. There is abdominal pain. No chest pain. The patient is intubated on a ventilator. A 14-point review of systems is performed. PAST MEDICAL HISTORY: Significant for mantle cell lymphoma, stage II; lung cancer, status post wedge resection; coronary artery disease with cardiac stents; diabetes; hypertension; chronic obstructive lung disease; perforated sigmoid diverticulitis, had a Milli's procedure; colostomy reversal yesterday; and the patient was extubated in the OR. While in PACU, the patient became less responsive, unarousable, went into respiratory arrest, had an CHRISTIAN SCIENCE PRACTITIONER called, and the patient is intubated on a ventilator. PAST SURGICAL HISTORY: Significant for exploratory laparotomy, prostatectomy, exploratory sigmoid resection and colostomy bag. ALLERGIES: THE PATIENT HAS MULTIPLE ALLERGIES INCLUDING PENICILLIN, ERYTHROMYCIN, AZITHROMYCIN, CEPHALEXIN AND GABAPENTIN. HOME MEDICATIONS: Medications at home are also reviewed. PHYSICAL EXAMINATIONS: VITAL SIGNS: The patient is in bed with a temperature of 98 and heart rate of 103. The patient is on a ventilator. Blood pressure is 94/40. HEENT: NG tube is in place. NECK: Supple. LUNGS: Have decreased breath sounds. HEART: Normal S1 and S2. ABDOMEN: Has dressing. No rebound. No guarding. LABORATORY DATA: Reveals the patient's white count is 25,000, hemoglobin of 12, platelets of 184, and coagulation is noted. Chemistries reveal a BUN of 10 and creatinine of 1.0. Urinalysis is noted. ASSESSMENT AND PLAN: This is a 77-year-old male with mantle cell lymphoma, lung cancer, has had chemotherapy, coronary artery disease, benign prostatic hypertrophy, bilateral healthcare-associated pneumonia, asthma, bronchitis and urinary tract infection, now with respiratory failure, intubated on a ventilator, and systemic inflammatory response syndrome, must rule out healthcare-associated pneumonia. We will treat the patient with vancomycin and meropenem pending blood cultures, urine cultures, sputum cultures, methicillin-resistant Staphylococcus aureus screen, and procalcitonin. Pathology from the OR is pending, and we will make further recommendation. Case is discussed with staff. The patient requests that the patient's case is also discussed with the patient's , who is a doctor in [place]. We will follow with you. Marvin Callahan MD
[2018-01-02] MEDS: Nitroglycerin 2% Ointment Foilpak UD TOP SCH ×2 (17:52→23:01)
--- NOTE | 2018-01-02 20:40 | CON ---
DATE OF CONSULTATION: 01/02/2018 REASON FOR CONSULTATION: Sepsis, respiratory acidosis, hypokalemia, respiratory failure. HISTORY OF PRESENTING ILLNESS: This is a 77-year-old male admitted on 12/30/2017 with complaints of severe abdominal pain, the patient had poor appetite with nausea, no solid food intake for 2 days prior to presentation. The patient has a history of colostomy for a perforated diverticulum. The patient underwent endoscopy on 12/31/2017, which showed an 8-mm polyp in the cecum, scattered small diverticula in the sigmoid and descending colon, internal hemorrhoids. The patient also underwent upper endoscopy, which showed normal duodenum, gastritis. Yesterday, the patient underwent exploratory laparotomy and reversal of colostomy. He also underwent rectal stump resection with end-to-end anastomosis. Postoperatively, the patient became less responsive and unarousable in the PACU. He went into respiratory arrest. Rapid Response was called and the patient was re-intubated. He was moved to the ICU. He is currently seen in the ICU. In the ICU, he was found to be hypercapnic, with respiratory acidosis. The patient was stabilized on the ventilator. He was sedated. Currently, he is arousable, opens eyes. Not really following commands. He remains on the Precedex. He is off the propofol. Plan is for trial of extubation later today. The patient was also found to have elevated WBC count, elevated lactate levels, currently being treated for sepsis. He received vancomycin and he is receiving Merrem 500 every 8 hours. The patient received a total of 1 liter of normal saline as a fluid challenge, currently receiving normal saline at 75 mL/h. His hemoglobin has dropped from 12 to 9.6. His WBC count was 25,000 yesterday with the left shift. His urinalysis showed a specific gravity of greater than 1.030, moderate blood, leukocyte esterase negative. ABGs yesterday afternoon showed a pH of 7.28, pCO2 of 44, pO2 of 145. This morning, the ABG showed a pH of 7.31, pCO2 of 46, pO2 of 209. PAST MEDICAL AND SURGICAL HISTORY: Mantle cell lymphoma stage IV status post multiple chemotherapy agents, atherosclerotic heart disease, history of lung cancer, history of wedge resection, PTCA and stent, NIDDM, hyperlipidemia, BPH, COPD, perforated sigmoid diverticulitis status post Milli's procedure, now status post colostomy reversal. FAMILY HISTORY: Noncontributory. SOCIAL HISTORY: No smoking, no alcohol use, no IV drug abuse. ALLERGIES: ZITHROMAX, PENICILLIN AND KEFLEX. REVIEW OF SYSTEMS: Unavailable as the patient is still sedated on mechanical ventilation. PHYSICAL EXAMINATION: GENERAL: Elderly male lying in bed in the ICU on mechanical ventilation. VITAL SIGNS: Blood pressure 103/56, heart rate 112, respiratory rate 14, temperature 98.8. HEENT: Normocephalic, atraumatic, positive pallor. NECK: Supple, no JVD. LUNGS: Bilateral equal air entry, bilateral equal air expansion, no rales appreciated. CARDIAC: S1 and S2, regular rate rhythm, no murmur, no rub. ABDOMEN: Distended, soft, positive dressing on the midline, positive dressing on the left lower quadrant, bowel sounds absent. EXTREMITIES: No lower extremity edema, 2+ pitting edema of the upper extremities. INTAKE AND OUTPUT: 2653/635, the patient had 3000 mL of drainage yesterday. CURRENT MEDICATIONS: Dilaudid 0.5 IV push every 3 hours p.r.n.; off Diprivan; DuoNeb; Lopressor 12.5 p.m. daily, Lopressor 25 in a.m., currently on hold; Merrem 1 g every 8 hours; Precedex 0.4 mg/kg/h; Ranexa 500 b.i.d., on hold; vancomycin 1 g IV piggyback every 12 hours; Zofran. LABORATORY DATA: WBC 14.8, hemoglobin 9.6, hematocrit 28.6, platelets 132, polys 88%. Sodium 139, potassium 3.8, chloride 110, CO2 of 26, BUN 10, creatinine 1.0, glucose 172, calcium 7.4, phosphorus 2.7, magnesium 1.7, albumin 2.5, corrected calcium is 8.4. Troponin 0.28. Urinalysis: Yellow, clear, pH 6.0, specific gravity 1.030, protein negative, blood moderate, glucose 100. ABGs: pH 7.3, pCO2 of 46, pO2 of 209. Chest x-ray, no active pulmonary disease. ASSESSMENT: 1. Respiratory failure, respiratory acidosis, status post exploratory lap, colostomy reversal, postop day #1. 2. Lfczf-um-pjnokph anemia, suspect largely secondary to dilution/IV fluids. 3. Leukocytosis, lactic acidosis, suspect sepsis secondary to GI source. 4. Borderline hypotension, secondary to sepsis, capillary leak, intravascular volume depletion. 4. History of mantle cell lymphoma, stage IV. 5. History of lung cancer, history of wedge resection. 6. Hbt-wdbwmqy-mxdamyfjg diabetes mellitus. 7. History of hypertension. 8. Coronary artery disease, history of percutaneous transluminal coronary angioplasty and stent, now with elevated troponins, likely secondary to stress, demand ischemia. 9. Mild hypocalcemia. 10. Hypoalbuminemia. PLAN: 1. Agree with IV fluid resuscitation for the time being. 2. Monitor serial hemoglobin and hematocrit. 3. Continue empiric antibiotics. 4. Check vancomycin level after the third dose. 5. Agree with plans for trial of extubation. 6. Monitor urine output closely. 7. Avoid nephrotoxins. 8. Follow up cultures. 9. Repeat urinalysis. Continue to monitor very closely in the ICU. Case discussed with ICU nursing staff, case discussed with ICU resident, case discussed with Dr. Marques, case discussed with Dr. Myers. More than 35 minutes spent in the care of this critically ill patient. Natalie Raman MD
[2018-01-03] MEDS: HYDROmorphone 0.5 mg/0.5 ml ISec IVP PRN ×4 (00:19→18:41)
--- NOTE | 2018-01-03 00:31 | CON ---
DATE: 01/02/2018 The patient is in ICU 128, bed 6. REASON FOR CONSULTATION: Elevated troponin, status post respiratory failure, status post reversal of colostomy surgery, history of coronary artery disease, history of stent insertion and also mantle cell lymphoma. HISTORY OF PRESENT ILLNESS: A 77-year-old male who is known to have coronary artery disease status post multiple stents in the past, history of hypertension, hyperlipidemia, mantle cell lymphoma, with colostomy who underwent reversal of colostomy yesterday, and post surgery, the patient got respiratory distress, had to be intubated, was found to have CO2 retention with apnea. The patient does not have any history of chest pain. The patient still on respirator, but awake and alert, answers question by shaking head and writing on the pad. The patient denies any chest pain. The patient's troponin has been found to be elevated at 0.28 this morning. PAST MEDICAL HISTORY: Significant for mantle cell lymphoma, history of lung carcinoma status post wedge resection, history of CAD status post multiple stents, history of recurrent urinary tract infection, and hypertension. The patient has been getting gamma globulin for his lymphoma, history of acute abdomen with perforation of hollow viscus and exploratory laparotomy for which a colostomy was also created and now on this admission patient has reversal of colostomy, and post-reversal of colostomy, the patient went to respiratory failure and was intubated and now the troponin has been found elevated. PAST SURGICAL HISTORY: Significant for past history of wedge resection for the carcinoma of the lung, acute bowel perforation for which the patient had laparotomy and temporary colostomy and now reversal of the colostomy has been done. PERSONAL HISTORY: No history of smoking or alcohol abuse. ALLERGIES: THE PATIENT IS ALLERGIC TO ERYTHROMYCIN, PENICILLIN, KEFLEX, GABAPENTIN, SULFA DRUGS. HOME MEDICATIONS: Included aspirin, Plavix, atorvastatin, metoprolol, Singulair, levalbuterol, Zetia, and Zofran. REVIEW OF SYSTEMS: All the systems reviewed, positive mentioned in the history, others are negative. PHYSICAL EXAMINATION VITAL SIGNS: Blood pressure 100/60, heart rate 113 per minute. Patient is afebrile. HEENT: Head is normocephalic. Eyes; pupils normal. Conjunctivae slightly pale. NECK: JVP low. Carotid equal. Thorax AP diameter normal. LUNGS: No significant rales. CARDIOVASCULAR: S1 and S2. ABDOMEN: Surgery as mentioned. EXTREMITIES: No clubbing. No cyanosis. LABORATORY DATA: WBC 14.8, hemoglobin 9.6, hematocrit 28.6, and platelets 132. Sodium 139, potassium 3.8, BUN 10, creatinine 1.0. Random glucose 172, phosphorus 2.7, magnesium 1.7, calcium 7.4. AST and ALT normal. Troponin 0.28. Albumin 2.5 and total protein 5.1, both total protein and albumin are low. Chest x-ray, no signs of any CHF. EKG showed sinus tachycardia, T inversions were seen. DIAGNOSES: Respiratory failure post reversal of the colostomy surgery, troponin elevated, possible [id number] myocardial infarction with previous history of coronary artery disease, multiple stent insertions, hypertension, diabetes, mantle cell lymphoma, status post wedge resection for the carcinoma of the lung, anemia, respiratory failure on ventilator. The patient had echocardiogram on 06/19/2017 that showed normal left ventricular function, mild valvular aortic stenosis, moderate aortic regurgitation, gfbep-[id number] mitral regurgitation, mild pulmonary hypertension, normal ejection fraction 55-60%, vmyg-sa-gdiwpvla tricuspid regurgitation, hyperlipidemia, diabetes mellitus, chronic obstructive pulmonary disease, mantle cell lymphoma, status post reversal of colostomy, respiratory failure, patient on ventilator, coronary artery disease with history of stents insertion, mild aortic stenosis on echocardiogram, slight troponin elevation, possibility of [id number]-[id number] myocardial infarction. The patient getting heparin 5000 units subcu every 12 hours, but that has been put on hold at present, probably due to the surgery. The patient was on metoprolol 25 daily but he cannot get it now, he is n.p.o. with the patient on respirator. The patient is on meropenem 1 g IV every 8 hours. The patient is on propofol 500 b.i.d., this is on hold. Singulair 10 mg in the evening, this is on hold. The patient on vancomycin 1 g every 12 hours. We will add nitro paste half inch to Chest every 6 hourly to the chest pain. We will also give Lopressor 2.5 mg IV every 6 hours as long as the patient is n.p.o. and we will repeat troponin with it tomorrow morning's blood work, and we will follow with you. Thanh Holbrook MD [facility] # [id number] JUAN R
--- NOTE | 2018-01-03 01:28 | PN ---
DATE: 01/02/2018 REFERRING PHYSICIAN: Dr. Santoyo SUBJECTIVE: He is extubated on Venturi mask. Could not tolerate CPAP/BiPAP. Has some pulmonary secretion, sore throat. No chest pain. Has abdominal pain. No leg pain or leg swelling. OBJECTIVE: GENERAL: No acute distress. VITAL SIGNS: Temperature is 100, heart rate is 109, respiratory rate is 20, blood pressure 95/46, pulse ox 95% on Venturi mask. HEENT: Moist mucous membranes. Small oral cavity. NECK: Supple. No JVD. LUNGS: Have a few scattered rhonchi. HEART: S1, S2. ABDOMEN: Has a dressing on the wound. No bowel sounds. Diffuse tenderness. EXTREMITIES: There is no edema. NEUROLOGIC: Awake, alert and follows simple commands. MEDICATIONS: He is on Dilaudid 0.5 mg every 3 hours p.r.n., Ditropan 5 mg h.s., albuterol/Atrovent nebulizer every 6 hours, heparin 5000 units subcu every 12 hours, insulin coverage, metoprolol tartrate 12.5 mg in the evening, metoprolol tartrate 25 mg in the morning, meropenem 1 g IV every 8 hours, Tylenol p.r.n., Precedex IV drip, Protonix 40 mg daily, Rapaflo, vancomycin 1 g IV every 12 hours, Zofran p.r.n. basis. LABORATORY DATA: Shows hemoglobin 9.6, hematocrit 28.6, WBC 14.8, platelet count is 132. ABG shows pH 7.31, pCO2 of 45, O2 of 95, that was on CPAP and pressure support. Sodium 139, potassium 3.8, chloride 110, bicarbonate 26, BUN 10, creatinine 1.0, glucose is 172, calcium 7.4, phosphorus 2.7, magnesium 1.7, AST 26, ALT 33, alk phos is 75. Troponin 0.28. Albumin is 2.5. Microbiology, blood culture is no growth. Chest x-ray shows no active pulmonary disease. IMPRESSION AND PLAN: Status post respiratory failure, liberated from ventilator; history of lung cancer, requiring wedge resection in the remote past; also has mantle cell carcinoma involving the lungs; coronary artery disease, history of coronary stent; hypertension; diabetes; chronic lung disease; ; history of diverticular perforation with Milli procedure, status post reversal of colostomy, ended up with respiratory failure, presently on Venturi mask. Case discussed with nursing staff and certified medical technician assistant. Sleep apnea precaution, keep head at 45 degrees. Bronchodilator, antibiotics as per Infectious Diseases. Careful with sedation. Gastric prophylaxis, DVT prophylaxis, pain management. Follow up CBC, CMP in the morning. Incentive spirometer. Critical care time spent 35 minutes. Thank you and we will follow with you. Thanh Duffy MD
[2018-01-03] MEDS: Albuterol-Ipratrop 3 mg / 0.5 (3 ml) UD IH SCH ×4 (01:54→19:56)
[2018-01-03] MEDS: Sodium Chloride 0.9% 1,000 ML IV SCH ×2 (02:30→10:25)
[2018-01-03] MEDS: Meropenem IV 1 gm in NS 1 GM/50 ML BAG IVPB SCH ×3 (06:04→21:24)
[2018-01-03] MEDS: Nitroglycerin 2% Ointment Foilpak UD TOP SCH ×2 (06:05→13:27)
[2018-01-03 07:21] LABS: BASO # 0.01 K/mm3 (0.0-2.0); BASO % 0.1 % (0.0-3.0); GRAN # 11.65 (1.4-6.5); GRAN % 88.9 % (50.0-68.0); HEMOGLOBIN 7.9 g/dL (14.0-18.0); LYMPH # 0.8 (1.2-3.4); MEAN CELL VOLUME 88.6 fl (80.0-105.0); MEAN CORPUSCULAR HEMOGLOBIN 29.2 pg (25.0-35.0); MEAN CORPUSCULAR HGB CONC 32.9 g/dl (31.0-37.0); MEAN PLATELET VOLUME 9.6 fl (7.0-11.0); MONO # 0.7 (0.1-0.6); RBC 2.71 10^6/uL (3.5-6.1); RED CELL DISTRIBUTION WIDTH 15.2 % (11.5-14.5); WHITE BLOOD COUNT 13.1 10^3/uL (4.5-11.0)
[2018-01-03] MEDS: Insulin Reg-LOW-Coverage SC SCH ×4 (07:30→21:16)
[2018-01-03 07:32] LABS: ALB/GLOB RATIO 0.9 (1.1-1.8); ALBUMIN 2.5 g/dL (3.0-4.8); ALT/SGPT 32 U/L (7-56); AST/SGOT 34 U/L (17-59); BLOOD UREA NITROGEN 9 mg/dL (7-21); CALCIUM 7.1 mg/dL (8.4-10.5); GFR NON-AFRICAN AMERICAN > 60
--- NOTE | 2018-01-03 08:00 | CP.CCUPN ---
<Shereen Vogel - Last Filed: 01/03/18 10:32> CCU Subjective - Physician Review Subjective (Free Text): CRITICAL CARE PROGRESS NOTE FOR DR. JOLEEN Vogel PGY-1 Pt seen and examined at bedside. He is currently extubated on 3L NC. He is resting comfortably in the chair. He is making non-bloody urine. He reports pressure like abdominal pain, and feels like he cant urinate. Denies other ROS CCU Objective - Vital Signs / Intake & Output Vital Signs (Last 4 hours): Vital Signs Temp Pulse Resp BP Pulse Ox 01/03/18 06:13 103 H 35 H 110/63 91 L 01/03/18 06:00 106 H 39 H 94 L 01/03/18 05:00 112 H 41 H 93 L 01/03/18 04:00 99 F 119 H 47 H 89 L Intake and Output (Last 8hrs): Intake & Output 01/02/18 01/03/18 01/03/18 22:59 06:59 14:59 Intake Total 2384 1000 Output Total 430 810 Balance 1954 190 Weight 152 lb Intake: IV 2384 1000 IVF 1712 800 Precedex 22 200 antibiotics 350 right chest implanted 300 port Oral 0 0 Output: Gastric Amount 100 Left 100 Drainage 30 10 Left Abdomen 30 10 Urine 300 800 Urethral (Morales) 300 800 Other: # Bowel Movements 0 0 - Physical Exam Head: Positive for: Atraumatic, Normocephalic Pupils: Positive for: PERRL Extroacular Muscles: Positive for: EOMI Conjunctiva: Positive for: Normal Mouth: Positive for: Dry Neck: Positive for: Normal Range of Motion Respiratory/Chest: Positive for: Clear to Auscultation, Good Air Exchange. Negative for: Respiratory Distress, Accessory Muscle Use Cardiovascular: Positive for: Regular Rate and Rhythm, Normal S1, S2. Negative for: Murmurs Abdomen: Positive for: Tenderness (non-focal), Other (abdominal dressing place. KERI draining serosanguinous fluid) Back: Positive for: Normal Inspection Upper Extremity: Positive for: Normal Inspection. Negative for: Cyanosis, Edema Lower Extremity: Positive for: Normal Inspection. Negative for: Edema Neurological: Positive for: GCS=15, CN II-XII Intact, Speech Normal Skin: Positive for: Warm, Dry, Normal Color. Negative for: Rashes Psychiatric: Positive for: Alert, Oriented x 3, Normal Insight, Normal Concentration - Medications Active Medications: Active Medications Generic Name Dose Route Start Last Admin Trade Name Freq PRN Reason Stop Dose Admin Acetaminophen 650 mg 12/30/17 17:54 Tylenol 325mg Tab PO Q6H PRN Fever >100.4 F Albuterol/Ipratropium 3 ml 01/02/18 14:00 01/03/18 07:05 Duoneb 3 Mg/0.5 Mg (3 Ml) Ud IH 3 ml [id number] ALEX Administration Heparin Sodium (Porcine) 5,000 units 12/30/17 17:45 01/03/18 06:04 Heparin SC 5,000 units Q12H ALEX Administration Protocol Hydromorphone HCl 0.5 mg 01/02/18 17:13 01/03/18 03:15 Dilaudid IVP 0.5 mg Q3 PRN Administration Pain, severe (8-10) Propofol 1,000 mg in 100 mls @ 2.014 mls/hr 01/01/18 16:41 01/02/18 09:30 Diprivan IV 0 mcg/kg/min .Q24H PRN 0 mls/hr TITRATE PER MD ORDER Titration Protocol 5 MCG/KG/MIN Meropenem 1 gm in 50 mls @ 100 mls/hr 01/01/18 22:00 01/03/18 06:04 Merrem Iv 1 Gm Premix IVPB 01/10/18 22:01 100 mls/hr Q8 ALEX Administration Protocol Vancomycin HCl 1 gm in 250 mls @ 167 mls/hr 01/01/18 22:00 01/02/18 10:07 Vancomycin 1gm IVPB 01/10/18 22:01 167 mls/hr Q12 ALEX Administration Protocol Dexmedetomidine HCl 400 mcg in 100 mls @ 3.361 mls/hr 01/02/18 09:56 01/02/18 14:30 Precedex 400mcg/100ml IV 0 mcg/kg/hr .Q24H PRN 0 mls/hr Agitation Titration Protocol 0.2 MCG/KG/HR Potassium Chloride 20 meq in 100 mls @ 50 mls/hr 01/03/18 07:50 Potassium Chloride 20 Meq/100 Ml IVPB 01/03/18 09:49 ONCE ONE Sodium Chloride 1,000 mls @ 50 mls/hr 01/03/18 08:00 Sodium Chloride 0.9% IV .Q20H ALEX Insulin Human Regular 0 units 12/30/17 22:00 01/02/18 22:00 Humulin R Low SC Not Given ACHS [facility] Protocol Metoprolol Tartrate 25 mg 12/31/17 10:00 12/31/17 09:41 Lopressor PO 25 mg DAILY ALEX Administration Metoprolol Tartrate 12.5 mg 12/30/17 18:00 12/31/17 17:26 Lopressor PO 12.5 mg QPM ALEX Administration Montelukast Sodium 10 mg 12/30/17 18:00 12/31/17 17:26 Singulair PO 10 mg QPM ALEX Administration Nitroglycerin 0.5 ea 01/02/18 18:00 01/03/18 06:05 Nitro-Bid 2% Oint TOP 0.5 ea Q6 ALEX Administration Non-Formulary Medication 8 mg 12/30/17 19:26 12/31/17 17:27 Rapaflo PO 8 mg QPM ALEX Administration Non-Formulary Medication 500 mg 12/30/17 19:28 12/31/17 17:28 Ranexa PO 500 mg BID ALEX Administration Ondansetron HCl 4 mg 01/01/18 13:58 Zofran Inj IVP Q4H PRN Nausea/Vomiting Oxybutynin Chloride 5 mg 12/30/17 22:00 12/31/17 22:36 Ditropan Tab PO 5 mg HS ALEX Administration Pantoprazole Sodium 40 mg 01/03/18 10:00 Protonix Inj IVP DAILY ALEX - Patient Studies Lab Studies: Microbiology Studies 01/01/18 19:47 Blood Culture - Preliminary Blood NO GROWTH AFTER 24 HOURS 01/01/18 19:47 Blood Culture - Preliminary Blood NO GROWTH AFTER 24 HOURS 01/01/18 16:49 MRSA Culture (Admit) - Final Naris MRSA NOT DETECTED 01/02/18 12:00 Gram Stain - Final Sputum Lab Studies 01/03/18 01/03/18 01/02/18 Range/Units 07:10 07:10 22:15 WBC 13.1 H (4.5-11.0) 10^3/uL RBC 2.71 L (3.5-6.1) 10^6/uL Hgb 7.9 L (14.0-18.0) g/dL Hct 24.0 L (42.0-52.0) % MCV 88.6 (80.0-105.0) fl MCH 29.2 (25.0-35.0) pg MCHC 32.9 (31.0-37.0) g/dl RDW 15.2 H (11.5-14.5) % Plt Count 128 (120.0-450.0) 10^3/uL MPV 9.6 (7.0-11.0) fl Gran % 88.9 H (50.0-68.0) % Lymph % (Auto) 6.0 L (22.0-35.0) % [place] % (Auto) 5.0 (1.0-6.0) % Eos % (Auto) 0.0 L (1.5-5.0) % Baso % (Auto) 0.1 (0.0-3.0) % Gran # 11.65 H (1.4-6.5) Lymph # (Auto) 0.8 L (1.2-3.4) [place] # (Auto) 0.7 H (0.1-0.6) Eos # (Auto) 0.0 (0.0-0.7) Baso # (Auto) 0.01 (0.0-2.0) K/mm3 pCO2 (35-45) mm/Hg pO2 (80-100) mm/Hg HCO3 (21-28) mmol/L ABG pH (7.35-7.45) ABG Total CO2 (22-28) mmol.L ABG O2 Saturation (95-98) % ABG O2 Content (15-23) ML/dl ABG Base Excess (-2.0-3.0) mmol/L ABG Hemoglobin (11.7-17.4) g/dL ABG Carboxyhemoglobin (0.5-1.5) % POC ABG HHb (Measured) (0-5) % ABG Methemoglobin (0.0-3.0) % ABG O2 Capacity (16-24) mL/dl ABG Potassium (3.6-5.2) mmol/L Hgb O2 Saturation (95.0-98.0) % Sodium 141 (132-148) mmol/L Chloride 112 H (98-107) mmol/L Glucose (75-110) mg/dl Lactate (0.7-2.1) mmol/L FiO2 % PEEP Pressure Support Potassium 3.6 (3.6-5.0) mmol/L Carbon Dioxide 24 (21-33) mmol/L Anion Gap 9 L (10-20) BUN 9 (7-21) mg/dL Creatinine 0.9 (0.8-1.5) mg/dl Est GFR ( Amer) > 60 Est GFR (Non-Af Amer) > 60 POC Glucose (mg/dL) 139 H (65-110) mg/dL Random Glucose 158 H (70-110) mg/dL Calcium 7.1 L (8.4-10.5) mg/dL Phosphorus 2.2 L (2.5-4.5) mg/dL Magnesium 2.0 (1.7-2.2) mg/dL Total Bilirubin 2.7 H (0.2-1.3) mg/dL AST 34 (17-59) U/L ALT 32 (7-56) U/L Alkaline Phosphatase 81 (38-126) U/L Troponin I ng/mL Total Protein 5.1 L (5.8-8.3) g/dL Albumin 2.5 L (3.0-4.8) g/dL Globulin 2.6 gm/dL Albumin/Globulin Ratio 0.9 L (1.1-1.8) Arterial Blood Potassium (3.6-5.2) mmol/L Urine Color (YELLOW) Urine Appearance (CLEAR) Urine pH (4.7-8.0) Ur Specific [place] (1.005-1.035) Urine Protein (<30 mg/dL) mg/dL Urine Glucose (UA) (NEGATIVE) mg/dL Urine Ketones (NEGATIVE) mg/dL Urine Blood (NEGATIVE) Urine Nitrate (NEGATIVE) Urine Bilirubin (NEGATIVE) Urine Urobilinogen (<1 E.U./dL) E.U./dL Ur Leukocyte Esterase (NEGATIVE) Qasim/uL Urine RBC (0-2) /hpf Urine WBC (0-6) /hpf Ur Epithelial Cells (0-5) /hpf Amorphous Sediment Urine Bacteria (NEG) Urine Other Ur Random Creatinine mg/dL Ur Random Sodium meq/L 01/02/18 01/02/18 01/02/18 Range/Units 16:01 14:00 14:00 WBC (4.5-11.0) 10^3/uL RBC (3.5-6.1) 10^6/uL Hgb (14.0-18.0) g/dL Hct (42.0-52.0) % MCV (80.0-105.0) fl MCH (25.0-35.0) pg MCHC (31.0-37.0) g/dl RDW (11.5-14.5) % Plt Count (120.0-450.0) 10^3/uL MPV (7.0-11.0) fl Gran % (50.0-68.0) % Lymph % (Auto) (22.0-35.0) % [place] % (Auto) (1.0-6.0) % Eos % (Auto) (1.5-5.0) % Baso % (Auto) (0.0-3.0) % Gran # (1.4-6.5) Lymph # (Auto) (1.2-3.4) [place] # (Auto) (0.1-0.6) Eos # (Auto) (0.0-0.7) Baso # (Auto) (0.0-2.0) K/mm3 pCO2 (35-45) mm/Hg pO2 (80-100) mm/Hg HCO3 (21-28) mmol/L ABG pH (7.35-7.45) ABG Total CO2 (22-28) mmol.L ABG O2 Saturation (95-98) % ABG O2 Content (15-23) ML/dl ABG Base Excess (-2.0-3.0) mmol/L ABG Hemoglobin (11.7-17.4) g/dL ABG Carboxyhemoglobin (0.5-1.5) % POC ABG HHb (Measured) (0-5) % ABG Methemoglobin (0.0-3.0) % ABG O2 Capacity (16-24) mL/dl ABG Potassium (3.6-5.2) mmol/L Hgb O2 Saturation (95.0-98.0) % Sodium (132-148) mmol/L Chloride (98-107) mmol/L Glucose (75-110) mg/dl Lactate (0.7-2.1) mmol/L FiO2 % PEEP Pressure Support Potassium (3.6-5.0) mmol/L Carbon Dioxide (21-33) mmol/L Anion Gap (10-20) BUN (7-21) mg/dL Creatinine (0.8-1.5) mg/dl Est GFR ( Amer) Est GFR (Non-Af Amer) POC Glucose (mg/dL) 137 H (65-110) mg/dL Random Glucose (70-110) mg/dL Calcium (8.4-10.5) mg/dL Phosphorus (2.5-4.5) mg/dL Magnesium (1.7-2.2) mg/dL Total Bilirubin (0.2-1.3) mg/dL AST (17-59) U/L ALT (7-56) U/L Alkaline Phosphatase (38-126) U/L Troponin I ng/mL Total Protein (5.8-8.3) g/dL Albumin (3.0-4.8) g/dL Globulin gm/dL Albumin/Globulin Ratio (1.1-1.8) Arterial Blood Potassium (3.6-5.2) mmol/L Urine Color Yellow (YELLOW) Urine Appearance Clear (CLEAR) Urine pH 6.0 (4.7-8.0) Ur Specific [place] 1.025 (1.005-1.035) Urine Protein Negative (<30 mg/dL) mg/dL Urine Glucose (UA) Negative (NEGATIVE) mg/dL Urine Ketones Trace H (NEGATIVE) mg/dL Urine Blood Small H (NEGATIVE) Urine Nitrate Negative (NEGATIVE) Urine Bilirubin Negative (NEGATIVE) Urine Urobilinogen 0.2 (<1 E.U./dL) E.U./dL Ur Leukocyte Esterase Negative (NEGATIVE) Qasim/uL Urine RBC 10 - 15 (0-2) /hpf Urine WBC 0 - 2 (0-6) /hpf Ur Epithelial Cells 0 - 2 (0-5) /hpf Amorphous Sediment Few Urine Bacteria Many (NEG) Urine Other Uyeast Ur Random Creatinine 142 mg/dL Ur Random Sodium 37 meq/L 01/02/18 01/02/18 01/02/18 Range/Units 13:30 11:10 11:02 WBC (4.5-11.0) 10^3/uL RBC (3.5-6.1) 10^6/uL Hgb (14.0-18.0) g/dL Hct (42.0-52.0) % MCV (80.0-105.0) fl MCH (25.0-35.0) pg MCHC (31.0-37.0) g/dl RDW (11.5-14.5) % Plt Count (120.0-450.0) 10^3/uL MPV (7.0-11.0) fl Gran % (50.0-68.0) % Lymph % (Auto) (22.0-35.0) % [place] % (Auto) (1.0-6.0) % Eos % (Auto) (1.5-5.0) % Baso % (Auto) (0.0-3.0) % Gran # (1.4-6.5) Lymph # (Auto) (1.2-3.4) [place] # (Auto) (0.1-0.6) Eos # (Auto) (0.0-0.7) Baso # (Auto) (0.0-2.0) K/mm3 pCO2 45 46 H (35-45) mm/Hg pO2 95.0 209.0 H (80-100) mm/Hg HCO3 22.7 23.2 (21-28) mmol/L ABG pH 7.31 L 7.31 L (7.35-7.45) ABG Total CO2 24.1 24.6 (22-28) mmol.L ABG O2 Saturation 99.2 H 100.0 H (95-98) % ABG O2 Content 12.1 L (15-23) ML/dl ABG Base Excess -3.7 L -3.0 L (-2.0-3.0) mmol/L ABG Hemoglobin 8.4 L (11.7-17.4) g/dL ABG Carboxyhemoglobin 1.6 H (0.5-1.5) % POC ABG HHb (Measured) 0 (0-5) % ABG Methemoglobin 0.8 (0.0-3.0) % ABG O2 Capacity 12.1 L (16-24) mL/dl ABG Potassium 4.0 (3.6-5.2) mmol/L Hgb O2 Saturation 97.6 (95.0-98.0) % Sodium 140.0 (132-148) mmol/L Chloride 113.0 H (98-107) mmol/L Glucose 148 H (75-110) mg/dl Lactate 0.9 (0.7-2.1) mmol/L FiO2 40.0 60.0 % PEEP 5 Pressure Support 5 Potassium (3.6-5.0) mmol/L Carbon Dioxide (21-33) mmol/L Anion Gap (10-20) BUN (7-21) mg/dL Creatinine (0.8-1.5) mg/dl Est GFR ( Amer) Est GFR (Non-Af Amer) POC Glucose (mg/dL) 138 H (65-110) mg/dL Random Glucose (70-110) mg/dL Calcium (8.4-10.5) mg/dL Phosphorus (2.5-4.5) mg/dL Magnesium (1.7-2.2) mg/dL Total Bilirubin (0.2-1.3) mg/dL AST (17-59) U/L ALT (7-56) U/L Alkaline Phosphatase (38-126) U/L Troponin I ng/mL Total Protein (5.8-8.3) g/dL Albumin (3.0-4.8) g/dL Globulin gm/dL Albumin/Globulin Ratio (1.1-1.8) Arterial Blood Potassium 4.0 (3.6-5.2) mmol/L Urine Color (YELLOW) Urine Appearance (CLEAR) Urine pH (4.7-8.0) Ur Specific [place] (1.005-1.035) Urine Protein (<30 mg/dL) mg/dL Urine Glucose (UA) (NEGATIVE) mg/dL Urine Ketones (NEGATIVE) mg/dL Urine Blood (NEGATIVE) Urine Nitrate (NEGATIVE) Urine Bilirubin (NEGATIVE) Urine Urobilinogen (<1 E.U./dL) E.U./dL Ur Leukocyte Esterase (NEGATIVE) Qasim/uL Urine RBC (0-2) /hpf Urine WBC (0-6) /hpf Ur Epithelial Cells (0-5) /hpf Amorphous Sediment Urine Bacteria (NEG) Urine Other Ur Random Creatinine mg/dL Ur Random Sodium meq/L 01/02/18 01/02/18 Range/Units 07:33 06:10 WBC (4.5-11.0) 10^3/uL RBC (3.5-6.1) 10^6/uL Hgb (14.0-18.0) g/dL Hct (42.0-52.0) % MCV (80.0-105.0) fl MCH (25.0-35.0) pg MCHC (31.0-37.0) g/dl RDW (11.5-14.5) % Plt Count (120.0-450.0) 10^3/uL MPV (7.0-11.0) fl Gran % (50.0-68.0) % Lymph % (Auto) (22.0-35.0) % [place] % (Auto) (1.0-6.0) % Eos % (Auto) (1.5-5.0) % Baso % (Auto) (0.0-3.0) % Gran # (1.4-6.5) Lymph # (Auto) (1.2-3.4) [place] # (Auto) (0.1-0.6) Eos # (Auto) (0.0-0.7) Baso # (Auto) (0.0-2.0) K/mm3 pCO2 (35-45) mm/Hg pO2 (80-100) mm/Hg HCO3 (21-28) mmol/L ABG pH (7.35-7.45) ABG Total CO2 (22-28) mmol.L ABG O2 Saturation (95-98) % ABG O2 Content (15-23) ML/dl ABG Base Excess (-2.0-3.0) mmol/L ABG Hemoglobin (11.7-17.4) g/dL ABG Carboxyhemoglobin (0.5-1.5) % POC ABG HHb (Measured) (0-5) % ABG Methemoglobin (0.0-3.0) % ABG O2 Capacity (16-24) mL/dl ABG Potassium (3.6-5.2) mmol/L Hgb O2 Saturation (95.0-98.0) % Sodium (132-148) mmol/L Chloride (98-107) mmol/L Glucose (75-110) mg/dl Lactate (0.7-2.1) mmol/L FiO2 % PEEP Pressure Support Potassium (3.6-5.0) mmol/L Carbon Dioxide (21-33) mmol/L Anion Gap (10-20) BUN (7-21) mg/dL Creatinine (0.8-1.5) mg/dl Est GFR ( Amer) Est GFR (Non-Af Amer) POC Glucose (mg/dL) 166 H (65-110) mg/dL Random Glucose (70-110) mg/dL Calcium (8.4-10.5) mg/dL Phosphorus (2.5-4.5) mg/dL Magnesium (1.7-2.2) mg/dL Total Bilirubin (0.2-1.3) mg/dL AST (17-59) U/L ALT (7-56) U/L Alkaline Phosphatase (38-126) U/L Troponin I 0.28 H* D ng/mL Total Protein (5.8-8.3) g/dL Albumin (3.0-4.8) g/dL Globulin gm/dL Albumin/Globulin Ratio (1.1-1.8) Arterial Blood Potassium (3.6-5.2) mmol/L Urine Color (YELLOW) Urine Appearance (CLEAR) Urine pH (4.7-8.0) Ur Specific [place] (1.005-1.035) Urine Protein (<30 mg/dL) mg/dL Urine Glucose (UA) (NEGATIVE) mg/dL Urine Ketones (NEGATIVE) mg/dL Urine Blood (NEGATIVE) Urine Nitrate (NEGATIVE) Urine Bilirubin (NEGATIVE) Urine Urobilinogen (<1 E.U./dL) E.U./dL Ur Leukocyte Esterase (NEGATIVE) Qasim/uL Urine RBC (0-2) /hpf Urine WBC (0-6) /hpf Ur Epithelial Cells (0-5) /hpf Amorphous Sediment Urine Bacteria (NEG) Urine Other Ur Random Creatinine mg/dL Ur Random Sodium meq/L Laboratory Results - last 24 hr 01/02/18 01/02/18 01/02/18 06:10 07:33 11:02 WBC RBC Hgb Hct MCV MCH MCHC RDW Plt Count MPV Gran % Lymph % (Auto) [place] % (Auto) Eos % (Auto) Baso % (Auto) Gran # Lymph # (Auto) [place] # (Auto) Eos # (Auto) Baso # (Auto) pCO2 pO2 HCO3 ABG pH ABG Total CO2 ABG O2 Saturation ABG O2 Content ABG Base Excess ABG Hemoglobin ABG Carboxyhemoglobin POC ABG HHb (Measured) ABG Methemoglobin ABG O2 Capacity ABG Potassium Hgb O2 Saturation Sodium Chloride Glucose Lactate FiO2 PEEP Pressure Support Potassium Carbon Dioxide Anion Gap BUN Creatinine Est GFR ( Amer) Est GFR (Non-Af Amer) POC Glucose (mg/dL) 166 H 138 H Random Glucose Calcium Phosphorus Magnesium Total Bilirubin AST ALT Alkaline Phosphatase Troponin I 0.28 H* D Total Protein Albumin Globulin Albumin/Globulin Ratio Arterial Blood Potassium Urine Color Urine Appearance Urine pH Ur Specific [place] Urine Protein Urine Glucose (UA) Urine Ketones Urine Blood Urine Nitrate Urine Bilirubin Urine Urobilinogen Ur Leukocyte Esterase Urine RBC Urine WBC Ur Epithelial Cells Amorphous Sediment Urine Bacteria Urine Other Ur Random Creatinine Ur Random Sodium 01/02/18 01/02/18 01/02/18 11:10 13:30 14:00 WBC RBC Hgb Hct MCV MCH MCHC RDW Plt Count MPV Gran % Lymph % (Auto) [place] % (Auto) Eos % (Auto) Baso % (Auto) Gran # Lymph # (Auto) [place] # (Auto) Eos # (Auto) Baso # (Auto) pCO2 46 H 45 pO2 209.0 H 95.0 HCO3 23.2 22.7 ABG pH 7.31 L 7.31 L ABG Total CO2 24.6 24.1 ABG O2 Saturation 100.0 H 99.2 H ABG O2 Content 12.1 L ABG Base Excess -3.0 L -3.7 L ABG Hemoglobin 8.4 L ABG Carboxyhemoglobin 1.6 H POC ABG HHb (Measured) 0 ABG Methemoglobin 0.8 ABG O2 Capacity 12.1 L ABG Potassium 4.0 Hgb O2 Saturation 97.6 Sodium 140.0 Chloride 113.0 H Glucose 148 H Lactate 0.9 FiO2 60.0 40.0 PEEP 5 Pressure Support 5 Potassium Carbon Dioxide Anion Gap BUN Creatinine Est GFR ( Amer) Est GFR (Non-Af Amer) POC Glucose (mg/dL) Random Glucose Calcium Phosphorus Magnesium Total Bilirubin AST ALT Alkaline Phosphatase Troponin I Total Protein Albumin Globulin Albumin/Globulin Ratio Arterial Blood Potassium 4.0 Urine Color Urine Appearance Urine pH Ur Specific [place] Urine Protein Urine Glucose (UA) Urine Ketones Urine Blood Urine Nitrate Urine Bilirubin Urine Urobilinogen Ur Leukocyte Esterase Urine RBC Urine WBC Ur Epithelial Cells Amorphous Sediment Urine Bacteria Urine Other Ur Random Creatinine 142 Ur Random Sodium 37 01/02/18 01/02/18 01/02/18 14:00 16:01 22:15 WBC RBC Hgb Hct MCV MCH MCHC RDW Plt Count MPV Gran % Lymph % (Auto) [place] % (Auto) Eos % (Auto) Baso % (Auto) Gran # Lymph # (Auto) [place] # (Auto) Eos # (Auto) Baso # (Auto) pCO2 pO2 HCO3 ABG pH ABG Total CO2 ABG O2 Saturation ABG O2 Content ABG Base Excess ABG Hemoglobin ABG Carboxyhemoglobin POC ABG HHb (Measured) ABG Methemoglobin ABG O2 Capacity ABG Potassium Hgb O2 Saturation Sodium Chloride Glucose Lactate FiO2 PEEP Pressure Support Potassium Carbon Dioxide Anion Gap BUN Creatinine Est GFR ( Amer) Est GFR (Non-Af Amer) POC Glucose (mg/dL) 137 H 139 H Random Glucose Calcium Phosphorus Magnesium Total Bilirubin AST ALT Alkaline Phosphatase Troponin I Total Protein Albumin Globulin Albumin/Globulin Ratio Arterial Blood Potassium Urine Color Yellow Urine Appearance Clear Urine pH 6.0 Ur Specific [place] 1.025 Urine Protein Negative Urine Glucose (UA) Negative Urine Ketones Trace H Urine Blood Small H Urine Nitrate Negative Urine Bilirubin Negative Urine Urobilinogen 0.2 Ur Leukocyte Esterase Negative Urine RBC 10 - 15 Urine WBC 0 - 2 Ur Epithelial Cells 0 - 2 Amorphous Sediment Few Urine Bacteria Many Urine Other Uyeast Ur Random Creatinine Ur Random Sodium 01/03/18 01/03/18 07:10 07:10 WBC 13.1 H RBC 2.71 L Hgb 7.9 L Hct 24.0 L MCV 88.6 MCH 29.2 MCHC 32.9 RDW 15.2 H Plt Count 128 MPV 9.6 Gran % 88.9 H Lymph % (Auto) 6.0 L [place] % (Auto) 5.0 Eos % (Auto) 0.0 L Baso % (Auto) 0.1 Gran # 11.65 H Lymph # (Auto) 0.8 L [place] # (Auto) 0.7 H Eos # (Auto) 0.0 Baso # (Auto) 0.01 pCO2 pO2 HCO3 ABG pH ABG Total CO2 ABG O2 Saturation ABG O2 Content ABG Base Excess ABG Hemoglobin ABG Carboxyhemoglobin POC ABG HHb (Measured) ABG Methemoglobin ABG O2 Capacity ABG Potassium Hgb O2 Saturation Sodium 141 Chloride 112 H Glucose Lactate FiO2 PEEP Pressure Support Potassium 3.6 Carbon Dioxide 24 Anion Gap 9 L BUN 9 Creatinine 0.9 Est GFR ( Amer) > 60 Est GFR (Non-Af Amer) > 60 POC Glucose (mg/dL) Random Glucose 158 H Calcium 7.1 L Phosphorus 2.2 L Magnesium 2.0 Total Bilirubin 2.7 H AST 34 ALT 32 Alkaline Phosphatase 81 Troponin I Total Protein 5.1 L Albumin 2.5 L Globulin 2.6 Albumin/Globulin Ratio 0.9 L Arterial Blood Potassium Urine Color Urine Appearance Urine pH Ur Specific [place] Urine Protein Urine Glucose (UA) Urine Ketones Urine Blood Urine Nitrate Urine Bilirubin Urine Urobilinogen Ur Leukocyte Esterase Urine RBC Urine WBC Ur Epithelial Cells Amorphous Sediment Urine Bacteria Urine Other Ur Random Creatinine Ur Random Sodium Fingerstick Blood Sugar Results: 139 Review of Systems - Review of Systems Review of Systems: per [facility] Critical Care Progress Note - Nutrition Nutrition: Nutrition Category Date Time Status NPO Diet [DIET] Diets 01/01/18 Breakfast Ordered Assessment/Plan - Assessment and Plan (Free Text) Assessment: 77 y/o M with PMHx of perforated diverticulitis s/p nishant procedure, pod 2 s/p colostomy reversal, stage 4 mantle cell lymphoma, lung ca s/p wedge resection, cad s/p stents x 4, dm, htn, copd admitted to ICU for post-operative respiratory failure s/p extubation. Rapid response was called in PACU as patient was unresponsive and not breathing. He was found to be in hypercapnic respiratory acidosis. He was subsequently sedated, intubated and placed on ventilator overnight. Extubated yesterday afternoon, intially placed on venti mask and currently on 3L NC. Plan: Neuro: Alert, awake & oriented x 3 No FND Extubated on 3L NC no FND Currently off of precedex Cardio: Normotensive Not on any vasopressors maintain map >65 tachycardic, likely secondary to pain/anxiety beta-blockers held elevated troponin. trend f/u cardiology recs Pulmonary: Respiratory acidosis Extubated 01/02 Encourage early mobilization Pulmonary toilet Incentive spirometry OOB to chair hob elevated to 35 degrees oral hygiene O2 sat >90% GI: s/o colostomy reversal abdominal dressing in place. KERI draining serosanguinous fluid No signs of acute abdomen, active bleeding : urine output past 12 hrs 800mls morales inplace draining non-bloody urine ID: lactate improved on most recent abg meropenem/vanc per ID recs Case seen, examined and discussed with attending physician, Dr. Miller <Rizwan Miller - Last Filed: 01/03/18 16:25> CCU Objective - Vital Signs / Intake & Output Vital Signs (Last 4 hours): Vital Signs Temp Pulse Resp BP Pulse Ox 01/03/18 16:00 103 H 16 134/71 99 01/03/18 15:24 135/83 01/03/18 15:23 113 H 40 H 01/03/18 15:00 113 H 23 96 01/03/18 14:00 100 H 38 H 128/69 78 L 01/03/18 13:39 98.1 F 100 H 21 128/84 01/03/18 13:00 106 H 34 H 128/84 93 L Intake and Output (Last 8hrs): Intake & Output 01/03/18 01/03/18 01/03/18 06:59 14:59 22:59 Intake Total 1285 Output Total 810 Balance 475 Weight 68.946 kg Intake: IV 1000 IVF 800 Precedex 200 Oral 0 Blood Product 270 Apheresis Rbc Cp2d As3 Lr 270 2nd Unit [id number] Other 15 Apheresis Rbc Cp2d As3 Lr 15 2nd Unit [id number] Output: Drainage 10 Left Abdomen 10 Urine 800 Urethral (Morales) 800 Other: # Bowel Movements 0 - Medications Active Medications: Active Medications Generic Name Dose Route Start Last Admin Trade Name Freq PRN Reason Stop Dose Admin Acetaminophen 650 mg 12/30/17 17:54 Tylenol 325mg Tab PO Q6H PRN Fever >100.4 F Albuterol/Ipratropium 3 ml 01/02/18 14:00 01/03/18 13:04 Duoneb 3 Mg/0.5 Mg (3 Ml) Ud IH 3 ml [id number] ALEX Administration Heparin Sodium (Porcine) 5,000 units 12/30/17 17:45 01/03/18 06:04 Heparin SC 5,000 units Q12H ALEX Administration Protocol Hydromorphone HCl 0.5 mg 01/02/18 17:13 01/03/18 13:20 Dilaudid IVP 0.5 mg Q3 PRN Administration Pain, severe (8-10) Meropenem 1 gm in 50 mls @ 100 mls/hr 01/01/18 22:00 01/03/18 14:09 Merrem Iv 1 Gm Premix IVPB 01/10/18 22:01 100 mls/hr Q8 ALEX Administration Protocol Sodium Chloride 1,000 mls @ 50 mls/hr 01/03/18 08:00 01/03/18 10:25 Sodium Chloride 0.9% IV 50 mls/hr .Q20H ALEX Administration Potassium Phosphate 15 mmole/ 255 mls @ 42.5 mls/hr 01/03/18 12:10 Sodium Chloride IV 01/03/18 18:09 ONCE ONE Insulin Human Regular 0 units 01/03/18 16:15 Humulin R Low SC Q6H ALEX Protocol Metoprolol Tartrate 25 mg 12/31/17 10:00 12/31/17 09:41 Lopressor PO 25 mg DAILY ALEX Administration Metoprolol Tartrate 12.5 mg 12/30/17 18:00 12/31/17 17:26 Lopressor PO 12.5 mg QPM ALEX Administration Montelukast Sodium 10 mg 12/30/17 18:00 12/31/17 17:26 Singulair PO 10 mg QPM ALEX Administration Non-Formulary Medication 8 mg 12/30/17 19:26 12/31/17 17:27 Rapaflo PO 8 mg QPM ALEX Administration Non-Formulary Medication 500 mg 12/30/17 19:28 12/31/17 17:28 Ranexa PO 500 mg BID ALEX Administration Ondansetron HCl 4 mg 01/01/18 13:58 Zofran Inj IVP Q4H PRN Nausea/Vomiting Oxybutynin Chloride 5 mg 12/30/17 22:00 12/31/17 22:36 Ditropan Tab PO 5 mg HS ALEX Administration Pantoprazole Sodium 40 mg 01/03/18 10:00 01/03/18 10:20 Protonix Inj IVP 40 mg DAILY ALEX Administration - Patient Studies Lab Studies: Microbiology Studies 01/01/18 23:30 Urine Culture - Final Urine,Morales No Growth (<1,000 CFU/ML) 01/01/18 19:47 Blood Culture - Preliminary Blood NO GROWTH AFTER 24 HOURS 01/01/18 19:47 Blood Culture - Preliminary Blood NO GROWTH AFTER 24 HOURS 01/01/18 16:49 MRSA Culture (Admit) - Final Naris MRSA NOT DETECTED 01/02/18 12:00 Gram Stain - Final Sputum Lab Studies 01/03/18 01/03/18 01/03/18 Range/Units 16:15 16:00 11:03 WBC 12.6 H (4.5-11.0) 10^3/uL RBC 3.19 L (3.5-6.1) 10^6/uL Hgb 9.3 L (14.0-18.0) g/dL Hct 28.0 L (42.0-52.0) % MCV 87.8 (80.0-105.0) fl MCH 29.2 (25.0-35.0) pg MCHC 33.2 (31.0-37.0) g/dl RDW 15.0 H (11.5-14.5) % Plt Count 116 L (120.0-450.0) 10^3/uL MPV 9.6 (7.0-11.0) fl Gran % 92.8 H (50.0-68.0) % Lymph % (Auto) 4.2 L (22.0-35.0) % [place] % (Auto) 2.9 (1.0-6.0) % Eos % (Auto) 0.0 L (1.5-5.0) % Baso % (Auto) 0.1 (0.0-3.0) % Gran # 11.71 H (1.4-6.5) Lymph # (Auto) 0.5 L (1.2-3.4) [place] # (Auto) 0.4 (0.1-0.6) Eos # (Auto) 0.0 (0.0-0.7) Baso # (Auto) 0.01 (0.0-2.0) K/mm3 Sodium (132-148) mmol/L Potassium (3.6-5.0) mmol/L Chloride (98-107) mmol/L Carbon Dioxide (21-33) mmol/L Anion Gap (10-20) BUN (7-21) mg/dL Creatinine (0.8-1.5) mg/dl Est GFR ( Amer) Est GFR (Non-Af Amer) POC Glucose (mg/dL) 177 H 197 H (65-110) mg/dL Random Glucose (70-110) mg/dL Calcium (8.4-10.5) mg/dL Phosphorus (2.5-4.5) mg/dL Magnesium (1.7-2.2) mg/dL Total Bilirubin (0.2-1.3) mg/dL AST (17-59) U/L ALT (7-56) U/L Alkaline Phosphatase (38-126) U/L Troponin I ng/mL Total Protein (5.8-8.3) g/dL Albumin (3.0-4.8) g/dL Globulin gm/dL Albumin/Globulin Ratio (1.1-1.8) Blood Type Antibody Screen Crossmatch BBK History Checked 01/03/18 01/03/18 01/03/18 Range/Units 08:15 07:30 07:10 WBC (4.5-11.0) 10^3/uL RBC (3.5-6.1) 10^6/uL Hgb (14.0-18.0) g/dL Hct (42.0-52.0) % MCV (80.0-105.0) fl MCH (25.0-35.0) pg MCHC (31.0-37.0) g/dl RDW (11.5-14.5) % Plt Count (120.0-450.0) 10^3/uL MPV (7.0-11.0) fl Gran % (50.0-68.0) % Lymph % (Auto) (22.0-35.0) % [place] % (Auto) (1.0-6.0) % Eos % (Auto) (1.5-5.0) % Baso % (Auto) (0.0-3.0) % Gran # (1.4-6.5) Lymph # (Auto) (1.2-3.4) [place] # (Auto) (0.1-0.6) Eos # (Auto) (0.0-0.7) Baso # (Auto) (0.0-2.0) K/mm3 Sodium 141 (132-148) mmol/L Potassium 3.6 (3.6-5.0) mmol/L Chloride 112 H (98-107) mmol/L Carbon Dioxide 24 (21-33) mmol/L Anion Gap 9 L (10-20) BUN 9 (7-21) mg/dL Creatinine 0.9 (0.8-1.5) mg/dl Est GFR ( Amer) > 60 Est GFR (Non-Af Amer) > 60 POC Glucose (mg/dL) 168 H (65-110) mg/dL Random Glucose 158 H (70-110) mg/dL Calcium 7.1 L (8.4-10.5) mg/dL Phosphorus 2.2 L (2.5-4.5) mg/dL Magnesium 2.0 (1.7-2.2) mg/dL Total Bilirubin 2.7 H (0.2-1.3) mg/dL AST 34 (17-59) U/L ALT 32 (7-56) U/L Alkaline Phosphatase 81 (38-126) U/L Troponin I 0.63 H* D ng/mL Total Protein 5.1 L (5.8-8.3) g/dL Albumin 2.5 L (3.0-4.8) g/dL Globulin 2.6 gm/dL Albumin/Globulin Ratio 0.9 L (1.1-1.8) Blood Type Antibody Screen Crossmatch BBK History Checked 01/03/18 01/02/18 01/01/18 Range/Units 07:10 22:15 07:45 WBC 13.1 H (4.5-11.0) 10^3/uL RBC 2.71 L (3.5-6.1) 10^6/uL Hgb 7.9 L (14.0-18.0) g/dL Hct 24.0 L (42.0-52.0) % MCV 88.6 (80.0-105.0) fl MCH 29.2 (25.0-35.0) pg MCHC 32.9 (31.0-37.0) g/dl RDW 15.2 H (11.5-14.5) % Plt Count 128 (120.0-450.0) 10^3/uL MPV 9.6 (7.0-11.0) fl Gran % 88.9 H (50.0-68.0) % Lymph % (Auto) 6.0 L (22.0-35.0) % [place] % (Auto) 5.0 (1.0-6.0) % Eos % (Auto) 0.0 L (1.5-5.0) % Baso % (Auto) 0.1 (0.0-3.0) % Gran # 11.65 H (1.4-6.5) Lymph # (Auto) 0.8 L (1.2-3.4) [place] # (Auto) 0.7 H (0.1-0.6) Eos # (Auto) 0.0 (0.0-0.7) Baso # (Auto) 0.01 (0.0-2.0) K/mm3 Sodium (132-148) mmol/L Potassium (3.6-5.0) mmol/L Chloride (98-107) mmol/L Carbon Dioxide (21-33) mmol/L Anion Gap (10-20) BUN (7-21) mg/dL Creatinine (0.8-1.5) mg/dl Est GFR ( Amer) Est GFR (Non-Af Amer) POC Glucose (mg/dL) 139 H (65-110) mg/dL Random Glucose (70-110) mg/dL Calcium (8.4-10.5) mg/dL Phosphorus (2.5-4.5) mg/dL Magnesium (1.7-2.2) mg/dL Total Bilirubin (0.2-1.3) mg/dL AST (17-59) U/L ALT (7-56) U/L Alkaline Phosphatase (38-126) U/L Troponin I ng/mL Total Protein (5.8-8.3) g/dL Albumin (3.0-4.8) g/dL Globulin gm/dL Albumin/Globulin Ratio (1.1-1.8) Blood Type A NEGATIVE Antibody Screen Negative Crossmatch See Detail BBK History Checked Patient has bt Laboratory Results - last 24 hr 01/01/18 01/02/18 01/03/18 07:45 22:15 07:10 WBC 13.1 H RBC 2.71 L Hgb 7.9 L Hct 24.0 L MCV 88.6 MCH 29.2 MCHC 32.9 RDW 15.2 H Plt Count 128 MPV 9.6 Gran % 88.9 H Lymph % (Auto) 6.0 L [place] % (Auto) 5.0 Eos % (Auto) 0.0 L Baso % (Auto) 0.1 Gran # 11.65 H Lymph # (Auto) 0.8 L [place] # (Auto) 0.7 H Eos # (Auto) 0.0 Baso # (Auto) 0.01 Sodium Potassium Chloride Carbon Dioxide Anion Gap BUN Creatinine Est GFR ( Amer) Est GFR (Non-Af Amer) POC Glucose (mg/dL) 139 H Random Glucose Calcium Phosphorus Magnesium Total Bilirubin AST ALT Alkaline Phosphatase Troponin I Total Protein Albumin Globulin Albumin/Globulin Ratio Blood Type A NEGATIVE Antibody Screen Negative Crossmatch See Detail BBK History Checked Patient has bt 01/03/18 01/03/18 01/03/18 07:10 07:30 08:15 WBC RBC Hgb Hct MCV MCH MCHC RDW Plt Count MPV Gran % Lymph % (Auto) [place] % (Auto) Eos % (Auto) Baso % (Auto) Gran # Lymph # (Auto) [place] # (Auto) Eos # (Auto) Baso # (Auto) Sodium 141 Potassium 3.6 Chloride 112 H Carbon Dioxide 24 Anion Gap 9 L BUN 9 Creatinine 0.9 Est GFR ( Amer) > 60 Est GFR (Non-Af Amer) > 60 POC Glucose (mg/dL) 168 H Random Glucose 158 H Calcium 7.1 L Phosphorus 2.2 L Magnesium 2.0 Total Bilirubin 2.7 H AST 34 ALT 32 Alkaline Phosphatase 81 Troponin I 0.63 H* D Total Protein 5.1 L Albumin 2.5 L Globulin 2.6 Albumin/Globulin Ratio 0.9 L Blood Type Antibody Screen Crossmatch BBK History Checked 01/03/18 01/03/18 01/03/18 11:03 16:00 16:15 WBC 12.6 H RBC 3.19 L Hgb 9.3 L Hct 28.0 L MCV 87.8 MCH 29.2 MCHC 33.2 RDW 15.0 H Plt Count 116 L MPV 9.6 Gran % 92.8 H Lymph % (Auto) 4.2 L [place] % (Auto) 2.9 Eos % (Auto) 0.0 L Baso % (Auto) 0.1 Gran # 11.71 H Lymph # (Auto) 0.5 L [place] # (Auto) 0.4 Eos # (Auto) 0.0 Baso # (Auto) 0.01 Sodium Potassium Chloride Carbon Dioxide Anion Gap BUN Creatinine Est GFR ( Amer) Est GFR (Non-Af Amer) POC Glucose (mg/dL) 197 H 177 H Random Glucose Calcium Phosphorus Magnesium Total Bilirubin AST ALT Alkaline Phosphatase Troponin I Total Protein Albumin Globulin Albumin/Globulin Ratio Blood Type Antibody Screen Crossmatch BBK History Checked EKG/Cardiology Studies: Cardiology / EKG Studies 01/03/18 09:24 ELECTROCARDIOGRAM Routine Comment: s/p Abdominal surgery Reason For Exam: CAD PRE OP:: N Does Patient Have a Pacemaker?: No Critical Care Progress Note - Nutrition Nutrition: Nutrition Category Date Time Status NPO Diet [DIET] Diets 01/01/18 Breakfast Ordered Addendum Addendum: 01/03/18 16:25 ICU Attending Addendum Patient seen and examined. Case reviewed on round with housestaff. Agree with resident note above with the following additions/exceptions: 77 M admitted to ICU after having resp failure post-op colostomy reversal which has now resolved. He has a hx of perforated diverticulitis s/p nishant procedure now s/p colostomy reversal. He also has CAD with hx of 4 stents in need to cath again and so surgery performed prior cath incase he needs dual antiplat if stent is placed. Other hx include stage 4 mantle cell lymphoma, lung ca s/p wedge resection, htn and copd. He is extubated and on minimal supplemental oxygen via NC. HB drop possibly post-op however concern for RP bleed. Agree with CT abd/pelvis if repeat HB after 1 unit transfusion suggest on-going bleeding. TNI elevated, cardio on board. Follow recs Eventually will need cath. Will try and resume BB if BP tolerates. Surgery on board following DVT ppx on hepSq for now, will hold if HB drops more GI ppx with Protonix Rest of care as above Rizwan Miller MD ICU Attending CC Time: 30 mins rest of care above Rizwan Miller MD [employer]
--- NOTE | 2018-01-03 08:19 | CP.PCM.CON ---
<Mariano Gould - Last Filed: 01/03/18 17:28> History of Present Illness - History of Present Illness History of Present Illness: Mariano Gould, PGY-[address] Perez Mr. Marques is a 77 male with PMHx HTN, DM, HLD, Wedge resection for lung CA, mantle cell lymphoma s/p chemoradiation, CAD s/p stents and s/p cardiac cath 12/13/17 which showed moderate RCA and posterior L ventricular stenosis along with mild restenosis in LAD, who presents after recent reversal of colostomy with respiratory failure, CO2 retention, and elevated troponin. Patient was extubated yesterday. Currently denies chest pain but reports shortness of breath and back pain. Appears anxious. No acute events reported overnight. Currently on nasal cannula. Past Patient History - Infectious Disease Hx of Infectious Diseases: None - Tetanus Immunizations Tetanus Immunization: Unknown - Past Medical History & Family History Past Medical History?: Yes - Past Social History Smoking Status: Never Smoked - CARDIAC Hx Pacemaker: No - PULMONARY Hx Respiratory Disorders: Yes Hx Pneumonia: Yes - NEUROLOGICAL Hx Paralysis: No - HEENT Hx HEENT Problems: Yes Hx Cataracts: [facility] - RENAL Hx Chronic Kidney Disease: No - ENDOCRINE/METABOLIC Hx Diabetes Mellitus Type 2: Yes - HEMATOLOGICAL/ONCOLOGICAL Hx Blood Transfusions: Yes Hx Blood Transfusion Reaction: No - INTEGUMENTARY Hx Dermatological Problems: No - MUSCULOSKELETAL/RHEUMATOLOGICAL Hx Musculoskeletal Disorders: Yes - GASTROINTESTINAL Hx Gastrointestinal Disorders: Yes (Post perfrorated sigmond colon-post exploratory lap sigmoidectomy,colostomy) Hx Colostomy: Yes - GENITOURINARY/GYNECOLOGICAL Hx Genitourinary Disorders: Yes Hx Prostate Problems: Yes (bph,prostectomy) - PSYCHIATRIC Hx Substance Use: No - SURGICAL HISTORY Hx Cardiac Catheterization: Yes (sents x4) Hx Musculoskeletal Surgery: Yes Hx Open Heart Surgery: Yes - ANESTHESIA Hx Anesthesia Reactions: No Hx Malignant Hyperthermia: No Meds Allergies/Adverse Reactions: Allergies Allergy/AdvReac Type Severity Reaction Status Date / Time azithromycin Allergy Severe ANGIOEDEMA Verified 12/30/17 14:48 erythromycin base Allergy Severe ANGIOEDEMA Verified 12/30/17 14:48 Penicillins Allergy Severe ANAPHYLAXIS Verified 12/30/17 14:48 cephalexin monohydrate Allergy Intermediate RASH Verified 12/30/17 14:48 [From Keflex] gabapentin Allergy Intermediate RASH Verified 12/30/17 14:48 pregabalin Allergy Intermediate RASH Verified 12/30/17 14:48 Sulfa (Sulfonamide Allergy Intermediate RASH Verified 12/30/17 14:48 Antibiotics) nitro paste Allergy Intermediate DIZZINESS/H Uncoded 12/30/17 14:48 YPOTENSION Imbrovica Allergy FEVER Uncoded 12/30/17 14:48 - Medications Medications: Current Medications Acetaminophen (Tylenol 325mg Tab) 650 mg PO Q6H PRN PRN Reason: Fever >100.4 F Albuterol/Ipratropium (Duoneb 3 Mg/0.5 Mg (3 Ml) Ud) 3 ml IH [id number] ALEX Last Admin: 01/03/18 07:05 Dose: 3 ml Heparin Sodium (Porcine) (Heparin) 5,000 units SC Q12H [facility]; Protocol Last Admin: 01/03/18 06:04 Dose: 5,000 units Hydromorphone HCl (Dilaudid) 0.5 mg IVP Q3 PRN PRN Reason: Pain, severe (8-10) Last Admin: 01/03/18 03:15 Dose: 0.5 mg Propofol (Diprivan) 1,000 mg in 100 mls @ 2.014 mls/hr IV .Q24H PRN; Protocol PRN Reason: TITRATE PER MD ORDER Last Titration: 01/02/18 09:30 Dose: 0 mcg/kg/min, 0 mls/hr Meropenem (Merrem Iv 1 Gm Premix) 1 gm in 50 mls @ 100 mls/hr IVPB Q8 [facility]; Protocol Stop: 01/10/18 22:01 Last Admin: 01/03/18 06:04 Dose: 100 mls/hr Vancomycin HCl (Vancomycin 1gm) 1 gm in 250 mls @ 167 mls/hr IVPB Q12 [facility]; Protocol Stop: 01/10/18 22:01 Last Admin: 01/02/18 10:07 Dose: 167 mls/hr Dexmedetomidine HCl (Precedex 400mcg/100ml) 400 mcg in 100 mls @ 3.361 mls/hr IV .Q24H PRN; Protocol PRN Reason: Agitation Last Titration: 01/02/18 14:30 Dose: 0 mcg/kg/hr, 0 mls/hr Potassium Chloride (Potassium Chloride 20 Meq/100 Ml) 20 meq in 100 mls @ 50 mls/hr IVPB ONCE ONE Stop: 01/03/18 09:49 Sodium Chloride (Sodium Chloride 0.9%) 1,000 mls @ 50 mls/hr IV .Q20H [facility] Insulin Human Regular (Humulin R Low) 0 units SC ACHS [facility]; Protocol Last Admin: 01/02/18 22:00 Dose: Not Given Metoprolol Tartrate (Lopressor) 25 mg PO DAILY [facility] Last Admin: 12/31/17 09:41 Dose: 25 mg Metoprolol Tartrate (Lopressor) 12.5 mg PO QPM [facility] Last Admin: 12/31/17 17:26 Dose: 12.5 mg Montelukast Sodium (Singulair) 10 mg PO QPM [facility] Last Admin: 12/31/17 17:26 Dose: 10 mg Nitroglycerin (Nitro-Bid 2% Oint) 0.5 ea TOP Q6 [facility] Last Admin: 01/03/18 06:05 Dose: 0.5 ea Non-Formulary Medication (Rapaflo) 8 mg PO QPM [facility] Last Admin: 12/31/17 17:27 Dose: 8 mg Non-Formulary Medication (Ranexa) 500 mg PO BID [facility] Last Admin: 12/31/17 17:28 Dose: 500 mg Ondansetron HCl (Zofran Inj) 4 mg IVP Q4H PRN PRN Reason: Nausea/Vomiting Oxybutynin Chloride (Ditropan Tab) 5 mg PO HS [facility] Last Admin: 12/31/17 22:36 Dose: 5 mg Pantoprazole Sodium (Protonix Inj) 40 mg IVP DAILY [facility] Physical Exam - Additional Findings Additional findings: - Constitutional Appears: No Acute Distress - Head Exam Head Exam: ATRAUMATIC, NORMOCEPHALIC - Eye Exam Eye Exam: Normal appearance, PERRL - ENT Exam Moist mucuous membranes - Neck Exam Neck Exam: absent: Lymphadenopathy, Tenderness, Thyromegaly - Respiratory Exam Respiratory Exam: Severe diffuse Wheezes bilaterally - Cardiovascular Exam Cardiovascular Exam: Tachycardia, REGULAR RHYTHM, +S1, +S2 - GI/Abdominal Exam GI & Abdominal Exam: Soft, Diffusely TTP with facial grimacing, Normal Bowel Sounds Additional comments: Surgical site noted to be without signs of clinical infection of surrounding soft tissue Back pain likely secondary to fluid collection in retroperitoneum - Extremities Exam Extremities Exam: absent: Calf Tenderness - Skin Skin Exam: Dry, Warm Results - Vital Signs Recent Vital Signs: Last Vital Signs Temp 99 F 01/03/18 04:00 Pulse 103 H 01/03/18 06:13 Resp 35 H 01/03/18 06:13 BP 110/63 01/03/18 06:13 Pulse Ox 91 L 01/03/18 06:13 - Labs Result Diagrams: 01/03/18 16:00 01/03/18 07:10 Labs: Laboratory Results - last 24 hr 01/02/18 01/02/18 01/02/18 06:10 07:33 11:02 WBC RBC Hgb Hct MCV MCH MCHC RDW Plt Count MPV Gran % Lymph % (Auto) [place] % (Auto) Eos % (Auto) Baso % (Auto) Gran # Lymph # (Auto) [place] # (Auto) Eos # (Auto) Baso # (Auto) pCO2 pO2 HCO3 ABG pH ABG Total CO2 ABG O2 Saturation ABG O2 Content ABG Base Excess ABG Hemoglobin ABG Carboxyhemoglobin POC ABG HHb (Measured) ABG Methemoglobin ABG O2 Capacity ABG Potassium Hgb O2 Saturation Sodium Chloride Glucose Lactate FiO2 PEEP Pressure Support Potassium Carbon Dioxide Anion Gap BUN Creatinine Est GFR ( Amer) Est GFR (Non-Af Amer) POC Glucose (mg/dL) 166 H 138 H Random Glucose Calcium Phosphorus Magnesium Total Bilirubin AST ALT Alkaline Phosphatase Troponin I 0.28 H* D Total Protein Albumin Globulin Albumin/Globulin Ratio Arterial Blood Potassium Urine Color Urine Appearance Urine pH Ur Specific [place] Urine Protein Urine Glucose (UA) Urine Ketones Urine Blood Urine Nitrate Urine Bilirubin Urine Urobilinogen Ur Leukocyte Esterase Urine RBC Urine WBC Ur Epithelial Cells Amorphous Sediment Urine Bacteria Urine Other Ur Random Creatinine Ur Random Sodium 01/02/18 01/02/18 01/02/18 11:10 13:30 14:00 WBC RBC Hgb Hct MCV MCH MCHC RDW Plt Count MPV Gran % Lymph % (Auto) [place] % (Auto) Eos % (Auto) Baso % (Auto) Gran # Lymph # (Auto) [place] # (Auto) Eos # (Auto) Baso # (Auto) pCO2 46 H 45 pO2 209.0 H 95.0 HCO3 23.2 22.7 ABG pH 7.31 L 7.31 L ABG Total CO2 24.6 24.1 ABG O2 Saturation 100.0 H 99.2 H ABG O2 Content 12.1 L ABG Base Excess -3.0 L -3.7 L ABG Hemoglobin 8.4 L ABG Carboxyhemoglobin 1.6 H POC ABG HHb (Measured) 0 ABG Methemoglobin 0.8 ABG O2 Capacity 12.1 L ABG Potassium 4.0 Hgb O2 Saturation 97.6 Sodium 140.0 Chloride 113.0 H Glucose 148 H Lactate 0.9 FiO2 60.0 40.0 PEEP 5 Pressure Support 5 Potassium Carbon Dioxide Anion Gap BUN Creatinine Est GFR ( Amer) Est GFR (Non-Af Amer) POC Glucose (mg/dL) Random Glucose Calcium Phosphorus Magnesium Total Bilirubin AST ALT Alkaline Phosphatase Troponin I Total Protein Albumin Globulin Albumin/Globulin Ratio Arterial Blood Potassium 4.0 Urine Color Urine Appearance Urine pH Ur Specific [place] Urine Protein Urine Glucose (UA) Urine Ketones Urine Blood Urine Nitrate Urine Bilirubin Urine Urobilinogen Ur Leukocyte Esterase Urine RBC Urine WBC Ur Epithelial Cells Amorphous Sediment Urine Bacteria Urine Other Ur Random Creatinine 142 Ur Random Sodium 37 01/02/18 01/02/18 01/02/18 14:00 16:01 22:15 WBC RBC Hgb Hct MCV MCH MCHC RDW Plt Count MPV Gran % Lymph % (Auto) [place] % (Auto) Eos % (Auto) Baso % (Auto) Gran # Lymph # (Auto) [place] # (Auto) Eos # (Auto) Baso # (Auto) pCO2 pO2 HCO3 ABG pH ABG Total CO2 ABG O2 Saturation ABG O2 Content ABG Base Excess ABG Hemoglobin ABG Carboxyhemoglobin POC ABG HHb (Measured) ABG Methemoglobin ABG O2 Capacity ABG Potassium Hgb O2 Saturation Sodium Chloride Glucose Lactate FiO2 PEEP Pressure Support Potassium Carbon Dioxide Anion Gap BUN Creatinine Est GFR ( Amer) Est GFR (Non-Af Amer) POC Glucose (mg/dL) 137 H 139 H Random Glucose Calcium Phosphorus Magnesium Total Bilirubin AST ALT Alkaline Phosphatase Troponin I Total Protein Albumin Globulin Albumin/Globulin Ratio Arterial Blood Potassium Urine Color Yellow Urine Appearance Clear Urine pH 6.0 Ur Specific [place] 1.025 Urine Protein Negative Urine Glucose (UA) Negative Urine Ketones Trace H Urine Blood Small H Urine Nitrate Negative Urine Bilirubin Negative Urine Urobilinogen 0.2 Ur Leukocyte Esterase Negative Urine RBC 10 - 15 Urine WBC 0 - 2 Ur Epithelial Cells 0 - 2 Amorphous Sediment Few Urine Bacteria Many Urine Other Uyeast Ur Random Creatinine Ur Random Sodium 01/03/18 01/03/18 07:10 07:10 WBC 13.1 H RBC 2.71 L Hgb 7.9 L Hct 24.0 L MCV 88.6 MCH 29.2 MCHC 32.9 RDW 15.2 H Plt Count 128 MPV 9.6 Gran % 88.9 H Lymph % (Auto) 6.0 L [place] % (Auto) 5.0 Eos % (Auto) 0.0 L Baso % (Auto) 0.1 Gran # 11.65 H Lymph # (Auto) 0.8 L [place] # (Auto) 0.7 H Eos # (Auto) 0.0 Baso # (Auto) 0.01 pCO2 pO2 HCO3 ABG pH ABG Total CO2 ABG O2 Saturation ABG O2 Content ABG Base Excess ABG Hemoglobin ABG Carboxyhemoglobin POC ABG HHb (Measured) ABG Methemoglobin ABG O2 Capacity ABG Potassium Hgb O2 Saturation Sodium 141 Chloride 112 H Glucose Lactate FiO2 PEEP Pressure Support Potassium 3.6 Carbon Dioxide 24 Anion Gap 9 L BUN 9 Creatinine 0.9 Est GFR ( Amer) > 60 Est GFR (Non-Af Amer) > 60 POC Glucose (mg/dL) Random Glucose 158 H Calcium 7.1 L Phosphorus 2.2 L Magnesium 2.0 Total Bilirubin 2.7 H AST 34 ALT 32 Alkaline Phosphatase 81 Troponin I Total Protein 5.1 L Albumin 2.5 L Globulin 2.6 Albumin/Globulin Ratio 0.9 L Arterial Blood Potassium Urine Color Urine Appearance Urine pH Ur Specific [place] Urine Protein Urine Glucose (UA) Urine Ketones Urine Blood Urine Nitrate Urine Bilirubin Urine Urobilinogen Ur Leukocyte Esterase Urine RBC Urine WBC Ur Epithelial Cells Amorphous Sediment Urine Bacteria Urine Other Ur Random Creatinine Ur Random Sodium Assessment & Plan - Assessment and Plan (Free Text) Assessment: Mr. Marques is a 77 M with hx of malignancy, recent cath 3 weeks ago, CAD with multiple stents who presents s/p colostomy reversal and respiratory failure with elevated troponin. Elevated troponin Tachycardia at 120 on monitor, denies CP and palpitations Elevated trop F/u results of Echo Last echo 06/20 showed mild valvular , moderate AR and mild MR with preserved LVEF 63% Plan for outpatient PCI in 6-8 weeks Anemia Hgb trending down to 7.9 this AM Repeat H/H s/p PRBC transfusion Continue to monitor Patient seen, case reviewed and plan agreed upon with Dr. Perez. Further recs per Dr. Perez. Mariano Gould, PGY-1 <Yaniv Perez - Last Filed: 01/03/18 20:15> Meds - Medications Medications: Current Medications Acetaminophen (Tylenol 325mg Tab) 650 mg PO Q6H PRN PRN Reason: Fever >100.4 F Albuterol/Ipratropium (Duoneb 3 Mg/0.5 Mg (3 Ml) Ud) 3 ml IH [id number] ALEX Last Admin: 01/03/18 19:56 Dose: 3 ml Heparin Sodium (Porcine) (Heparin) 5,000 units SC Q12H [facility]; Protocol Last Admin: 01/03/18 17:43 Dose: 5,000 units Hydromorphone HCl (Dilaudid) 0.5 mg IVP Q3 PRN PRN Reason: Pain, severe (8-10) Last Admin: 01/03/18 18:41 Dose: 0.5 mg Meropenem (Merrem Iv 1 Gm Premix) 1 gm in 50 mls @ 100 mls/hr IVPB Q8 [facility]; Protocol Stop: 01/10/18 22:01 Last Admin: 01/03/18 14:09 Dose: 100 mls/hr Sodium Chloride (Sodium Chloride 0.9%) 1,000 mls @ 50 mls/hr IV .Q20H [facility] Last Admin: 01/03/18 10:25 Dose: 50 mls/hr Insulin Human Regular (Humulin R Low) 0 units SC Q6H [facility]; Protocol Last Admin: 01/03/18 17:42 Dose: Not Given Metoprolol Tartrate (Lopressor) 25 mg PO DAILY [facility] Last Admin: 12/31/17 09:41 Dose: 25 mg Metoprolol Tartrate (Lopressor) 12.5 mg PO QPM [facility] Last Admin: 01/03/18 17:43 Dose: Not Given Montelukast Sodium (Singulair) 10 mg PO QPM [facility] Last Admin: 01/03/18 17:42 Dose: Not Given Non-Formulary Medication (Rapaflo) 8 mg PO QPM [facility] Last Admin: 01/03/18 17:42 Dose: Not Given Non-Formulary Medication (Ranexa) 500 mg PO BID [facility] Last Admin: 01/03/18 17:42 Dose: Not Given Ondansetron HCl (Zofran Inj) 4 mg IVP Q4H PRN PRN Reason: Nausea/Vomiting Oxybutynin Chloride (Ditropan Tab) 5 mg PO HS [facility] Last Admin: 12/31/17 22:36 Dose: 5 mg Pantoprazole Sodium (Protonix Inj) 40 mg IVP DAILY [facility] Last Admin: 01/03/18 10:20 Dose: 40 mg Results - Vital Signs Recent Vital Signs: Last Vital Signs Temp 98.1 F 01/03/18 16:00 Pulse 102 H 01/03/18 18:01 Resp 35 H 01/03/18 18:01 BP 131/64 01/03/18 18:01 Pulse Ox 97 01/03/18 18:01 - Labs Result Diagrams: 01/03/18 16:00 01/03/18 07:10 Labs: Laboratory Results - last 24 hr 01/01/18 01/02/18 01/03/18 07:45 22:15 07:10 WBC 13.1 H RBC 2.71 L Hgb 7.9 L Hct 24.0 L MCV 88.6 MCH 29.2 MCHC 32.9 RDW 15.2 H Plt Count 128 MPV 9.6 Gran % 88.9 H Lymph % (Auto) 6.0 L [place] % (Auto) 5.0 Eos % (Auto) 0.0 L Baso % (Auto) 0.1 Gran # 11.65 H Lymph # (Auto) 0.8 L [place] # (Auto) 0.7 H Eos # (Auto) 0.0 Baso # (Auto) 0.01 Sodium Potassium Chloride Carbon Dioxide Anion Gap BUN Creatinine Est GFR ( Amer) Est GFR (Non-Af Amer) POC Glucose (mg/dL) 139 H Random Glucose Calcium Phosphorus Magnesium Iron TIBC % Saturation Total Bilirubin Direct Bilirubin AST ALT Alkaline Phosphatase Troponin I Total Protein Albumin Globulin Albumin/Globulin Ratio Blood Type A NEGATIVE Antibody Screen Negative Crossmatch See Detail BBK History Checked Patient has bt 01/03/18 01/03/18 01/03/18 07:10 07:30 08:15 WBC RBC Hgb Hct MCV MCH MCHC RDW Plt Count MPV Gran % Lymph % (Auto) [place] % (Auto) Eos % (Auto) Baso % (Auto) Gran # Lymph # (Auto) [place] # (Auto) Eos # (Auto) Baso # (Auto) Sodium 141 Potassium 3.6 Chloride 112 H Carbon Dioxide 24 Anion Gap 9 L BUN 9 Creatinine 0.9 Est GFR ( Amer) > 60 Est GFR (Non-Af Amer) > 60 POC Glucose (mg/dL) 168 H Random Glucose 158 H Calcium 7.1 L Phosphorus 2.2 L Magnesium 2.0 Iron TIBC % Saturation Total Bilirubin 2.7 H Direct Bilirubin AST 34 ALT 32 Alkaline Phosphatase 81 Troponin I 0.63 H* D Total Protein 5.1 L Albumin 2.5 L Globulin 2.6 Albumin/Globulin Ratio 0.9 L Blood Type Antibody Screen Crossmatch BBK History Checked 01/03/18 01/03/18 01/03/18 11:03 16:00 16:00 WBC 12.6 H RBC 3.19 L Hgb 9.3 L Hct 28.0 L MCV 87.8 MCH 29.2 MCHC 33.2 RDW 15.0 H Plt Count 116 L MPV 9.6 Gran % 92.8 H Lymph % (Auto) 4.2 L [place] % (Auto) 2.9 Eos % (Auto) 0.0 L Baso % (Auto) 0.1 Gran # 11.71 H Lymph # (Auto) 0.5 L [place] # (Auto) 0.4 Eos # (Auto) 0.0 Baso # (Auto) 0.01 Sodium Potassium Chloride Carbon Dioxide Anion Gap BUN Creatinine Est GFR ( Amer) Est GFR (Non-Af Amer) POC Glucose (mg/dL) 197 H Random Glucose Calcium Phosphorus Magnesium Iron TIBC % Saturation Total Bilirubin Direct Bilirubin AST ALT Alkaline Phosphatase Troponin I Total Protein Albumin Globulin Albumin/Globulin Ratio Blood Type A NEGATIVE Antibody Screen Negative Crossmatch See Detail BBK History Checked Patient has bt 01/03/18 01/03/18 01/03/18 16:00 16:00 16:15 WBC RBC Hgb Hct MCV MCH MCHC RDW Plt Count MPV Gran % Lymph % (Auto) [place] % (Auto) Eos % (Auto) Baso % (Auto) Gran # Lymph # (Auto) [place] # (Auto) Eos # (Auto) Baso # (Auto) Sodium Potassium Chloride Carbon Dioxide Anion Gap BUN Creatinine Est GFR ( Amer) Est GFR (Non-Af Amer) POC Glucose (mg/dL) 177 H Random Glucose Calcium Phosphorus Magnesium Iron 18 L TIBC 301 % Saturation 6 L Total Bilirubin 3.2 H Direct Bilirubin 1.2 H AST ALT Alkaline Phosphatase Troponin I Total Protein Albumin Globulin Albumin/Globulin Ratio Blood Type Antibody Screen Crossmatch BBK History Checked Attending/Attestation - Attestation I have personally seen and examined this patient.: Yes I have fully participated in the care of the patient.: Yes I have reviewed all pertinent clinical information: Yes
[2018-01-03] MEDS ORDERED: Potassium Phosphate 3 mmol/ml Inj IV ONE (08:47)
[2018-01-03] MEDS ORDERED: DiphenhydrAMINE 50 mg/ml Inj IVP ONE (08:53)
--- NOTE | 2018-01-03 08:54 | CP.PCM.PN ---
Subjective - Date & Time of Evaluation Date of Evaluation: 01/03/18 Time of Evaluation: 08:50 - Subjective Subjective: Surgery: Dr. Pabon No acute events overnight. Tachycardia persists. Weaned to NC this am. No bowel function. Objective - Vital Signs/Intake and Output Vital Signs (last 24 hours): Temp Pulse Resp BP Pulse Ox 99 F 103 H 35 H 133/82 91 L 01/03/18 04:00 01/03/18 06:13 01/03/18 06:13 01/03/18 08:09 01/03/18 06:13 Intake and Output: 01/03/18 01/03/18 06:59 18:59 Intake Total 1000 Output Total 810 Balance 190 - Medications Medications: Current Medications Acetaminophen (Tylenol 325mg Tab) 650 mg PO Q6H PRN PRN Reason: Fever >100.4 F Albuterol/Ipratropium (Duoneb 3 Mg/0.5 Mg (3 Ml) Ud) 3 ml IH [id number] ALEX Last Admin: 01/03/18 07:05 Dose: 3 ml Heparin Sodium (Porcine) (Heparin) 5,000 units SC Q12H [facility]; Protocol Last Admin: 01/03/18 06:04 Dose: 5,000 units Hydromorphone HCl (Dilaudid) 0.5 mg IVP Q3 PRN PRN Reason: Pain, severe (8-10) Last Admin: 01/03/18 03:15 Dose: 0.5 mg Propofol (Diprivan) 1,000 mg in 100 mls @ 2.014 mls/hr IV .Q24H PRN; Protocol PRN Reason: TITRATE PER MD ORDER Last Titration: 01/02/18 09:30 Dose: 0 mcg/kg/min, 0 mls/hr Meropenem (Merrem Iv 1 Gm Premix) 1 gm in 50 mls @ 100 mls/hr IVPB Q8 [facility]; Protocol Stop: 01/10/18 22:01 Last Admin: 01/03/18 06:04 Dose: 100 mls/hr Vancomycin HCl (Vancomycin 1gm) 1 gm in 250 mls @ 167 mls/hr IVPB Q12 [facility]; Protocol Stop: 01/10/18 22:01 Last Admin: 01/02/18 10:07 Dose: 167 mls/hr Dexmedetomidine HCl (Precedex 400mcg/100ml) 400 mcg in 100 mls @ 3.361 mls/hr IV .Q24H PRN; Protocol PRN Reason: Agitation Last Titration: 01/02/18 14:30 Dose: 0 mcg/kg/hr, 0 mls/hr Potassium Chloride (Potassium Chloride 20 Meq/100 Ml) 20 meq in 100 mls @ 50 mls/hr IVPB ONCE ONE Stop: 01/03/18 09:49 Last Admin: 01/03/18 08:10 Dose: 50 mls/hr Sodium Chloride (Sodium Chloride 0.9%) 1,000 mls @ 50 mls/hr IV .Q20H [facility] Potassium Phosphate 15 mmole/ (Dextrose) 255 mls @ 42.5 mls/hr IVPB ONCE ONE Stop: 01/03/18 14:59 Insulin Human Regular (Humulin R Low) 0 units SC ACHS [facility]; Protocol Last Admin: 01/02/18 22:00 Dose: Not Given Metoprolol Tartrate (Lopressor) 25 mg PO DAILY [facility] Last Admin: 12/31/17 09:41 Dose: 25 mg Metoprolol Tartrate (Lopressor) 12.5 mg PO QPM [facility] Last Admin: 12/31/17 17:26 Dose: 12.5 mg Montelukast Sodium (Singulair) 10 mg PO QPM [facility] Last Admin: 12/31/17 17:26 Dose: 10 mg Nitroglycerin (Nitro-Bid 2% Oint) 0.5 ea TOP Q6 [facility] Last Admin: 01/03/18 06:05 Dose: 0.5 ea Non-Formulary Medication (Rapaflo) 8 mg PO QPM [facility] Last Admin: 12/31/17 17:27 Dose: 8 mg Non-Formulary Medication (Ranexa) 500 mg PO BID [facility] Last Admin: 12/31/17 17:28 Dose: 500 mg Ondansetron HCl (Zofran Inj) 4 mg IVP Q4H PRN PRN Reason: Nausea/Vomiting Oxybutynin Chloride (Ditropan Tab) 5 mg PO HS [facility] Last Admin: 12/31/17 22:36 Dose: 5 mg Pantoprazole Sodium (Protonix Inj) 40 mg IVP DAILY [facility] Potassium Phosphate (Potassium Phosphate) 15 mmole IV ONCE ONE Stop: 01/03/18 08:48 - Labs Labs: 01/03/18 07:10 01/03/18 07:10 PT 12.2 SECONDS (9.4-12.5) 01/01/18 06:30 INR 1.06 01/01/18 06:30 APTT 28.7 Seconds (25.1-36.5) 01/01/18 06:30 - Constitutional Appears: Non-toxic, No Acute Distress - Head Exam Head Exam: ATRAUMATIC, NORMOCEPHALIC - Eye Exam Eye Exam: EOMI, Normal appearance - ENT Exam ENT Exam: Mucous Membranes Moist - Respiratory Exam Respiratory Exam: NORMAL BREATHING PATTERN. absent: Respiratory Distress - Cardiovascular Exam Cardiovascular Exam: Tachycardia, REGULAR RHYTHM - GI/Abdominal Exam GI & Abdominal Exam: Distended, Soft. absent: Tenderness, Rebound Additional comments: incisions CDI, betadine passed over wounds. Jak w/ SA 60cc/24hr. - Neurological Exam Neurological Exam: Alert, Awake - Skin Skin Exam: Dry, Warm Assessment and Plan - Assessment and Plan (Free Text) Assessment: 77 y/o male s/p colostomy reversal POD2 Plan: -recommend 1 unit PRBC to maintain Hgb > 8 -abx per ID -OOB, PT eval -monitor for bowel function -monitor drain output -AE hose to LE instead of SCDs -labs in am -ok for ice chips -further recs per Dr. Cm Mcmullen PGY4
[2018-01-03] MEDS ORDERED: Potassium Phosphate 15 MMOLE in Dextrose 5% In Water 250 ML IVPB ONE (09:00)
--- NOTE | 2018-01-03 09:10 | RAD ---
Date of service: 01/03/2018 HISTORY: crackles COMPARISON: Portable chest 01/02/2018 FINDINGS: LUNGS: Patient is apparently been extubated with nasogastric tube also now removed. Right MediPort unchanged in position with surgical clips again seen the right hilum. Limited patchy density seen the right perihilar region with none on the left which may reflect limited atelectasis or minimal infiltrate. No similar findings left chest. PLEURA: No significant pleural effusion identified, no pneumothorax apparent. CARDIOVASCULAR: Stable cardiac silhouette. Borderline pulmonary vascular congestion. Calcific atherosclerotic changes are seen related to the thoracic aorta. OSSEOUS STRUCTURES: No significant abnormalities. VISUALIZED UPPER ABDOMEN: Normal. OTHER FINDINGS: None. IMPRESSION: Patient apparently now extubated with nasogastric tube removed also. Stable right MediPort. Limited patchy density right perihilar region may reflect limited airspace disease in the interval. Borderline pulmonary vascular congestion.
--- NOTE | 2018-01-03 09:18 | CP.PCM.PN ---
<Keyur Finney - Last Filed: 01/03/18 10:24> Subjective - Date & Time of Evaluation Date of Evaluation: 01/03/18 Time of Evaluation: 09:15 - Subjective Subjective: PGY-2 GI progress note for Dr Casiano Seen in ICU. Extubated yesterday, now using ventimask. Reports mild pressure- like abdominal pain. Still now flatus. Sitting in chair. Abdomen soft and non- tender with hypoactive BS to all quadrants, no nausea and vomiting. No issues per nursing note overnight. Incision to abdomen with dressing dry and intact, no active bleeding noted. KERI in place with sanguineous output. NGT discontinued yesterday evening. Objective - Vital Signs/Intake and Output Vital Signs (last 24 hours): Temp Pulse Resp BP Pulse Ox 99 F 103 H 35 H 133/82 91 L 01/03/18 04:00 01/03/18 06:13 01/03/18 06:13 01/03/18 08:09 01/03/18 06:13 Intake and Output: 01/03/18 01/03/18 06:59 18:59 Intake Total 1000 Output Total 810 Balance 190 - Medications Medications: Current Medications Acetaminophen (Tylenol 325mg Tab) 650 mg PO Q6H PRN PRN Reason: Fever >100.4 F Albuterol/Ipratropium (Duoneb 3 Mg/0.5 Mg (3 Ml) Ud) 3 ml IH [id number] ALEX Last Admin: 01/03/18 07:05 Dose: 3 ml Heparin Sodium (Porcine) (Heparin) 5,000 units SC Q12H ALEX; Protocol Last Admin: 01/03/18 06:04 Dose: 5,000 units Hydromorphone HCl (Dilaudid) 0.5 mg IVP Q3 PRN PRN Reason: Pain, severe (8-10) Last Admin: 01/03/18 03:15 Dose: 0.5 mg Propofol (Diprivan) 1,000 mg in 100 mls @ 2.014 mls/hr IV .Q24H PRN; Protocol PRN Reason: TITRATE PER MD ORDER Last Titration: 01/02/18 09:30 Dose: 0 mcg/kg/min, 0 mls/hr Meropenem (Merrem Iv 1 Gm Premix) 1 gm in 50 mls @ 100 mls/hr IVPB Q8 ALEX; Protocol Stop: 01/10/18 22:01 Last Admin: 01/03/18 06:04 Dose: 100 mls/hr Vancomycin HCl (Vancomycin 1gm) 1 gm in 250 mls @ 167 mls/hr IVPB Q12 ALEX; Protocol Stop: 01/10/18 22:01 Last Admin: 01/02/18 10:07 Dose: 167 mls/hr Dexmedetomidine HCl (Precedex 400mcg/100ml) 400 mcg in 100 mls @ 3.361 mls/hr IV .Q24H PRN; Protocol PRN Reason: Agitation Last Titration: 01/02/18 14:30 Dose: 0 mcg/kg/hr, 0 mls/hr Potassium Chloride (Potassium Chloride 20 Meq/100 Ml) 20 meq in 100 mls @ 50 mls/hr IVPB ONCE ONE Stop: 01/03/18 09:49 Last Admin: 01/03/18 08:10 Dose: 50 mls/hr Sodium Chloride (Sodium Chloride 0.9%) 1,000 mls @ 50 mls/hr IV .Q20H ALEX Potassium Phosphate 15 mmole/ (Dextrose) 255 mls @ 42.5 mls/hr IVPB ONCE ONE Stop: 01/03/18 14:59 Insulin Human Regular (Humulin R Low) 0 units SC ACHS ALEX; Protocol Last Admin: 01/02/18 22:00 Dose: Not Given Metoprolol Tartrate (Lopressor) 25 mg PO DAILY [facility] Last Admin: 12/31/17 09:41 Dose: 25 mg Metoprolol Tartrate (Lopressor) 12.5 mg PO QPM ALEX Last Admin: 12/31/17 17:26 Dose: 12.5 mg Montelukast Sodium (Singulair) 10 mg PO QPM ALEX Last Admin: 12/31/17 17:26 Dose: 10 mg Nitroglycerin (Nitro-Bid 2% Oint) 0.5 ea TOP Q6 ALEX Last Admin: 01/03/18 06:05 Dose: 0.5 ea Non-Formulary Medication (Rapaflo) 8 mg PO QPM [facility] Last Admin: 12/31/17 17:27 Dose: 8 mg Non-Formulary Medication (Ranexa) 500 mg PO BID [facility] Last Admin: 12/31/17 17:28 Dose: 500 mg Ondansetron HCl (Zofran Inj) 4 mg IVP Q4H PRN PRN Reason: Nausea/Vomiting Oxybutynin Chloride (Ditropan Tab) 5 mg PO HS [facility]LEX Last Admin: 12/31/17 22:36 Dose: 5 mg Pantoprazole Sodium (Protonix Inj) 40 mg IVP DAILY [facility] - Labs Labs: 01/03/18 07:10 01/03/18 07:10 PT 12.2 SECONDS (9.4-12.5) 01/01/18 06:30 INR 1.06 01/01/18 06:30 APTT 28.7 Seconds (25.1-36.5) 01/01/18 06:30 - Additional Findings Additional findings: - Constitutional Appears: Non-toxic, No Acute Distress - Head Exam Head Exam: ATRAUMATIC, NORMOCEPHALIC - Eye Exam Eye Exam: EOMI - ENT Exam ENT Exam: Mucous Membranes Moist - Neck Exam Neck Exam: Full ROM - Respiratory Exam Respiratory Exam: NORMAL BREATHING PATTERN. absent: Accessory Muscle Use, Decreased Breath Sounds, Rales, Rhonchi, Wheezes, Respiratory Distress On ventimask, Rhonchi - Cardiovascular Exam Cardiovascular Exam: REGULAR RHYTHM, RRR, +S1, +S2 - GI/Abdominal Exam GI & Abdominal Exam: Soft, Tenderness (Mild; Diffuse), Normal Bowel Sounds Additional comments: KERI in place with sanguineous output - Extremities Exam Extremities Exam: absent: Calf Tenderness - Neurological Exam Neurological Exam: Alert, Awake, Oriented x3 - Psychiatric Exam Psychiatric exam: Normal Affect, Normal Mood - Skin Skin Exam: Dry, Warm Assessment and Plan - Assessment and Plan (Free Text) Plan: 77 year old male with a past medical history significant for stage IV mantle cell lymphoma (quiescence), lung cancer s/p wedge resection, hypoglobulinemia, CAD s/p stent placement, DM2, HTN, COPD, and perforated sigmoid diverticulitis s/p Milli procedure who presented with abdominal pain: Abdominal Pain -s/p colonoscopy 12/31 * one 8mm polyp in cecum removed, diverticulosis in sigmoid colon and in descending colon, internal hemorrhoids, ileum normal, one 5mm polyp in rectum removed * await pathology results -s/p EGD 12/31 * normal examined duodenum, gastritis, esophagogastric landmarks identified -s/p exploratory laparotomy, reversal of colostomy, partial rectal stump resection with end to end anastomosis, extensive lysis of adhesions and mobilization of splenic flexure, partial omentectomy 01/01 * Of note: While in the PACU patient became less responsive, unarousable, went into respiratory arrest, [employer] called, patient intubated by anesthesia. -extubated 01/02 now on ventimask -monitor for bowel function Seen and discussed with Dr Casiano <Lakisha Casiano V - Last Filed: 01/03/18 23:56> Objective - Vital Signs/Intake and Output Vital Signs (last 24 hours): Temp Pulse Resp BP Pulse Ox 98.1 F 102 H 35 H 131/64 97 01/03/18 16:00 01/03/18 18:01 01/03/18 18:01 01/03/18 18:01 01/03/18 18:01 Intake and Output: 01/03/18 01/04/18 18:59 06:59 Intake Total 2370 Output Total 1790 Balance 580 - Medications Medications: Current Medications Acetaminophen (Tylenol 325mg Tab) 650 mg PO Q6H PRN PRN Reason: Fever >100.4 F Albuterol/Ipratropium (Duoneb 3 Mg/0.5 Mg (3 Ml) Ud) 3 ml IH [id number] ALEX Last Admin: 01/03/18 19:56 Dose: 3 ml Heparin Sodium (Porcine) (Heparin) 5,000 units SC Q12H [facility]; Protocol Last Admin: 01/03/18 17:43 Dose: 5,000 units Hydromorphone HCl (Dilaudid) 0.5 mg IVP Q3 PRN PRN Reason: Pain, severe (8-10) Last Admin: 01/03/18 18:41 Dose: 0.5 mg Meropenem (Merrem Iv 1 Gm Premix) 1 gm in 50 mls @ 100 mls/hr IVPB Q8 ALEX; Protocol Stop: 01/10/18 22:01 Last Admin: 01/03/18 21:24 Dose: 100 mls/hr Sodium Chloride (Sodium Chloride 0.9%) 1,000 mls @ 50 mls/hr IV .Q20H [facility] Last Admin: 01/03/18 10:25 Dose: 50 mls/hr Insulin Human Regular (Humulin R Low) 0 units SC Q6H [facility]; Protocol Last Admin: 01/03/18 21:16 Dose: Not Given Metoprolol Tartrate (Lopressor) 25 mg PO DAILY [facility] Last Admin: 12/31/17 09:41 Dose: 25 mg Metoprolol Tartrate (Lopressor) 12.5 mg PO QPM [facility] Last Admin: 01/03/18 17:43 Dose: Not Given Montelukast Sodium (Singulair) 10 mg PO QPM [facility] Last Admin: 01/03/18 17:42 Dose: Not Given Non-Formulary Medication (Rapaflo) 8 mg PO QPM [facility] Last Admin: 01/03/18 17:42 Dose: Not Given Non-Formulary Medication (Ranexa) 500 mg PO BID [facility] Last Admin: 01/03/18 17:42 Dose: Not Given Ondansetron HCl (Zofran Inj) 4 mg IVP Q4H PRN PRN Reason: Nausea/Vomiting Oxybutynin Chloride (Ditropan Tab) 5 mg PO HS [facility] Last Admin: 01/03/18 21:24 Dose: 5 mg Pantoprazole Sodium (Protonix Inj) 40 mg IVP DAILY [facility] Last Admin: 01/03/18 10:20 Dose: 40 mg - Labs Labs: 01/03/18 16:00 01/03/18 07:10 PT 12.2 SECONDS (9.4-12.5) 01/01/18 06:30 INR 1.06 01/01/18 06:30 APTT 28.7 Seconds (25.1-36.5) 01/01/18 06:30 Attending/Attestation - Attestation I have personally seen and examined this patient.: Yes I have fully participated in the care of the patient.: Yes I have reviewed all pertinent clinical information, including history, physical exam and plan: Yes
[2018-01-03] MEDS ORDERED: Potassium Phosphate 15 MMOLE in Sodium Chloride 0.9% 250 ML IV ONE (12:10)
--- NOTE | 2018-01-03 15:01 | PN ---
DATE: 01/03/2018 REASON FOR CONSULTATION AND FOLLOWUP: Elevated troponin, status post reversal of the colostomy extubated now, history of mantle cell lymphoma. SUBJECTIVE: The patient denies any chest pain, shortness of breath, any palpitation, being seen by surgical fellows and resident. Dressing was changed. According to them feels surgical point of view, the patient is stable. He is status post extubated and complaining of thirst. OBJECTIVE: GENERAL: Not in apparent distress, lying flat in the bed. VITAL SIGNS: Temperature afebrile, heart rate 106, and blood pressure 110/63. HEENT: PERRLA. Extraocular muscles intact. NECK: Supple. No carotid bruits or thyromegaly. CHEST: Scattered rales and rhonchi noted all over the chest. ABDOMEN: Surgical. EXTREMITIES: Clubbing and cyanosis negative. LABORATORY DATA: Blood workup as follows; WBC 13.1, hemoglobin 7.9, hematocrit 24, and platelet count 128. Chemistry shows sodium 141, potassium 3.3, chloride 112, carbon dioxide 24, anion gap of 9, BUN 9, creatinine 0.9. Troponin is 0.63. Total protein 5.1, albumin 2.5, albumin-globulin ratio 0.9. IMPRESSION: Status post reversal of the colostomy, history of coronary artery disease, history of multiple stents in the past, history of cath pre-procedure reversal of the colostomy, moderate disease. Plan is to do the percutaneous transluminal coronary angioplasty after the reversal of the colostomy for continuation of prison dual antiplatelet therapy and concern for interruption due surgery. Borderline troponin is positive probably secondary to some hemodynamic instability, but no ischemic changes noted. No complaint of the chest pain, mild congestion noted, history of mantle cell lymphoma. Last echocardiogram dated 06/19/2017 shows mild aortic stenosis and moderate aortic regurgitation, mild mitral regurgitation, mild pulmonary hypertension, normal left ventricular systolic pressure 55-60%, mild to moderate tricuspid regurgitation, history of diabetes, hypertension, hyperlipidemia, as mentioned mantle cell lymphoma, status post recent reversal of colostomy, colostomy was done earlier because of perforation hollow viscus. RECOMMENDATIONS: Give stat Lasix cut down to fluid 250 mL an hour, supplement potassium 20 mEq K-rider. We will repeat troponin in the morning, repeat EKG. Continue half an inch paste as ordered by Dr. Holbrook. Avoid fluid overload. Continue metoprolol if the blood pressure is tolerated. Yesterday, metoprolol was given to the patient in terms of blood pressure, it was on hold. Repeat the blood workup in the morning. Protein calorie malnutrition moderate, was not present from the admission. Thanh Hill MD
--- NOTE | 2018-01-03 15:34 | PN ---
DATE: 01/03/2018 SUBJECTIVE: The patient is seen earlier this morning. He is comfortable. He is extubated. PHYSICAL EXAMINATION: GENERAL: He is awake and alert, VITAL SIGNS: Temperature is 97, blood pressure is 117/70, respiratory rate of 18, heart rate of 96. HEENT: Unremarkable. NECK: Supple. LUNGS: Have decreased breath sounds. HEART: Normal S1, S2. ABDOMEN: Soft, nontender. LABORATORY EXAMINATION: Reveals the patient's white count is down to 13,000, hemoglobin of 7.9, platelets of 128. Chemistries reveal a BUN of 9, creatinine of 0.9. The patient did have an elevated troponin of 0.63. Urinalysis is noted and microbiology reveals urine culture negative. Blood cultures are negative. Nasal MRSA screen is negative and sputum culture is pending. The patient's procalcitonin is 0.14. The patient's chest x-ray from today, limited patchy density in the right perihilar region. ASSESSMENT AND PLAN: This is a 77-year-old male, known to me from multiple admissions in the past with mantle cell lymphoma, lung cancer, had chemotherapy, coronary artery disease, benign prostatic hypertrophy, bilateral healthcare-associated pneumonia, asthma, bronchitis, urinary tract infection, now the patient is status post surgery and reversal of colostomy, in respiratory failure, intubated on a ventilator with systemic inflammatory response syndrome, now extubated, comfortable, with no evidence of infection with systemic inflammatory response syndrome, and we will follow cultures. If remain negative, we will discontinue the antibiotics. We are waiting for the sputum culture. The procalcitonin is negative. The nasal MRSA is negative, and on day #3 of meropenem, we will discontinue the vancomycin since blood cultures are negative and nasal MRSA screen is negative. Marvin Callahan MD
--- NOTE | 2018-01-03 15:55 | PN ---
DATE: 01/03/2018 SUBJECTIVE: The patient is seen sitting in chair in the ICU. He was extubated yesterday. He is currently complaining of abdominal pain. He is also complaining of pain in his back. He denies any chest pain. He complains of being very thirsty. He reports that he burped 3 times. He denies any passage of flatus from below. He denies any nausea or vomiting. He received Lasix 40 mg IV push this morning. His IV fluids are lowered to 50 mL/hour. PHYSICAL EXAMINATION: GENERAL: Elderly male sitting in chair in moderate distress secondary to pain. VITAL SIGNS: Blood pressure 117/71, heart rate 90, respiratory rate 22, temperature 97.9, T-max is 100. HEENT: Normocephalic, atraumatic, positive pallor. NECK: Supple, no JVD. LUNGS: Bilateral equal entry, bilateral equal expansion, no rales appreciated. CARDIAC: S1, S2. Regular rate and rhythm. No murmur, no rub. ABDOMEN: Distended, soft, bowel sounds absent, positive dressing in the midline, positive dressing on the left quadrant. EXTREMITIES: Trace lower extremity edema. Intake and output 2500/430. LABORATORY DATA: WBC 13, hemoglobin 7.9, hematocrit 24, platelets 128, polys 89%, lymphs 6%. Sodium 141, potassium 3.6, chloride 112, CO2 of 24, BUN 9, creatinine 0.9, glucose 158, calcium 7.1, phosphorus 2.2, magnesium 2.0, albumin 2.5. Corrected calcium is 8.1. Troponin 0.63. Urinalysis: Yellow, clear, pH 6.0, specific gravity 1.025, protein negative, glucose negative, blood small, leukocyte esterase negative, rbc's 10-15, wbc's 0-2. Urine sodium 37, urine creatinine 142. Blood cultures, no growth. Urine culture, no growth. CURRENT MEDICATIONS: Dilaudid 0.5 IV push every 3 p.r.n., DuoNeb, heparin 5000 subcutaneous, Lopressor 12.5 on hold, Merrem 1 g every 8, potassium phosphate 15 millimoles given this morning, Precedex was discontinued, Protonix 40 IV, Ranexa 500 b.i.d. on hold, Rapaflo on hold, normal saline at 50 mL/hour, vancomycin 1 g given yesterday, Lasix 40 mg IV push given this morning, Solu-Cortef 50 mg IV push given this morning. ASSESSMENT AND PLAN: 1. Hypercapnic respiratory acidosis, respiratory failure requiring mechanical ventilation. Successfully extubated last night. 2. Mixed metabolic and respiratory acidosis. 3. Sepsis, lactic acidosis, leukocytosis, fever. 4. History of abdominal pain, status post laparotomy, reversal of colostomy, postop day #2. 5. Acute on chronic anemia, hemoglobin has dropped from 11 to 7.9. Suspect internal bleeding/intraabdominal bleeding ? 6. Hypophosphatemia. 7. Acute coronary syndrome, elevated troponins. 8. History of coronary artery disease, percutaneous transluminal coronary angioplasty and stent. 9. Stage IV mantle cell lymphoma. 10. History of lung cancer with wedge resection. 11. Hypokalemia. 12. Prerenal azotemia. 13. Hypocalcemia. PLAN: 1. Agree with lowering IV fluids. 2. Limit use of diuretics. 3. Check stool occults. 4. Check iron stores. 5. Surgical followup. 6. GI followup. 7. Continue antibiotics as per ID recommendations. 8. Continue to monitor closely in the ICU. 9. Avoid nephrotoxins. 10. Repeat potassium phosphate since the patient received Lasix and that is going to cause further potassium losses in urine. Calcium gluconate 1 g IV. 11. Case discussed with ICU residents at length, case discussed with ICU nursing staff, we will discuss with Dr. March. More than 35 minutes was spent in the care and coordination of this critically ill patient. Natalie Raman MD JUAN [facility]
--- NOTE | 2018-01-03 16:00 | CP.PCM.PN ---
Subjective - Date & Time of Evaluation Date of Evaluation: 01/03/18 Time of Evaluation: 15:32 - Subjective Subjective: Hematology/Oncology Progress Note (Dr. Myers's Service) Patient seen and assessed at bedside in ICU. Patient was extubated overnight and is now being maintained on VM. He reports that he only has intermittent abdominal pain with associated mild back pain. He denies any further complaints including fevers, chills, headache, chest pain, SOB, N/V/D/C, changes in urine output, or any new skin changes. Objective - Vital Signs/Intake and Output Vital Signs (last 24 hours): Temp Pulse Resp BP Pulse Ox 98.1 F 100 H 21 128/84 93 L 01/03/18 13:39 01/03/18 13:39 01/03/18 13:39 01/03/18 13:39 01/03/18 12:00 Intake and Output: 01/03/18 01/03/18 06:59 18:59 Intake Total 1285 Output Total 810 Balance 475 - Medications Medications: Current Medications Acetaminophen (Tylenol 325mg Tab) 650 mg PO Q6H PRN PRN Reason: Fever >100.4 F Albuterol/Ipratropium (Duoneb 3 Mg/0.5 Mg (3 Ml) Ud) 3 ml IH [id number] ALEX Last Admin: 01/03/18 13:04 Dose: 3 ml Heparin Sodium (Porcine) (Heparin) 5,000 units SC Q12H [facility]; Protocol Last Admin: 01/03/18 06:04 Dose: 5,000 units Hydromorphone HCl (Dilaudid) 0.5 mg IVP Q3 PRN PRN Reason: Pain, severe (8-10) Last Admin: 01/03/18 13:20 Dose: 0.5 mg Propofol (Diprivan) 1,000 mg in 100 mls @ 2.014 mls/hr IV .Q24H PRN; Protocol PRN Reason: TITRATE PER MD ORDER Last Titration: 01/02/18 09:30 Dose: 0 mcg/kg/min, 0 mls/hr Meropenem (Merrem Iv 1 Gm Premix) 1 gm in 50 mls @ 100 mls/hr IVPB Q8 [facility]; Protocol Stop: 01/10/18 22:01 Last Admin: 01/03/18 14:09 Dose: 100 mls/hr Dexmedetomidine HCl (Precedex 400mcg/100ml) 400 mcg in 100 mls @ 3.361 mls/hr IV .Q24H PRN; Protocol PRN Reason: Agitation Last Titration: 01/02/18 14:30 Dose: 0 mcg/kg/hr, 0 mls/hr Sodium Chloride (Sodium Chloride 0.9%) 1,000 mls @ 50 mls/hr IV .Q20H [facility] Last Admin: 01/03/18 10:25 Dose: 50 mls/hr Potassium Phosphate 15 mmole/ (Sodium Chloride) 255 mls @ 42.5 mls/hr IV ONCE ONE Stop: 01/03/18 18:09 Insulin Human Regular (Humulin R Low) 0 units SC [facility]; Protocol Last Admin: 01/03/18 11:30 Dose: Not Given Metoprolol Tartrate (Lopressor) 25 mg PO DAILY [facility] Last Admin: 12/31/17 09:41 Dose: 25 mg Metoprolol Tartrate (Lopressor) 12.5 mg PO QPM [facility] Last Admin: 12/31/17 17:26 Dose: 12.5 mg Montelukast Sodium (Singulair) 10 mg PO QPM [facility] Last Admin: 12/31/17 17:26 Dose: 10 mg Non-Formulary Medication (Rapaflo) 8 mg PO QPM [facility] Last Admin: 12/31/17 17:27 Dose: 8 mg Non-Formulary Medication (Ranexa) 500 mg PO BID [facility] Last Admin: 12/31/17 17:28 Dose: 500 mg Ondansetron HCl (Zofran Inj) 4 mg IVP Q4H PRN PRN Reason: Nausea/Vomiting Oxybutynin Chloride (Ditropan Tab) 5 mg PO HS [facility] Last Admin: 12/31/17 22:36 Dose: 5 mg Pantoprazole Sodium (Protonix Inj) 40 mg IVP DAILY [facility] Last Admin: 01/03/18 10:20 Dose: 40 mg - Labs Labs: 01/03/18 07:10 01/03/18 07:10 PT 12.2 SECONDS (9.4-12.5) 01/01/18 06:30 INR 1.06 01/01/18 06:30 APTT 28.7 Seconds (25.1-36.5) 01/01/18 06:30 - Constitutional Appears: Non-toxic, No Acute Distress - Head Exam Head Exam: ATRAUMATIC, NORMOCEPHALIC - Eye Exam Eye Exam: EOMI - ENT Exam ENT Exam: Mucous Membranes Moist - Neck Exam Neck Exam: Full ROM - Respiratory Exam Respiratory Exam: Rhonchi (Mild; b/l lower lobes), NORMAL BREATHING PATTERN. absent: Accessory Muscle Use, Chest Wall Tenderness, Decreased Breath Sounds, Clear to Ausculation Bilateral, Prolonged Expiratory Phase, Rales, Wheezes, Resp iratory Distress, Stridor - Cardiovascular Exam Cardiovascular Exam: Tachycardia, REGULAR RHYTHM, +S1, +S2 - GI/Abdominal Exam GI & Abdominal Exam: Soft, Tenderness, Normal Bowel Sounds. absent: Bruit, Distended, Firm, Guarding, Rigid, Diminished Bowel Sounds, Hernia, Hyperactive Bowel Sounds, Hypoactive Bowel Sounds, Mass, Organomegaly, Pulsatile Mass, Rebound Additional comments: Surgical incision site with thierno noted and without any signs of clinical infection of the surrounding soft tissue; KERI drain with serosanginous drainage noted - Extremities Exam Extremities Exam: absent: Calf Tenderness, Pedal Edema - Neurological Exam Neurological Exam: Alert, Awake, Oriented x3 - Psychiatric Exam Psychiatric exam: Normal Affect, Normal Mood - Skin Skin Exam: Dry, Warm Assessment and Plan - Assessment and Plan (Free Text) Assessment: 77 year old male with a past medical history significant for stage IV mantle cell lymphoma (quiescence), lung cancer s/p wedge resection, hypoglobulinemia, CAD s/p stent placement, DM2, HTN, COPD, and perforated sigmoid diverticulitis s/p Milli procedure who presented with abdominal pain. Patient noted to have respiratory failure after procedure for which he was intubated, sedated and transferred to the ICU for further monitoring. Patient was extubated overnight and is now being maintained on VM. Plan: 1. S/P Colostomy Reversal -POD #2 -EGD/CSPY report noted -NPO with ice chips -Continue Dilaudid PRN for pain control -Continue Zofran PRN for N/V -Decreased NS to 50mls/hr -Strict I/O's, OOB to chair and IS -GI and Surgery consulted, all recommendations appreciated 2. Normocytic Anemia -Hemoglobin dropped from 9.6 to 7.9 over the last 24 hours -Blood loss from surgery and noted IV fluid rehydration therapy noted -CT abdomen/pelvis without contrast to rule out intra-abdominal and/or re troperitoneal hemorrhage pending -Iron studies, hemolytic studies and FOBT pending -Transfuse two units of pRBC's with premedications as ordered -Continue to monitor with daily CBC's 3. Leukocytosis -Downtrending -Likely marginalization -UA and Chest X-ray Unremarkable for infection -Sputum, blood and urine cultures all without growth -Procalcitonin negative -Continue Merrem (Day #3) -Discontinue Vancomycin, as MRSA cultures negative -ID consulted, all recommendations appreciated 4. Elevated Troponins -Likely secondary to ischemic demand, per cardio -Will trend with daily CPK iso's -Plan for PTCA after stabilization -AM EKG -Cardiology and Nephrology consulted, all recommendations appreciated 5. History of CAD -Holding Metoprolol and APT in setting of NPO -Cardiology consulted, all recommendations appreciated 6. History of COPD -Continue Duonebs Q6 -Holding Singulair in setting of NPO 7. History of BPH -Hold Rapaflo and Oxybutynin in setting of NPO 8. History of DM2 -SSI-Low and Accuchecks Q6 GI Prophylaxis: Protonix DVT Prophylaxis: Heparin Diet: NPO with ice chips Code Status: Full code Patient seen and case discussed with attending, Dr. Myers. Mariusz Méndez PGY2
--- NOTE | 2018-01-03 16:12 | PN ---
DATE: 01/03/2018 REASON FOR CONSULTATION AND FOLLOWUP: Elevated troponin. This note is an addition to dictated this morning, discussed with resident taking care of the patient and this patient is being seen by Dr. Perez as well for Cardiology followup and I was approached by the resident of Dr. Perez. Dr. Perez is also seeing and patient of course belongs to Dr. Perez, but yesterday within an emergency so we will sign off and continue care from Cardiology point of view to Dr. Perez. Dr. Perez also being tested and also inform the resident to continue follow with Dr. Perez. We will sign off for now and glad to follow p.r.n. Thank you, Dr. Santoyo, for providing us the opportunity in taking care of the patient, Jakub Marques. Thanh Hill MD
[2018-01-03 16:20] LABS: BASO # 0.01 K/mm3 (0.0-2.0); BASO % 0.1 % (0.0-3.0); GRAN # 11.71 (1.4-6.5); GRAN % 92.8 % (50.0-68.0); HEMOGLOBIN 9.3 g/dL (14.0-18.0); LYMPH # 0.5 (1.2-3.4); LYMPH % 4.2 % (22.0-35.0); MEAN CELL VOLUME 87.8 fl (80.0-105.0); MEAN CORPUSCULAR HEMOGLOBIN 29.2 pg (25.0-35.0); MEAN CORPUSCULAR HGB CONC 33.2 g/dl (31.0-37.0); MEAN PLATELET VOLUME 9.6 fl (7.0-11.0); MONO # 0.4 (0.1-0.6); MONO % 2.9 % (1.0-6.0); RBC 3.19 10^6/uL (3.5-6.1); WHITE BLOOD COUNT 12.6 10^3/uL (4.5-11.0)
[2018-01-03 16:27] LABS: BILIRUBIN,DIRECT 1.2 mg/dL (0.0-0.4)
[2018-01-03 16:31] LABS: IRON 18 ug/dL (45-180)
[2018-01-03 16:40] LABS: % IRON SATURATION 6 % (20-55); TOTAL IRON BINDING CAPACITY 301 ug/dL (261-462)
[2018-01-03] MEDS: RANEXA 500 MG PO SCH (17:42)
[2018-01-03] MEDS: RAPAFLO 8 MG PO SCH (17:42)
--- NOTE | 2018-01-03 18:44 | CARD ---
APPROVED REPORT Date of service: 01/03/2018 EKG Measurement Heart [id number] <Conclusion> Normal sinus rhythm Nonspecific ST and T wave abnormality Abnormal ECG
[2018-01-04] MEDS: HYDROmorphone 0.5 mg/0.5 ml ISec IVP PRN ×5 (01:20→23:03)
[2018-01-04] MEDS: Sodium Chloride 0.9% 1,000 ML IV SCH (04:30)
[2018-01-04] MEDS: Insulin Reg-LOW-Coverage SC SCH ×4 (04:52→22:00)
[2018-01-04] MEDS: Meropenem IV 1 gm in NS 1 GM/50 ML BAG IVPB SCH (05:34)
[2018-01-04 06:22] LABS: BASO # 0.01 K/mm3 (0.0-2.0); BASO % 0.1 % (0.0-3.0); EOS % 0.2 % (1.5-5.0); GRAN # 8.69 (1.4-6.5); GRAN % 86.5 % (50.0-68.0); HEMOGLOBIN 9.4 g/dL (14.0-18.0); LYMPH # 0.8 (1.2-3.4); LYMPH % 8.4 % (22.0-35.0); MEAN CELL VOLUME 87.7 fl (80.0-105.0); MEAN CORPUSCULAR HGB CONC 33.1 g/dl (31.0-37.0); MEAN PLATELET VOLUME 9.1 fl (7.0-11.0); MONO # 0.5 (0.1-0.6); MONO % 4.8 % (1.0-6.0); RBC 3.24 10^6/uL (3.5-6.1); RED CELL DISTRIBUTION WIDTH 15.2 % (11.5-14.5)
[2018-01-04 06:36] LABS: INR 1.12; PARTIAL THROMBOPLASTIN TIME 29.3 Seconds (25.1-36.5); PROTHROMBIN TIME 12.9 SECONDS (9.4-12.5)
[2018-01-04 06:55] LABS: ALBUMIN 2.8 g/dL (3.0-4.8); ALT/SGPT 74 U/L (7-56); AST/SGOT 138 U/L (17-59); BLOOD UREA NITROGEN 9 mg/dL (7-21); CALCIUM 7.6 mg/dL (8.4-10.5); GFR NON-AFRICAN AMERICAN > 60
[2018-01-04] MEDS: Albuterol-Ipratrop 3 mg / 0.5 (3 ml) UD IH SCH ×3 (07:11→20:32)
[2018-01-04 07:46] LABS: CK MB% 4.7 % (2.5-3.0); CK-MB 18.2 ng/mL (0.0-3.6)
[2018-01-04 07:51] LABS: TROPONIN I 8.56 ng/mL
--- NOTE | 2018-01-04 08:36 | CP.PCM.PN ---
Subjective - Date & Time of Evaluation Date of Evaluation: 01/04/18 Time of Evaluation: 08:33 - Subjective Subjective: Surgery: Dr. Pabon Patient remains in ICU, no acute events overnight. Was OOB to chair yesterday. Reports passing minimal flatus, no bowel movement. Complains of mild nausea. Objective - Vital Signs/Intake and Output Vital Signs (last 24 hours): Temp Pulse Resp BP Pulse Ox 98.1 F 91 H 29 H 137/70 100 01/03/18 16:00 01/04/18 07:33 01/04/18 08:01 01/04/18 08:01 01/04/18 08:01 Intake and Output: 01/04/18 01/04/18 06:59 18:59 Intake Total 700 Output Total 940 Balance -240 - Medications Medications: Current Medications Acetaminophen (Tylenol 325mg Tab) 650 mg PO Q6H PRN PRN Reason: Fever >100.4 F Albuterol/Ipratropium (Duoneb 3 Mg/0.5 Mg (3 Ml) Ud) 3 ml IH [id number] [facility] Last Admin: 01/04/18 07:11 Dose: 3 ml Heparin Sodium (Porcine) (Heparin) 5,000 units SC Q12H [facility]; Protocol Last Admin: 01/04/18 05:57 Dose: 5,000 units Hydromorphone HCl (Dilaudid) 0.5 mg IVP Q3 PRN PRN Reason: Pain, severe (8-10) Last Admin: 01/04/18 05:53 Dose: 0.5 mg Meropenem (Merrem Iv 1 Gm Premix) 1 gm in 50 mls @ 100 mls/hr IVPB Q8 [facility]; Protocol Stop: 01/10/18 22:01 Last Admin: 01/04/18 05:34 Dose: 100 mls/hr Sodium Chloride (Sodium Chloride 0.9%) 1,000 mls @ 50 mls/hr IV .Q20H [facility] Last Admin: 01/04/18 04:30 Dose: 50 mls/hr Insulin Human Regular (Humulin R Low) 0 units SC Q6H [facility]; Protocol Last Admin: 01/04/18 04:52 Dose: Not Given Metoprolol Tartrate (Lopressor) 25 mg PO DAILY [facility] Last Admin: 12/31/17 09:41 Dose: 25 mg Metoprolol Tartrate (Lopressor) 12.5 mg PO QPM [facility] Last Admin: 01/03/18 17:43 Dose: Not Given Montelukast Sodium (Singulair) 10 mg PO QPM [facility] Last Admin: 01/03/18 17:42 Dose: Not Given Non-Formulary Medication (Rapaflo) 8 mg PO QPM [facility] Last Admin: 01/03/18 17:42 Dose: Not Given Non-Formulary Medication (Ranexa) 500 mg PO BID [facility] Last Admin: 01/03/18 17:42 Dose: Not Given Ondansetron HCl (Zofran Inj) 4 mg IVP Q4H PRN PRN Reason: Nausea/Vomiting Oxybutynin Chloride (Ditropan Tab) 5 mg PO HS [facility] Last Admin: 01/04/18 01:28 Dose: Not Given Pantoprazole Sodium (Protonix Inj) 40 mg IVP DAILY [facility] Last Admin: 01/03/18 10:20 Dose: 40 mg - Labs Labs: 01/04/18 05:40 01/04/18 05:40 PT 12.9 SECONDS (9.4-12.5) H 01/04/18 05:40 INR 1.12 01/04/18 05:40 APTT 29.3 Seconds (25.1-36.5) 01/04/18 05:40 - Constitutional Appears: No Acute Distress, Chronically Ill - Head Exam Head Exam: ATRAUMATIC, NORMOCEPHALIC - Eye Exam Eye Exam: EOMI, Normal appearance - ENT Exam ENT Exam: Mucous Membranes Moist - Respiratory Exam Respiratory Exam: absent: Respiratory Distress - Cardiovascular Exam Cardiovascular Exam: REGULAR RHYTHM. absent: Tachycardia - GI/Abdominal Exam GI & Abdominal Exam: Distended, Soft. absent: Guarding, Tenderness, Rebound Additional comments: incision CDI with staple closure, ostomy site packing slightly removed today, dressing changed. Jak drain with serous/sang fluid output. - Neurological Exam Neurological Exam: Alert, Awake - Skin Skin Exam: Dry, Warm Assessment and Plan - Assessment and Plan (Free Text) Assessment: 77 y/o male s/p colostomy reversal POD3 Plan: -maintain Hgb around 10 considering underlying cardiac disease, transfuse 1 unit PRBC today -no indication for CT abd/pelvis at this time -considering troponin level, ok to start anticoagulation w/o bolus -cont ice chips -low threshold for considering ileus, if patient vomits will replace NGT -monitor for bowel function -betadine to midline wound daily -AE hose -recommend pm labs -seen and examined with Dr. Cm Mcmullen PGY4
[2018-01-04] MEDS ORDERED: Potassium Phosphate 3 mmol/ml Inj IV ONE (08:50)
[2018-01-04] MEDS ORDERED: Potassium Phosphate 30 MMOLE in Sodium Chloride 0.9% 250 ML IVPB ONE (09:00)
--- NOTE | 2018-01-04 09:40 | PN ---
DATE: 01/03/2018 PULMONARY CRITICAL CARE PROGRESS NOTE REFERRING PHYSICIAN: Dr. Santoyo. SUBJECTIVE: He is out of bed to chair, extubated. Feels better. Mild cough, clear sputum production. Has abdominal discomfort. No nausea. No leg pain or leg swelling. OBJECTIVE: GENERAL: In no acute distress. VITAL SIGNS: Temp is 98, heart rate is 102, respiratory rate is 20 to 30, blood pressure 131/64, and pulse ox 97% on nasal cannula. HEENT: Small oral cavity. Crowded airway. NECK: Supple. No JVD. LUNGS: Crackles at the bases. Scattered rhonchi in both lung ramirez. HEART: S1 and S2. ABDOMEN: Soft. Mild tenderness. Has a dressing. No bowel sounds. EXTREMITIES: There is no edema. NEUROLOGIC: Neurologically awake and alert. Follows simple commands. MEDICATIONS: He is on Dilaudid 0.5 mg every 3 hours p.r.n., Ditropan 5 mg at bedtime, DuoNeb every 6 hours [id number], heparin 5000 units subcu every 12 hours, insulin coverage, metoprolol tartrate 12.5 mg daily, also metoprolol tartrate 25 mg in the morning, meropenem 1 g IV every 8 hours, Protonix 40 mg daily, Ranexa 500 mg twice a day, Rapaflo 8 mg daily, Singulair 10 mg daily, IV fluid normal saline 60 mL per hour, Tylenol p.r.n., and Zofran p.r.n. LABORATORY DATA: Shows hemoglobin 9.3, hematocrit 28, WBC 12.6, and platelet count is 116. Blood sugar 129. Iron is 18, ferritin is 46. Total sven 3.2, direct bili is 1.2. Vitamin D is 22. Troponin was 0.63. Sodium 141, potassium 3.6, chloride 112, bicarbonate 24, BUN 9, creatinine 0.9, calcium is 7.1, phosphorus 2.2, magnesium 2.2. AST 34, ALT 32, alk phos is 81, and albumin 2.5. Microbiology: Blood culture and urine culture, there is no growth. Had EKG done today, which shows normal sinus rhythm, nonspecific ST-T wave abnormalities. IMPRESSION AND PLAN: Status post laparotomy for reversal of colostomy, ended up with respiratory failure, presently liberated from the ventilator, history of lung cancer, requiring wedge resection, history of mantle cell carcinoma, coronary artery disease, history of coronary stent, hypertension, diabetes, chronic lung disease, history of diverticulitis, suspected sleep apnea syndrome. Pulmonary point of view, doing well. Out of bed to chair. Spoke to nursing staff. Also spoke to the patient's . Continue nebulizer treatment, pulmonary toilet, pain management, gastric prophylaxis, deep venous thrombosis prophylaxis. Follow up labs in the morning. Critical care time more than 35 minutes. Thanh Duffy MD
[2018-01-04] MEDS: RANEXA 500 MG PO SCH ×2 (10:00→17:42)
[2018-01-04] MEDS: Heparin25000 units/250ml 1/2NS 25,000 UNITS/250 ML BAG IV SCH (10:06)
--- NOTE | 2018-01-04 10:30 | CP.PCM.PN ---
<Keyur Finney - Last Filed: 01/04/18 14:19> Subjective - Date & Time of Evaluation Date of Evaluation: 01/04/18 Time of Evaluation: 10:23 - Subjective Subjective: PGY-2 GI progress note for Dr Casiano Had abdominal pain overnight - received dilaudid which resolved his pain. Passing minimal flatus but still no bowel movement. Sitting in chair. Abdomen soft and non-tender with hypoactive BS to all quadrants, no nausea and vomiting. Incision to abdomen with dressing dry and intact, no active bleeding noted. KERI in place with sanguineous output. Objective - Vital Signs/Intake and Output Vital Signs (last 24 hours): Temp Pulse Resp BP Pulse Ox 98.1 F 94 H 29 H 149/89 100 01/03/18 16:00 01/04/18 09:31 01/04/18 08:01 01/04/18 09:31 01/04/18 08:01 Intake and Output: 01/04/18 01/04/18 06:59 18:59 Intake Total 700 Output Total 940 Balance -240 - Medications Medications: Current Medications Acetaminophen (Tylenol 325mg Tab) 650 mg PO Q6H PRN PRN Reason: Fever >100.4 F Albuterol/Ipratropium (Duoneb 3 Mg/0.5 Mg (3 Ml) Ud) 3 ml IH [id number] [facility] Last Admin: 01/04/18 07:11 Dose: 3 ml Aspirin (Ecotrin) 81 mg PO DAILY [facility] Last Admin: 01/04/18 09:47 Dose: 81 mg Clopidogrel Bisulfate (Plavix) 75 mg PO DAILY [facility] Hydromorphone HCl (Dilaudid) 0.5 mg IVP Q3 PRN PRN Reason: Pain, severe (8-10) Last Admin: 01/04/18 09:48 Dose: 0.5 mg Meropenem (Merrem Iv 1 Gm Premix) 1 gm in 50 mls @ 100 mls/hr IVPB Q8 [facility]; Protocol Stop: 01/10/18 22:01 Last Admin: 01/04/18 05:34 Dose: 100 mls/hr Sodium Chloride (Sodium Chloride 0.9%) 1,000 mls @ 50 mls/hr IV .Q20H [facility] Last Admin: 01/04/18 04:30 Dose: 50 mls/hr Potassium Chloride (Potassium Chloride 20 Meq/100 Ml) 20 meq in 100 mls @ 50 mls/hr IVPB Q2H [facility] Stop: 01/04/18 12:59 Last Admin: 01/04/18 09:31 Dose: 50 mls/hr Potassium Phosphate 30 mmole/ (Sodium Chloride) 260 mls @ 42.5 mls/hr IVPB ONCE ONE Stop: 01/04/18 15:07 Last Admin: 01/04/18 09:40 Dose: 42.5 mls/hr Heparin Sodium/Sodium Chloride (Heparin 23008 Units/250ml 1/2 Normal Saline) 25,000 units in 250 mls @ 8.274 mls/hr IV .Q24H [facility]; Protocol Last Admin: 01/04/18 10:06 Dose: 12 units/kg/hr, 8.274 mls/hr Insulin Human Regular (Humulin R Low) 0 units SC Q6H [facility]; Protocol Last Admin: 01/04/18 04:52 Dose: Not Given Metoprolol Tartrate (Lopressor) 25 mg PO DAILY [facility] Last Admin: 01/04/18 09:31 Dose: 25 mg Metoprolol Tartrate (Lopressor) 12.5 mg PO QPM [facility] Last Admin: 01/03/18 17:43 Dose: Not Given Montelukast Sodium (Singulair) 10 mg PO QPM [facility] Last Admin: 01/03/18 17:42 Dose: Not Given Non-Formulary Medication (Rapaflo) 8 mg PO QPM [facility] Last Admin: 01/03/18 17:42 Dose: Not Given Non-Formulary Medication (Ranexa) 500 mg PO BID [facility] Last Admin: 01/03/18 17:42 Dose: Not Given Ondansetron HCl (Zofran Inj) 4 mg IVP Q4H PRN PRN Reason: Nausea/Vomiting Oxybutynin Chloride (Ditropan Tab) 5 mg PO HS [facility] Last Admin: 01/04/18 01:28 Dose: Not Given Pantoprazole Sodium (Protonix Inj) 40 mg IVP DAILY [facility] Last Admin: 01/04/18 09:32 Dose: 40 mg - Labs Labs: 01/04/18 05:40 01/04/18 05:40 PT 12.9 SECONDS (9.4-12.5) H 01/04/18 05:40 INR 1.12 11/02/18 05:40 APTT 29.3 Seconds (25.1-36.5) 01/04/18 05:40 - Additional Findings Additional findings: - Constitutional Appears: Non-toxic, No Acute Distress - Head Exam Head Exam: ATRAUMATIC, NORMOCEPHALIC - Eye Exam Eye Exam: EOMI - ENT Exam ENT Exam: Mucous Membranes Moist - Neck Exam Neck Exam: Full ROM - Respiratory Exam Respiratory Exam: NORMAL BREATHING PATTERN. absent: Accessory Muscle Use, Decreased Breath Sounds, Rales, Rhonchi, Wheezes, Respiratory Distress On ventimask, Rhonchi - Cardiovascular Exam Cardiovascular Exam: REGULAR RHYTHM, RRR, +S1, +S2 - GI/Abdominal Exam GI & Abdominal Exam: Soft, Tenderness (Mild; Diffuse), Normal Bowel Sounds Additional comments: KERI in place with sanguineous output - Extremities Exam Extremities Exam: absent: Calf Tenderness - Neurological Exam Neurological Exam: Alert, Awake, Oriented x3 - Psychiatric Exam Psychiatric exam: Normal Affect, Normal Mood - Skin Skin Exam: Dry, Warm Assessment and Plan - Assessment and Plan (Free Text) Plan: 77 year old male with a past medical history significant for stage IV mantle cell lymphoma (quiescence), lung cancer s/p wedge resection, hypoglobulinemia, CAD s/p stent placement, DM2, HTN, COPD, and perforated sigmoid diverticulitis s/p Milli procedure who presented with abdominal pain: Abdominal Pain -s/p colonoscopy 12/31 * one 8mm polyp in cecum removed, diverticulosis in sigmoid colon and in descending colon, internal hemorrhoids, ileum normal, one 5mm polyp in rectum removed * await pathology results -s/p EGD 12/31 * normal examined duodenum, gastritis, esophagogastric landmarks identified -s/p exploratory laparotomy, reversal of colostomy, partial rectal stump resection with end to end anastomosis, extensive lysis of adhesions and mobilization of splenic flexure, partial omentectomy 01/01 * Of note: While in the PACU patient became less responsive, unarousable, went into respiratory arrest, [employer] called, patient intubated by anesthesia - extubated 01/02 -monitor for bowel function -patient has been transfused 3u pRBCs for low Hgb and also with elevated troponins now on asa, plavix and heparin drip being managed by Dr Perez Seen and discussed with Dr Casiano <Oh,Kovil V - Last Filed: 01/04/18 22:02> Objective - Vital Signs/Intake and Output Vital Signs (last 24 hours): Temp Pulse Resp BP Pulse Ox 98.6 F 91 H 47 H 129/86 99 01/04/18 16:00 01/04/18 18:00 01/04/18 17:00 01/04/18 18:00 01/04/18 18:00 Intake and Output: 01/04/18 01/05/18 18:59 06:59 Intake Total 1915 Output Total 512 Balance 1403 - Medications Medications: Current Medications Acetaminophen (Tylenol 325mg Tab) 650 mg PO Q6H PRN PRN Reason: Fever >100.4 F Albuterol/Ipratropium (Duoneb 3 Mg/0.5 Mg (3 Ml) Ud) 3 ml IH [id number] [facility] Last Admin: 01/04/18 20:32 Dose: 3 ml Aspirin (Ecotrin) 81 mg PO DAILY [facility] Last Admin: 01/04/18 09:47 Dose: 81 mg Clopidogrel Bisulfate (Plavix) 75 mg PO DAILY [facility] Hydromorphone HCl (Dilaudid) 0.5 mg IVP Q3 PRN PRN Reason: Pain, severe (8-10) Last Admin: 01/04/18 15:21 Dose: 0.5 mg Sodium Chloride (Sodium Chloride 0.9%) 1,000 mls @ 50 mls/hr IV .Q20H [facility] Last Admin: 01/04/18 04:30 Dose: 50 mls/hr Heparin Sodium/Sodium Chloride (Heparin 91207 Units/250ml 1/2 Normal Saline) 25,000 units in 250 mls @ 8.274 mls/hr IV .Q24H [facility]; Protocol Last Titration: 01/04/18 17:50 Dose: 0 units/kg/hr, 0 mls/hr Insulin Human Regular (Humulin R Low) 0 units SC Q6H [facility]; Protocol Last Admin: 01/04/18 17:04 Dose: 1 units Metoprolol Tartrate (Lopressor) 25 mg PO DAILY [facility] Last Admin: 01/04/18 09:31 Dose: 25 mg Metoprolol Tartrate (Lopressor) 12.5 mg PO QPM [facility] Last Admin: 01/04/18 17:05 Dose: 12.5 mg Montelukast Sodium (Singulair) 10 mg PO QPM [facility] Last Admin: 01/04/18 17:04 Dose: 10 mg Non-Formulary Medication (Rapaflo) 8 mg PO QPM [facility] Last Admin: 01/04/18 17:42 Dose: Not Given Non-Formulary Medication (Ranexa) 500 mg PO BID [facility] Last Admin: 01/04/18 17:42 Dose: Not Given Ondansetron HCl (Zofran Inj) 4 mg IVP Q4H PRN PRN Reason: Nausea/Vomiting Oxybutynin Chloride (Ditropan Tab) 5 mg PO HS [facility] Last Admin: 01/04/18 01:28 Dose: Not Given Pantoprazole Sodium (Protonix Inj) 40 mg IVP DAILY [facility] Last Admin: 01/04/18 09:32 Dose: 40 mg - Labs Labs: 01/04/18 05:40 01/04/18 05:40 PT 12.9 SECONDS (9.4-12.5) H 01/04/18 05:40 INR 1.12 01/04/18 05:40 APTT 97.8 Seconds (25.1-36.5) H 01/04/18 17:20 Attending/Attestation - Attestation I have personally seen and examined this patient.: Yes I have fully participated in the care of the patient.: Yes I have reviewed all pertinent clinical information, including history, physical exam and plan: Yes Notes (Text): This is an addendum to GI followup report dictated by the Business Control Manager. The patient was seen and evaluated earlier. Medical records, lab studies, imagings were reviewed. Last 24 hours events reviewed. Agreed with the above treatment plan as outlined in Business Control Manager 's notes with the addition of the following Discussed with the ICU resident Patient did have a small bowel movement On examination abdomen soft tenderness over the suture line Status post reversal of colostomy Postop recovery was complicated by respiratory failure status post intubation and extubation Elevated troponin level probably non-ST segment DE drop in blood count status post transfusion hemoglobin stable. Status post recent EGD and colonoscopy. follow-up hemoglobin no obvious melena or bright red blood per rectum 01/04/18 21:52
--- NOTE | 2018-01-04 13:19 | CARD ---
APPROVED REPORT Date of service: 01/04/2018 EKG Measurement Heart [id number] <Conclusion> Normal sinus rhythm Nonspecific ST and T wave abnormality Prolonged QT Abnormal ECG
--- NOTE | 2018-01-04 15:47 | PN ---
DATE: 01/04/2018 SUBJECTIVE: The patient is in bed and seen early this morning 128, bed 6. He is awake and alert, had an uneventful night last night. He states he is feeling better. He had passed gas he states, but no bowel movement. PHYSICAL EXAMINATION: VITAL SIGNS: On exam, temperature is 98, blood pressure is 140/80, respiratory rate of 29 and heart rate of 94. HEENT: Unremarkable. NECK: Supple. LUNGS: Have decreased breath sounds. HEART: Normal S1 and S2. ABDOMEN: Soft and nontender. No rebound or guarding. LABORATORY EXAMINATION: Reveals a white count is down to 10,000, hemoglobin of 9 and platelets of 122. Chemistries reveals the patient's BUN of 9 and creatinine of 0.8. Troponin is elevated at 8.56 and 6.93 and procalcitonin is 0.14. Urinalysis is noted to be many bacteria, yeast and only 0 to 2 wbcs. The blood cultures are no growth. Urine cultures no growth. The MRSA is not detected on the nares and the sputum cultures pending. Review of orders reveals the patient is on meropenem. and the patient's chest x-ray from yesterday, limited patchy right perihilar region. ASSESSMENT AND PLAN: The patient is a 77-year-old male known to me from multiple admissions with a mantle cell lymphoma, lung cancer, chemotherapy, coronary artery disease, benign prostatic hyperplasia, bilateral healthcare-associated pneumonia, asthma, bronchitis, urinary tract infection now with status post surgery, reversal of colostomy who had respiratory failure intubated on a ventilator with systemic inflammatory response syndrome, now comfortable, extubated with no evidence of infection with negative blood culture, negative urine culture and negative methicillin-resistant Staphylococcus aureus screen and normal procalcitonin. Today is day #4 of meropenem. The patient also has a normal white count. We will discontinue meropenem, no antibiotics at this point. We will follow with you. The patient is at risk for developing nosocomial infections. Marvin Callahan MD
--- NOTE | 2018-01-04 17:30 | PN ---
DATE: 01/04/2018 SUBJECTIVE: The patient is seen in the ICU. He is lying in bed. He is comfortable. He reports that he passed gas. He also had a small bowel movement. He wants some fluid/apple juice. He reports that his abdomen is less painful today. He reports some acid reflux. He denies any fever. Denies any chest pain. He denies any shortness of breath. PHYSICAL EXAMINATION: GENERAL: Elderly male lying in bed in the ICU. VITAL SIGNS: Blood pressure 118/73, heart rate 85, respiratory rate 22, temperature 98.6. HEENT: Normocephalic, atraumatic, positive pallor, no icterus. NECK: Supple, no JVD. LUNGS: Bilateral equal air entry, bilateral equal expansion, no rales. CARDIAC: S1 and S2, regular rate and rhythm, no murmur, no rub. ABDOMEN: Distended, soft, bowel sounds present. EXTREMITIES: No lower extremity edema. INTAKE AND OUTPUT: 3070/2730. LABORATORY DATA: WBC 10, hemoglobin 9, hematocrit 28, platelets 122. Sodium 140, potassium 3.2, chloride 108, CO2 of 29, BUN 9, creatinine 0.8, glucose , calcium 7.6, phosphorus 1.6, AST 138, ALT 74, LDH 912, troponin 8.56. Blood cultures, no growth. Urine culture, no growth. Status post 2 units of blood transfusion yesterday. CURRENT MEDICATIONS: Dilaudid, Ditropan, DuoNeb, Ecotrin 81, heparin 12 units/kg/hour started this morning, insulin, Lopressor 12.5 not given yesterday, Lopressor 25 mg given this morning, Plavix 75, Protonix, normal saline at 50 mL/hour, Tylenol, Zofran. Potassium chloride 20 mEq x2 bags given. Potassium phosphate 30 millimoles given. ASSESSMENT: 1. Status post respiratory acidosis postoperatively, successfully extubated, maintaining O2 saturations. 2. Status post laparotomy, postoperative day #3, now with active bowel sounds, passing flatus. 3. Hypokalemia. 4. Hypophosphatemia. 5. Hypocalcemia. 6. Gar-BP-ahbbctaoh myocardial infarction, elevated troponin, elevated liver function tests. 7. Noninsulin-dependent diabetes mellitus. 8. History of hypertension. 9. History of coronary artery disease, percutaneous transluminal coronary angioplasty and stents x4. 10. Stage IV mantle cell lymphoma. 11. History of lung cancer, wedge resection. PLAN: 1. Continue heparin as per Cardiology recommendations. 2. Continue beta-harris. 3. Agree with replacement of potassium and phosphate. 4. Continue low-dose IV fluids since the patient is still n.p.o. 5. Monitor H and H closely. 6. Avoid nephrotoxins. 7. Replace calcium IV since corrected calcium is 2, borderline low. 8. Advance diet when cleared by Surgery. 9. Case discussed at length with Dr. Marques, case discussed with ICU residents, case discussed with ICU nursing staff. 10. More than 35 minutes spent in the care of this critically ill patient. Natalie Raman MD
[2018-01-04] MEDS: RAPAFLO 8 MG PO SCH (17:42)
--- NOTE | 2018-01-04 17:53 | CP.PCM.PN ---
Subjective - Date & Time of Evaluation Date of Evaluation: 01/04/18 Time of Evaluation: 17:53 - Subjective Subjective: Hematology/Oncology Progress Note (Dr. Myers's Service) Patient seen and assessed at bedside in ICU. No acute events were noted overni t. Patient is resting comfortably in chair on room air. He endorses continued intermittent back and abdominal pain that has not changed. He denies any further complaints including fevers, chills, headache, chest pain, SOB, N/V/D/C, changes in urine output, or any new skin changes. Objective - Vital Signs/Intake and Output Vital Signs (last 24 hours): Temp Pulse Resp BP Pulse Ox 98.6 F 87 22 126/84 99 01/04/18 16:00 01/04/18 17:05 01/04/18 16:00 01/04/18 17:05 01/04/18 16:00 Intake and Output: 01/04/18 01/04/18 06:59 18:59 Intake Total 700 1815 Output Total 940 512 Balance -240 1303 - Medications Medications: Current Medications Acetaminophen (Tylenol 325mg Tab) 650 mg PO Q6H PRN PRN Reason: Fever >100.4 F Albuterol/Ipratropium (Duoneb 3 Mg/0.5 Mg (3 Ml) Ud) 3 ml IH [id number] [facility] Last Admin: 01/04/18 13:50 Dose: 3 ml Aspirin (Ecotrin) 81 mg PO DAILY [facility] Last Admin: 01/04/18 09:47 Dose: 81 mg Clopidogrel Bisulfate (Plavix) 75 mg PO DAILY [facility] Hydromorphone HCl (Dilaudid) 0.5 mg IVP Q3 PRN PRN Reason: Pain, severe (8-10) Last Admin: 01/04/18 15:21 Dose: 0.5 mg Sodium Chloride (Sodium Chloride 0.9%) 1,000 mls @ 50 mls/hr IV .Q20H ALEX Last Admin: 01/04/18 04:30 Dose: 50 mls/hr Heparin Sodium/Sodium Chloride (Heparin 11511 Units/250ml 1/2 Normal Saline) 25,000 units in 250 mls @ 8.274 mls/hr IV .Q24H ALEX; Protocol Last Titration: 01/04/18 17:50 Dose: 0 units/kg/hr, 0 mls/hr Calcium Gluconate 1,000 mg/ (Sodium Chloride) 110 mls @ 110 mls/hr IVPB ONCE ONE Stop: 01/04/18 18:11 Insulin Human Regular (Humulin R Low) 0 units SC Q6H [facility]; Protocol Last Admin: 01/04/18 17:04 Dose: 1 units Metoprolol Tartrate (Lopressor) 25 mg PO DAILY [facility] Last Admin: 01/04/18 09:31 Dose: 25 mg Metoprolol Tartrate (Lopressor) 12.5 mg PO QPM [facility] Last Admin: 01/04/18 17:05 Dose: 12.5 mg Montelukast Sodium (Singulair) 10 mg PO QPM [facility] Last Admin: 01/04/18 17:04 Dose: 10 mg Non-Formulary Medication (Rapaflo) 8 mg PO QPM [facility] Last Admin: 01/04/18 17:42 Dose: Not Given Non-Formulary Medication (Ranexa) 500 mg PO BID [facility] Last Admin: 01/04/18 17:42 Dose: Not Given Ondansetron HCl (Zofran Inj) 4 mg IVP Q4H PRN PRN Reason: Nausea/Vomiting Oxybutynin Chloride (Ditropan Tab) 5 mg PO HS [facility] Last Admin: 01/04/18 01:28 Dose: Not Given Pantoprazole Sodium (Protonix Inj) 40 mg IVP DAILY [facility] Last Admin: 01/04/18 09:32 Dose: 40 mg - Labs Labs: 01/04/18 05:40 01/04/18 05:40 PT 12.9 SECONDS (9.4-12.5) H 01/04/18 05:40 INR 1.12 01/04/18 05:40 APTT 97.8 Seconds (25.1-36.5) H 01/04/18 17:20 - Additional Findings Additional findings: - Constitutional Appears: Non-toxic, No Acute Distress - Head Exam Head Exam: ATRAUMATIC, NORMOCEPHALIC - Eye Exam Eye Exam: EOMI - ENT Exam ENT Exam: Mucous Membranes Moist - Neck Exam Neck Exam: Full ROM - Respiratory Exam Respiratory Exam: Rhonchi (Mild; Interval improvement noted), NORMAL BREATHING PATTERN. absent: Accessory Muscle Use, Chest Wall Tenderness, Decreased Breath Sounds, Clear to Ausculation Bilateral, Prolonged Expiratory Phase, Rales, Wheezes, Respiratory Distress, Stridor - Cardiovascular Exam Cardiovascular Exam: RRR, REGULAR RHYTHM, +S1, +S2 - GI/Abdominal Exam GI & Abdominal Exam: Soft, Tenderness, Normal Bowel Sounds. absent: Bruit, Distended, Firm, Guarding, Rigid, Diminished Bowel Sounds, Hernia, Hyperactive Bowel Sounds, Hypoactive Bowel Sounds, Mass, Organomegaly, Pulsatile Mass, Rebound Additional comments: Surgical incision site with thierno noted and without any signs of clinical infection of the surrounding soft tissue; KERI drain with serosanginous drainage noted - Extremities Exam Extremities Exam: absent: Calf Tenderness, Pedal Edema - Neurological Exam Neurological Exam: Alert, Awake, Oriented x3 - Psychiatric Exam Psychiatric exam: Normal Affect, Normal Mood - Skin Skin Exam: Dry, Warm Assessment and Plan - Assessment and Plan (Free Text) Assessment: 77 year old male with a past medical history significant for stage IV mantle cell lymphoma (quiescence), lung cancer s/p wedge resection, hypoglobulinemia, CAD s/p stent placement, DM2, HTN, COPD, and perforated sigmoid diverticulitis s/p Milli procedure who presented with abdominal pain. Plan: 1. S/P Colostomy Reversal -POD #3 -EGD/CSPY report noted -Clear liquid diet -Continue Dilaudid PRN for pain control -Continue Zofran PRN for N/V -Continue NS to 50mls/hr -Strict I/O's, OOB to chair and IS -GI and Surgery consulted, all recommendations appreciated 2. Normocytic Anemia -H/H stable at 9.4/28.4 -CT abdomen/pelvis without contrast showing no intra-abdominal and/or retroperitoneal hemorrhage -S/P two units of pRBC's -Continue to monitor with daily CBC's 3. Leukocytosis -Resolved -Likely marginalization -UA and Chest X-ray Unremarkable for infection -Sputum, blood and urine cultures all without growth -Procalcitonin negative -Discontinue Merrem -ID consulted, all recommendations appreciated 4. Elevated Troponins -Likely secondary to type II AL, per cardio -Started on heparin gtt -Plan for PTCA on Sunday (01/07) if patient remains stable -Cardiology and Nephrology consulted, all recommendations appreciated 5. History of CAD -Continue ASA, Plavix and Lopressor -Cardiology consulted, all recommendations appreciated 6. History of COPD -Continue Duonebs Q6 -Continue Singulair 7. History of BPH -Continue Rapaflo and Oxybutynin in setting of NPO 8. History of DM2 -SSI-Low and Accuchecks Q6 GI Prophylaxis: Protonix DVT Prophylaxis: Heparin gtt Diet: Clear liquid diet Code Status: Full code Patient seen and case discussed with attending, Dr. Myers. Mariusz Méndez PGY2
--- NOTE | 2018-01-04 17:53 | CP.CCUPN ---
<Shereen Vogel - Last Filed: 01/04/18 17:54> CCU Subjective - Physician Review Subjective (Free Text): CRITICAL CARE PROGRESS NOTE FOR DR. ANGELA Vogel PGY-1 Pt seen and examined at bedside. He is resting comfortably on the chair. He had an elevation in troponin. He denies symptoms of chest pain, palpitations, shortness of breath. He passed gas and had 2 bowel movements. He tolerated clear liquid diet well. He denies 12 point ROS CCU Objective - Vital Signs / Intake & Output Vital Signs (Last 4 hours): Vital Signs Temp Pulse Resp BP Pulse Ox 01/04/18 17:05 87 126/84 01/04/18 16:00 98.6 F 81 21 118/73 99 01/04/18 15:16 89 35 H 117/75 72 L 01/04/18 15:00 82 100 01/04/18 14:00 82 Intake and Output (Last 8hrs): Intake & Output 01/04/18 01/04/18 01/04/18 06:59 14:59 22:59 Intake Total 700 1030 785 Output Total 770 472 40 Balance -70 558 745 Weight 68.946 kg Intake: IV 700 450 485 Heparin Drip 75 IVF 300 IVPB 450 antibiotics 100 right chest implanted 600 port Oral 580 300 Output: Drainage 170 170 40 Left Abdomen 170 Right Abdomen 170 40 Urine 600 300 Urine, Voided 600 300 Urine/Stool Mix 2 Other: # Voids Urine, Voided 4 # Bowel Movements 2 - Physical Exam Head: Positive for: Atraumatic, Normocephalic Pupils: Positive for: PERRL Extroacular Muscles: Positive for: EOMI Conjunctiva: Positive for: Normal Mouth: Positive for: Dry Neck: Positive for: Normal Range of Motion Respiratory/Chest: Positive for: Clear to Auscultation, Good Air Exchange. Negative for: Respiratory Distress, Accessory Muscle Use Cardiovascular: Positive for: Regular Rate and Rhythm, Normal S1, S2. Negative for: Murmurs Abdomen: Positive for: Tenderness (non-focal), Other (abdominal dressing place. KERI draining serosanguinous fluid) Back: Positive for: Normal Inspection Upper Extremity: Positive for: Normal Inspection. Negative for: Cyanosis, Edema Lower Extremity: Positive for: Normal Inspection. Negative for: Edema Neurological: Positive for: GCS=15, CN II-XII Intact, Speech Normal Skin: Positive for: Warm, Dry, Normal Color. Negative for: Rashes Psychiatric: Positive for: Alert, Oriented x 3, Normal Insight, Normal Concentration - Medications Active Medications: Active Medications Generic Name Dose Route Start Last Admin Trade Name Freq PRN Reason Stop Dose Admin Acetaminophen 650 mg 12/30/17 17:54 Tylenol 325mg Tab PO Q6H PRN Fever >100.4 F Albuterol/Ipratropium 3 ml 01/02/18 14:00 01/04/18 13:50 Duoneb 3 Mg/0.5 Mg (3 Ml) Ud IH 3 ml [id number] ALEX Administration Aspirin 81 mg 01/04/18 10:00 01/04/18 09:47 Ecotrin PO 81 mg DAILY ALEX Administration Clopidogrel Bisulfate 75 mg 01/05/18 10:00 Plavix PO DAILY ALEX Hydromorphone HCl 0.5 mg 01/02/18 17:13 01/04/18 15:21 Dilaudid IVP 0.5 mg Q3 PRN Administration Pain, severe (8-10) Sodium Chloride 1,000 mls @ 50 mls/hr 01/03/18 08:00 01/04/18 04:30 Sodium Chloride 0.9% IV 50 mls/hr .Q20H ALEX Administration Heparin Sodium/Sodium Chloride 25,000 units in 250 mls @ 8.274 mls/hr 01/04/18 09:30 01/04/18 17:50 Heparin 86067 Units/250ml 1/2 Normal Saline IV 0 units/kg/hr .Q24H ALEX 0 mls/hr Titration Protocol 12 UNITS/KG/HR Calcium Gluconate 1,000 mg/ 110 mls @ 110 mls/hr 01/04/18 17:12 Sodium Chloride IVPB 01/04/18 18:11 ONCE ONE Insulin Human Regular 0 units 01/03/18 16:15 01/04/18 17:04 Humulin R Low SC 1 units Q6H ALEX Administration Protocol Metoprolol Tartrate 25 mg 12/31/17 10:00 01/04/18 09:31 Lopressor PO 25 mg DAILY ALXE Administration Metoprolol Tartrate 12.5 mg 12/30/17 18:00 01/04/18 17:05 Lopressor PO 12.5 mg QPM ALEX Administration Montelukast Sodium 10 mg 12/30/17 18:00 01/04/18 17:04 Singulair PO 10 mg QPM ALEX Administration Non-Formulary Medication 8 mg 12/30/17 19:26 01/04/18 17:42 Rapaflo PO Not Given QPM ALEX Non-Formulary Medication 500 mg 12/30/17 19:28 01/04/18 17:42 Ranexa PO Not Given BID ALEX Ondansetron HCl 4 mg 01/01/18 13:58 Zofran Inj IVP Q4H PRN Nausea/Vomiting Oxybutynin Chloride 5 mg 12/30/17 22:00 01/04/18 01:28 Ditropan Tab PO Not Given HS [facility] Pantoprazole Sodium 40 mg 01/03/18 10:00 01/04/18 09:32 Protonix Inj IVP 40 mg DAILY ALEX Administration - Patient Studies Lab Studies: Microbiology Studies 01/02/18 12:00 Gram Stain - Final Sputum Sputum Culture - Final NORMAL ORAL KEAGAN 01/01/18 19:47 Blood Culture - Preliminary Blood NO GROWTH AFTER 48 HOURS 01/01/18 19:47 Blood Culture - Preliminary Blood NO GROWTH AFTER 48 HOURS Lab Studies 01/04/18 01/04/18 01/04/18 Range/Units 17:20 16:29 11:27 WBC (4.5-11.0) 10^3/uL RBC (3.5-6.1) 10^6/uL Hgb (14.0-18.0) g/dL Hct (42.0-52.0) % MCV (80.0-105.0) fl MCH (25.0-35.0) pg MCHC (31.0-37.0) g/dl RDW (11.5-14.5) % Plt Count (120.0-450.0) 10^3/uL MPV (7.0-11.0) fl Gran % (50.0-68.0) % Lymph % (Auto) (22.0-35.0) % Meigs % (Auto) (1.0-6.0) % Eos % (Auto) (1.5-5.0) % Baso % (Auto) (0.0-3.0) % Gran # (1.4-6.5) Lymph # (Auto) (1.2-3.4) Meigs # (Auto) (0.1-0.6) Eos # (Auto) (0.0-0.7) Baso # (Auto) (0.0-2.0) K/mm3 PT (9.4-12.5) SECONDS INR APTT 97.8 H (25.1-36.5) Seconds Sodium (132-148) mmol/L Potassium (3.6-5.0) mmol/L Chloride (98-107) mmol/L Carbon Dioxide (21-33) mmol/L Anion Gap (10-20) BUN (7-21) mg/dL Creatinine (0.8-1.5) mg/dl Est GFR ( Amer) Est GFR (Non-Af Amer) POC Glucose (mg/dL) 128 H (65-110) mg/dL Random Glucose (70-110) mg/dL Calcium (8.4-10.5) mg/dL Phosphorus (2.5-4.5) mg/dL Magnesium (1.7-2.2) mg/dL Ferritin ng/mL Total Bilirubin (0.2-1.3) mg/dL AST (17-59) U/L ALT (7-56) U/L Alkaline Phosphatase (38-126) U/L Lactate Dehydrogenase (333-699) U/L Total Creatine Kinase (35-230) U/L CK-MB (CK-2) (0.0-3.6) ng/mL CK-MB (CK-2) % (2.5-3.0) % Troponin I 4.69 H* D ng/mL Total Protein (5.8-8.3) g/dL Albumin (3.0-4.8) g/dL Globulin gm/dL Albumin/Globulin Ratio (1.1-1.8) 25-OH Vitamin D Total (30.0-100.0) NG/ML 01/04/18 01/04/18 01/04/18 Range/Units 10:25 07:49 05:40 WBC (4.5-11.0) 10^3/uL RBC (3.5-6.1) 10^6/uL Hgb (14.0-18.0) g/dL Hct (42.0-52.0) % MCV (80.0-105.0) fl MCH (25.0-35.0) pg MCHC (31.0-37.0) g/dl RDW (11.5-14.5) % Plt Count (120.0-450.0) 10^3/uL MPV (7.0-11.0) fl Gran % (50.0-68.0) % Lymph % (Auto) (22.0-35.0) % Meigs % (Auto) (1.0-6.0) % Eos % (Auto) (1.5-5.0) % Baso % (Auto) (0.0-3.0) % Gran # (1.4-6.5) Lymph # (Auto) (1.2-3.4) Meigs # (Auto) (0.1-0.6) Eos # (Auto) (0.0-0.7) Baso # (Auto) (0.0-2.0) K/mm3 PT (9.4-12.5) SECONDS INR APTT (25.1-36.5) Seconds Sodium 140 (132-148) mmol/L Potassium 3.2 L (3.6-5.0) mmol/L Chloride 108 H (98-107) mmol/L Carbon Dioxide 29 (21-33) mmol/L Anion Gap 6 L (10-20) BUN 9 (7-21) mg/dL Creatinine 0.8 (0.8-1.5) mg/dl Est GFR ( Amer) > 60 Est GFR (Non-Af Amer) > 60 POC Glucose (mg/dL) 128 H (65-110) mg/dL Random Glucose 137 H (70-110) mg/dL Calcium 7.6 L (8.4-10.5) mg/dL Phosphorus 1.7 L (2.5-4.5) mg/dL Magnesium 2.0 (1.7-2.2) mg/dL Ferritin ng/mL Total Bilirubin 3.7 H (0.2-1.3) mg/dL AST 138 H D (17-59) U/L ALT 74 H (7-56) U/L Alkaline Phosphatase 95 (38-126) U/L Lactate Dehydrogenase 912 H (333-699) U/L Total Creatine Kinase 385 H (35-230) U/L CK-MB (CK-2) 18.2 H (0.0-3.6) ng/mL CK-MB (CK-2) % 4.7 H (2.5-3.0) % Troponin I 6.93 H* 8.56 H* D ng/mL Total Protein 5.7 L (5.8-8.3) g/dL Albumin 2.8 L (3.0-4.8) g/dL Globulin 2.9 gm/dL Albumin/Globulin Ratio 1.0 L (1.1-1.8) 25-OH Vitamin D Total (30.0-100.0) NG/ML 01/04/18 01/04/18 01/04/18 Range/Units 05:40 05:40 05:39 WBC 10.0 D (4.5-11.0) 10^3/uL RBC 3.24 L (3.5-6.1) 10^6/uL Hgb 9.4 L (14.0-18.0) g/dL Hct 28.4 L (42.0-52.0) % MCV 87.7 (80.0-105.0) fl MCH 29.0 (25.0-35.0) pg MCHC 33.1 (31.0-37.0) g/dl RDW 15.2 H (11.5-14.5) % Plt Count 122 (120.0-450.0) 10^3/uL MPV 9.1 (7.0-11.0) fl Gran % 86.5 H (50.0-68.0) % Lymph % (Auto) 8.4 L (22.0-35.0) % Meigs % (Auto) 4.8 (1.0-6.0) % Eos % (Auto) 0.2 L (1.5-5.0) % Baso % (Auto) 0.1 (0.0-3.0) % Gran # 8.69 H (1.4-6.5) Lymph # (Auto) 0.8 L (1.2-3.4) Meigs # (Auto) 0.5 (0.1-0.6) Eos # (Auto) 0.0 (0.0-0.7) Baso # (Auto) 0.01 (0.0-2.0) K/mm3 PT 12.9 H (9.4-12.5) SECONDS INR 1.12 APTT 29.3 (25.1-36.5) Seconds Sodium (132-148) mmol/L Potassium (3.6-5.0) mmol/L Chloride (98-107) mmol/L Carbon Dioxide (21-33) mmol/L Anion Gap (10-20) BUN (7-21) mg/dL Creatinine (0.8-1.5) mg/dl Est GFR ( Amer) Est GFR (Non-Af Amer) POC Glucose (mg/dL) 132 H (65-110) mg/dL Random Glucose (70-110) mg/dL Calcium (8.4-10.5) mg/dL Phosphorus (2.5-4.5) mg/dL Magnesium (1.7-2.2) mg/dL Ferritin ng/mL Total Bilirubin (0.2-1.3) mg/dL AST (17-59) U/L ALT (7-56) U/L Alkaline Phosphatase (38-126) U/L Lactate Dehydrogenase (333-699) U/L Total Creatine Kinase (35-230) U/L CK-MB (CK-2) (0.0-3.6) ng/mL CK-MB (CK-2) % (2.5-3.0) % Troponin I ng/mL Total Protein (5.8-8.3) g/dL Albumin (3.0-4.8) g/dL Globulin gm/dL Albumin/Globulin Ratio (1.1-1.8) 25-OH Vitamin D Total (30.0-100.0) NG/ML 01/03/18 01/03/18 01/03/18 Range/Units 20:58 16:00 16:00 WBC (4.5-11.0) 10^3/uL RBC (3.5-6.1) 10^6/uL Hgb (14.0-18.0) g/dL Hct (42.0-52.0) % MCV (80.0-105.0) fl MCH (25.0-35.0) pg MCHC (31.0-37.0) g/dl RDW (11.5-14.5) % Plt Count (120.0-450.0) 10^3/uL MPV (7.0-11.0) fl Gran % (50.0-68.0) % Lymph % (Auto) (22.0-35.0) % Meigs % (Auto) (1.0-6.0) % Eos % (Auto) (1.5-5.0) % Baso % (Auto) (0.0-3.0) % Gran # (1.4-6.5) Lymph # (Auto) (1.2-3.4) Meigs # (Auto) (0.1-0.6) Eos # (Auto) (0.0-0.7) Baso # (Auto) (0.0-2.0) K/mm3 PT (9.4-12.5) SECONDS INR APTT (25.1-36.5) Seconds Sodium (132-148) mmol/L Potassium (3.6-5.0) mmol/L Chloride (98-107) mmol/L Carbon Dioxide (21-33) mmol/L Anion Gap (10-20) BUN (7-21) mg/dL Creatinine (0.8-1.5) mg/dl Est GFR ( Amer) Est GFR (Non-Af Amer) POC Glucose (mg/dL) 129 H (65-110) mg/dL Random Glucose (70-110) mg/dL Calcium (8.4-10.5) mg/dL Phosphorus (2.5-4.5) mg/dL Magnesium (1.7-2.2) mg/dL Ferritin 45.9 ng/mL Total Bilirubin (0.2-1.3) mg/dL AST (17-59) U/L ALT (7-56) U/L Alkaline Phosphatase (38-126) U/L Lactate Dehydrogenase (333-699) U/L Total Creatine Kinase (35-230) U/L CK-MB (CK-2) (0.0-3.6) ng/mL CK-MB (CK-2) % (2.5-3.0) % Troponin I ng/mL Total Protein (5.8-8.3) g/dL Albumin (3.0-4.8) g/dL Globulin gm/dL Albumin/Globulin Ratio (1.1-1.8) 25-OH Vitamin D Total 22.1 L (30.0-100.0) NG/ML Laboratory Results - last 24 hr 01/03/18 01/03/18 01/03/18 16:00 16:00 20:58 WBC RBC Hgb Hct MCV MCH MCHC RDW Plt Count MPV Gran % Lymph % (Auto) Meigs % (Auto) Eos % (Auto) Baso % (Auto) Gran # Lymph # (Auto) Meigs # (Auto) Eos # (Auto) Baso # (Auto) PT INR APTT Sodium Potassium Chloride Carbon Dioxide Anion Gap BUN Creatinine Est GFR ( Amer) Est GFR (Non-Af Amer) POC Glucose (mg/dL) 129 H Random Glucose Calcium Phosphorus Magnesium Ferritin 45.9 Total Bilirubin AST ALT Alkaline Phosphatase Lactate Dehydrogenase Total Creatine Kinase CK-MB (CK-2) CK-MB (CK-2) % Troponin I Total Protein Albumin Globulin Albumin/Globulin Ratio 25-OH Vitamin D Total 22.1 L 01/04/18 01/04/18 01/04/18 05:39 05:40 05:40 WBC 10.0 D RBC 3.24 L Hgb 9.4 L Hct 28.4 L MCV 87.7 MCH 29.0 MCHC 33.1 RDW 15.2 H Plt Count 122 MPV 9.1 Gran % 86.5 H Lymph % (Auto) 8.4 L Meigs % (Auto) 4.8 Eos % (Auto) 0.2 L Baso % (Auto) 0.1 Gran # 8.69 H Lymph # (Auto) 0.8 L Meigs # (Auto) 0.5 Eos # (Auto) 0.0 Baso # (Auto) 0.01 PT 12.9 H INR 1.12 APTT 29.3 Sodium Potassium Chloride Carbon Dioxide Anion Gap BUN Creatinine Est GFR ( Amer) Est GFR (Non-Af Amer) POC Glucose (mg/dL) 132 H Random Glucose Calcium Phosphorus Magnesium Ferritin Total Bilirubin AST ALT Alkaline Phosphatase Lactate Dehydrogenase Total Creatine Kinase CK-MB (CK-2) CK-MB (CK-2) % Troponin I Total Protein Albumin Globulin Albumin/Globulin Ratio 25-OH Vitamin D Total 01/04/18 01/04/18 01/04/18 05:40 07:49 10:25 WBC RBC Hgb Hct MCV MCH MCHC RDW Plt Count MPV Gran % Lymph % (Auto) Meigs % (Auto) Eos % (Auto) Baso % (Auto) Gran # Lymph # (Auto) Meigs # (Auto) Eos # (Auto) Baso # (Auto) PT INR APTT Sodium 140 Potassium 3.2 L Chloride 108 H Carbon Dioxide 29 Anion Gap 6 L BUN 9 Creatinine 0.8 Est GFR ( Amer) > 60 Est GFR (Non-Af Amer) > 60 POC Glucose (mg/dL) 128 H Random Glucose 137 H Calcium 7.6 L Phosphorus 1.7 L Magnesium 2.0 Ferritin Total Bilirubin 3.7 H AST 138 H D ALT 74 H Alkaline Phosphatase 95 Lactate Dehydrogenase 912 H Total Creatine Kinase 385 H CK-MB (CK-2) 18.2 H CK-MB (CK-2) % 4.7 H Troponin I 8.56 H* D 6.93 H* Total Protein 5.7 L Albumin 2.8 L Globulin 2.9 Albumin/Globulin Ratio 1.0 L 25-OH Vitamin D Total 01/04/18 01/04/18 01/04/18 11:27 16:29 17:20 WBC RBC Hgb Hct MCV MCH MCHC RDW Plt Count MPV Gran % Lymph % (Auto) Meigs % (Auto) Eos % (Auto) Baso % (Auto) Gran # Lymph # (Auto) Meigs # (Auto) Eos # (Auto) Baso # (Auto) PT INR APTT 97.8 H Sodium Potassium Chloride Carbon Dioxide Anion Gap BUN Creatinine Est GFR ( Amer) Est GFR (Non-Af Amer) POC Glucose (mg/dL) 128 H Random Glucose Calcium Phosphorus Magnesium Ferritin Total Bilirubin AST ALT Alkaline Phosphatase Lactate Dehydrogenase Total Creatine Kinase CK-MB (CK-2) CK-MB (CK-2) % Troponin I 4.69 H* D Total Protein Albumin Globulin Albumin/Globulin Ratio 25-OH Vitamin D Total EKG/Cardiology Studies: Cardiology / EKG Studies 01/04/18 08:38 EKG [ELECTROCARDIOGRAM] Stat Comment: Reason For Exam: Elevated troponin Fingerstick Blood Sugar Results: 153 Review of Systems - Review of Systems Review of Systems: per HPI Critical Care Progress Note - Nutrition Nutrition: Nutrition Category Date Time Status Liquid Diet [DIET] Diets 01/04/18 Lunch Ordered Assessment/Plan - Assessment and Plan (Free Text) Assessment: 77 y/o M with PMHx of perforated diverticulitis s/p nishant procedure, s/p colostomy reversal, stage 4 mantle cell lymphoma, lung ca s/p wedge resection, cad s/p stents x 4, dm, htn, copd admitted to ICU for post-operative respiratory failure s/p extubation. Rapid response was called in PACU as patient was unresponsive and not breathing. He was found to be in hypercapnic respiratory acidosis. He was subsequently sedated, intubated and placed on ventilator. He was subsequently extubated and monitored in ICU on minimal O2 supplementation. Plan: Neuro: Alert, awake & oriented x 3 No FND Extubated on 3L NC no FND Currently off of precedex Cardio: Normotensive Not on any vasopressors Elevated troponins Started on ACS protocol Echo stat. Revealed no wall motion abnormalities Aspirin Loading dose plavix 300mg Start heparin drip continue metoprolol 25 mg Pt to undergo cardiac cath in 2-3 days maintain map >65 tachycardic, likely secondary to pain/anxiety Pulmonary: Extubated 01/02 Encourage early mobilization Pulmonary toilet Chest PT Incentive spirometry OOB to chair physical therapy hob elevated to 35 degrees oral hygiene SaO2 sat >90% GI: s/o colostomy reversal abdominal dressing in place. KERI draining serosanguinous fluid No signs of acute abdomen, active bleeding tolerating clear liquid diet followed by surgery team, appreciate recs : Monitor I/Os closely replete electrolytes prn maintain euvolemia ID: lactate improved on most recent abg DVT/GI Ppx: Hep drip/protonix Case seen, examined and discussed with attending physician, Dr. Miller <Angela,Bilal - Last Filed: 01/04/18 18:15> CCU Objective - Vital Signs / Intake & Output Vital Signs (Last 4 hours): Vital Signs Temp Pulse Resp BP Pulse Ox 01/04/18 18:00 85 129/86 99 01/04/18 17:05 87 126/84 01/04/18 17:00 86 47 H 126/84 99 01/04/18 16:00 98.6 F 81 21 118/73 99 01/04/18 15:16 89 35 H 117/75 72 L 01/04/18 15:00 82 100 Intake and Output (Last 8hrs): Intake & Output 11/04/2201/04/18 01/04/18 06:59 14:59 22:59 Intake Total 700 1030 785 Output Total 770 472 40 Balance -70 558 745 Weight 68.946 kg Intake: IV 700 450 485 Heparin Drip 75 IVF 300 IVPB 450 antibiotics 100 right chest implanted 600 port Oral 580 300 Output: Drainage 170 170 40 Left Abdomen 170 Right Abdomen 170 40 Urine 600 300 Urine, Voided 600 300 Urine/Stool Mix 2 Other: # Voids Urine, Voided 4 # Bowel Movements 2 - Medications Active Medications: Active Medications Generic Name Dose Route Start Last Admin Trade Name Freq PRN Reason Stop Dose Admin Acetaminophen 650 mg 12/30/17 17:54 Tylenol 325mg Tab PO Q6H PRN Fever >100.4 F Albuterol/Ipratropium 3 ml 01/02/18 14:00 01/04/18 13:50 Duoneb 3 Mg/0.5 Mg (3 Ml) Ud IH 3 ml [id number] ALEX Administration Aspirin 81 mg 01/04/18 10:00 01/04/18 09:47 Ecotrin PO 81 mg DAILY ALEX Administration Clopidogrel Bisulfate 75 mg 01/05/18 10:00 Plavix PO DAILY AELX Hydromorphone HCl 0.5 mg 01/02/18 17:13 01/04/18 15:21 Dilaudid IVP 0.5 mg Q3 PRN Administration Pain, severe (8-10) Sodium Chloride 1,000 mls @ 50 mls/hr 01/03/18 08:00 01/04/18 04:30 Sodium Chloride 0.9% IV 50 mls/hr .Q20H ALEX Administration Heparin Sodium/Sodium Chloride 25,000 units in 250 mls @ 8.274 mls/hr 01/04/18 09:30 01/04/18 17:50 Heparin 44157 Units/250ml 1/2 Normal Saline IV 0 units/kg/hr .Q24H ALEX 0 mls/hr Titration Protocol 12 UNITS/KG/HR Insulin Human Regular 0 units 01/03/18 16:15 01/04/18 17:04 Humulin R Low SC 1 units Q6H ALEX Administration Protocol Metoprolol Tartrate 25 mg 12/31/17 10:00 01/04/18 09:31 Lopressor PO 25 mg DAILY ALEX Administration Metoprolol Tartrate 12.5 mg 12/30/17 18:00 01/04/18 17:05 Lopressor PO 12.5 mg QPM ALEX Administration Montelukast Sodium 10 mg 12/30/17 18:00 01/04/18 17:04 Singulair PO 10 mg QPM ALEX Administration Non-Formulary Medication 8 mg 12/30/17 19:26 01/04/18 17:42 Rapaflo PO Not Given QPM ALEX Non-Formulary Medication 500 mg 12/30/17 19:28 01/04/18 17:42 Ranexa PO Not Given BID ALEX Ondansetron HCl 4 mg 01/01/18 13:58 Zofran Inj IVP Q4H PRN Nausea/Vomiting Oxybutynin Chloride 5 mg 12/30/17 22:00 01/04/18 01:28 Ditropan Tab PO Not Given HS ALEX Pantoprazole Sodium 40 mg 01/03/18 10:00 01/04/18 09:32 Protonix Inj IVP 40 mg DAILY ALEX Administration - Patient Studies Lab Studies: Microbiology Studies 01/02/18 12:00 Gram Stain - Final Sputum Sputum Culture - Final NORMAL ORAL KEAGAN 01/01/18 19:47 Blood Culture - Preliminary Blood NO GROWTH AFTER 48 HOURS 01/01/18 19:47 Blood Culture - Preliminary Blood NO GROWTH AFTER 48 HOURS Lab Studies 01/04/18 01/04/18 01/04/18 Range/Units 17:20 16:29 11:27 WBC (4.5-11.0) 10^3/uL RBC (3.5-6.1) 10^6/uL Hgb (14.0-18.0) g/dL Hct (42.0-52.0) % MCV (80.0-105.0) fl MCH (25.0-35.0) pg MCHC (31.0-37.0) g/dl RDW (11.5-14.5) % Plt Count (120.0-450.0) 10^3/uL MPV (7.0-11.0) fl Gran % (50.0-68.0) % Lymph % (Auto) (22.0-35.0) % Meigs % (Auto) (1.0-6.0) % Eos % (Auto) (1.5-5.0) % Baso % (Auto) (0.0-3.0) % Gran # (1.4-6.5) Lymph # (Auto) (1.2-3.4) Meigs # (Auto) (0.1-0.6) Eos # (Auto) (0.0-0.7) Baso # (Auto) (0.0-2.0) K/mm3 PT (9.4-12.5) SECONDS INR APTT 97.8 H (25.1-36.5) Seconds Sodium (132-148) mmol/L Potassium (3.6-5.0) mmol/L Chloride (98-107) mmol/L Carbon Dioxide (21-33) mmol/L Anion Gap (10-20) BUN (7-21) mg/dL Creatinine (0.8-1.5) mg/dl Est GFR ( Amer) Est GFR (Non-Af Amer) POC Glucose (mg/dL) 128 H (65-110) mg/dL Random Glucose (70-110) mg/dL Calcium (8.4-10.5) mg/dL Phosphorus (2.5-4.5) mg/dL Magnesium (1.7-2.2) mg/dL Ferritin ng/mL Total Bilirubin (0.2-1.3) mg/dL AST (17-59) U/L ALT (7-56) U/L Alkaline Phosphatase (38-126) U/L Lactate Dehydrogenase (333-699) U/L Total Creatine Kinase (35-230) U/L CK-MB (CK-2) (0.0-3.6) ng/mL CK-MB (CK-2) % (2.5-3.0) % Troponin I 4.69 H* D ng/mL Total Protein (5.8-8.3) g/dL Albumin (3.0-4.8) g/dL Globulin gm/dL Albumin/Globulin Ratio (1.1-1.8) 25-OH Vitamin D Total (30.0-100.0) NG/ML 01/04/18 01/04/18 01/04/18 Range/Units 10:25 07:49 05:40 WBC (4.5-11.0) 10^3/uL RBC (3.5-6.1) 10^6/uL Hgb (14.0-18.0) g/dL Hct (42.0-52.0) % MCV (80.0-105.0) fl MCH (25.0-35.0) pg MCHC (31.0-37.0) g/dl RDW (11.5-14.5) % Plt Count (120.0-450.0) 10^3/uL MPV (7.0-11.0) fl Gran % (50.0-68.0) % Lymph % (Auto) (22.0-35.0) % Meigs % (Auto) (1.0-6.0) % Eos % (Auto) (1.5-5.0) % Baso % (Auto) (0.0-3.0) % Gran # (1.4-6.5) Lymph # (Auto) (1.2-3.4) Meigs # (Auto) (0.1-0.6) Eos # (Auto) (0.0-0.7) Baso # (Auto) (0.0-2.0) K/mm3 PT (9.4-12.5) SECONDS INR APTT (25.1-36.5) Seconds Sodium 140 (132-148) mmol/L Potassium 3.2 L (3.6-5.0) mmol/L Chloride 108 H (98-107) mmol/L Carbon Dioxide 29 (21-33) mmol/L Anion Gap 6 L (10-20) BUN 9 (7-21) mg/dL Creatinine 0.8 (0.8-1.5) mg/dl Est GFR ( Amer) > 60 Est GFR (Non-Af Amer) > 60 POC Glucose (mg/dL) 128 H (65-110) mg/dL Random Glucose 137 H (70-110) mg/dL Calcium 7.6 L (8.4-10.5) mg/dL Phosphorus 1.7 L (2.5-4.5) mg/dL Magnesium 2.0 (1.7-2.2) mg/dL Ferritin ng/mL Total Bilirubin 3.7 H (0.2-1.3) mg/dL AST 138 H D (17-59) U/L ALT 74 H (7-56) U/L Alkaline Phosphatase 95 (38-126) U/L Lactate Dehydrogenase 912 H (333-699) U/L Total Creatine Kinase 385 H (35-230) U/L CK-MB (CK-2) 18.2 H (0.0-3.6) ng/mL CK-MB (CK-2) % 4.7 H (2.5-3.0) % Troponin I 6.93 H* 8.56 H* D ng/mL Total Protein 5.7 L (5.8-8.3) g/dL Albumin 2.8 L (3.0-4.8) g/dL Globulin 2.9 gm/dL Albumin/Globulin Ratio 1.0 L (1.1-1.8) 25-OH Vitamin D Total (30.0-100.0) NG/ML 01/04/18 01/04/18 01/04/18 Range/Units 05:40 05:40 05:39 WBC 10.0 D (4.5-11.0) 10^3/uL RBC 3.24 L (3.5-6.1) 10^6/uL Hgb 9.4 L (14.0-18.0) g/dL Hct 28.4 L (42.0-52.0) % MCV 87.7 (80.0-105.0) fl MCH 29.0 (25.0-35.0) pg MCHC 33.1 (31.0-37.0) g/dl RDW 15.2 H (11.5-14.5) % Plt Count 122 (120.0-450.0) 10^3/uL MPV 9.1 (7.0-11.0) fl Gran % 86.5 H (50.0-68.0) % Lymph % (Auto) 8.4 L (22.0-35.0) % Meigs % (Auto) 4.8 (1.0-6.0) % Eos % (Auto) 0.2 L (1.5-5.0) % Baso % (Auto) 0.1 (0.0-3.0) % Gran # 8.69 H (1.4-6.5) Lymph # (Auto) 0.8 L (1.2-3.4) Meigs # (Auto) 0.5 (0.1-0.6) Eos # (Auto) 0.0 (0.0-0.7) Baso # (Auto) 0.01 (0.0-2.0) K/mm3 PT 12.9 H (9.4-12.5) SECONDS INR 1.12 APTT 29.3 (25.1-36.5) Seconds Sodium (132-148) mmol/L Potassium (3.6-5.0) mmol/L Chloride (98-107) mmol/L Carbon Dioxide (21-33) mmol/L Anion Gap (10-20) BUN (7-21) mg/dL Creatinine (0.8-1.5) mg/dl Est GFR ( Amer) Est GFR (Non-Af Amer) POC Glucose (mg/dL) 132 H (65-110) mg/dL Random Glucose (70-110) mg/dL Calcium (8.4-10.5) mg/dL Phosphorus (2.5-4.5) mg/dL Magnesium (1.7-2.2) mg/dL Ferritin ng/mL Total Bilirubin (0.2-1.3) mg/dL AST (17-59) U/L ALT (7-56) U/L Alkaline Phosphatase (38-126) U/L Lactate Dehydrogenase (333-699) U/L Total Creatine Kinase (35-230) U/L CK-MB (CK-2) (0.0-3.6) ng/mL CK-MB (CK-2) % (2.5-3.0) % Troponin I ng/mL Total Protein (5.8-8.3) g/dL Albumin (3.0-4.8) g/dL Globulin gm/dL Albumin/Globulin Ratio (1.1-1.8) 25-OH Vitamin D Total (30.0-100.0) NG/ML 01/03/18 01/03/18 01/03/18 Range/Units 20:58 16:00 16:00 WBC (4.5-11.0) 10^3/uL RBC (3.5-6.1) 10^6/uL Hgb (14.0-18.0) g/dL Hct (42.0-52.0) % MCV (80.0-105.0) fl MCH (25.0-35.0) pg MCHC (31.0-37.0) g/dl RDW (11.5-14.5) % Plt Count (120.0-450.0) 10^3/uL MPV (7.0-11.0) fl Gran % (50.0-68.0) % Lymph % (Auto) (22.0-35.0) % Meigs % (Auto) (1.0-6.0) % Eos % (Auto) (1.5-5.0) % Baso % (Auto) (0.0-3.0) % Gran # (1.4-6.5) Lymph # (Auto) (1.2-3.4) Meigs # (Auto) (0.1-0.6) Eos # (Auto) (0.0-0.7) Baso # (Auto) (0.0-2.0) K/mm3 PT (9.4-12.5) SECONDS INR APTT (25.1-36.5) Seconds Sodium (132-148) mmol/L Potassium (3.6-5.0) mmol/L Chloride (98-107) mmol/L Carbon Dioxide (21-33) mmol/L Anion Gap (10-20) BUN (7-21) mg/dL Creatinine (0.8-1.5) mg/dl Est GFR ( Amer) Est GFR (Non-Af Amer) POC Glucose (mg/dL) 129 H (65-110) mg/dL Random Glucose (70-110) mg/dL Calcium (8.4-10.5) mg/dL Phosphorus (2.5-4.5) mg/dL Magnesium (1.7-2.2) mg/dL Ferritin 45.9 ng/mL Total Bilirubin (0.2-1.3) mg/dL AST (17-59) U/L ALT (7-56) U/L Alkaline Phosphatase (38-126) U/L Lactate Dehydrogenase (333-699) U/L Total Creatine Kinase (35-230) U/L CK-MB (CK-2) (0.0-3.6) ng/mL CK-MB (CK-2) % (2.5-3.0) % Troponin I ng/mL Total Protein (5.8-8.3) g/dL Albumin (3.0-4.8) g/dL Globulin gm/dL Albumin/Globulin Ratio (1.1-1.8) 25-OH Vitamin D Total 22.1 L (30.0-100.0) NG/ML Laboratory Results - last 24 hr 01/03/18 01/03/18 01/03/18 16:00 16:00 20:58 WBC RBC Hgb Hct MCV MCH MCHC RDW Plt Count MPV Gran % Lymph % (Auto) Meigs % (Auto) Eos % (Auto) Baso % (Auto) Gran # Lymph # (Auto) Meigs # (Auto) Eos # (Auto) Baso # (Auto) PT INR APTT Sodium Potassium Chloride Carbon Dioxide Anion Gap BUN Creatinine Est GFR ( Amer) Est GFR (Non-Af Amer) POC Glucose (mg/dL) 129 H Random Glucose Calcium Phosphorus Magnesium Ferritin 45.9 Total Bilirubin AST ALT Alkaline Phosphatase Lactate Dehydrogenase Total Creatine Kinase CK-MB (CK-2) CK-MB (CK-2) % Troponin I Total Protein Albumin Globulin Albumin/Globulin Ratio 25-OH Vitamin D Total 22.1 L 01/04/18 01/04/18 01/04/18 05:39 05:40 05:40 WBC 10.0 D RBC 3.24 L Hgb 9.4 L Hct 28.4 L MCV 87.7 MCH 29.0 MCHC 33.1 RDW 15.2 H Plt Count 122 MPV 9.1 Gran % 86.5 H Lymph % (Auto) 8.4 L Meigs % (Auto) 4.8 Eos % (Auto) 0.2 L Baso % (Auto) 0.1 Gran # 8.69 H Lymph # (Auto) 0.8 L Meigs # (Auto) 0.5 Eos # (Auto) 0.0 Baso # (Auto) 0.01 PT 12.9 H INR 1.12 APTT 29.3 Sodium Potassium Chloride Carbon Dioxide Anion Gap BUN Creatinine Est GFR ( Amer) Est GFR (Non-Af Amer) POC Glucose (mg/dL) 132 H Random Glucose Calcium Phosphorus Magnesium Ferritin Total Bilirubin AST ALT Alkaline Phosphatase Lactate Dehydrogenase Total Creatine Kinase CK-MB (CK-2) CK-MB (CK-2) % Troponin I Total Protein Albumin Globulin Albumin/Globulin Ratio 25-OH Vitamin D Total 01/04/18 01/04/18 01/04/18 05:40 07:49 10:25 WBC RBC Hgb Hct MCV MCH MCHC RDW Plt Count MPV Gran % Lymph % (Auto) Meigs % (Auto) Eos % (Auto) Baso % (Auto) Gran # Lymph # (Auto) Meigs # (Auto) Eos # (Auto) Baso # (Auto) PT INR APTT Sodium 140 Potassium 3.2 L Chloride 108 H Carbon Dioxide 29 Anion Gap 6 L BUN 9 Creatinine 0.8 Est GFR ( Amer) > 60 Est GFR (Non-Af Amer) > 60 POC Glucose (mg/dL) 128 H Random Glucose 137 H Calcium 7.6 L Phosphorus 1.7 L Magnesium 2.0 Ferritin Total Bilirubin 3.7 H AST 138 H D ALT 74 H Alkaline Phosphatase 95 Lactate Dehydrogenase 912 H Total Creatine Kinase 385 H CK-MB (CK-2) 18.2 H CK-MB (CK-2) % 4.7 H Troponin I 8.56 H* D 6.93 H* Total Protein 5.7 L Albumin 2.8 L Globulin 2.9 Albumin/Globulin Ratio 1.0 L 25-OH Vitamin D Total 01/04/18 01/04/18 01/04/18 11:27 16:29 17:20 WBC RBC Hgb Hct MCV MCH MCHC RDW Plt Count MPV Gran % Lymph % (Auto) Meigs % (Auto) Eos % (Auto) Baso % (Auto) Gran # Lymph # (Auto) Meigs # (Auto) Eos # (Auto) Baso # (Auto) PT INR APTT 97.8 H Sodium Potassium Chloride Carbon Dioxide Anion Gap BUN Creatinine Est GFR ( Amer) Est GFR (Non-Af Amer) POC Glucose (mg/dL) 128 H Random Glucose Calcium Phosphorus Magnesium Ferritin Total Bilirubin AST ALT Alkaline Phosphatase Lactate Dehydrogenase Total Creatine Kinase CK-MB (CK-2) CK-MB (CK-2) % Troponin I 4.69 H* D Total Protein Albumin Globulin Albumin/Globulin Ratio 25-OH Vitamin D Total EKG/Cardiology Studies: Cardiology / EKG Studies 01/04/18 08:38 EKG [ELECTROCARDIOGRAM] Stat Comment: Reason For Exam: Elevated troponin Critical Care Progress Note - Nutrition Nutrition: Nutrition Category Date Time Status Liquid Diet [DIET] Diets 01/04/18 Lunch Ordered Addendum Addendum: 01/04/18 18:15 ICU Attending Addendum Patient seen and examined. Case reviewed on round with housestaff. Agree with resident note above with the following additions/exceptions: 77 M admitted to ICU after having resp failure post-op colostomy reversal which has now resolved. He has a hx of perforated diverticulitis s/p nishant procedure now s/p colostomy reversal. He also has CAD with hx of 4 stents in need to cath again and so surgery performed prior cath incase he needs dual antiplat if stent is placed. Other hx include stage 4 mantle cell lymphoma, lung ca s/p wedge resection, htn and copd. Etiology of resp failure post-op still unclear. No evidence of hypercapnea. I suspect he was still having the effect of the anesthetics in his system. He is extubated and on minimal supplemental oxygen via NC. HB now stable after 1 unit PRBC yesterday. Would keep HB above 8. Discussed with Dr Myers who prefers keeping between 9-10 which I agree with given his CAD and rising TNI. TNI elevated likely from known lesions as per recent cath. cardio on board, follow recs. Would like to resume ASA BB as soon as safe. Eventually will need cath by Dr Perez in 4-6 weeks. Surgery on board following DVT ppx on hepSq for now GI ppx with Protonix Rest of care as above Rizwan Miller MD Pulmonary, Critical Care and Sleep Medicine Critical Care TIme 31 mins
--- NOTE | 2018-01-04 21:50 | PN ---
DATE: 01/04/2018 REFERRING PHYSICIAN: Ted Santoyo MD SUBJECTIVE: He is out of bed to chair, using commode, feels better. Requested to drink milk. Had some cough with abdominal pain, clear sputum. No chest pain. No nausea. No leg pain or leg swelling. OBJECTIVE: GENERAL: In no acute distress. VITAL SIGNS: Temperature is 98, heart rate 85, respiratory rate is 22, blood pressure 129/86, pulse ox 99% on nasal cannula. HEENT: Moist mucous membranes. Small oral cavity. Crowded airway. NECK: Supple. No JVD. LUNGS: Scattered rhonchi, decreased breath sounds at the bases. HEART: S1 and S2. Has a surgical area with dressing. ABDOMEN: Soft. Does have bowel sounds. EXTREMITIES: There is no edema. NEUROLOGIC: Awake, alert, follows simple command. MEDICATIONS: He is on Dilaudid 0.5 mg every 3 hours p.r.n., oxybutynin 5 mg h.s., albuterol/Atrovent nebulizer every 6 hours, Ecotrin 81 mg daily, on IV heparin, metoprolol tartrate 25 mg daily, Plavix 75 mg daily Protonix 40 mg daily, Ranexa 500 mg twice a day, Rapaflo 8 mg daily, Singulair 10 mg daily, IV fluid normal saline 50 mL per hour, Tylenol p.r.n., Zofran p.r.n. LABORATORY DATA: Shows hemoglobin 9.4, hematocrit 28.4, WBC 10.0, platelet is 122. PTT is 98. Sodium 140, potassium 3.2, chloride 108, bicarbonate 29, BUN 6, creatinine 0.9, glucose 128, calcium 7.6, phosphorus 1.7, magnesium 2.0, AST 138, ALT 74, alk phos is 95. Troponin is 4.69. Albumin 2.8. Microbiology, blood culture, urine culture, sputum culture, there is no growth. DIAGNOSTIC DATA: Had EKG done today which showed normal sinus rhythm, nonspecific ST-T wave abnormalities. Had echocardiogram done, report is still pending. IMPRESSION AND PLAN: Status post laparotomy with reversal of colostomy; history of respiratory failure, presently liberated from the ventilator; history of lung cancer requiring wedge resection; history of mantle cell lymphoma in the remote past; coronary artery disease; history of coronary stent; hypertension; diabetes; chronic lung disease; history of diverticulitis; suspected sleep apnea syndrome; probably . Pulmonary point of view, doing well. Continue bronchodilator, incentive spirometer. Encourage cuff. Spoke to director medical writing. May start him on p.o. intake. Gastric prophylaxis, deep vein thrombosis prophylaxis. The patient is on heparin. Follow up labs in the morning. Thank you and we will follow with you Thanh Duffy MD
--- NOTE | 2018-01-04 23:55 | CP.PCM.PN ---
Subjective - Date & Time of Evaluation Date of Evaluation: 01/04/18 Time of Evaluation: 09:00 - Subjective Subjective: pt evaluated at bedside TnI peaked at 8 stat bedside echo done showed normal EF with no WMA pt c/o back pain no cp or sob mild end expiratory wheezes Objective - Vital Signs/Intake and Output Vital Signs (last 24 hours): Temp Pulse Resp BP Pulse Ox 98.6 F 91 H 47 H 129/86 99 01/04/18 16:00 01/04/18 18:00 01/04/18 17:00 01/04/18 18:00 01/04/18 18:00 Intake and Output: 01/04/18 01/05/18 18:59 06:59 Intake Total 1915 Output Total 512 Balance 1403 - Medications Medications: Current Medications Acetaminophen (Tylenol 325mg Tab) 650 mg PO Q6H PRN PRN Reason: Fever >100.4 F Albuterol/Ipratropium (Duoneb 3 Mg/0.5 Mg (3 Ml) Ud) 3 ml IH [id number] [facility] Last Admin: 01/04/18 20:32 Dose: 3 ml Aspirin (Ecotrin) 81 mg PO DAILY [facility] Last Admin: 01/04/18 09:47 Dose: 81 mg Clopidogrel Bisulfate (Plavix) 75 mg PO DAILY [facility] Hydromorphone HCl (Dilaudid) 0.5 mg IVP Q3 PRN PRN Reason: Pain, severe (8-10) Last Admin: 01/04/18 15:21 Dose: 0.5 mg Sodium Chloride (Sodium Chloride 0.9%) 1,000 mls @ 50 mls/hr IV .Q20H [facility] Last Admin: 01/04/18 04:30 Dose: 50 mls/hr Heparin Sodium/Sodium Chloride (Heparin 11551 Units/250ml 1/2 Normal Saline) 25,000 units in 250 mls @ 8.274 mls/hr IV .Q24H [facility]; Protocol Last Titration: 01/04/18 17:50 Dose: 0 units/kg/hr, 0 mls/hr Insulin Human Regular (Humulin R Low) 0 units SC Q6H [facility]; Protocol Last Admin: 01/04/18 17:04 Dose: 1 units Metoprolol Tartrate (Lopressor) 25 mg PO DAILY [facility] Last Admin: 11/02/18 09:31 Dose: 25 mg Metoprolol Tartrate (Lopressor) 12.5 mg PO QPM [facility] Last Admin: 01/04/18 17:05 Dose: 12.5 mg Montelukast Sodium (Singulair) 10 mg PO QPM [facility] Last Admin: 01/04/18 17:04 Dose: 10 mg Non-Formulary Medication (Rapaflo) 8 mg PO QPM [facility] Last Admin: 01/04/18 17:42 Dose: Not Given Non-Formulary Medication (Ranexa) 500 mg PO BID [facility] Last Admin: 01/04/18 17:42 Dose: Not Given Ondansetron HCl (Zofran Inj) 4 mg IVP Q4H PRN PRN Reason: Nausea/Vomiting Oxybutynin Chloride (Ditropan Tab) 5 mg PO HS [facility] Last Admin: 01/04/18 01:28 Dose: Not Given Pantoprazole Sodium (Protonix Inj) 40 mg IVP DAILY [facility] Last Admin: 01/04/18 09:32 Dose: 40 mg - Labs Labs: 01/04/18 05:40 01/04/18 05:40 PT 12.9 SECONDS (9.4-12.5) H 01/04/18 05:40 INR 1.12 01/04/18 05:40 APTT 97.8 Seconds (25.1-36.5) H 01/04/18 17:20 - Constitutional Appears: Well - Head Exam Head Exam: ATRAUMATIC, NORMAL INSPECTION, NORMOCEPHALIC - Eye Exam Eye Exam: EOMI, Normal appearance, PERRL Pupil Exam: NORMAL ACCOMODATION, PERRL - ENT Exam ENT Exam: Mucous Membranes Moist, Normal Exam - Neck Exam Neck Exam: Full ROM, Normal Inspection. absent: Lymphadenopathy - Respiratory Exam Respiratory Exam: Clear to Ausculation Bilateral, Prolonged Expiratory Phase Additional comments: end expriatory wheezes - Cardiovascular Exam Cardiovascular Exam: REGULAR RHYTHM, +S1, +S2, Murmur - GI/Abdominal Exam GI & Abdominal Exam: Soft, Normal Bowel Sounds. absent: Tenderness - Extremities Exam Extremities Exam: Full ROM, Normal Capillary Refill, Normal Inspection. 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
[2018-01-05] MEDS: Albuterol-Ipratrop 3 mg / 0.5 (3 ml) UD IH SCH ×2 (01:35→08:04)
[2018-01-05 06:31] LABS: HEMOGLOBIN 9.1 g/dL (14.0-18.0); RBC 3.09 10^6/uL (3.5-6.1); WHITE BLOOD COUNT 6.7 10^3/uL (4.5-11.0)
[2018-01-05 06:32] LABS: BASO % 0.6 % (0.0-3.0); GRAN # 4.98 (1.4-6.5); GRAN % 74.2 % (50.0-68.0); LYMPH # 1.1 (1.2-3.4); LYMPH % 16.2 % (22.0-35.0); MEAN CORPUSCULAR HEMOGLOBIN 29.4 pg (25.0-35.0); MEAN CORPUSCULAR HGB CONC 32.7 g/dl (31.0-37.0); MEAN PLATELET VOLUME 10.5 fl (7.0-11.0); RED CELL DISTRIBUTION WIDTH 15.2 % (11.5-14.5)
[2018-01-05 06:33] LABS: ALB/GLOB RATIO 0.9 (1.1-1.8); ALBUMIN 2.6 g/dL (3.0-4.8); ALT/SGPT 86 U/L (7-56); AST/SGOT 92 U/L (17-59); BASO # 0.04 K/mm3 (0.0-2.0); BLOOD UREA NITROGEN 11 mg/dL (7-21); CALCIUM 7.8 mg/dL (8.4-10.5); EOS # 0.2 (0.0-0.7); GFR NON-AFRICAN AMERICAN > 60; MONO # 0.4 (0.1-0.6)
[2018-01-05 06:36] LABS: INR 1.49; PROTHROMBIN TIME 17.3 SECONDS (9.4-12.5)
[2018-01-05 06:44] LABS: TROPONIN I 3.89 ng/mL
[2018-01-05 06:59] LABS: PARTIAL THROMBOPLASTIN TIME > 220.0 Seconds (25.1-36.5)
--- NOTE | 2018-01-05 07:43 | CP.PCM.PN ---
Subjective - Date & Time of Evaluation Date of Evaluation: 01/05/18 Time of Evaluation: 07:36 - Subjective Subjective: Surgery: Dr. Pabon Patient feeling better this am. Pain to the abdomen with coughing as expected. Reports bowel movement yesterday and feels the urge to have another bowel movement this am. He denies n/v, tolerating CLD. Has been OOB to chair. Per nursing no acute events overnight. Objective - Vital Signs/Intake and Output Vital Signs (last 24 hours): Temp Pulse Resp BP Pulse Ox 97.3 F L 87 25 H 137/69 94 L 01/05/18 04:00 01/05/18 07:31 01/05/18 07:00 01/05/18 07:00 01/05/18 07:00 - Medications Medications: Current Medications Acetaminophen (Tylenol 325mg Tab) 650 mg PO Q6H PRN PRN Reason: Fever >100.4 F Albuterol/Ipratropium (Duoneb 3 Mg/0.5 Mg (3 Ml) Ud) 3 ml IH [id number] [facility] Last Admin: 01/05/18 01:35 Dose: 3 ml Aspirin (Ecotrin) 81 mg PO DAILY [facility] Last Admin: 01/04/18 09:47 Dose: 81 mg Clopidogrel Bisulfate (Plavix) 75 mg PO DAILY [facility] Hydromorphone HCl (Dilaudid) 0.5 mg IVP Q3 PRN PRN Reason: Pain, severe (8-10) Last Admin: 01/04/18 23:03 Dose: 0.5 mg Sodium Chloride (Sodium Chloride 0.9%) 1,000 mls @ 50 mls/hr IV .Q20H [facility] Last Admin: 01/04/18 04:30 Dose: 50 mls/hr Heparin Sodium/Sodium Chloride (Heparin 20222 Units/250ml 1/2 Normal Saline) 25,000 units in 250 mls @ 8.274 mls/hr IV .Q24H [facility]; Protocol Last Titration: 01/04/18 18:50 Dose: 9 units/kg/hr, 6.205 mls/hr Insulin Human Regular (Humulin R Low) 0 units SC Q6H [facility]; Protocol Last Admin: 01/04/18 22:00 Dose: Not Given Metoprolol Tartrate (Lopressor) 25 mg PO DAILY [facility] Last Admin: 01/04/18 09:31 Dose: 25 mg Metoprolol Tartrate (Lopressor) 12.5 mg PO QPM [facility] Last Admin: 01/04/18 17:05 Dose: 12.5 mg Montelukast Sodium (Singulair) 10 mg PO QPM [facility] Last Admin: 01/04/18 17:04 Dose: 10 mg Non-Formulary Medication (Rapaflo) 8 mg PO QPM [facility] Last Admin: 01/04/18 17:42 Dose: Not Given Non-Formulary Medication (Ranexa) 500 mg PO BID [facility] Last Admin: 01/04/18 17:42 Dose: Not Given Ondansetron HCl (Zofran Inj) 4 mg IVP Q4H PRN PRN Reason: Nausea/Vomiting Oxybutynin Chloride (Ditropan Tab) 5 mg PO HS [facility] Last Admin: 01/04/18 23:04 Dose: 5 mg Pantoprazole Sodium (Protonix Inj) 40 mg IVP DAILY [facility] Last Admin: 01/04/18 09:32 Dose: 40 mg - Labs Labs: 01/05/18 06:00 01/05/18 06:00 PT 17.3 SECONDS (9.4-12.5) H 01/05/18 06:00 INR 1.49 01/05/18 06:00 APTT > 220.0 Seconds (25.1-36.5) H* 01/05/18 06:00 - Constitutional Appears: Non-toxic, No Acute Distress, Chronically Ill - Head Exam Head Exam: ATRAUMATIC, NORMOCEPHALIC - Eye Exam Eye Exam: EOMI, Normal appearance - ENT Exam ENT Exam: Mucous Membranes Moist - Respiratory Exam Respiratory Exam: NORMAL BREATHING PATTERN. absent: Respiratory Distress - Cardiovascular Exam Cardiovascular Exam: REGULAR RHYTHM. absent: Tachycardia - GI/Abdominal Exam GI & Abdominal Exam: Distended, Soft. absent: Guarding, Rigid, Tenderness, Rebound Additional comments: incisions CDI w/ staple closure, betadine applied to wound edges. Partial packing removed from old ostomy site. CD dressing placed over old ostomy site. Jak drain w/ SA fluid output. Assessment and Plan - Assessment and Plan (Free Text) Assessment: 77 y/o male s/p colostomy reversal POD4 Plan: -maintain Hgb around 10 considering underlying cardiac disease -CT with expected post operative changes -cont CLD, do not advance at this time. May consider advancing this afternoon. -betadine to midline wound daily -AE hose -f/u am labs -needs to spend majority of time OOB, needs to be ambulating -cont IS use -d/w Dr. Cm Mcmullen PGY4
[2018-01-05] MEDS: Insulin Reg-LOW-Coverage SC SCH ×3 (09:20→22:20)
[2018-01-05] MEDS: HYDROmorphone 0.5 mg/0.5 ml ISec IVP PRN ×2 (09:25→18:22)
[2018-01-05] MEDS: RANEXA 500 MG PO SCH ×2 (09:26→17:14)
[2018-01-05] MEDS ORDERED: Potassium Chloride 20 mEq ER Tab PO ONE ×2 (09:30→09:52)
--- NOTE | 2018-01-05 09:38 | CP.PCM.PN ---
<Ignacio Siddiqui - Last Filed: 01/05/18 09:35> Subjective - Date & Time of Evaluation Date of Evaluation: 01/05/18 Time of Evaluation: 09:35 - Subjective Subjective: Patient is doing well. Tolerating diet, moving bowels. He has some expected post-op pain. Objective - Vital Signs/Intake and Output Vital Signs (last 24 hours): Temp Pulse Resp BP Pulse Ox 98.4 F 100 H 25 H 135/75 94 L 01/05/18 08:00 01/05/18 09:25 01/05/18 07:00 01/05/18 09:25 01/05/18 07:00 - Medications Medications: Current Medications Acetaminophen (Tylenol 325mg Tab) 650 mg PO Q6H PRN PRN Reason: Fever >100.4 F Albuterol/Ipratropium (Duoneb 3 Mg/0.5 Mg (3 Ml) Ud) 3 ml IH [id number] [facility] Last Admin: 01/05/18 08:04 Dose: 3 ml Aspirin (Ecotrin) 81 mg PO DAILY [facility] Last Admin: 01/05/18 09:24 Dose: 81 mg Clopidogrel Bisulfate (Plavix) 75 mg PO DAILY [facility] Last Admin: 01/05/18 09:25 Dose: 75 mg Hydromorphone HCl (Dilaudid) 0.5 mg IVP Q3 PRN PRN Reason: Pain, severe (8-10) Last Admin: 01/05/18 09:25 Dose: 0.5 mg Sodium Chloride (Sodium Chloride 0.9%) 1,000 mls @ 50 mls/hr IV .Q20H [facility] Last Admin: 01/04/18 04:30 Dose: 50 mls/hr Heparin Sodium/Sodium Chloride (Heparin 94307 Units/250ml 1/2 Normal Saline) 25,000 units in 250 mls @ 8.274 mls/hr IV .Q24H [facility]; Protocol Last Titration: 01/04/18 18:50 Dose: 9 units/kg/hr, 6.205 mls/hr Insulin Human Regular (Humulin R Low) 0 units SC Q6H [facility]; Protocol Last Admin: 01/05/18 09:20 Dose: Not Given Metoprolol Tartrate (Lopressor) 25 mg PO DAILY [facility] Last Admin: 01/05/18 09:25 Dose: 25 mg Metoprolol Tartrate (Lopressor) 12.5 mg PO QPM [facility] Last Admin: 01/04/18 17:05 Dose: 12.5 mg Montelukast Sodium (Singulair) 10 mg PO QPM [facility] Last Admin: 01/04/18 17:04 Dose: 10 mg Non-Formulary Medication (Rapaflo) 8 mg PO QPM [facility] Last Admin: 01/04/18 17:42 Dose: Not Given Non-Formulary Medication (Ranexa) 500 mg PO BID [facility] Last Admin: 01/05/18 09:26 Dose: Not Given Ondansetron HCl (Zofran Inj) 4 mg IVP Q4H PRN PRN Reason: Nausea/Vomiting Oxybutynin Chloride (Ditropan Tab) 5 mg PO HS [facility] Last Admin: 01/04/18 23:04 Dose: 5 mg Pantoprazole Sodium (Protonix Inj) 40 mg IVP DAILY [facility] Last Admin: 01/05/18 09:24 Dose: 40 mg - Labs Labs: 01/05/18 06:00 01/05/18 06:00 PT 17.3 SECONDS (9.4-12.5) H 01/05/18 06:00 INR 1.49 01/05/18 06:00 APTT 66.6 Seconds (25.1-36.5) H 01/05/18 07:30 - Constitutional Appears: Non-toxic, No Acute Distress - Head Exam Head Exam: NORMAL INSPECTION - Eye Exam Eye Exam: Normal appearance - Respiratory Exam Respiratory Exam: Clear to Ausculation Bilateral, NORMAL BREATHING PATTERN - Cardiovascular Exam Cardiovascular Exam: REGULAR RHYTHM, +S1, +S2 - GI/Abdominal Exam GI & Abdominal Exam: Soft, Tenderness, Normal Bowel Sounds Additional comments: Surgical changes as expected. Wounds C/D/I. KERI drain with serosang fluid - Extremities Exam Extremities Exam: Normal Inspection - Neurological Exam Neurological Exam: Alert, Awake, Oriented x3 - Psychiatric Exam Psychiatric exam: Normal Affect, Normal Mood - Skin Skin Exam: Dry, Normal Color Assessment and Plan - Assessment and Plan (Free Text) Assessment: 77 year old male with a past medical history significant for stage IV mantle cell lymphoma (quiescence), lung cancer s/p wedge resection, hypoglobulinemia, CAD s/p stent placement, DM2, HTN, COPD, and perforated sigmoid diverticulitis s/p Milli procedure who presented with abdominal pain: Abdominal Pain -s/p colonoscopy 12/31 * one 8mm polyp in cecum removed, diverticulosis in sigmoid colon and in descending colon, internal hemorrhoids, ileum normal, one 5mm polyp in rectum removed * await pathology results -s/p EGD 12/31 * normal examined duodenum, gastritis, esophagogastric landmarks identified -s/p exploratory laparotomy, reversal of colostomy, partial rectal stump resection with end to end anastomosis, extensive lysis of adhesions and mo bilization of splenic flexure, partial omentectomy 01/01 * Of note: While in the PACU patient became less responsive, unarousable, went into respiratory arrest, PRINTING PLATE CLERK called, patient intubated by anesthesia - extubated 01/02 -monitor for bowel function -patient has been transfused 3u pRBCs for low Hgb and also with elevated troponins now on asa, plavix and heparin drip being managed by Dr Perez -He had elevated trop, and started on heparin gtt. He will have cardiac cath Sunday. <Laksiha Casiano V - Last Filed: 01/05/18 19:02> Objective - Vital Signs/Intake and Output Vital Signs (last 24 hours): Temp Pulse Resp BP Pulse Ox 99.4 F 87 25 H 137/86 97 01/05/18 16:00 01/05/18 18:24 01/05/18 17:00 01/05/18 18:24 01/05/18 18:24 Intake and Output: 01/05/18 01/05/18 06:59 18:59 Intake Total 2281 Output Total 950 Balance 1331 - Medications Medications: Current Medications Acetaminophen (Tylenol 325mg Tab) 650 mg PO Q6H PRN PRN Reason: Fever >100.4 F Aspirin (Ecotrin) 81 mg PO DAILY [facility] Last Admin: 01/05/18 09:24 Dose: 81 mg Atorvastatin Calcium (Lipitor) 20 mg PO QPM [facility] Last Admin: 01/05/18 17:13 Dose: 20 mg Clopidogrel Bisulfate (Plavix) 75 mg PO DAILY [facility] Last Admin: 01/05/18 09:25 Dose: 75 mg Ezetimibe (Zetia) 10 mg PO DAILY [facility] Last Admin: 01/05/18 12:08 Dose: 10 mg Furosemide (Lasix) 20 mg PO DAILY [facility] Last Admin: 01/05/18 12:06 Dose: 20 mg Hydromorphone HCl (Dilaudid) 0.5 mg IVP Q3 PRN PRN Reason: Pain, severe (8-10) Last Admin: 01/05/18 18:22 Dose: 0.5 mg Sodium Chloride (Sodium Chloride 0.9%) 1,000 mls @ 50 mls/hr IV .Q20H [facility] Last Admin: 01/04/18 04:30 Dose: 50 mls/hr Heparin Sodium/Sodium Chloride (Heparin 98860 Units/250ml 1/2 Normal Saline) 25,000 units in 250 mls @ 8.274 mls/hr IV .Q24H [facility]; Protocol Last Admin: 01/05/18 17:17 Dose: 9 units/kg/hr, 6.205 mls/hr Potassium Phosphate 20 mmole/ (Sodium Chloride) 256.6667 mls @ 42.5 mls/hr IV ONCE ONE Stop: 01/05/18 19:34 Last Admin: 01/05/18 14:47 Dose: 42.5 mls/hr Insulin Human Regular (Humulin R Low) 0 units SC Q6H [facility]; Protocol Last Admin: 01/05/18 16:32 Dose: Not Given Levalbuterol HCl (Xopenex) 0.63 mg IH TIDRESP [facility] Last Admin: 01/05/18 13:45 Dose: 0.63 mg Metoprolol Tartrate (Lopressor) 25 mg PO DAILY [facility] Last Admin: 01/05/18 09:25 Dose: 25 mg Metoprolol Tartrate (Lopressor) 12.5 mg PO QPM [facility] Last Admin: 01/05/18 17:13 Dose: 12.5 mg Montelukast Sodium (Singulair) 10 mg PO QPM [facility] Last Admin: 01/05/18 17:13 Dose: 10 mg Non-Formulary Medication (Rapaflo) 8 mg PO QPM [facility] Last Admin: 01/05/18 17:14 Dose: 8 mg Non-Formulary Medication (Ranexa) 500 mg PO BID [facility] Last Admin: 01/05/18 17:14 Dose: 500 mg Ondansetron HCl (Zofran Inj) 4 mg IVP Q4H PRN PRN Reason: Nausea/Vomiting Oxybutynin Chloride (Ditropan Tab) 5 mg PO HS [facility] Last Admin: 01/04/18 23:04 Dose: 5 mg Pantoprazole Sodium (Protonix Inj) 40 mg IVP DAILY [facility] Last Admin: 01/05/18 09:24 Dose: 40 mg - Labs Labs: 01/05/18 06:00 01/05/18 06:00 PT 12.8 SECONDS (9.4-12.5) H 01/05/18 07:30 INR 1.11 01/05/18 07:30 APTT 66.6 Seconds (25.1-36.5) H 01/05/18 17:00 Attending/Attestation - Attestation I have personally seen and examined this patient.: Yes I have fully participated in the care of the patient.: Yes I have reviewed all pertinent clinical information, including history, physical exam and plan: Yes Notes (Text): This is an addendum to GI progress report dictated by the GI Fellow.The patient was seen and examined earlier. Medical records, lab studies, imagings were reviewed. Last 24 hours events reviewed. Agreed with the above treatment plan as outlined in GI Fellow 's notes with the addition of the following On liquid diet tolerating Passing flatus on examination abdomen soft bowel sounds present normal Patient is on aspirin Plavix and on heparin close follow-up of hemoglobin and hematocrit Planned for cardiac cath on Sunday Discussed with and also with Dr. Tyler Myers 01/05/18 19:00
[2018-01-05 09:44] LABS: INR 1.11; PROTHROMBIN TIME 12.8 SECONDS (9.4-12.5)
[2018-01-05] MEDS ORDERED: Sodium Phosphate 15 MMOLE in Dextrose 5% In Water 250 ML IVPB ONE (09:53)
--- NOTE | 2018-01-05 10:20 | CP.CCUPN ---
<Shereen Vogel - Last Filed: 01/05/18 10:30> CCU Subjective - Physician Review Subjective (Free Text): CRITICAL CARE PROGRESS NOTE FOR DR. LAKHWINDER Vogel PGY-1 Pt seen and examined at bedside this am. He reports continued hunger. Tolerating CLD well. No symptoms of nausea. He is being transfused 1u pRBC per general surgeon recs. 12 point ROS is negative CCU Objective - Vital Signs / Intake & Output Vital Signs (Last 4 hours): Vital Signs Temp Pulse Resp BP Pulse Ox 01/05/18 10:08 98.4 F 102 H 20 135/75 01/05/18 09:25 100 H 135/75 01/05/18 08:00 98.4 F 01/05/18 07:31 87 01/05/18 07:00 87 25 H 137/69 94 L 01/05/18 06:33 97 H 35 H 154/85 H Intake and Output (Last 8hrs): Intake & Output 01/04/18 01/05/18 01/05/18 22:59 06:59 14:59 Intake Total 885 0 Output Total 40 Balance 845 0 Intake: IV 585 Heparin Drip 75 IVF 300 IVPB 100 Oral 300 Blood Product 0 Apheresis Rbc Cp2d As3 Lr 0 1st Unit [id number] Output: Drainage 40 Right Abdomen 40 - Physical Exam Head: Positive for: Atraumatic, Normocephalic Pupils: Positive for: PERRL Extroacular Muscles: Positive for: EOMI Conjunctiva: Positive for: Normal Mouth: Positive for: Dry Neck: Positive for: Normal Range of Motion Respiratory/Chest: Positive for: Clear to Auscultation, Good Air Exchange. Negative for: Respiratory Distress, Accessory Muscle Use Cardiovascular: Positive for: Regular Rate and Rhythm, Normal S1, S2. Negative for: Murmurs Abdomen: Positive for: Tenderness (non-focal), Other (abdominal dressing place. KERI draining serosanguinous fluid) Back: Positive for: Normal Inspection Upper Extremity: Positive for: Normal Inspection. Negative for: Cyanosis, Edema Lower Extremity: Positive for: Normal Inspection. Negative for: Edema Neurological: Positive for: GCS=15, CN II-XII Intact, Speech Normal Skin: Positive for: Warm, Dry, Normal Color. Negative for: Rashes Psychiatric: Positive for: Alert, Oriented x 3, Normal Insight, Normal Concentration - Medications Active Medications: Active Medications Generic Name Dose Route Start Last Admin Trade Name Freq PRN Reason Stop Dose Admin Acetaminophen 650 mg 12/30/17 17:54 Tylenol 325mg Tab PO Q6H PRN Fever >100.4 F Albuterol/Ipratropium 3 ml 01/02/18 14:00 01/05/18 08:04 Duoneb 3 Mg/0.5 Mg (3 Ml) Ud IH 3 ml [id number] ALEX Administration Aspirin 81 mg 01/04/18 10:00 01/05/18 09:24 Ecotrin PO 81 mg DAILY ALEX Administration Clopidogrel Bisulfate 75 mg 01/05/18 10:00 01/05/18 09:25 Plavix PO 75 mg DAILY ALEX Administration Hydromorphone HCl 0.5 mg 01/02/18 17:13 01/05/18 09:25 Dilaudid IVP 0.5 mg Q3 PRN Administration Pain, severe (8-10) Sodium Chloride 1,000 mls @ 50 mls/hr 01/03/18 08:00 01/04/18 04:30 Sodium Chloride 0.9% IV 50 mls/hr .Q20H ALEX Administration Heparin Sodium/Sodium Chloride 25,000 units in 250 mls @ 8.274 mls/hr 01/04/18 09:30 01/04/18 18:50 Heparin 50051 Units/250ml 1/2 Normal Saline IV 9 units/kg/hr .Q24H ALEX 6.205 mls/hr Titration Protocol 12 UNITS/KG/HR Sodium Phosphate 15 mmole/ 255 mls @ 42.5 mls/hr 01/05/18 09:53 Dextrose IVPB 01/05/18 15:52 ONCE ONE Insulin Human Regular 0 units 01/03/18 16:15 01/05/18 09:20 Humulin R Low SC Not Given Q6H ALEX Protocol Metoprolol Tartrate 25 mg 12/31/17 10:00 01/05/18 09:25 Lopressor PO 25 mg DAILY ALEX Administration Metoprolol Tartrate 12.5 mg 12/30/17 18:00 01/04/18 17:05 Lopressor PO 12.5 mg QPM ALEX Administration Montelukast Sodium 10 mg 12/30/17 18:00 01/04/18 17:04 Singulair PO 10 mg QPM ALEX Administration Non-Formulary Medication 8 mg 12/30/17 19:26 01/04/18 17:42 Rapaflo PO Not Given QPM ALEX Non-Formulary Medication 500 mg 12/30/17 19:28 01/05/18 09:26 Ranexa PO Not Given BID ALEX Ondansetron HCl 4 mg 01/01/18 13:58 Zofran Inj IVP Q4H PRN Nausea/Vomiting Oxybutynin Chloride 5 mg 12/30/17 22:00 01/04/18 23:04 Ditropan Tab PO 5 mg HS ALEX Administration Pantoprazole Sodium 40 mg 01/03/18 10:00 01/05/18 09:24 Protonix Inj IVP 40 mg DAILY ALEX Administration - Patient Studies Lab Studies: Microbiology Studies 01/01/18 19:47 Blood Culture - Preliminary Blood NO GROWTH AFTER 3 DAYS 01/01/18 19:47 Blood Culture - Preliminary Blood NO GROWTH AFTER 3 DAYS 01/02/18 12:00 Gram Stain - Final Sputum Sputum Culture - Final NORMAL ORAL KEAGAN Lab Studies 01/05/18 01/05/18 01/05/18 Range/Units 07:31 07:30 07:30 WBC (4.5-11.0) 10^3/uL RBC (3.5-6.1) 10^6/uL Hgb (14.0-18.0) g/dL Hct (42.0-52.0) % MCV (80.0-105.0) fl MCH (25.0-35.0) pg MCHC (31.0-37.0) g/dl RDW (11.5-14.5) % Plt Count (120.0-450.0) 10^3/uL MPV (7.0-11.0) fl Gran % (50.0-68.0) % Lymph % (Auto) (22.0-35.0) % [place] % (Auto) (1.0-6.0) % Eos % (Auto) (1.5-5.0) % Baso % (Auto) (0.0-3.0) % Gran # (1.4-6.5) Lymph # (Auto) (1.2-3.4) [place] # (Auto) (0.1-0.6) Eos # (Auto) (0.0-0.7) Baso # (Auto) (0.0-2.0) K/mm3 PT 12.8 H (9.4-12.5) SECONDS INR 1.11 APTT 66.6 H (25.1-36.5) Seconds Sodium (132-148) mmol/L Potassium (3.6-5.0) mmol/L Chloride (98-107) mmol/L Carbon Dioxide (21-33) mmol/L Anion Gap (10-20) BUN (7-21) mg/dL Creatinine (0.8-1.5) mg/dl Est GFR ( Amer) Est GFR (Non-Af Amer) POC Glucose (mg/dL) 118 H (65-110) mg/dL Random Glucose (70-110) mg/dL Calcium (8.4-10.5) mg/dL Phosphorus (2.5-4.5) mg/dL Magnesium (1.7-2.2) mg/dL Total Bilirubin (0.2-1.3) mg/dL AST (17-59) U/L ALT (7-56) U/L Alkaline Phosphatase (38-126) U/L Lactate Dehydrogenase (333-699) U/L Total Creatine Kinase (35-230) U/L Troponin I ng/mL Total Protein (5.8-8.3) g/dL Albumin (3.0-4.8) g/dL Globulin gm/dL Albumin/Globulin Ratio (1.1-1.8) Blood Type Antibody Screen Crossmatch BBK History Checked 01/05/18 01/05/18 01/05/18 Range/Units 06:00 06:00 06:00 WBC 6.7 D (4.5-11.0) 10^3/uL RBC 3.09 L (3.5-6.1) 10^6/uL Hgb 9.1 L (14.0-18.0) g/dL Hct 27.8 L (42.0-52.0) % MCV 90.0 (80.0-105.0) fl MCH 29.4 (25.0-35.0) pg MCHC 32.7 (31.0-37.0) g/dl RDW 15.2 H (11.5-14.5) % Plt Count 144 (120.0-450.0) 10^3/uL MPV 10.5 (7.0-11.0) fl Gran % 74.2 H (50.0-68.0) % Lymph % (Auto) 16.2 L (22.0-35.0) % [place] % (Auto) 6.0 (1.0-6.0) % Eos % (Auto) 3.0 (1.5-5.0) % Baso % (Auto) 0.6 (0.0-3.0) % Gran # 4.98 (1.4-6.5) Lymph # (Auto) 1.1 L (1.2-3.4) [place] # (Auto) 0.4 (0.1-0.6) Eos # (Auto) 0.2 (0.0-0.7) Baso # (Auto) 0.04 (0.0-2.0) K/mm3 PT 17.3 H (9.4-12.5) SECONDS INR 1.49 APTT > 220.0 H* (25.1-36.5) Seconds Sodium 139 (132-148) mmol/L Potassium 3.4 L (3.6-5.0) mmol/L Chloride 107 (98-107) mmol/L Carbon Dioxide 27 (21-33) mmol/L Anion Gap 8 L (10-20) BUN 11 (7-21) mg/dL Creatinine 0.8 (0.8-1.5) mg/dl Est GFR ( Amer) > 60 Est GFR (Non-Af Amer) > 60 POC Glucose (mg/dL) (65-110) mg/dL Random Glucose 128 H (70-110) mg/dL Calcium 7.8 L (8.4-10.5) mg/dL Phosphorus 1.6 L (2.5-4.5) mg/dL Magnesium 2.1 (1.7-2.2) mg/dL Total Bilirubin 3.5 H (0.2-1.3) mg/dL AST 92 H D (17-59) U/L ALT 86 H (7-56) U/L Alkaline Phosphatase 98 (38-126) U/L Lactate Dehydrogenase 809 H (333-699) U/L Total Creatine Kinase 101 (35-230) U/L Troponin I 3.89 H* ng/mL Total Protein 5.5 L (5.8-8.3) g/dL Albumin 2.6 L (3.0-4.8) g/dL Globulin 2.9 gm/dL Albumin/Globulin Ratio 0.9 L (1.1-1.8) Blood Type Antibody Screen Crossmatch BBK History Checked 01/05/18 01/04/18 01/04/18 Range/Units 01:00 23:25 21:55 WBC (4.5-11.0) 10^3/uL RBC (3.5-6.1) 10^6/uL Hgb (14.0-18.0) g/dL Hct (42.0-52.0) % MCV (80.0-105.0) fl MCH (25.0-35.0) pg MCHC (31.0-37.0) g/dl RDW (11.5-14.5) % Plt Count (120.0-450.0) 10^3/uL MPV (7.0-11.0) fl Gran % (50.0-68.0) % Lymph % (Auto) (22.0-35.0) % [place] % (Auto) (1.0-6.0) % Eos % (Auto) (1.5-5.0) % Baso % (Auto) (0.0-3.0) % Gran # (1.4-6.5) Lymph # (Auto) (1.2-3.4) [place] # (Auto) (0.1-0.6) Eos # (Auto) (0.0-0.7) Baso # (Auto) (0.0-2.0) K/mm3 PT (9.4-12.5) SECONDS INR APTT 74.6 H (25.1-36.5) Seconds Sodium (132-148) mmol/L Potassium (3.6-5.0) mmol/L Chloride (98-107) mmol/L Carbon Dioxide (21-33) mmol/L Anion Gap (10-20) BUN (7-21) mg/dL Creatinine (0.8-1.5) mg/dl Est GFR ( Amer) Est GFR (Non-Af Amer) POC Glucose (mg/dL) 98 (65-110) mg/dL Random Glucose (70-110) mg/dL Calcium (8.4-10.5) mg/dL Phosphorus (2.5-4.5) mg/dL Magnesium (1.7-2.2) mg/dL Total Bilirubin (0.2-1.3) mg/dL AST (17-59) U/L ALT (7-56) U/L Alkaline Phosphatase (38-126) U/L Lactate Dehydrogenase (333-699) U/L Total Creatine Kinase (35-230) U/L Troponin I 4.32 H* ng/mL Total Protein (5.8-8.3) g/dL Albumin (3.0-4.8) g/dL Globulin gm/dL Albumin/Globulin Ratio (1.1-1.8) Blood Type Antibody Screen Crossmatch BBK History Checked 01/04/18 01/04/18 01/04/18 Range/Units 17:20 16:36 16:29 WBC (4.5-11.0) 10^3/uL RBC (3.5-6.1) 10^6/uL Hgb (14.0-18.0) g/dL Hct (42.0-52.0) % MCV (80.0-105.0) fl MCH (25.0-35.0) pg MCHC (31.0-37.0) g/dl RDW (11.5-14.5) % Plt Count (120.0-450.0) 10^3/uL MPV (7.0-11.0) fl Gran % (50.0-68.0) % Lymph % (Auto) (22.0-35.0) % [place] % (Auto) (1.0-6.0) % Eos % (Auto) (1.5-5.0) % Baso % (Auto) (0.0-3.0) % Gran # (1.4-6.5) Lymph # (Auto) (1.2-3.4) [place] # (Auto) (0.1-0.6) Eos # (Auto) (0.0-0.7) Baso # (Auto) (0.0-2.0) K/mm3 PT (9.4-12.5) SECONDS INR APTT 97.8 H (25.1-36.5) Seconds Sodium (132-148) mmol/L Potassium (3.6-5.0) mmol/L Chloride (98-107) mmol/L Carbon Dioxide (21-33) mmol/L Anion Gap (10-20) BUN (7-21) mg/dL Creatinine (0.8-1.5) mg/dl Est GFR ( Amer) Est GFR (Non-Af Amer) POC Glucose (mg/dL) 153 H (65-110) mg/dL Random Glucose (70-110) mg/dL Calcium (8.4-10.5) mg/dL Phosphorus (2.5-4.5) mg/dL Magnesium (1.7-2.2) mg/dL Total Bilirubin (0.2-1.3) mg/dL AST (17-59) U/L ALT (7-56) U/L Alkaline Phosphatase (38-126) U/L Lactate Dehydrogenase (333-699) U/L Total Creatine Kinase (35-230) U/L Troponin I 4.69 H* D ng/mL Total Protein (5.8-8.3) g/dL Albumin (3.0-4.8) g/dL Globulin gm/dL Albumin/Globulin Ratio (1.1-1.8) Blood Type Antibody Screen Crossmatch BBK History Checked 01/04/18 01/04/18 01/04/18 Range/Units 11:27 10:25 07:49 WBC (4.5-11.0) 10^3/uL RBC (3.5-6.1) 10^6/uL Hgb (14.0-18.0) g/dL Hct (42.0-52.0) % MCV (80.0-105.0) fl MCH (25.0-35.0) pg MCHC (31.0-37.0) g/dl RDW (11.5-14.5) % Plt Count (120.0-450.0) 10^3/uL MPV (7.0-11.0) fl Gran % (50.0-68.0) % Lymph % (Auto) (22.0-35.0) % [place] % (Auto) (1.0-6.0) % Eos % (Auto) (1.5-5.0) % Baso % (Auto) (0.0-3.0) % Gran # (1.4-6.5) Lymph # (Auto) (1.2-3.4) [place] # (Auto) (0.1-0.6) Eos # (Auto) (0.0-0.7) Baso # (Auto) (0.0-2.0) K/mm3 PT (9.4-12.5) SECONDS INR APTT (25.1-36.5) Seconds Sodium (132-148) mmol/L Potassium (3.6-5.0) mmol/L Chloride (98-107) mmol/L Carbon Dioxide (21-33) mmol/L Anion Gap (10-20) BUN (7-21) mg/dL Creatinine (0.8-1.5) mg/dl Est GFR ( Amer) Est GFR (Non-Af Amer) POC Glucose (mg/dL) 128 H 128 H (65-110) mg/dL Random Glucose (70-110) mg/dL Calcium (8.4-10.5) mg/dL Phosphorus (2.5-4.5) mg/dL Magnesium (1.7-2.2) mg/dL Total Bilirubin (0.2-1.3) mg/dL AST (17-59) U/L ALT (7-56) U/L Alkaline Phosphatase (38-126) U/L Lactate Dehydrogenase (333-699) U/L Total Creatine Kinase (35-230) U/L Troponin I 6.93 H* ng/mL Total Protein (5.8-8.3) g/dL Albumin (3.0-4.8) g/dL Globulin gm/dL Albumin/Globulin Ratio (1.1-1.8) Blood Type Antibody Screen Crossmatch BBK History Checked 01/03/18 Range/Units 16:00 WBC (4.5-11.0) 10^3/uL RBC (3.5-6.1) 10^6/uL Hgb (14.0-18.0) g/dL Hct (42.0-52.0) % MCV (80.0-105.0) fl MCH (25.0-35.0) pg MCHC (31.0-37.0) g/dl RDW (11.5-14.5) % Plt Count (120.0-450.0) 10^3/uL MPV (7.0-11.0) fl Gran % (50.0-68.0) % Lymph % (Auto) (22.0-35.0) % [place] % (Auto) (1.0-6.0) % Eos % (Auto) (1.5-5.0) % Baso % (Auto) (0.0-3.0) % Gran # (1.4-6.5) Lymph # (Auto) (1.2-3.4) [place] # (Auto) (0.1-0.6) Eos # (Auto) (0.0-0.7) Baso # (Auto) (0.0-2.0) K/mm3 PT (9.4-12.5) SECONDS INR APTT (25.1-36.5) Seconds Sodium (132-148) mmol/L Potassium (3.6-5.0) mmol/L Chloride (98-107) mmol/L Carbon Dioxide (21-33) mmol/L Anion Gap (10-20) BUN (7-21) mg/dL Creatinine (0.8-1.5) mg/dl Est GFR ( Amer) Est GFR (Non-Af Amer) POC Glucose (mg/dL) (65-110) mg/dL Random Glucose (70-110) mg/dL Calcium (8.4-10.5) mg/dL Phosphorus (2.5-4.5) mg/dL Magnesium (1.7-2.2) mg/dL Total Bilirubin (0.2-1.3) mg/dL AST (17-59) U/L ALT (7-56) U/L Alkaline Phosphatase (38-126) U/L Lactate Dehydrogenase (333-699) U/L Total Creatine Kinase (35-230) U/L Troponin I ng/mL Total Protein (5.8-8.3) g/dL Albumin (3.0-4.8) g/dL Globulin gm/dL Albumin/Globulin Ratio (1.1-1.8) Blood Type A NEGATIVE Antibody Screen Negative Crossmatch See Detail BBK History Checked Patient has bt Laboratory Results - last 24 hr 01/03/18 01/04/18 01/04/18 16:00 07:49 10:25 WBC RBC Hgb Hct MCV MCH MCHC RDW Plt Count MPV Gran % Lymph % (Auto) [place] % (Auto) Eos % (Auto) Baso % (Auto) Gran # Lymph # (Auto) [place] # (Auto) Eos # (Auto) Baso # (Auto) PT INR APTT Sodium Potassium Chloride Carbon Dioxide Anion Gap BUN Creatinine Est GFR ( Amer) Est GFR (Non-Af Amer) POC Glucose (mg/dL) 128 H Random Glucose Calcium Phosphorus Magnesium Total Bilirubin AST ALT Alkaline Phosphatase Lactate Dehydrogenase Total Creatine Kinase Troponin I 6.93 H* Total Protein Albumin Globulin Albumin/Globulin Ratio Blood Type A NEGATIVE Antibody Screen Negative Crossmatch See Detail BBK History Checked Patient has bt 01/04/18 01/04/18 01/04/18 11:27 16:29 16:36 WBC RBC Hgb Hct MCV MCH MCHC RDW Plt Count MPV Gran % Lymph % (Auto) [place] % (Auto) Eos % (Auto) Baso % (Auto) Gran # Lymph # (Auto) [place] # (Auto) Eos # (Auto) Baso # (Auto) PT INR APTT Sodium Potassium Chloride Carbon Dioxide Anion Gap BUN Creatinine Est GFR ( Amer) Est GFR (Non-Af Amer) POC Glucose (mg/dL) 128 H 153 H Random Glucose Calcium Phosphorus Magnesium Total Bilirubin AST ALT Alkaline Phosphatase Lactate Dehydrogenase Total Creatine Kinase Troponin I 4.69 H* D Total Protein Albumin Globulin Albumin/Globulin Ratio Blood Type Antibody Screen Crossmatch BBK History Checked 01/04/18 01/04/18 01/04/18 17:20 21:55 23:25 WBC RBC Hgb Hct MCV MCH MCHC RDW Plt Count MPV Gran % Lymph % (Auto) [place] % (Auto) Eos % (Auto) Baso % (Auto) Gran # Lymph # (Auto) [place] # (Auto) Eos # (Auto) Baso # (Auto) PT INR APTT 97.8 H Sodium Potassium Chloride Carbon Dioxide Anion Gap BUN Creatinine Est GFR ( Amer) Est GFR (Non-Af Amer) POC Glucose (mg/dL) 98 Random Glucose Calcium Phosphorus Magnesium Total Bilirubin AST ALT Alkaline Phosphatase Lactate Dehydrogenase Total Creatine Kinase Troponin I 4.32 H* Total Protein Albumin Globulin Albumin/Globulin Ratio Blood Type Antibody Screen Crossmatch BBK History Checked 01/05/18 01/05/18 01/05/18 01:00 06:00 06:00 WBC 6.7 D RBC 3.09 L Hgb 9.1 L Hct 27.8 L MCV 90.0 MCH 29.4 MCHC 32.7 RDW 15.2 H Plt Count 144 MPV 10.5 Gran % 74.2 H Lymph % (Auto) 16.2 L [place] % (Auto) 6.0 Eos % (Auto) 3.0 Baso % (Auto) 0.6 Gran # 4.98 Lymph # (Auto) 1.1 L [place] # (Auto) 0.4 Eos # (Auto) 0.2 Baso # (Auto) 0.04 PT 17.3 H INR 1.49 APTT 74.6 H > 220.0 H* Sodium Potassium Chloride Carbon Dioxide Anion Gap BUN Creatinine Est GFR ( Amer) Est GFR (Non-Af Amer) POC Glucose (mg/dL) Random Glucose Calcium Phosphorus Magnesium Total Bilirubin AST ALT Alkaline Phosphatase Lactate Dehydrogenase Total Creatine Kinase Troponin I Total Protein Albumin Globulin Albumin/Globulin Ratio Blood Type Antibody Screen Crossmatch BBK History Checked 01/05/18 01/05/18 01/05/18 06:00 07:30 07:30 WBC RBC Hgb Hct MCV MCH MCHC RDW Plt Count MPV Gran % Lymph % (Auto) [place] % (Auto) Eos % (Auto) Baso % (Auto) Gran # Lymph # (Auto) [place] # (Auto) Eos # (Auto) Baso # (Auto) PT 12.8 H INR 1.11 APTT 66.6 H Sodium 139 Potassium 3.4 L Chloride 107 Carbon Dioxide 27 Anion Gap 8 L BUN 11 Creatinine 0.8 Est GFR ( Amer) > 60 Est GFR (Non-Af Amer) > 60 POC Glucose (mg/dL) Random Glucose 128 H Calcium 7.8 L Phosphorus 1.6 L Magnesium 2.1 Total Bilirubin 3.5 H AST 92 H D ALT 86 H Alkaline Phosphatase 98 Lactate Dehydrogenase 809 H Total Creatine Kinase 101 Troponin I 3.89 H* Total Protein 5.5 L Albumin 2.6 L Globulin 2.9 Albumin/Globulin Ratio 0.9 L Blood Type Antibody Screen Crossmatch BBK History Checked 01/05/18 07:31 WBC RBC Hgb Hct MCV MCH MCHC RDW Plt Count MPV Gran % Lymph % (Auto) [place] % (Auto) Eos % (Auto) Baso % (Auto) Gran # Lymph # (Auto) [place] # (Auto) Eos # (Auto) Baso # (Auto) PT INR APTT Sodium Potassium Chloride Carbon Dioxide Anion Gap BUN Creatinine Est GFR ( Amer) Est GFR (Non-Af Amer) POC Glucose (mg/dL) 118 H Random Glucose Calcium Phosphorus Magnesium Total Bilirubin AST ALT Alkaline Phosphatase Lactate Dehydrogenase Total Creatine Kinase Troponin I Total Protein Albumin Globulin Albumin/Globulin Ratio Blood Type Antibody Screen Crossmatch BBK History Checked Fingerstick Blood Sugar Results: 118 Review of Systems - Review of Systems Review of Systems: per HPI Critical Care Progress Note - Nutrition Nutrition: Nutrition Category Date Time Status Liquid Diet [DIET] Diets 01/04/18 Lunch Ordered Assessment/Plan - Assessment and Plan (Free Text) Assessment: 77 y/o M with PMHx of perforated diverticulitis s/p nishant procedure, s/p colostomy reversal, stage 4 mantle cell lymphoma, lung ca s/p wedge resection, cad s/p stents x 4, dm, htn, copd admitted to ICU for post-operative respiratory failure s/p extubation. Rapid response was called in PACU as patient was unresponsive and not breathing. He was found to be in hypercapnic respiratory acidosis. He was subsequently sedated, intubated and placed on ventilator. He was subsequently extubated and monitored in ICU on minimal O2 supplementation. Plan: Neuro: Alert, awake & oriented x 3 No FND Extubated on 3L NC no FND Currently off of precedex Cardio: Normotensive Not on any vasopressors Elevated troponins Started on ACS protocol Echo stat. Revealed no wall motion abnormalities Aspirin Plavix Heparin drip continue metoprolol 25 mg Pt to undergo cardiac cath in 2-3 days maintain map >65 tachycardic, likely secondary to pain/anxiety Pulmonary: Extubated 01/02 Encourage early mobilization Pulmonary toilet Chest PT Incentive spirometry OOB to chair physical therapy hob elevated to 35 degrees oral hygiene SaO2 sat >90% GI: s/o colostomy reversal abdominal dressing in place. KERI draining serosanguinous fluid No signs of acute abdomen, active bleeding tolerating clear liquid diet followed by surgery team, appreciate recs : Monitor I/Os closely replete electrolytes prn maintain euvolemia Heme: H/H: 9.1/27.8 Dr Pabon, general surgery, ordered 1u pRBC. He prefers to keep Hgb above 10 Recommend maintaining hemoglobin > 7-9 (TRICC trial) ID: lactate improved on most recent abg DVT/GI Ppx: Hep drip/protonix Case seen, examined and discussed with attending physician, Dr. Carroll <Jose Guaadlupe Carroll - Last Filed: 01/05/18 11:23> CCU Objective - Vital Signs / Intake & Output Vital Signs (Last 4 hours): Vital Signs Temp Pulse Resp BP Pulse Ox 01/05/18 10:26 102 H 21 137/76 100 01/05/18 10:24 98.8 F 91 H 22 133/79 01/05/18 10:08 98.4 F 102 H 20 135/75 01/05/18 10:00 101 H 25 H 140/81 99 01/05/18 09:25 100 H 135/75 01/05/18 09:00 95 H 23 135/75 100 01/05/18 08:00 98.4 F 144/81 01/05/18 07:59 76 15 01/05/18 07:31 87 Intake and Output (Last 8hrs): Intake & Output 01/04/18 01/05/18 01/05/18 22:59 06:59 14:59 Intake Total 885 740 Output Total 40 40 Balance 845 700 Intake: IV 585 Heparin Drip 75 IVF 300 IVPB 100 Oral 300 740 Blood Product 0 Apheresis Rbc Cp2d As3 Lr 0 1st Unit [id number] Output: Drainage 40 40 Right Abdomen 40 40 - Medications Active Medications: Active Medications Generic Name Dose Route Start Last Admin Trade Name Freq PRN Reason Stop Dose Admin Acetaminophen 650 mg 12/30/17 17:54 Tylenol 325mg Tab PO Q6H PRN Fever >100.4 F Albuterol/Ipratropium 3 ml 01/02/18 14:00 01/05/18 08:04 Duoneb 3 Mg/0.5 Mg (3 Ml) Ud IH 3 ml [id number] ALEX Administration Aspirin 81 mg 01/04/18 10:00 01/05/18 09:24 Ecotrin PO 81 mg DAILY ALEX Administration Clopidogrel Bisulfate 75 mg 01/05/18 10:00 01/05/18 09:25 Plavix PO 75 mg DAILY ALEX Administration Hydromorphone HCl 0.5 mg 01/02/18 17:13 01/05/18 09:25 Dilaudid IVP 0.5 mg Q3 PRN Administration Pain, severe (8-10) Sodium Chloride 1,000 mls @ 50 mls/hr 01/03/18 08:00 01/04/18 04:30 Sodium Chloride 0.9% IV 50 mls/hr .Q20H ALEX Administration Heparin Sodium/Sodium Chloride 25,000 units in 250 mls @ 8.274 mls/hr 01/04/18 09:30 01/04/18 18:50 Heparin 08656 Units/250ml 1/2 Normal Saline IV 9 units/kg/hr .Q24H ALEX 6.205 mls/hr Titration Protocol 12 UNITS/KG/HR Sodium Phosphate 15 mmole/ 255 mls @ 42.5 mls/hr 01/05/18 09:53 Dextrose IVPB 01/05/18 15:52 ONCE ONE Insulin Human Regular 0 units 01/03/18 16:15 01/05/18 09:20 Humulin R Low SC Not Given Q6H ALEX Protocol Metoprolol Tartrate 25 mg 12/31/17 10:00 01/05/18 09:25 Lopressor PO 25 mg DAILY ALEX Administration Metoprolol Tartrate 12.5 mg 12/30/17 18:00 01/04/18 17:05 Lopressor PO 12.5 mg QPM ALEX Administration Montelukast Sodium 10 mg 12/30/17 18:00 01/04/18 17:04 Singulair PO 10 mg QPM ALEX Administration Non-Formulary Medication 8 mg 12/30/17 19:26 01/04/18 17:42 Rapaflo PO Not Given QPM ALEX Non-Formulary Medication 500 mg 12/30/17 19:28 01/05/18 09:26 Ranexa PO Not Given BID ALEX Ondansetron HCl 4 mg 01/01/18 13:58 Zofran Inj IVP Q4H PRN Nausea/Vomiting Oxybutynin Chloride 5 mg 12/30/17 22:00 01/04/18 23:04 Ditropan Tab PO 5 mg HS ALEX Administration Pantoprazole Sodium 40 mg 01/03/18 10:00 01/05/18 09:24 Protonix Inj IVP 40 mg DAILY ALEX Administration - Patient Studies Lab Studies: Microbiology Studies 01/01/18 19:47 Blood Culture - Preliminary Blood NO GROWTH AFTER 3 DAYS 01/01/18 19:47 Blood Culture - Preliminary Blood NO GROWTH AFTER 3 DAYS 01/02/18 12:00 Gram Stain - Final Sputum Sputum Culture - Final NORMAL [facility]AL [facility] Lab Studies 01/05/18 01/05/18 01/05/18 Range/Units 07:31 07:30 07:30 WBC (4.5-11.0) 10^3/uL RBC (3.5-6.1) 10^6/uL Hgb (14.0-18.0) g/dL Hct (42.0-52.0) % MCV (80.0-105.0) fl MCH (25.0-35.0) pg MCHC (31.0-37.0) g/dl RDW (11.5-14.5) % Plt Count (120.0-450.0) 10^3/uL MPV (7.0-11.0) fl Gran % (50.0-68.0) % Lymph % (Auto) (22.0-35.0) % [place] % (Auto) (1.0-6.0) % Eos % (Auto) (1.5-5.0) % Baso % (Auto) (0.0-3.0) % Gran # (1.4-6.5) Lymph # (Auto) (1.2-3.4) [place] # (Auto) (0.1-0.6) Eos # (Auto) (0.0-0.7) Baso # (Auto) (0.0-2.0) K/mm3 PT 12.8 H (9.4-12.5) SECONDS INR 1.11 APTT 66.6 H (25.1-36.5) Seconds Sodium (132-148) mmol/L Potassium (3.6-5.0) mmol/L Chloride (98-107) mmol/L Carbon Dioxide (21-33) mmol/L Anion Gap (10-20) BUN (7-21) mg/dL Creatinine (0.8-1.5) mg/dl Est GFR ( Amer) Est GFR (Non-Af Amer) POC Glucose (mg/dL) 118 H (65-110) mg/dL Random Glucose (70-110) mg/dL Calcium (8.4-10.5) mg/dL Phosphorus (2.5-4.5) mg/dL Magnesium (1.7-2.2) mg/dL Total Bilirubin (0.2-1.3) mg/dL AST (17-59) U/L ALT (7-56) U/L Alkaline Phosphatase (38-126) U/L Lactate Dehydrogenase (333-699) U/L Total Creatine Kinase (35-230) U/L Troponin I ng/mL Total Protein (5.8-8.3) g/dL Albumin (3.0-4.8) g/dL Globulin gm/dL Albumin/Globulin Ratio (1.1-1.8) Blood Type Antibody Screen Crossmatch BBK History Checked 01/05/18 01/05/18 01/05/18 Range/Units 06:00 06:00 06:00 WBC 6.7 D (4.5-11.0) 10^3/uL RBC 3.09 L (3.5-6.1) 10^6/uL Hgb 9.1 L (14.0-18.0) g/dL Hct 27.8 L (42.0-52.0) % MCV 90.0 (80.0-105.0) fl MCH 29.4 (25.0-35.0) pg MCHC 32.7 (31.0-37.0) g/dl RDW 15.2 H (11.5-14.5) % Plt Count 144 (120.0-450.0) 10^3/uL MPV 10.5 (7.0-11.0) fl Gran % 74.2 H (50.0-68.0) % Lymph % (Auto) 16.2 L (22.0-35.0) % [place] % (Auto) 6.0 (1.0-6.0) % Eos % (Auto) 3.0 (1.5-5.0) % Baso % (Auto) 0.6 (0.0-3.0) % Gran # 4.98 (1.4-6.5) Lymph # (Auto) 1.1 L (1.2-3.4) [place] # (Auto) 0.4 (0.1-0.6) Eos # (Auto) 0.2 (0.0-0.7) Baso # (Auto) 0.04 (0.0-2.0) K/mm3 PT 17.3 H (9.4-12.5) SECONDS INR 1.49 APTT > 220.0 H* (25.1-36.5) Seconds Sodium 139 (132-148) mmol/L Potassium 3.4 L (3.6-5.0) mmol/L Chloride 107 (98-107) mmol/L Carbon Dioxide 27 (21-33) mmol/L Anion Gap 8 L (10-20) BUN 11 (7-21) mg/dL Creatinine 0.8 (0.8-1.5) mg/dl Est GFR ( Amer) > 60 Est GFR (Non-Af Amer) > 60 POC Glucose (mg/dL) (65-110) mg/dL Random Glucose 128 H (70-110) mg/dL Calcium 7.8 L (8.4-10.5) mg/dL Phosphorus 1.6 L (2.5-4.5) mg/dL Magnesium 2.1 (1.7-2.2) mg/dL Total Bilirubin 3.5 H (0.2-1.3) mg/dL AST 92 H D (17-59) U/L ALT 86 H (7-56) U/L Alkaline Phosphatase 98 (38-126) U/L Lactate Dehydrogenase 809 H (333-699) U/L Total Creatine Kinase 101 (35-230) U/L Troponin I 3.89 H* ng/mL Total Protein 5.5 L (5.8-8.3) g/dL Albumin 2.6 L (3.0-4.8) g/dL Globulin 2.9 gm/dL Albumin/Globulin Ratio 0.9 L (1.1-1.8) Blood Type Antibody Screen Crossmatch BBK History Checked 01/05/18 01/04/18 01/04/18 Range/Units 01:00 23:25 21:55 WBC (4.5-11.0) 10^3/uL RBC (3.5-6.1) 10^6/uL Hgb (14.0-18.0) g/dL Hct (42.0-52.0) % MCV (80.0-105.0) fl MCH (25.0-35.0) pg MCHC (31.0-37.0) g/dl RDW (11.5-14.5) % Plt Count (120.0-450.0) 10^3/uL MPV (7.0-11.0) fl Gran % (50.0-68.0) % Lymph % (Auto) (22.0-35.0) % [place] % (Auto) (1.0-6.0) % Eos % (Auto) (1.5-5.0) % Baso % (Auto) (0.0-3.0) % Gran # (1.4-6.5) Lymph # (Auto) (1.2-3.4) [place] # (Auto) (0.1-0.6) Eos # (Auto) (0.0-0.7) Baso # (Auto) (0.0-2.0) K/mm3 PT (9.4-12.5) SECONDS INR APTT 74.6 H (25.1-36.5) Seconds Sodium (132-148) mmol/L Potassium (3.6-5.0) mmol/L Chloride (98-107) mmol/L Carbon Dioxide (21-33) mmol/L Anion Gap (10-20) BUN (7-21) mg/dL Creatinine (0.8-1.5) mg/dl Est GFR ( Amer) Est GFR (Non-Af Amer) POC Glucose (mg/dL) 98 (65-110) mg/dL Random Glucose (70-110) mg/dL Calcium (8.4-10.5) mg/dL Phosphorus (2.5-4.5) mg/dL Magnesium (1.7-2.2) mg/dL Total Bilirubin (0.2-1.3) mg/dL AST (17-59) U/L ALT (7-56) U/L Alkaline Phosphatase (38-126) U/L Lactate Dehydrogenase (333-699) U/L Total Creatine Kinase (35-230) U/L Troponin I 4.32 H* ng/mL Total Protein (5.8-8.3) g/dL Albumin (3.0-4.8) g/dL Globulin gm/dL Albumin/Globulin Ratio (1.1-1.8) Blood Type Antibody Screen Crossmatch BBK History Checked 01/04/18 01/04/18 01/04/18 Range/Units 17:20 16:36 16:29 WBC (4.5-11.0) 10^3/uL RBC (3.5-6.1) 10^6/uL Hgb (14.0-18.0) g/dL Hct (42.0-52.0) % MCV (80.0-105.0) fl MCH (25.0-35.0) pg MCHC (31.0-37.0) g/dl RDW (11.5-14.5) % Plt Count (120.0-450.0) 10^3/uL MPV (7.0-11.0) fl Gran % (50.0-68.0) % Lymph % (Auto) (22.0-35.0) % [place] % (Auto) (1.0-6.0) % Eos % (Auto) (1.5-5.0) % Baso % (Auto) (0.0-3.0) % Gran # (1.4-6.5) Lymph # (Auto) (1.2-3.4) [place] # (Auto) (0.1-0.6) Eos # (Auto) (0.0-0.7) Baso # (Auto) (0.0-2.0) K/mm3 PT (9.4-12.5) SECONDS INR APTT 97.8 H (25.1-36.5) Seconds Sodium (132-148) mmol/L Potassium (3.6-5.0) mmol/L Chloride (98-107) mmol/L Carbon Dioxide (21-33) mmol/L Anion Gap (10-20) BUN (7-21) mg/dL Creatinine (0.8-1.5) mg/dl Est GFR ( Amer) Est GFR (Non-Af Amer) POC Glucose (mg/dL) 153 H (65-110) mg/dL Random Glucose (70-110) mg/dL Calcium (8.4-10.5) mg/dL Phosphorus (2.5-4.5) mg/dL Magnesium (1.7-2.2) mg/dL Total Bilirubin (0.2-1.3) mg/dL AST (17-59) U/L ALT (7-56) U/L Alkaline Phosphatase (38-126) U/L Lactate Dehydrogenase (333-699) U/L Total Creatine Kinase (35-230) U/L Troponin I 4.69 H* D ng/mL Total Protein (5.8-8.3) g/dL Albumin (3.0-4.8) g/dL Globulin gm/dL Albumin/Globulin Ratio (1.1-1.8) Blood Type Antibody Screen Crossmatch BBK History Checked 01/04/18 01/04/18 01/03/18 Range/Units 11:27 07:49 16:00 WBC (4.5-11.0) 10^3/uL RBC (3.5-6.1) 10^6/uL Hgb (14.0-18.0) g/dL Hct (42.0-52.0) % MCV (80.0-105.0) fl MCH (25.0-35.0) pg MCHC (31.0-37.0) g/dl RDW (11.5-14.5) % Plt Count (120.0-450.0) 10^3/uL MPV (7.0-11.0) fl Gran % (50.0-68.0) % Lymph % (Auto) (22.0-35.0) % [place] % (Auto) (1.0-6.0) % Eos % (Auto) (1.5-5.0) % Baso % (Auto) (0.0-3.0) % Gran # (1.4-6.5) Lymph # (Auto) (1.2-3.4) [place] # (Auto) (0.1-0.6) Eos # (Auto) (0.0-0.7) Baso # (Auto) (0.0-2.0) K/mm3 PT (9.4-12.5) SECONDS INR APTT (25.1-36.5) Seconds Sodium (132-148) mmol/L Potassium (3.6-5.0) mmol/L Chloride (98-107) mmol/L Carbon Dioxide (21-33) mmol/L Anion Gap (10-20) BUN (7-21) mg/dL Creatinine (0.8-1.5) mg/dl Est GFR ( Amer) Est GFR (Non-Af Amer) POC Glucose (mg/dL) 128 H 128 H (65-110) mg/dL Random Glucose (70-110) mg/dL Calcium (8.4-10.5) mg/dL Phosphorus (2.5-4.5) mg/dL Magnesium (1.7-2.2) mg/dL Total Bilirubin (0.2-1.3) mg/dL AST (17-59) U/L ALT (7-56) U/L Alkaline Phosphatase (38-126) U/L Lactate Dehydrogenase (333-699) U/L Total Creatine Kinase (35-230) U/L Troponin I ng/mL Total Protein (5.8-8.3) g/dL Albumin (3.0-4.8) g/dL Globulin gm/dL Albumin/Globulin Ratio (1.1-1.8) Blood Type A NEGATIVE Antibody Screen Negative Crossmatch See Detail BBK History Checked Patient has bt 01/01/18 Range/Units 07:45 WBC (4.5-11.0) 10^3/uL RBC (3.5-6.1) 10^6/uL Hgb (14.0-18.0) g/dL Hct (42.0-52.0) % MCV (80.0-105.0) fl MCH (25.0-35.0) pg MCHC (31.0-37.0) g/dl RDW (11.5-14.5) % Plt Count (120.0-450.0) 10^3/uL MPV (7.0-11.0) fl Gran % (50.0-68.0) % Lymph % (Auto) (22.0-35.0) % [place] % (Auto) (1.0-6.0) % Eos % (Auto) (1.5-5.0) % Baso % (Auto) (0.0-3.0) % Gran # (1.4-6.5) Lymph # (Auto) (1.2-3.4) [place] # (Auto) (0.1-0.6) Eos # (Auto) (0.0-0.7) Baso # (Auto) (0.0-2.0) K/mm3 PT (9.4-12.5) SECONDS INR APTT (25.1-36.5) Seconds Sodium (132-148) mmol/L Potassium (3.6-5.0) mmol/L Chloride (98-107) mmol/L Carbon Dioxide (21-33) mmol/L Anion Gap (10-20) BUN (7-21) mg/dL Creatinine (0.8-1.5) mg/dl Est GFR ( Amer) Est GFR (Non-Af Amer) POC Glucose (mg/dL) (65-110) mg/dL Random Glucose (70-110) mg/dL Calcium (8.4-10.5) mg/dL Phosphorus (2.5-4.5) mg/dL Magnesium (1.7-2.2) mg/dL Total Bilirubin (0.2-1.3) mg/dL AST (17-59) U/L ALT (7-56) U/L Alkaline Phosphatase (38-126) U/L Lactate Dehydrogenase (333-699) U/L Total Creatine Kinase (35-230) U/L Troponin I ng/mL Total Protein (5.8-8.3) g/dL Albumin (3.0-4.8) g/dL Globulin gm/dL Albumin/Globulin Ratio (1.1-1.8) Blood Type Antibody Screen Crossmatch See Detail BBK History Checked Laboratory Results - last 24 hr 01/01/18 01/03/18 01/04/18 07:45 16:00 07:49 WBC RBC Hgb Hct MCV MCH MCHC RDW Plt Count MPV Gran % Lymph % (Auto) [place] % (Auto) Eos % (Auto) Baso % (Auto) Gran # Lymph # (Auto) [place] # (Auto) Eos # (Auto) Baso # (Auto) PT INR APTT Sodium Potassium Chloride Carbon Dioxide Anion Gap BUN Creatinine Est GFR ( Amer) Est GFR (Non-Af Amer) POC Glucose (mg/dL) 128 H Random Glucose Calcium Phosphorus Magnesium Total Bilirubin AST ALT Alkaline Phosphatase Lactate Dehydrogenase Total Creatine Kinase Troponin I Total Protein Albumin Globulin Albumin/Globulin Ratio Blood Type A NEGATIVE Antibody Screen Negative Crossmatch See Detail See Detail BBK History Checked Patient has bt 01/04/18 01/04/18 01/04/18 11:27 16:29 16:36 WBC RBC Hgb Hct MCV MCH MCHC RDW Plt Count MPV Gran % Lymph % (Auto) [place] % (Auto) Eos % (Auto) Baso % (Auto) Gran # Lymph # (Auto) [place] # (Auto) Eos # (Auto) Baso # (Auto) PT INR APTT Sodium Potassium Chloride Carbon Dioxide Anion Gap BUN Creatinine Est GFR ( Amer) Est GFR (Non-Af Amer) POC Glucose (mg/dL) 128 H 153 H Random Glucose Calcium Phosphorus Magnesium Total Bilirubin AST ALT Alkaline Phosphatase Lactate Dehydrogenase Total Creatine Kinase Troponin I 4.69 H* D Total Protein Albumin Globulin Albumin/Globulin Ratio Blood Type Antibody Screen Crossmatch BBK History Checked 01/04/18 01/04/18 01/04/18 17:20 21:55 23:25 WBC RBC Hgb Hct MCV MCH MCHC RDW Plt Count MPV Gran % Lymph % (Auto) [place] % (Auto) Eos % (Auto) Baso % (Auto) Gran # Lymph # (Auto) [place] # (Auto) Eos # (Auto) Baso # (Auto) PT INR APTT 97.8 H Sodium Potassium Chloride Carbon Dioxide Anion Gap BUN Creatinine Est GFR ( Amer) Est GFR (Non-Af Amer) POC Glucose (mg/dL) 98 Random Glucose Calcium Phosphorus Magnesium Total Bilirubin AST ALT Alkaline Phosphatase Lactate Dehydrogenase Total Creatine Kinase Troponin I 4.32 H* Total Protein Albumin Globulin Albumin/Globulin Ratio Blood Type Antibody Screen Crossmatch BBK History Checked 01/05/18 01/05/18 01/05/18 01:00 06:00 06:00 WBC 6.7 D RBC 3.09 L Hgb 9.1 L Hct 27.8 L MCV 90.0 MCH 29.4 MCHC 32.7 RDW 15.2 H Plt Count 144 MPV 10.5 Gran % 74.2 H Lymph % (Auto) 16.2 L [place] % (Auto) 6.0 Eos % (Auto) 3.0 Baso % (Auto) 0.6 Gran # 4.98 Lymph # (Auto) 1.1 L [place] # (Auto) 0.4 Eos # (Auto) 0.2 Baso # (Auto) 0.04 PT 17.3 H INR 1.49 APTT 74.6 H > 220.0 H* Sodium Potassium Chloride Carbon Dioxide Anion Gap BUN Creatinine Est GFR ( Amer) Est GFR (Non-Af Amer) POC Glucose (mg/dL) Random Glucose Calcium Phosphorus Magnesium Total Bilirubin AST ALT Alkaline Phosphatase Lactate Dehydrogenase Total Creatine Kinase Troponin I Total Protein Albumin Globulin Albumin/Globulin Ratio Blood Type Antibody Screen Crossmatch BBK History Checked 01/05/18 01/05/18 01/05/18 06:00 07:30 07:30 WBC RBC Hgb Hct MCV MCH MCHC RDW Plt Count MPV Gran % Lymph % (Auto) [place] % (Auto) Eos % (Auto) Baso % (Auto) Gran # Lymph # (Auto) [place] # (Auto) Eos # (Auto) Baso # (Auto) PT 12.8 H INR 1.11 APTT 66.6 H Sodium 139 Potassium 3.4 L Chloride 107 Carbon Dioxide 27 Anion Gap 8 L BUN 11 Creatinine 0.8 Est GFR ( Amer) > 60 Est GFR (Non-Af Amer) > 60 POC Glucose (mg/dL) Random Glucose 128 H Calcium 7.8 L Phosphorus 1.6 L Magnesium 2.1 Total Bilirubin 3.5 H AST 92 H D ALT 86 H Alkaline Phosphatase 98 Lactate Dehydrogenase 809 H Total Creatine Kinase 101 Troponin I 3.89 H* Total Protein 5.5 L Albumin 2.6 L Globulin 2.9 Albumin/Globulin Ratio 0.9 L Blood Type Antibody Screen Crossmatch BBK History Checked 01/05/18 07:31 WBC RBC Hgb Hct MCV MCH MCHC RDW Plt Count MPV Gran % Lymph % (Auto) [place] % (Auto) Eos % (Auto) Baso % (Auto) Gran # Lymph # (Auto) [place] # (Auto) Eos # (Auto) Baso # (Auto) PT INR APTT Sodium Potassium Chloride Carbon Dioxide Anion Gap BUN Creatinine Est GFR ( Amer) Est GFR (Non-Af Amer) POC Glucose (mg/dL) 118 H Random Glucose Calcium Phosphorus Magnesium Total Bilirubin AST ALT Alkaline Phosphatase Lactate Dehydrogenase Total Creatine Kinase Troponin I Total Protein Albumin Globulin Albumin/Globulin Ratio Blood Type Antibody Screen Crossmatch BBK History Checked Critical Care Progress Note - Nutrition Nutrition: Nutrition Category Date Time Status Liquid Diet [DIET] Diets 01/04/18 Lunch Ordered Assessment/Plan - Assessment and Plan (Free Text) Plan: Patient seen and examined on rounds with resident, agree with note with following additions/exceptions: Patient is 77yo male with PMhx mantle cell lymphoma stage IV, Lung CA s/p wedge resection, CAD with stents, DM, HTN, COPD, perforated sigmoid diverticulitis s/p Nishant procedure, s/p colostomy reversa, with respiratory failure, which has resolved, extubated, doing well on 2LNC, awake, alert in NAD. Surgery, GI, Cardiology following Lab,s imaging, chart reviewed Troponin downtrending NO CP, SOB HH 9.1 Respiratory failure, resol mira Hx Lymphoma Hx of Lung Ca CAD DM HTN COPD Leukocytosis s/p colostomy reversal Elevated Troponin, NSTEMI Anemia Recommend: - cont with supp o2, goal sat 90%, duonebs PRN - follow up ID, abx as per ID - BP control - IVF hydration - Nclear liquid diet - Pain control - monitor HH - Heparin drip, monitor PTT - ASA, Plavix as per cardiology - Cardiac cath on Sunday01/07/18 - follow up heme onc - follow up surgery - rest of post op mgmt as per surgery - GI ppx - DVT ppx, Heparin drip - Monitor in MICU Critical care time 30 minutes
--- NOTE | 2018-01-05 10:53 | CT ---
Date of service: 01/04/2018 PROCEDURE: CT Abdomen and Pelvis without intravenous contrast HISTORY: R/O retroperitoneal hemorrhage COMPARISON: None. TECHNIQUE: Without contrast.. Contrast dose: Radiation dose: Total exam DLP = 974.57 mGy-cm. This CT exam was performed using one or more of the following dose reduction techniques: Automated exposure control, adjustment of the mA and/or kV according to patient size, and/or use of iterative reconstruction technique. FINDINGS: LOWER THORAX: Small left effusion. Atelectasis at both lung bases LIVER: Unremarkable. No gross lesion or ductal dilatation. GALLBLADDER AND BILE DUCTS: Unremarkable. PANCREAS: Unremarkable. No gross lesion or ductal dilatation. SPLEEN: Unremarkable. ADRENALS: Unremarkable. No mass. KIDNEYS AND URETERS: Unremarkable. No hydronephrosis. No solid mass. VASCULATURE: Unremarkable. No aortic aneurysm. No aortic atherosclerotic calcification or mural plaque present. BOWEL: There is an anastomosis in the distal sigmoid. There is soft tissue edema and air at the colostomy site left side. There is a drainage catheter the traverses the pelvis and terminates in the left mid abdomen. APPENDIX: Not visualized PERITONEUM: Unremarkable. No free fluid. No free air. LYMPH NODES: Unremarkable. No enlarged lymph nodes. BLADDER: Unremarkable. REPRODUCTIVE: Unremarkable. BONES: No acute fracture. OTHER FINDINGS: The report concurs with the preliminary [facility] report IMPRESSION: Subcutaneous postoperative changes left side of abdomen. No acute intra-abdominal findings.
--- NOTE | 2018-01-05 11:28 | PN ---
DATE: 01/05/2018 SUBJECTIVE: The patient is seen in the ICU 128, bed 6. No fevers, no chills. He is awake. He is alert. He remains extubated. He is comfortable. PHYSICAL EXAMINATION: VITAL SIGNS: Temperature is 98, blood pressure is 130/60, respiratory rate of 18. HEENT: Examination of HEENT is unremarkable. NECK: Supple. LUNGS: Have decreased breath sounds. HEART: Normal S1, S2. ABDOMEN: Soft, nontender. LABORATORY EXAMINATION: Reveals a white count of 6.7, hemoglobin of 9, platelets of 144. Chemistries are BUN of 11, creatinine of 0.8 and troponin is elevated. Urinalysis is noted and microbiology reveals the blood cultures are no growth. Urine cultures, are no growth. Nares are negative. Sputum cultures, normal tammy and the patient's procalcitonin is 0.14. Review of orders reveals the patient to be on no antibiotics. ASSESSMENT AND PLAN: A 77-year-old male with multiple admissions, mantle cell lymphoma, lung cancer, chemotherapy, coronary artery disease, benign prostatic hypertrophy, bilateral healthcare-associated pneumonia, asthma, bronchitis, urinary tract infection status post surgery, reversal of colostomy, respiratory failure, intubated on a ventilator with systemic inflammatory response syndrome, now extubated, comfortable with cultures negative, normal white count, normal procalcitonin and off of antibiotics. The patient had a CAT scan of the abdomen and pelvis yesterday and the results are pending. Patient is status post colostomy reversal post procedure day number [address] Duffy's note is reviewed. Dr. Harry's note is reviewed from yesterday. Dr. Méndez's note from yesterday is reviewed. The patient is at risk for developing nosocomial infections. We will follow closely. Marvin Callahan MD
[2018-01-05] MEDS ORDERED: Potassium Phosphate 20 MMOLE in Sodium Chloride 0.9% 250 ML IV ONE (13:32)
[2018-01-05] MEDS: Levalbuterol 0.63 MG/3 ML Inhal Soln UD IH SCH ×2 (13:45→19:43)
[2018-01-05] MEDS: RAPAFLO 8 MG PO SCH (17:14)
[2018-01-05] MEDS: Heparin25000 units/250ml 1/2NS 25,000 UNITS/250 ML BAG IV SCH (17:17)
--- NOTE | 2018-01-06 01:03 | PN ---
DATE: 01/05/2018 PULMONARY CRITICAL CARE PROGRESS NOTE REFERRING PHYSICIAN: Ted Santoyo MD SUBJECTIVE: He is out of bed to chair, trying to have some lunch. Night was unremarkable. Cough is better. Decreased pulmonary secretion. Still has abdominal discomfort, passing rectal gas. Had a small bowel movement yesterday. No leg pain or leg swelling. OBJECTIVE: GENERAL: In no acute distress. VITAL SIGNS: Temp is 98, heart rate is 87, respiratory rate is 20, blood pressure 137/86, pulse ox 97% on nasal cannula. HEENT: Moist mucous membrane. No ulcer or thrush noted. NECK: Supple. No JVD. LUNGS: Have fair airflow with rhonchi. HEART: S1, S2. ABDOMEN: Positive bowel sounds. Mild distention. Incision site looks okay. EXTREMITIES: There is no edema. NEUROLOGIC: Awake, alert, follows simple commands. MEDICATIONS: He is on Dilaudid 0.5 mg every 3 hours p.r.n., oxybutynin 5 mg at bedtime, Ecotrin 81 mg daily, he is on IV heparin, Lasix 20 mg daily, Lipitor 20 mg daily, metoprolol tartrate 12.5 mg at night and 25 mg in the morning, Plavix 75 mg daily, Protonix 40 mg daily, Ranexa 500 mg twice a day, Rapaflo was given, Singulair 10 mg daily, IV fluid normal saline 50 mL per hour, Tylenol p.r.n., Xopenex inhaled three times a day, Zetia 10 mg daily, Zofran p.r.n. basis. LABORATORY DATA: Shows hemoglobin 9.1, hematocrit 27.8, WBC 6.7, platelet is 144. PTT is 67. Sodium 139, potassium 3.4, chloride 107, bicarbonate 27, BUN 11, creatinine 0.8, glucose 128, calcium 7.8, phosphorus 1.6, magnesium 2.1. Ferritin is not available. Total bili 3.5, AST 92, ALT 86, albumin is 2.6, alk phos is 98. Troponin is still positive though trending down, is 3.89. Has abdomen and pelvic CT done today which shows subcutaneous postoperative changes left side of the abdomen. No acute intraabdominal finding. There is small left effusion in both bases, atelectasis. There is soft tissue edema and air at the colostomy site, left side. There is a drainage catheter. IMPRESSION AND PLAN: Status post laparotomy with reversal of colostomy; history of visceral perforation, had a colostomy before; respiratory failure, presently liberated from the ventilator; had a leakage of cardiac enzyme, non-Q-wave myocardial infarction; history of lung cancer, has resection in the remote past; mantle cell lymphoma involving the lung; coronary artery disease, history of coronary stent; hypertension; diabetes; chronic lung disease. Pulmonary point of view, doing well. Continue bronchodilator, incentive spirometer, gastric prophylaxis, deep vein thrombosis prophylaxis. Suspected sleep apnea syndrome, careful with sedation. Physical therapy. Follow up CBC, CMP, calcium, magnesium, phosphorus. Replace phosphorus. Thank you and we will follow with you. Thanh Duffy MD
[2018-01-06] MEDS: Insulin Reg-LOW-Coverage SC SCH ×3 (04:30→16:27)
[2018-01-06 06:08] LABS: BASO # 0.02 K/mm3 (0.0-2.0); BASO % 0.4 % (0.0-3.0); EOS # 0.2 (0.0-0.7); GRAN # 3.93 (1.4-6.5); HEMOGLOBIN 10.4 g/dL (14.0-18.0); LYMPH # 0.9 (1.2-3.4); LYMPH % 16.6 % (22.0-35.0); MEAN CELL VOLUME 87.8 fl (80.0-105.0); MEAN CORPUSCULAR HEMOGLOBIN 28.8 pg (25.0-35.0); MEAN CORPUSCULAR HGB CONC 32.8 g/dl (31.0-37.0); MEAN PLATELET VOLUME 9.4 fl (7.0-11.0); MONO # 0.4 (0.1-0.6); RBC 3.61 10^6/uL (3.5-6.1); RED CELL DISTRIBUTION WIDTH 15.4 % (11.5-14.5); WHITE BLOOD COUNT 5.5 10^3/uL (4.5-11.0)
[2018-01-06 06:19] LABS: INR 1.13
[2018-01-06 06:30] LABS: ALB/GLOB RATIO 0.9 (1.1-1.8); ALBUMIN 2.7 g/dL (3.0-4.8); ALT/SGPT 67 U/L (7-56); AST/SGOT 46 U/L (17-59); BLOOD UREA NITROGEN 10 mg/dL (7-21); CALCIUM 7.7 mg/dL (8.4-10.5); GFR NON-AFRICAN AMERICAN > 60
[2018-01-06] MEDS: Levalbuterol 0.63 MG/3 ML Inhal Soln UD IH SCH ×3 (07:24→21:01)
--- NOTE | 2018-01-06 09:03 | CP.PCM.PN ---
Subjective - Date & Time of Evaluation Date of Evaluation: 01/06/18 Time of Evaluation: 08:59 - Subjective Subjective: General Surgery Progress Note for Dr. Pabon 77M, seen and evaluated at bedside this morning. No acute events overnight. Patient states he is hungry and tolerating clears. Minimal ambulation but is getting out of bed to chair. States he has some abdominal pain that is well controlled. Minimal pain at incision sites. Denies f/c, n/v/d, SOB, CP, or urinary symptoms. Objective - Vital Signs/Intake and Output Vital Signs (last 24 hours): Temp Pulse Resp BP Pulse Ox 98.3 F 68 23 128/71 99 01/06/18 06:00 01/06/18 07:23 01/06/18 07:22 01/06/18 07:22 01/06/18 07:22 - Medications Medications: Current Medications Acetaminophen (Tylenol 325mg Tab) 650 mg PO Q6H PRN PRN Reason: Fever >100.4 F Aspirin (Ecotrin) 81 mg PO DAILY [facility] Last Admin: 01/05/18 09:24 Dose: 81 mg Atorvastatin Calcium (Lipitor) 20 mg PO QPM [facility] Last Admin: 01/05/18 17:13 Dose: 20 mg Clopidogrel Bisulfate (Plavix) 75 mg PO DAILY [facility] Last Admin: 01/05/18 09:25 Dose: 75 mg Ezetimibe (Zetia) 10 mg PO DAILY [facility] Last Admin: 01/05/18 12:08 Dose: 10 mg Furosemide (Lasix) 20 mg PO DAILY [facility] Last Admin: 01/05/18 12:06 Dose: 20 mg Hydromorphone HCl (Dilaudid) 0.5 mg IVP Q3 PRN PRN Reason: Pain, severe (8-10) Last Admin: 01/05/18 18:22 Dose: 0.5 mg Sodium Chloride (Sodium Chloride 0.9%) 1,000 mls @ 50 mls/hr IV .Q20H [facility] Last Admin: 01/04/18 04:30 Dose: 50 mls/hr Heparin Sodium/Sodium Chloride (Heparin 64281 Units/250ml 1/2 Normal Saline) 25,000 units in 250 mls @ 8.274 mls/hr IV .Q24H [facility]; Protocol Last Admin: 01/05/18 17:17 Dose: 9 units/kg/hr, 6.205 mls/hr Insulin Human Regular (Humulin R Low) 0 units SC Q6H [facility]; Protocol Last Admin: 01/06/18 04:30 Dose: Not Given Levalbuterol HCl (Xopenex) 0.63 mg IH TIDRESP [facility] Last Admin: 01/06/18 07:24 Dose: 0.63 mg Metoprolol Tartrate (Lopressor) 25 mg PO DAILY [facility] Last Admin: 01/05/18 09:25 Dose: 25 mg Metoprolol Tartrate (Lopressor) 12.5 mg PO QPM [facility] Last Admin: 01/05/18 17:13 Dose: 12.5 mg Montelukast Sodium (Singulair) 10 mg PO QPM [facility] Last Admin: 01/05/18 17:13 Dose: 10 mg Non-Formulary Medication (Rapaflo) 8 mg PO QPM [facility] Last Admin: 01/05/18 17:14 Dose: 8 mg Non-Formulary Medication (Ranexa) 500 mg PO BID [facility] Last Admin: 01/05/18 17:14 Dose: 500 mg Ondansetron HCl (Zofran Inj) 4 mg IVP Q4H PRN PRN Reason: Nausea/Vomiting Oxybutynin Chloride (Ditropan Tab) 5 mg PO HS [facility] Last Admin: 01/05/18 21:39 Dose: 5 mg Pantoprazole Sodium (Protonix Inj) 40 mg IVP DAILY [facility] Last Admin: 01/05/18 09:24 Dose: 40 mg - Labs Labs: 01/06/18 05:45 01/06/18 05:45 PT 13.0 SECONDS (9.4-12.5) H 01/06/18 05:45 INR 1.13 01/06/18 05:45 APTT 67.0 Seconds (25.1-36.5) H 01/06/18 05:45 - Constitutional Appears: Well, Non-toxic, No Acute Distress - Head Exam Head Exam: ATRAUMATIC, NORMAL INSPECTION, NORMOCEPHALIC - Eye Exam Eye Exam: EOMI - ENT Exam ENT Exam: Mucous Membranes Moist - Cardiovascular Exam Cardiovascular Exam: REGULAR RHYTHM - GI/Abdominal Exam GI & Abdominal Exam: Distended, Tenderness, Normal Bowel Sounds - Neurological Exam Neurological Exam: Alert, Awake - Skin Additional comments: midline and left lateral incision clean, dry, intact 1 inch of packing removed Assessment and Plan - Assessment and Plan (Free Text) Assessment: 77 y/o male s/p colostomy reversal POD5 Plan: Full liquid diet today Dressing changes and local wound care AE hose F/u AM labs and Trop level OOTC Encourage ambulation and IS use Further recommendations per Dr. Cm Nielson PGY1
[2018-01-06] MEDS: RANEXA 500 MG PO SCH ×2 (09:38→17:44)
[2018-01-06] MEDS: Sodium Chloride 0.9% 1,000 ML IV SCH (10:15)
--- NOTE | 2018-01-06 10:30 | CP.CCUPN ---
<Lawson Luu - Last Filed: 01/06/18 10:51> CCU Subjective - Physician Review Subjective (Free Text): 01/06/18 10:25 Patient seen and examined at bedside in no acute distress. Patient states he slept well overnight and has no complaints. Denies fevers, chills, chest pain, abdominal pain, nausea, vomiting, cough. Admits to having two bowel movements this morning. CCU Objective - Vital Signs / Intake & Output Vital Signs (Last 4 hours): Vital Signs Temp Pulse Resp BP Pulse Ox 01/06/18 10:19 77 26 H 01/06/18 10:00 76 22 120/54 L 100 01/06/18 09:38 74 120/54 L 01/06/18 09:00 75 22 01/06/18 08:00 997.6 F H 70 20 100 01/06/18 07:23 68 01/06/18 07:22 60 23 128/71 99 01/06/18 07:00 77 100 Intake and Output (Last 8hrs): Intake & Output 01/05/18 01/06/18 01/06/18 23:59 06:59 14:59 Intake Total 680 Output Total 70 Balance 610 Weight Intake: IV Heparin Drip Oral 680 Output: Drainage 70 Right Abdomen 70 Urine Urine, Voided Other: # Bowel Movements 2 - Physical Exam Head: Positive for: Atraumatic, Normocephalic Pupils: Positive for: PERRL Extroacular Muscles: Positive for: EOMI Conjunctiva: Positive for: Normal Mouth: Positive for: Dry Neck: Positive for: Normal Range of Motion Respiratory/Chest: Positive for: Clear to Auscultation, Good Air Exchange. Negative for: Respiratory Distress, Accessory Muscle Use Cardiovascular: Positive for: Regular Rate and Rhythm, Normal S1, S2. Negative for: Murmurs Abdomen: Positive for: Tenderness, Other (abdominal dressing place. KERI draining serosanguinous fluid) Back: Positive for: Normal Inspection Upper Extremity: Positive for: Normal Inspection. Negative for: Cyanosis, Edema Lower Extremity: Positive for: Normal Inspection. Negative for: Edema Neurological: Positive for: GCS=15, CN II-XII Intact, Speech Normal Skin: Positive for: Warm, Dry, Normal Color. Negative for: Rashes Psychiatric: Positive for: Alert, Oriented x 3, Normal Insight, Normal Concentration - Medications Active Medications: Active Medications Generic Name Dose Route Start Last Admin Trade Name Freq PRN Reason Stop Dose Admin Acetaminophen 650 mg 12/30/17 17:54 Tylenol 325mg Tab PO Q6H PRN Fever >100.4 F Aspirin 81 mg 01/04/18 10:00 01/06/18 09:37 Ecotrin PO 81 mg DAILY ALEX Administration Atorvastatin Calcium 20 mg 01/05/18 18:00 01/05/18 17:13 Lipitor PO 20 mg QPM ALEX Administration Clopidogrel Bisulfate 75 mg 01/05/18 10:00 01/06/18 09:37 Plavix PO 75 mg DAILY ALEX Administration Ezetimibe 10 mg 01/05/18 12:00 01/06/18 09:38 Zetia PO 10 mg DAILY ALEX Administration Furosemide 20 mg 01/05/18 12:00 01/06/18 09:38 Lasix PO 20 mg DAILY ALEX Administration Hydromorphone HCl 0.5 mg 01/02/18 17:13 01/05/18 18:22 Dilaudid IVP 0.5 mg Q3 PRN Administration Pain, severe (8-10) Sodium Chloride 1,000 mls @ 50 mls/hr 01/03/18 08:00 01/06/18 10:15 Sodium Chloride 0.9% IV 50 mls/hr .Q20H ALEX Administration Heparin Sodium/Sodium Chloride 25,000 units in 250 mls @ 8.274 mls/hr 01/04/18 09:30 01/05/18 17:17 Heparin 41576 Units/250ml 1/2 Normal Saline IV 9 units/kg/hr .Q24H ALEX 6.205 mls/hr Administration Protocol 12 UNITS/KG/HR Insulin Human Regular 0 units 01/03/18 16:15 01/06/18 04:30 Humulin R Low SC Not Given Q6H ALEX Protocol Levalbuterol HCl 0.63 mg 01/05/18 14:00 01/06/18 07:24 Xopenex IH 0.63 mg TIDRESP ALEX Administration Metoprolol Tartrate 25 mg 12/31/17 10:00 01/06/18 09:38 Lopressor PO 25 mg DAILY ALEX Administration Metoprolol Tartrate 12.5 mg 12/30/17 18:00 01/05/18 17:13 Lopressor PO 12.5 mg QPM ALEX Administration Montelukast Sodium 10 mg 12/30/17 18:00 01/05/18 17:13 Singulair PO 10 mg QPM ALEX Administration Non-Formulary Medication 8 mg 12/30/17 19:26 01/05/18 17:14 Rapaflo PO 8 mg QPM ALEX Administration Non-Formulary Medication 500 mg 12/30/17 19:28 01/06/18 09:38 Ranexa PO 500 mg BID ALEX Administration Ondansetron HCl 4 mg 01/01/18 13:58 Zofran Inj IVP Q4H PRN Nausea/Vomiting Oxybutynin Chloride 5 mg 12/30/17 22:00 01/05/18 21:39 Ditropan Tab PO 5 mg HS ALEX Administration Pantoprazole Sodium 40 mg 01/03/18 10:00 01/06/18 09:38 Protonix Inj IVP 40 mg DAILY ALEX Administration - Patient Studies Lab Studies: Microbiology Studies 01/01/18 19:47 Blood Culture - Preliminary Blood NO GROWTH AFTER 4 DAYS 01/01/18 19:47 Blood Culture - Preliminary Blood NO GROWTH AFTER 4 DAYS Lab Studies 01/06/18 01/06/18 01/06/18 Range/Units 05:45 05:45 05:45 WBC 5.5 (4.5-11.0) 10^3/uL RBC 3.61 (3.5-6.1) 10^6/uL Hgb 10.4 L (14.0-18.0) g/dL Hct 31.7 L (42.0-52.0) % MCV 87.8 (80.0-105.0) fl MCH 28.8 (25.0-35.0) pg MCHC 32.8 (31.0-37.0) g/dl RDW 15.4 H (11.5-14.5) % Plt Count 131 (120.0-450.0) 10^3/uL MPV 9.4 (7.0-11.0) fl Gran % 71.0 H (50.0-68.0) % Lymph % (Auto) 16.6 L (22.0-35.0) % [place] % (Auto) 8.0 H (1.0-6.0) % Eos % (Auto) 4.0 (1.5-5.0) % Baso % (Auto) 0.4 (0.0-3.0) % Gran # 3.93 (1.4-6.5) Lymph # (Auto) 0.9 L (1.2-3.4) [place] # (Auto) 0.4 (0.1-0.6) Eos # (Auto) 0.2 (0.0-0.7) Baso # (Auto) 0.02 (0.0-2.0) K/mm3 PT 13.0 H (9.4-12.5) SECONDS INR 1.13 APTT 67.0 H (25.1-36.5) Seconds Sodium 137 (132-148) mmol/L Potassium 3.7 (3.6-5.0) mmol/L Chloride 103 (98-107) mmol/L Carbon Dioxide 28 (21-33) mmol/L Anion Gap 10 (10-20) BUN 10 (7-21) mg/dL Creatinine 0.8 (0.8-1.5) mg/dl Est GFR ( Amer) > 60 Est GFR (Non-Af Amer) > 60 POC Glucose (mg/dL) (65-110) mg/dL Random Glucose 124 H (70-110) mg/dL Calcium 7.7 L (8.4-10.5) mg/dL Phosphorus 2.5 (2.5-4.5) mg/dL Magnesium 1.9 (1.7-2.2) mg/dL Total Bilirubin 2.8 H (0.2-1.3) mg/dL AST 46 (17-59) U/L ALT 67 H (7-56) U/L Alkaline Phosphatase 109 (38-126) U/L Troponin I ng/mL Total Protein 5.6 L (5.8-8.3) g/dL Albumin 2.7 L (3.0-4.8) g/dL Globulin 2.9 gm/dL Albumin/Globulin Ratio 0.9 L (1.1-1.8) Crossmatch 01/06/18 01/05/18 01/05/18 Range/Units 05:35 22:13 17:00 WBC (4.5-11.0) 10^3/uL RBC (3.5-6.1) 10^6/uL Hgb (14.0-18.0) g/dL Hct (42.0-52.0) % MCV (80.0-105.0) fl MCH (25.0-35.0) pg MCHC (31.0-37.0) g/dl RDW (11.5-14.5) % Plt Count (120.0-450.0) 10^3/uL MPV (7.0-11.0) fl Gran % (50.0-68.0) % Lymph % (Auto) (22.0-35.0) % [place] % (Auto) (1.0-6.0) % Eos % (Auto) (1.5-5.0) % Baso % (Auto) (0.0-3.0) % Gran # (1.4-6.5) Lymph # (Auto) (1.2-3.4) [place] # (Auto) (0.1-0.6) Eos # (Auto) (0.0-0.7) Baso # (Auto) (0.0-2.0) K/mm3 PT (9.4-12.5) SECONDS INR APTT 66.6 H (25.1-36.5) Seconds Sodium (132-148) mmol/L Potassium (3.6-5.0) mmol/L Chloride (98-107) mmol/L Carbon Dioxide (21-33) mmol/L Anion Gap (10-20) BUN (7-21) mg/dL Creatinine (0.8-1.5) mg/dl Est GFR ( Amer) Est GFR (Non-Af Amer) POC Glucose (mg/dL) 112 H (65-110) mg/dL Random Glucose (70-110) mg/dL Calcium (8.4-10.5) mg/dL Phosphorus (2.5-4.5) mg/dL Magnesium (1.7-2.2) mg/dL Total Bilirubin (0.2-1.3) mg/dL AST (17-59) U/L ALT (7-56) U/L Alkaline Phosphatase (38-126) U/L Troponin I 2.42 H* D ng/mL Total Protein (5.8-8.3) g/dL Albumin (3.0-4.8) g/dL Globulin gm/dL Albumin/Globulin Ratio (1.1-1.8) Crossmatch 01/05/18 01/03/18 Range/Units 16:26 16:00 WBC (4.5-11.0) 10^3/uL RBC (3.5-6.1) 10^6/uL Hgb (14.0-18.0) g/dL Hct (42.0-52.0) % MCV (80.0-105.0) fl MCH (25.0-35.0) pg MCHC (31.0-37.0) g/dl RDW (11.5-14.5) % Plt Count (120.0-450.0) 10^3/uL MPV (7.0-11.0) fl Gran % (50.0-68.0) % Lymph % (Auto) (22.0-35.0) % [place] % (Auto) (1.0-6.0) % Eos % (Auto) (1.5-5.0) % Baso % (Auto) (0.0-3.0) % Gran # (1.4-6.5) Lymph # (Auto) (1.2-3.4) [place] # (Auto) (0.1-0.6) Eos # (Auto) (0.0-0.7) Baso # (Auto) (0.0-2.0) K/mm3 PT (9.4-12.5) SECONDS INR APTT (25.1-36.5) Seconds Sodium (132-148) mmol/L Potassium (3.6-5.0) mmol/L Chloride (98-107) mmol/L Carbon Dioxide (21-33) mmol/L Anion Gap (10-20) BUN (7-21) mg/dL Creatinine (0.8-1.5) mg/dl Est GFR ( Amer) Est GFR (Non-Af Amer) POC Glucose (mg/dL) 134 H (65-110) mg/dL Random Glucose (70-110) mg/dL Calcium (8.4-10.5) mg/dL Phosphorus (2.5-4.5) mg/dL Magnesium (1.7-2.2) mg/dL Total Bilirubin (0.2-1.3) mg/dL AST (17-59) U/L ALT (7-56) U/L Alkaline Phosphatase (38-126) U/L Troponin I ng/mL Total Protein (5.8-8.3) g/dL Albumin (3.0-4.8) g/dL Globulin gm/dL Albumin/Globulin Ratio (1.1-1.8) Crossmatch See Detail Laboratory Results - last 24 hr 01/03/18 01/05/18 01/05/18 16:00 16:26 17:00 WBC RBC Hgb Hct MCV MCH MCHC RDW Plt Count MPV Gran % Lymph % (Auto) [place] % (Auto) Eos % (Auto) Baso % (Auto) Gran # Lymph # (Auto) [place] # (Auto) Eos # (Auto) Baso # (Auto) PT INR APTT 66.6 H Sodium Potassium Chloride Carbon Dioxide Anion Gap BUN Creatinine Est GFR ( Amer) Est GFR (Non-Af Amer) POC Glucose (mg/dL) 134 H Random Glucose Calcium Phosphorus Magnesium Total Bilirubin AST ALT Alkaline Phosphatase Troponin I Total Protein Albumin Globulin Albumin/Globulin Ratio Crossmatch See Detail 01/05/18 01/06/18 01/06/18 22:13 05:35 05:45 WBC 5.5 RBC 3.61 Hgb 10.4 L Hct 31.7 L MCV 87.8 MCH 28.8 MCHC 32.8 RDW 15.4 H Plt Count 131 MPV 9.4 Gran % 71.0 H Lymph % (Auto) 16.6 L [place] % (Auto) 8.0 H Eos % (Auto) 4.0 Baso % (Auto) 0.4 Gran # 3.93 Lymph # (Auto) 0.9 L [place] # (Auto) 0.4 Eos # (Auto) 0.2 Baso # (Auto) 0.02 PT INR APTT Sodium Potassium Chloride Carbon Dioxide Anion Gap BUN Creatinine Est GFR ( Amer) Est GFR (Non-Af Amer) POC Glucose (mg/dL) 112 H Random Glucose Calcium Phosphorus Magnesium Total Bilirubin AST ALT Alkaline Phosphatase Troponin I 2.42 H* D Total Protein Albumin Globulin Albumin/Globulin Ratio Crossmatch 01/06/18 01/06/18 05:45 05:45 WBC RBC Hgb Hct MCV MCH MCHC RDW Plt Count MPV Gran % Lymph % (Auto) [place] % (Auto) Eos % (Auto) Baso % (Auto) Gran # Lymph # (Auto) [place] # (Auto) Eos # (Auto) Baso # (Auto) PT 13.0 H INR 1.13 APTT 67.0 H Sodium 137 Potassium 3.7 Chloride 103 Carbon Dioxide 28 Anion Gap 10 BUN 10 Creatinine 0.8 Est GFR ( Amer) > 60 Est GFR (Non-Af Amer) > 60 POC Glucose (mg/dL) Random Glucose 124 H Calcium 7.7 L Phosphorus 2.5 Magnesium 1.9 Total Bilirubin 2.8 H AST 46 ALT 67 H Alkaline Phosphatase 109 Troponin I Total Protein 5.6 L Albumin 2.7 L Globulin 2.9 Albumin/Globulin Ratio 0.9 L Crossmatch Fingerstick Blood Sugar Results: 125 Review of Systems - Constitutional Constitutional: absent: Fever, Chills - Cardiovascular Cardiovascular: absent: Chest Pain, Dyspnea - Respiratory Respiratory: absent: Cough, Dyspnea - Gastrointestinal Gastrointestinal: absent: Abdominal Pain, Diarrhea - Genitourinary Genitourinary: absent: Dysuria - Neurological Neurological: absent: Dizziness - Endocrine Endocrine: absent: Fatigue Critical Care Progress Note - Nutrition Nutrition: Nutrition Category Date Time Status Liquid Diet [DIET] Diets 01/04/18 Lunch Ordered Assessment/Plan - Assessment and Plan (Free Text) Assessment: 77 y/o M with PMHx of perforated diverticulitis s/p nishant procedure, s/p colo stomy reversal, stage 4 mantle cell lymphoma, lung ca s/p wedge resection, cad s/p stents x 4, dm, htn, copd admitted to ICU for post-operative respiratory failure s/p extubation. Rapid response was called in PACU as patient was unresponsive and not breathing. He was found to be in hypercapnic respiratory acidosis. He was subsequently sedated, intubated and placed on ventilator. Patient is now s/p extubation and currently being monitored monitored in ICU on minimal O2 supplementation. Plan: Neuro: Alert, awake & oriented x 3 No FND Extubated on 3L NC Cardio: Normotensive Not on any vasopressors Elevated troponins; aspirin, plavix, heparin started Echo revealed no wall motion abnormalities continue metoprolol 25 mg Pt to undergo cardiac cath this week maintain map >65 HR controlled Pulmonary: Extubated 01/02 Encourage early mobilization Pulmonary toilet Chest PT Incentive spirometry OOB to chair physical therapy hob elevated to 35 degrees oral hygiene SaO2 sat >90% GI: s/p colostomy reversal abdominal dressing in place KERI draining serosanguinous fluid tolerating clear liquid diet followed by surgery team, appreciate recs : Monitor I/Os closely replete electrolytes as needed maintain euvolemia Heme: Hemoglobin 10 Recommend maintaining hemoglobin > 7-9 (TRICC trial) DVT/GI Ppx: Hep drip/protonix <Jose Guadalupe Carroll - Last Filed: 01/06/18 11:50> CCU Objective - Vital Signs / Intake & Output Vital Signs (Last 4 hours): Vital Signs Temp Pulse Resp BP Pulse Ox 01/06/18 10:19 77 26 H 01/06/18 10:00 76 22 120/54 L 100 01/06/18 09:38 74 120/54 L 01/06/18 09:00 75 22 01/06/18 08:00 997.6 F H 70 20 100 Intake and Output (Last 8hrs): Intake & Output 01/05/18 01/06/18 01/06/18 23:59 06:59 14:59 Intake Total 680 Output Total 70 Balance 610 Weight Intake: IV Heparin Drip Oral 680 Output: Drainage 70 Right Abdomen 70 Urine Urine, Voided Other: # Bowel Movements 2 - Medications Active Medications: Active Medications Generic Name Dose Route Start Last Admin Trade Name Freq PRN Reason Stop Dose Admin Acetaminophen 650 mg 12/30/17 17:54 Tylenol 325mg Tab PO Q6H PRN Fever >100.4 F Aspirin 81 mg 01/04/18 10:00 01/06/18 09:37 Ecotrin PO 81 mg DAILY ALEX Administration Atorvastatin Calcium 20 mg 01/05/18 18:00 01/05/18 17:13 Lipitor PO 20 mg QPM ALEX Administration Clopidogrel Bisulfate 75 mg 01/05/18 10:00 01/06/18 09:37 Plavix PO 75 mg DAILY ALEX Administration Ezetimibe 10 mg 01/05/18 12:00 01/06/18 09:38 Zetia PO 10 mg DAILY ALEX Administration Furosemide 20 mg 01/05/18 12:00 01/06/18 09:38 Lasix PO 20 mg DAILY ALEX Administration Hydromorphone HCl 0.5 mg 01/02/18 17:13 01/05/18 18:22 Dilaudid IVP 0.5 mg Q3 PRN Administration Pain, severe (8-10) Sodium Chloride 1,000 mls @ 50 mls/hr 01/03/18 08:00 01/06/18 10:15 Sodium Chloride 0.9% IV 50 mls/hr .Q20H ALEX Administration Heparin Sodium/Sodium Chloride 25,000 units in 250 mls @ 8.274 mls/hr 01/04/18 09:30 01/05/18 17:17 Heparin 13309 Units/250ml 1/2 Normal Saline IV 9 units/kg/hr .Q24H ALEX 6.205 mls/hr Administration Protocol 12 UNITS/KG/HR Insulin Human Regular 0 units 01/03/18 16:15 01/06/18 10:24 Humulin R Low SC 1 units Q6H ALEX Administration Protocol Levalbuterol HCl 0.63 mg 01/05/18 14:00 01/06/18 07:24 Xopenex IH 0.63 mg TIDRESP ALEX Administration Metoprolol Tartrate 25 mg 12/31/17 10:00 01/06/18 09:38 Lopressor PO 25 mg DAILY ALEX Administration Metoprolol Tartrate 12.5 mg 12/30/17 18:00 01/05/18 17:13 Lopressor PO 12.5 mg QPM ALEX Administration Montelukast Sodium 10 mg 12/30/17 18:00 01/05/18 17:13 Singulair PO 10 mg QPM ALEX Administration Non-Formulary Medication 8 mg 12/30/17 19:26 01/05/18 17:14 Rapaflo PO 8 mg QPM ALEX Administration Non-Formulary Medication 500 mg 12/30/17 19:28 01/06/18 09:38 Ranexa PO 500 mg BID ALEX Administration Ondansetron HCl 4 mg 01/01/18 13:58 Zofran Inj IVP Q4H PRN Nausea/Vomiting Oxybutynin Chloride 5 mg 12/30/17 22:00 01/05/18 21:39 Ditropan Tab PO 5 mg HS ALEX Administration Pantoprazole Sodium 40 mg 01/03/18 10:00 01/06/18 09:38 Protonix Inj IVP 40 mg DAILY ALEX Administration - Patient Studies Lab Studies: Microbiology Studies 01/01/18 19:47 Blood Culture - Preliminary Blood NO GROWTH AFTER 4 DAYS 01/01/18 19:47 Blood Culture - Preliminary Blood NO GROWTH AFTER 4 DAYS Lab Studies 01/06/18 01/06/18 01/06/18 Range/Units 10:00 05:45 05:45 WBC (4.5-11.0) 10^3/uL RBC (3.5-6.1) 10^6/uL Hgb (14.0-18.0) g/dL Hct (42.0-52.0) % MCV (80.0-105.0) fl MCH (25.0-35.0) pg MCHC (31.0-37.0) g/dl RDW (11.5-14.5) % Plt Count (120.0-450.0) 10^3/uL MPV (7.0-11.0) fl Gran % (50.0-68.0) % Lymph % (Auto) (22.0-35.0) % [place] % (Auto) (1.0-6.0) % Eos % (Auto) (1.5-5.0) % Baso % (Auto) (0.0-3.0) % Gran # (1.4-6.5) Lymph # (Auto) (1.2-3.4) [place] # (Auto) (0.1-0.6) Eos # (Auto) (0.0-0.7) Baso # (Auto) (0.0-2.0) K/mm3 PT 13.0 H (9.4-12.5) SECONDS INR 1.13 APTT 67.0 H (25.1-36.5) Seconds Sodium 137 (132-148) mmol/L Potassium 3.7 (3.6-5.0) mmol/L Chloride 103 (98-107) mmol/L Carbon Dioxide 28 (21-33) mmol/L Anion Gap 10 (10-20) BUN 10 (7-21) mg/dL Creatinine 0.8 (0.8-1.5) mg/dl Est GFR ( Amer) > 60 Est GFR (Non-Af Amer) > 60 POC Glucose (mg/dL) (65-110) mg/dL Random Glucose 124 H (70-110) mg/dL Calcium 7.7 L (8.4-10.5) mg/dL Phosphorus 2.5 (2.5-4.5) mg/dL Magnesium 1.9 (1.7-2.2) mg/dL Total Bilirubin 2.8 H (0.2-1.3) mg/dL AST 46 (17-59) U/L ALT 67 H (7-56) U/L Alkaline Phosphatase 109 (38-126) U/L Troponin I ng/mL Total Protein 5.6 L (5.8-8.3) g/dL Albumin 2.7 L (3.0-4.8) g/dL Globulin 2.9 gm/dL Albumin/Globulin Ratio 0.9 L (1.1-1.8) Stool Occult Blood Negative (NEGATIVE) Crossmatch 01/06/18 01/06/18 01/05/18 Range/Units 05:45 05:35 22:13 WBC 5.5 (4.5-11.0) 10^3/uL RBC 3.61 (3.5-6.1) 10^6/uL Hgb 10.4 L (14.0-18.0) g/dL Hct 31.7 L (42.0-52.0) % MCV 87.8 (80.0-105.0) fl MCH 28.8 (25.0-35.0) pg MCHC 32.8 (31.0-37.0) g/dl RDW 15.4 H (11.5-14.5) % Plt Count 131 (120.0-450.0) 10^3/uL MPV 9.4 (7.0-11.0) fl Gran % 71.0 H (50.0-68.0) % Lymph % (Auto) 16.6 L (22.0-35.0) % [place] % (Auto) 8.0 H (1.0-6.0) % Eos % (Auto) 4.0 (1.5-5.0) % Baso % (Auto) 0.4 (0.0-3.0) % Gran # 3.93 (1.4-6.5) Lymph # (Auto) 0.9 L (1.2-3.4) [place] # (Auto) 0.4 (0.1-0.6) Eos # (Auto) 0.2 (0.0-0.7) Baso # (Auto) 0.02 (0.0-2.0) K/mm3 PT (9.4-12.5) SECONDS INR APTT (25.1-36.5) Seconds Sodium (132-148) mmol/L Potassium (3.6-5.0) mmol/L Chloride (98-107) mmol/L Carbon Dioxide (21-33) mmol/L Anion Gap (10-20) BUN (7-21) mg/dL Creatinine (0.8-1.5) mg/dl Est GFR ( Amer) Est GFR (Non-Af Amer) POC Glucose (mg/dL) 112 H (65-110) mg/dL Random Glucose (70-110) mg/dL Calcium (8.4-10.5) mg/dL Phosphorus (2.5-4.5) mg/dL Magnesium (1.7-2.2) mg/dL Total Bilirubin (0.2-1.3) mg/dL AST (17-59) U/L ALT (7-56) U/L Alkaline Phosphatase (38-126) U/L Troponin I 2.42 H* D ng/mL Total Protein (5.8-8.3) g/dL Albumin (3.0-4.8) g/dL Globulin gm/dL Albumin/Globulin Ratio (1.1-1.8) Stool Occult Blood (NEGATIVE) Crossmatch 01/05/18 01/05/18 01/03/18 Range/Units 17:00 16:26 16:00 WBC (4.5-11.0) 10^3/uL RBC (3.5-6.1) 10^6/uL Hgb (14.0-18.0) g/dL Hct (42.0-52.0) % MCV (80.0-105.0) fl MCH (25.0-35.0) pg MCHC (31.0-37.0) g/dl RDW (11.5-14.5) % Plt Count (120.0-450.0) 10^3/uL MPV (7.0-11.0) fl Gran % (50.0-68.0) % Lymph % (Auto) (22.0-35.0) % [place] % (Auto) (1.0-6.0) % Eos % (Auto) (1.5-5.0) % Baso % (Auto) (0.0-3.0) % Gran # (1.4-6.5) Lymph # (Auto) (1.2-3.4) [place] # (Auto) (0.1-0.6) Eos # (Auto) (0.0-0.7) Baso # (Auto) (0.0-2.0) K/mm3 PT (9.4-12.5) SECONDS INR APTT 66.6 H (25.1-36.5) Seconds Sodium (132-148) mmol/L Potassium (3.6-5.0) mmol/L Chloride (98-107) mmol/L Carbon Dioxide (21-33) mmol/L Anion Gap (10-20) BUN (7-21) mg/dL Creatinine (0.8-1.5) mg/dl Est GFR ( Amer) Est GFR (Non-Af Amer) POC Glucose (mg/dL) 134 H (65-110) mg/dL Random Glucose (70-110) mg/dL Calcium (8.4-10.5) mg/dL Phosphorus (2.5-4.5) mg/dL Magnesium (1.7-2.2) mg/dL Total Bilirubin (0.2-1.3) mg/dL AST (17-59) U/L ALT (7-56) U/L Alkaline Phosphatase (38-126) U/L Troponin I ng/mL Total Protein (5.8-8.3) g/dL Albumin (3.0-4.8) g/dL Globulin gm/dL Albumin/Globulin Ratio (1.1-1.8) Stool Occult Blood (NEGATIVE) Crossmatch See Detail Laboratory Results - last 24 hr 01/03/18 01/05/18 01/05/18 16:00 16:26 17:00 WBC RBC Hgb Hct MCV MCH MCHC RDW Plt Count MPV Gran % Lymph % (Auto) [place] % (Auto) Eos % (Auto) Baso % (Auto) Gran # Lymph # (Auto) [place] # (Auto) Eos # (Auto) Baso # (Auto) PT INR APTT 66.6 H Sodium Potassium Chloride Carbon Dioxide Anion Gap BUN Creatinine Est GFR ( Amer) Est GFR (Non-Af Amer) POC Glucose (mg/dL) 134 H Random Glucose Calcium Phosphorus Magnesium Total Bilirubin AST ALT Alkaline Phosphatase Troponin I Total Protein Albumin Globulin Albumin/Globulin Ratio Stool Occult Blood Crossmatch See Detail 01/05/18 01/06/18 01/06/18 22:13 05:35 05:45 WBC 5.5 RBC 3.61 Hgb 10.4 L Hct 31.7 L MCV 87.8 MCH 28.8 MCHC 32.8 RDW 15.4 H Plt Count 131 MPV 9.4 Gran % 71.0 H Lymph % (Auto) 16.6 L [place] % (Auto) 8.0 H Eos % (Auto) 4.0 Baso % (Auto) 0.4 Gran # 3.93 Lymph # (Auto) 0.9 L [place] # (Auto) 0.4 Eos # (Auto) 0.2 Baso # (Auto) 0.02 PT INR APTT Sodium Potassium Chloride Carbon Dioxide Anion Gap BUN Creatinine Est GFR ( Amer) Est GFR (Non-Af Amer) POC Glucose (mg/dL) 112 H Random Glucose Calcium Phosphorus Magnesium Total Bilirubin AST ALT Alkaline Phosphatase Troponin I 2.42 H* D Total Protein Albumin Globulin Albumin/Globulin Ratio Stool Occult Blood Crossmatch 01/06/18 01/06/18 01/06/18 05:45 05:45 10:00 WBC RBC Hgb Hct MCV MCH MCHC RDW Plt Count MPV Gran % Lymph % (Auto) [place] % (Auto) Eos % (Auto) Baso % (Auto) Gran # Lymph # (Auto) [place] # (Auto) Eos # (Auto) Baso # (Auto) PT 13.0 H INR 1.13 APTT 67.0 H Sodium 137 Potassium 3.7 Chloride 103 Carbon Dioxide 28 Anion Gap 10 BUN 10 Creatinine 0.8 Est GFR ( Amer) > 60 Est GFR (Non-Af Amer) > 60 POC Glucose (mg/dL) Random Glucose 124 H Calcium 7.7 L Phosphorus 2.5 Magnesium 1.9 Total Bilirubin 2.8 H AST 46 ALT 67 H Alkaline Phosphatase 109 Troponin I Total Protein 5.6 L Albumin 2.7 L Globulin 2.9 Albumin/Globulin Ratio 0.9 L Stool Occult Blood Negative Crossmatch Critical Care Progress Note - Nutrition Nutrition: Nutrition Category Date Time Status Liquid Diet [DIET] Diets 01/04/18 Lunch Ordered Assessment/Plan - Assessment and Plan (Free Text) Assessment: Patient seen and examined on rounds with resident, agree with note with following additions/exceptions: Patient is 77yo male with PMhx mantle cell lymphoma stage IV, Lung CA s/p wedge resection, CAD with stents, DM, HTN, COPD, perforated sigmoid diverticulitis s/p Nishant procedure, s/p colostomy reversa, with respiratory failure, which has resolved, extubated, doing well on 2LNC, awake, alert in NAD. Surgery, GI, Cardiology following Labs imaging, chart reviewed Troponin downtrending NO CP, SOB HH stable Respiratory failure, resolved Hx Lymphoma Hx of Lung Ca CAD DM HTN COPD Leukocytosis s/p colostomy reversal Elevated Troponin, NSTEMI Anemia Recommend: - cont with supp o2, goal sat 90%, duonebs PRN - follow up ID, abx as per ID - BP control - DC IVF - clear liquid diet - Pain control - monitor HH - Heparin drip, monitor PTT - ASA, Plavix as per cardiology - Cardiac cath on Sunday01/07/18, NPO after MN - follow up heme onc - follow up surgery - GI ppx - DVT ppx, Heparin drip - Monitor in MICU
--- NOTE | 2018-01-06 11:35 | CP.PCM.PN ---
<Ignacio Siddiqui - Last Filed: 01/06/18 11:33> Subjective - Date & Time of Evaluation Date of Evaluation: 01/06/18 Time of Evaluation: 11:34 - Subjective Subjective: Patient is tolerating diet, moving bowels. No bleeding. Blood transfusion yesterday with appropriate response Hb 9.1 to 10.4. Objective - Vital Signs/Intake and Output Vital Signs (last 24 hours): Temp Pulse Resp BP Pulse Ox 997.6 F H 77 26 H 120/54 L 100 01/06/18 08:00 01/06/18 10:19 01/06/18 10:19 01/06/18 10:00 01/06/18 10:00 Intake and Output: 01/06/18 01/06/18 06:59 18:59 Intake Total 680 Output Total 70 Balance 610 - Medications Medications: Current Medications Acetaminophen (Tylenol 325mg Tab) 650 mg PO Q6H PRN PRN Reason: Fever >100.4 F Aspirin (Ecotrin) 81 mg PO DAILY [facility] Last Admin: 01/06/18 09:37 Dose: 81 mg Atorvastatin Calcium (Lipitor) 20 mg PO QPM [facility] Last Admin: 01/05/18 17:13 Dose: 20 mg Clopidogrel Bisulfate (Plavix) 75 mg PO DAILY [facility] Last Admin: 01/06/18 09:37 Dose: 75 mg Ezetimibe (Zetia) 10 mg PO DAILY [facility] Last Admin: 01/06/18 09:38 Dose: 10 mg Furosemide (Lasix) 20 mg PO DAILY [facility] Last Admin: 01/06/18 09:38 Dose: 20 mg Hydromorphone HCl (Dilaudid) 0.5 mg IVP Q3 PRN PRN Reason: Pain, severe (8-10) Last Admin: 01/05/18 18:22 Dose: 0.5 mg Sodium Chloride (Sodium Chloride 0.9%) 1,000 mls @ 50 mls/hr IV .Q20H [facility] Last Admin: 01/06/18 10:15 Dose: 50 mls/hr Heparin Sodium/Sodium Chloride (Heparin 34881 Units/250ml 1/2 Normal Saline) 25,000 units in 250 mls @ 8.274 mls/hr IV .Q24H [facility]; Protocol Last Admin: 01/05/18 17:17 Dose: 9 units/kg/hr, 6.205 mls/hr Insulin Human Regular (Humulin R Low) 0 units SC Q6H [facility]; Protocol Last Admin: 01/06/18 10:24 Dose: 1 units Levalbuterol HCl (Xopenex) 0.63 mg IH TIDRESP [facility] Last Admin: 01/06/18 07:24 Dose: 0.63 mg Metoprolol Tartrate (Lopressor) 25 mg PO DAILY [facility] Last Admin: 01/06/18 09:38 Dose: 25 mg Metoprolol Tartrate (Lopressor) 12.5 mg PO QPM [facility] Last Admin: 01/05/18 17:13 Dose: 12.5 mg Montelukast Sodium (Singulair) 10 mg PO QPM [facility] Last Admin: 01/05/18 17:13 Dose: 10 mg Non-Formulary Medication (Rapaflo) 8 mg PO QPM [facility] Last Admin: 01/05/18 17:14 Dose: 8 mg Non-Formulary Medication (Ranexa) 500 mg PO BID [facility] Last Admin: 01/06/18 09:38 Dose: 500 mg Ondansetron HCl (Zofran Inj) 4 mg IVP Q4H PRN PRN Reason: Nausea/Vomiting Oxybutynin Chloride (Ditropan Tab) 5 mg PO HS [facility] Last Admin: 01/05/18 21:39 Dose: 5 mg Pantoprazole Sodium (Protonix Inj) 40 mg IVP DAILY [facility] Last Admin: 01/06/18 09:38 Dose: 40 mg - Labs Labs: 01/06/18 05:45 01/06/18 05:45 PT 13.0 SECONDS (9.4-12.5) H 01/06/18 05:45 INR 1.13 01/06/18 05:45 APTT 67.0 Seconds (25.1-36.5) H 01/06/18 05:45 - Constitutional Appears: Non-toxic, No Acute Distress - Head Exam Head Exam: NORMAL INSPECTION - ENT Exam ENT Exam: Mucous Membranes Moist, Normal Exam - Respiratory Exam Respiratory Exam: Clear to Ausculation Bilateral, NORMAL BREATHING PATTERN - Cardiovascular Exam Cardiovascular Exam: REGULAR RHYTHM, +S1, +S2 - GI/Abdominal Exam GI & Abdominal Exam: Soft. absent: Tenderness - Neurological Exam Neurological Exam: Alert, Awake, Oriented x3 - Psychiatric Exam Psychiatric exam: Normal Affect, Normal Mood - Skin Skin Exam: Dry, Normal Color Assessment and Plan - Assessment and Plan (Free Text) Assessment: 77 year old male with a past medical history significant for stage IV mantle cell lymphoma (quiescence), lung cancer s/p wedge resection, hypoglobulinemia, CAD s/p stent placement, DM2, HTN, COPD, and perforated sigmoid diverticulitis s/p Milli procedure who presented with abdominal pain: Abdominal Pain -s/p colonoscopy 12/31 * one 8mm polyp in cecum removed, diverticulosis in sigmoid colon and in descending colon, internal hemorrhoids, ileum normal, one 5mm polyp in rectum removed * await pathology results -s/p EGD 12/31 * normal examined duodenum, gastritis, esophagogastric landmarks identified -s/p exploratory laparotomy, reversal of colostomy, partial rectal stump resection with end to end anastomosis, extensive lysis of adhesions and mobilization of splenic flexure, partial omentectomy 01/01 * Of note: While in the PACU patient became less responsive, unarousable, went into respiratory arrest, OPHTHALMOLOGIST called, patient intubated by anesthesia - extubated 01/02 -monitor for bowel function -patient has been transfused 4u pRBCs for low Hgb and also with elevated troponins now on asa, plavix and heparin drip being managed by Dr Perez -He had elevated trop, and started on heparin gtt. He will have cardiac cath Sunday. <Lakisha Casiano V - Last Filed: 01/06/18 18:35> Objective - Vital Signs/Intake and Output Vital Signs (last 24 hours): Temp Pulse Resp BP Pulse Ox 97.8 F 61 20 128/65 100 01/06/18 16:00 01/06/18 17:57 01/06/18 17:57 01/06/18 17:57 01/06/18 17:57 Intake and Output: 01/06/18 01/06/18 06:59 18:59 Intake Total 2316 Output Total 180 Balance 2136 - Medications Medications: Current Medications Acetaminophen (Tylenol 325mg Tab) 650 mg PO Q6H PRN PRN Reason: Fever >100.4 F Aspirin (Ecotrin) 81 mg PO DAILY [facility] Last Admin: 01/06/18 09:37 Dose: 81 mg Atorvastatin Calcium (Lipitor) 20 mg PO QPM [facility] Last Admin: 11/04/18 17:43 Dose: 20 mg Clopidogrel Bisulfate (Plavix) 75 mg PO DAILY [facility] Last Admin: 01/06/18 09:37 Dose: 75 mg Ezetimibe (Zetia) 10 mg PO DAILY [facility] Last Admin: 01/06/18 09:38 Dose: 10 mg Furosemide (Lasix) 20 mg PO DAILY [facility] Last Admin: 01/06/18 09:38 Dose: 20 mg Sodium Chloride (Sodium Chloride 0.9%) 1,000 mls @ 50 mls/hr IV .Q20H [facility] Last Admin: 01/06/18 10:15 Dose: 50 mls/hr Heparin Sodium/Sodium Chloride (Heparin 43387 Units/250ml 1/2 Normal Saline) 25,000 units in 250 mls @ 8.274 mls/hr IV .Q24H [facility]; Protocol Last Admin: 01/05/18 17:17 Dose: 9 units/kg/hr, 6.205 mls/hr Insulin Human Regular (Humulin R Low) 0 units SC Q6H [facility]; Protocol Last Admin: 01/06/18 16:27 Dose: Not Given Levalbuterol HCl (Xopenex) 0.63 mg IH TIDRESP [facility] Last Admin: 01/06/18 14:13 Dose: 0.63 mg Metoprolol Tartrate (Lopressor) 25 mg PO DAILY [facility] Last Admin: 01/06/18 09:38 Dose: 25 mg Metoprolol Tartrate (Lopressor) 12.5 mg PO QPM [facility] Last Admin: 01/06/18 17:44 Dose: Not Given Montelukast Sodium (Singulair) 10 mg PO QPM [facility] Last Admin: 01/06/18 17:43 Dose: 10 mg Non-Formulary Medication (Rapaflo) 8 mg PO QPM [facility] Last Admin: 01/06/18 17:43 Dose: 8 mg Non-Formulary Medication (Ranexa) 500 mg PO BID [facility] Last Admin: 01/06/18 17:44 Dose: 500 mg Ondansetron HCl (Zofran Inj) 4 mg IVP Q4H PRN PRN Reason: Nausea/Vomiting Oxybutynin Chloride (Ditropan Tab) 5 mg PO HS [facility] Last Admin: 01/05/18 21:39 Dose: 5 mg Oxycodone/Acetaminophen (Percocet 5/325 Mg Tab) 1 tab PO Q6H PRN PRN Reason: Pain, moderate (4-7) Stop: 01/09/18 14:30 Pantoprazole Sodium (Protonix Inj) 40 mg IVP DAILY [facility] Last Admin: 01/06/18 09:38 Dose: 40 mg - Labs Labs: 01/06/18 05:45 01/06/18 05:45 PT 13.0 SECONDS (9.4-12.5) H 01/06/18 05:45 INR 1.13 01/06/18 05:45 APTT 67.0 Seconds (25.1-36.5) H 01/06/18 05:45 Attending/Attestation - Attestation I have personally seen and examined this patient.: Yes I have fully participated in the care of the patient.: Yes I have reviewed all pertinent clinical information, including history, physical exam and plan: Yes Notes (Text): This is an addendum to GI progress report dictated by the GI Fellow.The patient was seen and examined earlier. Medical records, lab studies, imagings were reviewed. Last 24 hours events reviewed. Agreed with the above treatment plan as outlined in GI Fellow 's notes with the addition of the following Patient is on liquid diet tolerating Patient is on aspirin, plavix and heparin sp transfusion hb stable plan for cardiac cath tomorrow Followup hb 01/06/18 18:33
--- NOTE | 2018-01-06 12:41 | PN ---
DATE: 01/06/2018 SUBJECTIVE: The patient is seen in the ICU. He is sitting in a chair. He is awake, he is alert. He is somewhat groggy. Some mildly confused. He denies any pain. He denies any shortness of breath. He denies any chest tightness. PHYSICAL EXAMINATION: GENERAL: Elderly male sitting in chair in the ICU. VITAL SIGNS: Blood pressure 120/54, heart rate 76, respiratory rate 22, temperature 97.6. HEENT: Normocephalic, atraumatic, positive pallor. NECK: Supple, no JVD. LUNGS: Bilateral equal air entry, bilateral equal expansion, crackles at bases. CARDIAC: S1, S2, regular rate and rhythm, no murmur, no rub. ABDOMEN: Obese, distended, soft, bowel sounds present, positive dressing. EXTREMITIES: No lower extremity edema. INTAKE AND OUTPUT: 2281/950. LABORATORY DATA: WBC 5.5, hemoglobin 10, hematocrit 32, platelets 131. Sodium 137, potassium 3.7, chloride 103, CO2 of 28, BUN and creatinine 0.8, glucose 124, calcium 7.7, phosphorus 2.5, magnesium 1.9, albumin 2.7. Troponin 2.4, down from 3.89. Stool occults negative. Cultures, no growth. CURRENT MEDICATIONS: Dilaudid, Ditropan, Ecotrin, heparin 9 units/kg, Lasix 20 mg, Lipitor, Lopressor. Protonix, Singulair, Tylenol, Xopenex, Zofran. ASSESSMENT AND PLAN: 1. Perforated diverticulitis, status post Milli's procedure, colostomy reversal. 2. Status post non-ST elevation myocardial infarction. 3. Status post severe anemia, [id number] 4. Hypokalemia. 5. Hypophosphatemia. 6. Hypocalcemia. 7. Status post hypercapnic respiratory acidosis, respiratory failure, status post mechanical ventilation. 8. Non-insulin dependent diabetes mellitus. 9. Stage IV mantle cell lymphoma. 10. History of lung cancer, wedge resection. 11. Coronary artery disease, history of percutaneous transluminal coronary angioplasty and stents. PLAN: 1. Continue low-dose Lasix, keep I's and O's matched. 2. Agree with plan for cardiac catheterization tomorrow. 3. Hold Lasix prior to cardiac catheterization. 4. Avoid nephrotoxins. 5. Continue antibiotics as per ID recommendations. 6. Advance diet as per surgical recommendations, monitor H&H. Case discussed with ICU residents and attending, case discussed with ICU nursing staff, case discussed with Dr. Hill. More than 35 minutes spent in the care of this critically ill patient. Natalie Raman MD
--- NOTE | 2018-01-06 12:59 | PN ---
DATE: 01/06/2018 SUBJECTIVE: The patient is in bed, in no acute , nontoxic. No fevers. PHYSICAL EXAMINATION: VITAL SIGNS: On exam, temperature is 97, blood pressure is 111/50, respiratory rate of 18, heart rate of 67. HEENT: Examination of HEENT is unremarkable. NECK: Supple. LUNGS: Have decreased breath sounds. HEART: Normal S1, S2. ABDOMEN: Soft, nontender. LABORATORY DATA: Laboratory examination reveals the cultures are all negative. The white count is reported to be 5.5. Review of orders reveals the patient to be off of antibiotics and chemistries are reviewed. The patient does have elevated troponins. Stool culture is negative. ASSESSMENT AND PLAN: A 77-year-old male with multiple admissions with a mantle cell lymphoma, lung cancer, chemotherapy, coronary artery disease, benign prostatic hypertrophy, bilateral healthcare-associated pneumonia, asthma, bronchitis, urinary tract infection, status post surgery, reversal of the colostomy, respiratory failure, intubated on a ventilator with systemic inflammatory response syndrome, extubated, comfortable, culture negative, normal white count, normal procalcitonin and currently off of antibiotics, afebrile. The patient is at risk for developing nosocomial infections. We will follow. Marvin Callahan MD
[2018-01-06] MEDS: HYDROmorphone 0.5 mg/0.5 ml ISec IVP PRN (13:33)
[2018-01-06] MEDS ORDERED: Oxycodone/Acetaminophen 5/325 mg Tab PO PRN (14:29)
[2018-01-06] MEDS: RAPAFLO 8 MG PO SCH (17:43)
--- NOTE | 2018-01-06 17:46 | CP.PCM.PN ---
Subjective - Date & Time of Evaluation Date of Evaluation: 01/05/18 Time of Evaluation: 18:00 - Subjective Subjective: No acute events over night. Daughter reportedly though pt was confused. He thought he with in [place]? However upon exam patient fully oriented x3. Patient complains of some mild abdominal pain at surgical cite controlled with morphine. ROS: 12 ROS otherwise negative Objective - Vital Signs/Intake and Output Vital Signs (last 24 hours): Temp Pulse Resp BP Pulse Ox 97.8 F 58 L 15 119/67 100 01/06/18 16:00 01/06/18 16:27 01/06/18 16:27 01/06/18 16:00 01/06/18 16:27 Intake and Output: 01/06/18 01/06/18 06:59 18:59 Intake Total 1896 Output Total 180 Balance 1716 - Medications Medications: Current Medications Acetaminophen (Tylenol 325mg Tab) 650 mg PO Q6H PRN PRN Reason: Fever >100.4 F Aspirin (Ecotrin) 81 mg PO DAILY [facility] Last Admin: 01/06/18 09:37 Dose: 81 mg Atorvastatin Calcium (Lipitor) 20 mg PO QPM [facility] Last Admin: 01/05/18 17:13 Dose: 20 mg Clopidogrel Bisulfate (Plavix) 75 mg PO DAILY [facility] Last Admin: 01/06/18 09:37 Dose: 75 mg Ezetimibe (Zetia) 10 mg PO DAILY [facility] Last Admin: 01/06/18 09:38 Dose: 10 mg Furosemide (Lasix) 20 mg PO DAILY [facility] Last Admin: 01/06/18 09:38 Dose: 20 mg Sodium Chloride (Sodium Chloride 0.9%) 1,000 mls @ 50 mls/hr IV .Q20H [facility] Last Admin: 01/06/18 10:15 Dose: 50 mls/hr Heparin Sodium/Sodium Chloride (Heparin 07138 Units/250ml 1/2 Normal Saline) 25,000 units in 250 mls @ 8.274 mls/hr IV .Q24H [facility]; Protocol Last Admin: 01/05/18 17:17 Dose: 9 units/kg/hr, 6.205 mls/hr Insulin Human Regular (Humulin R Low) 0 units SC Q6H [facility]; Protocol Last Admin: 01/06/18 16:27 Dose: Not Given Levalbuterol HCl (Xopenex) 0.63 mg IH TIDRESP [facility] Last Admin: 01/06/18 14:13 Dose: 0.63 mg Metoprolol Tartrate (Lopressor) 25 mg PO DAILY [facility] Last Admin: 01/06/18 09:38 Dose: 25 mg Metoprolol Tartrate (Lopressor) 12.5 mg PO QPM [facility] Last Admin: 01/05/18 17:13 Dose: 12.5 mg Montelukast Sodium (Singulair) 10 mg PO QPM [facility] Last Admin: 01/05/18 17:13 Dose: 10 mg Non-Formulary Medication (Rapaflo) 8 mg PO QPM [facility] Last Admin: 01/05/18 17:14 Dose: 8 mg Non-Formulary Medication (Ranexa) 500 mg PO BID [facility] Last Admin: 01/06/18 09:38 Dose: 500 mg Ondansetron HCl (Zofran Inj) 4 mg IVP Q4H PRN PRN Reason: Nausea/Vomiting Oxybutynin Chloride (Ditropan Tab) 5 mg PO HS [facility] Last Admin: 01/05/18 21:39 Dose: 5 mg Oxycodone/Acetaminophen (Percocet 5/325 Mg Tab) 1 tab PO Q6H PRN PRN Reason: Pain, moderate (4-7) Stop: 01/09/18 14:30 Pantoprazole Sodium (Protonix Inj) 40 mg IVP DAILY [facility] Last Admin: 01/06/18 09:38 Dose: 40 mg - Labs Labs: 01/06/18 05:45 01/06/18 05:45 PT 13.0 SECONDS (9.4-12.5) H 01/06/18 05:45 INR 1.13 01/06/18 05:45 APTT 67.0 Seconds (25.1-36.5) H 01/06/18 05:45 - Constitutional Appears: Well - Respiratory Exam Respiratory Exam: Clear to Ausculation Bilateral, NORMAL BREATHING PATTERN - Cardiovascular Exam Cardiovascular Exam: REGULAR RHYTHM, +S1, +S2. absent: Murmur - GI/Abdominal Exam GI & Abdominal Exam: Soft, Normal Bowel Sounds. absent: Guarding Additional comments: some slight tenderness with moderate palpation Incisions cite appears c/d/i - Extremities Exam Extremities Exam: Full ROM, Normal Capillary Refill, Normal Inspection. absent: Joint Swelling, Pedal Edema Assessment and Plan - Assessment and Plan (Free Text) Assessment: 7 year old male with a past medical history significant for stage IV mantle cell lymphoma (quiescence), lung cancer s/p wedge resection, hypoglobulinemia, CAD s/p stent placement, DM2, HTN, COPD, and perforated sigmoid diverticulitis s/p Milli procedure who presented with abdominal pain. Plan: 1. S/P Colostomy Reversal -EGD/CSPY report noted -Clear liquid diet; advance as tolerated -Continue Dilaudid PRN for pain control -Continue Zofran PRN for N/V -Continue NS to 50mls/hr -Strict I/O's, OOB to chair and IS -GI and Surgery consulted, all recommendations appreciated 2. Normocytic Anemia -H/H stable at 9.4/28.4 -CT abdomen/pelvis without contrast showing no intra-abdominal and/or retroperitoneal hemorrhage -S/P two units of pRBC's -Continue to monitor with daily CBC's 3. Leukocytosis -Resolved -Likely marginalization -UA and Chest X-ray Unremarkable for infection -Sputum, blood and urine cultures all without growth -Procalcitonin negative -Discontinue Merrem -ID consulted, all recommendations appreciated 4. Elevated Troponins -Likely secondary to type II [place], per cardio -Started on heparin gtt -Plan for PTCA on Sunday (01/07) if patient remains stable -Cardiology and Nephrology consulted, all recommendations appreciated 5. History of CAD -Continue ASA, Plavix and Lopressor -Cardiology consulted, all recommendations appreciated 6. History of COPD -Continue Duonebs Q6 -Continue Singulair 7. History of BPH -Continue Rapaflo and Oxybutynin in setting of NPO 8. History of DM2 -SSI-Low and Accuchecks Q6 GI Prophylaxis: Protonix DVT Prophylaxis: Heparin gtt Diet: Clear liquid diet Code Status: Full code
--- NOTE | 2018-01-06 17:48 | CP.PCM.PN ---
Subjective - Date & Time of Evaluation Date of Evaluation: 01/06/18 Time of Evaluation: 16:00 - Subjective Subjective: No acute events over night ROS: 12 ROS negative Objective - Vital Signs/Intake and Output Vital Signs (last 24 hours): Temp Pulse Resp BP Pulse Ox 97.8 F 58 L 15 119/67 100 01/06/18 16:00 01/06/18 16:27 01/06/18 16:27 01/06/18 16:00 01/06/18 16:27 Intake and Output: 01/06/18 01/06/18 06:59 18:59 Intake Total 1896 Output Total 180 Balance 1716 - Medications Medications: Current Medications Acetaminophen (Tylenol 325mg Tab) 650 mg PO Q6H PRN PRN Reason: Fever >100.4 F Aspirin (Ecotrin) 81 mg PO DAILY [facility] Last Admin: 01/06/18 09:37 Dose: 81 mg Atorvastatin Calcium (Lipitor) 20 mg PO QPM [facility] Last Admin: 01/05/18 17:13 Dose: 20 mg Clopidogrel Bisulfate (Plavix) 75 mg PO DAILY [facility] Last Admin: 01/06/18 09:37 Dose: 75 mg Ezetimibe (Zetia) 10 mg PO DAILY [facility] Last Admin: 01/06/18 09:38 Dose: 10 mg Furosemide (Lasix) 20 mg PO DAILY [facility] Last Admin: 01/06/18 09:38 Dose: 20 mg Sodium Chloride (Sodium Chloride 0.9%) 1,000 mls @ 50 mls/hr IV .Q20H [facility] Last Admin: 01/06/18 10:15 Dose: 50 mls/hr Heparin Sodium/Sodium Chloride (Heparin 50004 Units/250ml 1/2 Normal Saline) 25,000 units in 250 mls @ 8.274 mls/hr IV .Q24H [facility]; Protocol Last Admin: 01/05/18 17:17 Dose: 9 units/kg/hr, 6.205 mls/hr Insulin Human Regular (Humulin R Low) 0 units SC Q6H [facility]; Protocol Last Admin: 01/06/18 16:27 Dose: Not Given Levalbuterol HCl (Xopenex) 0.63 mg IH TIDRESP [facility] Last Admin: 01/06/18 14:13 Dose: 0.63 mg Metoprolol Tartrate (Lopressor) 25 mg PO DAILY [facility] Last Admin: 01/06/18 09:38 Dose: 25 mg Metoprolol Tartrate (Lopressor) 12.5 mg PO QPM [facility] Last Admin: 01/05/18 17:13 Dose: 12.5 mg Montelukast Sodium (Singulair) 10 mg PO QPM [facility] Last Admin: 01/05/18 17:13 Dose: 10 mg Non-Formulary Medication (Rapaflo) 8 mg PO QPM [facility] Last Admin: 01/05/18 17:14 Dose: 8 mg Non-Formulary Medication (Ranexa) 500 mg PO BID [facility] Last Admin: 01/06/18 09:38 Dose: 500 mg Ondansetron HCl (Zofran Inj) 4 mg IVP Q4H PRN PRN Reason: Nausea/Vomiting Oxybutynin Chloride (Ditropan Tab) 5 mg PO HS [facility] Last Admin: 01/05/18 21:39 Dose: 5 mg Oxycodone/Acetaminophen (Percocet 5/325 Mg Tab) 1 tab PO Q6H PRN PRN Reason: Pain, moderate (4-7) Stop: 01/09/18 14:30 Pantoprazole Sodium (Protonix Inj) 40 mg IVP DAILY [facility] Last Admin: 01/06/18 09:38 Dose: 40 mg - Labs Labs: 01/06/18 05:45 01/06/18 05:45 PT 13.0 SECONDS (9.4-12.5) H 01/06/18 05:45 INR 1.13 01/06/18 05:45 APTT 67.0 Seconds (25.1-36.5) H 01/06/18 05:45 - Constitutional Appears: Well - Neck Exam Neck Exam: Full ROM, Normal Inspection. absent: Lymphadenopathy - Respiratory Exam Respiratory Exam: Clear to Ausculation Bilateral, NORMAL BREATHING PATTERN - Cardiovascular Exam Cardiovascular Exam: REGULAR RHYTHM, +S1, +S2. absent: Murmur - GI/Abdominal Exam GI & Abdominal Exam: Soft, Normal Bowel Sounds. absent: Guarding Additional comments: slight TTP with moderate palpation. Surgical cite appears c/d/i - Back Exam Back Exam: NORMAL INSPECTION - Psychiatric Exam Psychiatric exam: Normal Affect, Normal Mood - Skin Skin Exam: Dry, Intact, Normal Color, Warm Assessment and Plan - Assessment and Plan (Free Text) Assessment: 7 year old male with a past medical history significant for stage IV mantle cell lymphoma (quiescence), lung cancer s/p wedge resection, hypoglobulinemia, CAD s/p stent placement, DM2, HTN, COPD, and perforated sigmoid diverticulitis s/p Milli procedure who presented with abdominal pain. Plan: 1. S/P Colostomy Reversal -EGD/CSPY report noted -Clear liquid diet; advance as tolerated -Continue Dilaudid PRN for pain control -Continue Zofran PRN for N/V -Continue NS to 50mls/hr -Strict I/O's, OOB to chair and IS -GI and Surgery consulted, all recommendations appreciated 2. Normocytic Anemia -H/H stable at 9.4/28.4 -CT abdomen/pelvis without contrast showing no intra-abdominal and/or retroperitoneal hemorrhage -S/P two units of pRBC's -Continue to monitor with daily CBC's 3. Leukocytosis -Resolved -Likely marginalization -UA and Chest X-ray Unremarkable for infection -Sputum, blood and urine cultures all without growth -Procalcitonin negative -Discontinue Merrem -ID consulted, all recommendations appreciated 4. Elevated Troponins -Likely secondary to type II [place], per cardio -Started on heparin gtt -Plan for PTCA on Sunday (01/07) if patient remains stable -Cardiology and Nephrology consulted, all recommendations appreciated 5. History of CAD -Continue ASA, Plavix and Lopressor -Cardiology consulted, all recommendations appreciated 6. History of COPD -Continue Duonebs Q6 -Continue Singulair 7. History of BPH -Continue Rapaflo and Oxybutynin in setting of NPO 8. History of DM2 -SSI-Low and Accuchecks Q6 GI Prophylaxis: Protonix DVT Prophylaxis: Heparin gtt Diet: Clear liquid diet Code Status: Full code
--- NOTE | 2018-01-06 18:13 | CP.PCM.CON ---
History of Present Illness - History of Present Illness History of Present Illness: Neurology Consultation Note: Mr. Marques is a 77-year-old man, who was referred to me by Dr. Vogel, with a past medical history of mantle cell lymphoma stage IV, Lung CA s/p wedge resection, CAD with stents, DM, HTN, COPD, perforated sigmoid diverticulitis s/p Milli procedure, s/p colostomy reversal, who is now in the ICU and had an episode of confusion yesterday according to the daughter. Neurology was consulted to assist with the management and care. Labs demonstrated elevated troponins, and there were multiple metabolic derangements. Review of Systems - Review of Systems Systems not reviewed;Unavailable: Altered Mental Status Past Patient History - Infectious Disease Hx of Infectious Diseases: None - Tetanus Immunizations Tetanus Immunization: Unknown - Past Medical History & Family History Past Medical History?: Yes - Past Social History Smoking Status: Never Smoked - CARDIAC Hx Pacemaker: No - PULMONARY Hx Respiratory Disorders: Yes Hx Pneumonia: Yes - NEUROLOGICAL Hx Paralysis: No - HEENT Hx HEENT Problems: Yes Hx Cataracts: (h0h b/lhearing aid) - RENAL Hx Chronic Kidney Disease: No - ENDOCRINE/METABOLIC Hx Diabetes Mellitus Type 2: Yes - HEMATOLOGICAL/ONCOLOGICAL Hx Blood Transfusions: Yes Hx Blood Transfusion Reaction: No - INTEGUMENTARY Hx Dermatological Problems: No - MUSCULOSKELETAL/RHEUMATOLOGICAL Hx Musculoskeletal Disorders: Yes - GASTROINTESTINAL Hx Gastrointestinal Disorders: Yes (Post perfrorated sigmond colon-post exploratory lap sigmoidectomy,colostomy) Hx Colostomy: Yes - GENITOURINARY/GYNECOLOGICAL Hx Genitourinary Disorders: Yes Hx Prostate Problems: Yes (bph,prostectomy) - PSYCHIATRIC Hx Substance Use: No - SURGICAL HISTORY Hx Cardiac Catheterization: Yes (sents x4) Hx Musculoskeletal Surgery: Yes Hx Open Heart Surgery: Yes - ANESTHESIA Hx Anesthesia Reactions: No Hx Malignant Hyperthermia: No Meds Allergies/Adverse Reactions: Allergies Allergy/AdvReac Type Severity Reaction Status Date / Time azithromycin Allergy Severe ANGIOEDEMA Verified 12/30/17 14:48 erythromycin base Allergy Severe ANGIOEDEMA Verified 12/30/17 14:48 Penicillins Allergy Severe ANAPHYLAXIS Verified 12/30/17 14:48 cephalexin monohydrate Allergy Intermediate RASH Verified 12/30/17 14:48 [From Keflex] gabapentin Allergy Intermediate RASH Verified 12/30/17 14:48 pregabalin Allergy Intermediate RASH Verified 12/30/17 14:48 Sulfa (Sulfonamide Allergy Intermediate RASH Verified 12/30/17 14:48 Antibiotics) nitro paste Allergy Intermediate DIZZINESS/H Uncoded 12/30/17 14:48 YPOTENSION Imbrovica Allergy FEVER Uncoded 12/30/17 14:48 - Medications Medications: Current Medications Acetaminophen (Tylenol 325mg Tab) 650 mg PO Q6H PRN PRN Reason: Fever >100.4 F Aspirin (Ecotrin) 81 mg PO DAILY [facility] Last Admin: 01/06/18 09:37 Dose: 81 mg Atorvastatin Calcium (Lipitor) 20 mg PO QPM [facility] Last Admin: 01/06/18 17:43 Dose: 20 mg Clopidogrel Bisulfate (Plavix) 75 mg PO DAILY [facility] Last Admin: 01/06/18 09:37 Dose: 75 mg Ezetimibe (Zetia) 10 mg PO DAILY [facility] Last Admin: 01/06/18 09:38 Dose: 10 mg Furosemide (Lasix) 20 mg PO DAILY [facility] Last Admin: 01/06/18 09:38 Dose: 20 mg Sodium Chloride (Sodium Chloride 0.9%) 1,000 mls @ 50 mls/hr IV .Q20H [facility] Last Admin: 01/06/18 10:15 Dose: 50 mls/hr Heparin Sodium/Sodium Chloride (Heparin 39366 Units/250ml 1/2 Normal Saline) 25,000 units in 250 mls @ 8.274 mls/hr IV .Q24H [facility]; Protocol Last Admin: 01/05/18 17:17 Dose: 9 units/kg/hr, 6.205 mls/hr Insulin Human Regular (Humulin R Low) 0 units SC Q6H [facility]; Protocol Last Admin: 01/06/18 16:27 Dose: Not Given Levalbuterol HCl (Xopenex) 0.63 mg IH TIDRESP [facility] Last Admin: 01/06/18 14:13 Dose: 0.63 mg Metoprolol Tartrate (Lopressor) 25 mg PO DAILY [facility] Last Admin: 01/06/18 09:38 Dose: 25 mg Metoprolol Tartrate (Lopressor) 12.5 mg PO QPM [facility] Last Admin: 01/06/18 17:44 Dose: Not Given Montelukast Sodium (Singulair) 10 mg PO QPM [facility] Last Admin: 01/06/18 17:43 Dose: 10 mg Non-Formulary Medication (Rapaflo) 8 mg PO QPM [facility] Last Admin: 01/06/18 17:43 Dose: 8 mg Non-Formulary Medication (Ranexa) 500 mg PO BID [facility] Last Admin: 01/06/18 17:44 Dose: 500 mg Ondansetron HCl (Zofran Inj) 4 mg IVP Q4H PRN PRN Reason: Nausea/Vomiting Oxybutynin Chloride (Ditropan Tab) 5 mg PO HS [facility] Last Admin: 01/05/18 21:39 Dose: 5 mg Oxycodone/Acetaminophen (Percocet 5/325 Mg Tab) 1 tab PO Q6H PRN PRN Reason: Pain, moderate (4-7) Stop: 01/09/18 14:30 Pantoprazole Sodium (Protonix Inj) 40 mg IVP DAILY [facility] Last Admin: 01/06/18 09:38 Dose: 40 mg Physical Exam - Constitutional Appears: Chronically Ill - Head Exam Head Exam: ATRAUMATIC, NORMAL INSPECTION, NORMOCEPHALIC - Eye Exam Eye Exam: EOMI, Normal appearance, PERRL - ENT Exam ENT Exam: Mucous Membranes Moist, Normal Exam - Cardiovascular Exam Cardiovascular Exam: REGULAR RHYTHM, +S1, +S2 - GI/Abdominal Exam GI & Abdominal Exam: Tenderness - Extremities Exam Extremities exam: Positive for: normal inspection - Neurological Exam Neurological exam: Abnormal Gait, Alert, CN II-XII Intact, Oriented x3, Reflexes Normal - Psychiatric Exam Psychiatric exam: Normal Affect, Normal Mood - Skin Skin Exam: Dry, Intact, Normal Color, Warm Results - Vital Signs Recent Vital Signs: Last Vital Signs Temp 97.8 F 01/06/18 16:00 Pulse 61 01/06/18 17:57 Resp 20 01/06/18 17:57 BP 128/65 01/06/18 17:57 Pulse Ox 100 01/06/18 17:57 - Labs Result Diagrams: 01/06/18 05:45 01/06/18 05:45 Labs: Laboratory Results - last 24 hr 01/03/18 01/05/18 01/06/18 16:00 22:13 05:35 WBC RBC Hgb Hct MCV MCH MCHC RDW Plt Count MPV Gran % Lymph % (Auto) [place] % (Auto) Eos % (Auto) Baso % (Auto) Gran # Lymph # (Auto) [place] # (Auto) Eos # (Auto) Baso # (Auto) PT INR APTT Sodium Potassium Chloride Carbon Dioxide Anion Gap BUN Creatinine Est GFR ( Amer) Est GFR (Non-Af Amer) POC Glucose (mg/dL) 112 H Random Glucose Calcium Phosphorus Magnesium Total Bilirubin AST ALT Alkaline Phosphatase Troponin I 2.42 H* D Total Protein Albumin Globulin Albumin/Globulin Ratio Stool Occult Blood Crossmatch See Detail 01/06/18 01/06/18 01/06/18 05:45 05:45 05:45 WBC 5.5 RBC 3.61 Hgb 10.4 L Hct 31.7 L MCV 87.8 MCH 28.8 MCHC 32.8 RDW 15.4 H Plt Count 131 MPV 9.4 Gran % 71.0 H Lymph % (Auto) 16.6 L [place] % (Auto) 8.0 H Eos % (Auto) 4.0 Baso % (Auto) 0.4 Gran # 3.93 Lymph # (Auto) 0.9 L [place] # (Auto) 0.4 Eos # (Auto) 0.2 Baso # (Auto) 0.02 PT 13.0 H INR 1.13 APTT 67.0 H Sodium 137 Potassium 3.7 Chloride 103 Carbon Dioxide 28 Anion Gap 10 BUN 10 Creatinine 0.8 Est GFR ( Amer) > 60 Est GFR (Non-Af Amer) > 60 POC Glucose (mg/dL) Random Glucose 124 H Calcium 7.7 L Phosphorus 2.5 Magnesium 1.9 Total Bilirubin 2.8 H AST 46 ALT 67 H Alkaline Phosphatase 109 Troponin I Total Protein 5.6 L Albumin 2.7 L Globulin 2.9 Albumin/Globulin Ratio 0.9 L Stool Occult Blood Crossmatch 01/06/18 01/06/18 01/06/18 07:22 10:00 11:16 WBC RBC Hgb Hct MCV MCH MCHC RDW Plt Count MPV Gran % Lymph % (Auto) [place] % (Auto) Eos % (Auto) Baso % (Auto) Gran # Lymph # (Auto) [place] # (Auto) Eos # (Auto) Baso # (Auto) PT INR APTT Sodium Potassium Chloride Carbon Dioxide Anion Gap BUN Creatinine Est GFR ( Amer) Est GFR (Non-Af Amer) POC Glucose (mg/dL) 125 H 170 H Random Glucose Calcium Phosphorus Magnesium Total Bilirubin AST ALT Alkaline Phosphatase Troponin I Total Protein Albumin Globulin Albumin/Globulin Ratio Stool Occult Blood Negative Crossmatch Assessment & Plan (1) Acute encephalopathy Assessment and Plan: This may be multi-factorial considering the multiple medical co-morbidities, electrolyte abnormalities and possible infection risk as well as ICU delirium. A non-contrast CT scan of the head can be obtain for further evaluation. Con tinue current management of other medical issues. Thank you for the consultation. Status: Acute
--- NOTE | 2018-01-06 21:07 | PN ---
DATE: 01/06/2018 PULMONARY PROGRESS NOTE REFERRING PHYSICIAN: Ted Santoyo MD. SUBJECTIVE: He is lying in the bed, head at 45 degree, just received IV opioid, feels better, pain is better. Cough has improved. Not much sputum production. No nausea. Did have a bowel movement. No leg pain. No leg swelling. PHYSICAL EXAMINATION: GENERAL: In no acute distress. VITAL SIGNS: Temperature 98, heart rate 66, respiratory rate 25, blood pressure 127/78, pulse oximetry 100% on nasal cannula. HEENT: Small oral airway. NECK: Supple. No JVD. LUNGS: Few scattered rhonchi. Overall fair air flow. HEART: S1 and S2. ABDOMEN: Positive bowel sounds, but decrease in frequencies. Mild tenderness. Has a dressing over the incision site. EXTREMITIES: There is no edema. NEUROLOGIC: Sleepy, arousable, follows simple commands. MEDICATIONS: He is on Dilaudid 0.5 mg every 3 hours p.r.n., oxybutynin 5 mg at bedtime, Ecotrin 81 mg daily. He is on weight-based heparin protocol, insulin coverage, Lasix 20 mg daily, Lipitor 20 mg daily, metoprolol tartrate 12.5 mg in the evening and 25 mg in the morning, Percocet 5/325 one tablet every 6 hour p.r.n., Plavix 75 mg daily, Protonix 40 mg IV daily, Ranexa 500 mg twice a day, Rapaflo was given, Singulair 10 mg daily, IV fluid normal saline 50 mL per hour, Tylenol p.r.n., Xopenex inhaled three times a day, Zetia 10 mg daily, and Zofran p.r.n. basis. LABORATORY DATA: Shows hemoglobin 10.4, hematocrit 31.7, WBC 5.5, platelet count 131. PTT 67. Sodium 137, potassium 3.7, chloride 103, bicarbonate 28, BUN 10, creatinine 0.8, glucose 124, calcium 7.7, phosphorus 2.5, magnesium 1.9. AST 46, ALT 67, alkaline phosphatase 109, albumin is 2.7. Microbiology: Blood culture, urine culture, and sputum culture, there is no growth. IMPRESSION AND PLAN: Status post laparotomy with reversal of colostomy; status post visceral perforation,respiratory failure, liberated from the ventilator, on supplemental oxygen, suspect sleep apnea syndrome, history of lung cancer, had wedge resection in the remote past, also has mantle cell lymphoma in the past, coronary artery disease, history of coronary stent, hypertension, diabetes, chronic lung disease, status post respiratory failure requiring resuscitation, ended up with cardiac enzymes positive, being followed by Cardiology, been on heparin. According to nursing staff, scheduled for cardiac catheterization in the morning. Continue gastric prophylaxis, anticoagulation, antibiotics, pressure ulcer precaution. Follow up ABG, chest x-ray, CBC, CMP in the morning. Critical care time more than 35 minutes. Thank you and we will follow with you. Thanh Duffy MD
[2018-01-07] MEDS: Sodium Chloride 0.9% 1,000 ML IV SCH (06:18)
[2018-01-07 06:55] LABS: INR 1.21; PARTIAL THROMBOPLASTIN TIME 67.9 Seconds (25.1-36.5)
[2018-01-07 07:00] LABS: ALB/GLOB RATIO 0.9 (1.1-1.8); ALBUMIN 2.4 g/dL (3.0-4.8); ALT/SGPT 64 U/L (7-56); AST/SGOT 46 U/L (17-59); BLOOD UREA NITROGEN 9 mg/dL (7-21); CALCIUM 7.6 mg/dL (8.4-10.5); GFR NON-AFRICAN AMERICAN > 60
[2018-01-07 07:02] LABS: BASO # 0.02 K/mm3 (0.0-2.0); BASO % 0.4 % (0.0-3.0); EOS # 0.2 (0.0-0.7); EOS % 4.1 % (1.5-5.0); GRAN # 2.87 (1.4-6.5); GRAN % 62.7 % (50.0-68.0); LYMPH # 1.1 (1.2-3.4); LYMPH % 24.9 % (22.0-35.0); MEAN CELL VOLUME 87.2 fl (80.0-105.0); MEAN CORPUSCULAR HEMOGLOBIN 28.5 pg (25.0-35.0); MEAN CORPUSCULAR HGB CONC 32.7 g/dl (31.0-37.0); MEAN PLATELET VOLUME 9.8 fl (7.0-11.0); MONO # 0.4 (0.1-0.6); MONO % 7.9 % (1.0-6.0); RBC 3.51 10^6/uL (3.5-6.1); RED CELL DISTRIBUTION WIDTH 15.4 % (11.5-14.5); WHITE BLOOD COUNT 4.6 10^3/uL (4.5-11.0)
--- NOTE | 2018-01-07 07:30 | CP.PCM.PN ---
Subjective - Date & Time of Evaluation Date of Evaluation: 01/07/18 Time of Evaluation: 09:00 - Subjective Subjective: Chris Stallings- Internal Medicine Resident- Progress Note on Behalf of Neurology Team Subjective: Patient seen and examined at bedside. No acute events overnight. Patient offers no new complaints at this time. Admits to baseline abdominal pain. Denies headache, confusion, dizziness, acute vision/auditory changes, weakness, focal deficits. Further denies fever, chills, chest pain, SOB. 12 point ROS negative except as indicated in HPI Physical Examination: - Constitutional Appears: No acute distress - Head Exam Head Exam: ATRAUMATIC, NORMOCEPHALIC - Eye Exam Eye Exam: EOMI - ENT Exam ENT Exam: Mucous Membranes Moist - Neck Exam Neck Exam: Full ROM - Respiratory Exam Respiratory Exam: NORMAL BREATHING PATTERN. absent: Accessory Muscle Use, Chest Wall Tenderness - Cardiovascular Exam Cardiovascular Exam: Tachycardia, REGULAR RHYTHM, +S1, +S2 - GI/Abdominal Exam GI & Abdominal Exam: Surgical incision site with staple closure clean, dry, intact - Extremities Exam Extremities Exam: absent: Calf Tenderness, Pedal Edema - Neurological Exam Neurological Exam: Alert, Awake, Oriented x3, no focal neurological deficits - Psychiatric Exam Psychiatric exam: Normal Affect, Normal Mood - Skin Skin Exam: Dry, Warm Assessment and Plan: Patient is 77 year old male with a past medical history of mantle cell lymphoma stage IV, Lung CA s/p wedge resection, CAD with stents, DM, HTN, COPD, perforated sigmoid diverticulitis s/p Rob procedure, s/p colostomy reversal who was admitted to the ICU for complication s/p hartmans reversal. Neurology team was consulted for altered mental status. Acute Encephalopathy - differential is multi-factoral - electrolyte abnormalities vs. infection vs. ICU delirium - 01/07/2018 non-contrast CT scan of the head- No intracranial mass, hemorrhage or evidence of acute infarct. Old left frontal infarct. Postsurgical changes of left frontal sinus. Mild chronic ethmoid sinusitis. Chronic microvascular ischemic change. - 01/07/2018 CTA head and neck ordered and pending - No MRI brain due to history of stents Patient seen, case discussed with, and plan approved by attending physician, Dr. Lake. Objective - Vital Signs/Intake and Output Vital Signs (last 24 hours): Temp Pulse Resp BP Pulse Ox 98.1 F 83 25 H 103/58 L 98 01/07/18 04:00 01/07/18 06:55 01/07/18 06:55 01/07/18 06:00 01/07/18 06:55 - Medications Medications: Current Medications Acetaminophen (Tylenol 325mg Tab) 650 mg PO Q6H PRN PRN Reason: Fever >100.4 F Aspirin (Ecotrin) 81 mg PO DAILY [facility] Last Admin: 01/06/18 09:37 Dose: 81 mg Atorvastatin Calcium (Lipitor) 20 mg PO QPM [facility] Last Admin: 01/06/18 17:43 Dose: 20 mg Clopidogrel Bisulfate (Plavix) 75 mg PO DAILY [facility] Last Admin: 01/06/18 09:37 Dose: 75 mg Ezetimibe (Zetia) 10 mg PO DAILY [facility] Last Admin: 01/06/18 09:38 Dose: 10 mg Furosemide (Lasix) 20 mg PO DAILY [facility] Last Admin: 01/06/18 09:38 Dose: 20 mg Sodium Chloride (Sodium Chloride 0.9%) 1,000 mls @ 50 mls/hr IV .Q20H [facility] Last Admin: 01/07/18 06:18 Dose: 50 mls/hr Heparin Sodium/Sodium Chloride (Heparin 92773 Units/250ml 1/2 Normal Saline) 25,000 units in 250 mls @ 8.274 mls/hr IV .Q24H [facility]; Protocol Last Admin: 01/05/18 17:17 Dose: 9 units/kg/hr, 6.205 mls/hr Insulin Human Regular (Humulin R Low) 0 units SC Q6H [facility]; Protocol Last Admin: 01/06/18 16:27 Dose: Not Given Levalbuterol HCl (Xopenex) 0.63 mg IH TIDRESP [facility] Last Admin: 01/06/18 21:01 Dose: 0.63 mg Metoprolol Tartrate (Lopressor) 25 mg PO DAILY [facility] Last Admin: 01/06/18 09:38 Dose: 25 mg Metoprolol Tartrate (Lopressor) 12.5 mg PO QPM [facility] Last Admin: 01/06/18 17:44 Dose: Not Given Montelukast Sodium (Singulair) 10 mg PO QPM [facility] Last Admin: 01/06/18 17:43 Dose: 10 mg Non-Formulary Medication (Rapaflo) 8 mg PO QPM [facility] Last Admin: 01/06/18 17:43 Dose: 8 mg Non-Formulary Medication (Ranexa) 500 mg PO BID [facility] Last Admin: 01/06/18 17:44 Dose: 500 mg Ondansetron HCl (Zofran Inj) 4 mg IVP Q4H PRN PRN Reason: Nausea/Vomiting Oxybutynin Chloride (Ditropan Tab) 5 mg PO HS [facility] Last Admin: 01/06/18 21:23 Dose: 5 mg Oxycodone/Acetaminophen (Percocet 5/325 Mg Tab) 1 tab PO Q6H PRN PRN Reason: Pain, moderate (4-7) Stop: 01/09/18 14:30 Pantoprazole Sodium (Protonix Inj) 40 mg IVP DAILY [facility] Last Admin: 01/06/18 09:38 Dose: 40 mg - Labs Labs: 01/07/18 05:45 01/07/18 05:45 PT 14.0 SECONDS (9.4-12.5) H 01/07/18 05:45 INR 1.21 01/07/18 05:45 APTT 67.9 Seconds (25.1-36.5) H 01/07/18 05:45
[2018-01-07] MEDS: Levalbuterol 0.63 MG/3 ML Inhal Soln UD IH SCH ×3 (07:39→19:56)
[2018-01-07] MEDS: Heparin25000 units/250ml 1/2NS 25,000 UNITS/250 ML BAG IV SCH (07:45)
[2018-01-07] MEDS: RANEXA 500 MG PO SCH ×2 (09:02→18:41)
--- NOTE | 2018-01-07 09:58 | CP.PCM.PN ---
Subjective - Date & Time of Evaluation Date of Evaluation: 01/07/18 Time of Evaluation: 09:58 - Subjective Subjective: Hematology/Oncology Progress Note (Dr. Myers's Service) Patient seen and assessed at bedside in ICU. No acute events were noted overni t. Patient is scheduled for cardiac cath later today. He denies any further complaints including fevers, chills, headache, chest pain, SOB, N/V/D/C, changes in urine output, or any new skin changes. Objective - Vital Signs/Intake and Output Vital Signs (last 24 hours): Temp Pulse Resp BP Pulse Ox 98.1 F 79 25 H 115/57 L 98 01/07/18 04:00 01/07/18 09:01 01/07/18 06:55 01/07/18 09:01 01/07/18 06:55 Intake and Output: 01/07/18 01/07/18 06:59 18:59 Intake Total 250 Balance 250 - Medications Medications: Current Medications Acetaminophen (Tylenol 325mg Tab) 650 mg PO Q6H PRN PRN Reason: Fever >100.4 F Aspirin (Ecotrin) 81 mg PO DAILY [facility] Last Admin: 01/07/18 09:00 Dose: 81 mg Atorvastatin Calcium (Lipitor) 20 mg PO QPM [facility] Last Admin: 01/06/18 17:43 Dose: 20 mg Clopidogrel Bisulfate (Plavix) 75 mg PO DAILY [facility] Last Admin: 01/07/18 09:00 Dose: 75 mg Ezetimibe (Zetia) 10 mg PO DAILY [facility] Last Admin: 01/07/18 09:00 Dose: 10 mg Furosemide (Lasix) 20 mg PO DAILY [facility] Last Admin: 01/07/18 09:00 Dose: 20 mg Sodium Chloride (Sodium Chloride 0.9%) 1,000 mls @ 50 mls/hr IV .Q20H [facility] Last Admin: 01/07/18 06:18 Dose: 50 mls/hr Heparin Sodium/Sodium Chloride (Heparin 79356 Units/250ml 1/2 Normal Saline) 25,000 units in 250 mls @ 8.274 mls/hr IV .Q24H [facility]; Protocol Last Admin: 01/07/18 07:45 Dose: 9 units/kg/hr, 6.205 mls/hr Insulin Human Regular (Humulin R Low) 0 units SC Q6H [facility]; Protocol Last Admin: 01/06/18 16:27 Dose: Not Given Levalbuterol HCl (Xopenex) 0.63 mg IH TIDRESP [facility] Last Admin: 01/07/18 07:39 Dose: 0.63 mg Metoprolol Tartrate (Lopressor) 25 mg PO DAILY [facility] Last Admin: 01/07/18 09:01 Dose: 25 mg Metoprolol Tartrate (Lopressor) 12.5 mg PO QPM [facility] Last Admin: 01/06/18 17:44 Dose: Not Given Montelukast Sodium (Singulair) 10 mg PO QPM [facility] Last Admin: 01/06/18 17:43 Dose: 10 mg Non-Formulary Medication (Rapaflo) 8 mg PO QPM [facility] Last Admin: 01/06/18 17:43 Dose: 8 mg Non-Formulary Medication (Ranexa) 500 mg PO BID [facility] Last Admin: 01/07/18 09:02 Dose: 500 mg Ondansetron HCl (Zofran Inj) 4 mg IVP Q4H PRN PRN Reason: Nausea/Vomiting Oxybutynin Chloride (Ditropan Tab) 5 mg PO HS [facility] Last Admin: 01/06/18 21:23 Dose: 5 mg Oxycodone/Acetaminophen (Percocet 5/325 Mg Tab) 1 tab PO Q6H PRN PRN Reason: Pain, moderate (4-7) Stop: 01/09/18 14:30 Pantoprazole Sodium (Protonix Inj) 40 mg IVP DAILY [facility] Last Admin: 01/07/18 09:01 Dose: 40 mg - Labs Labs: 01/07/18 05:45 01/07/18 05:45 PT 14.0 SECONDS (9.4-12.5) H 01/07/18 05:45 INR 1.21 01/07/18 05:45 APTT 67.9 Seconds (25.1-36.5) H 01/07/18 05:45 - Additional Findings Additional findings: - Constitutional Appears: Non-toxic, No Acute Distress - Head Exam Head Exam: ATRAUMATIC, NORMOCEPHALIC - Eye Exam Eye Exam: EOMI - ENT Exam ENT Exam: Mucous Membranes Moist - Neck Exam Neck Exam: Full ROM - Respiratory Exam Respiratory Exam: Clear to Ausculation Bilateral, NORMAL BREATHING PATTERN. absent: Accessory Muscle Use, Chest Wall Tenderness, Decreased Breath Sounds, Prolonged Expiratory Phase, Rales, Wheezes, Respiratory Distress, Stridor - Cardiovascular Exam Cardiovascular Exam: RRR, REGULAR RHYTHM, +S1, +S2 - GI/Abdominal Exam GI & Abdominal Exam: Soft, Tenderness, Normal Bowel Sounds. absent: Bruit, Distended, Firm, Guarding, Rigid, Diminished Bowel Sounds, Hernia, Hyperactive Bowel Sounds, Hypoactive Bowel Sounds, Mass, Organomegaly, Pulsatile Mass, Rebound Additional comments: Surgical incision site with thierno noted and without any signs of clinical infection of the surrounding soft tissue; KERI drain with serosanginous drainage noted - Extremities Exam Extremities Exam: absent: Calf Tenderness, Pedal Edema - Neurological Exam Neurological Exam: Alert, Awake, Oriented x3 - Psychiatric Exam Psychiatric exam: Normal Affect, Normal Mood - Skin Skin Exam: Dry, Warm Assessment and Plan - Assessment and Plan (Free Text) Assessment: 77 year old male with a past medical history significant for stage IV mantle cell lymphoma (quiescence), lung cancer s/p wedge resection, hypoglobulinemia, CAD s/p stent placement, DM2, HTN, COPD, and perforated sigmoid diverticulitis s/p Milli procedure who presented with abdominal pain. Plan: 1. S/P Colostomy Reversal -POD #6 -EGD/CSPY report noted -Continue Percocet PRN for pain control -Strict I/O's, OOB to chair and IS -GI and Surgery consulted, all recommendations appreciated 2. Elevated Troponins -Likely secondary to type II PA, per cardio -S/P heparin gtt -Plan for PTCA today (01/07) -Cardiology and Nephrology consulted, all recommendations appreciated 3. Intermittent AMS -CT Head without contrast showed no acute intracranial abnormalities -CTA head and neck pending -Neurology consulted, all recommendations appreciated 4. Normocytic Anemia -H/H stable at 10.0/30.6 -CT abdomen/pelvis without contrast showing no intra-abdominal and/or retroperitoneal hemorrhage -S/P two units of pRBC's -Continue to monitor with daily CBC's 5. History of CAD -Continue ASA, Plavix and Lopressor -Cardiology consulted, all recommendations appreciated 6. History of COPD -Continue Duonebs -Continue Singulair 7. History of BPH -Continue Rapaflo and Oxybutynin 8. History of DM2 -SSI-Low and Accuchecks ACHS GI Prophylaxis: Protonix DVT Prophylaxis: SCD's Diet: Consistent Carbohydrate Code Status: Full code Patient seen and case discussed with attending, Dr. Myers. Mariusz Méndez PGY2
--- NOTE | 2018-01-07 10:34 | CP.CCUPN ---
<Shereen Vogel - Last Filed: 01/07/18 10:30> CCU Subjective - Physician Review Subjective (Free Text): CRITICAL CARE PROGRESS NOTE FOR DR. LAKHWINDER Vogel PGY-1 Pt seen and examined at bedside this am. He has been NPO past midnight for cardiac cath scheduled for this afternoon. He denies any acute complaints today. He denies fevers, chills,headache, dizziness, chest pain, palpitations, shortness of breath, diaphoresis, nausea, vomiting, constipation, diarrhea, dysuria, hematochezia. CCU Objective - Vital Signs / Intake & Output Vital Signs (Last 4 hours): Vital Signs Temp Pulse Resp BP Pulse Ox 01/07/18 10:25 75 21 98 01/07/18 10:00 91 H 23 140/79 100 01/07/18 09:01 79 115/57 L 01/07/18 09:00 84 25 H 115/57 L 99 01/07/18 08:46 115/57 L 01/07/18 08:45 65 23 100 01/07/18 08:00 98 F 74 24 98/49 L 96 01/07/18 07:22 75 01/07/18 06:55 83 25 H 98 Intake and Output (Last 8hrs): Intake & Output 01/06/18 01/07/18 01/07/18 22:59 06:59 14:59 Intake Total 1636 250 Output Total 110 Balance 1526 250 Weight 68.855 kg Intake: IV 676 250 Heparin Drip 76 IVF 600 Oral 960 Output: Drainage 110 Right Abdomen 110 Other: # Voids Urine, Voided 3 # Bowel Movements 3 - Physical Exam Head: Positive for: Atraumatic, Normocephalic Pupils: Positive for: PERRL Extroacular Muscles: Positive for: EOMI Conjunctiva: Positive for: Normal Mouth: Positive for: Dry Neck: Positive for: Normal Range of Motion Respiratory/Chest: Positive for: Clear to Auscultation, Good Air Exchange. Negative for: Respiratory Distress, Accessory Muscle Use Cardiovascular: Positive for: Regular Rate and Rhythm, Normal S1, S2. Negative for: Murmurs Abdomen: Positive for: Tenderness, Other (abdominal dressing place. KERI draining serosanguinous fluid) Back: Positive for: Normal Inspection Upper Extremity: Positive for: Normal Inspection. Negative for: Cyanosis, Edema Lower Extremity: Positive for: Normal Inspection. Negative for: Edema Neurological: Positive for: GCS=15, CN II-XII Intact, Speech Normal Skin: Positive for: Warm, Dry, Normal Color. Negative for: Rashes Psychiatric: Positive for: Alert, Oriented x 3, Normal Insight, Normal Concentration - Medications Active Medications: Active Medications Generic Name Dose Route Start Last Admin Trade Name Freq PRN Reason Stop Dose Admin Acetaminophen 650 mg 12/30/17 17:54 Tylenol 325mg Tab PO Q6H PRN Fever >100.4 F Aspirin 81 mg 01/04/18 10:00 01/07/18 09:00 Ecotrin PO 81 mg DAILY ALEX Administration Atorvastatin Calcium 20 mg 01/05/18 18:00 01/06/18 17:43 Lipitor PO 20 mg QPM ALEX Administration Clopidogrel Bisulfate 75 mg 01/05/18 10:00 01/07/18 09:00 Plavix PO 75 mg DAILY ALEX Administration Ezetimibe 10 mg 01/05/18 12:00 01/07/18 09:00 Zetia PO 10 mg DAILY ALEX Administration Furosemide 20 mg 01/05/18 12:00 01/07/18 09:00 Lasix PO 20 mg DAILY ALEX Administration Sodium Chloride 1,000 mls @ 50 mls/hr 01/03/18 08:00 01/07/18 06:18 Sodium Chloride 0.9% IV 50 mls/hr .Q20H ALEX Administration Heparin Sodium/Sodium Chloride 25,000 units in 250 mls @ 8.274 mls/hr 01/04/18 09:30 01/07/18 07:45 Heparin 95153 Units/250ml 1/2 Normal Saline IV 9 units/kg/hr .Q24H ALEX 6.205 mls/hr Administration Protocol 12 UNITS/KG/HR Insulin Human Regular 0 units 01/03/18 16:15 01/06/18 16:27 Humulin R Low SC Not Given Q6H ALEX Protocol Levalbuterol HCl 0.63 mg 01/05/18 14:00 01/07/18 07:39 Xopenex IH 0.63 mg TIDRESP ALEX Administration Metoprolol Tartrate 25 mg 12/31/17 10:00 01/07/18 09:01 Lopressor PO 25 mg DAILY ALEX Administration Metoprolol Tartrate 12.5 mg 12/30/17 18:00 01/06/18 17:44 Lopressor PO Not Given QPM ALEX Montelukast Sodium 10 mg 12/30/17 18:00 01/06/18 17:43 Singulair PO 10 mg QPM ALEX Administration Non-Formulary Medication 8 mg 12/30/17 19:26 01/06/18 17:43 Rapaflo PO 8 mg QPM ALEX Administration Non-Formulary Medication 500 mg 12/30/17 19:28 01/07/18 09:02 Ranexa PO 500 mg BID ALEX Administration Ondansetron HCl 4 mg 01/01/18 13:58 Zofran Inj IVP Q4H PRN Nausea/Vomiting Oxybutynin Chloride 5 mg 12/30/17 22:00 01/06/18 21:23 Ditropan Tab PO 5 mg HS ALEX Administration Oxycodone/Acetaminophen 1 tab 01/06/18 14:29 Percocet 5/325 Mg Tab PO 01/09/18 14:30 Q6H PRN Pain, moderate (4-7) Pantoprazole Sodium 40 mg 01/03/18 10:00 01/07/18 09:01 Protonix Inj IVP 40 mg DAILY ALEX Administration - Patient Studies Lab Studies: Microbiology Studies 01/01/18 19:47 Blood Culture - Final Blood NO GROWTH AFTER 5 DAYS Gram Stain - Final TEST NOT PERFORMED 01/01/18 19:47 Blood Culture - Final Blood NO GROWTH AFTER 5 DAYS Gram Stain - Final TEST NOT PERFORMED Lab Studies 01/07/18 01/07/18 01/07/18 Range/Units 05:45 05:45 05:45 WBC 4.6 (4.5-11.0) 10^3/uL RBC 3.51 (3.5-6.1) 10^6/uL Hgb 10.0 L (14.0-18.0) g/dL Hct 30.6 L (42.0-52.0) % MCV 87.2 (80.0-105.0) fl MCH 28.5 (25.0-35.0) pg MCHC 32.7 (31.0-37.0) g/dl RDW 15.4 H (11.5-14.5) % Plt Count 141 (120.0-450.0) 10^3/uL MPV 9.8 (7.0-11.0) fl Gran % 62.7 (50.0-68.0) % Lymph % (Auto) 24.9 (22.0-35.0) % [place] % (Auto) 7.9 H (1.0-6.0) % Eos % (Auto) 4.1 (1.5-5.0) % Baso % (Auto) 0.4 (0.0-3.0) % Gran # 2.87 (1.4-6.5) Lymph # (Auto) 1.1 L (1.2-3.4) [place] # (Auto) 0.4 (0.1-0.6) Eos # (Auto) 0.2 (0.0-0.7) Baso # (Auto) 0.02 (0.0-2.0) K/mm3 PT 14.0 H (9.4-12.5) SECONDS INR 1.21 APTT 67.9 H (25.1-36.5) Seconds Sodium 136 (132-148) mmol/L Potassium 3.4 L (3.6-5.0) mmol/L Chloride 104 (98-107) mmol/L Carbon Dioxide 26 (21-33) mmol/L Anion Gap 9 L (10-20) BUN 9 (7-21) mg/dL Creatinine 0.8 (0.8-1.5) mg/dl Est GFR ( Amer) > 60 Est GFR (Non-Af Amer) > 60 POC Glucose (mg/dL) (65-110) mg/dL Random Glucose 102 (70-110) mg/dL Calcium 7.6 L (8.4-10.5) mg/dL Phosphorus 2.9 (2.5-4.5) mg/dL Magnesium 1.7 (1.7-2.2) mg/dL Total Bilirubin 2.1 H (0.2-1.3) mg/dL AST 46 (17-59) U/L ALT 64 H (7-56) U/L Alkaline Phosphatase 115 (38-126) U/L Total Protein 5.1 L (5.8-8.3) g/dL Albumin 2.4 L (3.0-4.8) g/dL Globulin 2.7 gm/dL Albumin/Globulin Ratio 0.9 L (1.1-1.8) Stool Occult Blood (NEGATIVE) Crossmatch 01/07/18 01/06/18 01/06/18 Range/Units 04:18 21:28 16:10 WBC (4.5-11.0) 10^3/uL RBC (3.5-6.1) 10^6/uL Hgb (14.0-18.0) g/dL Hct (42.0-52.0) % MCV (80.0-105.0) fl MCH (25.0-35.0) pg MCHC (31.0-37.0) g/dl RDW (11.5-14.5) % Plt Count (120.0-450.0) 10^3/uL MPV (7.0-11.0) fl Gran % (50.0-68.0) % Lymph % (Auto) (22.0-35.0) % [place] % (Auto) (1.0-6.0) % Eos % (Auto) (1.5-5.0) % Baso % (Auto) (0.0-3.0) % Gran # (1.4-6.5) Lymph # (Auto) (1.2-3.4) [place] # (Auto) (0.1-0.6) Eos # (Auto) (0.0-0.7) Baso # (Auto) (0.0-2.0) K/mm3 PT (9.4-12.5) SECONDS INR APTT (25.1-36.5) Seconds Sodium (132-148) mmol/L Potassium (3.6-5.0) mmol/L Chloride (98-107) mmol/L Carbon Dioxide (21-33) mmol/L Anion Gap (10-20) BUN (7-21) mg/dL Creatinine (0.8-1.5) mg/dl Est GFR ( Amer) Est GFR (Non-Af Amer) POC Glucose (mg/dL) 105 118 H 107 (65-110) mg/dL Random Glucose (70-110) mg/dL Calcium (8.4-10.5) mg/dL Phosphorus (2.5-4.5) mg/dL Magnesium (1.7-2.2) mg/dL Total Bilirubin (0.2-1.3) mg/dL AST (17-59) U/L ALT (7-56) U/L Alkaline Phosphatase (38-126) U/L Total Protein (5.8-8.3) g/dL Albumin (3.0-4.8) g/dL Globulin gm/dL Albumin/Globulin Ratio (1.1-1.8) Stool Occult Blood (NEGATIVE) Crossmatch 01/06/18 01/06/18 01/06/18 Range/Units 11:16 10:00 07:22 WBC (4.5-11.0) 10^3/uL RBC (3.5-6.1) 10^6/uL Hgb (14.0-18.0) g/dL Hct (42.0-52.0) % MCV (80.0-105.0) fl MCH (25.0-35.0) pg MCHC (31.0-37.0) g/dl RDW (11.5-14.5) % Plt Count (120.0-450.0) 10^3/uL MPV (7.0-11.0) fl Gran % (50.0-68.0) % Lymph % (Auto) (22.0-35.0) % [place] % (Auto) (1.0-6.0) % Eos % (Auto) (1.5-5.0) % Baso % (Auto) (0.0-3.0) % Gran # (1.4-6.5) Lymph # (Auto) (1.2-3.4) [place] # (Auto) (0.1-0.6) Eos # (Auto) (0.0-0.7) Baso # (Auto) (0.0-2.0) K/mm3 PT (9.4-12.5) SECONDS INR APTT (25.1-36.5) Seconds Sodium (132-148) mmol/L Potassium (3.6-5.0) mmol/L Chloride (98-107) mmol/L Carbon Dioxide (21-33) mmol/L Anion Gap (10-20) BUN (7-21) mg/dL Creatinine (0.8-1.5) mg/dl Est GFR ( Amer) Est GFR (Non-Af Amer) POC Glucose (mg/dL) 170 H 125 H (65-110) mg/dL Random Glucose (70-110) mg/dL Calcium (8.4-10.5) mg/dL Phosphorus (2.5-4.5) mg/dL Magnesium (1.7-2.2) mg/dL Total Bilirubin (0.2-1.3) mg/dL AST (17-59) U/L ALT (7-56) U/L Alkaline Phosphatase (38-126) U/L Total Protein (5.8-8.3) g/dL Albumin (3.0-4.8) g/dL Globulin gm/dL Albumin/Globulin Ratio (1.1-1.8) Stool Occult Blood Negative (NEGATIVE) Crossmatch 01/03/18 Range/Units 16:00 WBC (4.5-11.0) 10^3/uL RBC (3.5-6.1) 10^6/uL Hgb (14.0-18.0) g/dL Hct (42.0-52.0) % MCV (80.0-105.0) fl MCH (25.0-35.0) pg MCHC (31.0-37.0) g/dl RDW (11.5-14.5) % Plt Count (120.0-450.0) 10^3/uL MPV (7.0-11.0) fl Gran % (50.0-68.0) % Lymph % (Auto) (22.0-35.0) % [place] % (Auto) (1.0-6.0) % Eos % (Auto) (1.5-5.0) % Baso % (Auto) (0.0-3.0) % Gran # (1.4-6.5) Lymph # (Auto) (1.2-3.4) [place] # (Auto) (0.1-0.6) Eos # (Auto) (0.0-0.7) Baso # (Auto) (0.0-2.0) K/mm3 PT (9.4-12.5) SECONDS INR APTT (25.1-36.5) Seconds Sodium (132-148) mmol/L Potassium (3.6-5.0) mmol/L Chloride (98-107) mmol/L Carbon Dioxide (21-33) mmol/L Anion Gap (10-20) BUN (7-21) mg/dL Creatinine (0.8-1.5) mg/dl Est GFR ( Amer) Est GFR (Non-Af Amer) POC Glucose (mg/dL) (65-110) mg/dL Random Glucose (70-110) mg/dL Calcium (8.4-10.5) mg/dL Phosphorus (2.5-4.5) mg/dL Magnesium (1.7-2.2) mg/dL Total Bilirubin (0.2-1.3) mg/dL AST (17-59) U/L ALT (7-56) U/L Alkaline Phosphatase (38-126) U/L Total Protein (5.8-8.3) g/dL Albumin (3.0-4.8) g/dL Globulin gm/dL Albumin/Globulin Ratio (1.1-1.8) Stool Occult Blood (NEGATIVE) Crossmatch See Detail Laboratory Results - last 24 hr 01/03/18 01/06/18 01/06/18 16:00 07:22 10:00 WBC RBC Hgb Hct MCV MCH MCHC RDW Plt Count MPV Gran % Lymph % (Auto) [place] % (Auto) Eos % (Auto) Baso % (Auto) Gran # Lymph # (Auto) [place] # (Auto) Eos # (Auto) Baso # (Auto) PT INR APTT Sodium Potassium Chloride Carbon Dioxide Anion Gap BUN Creatinine Est GFR ( Amer) Est GFR (Non-Af Amer) POC Glucose (mg/dL) 125 H Random Glucose Calcium Phosphorus Magnesium Total Bilirubin AST ALT Alkaline Phosphatase Total Protein Albumin Globulin Albumin/Globulin Ratio Stool Occult Blood Negative Crossmatch See Detail 01/06/18 01/06/18 01/06/18 11:16 16:10 21:28 WBC RBC Hgb Hct MCV MCH MCHC RDW Plt Count MPV Gran % Lymph % (Auto) [place] % (Auto) Eos % (Auto) Baso % (Auto) Gran # Lymph # (Auto) [place] # (Auto) Eos # (Auto) Baso # (Auto) PT INR APTT Sodium Potassium Chloride Carbon Dioxide Anion Gap BUN Creatinine Est GFR ( Amer) Est GFR (Non-Af Amer) POC Glucose (mg/dL) 170 H 107 118 H Random Glucose Calcium Phosphorus Magnesium Total Bilirubin AST ALT Alkaline Phosphatase Total Protein Albumin Globulin Albumin/Globulin Ratio Stool Occult Blood Crossmatch 01/07/18 01/07/18 01/07/18 04:18 05:45 05:45 WBC 4.6 RBC 3.51 Hgb 10.0 L Hct 30.6 L MCV 87.2 MCH 28.5 MCHC 32.7 RDW 15.4 H Plt Count 141 MPV 9.8 Gran % 62.7 Lymph % (Auto) 24.9 [place] % (Auto) 7.9 H Eos % (Auto) 4.1 Baso % (Auto) 0.4 Gran # 2.87 Lymph # (Auto) 1.1 L [place] # (Auto) 0.4 Eos # (Auto) 0.2 Baso # (Auto) 0.02 PT 14.0 H INR 1.21 APTT 67.9 H Sodium Potassium Chloride Carbon Dioxide Anion Gap BUN Creatinine Est GFR ( Amer) Est GFR (Non-Af Amer) POC Glucose (mg/dL) 105 Random Glucose Calcium Phosphorus Magnesium Total Bilirubin AST ALT Alkaline Phosphatase Total Protein Albumin Globulin Albumin/Globulin Ratio Stool Occult Blood Crossmatch 01/07/18 05:45 WBC RBC Hgb Hct MCV MCH MCHC RDW Plt Count MPV Gran % Lymph % (Auto) [place] % (Auto) Eos % (Auto) Baso % (Auto) Gran # Lymph # (Auto) [place] # (Auto) Eos # (Auto) Baso # (Auto) PT INR APTT Sodium 136 Potassium 3.4 L Chloride 104 Carbon Dioxide 26 Anion Gap 9 L BUN 9 Creatinine 0.8 Est GFR ( Amer) > 60 Est GFR (Non-Af Amer) > 60 POC Glucose (mg/dL) Random Glucose 102 Calcium 7.6 L Phosphorus 2.9 Magnesium 1.7 Total Bilirubin 2.1 H AST 46 ALT 64 H Alkaline Phosphatase 115 Total Protein 5.1 L Albumin 2.4 L Globulin 2.7 Albumin/Globulin Ratio 0.9 L Stool Occult Blood Crossmatch Fingerstick Blood Sugar Results: 105 Review of Systems - Review of Systems Review of Systems: per HPI Critical Care Progress Note - Nutrition Nutrition: Nutrition Category Date Time Status Liquid Diet [DIET] Diets 01/04/18 Lunch Ordered Assessment/Plan - Assessment and Plan (Free Text) Assessment: 77 y/o M with PMHx of perforated diverticulitis s/p nishant procedure, s/p colostomy reversal, stage 4 mantle cell lymphoma, lung ca s/p wedge resection, cad s/p stents x 4, dm, htn, copd admitted to ICU for post-operative respiratory failure s/p extubation. Rapid response was called in PACU as patient was unresponsive and not breathing. He was found to be in hypercapnic respiratory acidosis. He was subsequently sedated, intubated and placed on ventilator. Patient is now s/p extubation and currently being monitored monitored in ICU on minimal O2 supplementation. Pt had an increase in troponins, was subsequently placed on heparin drip, aspirin and plavix. Pt to undrego cardiac cath on 01/07/18 Plan: Neuro: Alert, awake & oriented x 3 No FND Conversing Cardio: Pt to undergo cardiac cath today. F/u cardiology recs. Has been NPO past midnight Normotensive Currently on aspirin, plavix, heparin, home ranexa Echo revealed no wall motion abnormalities continue metoprolol 25 mg maintain map >65 HR controlled Pulmonary Home montelukast, xopenox Home lasix Encourage early mobilization Pulmonary toilet Chest PT Incentive spirometry OOB to chair physical therapy hob elevated to 35 degrees oral hygiene SaO2 sat >90% GI: s/p colostomy reversal abdominal dressing in place KERI draining serosanguinous fluid has been NPO past midnight. Previously tolerated diet. followed by surgery team, appreciate recs : Monitor I/Os closely replete electrolytes as needed maintain euvolemia Heme: H/H stable Transfuse prn per surgery recs Dispo: Pt awake, alert and oriented x 3. He has been NPO since midnight. No acute complaints this am. His vital signs are stable. He is hemodynamically stable. He has been anticoagulated with heparin, aspirin and plavix. He is scheduled to undergo cardiac cath today. We will follow-up with cardiology recommendations post-procedure Case seen, examined and discussed with attending physician, Dr. Carroll <Jose Guadalupe Carroll - Last Filed: 01/07/18 13:43> CCU Objective - Vital Signs / Intake & Output Vital Signs (Last 4 hours): Vital Signs Pulse Resp BP Pulse Ox 01/07/18 10:25 75 21 98 01/07/18 10:00 91 H 23 140/79 100 Intake and Output (Last 8hrs): Intake & Output 01/06/18 01/07/18 01/07/18 22:59 06:59 14:59 Intake Total 1636 250 Output Total 110 90 Balance 1526 160 Weight 151 lb 12.8 oz Intake: IV 676 250 Heparin Drip 76 IVF 600 Oral 960 Output: Drainage 110 90 Right Abdomen 110 90 Other: # Voids Urine, Voided 3 # Bowel Movements 3 - Medications Active Medications: Active Medications Generic Name Dose Route Start Last Admin Trade Name Freq PRN Reason Stop Dose Admin Acetaminophen 650 mg 12/30/17 17:54 Tylenol 325mg Tab PO Q6H PRN Fever >100.4 F Aspirin 81 mg 01/04/18 10:00 01/07/18 09:00 Ecotrin PO 81 mg DAILY ALEX Administration Atorvastatin Calcium 20 mg 01/05/18 18:00 01/06/18 17:43 Lipitor PO 20 mg QPM ALEX Administration Clopidogrel Bisulfate 75 mg 01/05/18 10:00 01/07/18 09:00 Plavix PO 75 mg DAILY ALEX Administration Ezetimibe 10 mg 01/05/18 12:00 01/07/18 09:00 Zetia PO 10 mg DAILY ALEX Administration Furosemide 20 mg 01/05/18 12:00 01/07/18 09:00 Lasix PO 20 mg DAILY ALEX Administration Sodium Chloride 1,000 mls @ 50 mls/hr 01/03/18 08:00 01/07/18 06:18 Sodium Chloride 0.9% IV 50 mls/hr .Q20H ALEX Administration Heparin Sodium/Sodium Chloride 25,000 units in 250 mls @ 8.274 mls/hr 01/04/18 09:30 01/07/18 07:45 Heparin 39071 Units/250ml 1/2 Normal Saline IV 9 units/kg/hr .Q24H ALEX 6.205 mls/hr Administration Protocol 12 UNITS/KG/HR Insulin Human Regular 0 units 01/03/18 16:15 01/07/18 12:07 Humulin R Low SC Not Given Q6H ALEX Protocol Levalbuterol HCl 0.63 mg 01/05/18 14:00 01/07/18 13:12 Xopenex IH 0.63 mg TIDRESP ALEX Administration Metoprolol Tartrate 25 mg 12/31/17 10:00 01/07/18 09:01 Lopressor PO 25 mg DAILY ALEX Administration Metoprolol Tartrate 12.5 mg 12/30/17 18:00 01/06/18 17:44 Lopressor PO Not Given QPM ALEX Montelukast Sodium 10 mg 12/30/17 18:00 01/06/18 17:43 Singulair PO 10 mg QPM ALEX Administration Non-Formulary Medication 8 mg 12/30/17 19:26 01/06/18 17:43 Rapaflo PO 8 mg QPM ALEX Administration Non-Formulary Medication 500 mg 12/30/17 19:28 01/07/18 09:02 Ranexa PO 500 mg BID ALEX Administration Ondansetron HCl 4 mg 01/01/18 13:58 Zofran Inj IVP Q4H PRN Nausea/Vomiting Oxybutynin Chloride 5 mg 12/30/17 22:00 01/06/18 21:23 Ditropan Tab PO 5 mg HS ALEX Administration Oxycodone/Acetaminophen 1 tab 01/06/18 14:29 Percocet 5/325 Mg Tab PO 01/09/18 14:30 Q6H PRN Pain, moderate (4-7) Pantoprazole Sodium 40 mg 01/03/18 10:00 01/07/18 09:01 Protonix Inj IVP 40 mg DAILY ALEX Administration - Patient Studies Lab Studies: Microbiology Studies 01/01/18 19:47 Blood Culture - Final Blood NO GROWTH AFTER 5 DAYS Gram Stain - Final TEST NOT PERFORMED 01/01/18 19:47 Blood Culture - Final Blood NO GROWTH AFTER 5 DAYS Gram Stain - Final TEST NOT PERFORMED Lab Studies 01/07/18 01/07/18 01/07/18 Range/Units 05:45 05:45 05:45 WBC 4.6 (4.5-11.0) 10^3/uL RBC 3.51 (3.5-6.1) 10^6/uL Hgb 10.0 L (14.0-18.0) g/dL Hct 30.6 L (42.0-52.0) % MCV 87.2 (80.0-105.0) fl MCH 28.5 (25.0-35.0) pg MCHC 32.7 (31.0-37.0) g/dl RDW 15.4 H (11.5-14.5) % Plt Count 141 (120.0-450.0) 10^3/uL MPV 9.8 (7.0-11.0) fl Gran % 62.7 (50.0-68.0) % Lymph % (Auto) 24.9 (22.0-35.0) % [place] % (Auto) 7.9 H (1.0-6.0) % Eos % (Auto) 4.1 (1.5-5.0) % Baso % (Auto) 0.4 (0.0-3.0) % Gran # 2.87 (1.4-6.5) Lymph # (Auto) 1.1 L (1.2-3.4) [place] # (Auto) 0.4 (0.1-0.6) Eos # (Auto) 0.2 (0.0-0.7) Baso # (Auto) 0.02 (0.0-2.0) K/mm3 PT 14.0 H (9.4-12.5) SECONDS INR 1.21 APTT 67.9 H (25.1-36.5) Seconds Sodium 136 (132-148) mmol/L Potassium 3.4 L (3.6-5.0) mmol/L Chloride 104 (98-107) mmol/L Carbon Dioxide 26 (21-33) mmol/L Anion Gap 9 L (10-20) BUN 9 (7-21) mg/dL Creatinine 0.8 (0.8-1.5) mg/dl Est GFR ( Amer) > 60 Est GFR (Non-Af Amer) > 60 POC Glucose (mg/dL) (65-110) mg/dL Random Glucose 102 (70-110) mg/dL Calcium 7.6 L (8.4-10.5) mg/dL Phosphorus 2.9 (2.5-4.5) mg/dL Magnesium 1.7 (1.7-2.2) mg/dL Total Bilirubin 2.1 H (0.2-1.3) mg/dL AST 46 (17-59) U/L ALT 64 H (7-56) U/L Alkaline Phosphatase 115 (38-126) U/L Total Protein 5.1 L (5.8-8.3) g/dL Albumin 2.4 L (3.0-4.8) g/dL Globulin 2.7 gm/dL Albumin/Globulin Ratio 0.9 L (1.1-1.8) Crossmatch 01/07/18 01/06/18 01/06/18 Range/Units 04:18 21:28 16:10 WBC (4.5-11.0) 10^3/uL RBC (3.5-6.1) 10^6/uL Hgb (14.0-18.0) g/dL Hct (42.0-52.0) % MCV (80.0-105.0) fl MCH (25.0-35.0) pg MCHC (31.0-37.0) g/dl RDW (11.5-14.5) % Plt Count (120.0-450.0) 10^3/uL MPV (7.0-11.0) fl Gran % (50.0-68.0) % Lymph % (Auto) (22.0-35.0) % [place] % (Auto) (1.0-6.0) % Eos % (Auto) (1.5-5.0) % Baso % (Auto) (0.0-3.0) % Gran # (1.4-6.5) Lymph # (Auto) (1.2-3.4) [place] # (Auto) (0.1-0.6) Eos # (Auto) (0.0-0.7) Baso # (Auto) (0.0-2.0) K/mm3 PT (9.4-12.5) SECONDS INR APTT (25.1-36.5) Seconds Sodium (132-148) mmol/L Potassium (3.6-5.0) mmol/L Chloride (98-107) mmol/L Carbon Dioxide (21-33) mmol/L Anion Gap (10-20) BUN (7-21) mg/dL Creatinine (0.8-1.5) mg/dl Est GFR ( Amer) Est GFR (Non-Af Amer) POC Glucose (mg/dL) 105 118 H 107 (65-110) mg/dL Random Glucose (70-110) mg/dL Calcium (8.4-10.5) mg/dL Phosphorus (2.5-4.5) mg/dL Magnesium (1.7-2.2) mg/dL Total Bilirubin (0.2-1.3) mg/dL AST (17-59) U/L ALT (7-56) U/L Alkaline Phosphatase (38-126) U/L Total Protein (5.8-8.3) g/dL Albumin (3.0-4.8) g/dL Globulin gm/dL Albumin/Globulin Ratio (1.1-1.8) Crossmatch 01/06/18 01/06/18 01/03/18 Range/Units 11:16 07:22 16:00 WBC (4.5-11.0) 10^3/uL RBC (3.5-6.1) 10^6/uL Hgb (14.0-18.0) g/dL Hct (42.0-52.0) % MCV (80.0-105.0) fl MCH (25.0-35.0) pg MCHC (31.0-37.0) g/dl RDW (11.5-14.5) % Plt Count (120.0-450.0) 10^3/uL MPV (7.0-11.0) fl Gran % (50.0-68.0) % Lymph % (Auto) (22.0-35.0) % [place] % (Auto) (1.0-6.0) % Eos % (Auto) (1.5-5.0) % Baso % (Auto) (0.0-3.0) % Gran # (1.4-6.5) Lymph # (Auto) (1.2-3.4) [place] # (Auto) (0.1-0.6) Eos # (Auto) (0.0-0.7) Baso # (Auto) (0.0-2.0) K/mm3 PT (9.4-12.5) SECONDS INR APTT (25.1-36.5) Seconds Sodium (132-148) mmol/L Potassium (3.6-5.0) mmol/L Chloride (98-107) mmol/L Carbon Dioxide (21-33) mmol/L Anion Gap (10-20) BUN (7-21) mg/dL Creatinine (0.8-1.5) mg/dl Est GFR ( Amer) Est GFR (Non-Af Amer) POC Glucose (mg/dL) 170 H 125 H (65-110) mg/dL Random Glucose (70-110) mg/dL Calcium (8.4-10.5) mg/dL Phosphorus (2.5-4.5) mg/dL Magnesium (1.7-2.2) mg/dL Total Bilirubin (0.2-1.3) mg/dL AST (17-59) U/L ALT (7-56) U/L Alkaline Phosphatase (38-126) U/L Total Protein (5.8-8.3) g/dL Albumin (3.0-4.8) g/dL Globulin gm/dL Albumin/Globulin Ratio (1.1-1.8) Crossmatch See Detail Laboratory Results - last 24 hr 01/03/18 01/06/18 01/06/18 16:00 07:22 11:16 WBC RBC Hgb Hct MCV MCH MCHC RDW Plt Count MPV Gran % Lymph % (Auto) [place] % (Auto) Eos % (Auto) Baso % (Auto) Gran # Lymph # (Auto) [place] # (Auto) Eos # (Auto) Baso # (Auto) PT INR APTT Sodium Potassium Chloride Carbon Dioxide Anion Gap BUN Creatinine Est GFR ( Amer) Est GFR (Non-Af Amer) POC Glucose (mg/dL) 125 H 170 H Random Glucose Calcium Phosphorus Magnesium Total Bilirubin AST ALT Alkaline Phosphatase Total Protein Albumin Globulin Albumin/Globulin Ratio Crossmatch See Detail 01/06/18 01/06/18 01/07/18 16:10 21:28 04:18 WBC RBC Hgb Hct MCV MCH MCHC RDW Plt Count MPV Gran % Lymph % (Auto) [place] % (Auto) Eos % (Auto) Baso % (Auto) Gran # Lymph # (Auto) [place] # (Auto) Eos # (Auto) Baso # (Auto) PT INR APTT Sodium Potassium Chloride Carbon Dioxide Anion Gap BUN Creatinine Est GFR ( Amer) Est GFR (Non-Af Amer) POC Glucose (mg/dL) 107 118 H 105 Random Glucose Calcium Phosphorus Magnesium Total Bilirubin AST ALT Alkaline Phosphatase Total Protein Albumin Globulin Albumin/Globulin Ratio Crossmatch 01/07/18 01/07/18 01/07/18 05:45 05:45 05:45 WBC 4.6 RBC 3.51 Hgb 10.0 L Hct 30.6 L MCV 87.2 MCH 28.5 MCHC 32.7 RDW 15.4 H Plt Count 141 MPV 9.8 Gran % 62.7 Lymph % (Auto) 24.9 [place] % (Auto) 7.9 H Eos % (Auto) 4.1 Baso % (Auto) 0.4 Gran # 2.87 Lymph # (Auto) 1.1 L [place] # (Auto) 0.4 Eos # (Auto) 0.2 Baso # (Auto) 0.02 PT 14.0 H INR 1.21 APTT 67.9 H Sodium 136 Potassium 3.4 L Chloride 104 Carbon Dioxide 26 Anion Gap 9 L BUN 9 Creatinine 0.8 Est GFR ( Amer) > 60 Est GFR (Non-Af Amer) > 60 POC Glucose (mg/dL) Random Glucose 102 Calcium 7.6 L Phosphorus 2.9 Magnesium 1.7 Total Bilirubin 2.1 H AST 46 ALT 64 H Alkaline Phosphatase 115 Total Protein 5.1 L Albumin 2.4 L Globulin 2.7 Albumin/Globulin Ratio 0.9 L Crossmatch Critical Care Progress Note - Nutrition Nutrition: Nutrition Category Date Time Status Consistent Carbohydrate [DIET] Diets 01/07/18 Dinner Ordered Liquid Diet [DIET] Diets 01/04/18 Lunch Ordered Assessment/Plan - Assessment and Plan (Free Text) Plan: Patient seen and examined on rounds with resident, agree with note with following additions/exceptions: Patient is 77yo male with PMhx mantle cell lymphoma stage IV, Lung CA s/p wedge resection, CAD with stents, DM, HTN, COPD, perforated sigmoid diverticulitis s/p Nishant procedure, s/p colostomy reversal, with respiratory failure, which has resolved, extubated, doing well on 2LNC, awake, alert in NAD. Surgery, GI, Cardiology following Labs imaging, chart reviewed Troponin downtrending NO CP, SOB HH stable Awaiting cardiac Cath today Respiratory failure, resolved Hx Lymphoma Hx of Lung Ca CAD DM HTN COPD Leukocytosis s/p colostomy reversal Elevated Troponin, NSTEMI Anemia Recommend: - cont with supp o2, goal sat 90%, duonebs PRN - follow up ID, abx as per ID - BP control - DC IVF - DC Heparin - Pain control - monitor HH - ASA, Plavix as per cardiology - Cardiac cath today - replete K, Mg - follow up heme onc - follow up surgery - GI ppx - DVT ppx, HSQ - Monitor in MICU
--- NOTE | 2018-01-07 11:25 | CT ---
Date of service: 01/07/2018 PROCEDURE: CT HEAD WITHOUT CONTRAST. HISTORY: AMS COMPARISON: None available. TECHNIQUE: Axial computed tomography images were obtained through the head/brain without intravenous contrast. Radiation dose: Total exam DLP = 969.63 mGy-cm. This CT exam was performed using one or more of the following dose reduction techniques: Automated exposure control, adjustment of the mA and/or kV according to patient size, and/or use of iterative reconstruction technique. FINDINGS: HEMORRHAGE: No intracranial hemorrhage. BRAIN: No mass effect or edema. 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 No evidence of acute infarct. Patchy and confluent moderate periventricular and deep/subcortical white matter lucency consistent with microvascular ischemic change. VENTRICLES: Unremarkable. No hydrocephalus. CALVARIUM: Postoperative changes of left frontal calvarium likely the result of prior sinus surgery. PARANASAL SINUSES: Mild chronic ethmoid sinusitis. No evidence of acute sinusitis. MASTOID AIR CELLS: Unremarkable as visualized. No inflammatory changes. OTHER FINDINGS: None. IMPRESSION: No intracranial mass, hemorrhage or evidence of acute infarct. Old left frontal infarct. Postsurgical changes of left frontal sinus. Mild chronic ethmoid sinusitis. Chronic microvascular ischemic change.
--- NOTE | 2018-01-07 11:42 | CP.PCM.PN ---
Subjective - Date & Time of Evaluation Date of Evaluation: 01/07/18 Time of Evaluation: 07:00 - Subjective Subjective: Surgery: Dr. Pabon Patient reports mild pain to abdomen. He reports watery bowel movements. Tolerating diet, NPO pmn for possible heart cath today per ICU. Objective - Vital Signs/Intake and Output Vital Signs (last 24 hours): Temp Pulse Resp BP Pulse Ox 98 F 75 21 140/79 98 01/07/18 08:00 01/07/18 10:25 01/07/18 10:25 01/07/18 10:00 01/07/18 10:25 Intake and Output: 01/07/18 01/07/18 06:59 18:59 Intake Total 250 Balance 250 - Medications Medications: Current Medications Acetaminophen (Tylenol 325mg Tab) 650 mg PO Q6H PRN PRN Reason: Fever >100.4 F Aspirin (Ecotrin) 81 mg PO DAILY [facility] Last Admin: 01/07/18 09:00 Dose: 81 mg Atorvastatin Calcium (Lipitor) 20 mg PO QPM [facility] Last Admin: 01/06/18 17:43 Dose: 20 mg Clopidogrel Bisulfate (Plavix) 75 mg PO DAILY [facility] Last Admin: 01/07/18 09:00 Dose: 75 mg Ezetimibe (Zetia) 10 mg PO DAILY [facility] Last Admin: 01/07/18 09:00 Dose: 10 mg Furosemide (Lasix) 20 mg PO DAILY [facility] Last Admin: 01/07/18 09:00 Dose: 20 mg Sodium Chloride (Sodium Chloride 0.9%) 1,000 mls @ 50 mls/hr IV .Q20H [facility] Last Admin: 01/07/18 06:18 Dose: 50 mls/hr Heparin Sodium/Sodium Chloride (Heparin 00450 Units/250ml 1/2 Normal Saline) 25,000 units in 250 mls @ 8.274 mls/hr IV .Q24H [facility]; Protocol Last Admin: 01/07/18 07:45 Dose: 9 units/kg/hr, 6.205 mls/hr Insulin Human Regular (Humulin R Low) 0 units SC Q6H [facility]; Protocol Last Admin: 01/06/18 16:27 Dose: Not Given Levalbuterol HCl (Xopenex) 0.63 mg IH TIDRESP [facility] Last Admin: 01/07/18 07:39 Dose: 0.63 mg Metoprolol Tartrate (Lopressor) 25 mg PO DAILY [facility] Last Admin: 01/07/18 09:01 Dose: 25 mg Metoprolol Tartrate (Lopressor) 12.5 mg PO QPM [facility] Last Admin: 01/06/18 17:44 Dose: Not Given Montelukast Sodium (Singulair) 10 mg PO QPM [facility] Last Admin: 01/06/18 17:43 Dose: 10 mg Non-Formulary Medication (Rapaflo) 8 mg PO QPM [facility] Last Admin: 01/06/18 17:43 Dose: 8 mg Non-Formulary Medication (Ranexa) 500 mg PO BID [facility] Last Admin: 01/07/18 09:02 Dose: 500 mg Ondansetron HCl (Zofran Inj) 4 mg IVP Q4H PRN PRN Reason: Nausea/Vomiting Oxybutynin Chloride (Ditropan Tab) 5 mg PO HS [facility] Last Admin: 01/06/18 21:23 Dose: 5 mg Oxycodone/Acetaminophen (Percocet 5/325 Mg Tab) 1 tab PO Q6H PRN PRN Reason: Pain, moderate (4-7) Stop: 01/09/18 14:30 Pantoprazole Sodium (Protonix Inj) 40 mg IVP DAILY [facility] Last Admin: 01/07/18 09:01 Dose: 40 mg - Labs Labs: 01/07/18 05:45 01/07/18 05:45 PT 14.0 SECONDS (9.4-12.5) H 01/07/18 05:45 INR 1.21 01/07/18 05:45 APTT 67.9 Seconds (25.1-36.5) H 01/07/18 05:45 - Constitutional Appears: Non-toxic, Chronically Ill - Head Exam Head Exam: ATRAUMATIC, NORMOCEPHALIC - Eye Exam Eye Exam: EOMI, Normal appearance - ENT Exam ENT Exam: Mucous Membranes Moist - Respiratory Exam Respiratory Exam: NORMAL BREATHING PATTERN. absent: Respiratory Distress - Cardiovascular Exam Cardiovascular Exam: REGULAR RHYTHM. absent: Tachycardia - GI/Abdominal Exam GI & Abdominal Exam: Soft. absent: Distended, Guarding, Tenderness, Rebound Additional comments: midline incision CDI with staple closure old ostomy site closed with thierno, remaining packing removed - Neurological Exam Neurological Exam: Alert, Awake, Oriented x3 - Psychiatric Exam Psychiatric exam: Normal Affect, Normal Mood - Skin Skin Exam: Dry, Warm Assessment and Plan - Assessment and Plan (Free Text) Assessment: 77 y/o male s/p colostomy reversal POD6 Plan: -resume reg diet post heart cath -keep wounds clean and dry -will plan to remove thierno between [id number] -no further surgical intervention at this time -further recs per Dr. Pabon [facility] PGY4
--- NOTE | 2018-01-07 11:59 | CP.PCM.PN ---
<Lizzy Thorne - Last Filed: 01/07/18 12:05> Subjective - Date & Time of Evaluation Date of Evaluation: 01/07/18 Time of Evaluation: 11:54 - Subjective Subjective: Gastroenterology Fellow/PGY6 Progress Note Patient denies chest or abdominal pain. Remains NPO. Notes one watery stool without melena or hematochezia today. A 12-point review of systems negative except for as a above. Objective - Vital Signs/Intake and Output Vital Signs (last 24 hours): Temp Pulse Resp BP Pulse Ox 98 F 75 21 140/79 98 01/07/18 08:00 01/07/18 10:25 01/07/18 10:25 01/07/18 10:00 01/07/18 10:25 Intake and Output: 01/07/18 01/07/18 06:59 18:59 Intake Total 250 Balance 250 - Medications Medications: Current Medications Acetaminophen (Tylenol 325mg Tab) 650 mg PO Q6H PRN PRN Reason: Fever >100.4 F Aspirin (Ecotrin) 81 mg PO DAILY [facility] Last Admin: 01/07/18 09:00 Dose: 81 mg Atorvastatin Calcium (Lipitor) 20 mg PO QPM [facility] Last Admin: 01/06/18 17:43 Dose: 20 mg Clopidogrel Bisulfate (Plavix) 75 mg PO DAILY [facility] Last Admin: 01/07/18 09:00 Dose: 75 mg Ezetimibe (Zetia) 10 mg PO DAILY [facility] Last Admin: 01/07/18 09:00 Dose: 10 mg Furosemide (Lasix) 20 mg PO DAILY [facility] Last Admin: 01/07/18 09:00 Dose: 20 mg Sodium Chloride (Sodium Chloride 0.9%) 1,000 mls @ 50 mls/hr IV .Q20H [facility] Last Admin: 01/07/18 06:18 Dose: 50 mls/hr Heparin Sodium/Sodium Chloride (Heparin 43269 Units/250ml 1/2 Normal Saline) 25,000 units in 250 mls @ 8.274 mls/hr IV .Q24H [facility]; Protocol Last Admin: 01/07/18 07:45 Dose: 9 units/kg/hr, 6.205 mls/hr Insulin Human Regular (Humulin R Low) 0 units SC Q6H [facility]; Protocol Last Admin: 01/06/18 16:27 Dose: Not Given Levalbuterol HCl (Xopenex) 0.63 mg IH TIDRESP [facility] Last Admin: 01/07/18 07:39 Dose: 0.63 mg Metoprolol Tartrate (Lopressor) 25 mg PO DAILY [facility] Last Admin: 01/07/18 09:01 Dose: 25 mg Metoprolol Tartrate (Lopressor) 12.5 mg PO QPM [facility] Last Admin: 01/06/18 17:44 Dose: Not Given Montelukast Sodium (Singulair) 10 mg PO QPM [facility] Last Admin: 01/06/18 17:43 Dose: 10 mg Non-Formulary Medication (Rapaflo) 8 mg PO QPM [facility] Last Admin: 01/06/18 17:43 Dose: 8 mg Non-Formulary Medication (Ranexa) 500 mg PO BID [facility] Last Admin: 01/07/18 09:02 Dose: 500 mg Ondansetron HCl (Zofran Inj) 4 mg IVP Q4H PRN PRN Reason: Nausea/Vomiting Oxybutynin Chloride (Ditropan Tab) 5 mg PO HS [facility] Last Admin: 01/06/18 21:23 Dose: 5 mg Oxycodone/Acetaminophen (Percocet 5/325 Mg Tab) 1 tab PO Q6H PRN PRN Reason: Pain, moderate (4-7) Stop: 01/09/18 14:30 Pantoprazole Sodium (Protonix Inj) 40 mg IVP DAILY [facility] Last Admin: 01/07/18 09:01 Dose: 40 mg - Labs Labs: 01/07/18 05:45 01/07/18 05:45 PT 14.0 SECONDS (9.4-12.5) H 01/07/18 05:45 INR 1.21 01/07/18 05:45 APTT 67.9 Seconds (25.1-36.5) H 01/07/18 05:45 - Constitutional Appears: Non-toxic, No Acute Distress - Head Exam Head Exam: ATRAUMATIC, NORMOCEPHALIC - Eye Exam Eye Exam: EOMI, PERRL. absent: Scleral icterus Pupil Exam: PERRL. absent: Miosis, Mydriatic - ENT Exam ENT Exam: Mucous Membranes Moist, Normal Oropharynx - Neck Exam Neck Exam: Full ROM, Normal Inspection - Respiratory Exam Respiratory Exam: Clear to Ausculation Bilateral. absent: Rales, Rhonchi, Wheezes - Cardiovascular Exam Cardiovascular Exam: RRR, +S1, +S2 - GI/Abdominal Exam GI & Abdominal Exam: Soft, Normal Bowel Sounds. absent: Distended, Firm, Guarding, Tenderness, Organomegaly, Rebound - Extremities Exam Extremities Exam: Normal Inspection. absent: Pedal Edema - Neurological Exam Neurological Exam: Alert, Awake - Psychiatric Exam Psychiatric exam: Normal Affect, Normal Mood - Skin Skin Exam: Dry, Intact, Normal Color, Warm Assessment and Plan - Assessment and Plan (Free Text) Assessment: 77 year old male with PMH of stage IV mantle cell lymphoma (quiescence), lung cancer s/p wedge resection, perforated sigmoid diverticulitis s/p Milli procedure 06/2017, hypoglobulinemia, CAD s/p stent placement, Diabetes, HTN, COPD, and presenting with abdominal pain. Active treatment of elevated troponins, anemia s/p 3Units pRBCs, and POD6 (01/01) colostomy reversal with EGD/colonoscopy 12/31 showing normal EGD and 8mm cecal and 5mm rectal tubular adenomas, descending/sigmoid diverticulosis. Plan: -catheterization today, follow up recommendations -H/H stable -on ASA, Plavix, Heparin drip -monitor H/H -on PPI -neurology managing concern for AMS today- pending CTA head and MRI Brain -will follow clinical course <Lakisha Casiano V - Last Filed: 01/07/18 23:29> Objective - Vital Signs/Intake and Output Vital Signs (last 24 hours): Temp Pulse Resp BP Pulse Ox 98.2 F 78 23 121/79 100 01/07/18 20:36 01/07/18 20:49 01/07/18 20:49 01/07/18 20:49 01/07/18 20:49 Intake and Output: 01/07/18 01/08/18 18:59 06:59 Intake Total 908 Output Total 90 Balance 818 - Medications Medications: Current Medications Acetaminophen (Tylenol 325mg Tab) 650 mg PO Q6H PRN PRN Reason: Fever >100.4 F Aspirin (Ecotrin) 81 mg PO DAILY [facility] Last Admin: 01/07/18 09:00 Dose: 81 mg Atorvastatin Calcium (Lipitor) 20 mg PO QPM [facility] Last Admin: 01/07/18 18:41 Dose: 20 mg Clopidogrel Bisulfate (Plavix) 75 mg PO DAILY [facility] Last Admin: 01/07/18 09:00 Dose: 75 mg Ezetimibe (Zetia) 10 mg PO DAILY [facility] Last Admin: 01/07/18 09:00 Dose: 10 mg Furosemide (Lasix) 20 mg PO DAILY [facility] Last Admin: 01/07/18 09:00 Dose: 20 mg Insulin Human Regular (Humulin R Low) 0 units SC ACHS [facility]; Protocol Levalbuterol HCl (Xopenex) 0.63 mg IH TIDRESP [facility] Last Admin: 01/07/18 19:56 Dose: 0.63 mg Metoprolol Tartrate (Lopressor) 25 mg PO DAILY [facility] Last Admin: 01/07/18 09:01 Dose: 25 mg Metoprolol Tartrate (Lopressor) 12.5 mg PO QPM [facility] Last Admin: 01/07/18 18:41 Dose: 12.5 mg Montelukast Sodium (Singulair) 10 mg PO QPM [facility] Last Admin: 01/07/18 18:41 Dose: 10 mg Non-Formulary Medication (Rapaflo) 8 mg PO QPM [facility] Last Admin: 01/07/18 18:41 Dose: 8 mg Non-Formulary Medication (Ranexa) 500 mg PO BID [facility] Last Admin: 01/07/18 18:41 Dose: 500 mg Ondansetron HCl (Zofran Inj) 4 mg IVP Q4H PRN PRN Reason: Nausea/Vomiting Oxybutynin Chloride (Ditropan Tab) 5 mg PO HS [facility] Last Admin: 01/06/18 21:23 Dose: 5 mg Oxycodone/Acetaminophen (Percocet 5/325 Mg Tab) 1 tab PO Q6H PRN PRN Reason: Pain, moderate (4-7) Stop: 01/09/18 14:30 Pantoprazole Sodium (Protonix Inj) 40 mg IVP DAILY [facility] Last Admin: 01/07/18 09:01 Dose: 40 mg - Labs Labs: 01/07/18 05:45 01/07/18 05:45 PT 14.0 SECONDS (9.4-12.5) H 01/07/18 05:45 INR 1.21 01/07/18 05:45 APTT 67.9 Seconds (25.1-36.5) H 01/07/18 05:45 Attending/Attestation - Attestation I have personally seen and examined this patient.: Yes I have fully participated in the care of the patient.: Yes I have reviewed all pertinent clinical information, including history, physical exam and plan: Yes Notes (Text): p 01/07/18 23:29
[2018-01-07] MEDS: Insulin Reg-LOW-Coverage SC SCH ×3 (12:07→22:15)
--- NOTE | 2018-01-07 15:38 | CP.PCM.PN ---
Subjective - Date & Time of Evaluation Date of Evaluation: 01/07/18 Time of Evaluation: 07:25 - Subjective Subjective: Patient is resting comfortably in bed, no fevers, not in distress. Objective - Vital Signs/Intake and Output Vital Signs (last 24 hours): Temp Pulse Resp BP Pulse Ox 97.8 F 61 20 128/65 100 01/06/18 16:00 01/06/18 17:57 01/06/18 17:57 01/06/18 17:57 01/06/18 17:57 Intake and Output: 01/06/18 01/07/18 18:59 06:59 Intake Total 2316 Output Total 180 Balance 2136 - Medications Medications: Current Medications Acetaminophen (Tylenol 325mg Tab) 650 mg PO Q6H PRN PRN Reason: Fever >100.4 F Aspirin (Ecotrin) 81 mg PO DAILY [facility] Last Admin: 01/06/18 09:37 Dose: 81 mg Atorvastatin Calcium (Lipitor) 20 mg PO QPM [facility] Last Admin: 01/06/18 17:43 Dose: 20 mg Clopidogrel Bisulfate (Plavix) 75 mg PO DAILY [facility] Last Admin: 01/06/18 09:37 Dose: 75 mg Ezetimibe (Zetia) 10 mg PO DAILY [facility] Last Admin: 01/06/18 09:38 Dose: 10 mg Furosemide (Lasix) 20 mg PO DAILY [facility] Last Admin: 01/06/18 09:38 Dose: 20 mg Sodium Chloride (Sodium Chloride 0.9%) 1,000 mls @ 50 mls/hr IV .Q20H [facility] Last Admin: 01/06/18 10:15 Dose: 50 mls/hr Heparin Sodium/Sodium Chloride (Heparin 23847 Units/250ml 1/2 Normal Saline) 25,000 units in 250 mls @ 8.274 mls/hr IV .Q24H [facility]; Protocol Last Admin: 01/05/18 17:17 Dose: 9 units/kg/hr, 6.205 mls/hr Insulin Human Regular (Humulin R Low) 0 units SC Q6H [facility]; Protocol Last Admin: 01/06/18 16:27 Dose: Not Given Levalbuterol HCl (Xopenex) 0.63 mg IH TIDRESP [facility] Last Admin: 01/06/18 14:13 Dose: 0.63 mg Metoprolol Tartrate (Lopressor) 25 mg PO DAILY [facility] Last Admin: 01/06/18 09:38 Dose: 25 mg Metoprolol Tartrate (Lopressor) 12.5 mg PO QPM [facility] Last Admin: 01/06/18 17:44 Dose: Not Given Montelukast Sodium (Singulair) 10 mg PO QPM [facility] Last Admin: 01/06/18 17:43 Dose: 10 mg Non-Formulary Medication (Rapaflo) 8 mg PO QPM [facility] Last Admin: 01/06/18 17:43 Dose: 8 mg Non-Formulary Medication (Ranexa) 500 mg PO BID [facility] Last Admin: 01/06/18 17:44 Dose: 500 mg Ondansetron HCl (Zofran Inj) 4 mg IVP Q4H PRN PRN Reason: Nausea/Vomiting Oxybutynin Chloride (Ditropan Tab) 5 mg PO HS [facility] Last Admin: 01/05/18 21:39 Dose: 5 mg Oxycodone/Acetaminophen (Percocet 5/325 Mg Tab) 1 tab PO Q6H PRN PRN Reason: Pain, moderate (4-7) Stop: 01/09/18 14:30 Pantoprazole Sodium (Protonix Inj) 40 mg IVP DAILY [facility] Last Admin: 01/06/18 09:38 Dose: 40 mg - Labs Labs: 01/06/18 05:45 01/06/18 05:45 PT 13.0 SECONDS (9.4-12.5) H 01/06/18 05:45 INR 1.13 01/06/18 05:45 APTT 67.0 Seconds (25.1-36.5) H 01/06/18 05:45 - Constitutional Appears: No Acute Distress, Chronically Ill - Head Exam Head Exam: NORMAL INSPECTION - Respiratory Exam Respiratory Exam: Decreased Breath Sounds - Cardiovascular Exam Cardiovascular Exam: +S1, +S2 - GI/Abdominal Exam GI & Abdominal Exam: Soft. absent: Tenderness Assessment and Plan - Assessment and Plan (Free Text) Plan: Assessment S/P SIRS with VDRF due to colostomy reversal S/P severe sepsis S/P acute renal failure S/P ventilator-dependent respiratory failure due to acute perforated sigmoid colon with associated diverticulitis S/P exploratory laparotomy, sigmoidectomy and colostomy history of sepsis due to acute bronchitis, with systemic viral illness history of UTI with E. 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
--- NOTE | 2018-01-07 16:04 | PN ---
DATE: 01/07/2018 SUBJECTIVE: The patient is seen lying in bed in the ICU. He is awake, he is alert, he is comfortable. He does not appear to be in any kind of distress. PHYSICAL EXAMINATION: VITAL SIGNS: Blood pressure 111/50, heart rate 58, respiratory rate 18, temperature 98. HEENT: Normocephalic, atraumatic, positive pallor. NECK: Supple, no JVD. LUNGS: Bilateral equal air entry, bilateral equal expansion. CARDIAC: S1 and S2, regular rate and rhythm,, no murmur, no rub. ABDOMEN: Soft, nondistended, nontender, positive dressing, bowel sounds present. EXTREMITIES: No lower extremity edema. INTAKE AND OUTPUT: 2316/180? LABORATORY DATA: WBC 4.6, hemoglobin 10, hematocrit 30, platelets 141. Sodium 136, potassium 3.4, chloride 104, CO2 of 26, BUN 9, creatinine 0.8, glucose 102, calcium 7.6, phosphorus 2.9, magnesium 1.9. Total bili 2.1, albumin 2.4, corrected calcium is 8.6. Cultures, no growth. CURRENT MEDICATIONS: Ditropan, Ecotrin, heparin drip at 9 units per kg per hour, Lasix 20 IV push daily, Lipitor, Lopressor 12.5 at bedtime and 25 in a.m., Percocet, Plavix, Protonix, Ranexa 500 b.i.d., Singulair, normal saline at 50, Tylenol, Xopenex, Zetia, and Zofran. ASSESSMENT: 1. Status post small bowel obstruction, laparotomy, colostomy reversal. 2. Ago-[id number] myocardial infarction. 3. Hypokalemia. 4. Severe anemia. 5. Hypoalbuminemia. 6. Mantle cell lymphoma stage IV. 7. History of lung cancer, wedge resection. 8. Ptvyi-[id number]-[id number] anemia, status post 2 units of blood transfusion. 9. Coronary artery disease, history of percutaneous transluminal coronary angioplasty and stent. PLAN: 1. Agree with plan for cardiac catheterization. 2. Agree with IV fluid resuscitation prior to the procedure. 3. Continue antibiotics as per ID recommendations. 4. Follow daily labs. Natalie Raman MD [facility] # [id number]
[2018-01-07] MEDS ORDERED: Verapamil 2 ML ONE (17:07)
[2018-01-07] MEDS ORDERED: Iohexol 350mgl/ml 50 ML ONE (17:08)
[2018-01-07] MEDS ORDERED: Nitroglycerin 50mg in D5W 50 MG/250 ML BOTTLE IV ONE (17:08)
[2018-01-07] MEDS ORDERED: Iodixanol 320 MG/ML 200 ML BOTTLE IV ONE (17:08)
[2018-01-07] MEDS ORDERED: Lidocaine 2% PF (10 ml) Amp ONE (17:27)
[2018-01-07] MEDS ORDERED: Midazolam 2 MG/2 ML VIAL ONE (17:32)
[2018-01-07] MEDS ORDERED: Bacitracin 500 Units/gm Oint Foilpak UD TOP ONE (17:55)
[2018-01-07] MEDS: RAPAFLO 8 MG PO SCH (18:41)
--- NOTE | 2018-01-08 01:37 | OP ---
PROCEDURE DATE: 01/01/2018 PREOPERATIVE DIAGNOSIS: Colostomy status. POSTOPERATIVE DIAGNOSES: Diverticulosis and colostomy status. PROCEDURE PERFORMED: 1. Exploratory laparotomy. 2. Reversal of colostomy with resection of the sigmoid colon and partial resection of the rectal stump. 3. Splenic flexure mobilization. 4. Lysis of dense pelvic adhesions. 5. Partial omentectomy. SPECIMEN: Rectal stump, proximal sigmoid colon, and anastomotic ring, as well as omentum. ESTIMATED BLOOD LOSS: About 500 mL. DRAIN: One Jak drain was placed into the operative field. SURGEON: Mark Pabon MD ASSISTANTS: Dr. Harry and Dr. Ho TYPE OF ANESTHESIA: General endotracheal anesthesia. ANESTHESIA ADMINISTERED BY: Dr. Miller. INDICATIONS: Patient is a 77-year-old male with history of perforated diverticulitis in the past, who came in for reversal of his colostomy. Patient had a prior colonoscopy showing no evidence of any malignancy. DESCRIPTION OF PROCEDURE: The patient was brought to the operating room and placed on the operating table in supine position. The patient was connected to EKG, blood pressure and pulse oximetry monitors. The patient then underwent general endotracheal anesthesia and was placed in lithotomy position. Once this was completed, we then proceeded to prepping and draping the patient. First, a standard time-out procedure took place and everybody in the room agreed as to the patient's identity, diagnoses, and procedure to be performed. Using a #15 blade, an incision was made in elliptical fashion surrounding the colostomy. The colostomy was previously closed with purse string stitch. The incision was carried through the subcutaneous fat down to the fascia and fascia attached to the colon were removed. The colon was mobilized in that area and brought out through that incision. The first 5 cm of shell of the colon were then resected by using TA stapler and dropping the remaining portion of the descending colon down into the abdominal cavity. At this point, we proceeded to move to the midline incision, which was carried through the previous incision and down into the abdominal cavity. Inside, there were some adhesions of the omentum and small bowel to the pelvic wall. That was tediously taken down and after about 55 minutes of dissecting, we were able to finally expose the rectal stump with portion of the very distal sigmoid colon. In order to mobilize, this was brought out by mobilization of the rectum and bringing it up towards the abdominal cavity. There was some significant oozing of the blood throughout that portion of the procedure and therefore this was copiously irrigated and all the bleeding points were cauterized. After ensuring adequate hemostasis and transecting the superior rectal vessels, we noted that the distal portion of the sigmoid at the junction of the rectum appeared to be slightly dusky and therefore that portion of the sigmoid colon, the rectal stump were resected and sent as specimen. Now, after mobilization of the splenic flexure in order to gain adequate length for anastomosis, we placed then a 29 mm anvil into the descending colon and sutured it with basal stitch of 3-0 Prolene. Once this was done, the shaft of the stapler was placed through the rectum into the pelvis and end-to-end anastomosis was created between descending colon and the rectal stump. Two intact doughnut rings were removed and sent as specimen. The abdominal cavity was now copiously irrigated, all the bleeding points were cauterized. Few reinforcement stitches were placed at the anastomosis. A portion of the omentum which was earlier mobilized inside with site appeared to have multiple points of bleeding and therefore decision was made to resect that portion of the omentum and sent as a specimen. Once this was done and we had perfect hemostasis, we then proceeded with placing the bowel in the appropriate position, adhered with tiny small bowel to its original position and placing the omentum over it. Once that was completed, we proceeded with closure of abdominal cavity using #1 PDS in a running fashion. Prior to closure of the fascia, air test done was done through the rectum and there was no leak at the anastomosis. Now the midline incision was closed using #1 PDS in running fashion. The wounds were copiously irrigated and in a similar fashion, the fascia of the colostomy defect was also closed. Next, the subcutaneous tissues were copiously irrigated and reapproximated using 3-0 Vicryl very loosely on the colostomy site. The skin was closed using surgical thierno. Portion of the iodoform gauze strips were placed into the lateral aspect of the colostomy site. Sterile dressings were applied to the wounds. Prior to the closure, a Jak drain was placed in the pelvis extending from the deep pelvis along the left pericolic gutter. The drain was sutured to the skin using interrupted stitch. Sterile dressings were applied to all the wounds. Patient tolerated the procedure well and there were no complications. Patient was awakened and transferred to the recovery room for further observation. Mark Pabon MD
--- NOTE | 2018-01-08 01:45 | CARDCATH ---
PROCEDURE DATE: 01/07/2018 INDICATIONS: Mr. Marques is a very pleasant 77-year-old male with past medical history significant for CAD who was undergoing an operative repair for reversal of his colostomy, had undergone a diagnostic cardiac cath for preoperative cardiovascular risk stratification which showed moderate RCA stenosis. Postoperative course was complicated by early removal of his anesthesia and subsequently required him to be reintubated. Subsequently, developed positive troponins, which peaked up to 8. Stat echocardiogram done showed normal ejection fraction with no wall motion abnormalities, but secondary to the significant troponin load, he was brought to the medical lab director for possible intervention of the RCA. PROCEDURE PERFORMED: Left heart cath with selective left and right coronary angiogram with a left radial arterial approach, 6-Honduran left radial arterial access, percutaneous transluminal coronary angioplasty and stenting of proximal and mid RCA with deployment of 3.0 x 34 and a 2.75 x 8 mm Ganesh drug-eluting stent, regeneration from 95% down to 0% NEAL 3 flow. Wrist band for hemostasis. ANGIOGRAPHIC FINDINGS: Left main large-sized vessel, bifurcates into left anterior descending and left circumflex coronary artery. LAD has proximal and mid stents, which are widely patent. Distal LAD has a known obstruction at the apex of the heart, which has been known for the last 5 years. Left circumflex, moderate disease, stable over the course of last 5 years, approximately 40-50% stenosis. Diagonal 1 and diagonal 2 small-sized vessels, nonobstructive, RCA proximal 90, mid 75 high-grade lesions. LVEF normal. EDP 14. INTERVENTION PERFORMED: JR4 guide was used to engage the right coronary system. Prowater wire was used to cross the lesion. The lesion was predilated with a 2.0 balloon and subsequently stented with a 3.0 x 34 and 2.75 x 8 Ganesh drug-eluting stent. Final angiogram done, regeneration down to 0% NEAL 3 flow. IMPRESSION: Successful revascularization of the proximal and mid right coronary artery, deployment of 2 drug-eluting stents. RECOMMENDATIONS: The patient is to continue dual antiplatelet therapy, guideline-directed therapy for CAD. Monitor H and H. Yaniv Perez MD [facility] # [id number]
--- NOTE | 2018-01-08 02:37 | PN ---
DATE: 01/07/2018 PULMONARY PROGRESS NOTE REFERRING PHYSICIAN: Ted Santoyo MD SUBJECTIVE: The patient is examined and seen in the general laborer waiting room. Apparently, no new complaints and feels better. Decreased cough and shortness of breath, not much sputum production. No chest pain. Still has some abdominal pain. Had bowel movement. No leg pain or leg swelling. OBJECTIVE: GENERAL: In no acute distress. VITAL SIGNS: Temperature is 98, heart rate is 68, respiratory rate is 23, blood pressure 118/68, and pulse ox 98% on nasal cannula. HEENT: Small oral cavity. Crowded airway. NECK: Supple. No JVD. LUNGS: Has a few scattered rhonchi, few crackles at the bases. HEART: S1 and S2. ABDOMEN: Positive bowel sounds. Midline surgical site looks okay. EXTREMITIES: There is no edema. NEUROLOGIC: Awake, alert, and follows simple commands. HOME MEDICATIONS: He is on Ditropan 5 mg at bedtime, Ecotrin 81 mg daily, insulin coverage, Lasix 20 mg daily, Lipitor 20 mg daily, metoprolol tartrate 12.5 mg daily, metoprolol tartrate also 25 mg in the morning, Percocet 5/325 one tablet every 6 hours p.r.n., Plavix 75 mg daily, Protonix 40 mg daily, Ranexa 500 mg twice a day, Singulair 10 mg daily, Tylenol p.r.n., Xopenex 0.63 mg three times a day, Zetia 10 mg daily, and Zofran 4 mg p.r,n. LABORATORY DATA: Shows hemoglobin 10, hematocrit 30.6, WBC 4.6, and platelet count is 141. INR 1.2. PTT is . Sodium 136, potassium 3.4, chloride 104, bicarbonate 26, BUN 9, and creatinine 0.8. Glucose 90. Calcium is 7.6. Phosphorous 2.9. Magnesium 1.7. Total bili 2.1. AST 46, ALT 64, and alkaline phosphatase is 115. Albumin is 2.4. Microbiology: Blood cultures, urine cultures, and sputum cultures; there is no growth. IMPRESSION AND PLAN: Status post laparotomy for reversal of colostomy; history of visceral perforation in the past, status post respiratory arrest requiring resuscitation; has a chronic lung disease; history of lung cancer, requiring wedge resection in the past; mantle cell carcinoma; coronary artery disease, history of coronary stent, hypertension, diabetes, non-Q-wave myocardial infarction, having cardiac catheterization today. Pulmonary point of view, doing well. Continue bronchodilators, antibiotics as per Infectious Diseases, sleep apnea precaution, , continuous positive airway pressure. Careful with sedation. Gastric prophylaxis. Deep vein thrombosis prophylaxis. Follow up labs in the morning. Thank you and we will follow with you. Thanh Duffy MD
[2018-01-08 07:20] LABS: BASO # 0.01 K/mm3 (0.0-2.0); BASO % 0.2 % (0.0-3.0); EOS # 0.1 (0.0-0.7); GRAN # 3.24 (1.4-6.5); GRAN % 73.7 % (50.0-68.0); HEMOGLOBIN 9.9 g/dL (14.0-18.0); LYMPH # 0.6 (1.2-3.4); LYMPH % 14.5 % (22.0-35.0); MEAN CELL VOLUME 87.7 fl (80.0-105.0); MEAN CORPUSCULAR HEMOGLOBIN 28.9 pg (25.0-35.0); MEAN PLATELET VOLUME 10.1 fl (7.0-11.0); MONO # 0.4 (0.1-0.6); MONO % 8.6 % (1.0-6.0); RBC 3.42 10^6/uL (3.5-6.1); RED CELL DISTRIBUTION WIDTH 15.5 % (11.5-14.5); WHITE BLOOD COUNT 4.4 10^3/uL (4.5-11.0)
[2018-01-08 07:32] LABS: ALB/GLOB RATIO 0.9 (1.1-1.8); ALBUMIN 2.4 g/dL (3.0-4.8); ALT/SGPT 63 U/L (7-56); AST/SGOT 48 U/L (17-59); BLOOD UREA NITROGEN 13 mg/dL (7-21); CALCIUM 7.8 mg/dL (8.4-10.5); GFR NON-AFRICAN AMERICAN > 60
[2018-01-08 07:40] LABS: INR 1.2; PROTHROMBIN TIME 13.9 SECONDS (9.4-12.5)
[2018-01-08] MEDS: Levalbuterol 0.63 MG/3 ML Inhal Soln UD IH SCH ×3 (07:57→19:45)
[2018-01-08] MEDS ORDERED: Potassium Chloride 20 mEq ER Tab PO STA (07:58)
--- NOTE | 2018-01-08 08:15 | CP.PCM.PN ---
Subjective - Date & Time of Evaluation Date of Evaluation: 01/08/18 Time of Evaluation: 08:11 - Subjective Subjective: General Surgery Progress Note for Dr. Pabon 77M seen and evaluated at bedside this morning. No acute events overnight. Patient complaining of diarrhea. Tolerating diet. Passing flatus. Denies n/v, f/c, CP, SOB, or urinary symptoms. Objective - Vital Signs/Intake and Output Vital Signs (last 24 hours): Temp Pulse Resp BP Pulse Ox 98 F 77 32 H 114/62 98 01/08/18 04:00 01/08/18 07:36 01/08/18 07:36 01/08/18 07:36 01/08/18 07:36 Intake and Output: 01/08/18 01/08/18 06:59 18:59 Intake Total 580 Output Total 170 Balance 410 - Medications Medications: Current Medications Acetaminophen (Tylenol 325mg Tab) 650 mg PO Q6H PRN PRN Reason: Fever >100.4 F Aspirin (Ecotrin) 81 mg PO DAILY [facility] Last Admin: 01/07/18 09:00 Dose: 81 mg Atorvastatin Calcium (Lipitor) 20 mg PO QPM [facility] Last Admin: 01/07/18 18:41 Dose: 20 mg Clopidogrel Bisulfate (Plavix) 75 mg PO DAILY [facility] Last Admin: 01/07/18 09:00 Dose: 75 mg Ezetimibe (Zetia) 10 mg PO DAILY [facility] Last Admin: 01/07/18 09:00 Dose: 10 mg Furosemide (Lasix) 20 mg PO DAILY [facility] Last Admin: 01/07/18 09:00 Dose: 20 mg Potassium Chloride (Potassium Chloride 10 Meq/100 Ml) 10 meq in 100 mls @ 50 mls/hr IVPB Q2H [facility] Stop: 01/08/18 15:59 Insulin Human Regular (Humulin R Low) 0 units SC ACHS [facility]; Protocol Levalbuterol HCl (Xopenex) 0.63 mg IH TIDRESP [facility] Last Admin: 01/08/18 07:57 Dose: 0.63 mg Metoprolol Tartrate (Lopressor) 25 mg PO DAILY [facility] Last Admin: 01/07/18 09:01 Dose: 25 mg Metoprolol Tartrate (Lopressor) 12.5 mg PO QPM [facility] Last Admin: 01/07/18 18:41 Dose: 12.5 mg Montelukast Sodium (Singulair) 10 mg PO QPM [facility] Last Admin: 01/07/18 18:41 Dose: 10 mg Non-Formulary Medication (Rapaflo) 8 mg PO QPM [facility] Last Admin: 01/07/18 18:41 Dose: 8 mg Non-Formulary Medication (Ranexa) 500 mg PO BID [facility] Last Admin: 01/07/18 18:41 Dose: 500 mg Ondansetron HCl (Zofran Inj) 4 mg IVP Q4H PRN PRN Reason: Nausea/Vomiting Oxybutynin Chloride (Ditropan Tab) 5 mg PO HS [facility] Last Admin: 01/06/18 21:23 Dose: 5 mg Oxycodone/Acetaminophen (Percocet 5/325 Mg Tab) 1 tab PO Q6H PRN PRN Reason: Pain, moderate (4-7) Stop: 01/09/18 14:30 Pantoprazole Sodium (Protonix Inj) 40 mg IVP DAILY [facility] Last Admin: 01/07/18 09:01 Dose: 40 mg - Labs Labs: 01/08/18 06:00 01/08/18 06:00 PT 13.9 SECONDS (9.4-12.5) H 01/08/18 06:00 INR 1.20 01/08/18 06:00 APTT 153.0 Seconds (25.1-36.5) H* 01/08/18 06:00 - Constitutional Appears: Well, Non-toxic, No Acute Distress - Head Exam Head Exam: ATRAUMATIC, NORMAL INSPECTION, NORMOCEPHALIC - Eye Exam Eye Exam: EOMI - ENT Exam ENT Exam: Mucous Membranes Moist - GI/Abdominal Exam GI & Abdominal Exam: Distended, Soft, Normal Bowel Sounds. absent: Tenderness Additional comments: incisions clean, dry, intact dressings changed - Neurological Exam Neurological Exam: Alert, Awake - Psychiatric Exam Psychiatric exam: Normal Affect, Normal Mood Assessment and Plan - Assessment and Plan (Free Text) Assessment: 77M s/p colostomy reversal POD7 Plan: Continue regular diet F/u c.diff results Dressing changes, keep wound clean and dry Staple removal between [id number] No further surgical intervention at this time Further recommendations per Dr. Cm Nielson PGY1
[2018-01-08] MEDS: Insulin Reg-LOW-Coverage SC SCH ×3 (08:35→21:49)
--- NOTE | 2018-01-08 08:51 | CP.PCM.PN ---
Subjective - Date & Time of Evaluation Date of Evaluation: 01/08/18 Time of Evaluation: 13:30 - Subjective Subjective: Chris Stallings- Internal Medicine Resident- Progress Note on Behalf of Neurology Team Subjective: Patient seen and examined at bedside. No acute events overnight. Patient offers no new complaints at this time. Denies headache, confusion, dizziness, acute vision/auditory changes, weakness, focal deficits. Further denies fever, chills, chest pain, SOB. 12 point ROS negative except as indicated in HPI Physical Examination: - Constitutional Appears: No acute distress - Head Exam Head Exam: ATRAUMATIC, NORMOCEPHALIC - Eye Exam Eye Exam: EOMI - ENT Exam ENT Exam: Mucous Membranes Moist - Neck Exam Neck Exam: Full ROM - Respiratory Exam Respiratory Exam: NORMAL BREATHING PATTERN. absent: Accessory Muscle Use, Chest Wall Tenderness - Cardiovascular Exam Cardiovascular Exam: +S1, +S2 - GI/Abdominal Exam GI & Abdominal Exam: Surgical incision site with staple closure clean, dry, i ntact - Extremities Exam Extremities Exam: no cyanosis, no clubbing - Neurological Exam Neurological Exam: Alert, Awake, Oriented x3, no focal neurological deficits - Psychiatric Exam Psychiatric exam: Normal Affect, Normal Mood - Skin Skin Exam: Dry, Warm Assessment and Plan: Patient is 77 year old male with a past medical history of mantle cell lymphoma stage IV, Lung CA s/p wedge resection, CAD with stents, DM, HTN, COPD, perforated sigmoid diverticulitis s/p Rob procedure, s/p colostomy reversal who was admitted to the ICU for complication s/p hartmans reversal. Neurology team was consulted for altered mental status. Acute Encephalopathy - differential is multi-factoral - electrolyte abnormalities vs. infection vs. ICU delirium - 01/07/2018 non-contrast CT scan of the head- No intracranial mass, hemorrhage or evidence of acute infarct. Old left frontal infarct. Postsurgical changes of left frontal sinus. Mild chronic ethmoid sinusitis. Chronic microvascular ischemic change. - 01/07/2018 CTA head and neck - No evidence of occlusion. There is a stenosis of the proximal right internal carotid artery estimated at approximately 45-50 %. Scattered atherosclerotic plaque changes both carotid siphons and vertebral arteries without occlusion. No evidence of large aneurysm nor vascular malformation. Patient seen, case discussed with, and plan approved by attending physician, Dr. Lake. Objective - Vital Signs/Intake and Output Vital Signs (last 24 hours): Temp Pulse Resp BP Pulse Ox 98 F 77 32 H 114/62 98 01/08/18 04:00 01/08/18 07:36 01/08/18 07:36 01/08/18 07:36 01/08/18 07:36 Intake and Output: 01/08/18 01/08/18 06:59 18:59 Intake Total 580 Output Total 170 Balance 410 - Medications Medications: Current Medications Acetaminophen (Tylenol 325mg Tab) 650 mg PO Q6H PRN PRN Reason: Fever >100.4 F Aspirin (Ecotrin) 81 mg PO DAILY [facility] Last Admin: 01/07/18 09:00 Dose: 81 mg Atorvastatin Calcium (Lipitor) 20 mg PO QPM [facility] Last Admin: 01/07/18 18:41 Dose: 20 mg Clopidogrel Bisulfate (Plavix) 75 mg PO DAILY [facility] Last Admin: 01/07/18 09:00 Dose: 75 mg Ezetimibe (Zetia) 10 mg PO DAILY [facility] Last Admin: 01/07/18 09:00 Dose: 10 mg Furosemide (Lasix) 20 mg PO DAILY [facility] Last Admin: 01/07/18 09:00 Dose: 20 mg Potassium Chloride (Potassium Chloride 10 Meq/100 Ml) 10 meq in 100 mls @ 50 mls/hr IVPB Q2H [facility] Stop: 01/08/18 15:59 Insulin Human Regular (Humulin R Low) 0 units SC ACHS [facility]; Protocol Levalbuterol HCl (Xopenex) 0.63 mg IH TIDRESP [facility] Last Admin: 01/08/18 07:57 Dose: 0.63 mg Metoprolol Tartrate (Lopressor) 25 mg PO DAILY [facility] Last Admin: 01/07/18 09:01 Dose: 25 mg Metoprolol Tartrate (Lopressor) 12.5 mg PO QPM [facility] Last Admin: 01/07/18 18:41 Dose: 12.5 mg Montelukast Sodium (Singulair) 10 mg PO QPM [facility] Last Admin: 01/07/18 18:41 Dose: 10 mg Non-Formulary Medication (Rapaflo) 8 mg PO QPM [facility] Last Admin: 01/07/18 18:41 Dose: 8 mg Non-Formulary Medication (Ranexa) 500 mg PO BID [facility] Last Admin: 01/07/18 18:41 Dose: 500 mg Ondansetron HCl (Zofran Inj) 4 mg IVP Q4H PRN PRN Reason: Nausea/Vomiting Oxybutynin Chloride (Ditropan Tab) 5 mg PO HS [facility] Last Admin: 01/06/18 21:23 Dose: 5 mg Oxycodone/Acetaminophen (Percocet 5/325 Mg Tab) 1 tab PO Q6H PRN PRN Reason: Pain, moderate (4-7) Stop: 01/09/18 14:30 Pantoprazole Sodium (Protonix Inj) 40 mg IVP DAILY [facility] Last Admin: 01/07/18 09:01 Dose: 40 mg - Labs Labs: 01/08/18 06:00 01/08/18 06:00 PT 13.9 SECONDS (9.4-12.5) H 01/08/18 06:00 INR 1.20 01/08/18 06:00 APTT 153.0 Seconds (25.1-36.5) H* 01/08/18 06:00
--- NOTE | 2018-01-08 08:52 | CP.CCUPN ---
<Shereen Vogel - Last Filed: 01/08/18 13:21> CCU Subjective - Physician Review Subjective (Free Text): CRITICAL CARE PROGRESS NOTE FOR DR. LAKHWINDER Vogel PGY-1 Pt seen and examined at bedside this am. He reports no acute complaints this am. He tolerated cardiac cath well yesterday. He is tolerating his diet, axo x 3. 12 point ROS is negative. CCU Objective - Vital Signs / Intake & Output Vital Signs (Last 4 hours): Vital Signs Pulse Resp BP Pulse Ox 01/08/18 07:36 77 32 H 114/62 98 01/08/18 07:13 86 25 H 132/69 100 01/08/18 07:00 71 25 H 102/54 L 100 01/08/18 06:00 72 24 114/61 100 01/08/18 05:30 68 24 117/63 100 Intake and Output (Last 8hrs): Intake & Output 01/07/18 01/08/18 01/08/18 22:59 06:59 14:59 Intake Total 658 580 Output Total 170 Balance 658 410 Weight 68.719 kg Intake: IV 658 500 Heparin Drip 54 IVF 450 500 IVPB 100 Oral 80 Output: Drainage 170 Right Abdomen 170 Other: # Voids Urine, Voided 3 6 # Bowel Movements 3 6 - Physical Exam Head: Positive for: Atraumatic, Normocephalic Pupils: Positive for: PERRL Extroacular Muscles: Positive for: EOMI Conjunctiva: Positive for: Normal Mouth: Positive for: Dry Neck: Positive for: Normal Range of Motion Respiratory/Chest: Positive for: Clear to Auscultation, Good Air Exchange. Negative for: Respiratory Distress, Accessory Muscle Use Cardiovascular: Positive for: Regular Rate and Rhythm, Normal S1, S2. Negative for: Murmurs Abdomen: Positive for: Tenderness, Other (abdominal dressing place. KERI draining serosanguinous fluid) Back: Positive for: Normal Inspection Upper Extremity: Positive for: Normal Inspection, Other (L radial dressing in place). Negative for: Cyanosis, Edema Lower Extremity: Positive for: Normal Inspection. Negative for: Edema Neurological: Positive for: GCS=15, CN II-XII Intact, Speech Normal Skin: Positive for: Warm, Dry, Normal Color. Negative for: Rashes Psychiatric: Positive for: Alert, Oriented x 3, Normal Insight, Normal Concentration - Medications Active Medications: Active Medications Generic Name Dose Route Start Last Admin Trade Name Freq PRN Reason Stop Dose Admin Acetaminophen 650 mg 12/30/17 17:54 Tylenol 325mg Tab PO Q6H PRN Fever >100.4 F Aspirin 81 mg 01/04/18 10:00 01/07/18 09:00 Ecotrin PO 81 mg DAILY ALEX Administration Atorvastatin Calcium 20 mg 01/05/18 18:00 01/07/18 18:41 Lipitor PO 20 mg QPM ALEX Administration Clopidogrel Bisulfate 75 mg 01/05/18 10:00 01/07/18 09:00 Plavix PO 75 mg DAILY ALEX Administration Ezetimibe 10 mg 01/05/18 12:00 01/07/18 09:00 Zetia PO 10 mg DAILY ALEX Administration Furosemide 20 mg 01/05/18 12:00 01/07/18 09:00 Lasix PO 20 mg DAILY ALEX Administration Potassium Chloride 10 meq in 100 mls @ 50 mls/hr 01/08/18 08:00 Potassium Chloride 10 Meq/100 Ml IVPB 01/08/18 15:59 Q2H [facility] Insulin Human Regular 0 units 01/08/18 07:30 Humulin R Low SC ACHS [facility] Protocol Levalbuterol HCl 0.63 mg 01/05/18 14:00 01/08/18 07:57 Xopenex IH 0.63 mg TIDRESP [facility] Administration Metoprolol Tartrate 25 mg 12/31/17 10:00 01/07/18 09:01 Lopressor PO 25 mg DAILY ALEX Administration Metoprolol Tartrate 12.5 mg 12/30/17 18:00 01/07/18 18:41 Lopressor PO 12.5 mg QPM ALEX Administration Montelukast Sodium 10 mg 12/30/17 18:00 01/07/18 18:41 Singulair PO 10 mg QPM ALEX Administration Non-Formulary Medication 8 mg 12/30/17 19:26 01/07/18 18:41 Rapaflo PO 8 mg QPM ALEX Administration Non-Formulary Medication 500 mg 12/30/17 19:28 01/07/18 18:41 Ranexa PO 500 mg BID ALEX Administration Ondansetron HCl 4 mg 01/01/18 13:58 Zofran Inj IVP Q4H PRN Nausea/Vomiting Oxybutynin Chloride 5 mg 12/30/17 22:00 01/06/18 21:23 Ditropan Tab PO 5 mg HS ALEX Administration Oxycodone/Acetaminophen 1 tab 01/06/18 14:29 Percocet 5/325 Mg Tab PO 01/09/18 14:30 Q6H PRN Pain, moderate (4-7) Pantoprazole Sodium 40 mg 01/03/18 10:00 01/07/18 09:01 Protonix Inj IVP 40 mg DAILY ALEX Administration - Patient Studies Lab Studies: Lab Studies 01/08/18 01/08/18 01/08/18 Range/Units 06:00 06:00 06:00 WBC 4.4 L (4.5-11.0) 10^3/uL RBC 3.42 L (3.5-6.1) 10^6/uL Hgb 9.9 L (14.0-18.0) g/dL Hct 30.0 L (42.0-52.0) % MCV 87.7 (80.0-105.0) fl MCH 28.9 (25.0-35.0) pg MCHC 33.0 (31.0-37.0) g/dl RDW 15.5 H (11.5-14.5) % Plt Count 155 (120.0-450.0) 10^3/uL MPV 10.1 (7.0-11.0) fl Gran % 73.7 H (50.0-68.0) % Lymph % (Auto) 14.5 L (22.0-35.0) % Randolph % (Auto) 8.6 H (1.0-6.0) % Eos % (Auto) 3.0 (1.5-5.0) % Baso % (Auto) 0.2 (0.0-3.0) % Gran # 3.24 (1.4-6.5) Lymph # (Auto) 0.6 L (1.2-3.4) Randolph # (Auto) 0.4 (0.1-0.6) Eos # (Auto) 0.1 (0.0-0.7) Baso # (Auto) 0.01 (0.0-2.0) K/mm3 PT 13.9 H (9.4-12.5) SECONDS INR 1.20 APTT 153.0 H* (25.1-36.5) Seconds Sodium 136 (132-148) mmol/L Potassium 3.4 L (3.6-5.0) mmol/L Chloride 107 (98-107) mmol/L Carbon Dioxide 25 (21-33) mmol/L Anion Gap 8 L (10-20) BUN 13 (7-21) mg/dL Creatinine 0.9 (0.8-1.5) mg/dl Est GFR ( Amer) > 60 Est GFR (Non-Af Amer) > 60 POC Glucose (mg/dL) (65-110) mg/dL Random Glucose 137 H (70-110) mg/dL Calcium 7.8 L (8.4-10.5) mg/dL Phosphorus 3.0 (2.5-4.5) mg/dL Magnesium 1.7 (1.7-2.2) mg/dL Total Bilirubin 1.4 H (0.2-1.3) mg/dL AST 48 (17-59) U/L ALT 63 H (7-56) U/L Alkaline Phosphatase 121 (38-126) U/L Total Protein 5.0 L (5.8-8.3) g/dL Albumin 2.4 L (3.0-4.8) g/dL Globulin 2.6 gm/dL Albumin/Globulin Ratio 0.9 L (1.1-1.8) 01/08/18 01/07/18 01/07/18 Range/Units 04:13 23:48 09:55 WBC (4.5-11.0) 10^3/uL RBC (3.5-6.1) 10^6/uL Hgb (14.0-18.0) g/dL Hct (42.0-52.0) % MCV (80.0-105.0) fl MCH (25.0-35.0) pg MCHC (31.0-37.0) g/dl RDW (11.5-14.5) % Plt Count (120.0-450.0) 10^3/uL MPV (7.0-11.0) fl Gran % (50.0-68.0) % Lymph % (Auto) (22.0-35.0) % Randolph % (Auto) (1.0-6.0) % Eos % (Auto) (1.5-5.0) % Baso % (Auto) (0.0-3.0) % Gran # (1.4-6.5) Lymph # (Auto) (1.2-3.4) Randolph # (Auto) (0.1-0.6) Eos # (Auto) (0.0-0.7) Baso # (Auto) (0.0-2.0) K/mm3 PT (9.4-12.5) SECONDS INR APTT (25.1-36.5) Seconds Sodium (132-148) mmol/L Potassium (3.6-5.0) mmol/L Chloride (98-107) mmol/L Carbon Dioxide (21-33) mmol/L Anion Gap (10-20) BUN (7-21) mg/dL Creatinine (0.8-1.5) mg/dl Est GFR ( Amer) Est GFR (Non-Af Amer) POC Glucose (mg/dL) 150 H 142 H 90 (65-110) mg/dL Random Glucose (70-110) mg/dL Calcium (8.4-10.5) mg/dL Phosphorus (2.5-4.5) mg/dL Magnesium (1.7-2.2) mg/dL Total Bilirubin (0.2-1.3) mg/dL AST (17-59) U/L ALT (7-56) U/L Alkaline Phosphatase (38-126) U/L Total Protein (5.8-8.3) g/dL Albumin (3.0-4.8) g/dL Globulin gm/dL Albumin/Globulin Ratio (1.1-1.8) Laboratory Results - last 24 hr 01/07/18 01/07/18 01/08/18 09:55 23:48 04:13 WBC RBC Hgb Hct MCV MCH MCHC RDW Plt Count MPV Gran % Lymph % (Auto) Randolph % (Auto) Eos % (Auto) Baso % (Auto) Gran # Lymph # (Auto) Randolph # (Auto) Eos # (Auto) Baso # (Auto) PT INR APTT Sodium Potassium Chloride Carbon Dioxide Anion Gap BUN Creatinine Est GFR ( Amer) Est GFR (Non-Af Amer) POC Glucose (mg/dL) 90 142 H 150 H Random Glucose Calcium Phosphorus Magnesium Total Bilirubin AST ALT Alkaline Phosphatase Total Protein Albumin Globulin Albumin/Globulin Ratio 01/08/18 01/08/18 01/08/18 06:00 06:00 06:00 WBC 4.4 L RBC 3.42 L Hgb 9.9 L Hct 30.0 L MCV 87.7 MCH 28.9 MCHC 33.0 RDW 15.5 H Plt Count 155 MPV 10.1 Gran % 73.7 H Lymph % (Auto) 14.5 L Randolph % (Auto) 8.6 H Eos % (Auto) 3.0 Baso % (Auto) 0.2 Gran # 3.24 Lymph # (Auto) 0.6 L Randolph # (Auto) 0.4 Eos # (Auto) 0.1 Baso # (Auto) 0.01 PT 13.9 H INR 1.20 APTT 153.0 H* Sodium 136 Potassium 3.4 L Chloride 107 Carbon Dioxide 25 Anion Gap 8 L BUN 13 Creatinine 0.9 Est GFR ( Amer) > 60 Est GFR (Non-Af Amer) > 60 POC Glucose (mg/dL) Random Glucose 137 H Calcium 7.8 L Phosphorus 3.0 Magnesium 1.7 Total Bilirubin 1.4 H AST 48 ALT 63 H Alkaline Phosphatase 121 Total Protein 5.0 L Albumin 2.4 L Globulin 2.6 Albumin/Globulin Ratio 0.9 L Fingerstick Blood Sugar Results: 150 Review of Systems - Review of Systems Review of Systems: per [facility] Critical Care Progress Note - Nutrition Nutrition: Nutrition Category Date Time Status Consistent Carbohydrate [DIET] Diets 01/07/18 Dinner Ordered Assessment/Plan - Assessment and Plan (Free Text) Assessment: 77 y/o M with PMHx of perforated diverticulitis s/p nishant procedure, s/p colostomy reversal, stage 4 mantle cell lymphoma, lung ca s/p wedge resection, cad s/p stents x 4, dm, htn, copd admitted to ICU for post-operative respiratory failure s/p extubation. Rapid response was called in PACU as patient was unresponsive and not breathing. He was found to be in hypercapnic respiratory acidosis. He was subsequently sedated, intubated and placed on ventilator. Patient is now s/p extubation and currently being monitored monitored in ICU on minimal O2 supplementation. Pt had an increase in troponins, was subsequently placed on heparin drip, aspirin and plavix. Pt underwent cardiac cath on 01/08/18, with 2 RCA stents placed. Plan: Neuro: Alert, awake & oriented x 3 No FND Conversing Cardio: s/p cardiac cath with RCA stent placement x 2 Normotensive continue on aspirin, plavix, home ranexa Echo revealed no wall motion abnormalities continue metoprolol 25 mg maintain map >65 HR controlled Pulmonary Home montelukast, xopenox Encourage early mobilization Pulmonary toilet Chest PT Incentive spirometry OOB to chair physical therapy hob elevated to 35 degrees oral hygiene SaO2 sat >90% GI: s/p colostomy reversal abdominal dressing in place KERI draining serosanguinous fluid Tolerating diet followed by surgery team, appreciate recs : continue home lasix Monitor I/Os closely replete electrolytes as needed maintain euvolemia Heme: H/H stable Transfuse prn per surgery recs Dispo: Pt awake, alert and oriented x 3. He has been NPO since midnight. No acute complaints this am. He is s/p cardiac cath, with 2 drug eluting RCA stents placed. He is to be continued on dual anti-platelet therapy and guideline directed CAD therapy. His vital signs are stable. He is hemodynamically stable. His H/H is stable. Case seen, examined and discussed with attending physician, Dr. Carroll <Jose Guadalupe Carroll - Last Filed: 01/08/18 13:26> CCU Objective - Vital Signs / Intake & Output Intake and Output (Last 8hrs): Intake & Output 01/07/18 01/08/18 01/08/18 22:59 06:59 14:59 Intake Total 658 580 Output Total 170 Balance 658 410 Weight 151 lb 8 oz Intake: IV 658 500 Heparin Drip 54 IVF 450 500 IVPB 100 Oral 80 Output: Drainage 170 Right Abdomen 170 Other: # Voids Urine, Voided 3 6 # Bowel Movements 3 6 - Medications Active Medications: Active Medications Generic Name Dose Route Start Last Admin Trade Name Freq PRN Reason Stop Dose Admin Acetaminophen 650 mg 12/30/17 17:54 Tylenol 325mg Tab PO Q6H PRN Fever >100.4 F Aspirin 81 mg 01/04/18 10:00 01/08/18 09:17 Ecotrin PO 81 mg DAILY ALEX Administration Atorvastatin Calcium 20 mg 01/05/18 18:00 01/07/18 18:41 Lipitor PO 20 mg QPM ALEX Administration Clopidogrel Bisulfate 75 mg 01/05/18 10:00 01/08/18 09:08 Plavix PO 75 mg DAILY ALEX Administration Ezetimibe 10 mg 01/05/18 12:00 01/08/18 09:16 Zetia PO 10 mg DAILY ALEX Administration Furosemide 20 mg 01/05/18 12:00 01/08/18 09:16 Lasix PO 20 mg DAILY ALEX Administration Potassium Chloride 10 meq in 100 mls @ 50 mls/hr 01/08/18 08:00 01/08/18 13:15 Potassium Chloride 10 Meq/100 Ml IVPB 01/08/18 15:59 50 mls/hr Q2H ALEX Administration Metronidazole 500 mg in 100 mls @ 100 mls/hr 01/08/18 09:15 Flagyl IVPB Q8 ALEX Protocol Insulin Human Regular 0 units 01/08/18 07:30 01/08/18 13:12 Humulin R Low SC 1 u ACHS ALEX Administration Protocol Levalbuterol HCl 0.63 mg 01/05/18 14:00 01/08/18 07:57 Xopenex IH 0.63 mg TIDRESP ALEX Administration Metoprolol Tartrate 25 mg 12/31/17 10:00 01/08/18 09:13 Lopressor PO 25 mg DAILY ALEX Administration Metoprolol Tartrate 12.5 mg 12/30/17 18:00 01/07/18 18:41 Lopressor PO 12.5 mg QPM ALEX Administration Montelukast Sodium 10 mg 12/30/17 18:00 01/07/18 18:41 Singulair PO 10 mg QPM ALEX Administration Non-Formulary Medication 8 mg 12/30/17 19:26 01/07/18 18:41 Rapaflo PO 8 mg QPM ALEX Administration Non-Formulary Medication 500 mg 12/30/17 19:28 01/08/18 09:10 Ranexa PO 500 mg BID ALEX Administration Ondansetron HCl 4 mg 01/01/18 13:58 Zofran Inj IVP Q4H PRN Nausea/Vomiting Oxybutynin Chloride 5 mg 12/30/17 22:00 01/06/18 21:23 Ditropan Tab PO 5 mg HS ALEX Administration Oxycodone/Acetaminophen 1 tab 01/06/18 14:29 Percocet 5/325 Mg Tab PO 01/09/18 14:30 Q6H PRN Pain, moderate (4-7) Pantoprazole Sodium 40 mg 01/03/18 10:00 01/08/18 09:06 Protonix Inj IVP 40 mg DAILY ALEX Administration - Patient Studies Lab Studies: Lab Studies 01/08/18 01/08/18 01/08/18 Range/Units 09:20 06:00 06:00 WBC (4.5-11.0) 10^3/uL RBC (3.5-6.1) 10^6/uL Hgb (14.0-18.0) g/dL Hct (42.0-52.0) % MCV (80.0-105.0) fl MCH (25.0-35.0) pg MCHC (31.0-37.0) g/dl RDW (11.5-14.5) % Plt Count (120.0-450.0) 10^3/uL MPV (7.0-11.0) fl Gran % (50.0-68.0) % Lymph % (Auto) (22.0-35.0) % Randolph % (Auto) (1.0-6.0) % Eos % (Auto) (1.5-5.0) % Baso % (Auto) (0.0-3.0) % Gran # (1.4-6.5) Lymph # (Auto) (1.2-3.4) Randolph # (Auto) (0.1-0.6) Eos # (Auto) (0.0-0.7) Baso # (Auto) (0.0-2.0) K/mm3 PT 13.9 H (9.4-12.5) SECONDS INR 1.20 APTT 30.4 153.0 H* (25.1-36.5) Seconds Sodium 136 (132-148) mmol/L Potassium 3.4 L (3.6-5.0) mmol/L Chloride 107 (98-107) mmol/L Carbon Dioxide 25 (21-33) mmol/L Anion Gap 8 L (10-20) BUN 13 (7-21) mg/dL Creatinine 0.9 (0.8-1.5) mg/dl Est GFR ( Amer) > 60 Est GFR (Non-Af Amer) > 60 POC Glucose (mg/dL) (65-110) mg/dL Random Glucose 137 H (70-110) mg/dL Calcium 7.8 L (8.4-10.5) mg/dL Phosphorus 3.0 (2.5-4.5) mg/dL Magnesium 1.7 (1.7-2.2) mg/dL Total Bilirubin 1.4 H (0.2-1.3) mg/dL AST 48 (17-59) U/L ALT 63 H (7-56) U/L Alkaline Phosphatase 121 (38-126) U/L Total Protein 5.0 L (5.8-8.3) g/dL Albumin 2.4 L (3.0-4.8) g/dL Globulin 2.6 gm/dL Albumin/Globulin Ratio 0.9 L (1.1-1.8) 01/08/18 01/08/18 01/07/18 Range/Units 06:00 04:13 23:48 WBC 4.4 L (4.5-11.0) 10^3/uL RBC 3.42 L (3.5-6.1) 10^6/uL Hgb 9.9 L (14.0-18.0) g/dL Hct 30.0 L (42.0-52.0) % MCV 87.7 (80.0-105.0) fl MCH 28.9 (25.0-35.0) pg MCHC 33.0 (31.0-37.0) g/dl RDW 15.5 H (11.5-14.5) % Plt Count 155 (120.0-450.0) 10^3/uL MPV 10.1 (7.0-11.0) fl Gran % 73.7 H (50.0-68.0) % Lymph % (Auto) 14.5 L (22.0-35.0) % Randolph % (Auto) 8.6 H (1.0-6.0) % Eos % (Auto) 3.0 (1.5-5.0) % Baso % (Auto) 0.2 (0.0-3.0) % Gran # 3.24 (1.4-6.5) Lymph # (Auto) 0.6 L (1.2-3.4) Randolph # (Auto) 0.4 (0.1-0.6) Eos # (Auto) 0.1 (0.0-0.7) Baso # (Auto) 0.01 (0.0-2.0) K/mm3 PT (9.4-12.5) SECONDS INR APTT (25.1-36.5) Seconds Sodium (132-148) mmol/L Potassium (3.6-5.0) mmol/L Chloride (98-107) mmol/L Carbon Dioxide (21-33) mmol/L Anion Gap (10-20) BUN (7-21) mg/dL Creatinine (0.8-1.5) mg/dl Est GFR ( Amer) Est GFR (Non-Af Amer) POC Glucose (mg/dL) 150 H 142 H (65-110) mg/dL Random Glucose (70-110) mg/dL Calcium (8.4-10.5) mg/dL Phosphorus (2.5-4.5) mg/dL Magnesium (1.7-2.2) mg/dL Total Bilirubin (0.2-1.3) mg/dL AST (17-59) U/L ALT (7-56) U/L Alkaline Phosphatase (38-126) U/L Total Protein (5.8-8.3) g/dL Albumin (3.0-4.8) g/dL Globulin gm/dL Albumin/Globulin Ratio (1.1-1.8) 01/07/18 Range/Units 09:55 WBC (4.5-11.0) 10^3/uL RBC (3.5-6.1) 10^6/uL Hgb (14.0-18.0) g/dL Hct (42.0-52.0) % MCV (80.0-105.0) fl MCH (25.0-35.0) pg MCHC (31.0-37.0) g/dl RDW (11.5-14.5) % Plt Count (120.0-450.0) 10^3/uL MPV (7.0-11.0) fl Gran % (50.0-68.0) % Lymph % (Auto) (22.0-35.0) % Randolph % (Auto) (1.0-6.0) % Eos % (Auto) (1.5-5.0) % Baso % (Auto) (0.0-3.0) % Gran # (1.4-6.5) Lymph # (Auto) (1.2-3.4) Randolph # (Auto) (0.1-0.6) Eos # (Auto) (0.0-0.7) Baso # (Auto) (0.0-2.0) K/mm3 PT (9.4-12.5) SECONDS INR APTT (25.1-36.5) Seconds Sodium (132-148) mmol/L Potassium (3.6-5.0) mmol/L Chloride (98-107) mmol/L Carbon Dioxide (21-33) mmol/L Anion Gap (10-20) BUN (7-21) mg/dL Creatinine (0.8-1.5) mg/dl Est GFR ( Amer) Est GFR (Non-Af Amer) POC Glucose (mg/dL) 90 (65-110) mg/dL Random Glucose (70-110) mg/dL Calcium (8.4-10.5) mg/dL Phosphorus (2.5-4.5) mg/dL Magnesium (1.7-2.2) mg/dL Total Bilirubin (0.2-1.3) mg/dL AST (17-59) U/L ALT (7-56) U/L Alkaline Phosphatase (38-126) U/L Total Protein (5.8-8.3) g/dL Albumin (3.0-4.8) g/dL Globulin gm/dL Albumin/Globulin Ratio (1.1-1.8) Laboratory Results - last 24 hr 01/07/18 01/07/18 01/08/18 09:55 23:48 04:13 WBC RBC Hgb Hct MCV MCH MCHC RDW Plt Count MPV Gran % Lymph % (Auto) Randolph % (Auto) Eos % (Auto) Baso % (Auto) Gran # Lymph # (Auto) Randolph # (Auto) Eos # (Auto) Baso # (Auto) PT INR APTT Sodium Potassium Chloride Carbon Dioxide Anion Gap BUN Creatinine Est GFR ( Amer) Est GFR (Non-Af Amer) POC Glucose (mg/dL) 90 142 H 150 H Random Glucose Calcium Phosphorus Magnesium Total Bilirubin AST ALT Alkaline Phosphatase Total Protein Albumin Globulin Albumin/Globulin Ratio 01/08/18 01/08/18 01/08/18 06:00 06:00 06:00 WBC 4.4 L RBC 3.42 L Hgb 9.9 L Hct 30.0 L MCV 87.7 MCH 28.9 MCHC 33.0 RDW 15.5 H Plt Count 155 MPV 10.1 Gran % 73.7 H Lymph % (Auto) 14.5 L Randolph % (Auto) 8.6 H Eos % (Auto) 3.0 Baso % (Auto) 0.2 Gran # 3.24 Lymph # (Auto) 0.6 L Randolph # (Auto) 0.4 Eos # (Auto) 0.1 Baso # (Auto) 0.01 PT 13.9 H INR 1.20 APTT 153.0 H* Sodium 136 Potassium 3.4 L Chloride 107 Carbon Dioxide 25 Anion Gap 8 L BUN 13 Creatinine 0.9 Est GFR ( Amer) > 60 Est GFR (Non-Af Amer) > 60 POC Glucose (mg/dL) Random Glucose 137 H Calcium 7.8 L Phosphorus 3.0 Magnesium 1.7 Total Bilirubin 1.4 H AST 48 ALT 63 H Alkaline Phosphatase 121 Total Protein 5.0 L Albumin 2.4 L Globulin 2.6 Albumin/Globulin Ratio 0.9 L 01/08/18 09:20 WBC RBC Hgb Hct MCV MCH MCHC RDW Plt Count MPV Gran % Lymph % (Auto) Randolph % (Auto) Eos % (Auto) Baso % (Auto) Gran # Lymph # (Auto) Randolph # (Auto) Eos # (Auto) Baso # (Auto) PT INR APTT 30.4 Sodium Potassium Chloride Carbon Dioxide Anion Gap BUN Creatinine Est GFR ( Amer) Est GFR (Non-Af Amer) POC Glucose (mg/dL) Random Glucose Calcium Phosphorus Magnesium Total Bilirubin AST ALT Alkaline Phosphatase Total Protein Albumin Globulin Albumin/Globulin Ratio Critical Care Progress Note - Nutrition Nutrition: Nutrition Category Date Time Status Consistent Carbohydrate [DIET] Diets 01/07/18 Dinner Ordered Assessment/Plan - Assessment and Plan (Free Text) Plan: Patient seen and examined on rounds with resident, agree with note with following additions/exceptions: Patient is 77yo male with PMhx mantle cell lymphoma stage IV, Lung CA s/p wedge resection, CAD with stents, DM, HTN, COPD, perforated sigmoid diverticulitis s/p Nishant procedure, s/p colostomy reversal, admitted with respiratory failure, which has resolved, extubated, doing well on 2LNC, awake, alert in NAD. Surgery, GI, Cardiology following Labs imaging, chart reviewed Troponin downtrending NO CP, SOB HH stable Pt s/p cardiac cath yesterday, RCA stents Respiratory failure, resolved Hx Lymphoma Hx of Lung Ca CAD DM HTN COPD Leukocytosis s/p colostomy reversal Elevated Troponin, NSTEMI Anemia Recommend: - cont with supp o2, goal sat 90%, duonebs PRN - follow up ID, abx as per ID - BP control - Pain control - monitor HH - ASA, Plavix as per cardiology - follow up heme onc - follow up surgery - GI ppx - DVT ppx, HSQ - Transfer to [facility], stable
[2018-01-08] MEDS: RANEXA 500 MG PO SCH (09:10)
[2018-01-08] MEDS ORDERED: Iohexol 350 MG/100 ML VIAL ONE (09:51)
--- NOTE | 2018-01-08 10:31 | CP.PCM.PN ---
<Lizzy Thorne - Last Filed: 01/08/18 10:25> Subjective - Date & Time of Evaluation Date of Evaluation: 01/08/18 Time of Evaluation: 10:25 - Subjective Subjective: Gastroenterology Fellow/PGY6 Progress Note Patient feels well. Denies abdominal pain. Tolerating diet. Noted to have three watery stools yesterday without melena or hematochezia. A 12-point review of systems negative except for as a above. Objective - Vital Signs/Intake and Output Vital Signs (last 24 hours): Temp Pulse Resp BP Pulse Ox 98 F 77 32 H 119/67 98 01/08/18 04:00 01/08/18 07:36 01/08/18 07:36 01/08/18 09:16 01/08/18 07:36 Intake and Output: 01/08/18 01/08/18 06:59 18:59 Intake Total 580 Output Total 170 Balance 410 - Medications Medications: Current Medications Acetaminophen (Tylenol 325mg Tab) 650 mg PO Q6H PRN PRN Reason: Fever >100.4 F Aspirin (Ecotrin) 81 mg PO DAILY [facility] Last Admin: 01/08/18 09:17 Dose: 81 mg Atorvastatin Calcium (Lipitor) 20 mg PO QPM [facility] Last Admin: 01/07/18 18:41 Dose: 20 mg Clopidogrel Bisulfate (Plavix) 75 mg PO DAILY [facility] Last Admin: 01/08/18 09:08 Dose: 75 mg Ezetimibe (Zetia) 10 mg PO DAILY [facility] Last Admin: 01/08/18 09:16 Dose: 10 mg Furosemide (Lasix) 20 mg PO DAILY [facility] Last Admin: 01/08/18 09:16 Dose: 20 mg Potassium Chloride (Potassium Chloride 10 Meq/100 Ml) 10 meq in 100 mls @ 50 mls/hr IVPB Q2H [facility] Stop: 01/08/18 15:59 Last Admin: 01/08/18 09:02 Dose: 50 mls/hr Metronidazole (Flagyl) 500 mg in 100 mls @ 100 mls/hr IVPB Q8 [facility]; Protocol Insulin Human Regular (Humulin R Low) 0 units SC ACHS [facility]; Protocol Last Admin: 01/08/18 08:35 Dose: Not Given Levalbuterol HCl (Xopenex) 0.63 mg IH TIDRESP [facility] Last Admin: 01/08/18 07:57 Dose: 0.63 mg Metoprolol Tartrate (Lopressor) 25 mg PO DAILY [facility] Last Admin: 01/08/18 09:13 Dose: 25 mg Metoprolol Tartrate (Lopressor) 12.5 mg PO QPM [facility] Last Admin: 01/07/18 18:41 Dose: 12.5 mg Montelukast Sodium (Singulair) 10 mg PO QPM [facility] Last Admin: 01/07/18 18:41 Dose: 10 mg Non-Formulary Medication (Rapaflo) 8 mg PO QPM [facility] Last Admin: 01/07/18 18:41 Dose: 8 mg Non-Formulary Medication (Ranexa) 500 mg PO BID [facility] Last Admin: 01/08/18 09:10 Dose: 500 mg Ondansetron HCl (Zofran Inj) 4 mg IVP Q4H PRN PRN Reason: Nausea/Vomiting Oxybutynin Chloride (Ditropan Tab) 5 mg PO HS [facility] Last Admin: 01/06/18 21:23 Dose: 5 mg Oxycodone/Acetaminophen (Percocet 5/325 Mg Tab) 1 tab PO Q6H PRN PRN Reason: Pain, moderate (4-7) Stop: 01/09/18 14:30 Pantoprazole Sodium (Protonix Inj) 40 mg IVP DAILY [facility] Last Admin: 01/08/18 09:06 Dose: 40 mg - Labs Labs: 01/08/18 06:00 01/08/18 06:00 PT 13.9 SECONDS (9.4-12.5) H 01/08/18 06:00 INR 1.20 01/08/18 06:00 APTT 30.4 Seconds (25.1-36.5) 01/08/18 09:20 - Constitutional Appears: Non-toxic, No Acute Distress - Head Exam Head Exam: ATRAUMATIC, NORMOCEPHALIC - Eye Exam Eye Exam: EOMI, PERRL. absent: Scleral icterus Pupil Exam: PERRL. absent: Miosis, Mydriatic - ENT Exam ENT Exam: Mucous Membranes Moist, Normal Oropharynx - Neck Exam Neck Exam: Full ROM, Normal Inspection - Respiratory Exam Respiratory Exam: Clear to Ausculation Bilateral. absent: Rales, Rhonchi, Wheezes - Cardiovascular Exam Cardiovascular Exam: RRR, +S1, +S2. absent: Gallop, Rubs - GI/Abdominal Exam GI & Abdominal Exam: Soft, Normal Bowel Sounds. absent: Distended, Firm, Guarding, Rigid, Tenderness, Organomegaly, Rebound - Extremities Exam Extremities Exam: Full ROM, Normal Inspection. absent: Pedal Edema - Neurological Exam Neurological Exam: Alert, Awake, Oriented x3 - Psychiatric Exam Psychiatric exam: Normal Affect, Normal Mood - Skin Skin Exam: Dry, Intact, Normal Color, Warm Assessment and Plan - Assessment and Plan (Free Text) Assessment: 77 year old male with PMH of stage IV mantle cell lymphoma (quiescence), lung cancer s/p wedge resection, perforated sigmoid diverticulitis s/p Milli procedure 06/2017, CAD s/p stent placement, Diabetes, HTN, and COPD presenting with abdominal pain. Active treatment of elevated troponins POD1 (01/07) cathetrization with revascularization of RCA s/p 2 drug-eluting stents, anemia s/p 3Units pRBCs, and POD7 (01/01) colostomy reversal with EGD/colonoscopy 12/31 showing normal EGD and 8mm cecal and 5mm rectal tubular adenomas, descending/sigmoid diverticulosis. Plan: -H/H stable -on PPI -pending Cdiff -started on Flagyl 500mg TID -cardiology managing -on ASA, Plavix, Heparin drip -neurology managing-pending CTA head and MRI Brain -will follow clinical course <Lakisha Casiano V - Last Filed: 01/08/18 19:22> Objective - Vital Signs/Intake and Output Vital Signs (last 24 hours): Temp Pulse Resp BP Pulse Ox 97 F L 67 18 91/68 L 94 L 01/08/18 18:42 01/08/18 18:42 01/08/18 18:42 01/08/18 18:42 01/08/18 18:42 Intake and Output: 01/08/18 01/09/18 18:59 06:59 Intake Total 940 Output Total 1420 60 Balance -480 -60 - Medications Medications: Current Medications Acetaminophen (Tylenol 325mg Tab) 650 mg PO Q6H PRN PRN Reason: Fever >100.4 F Aspirin (Ecotrin) 81 mg PO DAILY [facility] Last Admin: 01/08/18 09:17 Dose: 81 mg Atorvastatin Calcium (Lipitor) 20 mg PO QPM [facility] Last Admin: 01/08/18 17:20 Dose: 20 mg Clopidogrel Bisulfate (Plavix) 75 mg PO DAILY [facility] Last Admin: 01/08/18 09:08 Dose: 75 mg Ezetimibe (Zetia) 10 mg PO DAILY [facility] Last Admin: 01/08/18 09:16 Dose: 10 mg Furosemide (Lasix) 20 mg PO DAILY [facility] Last Admin: 01/08/18 09:16 Dose: 20 mg Metronidazole (Flagyl) 500 mg in 100 mls @ 100 mls/hr IVPB Q8 [facility]; Protocol Last Admin: 01/08/18 13:25 Dose: 100 mls/hr Insulin Human Regular (Humulin R Low) 0 units SC ACHS [facility]; Protocol Last Admin: 01/08/18 13:12 Dose: 1 u Levalbuterol HCl (Xopenex) 0.63 mg IH TIDRESP [facility] Last Admin: 01/08/18 13:44 Dose: Not Given Metoprolol Tartrate (Lopressor) 25 mg PO DAILY [facility] Last Admin: 01/08/18 09:13 Dose: 25 mg Metoprolol Tartrate (Lopressor) 12.5 mg PO QPM [facility] Last Admin: 01/08/18 17:20 Dose: 12.5 mg Montelukast Sodium (Singulair) 10 mg PO QPM [facility] Last Admin: 01/08/18 18:40 Dose: 10 mg Non-Formulary Medication (Rapaflo) 8 mg PO QPM [facility] Last Admin: 01/08/18 18:39 Dose: 8 mg Non-Formulary Medication (Ranexa) 500 mg PO BID [facility] Last Admin: 01/08/18 09:10 Dose: 500 mg Ondansetron HCl (Zofran Inj) 4 mg IVP Q4H PRN PRN Reason: Nausea/Vomiting Oxybutynin Chloride (Ditropan Tab) 5 mg PO HS [facility] Last Admin: 01/06/18 21:23 Dose: 5 mg Oxycodone/Acetaminophen (Percocet 5/325 Mg Tab) 1 tab PO Q6H PRN PRN Reason: Pain, moderate (4-7) Stop: 01/09/18 14:30 Pantoprazole Sodium (Protonix Inj) 40 mg IVP DAILY [facility] Last Admin: 01/08/18 09:06 Dose: 40 mg - Labs Labs: 01/08/18 06:00 01/08/18 06:00 PT 13.9 SECONDS (9.4-12.5) H 01/08/18 06:00 INR 1.20 01/08/18 06:00 APTT 30.4 Seconds (25.1-36.5) 01/08/18 09:20 Attending/Attestation - Attestation I have personally seen and examined this patient.: Yes I have fully participated in the care of the patient.: Yes I have reviewed all pertinent clinical information, including history, physical exam and plan: Yes Notes (Text): This is an addendum to GI progress report dictated by the GI Fellow.The patient was seen and examined earlier. Medical records, lab studies, imagings were reviewed. Last 24 hours events reviewed. Agreed with the above treatment plan as outlined in GI Fellow 's notes with the addition of the following Patient had multiple episodes of diarrhea now Off antibiotics Followup stool for C.diff Empirically start the patient on flagyl 500mg 3 times a day Discussed with ID Followup of Hb 01/08/18 19:21
--- NOTE | 2018-01-08 11:06 | CT ---
Date of service: 01/08/2018. PROCEDURE: CT Angiography of the neck and brain with contrast. HISTORY: AMS. COMPARISON: Comparison made with noncontrast CT scan brain 01/07/2018. TECHNIQUE: Contiguous axial images of the neck were obtained from the level of the vertex of the skull to the superior mediastinum in the arteriographic phase of enhancement. Coronal and sagittal reformats or also generated. The IV contrast dose: 96 cc Omnipaque 350 Radiation dose: Total exam DLP = 500.27 mGy-cm. This CT exam was performed using one or more of the following dose reduction techniques: Automated exposure control, adjustment of the mA and/or kV according to patient size, and/or use of iterative reconstruction technique. FINDINGS: The aortic arch is widely patent despite partially calcified atherosclerotic plaque which extends into the origins of the great vessels from left subclavian to the right brachiocephalic in decreasing order of severity. The great vessels are patent. The left common carotid artery is patent. Some minor calcified plaque left carotid bifurcation extending into the origin of the left internal carotid artery without occlusion or significant stenosis. Anvy-fl-rzehidqn calcified plaque right carotid bifurcation extending into the origin of the right internal carotid artery resulting in narrowing estimated at approximately 45-50 % the. The distal internal carotid arteries including the petrous cavernous and supraclinoid segments are patent however some there are calcified atherosclerotic plaque noted at both carotid siphons left greater than right. Both vertebral arteries are patent throughout left-sided which is larger in caliber/more dominant than the right side. Some minor calcified plaque seen along the distal vertebral arteries (proximal intradural segments right greater than left. The basilar artery is also patent. The A1 and A2 segments and distal branches of the anterior cerebral arteries are patent and appear relatively symmetric so far as can be seen. On the M1 M2 and distal on branches of both middle cerebral arteries are patent and relatively symmetric as well. No evidence of large aneurysm nor vascular malformation. Redemonstrated are presumed post intrahepatic encephalomalacia changes left frontal lobe and to a lesser degree right inferior frontal pole. The OTHER FINDINGS: Mild aortic atherosclerotic calcification or mural plaque present. IMPRESSION: No evidence of occlusion. 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 Scattered atherosclerotic plaque changes both carotid siphons and vertebral arteries without occlusion. No evidence of large aneurysm nor vascular malformation.
--- NOTE | 2018-01-08 11:31 | CP.PCM.PN ---
Subjective - Date & Time of Evaluation Date of Evaluation: 01/08/18 Time of Evaluation: 08:15 - Subjective Subjective: Comfortable in bed, eating ok, but complaining of loose bowel movement, 5-6 times per day. No fevers. Objective - Vital Signs/Intake and Output Vital Signs (last 24 hours): Temp Pulse Resp BP Pulse Ox 98 F 58 L 21 111/50 L 99 01/07/18 08:00 01/07/18 14:25 01/07/18 14:25 01/07/18 14:14 01/07/18 14:25 Intake and Output: 01/07/18 01/07/18 06:59 18:59 Intake Total 350 Output Total 90 Balance 260 - Medications Medications: Current Medications Acetaminophen (Tylenol 325mg Tab) 650 mg PO Q6H PRN PRN Reason: Fever >100.4 F Aspirin (Ecotrin) 81 mg PO DAILY [facility] Last Admin: 01/07/18 09:00 Dose: 81 mg Atorvastatin Calcium (Lipitor) 20 mg PO QPM [facility] Last Admin: 01/06/18 17:43 Dose: 20 mg Clopidogrel Bisulfate (Plavix) 75 mg PO DAILY [facility] Last Admin: 01/07/18 09:00 Dose: 75 mg Ezetimibe (Zetia) 10 mg PO DAILY [facility] Last Admin: 01/07/18 09:00 Dose: 10 mg Furosemide (Lasix) 20 mg PO DAILY [facility] Last Admin: 01/07/18 09:00 Dose: 20 mg Sodium Chloride (Sodium Chloride 0.9%) 1,000 mls @ 50 mls/hr IV .Q20H [facility] Last Admin: 01/07/18 06:18 Dose: 50 mls/hr Heparin Sodium/Sodium Chloride (Heparin 97630 Units/250ml 1/2 Normal Saline) 25,000 units in 250 mls @ 8.274 mls/hr IV .Q24H [facility]; Protocol Last Admin: 01/07/18 07:45 Dose: 9 units/kg/hr, 6.205 mls/hr Insulin Human Regular (Humulin R Low) 0 units SC Q6H [facility]; Protocol Last Admin: 01/07/18 12:07 Dose: Not Given Levalbuterol HCl (Xopenex) 0.63 mg IH TIDRESP [facility] Last Admin: 01/07/18 13:12 Dose: 0.63 mg Metoprolol Tartrate (Lopressor) 25 mg PO DAILY [facility] Last Admin: 01/07/18 09:01 Dose: 25 mg Metoprolol Tartrate (Lopressor) 12.5 mg PO QPM [facility] Last Admin: 01/06/18 17:44 Dose: Not Given Montelukast Sodium (Singulair) 10 mg PO QPM [facility] Last Admin: 01/06/18 17:43 Dose: 10 mg Non-Formulary Medication (Rapaflo) 8 mg PO QPM [facility] Last Admin: 01/06/18 17:43 Dose: 8 mg Non-Formulary Medication (Ranexa) 500 mg PO BID [facility] Last Admin: 01/07/18 09:02 Dose: 500 mg Ondansetron HCl (Zofran Inj) 4 mg IVP Q4H PRN PRN Reason: Nausea/Vomiting Oxybutynin Chloride (Ditropan Tab) 5 mg PO HS [facility] Last Admin: 01/06/18 21:23 Dose: 5 mg Oxycodone/Acetaminophen (Percocet 5/325 Mg Tab) 1 tab PO Q6H PRN PRN Reason: Pain, moderate (4-7) Stop: 01/09/18 14:30 Pantoprazole Sodium (Protonix Inj) 40 mg IVP DAILY [facility] Last Admin: 01/07/18 09:01 Dose: 40 mg - Labs Labs: 01/07/18 05:45 01/07/18 05:45 PT 14.0 SECONDS (9.4-12.5) H 01/07/18 05:45 INR 1.21 01/07/18 05:45 APTT 67.9 Seconds (25.1-36.5) H 01/07/18 05:45 - Constitutional Appears: No Acute Distress, Chronically Ill - Head Exam Head Exam: NORMAL INSPECTION - Respiratory Exam Respiratory Exam: Decreased Breath Sounds - Cardiovascular Exam Cardiovascular Exam: +S1, +S2 - GI/Abdominal Exam GI & Abdominal Exam: Soft. absent: Tenderness Assessment and Plan - Assessment and Plan (Free Text) Plan: Assessment S/P SIRS with VDRF due to colostomy reversal loose bowel movement, R/O C. diff. associated diarrhea S/P severe sepsis S/P acute renal failure S/P ventilator-dependent respiratory failure due to acute perforated sigmoid colon with associated diverticulitis S/P exploratory laparotomy, sigmoidectomy and colostomy history of sepsis due to acute bronchitis, with systemic viral illness history of UTI with E. 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 Casiano with Flagyl and will follow up stool for C. diff. will continue to monitor clinically
[2018-01-08] MEDS: metroNIDAZOLE IV 500 mg/100 ml 500 MG/100 ML BAG IVPB SCH ×2 (13:25→21:46)
--- NOTE | 2018-01-08 15:53 | PN ---
DATE: 01/08/2018 SUBJECTIVE: The patient is currently seen attempting to eat lunch. He is in ICU, bed 6. He has been transferred to a medical floor and is awaiting a bed. The patient is status post a cardiac catheterization with placement of two stents in the right coronary artery. He appears to be comfortable. He appears mildly distended. He continues to have mild diarrhea and he continues to receive potassium replacement therapy. His BUN is 13 with a creatinine of 0.9. MEDICATIONS: Medication list reviewed. The patient is currently on Ditropan, Ecotrin, Flagyl, insulin, Lasix, Lipitor, Lopressor, Percocet, Plavix, K-riders, Protonix, Ranexa, Rapaflo, Singulair, Xopenex, Zetia, and Zofran. OBJECTIVE: INTAKE/OUTPUT: Intake is 1488, output is 260. Weight is 151 pounds 8 ounces. VITAL SIGNS: Blood pressure 119/67, pulse of 77, temperature of 98, respiratory rate of 24. HEENT: Shows him to be normocephalic, atraumatic. Conjunctivae are pale. Sclerae are nonicteric. NECK: Supple. No neck vein distention. CHEST: Clear to auscultation and percussion. No rales, rhonchi or wheezing. CARDIOVASCULAR: Shows S1, S2 which are normal. No audible murmurs, rubs or gallops. ABDOMEN: Soft. Mild distention. Nontender and intact resting over his abdominal wall. Bowel sounds are normal. EXTREMITIES: Show no lower extremity cyanosis, clubbing or edema. LABORATORY DATA AND IMAGING: CBC: White blood cell count today 4.4, hemoglobin 9.9 with a platelet count of 155,000. Coags, PTT today is 30.4. Last PT is 13.9. Chemistries: Potassium 3.4, down from 3.7. Electrolytes normal. BUN 30 with a creatinine of 0.9. Glucose 137. Calcium 7.8 with an albumin of 2.4, corrects to normal. Phosphorus 3, magnesium 1.7. Bilirubin 1.4. Mild elevation of his ALT at 63. Microbiology: All cultures are negative. ASSESSMENT: 1. Status post perforated diverticulitis with perforation of the sigmoid colon status post bowel obstruction status post laparotomy status post colostomy, now with reversal of colostomy. 2. [id number] myocardial infarction status post cardiac catheterization with placement of two stents in the right coronary artery. 3. History of atherosclerotic heart disease, coronary artery disease status post percutaneous transluminal coronary angioplasty stents in the past. 4. Hypokalemia. Suggested to the ICU house staff that we add potassium to his maintenance IV fluids rather than continuing to ana a low potassium level with K-riders. Quite possibly the hypokalemia is in part secondary to the patient's diarrhea. Stool for Clostridium difficile is pending. 5. History of anemia. Hemoglobin stable at 9.9. 6. History of mantle cell lymphoma stage IV. 7. History of lung cancer, status post wedge resection. 8. History of mild elevation of his liver enzymes appeared to be stable. PLAN: 1. From a renal standpoint with the exception of his borderline low potassium levels, the patient appears to be stable. We will continue to monitor the patient closely for 24-48 hours post cardiac catheterization. In all likelihood, he should have no issue with his renal function. 2. Workup of diarrhea in progress. 3. Check C. diff in stools. 4. Duration of antibiotics as per Infectious Disease. 5. Continue to follow labs on a regular basis. Usman Brady MD
[2018-01-08] MEDS: RAPAFLO 8 MG PO SCH (18:39)
--- NOTE | 2018-01-08 21:48 | PN ---
DATE: 01/08/2018 PULMONARY PROGRESS NOTE REFERRING PHYSICIAN: Ted Santoyo MD. SUBJECTIVE: He is in the reclining chair. Night was unremarkable. Breathing is better. Not much cough. No sputum production. Still has mild abdominal pain. Has a watery stool. No leg pain or leg swelling. Overnight events noted. Has a cardiac cath with stent placement. OBJECTIVE: GENERAL: In no acute distress. VITAL SIGNS: Temperature is 98, heart rate 67, respiratory rate is 18, blood pressure 91/68, pulse ox 94% on room air. HEENT: Moist mucous membrane, crowded airway. NECK: Supple. No JVD. LUNGS: Have a fair airflow with few rhonchi and few crackles at the bases. HEART: S1 and S2. ABDOMEN: Soft. Incision site looks okay. Positive bowel sounds. EXTREMITY: There is no edema. NEUROLOGICAL: Awake and alert. Follows simple command. MEDICATIONS: He is on Ditropan 5 mg at bedtime, Ecotrin 81 mg daily, Flagyl 500 mg every 8 hours, insulin coverage, Lasix 20 mg daily, Lipitor 20 mg daily, metoprolol tartrate 12.5 mg daily in the morning and 25 mg in the evening, Percocet 5/35 one tab every 6 hours p.r.n., Plavix 75 mg daily, Protonix 40 mg daily, Ranexa 500 mg twice a day, also getting Singulair 10 mg daily, Tylenol p.r.n., Xopenex inhaled every 8 hours, Zetia 10 mg daily, Zofran p.r.n. basis. LABORATORY DATA: Shows hemoglobin 9.9, hematocrit 30, WBC 4.4, platelet count is 155. INR 1.20, PTT 153. Sodium 136, potassium 3.4, chloride 107, bicarbonate 25, BUN 13, creatinine 0.9, glucose 97, calcium is 7.8, phosphorus 3, magnesium 1.7, total bili is 1.4, AST 48, ALT 63, alk phos is 121, albumin is 2.4. IMPRESSION AND PLAN: Status post laparotomy for reversal of colostomy, history of visceral perforation, status post respiratory failure, resuscitated, chronic lung disease, history of lung cancer requiring wedge resection, mantle cell carcinoma in the past, coronary artery disease, history of coronary stent, hypertension, diabetes, status post myocardial infarction requiring two stents yesterday. Pulmonary point of view, doing well. Continue bronchodilator, pulmonary toilet. Sleep apnea precaution. Careful with sedation. Antibiotics as per Infectious Diseases Surgical followup. Gastric prophylaxis. Sequential compression device to lower extremity. Follow up labs in the morning. Thank you and we will follow with you. Thanh Duffy MD
--- NOTE | 2018-01-09 05:04 | PN ---
DATE: 01/08/2018 Patient is in ICU bed 6, waiting for transfer to regular [facility] floor. This is a 77-year-old male with history of mantle cell lymphoma, history of carcinoma of lungs, history of coronary artery disease. He was admitted initially with significant abdominal pain which abated. Then patient had a colonoscopy, following which he was cleared to have reversal of the colostomy. After the colostomy reversal patient had a series of issues that had to be attended to. Patient immediately after the surgery had respiratory decompensation, for which he had to be reintubated, and then while he was intubated, he was also noted to have transient elevation of his cardiac enzymes and isoenzymes with rise in the troponin. Patient's condition stabilized. He was able to be extubated and subsequent to that, patient was assessed for cardiac cath and has had placement of 2 stents in the right coronary artery. Patient continued to improve since then and he has been able to eat. He is passing gas. He was having some small diarrhea and he is receiving potassium supplements. SUBJECTIVE: Patient is seen in bed and attempting to eat the lunch. MEDICATIONS: Medications were reviewed. Patient is on Ditropan, Ecotrin, Flagyl, insulin, Lasix, Lipitor, Lopressor, Percocet, Plavix, K-riders, Protonix, Ranexa, Rapaflo, Singulair, Xopenex, Zetia, and Zofran. PHYSICAL EXAMINATION: GENERAL: Patient is awake, alert, and oriented. VITAL SIGNS: Blood pressure 119/67, pulse 77, T-max is 98.4, respirations 24 per minute. HEENT: Normocephalic, atraumatic. Conjunctivae pale. Sclerae anicteric. Pupils are equally reactive to light and accommodation. Examination of the oropharynx reveals the patient to be edentulous. No mucositis is noted. No ulcerations are noted. NECK: Supple. There is no adenopathy. CHEST: Clear to percussion and auscultation without any adventitious rhonchi or wheezing. CARDIOVASCULAR: PMI is within the first intercostal space. S1, S2 are normal. No gallop or murmur is heard. ABDOMEN: Soft. Mildly distended, nontender. Bowel sounds are normal. EXTREMITIES: Reveals no cyanosis, clubbing or edema. NEUROLOGIC: Higher functions to be normal. No focal deficits are noted. /RECTAL: Deferred. LABORATORY DATA: White count of 4.4, hemoglobin 9.9, which is stable, it dropped down to 7 and changed requiring total of 4 units of blood, platelet count 155,000. Coag revealed a PTT of 30.4, PT 13.9. Chemistries revealed K of 3.4 down from 3.7, BUN of 30 with creatinine of 0.9, sodium of 137, calcium 7.8, and albumin of 2.4 corrects to normal. Phosphorus 3, magnesium 1.7. Bilirubin is 1.4 with mild elevation of AST of 63. All cultures have been negative. ASSESSMENT: Patient is status post reversal of colostomy with development of hypoxemia and respiratory arrest, for which he required reintubation, subsequently developed subendocardial myocardial infarction, non-ST elevation, for which he underwent cardiac catheterization and stenting. History of perforated diverticulitis, for which he had diverting colostomy few months ago. History of atherosclerotic heart disease, coronary artery disease with multiple stents. Hypokalemia, which is being corrected. History of anemia, multifactorial cause, for which he has received several units of blood. Hemoglobin is stable at 9.9. Mantle cell lymphoma stage IV, which is quiescent at this point in the right lower lobe of the lung. History of mild elevation of the liver enzymes, which is stabilizing. ASSESSMENT, NOTES, AND PLAN: Patient is stable from the point of view of his hemodynamics. Blood count has stabilized. Scan of the head is negative. Patient is post cardiac cath and is being improving dramatically. Patient's stool has been checked for C. difficile. In the meantime he is continuing Flagyl as per ID. Continue to follow the labs. Patient is going to be transferred to the med-surg floor, probably on telemetry. We will request for physical therapy to rehab the patient and see if patient will be a candidate to go to the TCU prior to him getting discharged directly to home, so that we can use some therapy for his deconditioning while he has been in the hospital. Routine post examination instructions have been given to the patient. Labs for a.m. have been requested. Alie Myers MD [facility] # [phone]
[2018-01-09] MEDS: metroNIDAZOLE IV 500 mg/100 ml 500 MG/100 ML BAG IVPB SCH (06:36)
[2018-01-09 06:47] LABS: ALB/GLOB RATIO 0.9 (1.1-1.8); ALBUMIN 2.7 g/dL (3.0-4.8); ALT/SGPT 59 U/L (7-56); AST/SGOT 44 U/L (17-59); BLOOD UREA NITROGEN 9 mg/dL (7-21); CALCIUM 8.1 mg/dL (8.4-10.5); GFR NON-AFRICAN AMERICAN > 60
[2018-01-09] MEDS: Levalbuterol 0.63 MG/3 ML Inhal Soln UD IH SCH ×2 (07:30→13:43)
[2018-01-09 08:21] LABS: BASO # 0.02 K/mm3 (0.0-2.0); BASO % 0.4 % (0.0-3.0); EOS # 0.3 (0.0-0.7); EOS % 5.7 % (1.5-5.0); GRAN # 2.91 (1.4-6.5); HEMOGLOBIN 10.4 g/dL (14.0-18.0); LYMPH # 1.1 (1.2-3.4); MEAN CELL VOLUME 87.6 fl (80.0-105.0); MEAN CORPUSCULAR HEMOGLOBIN 28.7 pg (25.0-35.0); MEAN CORPUSCULAR HGB CONC 32.7 g/dl (31.0-37.0); MEAN PLATELET VOLUME 10.1 fl (7.0-11.0); MONO # 0.5 (0.1-0.6); MONO % 10.9 % (1.0-6.0); RBC 3.63 10^6/uL (3.5-6.1); RED CELL DISTRIBUTION WIDTH 15.7 % (11.5-14.5); WHITE BLOOD COUNT 4.8 10^3/uL (4.5-11.0)
[2018-01-09] MEDS: Insulin Reg-LOW-Coverage SC SCH ×3 (08:24→16:30)
[2018-01-09 08:31] LABS: INR 1.21; PARTIAL THROMBOPLASTIN TIME 29.9 Seconds (25.1-36.5)
[2018-01-09] MEDS: RANEXA 500 MG PO SCH (09:06)
--- NOTE | 2018-01-09 09:43 | CP.PCM.PN ---
<Lizzy Thorne - Last Filed: 01/09/18 09:40> Subjective - Date & Time of Evaluation Date of Evaluation: 01/09/18 Time of Evaluation: 09:40 - Subjective Subjective: Gastroenterology Fellow/PGY6 Progress Note Patient feels well. Notes upper abdominal discomfort. Tolerating diet. Notes unchanged frequent watery stools overnight. 12-point review of systems negative except for as a above. Objective - Vital Signs/Intake and Output Vital Signs (last 24 hours): Temp Pulse Resp BP Pulse Ox 97.9 F 62 19 115/68 95 01/09/18 06:00 01/09/18 06:00 01/09/18 06:00 01/09/18 09:07 01/09/18 06:00 Intake and Output: 01/09/18 01/09/18 06:59 18:59 Intake Total 940 Output Total 144 Balance 796 - Medications Medications: Current Medications Acetaminophen (Tylenol 325mg Tab) 650 mg PO Q6H PRN PRN Reason: Fever >100.4 F Aspirin (Ecotrin) 81 mg PO DAILY [facility] Last Admin: 01/09/18 09:07 Dose: 81 mg Atorvastatin Calcium (Lipitor) 20 mg PO QPM [facility] Last Admin: 01/08/18 17:20 Dose: 20 mg Clopidogrel Bisulfate (Plavix) 75 mg PO DAILY [facility] Last Admin: 01/09/18 09:06 Dose: 75 mg Ezetimibe (Zetia) 10 mg PO DAILY [facility] Last Admin: 01/09/18 09:06 Dose: 10 mg Furosemide (Lasix) 20 mg PO DAILY [facility] Last Admin: 01/09/18 09:07 Dose: 20 mg Metronidazole (Flagyl) 500 mg in 100 mls @ 100 mls/hr IVPB Q8 [facility]; Protocol Last Admin: 01/09/18 06:36 Dose: 100 mls/hr Insulin Human Regular (Humulin R Low) 0 units SC ACHS [facility]; Protocol Last Admin: 01/09/18 08:24 Dose: Not Given Levalbuterol HCl (Xopenex) 0.63 mg IH TIDRESP [facility] Last Admin: 01/09/18 07:30 Dose: Not Given Metoprolol Tartrate (Lopressor) 25 mg PO DAILY [facility] Last Admin: 01/09/18 09:06 Dose: 25 mg Metoprolol Tartrate (Lopressor) 12.5 mg PO QPM [facility] Last Admin: 01/08/18 17:20 Dose: 12.5 mg Montelukast Sodium (Singulair) 10 mg PO QPM [facility] Last Admin: 01/08/18 18:40 Dose: 10 mg Non-Formulary Medication (Rapaflo) 8 mg PO QPM [facility] Last Admin: 01/08/18 18:39 Dose: 8 mg Non-Formulary Medication (Ranexa) 500 mg PO BID [facility] Last Admin: 01/09/18 09:06 Dose: 500 mg Ondansetron HCl (Zofran Inj) 4 mg IVP Q4H PRN PRN Reason: Nausea/Vomiting Oxybutynin Chloride (Ditropan Tab) 5 mg PO HS [facility] Last Admin: 01/08/18 21:48 Dose: 5 mg Oxycodone/Acetaminophen (Percocet 5/325 Mg Tab) 1 tab PO Q6H PRN PRN Reason: Pain, moderate (4-7) Stop: 01/09/18 14:30 Pantoprazole Sodium (Protonix Inj) 40 mg IVP DAILY [facility] Last Admin: 01/09/18 09:07 Dose: 40 mg - Labs Labs: 01/09/18 08:10 01/09/18 06:10 PT 14.0 SECONDS (9.4-12.5) H 01/09/18 08:10 INR 1.21 01/09/18 08:10 APTT 29.9 Seconds (25.1-36.5) 01/09/18 08:10 - Constitutional Appears: Non-toxic, No Acute Distress - Head Exam Head Exam: ATRAUMATIC, NORMOCEPHALIC - Eye Exam Eye Exam: EOMI, PERRL. absent: Scleral icterus Pupil Exam: PERRL. absent: Miosis, Mydriatic - ENT Exam ENT Exam: Mucous Membranes Moist, Normal Oropharynx - Neck Exam Neck Exam: Full ROM, Normal Inspection - Respiratory Exam Respiratory Exam: Clear to Ausculation Bilateral. absent: Rales, Rhonchi, Wheezes - Cardiovascular Exam Cardiovascular Exam: RRR, +S1, +S2. absent: Gallop, Rubs - GI/Abdominal Exam GI & Abdominal Exam: Soft, Tenderness, Normal Bowel Sounds. absent: Distended, Firm, Guarding, Rigid, Organomegaly, Rebound Additional comments: B/L UQ tenderness to palpation - Extremities Exam Extremities Exam: Normal Inspection. absent: Pedal Edema - Neurological Exam Neurological Exam: Alert, Awake - Psychiatric Exam Psychiatric exam: Normal Affect, Normal Mood - Skin Skin Exam: Dry, Intact, Normal Color, Warm Assessment and Plan - Assessment and Plan (Free Text) Assessment: 77 year old male with PMH of stage IV mantle cell lymphoma (quiescence), lung cancer s/p wedge resection, perforated sigmoid diverticulitis s/p Milli procedure 06/2017, CAD s/p stent placement, Diabetes, HTN, and COPD presenting with abdominal pain. Active treatment of elevated troponins POD2 (01/07) catheterization with revascularization of RCA s/p 2 drug-eluting stents, anemia s/p 3Units pRBCs, and POD8 (01/01) colostomy reversal with EGD/colonoscopy 12/31 showing normal EGD and 8mm cecal and 5mm rectal tubular adenomas, desc ending/sigmoid diverticulosis. Plan: -H/H stable -on PPI -stool frequency unchanged -pending Cdiff -on Flagyl 500mg TID -will follow clinical course <Lakisha Casiano V - Last Filed: 01/11/18 00:16> Objective - Vital Signs/Intake and Output Vital Signs (last 24 hours): Temp Pulse Resp BP Pulse Ox 98 F 64 18 111/63 98 01/09/18 16:48 01/09/18 16:48 01/09/18 16:48 01/09/18 16:48 01/09/18 16:48 - Labs Labs: 01/09/18 08:10 01/09/18 06:10 PT 14.0 SECONDS (9.4-12.5) H 01/09/18 08:10 INR 1.21 01/09/18 08:10 APTT 29.9 Seconds (25.1-36.5) 01/09/18 08:10 Attending/Attestation - Attestation I have personally seen and examined this patient.: Yes I have fully participated in the care of the patient.: Yes I have reviewed all pertinent clinical information, including history, physical exam and plan: Yes Notes (Text): This is an addendum to GI progress report dictated by the GI Fellow.The patient was seen and examined earlier. Medical records, lab studies, imagings were reviewed. Last 24 hours events reviewed. Agreed with the above treatment plan as outlined in GI Fellow 's notes with the addition of the following 01/11/18 00:15
--- NOTE | 2018-01-09 11:38 | CP.PCM.PN ---
Subjective - Date & Time of Evaluation Date of Evaluation: 01/09/18 Time of Evaluation: 11:38 Objective - Vital Signs/Intake and Output Vital Signs (last 24 hours): Temp Pulse Resp BP Pulse Ox 97.9 F 71 19 115/68 95 01/09/18 06:00 01/09/18 09:54 01/09/18 06:00 01/09/18 09:07 01/09/18 06:00 Intake and Output: 01/09/18 01/09/18 06:59 18:59 Intake Total 940 Output Total 144 Balance 796 - Medications Medications: Current Medications Acetaminophen (Tylenol 325mg Tab) 650 mg PO Q6H PRN PRN Reason: Fever >100.4 F Aspirin (Ecotrin) 81 mg PO DAILY [facility] Last Admin: 01/09/18 09:07 Dose: 81 mg Atorvastatin Calcium (Lipitor) 20 mg PO QPM [facility] Last Admin: 01/08/18 17:20 Dose: 20 mg Clopidogrel Bisulfate (Plavix) 75 mg PO DAILY [facility] Last Admin: 01/09/18 09:06 Dose: 75 mg Ezetimibe (Zetia) 10 mg PO DAILY [facility] Last Admin: 01/09/18 09:06 Dose: 10 mg Furosemide (Lasix) 20 mg PO DAILY [facility] Last Admin: 01/09/18 09:07 Dose: 20 mg Metronidazole (Flagyl) 500 mg in 100 mls @ 100 mls/hr IVPB Q8 [facility]; Protocol Last Admin: 01/09/18 06:36 Dose: 100 mls/hr Insulin Human Regular (Humulin R Low) 0 units SC ACHS [facility]; Protocol Last Admin: 01/09/18 08:24 Dose: Not Given Levalbuterol HCl (Xopenex) 0.63 mg IH TIDRESP [facility] Last Admin: 01/09/18 07:30 Dose: Not Given Metoprolol Tartrate (Lopressor) 25 mg PO DAILY [facility] Last Admin: 01/09/18 09:06 Dose: 25 mg Metoprolol Tartrate (Lopressor) 12.5 mg PO QPM [facility] Last Admin: 01/08/18 17:20 Dose: 12.5 mg Montelukast Sodium (Singulair) 10 mg PO QPM [facility] Last Admin: 01/08/18 18:40 Dose: 10 mg Non-Formulary Medication (Rapaflo) 8 mg PO QPM [facility] Last Admin: 01/08/18 18:39 Dose: 8 mg Non-Formulary Medication (Ranexa) 500 mg PO BID [facility] Last Admin: 01/09/18 09:06 Dose: 500 mg Ondansetron HCl (Zofran Inj) 4 mg IVP Q4H PRN PRN Reason: Nausea/Vomiting Oxybutynin Chloride (Ditropan Tab) 5 mg PO HS [facility] Last Admin: 01/08/18 21:48 Dose: 5 mg Oxycodone/Acetaminophen (Percocet 5/325 Mg Tab) 1 tab PO Q6H PRN PRN Reason: Pain, moderate (4-7) Stop: 01/09/18 14:30 Pantoprazole Sodium (Protonix Inj) 40 mg IVP DAILY [facility] Last Admin: 01/09/18 09:07 Dose: 40 mg - Labs Labs: 01/09/18 08:10 01/09/18 06:10 PT 14.0 SECONDS (9.4-12.5) H 01/09/18 08:10 INR 1.21 01/09/18 08:10 APTT 29.9 Seconds (25.1-36.5) 01/09/18 08:10
--- NOTE | 2018-01-09 12:46 | CP.PCM.PN ---
Subjective - Date & Time of Evaluation Date of Evaluation: 01/09/18 Time of Evaluation: 09:55 - Subjective Subjective: Comfortable in bed, no fevers, not in distress, no abdominal pain, still having LBM but a little better. Objective - Vital Signs/Intake and Output Vital Signs (last 24 hours): Temp Pulse Resp BP Pulse Ox 98 F 77 32 H 119/67 98 01/08/18 04:00 01/08/18 07:36 01/08/18 07:36 01/08/18 09:16 01/08/18 07:36 Intake and Output: 01/08/18 01/08/18 06:59 18:59 Intake Total 580 Output Total 170 Balance 410 - Medications Medications: Current Medications Acetaminophen (Tylenol 325mg Tab) 650 mg PO Q6H PRN PRN Reason: Fever >100.4 F Aspirin (Ecotrin) 81 mg PO DAILY [facility] Last Admin: 01/08/18 09:17 Dose: 81 mg Atorvastatin Calcium (Lipitor) 20 mg PO QPM [facility] Last Admin: 01/07/18 18:41 Dose: 20 mg Clopidogrel Bisulfate (Plavix) 75 mg PO DAILY [facility] Last Admin: 01/08/18 09:08 Dose: 75 mg Ezetimibe (Zetia) 10 mg PO DAILY [facility] Last Admin: 01/08/18 09:16 Dose: 10 mg Furosemide (Lasix) 20 mg PO DAILY [facility] Last Admin: 01/08/18 09:16 Dose: 20 mg Potassium Chloride (Potassium Chloride 10 Meq/100 Ml) 10 meq in 100 mls @ 50 mls/hr IVPB Q2H [facility] Stop: 01/08/18 15:59 Last Admin: 01/08/18 09:02 Dose: 50 mls/hr Metronidazole (Flagyl) 500 mg in 100 mls @ 100 mls/hr IVPB Q8 [facility]; Protocol Insulin Human Regular (Humulin R Low) 0 units SC ACHS [facility]; Protocol Last Admin: 01/08/18 08:35 Dose: Not Given Levalbuterol HCl (Xopenex) 0.63 mg IH TIDRESP [facility] Last Admin: 01/08/18 07:57 Dose: 0.63 mg Metoprolol Tartrate (Lopressor) 25 mg PO DAILY [facility] Last Admin: 01/08/18 09:13 Dose: 25 mg Metoprolol Tartrate (Lopressor) 12.5 mg PO QPM [facility] Last Admin: 01/07/18 18:41 Dose: 12.5 mg Montelukast Sodium (Singulair) 10 mg PO QPM [facility] Last Admin: 01/07/18 18:41 Dose: 10 mg Non-Formulary Medication (Rapaflo) 8 mg PO QPM [facility] Last Admin: 01/07/18 18:41 Dose: 8 mg Non-Formulary Medication (Ranexa) 500 mg PO BID [facility] Last Admin: 01/08/18 09:10 Dose: 500 mg Ondansetron HCl (Zofran Inj) 4 mg IVP Q4H PRN PRN Reason: Nausea/Vomiting Oxybutynin Chloride (Ditropan Tab) 5 mg PO HS [facility] Last Admin: 01/06/18 21:23 Dose: 5 mg Oxycodone/Acetaminophen (Percocet 5/325 Mg Tab) 1 tab PO Q6H PRN PRN Reason: Pain, moderate (4-7) Stop: 01/09/18 14:30 Pantoprazole Sodium (Protonix Inj) 40 mg IVP DAILY [facility] Last Admin: 01/08/18 09:06 Dose: 40 mg - Labs Labs: 01/08/18 06:00 01/08/18 06:00 PT 13.9 SECONDS (9.4-12.5) H 01/08/18 06:00 INR 1.20 01/08/18 06:00 APTT 30.4 Seconds (25.1-36.5) 01/08/18 09:20 - Constitutional Appears: Chronically Ill - Head Exam Head Exam: NORMAL INSPECTION - Neck Exam Neck Exam: absent: Meningismus - Respiratory Exam Respiratory Exam: Decreased Breath Sounds - Cardiovascular Exam Cardiovascular Exam: +S1, +S2 - GI/Abdominal Exam GI & Abdominal Exam: Soft. absent: Tenderness Assessment and Plan - Assessment and Plan (Free Text) Plan: Assessment S/P SIRS with VDRF due to colostomy reversal loose bowel movement, R/O C. diff. associated diarrhea S/P severe sepsis S/P acute renal failure S/P ventilator-dependent respiratory failure due to acute perforated sigmoid colon with associated diverticulitis S/P exploratory laparotomy, sigmoidectomy and colostomy history of sepsis due to acute bronchitis, with systemic viral illness history of UTI with E. 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 Casiano with Flagyl and will continue this and will follow up stool for C. diff. will continue to monitor clinically
--- NOTE | 2018-01-09 13:55 | CP.PCM.DIS ---
Provider - Provider Date of Admission: 12/30/17 17:03 Attending physician: Ted Santoyo MD Hospital Course - Lab Results Lab Results: Micro Results 01/09/18 06:14 Stool C. difficile Antigen & Toxins A,B - Final 01/01/18 19:47 Blood Blood Culture - Final NO GROWTH AFTER 5 DAYS 01/01/18 19:47 Blood Gram Stain - Final TEST NOT PERFORMED 01/01/18 19:47 Blood Blood Culture - Final NO GROWTH AFTER 5 DAYS 01/01/18 19:47 Blood Gram Stain - Final TEST NOT PERFORMED 01/02/18 12:00 Sputum Gram Stain - Final 01/02/18 12:00 Sputum Sputum Culture - Final NORMAL ORAL KEAGAN 01/01/18 23:30 Urine,Muir Urine Culture - Final No Growth (<1,000 CFU/ML) 01/01/18 16:49 Naris MRSA Culture (Admit) - Final MRSA NOT DETECTED Most Recent Lab Values WBC 4.8 10^3/uL (4.5-11.0) 01/09/18 08:10 RBC 3.63 10^6/uL (3.5-6.1) 01/09/18 08:10 Hgb 10.4 g/dL (14.0-18.0) L 01/09/18 08:10 Hct 31.8 % (42.0-52.0) L 01/09/18 08:10 MCV 87.6 fl (80.0-105.0) 01/09/18 08:10 MCH 28.7 pg (25.0-35.0) 01/09/18 08:10 MCHC 32.7 g/dl (31.0-37.0) 01/09/18 08:10 RDW 15.7 % (11.5-14.5) H 01/09/18 08:10 Plt Count 143 10^3/uL (120.0-450.0) 01/09/18 08:10 MPV 10.1 fl (7.0-11.0) 01/09/18 08:10 Gran % 61.0 % (50.0-68.0) 01/09/18 08:10 Lymph % (Auto) 22.0 % (22.0-35.0) 01/09/18 08:10 [place] % (Auto) 10.9 % (1.0-6.0) H 01/09/18 08:10 Eos % (Auto) 5.7 % (1.5-5.0) H 01/09/18 08:10 Baso % (Auto) 0.4 % (0.0-3.0) 01/09/18 08:10 Gran # 2.91 (1.4-6.5) 01/09/18 08:10 Lymph # (Auto) 1.1 (1.2-3.4) L 01/09/18 08:10 [place] # (Auto) 0.5 (0.1-0.6) 01/09/18 08:10 Eos # (Auto) 0.3 (0.0-0.7) 01/09/18 08:10 Baso # (Auto) 0.02 K/mm3 (0.0-2.0) 01/09/18 08:10 Neutrophils % (Manual) 76 % (50.0-70.0) H 01/01/18 14:20 Lymphocytes % (Manual) 17 % (22.0-35.0) L 01/01/18 14:20 Monocytes % (Manual) 3 % (1.0-6.0) 01/01/18 14:20 Eosinophils % (Manual) 2 % (0.0-3.0) 01/01/18 14:20 Metamyelocytes % 2 % 01/01/18 14:20 Platelet Evaluation Normal (NORMAL) 01/01/18 14:20 PT 14.0 SECONDS (9.4-12.5) H 01/09/18 08:10 INR 1.21 01/09/18 08:10 APTT 29.9 Seconds (25.1-36.5) 01/09/18 08:10 pCO2 45 mm/Hg (35-45) 01/02/18 13:30 pO2 95.0 mm/Hg (80-100) 01/02/18 13:30 HCO3 22.7 mmol/L (21-28) 01/02/18 13:30 ABG pH 7.31 (7.35-7.45) L 01/02/18 13:30 ABG Total CO2 24.1 mmol.L (22-28) 01/02/18 13:30 ABG O2 Saturation 99.2 % (95-98) H 01/02/18 13:30 ABG O2 Content 12.1 ML/dl (15-23) L 01/02/18 11:10 ABG Base Excess -3.7 mmol/L (-2.0-3.0) L 01/02/18 13:30 ABG Hemoglobin 8.4 g/dL (11.7-17.4) L 01/02/18 11:10 ABG Carboxyhemoglobin 1.6 % (0.5-1.5) H 01/02/18 11:10 POC ABG HHb (Measured) 0 % (0-5) 01/02/18 11:10 ABG Methemoglobin 0.8 % (0.0-3.0) 01/02/18 11:10 ABG O2 Capacity 12.1 mL/dl (16-24) L 01/02/18 11:10 ABG Potassium 4.0 mmol/L (3.6-5.2) 01/02/18 13:30 VBG pH 7.29 (7.32-7.43) L 01/02/18 01:25 VBG pCO2 48.0 (40-60) 01/02/18 01:25 VBG HCO3 23.1 mmol/l (21-28) 01/02/18 01:25 VBG Total CO2 24.6 mmol.L (22-28) 01/02/18 01:25 VBG O2 Sat (Calc) 88.5 % (40-65) H 01/02/18 01:25 VBG Base Excess -3.8 mmol/L (0.0-2.0) L 01/02/18 01:25 VBG Potassium 4.4 mmol/L (3.6-5.2) 01/02/18 01:25 Hgb O2 Saturation 97.6 % (95.0-98.0) 01/02/18 11:10 Sodium 140.0 mmol/L (132-148) 01/02/18 13:30 Chloride 113.0 mmol/L (98-107) H 01/02/18 13:30 Glucose 148 mg/dl (75-110) H 01/02/18 13:30 Lactate 0.9 mmol/L (0.7-2.1) 01/02/18 13:30 Mechanical Rate 20 01/01/18 16:11 FiO2 40.0 % 01/02/18 13:30 Tidal Volume 350 01/01/18 16:11 PEEP 5 01/02/18 13:30 Pressure Support 5 01/02/18 13:30 Sodium 135 mmol/L (132-148) 01/09/18 06:10 Potassium 4.1 mmol/L (3.6-5.0) 01/09/18 06:10 Chloride 107 mmol/L (98-107) 01/09/18 06:10 Carbon Dioxide 21 mmol/L (21-33) 01/09/18 06:10 Anion Gap 10 (10-20) 01/09/18 06:10 BUN 9 mg/dL (7-21) 01/09/18 06:10 Creatinine 0.9 mg/dl (0.8-1.5) 01/09/18 06:10 Est GFR ( Amer) > 60 01/09/18 06:10 Est GFR (Non-Af Amer) > 60 01/09/18 06:10 POC Glucose (mg/dL) 107 mg/dL (65-110) 01/09/18 07:11 Random Glucose 116 mg/dL (70-110) H 01/09/18 06:10 Calcium 8.1 mg/dL (8.4-10.5) L 01/09/18 06:10 Phosphorus 3.1 mg/dL (2.5-4.5) 01/09/18 06:10 Magnesium 1.7 mg/dL (1.7-2.2) 01/09/18 06:10 Iron 18 ug/dL (45-180) L 01/03/18 16:00 TIBC 301 ug/dL (261-462) 01/03/18 16:00 % Saturation 6 % (20-55) L 01/03/18 16:00 Ferritin 45.9 ng/mL 01/03/18 16:00 Total Bilirubin 1.3 mg/dL (0.2-1.3) 01/09/18 06:10 Direct Bilirubin 1.2 mg/dL (0.0-0.4) H 01/03/18 16:00 AST 44 U/L (17-59) 01/09/18 06:10 ALT 59 U/L (7-56) H 01/09/18 06:10 Alkaline Phosphatase 134 U/L (38-126) H 01/09/18 06:10 Lactate Dehydrogenase 809 U/L (333-699) H 01/05/18 06:00 Total Creatine Kinase 101 U/L (35-230) 01/05/18 06:00 CK-MB (CK-2) 18.2 ng/mL (0.0-3.6) H 01/04/18 05:40 CK-MB (CK-2) % 4.7 % (2.5-3.0) H 01/04/18 05:40 Troponin I 2.42 ng/mL H* D 01/06/18 05:35 Total Protein 5.6 g/dL (5.8-8.3) L 01/09/18 06:10 Albumin 2.7 g/dL (3.0-4.8) L 01/09/18 06:10 Globulin 2.9 gm/dL 01/09/18 06:10 Albumin/Globulin Ratio 0.9 (1.1-1.8) L 01/09/18 06:10 Amylase 47 U/L (35-125) 12/30/17 15:50 Lipase 24 U/L (23-300) 12/30/17 15:50 25-OH Vitamin D Total 22.1 NG/ML (30.0-100.0) L 01/03/18 16:00 Procalcitonin 0.14 NG/ML (0.19-0.49) L 01/01/18 16:00 Arterial Blood Potassium 4.0 mmol/L (3.6-5.2) 01/02/18 13:30 Venous Blood Potassium 4.4 mmol/L (3.6-5.2) 01/02/18 01:25 Urine Color Yellow (YELLOW) 01/02/18 14:00 Urine Appearance Clear (CLEAR) 01/02/18 14:00 Urine pH 6.0 (4.7-8.0) 01/02/18 14:00 Ur Specific [place] 1.025 (1.005-1.035) 01/02/18 14:00 Urine Protein Negative mg/dL (<30 mg/dL) 01/02/18 14:00 Urine Glucose (UA) Negative mg/dL (NEGATIVE) 01/02/18 14:00 Urine Ketones Trace mg/dL (NEGATIVE) H 01/02/18 14:00 Urine Blood Small (NEGATIVE) H 01/02/18 14:00 Urine Nitrate Negative (NEGATIVE) 01/02/18 14:00 Urine Bilirubin Negative (NEGATIVE) 01/02/18 14:00 Urine Urobilinogen 0.2 E.U./dL (<1 E.U./dL) 01/02/18 14:00 Ur Leukocyte Esterase Negative Qasim/uL (NEGATIVE) 01/02/18 14:00 Urine RBC 10 - 15 /hpf (0-2) 01/02/18 14:00 Urine WBC 0 - 2 /hpf (0-6) 01/02/18 14:00 Ur Epithelial Cells 0 - 2 /hpf (0-5) 01/02/18 14:00 Amorphous Sediment Few 01/02/18 14:00 Urine Bacteria Many (NEG) 01/02/18 14:00 Urine Other [place] 01/02/18 14:00 Ur Random Creatinine 142 mg/dL 01/02/18 14:00 Ur Random Sodium 37 meq/L 01/02/18 14:00 Stool Occult Blood Negative (NEGATIVE) 01/09/18 06:14 Blood Type A NEGATIVE 01/03/18 16:00 Antibody Screen Negative 01/03/18 16:00 Crossmatch See Detail 01/03/18 16:00 BBK History Checked Patient has bt 01/03/18 16:00 Discharge Exam - Head Exam Head Exam: NORMAL INSPECTION Discharge Plan - Follow Up Plan Condition: STABLE Disposition: HOME/ ROUTINE Instructions: Acute Abdomen (Belly Pain), Adult (DC), Ostomy Reversal Additional Instructions: Please continue all medications that patient was receiving as an inpatient while in TCU as ordered in ambulatory orders. The patient has been switched to PO formulations of Protonix and Zofran PRN. Please discontinue the IV formulations of these medications. Please continue all consultations with the following physicians: Dr. Perez, Dr. Callahan, Dr. Oneal, Dr. Casiano, Dr. Pabon, Dr. Duffy, and Dr. Raman. Please take all medications as prescribed while in TCU Referrals: Mark Pabon MD [Staff Provider] - Lakisha Casiano MD [Medical Doctor] -
--- NOTE | 2018-01-09 14:44 | PN ---
DATE: 01/09/2018 SUBJECTIVE: The patient is currently seen on 3R. He still continues to complain of loose stools and diarrhea. Stool for C. diff was sent earlier today. Potassium level is now normal. BUN and creatinine are now normal. MEDICATIONS: Medication list reviewed. The patient is on Ditropan, Ecotrin, Flagyl, insulin sliding scale, Lasix, Lipitor, Lopressor, Percocet, Plavix, Protonix, Ranexa, Rapaflo, Singulair, Xopenex, Zetia, and Zofran. OBJECTIVE: INTAKE/OUTPUT: Intake is 1880, output is 1564. VITAL SIGNS: Blood pressure is 115/68, temperature 97.9, pulse of 71 with a respiratory rate of 19. HEENT: Exam shows him to be normocephalic, atraumatic. Conjunctivae are pale. Sclerae nonicteric. NECK: Supple. No neck vein distention. CHEST: Clear to auscultation and percussion with no rales, rhonchi or wheezing. CARDIOVASCULAR: Regular rate and rhythm without audible murmurs, rubs or gallops. ABDOMEN: Soft. Minimal distention. Nontender. Dressing over his lower abdominal wall intact with no drainage. Bowel sounds are normal. EXTREMITIES: No lower extremity cyanosis, clubbing or edema. LABORATORY DATA AND IMAGING: CBC: White blood cell count today 4.8, hemoglobin 10.4 with a platelet count of 143,000. Chemistries today show normal electrolytes, potassium 4.1, BUN 9 with a creatinine of 0.9. Glucose is 116 with a calcium of 8.1. Mild elevation of his liver enzymes. Microbiology: All cultures are negative. Stool for C. diff is negative. ASSESSMENT: 1. Status post perforated diverticulitis with perforation of the sigmoid colon, status post bowel obstruction, status post laparotomy, status post colostomy, now with reversal of colostomy. 2. [id number] myocardial infarction, status post cardiac catheterization with placement of two stents in the right coronary artery. 3. History of atherosclerotic heart disease, coronary artery disease, status post percutaneous transluminal coronary angioplasty and stents in the past. 4. Status post hypokalemia. The patient's potassium level is now normal. He is receiving potassium supplements on an as-needed basis. 5. Loose stools and diarrhea. Stool for C. diff is negative. GI evaluating. 6. History of anemia. Hemoglobin stable at 10.4. 7. History of mantle cell lymphoma, stage IV, stable. 8. History of lung cancer, status post wedge resection, stable. 9. Mild elevation of his liver enzymes, stable. PLAN: 1. From a renal standpoint, the patient is biochemically stable. Potassium levels are now normal. BUN and creatinine are normal. 2. Continue GI followup for workup of his loose stools and diarrhea. 3. Would suggest following labs on a routine basis. The patient no longer requires daily blood work. Usman Brady MD
[2018-01-09 16:49] VITALS: BP 111/63; PULSE 64; RESP 18; TEMP 98; O2SAT 98
--- NOTE | 2018-01-09 22:25 | PN ---
DATE: 01/09/2018 PULMONARY PROGRESS NOTE REFERRING PHYSICIAN: Ted Santoyo MD. SUBJECTIVE: He is sitting in reclining chair. Night was unremarkable. Feels better. Mild cough. No sputum production. No chest pain. Mild incision site discomfort. Has a watery stool. No leg swelling. No dysuria. OBJECTIVE: GENERAL: In no acute distress. VITAL SIGNS: Temperature is 98, heart rate is 64, respiratory rate is 18, blood pressure 111/63, pulse ox 98% on room air. HEENT: Moist mucous membrane. Crowded airway. NECK: Supple. No JVD. LUNGS: Have a few rhonchi. HEART: S1 and S2. ABDOMEN: Incision site looks okay. Positive bowel sounds. Soft. EXTREMITIES: There is no edema. NEUROLOGICAL: Awake and alert. Follows simple command. MEDICATIONS: Reviewed. Noted no new changes in medications since yesterday. LABORATORY DATA: Shows hemoglobin 10.4, hematocrit 31.8, WBC 4.8, platelet count is 143. INR 1.21, PTT is 30. Sodium 135, potassium 4.1, chloride 107, bicarbonate 21, BUN 9, creatinine 0.9, glucose 116, calcium is 8.1, phosphorus 3.1, magnesium 1.7, AST 44, ALT 59, alk phos is 134, albumin is 2.7. IMPRESSION AND PLAN: Status post laparotomy for reversal of colostomy, history of visceral perforation, coronary artery disease, history of lung cancer requiring wedge resection, mantle cell lymphoma, coronary artery disease, history of coronary stent, diabetes, hypertension, status post respiratory failure requiring resuscitation, presently extubated on room air, status post myocardial infarction requiring 2 stents this week. Pulmonary point of view, doing okay. Continue bronchodilator, incentive spirometer, sleep apnea precaution. Careful with sedation. Gastric prophylaxis, deep venous thrombosis prophylaxis. Fall precaution. Follow up labs in the morning. Thank you and we will follow with you. Thanh Duffy MD
[2018-01-10] MEDS ORDERED: Pantoprazole 40 mg EC Tab PO SCH (06:00)
== END 2018-01-09 17:39 | DRG 628 ==
LOC: ED 14:34 → ERH 17:03 → 3RSO 20:17 → ICU 01-01 14:54 → 3RSO 01-08 17:58
PROVIDERS: ADMIT Family Medicine; ATTEND Family Medicine
PROC: 0DB68ZX Excision of Stomach, Via Natural or Artificial Opening Endoscopic, Diagnostic (ICD-10-PCS; 2017-12-31)
PROC: 0DBP8ZX Excision of Rectum, Via Natural or Artificial Opening Endoscopic, Diagnostic (ICD-10-PCS; 2017-12-31)
PROC: 0DBN0ZZ Excision of Sigmoid Colon, Open Approach (ICD-10-PCS; 2018-01-01)
PROC: 0DBU0ZZ Excision of Omentum, Open Approach (ICD-10-PCS; 2018-01-01)
PROC: 0BH17EZ Insertion of Endotracheal Airway into Trachea, Via Natural or Artificial Opening (ICD-10-PCS; 2018-01-01)
PROC: 5A1945Z Respiratory Ventilation, 24-96 Consecutive Hours (ICD-10-PCS; 2018-01-01)
PROC: 30233N1 Transfusion of Nonautologous Red Blood Cells into Peripheral Vein, Percutaneous Approach (ICD-10-PCS; 2018-01-01)
PROC: 0DBP0ZZ Excision of Rectum, Open Approach (ICD-10-PCS; principal; 2018-01-01 07:30)
PROC: 0DNW0ZZ Release Peritoneum, Open Approach (ICD-10-PCS; 2018-01-01 07:30)
PROC: 027035Z Dilation of Coronary Artery, One Artery with Two Drug-eluting Intraluminal Devices, Percutaneous Approach (ICD-10-PCS; 2018-01-07)
PROC: 4A023N7 Measurement of Cardiac Sampling and Pressure, Left Heart, Percutaneous Approach (ICD-10-PCS; 2018-01-07)
PROC: B216YZZ Fluoroscopy of Right and Left Heart using Other Contrast (ICD-10-PCS; 2018-01-07)
PROC: B2111ZZ Fluoroscopy of Multiple Coronary Arteries using Low Osmolar Contrast (ICD-10-PCS; 2018-01-07)
DX: E86.0 Dehydration (principal); J95.821 Acute postprocedural respiratory failure; R09.2 Respiratory arrest; I21.A1 Myocardial infarction type 2; A41.9 Sepsis, unspecified organism; C83.10 Mantle cell lymphoma, unspecified site; K91.840 Postprocedural hemorrhage of a digestive system organ or structure following a digestive system procedure; D62 Acute posthemorrhagic anemia; G93.40 Encephalopathy, unspecified; Z99.11 Dependence on respirator [ventilator] status; K57.30 Diverticulosis of large intestine without perforation or abscess without bleeding; I10 Essential (primary) hypertension; I25.10 Atherosclerotic heart disease of native coronary artery without angina pectoris; E11.9 Type 2 diabetes mellitus without complications; N40.0 Benign prostatic hyperplasia without lower urinary tract symptoms; J44.9 Chronic obstructive pulmonary disease, unspecified; Z85.118 Personal history of other malignant neoplasm of bronchus and lung; E87.2 Acidosis; E87.4 Mixed disorder of acid-base balance; E87.6 Hypokalemia; E83.51 Hypocalcemia; D12.0 Benign neoplasm of cecum; D64.9 Anemia, unspecified; E78.5 Hyperlipidemia, unspecified; E83.39 Other disorders of phosphorus metabolism; G47.30 Sleep apnea, unspecified; K62.1 Rectal polyp; K64.8 Other hemorrhoids; Y95 Nosocomial condition; Z43.3 Encounter for attention to colostomy; I27.20 Pulmonary hypertension, unspecified; I08.0 Rheumatic disorders of both mitral and aortic valves; I65.21 Occlusion and stenosis of right carotid artery; J32.2 Chronic ethmoidal sinusitis; K21.0 Gastro-esophageal reflux disease with esophagitis; K29.70 Gastritis, unspecified, without bleeding; Z79.02 Long term (current) use of antithrombotics/antiplatelets; Z79.82 Long term (current) use of aspirin; Z79.84 Long term (current) use of oral hypoglycemic drugs; Z79.899 Other long term (current) drug therapy; Z86.19 Personal history of other infectious and parasitic diseases; Z86.73 Personal history of transient ischemic attack (TIA), and cerebral infarction without residual deficits; Z87.01 Personal history of pneumonia (recurrent); Z87.440 Personal history of urinary (tract) infections; Z88.1 Allergy status to other antibiotic agents; Z92.21 Personal history of antineoplastic chemotherapy; Z92.3 Personal history of irradiation; Z98.0 Intestinal bypass and anastomosis status; Z88.0 Allergy status to penicillin; Z88.2 Allergy status to sulfonamides; Z88.8 Allergy status to other drugs, medicaments and biological substances; H11.31 Conjunctival hemorrhage, right eye

== ENCOUNTER 2018-01-09 17:04 | Inpatient (IN) | payer OTHER ==
[2018-01-09 18:12] VITALS: BMI 27.6
[2018-01-09] MEDS ORDERED: Oxycodone/Acetaminophen 5/325 mg Tab PO PRN (18:32)
[2018-01-09] MEDS ORDERED: Pneumococcal 23-Valent Vaccine IM ONE (19:55)
[2018-01-09] MEDS ORDERED: Influenza Vaccine 60 mcg/0.5 mL SYR (4YR UP) IM ONE (19:55)
[2018-01-09] MEDS: Levalbuterol 0.63 MG/3 ML Inhal Soln UD IH SCH (20:50)
[2018-01-09] MEDS: Insulin Reg-LOW-Coverage SC SCH (22:15)
[2018-01-09] MEDS: SILODOSIN 8 MG PO SCH (22:20)
[2018-01-10] MEDS: Insulin Reg-LOW-Coverage SC SCH ×4 (06:38→22:14)
[2018-01-10] MEDS: Pantoprazole 40 mg EC Tab PO SCH (06:39)
[2018-01-10 07:04] LABS: HEMOGLOBIN 9.6 g/dL (14.0-18.0); MEAN CELL VOLUME 86.5 fl (80.0-105.0); MEAN CORPUSCULAR HEMOGLOBIN 28.8 pg (25.0-35.0); MEAN CORPUSCULAR HGB CONC 33.3 g/dl (31.0-37.0); MEAN PLATELET VOLUME 10.3 fl (7.0-11.0); RBC 3.33 10^6/uL (3.5-6.1); RED CELL DISTRIBUTION WIDTH 15.7 % (11.5-14.5); WHITE BLOOD COUNT 4.8 10^3/uL (4.5-11.0)
[2018-01-10] MEDS: Levalbuterol 0.63 MG/3 ML Inhal Soln UD IH SCH ×3 (07:18→20:25)
[2018-01-10 07:19] LABS: ALB/GLOB RATIO 0.9 (1.1-1.8); ALBUMIN 2.4 g/dL (3.0-4.8); ALT/SGPT 52 U/L (7-56); AST/SGOT 31 U/L (17-59); BLOOD UREA NITROGEN 7 mg/dL (7-21); CALCIUM 7.8 mg/dL (8.4-10.5); GFR NON-AFRICAN AMERICAN > 60
--- NOTE | 2018-01-10 07:58 | CP.PCM.CON ---
History of Present Illness - History of Present Illness History of Present Illness: General Surgery Consult Note for Dr. Hoyt covering for Dr. Pabon 77M, past medical history of exploratory laparotomy sigmoidectomy and colostomy, mantle cell lymphoma, ASCVD, lung cancer, cardiac stenting, DM, HLD, BPH, COPD, and diverticulosis, is s/p colostomy reversal on 01/01/18. Patient has been tolerating his diet. Patient has been complaining of diarrhea for the past few days. Minimal ambulation however physical therapy has been consulted secondary to deconditioning. Denies fever, chills, nausea, vomiting, shortness of breath, chest pain, or urinary symptoms. Review of Systems - Constitutional Constitutional: absent: Chills, Fever - EENT Eyes: absent: Change in Vision Ears: absent: Dizziness Nose/Mouth/Throat: absent: Nasal Discharge - Cardiovascular Cardiovascular: absent: Chest Pain, Dyspnea - Respiratory Respiratory: absent: Cough, Dyspnea - Gastrointestinal Gastrointestinal: absent: Abdominal Pain, Diarrhea, Nausea, Vomiting - Genitourinary Genitourinary: absent: Difficulty Urinating, Dysuria - Musculoskeletal Musculoskeletal: absent: Back Pain, Neck Pain - Integumentary Integumentary: absent: Bleeding Lesions, Changing Lesions - Neurological Neurological: absent: Dizziness, Headaches Past Patient History - Infectious Disease Hx of Infectious Diseases: None - Tetanus Immunizations Tetanus Immunization: Unknown - Past Medical History & Family History Past Medical History?: Yes - Past Social History Smoking Status: Never Smoked - CARDIAC Hx Cardiac Disorders: Yes (CAD, S/P 4 cardiac stents AND 2 STENTS ON 01/08/2018, [place]) Hx Hypertension: Yes - PULMONARY Hx Respiratory Disorders: Yes Hx Pneumonia: Yes - NEUROLOGICAL Hx Paralysis: No - HEENT Hx HEENT Problems: Yes Hx Cataracts: (h0 b/lhearing aid) - RENAL Hx Chronic Kidney Disease: No - ENDOCRINE/METABOLIC Hx Diabetes Mellitus Type 2: Yes - HEMATOLOGICAL/ONCOLOGICAL Hx Blood Transfusions: Yes Hx Blood Transfusion Reaction: No - INTEGUMENTARY Hx Dermatological Problems: No - MUSCULOSKELETAL/RHEUMATOLOGICAL Hx Falls: No - GASTROINTESTINAL Hx Gastrointestinal Disorders: Yes (COLITIS) - GENITOURINARY/GYNECOLOGICAL Hx Genitourinary Disorders: Yes (UTI,ACUTE RENAL FAILURE) Hx Reproductive Disorders: Yes (BPH) - PSYCHIATRIC Hx Substance Use: No - SURGICAL HISTORY Hx Cardiac Catheterization: Yes (sents x4) Hx Musculoskeletal Surgery: Yes Hx Open Heart Surgery: Yes - ANESTHESIA Hx Anesthesia Reactions: No Hx Malignant Hyperthermia: No Meds Allergies/Adverse Reactions: Allergies Allergy/AdvReac Type Severity Reaction Status Date / Time azithromycin Allergy Severe ANGIOEDEMA Verified 01/09/18 19:42 erythromycin base Allergy Severe ANGIOEDEMA Verified 01/09/18 19:42 Penicillins Allergy Severe ANAPHYLAXIS Verified 01/09/18 19:42 cephalexin monohydrate Allergy Intermediate RASH Verified 01/09/18 19:42 [From Keflex] gabapentin Allergy Intermediate RASH Verified 01/09/18 19:42 pregabalin Allergy Intermediate RASH Verified 01/09/18 19:42 Sulfa (Sulfonamide Allergy Intermediate RASH Verified 01/09/18 19:42 Antibiotics) nitro paste Allergy Intermediate DIZZINESS/H Uncoded 01/09/18 19:42 YPOTENSION Imbrovica Allergy FEVER Uncoded 01/09/18 19:42 - Medications Medications: Current Medications Aspirin (Ecotrin) 81 mg PO 0800 ALEX; Protocol Atorvastatin Calcium (Lipitor) 20 mg PO QPM ALEX; Protocol Clopidogrel Bisulfate (Plavix) 75 mg PO DAILY ALEX; Protocol Ezetimibe (Zetia) 10 mg PO DAILY [facility]LEX; Protocol Furosemide (Lasix) 20 mg PO DAILY [facility]; Protocol Insulin Human Regular (Humulin R Low) 0 units SC ACHS [facility]; Protocol Last Admin: 01/10/18 06:38 Dose: Not Given Levalbuterol HCl (Xopenex) 0.63 mg IH TIDRESP [facility]LEX; Protocol Last Admin: 01/10/18 07:18 Dose: 0.63 mg Metoprolol Tartrate (Lopressor) 12.5 mg PO QPM [facility]LEX; Protocol Metoprolol Tartrate (Lopressor) 25 mg PO 0800 ALEX; Protocol Metronidazole (Flagyl) 500 mg PO Q8 [facility]LEX; Protocol Last Admin: 01/10/18 06:39 Dose: 500 mg Montelukast Sodium (Singulair) 10 mg PO QPM [facility]LEX; Protocol Non-Formulary Medication (Silodosin [Rapaflo]) 8 mg PO QPM ALEX Last Admin: 01/09/18 22:20 Dose: 8 mg Non-Formulary Medication (Ranolazine [Ranexa]) 500 mg PO BID ALEX Ondansetron HCl (Zofran Odt) 4 mg PO Q8H PRN; Protocol PRN Reason: Nausea/Vomiting Oxybutynin Chloride (Ditropan Tab) 5 mg PO HS ALEX; Protocol Last Admin: 01/09/18 22:15 Dose: 5 mg Oxycodone/Acetaminophen (Percocet 5/325 Mg Tab) 1 tab PO Q6H PRN; Protocol PRN Reason: Pain, moderate (4-7) Stop: 01/12/18 18:33 Pantoprazole Sodium (Protonix Ec Tab) 40 mg PO 0600 ALEX; Protocol Last Admin: 01/10/18 06:39 Dose: 40 mg Physical Exam - Constitutional Appears: Well, Non-toxic, No Acute Distress - Head Exam Head Exam: ATRAUMATIC, NORMAL INSPECTION, NORMOCEPHALIC - Eye Exam Eye Exam: EOMI - ENT Exam ENT Exam: Mucous Membranes Moist - GI/Abdominal Exam GI & Abdominal Exam: Soft. absent: Distended, Tenderness Additional comments: abdominal incisions clean/dry/intact Jak output 100cc serosangionous overnight - Neurological Exam Neurological exam: Alert - Psychiatric Exam Psychiatric exam: Normal Affect, Normal Mood - Skin Skin Exam: Dry, Intact, Normal Color, Warm Results - Vital Signs Recent Vital Signs: Last Vital Signs Temp 98 F 01/09/18 19:45 Pulse 83 01/09/18 20:55 Resp 18 01/09/18 19:45 BP 99/59 L 01/09/18 19:45 Pulse Ox - Labs Result Diagrams: 01/10/18 06:40 01/10/18 06:40 Labs: Laboratory Results - last 24 hr 01/09/18 01/10/18 01/10/18 22:02 06:40 06:40 WBC 4.8 RBC 3.33 L Hgb 9.6 L Hct 28.8 L MCV 86.5 MCH 28.8 MCHC 33.3 RDW 15.7 H Plt Count 152 MPV 10.3 Sodium 136 Potassium 3.5 L Chloride 104 Carbon Dioxide 26 Anion Gap 9 L BUN 7 Creatinine 0.9 Est GFR ( Amer) > 60 Est GFR (Non-Af Amer) > 60 POC Glucose (mg/dL) 135 H Random Glucose 125 H Calcium 7.8 L Total Bilirubin 0.8 AST 31 ALT 52 Alkaline Phosphatase 108 Total Protein 4.9 L Albumin 2.4 L Globulin 2.5 Albumin/Globulin Ratio 0.9 L Assessment & Plan - Assessment and Plan (Free Text) Assessment: 77M s/p colostomy reversal POD9 Plan: Patient transferred to TCU Drain removal prior to discharge Continue regular diet Dressing changes, keep wound clean and dry Staple removal between [id number] No further surgical intervention at this time Further recommendations per Dr. Hoyt/Dr. Cm Nielson PGY1
[2018-01-10] MEDS ORDERED: Potassium Chloride 40 mEq/30 ml LIQ UD PO ONE (08:33)
[2018-01-10] MEDS: Non Formulary Medication (Ranolazine [Ranexa] 500 MG) PO SCH ×2 (09:02→17:24)
--- NOTE | 2018-01-10 09:40 | CP.PCM.HP ---
<Mariusz Méndez - Last Filed: 01/10/18 16:46> History of Present Illness - History of Present Illness History of Present Illness: Hematology/Oncology History and Physical (Dr. Myers's Service) CC: Abdominal Pain HPI: Mr. Marques is a 77 year old male with a past medical history significant for stage IV mantle cell lymphoma (quiescence), lung cancer s/p wedge resection, hypoglobulinemia, CAD s/p stent placement, DM2, HTN, COPD, and perforated sigmoid diverticulitis s/p Milli procedure who presented with abdominal pain and is now transferred to the TCU for further physical rehabilitation. Patient reports that he is feeling better today. He reports improvement in both his abdominal pain and frequency of his loose stools. He denies any further complaints including fevers, chills, headache, chest pain, SOB, N/V/C, changes in urine output, or any new skin changes. PMH: As stated above PSH: Rob procedure, Colostomy reversal, and lung wedge resection Family History: Non-Contributory Social History: Denies any tobacco, alcohol or illicit drug abuse Allergies: Zithromax, Keflex and PCN Home Medications: As per MAR Present on Admission - Present on Admission Any Indicators Present on Admission: No Review of Systems - Review of Systems Review of Systems: As stated in HPI, otherwise negative Past Patient History - Infectious Disease Hx of Infectious Diseases: None - Tetanus Immunizations Tetanus Immunization: Unknown - Past Medical History & Family History Past Medical History?: Yes - Past Social History Smoking Status: Never Smoked - CARDIAC Hx Cardiac Disorders: Yes (CAD, S/P 4 cardiac stents AND 2 STENTS ON 01/08/2018, [place]) Hx Hypertension: Yes - PULMONARY Hx Respiratory Disorders: Yes Hx Pneumonia: Yes - NEUROLOGICAL Hx Paralysis: No - HEENT Hx HEENT Problems: Yes Hx Cataracts: ([facility] b/l[facility]) - RENAL Hx Chronic Kidney Disease: No - ENDOCRINE/METABOLIC Hx Diabetes Mellitus Type 2: Yes - HEMATOLOGICAL/ONCOLOGICAL Hx Blood Transfusions: Yes Hx Blood Transfusion Reaction: No - INTEGUMENTARY Hx Dermatological Problems: No - MUSCULOSKELETAL/RHEUMATOLOGICAL Hx Falls: No - GASTROINTESTINAL Hx Gastrointestinal Disorders: Yes (COLITIS) - GENITOURINARY/GYNECOLOGICAL Hx Genitourinary Disorders: Yes (UTI,ACUTE RENAL FAILURE) Hx Reproductive Disorders: Yes (BPH) - PSYCHIATRIC Hx Substance Use: No - SURGICAL HISTORY Hx Cardiac Catheterization: Yes (sents x4) Hx Musculoskeletal Surgery: Yes Hx Open Heart Surgery: Yes - ANESTHESIA Hx Anesthesia Reactions: No Hx Malignant Hyperthermia: No Meds Allergies/Adverse Reactions: Allergies Allergy/AdvReac Type Severity Reaction Status Date / Time azithromycin Allergy Severe ANGIOEDEMA Verified 01/09/18 19:42 erythromycin base Allergy Severe ANGIOEDEMA Verified 01/09/18 19:42 Penicillins Allergy Severe ANAPHYLAXIS Verified 01/09/18 19:42 cephalexin monohydrate Allergy Intermediate RASH Verified 01/09/18 19:42 [From Keflex] gabapentin Allergy Intermediate RASH Verified 01/09/18 19:42 pregabalin Allergy Intermediate RASH Verified 01/09/18 19:42 Sulfa (Sulfonamide Allergy Intermediate RASH Verified 01/09/18 19:42 Antibiotics) nitro paste Allergy Intermediate DIZZINESS/H Uncoded 01/09/18 19:42 YPOTENSION Imbrovica Allergy FEVER Uncoded 01/09/18 19:42 Physical Exam - Constitutional Additional comments: Non-toxic, No Acute Distress - Head Exam Head Exam: ATRAUMATIC, NORMOCEPHALIC - Eye Exam Eye Exam: EOMI, PERRL. absent: Scleral icterus Pupil Exam: PERRL. absent: Miosis, Mydriatic - ENT Exam ENT Exam: Mucous Membranes Moist, Normal Oropharynx - Neck Exam Neck Exam: Full ROM, Normal Inspection - Respiratory Exam Respiratory Exam: Clear to Ausculation Bilateral. absent: Rales, Rhonchi, Wheezes - Cardiovascular Exam Cardiovascular Exam: RRR, +S1, +S2. absent: Gallop, Rubs - GI/Abdominal Exam GI & Abdominal Exam: Soft, Normal Bowel Sounds. absent: Distended, Firm, Guarding, Rigid, Tenderness, Organomegaly, Rebound Additional comments: RLQ KERI drain without signs of clinical infection of surrounding soft tissues - Extremities Exam Extremities Exam: Normal Inspection. absent: Pedal Edema - Neurological Exam Neurological Exam: Alert, Awake - Psychiatric Exam Psychiatric exam: Normal Affect, Normal Mood - Skin Skin Exam: Dry, Intact, Normal Color, Warm Results - Vital Signs Recent Vital Signs: Last Vital Signs Temp 98 F 01/09/18 19:45 Pulse 83 01/09/18 20:55 Resp 18 01/09/18 19:45 BP 109/58 L 01/10/18 09:00 Pulse Ox - Labs Result Diagrams: 01/10/18 06:40 01/10/18 06:40 Labs: Laboratory Results - last 24 hr 01/09/18 01/10/18 01/10/18 22:02 06:40 06:40 WBC 4.8 RBC 3.33 L Hgb 9.6 L Hct 28.8 L MCV 86.5 MCH 28.8 MCHC 33.3 RDW 15.7 H Plt Count 152 MPV 10.3 Sodium 136 Potassium 3.5 L Chloride 104 Carbon Dioxide 26 Anion Gap 9 L BUN 7 Creatinine 0.9 Est GFR ( Amer) > 60 Est GFR (Non-Af Amer) > 60 POC Glucose (mg/dL) 135 H Random Glucose 125 H Calcium 7.8 L Total Bilirubin 0.8 AST 31 ALT 52 Alkaline Phosphatase 108 Total Protein 4.9 L Albumin 2.4 L Globulin 2.5 Albumin/Globulin Ratio 0.9 L Assessment & Plan - Assessment and Plan (Free Text) Assessment: 77 year old male with a past medical history significant for stage IV mantle cell lymphoma (quiescence), lung cancer s/p wedge resection, hypoglobulinemia, CAD s/p stent placement, DM2, HTN, COPD, and perforated sigmoid diverticulitis s/p Milli procedure who presented with abdominal pain and is now transferred to the TCU for further physical rehabilitation. Plan: 1. S/P Colostomy Reversal -EGD/CSPY report noted -Continue Percocet PRN for pain control -Strict I/O's, OOB to chair and IS -GI and Surgery consulted, all recommendations appreciated 2. Diarrhea -Improving -History of C. Diff noted -Continue Flagyl PO -Low fiber diet 3. History of CAD -S/P Cardiac cath with two BRAULIO placed -Continue Plavix, ASA, Lipitor, Zetia, and Lopressor -Cardiology consulted, all recommendations appreciated 4. Normocytic Anemia -H/H stable -CT abdomen/pelvis without contrast showing no intra-abdominal and/or retroperitoneal hemorrhage -S/P two units of pRBC's -Continue to monitor with daily CBC's 5. History of COPD -Continue Duonebs -Continue Singulair 6. History of BPH -Continue Rapaflo and Oxybutynin 7. History of DM2 -SSI-Low and Accuchecks ACHS GI Prophylaxis: Protonix DVT Prophylaxis: SCD's Diet: Moderate Consistent Carbohydrate with Low Fiber Code Status: Full code Patient seen and case discussed with attending, Dr. Myers. Mariusz Méndez PGY2 - Date & Time Date: 01/10/18 Time: 09:40 <Alie Myers P - Last Filed: 01/13/18 14:27> Results - Vital Signs Recent Vital Signs: Last Vital Signs Temp 98.3 F 01/13/18 10:00 Pulse 93 H 01/13/18 10:00 Resp 20 01/13/18 10:00 BP 99/63 L 01/13/18 10:00 Pulse Ox 99 01/13/18 10:00 - Labs Result Diagrams: 01/12/18 11:00 01/12/18 11:00 Attending/Attestation - Attestation I have personally seen and examined this patient.: Yes I have fully participated in the care of the patient.: Yes I have reviewed all pertinent clinical information: Yes
[2018-01-10] MEDS ORDERED: Non Formulary Medication (Ranolazine [Ranexa] 500 MG) PO SCH (10:00)
--- NOTE | 2018-01-10 12:14 | CP.PCM.CON ---
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 of [place]. The procedure went well and the patient was being monitored in the hospital. She is now transferred to [facility] for continued medical therapy and physical rehab. Infectious diseases consult is requested to further evaluate and manage. He was having loose bowel movement and it is now improving. He denies fever or chills, no nausea or vomiting, no chest pain, no SOB, no headache or dizziness, no abdominal pain, no dysuria, no cough or colds, no sore throat, no abdominal pain. Review of Systems - Review of Systems All systems: reviewed and no additional remarkable complaints except (as per HPI) Past Patient History - Infectious Disease Hx of Infectious Diseases: None - Tetanus Immunizations Tetanus Immunization: Unknown - Past Medical History & Family History Past Medical History?: Yes - Past Social History Smoking Status: Never Smoked - CARDIAC Hx Cardiac Disorders: Yes (CAD, S/P 4 cardiac stents AND 2 STENTS ON 01/08/2018, [place]) Hx Hypertension: Yes - PULMONARY Hx Respiratory Disorders: Yes Hx Pneumonia: Yes - NEUROLOGICAL Hx Paralysis: No - HEENT Hx HEENT Problems: Yes Hx Cataracts: ([facility] b/lhearing aid) - RENAL Hx Chronic Kidney Disease: No - ENDOCRINE/METABOLIC Hx Diabetes Mellitus Type 2: Yes - HEMATOLOGICAL/ONCOLOGICAL Hx Blood Transfusions: Yes Hx Blood Transfusion Reaction: No - INTEGUMENTARY Hx Dermatological Problems: No - MUSCULOSKELETAL/RHEUMATOLOGICAL Hx Falls: No - GASTROINTESTINAL Hx Gastrointestinal Disorders: Yes (COLITIS) - GENITOURINARY/GYNECOLOGICAL Hx Genitourinary Disorders: Yes (UTI,ACUTE RENAL FAILURE) Hx Reproductive Disorders: Yes (BPH) - PSYCHIATRIC Hx Substance Use: No - SURGICAL HISTORY Hx Cardiac Catheterization: Yes (sents x4) Hx Musculoskeletal Surgery: Yes Hx Open Heart Surgery: Yes - ANESTHESIA Hx Anesthesia Reactions: No Hx Malignant Hyperthermia: No Meds Allergies/Adverse Reactions: Allergies Allergy/AdvReac Type Severity Reaction Status Date / Time azithromycin Allergy Severe ANGIOEDEMA Verified 01/09/18 19:42 erythromycin base Allergy Severe ANGIOEDEMA Verified 01/09/18 19:42 Penicillins Allergy Severe ANAPHYLAXIS Verified 01/09/18 19:42 cephalexin monohydrate Allergy Intermediate RASH Verified 01/09/18 19:42 [From Keflex] gabapentin Allergy Intermediate RASH Verified 01/09/18 19:42 pregabalin Allergy Intermediate RASH Verified 01/09/18 19:42 Sulfa (Sulfonamide Allergy Intermediate RASH Verified 01/09/18 19:42 Antibiotics) nitro paste Allergy Intermediate DIZZINESS/H Uncoded 01/09/18 19:42 YPOTENSION Imbrovica Allergy FEVER Uncoded 01/09/18 19:42 - Medications Medications: Current Medications Aspirin (Ecotrin) 81 mg PO 0800 ALEX; Protocol Atorvastatin Calcium (Lipitor) 20 mg PO QPM ALEX; Protocol Clopidogrel Bisulfate (Plavix) 75 mg PO DAILY ALEX; Protocol Ezetimibe (Zetia) 10 mg PO DAILY ALEX; Protocol Furosemide (Lasix) 20 mg PO DAILY ALEX; Protocol Insulin Human Regular (Humulin R Low) 0 units SC ACHS [facility]; Protocol Last Admin: 01/09/18 22:15 Dose: Not Given Levalbuterol HCl (Xopenex) 0.63 mg IH TIDRESP ALEX; Protocol Last Admin: 01/09/18 20:50 Dose: 0.63 mg Metoprolol Tartrate (Lopressor) 12.5 mg PO QPM ALEX; Protocol Metoprolol Tartrate (Lopressor) 25 mg PO 0800 ALEX; Protocol Metronidazole (Flagyl) 500 mg PO Q8 ALEX; Protocol Last Admin: 01/09/18 22:15 Dose: 500 mg Montelukast Sodium (Singulair) 10 mg PO QPM ALEX; Protocol Non-Formulary Medication (Silodosin [Rapaflo]) 8 mg PO QPM ALEX Last Admin: 01/09/18 22:20 Dose: 8 mg Non-Formulary Medication (Ranolazine [Ranexa]) 500 mg PO BID ALEX Ondansetron HCl (Zofran Odt) 4 mg PO Q8H PRN; Protocol PRN Reason: Nausea/Vomiting Oxybutynin Chloride (Ditropan Tab) 5 mg PO HS ALEX; Protocol Last Admin: 01/09/18 22:15 Dose: 5 mg Oxycodone/Acetaminophen (Percocet 5/325 Mg Tab) 1 tab PO Q6H PRN; Protocol PRN Reason: Pain, moderate (4-7) Stop: 01/12/18 18:33 Pantoprazole Sodium (Protonix Ec Tab) 40 mg PO 0600 ALEX; Protocol Physical Exam - Constitutional Appears: Chronically Ill - Head Exam Head Exam: NORMAL INSPECTION - Neck Exam Neck exam: Negative for: Meningismus - Respiratory Exam Respiratory Exam: Decreased Breath Sounds - Cardiovascular Exam Cardiovascular Exam: +S1, +S2 - GI/Abdominal Exam GI & Abdominal Exam: Soft. absent: Tenderness Results - Vital Signs Recent Vital Signs: Last Vital Signs Temp 98 F 01/09/18 19:45 Pulse 83 01/09/18 20:55 Resp 18 01/09/18 19:45 BP 99/59 L 01/09/18 19:45 Pulse Ox - Labs Result Diagrams: 01/10/18 06:40 01/10/18 06:40 Labs: Laboratory Results - last 24 hr 01/09/18 22:02 POC Glucose (mg/dL) 135 H Assessment & Plan - Assessment and Plan (Free Text) Plan: Assessment S/P SIRS with VDRF due to colostomy reversal loose bowel movement, C. diff test is negaitve S/P severe sepsis S/P acute renal failure S/P ventilator-dependent respiratory failure due to acute perforated sigmoid colon with associated diverticulitis S/P exploratory laparotomy, sigmoidectomy and colostomy history of sepsis due to acute bronchitis, with systemic viral illness history of UTI with E. 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 Casiano on Flagyl (day 3); stool for C. diff. is negative will continue to monitor clinically
--- NOTE | 2018-01-10 14:11 | CP.PCM.PN ---
<Lizzy Thorne - Last Filed: 01/10/18 14:07> Subjective - Date & Time of Evaluation Date of Evaluation: 01/10/18 Time of Evaluation: 14:08 - Subjective Subjective: Gastroenterology Fellow/PGY6 Progress Note Patient feels well. Notes improving upper abdominal discomfort. Tolerating diet. Notes decreased stool frequency overnight. 12-point review of systems negative except for as a above. Objective - Vital Signs/Intake and Output Vital Signs (last 24 hours): Temp Pulse Resp BP Pulse Ox 98 F 83 18 109/58 L 01/09/18 19:45 01/09/18 20:55 01/09/18 19:45 01/10/18 09:00 Intake and Output: 01/10/18 01/10/18 06:59 18:59 Output Total 100 100 Balance -100 -100 - Medications Medications: Current Medications Aspirin (Ecotrin) 81 mg PO 0800 ALEX; Protocol Last Admin: 01/10/18 08:57 Dose: 81 mg Atorvastatin Calcium (Lipitor) 20 mg PO QPM ALEX; Protocol Clopidogrel Bisulfate (Plavix) 75 mg PO DAILY ALEX; Protocol Last Admin: 01/10/18 09:01 Dose: 75 mg Ezetimibe (Zetia) 10 mg PO DAILY ALEX; Protocol Last Admin: 01/10/18 09:02 Dose: 10 mg Furosemide (Lasix) 20 mg PO DAILY ALEX; Protocol Last Admin: 01/10/18 09:00 Dose: 20 mg Insulin Human Regular (Humulin R Low) 0 units SC ACHS ALEX; Protocol Last Admin: 01/10/18 11:45 Dose: Not Given Levalbuterol HCl (Xopenex) 0.63 mg IH TIDRESP ALEX; Protocol Last Admin: 01/10/18 13:32 Dose: 0.63 mg Metoprolol Tartrate (Lopressor) 12.5 mg PO QPM ALEX; Protocol Metoprolol Tartrate (Lopressor) 25 mg PO 0800 ALEX; Protocol Last Admin: 01/10/18 09:01 Dose: Not Given Metronidazole (Flagyl) 500 mg PO Q8 ALEX; Protocol Last Admin: 01/10/18 06:39 Dose: 500 mg Montelukast Sodium (Singulair) 10 mg PO QPM ALEX; Protocol Non-Formulary Medication (Silodosin [Rapaflo]) 8 mg PO QPM ALEX Last Admin: 01/09/18 22:20 Dose: 8 mg Non-Formulary Medication (Ranolazine [Ranexa]) 500 mg PO BID [facility] Last Admin: 01/10/18 09:02 Dose: 500 mg Ondansetron HCl (Zofran Odt) 4 mg PO Q8H PRN; Protocol PRN Reason: Nausea/Vomiting Oxybutynin Chloride (Ditropan Tab) 5 mg PO HS [facility]; Protocol Last Admin: 01/09/18 22:15 Dose: 5 mg Oxycodone/Acetaminophen (Percocet 5/325 Mg Tab) 1 tab PO Q6H PRN; Protocol PRN Reason: Pain, moderate (4-7) Stop: 01/12/18 18:33 Pantoprazole Sodium (Protonix Ec Tab) 40 mg PO 0600 [facility]; Protocol Last Admin: 01/10/18 06:39 Dose: 40 mg - Labs Labs: 01/10/18 06:40 01/10/18 06:40 - Constitutional Appears: Non-toxic, No Acute Distress - Head Exam Head Exam: ATRAUMATIC, NORMOCEPHALIC - Eye Exam Eye Exam: EOMI, PERRL. absent: Scleral icterus Pupil Exam: PERRL. absent: Miosis, Mydriatic - ENT Exam ENT Exam: Mucous Membranes Moist, Normal Oropharynx - Neck Exam Neck Exam: Full ROM, Normal Inspection - Respiratory Exam Respiratory Exam: Clear to Ausculation Bilateral. absent: Rales, Rhonchi, Wheezes - Cardiovascular Exam Cardiovascular Exam: RRR, +S1, +S2. absent: Gallop, Rubs - GI/Abdominal Exam GI & Abdominal Exam: Soft, Normal Bowel Sounds. absent: Distended, Firm, Guarding, Rigid, Tenderness, Organomegaly, Rebound Additional comments: RLQ KERI drain with serosanguinous drainage - Extremities Exam Extremities Exam: Normal Inspection. absent: Pedal Edema - Neurological Exam Neurological Exam: Alert, Awake - Psychiatric Exam Psychiatric exam: Normal Affect, Normal Mood - Skin Skin Exam: Dry, Intact, Normal Color, Warm Assessment and Plan - Assessment and Plan (Free Text) Assessment: 77 year old male with PMH of stage IV mantle cell lymphoma (quiescence), lung ca ncer s/p wedge resection, perforated sigmoid diverticulitis s/p Milli procedure 06/2017, CAD s/p stent placement, Diabetes, HTN, and COPD presenting with abdominal pain. Active treatment of diarrhea, POD3 (01/07) catheterization with revascularization of RCA s/p 2 drug-eluting stents, and POD9 (01/01) colostomy reversal with EGD/colonoscopy 12/31 showing normal EGD and 8mm cecal and 5mm rectal tubular adenomas, descending/sigmoid diverticulosis. Plan: -stool frequency improving -Cdiff negative -on Flagyl 500mg TID -monitor H/H -will follow clinical course <Lakisha Casiano V - Last Filed: 01/11/18 00:02> Objective - Vital Signs/Intake and Output Vital Signs (last 24 hours): Temp Pulse Resp BP Pulse Ox 98.9 F 76 18 101/59 L 97 01/10/18 16:00 01/10/18 17:22 01/10/18 16:00 01/10/18 17:22 01/10/18 16:00 Intake and Output: 01/10/18 01/11/18 18:59 06:59 Intake Total 360 Output Total 100 100 Balance -100 260 - Medications Medications: Current Medications Aspirin (Ecotrin) 81 mg PO 0800 ALEX; Protocol Last Admin: 01/10/18 08:57 Dose: 81 mg Atorvastatin Calcium (Lipitor) 20 mg PO QPM ALEX; Protocol Last Admin: 01/10/18 17:22 Dose: 20 mg Clopidogrel Bisulfate (Plavix) 75 mg PO DAILY ALEX; Protocol Last Admin: 01/10/18 09:01 Dose: 75 mg Ezetimibe (Zetia) 10 mg PO DAILY ALEX; Protocol Last Admin: 01/10/18 09:02 Dose: 10 mg Furosemide (Lasix) 20 mg PO DAILY ALEX; Protocol Last Admin: 01/10/18 09:00 Dose: 20 mg Insulin Human Regular (Humulin R Low) 0 units SC ACHS ALEX; Protocol Last Admin: 01/10/18 22:14 Dose: Not Given Levalbuterol HCl (Xopenex) 0.63 mg IH TIDRESP ALEX; Protocol Last Admin: 01/10/18 20:25 Dose: 0.63 mg Metoprolol Tartrate (Lopressor) 12.5 mg PO QPM ALEX; Protocol Last Admin: 01/10/18 17:22 Dose: Not Given Metoprolol Tartrate (Lopressor) 25 mg PO 0800 ALEX; Protocol Last Admin: 01/10/18 09:01 Dose: Not Given Metronidazole (Flagyl) 500 mg PO Q8 ALEX; Protocol Last Admin: 01/10/18 21:13 Dose: 500 mg Montelukast Sodium (Singulair) 10 mg PO QPM ALEX; Protocol Last Admin: 01/10/18 17:25 Dose: 10 mg Non-Formulary Medication (Silodosin [Rapaflo]) 8 mg PO QPM ALEX Last Admin: 01/10/18 17:24 Dose: 8 mg Non-Formulary Medication (Ranolazine [Ranexa]) 500 mg PO BID ALEX Last Admin: 01/10/18 17:24 Dose: 500 mg Ondansetron HCl (Zofran Odt) 4 mg PO Q8H PRN; Protocol PRN Reason: Nausea/Vomiting Oxybutynin Chloride (Ditropan Tab) 5 mg PO HS ALEX; Protocol Last Admin: 01/10/18 21:13 Dose: 5 mg Oxycodone/Acetaminophen (Percocet 5/325 Mg Tab) 1 tab PO Q6H PRN; Protocol PRN Reason: Pain, moderate (4-7) Stop: 01/12/18 18:33 Pantoprazole Sodium (Protonix Ec Tab) 40 mg PO 0600 ALEX; Protocol Last Admin: 01/10/18 06:39 Dose: 40 mg - Labs Labs: 01/10/18 06:40 01/10/18 06:40 Attending/Attestation - Attestation I have personally seen and examined this patient.: Yes I have fully participated in the care of the patient.: Yes I have reviewed all pertinent clinical information, including history, physical exam and plan: Yes Notes (Text): This is an addendum to GI progress report dictated by the GI Fellow.The patient was seen and examined earlier. Medical records, lab studies, imagings were reviewed. Last 24 hours events reviewed. Agreed with the above treatment plan as outlined in GI Fellow 's notes with the addition of the following 01/11/18 00:02
[2018-01-10] MEDS: SILODOSIN 8 MG PO SCH (17:24)
--- NOTE | 2018-01-10 23:46 | CON ---
DATE: 01/10/2018 REASON FOR CONSULTATION: Hypokalemia. HISTORY OF PRESENT ILLNESS: A 77-year-old male, known to me from recent evaluation on the medical side. The patient was admitted to the ICU after a laparotomy. The patient had initially presented with abdominal pain, nausea and vomiting. The patient underwent reversal of colostomy and exploratory laparotomy. Postoperatively, he developed respiratory acidosis and respiratory failure, had to be intubated, required fluid resuscitation. He developed mild acute kidney injury that resolved. Currently, he is seen in the transitional care unit. He complains that he is not feeling very well. He complains of generalized body aches. He denies any chest pain. He denies any palpitations. He denies any constipation. PAST MEDICAL AND SURGICAL HISTORY: Stage IV mantle cell lymphoma, history of lung cancer, wedge resection, NIDDM, hypertension, CAD, PTCA and stent x4, recent stenting on 01/08/2018, anemia, recent laparotomy, reversal of colostomy, history of ruptured diverticulum. FAMILY HISTORY: Noncontributory. SOCIAL HISTORY: No smoking, no alcohol use, no IV drug abuse. ALLERGIES: AZITHROMYCIN, ERYTHROMYCIN, PENICILLIN, KEFLEX. CURRENT MEDICATIONS: Ditropan, Ecotrin, Flagyl, Lasix 20 p.o. daily, Lipitor, Lopressor 12.5 b.i.d., Plavix 75, Protonix, Ranexa, Rapaflo, Singulair, Xopenex, Zetia, Zofran. Potassium 40 mEq p.o. given this morning. REVIEW OF SYSTEMS: All systems are reviewed, pertinent positives as mentioned in the history of presenting illness, rest unremarkable. PHYSICAL EXAMINATION GENERAL: Elderly male, sitting in bed. VITAL SIGNS: Blood pressure 109/58, heart rate 83, respiratory rate 18, temperature 98. HEENT: Normocephalic, atraumatic, positive pallor. NECK: Supple. No JVD. LUNGS: Bilateral equal air entry, bilateral equal expansion. No rales. CARDIAC: S1 and S2, regular rate and rhythm. No murmur, no rub. ABDOMEN: Soft, nondistended, nontender, bowel sounds present. EXTREMITIES: No lower extremity edema. LABORATORY DATA: WBC 4.8, hemoglobin 9.6, hematocrit 28.8, platelets 152. Sodium 136, potassium 3.5, chloride 104, CO2 of 26, BUN 7, creatinine 0.9, glucose 125, calcium 7.8, phosphorus not checked, AST 31, ALT 52, albumin 2.4. ASSESSMENT: 1. Recent laparotomy, reversal of colostomy. 2. Severe anemia, multifactorial. 3. Hypokalemia. 4. Stage IV mantle cell lymphoma. 5. Coronary artery disease, history of recent stent on 01/08/2018. 6. [id number]-ysjziucho diabetes mellitus. 7. Deconditioning. PLAN: 1. Replace potassium. 2. Liberalize potassium in diet. 3. Physical therapy. 4. Continue Plavix, beta-harris, lipid-lowering therapy. 5. Continue low-dose Lasix. 6. Monitor labs two to three times per week. Natalie Raman MD
--- NOTE | 2018-01-11 00:54 | CON ---
DATE: 01/10/2018 REFERRING PHYSICIAN: Dr. Ted Santoyo REASON FOR CONSULTATION: Chronic lung disease, history of lung cancer status post respiratory failure. HISTORY OF PRESENT ILLNESS: This is a 77-year-old gentleman well known to me from previous admission, history of mantle cell lymphoma, lung cancer status post wedge resection in the remote past, coronary artery disease, history of coronary stent, chronic lung disease, hypertension, diabetes, history of visceral perforation requiring Milli procedure, recently underwent laparotomy for reversal of procedure postop complicated with respiratory arrest, presently liberated from the ventilator. Overall, doing well and there is fair ADL dysfunction, admitted to [facility] for continued care, presently lying in the bed, feels better. Did have a bowel movement, still having loose stools, short of breath with exertion. No chest pain. Mild abdominal discomfort. PAST MEDICAL HISTORY: As per history of present illness. ALLERGIES: ZITHROMAX AND KEFLEX, ALSO ALLERGIC TO PENICILLIN. SOCIAL HISTORY: He is retired. Denies any smoking or alcohol use. FAMILY HISTORY: No significant cardiopulmonary disease reported. MEDICATIONS: He is on Ditropan 5 mg at bedtime, Ecotrin 81 mg daily, Flagyl 500 mg every 8 hourly, insulin coverage, Lasix 20 mg daily, Lipitor 20 mg daily, metoprolol tartrate 12.5 mg in the p.m. and 25 mg in the morning, Percocet 5/325 one tablet every 6 hours p.r.n., Plavix 75 mg daily, Protonix 40 mg daily, Ranexa 500 mg twice a day, Singulair 10 mg daily, Xopenex inhale every 8 hours, Zetia 10 mg daily, Zofran p.r.n. basis. REVIEW OF SYSTEMS: No headache, no rhinitis. No cough. Gets short of breath with exertion. No chest pain. Mild incision site discomfort. Still has watery stool. No leg pain or leg swelling. PHYSICAL EXAMINATION: GENERAL: No acute distress. VITAL SIGNS: Temperature is 98, heart rate 76, respiratory rate is 18, blood pressure 101/59, pulse of 97% room air. HEENT: Small oral cavity. Crowded airway. NECK: Supple. No JVD. LUNGS: Have decreased breath sounds at the bases with scattered rhonchi, prolonged expiratory phase. HEART: S1 and S2. ABDOMEN: Soft, nontender. Mild tenderness, incision site looks okay. EXTREMITIES: There is no edema. NEUROLOGIC: Awake, alert and follows simple commands. LABORATORY DATA: Shows hemoglobin 9.6, hematocrit 28.8, WBC 4.8, platelet count is 152,000. Sodium 136, potassium 3.5, chloride 104, bicarbonate 26, BUN 7, creatinine 0.9, glucose 125, calcium 7.8, AST 31, ALT 52, alk phos is 108, albumin is 2.4. IMPRESSION AND PLAN: Recently, underwent laparotomy for reversal of colostomy, had a respiratory failure, non-Q-wave myocardial infarction, found to have coronary artery disease status post stent placement, history of lung cancer requiring wedge resection, mantle cell lymphoma, diabetes, hypertension. Pulmonary point of view, doing well. Continue bronchodilator. Keep head at 45 degrees. Gastric prophylaxis, DVT prophylaxis. Sleep apnea precaution. Does not use continuous positive airway pressure. Careful with sedation. Fall precaution. Thank you and we will follow with you. Thanh Duffy MD
[2018-01-11] MEDS: Pantoprazole 40 mg EC Tab PO SCH (05:21)
[2018-01-11] MEDS: Levalbuterol 0.63 MG/3 ML Inhal Soln UD IH SCH ×3 (07:13→20:15)
--- NOTE | 2018-01-11 08:34 | CP.PCM.PN ---
Subjective - Date & Time of Evaluation Date of Evaluation: 01/11/18 Time of Evaluation: 08:31 - Subjective Subjective: Gastroenterology Fellow/PGY6 Progress Note Patient resting comfortably. Tolerating diet. Improving stool frequency. 12- point review of systems negative except for as a above. Objective - Vital Signs/Intake and Output Vital Signs (last 24 hours): Temp Pulse Resp BP Pulse Ox 98.9 F 76 18 101/59 L 97 01/10/18 16:00 01/10/18 17:22 01/10/18 16:00 01/10/18 17:22 01/10/18 16:00 Intake and Output: 01/11/18 01/11/18 06:59 18:59 Intake Total 360 Output Total 160 Balance 200 - Medications Medications: Current Medications Aspirin (Ecotrin) 81 mg PO 0800 [facility]; Protocol Last Admin: 01/10/18 08:57 Dose: 81 mg Atorvastatin Calcium (Lipitor) 20 mg PO QPM [facility]; Protocol Last Admin: 01/10/18 17:22 Dose: 20 mg Clopidogrel Bisulfate (Plavix) 75 mg PO DAILY [facility]; Protocol Last Admin: 01/10/18 09:01 Dose: 75 mg Ezetimibe (Zetia) 10 mg PO DAILY [facility]; Protocol Last Admin: 01/10/18 09:02 Dose: 10 mg Furosemide (Lasix) 20 mg PO DAILY [facility]; Protocol Last Admin: 01/10/18 09:00 Dose: 20 mg Insulin Human Regular (Humulin R Low) 0 units SC ACHS [facility]; Protocol Last Admin: 01/10/18 22:14 Dose: Not Given Levalbuterol HCl (Xopenex) 0.63 mg IH TIDRESP [facility]; Protocol Last Admin: 01/11/18 07:13 Dose: 0.63 mg Metoprolol Tartrate (Lopressor) 12.5 mg PO QPM [facility]; Protocol Last Admin: 01/10/18 17:22 Dose: Not Given Metoprolol Tartrate (Lopressor) 25 mg PO 0800 [facility]; Protocol Last Admin: 01/10/18 09:01 Dose: Not Given Metronidazole (Flagyl) 500 mg PO Q8 [facility]; Protocol Last Admin: 01/11/18 05:21 Dose: 500 mg Montelukast Sodium (Singulair) 10 mg PO QPM [facility]; Protocol Last Admin: 01/10/18 17:25 Dose: 10 mg Non-Formulary Medication (Silodosin [Rapaflo]) 8 mg PO QPM [facility] Last Admin: 01/10/18 17:24 Dose: 8 mg Non-Formulary Medication (Ranolazine [Ranexa]) 500 mg PO BID [facility] Last Admin: 01/10/18 17:24 Dose: 500 mg Ondansetron HCl (Zofran Odt) 4 mg PO Q8H PRN; Protocol PRN Reason: Nausea/Vomiting Oxybutynin Chloride (Ditropan Tab) 5 mg PO HS [facility]; Protocol Last Admin: 01/10/18 21:13 Dose: 5 mg Oxycodone/Acetaminophen (Percocet 5/325 Mg Tab) 1 tab PO Q6H PRN; Protocol PRN Reason: Pain, moderate (4-7) Stop: 01/12/18 18:33 Pantoprazole Sodium (Protonix Ec Tab) 40 mg PO 0600 [facility]; Protocol Last Admin: 01/11/18 05:21 Dose: 40 mg - Labs Labs: 01/10/18 06:40 01/10/18 06:40 - Constitutional Appears: Non-toxic, No Acute Distress - Head Exam Head Exam: ATRAUMATIC, NORMOCEPHALIC - Eye Exam Eye Exam: EOMI, PERRL. absent: Scleral icterus Pupil Exam: PERRL. absent: Miosis, Mydriatic - ENT Exam ENT Exam: Mucous Membranes Moist, Normal Oropharynx - Neck Exam Neck Exam: Full ROM, Normal Inspection - Respiratory Exam Respiratory Exam: Clear to Ausculation Bilateral. absent: Rales, Rhonchi, Wheezes - Cardiovascular Exam Cardiovascular Exam: RRR, +S1, +S2. absent: Gallop, Rubs - GI/Abdominal Exam GI & Abdominal Exam: Soft, Tenderness, Normal Bowel Sounds. absent: Distended, Firm, Guarding, Rigid, Organomegaly, Rebound Additional comments: minimal discomfort at KERI site- RLQ with serosanguinous drainage - Extremities Exam Extremities Exam: Normal Inspection. absent: Pedal Edema - Neurological Exam Neurological Exam: Alert, Awake - Psychiatric Exam Psychiatric exam: Normal Affect, Normal Mood - Skin Skin Exam: Dry, Intact, Normal Color, Warm Assessment and Plan - Assessment and Plan (Free Text) Assessment: 77 year old male with PMH of stage IV mantle cell lymphoma (quiescence), lung cancer s/p wedge resection, perforated sigmoid diverticulitis s/p Milli procedure 06/2017, CAD s/p stent placement, Diabetes, HTN, and COPD presenting with abdominal pain. Active treatment of diarrhea, POD4 (01/07) catheterization with revascularization of RCA s/p 2 drug-eluting stents, and POD10 (01/01) colostomy reversal with EGD/colonoscopy 12/31 showing normal EGD and 8mm cecal and 5mm rectal tubular adenomas, descending/sigmoid diverticulosis. Plan: -Cdiff negative -on Flagyl 500mg TID -tolerating diet -H/H stable -will follow clinical course
[2018-01-11] MEDS: Insulin Reg-LOW-Coverage SC SCH ×4 (09:13→23:39)
[2018-01-11 10:22] LABS: BASO # 0.01 K/mm3 (0.0-2.0); BASO % 0.2 % (0.0-3.0); EOS # 0.3 (0.0-0.7); EOS % 4.5 % (1.5-5.0); GRAN # 3.95 (1.4-6.5); GRAN % 68.6 % (50.0-68.0); HEMOGLOBIN 9.9 g/dL (14.0-18.0); LYMPH # 1.1 (1.2-3.4); LYMPH % 19.7 % (22.0-35.0); MEAN CELL VOLUME 87.5 fl (80.0-105.0); MEAN CORPUSCULAR HEMOGLOBIN 28.9 pg (25.0-35.0); MEAN PLATELET VOLUME 10.2 fl (7.0-11.0); MONO # 0.4 (0.1-0.6); RBC 3.43 10^6/uL (3.5-6.1); RED CELL DISTRIBUTION WIDTH 15.7 % (11.5-14.5); WHITE BLOOD COUNT 5.8 10^3/uL (4.5-11.0)
[2018-01-11 10:30] LABS: ALBUMIN 2.4 g/dL (3.0-4.8); ALT/SGPT 48 U/L (7-56); AST/SGOT 32 U/L (17-59); BLOOD UREA NITROGEN 6 mg/dL (7-21); CALCIUM 7.9 mg/dL (8.4-10.5); GFR NON-AFRICAN AMERICAN > 60
[2018-01-11] MEDS: Non Formulary Medication (Ranolazine [Ranexa] 500 MG) PO SCH ×2 (11:41→17:53)
--- NOTE | 2018-01-11 13:14 | CP.PCM.PN ---
Subjective - Date & Time of Evaluation Date of Evaluation: 01/11/18 Time of Evaluation: 09:00 - Subjective Subjective: General Surgery Progress Note for Dr. Hoyt covering for Dr. Pabon 77M seen and evaluated at bedside this morning. Patient resting comfortably in bed. No acute events overnight. States he feels weak and has been working with p hysically therapy. Tolerating diet, ambulating. Passing flatus and having BM. No other complaints. Deines f/c, n/v/d, SOB, CP, or urinary symptoms. Objective - Vital Signs/Intake and Output Vital Signs (last 24 hours): Temp Pulse Resp BP Pulse Ox 98.9 F 76 18 93/56 L 97 01/10/18 16:00 01/10/18 17:22 01/10/18 16:00 01/11/18 11:41 01/10/18 16:00 Intake and Output: 01/11/18 01/11/18 06:59 18:59 Intake Total 360 Output Total 160 Balance 200 - Medications Medications: Current Medications Aspirin (Ecotrin) 81 mg PO 0800 [facility]; Protocol Last Admin: 01/11/18 11:40 Dose: 81 mg Atorvastatin Calcium (Lipitor) 20 mg PO QPM [facility]; Protocol Last Admin: 01/10/18 17:22 Dose: 20 mg Clopidogrel Bisulfate (Plavix) 75 mg PO DAILY [facility]; Protocol Last Admin: 01/11/18 11:41 Dose: 75 mg Ezetimibe (Zetia) 10 mg PO DAILY [facility]; Protocol Last Admin: 01/11/18 11:42 Dose: 10 mg Furosemide (Lasix) 20 mg PO DAILY [facility]; Protocol Last Admin: 01/11/18 11:41 Dose: Not Given Insulin Human Regular (Humulin R Low) 0 units SC ACHS [facility]; Protocol Last Admin: 01/11/18 11:36 Dose: Not Given Levalbuterol HCl (Xopenex) 0.63 mg IH TIDRESP [facility]; Protocol Last Admin: 01/11/18 07:13 Dose: 0.63 mg Metoprolol Tartrate (Lopressor) 12.5 mg PO QPM [facility]; Protocol Last Admin: 01/10/18 17:22 Dose: Not Given Metoprolol Tartrate (Lopressor) 25 mg PO 0800 [facility]; Protocol Last Admin: 01/11/18 11:41 Dose: Not Given Metronidazole (Flagyl) 500 mg PO Q8 [facility]; Protocol Last Admin: 01/11/18 05:21 Dose: 500 mg Montelukast Sodium (Singulair) 10 mg PO QPM [facility]; Protocol Last Admin: 01/10/18 17:25 Dose: 10 mg Non-Formulary Medication (Silodosin [Rapaflo]) 8 mg PO QPM [facility] Last Admin: 01/10/18 17:24 Dose: 8 mg Non-Formulary Medication (Ranolazine [Ranexa]) 500 mg PO BID [facility] Last Admin: 01/11/18 11:41 Dose: 500 mg Ondansetron HCl (Zofran Odt) 4 mg PO Q8H PRN; Protocol PRN Reason: Nausea/Vomiting Oxybutynin Chloride (Ditropan Tab) 5 mg PO HS [facility]; Protocol Last Admin: 01/10/18 21:13 Dose: 5 mg Oxycodone/Acetaminophen (Percocet 5/325 Mg Tab) 1 tab PO Q6H PRN; Protocol PRN Reason: Pain, moderate (4-7) Stop: 01/12/18 18:33 Pantoprazole Sodium (Protonix Ec Tab) 40 mg PO 0600 [facility]; Protocol Last Admin: 01/11/18 05:21 Dose: 40 mg - Labs Labs: 01/11/18 10:00 01/11/18 10:00 - Constitutional Appears: Well, Non-toxic, No Acute Distress - Head Exam Head Exam: ATRAUMATIC, NORMAL INSPECTION, NORMOCEPHALIC - Eye Exam Eye Exam: EOMI - ENT Exam ENT Exam: Mucous Membranes Moist - Respiratory Exam Respiratory Exam: NORMAL BREATHING PATTERN. absent: Accessory Muscle Use - Cardiovascular Exam Cardiovascular Exam: REGULAR RHYTHM - GI/Abdominal Exam GI & Abdominal Exam: Distended, Soft. absent: Tenderness - Neurological Exam Neurological Exam: Alert, Awake - Psychiatric Exam Psychiatric exam: Normal Affect, Normal Mood - Skin Skin Exam: Dry, Intact, Normal Color, Warm Assessment and Plan - Assessment and Plan (Free Text) Assessment: 77M s/p colostomy reversal POD10 Plan: [place] and Jak drain removed today Continue regular diet Continue working with PT No further surgical intervention at this time Further recommendations per Dr. Hoyt/Cm Nielson PGY1
--- NOTE | 2018-01-11 14:26 | CP.PCM.PN ---
Subjective - Date & Time of Evaluation Date of Evaluation: 01/11/18 Time of Evaluation: 10:20 - Subjective Subjective: No fevers, not in distress. Objective - Vital Signs/Intake and Output Vital Signs (last 24 hours): Temp Pulse Resp BP Pulse Ox 98 F 83 18 109/58 L 01/09/18 19:45 01/09/18 20:55 01/09/18 19:45 01/10/18 09:00 Intake and Output: 01/10/18 01/10/18 06:59 18:59 Output Total 100 100 Balance -100 -100 - Medications Medications: Current Medications Aspirin (Ecotrin) 81 mg PO 0800 [facility]; Protocol Last Admin: 01/10/18 08:57 Dose: 81 mg Atorvastatin Calcium (Lipitor) 20 mg PO QPM [facility]; Protocol Clopidogrel Bisulfate (Plavix) 75 mg PO DAILY [facility]; Protocol Last Admin: 01/10/18 09:01 Dose: 75 mg Ezetimibe (Zetia) 10 mg PO DAILY [facility]; Protocol Last Admin: 01/10/18 09:02 Dose: 10 mg Furosemide (Lasix) 20 mg PO DAILY [facility]; Protocol Last Admin: 01/10/18 09:00 Dose: 20 mg Insulin Human Regular (Humulin R Low) 0 units SC ACHS [facility]; Protocol Last Admin: 01/10/18 06:38 Dose: Not Given Levalbuterol HCl (Xopenex) 0.63 mg IH TIDRESP [facility]; Protocol Last Admin: 01/10/18 07:18 Dose: 0.63 mg Metoprolol Tartrate (Lopressor) 12.5 mg PO QPM [facility]; Protocol Metoprolol Tartrate (Lopressor) 25 mg PO 0800 [facility]; Protocol Last Admin: 01/10/18 09:01 Dose: Not Given Metronidazole (Flagyl) 500 mg PO Q8 [facility]; Protocol Last Admin: 01/10/18 06:39 Dose: 500 mg Montelukast Sodium (Singulair) 10 mg PO QPM [facility]; Protocol Non-Formulary Medication (Silodosin [Rapaflo]) 8 mg PO QPM [facility] Last Admin: 01/09/18 22:20 Dose: 8 mg Non-Formulary Medication (Ranolazine [Ranexa]) 500 mg PO BID [facility] Last Admin: 01/10/18 09:02 Dose: 500 mg Ondansetron HCl (Zofran Odt) 4 mg PO Q8H PRN; Protocol PRN Reason: Nausea/Vomiting Oxybutynin Chloride (Ditropan Tab) 5 mg PO HS [facility]; Protocol Last Admin: 01/09/18 22:15 Dose: 5 mg Oxycodone/Acetaminophen (Percocet 5/325 Mg Tab) 1 tab PO Q6H PRN; Protocol PRN Reason: Pain, moderate (4-7) Stop: 01/12/18 18:33 Pantoprazole Sodium (Protonix Ec Tab) 40 mg PO 0600 [facility]; Protocol Last Admin: 01/10/18 06:39 Dose: 40 mg - Labs Labs: 01/10/18 06:40 01/10/18 06:40 - Constitutional Appears: Chronically Ill - Head Exam Head Exam: NORMAL INSPECTION - Respiratory Exam Respiratory Exam: Decreased Breath Sounds - Cardiovascular Exam Cardiovascular Exam: +S1, +S2 - GI/Abdominal Exam GI & Abdominal Exam: Soft. absent: Tenderness Assessment and Plan - Assessment and Plan (Free Text) Plan: Assessment S/P SIRS with VDRF due to colostomy reversal loose bowel movement, C. diff test is negaitve S/P severe sepsis S/P acute renal failure S/P ventilator-dependent respiratory failure due to acute perforated sigmoid colon with associated diverticulitis S/P exploratory laparotomy, sigmoidectomy and colostomy history of sepsis due to acute bronchitis, with systemic viral illness history of UTI with E. 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 Casiano on Flagyl (day 4); stool for C. diff. is negative will continue to monitor clinically
[2018-01-11] MEDS ORDERED: Magnesium Sulfate 2 GM in Sodium Chloride 0.9% 100 ML IVPB ONE (15:43)
--- NOTE | 2018-01-11 15:47 | CP.PCM.PN ---
<Mariusz Méndez - Last Filed: 01/11/18 15:44> Subjective - Date & Time of Evaluation Date of Evaluation: 01/11/18 Time of Evaluation: 15:44 - Subjective Subjective: Hematology/Oncology Progress Note (Dr. Myers's Service) Patient seen and assessed at bedside. No acute events noted overnight. Patient reports that his loose stools have resolved and is without complaints at this time. Patient denies any complaints at this time and 12 point ROS was unremarkable outside of what was mentioned above. Objective - Vital Signs/Intake and Output Vital Signs (last 24 hours): Temp Pulse Resp BP Pulse Ox 98.9 F 76 18 93/56 L 97 01/10/18 16:00 01/10/18 17:22 01/10/18 16:00 01/11/18 11:41 01/10/18 16:00 Intake and Output: 01/11/18 01/11/18 06:59 18:59 Intake Total 360 Output Total 160 Balance 200 - Medications Medications: Current Medications Aspirin (Ecotrin) 81 mg PO 0800 [facility]; Protocol Last Admin: 01/11/18 11:40 Dose: 81 mg Atorvastatin Calcium (Lipitor) 20 mg PO QPM [facility]; Protocol Last Admin: 01/10/18 17:22 Dose: 20 mg Clopidogrel Bisulfate (Plavix) 75 mg PO DAILY [facility]; Protocol Last Admin: 01/11/18 11:41 Dose: 75 mg Ezetimibe (Zetia) 10 mg PO DAILY [facility]; Protocol Last Admin: 01/11/18 11:42 Dose: 10 mg Furosemide (Lasix) 20 mg PO DAILY [facility]; Protocol Last Admin: 01/11/18 11:41 Dose: Not Given Magnesium Sulfate 2 gm/ Sodium (Chloride) 104 mls @ 102 mls/hr IVPB ONCE ONE Stop: 01/11/18 16:44 Insulin Human Regular (Humulin R Low) 0 units SC ACHS [facility]; Protocol Last Admin: 01/11/18 11:36 Dose: Not Given Levalbuterol HCl (Xopenex) 0.63 mg IH TIDRESP [facility]; Protocol Last Admin: 01/11/18 14:54 Dose: 0.63 mg Metoprolol Tartrate (Lopressor) 12.5 mg PO QPM [facility]; Protocol Last Admin: 01/10/18 17:22 Dose: Not Given Metoprolol Tartrate (Lopressor) 25 mg PO 0800 [facility]; Protocol Last Admin: 01/11/18 11:41 Dose: Not Given Metronidazole (Flagyl) 500 mg PO Q8 [facility]; Protocol Last Admin: 01/11/18 15:25 Dose: 500 mg Montelukast Sodium (Singulair) 10 mg PO QPM [facility]; Protocol Last Admin: 01/10/18 17:25 Dose: 10 mg Non-Formulary Medication (Silodosin [Rapaflo]) 8 mg PO QPM [facility] Last Admin: 01/10/18 17:24 Dose: 8 mg Non-Formulary Medication (Ranolazine [Ranexa]) 500 mg PO BID [facility] Last Admin: 01/11/18 11:41 Dose: 500 mg Ondansetron HCl (Zofran Odt) 4 mg PO Q8H PRN; Protocol PRN Reason: Nausea/Vomiting Oxybutynin Chloride (Ditropan Tab) 5 mg PO HS [facility]; Protocol Last Admin: 01/10/18 21:13 Dose: 5 mg Oxycodone/Acetaminophen (Percocet 5/325 Mg Tab) 1 tab PO Q6H PRN; Protocol PRN Reason: Pain, moderate (4-7) Stop: 01/12/18 18:33 Pantoprazole Sodium (Protonix Ec Tab) 40 mg PO 0600 [facility]; Protocol Last Admin: 01/11/18 05:21 Dose: 40 mg - Labs Labs: 01/11/18 10:00 01/11/18 10:00 - Additional Findings Additional findings: - Constitutional Appears: Non-toxic, No Acute Distress - Head Exam Head Exam: ATRAUMATIC, NORMOCEPHALIC - Eye Exam Eye Exam: EOMI, PERRL. absent: Scleral icterus Pupil Exam: PERRL. absent: Miosis, Mydriatic - ENT Exam ENT Exam: Mucous Membranes Moist, Normal Oropharynx - Neck Exam Neck Exam: Full ROM, Normal Inspection - Respiratory Exam Respiratory Exam: Clear to Ausculation Bilateral. absent: Rales, Rhonchi, Wheezes - Cardiovascular Exam Cardiovascular Exam: RRR, +S1, +S2. absent: Gallop, Rubs - GI/Abdominal Exam GI & Abdominal Exam: Soft, Normal Bowel Sounds. absent: Distended, Firm, Guarding, Rigid, Tenderness, Organomegaly, Rebound Additional comments: Abdominal wound dressings clean, dry and intact - Extremities Exam Extremities Exam: Normal Inspection. absent: Pedal Edema - Neurological Exam Neurological Exam: Alert, Awake - Psychiatric Exam Psychiatric exam: Normal Affect, Normal Mood - Skin Skin Exam: Dry, Intact, Normal Color, Warm Assessment and Plan - Assessment and Plan (Free Text) Assessment: 77 year old male with a past medical history significant for stage IV mantle cell lymphoma (quiescence), lung cancer s/p wedge resection, hypoglobulinemia, CAD s/p stent placement, DM2, HTN, COPD, and perforated sigmoid diverticulitis s/p Milli procedure who presented with abdominal pain and is now transferred to the TCU for further physical rehabilitation. Plan: 1. S/P Colostomy Reversal -EGD/CSPY report noted -Continue Percocet PRN for pain control -Strict I/O's, OOB to chair and IS -GI and Surgery consulted, all recommendations appreciated 2. Diarrhea -Resolved -History of C. Diff noted -Continue Flagyl PO (Day 4) -Low fiber diet -C. Diff serology negative -ID and GI consulted, all recommendations appreciated 3. History of CAD -S/P Cardiac cath with two BRAULIO placed -Continue Plavix, ASA, Lipitor, Zetia, and Lopressor -Cardiology consulted, all recommendations appreciated 4. Normocytic Anemia -H/H stable -CT abdomen/pelvis without contrast showing no intra-abdominal and/or retroperitoneal hemorrhage -S/P two units of pRBC's -Continue to monitor with daily CBC's 5. History of COPD -Continue Duonebs -Continue Singulair 6. History of BPH -Continue Rapaflo and Oxybutynin 7. History of DM2 -SSI-Low and Accuchecks ACHS GI Prophylaxis: Protonix DVT Prophylaxis: SCD's Diet: Moderate Consistent Carbohydrate with Low Fiber Code Status: Full code Patient seen and case discussed with attending, Dr. Myers. Mariusz Méndez PGY2 <Alie Myers P - Last Filed: 01/13/18 14:19> Objective - Vital Signs/Intake and Output Vital Signs (last 24 hours): Temp Pulse Resp BP Pulse Ox 98.3 F 93 H 20 99/63 L 99 01/13/18 10:00 01/13/18 10:00 01/13/18 10:00 01/13/18 10:00 01/13/18 10:00 - Medications Medications: Current Medications Acetaminophen (Tylenol 325mg Tab) 650 mg PO Q6H PRN PRN Reason: Pain, Mild (1-3) Last Admin: 01/11/18 19:06 Dose: 650 mg Aspirin (Ecotrin) 81 mg PO 0800 [facility]; Protocol Last Admin: 01/13/18 08:43 Dose: 81 mg Atorvastatin Calcium (Lipitor) 20 mg PO QPM [facility]; Protocol Last Admin: 01/12/18 17:52 Dose: 20 mg Clopidogrel Bisulfate (Plavix) 75 mg PO DAILY [facility]; Protocol Last Admin: 01/13/18 09:41 Dose: 75 mg Ezetimibe (Zetia) 10 mg PO DAILY [facility]; Protocol Last Admin: 01/13/18 09:42 Dose: 10 mg Furosemide (Lasix) 20 mg PO DAILY [facility]; Protocol Last Admin: 01/13/18 09:40 Dose: 20 mg Insulin Human Regular (Humulin R Low) 0 units SC ACHS [facility]; Protocol Last Admin: 01/13/18 12:20 Dose: 2 unit Levalbuterol HCl (Xopenex) 0.63 mg IH TIDRESP [facility]; Protocol Last Admin: 01/13/18 09:15 Dose: 0.63 mg Metoprolol Tartrate (Lopressor) 12.5 mg PO QPM [facility]; Protocol Last Admin: 01/12/18 17:54 Dose: 12.5 mg Metoprolol Tartrate (Lopressor) 25 mg PO 0800 [facility]; Protocol Last Admin: 01/13/18 08:43 Dose: 25 mg Metronidazole (Flagyl) 500 mg PO Q8 [facility]; Protocol Last Admin: 01/13/18 05:56 Dose: 500 mg Montelukast Sodium (Singulair) 10 mg PO QPM [facility]; Protocol Last Admin: 01/12/18 17:56 Dose: 10 mg Non-Formulary Medication (Silodosin [Rapaflo]) 8 mg PO QPM [facility] Last Admin: 01/12/18 17:55 Dose: 8 mg Non-Formulary Medication (Ranolazine [Ranexa]) 500 mg PO BID [facility] Last Admin: 01/13/18 09:41 Dose: 500 mg Ondansetron HCl (Zofran Odt) 4 mg PO Q8H PRN; Protocol PRN Reason: Nausea/Vomiting Oxybutynin Chloride (Ditropan Tab) 5 mg PO HS [facility]; Protocol Last Admin: 01/12/18 21:39 Dose: 5 mg Pantoprazole Sodium (Protonix Ec Tab) 40 mg PO 0600 [facility]; Protocol Last Admin: 01/13/18 05:56 Dose: 40 mg - Labs Labs: 01/12/18 11:00 01/12/18 11:00 Attending/Attestation - Attestation I have personally seen and examined this patient.: Yes I have fully participated in the care of the patient.: Yes I have reviewed all pertinent clinical information, including history, physical exam and plan: Yes
[2018-01-11] MEDS ORDERED: Magnesium Sulfate 2 gm/50 ml 2 GM/50 ML BAG IV ONE (16:00)
--- NOTE | 2018-01-11 16:05 | RAD ---
Date of service: 01/11/2018 HISTORY: cough COMPARISON: No prior. FINDINGS: LUNGS: No active pulmonary disease. PLEURA: No significant pleural effusion identified, no pneumothorax apparent. CARDIOVASCULAR: Aortic calcification Mild cardiomegaly no pulmonary vascular congestion. OSSEOUS STRUCTURES: No significant abnormalities. VISUALIZED UPPER ABDOMEN: Normal. OTHER FINDINGS: Right-sided Port-A-Cath IMPRESSION: No active disease.
--- NOTE | 2018-01-11 16:11 | PN ---
DATE: 01/11/2018 SUBJECTIVE: The patient is seen sitting in chair. He is awake, he is alert, he is comfortable. He reports he had a bad night last night because of pain. He also complains of difficulty in his bowels. He denies any chest pain. Denies any cough. PHYSICAL EXAMINATION: GENERAL: Elderly male sitting in chair. VITAL SIGNS: Blood pressure 93/56, heart rate 58, respiratory rate 18, temperature 98. HEENT: Normocephalic, atraumatic, positive pallor. NECK: Supple, no JVD. LUNGS: Bilateral equal entry, bilateral equal expansion, crackles left side. CARDIAC: S1 and S2, regular rate and rhythm, no murmur, no rub. ABDOMEN: Distended, soft, bowel sounds present. EXTREMITIES: No lower extremity edema. INTAKE AND OUTPUT: Not charted. LABORATORY DATA: Sodium 137, potassium 3.6, chloride 104, CO2 of 28, BUN 6, creatinine 1.0, glucose 123, calcium 7.9, phosphorus 4.0, magnesium 1.6, albumin 2.4, corrected calcium is 8.9. CURRENT MEDICATIONS: Ditropan, Ecotrin, Flagyl, insulin, Lasix 20 p.o. daily, Lipitor, Lopressor, Plavix, Protonix, Singulair, Xopenex, . ASSESSMENT AND PLAN: 1. Mild hypokalemia. 2. Anemia. 3. Coronary artery disease, recent stent. 4. Hypomagnesemia. 5. Recent laparotomy/reversal of colostomy. PLAN: 1. Push p.o. protein intake. 2. Push p.o. potassium intake. 3. Physical therapy. 4. Surgical followup. 5. Continue antibiotics as per ID recommendations. Natalie Raman MD
[2018-01-11] MEDS: SILODOSIN 8 MG PO SCH (17:53)
--- NOTE | 2018-01-11 22:23 | PN ---
DATE: 01/11/2018 PULMONARY PROGRESS NOTE REFERRING PHYSICIAN: Dr. Ted Santoyo SUBJECTIVE: He is out of bed to chair. Night was unremarkable. Feels better, tolerating p.o. diet well. No shortness of breath. No chest pain. Still has mild abdominal pain. No leg pain or leg swelling. OBJECTIVE: GENERAL: No acute distress. VITAL SIGNS: Temperature is 98, heart rate is 76, respiratory rate is 18, blood pressure 101/59, pulse of 97% room air. HEENT: Small oral cavity. Crowded airway. NECK: Supple. No JVD. LUNGS: Have a few scattered rhonchi and few basilar crackles. HEART: S1 and S2. ABDOMEN: Soft, nontender, some swelling. Mildly tender incision site. EXTREMITIES: There is no edema. NEUROLOGIC: Awake, alert and follows simple command. MEDICATIONS: He is on Ditropan 5 mg at bedtime., Ecotrin 81 mg daily, Flagyl 500 mg twice a day, every 8 hour insulin coverage, Lasix 20 mg daily, Lipitor 20 mg daily, metoprolol tartrate 12 5 mg at p.m. and 25 mg in the morning, Percocet 5/324 one tablet every 6 hours p.r.n., Plavix 75 g daily, Protonix 40 mg daily, Ranexa 500 mg twice a day, Rapaflo 8 mg was given 2 days ago, Singulair 10 mg daily, Tylenol p.r.n., Xopenex inhale every 8 hours, Zetia 10 mg daily, Zofran p.r.n. basis. LABORATORY DATA: Shows hemoglobin 9.9, hematocrit 30.0, WBC 5.8, platelet count is 178. Sodium 37, potassium 3.6, chloride 104, bicarbonate 28, BUN 6, creatinine 1.0, glucose 123, calcium 7.9, phosphorus 4.0, magnesium 1.6, AST 32, ALT 48, alk phos is 110. Albumin is 2.4. DIAGNOSTIC DATA: Chest x-ray done today shows no active disease, mild cardiomegaly noted. IMPRESSION AND PLAN: Status post laparotomy for reversal of colostomy, history of visceral perforation, non-Q-wave myocardial infarction, status post cath found to have a coronary stenosis requiring stent placement. Has a history of stents in the past, history of lung cancer requiring wedge resection, mantle cell lymphoma, diabetes, hypertension. Pulmonary point of view, doing okay. Continue bronchodilator, diuretics. Pulmonary toilet, pain management, physical therapy. Gastric prophylaxis, DVT prophylaxis. Sleep apnea precaution. Thank you and we will follow with you. Thanh Duffy MD
[2018-01-12] MEDS: Pantoprazole 40 mg EC Tab PO SCH (05:27)
[2018-01-12] MEDS: Insulin Reg-LOW-Coverage SC SCH ×4 (07:21→21:39)
[2018-01-12] MEDS: Levalbuterol 0.63 MG/3 ML Inhal Soln UD IH SCH ×4 (07:34→23:05)
--- NOTE | 2018-01-12 08:59 | CP.PCM.PN ---
<Thai Rose - Last Filed: 01/12/18 12:30> Subjective - Date & Time of Evaluation Date of Evaluation: 01/12/18 Time of Evaluation: 08:40 - Subjective Subjective: PGY6 GI Fellow Progress Note Patient seen and examined bedside this morning. The patient states that he feels weak. Noticed dizziness/lightheadedness upon standing from sitting when walking to bathroom. Poor appetite. Denies diarrhea. 12 system ROS performed and negative except where stated Objective - Vital Signs/Intake and Output Vital Signs (last 24 hours): Temp Pulse Resp BP Pulse Ox 98.9 F 76 18 98/61 L 97 01/10/18 16:00 01/10/18 17:22 01/10/18 16:00 01/11/18 17:52 01/10/18 16:00 - Medications Medications: Current Medications Acetaminophen (Tylenol 325mg Tab) 650 mg PO Q6H PRN PRN Reason: Pain, Mild (1-3) Last Admin: 01/11/18 19:06 Dose: 650 mg Aspirin (Ecotrin) 81 mg PO 0800 [facility]; Protocol Last Admin: 01/11/18 11:40 Dose: 81 mg Atorvastatin Calcium (Lipitor) 20 mg PO QPM [facility]; Protocol Last Admin: 01/11/18 17:52 Dose: 20 mg Clopidogrel Bisulfate (Plavix) 75 mg PO DAILY [facility]; Protocol Last Admin: 01/11/18 11:41 Dose: 75 mg Ezetimibe (Zetia) 10 mg PO DAILY [facility]; Protocol Last Admin: 01/11/18 11:42 Dose: 10 mg Furosemide (Lasix) 20 mg PO DAILY [facility]LEX; Protocol Last Admin: 01/11/18 11:41 Dose: Not Given Insulin Human Regular (Humulin R Low) 0 units SC ACHS [facility]; Protocol Last Admin: 01/12/18 07:21 Dose: Not Given Levalbuterol HCl (Xopenex) 0.63 mg IH TIDRESP [facility]; Protocol Last Admin: 01/12/18 07:34 Dose: 0.63 mg Metoprolol Tartrate (Lopressor) 12.5 mg PO QPM [facility]; Protocol Last Admin: 01/11/18 17:52 Dose: Not Given Metoprolol Tartrate (Lopressor) 25 mg PO 0800 [facility]LEX; Protocol Last Admin: 01/11/18 11:41 Dose: Not Given Metronidazole (Flagyl) 500 mg PO Q8 [facility]; Protocol Last Admin: 01/12/18 05:27 Dose: 500 mg Montelukast Sodium (Singulair) 10 mg PO QPM [facility]; Protocol Last Admin: 01/11/18 17:54 Dose: 10 mg Non-Formulary Medication (Silodosin [Rapaflo]) 8 mg PO QPM [facility] Last Admin: 01/11/18 17:53 Dose: 8 mg Non-Formulary Medication (Ranolazine [Ranexa]) 500 mg PO BID [facility] Last Admin: 01/11/18 17:53 Dose: 500 mg Ondansetron HCl (Zofran Odt) 4 mg PO Q8H PRN; Protocol PRN Reason: Nausea/Vomiting Oxybutynin Chloride (Ditropan Tab) 5 mg PO HS [facility]LEX; Protocol Last Admin: 01/11/18 21:17 Dose: 5 mg Oxycodone/Acetaminophen (Percocet 5/325 Mg Tab) 1 tab PO Q6H PRN; Protocol PRN Reason: Pain, moderate (4-7) Stop: 01/12/18 18:33 Pantoprazole Sodium (Protonix Ec Tab) 40 mg PO 0600 [facility]LEX; Protocol Last Admin: 01/12/18 05:27 Dose: 40 mg - Labs Labs: 01/11/18 10:00 01/11/18 10:00 - Constitutional Appears: Non-toxic, No Acute Distress - Eye Exam Eye Exam: EOMI, PERRL - Respiratory Exam Respiratory Exam: Clear to Ausculation Bilateral. absent: Rales, Rhonchi, Wheezes - Cardiovascular Exam Cardiovascular Exam: RRR, +S1, +S2 - GI/Abdominal Exam GI & Abdominal Exam: Distended, Soft, Normal Bowel Sounds. absent: Firm, Guarding, Rigid, Tenderness, Organomegaly - Extremities Exam Extremities Exam: Normal Inspection. absent: Pedal Edema - Neurological Exam Neurological Exam: Alert, Awake, Oriented x3 - Psychiatric Exam Psychiatric exam: Normal Affect, Normal Mood - Skin Skin Exam: Dry, Warm - Additional Findings Additional findings: port-a-cath in R chest wall Assessment and Plan - Assessment and Plan (Free Text) Assessment: Patient is a 77yo male with PMHx significant for stage IV mantle cell lymphoma (quiescence), lung cancer s/p wedge resection, perforated sigmoid diverticulitis s/p Milli procedure 06/2017, CAD s/p PCI, DM, HTN and COPD who presented with abdominal pain. -CAD s/p PCI to RCA (01/07/18) -Recent colostomy reversal (12/31/17) -Stage 4 mantle cell lymphoma -H/O lung cancer -Abdominal pain/diarrhea - resolving Plan: -Symptoms improved -Still with poor appetite, however, eager to eat more regular diet -Stool studies unremarkable -Recommend decreasing Flagyl to 250mg PO TID -Continue to monitor <Oh,Kovil V - Last Filed: 01/13/18 23:48> Objective - Vital Signs/Intake and Output Vital Signs (last 24 hours): Temp Pulse Resp BP Pulse Ox 98.8 F 63 20 101/59 L 97 01/13/18 16:00 01/13/18 17:51 01/13/18 16:00 01/13/18 17:51 01/13/18 16:00 Intake and Output: 01/13/18 01/14/18 18:59 06:59 Intake Total 360 Balance 360 - Medications Medications: Current Medications Acetaminophen (Tylenol 325mg Tab) 650 mg PO Q6H PRN PRN Reason: Pain, Mild (1-3) Last Admin: 01/11/18 19:06 Dose: 650 mg Aspirin (Ecotrin) 81 mg PO 0800 [facility]LEX; Protocol Last Admin: 01/13/18 08:43 Dose: 81 mg Atorvastatin Calcium (Lipitor) 20 mg PO QPM [facility]; Protocol Last Admin: 01/13/18 17:49 Dose: 20 mg Clopidogrel Bisulfate (Plavix) 75 mg PO DAILY [facility]; Protocol Last Admin: 01/13/18 09:41 Dose: 75 mg Ezetimibe (Zetia) 10 mg PO DAILY [facility]; Protocol Last Admin: 01/13/18 09:42 Dose: 10 mg Furosemide (Lasix) 20 mg PO DAILY [facility]; Protocol Last Admin: 01/13/18 09:40 Dose: 20 mg Insulin Human Regular (Humulin R Low) 0 units SC ACHS [facility]; Protocol Last Admin: 01/13/18 22:21 Dose: 1 unit Levalbuterol HCl (Xopenex) 0.63 mg IH TIDRESP [facility]LEX; Protocol Last Admin: 01/13/18 22:04 Dose: 0.63 mg Metoprolol Tartrate (Lopressor) 12.5 mg PO QPM [facility]; Protocol Last Admin: 01/13/18 17:51 Dose: 12.5 mg Metoprolol Tartrate (Lopressor) 25 mg PO 0800 [facility]LEX; Protocol Last Admin: 01/13/18 08:43 Dose: 25 mg Metronidazole (Flagyl) 500 mg PO Q8 [facility]LEX; Protocol Last Admin: 01/13/18 22:06 Dose: 500 mg Montelukast Sodium (Singulair) 10 mg PO QPM [facility]; Protocol Last Admin: 01/13/18 17:48 Dose: 10 mg Non-Formulary Medication (Silodosin [Rapaflo]) 8 mg PO QPM [facility] Last Admin: 01/13/18 17:50 Dose: 8 mg Non-Formulary Medication (Ranolazine [Ranexa]) 500 mg PO BID [facility]LEX Last Admin: 01/13/18 17:49 Dose: 500 mg Ondansetron HCl (Zofran Odt) 4 mg PO Q8H PRN; Protocol PRN Reason: Nausea/Vomiting Oxybutynin Chloride (Ditropan Tab) 5 mg PO HS [facility]LEX; Protocol Last Admin: 01/13/18 22:06 Dose: 5 mg Pantoprazole Sodium (Protonix Ec Tab) 40 mg PO 0600 [facility]LEX; Protocol Last Admin: 01/13/18 05:56 Dose: 40 mg - Labs Labs: 01/12/18 11:00 01/12/18 11:00 Attending/Attestation - Attestation I have personally seen and examined this patient.: Yes I have fully participated in the care of the patient.: Yes I have reviewed all pertinent clinical information, including history, physical exam and plan: Yes
[2018-01-12 11:15] LABS: BASO # 0.02 K/mm3 (0.0-2.0); BASO % 0.3 % (0.0-3.0); EOS # 0.3 (0.0-0.7); EOS % 4.1 % (1.5-5.0); GRAN # 4.9 (1.4-6.5); GRAN % 71.7 % (50.0-68.0); HEMOGLOBIN 10.6 g/dL (14.0-18.0); LYMPH # 1.1 (1.2-3.4); LYMPH % 16.3 % (22.0-35.0); MEAN CORPUSCULAR HEMOGLOBIN 29.3 pg (25.0-35.0); MEAN CORPUSCULAR HGB CONC 32.9 g/dl (31.0-37.0); MONO # 0.5 (0.1-0.6); MONO % 7.6 % (1.0-6.0); RBC 3.62 10^6/uL (3.5-6.1); RED CELL DISTRIBUTION WIDTH 15.7 % (11.5-14.5); WHITE BLOOD COUNT 6.8 10^3/uL (4.5-11.0)
[2018-01-12] MEDS: Non Formulary Medication (Ranolazine [Ranexa] 500 MG) PO SCH ×2 (11:24→17:55)
[2018-01-12 11:32] LABS: ALBUMIN 2.9 g/dL (3.0-4.8); ALT/SGPT 43 U/L (7-56); AST/SGOT 34 U/L (17-59); BLOOD UREA NITROGEN 8 mg/dL (7-21); GFR NON-AFRICAN AMERICAN > 60
--- NOTE | 2018-01-12 12:15 | CP.PCM.PN ---
Subjective - Date & Time of Evaluation Date of Evaluation: 01/12/18 Time of Evaluation: 11:10 - Subjective Subjective: Diarrhea is better, no abdominal pain, has more energy today, no fevers. Objective - Vital Signs/Intake and Output Vital Signs (last 24 hours): Temp Pulse Resp BP Pulse Ox 98.9 F 76 18 93/56 L 97 01/10/18 16:00 01/10/18 17:22 01/10/18 16:00 01/11/18 11:41 01/10/18 16:00 Intake and Output: 01/11/18 01/11/18 06:59 18:59 Intake Total 360 Output Total 160 Balance 200 - Medications Medications: Current Medications Aspirin (Ecotrin) 81 mg PO 0800 [facility]LEX; Protocol Last Admin: 01/11/18 11:40 Dose: 81 mg Atorvastatin Calcium (Lipitor) 20 mg PO QPM [facility]; Protocol Last Admin: 01/10/18 17:22 Dose: 20 mg Clopidogrel Bisulfate (Plavix) 75 mg PO DAILY [facility]; Protocol Last Admin: 01/11/18 11:41 Dose: 75 mg Ezetimibe (Zetia) 10 mg PO DAILY [facility]LEX; Protocol Last Admin: 01/11/18 11:42 Dose: 10 mg Furosemide (Lasix) 20 mg PO DAILY [facility]; Protocol Last Admin: 01/11/18 11:41 Dose: Not Given Insulin Human Regular (Humulin R Low) 0 units SC ACHS [facility]; Protocol Last Admin: 01/11/18 11:36 Dose: Not Given Levalbuterol HCl (Xopenex) 0.63 mg IH TIDRESP [facility]LEX; Protocol Last Admin: 01/11/18 07:13 Dose: 0.63 mg Metoprolol Tartrate (Lopressor) 12.5 mg PO QPM [facility]; Protocol Last Admin: 01/10/18 17:22 Dose: Not Given Metoprolol Tartrate (Lopressor) 25 mg PO 0800 [facility]LEX; Protocol Last Admin: 01/11/18 11:41 Dose: Not Given Metronidazole (Flagyl) 500 mg PO Q8 [facility]LEX; Protocol Last Admin: 01/11/18 05:21 Dose: 500 mg Montelukast Sodium (Singulair) 10 mg PO QPM [facility]; Protocol Last Admin: 01/10/18 17:25 Dose: 10 mg Non-Formulary Medication (Silodosin [Rapaflo]) 8 mg PO QPM [facility] Last Admin: 01/10/18 17:24 Dose: 8 mg Non-Formulary Medication (Ranolazine [Ranexa]) 500 mg PO BID [facility] Last Admin: 01/11/18 11:41 Dose: 500 mg Ondansetron HCl (Zofran Odt) 4 mg PO Q8H PRN; Protocol PRN Reason: Nausea/Vomiting Oxybutynin Chloride (Ditropan Tab) 5 mg PO HS [facility]; Protocol Last Admin: 01/10/18 21:13 Dose: 5 mg Oxycodone/Acetaminophen (Percocet 5/325 Mg Tab) 1 tab PO Q6H PRN; Protocol PRN Reason: Pain, moderate (4-7) Stop: 01/12/18 18:33 Pantoprazole Sodium (Protonix Ec Tab) 40 mg PO 0600 [facility]; Protocol Last Admin: 01/11/18 05:21 Dose: 40 mg - Labs Labs: 01/11/18 10:00 01/11/18 10:00 - Constitutional Appears: No Acute Distress, Chronically Ill - Head Exam Head Exam: NORMAL INSPECTION - Neck Exam Neck Exam: absent: Meningismus - Respiratory Exam Respiratory Exam: Decreased Breath Sounds - Cardiovascular Exam Cardiovascular Exam: +S1, +S2 - GI/Abdominal Exam GI & Abdominal Exam: Soft. absent: Tenderness Assessment and Plan - Assessment and Plan (Free Text) Plan: Assessment S/P SIRS with VDRF due to colostomy reversal loose bowel movement, C. diff test is negaitve S/P severe sepsis S/P acute renal failure S/P ventilator-dependent respiratory failure due to acute perforated sigmoid colon with associated diverticulitis S/P exploratory laparotomy, sigmoidectomy and colostomy history of sepsis due to acute bronchitis, with systemic viral illness history of UTI with E. 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 Casiano on Flagyl (day 5); stool for C. diff. is negative will continue to monitor clinically
--- NOTE | 2018-01-12 15:39 | PN ---
DATE: 01/12/2018 This is [facility]'s [place] health visit on transitional care floor. For Dr. Myers. SUBJECTIVE: The patient is a 77-year-old male status post revision of colostomy for ruptured diverticulum with the patient now being transferred from medical floor to TCU for reconditioning. He also suffers from mantle cell lymphoma stage IV, history of lung cancer status post resection, COPD, hypertension. His is a physician here in [facility]. At present, the patient reported left lower extremity discomfort yesterday for which Doppler ultrasound was done which preliminary report was negative and Tylenol helped to relieve his discomfort. He is on Plavix and aspirin for his cardiac issues. The patient is otherwise resting comfortable, in no acute distress this visit. PHYSICAL EXAMINATION: VITAL SIGNS: Temperature 98.1, pulse 96, respirations 20, blood pressure 105/65, and pulse ox 94%. HEENT: Unremarkable. NECK: Supple. HEART: Regular rate. Occasional ectopic beat. LUNGS: Clear. ABDOMEN: Soft with binder on. EXTREMITIES: No edema. Negative Homans sign today. SKIN: Warm, dry, and clear. NEUROLOGIC: Awake and alert. LABORATORY DATA: Labs were done. White blood cell count of 6.8, hemoglobin 10.6, hematocrit 32.2, platelet count 227,000 with a chem metabolic panel within normal limits, potassium of 3.8 today, calcium of 8, nonfasting glucose 235. The patient's extremity ultrasound of left lower extremity was preliminary read as negative. The patient's chest x-ray was done yesterday. It was read as no active disease. ASSESSMENT: The assessment for this patient is that of postoperative reversible colostomy; anemia of chronic disease; hypokalemia, corrected; stage IV mantle cell lymphoma; atherosclerotic cardiovascular disease, history of stenting, on anticoagulation; zzy-wpyyfgl-sxrogtaky diabetes; deconditioning; status post angioplasty; benign prostatic hypertrophy; hyperlipidemia; hypogammaglobulinemia; chronic obstructive pulmonary disease; history of lung cancer, status post wedge resection. PLAN: Plan for this patient is to continue reconditioning on TCU. We will monitor clinically and continue with present medical regimen. Ted Santoyo MD [facility] # [id number]
[2018-01-12] MEDS: SILODOSIN 8 MG PO SCH (17:55)
--- NOTE | 2018-01-12 22:49 | PN ---
DATE: 01/12/2018 PULMONARY PROGRESS NOTE REFERRING PHYSICIAN: Dr. Ted Santoyo SUBJECTIVELY: He is able to ambulate in the room, feels much better. No headache, no rhinitis. Short of breath with exertion. No chest pain. No nausea. Bowel movement becoming normal. Still has incision site some discomfort. No leg pain or leg swelling. OBJECTIVE: GENERAL: In no acute distress. VITAL SIGNS: Temperature is 98, heart rate 89, respiratory rate is 20, blood pressure 123/65, pulse ox 95% on room air. HEENT: Small oral cavity. Crowded airway. NECK: Supple. No JVD. LUNGS: Have a fair airflow with few rhonchi. HEART: S1 and S2. ABDOMEN: Positive bowel sounds. Incision site, mild discomfort. EXTREMITIES: There is no edema. NEUROLOGIC: Awake and alert, follows simple command. MEDICATIONS: He is on Ditropan 5 mg at bedtime, Ecotrin 81 mg daily, Flagyl 500 mg four times a day, insulin coverage, Lasix 20 mg daily, Lipitor 20 mg daily, metoprolol tartrate 12.5 mg in evening and 25 mg in the morning, Plavix 75 mg daily, Protonix 40 mg daily, Ranexa 5 mg twice a day, Singulair 10 mg daily, Tylenol p.r.n., Xopenex inhaled three times a day, Zetia 10 mg daily, Zofran 4 mg every 8 hours. LABORATORY DATA: Shows hemoglobin 10.6, hematocrit 32.2, WBC 6.8, platelet is 227. Sodium 135, potassium 3.8, chloride 103, bicarbonate 24, BUN 8, creatinine 0.9, glucose 235, calcium 8, AST 34, ALT 43, alk phos is 111. Albumin is 2.9. IMPRESSION AND PLAN: Status post laparotomy for reversal of colostomy, history of visceral perforation, non-Q-wave myocardial infarction status post catheterization, status post coronary stent, history of lung cancer requiring wedge resection, also mantle cell lymphoma, diabetes, hypertension, ADL dysfunction, suspected sleep apnea syndrome. Pulmonary point of view, doing okay. Continue bronchodilator, keep head at 45 degrees, small dose of diuretics. Gastric prophylaxis, DVT prophylaxis. Sleep apnea precaution. Careful with sedation. Continue therapy. Thank you and we will follow with you. Thanh Duffy MD
[2018-01-13] MEDS: Pantoprazole 40 mg EC Tab PO SCH (05:56)
--- NOTE | 2018-01-13 08:31 | CP.PCM.PN ---
Subjective - Date & Time of Evaluation Date of Evaluation: 01/13/18 Time of Evaluation: 08:29 - Subjective Subjective: General Surgery Dr. Pabon Pt S&E @bedside. No acute events overnight. c/o B/L LE weakness. denies F/C, N/V, D/C. tolerating diet. (+)BM/Flatus Objective - Vital Signs/Intake and Output Vital Signs (last 24 hours): Temp Pulse Resp BP Pulse Ox 98.3 F 89 20 123/65 95 01/12/18 16:00 01/12/18 17:54 01/12/18 16:00 01/12/18 17:54 01/12/18 16:00 - Medications Medications: Current Medications Acetaminophen (Tylenol 325mg Tab) 650 mg PO Q6H PRN PRN Reason: Pain, Mild (1-3) Last Admin: 01/11/18 19:06 Dose: 650 mg Aspirin (Ecotrin) 81 mg PO 0800 [facility]; Protocol Last Admin: 01/12/18 08:56 Dose: 81 mg Atorvastatin Calcium (Lipitor) 20 mg PO QPM [facility]; Protocol Last Admin: 01/12/18 17:52 Dose: 20 mg Clopidogrel Bisulfate (Plavix) 75 mg PO DAILY [facility]LEX; Protocol Last Admin: 01/12/18 11:23 Dose: 75 mg Ezetimibe (Zetia) 10 mg PO DAILY [facility]LEX; Protocol Last Admin: 01/12/18 11:25 Dose: 10 mg Furosemide (Lasix) 20 mg PO DAILY [facility]LEX; Protocol Last Admin: 01/12/18 11:25 Dose: Not Given Insulin Human Regular (Humulin R Low) 0 units SC ACHS [facility]; Protocol Last Admin: 01/12/18 21:39 Dose: Not Given Levalbuterol HCl (Xopenex) 0.63 mg IH TIDRESP [facility]LEX; Protocol Last Admin: 01/12/18 23:05 Dose: 0.63 mg Metoprolol Tartrate (Lopressor) 12.5 mg PO QPM [facility]; Protocol Last Admin: 01/12/18 17:54 Dose: 12.5 mg Metoprolol Tartrate (Lopressor) 25 mg PO 0800 [facility]; Protocol Last Admin: 01/12/18 08:58 Dose: Not Given Metronidazole (Flagyl) 500 mg PO Q8 [facility]LEX; Protocol Last Admin: 01/13/18 05:56 Dose: 500 mg Montelukast Sodium (Singulair) 10 mg PO QPM [facility]; Protocol Last Admin: 01/12/18 17:56 Dose: 10 mg Non-Formulary Medication (Silodosin [Rapaflo]) 8 mg PO QPM [facility] Last Admin: 01/12/18 17:55 Dose: 8 mg Non-Formulary Medication (Ranolazine [Ranexa]) 500 mg PO BID [facility] Last Admin: 01/12/18 17:55 Dose: 500 mg Ondansetron HCl (Zofran Odt) 4 mg PO Q8H PRN; Protocol PRN Reason: Nausea/Vomiting Oxybutynin Chloride (Ditropan Tab) 5 mg PO HS [facility]LEX; Protocol Last Admin: 01/12/18 21:39 Dose: 5 mg Pantoprazole Sodium (Protonix Ec Tab) 40 mg PO 0600 [facility]; Protocol Last Admin: 01/13/18 05:56 Dose: 40 mg - Labs Labs: 01/12/18 11:00 01/12/18 11:00 - Constitutional Appears: Non-toxic, No Acute Distress - Head Exam Head Exam: NORMAL INSPECTION - Eye Exam Eye Exam: Normal appearance - ENT Exam ENT Exam: Mucous Membranes Moist - Respiratory Exam Respiratory Exam: NORMAL BREATHING PATTERN. absent: Accessory Muscle Use, Respiratory Distress - Cardiovascular Exam Cardiovascular Exam: absent: Bradycardia, Tachycardia - GI/Abdominal Exam GI & Abdominal Exam: Soft. absent: Distended, Firm, Guarding, Tenderness, Rebound Additional comments: incisions well healed. no drainage noted - Extremities Exam Extremities Exam: Normal Inspection - Neurological Exam Neurological Exam: Alert, Awake, Oriented x3 - Psychiatric Exam Psychiatric exam: Normal Affect, Normal Mood - Skin Skin Exam: Dry, Intact, Normal Color, Warm Assessment and Plan - Assessment and Plan (Free Text) Assessment: 77 y/o M POD# 12 s/p colostomy reversal Plan: - Cont regular diet - cont medical management - cont PT - encourage OOB to chair/Amb/IS use No further surgical intervention at this time Pt discussed w/ Dr. Cm Gaxiola DO PGY3
[2018-01-13] MEDS: Insulin Reg-LOW-Coverage SC SCH ×4 (08:35→22:21)
[2018-01-13] MEDS: Levalbuterol 0.63 MG/3 ML Inhal Soln UD IH SCH ×3 (09:15→22:04)
[2018-01-13] MEDS: Non Formulary Medication (Ranolazine [Ranexa] 500 MG) PO SCH ×2 (09:41→17:49)
--- NOTE | 2018-01-13 11:10 | CP.PCM.PN ---
Subjective - Date & Time of Evaluation Date of Evaluation: 01/13/18 Time of Evaluation: 10:55 - Subjective Subjective: Resting comfortably in bed, no fevers, not in distress. Objective - Vital Signs/Intake and Output Vital Signs (last 24 hours): Temp Pulse Resp BP Pulse Ox 98.1 F 96 H 20 105/65 94 L 01/12/18 10:00 01/12/18 10:00 01/12/18 10:00 01/12/18 11:25 01/12/18 10:00 - Medications Medications: Current Medications Acetaminophen (Tylenol 325mg Tab) 650 mg PO Q6H PRN PRN Reason: Pain, Mild (1-3) Last Admin: 01/11/18 19:06 Dose: 650 mg Aspirin (Ecotrin) 81 mg PO 0800 [facility]; Protocol Last Admin: 01/12/18 08:56 Dose: 81 mg Atorvastatin Calcium (Lipitor) 20 mg PO QPM [facility]; Protocol Last Admin: 01/11/18 17:52 Dose: 20 mg Clopidogrel Bisulfate (Plavix) 75 mg PO DAILY [facility]; Protocol Last Admin: 01/12/18 11:23 Dose: 75 mg Ezetimibe (Zetia) 10 mg PO DAILY [facility]; Protocol Last Admin: 01/12/18 11:25 Dose: 10 mg Furosemide (Lasix) 20 mg PO DAILY [facility]; Protocol Last Admin: 01/12/18 11:25 Dose: Not Given Insulin Human Regular (Humulin R Low) 0 units SC ACHS [facility]; Protocol Last Admin: 01/12/18 07:21 Dose: Not Given Levalbuterol HCl (Xopenex) 0.63 mg IH TIDRESP [facility]; Protocol Last Admin: 01/12/18 07:34 Dose: 0.63 mg Metoprolol Tartrate (Lopressor) 12.5 mg PO QPM [facility]; Protocol Last Admin: 01/11/18 17:52 Dose: Not Given Metoprolol Tartrate (Lopressor) 25 mg PO 0800 [facility]; Protocol Last Admin: 01/12/18 08:58 Dose: Not Given Metronidazole (Flagyl) 500 mg PO Q8 [facility]; Protocol Last Admin: 01/12/18 05:27 Dose: 500 mg Montelukast Sodium (Singulair) 10 mg PO QPM [facility]; Protocol Last Admin: 01/11/18 17:54 Dose: 10 mg Non-Formulary Medication (Silodosin [Rapaflo]) 8 mg PO QPM [facility] Last Admin: 01/11/18 17:53 Dose: 8 mg Non-Formulary Medication (Ranolazine [Ranexa]) 500 mg PO BID [facility] Last Admin: 01/12/18 11:24 Dose: 500 mg Ondansetron HCl (Zofran Odt) 4 mg PO Q8H PRN; Protocol PRN Reason: Nausea/Vomiting Oxybutynin Chloride (Ditropan Tab) 5 mg PO HS [facility]; Protocol Last Admin: 01/11/18 21:17 Dose: 5 mg Oxycodone/Acetaminophen (Percocet 5/325 Mg Tab) 1 tab PO Q6H PRN; Protocol PRN Reason: Pain, moderate (4-7) Stop: 01/12/18 18:33 Pantoprazole Sodium (Protonix Ec Tab) 40 mg PO 0600 [facility]; Protocol Last Admin: 01/12/18 05:27 Dose: 40 mg - Labs Labs: 01/12/18 11:00 01/12/18 11:00 - Constitutional Appears: Chronically Ill - Head Exam Head Exam: NORMAL INSPECTION - Respiratory Exam Respiratory Exam: Decreased Breath Sounds - Cardiovascular Exam Cardiovascular Exam: +S1, +S2 - GI/Abdominal Exam GI & Abdominal Exam: Soft. absent: Tenderness Assessment and Plan - Assessment and Plan (Free Text) Plan: Assessment S/P SIRS with VDRF due to colostomy reversal loose bowel movement, C. diff test is negaitve S/P severe sepsis S/P acute renal failure S/P ventilator-dependent respiratory failure due to acute perforated sigmoid colon with associated diverticulitis S/P exploratory laparotomy, sigmoidectomy and colostomy history of sepsis due to acute bronchitis, with systemic viral illness history of UTI with E. coli history of left ankle skin and skin structure infection (Cellulitis, non- purulent) history of bilateral lower lobe healthcare-associated pneumonia with Stenotrop homonas, clinically improved and S/P treatment history of MSSA and Pseudomonas tracheobronchitis history of Shagufta parapsilosis fungemia, probable source is the port-a-cath - S/P removal; now with new right anterior chest wall port-a-cath mantle cell lymphoma on chemotherapy coronary artery disease benign prostatic hyperplasia dyslipidemia history of urinary tract infection Plan patient has been continued by Dr. Casiano on Flagyl (day 6); stool for C. diff. is negative will continue to monitor clinically
--- NOTE | 2018-01-13 15:57 | PN ---
DATE: 01/13/2018 SUBJECTIVE: The patient is seen sitting in bed. He is awake. He is alert. He is comfortable. PHYSICAL EXAMINATION: GENERAL: Elderly male sitting in bed. VITAL SIGNS: Blood pressure 99/63, heart rate 93, respiratory rate 20, temperature 98.3. HEENT: Normocephalic, atraumatic, positive pallor. NECK: Supple, no JVD. LUNGS: Bilateral equal air entry, no rales, no rhonchi. EXTREMITIES: No lower extremity edema. LABORATORY DATA: Hemoglobin 10.6. Sodium 135, potassium 3.8, chloride 103, CO2 24, BUN 8, creatinine 0.9, glucose 235. Calcium 8, albumin 2.9. CURRENT MEDICATIONS: Ditropan, Ecotrin, Flagyl, insulin, Lasix 20 p.o. daily, Lipitor, Lopressor, Plavix, Protonix, Tylenol, Zofran. ASSESSMENT: 1. Mild hypokalemia. 2. Noninsulin-dependent diabetes mellitus, was on Glucophage 500 b.i.d., restart (?). 3. Coronary artery disease, recent percutaneous transluminal coronary angioplasty and stent this admission. 4. Stage IV mantle cell lymphoma. 5. History of lung cancer, wedge resection. PLAN: 1. Restart metformin if okay with Surgery. 2. Monitor fingersticks, continue insulin coverage for now. 3. Push p.o. intake. 4. Physical therapy. Natalie Raman MD
--- NOTE | 2018-01-13 16:30 | US ---
PROCEDURE: Left lower extremity venous US HISTORY: Leg pain and swelling. Evaluate for DVT. PHYSICIAN(S): Je Horne MD. TECHNIQUE: Duplex sonography and color-flow Doppler with graded compression were used to evaluate the deep venous system of the left lower extremity. FINDINGS: The visualized deep venous system of the left lower extremity is sonographically normal and compressible. Normal wave forms and augmentation are seen. There is no sonographic evidence for deep venous thrombosis in the visualized segments of the left lower extremity. IMPRESSION: 1. No sonographic evidence for deep venous thrombosis in the visualized segments of the left lower extremity.
[2018-01-13] MEDS: SILODOSIN 8 MG PO SCH (17:50)
--- NOTE | 2018-01-13 18:48 | PN ---
DATE: 01/13/2018 This is [facility] visit on TCU. For Lucia. SUBJECTIVE: The patient is 77-year-old male now sitting up in the chair status post colostomy revision for ruptured diverticulum, acute abdomen earlier this year with the patient now slowly improving on TCU reporting his thierno were taken out today. 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 With this the patient is reporting his appetite has modestly improved with the patient otherwise in no acute distress. He did requests bananas to be added to his diet, which was done. PHYSICAL EXAMINATION: VITAL SIGNS: Temperature 98.2, pulse 92, respirations 20, blood pressure 99/63, pulse ox 99%. HEENT: Unremarkable. Tongue is minimally coated, does not have the chronic nature despite treatment with the antifungals in the past, but it is dry. We recommend increase his clear liquids. NECK: Supple. HEART: Regular rate. LUNGS: Clear. ABDOMEN: Soft with mid abdominal surgical wound, healing well. No signs of infection. EXTREMITIES: No edema. SKIN: Warm and dry. NEUROLOGIC: Awake and alert. LABORATORY DATA: The patient's labs were done yesterday. That will be repeated in 2 days as per TCU protocols. ASSESSMENT: The assessment for this patient is that of status post colostomy reversal with systemic inflammatory response syndrome, maybe of chronic disease, hyperkalemia, stage IV mantle cell lymphoma, atherosclerotic cardiovascular disease, history of stenting on anticoagulation, diabetes mellitus, deconditioning, benign prostatic hypertrophy, hypogammaglobulinemia, history of lung cancer, anxiety. PLAN: Plan for this patient is to continue his present medical regimen. We will ask for labs in 2 days time with the prognosis for this patient is guarded. This is a complex patient with a comprehensive medically necessary and appropriate visit carried out in excess of 20 minutes with the patient's questions answered to his satisfaction. Ted Santoyo MD
--- NOTE | 2018-01-14 01:50 | PN ---
DATE: 01/13/2018 Dr. Ted Santoyo SUBJECTIVE: He is lying in the bed, sleepy, arousable. Day was unremarkable. Doing well in therapy. He is still having some abdominal issue. Short of breath with exertion. No cough, no sputum production. No leg pain or leg swelling. OBJECTIVE: GENERAL: *------*. VITAL SIGNS: Temperature is 98, heart rate is 63, respiratory rate is 21, blood pressure 101/59, pulse ox 97% on room air. HEENT: Moist mucous membranes. Crowded airway. NECK: Supple, no JVD. LUNGS: Have a few basilar crackles. HEART: S1 and S2. ABDOMEN: Midline surgical scar healing well, soft, mild tenderness, has positive bowel sounds. EXTREMITIES: There is no edema. NEUROLOGIC: Sleepy, arousable, follows simple commands. MEDICATIONS: He is on Ditropan 5 mg at bedtime, Ecotrin 81 mg daily, Flagyl 500 mg every 8 hours, insulin coverage, Lasix 200 mg daily, Lipitor 200 mg daily, metoprolol tartrate 12.5 mg daily in the evening and 25 mg in the morning, Plavix is 75 mg daily, Protonix 400 mg daily, Singular 10 mg daily, Tylenol p.r.n., Xopenex every 8 hours, Zetia 10 mg daily, Zofran p.r.n. basis. LABORATORY DATA: Reviewed and noted no new lab is available since yesterday. IMPRESSION AND PLAN: Status post laparotomy for reversal of colostomy, history of visceral perforation, history of non Q-wave myocardial infarction, found to have coronary disease requiring two stents, lung cancer, history of wedge resection, mantel cell lymphoma, diabetes, hypertension, ADL dysfunction, suspected sleep apnea syndrome, ADL dysfunction, continue his pulmonary toilet, bronchodilator, gastric prophylaxis, DVT prophylaxis, out of bed to chair, fall precaution, sleep apnea precaution, careful with sedation. Thanh Duffy MD [facility] # [id number]
[2018-01-14] MEDS: Pantoprazole 40 mg EC Tab PO SCH (05:06)
[2018-01-14] MEDS: Insulin Reg-LOW-Coverage SC SCH ×4 (06:50→21:26)
[2018-01-14] MEDS: Levalbuterol 0.63 MG/3 ML Inhal Soln UD IH SCH ×3 (07:14→20:31)
--- NOTE | 2018-01-14 12:24 | PN ---
DATE: 01/14/2018 SUBJECTIVE: The patient is seen lying in bed. He is resting comfortably. He does not appear to be in any kind of distress. PHYSICAL EXAMINATION: VITAL SIGNS: Blood pressure 101/59, heart rate 63, respiratory rate 20, temperature 98.8. HEENT: Normocephalic, atraumatic, positive pallor. NECK: Supple, no JVD. LUNGS: Bilateral equal air entry, bilateral equal expansion. EXTREMITIES: No lower extremity edema. LABORATORY DATA: No new labs. MEDICATIONS: Ditropan, Ecotrin, Flagyl 250 p.o. every 8, insulin, Lasix 20 daily, Lipitor, Lopressor, Plavix 75, Protonix, Ranexa, Rapaflo, Singulair, Tylenol, Xopenex, Zetia, Zofran. ASSESSMENT: 1. Mild hypokalemia. 2. Status post laparotomy, reversal of colostomy. 3. Coronary artery disease, recent percutaneous transluminal coronary angioplasty and stent x2. 4. Hypertension. 5. Noninsulin-dependent diabetes mellitus. 6. History of stage IV mantle cell lymphoma. PLAN: 1. Okay to continue low-dose Lasix. 2. Replace potassium as needed. 3. Liberalize potassium in diet. 4. Continue Plavix, Lipitor, beta harris. Natalie Raman MD
[2018-01-14] MEDS: Non Formulary Medication (Ranolazine [Ranexa] 500 MG) PO SCH ×2 (13:20→18:49)
--- NOTE | 2018-01-14 13:29 | CP.PCM.PN ---
Subjective - Date & Time of Evaluation Date of Evaluation: 01/14/18 Time of Evaluation: 13:29 - Subjective Subjective: Hematology/Oncology Progress Note (Dr. Myers's Service) Patient seen and assessed at bedside. No acute events noted overnight. Patient reports that he his feeling "much better" today. Patient denies any complaints at this time and 12 point ROS was unremarkable. Objective - Vital Signs/Intake and Output Vital Signs (last 24 hours): Temp Pulse Resp BP Pulse Ox 98.8 F 78 20 110/62 97 01/13/18 16:00 01/14/18 13:02 01/13/18 16:00 01/14/18 13:02 01/13/18 16:00 Intake and Output: 01/14/18 01/14/18 06:59 18:59 Intake Total 360 Balance 360 - Medications Medications: Current Medications Acetaminophen (Tylenol 325mg Tab) 650 mg PO Q6H PRN PRN Reason: Pain, Mild (1-3) Last Admin: 01/11/18 19:06 Dose: 650 mg Aspirin (Ecotrin) 81 mg PO 0800 [facility]; Protocol Last Admin: 01/14/18 12:56 Dose: 81 mg Atorvastatin Calcium (Lipitor) 20 mg PO QPM [facility]; Protocol Last Admin: 01/13/18 17:49 Dose: 20 mg Clopidogrel Bisulfate (Plavix) 75 mg PO DAILY [facility]; Protocol Last Admin: 01/14/18 12:57 Dose: 75 mg Ezetimibe (Zetia) 10 mg PO DAILY [facility]; Protocol Last Admin: 01/14/18 12:57 Dose: 10 mg Furosemide (Lasix) 20 mg PO DAILY [facility]; Protocol Last Admin: 01/14/18 12:55 Dose: 20 mg Insulin Human Regular (Humulin R Low) 0 units SC ACHS [facility]; Protocol Last Admin: 01/14/18 12:51 Dose: Not Given Levalbuterol HCl (Xopenex) 0.63 mg IH TIDRESP [facility]; Protocol Last Admin: 01/14/18 13:00 Dose: 0.63 mg Metoprolol Tartrate (Lopressor) 12.5 mg PO QPM [facility]; Protocol Last Admin: 01/13/18 17:51 Dose: 12.5 mg Metoprolol Tartrate (Lopressor) 25 mg PO 0800 [facility]; Protocol Last Admin: 01/14/18 13:02 Dose: 25 mg Metronidazole (Flagyl) 250 mg PO Q8 [facility]; Protocol Montelukast Sodium (Singulair) 10 mg PO QPM [facility]; Protocol Last Admin: 01/13/18 17:48 Dose: 10 mg Non-Formulary Medication (Silodosin [Rapaflo]) 8 mg PO QPM [facility] Last Admin: 01/13/18 17:50 Dose: 8 mg Non-Formulary Medication (Ranolazine [Ranexa]) 500 mg PO BID [facility] Last Admin: 01/14/18 13:20 Dose: Not Given Ondansetron HCl (Zofran Odt) 4 mg PO Q8H PRN; Protocol PRN Reason: Nausea/Vomiting Last Admin: 01/14/18 12:54 Dose: 4 mg Oxybutynin Chloride (Ditropan Tab) 5 mg PO HS [facility]; Protocol Last Admin: 01/13/18 22:06 Dose: 5 mg Pantoprazole Sodium (Protonix Ec Tab) 40 mg PO 0600 [facility]; Protocol Last Admin: 01/14/18 05:06 Dose: 40 mg - Labs Labs: 01/12/18 11:00 01/12/18 11:00 - Additional Findings Additional findings: - Constitutional Appears: Non-toxic, No Acute Distress - Head Exam Head Exam: ATRAUMATIC, NORMOCEPHALIC - Eye Exam Eye Exam: EOMI, PERRL. absent: Scleral icterus Pupil Exam: PERRL. absent: Miosis, Mydriatic - ENT Exam ENT Exam: Mucous Membranes Moist, Normal Oropharynx - Neck Exam Neck Exam: Full ROM, Normal Inspection - Respiratory Exam Respiratory Exam: Clear to Ausculation Bilateral. absent: Rales, Rhonchi, Wheezes - Cardiovascular Exam Cardiovascular Exam: RRR, +S1, +S2. absent: Gallop, Rubs - GI/Abdominal Exam GI & Abdominal Exam: Soft, Normal Bowel Sounds. absent: Distended, Firm, Guarding, Rigid, Tenderness, Organomegaly, Rebound Additional comments: Abdominal wound dressings clean, dry and intact - Extremities Exam Extremities Exam: Normal Inspection. absent: Pedal Edema - Neurological Exam Neurological Exam: Alert, Awake - Psychiatric Exam Psychiatric exam: Normal Affect, Normal Mood - Skin Skin Exam: Dry, Intact, Normal Color, Warm Assessment and Plan - Assessment and Plan (Free Text) Assessment: 77 year old male with a past medical history significant for stage IV mantle cell lymphoma (quiescence), lung cancer s/p wedge resection, hypoglobulinemia, CAD s/p stent placement, DM2, HTN, COPD, and perforated sigmoid diverticulitis s/p Milli procedure who presented with abdominal pain and is now transferred to the TCU for further physical rehabilitation. Plan: 1. S/P Colostomy Reversal -Continue Percocet PRN for pain control -Continue OOB to chair and IS -GI and Surgery consulted, all recommendations appreciated 2. Diarrhea (Resolved) -Continue Flagyl PO (Day 7) -C. Diff serology negative -ID and GI consulted, all recommendations appreciated 3. History of CAD -S/P Cardiac cath with two BRAULIO placed -Continue Plavix, ASA, Lipitor, Zetia, and Lopressor -Cardiology consulted, all recommendations appreciated 4. Normocytic Anemia -H/H stable -S/P two units of pRBC's -Continue to monitor with periodic CBC's 5. History of COPD -Continue Duonebs -Continue Singulair 6. History of BPH -Continue Rapaflo and Oxybutynin 7. History of DM2 -SSI-Low and Accuchecks ACHS GI Prophylaxis: Protonix DVT Prophylaxis: SCD's Diet: Moderate Consistent Carbohydrate with Low Fiber Code Status: Full code Patient seen and case discussed with attending, Dr. Myers. Mariusz Méndez PGY2
--- NOTE | 2018-01-14 16:17 | CP.PCM.PN ---
Subjective - Date & Time of Evaluation Date of Evaluation: 01/14/18 Time of Evaluation: 10:10 - Subjective Subjective: No fevers, not in distress, no nausea, diarrhea is improved. Objective - Vital Signs/Intake and Output Vital Signs (last 24 hours): Temp Pulse Resp BP Pulse Ox 98.3 F 93 H 20 99/63 L 99 01/13/18 10:00 01/13/18 10:00 01/13/18 10:00 01/13/18 10:00 01/13/18 10:00 - Medications Medications: Current Medications Acetaminophen (Tylenol 325mg Tab) 650 mg PO Q6H PRN PRN Reason: Pain, Mild (1-3) Last Admin: 01/11/18 19:06 Dose: 650 mg Aspirin (Ecotrin) 81 mg PO 0800 [facility]; Protocol Last Admin: 01/13/18 08:43 Dose: 81 mg Atorvastatin Calcium (Lipitor) 20 mg PO QPM [facility]; Protocol Last Admin: 01/12/18 17:52 Dose: 20 mg Clopidogrel Bisulfate (Plavix) 75 mg PO DAILY [facility]; Protocol Last Admin: 01/13/18 09:41 Dose: 75 mg Ezetimibe (Zetia) 10 mg PO DAILY [facility]; Protocol Last Admin: 01/13/18 09:42 Dose: 10 mg Furosemide (Lasix) 20 mg PO DAILY [facility]; Protocol Last Admin: 01/13/18 09:40 Dose: 20 mg Insulin Human Regular (Humulin R Low) 0 units SC ACHS [facility]; Protocol Last Admin: 01/13/18 08:35 Dose: Not Given Levalbuterol HCl (Xopenex) 0.63 mg IH TIDRESP [facility]; Protocol Last Admin: 01/13/18 09:15 Dose: 0.63 mg Metoprolol Tartrate (Lopressor) 12.5 mg PO QPM [facility]; Protocol Last Admin: 01/12/18 17:54 Dose: 12.5 mg Metoprolol Tartrate (Lopressor) 25 mg PO 0800 [facility]; Protocol Last Admin: 01/13/18 08:43 Dose: 25 mg Metronidazole (Flagyl) 500 mg PO Q8 [facility]; Protocol Last Admin: 01/13/18 05:56 Dose: 500 mg Montelukast Sodium (Singulair) 10 mg PO QPM [facility]; Protocol Last Admin: 01/12/18 17:56 Dose: 10 mg Non-Formulary Medication (Silodosin [Rapaflo]) 8 mg PO QPM [facility] Last Admin: 01/12/18 17:55 Dose: 8 mg Non-Formulary Medication (Ranolazine [Ranexa]) 500 mg PO BID [facility] Last Admin: 01/13/18 09:41 Dose: 500 mg Ondansetron HCl (Zofran Odt) 4 mg PO Q8H PRN; Protocol PRN Reason: Nausea/Vomiting Oxybutynin Chloride (Ditropan Tab) 5 mg PO HS [facility]; Protocol Last Admin: 01/12/18 21:39 Dose: 5 mg Pantoprazole Sodium (Protonix Ec Tab) 40 mg PO 0600 [facility]; Protocol Last Admin: 01/13/18 05:56 Dose: 40 mg - Labs Labs: 01/12/18 11:00 01/12/18 11:00 - Constitutional Appears: Chronically Ill - Head Exam Head Exam: NORMAL INSPECTION - Neck Exam Neck Exam: absent: Meningismus - Respiratory Exam Respiratory Exam: Decreased Breath Sounds - Cardiovascular Exam Cardiovascular Exam: +S1, +S2 - GI/Abdominal Exam GI & Abdominal Exam: Soft. absent: Tenderness Assessment and Plan - Assessment and Plan (Free Text) Plan: Assessment S/P SIRS with VDRF due to colostomy reversal loose bowel movement, C. diff test is negaitve S/P severe sepsis S/P acute renal failure S/P ventilator-dependent respiratory failure due to acute perforated sigmoid colon with associated diverticulitis S/P exploratory laparotomy, sigmoidectomy and colostomy history of sepsis due to acute bronchitis, with systemic viral illness history of UTI with E. 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 Casiano on Flagyl (day 7); stool for C. diff. is negative will continue to monitor clinically
--- NOTE | 2018-01-14 18:09 | CP.PCM.PN ---
<MatiLizzy - Last Filed: 01/14/18 18:06> Subjective - Date & Time of Evaluation Date of Evaluation: 01/14/18 Time of Evaluation: 18:06 - Subjective Subjective: Gastroenterology Fellow/PGY6 Progress Note Patient resting comfortably. Tolerating diet. Diarrhea resolved. 12-point review of systems negative except for as a above. Objective - Vital Signs/Intake and Output Vital Signs (last 24 hours): Temp Pulse Resp BP Pulse Ox 98 F 60 18 108/60 99 01/14/18 16:00 01/14/18 16:00 01/14/18 16:00 01/14/18 16:00 01/14/18 16:00 Intake and Output: 01/14/18 01/14/18 06:59 18:59 Intake Total 360 Balance 360 - Medications Medications: Current Medications Acetaminophen (Tylenol 325mg Tab) 650 mg PO Q6H PRN PRN Reason: Pain, Mild (1-3) Last Admin: 01/11/18 19:06 Dose: 650 mg Aspirin (Ecotrin) 81 mg PO 0800 [facility]; Protocol Last Admin: 01/14/18 12:56 Dose: 81 mg Atorvastatin Calcium (Lipitor) 20 mg PO QPM [facility]; Protocol Last Admin: 01/13/18 17:49 Dose: 20 mg Clopidogrel Bisulfate (Plavix) 75 mg PO DAILY [facility]; Protocol Last Admin: 01/14/18 12:57 Dose: 75 mg Ezetimibe (Zetia) 10 mg PO DAILY [facility]; Protocol Last Admin: 01/14/18 12:57 Dose: 10 mg Furosemide (Lasix) 20 mg PO DAILY [facility]; Protocol Last Admin: 01/14/18 12:55 Dose: 20 mg Insulin Human Regular (Humulin R Low) [address] [facility]; Protocol Last Admin: 01/14/18 12:51 Dose: Not Given Levalbuterol HCl (Xopenex) 0.63 mg IH TIDRESP [facility]; Protocol Last Admin: 01/14/18 13:00 Dose: 0.63 mg Metoprolol Tartrate (Lopressor) 12.5 mg PO QPM [facility]; Protocol Last Admin: 01/13/18 17:51 Dose: 12.5 mg Metoprolol Tartrate (Lopressor) 25 mg PO 0800 [facility]; Protocol Last Admin: 01/14/18 13:02 Dose: 25 mg Metronidazole (Flagyl) 250 mg PO Q8 [facility]; Protocol Last Admin: 01/14/18 14:00 Dose: 250 mg Montelukast Sodium (Singulair) 10 mg PO QPM [facility]; Protocol Last Admin: 01/13/18 17:48 Dose: 10 mg Non-Formulary Medication (Silodosin [Rapaflo]) 8 mg PO QPM [facility] Last Admin: 01/13/18 17:50 Dose: 8 mg Non-Formulary Medication (Ranolazine [Ranexa]) 500 mg PO BID [facility] Last Admin: 01/14/18 13:20 Dose: Not Given Ondansetron HCl (Zofran Odt) 4 mg PO Q8H PRN; Protocol PRN Reason: Nausea/Vomiting Last Admin: 01/14/18 12:54 Dose: 4 mg Oxybutynin Chloride (Ditropan Tab) 5 mg PO HS [facility]; Protocol Last Admin: 01/13/18 22:06 Dose: 5 mg Pantoprazole Sodium (Protonix Ec Tab) 40 mg PO 0600 [facility]; Protocol Last Admin: 01/14/18 05:06 Dose: 40 mg - Labs Labs: 01/12/18 11:00 01/12/18 11:00 - Constitutional Appears: Non-toxic, No Acute Distress - Head Exam Head Exam: ATRAUMATIC, NORMOCEPHALIC - Eye Exam Eye Exam: EOMI, PERRL. absent: Scleral icterus Pupil Exam: PERRL. absent: Miosis, Mydriatic - ENT Exam ENT Exam: Mucous Membranes Moist, Normal Oropharynx - Neck Exam Neck Exam: Full ROM, Normal Inspection - Respiratory Exam Respiratory Exam: Clear to Ausculation Bilateral. absent: Rales, Rhonchi, Wheez es - Cardiovascular Exam Cardiovascular Exam: RRR, +S1, +S2. absent: Gallop, Rubs - GI/Abdominal Exam GI & Abdominal Exam: Soft, Normal Bowel Sounds. absent: Distended, Firm, Guarding, Rigid, Tenderness, Organomegaly, Rebound - Extremities Exam Extremities Exam: Normal Inspection. absent: Pedal Edema - Neurological Exam Neurological Exam: Alert, Awake - Psychiatric Exam Psychiatric exam: Normal Affect, Normal Mood - Skin Skin Exam: Dry, Intact, Normal Color, Warm Assessment and Plan - Assessment and Plan (Free Text) Assessment: 77 year old male with PMH of stage IV mantle cell lymphoma (quiescence), lung cancer s/p wedge resection, perforated sigmoid diverticulitis s/p Milli procedure 06/2017, CAD s/p stent placement, Diabetes, HTN, and COPD presenting with abdominal pain. Active treatment of deconditioniing s/p catheterization with revascularization of RCA s/p 2 drug-eluting stents (01/07) and colostomy reversal (01/01) with EGD/colonoscopy 12/31 showing normal EGD and 8mm cecal and 5mm rectal tubular adenomas, descending/sigmoid diverticulosis. Plan: -Flagyl day 6 -complete 10-14 day antibiotic course -diarrhea resolved -Cdiff negative -tolerating diet -H/H stable -will follow clinical course <Lakisha Casiano V - Last Filed: 01/15/18 00:59> Objective - Vital Signs/Intake and Output Vital Signs (last 24 hours): Temp Pulse Resp BP Pulse Ox 98 F 60 18 108/60 99 01/14/18 16:00 01/14/18 18:57 01/14/18 16:00 01/14/18 18:57 01/14/18 16:00 Intake and Output: 01/14/18 01/15/18 18:59 06:59 Intake Total 320 Output Total 400 Balance -80 - Medications Medications: Current Medications Acetaminophen (Tylenol 325mg Tab) 650 mg PO Q6H PRN PRN Reason: Pain, Mild (1-3) Last Admin: 01/11/18 19:06 Dose: 650 mg Aspirin (Ecotrin) 81 mg PO 0800 [facility]; Protocol Last Admin: 01/14/18 12:56 Dose: 81 mg Atorvastatin Calcium (Lipitor) 20 mg PO QPM [facility]; Protocol Last Admin: 01/14/18 18:57 Dose: 20 mg Clopidogrel Bisulfate (Plavix) 75 mg PO DAILY [facility]; Protocol Last Admin: 01/14/18 12:57 Dose: 75 mg Ezetimibe (Zetia) 10 mg PO DAILY [facility]; Protocol Last Admin: 01/14/18 12:57 Dose: 10 mg Furosemide (Lasix) 20 mg PO DAILY [facility]; Protocol Last Admin: 01/14/18 12:55 Dose: 20 mg Insulin Human Regular (Humulin R Low) 0 units SC ACHS [facility]; Protocol Last Admin: 01/14/18 21:26 Dose: Not Given Levalbuterol HCl (Xopenex) 0.63 mg IH TIDRESP [facility]; Protocol Last Admin: 01/14/18 20:31 Dose: 0.63 mg Metoprolol Tartrate (Lopressor) 12.5 mg PO QPM [facility]; Protocol Last Admin: 01/14/18 18:57 Dose: 12.5 mg Metoprolol Tartrate (Lopressor) 25 mg PO 0800 [facility]; Protocol Last Admin: 01/14/18 13:02 Dose: 25 mg Metronidazole (Flagyl) 250 mg PO Q8 [facility]; Protocol Last Admin: 01/14/18 21:25 Dose: 250 mg Montelukast Sodium (Singulair) 10 mg PO QPM [facility]; Protocol Last Admin: 01/14/18 18:58 Dose: 10 mg Non-Formulary Medication (Silodosin [Rapaflo]) 8 mg PO QPM [facility] Last Admin: 01/14/18 18:50 Dose: Not Given Non-Formulary Medication (Ranolazine [Ranexa]) 500 mg PO BID [facility] Last Admin: 01/14/18 18:49 Dose: Not Given Ondansetron HCl (Zofran Odt) 4 mg PO Q8H PRN; Protocol PRN Reason: Nausea/Vomiting Last Admin: 01/14/18 12:54 Dose: 4 mg Oxybutynin Chloride (Ditropan Tab) 5 mg PO HS [facility]; Protocol Last Admin: 01/14/18 21:25 Dose: 5 mg Pantoprazole Sodium (Protonix Ec Tab) 40 mg PO 0600 [facility]; Protocol Last Admin: 01/14/18 05:06 Dose: 40 mg - Labs Labs: 01/12/18 11:00 01/12/18 11:00 Attending/Attestation - Attestation I have personally seen and examined this patient.: Yes I have fully participated in the care of the patient.: Yes I have reviewed all pertinent clinical information, including history, physical exam and plan: Yes Notes (Text): This is an addendum to GI progress report dictated by the GI Fellow.The patient was seen and examined earlier. Medical records, lab studies, imagings were reviewed. Last 24 hours events reviewed. Agreed with the above treatment plan as outlined in GI Fellow 's notes with the addition of the following Feeling better Tolerating diet Discussed with Dr. Marques, the patient's 11/13/18 00:58
[2018-01-14] MEDS: SILODOSIN 8 MG PO SCH (18:50)
--- NOTE | 2018-01-14 20:30 | PN ---
DATE: 01/14/2018 PULMONARY PROGRESS NOTE REFERRING PHYSICIAN: Ted Santoyo MD SUBJECTIVE: He is ambulating in the room. Night was unremarkable. Feels much better. Get short of breath with exertion, but no chest pain. No nausea. Mild abdominal discomfort. No leg pain or leg swelling. Did have a bowel movement. OBJECTIVE: GENERAL: In no acute distress. VITAL SIGNS: Temperature is 98, heart rate is 60, respiratory rate is 18, blood pressure is 108/60, and pulse ox 99% on room air. HEENT: Moist mucous membrane. Crowded airway. NECK: Supple. No JVD. LUNGS: Has a fair airflow with few rhonchi. HEART: S1 and S2. ABDOMEN: Positive bowel sounds. Incision site looks okay. EXTREMITIES: There is no edema. NEUROLOGIC: Awake, alert and follows simple command. MEDICATIONS: He is on Ditropan 5 mg at bedtime, Ecotrin 81 mg daily, Flagyl 250 mg every 8 hours, Lasix 20 mg daily, Lipitor 20 mg daily, metoprolol tartrate mg daily in the evening and metoprolol 25 mg in the morning, Plavix 75 mg daily, Protonix 40 mg daily, Singulair 10 mg daily, Tylenol p.r.n. basis, Xopenex inhale every 8 hours, Zetia 10 mg daily, and Zofran p.r.n. basis. LABORATORY DATA: Shows blood sugar this morning 208. IMPRESSION AND PLAN: Status post laparotomy for reversal of colostomy; history of visceral perforation end up with non-Q-wave myocardial infarction; cath shows coronary artery disease, requiring stent; history of lung cancer, requiring wedge resection; mantle cell lymphoma; diabetes; hypertension; activities of daily living dysfunction; and suspected sleep apnea syndrome. Spoke to nursing staff. Pulmonary point of view, doing okay. Continue bronchodilator. Keep head at 45 degrees. Sleep apnea precaution. Gastric prophylaxis. Deep venous thrombosis prophylaxis. May ambulate. Encourage p.o. intake. GI and surgical followup. Thank you and we will follow with you. Thanh Duffy MD
[2018-01-15] MEDS: Pantoprazole 40 mg EC Tab PO SCH (05:10)
[2018-01-15] MEDS: Insulin Reg-LOW-Coverage SC SCH ×4 (06:33→21:34)
[2018-01-15] MEDS: Levalbuterol 0.63 MG/3 ML Inhal Soln UD IH SCH ×3 (07:19→20:41)
--- NOTE | 2018-01-15 07:36 | CP.PCM.PN ---
Subjective - Date & Time of Evaluation Date of Evaluation: 01/15/18 Time of Evaluation: 07:36 - Subjective Subjective: Mariano Gould, PGY-[address] Perez, Cardiology Mr. Marques was seen and evaluated at bedside. Reports fatigue and poor sleep last night. Denies chest pain, palpitations, shortness of breath, dizziness and headaches currently. Reports one episode of a soft bowel movement overnight. Objective - Vital Signs/Intake and Output Vital Signs (last 24 hours): Temp Pulse Resp BP Pulse Ox 98.6 F 67 18 99/55 L 96 01/15/18 06:00 01/15/18 06:00 01/15/18 06:00 01/15/18 06:00 01/15/18 06:00 Intake and Output: 01/15/18 01/15/18 06:59 18:59 Intake Total 640 Output Total 800 Balance -160 - Medications Medications: Current Medications Acetaminophen (Tylenol 325mg Tab) 650 mg PO Q6H PRN PRN Reason: Pain, Mild (1-3) Last Admin: 01/11/18 19:06 Dose: 650 mg Aspirin (Ecotrin) 81 mg PO 0800 [facility]; Protocol Last Admin: 01/14/18 12:56 Dose: 81 mg Atorvastatin Calcium (Lipitor) 20 mg PO QPM [facility]; Protocol Last Admin: 01/14/18 18:57 Dose: 20 mg Clopidogrel Bisulfate (Plavix) 75 mg PO DAILY [facility]; Protocol Last Admin: 01/14/18 12:57 Dose: 75 mg Ezetimibe (Zetia) 10 mg PO DAILY [facility]; Protocol Last Admin: 01/14/18 12:57 Dose: 10 mg Furosemide (Lasix) 20 mg PO DAILY [facility]; Protocol Last Admin: 01/14/18 12:55 Dose: 20 mg Insulin Human Regular (Humulin R Low) 0 units SC ACHS [facility]; Protocol Last Admin: 01/15/18 06:33 Dose: Not Given Levalbuterol HCl (Xopenex) 0.63 mg IH TIDRESP [facility]; Protocol Last Admin: 01/15/18 07:19 Dose: 0.63 mg Metoprolol Tartrate (Lopressor) 12.5 mg PO QPM [facility]; Protocol Last Admin: 01/14/18 18:57 Dose: 12.5 mg Metoprolol Tartrate (Lopressor) 25 mg PO 0800 [facility]; Protocol Last Admin: 01/14/18 13:02 Dose: 25 mg Metronidazole (Flagyl) 250 mg PO Q8 [facility]; Protocol Last Admin: 01/15/18 05:10 Dose: 250 mg Montelukast Sodium (Singulair) 10 mg PO QPM [facility]; Protocol Last Admin: 01/14/18 18:58 Dose: 10 mg Non-Formulary Medication (Silodosin [Rapaflo]) 8 mg PO QPM [facility] Last Admin: 01/14/18 18:50 Dose: Not Given Non-Formulary Medication (Ranolazine [Ranexa]) 500 mg PO BID [facility] Last Admin: 01/14/18 18:49 Dose: Not Given Ondansetron HCl (Zofran Odt) 4 mg PO Q8H PRN; Protocol PRN Reason: Nausea/Vomiting Last Admin: 01/14/18 12:54 Dose: 4 mg Oxybutynin Chloride (Ditropan Tab) 5 mg PO HS [facility]; Protocol Last Admin: 01/14/18 21:25 Dose: 5 mg Pantoprazole Sodium (Protonix Ec Tab) 40 mg PO 0600 [facility]; Protocol Last Admin: 01/15/18 05:10 Dose: 40 mg - Labs Labs: 01/12/18 11:00 01/12/18 11:00 - Constitutional Appears: Well, Non-toxic, No Acute Distress - Respiratory Exam Respiratory Exam: Decreased Breath Sounds. absent: Accessory Muscle Use, Chest Wall Tenderness, Wheezes, Respiratory Distress, Stridor - Cardiovascular Exam Cardiovascular Exam: RRR, +S1, +S2. absent: JVD - GI/Abdominal Exam GI & Abdominal Exam: absent: Distended, Firm, Guarding Additional comments: Abdominal dressings clean, dry and intact - Extremities Exam Extremities Exam: absent: Pedal Edema - Neurological Exam Neurological Exam: Alert, Awake, Oriented x3 - Skin Skin Exam: Dry, Intact, Pallor, Warm Assessment and Plan - Assessment and Plan (Free Text) Assessment: Patient is a 77yo male with PMHx significant for stage IV mantle cell lymphoma (quiescence), lung cancer s/p wedge resection, perforated sigmoid diverticulitis s/p Milli procedure 06/2017, CAD s/p PCI, DM, HTN and COPD who presented with abdominal pain. S/p PCI to RCA on 01/07/18. History of CAD - S/P Cardiac cath with two BRAULIO to proximal and mid RCA placed 01/07/18 - Continue Plavix, ASA, Lipitor, Zetia, and Lopressor - continue to monitor H/H - currently in TCU undergoing rehabilitation Patient seen, case reviewed and plan approved by Dr. Perez. Further recs per Dr. Perez. Mariano Gould, PGY-1
--- NOTE | 2018-01-15 08:39 | CP.PCM.PN ---
Subjective - Date & Time of Evaluation Date of Evaluation: 01/15/18 Time of Evaluation: 08:37 - Subjective Subjective: Hematology/Oncology Progress Note (Dr. Myers's Service) Patient seen and assessed at bedside in TCU. No acute events noted overnight. Patient denies any complaints at this time and 12 point ROS was unremarkable. Objective - Vital Signs/Intake and Output Vital Signs (last 24 hours): Temp Pulse Resp BP Pulse Ox 98.6 F 67 18 99/55 L 96 01/15/18 06:00 01/15/18 08:28 01/15/18 06:00 01/15/18 08:28 01/15/18 06:00 Intake and Output: 01/15/18 01/15/18 06:59 18:59 Intake Total 640 Output Total 800 Balance -160 - Medications Medications: Current Medications Acetaminophen (Tylenol 325mg Tab) 650 mg PO Q6H PRN PRN Reason: Pain, Mild (1-3) Last Admin: 01/11/18 19:06 Dose: 650 mg Aspirin (Ecotrin) 81 mg PO 0800 [facility]; Protocol Last Admin: 01/15/18 08:28 Dose: 81 mg Atorvastatin Calcium (Lipitor) 20 mg PO QPM [facility]; Protocol Last Admin: 01/14/18 18:57 Dose: 20 mg Clopidogrel Bisulfate (Plavix) 75 mg PO DAILY [facility]; Protocol Last Admin: 01/14/18 12:57 Dose: 75 mg Ezetimibe (Zetia) 10 mg PO DAILY [facility]; Protocol Last Admin: 01/14/18 12:57 Dose: 10 mg Furosemide (Lasix) 20 mg PO DAILY [facility]; Protocol Last Admin: 01/14/18 12:55 Dose: 20 mg Insulin Human Regular (Humulin R Low) 0 units SC ACHS [facility]; Protocol Last Admin: 01/15/18 06:33 Dose: Not Given Levalbuterol HCl (Xopenex) 0.63 mg IH TIDRESP [facility]; Protocol Last Admin: 01/15/18 07:19 Dose: 0.63 mg Metoprolol Tartrate (Lopressor) 12.5 mg PO QPM [facility]; Protocol Last Admin: 01/14/18 18:57 Dose: 12.5 mg Metoprolol Tartrate (Lopressor) 25 mg PO 0800 [facility]; Protocol Last Admin: 01/15/18 08:28 Dose: Not Given Metronidazole (Flagyl) 250 mg PO Q8 [facility]; Protocol Last Admin: 01/15/18 05:10 Dose: 250 mg Montelukast Sodium (Singulair) 10 mg PO QPM [facility]; Protocol Last Admin: 01/14/18 18:58 Dose: 10 mg Non-Formulary Medication (Silodosin [Rapaflo]) 8 mg PO QPM [facility] Last Admin: 01/14/18 18:50 Dose: Not Given Non-Formulary Medication (Ranolazine [Ranexa]) 500 mg PO BID [facility] Last Admin: 01/14/18 18:49 Dose: Not Given Ondansetron HCl (Zofran Odt) 4 mg PO Q8H PRN; Protocol PRN Reason: Nausea/Vomiting Last Admin: 01/14/18 12:54 Dose: 4 mg Oxybutynin Chloride (Ditropan Tab) 5 mg PO HS [facility]; Protocol Last Admin: 01/14/18 21:25 Dose: 5 mg Pantoprazole Sodium (Protonix Ec Tab) 40 mg PO 0600 [facility]; Protocol Last Admin: 01/15/18 05:10 Dose: 40 mg - Labs Labs: 01/12/18 11:00 01/12/18 11:00 - Additional Findings Additional findings: - Constitutional Appears: Non-toxic, No Acute Distress - Head Exam Head Exam: ATRAUMATIC, NORMOCEPHALIC - Eye Exam Eye Exam: EOMI, PERRL. absent: Scleral icterus Pupil Exam: PERRL. absent: Miosis, Mydriatic - ENT Exam ENT Exam: Mucous Membranes Moist, Normal Oropharynx - Neck Exam Neck Exam: Full ROM, Normal Inspection - Respiratory Exam Respiratory Exam: Clear to Ausculation Bilateral. absent: Rales, Rhonchi, Wheezes - Cardiovascular Exam Cardiovascular Exam: RRR, +S1, +S2. absent: Gallop, Rubs - GI/Abdominal Exam GI & Abdominal Exam: Soft, Normal Bowel Sounds. absent: Distended, Firm, Guarding, Rigid, Tenderness, Organomegaly, Rebound Additional comments: Abdominal wound dressings clean, dry and intact - Extremities Exam Extremities Exam: Normal Inspection. absent: Pedal Edema - Neurological Exam Neurological Exam: Alert, Awake - Psychiatric Exam Psychiatric exam: Normal Affect, Normal Mood - Skin Skin Exam: Dry, Intact, Normal Color, Warm Assessment and Plan - Assessment and Plan (Free Text) Assessment: 77 year old male with a past medical history significant for stage IV mantle cell lymphoma (quiescence), lung cancer s/p wedge resection, hypoglobulinemia, CAD s/p stent placement, DM2, HTN, COPD, and perforated sigmoid diverticulitis s/p Milli procedure who presented with abdominal pain and is now transferred to the TCU for further physical rehabilitation. Plan: 1. S/P Colostomy Reversal -Continue Percocet PRN for pain control -Continue OOB to chair and IS -GI and Surgery consulted, all recommendations appreciated 2. Diarrhea (Resolved) -Continue Flagyl PO (Day /-14) -C. Diff serology negative -ID and GI consulted, all recommendations appreciated 3. History of CAD -S/P Cardiac cath with two BRAULIO placed -Continue Plavix, ASA, Lipitor, Zetia, Lasix and Lopressor -Cardiology consulted, all recommendations appreciated 4. Normocytic Anemia -H/H stable -S/P two units of pRBC's -Continue to monitor with periodic CBC's 5. History of COPD -Continue Xopenex -Continue Singulair 6. History of BPH -Continue Rapaflo and Oxybutynin 7. History of DM2 -SSI-Low and Accuchecks ACHS GI Prophylaxis: Protonix DVT Prophylaxis: SCD's Diet: High Consistent Carbohydrate with Low Fiber Code Status: Full code Patient seen and case discussed with attending, Dr. Myers. Mariusz Méndez PGY2
[2018-01-15] MEDS: Non Formulary Medication (Ranolazine [Ranexa] 500 MG) PO SCH ×2 (10:53→17:15)
--- NOTE | 2018-01-15 13:03 | PN ---
DATE: 01/15/2018 SUBJECTIVE: The patient is currently seen lying in bed. He just returned from therapy and he is currently asleep. According to the therapist, the patient has been doing relatively well. He has had no further medical issues in the TCU. MEDICATIONS: Medication list reviewed. The patient is currently on Ditropan, Ecotrin, Flagyl, insulin, Lasix, Lipitor, Lopressor, Plavix, Protonix, Ranexa, Rapaflo, Singulair, Tylenol, Xopenex, Zetia, and Zofran. OBJECTIVE: VITAL SIGNS: Blood pressure ranging from 96-108 systolic, diastolic from 52-60. Temperature 98.6, pulse of 67 with a respiratory rate of 18. HEENT: Shows him to be normocephalic, atraumatic. Conjunctivae are pink. Sclerae nonicteric. NECK: Supple. No neck vein distention. CHEST: Clear to auscultation and percussion with no rales, rhonchi or wheezing. CARDIOVASCULAR: Shows regular rate and rhythm without audible murmurs, rubs or gallops. ABDOMEN: Soft. No distention. Nontender. Bowel sounds are normal. No rebound or guarding. EXTREMITIES: Show no lower extremity cyanosis, clubbing or edema. LABORATORY DATA AND IMAGING: No recent labs. Last CBC from 01/12/2018: White blood cell count 6.8 with a hemoglobin of 10.6, platelet count 227,000. Chemistries from 01/12/2018 are completely normal. Last potassium was 3.8. Most recent glucose level was 190. ASSESSMENT: 1. Status post perforated diverticulitis with perforation of the sigmoid colon status post bowel obstruction status post laparotomy and most recently status post colostomy with reversal of colostomy. 2. Status post [id number] myocardial infarction, status post cardiac cath with placement of two stents in the right coronary artery. 3. Past history of atherosclerotic heart disease status post percutaneous transluminal coronary angioplasty and stents. 4. History of hypokalemia. The patient's potassium level is now normal. He does receive potassium supplements on an as-needed basis. He does remain on low-dose Lasix therapy. 5. History of anemia. Hemoglobin is stable 10.6. 6. History of mantle cell lymphoma stage IV, stable. 7. History of lung cancer, status post wedge resection, stable. 8. Past history of mild elevation of his liver enzymes, which are all stable. PLAN: 1. From renal standpoint, the patient is stable. I would recheck his electrolytes tomorrow as the patient is tentatively going to be discharged in the next 48 hours. The patient does remain on low-dose Lasix therapy. We will make certain that his magnesium and potassium levels are normal and he does not require any further supplements. 2. Continue physical therapy and rehabilitation therapy in the TCU as scheduled. 3. Follow up with Dr. Myers, his oncologist as scheduled. Usman Brady MD
[2018-01-15] MEDS: SILODOSIN 8 MG PO SCH (19:42)
[2018-01-16] MEDS: Pantoprazole 40 mg EC Tab PO SCH (05:09)
[2018-01-16] MEDS: Insulin Reg-LOW-Coverage SC SCH ×4 (06:39→21:35)
[2018-01-16 06:58] LABS: HEMOGLOBIN 9.8 g/dL (14.0-18.0); MEAN CELL VOLUME 88.1 fl (80.0-105.0); MEAN CORPUSCULAR HEMOGLOBIN 29.1 pg (25.0-35.0); MEAN PLATELET VOLUME 9.6 fl (7.0-11.0); RBC 3.37 10^6/uL (3.5-6.1); RED CELL DISTRIBUTION WIDTH 15.4 % (11.5-14.5)
[2018-01-16] MEDS: Levalbuterol 0.63 MG/3 ML Inhal Soln UD IH SCH ×4 (07:33→20:37)
[2018-01-16 07:34] LABS: ALBUMIN 2.7 g/dL (3.0-4.8); ALT/SGPT 32 U/L (7-56); AST/SGOT 22 U/L (17-59); BLOOD UREA NITROGEN 6 mg/dL (7-21); CALCIUM 7.9 mg/dL (8.4-10.5); GFR NON-AFRICAN AMERICAN > 60
--- NOTE | 2018-01-16 08:17 | PN ---
DATE: 01/15/2018 REFERRING PHYSICIAN: Ted Santoyo MD SUBJECTIVE: He is lying in the bed, sleepy, arousable. Day was unremarkable. Doing well in therapy. Still not very happy with bowel movement, but no nausea. Mild abdominal discomfort. No cough. No sputum production. Short of breath with exertion though. OBJECTIVE: GENERAL: No acute distress. VITAL SIGNS: Temperature is 98, heart rate 65, respiratory rate is 20, blood pressure 91/57, pulse ox 98% on room air. HEENT: Moist mucous membranes. Small oral cavity. NECK: Supple. No JVD. LUNGS: Fair airflow with rhonchi. HEART: S1, S2. ABDOMEN: Positive bowel sounds. Incision site looks okay. EXTREMITIES: There is no edema. NEUROLOGIC: Sleepy, arousable. Follows simple commands. MEDICATIONS: He is on Ditropan 5 mg h.s., Ecotrin 81 mg daily, Flagyl 250 mg every 8 hours, insulin coverage, Lasix 20 mg daily, Lipitor 20 mg daily, metoprolol tartrate 12.5 mg in the morning and 25 mg in the p.m., Plavix 75 mg daily, Protonix 40 mg daily, Ranexa 5 mg twice a day, Singulair 10 mg daily, Tylenol p.r.n., Xopenex inhaled three times a day, Zetia 10 mg daily, Zofran p.r.n. basis. LABORATORY DATA: Reviewed and noted. Blood sugar this morning 153. IMPRESSION AND PLAN: Status post laparotomy for reversal of colostomy, history of visceral perforation, non-Q-wave myocardial infarction, status post CAT shows coronary artery disease requiring coronary stent, lung cancer, history of wedge resection, mantel cell lymphoma, diabetes, hypertension, ADL dysfunction, suspected sleep apnea syndrome. Pulmonary point view, doing okay. Continue incentive spirometer, bronchodilator, pain management, stool softener. Gastric and DVT prophylaxis. Fall precaution. Continue therapy. Thank you and we will follow with you. Thanh Duffy MD
[2018-01-16] MEDS: Non Formulary Medication (Ranolazine [Ranexa] 500 MG) PO SCH ×3 (09:50→17:25)
--- NOTE | 2018-01-16 14:09 | PN ---
DATE: 01/16/2018 SUBJECTIVE: The patient is seen lying in bed. He is awake, he is alert and he is comfortable. PHYSICAL EXAMINATION: VITAL SIGNS: Blood pressure 144/67, heart rate 64, respiratory rate 18 and temperature 98. HEENT: Normocephalic and atraumatic. NECK: Supple, no JVD. LUNGS: Bilateral equal entry, bilateral equal expansion. CARDIAC: S1 and S2, regular rate and rhythm, no murmur, no rub. EXTREMITIES: No lower extremity edema. LABORATORY DATA: Hemoglobin 9.8. His potassium 3.6, BUN 6, creatinine 0.9, calcium 7.9, albumin 2.7 and corrected calcium is 8.6. CURRENT MEDICATIONS: Ditropan, Ecotrin, Flagyl, Lasix 20, Lipitor, Lopressor, Plavix, Protonix, Singulair and Zetia. ASSESSMENT: 1. Hypokalemia. 2. Status post laparotomy for acute abdomen, reversal of colostomy. 3. Anemia of chronic disease. 4. Low normal calcium. PLAN: 1. The patient is on Lasix, therefore we will give him potassium every day. 2. The patient is stable from the renal standpoint, we will discontinue followup. Thank you for the courtesy of this consultation. We will follow this patient if needed again. Natalie Raman MD
--- NOTE | 2018-01-16 14:09 | CP.PCM.PN ---
Subjective - Date & Time of Evaluation Date of Evaluation: 01/16/18 Time of Evaluation: 14:09 - Subjective Subjective: Hematology/Oncology Progress Note (Dr. Myers's Service) Patient seen and assessed at bedside in TCU. No acute events noted overnight. Patient reports that he is feeling subjectively better today. Patient denies any complaints at this time and 12 point ROS was unremarkable. Objective - Vital Signs/Intake and Output Vital Signs (last 24 hours): Temp Pulse Resp BP Pulse Ox 98.1 F 64 18 109/60 96 01/16/18 05:57 01/16/18 08:02 01/16/18 05:57 01/16/18 09:49 01/16/18 05:57 - Medications Medications: Current Medications Acetaminophen (Tylenol 325mg Tab) 650 mg PO Q6H PRN PRN Reason: Pain, Mild (1-3) Last Admin: 01/11/18 19:06 Dose: 650 mg Aspirin (Ecotrin) 81 mg PO 0800 [facility]; Protocol Last Admin: 01/16/18 08:02 Dose: 81 mg Atorvastatin Calcium (Lipitor) 20 mg PO QPM [facility]; Protocol Last Admin: 01/15/18 17:13 Dose: 20 mg Clopidogrel Bisulfate (Plavix) 75 mg PO DAILY [facility]; Protocol Last Admin: 01/16/18 09:49 Dose: 75 mg Ezetimibe (Zetia) 10 mg PO DAILY [facility]LEX; Protocol Last Admin: 01/16/18 09:50 Dose: 10 mg Furosemide (Lasix) 20 mg PO DAILY [facility]LEX; Protocol Last Admin: 01/16/18 09:49 Dose: 20 mg Insulin Human Regular (Humulin R Low) 0 units SC ACHS [facility]; Protocol Last Admin: 01/16/18 12:28 Dose: 1 unit Levalbuterol HCl (Xopenex) 0.63 mg IH TIDRESP [facility]; Protocol Last Admin: 01/16/18 13:50 Dose: Not Given Metoprolol Tartrate (Lopressor) 12.5 mg PO QPM [facility]; Protocol Last Admin: 01/15/18 17:11 Dose: Not Given Metoprolol Tartrate (Lopressor) 25 mg PO 0800 [facility]LEX; Protocol Last Admin: 01/16/18 08:02 Dose: 25 mg Metronidazole (Flagyl) 250 mg PO Q8 ALEX; Protocol Last Admin: 01/16/18 05:09 Dose: 250 mg Montelukast Sodium (Singulair) 10 mg PO QPM REPLACED BY [facility]; Protocol Last Admin: 01/15/18 17:16 Dose: 10 mg Non-Formulary Medication (Silodosin [Rapaflo]) 8 mg PO QPM REPLACED BY [facility] Last Admin: 01/15/18 19:42 Dose: Not Given Non-Formulary Medication (Ranolazine [Ranexa]) 500 mg PO BID REPLACED BY [facility] Last Admin: 01/16/18 09:50 Dose: Not Given Ondansetron HCl (Zofran Odt) 4 mg PO Q8H PRN; Protocol PRN Reason: Nausea/Vomiting Last Admin: 01/14/18 12:54 Dose: 4 mg Oxybutynin Chloride (Ditropan Tab) 5 mg PO HS REPLACED BY [facility]; Protocol Last Admin: 01/15/18 21:19 Dose: 5 mg Pantoprazole Sodium (Protonix Ec Tab) 40 mg PO 0600 REPLACED BY [facility]; Protocol Last Admin: 01/16/18 05:09 Dose: 40 mg Potassium Chloride (Potassium Chloride Oral Soln) 20 meq PO DAILY REPLACED BY [facility] - Labs Labs: 01/16/18 06:35 01/16/18 06:35 - Additional Findings Additional findings: - Constitutional Appears: Non-toxic, No Acute Distress - Head Exam Head Exam: ATRAUMATIC, NORMOCEPHALIC - Eye Exam Eye Exam: EOMI, PERRL. absent: Scleral icterus Pupil Exam: PERRL. absent: Miosis, Mydriatic - ENT Exam ENT Exam: Mucous Membranes Moist, Normal Oropharynx - Neck Exam Neck Exam: Full ROM, Normal Inspection - Respiratory Exam Respiratory Exam: Clear to Ausculation Bilateral. absent: Rales, Rhonchi, Wheezes - Cardiovascular Exam Cardiovascular Exam: RRR, +S1, +S2. absent: Gallop, Rubs - GI/Abdominal Exam GI & Abdominal Exam: Soft, Normal Bowel Sounds. absent: Distended, Firm, Guarding, Rigid, Tenderness, Organomegaly, Rebound Additional comments: Abdominal wound dressings clean, dry and intact - Extremities Exam Extremities Exam: Normal Inspection. absent: Pedal Edema - Neurological Exam Neurological Exam: Alert, Awake - Psychiatric Exam Psychiatric exam: Normal Affect, Normal Mood - Skin Skin Exam: Dry, Intact, Normal Color, Warm Assessment and Plan - Assessment and Plan (Free Text) Assessment: 77 year old male with a past medical history significant for stage IV mantle cell lymphoma (quiescence), lung cancer s/p wedge resection, hypoglobulinemia, CAD s/p stent placement, DM2, HTN, COPD, and perforated sigmoid diverticulitis s/p Milli procedure who presented with abdominal pain and is now transferred to the TCU for further physical rehabilitation. Plan: 1. S/P Colostomy Reversal -Continue Tylenol PRN for pain control -Continue OOB to chair and IS -GI and Surgery consulted, all recommendations appreciated 2. Diarrhea (Resolved) -Continue Flagyl PO (Day /-14) -C. Diff serology negative -ID and GI consulted, all recommendations appreciated 3. History of CAD -S/P Cardiac cath with two BRAULIO placed -Continue Ranexa, Plavix, ASA, Lipitor, Zetia, Lasix and Lopressor -Cardiology consulted, all recommendations appreciated 4. Normocytic Anemia -H/H stable at 9.8/29.7 -S/P two units of pRBC's -Continue to monitor with periodic CBC's 5. History of COPD -Continue Xopenex -Continue Singulair 6. History of BPH -Continue Rapaflo and Oxybutynin 7. History of DM2 -SSI-Low and Accuchecks ACHS GI Prophylaxis: Protonix DVT Prophylaxis: SCD's Diet: High Consistent Carbohydrate with Low Fiber Code Status: Full code Patient seen and case discussed with attending, Dr. Myers. Mariusz Méndez PGY2
[2018-01-16] MEDS: Potassium Chloride 20 mEq/15 ml LIQ UD PO SCH (15:03)
--- NOTE | 2018-01-16 16:05 | PN ---
DATE: 01/16/2018 PULMONARY PROGRESS NOTE REFERRING PHYSICIAN: Ted Santoyo MD. SUBJECTIVE: He feels better, walking with the help of therapist in the hallway. Did have a bowel movement. Short of breath with exertion. Mild cough. No sputum production. No chest pain. Mild abdominal discomfort. No leg pain. No leg swelling. OBJECTIVE: GENERAL: In no acute distress. VITAL SIGNS: Temperature is 98, heart rate 64, respiratory rate is 18, blood pressure 109/60, pulse ox 96% on room air. HEENT: Moist mucous membranes. Small oral cavity. Crowded airway. NECK: Supple. No JVD. LUNGS: Have a fair airflow with rhonchi. HEART: S1 and S2. ABDOMEN: Soft. Incision site looks okay. Mild tenderness. EXTREMITIES: There is no edema. NEUROLOGICAL: Awake and alert. Follows simple command. MEDICATIONS: He is on Ditropan 5 mg at bedtime, Ecotrin 81 mg daily, Flagyl 250 mg every 8 hours, insulin coverage, Lasix 20 mg daily, Lipitor 20 mg daily, metoprolol tartrate 12.5 mg at p.m. and then 25 mg in the morning, Plavix 75 mg daily, potassium supplement 20 mEq daily, Protonix 40 mg daily, Ranexa 5 mg twice a day, Singulair 10 mg daily, Tylenol p.r.n., Xopenex 0.63 every 8 hours, Zetia 10 mg daily, Zofran p.r.n. basis. LABORATORY DATA: Shows hemoglobin 9.8, hematocrit 29.7, WBC 5, platelet count is 250. Sodium 137, potassium 3.6, chloride 106, bicarbonate 26, BUN 6, creatinine 0.9, glucose 117, calcium 7.9, phosphorus 3.6, magnesium 1.7, AST 22, ALT 32, alk phos is 97, albumin is 2.7. IMPRESSION AND PLAN: Status post laparotomy for a reversal of colostomy and visceral perforation, non-Q myocardial infarction, status post coronary stent, history of lung cancer requiring wedge resection, mantle cell lymphoma, diabetes, hypertension, activities of daily living dysfunction, suspected sleep apnea syndrome. Pulmonary point of view, doing well. Continue bronchodilator. Keep head at 45 degrees. Incentive spirometer, sleep apnea precaution. Careful with sedation. Gastric prophylaxis, deep venous thrombosis prophylaxis. Fall precaution. Thank you and we will follow with you. Thanh Duffy MD
--- NOTE | 2018-01-16 16:40 | CP.PCM.PN ---
Subjective - Date & Time of Evaluation Date of Evaluation: 01/16/18 Time of Evaluation: 09:10 - Subjective Subjective: Diarrhea is improved, no fevers. No abdominal pain, eating well. Objective - Vital Signs/Intake and Output Vital Signs (last 24 hours): Temp Pulse Resp BP Pulse Ox 98.1 F 64 18 109/60 96 01/16/18 05:57 01/16/18 08:02 01/16/18 05:57 01/16/18 09:49 01/16/18 05:57 - Medications Medications: Current Medications Acetaminophen (Tylenol 325mg Tab) 650 mg PO Q6H PRN PRN Reason: Pain, Mild (1-3) Last Admin: 01/11/18 19:06 Dose: 650 mg Aspirin (Ecotrin) 81 mg PO 0800 [facility]; Protocol Last Admin: 01/16/18 08:02 Dose: 81 mg Atorvastatin Calcium (Lipitor) 20 mg PO QPM [facility]; Protocol Last Admin: 01/15/18 17:13 Dose: 20 mg Clopidogrel Bisulfate (Plavix) 75 mg PO DAILY [facility]; Protocol Last Admin: 01/16/18 09:49 Dose: 75 mg Ezetimibe (Zetia) 10 mg PO DAILY [facility]LEX; Protocol Last Admin: 01/16/18 09:50 Dose: 10 mg Furosemide (Lasix) 20 mg PO DAILY [facility]; Protocol Last Admin: 01/16/18 09:49 Dose: 20 mg Insulin Human Regular (Humulin R Low) 0 units SC ACHS [facility]; Protocol Last Admin: 01/16/18 12:28 Dose: 1 unit Levalbuterol HCl (Xopenex) 0.63 mg IH TIDRESP [facility]LEX; Protocol Last Admin: 01/16/18 15:27 Dose: 0.63 mg Metoprolol Tartrate (Lopressor) 12.5 mg PO QPM [facility]; Protocol Last Admin: 01/15/18 17:11 Dose: Not Given Metoprolol Tartrate (Lopressor) 25 mg PO 0800 [facility]; Protocol Last Admin: 01/16/18 08:02 Dose: 25 mg Montelukast Sodium (Singulair) 10 mg PO QPM [facility]; Protocol Last Admin: 01/15/18 17:16 Dose: 10 mg Non-Formulary Medication (Silodosin [Rapaflo]) 8 mg PO QPM [facility] Last Admin: 01/15/18 19:42 Dose: Not Given Non-Formulary Medication (Ranolazine [Ranexa]) 500 mg PO BID [facility] Last Admin: 01/16/18 09:50 Dose: Not Given Ondansetron HCl (Zofran Odt) 4 mg PO Q8H PRN; Protocol PRN Reason: Nausea/Vomiting Last Admin: 01/14/18 12:54 Dose: 4 mg Oxybutynin Chloride (Ditropan Tab) 5 mg PO HS ALEX; Protocol Last Admin: 01/15/18 21:19 Dose: 5 mg Pantoprazole Sodium (Protonix Ec Tab) 40 mg PO 0600 [facility]; Protocol Last Admin: 01/16/18 05:09 Dose: 40 mg Potassium Chloride (Potassium Chloride Oral Soln) 20 meq PO DAILY [facility] Last Admin: 01/16/18 15:03 Dose: 20 meq - Labs Labs: 01/16/18 06:35 01/16/18 06:35 - Constitutional Appears: Chronically Ill - Head Exam Head Exam: NORMAL INSPECTION - Respiratory Exam Respiratory Exam: Decreased Breath Sounds - Cardiovascular Exam Cardiovascular Exam: +S1, +S2 - GI/Abdominal Exam GI & Abdominal Exam: Soft. absent: Tenderness Assessment and Plan - Assessment and Plan (Free Text) Plan: Assessment S/P SIRS with VDRF due to colostomy reversal loose bowel movement, C. diff test is negaitve, and clinically improved S/P severe sepsis S/P acute renal failure S/P ventilator-dependent respiratory failure due to acute perforated sigmoid colon with associated diverticulitis S/P exploratory laparotomy, sigmoidectomy and colostomy history of sepsis due to acute bronchitis, with systemic viral illness history of UTI with E. 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 diff. is negative will continue to monitor clinically
[2018-01-16] MEDS: SILODOSIN 8 MG PO SCH (17:25)
[2018-01-17] MEDS: Pantoprazole 40 mg EC Tab PO SCH (05:37)
[2018-01-17] MEDS: Levalbuterol 0.63 MG/3 ML Inhal Soln UD IH SCH ×3 (07:10→20:35)
[2018-01-17] MEDS: Insulin Reg-LOW-Coverage SC SCH ×4 (07:33→21:59)
[2018-01-17] MEDS: Non Formulary Medication (Ranolazine [Ranexa] 500 MG) PO SCH ×2 (10:38→17:24)
--- NOTE | 2018-01-17 12:44 | PN ---
DATE: 01/17/2018 PULMONARY PROGRESS NOTE REFERRING PHYSICIAN: Ted Santoyo MD. SUBJECTIVE: He is moving, walking in the room. Night was unremarkable. Still has one watery diarrhea early this morning. No chest pain. No shortness of breath. Not much abdominal pain. No leg pain. No leg swelling. OBJECTIVE: GENERAL: In no acute distress. VITAL SIGNS: Temperature is 98, heart rate is 91, respiratory rate is 20, blood pressure 109/56. HEENT: Moist mucous membrane. Small oral cavity. NECK: Supple. No JVD. LUNGS: Have a fair airflow with few rhonchi. HEART: S1 and S2. ABDOMEN: Soft, nontender. Incision site looks okay. EXTREMITIES: There is no edema. NEUROLOGICAL: Awake and alert. Follows simple command. MEDICATIONS: He is on Ditropan 5 mg at bedtime, Ecotrin 81 mg daily, Lasix 20 mg daily, Lipitor 20 mg daily, metoprolol tartrate 12.5 mg in the evening and 25 mg in the morning, Plavix 75 mg daily, potassium supplement, Protonix 40 mg daily, Ranexa 500 mg twice a day, Singulair 10 mg daily, Tylenol p.r.n. Xopenex inhaled every 8 hours, Zetia 10 mg daily, Zofran p.r.n. basis. LABORATORY DATA: Reviewed and noted blood sugar this morning 261. IMPRESSION AND PLAN: Status post laparotomy for reversal of colostomy, history of visceral perforation, status post non-Q myocardial infarction requiring catheterization and stenting, history of lung cancer requiring wedge resection in the remote past, has a mantle cell lymphoma, diabetes, hypertension, activities of daily living dysfunction, suspected sleep apnea syndrome. Pulmonary point of view, doing well. We will continue bronchodilator. Keep head at 45 degrees. Continue diuretics. Gastric prophylaxis, deep venous thrombosis prophylaxis. Fall precautions. Spoke to therapist. Need followup with Infectious Diseases. Continue monitor diarrhea. Thank you and we will follow with you. Thanh Duffy MD
--- NOTE | 2018-01-17 15:55 | PN ---
DATE: 01/17/2018 This is [facility] physicians care surgical hospital visit on TCU. For Dr. Myers. SUBJECTIVE: The patient is a 77-year-old male, seen sitting up in a chair reporting that he had a small amount of loose stool yesterday and earlier today. However, the patient is status post reversal of a colostomy for an acute abdomen. Emergency surgery for perforated diverticulum in the recent past with the patient now otherwise resting comfortably. Participating with TCU protocols. He also suffers a mantle cell lymphoma, stage IV COPD. OBJECTIVE PHYSICAL EXAMINATION: VITAL SIGNS: Temperature 98.3, pulse 91, respirations 18, blood pressure 109/56 with a pulse ox of 99%. HEENT: Unremarkable. Tongue is dry. NECK: Supple. HEART: Regular rate. LUNGS: Occasional rhonchi. ABDOMEN: Soft, nontender with dressings dry and intact. No signs of infection. EXTREMITIES: No edema. SKIN: Warm and dry. NEUROLOGIC: Awake and alert. LABORATORY DATA: The patient's labs were done yesterday. White blood cell count of 5, hemoglobin 9.8, hematocrit 29.7, platelet count of 250,000. The chem panel also from yesterday within normal range. Nonfasting glucose of 183. ASSESSMENT: The assessment for this patient is that of postoperative colostomy reversal, history of non-Q-wave myocardial infarction, status post catheterization and stent, history of lung cancer with wedge resection, mantle cell lymphoma, stage IV diabetes, hypertension, hypogammaglobulinemia, deconditioning, anxiety, diabetes mellitus. PLAN: Plan for this patient is to continue present medical regimen. We will check labs in the a.m. We will ask for stool for C. difficile with considerations for Imodium only as per Dr. Casaino, his gastrointestinal learning consultant or his surgeon as indicated. This is a complex patient with a comprehensive medically necessary and appropriate visit carried out in excess of 20 minutes with the patient's questions answered to his satisfaction. Ted Santoyo MD
[2018-01-17] MEDS: Potassium Chloride 20 mEq/15 ml LIQ UD PO SCH (17:23)
[2018-01-17] MEDS: SILODOSIN 8 MG PO SCH (17:24)
--- NOTE | 2018-01-17 19:04 | PN ---
DATE: 01/17/2018 SUBJECTIVE: The patient is seen earlier this morning in room 315. No fevers, no chills PHYSICAL EXAMINATION: VITAL SIGNS: Temperature is 97, blood pressure is 119/60, respiratory rate of 18. HEENT: Examination of HEENT is unremarkable. NECK: Supple. LUNGS: Have decreased breath sounds. HEART: Normal S1, S2. ABDOMEN: Soft, nontender. LABORATORY EXAMINATION: Reveals a white count of 5, hemoglobin of 9, platelets of 250,000. Chemistry reveals a BUN of 6 and creatinine of 0.9. 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 The patient had respiratory failure, acute perforated sigmoid colon with associated diverticulitis in the past, sigmoidectomy and colostomy. Review of orders reveals the patient to be off of antibiotics. The patient is at risk for developing nosocomial infections . Marvin Callahan MD
[2018-01-18] MEDS: Pantoprazole 40 mg EC Tab PO SCH (06:08)
[2018-01-18 06:16] LABS: BASO # 0.02 K/mm3 (0.0-2.0); BASO % 0.4 % (0.0-3.0); EOS # 0.3 (0.0-0.7); EOS % 4.8 % (1.5-5.0); GRAN # 3.49 (1.4-6.5); GRAN % 62.3 % (50.0-68.0); LYMPH # 1.4 (1.2-3.4); LYMPH % 24.6 % (22.0-35.0); MEAN CELL VOLUME 86.9 fl (80.0-105.0); MEAN CORPUSCULAR HEMOGLOBIN 29.1 pg (25.0-35.0); MEAN CORPUSCULAR HGB CONC 33.4 g/dl (31.0-37.0); MEAN PLATELET VOLUME 9.5 fl (7.0-11.0); MONO # 0.4 (0.1-0.6); MONO % 7.9 % (1.0-6.0); RBC 3.44 10^6/uL (3.5-6.1); RED CELL DISTRIBUTION WIDTH 15.1 % (11.5-14.5); WHITE BLOOD COUNT 5.6 10^3/uL (4.5-11.0)
[2018-01-18] MEDS: Insulin Reg-LOW-Coverage SC SCH ×5 (06:35→22:05)
[2018-01-18] MEDS: Levalbuterol 0.63 MG/3 ML Inhal Soln UD IH SCH ×3 (07:12→20:56)
[2018-01-18 08:08] LABS: ALBUMIN 2.7 g/dL (3.0-4.8); ALT/SGPT 27 U/L (7-56); AST/SGOT 29 U/L (17-59); BLOOD UREA NITROGEN 11 mg/dL (7-21); CALCIUM 8.1 mg/dL (8.4-10.5); GFR NON-AFRICAN AMERICAN > 60
[2018-01-18] MEDS: Potassium Chloride 20 mEq/15 ml LIQ UD PO SCH (12:02)
[2018-01-18] MEDS: Non Formulary Medication (Ranolazine [Ranexa] 500 MG) PO SCH ×2 (12:03→17:34)
--- NOTE | 2018-01-18 15:27 | CP.PCM.PN ---
Subjective - Date & Time of Evaluation Date of Evaluation: 01/18/18 Time of Evaluation: 09:40 - Subjective Subjective: Occasional loose but not watery bowel movement, eating better, no fevers, no nausea. Objective - Vital Signs/Intake and Output Vital Signs (last 24 hours): Temp Pulse Resp BP Pulse Ox 98.1 F 64 18 109/60 96 01/16/18 05:57 01/16/18 08:02 01/16/18 05:57 01/16/18 09:49 01/16/18 05:57 - Medications Medications: Current Medications Acetaminophen (Tylenol 325mg Tab) 650 mg PO Q6H PRN PRN Reason: Pain, Mild (1-3) Last Admin: 01/11/18 19:06 Dose: 650 mg Aspirin (Ecotrin) 81 mg PO 0800 [facility]; Protocol Last Admin: 01/16/18 08:02 Dose: 81 mg Atorvastatin Calcium (Lipitor) 20 mg PO QPM [facility]; Protocol Last Admin: 01/15/18 17:13 Dose: 20 mg Clopidogrel Bisulfate (Plavix) 75 mg PO DAILY ALEX; Protocol Last Admin: 01/16/18 09:49 Dose: 75 mg Ezetimibe (Zetia) 10 mg PO DAILY ALEX; Protocol Last Admin: 01/16/18 09:50 Dose: 10 mg Furosemide (Lasix) 20 mg PO DAILY [facility]LEX; Protocol Last Admin: 01/16/18 09:49 Dose: 20 mg Insulin Human Regular (Humulin R Low) 0 units SC ACHS ALEX; Protocol Last Admin: 01/16/18 12:28 Dose: 1 unit Levalbuterol HCl (Xopenex) 0.63 mg IH TIDRESP [facility]LEX; Protocol Last Admin: 01/16/18 15:27 Dose: 0.63 mg Metoprolol Tartrate (Lopressor) 12.5 mg PO QPM [facility]LEX; Protocol Last Admin: 01/15/18 17:11 Dose: Not Given Metoprolol Tartrate (Lopressor) 25 mg PO 0800 [facility]LEX; Protocol Last Admin: 01/16/18 08:02 Dose: 25 mg Montelukast Sodium (Singulair) 10 mg PO QPM [facility]LEX; Protocol Last Admin: 01/15/18 17:16 Dose: 10 mg Non-Formulary Medication (Silodosin [Rapaflo]) 8 mg PO QPM [facility]LEX Last Admin: 01/15/18 19:42 Dose: Not Given Non-Formulary Medication (Ranolazine [Ranexa]) 500 mg PO BID [facility] Last Admin: 01/16/18 09:50 Dose: Not Given Ondansetron HCl (Zofran Odt) 4 mg PO Q8H PRN; Protocol PRN Reason: Nausea/Vomiting Last Admin: 01/14/18 12:54 Dose: 4 mg Oxybutynin Chloride (Ditropan Tab) 5 mg PO HS [facility]LEX; Protocol Last Admin: 01/15/18 21:19 Dose: 5 mg Pantoprazole Sodium (Protonix Ec Tab) 40 mg PO 0600 [facility]; Protocol Last Admin: 01/16/18 05:09 Dose: 40 mg Potassium Chloride (Potassium Chloride Oral Soln) 20 meq PO DAILY [facility]LEX Last Admin: 01/16/18 15:03 Dose: 20 meq - Labs Labs: 01/16/18 06:35 01/16/18 06:35 - Constitutional Appears: Chronically Ill - Head Exam Head Exam: NORMAL INSPECTION - Respiratory Exam Respiratory Exam: Decreased Breath Sounds - Cardiovascular Exam Cardiovascular Exam: +S1, +S2 - GI/Abdominal Exam GI & Abdominal Exam: Soft. absent: Tenderness Assessment and Plan - Assessment and Plan (Free Text) Plan: Assessment S/P SIRS with VDRF due to colostomy reversal loose bowel movement, C. diff test is negaitve, and clinically improved S/P severe sepsis S/P acute renal failure S/P ventilator-dependent respiratory failure due to acute perforated sigmoid colon with associated diverticulitis S/P exploratory laparotomy, sigmoidectomy and colostomy history of sepsis due to acute bronchitis, with systemic viral illness history of UTI with E. 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 diff. is negative will continue to monitor clinically off antibiotics
[2018-01-18] MEDS: Aluminum Hydrox Gel 320 mg/5 ml Susp(480 ml) PO PRN (17:25)
[2018-01-18] MEDS: SILODOSIN 8 MG PO SCH (17:35)
--- NOTE | 2018-01-18 18:35 | CP.PCM.DIS ---
Provider - Provider Date of Admission: 01/09/18 17:04 Attending physician: Ted Santoyo MD Primary care physician: Dr. Myers Consults: Cardio: Dr. Perez ID: Dr. Callahan Neurology: Dr. Oneal GI: Dr. Casiano Surgery: Dr. Pabon Pulm: Dr. Duffy Nephrology: Dr. Raman Time Spent in preparation of Discharge (in minutes): 59 Hospital Course - Lab Results Lab Results: Micro Results 01/18/18 06:16 Stool C. difficile Antigen & Toxins A,B - Final Most Recent Lab Values WBC 5.6 10^3/uL (4.5-11.0) 01/18/18 06:11 RBC 3.44 10^6/uL (3.5-6.1) L 01/18/18 06:11 Hgb 10.0 g/dL (14.0-18.0) L 01/18/18 06:11 Hct 29.9 % (42.0-52.0) L 01/18/18 06:11 MCV 86.9 fl (80.0-105.0) 01/18/18 06:11 MCH 29.1 pg (25.0-35.0) 01/18/18 06:11 MCHC 33.4 g/dl (31.0-37.0) 01/18/18 06:11 RDW 15.1 % (11.5-14.5) H 01/18/18 06:11 Plt Count 235 10^3/uL (120.0-450.0) 01/18/18 06:11 MPV 9.5 fl (7.0-11.0) 01/18/18 06:11 Gran % 62.3 % (50.0-68.0) 01/18/18 06:11 Lymph % (Auto) 24.6 % (22.0-35.0) 01/18/18 06:11 Hendricks % (Auto) 7.9 % (1.0-6.0) H 01/18/18 06:11 Eos % (Auto) 4.8 % (1.5-5.0) 01/18/18 06:11 Baso % (Auto) 0.4 % (0.0-3.0) 01/18/18 06:11 Gran # 3.49 (1.4-6.5) 01/18/18 06:11 Lymph # (Auto) 1.4 (1.2-3.4) 01/18/18 06:11 Hendricks # (Auto) 0.4 (0.1-0.6) 01/18/18 06:11 Eos # (Auto) 0.3 (0.0-0.7) 01/18/18 06:11 Baso # (Auto) 0.02 K/mm3 (0.0-2.0) 01/18/18 06:11 Sodium 137 mmol/L (132-148) 01/18/18 06:11 Potassium 3.7 mmol/L (3.6-5.0) 01/18/18 06:11 Chloride 105 mmol/L (98-107) 01/18/18 06:11 Carbon Dioxide 26 mmol/L (21-33) 01/18/18 06:11 Anion Gap 9 (10-20) L 01/18/18 06:11 BUN 11 mg/dL (7-21) 01/18/18 06:11 Creatinine 0.9 mg/dl (0.8-1.5) 01/18/18 06:11 Est GFR ( Amer) > 60 01/18/18 06:11 Est GFR (Non-Af Amer) > 60 01/18/18 06:11 POC Glucose (mg/dL) 151 mg/dL (65-110) H 01/18/18 16:30 Random Glucose 133 mg/dL (70-110) H 01/18/18 06:11 Calcium 8.1 mg/dL (8.4-10.5) L 01/18/18 06:11 Phosphorus 3.6 mg/dL (2.5-4.5) 01/16/18 06:35 Magnesium 1.7 mg/dL (1.7-2.2) 01/16/18 06:35 Total Bilirubin 0.6 mg/dL (0.2-1.3) 01/18/18 06:11 AST 29 U/L (17-59) 01/18/18 06:11 ALT 27 U/L (7-56) 01/18/18 06:11 Alkaline Phosphatase 95 U/L (38-126) 01/18/18 06:11 Total Protein 5.4 g/dL (5.8-8.3) L 01/18/18 06:11 Albumin 2.7 g/dL (3.0-4.8) L 01/18/18 06:11 Globulin 2.7 gm/dL 01/18/18 06:11 Albumin/Globulin Ratio 1.0 (1.1-1.8) L 01/18/18 06:11 - Hospital Course Hospital Course: 77 year old male with a past medical history significant for stage IV mantle cell lymphoma (quiescence), lung cancer s/p wedge resection, hypoglobulinemia, CAD s/p stent placement, DM2, HTN, COPD, and perforated sigmoid diverticulitis s/p Milli procedure who presented with abdominal pain. After patient was medically optimized and approved, he was discharged to the TCU for further physical rehabilitation. Once patient was suitable for discharge, he was discharged home with instructions as written below. He was treated for the following assessments as described below during his admission: 1. S/P Colostomy Reversal -EGD/CSPY report noted -Percocet PRN for pain control -Strict I/O's, OOB to chair and IS -GI and Surgery consulted, all recommendations appreciated 2. Elevated Troponins -Likely secondary to type II [place], per cardio -S/P heparin gtt -PTCA with stents placed -Cardiology and Nephrology consulted, all recommendations appreciated 3. Intermittent AMS -CT Head without contrast showed no acute intracranial abnormalities -CTA head and neck unremarkable -Neurology consulted, all recommendations appreciated 4. Normocytic Anemia -H/H stable -CT abdomen/pelvis without contrast showing no intra-abdominal and/or retroperitoneal hemorrhage -S/P two units of pRBC's -Continue to monitor with daily CBC's 5. History of CAD -ASA, Plavix and Lopressor -Cardiology consulted, all recommendations appreciated 6. History of COPD -Duonebs -Singulair 7. History of BPH -Rapaflo and Oxybutynin 8. History of DM2 -SSI-Low and Accuchecks ACHS - Date & Time of H&P Date of H&P: 12/30/17 Time of H&P: 17:31 Discharge Exam - Head Exam Head Exam: NORMAL INSPECTION - Eye Exam Eye Exam: EOMI, Normal appearance - ENT Exam ENT Exam: Mucous Membranes Moist - Neck Exam Neck exam: Full Rom, Normal Inspection - Respiratory Exam Respiratory Exam: Clear to PA & Lateral, NORMAL BREATHING PATTERN, UNREMARKABLE - Cardiovascular Exam Cardiovascular Exam: REGULAR RHYTHM - GI/Abdominal Exam GI & Abdominal Exam: Normal Bowel Sounds, Unremarkable - Extremities Exam Extremities exam: normal inspection - Neurological Exam Neurological exam: Alert, Normal Gait, Oriented x3 - Psychiatric Exam Psychiatric exam: Normal Affect, Normal Mood - Skin Skin Exam: Dry, Intact, Normal Color, Warm Discharge Plan - Discharge Medications Prescriptions: Aluminum Hydroxide Gel [Amphogel] 320 mg PO PRN PRN #20 ml PRN Reason: Nausea/Vomiting - Follow Up Plan Condition: GOOD Disposition: HOME/ ROUTINE Instructions: Acute Abdominal Pain (DC), Acute Abdominal Pain (GEN), Hypertension (DC), Hypertension (GEN) Additional Instructions: Please follow up with your PMD within one to two weeks for post discharge follow up. Please take all medications as prescribed. You have been started on potassium supplementation. Please take this daily as prescribed. If your symptoms return, please seek emergency medical attention immediately. Referrals: Alie Myers MD [Staff Provider] -
--- NOTE | 2018-01-18 19:40 | PN ---
DATE: 01/18/2018 PULMONARY PROGRESS NOTE REFERRING PHYSICIAN: Ted Santoyo MD SUBJECTIVE: He is out of bed to chair, getting ready to have a lunch. Night was unremarkable. Slept well. Has a two bowel movement. Short of breath with exertion. No cough. No sputum production. No chest pain. Mild abdominal pain. No leg pain or leg swelling. OBJECTIVE: GENERAL: In no acute distress. VITAL SIGNS: Temperature is 98, heart rate is 89, respiratory rate is 16, blood pressure 91/57, and pulse ox 97% on room air. HEENT: Small oral cavity. Crowded airway. NECK: Supple. No JVD. LUNGS: Have a fair airflow. HEART: S1 and S2. ABDOMEN: Soft, nontender, and nondistended. Incision site looks okay. EXTREMITIES: There is no edema. NEUROLOGIC: Awake, alert and follows simple command. MEDICATIONS: He is on aluminum hydroxide p.r.n. basis, oxybutynin 5 mg at bedtime, Ecotrin 81 mg daily, insulin coverage, Lasix 20 mg daily, Lipitor 20 mg daily, metoprolol tartrate mg in the night and 25 mg in the morning, Plavix 75 mg daily, potassium orally 20 mEq daily, Protonix 40 mg daily, Ranexa 5 mg twice a day, Singulair 10 mg daily, Tylenol p.r.n., Xopenex , Zetia 10 mg daily, and Zofran 4 mg every 8 hours p.r.n. LABORATORY DATA: Shows hemoglobin 10, hematocrit 29.9, WBC 5.6, and platelet is 235,000. Sodium 137, potassium 3.7, chloride 105, bicarbonate is 26, BUN 11, creatinine 0.9, glucose 133, and calcium is 8.1. AST is 29, ALT 27, and alk phos is 95. Albumin is 2.7. Stool for C. diff sent today is negative. IMPRESSION AND PLAN: Status post laparotomy with reversal of colostomy; history of visceral perforation; non-Q-wave myocardial infarction end up with coronary stent; history of lung cancer, requiring wedge resection; also history of mantle cell lymphoma; diabetes; hypertension; activities of daily living dysfunction; and may have sleep apnea syndrome. Continue bronchodilator. Keep head at 45 degrees. Pain management. Gastric prophylaxis and deep venous thrombosis prophylaxis. Fall precaution. We will recommend PFT and sleep study upon discharge as outpatient. Thank you and we will follow with you. Thanh Duffy MD
[2018-01-18] MEDS ORDERED: Sodium Chloride 0.9% 500 ML IV STA (21:58)
[2018-01-18] MEDS ORDERED: Vancomycin 1gm in NS 250ml 1 GM/250 ML BAG IVPB STA (22:38)
[2018-01-18 23:24] LABS: VENOUS BLOOD GAS BASE EXCESS 1.3 mmol/L (0.0-2.0); VENOUS BLOOD GAS PO2 35 mm/Hg (30-55); VENOUS BLOOD PH 7.45 (7.32-7.43)
[2018-01-18] MEDS: MEROPENEM 500 MG in NS 500 MG/50 ML BAG IVPB SCH (23:30)
[2018-01-19] MEDS: MEROPENEM 500 MG in NS 500 MG/50 ML BAG IVPB SCH ×3 (06:06→21:41)
[2018-01-19] MEDS: Pantoprazole 40 mg EC Tab PO SCH (06:07)
--- NOTE | 2018-01-19 06:09 | PN ---
DATE: 01/18/2018 SUBJECTIVE: This patient was seen and evaluated earlier today. Discussed with the patient's who is also a hospitalist. The patient did have episodes of loose bowel movements, small amount; the patient is very concerned about the frequency of the bowel movement. The patient had status post reversal of the colostomy done; had complicated postoperative course, now is in TCU for deconditioning. The patient had episodes of diarrhea postoperatively. Stool for C. diff is negative. The patient was empirically treated with a short course of Flagyl. The patient showed some good improvement, now has diarrhea. PHYSICAL EXAMINATION: VITAL SIGNS: Stable. Temperature 98.8, blood pressure is 108/66, respirations 18, O2 sat is 97%. HEENT: Atraumatic, anicteric. NECK: Supple. HEART: S1 and S2 heard. LUNGS: Bilateral air entry present. ABDOMEN: Soft. Surgical scar noticed. EXTREMITIES: No cyanosis, no clubbing. NEUROLOGIC: Alert, oriented. Moves all 4 extremities. LABORATORY DATA: Hemoglobin 10, hematocrit 29.9, WBC 5.6, platelets 235,000. Chemistry is essentially unremarkable except calcium 8.7, albumin 2.7. IMPRESSION: This 77-year-old patient admitted who had a recent status post reversal of the colostomy now has episodes of loose bowel movements and postoperative change. The patient is not on any antibiotics. Stool for Clostridium difficile has been negative. this patient and symptomatic management who has had a short course of p.r.n. dose of Amphojel, short course. Continue to closely follow up her care and suggest further management. Discussed with Dr. Marques and also with Dr. Myers. Lakisha Casiano MD
[2018-01-19] MEDS: Insulin Reg-LOW-Coverage SC SCH ×4 (07:00→22:18)
[2018-01-19] MEDS: Levalbuterol 0.63 MG/3 ML Inhal Soln UD IH SCH ×3 (08:29→21:20)
[2018-01-19] MEDS: Non Formulary Medication (Ranolazine [Ranexa] 500 MG) PO SCH ×3 (09:18→17:44)
[2018-01-19] MEDS: Potassium Chloride 20 mEq/15 ml LIQ UD PO SCH (09:18)
--- NOTE | 2018-01-19 10:33 | RAD ---
HISTORY: chills/ post ob COMPARISON: Chest x-ray performed 01/11/18 TECHNIQUE: Chest, one view. FINDINGS: Right-sided MediPort extends to the cavoatrial junction. LUNGS: No focal consolidation. Please note that chest x-ray has limited sensitivity for the detection of pulmonary masses. PLEURA: No significant pleural effusion identified. No definite pneumothorax . CARDIOVASCULAR: Borderline cardiomegaly. Atherosclerotic calcification of the aorta. OSSEOUS STRUCTURES: Degenerative changes of the spine. VISUALIZED UPPER ABDOMEN: Unremarkable. OTHER FINDINGS: None. IMPRESSION: Right-sided MediPort.
--- NOTE | 2018-01-19 11:30 | CT ---
PROCEDURE: CT Abdomen and Pelvis without Oral or IV contrast. HISTORY: chills/ post op COMPARISON: CT abdomen and pelvis without contrast performed 01/04/18 TECHNIQUE: Contiguous axial images of the abdomen and pelvis. No oral or IV contrast administered. Coronal and Sagittal reformats generated and reviewed. Radiation dose: Total exam DLP = 672.1 mGy-cm. This CT exam was performed using one or more of the following dose reduction techniques: Automated exposure control, adjustment of the mA and/or kV according to patient size, and/or use of iterative reconstruction technique. FINDINGS: There is limited evaluation of the solid organs without the administration of IV contrast. LOWER THORAX: Right greater than left basilar atelectasis. No visible pleural effusion or pneumothorax. Dense coronary artery calcifications. LIVER: Unremarkable unenhanced appearance. . GALLBLADDER AND BILE DUCTS: Unremarkable unenhanced appearance. PANCREAS: Fatty atrophy of the pancreas. SPLEEN: Unremarkable unenhanced appearance. ADRENALS: Unremarkable unenhanced appearance. KIDNEYS AND URETERS: No hydronephrosis or obstructing renal calculus. Mildly dilated left extrarenal pelvis. BLADDER: The urinary bladder appears unremarkable. REPRODUCTIVE: Heterogeneous prostate gland. APPENDIX: The appendix appears within normal limits of caliber. No secondary signs of acute appendicitis. BOWEL: The stomach is nondistended. Lack of oral contrast limits evaluation for bowel pathology. Diverticulosis without CT evidence of acute diverticulitis. Moderate constipation. Anastomosis of the distal sigmoid colon. Soft tissue swelling/inflammatory changes at site of prior colostomy. Wall thickening of the rectum as well as at the and anastomosis site of unclear significance. Presacral fluid/phlegmon measuring approximately 7.5 x 5.3 cm. Abscess not excluded. Correlate clinically. LYMPH NODES: No bulky lymphadenopathy identified. VASCULATURE: Dense atherosclerotic calcifications of the aorta. No aortic aneurysm. BONES: Degenerative changes. OTHER FINDINGS: Surgical changes anterior abdominal wall. Left inguinal hernia containing portions of the urinary bladder. IMPRESSION: Presacral fluid/phlegmon formation. Abscess not excluded. Correlate clinically. Anastomosis of the distal sigmoid colon. Soft tissue swelling/inflammatory changes at site of prior colostomy. Wall thickening of the rectum as well as at the and anastomosis site of unclear significance. Diverticulosis without CT evidence of acute diverticulitis. Moderate constipation. Left inguinal hernia containing portions of the urinary bladder. Additional findings as above. Preliminary impression was provided by [employer]
--- NOTE | 2018-01-19 11:48 | CP.PCM.PN ---
Subjective - Date & Time of Evaluation Date of Evaluation: 01/19/18 Time of Evaluation: 09:30 - Subjective Subjective: Comfortable on a chair, no fevers. Noted events last night and discussed with Dr. Myers - had episode of chills, septic work up ordered, Vanco and Merrem empirically started. Objective - Vital Signs/Intake and Output Vital Signs (last 24 hours): Temp Pulse Resp BP Pulse Ox 97.8 F 89 18 95/59 L 98 01/17/18 16:00 01/18/18 12:00 01/17/18 16:00 01/18/18 12:00 01/17/18 16:00 Intake and Output: 01/18/18 01/18/18 06:59 18:59 Intake Total 420 Output Total 550 Balance -130 - Medications Medications: Current Medications Acetaminophen (Tylenol 325mg Tab) 650 mg PO Q6H PRN PRN Reason: Pain, Mild (1-3) Last Admin: 01/11/18 19:06 Dose: 650 mg Aspirin (Ecotrin) 81 mg PO 0800 [facility]; Protocol Last Admin: 01/18/18 08:45 Dose: 81 mg Atorvastatin Calcium (Lipitor) 20 mg PO QPM [facility]; Protocol Last Admin: 01/17/18 17:23 Dose: 20 mg Clopidogrel Bisulfate (Plavix) 75 mg PO DAILY [facility]; Protocol Last Admin: 01/18/18 12:01 Dose: 75 mg Ezetimibe (Zetia) 10 mg PO DAILY [facility]; Protocol Last Admin: 01/18/18 12:03 Dose: 10 mg Furosemide (Lasix) 20 mg PO DAILY [facility]; Protocol Last Admin: 01/18/18 11:59 Dose: Not Given Insulin Human Regular (Humulin R Low) 0 units SC ACHS [facility]; Protocol Last Admin: 01/18/18 12:47 Dose: 3 unit Levalbuterol HCl (Xopenex) 0.63 mg IH TIDRESP [facility]; Protocol Last Admin: 01/18/18 13:04 Dose: 0.63 mg Metoprolol Tartrate (Lopressor) 12.5 mg PO QPM [facility]; Protocol Last Admin: 01/16/18 17:23 Dose: 12.5 mg Metoprolol Tartrate (Lopressor) 25 mg PO 0800 [facility]; Protocol Last Admin: 01/18/18 12:00 Dose: Not Given Montelukast Sodium (Singulair) 10 mg PO QPM [facility]; Protocol Last Admin: 01/17/18 17:24 Dose: 10 mg Non-Formulary Medication (Silodosin [Rapaflo]) 8 mg PO QPM [facility] Last Admin: 01/17/18 17:24 Dose: 8 mg Non-Formulary Medication (Ranolazine [Ranexa]) 500 mg PO BID [facility] Last Admin: 01/18/18 12:03 Dose: 500 mg Ondansetron HCl (Zofran Odt) 4 mg PO Q8H PRN; Protocol PRN Reason: Nausea/Vomiting Last Admin: 01/14/18 12:54 Dose: 4 mg Oxybutynin Chloride (Ditropan Tab) 5 mg PO HS [facility]; Protocol Last Admin: 01/17/18 21:59 Dose: 5 mg Pantoprazole Sodium (Protonix Ec Tab) 40 mg PO 0600 [facility]; Protocol Last Admin: 01/18/18 06:08 Dose: 40 mg Potassium Chloride (Potassium Chloride Oral Soln) 20 meq PO DAILY [facility] Last Admin: 01/18/18 12:02 Dose: 20 meq - Labs Labs: 01/18/18 06:11 01/18/18 06:11 - Constitutional Appears: Chronically Ill - Respiratory Exam Respiratory Exam: Decreased Breath Sounds - Cardiovascular Exam Cardiovascular Exam: +S1, +S2 - GI/Abdominal Exam GI & Abdominal Exam: Soft. absent: Tenderness Assessment and Plan - Assessment and Plan (Free Text) Plan: Assessment S/P SIRS with VDRF due to colostomy reversal new onset SIRS, R/O Sepsis loose bowel movement, C. diff test is negaitve, and clinically improved S/P severe sepsis S/P acute renal failure S/P ventilator-dependent respiratory failure due to acute perforated sigmoid colon with associated diverticulitis S/P exploratory laparotomy, sigmoidectomy and colostomy history of sepsis due to acute bronchitis, with systemic viral illness history of UTI with E. 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 Myers - patient has been started on Vancomycin, Merrem pending blood, urine cx; reviewed CT A/P which shows pre-sacral fluid which is probably post-op changes, and other post-op changes noted will monitor clinically
[2018-01-19] MEDS: SILODOSIN 8 MG PO SCH (17:34)
[2018-01-19] MEDS: Aluminum Hydrox Gel 320 mg/5 ml Susp(480 ml) PO PRN (18:12)
--- NOTE | 2018-01-19 22:21 | PN ---
DATE: 01/19/2018 PULMONARY PROGRESS NOTE REFERRING PHYSICIAN: Dr. Ted Santoyo SUBJECTIVE: The patient is sitting side of the bed. Night was unremarkable. Feels better, ambulating in the room. No headache. No rhinitis. No cough. No sputum production. Mild abdominal pain. Still complaining about bowel movement. No leg pain or leg swelling. OBJECTIVE: VITAL SIGNS: Temperature is 98, heart rate 98, respiratory rate is 20, blood pressure 121/69, pulse of 97% on 2 liters nasal cannula. HEENT: Moist mucous membranes. Small oral cavity. NECK: Supple. No JVD. LUNGS: Have a fair airflow with rhonchi. HEART: S1 and S2. ABDOMEN: Soft. Incision site is healing well. EXTREMITIES: There is no edema. NEUROLOGIC: Awake, alert and follows simple command. MEDICATIONS: He is on Ditropan 5 mg at bedtime, Ecotrin 81 mg daily, insulin coverage, Lasix 20 mg daily, Lipitor 20 mg daily, metoprolol tartrate 12.5 mg daily in the evening and 25 mg at night. Also, on meropenem 500 mg every 8 hours, Plavix 75 mg daily, also potassium supplement, Protonix 40 mg daily, Ranexa 500 mg twice a day, Singulair 10 mg daily, Tylenol p.r.n., Xopenex inhale every 8 hours, Zetia 10 mg daily, Zofran p.r.n. basis. LABORATORY DATA: Shows blood sugar 125. Microbiology stool for C. diff been negative. IMPRESSION AND PLAN: Status post laparotomy, reversal of colostomy, history of visceral perforation status post non-Q-wave myocardial infarction with coronary stents, history of lung cancer requiring wedge resection , mantle cell lymphoma, diabetes, hypertension, activities of daily living dysfunction, may have sleep apnea syndrome. Pulmonary point of view, doing well. Seen by Infectious Disease and started on broad-spectrum antibiotics covering healthcare-associated organism. Pulmonary point, continue bronchodilator, gastric prophylaxis, deep venous thrombosis prophylaxis. Fall precaution. Thank you and we will follow with you. Thanh Duffy MD
[2018-01-20] MEDS: Pantoprazole 40 mg EC Tab PO SCH (06:18)
[2018-01-20] MEDS: MEROPENEM 500 MG in NS 500 MG/50 ML BAG IVPB SCH (06:18)
[2018-01-20] MEDS: Levalbuterol 0.63 MG/3 ML Inhal Soln UD IH SCH ×3 (07:27→19:30)
[2018-01-20] MEDS ORDERED: Vancomycin 1gm in NS 250ml 1 GM/250 ML BAG IVPB SCH ×2 (07:30→22:00)
[2018-01-20] MEDS: Potassium Chloride 20 mEq/15 ml LIQ UD PO SCH (09:28)
[2018-01-20] MEDS: Non Formulary Medication (Ranolazine [Ranexa] 500 MG) PO SCH ×2 (09:28→17:56)
[2018-01-20] MEDS: Insulin Reg-LOW-Coverage SC SCH ×4 (09:29→21:10)
[2018-01-20] MEDS: Meropenem IV 1 gm in NS 1 GM/50 ML BAG IVPB SCH ×3 (09:31→21:11)
--- NOTE | 2018-01-20 12:06 | CP.PCM.PN ---
Subjective - Date & Time of Evaluation Date of Evaluation: 01/20/18 Time of Evaluation: 10:15 - Subjective Subjective: Had fever again this morning, as well some chills, on nausea, no diarrhea, dry cough. Objective - Vital Signs/Intake and Output Vital Signs (last 24 hours): Temp Pulse Resp BP Pulse Ox 98.8 F 65 16 91/57 L 97 01/18/18 16:00 01/18/18 17:33 01/18/18 16:00 01/18/18 17:33 01/18/18 16:00 Intake and Output: 01/19/18 01/19/18 06:59 18:59 Intake Total 360 Output Total 550 Balance -190 - Medications Medications: Current Medications Acetaminophen (Tylenol 325mg Tab) 650 mg PO Q6H PRN PRN Reason: Pain, Mild (1-3) Last Admin: 01/19/18 09:22 Dose: 650 mg Aluminum Hydroxide (Aluminum Hydroxide Gel 320mg /5ml Susp (Bulk)) 30 ml PO Q4H PRN PRN Reason: Indigestion Last Admin: 01/18/18 17:25 Dose: 30 ml Aspirin (Ecotrin) 81 mg PO 0800 [facility]; Protocol Last Admin: 01/19/18 09:00 Dose: 81 mg Atorvastatin Calcium (Lipitor) 20 mg PO QPM [facility]; Protocol Last Admin: 01/18/18 17:29 Dose: 20 mg Clopidogrel Bisulfate (Plavix) 75 mg PO DAILY [facility]; Protocol Last Admin: 01/19/18 09:18 Dose: 75 mg Ezetimibe (Zetia) 10 mg PO DAILY [facility]; Protocol Last Admin: 01/19/18 09:20 Dose: 10 mg Furosemide (Lasix) 20 mg PO DAILY [facility]; Protocol Last Admin: 01/18/18 11:59 Dose: Not Given Meropenem/Sodium Chloride (Merrem Iv 500 Mg/Ns 50 Ml) 500 mg in 50 mls @ 100 ml s/hr IVPB Q8 [facility]; Protocol Last Admin: 01/19/18 06:06 Dose: 100 mls/hr Insulin Human Regular (Humulin R Low) 0 units SC ACHS [facility]; Protocol Last Admin: 01/19/18 07:00 Dose: 2 unit Levalbuterol HCl (Xopenex) 0.63 mg IH TIDRESP [facility]; Protocol Last Admin: 01/19/18 08:29 Dose: 0.63 mg Metoprolol Tartrate (Lopressor) 12.5 mg PO QPM [facility]; Protocol Last Admin: 01/18/18 17:33 Dose: Not Given Metoprolol Tartrate (Lopressor) 25 mg PO 0800 [facility]; Protocol Last Admin: 01/18/18 12:00 Dose: Not Given Montelukast Sodium (Singulair) 10 mg PO QPM [facility]; Protocol Last Admin: 01/18/18 17:36 Dose: 10 mg Non-Formulary Medication (Silodosin [Rapaflo]) 8 mg PO QPM [facility] Last Admin: 01/18/18 17:35 Dose: 8 mg Non-Formulary Medication (Ranolazine [Ranexa]) 500 mg PO BID [facility] Last Admin: 01/19/18 09:18 Dose: 500 mg Ondansetron HCl (Zofran Odt) 4 mg PO Q8H PRN; Protocol PRN Reason: Nausea/Vomiting Last Admin: 01/14/18 12:54 Dose: 4 mg Oxybutynin Chloride (Ditropan Tab) 5 mg PO HS [facility]; Protocol Last Admin: 01/18/18 22:05 Dose: 5 mg Pantoprazole Sodium (Protonix Ec Tab) 40 mg PO 0600 [facility]; Protocol Last Admin: 01/19/18 06:07 Dose: 40 mg Potassium Chloride (Potassium Chloride Oral Soln) 20 meq PO DAILY [facility] Last Admin: 01/19/18 09:18 Dose: 20 meq - Labs Labs: 01/18/18 06:11 01/18/18 06:11 - Constitutional Appears: Chronically Ill - Head Exam Head Exam: NORMAL INSPECTION - Respiratory Exam Respiratory Exam: Decreased Breath Sounds - Cardiovascular Exam Cardiovascular Exam: +S1, +S2 - GI/Abdominal Exam GI & Abdominal Exam: Soft. absent: Tenderness Assessment and Plan - Assessment and Plan (Free Text) Plan: Assessment S/P SIRS with VDRF due to colostomy reversal new onset SIRS, R/O Sepsis, srouce nto yet determined loose bowel movement, C. diff test is negaitve, and clinically improved S/P severe sepsis S/P acute renal failure S/P ventilator-dependent respiratory failure due to acute perforated sigmoid colon with associated diverticulitis S/P exploratory laparotomy, sigmoidectomy and colostomy history of sepsis due to acute bronchitis, with systemic viral illness history of UTI with E. 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 Myers today - will continue Vancomycin, Merrem and repeat blood, urine cx and CXR; reviewed CT A/P which shows pre-sacral fluid which is probably post-op changes, and other post-op changes noted; repeat stool for C. diff. is negative will continue to monitor clinically
--- NOTE | 2018-01-20 12:52 | RAD ---
HISTORY: rule out pneumonia COMPARISON: Chest x-ray performed 01/18/18 TECHNIQUE: Chest, one view. FINDINGS: Right-sided MediPort extends to the SVC. LUNGS: No focal consolidation. Please note that chest x-ray has limited sensitivity for the detection of pulmonary masses. PLEURA: No significant pleural effusion identified. No definite pneumothorax . CARDIOVASCULAR: Borderline cardiomegaly. Atherosclerotic calcification present. OSSEOUS STRUCTURES: Degenerative changes. VISUALIZED UPPER ABDOMEN: Mild elevation of the right hemidiaphragm. OTHER FINDINGS: None. IMPRESSION: Right-sided MediPort.
[2018-01-20 16:26] VITALS: RESP 18
[2018-01-20] MEDS: SILODOSIN 8 MG PO SCH (17:57)
--- NOTE | 2018-01-20 23:00 | PN ---
DATE: 01/20/2018 PULMONARY PROGRESS NOTE REFERRING PHYSICIAN: Ted Santoyo MD SUBJECTIVE: He is sitting in the chair. Night was unremarkable. Doing well in therapy. Has a good appetite today. No shortness of breath. No chest pain. Mild abdominal discomfort. No leg pain or leg swelling. OBJECTIVE: GENERAL: In no acute distress. VITAL SIGNS: Has a T-max of 101, heart rate is 98, respiratory rate is 20, blood pressure 98/62, pulse ox 97% on room air. HEENT: Moist mucous membranes. Small oral cavity. Crowded airway. NECK: Supple. No JVD. LUNGS: Fair airflow, rhonchi. HEART: S1 and S2. ABDOMEN: Soft, nontender, nondistended. Incision site looks okay. EXTREMITIES: There is no edema. NEUROLOGIC: Awake and alert. Follows simple command. MEDICATIONS: He is on Ditropan 5 mg at bedtime, Ecotrin 81 mg daily, insulin coverage, Lasix 20 mg daily, Lipitor 20 mg daily, metoprolol tartrate 12.5 mg daily, Lopressor 25 mg in the morning and 12.5 mg in , meropenem started 1 g IV every 8 hours, Plavix 75 mg daily, potassium supplement, Protonix 40 mg daily, Ranexa 500 mg twice a day, Singulair 10 mg daily, Tylenol p.r.n., vancomycin 1 g IV every 12 hours, Xopenex 0.63 mg 3 times daily, Zetia 10 mg daily, and Zofran p.r.n. basis. LABORATORY DATA: Reviewed. Blood sugar this afternoon 175. Procalcitonin is 0.53. Microbiology, blood cultures are negative. Chest x-ray done today shows right-sided Port-A-Cath, otherwise unremarkable. No focal infiltrate reported. IMPRESSION AND PLAN: Status post laparotomy, reversal of colostomy, history of visceral perforation, non-Q myocardial infarction requiring catheterization, has two stents placed in. History of lung cancer requiring wedge resection, mental cell lymphoma, diabetes, hypertension, activities of daily living dysfunction, may have sleep apnea syndrome. Developed new fever, high procalcitonin. Started on broad-spectrum antibiotics covering healthcare-associated organisms. Pulmonary point of view, doing well. Continue bronchodilator, aspiration precaution, gastric prophylaxis, deep venous thrombosis prophylaxis. Thank you, and we will follow with you. Thanh Duffy MD [facility] # [id number]
--- NOTE | 2018-01-21 04:46 | PN ---
DATE: 01/20/2018 ONCOLOGY PROGRESS NOTE LOCATION: Patient is in room [facility], room# 315, bed 1. SUBJECTIVE: Patient is sitting in the chair. Night was unremarkable. He had no other further fevers or chills. He is doing well in therapy. He has good appetite. No shortness of breath. No chest pain. Mild abdominal discomfort. Bowels are moving better and it appeared to be better controlled with the . No leg pain. No leg swelling. PHYSICAL EXAMINATION: VITAL SIGNS: Stable. T-max was 101, heart rate was 98, respirations 20, blood pressure 98/62, pulse ox was 97% on room air. HEENT: Head is normocephalic, atraumatic. Conjunctivae pale. Sclerae are anicteric. Pupils are equally reactive to light and accommodation. Examination of the oropharynx reveals no oropharyngeal lesions. NECK: Supple. There is no adenopathy. No jugular venous distention noted. LUNGS: Clear to percussion and auscultation. HEART: Reveals PMI in the 5th intercostal space inside the midclavicular line. S1 and S2 are normal. No gallop or murmur is heard. ABDOMEN: Soft, nontender, nondistended. Incision looks okay and dry. EXTREMITIES: Reveals no cyanosis, clubbing, or edema. NEUROLOGIC: Reveals that functions to be normal, and no focal deficits are noted. MEDICATIONS: Reviewed and they are unchanged. Patient ran out of his Ranexa, but his has brought the medications for him. So, he is going to get the 2 doses today. He is on Ranexa 500 twice a day. LABORATORY DATA: Reviewed except for the blood sugar being slightly elevated. Procalcitonin level was 0.53. Blood cultures were negative so far. Chest x-ray showed a right-sided Port-A-Cath, otherwise, unremarkable. There was no evidence of infiltrate. Patient is still on IV antibiotics with vancomycin and Merrem because of the fever and chills that he had the other night. ASSESSMENT NOTES AND PLAN: Detailed discussion with the patient. Spoke to the . Spoke to Dr. Marshall. They are going to continue the antibiotics for one more day and if the cultures are all negative, we will make a decision on Sunday for stopping all the antibiotics and letting the patient be discharged. Patient is status post laparotomy; reversal of colostomy; history of visceral perforation; non-Q myocardial infarction, requiring catheterization, has two stents placed in the right coronary artery; history of lung cancer, requiring wedge resection; history of stage IV mantle cell lymphoma, currently quiescent; diabetes; hypertension; activities of daily living dysfunction; may have sleep apnea syndrome; now developed a new fever, for which he has been worked up and so far tests have come back as negative. Patient will continue his current medications; make a decision by tomorrow about early discharge. In the meantime, we will continue prophylaxis for deep venous thrombosis and prophylaxis for aspiration precautions and gastric prophylaxis as well. Routine post-examination instructions are given to the patient. Time spent with the patient is greater than 45 minutes, out of which more than 50% of the time was [id number] interaction. Please make a note, this is a complex patient with multiple comorbid medical issues. Alie Myers MD
[2018-01-21] MEDS: Pantoprazole 40 mg EC Tab PO SCH (05:41)
[2018-01-21] MEDS: Meropenem IV 1 gm in NS 1 GM/50 ML BAG IVPB SCH ×2 (05:41→15:08)
[2018-01-21] MEDS ORDERED: Vancomycin 1gm in NS 250ml 1 GM/250 ML BAG IVPB SCH (06:00)
[2018-01-21] MEDS: Insulin Reg-LOW-Coverage SC SCH ×3 (07:05→17:05)
[2018-01-21] MEDS: Levalbuterol 0.63 MG/3 ML Inhal Soln UD IH SCH ×3 (07:14→19:26)
[2018-01-21 07:36] LABS: URINE BILIRUBIN NEGATIVE (NEGATIVE); URINE BLOOD NEGATIVE (NEGATIVE); URINE GLUCOSE (UA) NEGATIVE (NEGATIVE); URINE LEUKOCYTE ESTERASE NEGATIVE Leu/uL (NEGATIVE); URINE PROTEIN 30 mg/dL (<30 mg/dL); URINE UROBILINOGEN 0.2 E.U./dL (<1 E.U./dL)
[2018-01-21 07:50] LABS: URINE APPEARANCE CLEAR (CLEAR); URINE COLOR YELLOW (YELLOW)
[2018-01-21 08:01] LABS: URINE RBC 0 - 2 /hpf (0-2)
[2018-01-21 08:02] LABS: URINE BACTERIA SMALL (NEG)
--- NOTE | 2018-01-21 08:32 | PN ---
DATE: 01/19/2018 LOCATION: The patient is in TCU 315, bed 1. REFERRING PHYSICIAN: Ted Santoyo MD SUBJECTIVE: The patient was seen sitting out of bed in the chair. Night was unremarkable. The patient had earlier on during the night fevers and chills. The patient was seen by the hospitalist and evaluated by the house doctor. I was called in the middle of the night with these complaints. The patient is set up for CT of the abdomen and chest x-ray. Blood cultures were drawn. Procalcitonin was drawn. The patient was given one dose of vancomycin and one dose of Merrem, and the patient was seen earlier during the day by Dr. Marshall, infectious disease specialist, and has been started on IV antibiotics again. Subjectively, the patient is sitting out of bed, feeling better this morning, ambulating in the room, no headaches, no rhinitis, no cough, no sputum production, mild abdominal pain, and still complaining of the bowel moments that has been on the ____. No leg pain or leg swelling. OBJECTIVE: VITAL SIGNS: Stable, T-max is 98.4, heart rate is 98, respirations are 20, blood pressure 121/69, and pulse ox is 97% on 2 L of nasal oxygen. HEENT: Head is normocephalic and atraumatic. Conjunctivae pale. Sclerae are anicteric. Pupils are equally reactive to light and accommodation. Examination of the oropharynx reveals the patient to be edentulous. No oral lesions are noted. Tongue is moist. NECK: Supple. There is no adenopathy. No jugular venous distension noted. LUNGS: Reveal good air flow with minimal rhonchi. CARDIOVASCULAR: Examination of the heart reveals S1, S2 are normal. No gallop or murmur is heard. ABDOMEN: Soft. The patient's site is healing well. No rebound, rigidity, or guarding is noted. EXTREMITIES: Reveal no cyanosis, clubbing, or edema. NEUROLOGIC: Higher functions seem to be normal. No focal deficits are noted. MEDICATIONS: The patient's medications were reviewed, is on Ditropan 5 mg at bedtime, Ecotrin 81 mg daily, insulin coverage, Lasix 20 mg daily, Lipitor 20 mg daily, metoprolol tartrate 12.5 mg in the evening and 25 mg at night. The patient is on meropenem 500 mg every 8 hours, Plavix 75 mg daily, potassium supplements, Protonix 40 mg daily, Ranexa 500 mg twice a day, Singulair 10 mg daily, Tylenol p.r.n., Xopenex inhalation every 8 hours, Zetia 10 mg daily, and Zofran on a p.r.n basis. LABORATORY DATA: Reveals blood sugar of 125. C. difficile has been negative. ASSESSMENT: The patient is status post laparotomy with reversal of colostomy; history of subendocardial injury, status post right coronary artery stenting, history of visceral perforation. The patient had right coronary artery stenting. 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 Hypertension. Activities of daily living dysfunction. Sleep apnea syndrome. PLAN: The patient is going to continue the IV antibiotics for another period of 24 hours. We will check blood cultures and make appropriate decision. Spoke at length with the patient's and with details, spoke with the daughter as well. Spoke with Dr. Marshall. We will continue current medications and watch the patient carefully. Port site appears to be intact. It appears to be again explained to the patient in great detail. Continue DVT prophylaxis as well. Alie Myers MD
[2018-01-21] MEDS: Non Formulary Medication (Ranolazine [Ranexa] 500 MG) PO SCH ×2 (10:04→17:06)
[2018-01-21] MEDS: Potassium Chloride 20 mEq/15 ml LIQ UD PO SCH (10:04)
--- NOTE | 2018-01-21 12:56 | CP.PCM.PN ---
Subjective - Date & Time of Evaluation Date of Evaluation: 01/21/18 Time of Evaluation: 10:00 - Subjective Subjective: Comfortable, no cough, no fevers anymore, no dysuria. Objective - Vital Signs/Intake and Output Vital Signs (last 24 hours): Temp Pulse Resp BP Pulse Ox 101.5 F H 98 H 20 121/69 100 01/20/18 06:17 01/19/18 16:00 01/19/18 16:00 01/19/18 16:00 01/19/18 16:00 - Medications Medications: Current Medications Acetaminophen (Tylenol 325mg Tab) 650 mg PO Q6H PRN PRN Reason: Pain, Mild (1-3) Last Admin: 01/20/18 06:17 Dose: 650 mg Aluminum Hydroxide (Aluminum Hydroxide Gel 320mg /5ml Susp (Bulk)) 30 ml PO Q4H PRN PRN Reason: Indigestion Last Admin: 01/19/18 18:12 Dose: 30 ml Aspirin (Ecotrin) 81 mg PO 0800 [facility]; Protocol Last Admin: 01/20/18 09:29 Dose: 81 mg Atorvastatin Calcium (Lipitor) 20 mg PO QPM [facility]; Protocol Last Admin: 01/19/18 17:33 Dose: 20 mg Clopidogrel Bisulfate (Plavix) 75 mg PO DAILY [facility]; Protocol Last Admin: 01/20/18 09:29 Dose: 75 mg Ezetimibe (Zetia) 10 mg PO DAILY [facility]; Protocol Last Admin: 01/20/18 10:24 Dose: Not Given Furosemide (Lasix) 20 mg PO DAILY [facility]; Protocol Last Admin: 01/18/18 11:59 Dose: Not Given Meropenem (Merrem Iv 1 Gm Premix) 1 gm in 50 mls @ 100 mls/hr IVPB Q8 [facility]; Protocol Last Admin: 01/20/18 09:31 Dose: 100 mls/hr Vancomycin HCl (Vancomycin 1gm) 1 gm in 250 mls @ 167 mls/hr IVPB Q12H [facility]; Protocol Last Admin: 01/20/18 10:25 Dose: 167 mls/hr Insulin Human Regular (Humulin R Low) 0 units SC ACHS [facility]; Protocol Last Admin: 01/20/18 09:29 Dose: Not Given Levalbuterol HCl (Xopenex) 0.63 mg IH TIDRESP [facility]; Protocol Last Admin: 01/20/18 07:27 Dose: Not Given Metoprolol Tartrate (Lopressor) 12.5 mg PO QPM [facility]; Protocol Last Admin: 01/18/18 17:33 Dose: Not Given Metoprolol Tartrate (Lopressor) 25 mg PO 0800 [facility]; Protocol Last Admin: 01/18/18 12:00 Dose: Not Given Montelukast Sodium (Singulair) 10 mg PO QPM [facility]; Protocol Last Admin: 01/19/18 17:34 Dose: 10 mg Non-Formulary Medication (Silodosin [Rapaflo]) 8 mg PO QPM [facility] Last Admin: 01/19/18 17:34 Dose: 8 mg Non-Formulary Medication (Ranolazine [Ranexa]) 500 mg PO BID [facility] Last Admin: 01/20/18 09:28 Dose: Not Given Ondansetron HCl (Zofran Odt) 4 mg PO Q8H PRN; Protocol PRN Reason: Nausea/Vomiting Last Admin: 01/14/18 12:54 Dose: 4 mg Oxybutynin Chloride (Ditropan Tab) 5 mg PO HS [facility]; Protocol Last Admin: 01/19/18 21:41 Dose: 5 mg Pantoprazole Sodium (Protonix Ec Tab) 40 mg PO 0600 [facility]; Protocol Last Admin: 01/20/18 06:18 Dose: 40 mg Potassium Chloride (Potassium Chloride Oral Soln) 20 meq PO DAILY [facility] Last Admin: 01/20/18 09:28 Dose: 20 meq - Labs Labs: 01/18/18 06:11 01/18/18 06:11 - Constitutional Appears: Chronically Ill - Head Exam Head Exam: NORMAL INSPECTION - Respiratory Exam Respiratory Exam: Decreased Breath Sounds - Cardiovascular Exam Cardiovascular Exam: +S1, +S2 - GI/Abdominal Exam GI & Abdominal Exam: Soft. absent: Tenderness Assessment and Plan - Assessment and Plan (Free Text) Plan: Assessment S/P SIRS with VDRF due to colostomy reversal new onset SIRS, but no source of infection identified loose bowel movement, C. diff test is negaitve, and clinically improved S/P severe sepsis S/P acute renal failure S/P ventilator-dependent respiratory failure due to acute perforated sigmoid colon with associated diverticulitis S/P exploratory laparotomy, sigmoidectomy and colostomy history of sepsis due to acute bronchitis, with systemic viral illness history of UTI with E. 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 Myers today - on Vancomycin, Merrem but blood cx, urinalysis are negative for infection; CXR is also negative for infiltrates; reviewed CT A/P which shows pre-sacral fluid which is probably post-op changes, and other post-op changes noted; repeat stool for C. diff. is negative - july d/c antibiotics and observe - patient has no urinary symptoms
--- NOTE | 2018-01-21 14:26 | CP.PCM.DIS ---
Provider - Provider Date of Admission: 01/09/18 17:04 Attending physician: Ted Santoyo MD Consults: Cardio: Dr. Perez ID: Dr. Callahan Neurology: Dr. Oneal GI: Dr. Casiano Surgery: Dr. Pabon Pulm: Dr. Duffy Nephrology: Dr. Raman Time Spent in preparation of Discharge (in minutes): 45 Hospital Course - Lab Results Lab Results: Micro Results 01/20/18 09:00 Blood-Venous Blood Culture - Preliminary NO GROWTH AFTER 24 HOURS 01/20/18 08:30 Blood-Venous Blood Culture - Preliminary NO GROWTH AFTER 24 HOURS 01/18/18 23:12 Blood Blood Culture - Preliminary NO GROWTH AFTER 48 HOURS 01/18/18 06:16 Stool C. difficile Antigen & Toxins A,B - Final Most Recent Lab Values WBC 5.6 10^3/uL (4.5-11.0) 01/18/18 06:11 RBC 3.44 10^6/uL (3.5-6.1) L 01/18/18 06:11 Hgb 10.0 g/dL (14.0-18.0) L 01/18/18 06:11 Hct 29.9 % (42.0-52.0) L 01/18/18 06:11 MCV 86.9 fl (80.0-105.0) 01/18/18 06:11 MCH 29.1 pg (25.0-35.0) 01/18/18 06:11 MCHC 33.4 g/dl (31.0-37.0) 01/18/18 06:11 RDW 15.1 % (11.5-14.5) H 01/18/18 06:11 Plt Count 235 10^3/uL (120.0-450.0) 01/18/18 06:11 MPV 9.5 fl (7.0-11.0) 01/18/18 06:11 Gran % 62.3 % (50.0-68.0) 01/18/18 06:11 Lymph % (Auto) 24.6 % (22.0-35.0) 01/18/18 06:11 [place] % (Auto) 7.9 % (1.0-6.0) H 01/18/18 06:11 Eos % (Auto) 4.8 % (1.5-5.0) 01/18/18 06:11 Baso % (Auto) 0.4 % (0.0-3.0) 01/18/18 06:11 Gran # 3.49 (1.4-6.5) 01/18/18 06:11 Lymph # (Auto) 1.4 (1.2-3.4) 01/18/18 06:11 [place] # (Auto) 0.4 (0.1-0.6) 01/18/18 06:11 Eos # (Auto) 0.3 (0.0-0.7) 01/18/18 06:11 Baso # (Auto) 0.02 K/mm3 (0.0-2.0) 01/18/18 06:11 pO2 35 mm/Hg (30-55) 01/18/18 23:12 VBG pH 7.45 (7.32-7.43) H 01/18/18 23:12 VBG pCO2 36.0 (40-60) L 01/18/18 23:12 VBG HCO3 25.0 mmol/l (21-28) 01/18/18 23:12 VBG Total CO2 26.1 mmol.L (22-28) 01/18/18 23:12 VBG O2 Sat (Calc) 73.6 % (40-65) H 01/18/18 23:12 VBG Base Excess 1.3 mmol/L (0.0-2.0) 01/18/18 23:12 VBG Potassium 3.6 mmol/L (3.6-5.2) 01/18/18 23:12 Sodium 136.0 mmol/L (132-148) 01/18/18 23:12 Chloride 105.0 mmol/L (98-107) 01/18/18 23:12 Glucose 157 mg/dl (75-110) H 01/18/18 23:12 Lactate 1.3 mmol/L (0.7-2.1) 01/18/18 23:12 FiO2 21.0 % 01/18/18 23:12 Sodium 137 mmol/L (132-148) 01/18/18 06:11 Potassium 3.7 mmol/L (3.6-5.0) 01/18/18 06:11 Chloride 105 mmol/L (98-107) 01/18/18 06:11 Carbon Dioxide 26 mmol/L (21-33) 01/18/18 06:11 Anion Gap 9 (10-20) L 01/18/18 06:11 BUN 11 mg/dL (7-21) 01/18/18 06:11 Creatinine 0.9 mg/dl (0.8-1.5) 01/18/18 06:11 Est GFR ( Amer) > 60 01/18/18 06:11 Est GFR (Non-Af Amer) > 60 01/18/18 06:11 POC Glucose (mg/dL) 180 mg/dL (65-110) H 01/21/18 11:37 Random Glucose 133 mg/dL (70-110) H 01/18/18 06:11 Calcium 8.1 mg/dL (8.4-10.5) L 01/18/18 06:11 Phosphorus 3.6 mg/dL (2.5-4.5) 01/16/18 06:35 Magnesium 1.7 mg/dL (1.7-2.2) 01/16/18 06:35 Total Bilirubin 0.6 mg/dL (0.2-1.3) 01/18/18 06:11 AST 29 U/L (17-59) 01/18/18 06:11 ALT 27 U/L (7-56) 01/18/18 06:11 Alkaline Phosphatase 95 U/L (38-126) 01/18/18 06:11 Total Protein 5.4 g/dL (5.8-8.3) L 01/18/18 06:11 Albumin 2.7 g/dL (3.0-4.8) L 01/18/18 06:11 Globulin 2.7 gm/dL 01/18/18 06:11 Albumin/Globulin Ratio 1.0 (1.1-1.8) L 01/18/18 06:11 Procalcitonin 0.53 NG/ML (0.19-0.49) H 01/20/18 08:30 Venous Blood Potassium 3.6 mmol/L (3.6-5.2) 01/18/18 23:12 Urine Color Yellow (YELLOW) 01/21/18 05:39 Urine Appearance Clear (CLEAR) 01/21/18 05:39 Urine pH 6.0 (4.7-8.0) 01/21/18 05:39 Ur Specific [place] 1.025 (1.005-1.035) 01/21/18 05:39 Urine Protein 30 mg/dL (<30 mg/dL) H 01/21/18 05:39 Urine Glucose (UA) Negative mg/dL (NEGATIVE) 01/21/18 05:39 Urine Ketones Negative mg/dL (NEGATIVE) 01/21/18 05:39 Urine Blood Negative (NEGATIVE) 01/21/18 05:39 Urine Nitrate Negative (NEGATIVE) 01/21/18 05:39 Urine Bilirubin Negative (NEGATIVE) 01/21/18 05:39 Urine Urobilinogen 0.2 E.U./dL (<1 E.U./dL) 01/21/18 05:39 Ur Leukocyte Esterase Negative Qasim/uL (NEGATIVE) 01/21/18 05:39 Urine RBC 0 - 2 /hpf (0-2) 01/21/18 05:39 Urine WBC 2 - 5 /hpf (0-6) 01/21/18 05:39 Ur Epithelial Cells None /hpf (0-5) 01/21/18 05:39 Urine Bacteria Small (NEG) 01/21/18 05:39 Influenza Typ A,B (EIA) Negative for flu a/b (NEGATIVE) 01/20/18 16:47 - Hospital Course Hospital Course: 77 year old male with a past medical history significant for stage IV mantle cell lymphoma (quiescence), lung cancer s/p wedge resection, hypoglobulinemia, CAD s/p stent placement, DM2, HTN, COPD, and perforated sigmoid diverticulitis s/p Milli procedure who presented with abdominal pain. After patient was medically optimized and approved, he was discharged to the TCU for further physical rehabilitation. Patient was initially discharged on 01/18/2018 however developed a fever prompting further stay. Fever subsided. Patient is stable for discharge. He was treated for the following assessments as described below during his admission: 1. S/P Colostomy Reversal -EGD/CSPY report noted -Percocet PRN for pain control -Strict I/O's, OOB to chair and IS -GI and Surgery consulted, all recommendations appreciated 2. Elevated Troponins -Likely secondary to type II HI, per cardio -S/P heparin gtt -PTCA with stents placed -Cardiology and Nephrology consulted, all recommendations appreciated 3. Intermittent AMS -CT Head without contrast showed no acute intracranial abnormalities -CTA head and neck unremarkable -Neurology consulted, all recommendations appreciated 4. Normocytic Anemia -H/H stable -CT abdomen/pelvis without contrast showing no intra-abdominal and/or retroperitoneal hemorrhage -S/P two units of pRBC's -Continue to monitor with daily CBC's 5. History of CAD -ASA, Plavix and Lopressor -Cardiology consulted, all recommendations appreciated 6. History of COPD -Duonebs -Singulair 7. History of BPH -Rapaflo and Oxybutynin 8. History of DM2 -SSI-Low and Accuchecks ACHS Discharge Exam - Additional Findings Additional findings: - Head Exam Head Exam: NORMAL INSPECTION - Eye Exam Eye Exam: EOMI, Normal appearance - ENT Exam ENT Exam: Mucous Membranes Moist - Neck Exam Neck exam: Full Rom, Normal Inspection - Respiratory Exam Respiratory Exam: Clear to PA & Lateral, NORMAL BREATHING PATTERN, UNREMARKABLE - Cardiovascular Exam Cardiovascular Exam: REGULAR RHYTHM - GI/Abdominal Exam GI & Abdominal Exam: Normal Bowel Sounds, Unremarkable - Extremities Exam Extremities exam: normal inspection - Neurological Exam Neurological exam: Alert, Normal Gait, Oriented x3 - Psychiatric Exam Psychiatric exam: Normal Affect, Normal Mood - Skin Skin Exam: Dry, Intact, Normal Color, Warm Discharge Plan - Discharge Medications Prescriptions: Aluminum Hydroxide Gel [Amphogel] 320 mg PO PRN PRN #20 ml PRN Reason: Nausea/Vomiting - Follow Up Plan Condition: GOOD Disposition: HOME/ ROUTINE Instructions: Acute Abdominal Pain (DC), Acute Abdominal Pain (GEN), Hypertension (DC), Hypertension (GEN) Additional Instructions: Please follow up with your PMD within one to two weeks for post discharge follow up. Please take all medications as prescribed. You have been started on potassium supplementation. Please take this daily as prescribed. If your symptoms return, please seek emergency medical attention immediately. Referrals: Alie Myers MD [Staff Provider] -
[2018-01-21] MEDS: SILODOSIN 8 MG PO SCH (17:06)
[2018-01-22 00:46] VITALS: BP 108/65; PULSE 84; TEMP 98.9; O2SAT 96
--- NOTE | 2018-01-22 07:32 | PN ---
DATE: 01/21/2018 PULMONARY PROGRESS NOTE REFERRING PHYSICIAN: Ted Santoyo MD SUBJECTIVE: He is ambulating in the room. Day is unremarkable. Feels much better, done well in therapy. No headache, no rhinitis. No cough, no sputum production. Abdominal pain is improved. No diarrhea. No leg pain, no leg swelling. OBJECTIVE: GENERAL: In no acute distress. VITAL SIGNS: Temperature is 98, heart rate 84, respiratory rate 18, blood pressure 108/65, pulse ox 96% on room air. HEENT: Moist mucous membranes. No ulcer or thrush noted. NECK: Supple. No JVD. LUNGS: Have fair airflow with rhonchi. HEART: S1 and S2. ABDOMEN: Soft, nontender, nondistended. Incision site looks okay. EXTREMITIES: There is no edema. NEUROLOGIC: Awake and alert, follows simple commands. MEDICATIONS: Reviewed, noted. No new changes since yesterday. LABORATORY DATA: Reviewed, shows hemoglobin 10, hematocrit 29.9, WBC 5.6, platelet is 235,000. Blood sugar 145. Urinalysis shows wbc's 2 to 5, rbc's 0 through 2. Influenza A and B have been negative. Microbiology, blood culture done yesterday, there is no growth. Urine shows less than 100,000 colonies of organism. IMPRESSION AND PLAN: Status post laparotomy, reversal of colostomy, visceral perforation and myocardial infarction requiring coronary stent, history of lung cancer requiring wedge resection, mental cell lymphoma, diabetes, hypertension, activities of daily living dysfunction, may have sleep apnea syndrome. Had a mild low-grade fever yesterday. Antibiotic was given, but today antibiotic has been discontinued and he feels much better today. Pulmonary point of view, as an outpatient, needs PFT and also needs attended sleep study, surgical and Infectious Diseases followup. Thank you, and we will follow with you. Thanh Duffy MD
== END 2018-01-21 19:46 | disposition home or self-care (01) | DRG 393 ==
LOC: TRCU 17:04
PROVIDERS: ADMIT Family Medicine; ATTEND Family Medicine
PROC: F07Z9FZ Gait Training/Functional Ambulation Treatment using Assistive, Adaptive, Supportive or Protective Equipment (ICD-10-PCS; principal; 2018-01-10)
PROC: F07M6ZZ Therapeutic Exercise Treatment of Musculoskeletal System - Whole Body (ICD-10-PCS; 2018-01-10)
PROC: F08Z2ZZ Grooming/Personal Hygiene Treatment (ICD-10-PCS; 2018-01-10)
PROC: F08Z1ZZ Dressing Techniques Treatment (ICD-10-PCS; 2018-01-10)
PROC: F08Z0ZZ Bathing/Showering Techniques Treatment (ICD-10-PCS; 2018-01-10)
DX: Z43.3 Encounter for attention to colostomy (principal); I21.A1 Myocardial infarction type 2; R65.10 Systemic inflammatory response syndrome (SIRS) of non-infectious origin without acute organ dysfunction; C83.10 Mantle cell lymphoma, unspecified site; E87.2 Acidosis; K57.20 Diverticulitis of large intestine with perforation and abscess without bleeding; D63.8 Anemia in other chronic diseases classified elsewhere; E11.9 Type 2 diabetes mellitus without complications; E78.5 Hyperlipidemia, unspecified; E83.42 Hypomagnesemia; E87.6 Hypokalemia; G47.30 Sleep apnea, unspecified; I10 Essential (primary) hypertension; I25.10 Atherosclerotic heart disease of native coronary artery without angina pectoris; J44.9 Chronic obstructive pulmonary disease, unspecified; N40.0 Benign prostatic hyperplasia without lower urinary tract symptoms; Z79.02 Long term (current) use of antithrombotics/antiplatelets; Z79.82 Long term (current) use of aspirin; Z79.84 Long term (current) use of oral hypoglycemic drugs; Z85.118 Personal history of other malignant neoplasm of bronchus and lung; Z86.19 Personal history of other infectious and parasitic diseases; Z87.01 Personal history of pneumonia (recurrent); Z87.440 Personal history of urinary (tract) infections; Z90.49 Acquired absence of other specified parts of digestive tract; Z92.21 Personal history of antineoplastic chemotherapy; Z93.3 Colostomy status; Z95.5 Presence of coronary angioplasty implant and graft; Z98.0 Intestinal bypass and anastomosis status; Z88.1 Allergy status to other antibiotic agents; Z88.0 Allergy status to penicillin; Z88.2 Allergy status to sulfonamides; Z88.8 Allergy status to other drugs, medicaments and biological substances

== ENCOUNTER 2018-01-22 20:15 | Inpatient (IN) | payer MEDICARE, OTHER ==
[2018-01-22 20:15] VITALS: BMI 27.1
--- NOTE | 2018-01-22 20:57 | ED PDOC ---
Arrival/HPI - General Chief Complaint: Fever Time Seen by Provider: 01/22/18 20:32 Historian: Patient - History of Present Illness Narrative History of Present Illness (Text): 01/22/18 20:46 Jakub Marques is a 77 year old male, whose past medical history includes stage IV mantle cell lymphoma, lung cancer s/p wedge resection, hypoglobulinemia, CAD s/p cardiac stent placement, diabetes, hypertension, COPD, and perforated sigmoid diverticulitis s/p Milli procedure, colostomy reversal, who presents to the ED accompanied by complaining of fever. states patient has been experiencing intermittent fever and chills since yesterday morning and has been complaining of bilateral leg pain and wrist pain. Patient also reports some abdominal pain, multiple episodes of watery diarrhea, and generalized weakness. Patient denies any chest pain, shortness of breath, vomiting, back pain, headache, dizziness, or any other complaints. Symptom Onset: Gradual Symptom Course: Unchanged Activities at Onset: Light Context: Home Past Medical History - Provider Review Nursing Documentation Reviewed: Yes - Past History Past History: Unable to Obtain - Infectious Disease Hx of Infectious Diseases: None - Tetanus Immunization Tetanus Immunization: Unknown - Cardiac Hx Cardiac Disorders: Yes (CAD, S/P 4 cardiac stents AND 2 STENTS ON 01/08/2018, [place]) Hx Hypertension: Yes - Pulmonary Hx Respiratory Disorders: Yes Hx Pneumonia: Yes - Neurological Hx Paralysis: No - HEENT Hx HEENT Disorder: Yes Hx Cataracts: (h0h b/lhearing aid) - Renal Hx Renal Disorder: No - Endocrine/Metabolic Hx Diabetes Mellitus Type 2: Yes - Hematological/Oncological Hx Blood Transfusions: Yes Hx Blood Transfusion Reaction: No - Integumentary Hx Dermatological Disorder: No - Musculoskeletal/Rheumatological Hx Falls: No - Gastrointestinal Hx Gastrointestinal Disorders: Yes (Post perfrorated sigmond colon-post exploratory lap sigmoidectomy,colostomy) - Genitourinary/Gynecological Hx Genitourinary Disorders: Yes - Psychiatric Hx Substance Use: No - Past Surgical History Past Surgical History: Unable to Obtain - Surgical History Hx Cardiac Catheterization: Yes (sents x4) Hx Musculoskeletal Surgery: Yes Hx Open Heart Surgery: Yes - Anesthesia Hx Anesthesia: Yes Hx Anesthesia Reactions: No Hx Malignant Hyperthermia: No - Suicidal Assessment Feels Threatened In Home Enviroment: No Family/Social History - Physician Review Nursing Documentation Reviewed: Yes Family/Social History: Unknown Family HX Smoking Status: Never Smoked Hx Alcohol Use: No Hx Substance Use: No Hx Substance Use Treatment: No Allergies/Home Meds Allergies/Adverse Reactions: Allergies azithromycin Allergy (Severe, Verified 01/09/18 19:42) ANGIOEDEMA erythromycin base Allergy (Severe, Verified 01/09/18 19:42) ANGIOEDEMA Penicillins Allergy (Severe, Verified 01/09/18 19:42) ANAPHYLAXIS cephalexin monohydrate [From Keflex] Allergy (Intermediate, Verified 01/09/18 19:42) RASH gabapentin Allergy (Intermediate, Verified 01/09/18 19:42) RASH pregabalin Allergy (Intermediate, Verified 01/09/18 19:42) RASH Sulfa (Sulfonamide Antibiotics) Allergy (Intermediate, Verified 01/09/18 19:42) RASH nitro paste Allergy (Intermediate, Uncoded 01/09/18 19:42) DIZZINESS/HYPOTENSION CAUSE HYPOTENSION Imbrovica Allergy (Uncoded 01/09/18 19:42) FEVER Home Medications: Home Meds Medication Instructions Recorded Confirmed Ranolazine [Ranexa] 500 mg PO BID 06/03/16 01/23/18 Ca/D3/Mag#11/Zinc/Discharge Door Operator/Andrés/Bor 1 tab PO DAILY 11/30/17 01/23/18 [Caltrate 600+D Plus Tablet] Magnesium Oxide [Mag-Ox] 400 mg PO DAILY 11/30/17 01/23/18 Silodosin [Rapaflo] 8 mg PO QPM 11/30/17 01/23/18 [place]-3/Dha/Epa/Fish Oil [Fish Oil 1 cap PO DAILY 12/04/17 01/23/18 Dr 500 mg Softgel] metFORMIN [glucOPHAGE] 500 mg PO BID 12/30/17 01/23/18 Review of Systems - Physician Review All systems were reviewed & negative as marked: Yes - Review of Systems Constitutional: Fevers, Other (+chills) Eyes: Normal ENT: Normal Respiratory: Normal. absent: SOB, Cough Cardiovascular: Normal. absent: Chest Pain Gastrointestinal: Abdominal Pain, Diarrhea Genitourinary Male: Normal. absent: Dysuria, Frequency, Urinary Output Changes Musculoskeletal: Normal. absent: Back Pain, Neck Pain Skin: Normal. absent: Rash Neurological: Normal. absent: Headache, Dizziness Endocrine: Normal Hemo/Lymphatic: Normal Psychiatric: Normal Physical Exam Vital Signs Reviewed: Yes Vital Signs Temp Pulse Resp BP Pulse Ox 01/22/18 20:36 98.6 F 78 18 147/82 100 Temperature: Afebrile Blood Pressure: Normal Pulse: Regular Respiratory Rate: Normal Appearance: Positive for: Well-Appearing, Non-Toxic, Comfortable Pain Distress: None Mental Status: Positive for: Alert and Oriented X 3 - Systems Exam Head: Present: Atraumatic, Normocephalic Pupils: Present: PERRL Extroacular Muscles: Present: EOMI Conjunctiva: Present: Normal Mouth: Present: Moist Mucous Membranes Neck: Present: Normal Range of Motion Respiratory/Chest: Present: Clear to Auscultation, Good Air Exchange. No: Respiratory Distress, Accessory Muscle Use Cardiovascular: Present: Regular Rate and Rhythm, Normal S1, S2. No: Murmurs Abdomen: No: Tenderness, Distention, Peritoneal Signs Back: Present: Normal Inspection Upper Extremity: Present: Normal Inspection. No: Cyanosis, Edema Lower Extremity: Present: Normal Inspection. No: Edema Neurological: Present: GCS=15, CN II-XII Intact, Speech Normal Skin: Present: Warm, Dry, Normal Color. No: Rashes Psychiatric: Present: Alert, Oriented x 3, Normal Insight, Normal Concentration Medical Decision Making ED Course and Treatment: 01/22/18 20:46 Impression: 77 year old male complaining of fever, chills, abdominal pain, diarrhea, and generalized weakness. Plan: -- EKG -- CXR -- Rapid influenza -- Labs, VBG, blood cultures -- UA, urine cultures -- Reassess and disposition Progress Notes: 01/22/18 22:07 CXR reviewed, shows no acute processes. 01/23/18 00:46 Reviewed EKG, NSR at 77 bpm. Non-specific T wave changes. 01/23/18 00:[address] Myers, who is aware and agrees with plan. Pt [facility] be [facility] for systemic infection. 01/23/18 04:09 CT Abdomen and Pelvis: Sigmoidectomy in the interim. Unchanged. Unchanged size 7.5x5.3 cm peripherally enhancing fluid collection in the left lower quadrant adjacent to the left obturator internus muscle. This is suggestive of progression from phlegmon to well defined pelvic abscess. Prominent surrounding inflammatory fat stranding. Mildly increased. Retroperitoneal inflammatory fat infiltration and stranding, mildly increased. Surgical changes of anterior abdominal wall. Uncomplicated colonic diverticulosis. Constipation. Bilateral basilar subsegmental atelectatic pulmonary changes. Normal enhanced liver. Normal gallbladder and extrahepatic biliary system. Normal enhanced spleen. Normal pancreas. Normal bilateral adrenal glands. Normal size of the right kidney. There is no right renal mass. There are no ri ght renal calculi. There is no right hydronephrosis. Normal visualized right ureter. Normal size of the left kidney. There is no left renal mass. There are no left renal calculi. There is no left hydronephrosis. Normal visualized left ureter. Mildly dilated left extrarenal pelvis. Normal visualized stomach. Fluid-filled loops of the small intestine. There is no demonstrated peritoneal fluid. Normal abdominal aorta. Normal inferior vena cava. Normal retroperitoneum. Distended urinary bladder. There is no pelvic mass lesion or lymphadenopathy. There is no pelvic fluid. Surgical changes of the abdominal wall. Spondylosis. IMPRESSION: Sigmoidectomy Phlegmon formation in the pelvis has become a loculated abscess. Increased retroperitoneal and surrounding pelvic inflammatory fat stranding. Mild ileus, mildly increased. Electronically signed on Jan 23, 2018 4:00:19 AM EST by: Bisi Villarreal M.D., Certified by ABR, MSK, Neuroradiology - Lab Interpretations I have reviewed the lab results: Yes - RAD Interpretation Ruffling Hemmer Automatic: ED Physician - EKG Interpretation Interpreted by ED Physician: Yes Type: 12 lead EKG - Scribe Statement The provider has reviewed the documentation as recorded by the Scribe Carmen Balderas All medical record entries made by the Scribe were at my direction and personally dictated by me. I have reviewed the chart and agree that the record accurately reflects my personal performance of the history, physical exam, medical decision making, and the department course for this patient. I have also personally directed, reviewed, and agree with the discharge instructions and disposition. Disposition/Present on Arrival - Present on Arrival Any Indicators Present on Arrival: No History of DVT/PE: No History of Uncontrolled Diabetes: No Urinary Catheter: No History of Decub. Ulcer: No History Surgical Site Infection Following: None - Disposition Have Diagnosis and Disposition been Completed?: Yes Diagnosis: Fever of unknown origin Disposition: HOSPITALIZED Disposition Time: 01:00 Condition: FAIR
[2018-01-22 22:05] LABS: BASO # 0.01 K/mm3 (0.0-2.0); BASO % 0.1 % (0.0-3.0); EOS # 0.2 (0.0-0.7); EOS % 2.1 % (1.5-5.0); GRAN # 5.89 (1.4-6.5); GRAN % 75.9 % (50.0-68.0); HEMOGLOBIN 9.3 g/dL (14.0-18.0); LYMPH # 1.1 (1.2-3.4); LYMPH % 14.5 % (22.0-35.0); MEAN CELL VOLUME 86.5 fl (80.0-105.0); MEAN CORPUSCULAR HEMOGLOBIN 28.4 pg (25.0-35.0); MEAN CORPUSCULAR HGB CONC 32.9 g/dl (31.0-37.0); MEAN PLATELET VOLUME 9.6 fl (7.0-11.0); MONO # 0.6 (0.1-0.6); MONO % 7.4 % (1.0-6.0); RBC 3.27 10^6/uL (3.5-6.1); WHITE BLOOD COUNT 7.8 10^3/uL (4.5-11.0)
[2018-01-22 22:05] LABS: VENOUS BLOOD GAS BASE EXCESS -0.4 mmol/L (0.0-2.0); VENOUS BLOOD GAS PO2 51 mm/Hg (30-55); VENOUS BLOOD PH 7.38 (7.32-7.43)
[2018-01-22 22:19] LABS: INR 1.21; PARTIAL THROMBOPLASTIN TIME 30.6 Seconds (25.1-36.5); PROTHROMBIN TIME 13.8 SECONDS (9.4-12.5)
[2018-01-22 22:28] LABS: ALB/GLOB RATIO 0.9 (1.1-1.8); ALT/SGPT 45 U/L (7-56); AST/SGOT 51 U/L (17-59); BLOOD UREA NITROGEN 9 mg/dL (7-21); CALCIUM 8.5 mg/dL (8.4-10.5); GFR NON-AFRICAN AMERICAN > 60
[2018-01-22] MEDS ORDERED: Vancomycin 1gm in NS 250ml 1 GM/250 ML BAG IVPB STA (23:46)
[2018-01-23] MEDS ORDERED: metroNIDAZOLE IV 500 mg/100 ml 500 MG/100 ML BAG IVPB STA (00:01)
[2018-01-23 00:27] LABS: URINE BILIRUBIN NEGATIVE (NEGATIVE); URINE BLOOD NEGATIVE (NEGATIVE); URINE GLUCOSE (UA) NEGATIVE (NEGATIVE); URINE LEUKOCYTE ESTERASE NEGATIVE Leu/uL (NEGATIVE); URINE PROTEIN 30 mg/dL (<30 mg/dL); URINE UROBILINOGEN 0.2 E.U./dL (<1 E.U./dL)
[2018-01-23 00:30] LABS: URINE APPEARANCE SL CLOUDY (CLEAR); URINE COLOR YELLOW (YELLOW)
[2018-01-23] MEDS ORDERED: Meropenem IV 1 gm in NS 1 GM/50 ML BAG IVPB STA (00:48)
[2018-01-23] MEDS: Sodium Chloride 0.9% 1,000 ML IV SCH ×2 (00:56→10:03)
[2018-01-23 01:14] LABS: URINE RBC NEGATIVE /hpf (0-2); URINE WBC NEGATIVE /hpf (0-6)
[2018-01-23 01:15] LABS: URINE BACTERIA MOD (NEG)
[2018-01-23] MEDS ORDERED: Iohexol 350 MG/100 ML VIAL ONE (01:46)
[2018-01-23] MEDS ORDERED: Sodium Chloride 0.9% 1,000 ML IV STA (03:34)
[2018-01-23] MEDS: Vancomycin 1gm in NS 250ml 1 GM/250 ML BAG IVPB SCH ×2 (09:24→22:03)
--- NOTE | 2018-01-23 09:30 | CP.PCM.HP ---
History of Present Illness - History of Present Illness History of Present Illness: Chris Stallings- Internal Medicine Resident- H&P on Behalf of Hematology/Oncology CC: Fever/Chills HPI: Patient is a 77 year old male with a past medical history significant for stage IV mantle cell lymphoma (quiescence), lung cancer s/p wedge resection, hypoglobulinemia, CAD s/p stent placement, DM2, HTN, COPD, and perforated sigmoid diverticulitis s/p Milli procedure who was admitted for evaluation and treatment of fever and chills. States symptoms started yesterday. Denies exacerbating or remitting factors. Also admits to baseline low back/sacral pain. Also admits to lower extremity pain left worse then right. Denies chest pain, shortness of breath, abdominal pain, nausea, vomiting, diarrhea, constipation, and urinary symptoms. PMHx: Stage IV mantle cell lymphoma (quiescence), lung cancer s/p wedge resection, hypoglobulinemia, CAD s/p stent placement, DM2, HTN, COPD, and perforated sigmoid diverticulitis s/p Milli procedure PSHx: Rob procedure, Colostomy reversal, and lung wedge resection Family History: Non-Contributory Social History: Denies any tobacco, alcohol or illicit drug abuse Allergies: Zithromax, Keflex and PCN Home Medications: As per MAR Physical Examination: - Constitutional Constitutional: Non-toxic, No Acute Distress - Head Exam Head Exam: ATRAUMATIC, NORMOCEPHALIC - Eye Exam Eye Exam: EOMI, PERRL. absent: Scleral icterus - ENT Exam ENT Exam: Mucous Membranes Moist, Normal Oropharynx - Neck Exam Neck Exam: Full ROM, Normal Inspection - Respiratory Exam Respiratory Exam: Clear to Ausculation Bilateral. absent: Rales, Rhonchi, Wheezes - Cardiovascular Exam Cardiovascular Exam: RRR, +S1, +S2. absent: Gallop, Rubs - GI/Abdominal Exam GI & Abdominal Exam: Soft, Normal Bowel Sounds. absent: Distended, Firm, Guarding, Rigid, Tenderness, Organomegaly, Rebound - Extremities Exam Extremities Exam: Normal Inspection. absent: Pedal Edema - Neurological Exam Neurological Exam: Alert, Awake, Orientated x 3 - Psychiatric Exam Psychiatric exam: Normal Affect, Normal Mood - Skin Skin Exam: Dry, Intact, Normal Color, Warm Assessment and Plan: 77 year old male with a past medical history significant for stage IV mantle cell lymphoma (quiescence), lung cancer s/p wedge resection, hypoglobulinemia, CAD s/p stent placement, DM2, HTN, COPD, and perforated sigmoid diverticulitis s/p Milli procedure who was admitted for fevers and chills. Fever/Chills - 01/23/2018 CT Abdomen and Pelvis with contrast- Decrease in inflammatory changes at the sigmoid anastomotic suture line. Stable well-formed fluid collection interposed between the sigmoid and sacrum. Interposed between the anastomotic suture line in the sacrum is a well-formed collection measuring 4.2 x 7 cm. This is either postoperative seroma or abscess. - IR consulted for potential drainage - ID consulted- appreciate recommendations, continue vancomycin and meropenem Back Pain - neurology consulted- appreciate recommendations - lidoderm patch to affected region 12 on 12 off History of CAD -S/P Cardiac cath with two BRAULIO placed -Continue Plavix, ASA, Lipitor, zetia, and Lopressor Normocytic Anemia -H/H stable -Continue to monitor with daily CBC's History of COPD -Continue xopenex -Continue Singulair History of BPH -Continue Rapaflo and Oxybutynin History of DM2 -SSI-Med and Accuchecks ACHS Prophylaxis - GI Prophylaxis: famotidine - DVT Prophylaxis: SCD's Patient seen, case discussed with, and plan approved by attending physician, Dr. Minor. Present on Admission - Present on Admission Any Indicators Present on Admission: No Past Patient History - Infectious Disease Hx of Infectious Diseases: None - Tetanus Immunizations Tetanus Immunization: Unknown - Past Medical History & Family History Past Medical History?: Yes - Past Social History Smoking Status: Never Smoked - CARDIAC Hx Cardiac Disorders: Yes (CAD, S/P 4 cardiac stents AND 2 STENTS ON 01/08/2018, [place]) Hx Hypertension: Yes - PULMONARY Hx Respiratory Disorders: Yes Hx Pneumonia: Yes - NEUROLOGICAL Hx Paralysis: No - HEENT Hx HEENT Problems: Yes Hx Cataracts: (h b/lhearing aid) - RENAL Hx Chronic Kidney Disease: No - ENDOCRINE/METABOLIC Hx Diabetes Mellitus Type 2: Yes - HEMATOLOGICAL/ONCOLOGICAL Hx Blood Transfusions: Yes Hx Blood Transfusion Reaction: No - INTEGUMENTARY Hx Dermatological Problems: No - MUSCULOSKELETAL/RHEUMATOLOGICAL Hx Falls: No - GASTROINTESTINAL Hx Gastrointestinal Disorders: Yes (Post perfrorated sigmond colon-post exploratory lap sigmoidectomy,colostomy) - GENITOURINARY/GYNECOLOGICAL Hx Genitourinary Disorders: Yes - PSYCHIATRIC Hx Substance Use: No - SURGICAL HISTORY Hx Cardiac Catheterization: Yes (sents x4) Hx Musculoskeletal Surgery: Yes Hx Open Heart Surgery: Yes - ANESTHESIA Hx Anesthesia: Yes Hx Anesthesia Reactions: No Hx Malignant Hyperthermia: No Meds Allergies/Adverse Reactions: Allergies Allergy/AdvReac Type Severity Reaction Status Date / Time azithromycin Allergy Severe ANGIOEDEMA Verified 01/09/18 19:42 erythromycin base Allergy Severe ANGIOEDEMA Verified 01/09/18 19:42 Penicillins Allergy Severe ANAPHYLAXIS Verified 01/09/18 19:42 cephalexin monohydrate Allergy Intermediate RASH Verified 01/09/18 19:42 [From Keflex] gabapentin Allergy Intermediate RASH Verified 01/09/18 19:42 pregabalin Allergy Intermediate RASH Verified 01/09/18 19:42 Sulfa (Sulfonamide Allergy Intermediate RASH Verified 01/09/18 19:42 Antibiotics) nitro paste Allergy Intermediate DIZZINESS/H Uncoded 01/09/18 19:42 YPOTENSION Imbrovica Allergy FEVER Uncoded 01/09/18 19:42 Results - Vital Signs Recent Vital Signs: Last Vital Signs Temp 99.0 F 01/23/18 02:57 Pulse 82 01/23/18 05:06 Resp 18 01/23/18 05:06 BP 135/80 01/23/18 05:06 Pulse Ox 97 01/23/18 06:10 - Labs Result Diagrams: 01/23/18 09:00 01/23/18 09:00 Labs: Laboratory Results - last 24 hr 01/22/18 01/22/18 01/22/18 21:39 21:42 21:42 WBC 7.8 D RBC 3.27 L Hgb 9.3 L Hct 28.3 L MCV 86.5 MCH 28.4 MCHC 32.9 RDW 15.0 H Plt Count 189 MPV 9.6 Gran % 75.9 H Lymph % (Auto) 14.5 L [place] % (Auto) 7.4 H Eos % (Auto) 2.1 Baso % (Auto) 0.1 Gran # 5.89 Lymph # (Auto) 1.1 L [place] # (Auto) 0.6 Eos # (Auto) 0.2 Baso # (Auto) 0.01 PT 13.8 H INR 1.21 APTT 30.6 pO2 51 VBG pH 7.38 VBG pCO2 42.0 VBG HCO3 24.8 VBG Total CO2 26.1 VBG O2 Sat (Calc) 88.5 H VBG Base Excess -0.4 L VBG Potassium 3.7 Sodium 136.0 Chloride 105.0 Glucose 145 H Lactate 1.4 FiO2 21.0 Potassium Carbon Dioxide Anion Gap BUN Creatinine Est GFR ( Amer) Est GFR (Non-Af Amer) POC Glucose (mg/dL) Random Glucose Calcium Phosphorus Magnesium Total Bilirubin AST ALT Alkaline Phosphatase Total Protein Albumin Globulin Albumin/Globulin Ratio Venous Blood Potassium 3.7 Urine Color Urine Appearance Urine pH Ur Specific [place] Urine Protein Urine Glucose (UA) Urine Ketones Urine Blood Urine Nitrate Urine Bilirubin Urine Urobilinogen Ur Leukocyte Esterase Urine RBC Urine WBC Ur Epithelial Cells Urine Bacteria Urine Other Influenza Typ A,B (EIA) 01/22/18 01/22/18 01/23/18 21:42 23:58 02:59 WBC RBC Hgb Hct MCV MCH MCHC RDW Plt Count MPV Gran % Lymph % (Auto) [place] % (Auto) Eos % (Auto) Baso % (Auto) Gran # Lymph # (Auto) [place] # (Auto) Eos # (Auto) Baso # (Auto) PT INR APTT pO2 VBG pH VBG pCO2 VBG HCO3 VBG Total CO2 VBG O2 Sat (Calc) VBG Base Excess VBG Potassium Sodium 136 Chloride 106 Glucose Lactate FiO2 Potassium 3.7 Carbon Dioxide 24 Anion Gap 11 BUN 9 Creatinine 0.8 Est GFR ( Amer) > 60 Est GFR (Non-Af Amer) > 60 POC Glucose (mg/dL) Random Glucose 137 H Calcium 8.5 Phosphorus 2.3 L Magnesium 1.8 Total Bilirubin 0.7 AST 51 ALT 45 Alkaline Phosphatase 172 H D Total Protein 6.2 Albumin 3.0 Globulin 3.2 Albumin/Globulin Ratio 0.9 L Venous Blood Potassium Urine Color Yellow Urine Appearance Sl cloudy Urine pH 6.0 Ur Specific [place] 1.025 Urine Protein 30 H Urine Glucose (UA) Negative Urine Ketones Negative Urine Blood Negative Urine Nitrate Negative Urine Bilirubin Negative Urine Urobilinogen 0.2 Ur Leukocyte Esterase Negative Urine RBC Negative Urine WBC Negative Ur Epithelial Cells 3 - 4 Urine Bacteria Mod Urine Other Mucus Influenza Typ A,B (EIA) Negative for flu a/b 01/23/18 08:19 WBC RBC Hgb Hct MCV MCH MCHC RDW Plt Count MPV Gran % Lymph % (Auto) [place] % (Auto) Eos % (Auto) Baso % (Auto) Gran # Lymph # (Auto) [place] # (Auto) Eos # (Auto) Baso # (Auto) PT INR APTT pO2 VBG pH VBG pCO2 VBG HCO3 VBG Total CO2 VBG O2 Sat (Calc) VBG Base Excess VBG Potassium Sodium Chloride Glucose Lactate FiO2 Potassium Carbon Dioxide Anion Gap BUN Creatinine Est GFR ( Amer) Est GFR (Non-Af Amer) POC Glucose (mg/dL) 135 H Random Glucose Calcium Phosphorus Magnesium Total Bilirubin AST ALT Alkaline Phosphatase Total Protein Albumin Globulin Albumin/Globulin Ratio Venous Blood Potassium Urine Color Urine Appearance Urine pH Ur Specific [place] Urine Protein Urine Glucose (UA) Urine Ketones Urine Blood Urine Nitrate Urine Bilirubin Urine Urobilinogen Ur Leukocyte Esterase Urine RBC Urine WBC Ur Epithelial Cells Urine Bacteria Urine Other Influenza Typ A,B (EIA)
[2018-01-23 09:47] LABS: BASO # 0.02 K/mm3 (0.0-2.0); BASO % 0.3 % (0.0-3.0); EOS # 0.2 (0.0-0.7); EOS % 2.4 % (1.5-5.0); GRAN # 5.98 (1.4-6.5); GRAN % 76.6 % (50.0-68.0); LYMPH # 1.2 (1.2-3.4); LYMPH % 15.2 % (22.0-35.0); MEAN CELL VOLUME 86.3 fl (80.0-105.0); MEAN CORPUSCULAR HEMOGLOBIN 28.1 pg (25.0-35.0); MEAN CORPUSCULAR HGB CONC 32.6 g/dl (31.0-37.0); MEAN PLATELET VOLUME 10.2 fl (7.0-11.0); MONO # 0.4 (0.1-0.6); MONO % 5.5 % (1.0-6.0); RBC 3.2 10^6/uL (3.5-6.1); RED CELL DISTRIBUTION WIDTH 14.9 % (11.5-14.5); WHITE BLOOD COUNT 7.8 10^3/uL (4.5-11.0)
[2018-01-23 09:54] LABS: ALB/GLOB RATIO 0.9 (1.1-1.8); ALBUMIN 2.8 g/dL (3.0-4.8); ALT/SGPT 37 U/L (7-56); AST/SGOT 38 U/L (17-59); BLOOD UREA NITROGEN 6 mg/dL (7-21); CALCIUM 8.1 mg/dL (8.4-10.5); GFR NON-AFRICAN AMERICAN > 60
[2018-01-23] MEDS: Magnesium Oxide 400 mg Tab UD PO SCH (09:58)
[2018-01-23] MEDS ORDERED: Potassium Chloride 40 mEq/30 ml LIQ UD PO ONE ×2 (09:59→13:30)
--- NOTE | 2018-01-23 10:05 | CT ---
Date of service: 01/23/2018 PROCEDURE: CT Abdomen and Pelvis with contrast HISTORY: Fever, abdominal pain and generalized weakness COMPARISON: 01/04/2018 01/18/2018. Serial CT scans abdomen and pelvis TECHNIQUE: Intravenous contrast dose: 100 cc Omnipaque 300. Radiation dose: Total exam DLP = 281.00 mGy-cm. This CT exam was performed using one or more of the following dose reduction techniques: Automated exposure control, adjustment of the mA and/or kV according to patient size, and/or use of iterative reconstruction technique. FINDINGS: LOWER THORAX: Linear scarring at the right lung base. LIVER: Hepatic steatosis. No focal masses. No intrahepatic bile duct dilatation or perihepatic ascites. GALLBLADDER AND BILE DUCTS: Cholelithiasis without CT evidence of acute cholecystitis. PANCREAS: Unremarkable. No gross lesion or ductal dilatation. SPLEEN: Unremarkable. ADRENALS: Unremarkable. No mass. KIDNEYS AND URETERS: Unremarkable. No hydronephrosis. No solid mass. VASCULATURE: Unremarkable. No aortic aneurysm. No atherosclerotic calcification or mural plaque present. BOWEL: Interval improvement in inflammatory changes at the sigmoid anastomotic suture site. Persistent inflammatory changes. Interposed between the anastomotic suture line in the sacrum is a well-formed collection measuring 4.2 x 7 cm. This is either postoperative seroma or abscess. The findings are approximately stable compared to the most recent study although better delineated based on contrast enhancement. APPENDIX: No abnormalities to suggest acute appendicitis. No right lower quadrant inflammatory processes identified. PERITONEUM: Unremarkable. No free fluid. No free air. LYMPH NODES: Unremarkable. No enlarged lymph nodes. BLADDER: Bladder wall thickening is likely related to a relatively decompressed state. Portions of the urinary bladder extend into the left inguinal canal stable finding. REPRODUCTIVE: Unremarkable. BONES: No acute fracture. OTHER FINDINGS: Stable findings left lower quadrant subcutaneous tissues interposed between the skin and rectus muscle. No discrete, drainable collection. IMPRESSION: Decrease in inflammatory changes at the sigmoid anastomotic suture line. Stable well-formed fluid collection interposed between the sigmoid and sacrum. Additional benign and/or incidental findings described above. Concordant results (preliminary interpretation) provided by [employer]. Procedure Completed: :27. Preliminary Report: Dictated and Authenticated: 04:00. Final Interpretation: 10:01
--- NOTE | 2018-01-23 10:42 | RAD ---
Date of service: 01/22/2018 HISTORY: Sepsis Patient COMPARISON: 01/20/2018. FINDINGS: LUNGS: No active pulmonary disease. PLEURA: No significant pleural effusion identified, no pneumothorax apparent. CARDIOVASCULAR: No radiographic findings to suggest acute or significant cardiovascular disease. Atherosclerotic calcifications identified primarily aortic arch. Venous access catheter in stable, satisfactory position. OSSEOUS STRUCTURES: No significant abnormalities. VISUALIZED UPPER ABDOMEN: Normal. OTHER FINDINGS: None. IMPRESSION: No active disease. No significant interval change compared to the prior examination(s).
[2018-01-23] MEDS: Insulin Lispro (humaLOG) MEDIUM Coverage SC SCH ×3 (12:02→21:49)
[2018-01-23] MEDS: RANOLAZINE 500 MG PO SCH ×2 (12:02→17:32)
[2018-01-23] MEDS: Meropenem IV 1 gm in NS 1 GM/50 ML BAG IVPB SCH ×2 (13:23→22:03)
[2018-01-23] MEDS ORDERED: Lidocaine 5% Patch TD ONE (13:36)
[2018-01-23] MEDS ORDERED: Influenza Vaccine 60 mcg/0.5 mL SYR (4YR UP) IM ONE (13:42)
[2018-01-23] MEDS ORDERED: Pneumococcal 23-Valent Vaccine IM ONE (13:42)
[2018-01-23] MEDS: Levalbuterol 0.63 MG/3 ML Inhal Soln UD IH SCH ×2 (13:42→20:49)
--- NOTE | 2018-01-23 13:46 | CARD ---
APPROVED REPORT Date of service: 01/23/2018 EKG Measurement Heart [id number] ND [id number] [id number] <Conclusion> Normal sinus rhythm Nonspecific T wave abnormality
--- NOTE | 2018-01-23 14:02 | PCM.IRP ---
History of Present Illness - History of Present Illness History of Present Illness: IR consulted for pelvic abscess drainage. CT reviewed and collection was present on previous CT as well. Collection remains not amenable to percutaneous drainage secondary to vascular structures and iliac bone. Objective - Vital Signs/Intake and Output Vital Signs (last 24 hours): Vital Signs - 24 hr 01/22/18 01/22/18 01/22/18 20:36 21:13 23:00 Temperature 98.6 F 100.5 F H Pulse Rate 78 74 Pulse Rate [ Apical] Respiratory 18 18 Rate Blood Pressure 147/82 O2 Sat by Pulse 100 98 Oximetry 01/23/18 01/23/18 01/23/18 02:00 02:57 05:06 Temperature 98.9 F 99.0 F Pulse Rate 80 76 82 Pulse Rate [ Apical] Respiratory 18 18 18 Rate Blood Pressure 124/67 135/80 O2 Sat by Pulse 98 97 98 Oximetry 01/23/18 01/23/18 01/23/18 06:10 13:15 13:47 Temperature Pulse Rate 97 H Pulse Rate [ 97 H Apical] Respiratory 18 Rate Blood Pressure O2 Sat by Pulse 97 Oximetry Intake and Output (last 12 hours): Intake & Output 01/22/18 01/23/18 01/23/18 18:59 06:59 18:59 Weight 148 lb 148 lb Other: Voiding Method Toilet - Medications Medications: Current Medications Acetaminophen (Tylenol 325mg Tab) 650 mg PO Q4H PRN PRN Reason: Fever >100.5 F Atorvastatin Calcium (Lipitor) 20 mg PO QPM [facility] Clopidogrel Bisulfate (Plavix) 75 mg PO DAILY [facility] Last Admin: 01/23/18 09:58 Dose: 75 mg Ezetimibe (Zetia) 10 mg PO DAILY [facility] Last Admin: 01/23/18 09:58 Dose: 10 mg Sodium Chloride (Sodium Chloride 0.9%) 1,000 mls @ 100 mls/hr IV .Q10H [facility] Last Admin: 01/23/18 10:03 Dose: 100 mls/hr Meropenem (Merrem Iv 1 Gm Premix) 1 gm in 50 mls @ 100 mls/hr IVPB Q8 [facility]; Protocol Stop: 02/01/18 14:01 Last Admin: 01/23/18 13:23 Dose: 100 mls/hr Vancomycin HCl (Vancomycin 1gm) 1 gm in 250 mls @ 167 mls/hr IVPB Q12H [facility]; Protocol Stop: 02/01/18 08:16 Last Admin: 01/23/18 09:24 Dose: 167 mls/hr Insulin Human Lispro (Humalog Med) 0 units SC ACHS [facility]; Protocol Last Admin: 01/23/18 12:02 Dose: Not Given Levalbuterol HCl (Xopenex) 0.63 mg IH TIDRESP [facility] Last Admin: 01/23/18 13:42 Dose: 0.63 mg Magnesium Oxide (Mag-Ox) 400 mg PO DAILY [facility] Last Admin: 01/23/18 09:58 Dose: 400 mg Metoprolol Tartrate (Lopressor) 12.5 mg PO QPM [facility] Montelukast Sodium (Singulair) 10 mg PO QPM [facility] Ranolazine [Ranexa] (500 Mg (Home)) 500 mg PO BID [facility] Last Admin: 01/23/18 12:02 Dose: 500 mg Silodosin [Rapaflo] (8 Mg) (Home Med)) 8 mg PO QPM [facility] Oxybutynin Chloride (Ditropan Tab) 5 mg PO HS [facility] - Labs Labs (last 24 hours): Laboratory Results - last 24 hr 01/22/18 01/22/18 01/22/18 21:39 21:42 21:42 WBC 7.8 D RBC 3.27 L Hgb 9.3 L Hct 28.3 L MCV 86.5 MCH 28.4 MCHC 32.9 RDW 15.0 H Plt Count 189 MPV 9.6 Gran % 75.9 H Lymph % (Auto) 14.5 L Moore % (Auto) 7.4 H Eos % (Auto) 2.1 Baso % (Auto) 0.1 Gran # 5.89 Lymph # (Auto) 1.1 L Moore # (Auto) 0.6 Eos # (Auto) 0.2 Baso # (Auto) 0.01 PT 13.8 H INR 1.21 APTT 30.6 pO2 51 VBG pH 7.38 VBG pCO2 42.0 VBG HCO3 24.8 VBG Total CO2 26.1 VBG O2 Sat (Calc) 88.5 H VBG Base Excess -0.4 L VBG Potassium 3.7 Sodium 136.0 Chloride 105.0 Glucose 145 H Lactate 1.4 FiO2 21.0 Potassium Carbon Dioxide Anion Gap BUN Creatinine Est GFR ( Amer) Est GFR (Non-Af Amer) POC Glucose (mg/dL) Random Glucose Calcium Phosphorus Magnesium Total Bilirubin AST ALT Alkaline Phosphatase Total Protein Albumin Globulin Albumin/Globulin Ratio Venous Blood Potassium 3.7 Urine Color Urine Appearance Urine pH Ur Specific [place] Urine Protein Urine Glucose (UA) Urine Ketones Urine Blood Urine Nitrate Urine Bilirubin Urine Urobilinogen Ur Leukocyte Esterase Urine RBC Urine WBC Ur Epithelial Cells Urine Bacteria Urine Other Influenza Typ A,B (EIA) 01/22/18 01/22/18 01/23/18 21:42 23:58 02:59 WBC RBC Hgb Hct MCV MCH MCHC RDW Plt Count MPV Gran % Lymph % (Auto) Moore % (Auto) Eos % (Auto) Baso % (Auto) Gran # Lymph # (Auto) Moore # (Auto) Eos # (Auto) Baso # (Auto) PT INR APTT pO2 VBG pH VBG pCO2 VBG HCO3 VBG Total CO2 VBG O2 Sat (Calc) VBG Base Excess VBG Potassium Sodium 136 Chloride 106 Glucose Lactate FiO2 Potassium 3.7 Carbon Dioxide 24 Anion Gap 11 BUN 9 Creatinine 0.8 Est GFR ( Amer) > 60 Est GFR (Non-Af Amer) > 60 POC Glucose (mg/dL) Random Glucose 137 H Calcium 8.5 Phosphorus 2.3 L Magnesium 1.8 Total Bilirubin 0.7 AST 51 ALT 45 Alkaline Phosphatase 172 H D Total Protein 6.2 Albumin 3.0 Globulin 3.2 Albumin/Globulin Ratio 0.9 L Venous Blood Potassium Urine Color Yellow Urine Appearance Sl cloudy Urine pH 6.0 Ur Specific [place] 1.025 Urine Protein 30 H Urine Glucose (UA) Negative Urine Ketones Negative Urine Blood Negative Urine Nitrate Negative Urine Bilirubin Negative Urine Urobilinogen 0.2 Ur Leukocyte Esterase Negative Urine RBC Negative Urine WBC Negative Ur Epithelial Cells 3 - 4 Urine Bacteria Mod Urine Other Mucus Influenza Typ A,B (EIA) Negative for flu a/b 01/23/18 01/23/18 01/23/18 08:19 09:00 09:00 WBC 7.8 RBC 3.20 L Hgb 9.0 L Hct 27.6 L MCV 86.3 MCH 28.1 MCHC 32.6 RDW 14.9 H Plt Count 172 MPV 10.2 Gran % 76.6 H Lymph % (Auto) 15.2 L Moore % (Auto) 5.5 Eos % (Auto) 2.4 Baso % (Auto) 0.3 Gran # 5.98 Lymph # (Auto) 1.2 Moore # (Auto) 0.4 Eos # (Auto) 0.2 Baso # (Auto) 0.02 PT INR APTT pO2 VBG pH VBG pCO2 VBG HCO3 VBG Total CO2 VBG O2 Sat (Calc) VBG Base Excess VBG Potassium Sodium 133 Chloride 103 Glucose Lactate FiO2 Potassium 3.3 L Carbon Dioxide 26 Anion Gap 8 L BUN 6 L Creatinine 0.8 Est GFR ( Amer) > 60 Est GFR (Non-Af Amer) > 60 POC Glucose (mg/dL) 135 H Random Glucose 128 H Calcium 8.1 L Phosphorus Magnesium Total Bilirubin 0.7 AST 38 ALT 37 Alkaline Phosphatase 155 H Total Protein 5.9 Albumin 2.8 L Globulin 3.1 Albumin/Globulin Ratio 0.9 L Venous Blood Potassium Urine Color Urine Appearance Urine pH Ur Specific [place] Urine Protein Urine Glucose (UA) Urine Ketones Urine Blood Urine Nitrate Urine Bilirubin Urine Urobilinogen Ur Leukocyte Esterase Urine RBC Urine WBC Ur Epithelial Cells Urine Bacteria Urine Other Influenza Typ A,B (EIA) 01/23/18 11:38 WBC RBC Hgb Hct MCV MCH MCHC RDW Plt Count MPV Gran % Lymph % (Auto) Moore % (Auto) Eos % (Auto) Baso % (Auto) Gran # Lymph # (Auto) Moore # (Auto) Eos # (Auto) Baso # (Auto) PT INR APTT pO2 VBG pH VBG pCO2 VBG HCO3 VBG Total CO2 VBG O2 Sat (Calc) VBG Base Excess VBG Potassium Sodium Chloride Glucose Lactate FiO2 Potassium Carbon Dioxide Anion Gap BUN Creatinine Est GFR ( Amer) Est GFR (Non-Af Amer) POC Glucose (mg/dL) 126 H Random Glucose Calcium Phosphorus Magnesium Total Bilirubin AST ALT Alkaline Phosphatase Total Protein Albumin Globulin Albumin/Globulin Ratio Venous Blood Potassium Urine Color Urine Appearance Urine pH Ur Specific [place] Urine Protein Urine Glucose (UA) Urine Ketones Urine Blood Urine Nitrate Urine Bilirubin Urine Urobilinogen Ur Leukocyte Esterase Urine RBC Urine WBC Ur Epithelial Cells Urine Bacteria Urine Other Influenza Typ A,B (EIA)
[2018-01-23] MEDS: SILODOSIN 8 MG PO SCH (17:25)
--- NOTE | 2018-01-23 23:47 | CON ---
DATE OF CONSULTATION: 01/23/2018 HISTORY OF PRESENT ILLNESS: This is a 77-year-old male with a past medical history of lymphoma, lung cancer, hypoglobulinemia, coronary artery disease, hypertension, diabetes, COPD, and the patient has perforated sigmoid diverticulitis status post Milli procedure and colostomy reversal. Since then, he has been having loose stool and also having some fever with chills. CT abdomen and pelvis was done, which showed some loculated abscess in the pelvis and increased retroperitoneal pelvic inflammation. The patient also has been complaining of leg pain and wrist pain. Leg pain is better. He is able to move both lower extremities well. Also generalized weakness. PAST MEDICAL HISTORY: As above. SOCIAL HISTORY: Does not smoke, does not drink. HOME MEDICATIONS: Metformin and Ranexa. ALLERGIES: ALLERGIC TO AZITHROMYCIN, ERYTHROMYCIN, PENICILLIN, CEPHALEXIN, GABAPENTIN, PREGABALIN, SULFA. PHYSICAL EXAMINATION: VITAL SIGNS: Blood pressure 147/82. HEENT: Normocephalic, atraumatic. Hard of hearing. NEUROLOGIC: The patient is awake, alert, oriented to self. No aphasia. Cranial nerves II through XII were tested. Pupils reactive. Spontaneous movement of all the extremities noted. Deep tendon reflexes 1+. Both plantars are downgoing. Sensory appears intact. Cerebellar gait deferred. IMPRESSION AND PLAN: A 77-year-old male with above extensive past medical history, came with fever, chills, abdominal pain, diarrhea, generalized weakness, and possibly abscess in the pelvic area. We will do the MRI of the pelvis and lumbosacral area. Continue present management. We will follow up. Felton Davies MD
[2018-01-24] MEDS: Meropenem IV 1 gm in NS 1 GM/50 ML BAG IVPB SCH ×3 (06:28→21:21)
[2018-01-24 07:26] LABS: BASO # 0.02 K/mm3 (0.0-2.0); BASO % 0.3 % (0.0-3.0); EOS # 0.1 (0.0-0.7); EOS % 1.7 % (1.5-5.0); GRAN # 5.8 (1.4-6.5); GRAN % 77.3 % (50.0-68.0); HEMOGLOBIN 9.3 g/dL (14.0-18.0); LYMPH # 1.2 (1.2-3.4); LYMPH % 15.5 % (22.0-35.0); MEAN CELL VOLUME 86.8 fl (80.0-105.0); MEAN CORPUSCULAR HEMOGLOBIN 27.9 pg (25.0-35.0); MEAN CORPUSCULAR HGB CONC 32.2 g/dl (31.0-37.0); MEAN PLATELET VOLUME 10.1 fl (7.0-11.0); MONO # 0.4 (0.1-0.6); MONO % 5.2 % (1.0-6.0); RBC 3.33 10^6/uL (3.5-6.1); WHITE BLOOD COUNT 7.5 10^3/uL (4.5-11.0)
[2018-01-24] MEDS: Levalbuterol 0.63 MG/3 ML Inhal Soln UD IH SCH ×3 (07:55→19:39)
[2018-01-24 07:59] LABS: ALB/GLOB RATIO 0.9 (1.1-1.8); ALBUMIN 2.8 g/dL (3.0-4.8); ALT/SGPT 39 U/L (7-56); AST/SGOT 30 U/L (17-59); BLOOD UREA NITROGEN 7 mg/dL (7-21); CALCIUM 8.1 mg/dL (8.4-10.5); GFR NON-AFRICAN AMERICAN > 60
[2018-01-24] MEDS: Insulin Lispro (humaLOG) MEDIUM Coverage SC SCH ×4 (09:04→22:00)
[2018-01-24] MEDS: Magnesium Oxide 400 mg Tab UD PO SCH (09:22)
[2018-01-24] MEDS: RANOLAZINE 500 MG PO SCH ×2 (09:24→17:17)
[2018-01-24] MEDS: Vancomycin 1gm in NS 250ml 1 GM/250 ML BAG IVPB SCH ×2 (09:26→21:21)
--- NOTE | 2018-01-24 12:27 | PN ---
DATE: 01/24/2018 SUBJECTIVE: The patient is in bed, in no acute distress, nontoxic. PHYSICAL EXAMINATION: VITAL SIGNS: On exam, exam, temperature is 98, blood pressure is 140/70, respiratory rate of 16. HEENT: Unremarkable. NECK: Supple. LUNGS: Have decreased breath sounds. HEART: Normal S1, S2. ABDOMEN: Soft, nontender. LABORATORY DATA: Laboratory examination reveals a white count of 7.5, hemoglobin of 9, platelets of 176. BUN of 7, creatinine of 0.8 and urinalysis is noted. Serology is noted. Microbiology reveals the blood cultures negative. Urine cultures negative. The patient's CAT scan of the abdomen and pelvis is reviewed. Stable well-formed fluid collection interposed between the sigmoid and sacrum. Review of orders reveals the patient to be on meropenem and vancomycin. Dr. Felton Davies's note is reviewed. ASSESSMENT AND PLAN: A 77-year-old male with extensive past medical history, now admitted with a fever of 100.5 and intra-abdominal collection on CAT scan. Has multiple allergies and history of coronary artery disease, coronary artery stents, angioplasty, high cholesterol, hyperlipidemia, hypertension, diabetes, mantle cell lymphoma and prostate disease, benign prostatic hyperplasia, recent abdominal surgery, reversal of colostomy and also history of lung biopsy. We will check on the final culture results. Awaiting for Dr. Je Horne to review the CAT scan and see if it is possible for Invasive Radiology to do a CT-guided aspiration of the collection. Marvin Callahan MD
--- NOTE | 2018-01-24 12:48 | MRI ---
Date of service: 01/23/2018 PROCEDURE: MR LUMBAR SPINE WITHOUT CONTRAST HISTORY: leg pain COMPARISON: None available. TECHNIQUE: Multiecho multiplanar sequences were performed through the lumbar spine without the use of intravenous contrast. FINDINGS: Normal lumbar lordosis. Vertebral body heights are preserved. Marrow signal unremarkable. Conus medullaris unremarkable at the level of T12 Paraspinal soft tissues are unremarkable. T12-L1: No disc herniation, spinal canal stenosis or neural foraminal narrowing. L1-2: No disc herniation, spinal canal stenosis or neural foraminal narrowing. L2-3: No disc herniation, spinal canal stenosis or neural foraminal narrowing. L3-4: No disc herniation, spinal canal stenosis or neural foraminal narrowing. L4-5: There is a disc bulge with facet arthropathy and ligamentum flavum hypertrophy. This produces moderate to severe central canal stenosis and mild foraminal stenosis L5-S1: Moderate facet arthropathy OTHER FINDINGS: None. IMPRESSION: L4-5.There is a disc bulge with facet arthropathy and ligamentum flavum hypertrophy. This produces moderate to severe central canal stenosis and mild foraminal stenosis L5-S1. Moderate facet arthropathy
[2018-01-24] MEDS: SILODOSIN 8 MG PO SCH (17:24)
--- NOTE | 2018-01-24 19:11 | PN ---
DATE: 01/24/2018 This is [facility] visit on the TCU floor. For Dr. Myers. SUBJECTIVE: The patient is a 77-year-old male, seen, sitting up in bed, status post reversal of colostomy recently, now admitted for fever with fluid collection noted on testing in his sacral area with the patient otherwise reporting that his discomfort has improved with the patient tolerating his diet. He continues on his IV antibiotics as per Infectious Disease new vehicle sales consultant's recommendation. 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 PHYSICAL EXAMINATION: GENERAL: He appears frail. VITAL SIGNS: Temperature 99, pulse 85, respirations 18, blood pressure 142/77 and pulse oximetry 97%. HEENT: Tongue is coated with a black film, status post treatment in the past with antifungal medications. Decreased hearing noted. NECK: Supple. HEART: Regular rate, 1/6 systolic ejection murmur. LUNGS: Clear. ABDOMEN: Protuberant, soft, status post reversal of colostomy. EXTREMITIES: No edema. SKIN: Warm and dry. NEUROLOGIC: Awake and alert. LABORATORY DATA: The patient's labs were done; white blood cell count 7.5, hemoglobin 9.3, hematocrit 28.9, platelet count of 176,000 with a chem metabolic panel showing a nonfasting glucose of 130, calcium 8.1, and alkaline phosphatase 158, otherwise normal chem panel. Urine culture showed no growth, blood cultures, no growth. However, his CT scan of the abdomen and pelvis done two days prior showed decreased inflammatory changes in the sigmoid anastomotic suture line, stable fluid collection interpose between the sigmoid and the sacrum. The patient did have a lumbar spine MRI done yesterday and it was read as L4 disc bulge with facet arthropathy and ligamentum flavum hypertrophy producing [id number] central canal stenosis, mild foraminal stenosis and L5-S1 moderate facet arthropathy. MRI of the pelvis was done but has not been read. ASSESSMENT: Fever of unknown origin, fluid collection in the sacral area, history of mantle-cell lymphoma, atherosclerotic cardiovascular disease status post stenting, angioplasty, hypertension, diabetes, benign prostatic hypertrophy and status post colostomy reversal. PLAN: After conversation with Dr. Myers is to continue his present medical regimen with IV antibiotics. We appreciate consult with Dr. Lei as he reports collection remains not amenable to percutaneous drainage secondary to vascular structures and iliac bone. We will monitor clinically and with labs with further recommendations as indicated. This is a complex patient with comprehensive medically necessary and appropriate visit carried out in excess of 30 minutes with the patient's questions answered to his satisfaction. His also a physician, her questions were also answered to her satisfaction. Ted Santoyo MD
[2018-01-25] MEDS: Meropenem IV 1 gm in NS 1 GM/50 ML BAG IVPB SCH ×3 (05:48→21:52)
[2018-01-25 07:06] LABS: BASO # 0.04 K/mm3 (0.0-2.0); BASO % 0.7 % (0.0-3.0); EOS # 0.2 (0.0-0.7); EOS % 3.3 % (1.5-5.0); GRAN # 3.93 (1.4-6.5); GRAN % 68.2 % (50.0-68.0); HEMOGLOBIN 8.8 g/dL (14.0-18.0); LYMPH # 1.2 (1.2-3.4); LYMPH % 20.5 % (22.0-35.0); MEAN CELL VOLUME 86.2 fl (80.0-105.0); MEAN CORPUSCULAR HEMOGLOBIN 28.3 pg (25.0-35.0); MEAN CORPUSCULAR HGB CONC 32.8 g/dl (31.0-37.0); MEAN PLATELET VOLUME 10.1 fl (7.0-11.0); MONO # 0.4 (0.1-0.6); MONO % 7.3 % (1.0-6.0); RBC 3.11 10^6/uL (3.5-6.1); RED CELL DISTRIBUTION WIDTH 14.9 % (11.5-14.5); WHITE BLOOD COUNT 5.8 10^3/uL (4.5-11.0)
[2018-01-25] MEDS: Levalbuterol 0.63 MG/3 ML Inhal Soln UD IH SCH ×3 (07:30→19:30)
[2018-01-25 07:42] LABS: ALB/GLOB RATIO 0.9 (1.1-1.8); ALBUMIN 2.7 g/dL (3.0-4.8); ALT/SGPT 38 U/L (7-56); AST/SGOT 40 U/L (17-59); BLOOD UREA NITROGEN 8 mg/dL (7-21); CALCIUM 8.3 mg/dL (8.4-10.5); GFR NON-AFRICAN AMERICAN > 60
[2018-01-25] MEDS: Insulin Lispro (humaLOG) MEDIUM Coverage SC SCH ×4 (08:15→21:51)
[2018-01-25] MEDS: Vancomycin 1gm in NS 250ml 1 GM/250 ML BAG IVPB SCH ×2 (09:53→19:51)
[2018-01-25] MEDS: Magnesium Oxide 400 mg Tab UD PO SCH (09:53)
[2018-01-25] MEDS: RANOLAZINE 500 MG PO SCH ×2 (09:56→18:49)
--- NOTE | 2018-01-25 11:34 | MRI ---
Date of service: 01/23/2018 PROCEDURE: MRI of the pelvis without contrast HISTORY: leg pain COMPARISON: CT 01/23/2018 TECHNIQUE: MRI of the pelvis was performed in multiple planes using multiple pulse sequences. FINDINGS: As seen on the CT study there is a well-defined fluid collection in the presacral space. This measures 54 x 28 by 66 mm. This is consistent with an abscess. There are no bony abnormalities seen. There is no adenopathy. The bladder and prostate are unremarkable. There is a small left inguinal hernia. A portion of the bladder extends into the hernia. IMPRESSION: well-defined fluid collection in the presacral space. This measures 54 x 28 by 66 mm. This is consistent with an abscess.
--- NOTE | 2018-01-25 12:23 | PN ---
DATE: 01/25/2018 SUBJECTIVE: The patient seen earlier this morning, sitting in the room. The patient did not have any fevers last night, just low grade temperature. He is comfortable. He is still having pain in the legs. PHYSICAL EXAMINATION: VITAL SIGNS: On exam, temperature is 99, blood pressure is 118/60, respiratory rate 18 and heart rate of 80 to 92. HEENT: Unremarkable. NECK: Supple. LUNGS: Have decreased breath sounds. HEART: Normal S1 and S2. ABDOMEN: Soft and nontender. LABORATORY DATA: Reveals a white count of 5.8, hemoglobin of 8. Chemistries, BUN of 8 and creatinine is . Microbiology; blood cultures are negative. Urine cultures are negative. CAT scan of the abdomen and pelvis is noted. ASSESSMENT AND PLAN: A 77-year-old male with extensive past medical history admitted with fever and intra-abdominal collection on CAT scan with MULTIPLE ALLERGIES. The patient had history of coronary artery disease, angioplasty, high cholesterol, hyperlipidemia, hypertension, diabetes, mantle cell lymphoma, prostate disease, benign prostatic hyperplasia, recent abdominal surgery. He also had a colostomy reversal and waiting for Dr. Je Horne to evaluate regarding the collection, possible invasive radiology to do CAT scan directed aspiration of the collection in the abdomen. We will continue meropenem and vancomycin. We will follow with you. Marvin Callahan MD
[2018-01-25] MEDS ORDERED: Potassium Chloride 20 mEq ER Tab PO ONE (12:36)
[2018-01-25] MEDS: SILODOSIN 8 MG PO SCH (18:49)
--- NOTE | 2018-01-25 19:46 | PN ---
DATE: 01/25/2018 This is [facility] visit on the telemetry floor. For Dr. Myers. SUBJECTIVE: The patient is a 77-year-old male, seen lying, awake in bed, status post reversal of colostomy with fluid collection noted on recent testing, unable to be drained as per Dr. Lei, with the patient now continuing on his present medical regimen including IV antibiotics with Plavix continuing for now. He was out of bed, ambulating today, with potassium noted to be on the low side to be corrected. He is otherwise without complaint after some early leg discomfort which is no longer a problem. He suffers from mantle cell lymphoma and hypogammaglobulinemia in addition to multiple other disease process listed below. PHYSICAL EXAMINATION VITAL SIGNS: Temperature 97.8, pulse 82, respirations 19, blood pressure 118/68, pulse ox 94%. HEENT: Unremarkable. NECK: Supple. HEART: Regular rate, I/ systolic ejection murmur. LUNGS: Clear. ABDOMEN: Protuberant, soft, with scarring status post reversal of colostomy. No signs of infection. EXTREMITIES: No edema. SKIN: Warm and dry. NEUROLOGIC: Awake and alert. LABORATORY DATA: The patient's labs were done; white blood cell count of 5.8, hemoglobin 8.8, hematocrit 26.8, platelet count of 180,000, with a chem metabolic panel showing a potassium of 3.5 which has since been corrected, nonfasting glucose of 195, calcium of 8.3 and alkaline phosphatase of 141. The patient's urine culture showed no growth, blood culture showed no growth dated from 3 days ago. The patient did have an MRI of the pelvis done 2 days prior, read as a well-defined fluid collection in the presacral area measuring 54 x 28 x 66 mm consistent with an abscess. ASSESSMENT: For this patient is that of presacral abscess; mantle cell lymphoma; hypogammaglobulinemia; diabetes mellitus; hypertension; BPH; status post colostomy reversal; atherosclerotic cardiovascular disease, status post stenting and angioplasty. PLAN: For this patient is to continue on antibiotics. We will discontinue his IV fluids in the interim with consideration to hold Plavix in anticipation of possible drainage of the abscess in the near future if possible. He also is hypokalemic which is corrected, with anemic indices which will be monitored. This is a complex patient with comprehensive medically necessary and appropriate visit carried out in excess of 25 minutes with the patient's questions answered to his satisfaction. Ted Santoyo MD
[2018-01-26] MEDS: Meropenem IV 1 gm in NS 1 GM/50 ML BAG IVPB SCH ×3 (05:46→22:29)
[2018-01-26] MEDS: Levalbuterol 0.63 MG/3 ML Inhal Soln UD IH SCH ×3 (07:37→21:24)
[2018-01-26 07:51] LABS: BASO # 0.04 K/mm3 (0.0-2.0); BASO % 0.8 % (0.0-3.0); EOS # 0.3 (0.0-0.7); EOS % 5.4 % (1.5-5.0); GRAN # 2.98 (1.4-6.5); GRAN % 61.7 % (50.0-68.0); HEMOGLOBIN 8.3 g/dL (14.0-18.0); LYMPH # 1.2 (1.2-3.4); MEAN CELL VOLUME 86.6 fl (80.0-105.0); MEAN CORPUSCULAR HEMOGLOBIN 27.9 pg (25.0-35.0); MEAN CORPUSCULAR HGB CONC 32.2 g/dl (31.0-37.0); MEAN PLATELET VOLUME 9.8 fl (7.0-11.0); MONO # 0.4 (0.1-0.6); MONO % 8.1 % (1.0-6.0); RBC 2.98 10^6/uL (3.5-6.1); RED CELL DISTRIBUTION WIDTH 14.9 % (11.5-14.5); WHITE BLOOD COUNT 4.8 10^3/uL (4.5-11.0)
[2018-01-26 08:05] LABS: ALB/GLOB RATIO 0.9 (1.1-1.8); ALBUMIN 2.6 g/dL (3.0-4.8); ALT/SGPT 36 U/L (7-56); AST/SGOT 36 U/L (17-59); BLOOD UREA NITROGEN 10 mg/dL (7-21); CALCIUM 8.1 mg/dL (8.4-10.5); GFR NON-AFRICAN AMERICAN > 60
[2018-01-26] MEDS: Insulin Lispro (humaLOG) MEDIUM Coverage SC SCH ×4 (08:35→21:42)
[2018-01-26] MEDS: Vancomycin 1gm in NS 250ml 1 GM/250 ML BAG IVPB SCH ×2 (08:35→20:33)
[2018-01-26] MEDS: Magnesium Oxide 400 mg Tab UD PO SCH (10:03)
[2018-01-26] MEDS: RANOLAZINE 500 MG PO SCH ×2 (10:05→17:08)
--- NOTE | 2018-01-26 11:17 | PN ---
DATE: 01/26/2018 SUBJECTIVE: The patient is in bed, in no acute distress, nontoxic. PHYSICAL EXAMINATION: VITAL SIGNS: Temperature is 98, blood pressure is 125/60 and respiratory rate of 18. HEENT: Unremarkable. NECK: Supple. LUNGS: Have decreased breath sounds. HEART: Normal S1 and S2. ABDOMEN: Soft and nontender. No organomegaly. No rebound or guarding. No masses. LABORATORY EXAMINATION: Reveals the white count is 4.8, hemoglobin of 8 and platelets of 181,000. BUN of 10 and creatinine of 0.8. Microbiology reveals the blood cultures are negative and urine cultures are negative. ASSESSMENT AND PLAN: This is a 77-year-old male with extensive past medical history significant for fever and intra-abdominal collection on CT scan, MULTIPLE ALLERGIES, coronary artery disease, angioplasty, high cholesterol, hyperlipidemia, hypertension, diabetes, mantle cell lymphoma, prostate disease, benign prostatic hyperplasia, recent abdominal surgery, colostomy reversal. Awaiting for Dr. Je Horne's evaluation of the collection on the CT of the abdomen. Currently, on vancomycin and meropenem with negative blood cultures, negative urine cultures and normal creatinine, and we will order a vancomycin trough level on the next dose. Review of medications, reveals the patient's vancomycin to be at 8:15 in the morning and at night. We will order a vancomycin trough level at 1915 tonight, vancomycin trough level. Marvin Callahan MD
[2018-01-26] MEDS: SILODOSIN 8 MG PO SCH (17:08)
--- NOTE | 2018-01-26 18:34 | PN ---
DATE: 01/26/2018 NEUROLOGY FOLLOWUP CHIEF COMPLAINT: Followup for leg pain. SUBJECTIVE: The patient was seen and examined at bedside, has mild low back pain, otherwise he is okay. He has intraabdominal collection seen on his pelvic MRI, also on his lumbosacral MRI he has [id number] central canal stenosis at L4-L5 with mild foraminal stenosis, but no cord contusion or compression. He will need physical therapy. PAST SURGICAL HISTORY: History of stage IV mantle cell lymphoma and lung cancer, status post wedge resection; hypogammaglobulinemia; coronary artery disease, status post stent placement; diabetes; hypertension; COPD; perforated sigmoid diverticulosis, status post Milli's procedure, colostomy reversal. REVIEW OF SYSTEMS: A 14-point review of systems is negative except as per the HPI. ALLERGIES: TO AZITHROMYCIN, PENICILLIN, CEPHALEXIN. MEDICATIONS: Reviewed by nurse's reconciliation sheet. SOCIAL HISTORY: No illicit drug use, smoking, or EtOH abuse. FAMILY HISTORY: Noncontributory. LABORATORY DATA: Sodium 135, potassium 3.6, chloride 104, carbon dioxide 27, BUN 10, creatinine 0.8, random glucose 139. PHYSICAL EXAMINATION: VITAL SIGNS: Temperature 98.6, pulse rate 71, blood pressure 122/69, respiratory rate 19, and oxygen saturation 96% on room air. GENERAL: The patient is sitting up in bed, in no acute distress. HEENT: Atraumatic, normocephalic. PERRLA. Extraocular muscles intact. NECK: Supple. No JVD. No adenopathy noted. LUNGS: Clear to auscultation. No adventitious sounds. HEART: S1, S2. Normal rate and rhythm. No murmurs, rubs, or gallops. ABDOMEN: Soft, nontender, nondistended. Bowel sounds present. EXTREMITIES: No clubbing, no cyanosis. Peripheral pulses 2+ bilaterally. NEUROLOGICAL: The patient is alert and oriented to person, place, month, and year. Speech is fluent without any errors. Cranial nerves II through XII are intact. Motor Exam: Moves all extremities equally. No pronator drift seen. Mildly deconditioned. Sensory: Decreased light touch and pinprick up to the calves bilaterally. Decreased vibration of the toes. DTRs are 2+, and 1 in both knees and ankles. Coordination: [id number] intact. No dysmetria noted. Gait is deferred for now. IMPRESSION: Bilateral leg pain secondary to neuropathy, superimposed underlying chronic lumbosacral neuritis, especially at L4-L5 based on the MRI. He also has a pelvic abscess postop, which has been evaluated by Interventional Radiology for possible drainage. RECOMMENDATIONS: 1. We will also at this time recommend continuing with Interventional Radiology recommendation for possible pelvic abscess drainage. 2. Aspirin 81, Plavix 75, and Lipitor 20 for stroke prevention. 3. Monitor electrolytes and correct accordingly. 4. Physical and occupational therapy for the lumbosacral pain and continue current present medical management. Leighton Davies MD
--- NOTE | 2018-01-26 21:45 | PN ---
DATE: 01/26/2018 This is [facility]'s [facility] visit on the medical floor. For Dr. Myers. SUBJECTIVE: The patient is a 77-year-old male, seen lying, awake in bed, status post reversal of colostomy with fluid/abscess collection noted on recent testing with initial evaluation suggesting not amenable to draining. The patient is now continuing antibiotics with Plavix also continuing for now. The patient is complaining of vague abdominal discomfort as his only complaint; however, he is postop reversal of colostomy recently. The patient then discharged home after being on transitional care only to be readmitted for fever of unknown origin, now likely due to fluid collection with questionable leak at the anastomosis site. He also suffers from mantle cell lymphoma with hypogammaglobinemia and ASCVD. At present, his hemoglobin appears to be little minimally lower we will monitor this. As per surgical consult as this may be a postop complication and originally not noted. We will also type and cross for 2 units of packed red blood cells to be on hold. The next labs in the morning should his hemoglobin drop any further, we will also add oxygen 2 L nasal cannula humidified to his regimen. He is otherwise in no acute distress this visit. OBJECTIVE: VITAL SIGNS: Temperature 98.8, pulse 82, respirations 20, blood pressure 100/58, and pulse ox 94%. HEENT: Unremarkable except for a grayish tinged tongue. NECK: Supple. HEART: Regular rate, I/ systolic ejection murmur. LUNGS: Relatively clear. ABDOMEN: Protuberant and soft with well-healed scarring, status post reversal of colostomy, no signs of infection. EXTREMITIES: No edema. SKIN: Warm and dry. NEUROLOGIC: Awake and alert. LABORATORY DATA: The patient's labs were done; white blood cell count of 4800, hemoglobin 8.3 down from 9.3 two days prior, with IV fluids now being discontinued, hematocrit 25.8, platelet count of 181,000 with a chem metabolic panel showing a nonfasting glucose of 121, alk phos 130, and total protein 5.5. ASSESSMENT: Fluid collection/abscess in the pelvic and sacral area, questionable anastomotic leak, postoperative reversal of colostomy, mantle cell lymphoma history, atherosclerotic cardiovascular disease, angioplasty, hypertension, diabetes, benign prostatic hypertrophy with fever of unknown origin possibly due to abscess and anemia of chronic disease. PLAN: Type and cross for 2 units of packed red blood cells on hold in the morning to be transfused should be anemic indices persists. We will add oxygen to his regimen. We will await Dr. Je Horne to evaluate with consideration for drainage of his abscess as indicated. Consult with Dr. Casiano with whom I reviewed the above findings earlier today at length. This is a complex patient with a comprehensive medically necessary appropriate visit carried out in excess of 40 minutes with the patient's questions were answered to his satisfaction. Ted Santoyo MD
[2018-01-27] MEDS: Meropenem IV 1 gm in NS 1 GM/50 ML BAG IVPB SCH ×3 (05:53→21:49)
--- NOTE | 2018-01-27 06:22 | CP.PCM.CON ---
History of Present Illness - History of Present Illness History of Present Illness: Surgery: Dr. Lamb covering for Dr. Pabon Reason for consult: pelvic fluid collection s/p Rob's reversal on 01/01/2018 CC: leg coolness and fever at home HPI: Patient is a 77 y/o male who presented on 01/22 complaining of bilateral leg coolness and fever at home. He also states he has pressure in his pelvis like he has to have a bowel movement. He denies n/v. He reports subjective fever at home and 1x episode of fever since admission to 100.5. He reports tolerating diet however since recent admission appetite has been poor. He reports resolution of diarrhea but states his stool remains soft. No black stools or bloody stools. He denies pain to the abdomen. PMHx: Stage IV mantle cell lymphoma (quiescence), lung cancer, hypoglobulinemia, CAD s/p stent placement, DM2, HTN, COPD, and diverticular disease PSHx: Rob procedure, Colostomy reversal, and lung wedge resection Social History: Denies any tobacco, alcohol or illicit drug abuse Review of Systems - Constitutional Constitutional: Chills, Fever. absent: Anorexia - EENT Eyes: absent: Blind Spots, Blurred Vision Ears: absent: Disequilibrium, Dizziness Nose/Mouth/Throat: absent: Nasal Trauma, Nose Pain - Cardiovascular Cardiovascular: absent: Chest Pain, Edema - Respiratory Respiratory: absent: Cough, Wheezing - Gastrointestinal Gastrointestinal: Bloating, Temesmus. absent: Abdominal Pain, Constipation, Cramping, Diarrhea, Hematemesis, Hematochezia, Loose Stools, Nausea, Vomiting - Genitourinary Genitourinary: absent: Hematuria, Pyuria - Reproductive: Male Reproductive:Male: Pelvic Pain - Musculoskeletal Musculoskeletal: Stiffness. absent: Tingling - Integumentary Integumentary: absent: Skin Ulcer, Sores - Neurological Neurological: absent: Syncope, Tingling - Psychiatric Psychiatric: absent: Confusion, Depression - Endocrine Endocrine: absent: Polydipsia, Polyphagia - Hematologic/Lymphatic Hematologic: absent: Easy Bleeding, Easy Bruising Past Patient History - Infectious Disease Hx of Infectious Diseases: None - Tetanus Immunizations Tetanus Immunization: Unknown - Past Medical History & Family History Past Medical History?: Yes - Past Social History Smoking Status: Never Smoked - CARDIAC Hx Cardiac Disorders: Yes (CAD, S/P 4 cardiac stents AND 2 STENTS ON 01/08/2018, [place]) Hx Hypertension: Yes - PULMONARY Hx Respiratory Disorders: Yes Hx Pneumonia: Yes - NEUROLOGICAL Hx Paralysis: No - HEENT Hx HEENT Problems: Yes Hx Cataracts: (h0h b/lhearing aid) - RENAL Hx Chronic Kidney Disease: No - ENDOCRINE/METABOLIC Hx Diabetes Mellitus Type 2: Yes - HEMATOLOGICAL/ONCOLOGICAL Hx Blood Transfusions: Yes Hx Blood Transfusion Reaction: No - INTEGUMENTARY Hx Dermatological Problems: No - MUSCULOSKELETAL/RHEUMATOLOGICAL Hx Falls: No - GASTROINTESTINAL Hx Gastrointestinal Disorders: Yes (Post perfrorated sigmond colon-post exploratory lap sigmoidectomy,colostomy) - GENITOURINARY/GYNECOLOGICAL Hx Genitourinary Disorders: Yes - PSYCHIATRIC Hx Substance Use: No - SURGICAL HISTORY Hx Cardiac Catheterization: Yes (sents x4) Hx Musculoskeletal Surgery: Yes Hx Open Heart Surgery: Yes - ANESTHESIA Hx Anesthesia: Yes Hx Anesthesia Reactions: No Hx Malignant Hyperthermia: No Meds Allergies/Adverse Reactions: Allergies Allergy/AdvReac Type Severity Reaction Status Date / Time azithromycin Allergy Severe ANGIOEDEMA Verified 01/09/18 19:42 erythromycin base Allergy Severe ANGIOEDEMA Verified 01/09/18 19:42 Penicillins Allergy Severe ANAPHYLAXIS Verified 01/09/18 19:42 cephalexin monohydrate Allergy Intermediate RASH Verified 01/09/18 19:42 [From Keflex] gabapentin Allergy Intermediate RASH Verified 01/09/18 19:42 pregabalin Allergy Intermediate RASH Verified 01/09/18 19:42 Sulfa (Sulfonamide Allergy Intermediate RASH Verified 01/09/18 19:42 Antibiotics) nitro paste Allergy Intermediate DIZZINESS/H Uncoded 01/09/18 19:42 YPOTENSION Imbrovica Allergy FEVER Uncoded 01/09/18 19:42 - Medications Medications: Current Medications Acetaminophen (Tylenol 325mg Tab) 650 mg PO Q4H PRN PRN Reason: Fever >100.5 F Last Admin: 01/23/18 17:22 Dose: 650 mg Atorvastatin Calcium (Lipitor) 20 mg PO QPM [facility] Last Admin: 01/26/18 17:06 Dose: 20 mg Clopidogrel Bisulfate (Plavix) 75 mg PO DAILY [facility] Last Admin: 01/26/18 10:03 Dose: 75 mg Ezetimibe (Zetia) 10 mg PO DAILY [facility] Last Admin: 01/26/18 10:03 Dose: 10 mg Meropenem (Merrem Iv 1 Gm Premix) 1 gm in 50 mls @ 100 mls/hr IVPB Q8 [facility]; Protocol Stop: 02/01/18 14:01 Last Admin: 01/27/18 05:53 Dose: 100 mls/hr Vancomycin HCl (Vancomycin 1gm) 1 gm in 250 mls @ 167 mls/hr IVPB Q12H [facility]; Protocol Stop: 02/01/18 08:16 Last Admin: 01/26/18 20:33 Dose: 167 mls/hr Insulin Human Lispro (Humalog Med) 0 units SC ACHS [facility]; Protocol Last Admin: 01/26/18 21:42 Dose: Not Given Levalbuterol HCl (Xopenex) 0.63 mg IH TIDRESP [facility] Last Admin: 01/26/18 21:24 Dose: 0.63 mg Magnesium Oxide (Mag-Ox) 400 mg PO DAILY [facility] Last Admin: 01/26/18 10:03 Dose: 400 mg Metoprolol Tartrate (Lopressor) 12.5 mg PO QPM [facility] Last Admin: 01/26/18 17:06 Dose: 12.5 mg Montelukast Sodium (Singulair) 10 mg PO QPM [facility] Last Admin: 01/26/18 17:06 Dose: 10 mg Ranolazine [Ranexa] (500 Mg (Home)) 500 mg PO BID [facility] Last Admin: 01/26/18 17:08 Dose: 500 mg Silodosin [Rapaflo] (8 Mg) (Home Med)) 8 mg PO QPM [facility] Last Admin: 01/26/18 17:08 Dose: 8 mg Oxybutynin Chloride (Ditropan Tab) 5 mg PO HS [facility] Last Admin: 01/26/18 21:32 Dose: 5 mg Physical Exam - Constitutional Appears: Non-toxic, No Acute Distress - Head Exam Head Exam: ATRAUMATIC, NORMOCEPHALIC - Eye Exam Eye Exam: EOMI, Normal appearance - ENT Exam ENT Exam: Mucous Membranes Moist - Respiratory Exam Respiratory Exam: NORMAL BREATHING PATTERN. absent: Respiratory Distress - Cardiovascular Exam Cardiovascular Exam: REGULAR RHYTHM. absent: Tachycardia - GI/Abdominal Exam GI & Abdominal Exam: Soft. absent: Distended, Guarding, Rebound, Tenderness - Rectal Exam Rectal Exam: Deferred - Extremities Exam Extremities exam: Positive for: normal inspection. Negative for: calf tenderness - Neurological Exam Neurological exam: Alert, Oriented x3 - Psychiatric Exam Psychiatric exam: Normal Affect, Normal Mood - Skin Skin Exam: Normal Color, Warm Results - Vital Signs Recent Vital Signs: Last Vital Signs Temp 99.3 F 01/26/18 21:00 Pulse 73 01/26/18 21:00 Resp 20 01/26/18 21:00 BP 111/60 01/26/18 21:00 Pulse Ox 99 01/26/18 21:00 - Labs Result Diagrams: 01/26/18 07:30 01/26/18 07:30 Labs: Laboratory Results - last 24 hr 01/26/18 01/26/18 01/26/18 07:30 07:30 08:08 WBC 4.8 RBC 2.98 L Hgb 8.3 L Hct 25.8 L MCV 86.6 MCH 27.9 MCHC 32.2 RDW 14.9 H Plt Count 181 MPV 9.8 Gran % 61.7 Lymph % (Auto) 24.0 [place] % (Auto) 8.1 H Eos % (Auto) 5.4 H Baso % (Auto) 0.8 Gran # 2.98 Lymph # (Auto) 1.2 [place] # (Auto) 0.4 Eos # (Auto) 0.3 Baso # (Auto) 0.04 Sodium 135 Potassium 3.6 Chloride 104 Carbon Dioxide 27 Anion Gap 7 L BUN 10 Creatinine 0.8 Est GFR ( Amer) > 60 Est GFR (Non-Af Amer) > 60 POC Glucose (mg/dL) 123 H Random Glucose 139 H Calcium 8.1 L Total Bilirubin 0.4 AST 36 ALT 36 Alkaline Phosphatase 130 H Total Protein 5.5 L Albumin 2.6 L Globulin 2.9 Albumin/Globulin Ratio 0.9 L Vancomycin Trough 01/26/18 01/26/18 01/26/18 11:28 16:37 18:55 WBC RBC Hgb Hct MCV MCH MCHC RDW Plt Count MPV Gran % Lymph % (Auto) [place] % (Auto) Eos % (Auto) Baso % (Auto) Gran # Lymph # (Auto) [place] # (Auto) Eos # (Auto) Baso # (Auto) Sodium Potassium Chloride Carbon Dioxide Anion Gap BUN Creatinine Est GFR ( Amer) Est GFR (Non-Af Amer) POC Glucose (mg/dL) 156 H 121 H Random Glucose Calcium Total Bilirubin AST ALT Alkaline Phosphatase Total Protein Albumin Globulin Albumin/Globulin Ratio Vancomycin Trough 18.6 H* 01/26/18 21:30 WBC RBC Hgb Hct MCV MCH MCHC RDW Plt Count MPV Gran % Lymph % (Auto) [place] % (Auto) Eos % (Auto) Baso % (Auto) Gran # Lymph # (Auto) [place] # (Auto) Eos # (Auto) Baso # (Auto) Sodium Potassium Chloride Carbon Dioxide Anion Gap BUN Creatinine Est GFR ( Amer) Est GFR (Non-Af Amer) POC Glucose (mg/dL) 125 H Random Glucose Calcium Total Bilirubin AST ALT Alkaline Phosphatase Total Protein Albumin Globulin Albumin/Globulin Ratio Vancomycin Trough - Impressions Impression: CT with pelvic fluid collection in pelvis Assessment & Plan - Assessment and Plan (Free Text) Assessment: 77 y/o male w/ pelvic fluid collection s/p Rob's reversal Plan: -f/u IR evaluation -would consider making NPO for sunday if Dr. Horne able to drain -cont diet for now -cont abx per ID -no acute surgical intervention at this time -further recs per Dr. Lamb covering for Dr. Pabon [facility] PGY4
[2018-01-27 06:49] LABS: BASO # 0.03 K/mm3 (0.0-2.0); BASO % 0.6 % (0.0-3.0); EOS # 0.3 (0.0-0.7); EOS % 6.4 % (1.5-5.0); HEMOGLOBIN 8.7 g/dL (14.0-18.0); LYMPH # 1.3 (1.2-3.4); LYMPH % 25.2 % (22.0-35.0); MEAN CELL VOLUME 86.7 fl (80.0-105.0); MEAN CORPUSCULAR HEMOGLOBIN 27.5 pg (25.0-35.0); MEAN CORPUSCULAR HGB CONC 31.8 g/dl (31.0-37.0); MEAN PLATELET VOLUME 10.3 fl (7.0-11.0); MONO # 0.4 (0.1-0.6); MONO % 7.8 % (1.0-6.0); RBC 3.16 10^6/uL (3.5-6.1); RED CELL DISTRIBUTION WIDTH 14.8 % (11.5-14.5)
[2018-01-27 07:00] LABS: ALB/GLOB RATIO 0.9 (1.1-1.8); ALBUMIN 2.7 g/dL (3.0-4.8); ALT/SGPT 40 U/L (7-56); AST/SGOT 33 U/L (17-59); BLOOD UREA NITROGEN 8 mg/dL (7-21); GFR NON-AFRICAN AMERICAN > 60
[2018-01-27] MEDS: Levalbuterol 0.63 MG/3 ML Inhal Soln UD IH SCH ×3 (07:41→20:46)
[2018-01-27] MEDS: Vancomycin 1gm in NS 250ml 1 GM/250 ML BAG IVPB SCH ×2 (08:29→22:53)
[2018-01-27] MEDS: Insulin Lispro (humaLOG) MEDIUM Coverage SC SCH ×4 (08:29→21:49)
[2018-01-27] MEDS: Magnesium Oxide 400 mg Tab UD PO SCH (10:02)
[2018-01-27] MEDS: RANOLAZINE 500 MG PO SCH ×2 (10:04→17:26)
--- NOTE | 2018-01-27 13:28 | PN ---
DATE: 01/27/2018 SUBJECTIVE: The patient is in bed, in no acute distress, nontoxic. PHYSICAL EXAMINATION: VITAL SIGNS: Temperature is 98, blood pressure is 110/60, respiratory rate of 18. HEENT: Unremarkable. NECK: Supple. LUNGS: Have decreased breath sounds. HEART: Normal S1, S2. ABDOMEN: Soft. LABORATORY DATA: Laboratory examination reveals a white count of 5, hemoglobin of 8, platelets of 189. BUN of 8, creatinine of 0.8. Urinalysis is noted and vanco trough level 18.6 is noted. Influenza is negative. Microbiology reveals the blood cultures are negative. The urine culture is negative and the patient's creatinine is holding at 0.8. Review of orders reveals the patient to have meropenem and vancomycin. ASSESSMENT AND PLAN: A 77-year-old male with extensive past medical history significant for mantle cell lymphoma, prostate disease, benign prostatic hyperplasia, hypertension, hyperlipidemia, diabetes, high cholesterol, coronary artery disease, angioplasty, who had abdominal surgery and colostomy reversal which was complicated for prolonged hospitalization, now returns to his questionable ____ intra-abdominal collection on CAT scan. Awaiting for Dr. Je Horne's invasive radiology to review the CAT scan and give us an opinion, on whether it can be drained by CT-guided drainage and cultured. Currently on vancomycin and meropenem. We will follow with you. Marvin Callahan MD
[2018-01-27] MEDS: SILODOSIN 8 MG PO SCH (17:27)
--- NOTE | 2018-01-27 22:43 | PN ---
DATE: 01/27/2018 This is [facility]'s [facility] visit on the medical floor. For Dr. Myers. SUBJECTIVE: The patient is a 77-year-old male, seen lying awake in bed, reporting that he had a more firm bowel movement today. With this, the patient does have a fluid/abscess collection that may be amenable to drain. We await Dr. Je Horne, adoption services manager to see if this is possible tomorrow. In the interim, we will hold his Plavix and aspirin should it be indicated with the patient's other medications to continue. 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 He continues antibiotics as per Dr. Callahan. He also has blood on hold for a hemoglobin that has now improved from 8.3 to 8.7, should be indicated for transfusion. PHYSICAL EXAMINATION: VITAL SIGNS: Temperature 98.3, pulse 77, respirations 20, blood pressure 114/63, and pulse ox 99%. HEENT: Tongue is coated with a grayish debris. NECK: Supple. HEART: Regular rate. LUNGS: Clear. ABDOMEN: Protuberant, soft, well healing scarring, status post reversal of colostomy. EXTREMITIES: No edema. SKIN: Warm and dry. NEUROLOGIC: Awake and alert. LABORATORY DATA: The patient's labs were done; white blood cell count of 5, hemoglobin of 8.7, hematocrit 27.4, platelet count of 189,000 with a chem metabolic panel showing a calcium of 8, alk phos of 136, non-fasting glucose of 134, total protein of 5.7, otherwise normal chem panel. A vancomycin trough level was noted to be 18.4 yesterday. ASSESSMENT: Fluid collection/abscess in the pelvic/sacral area, questionable anastomotic leak, postoperative reversal of colostomy, mantle cell lymphoma history, anemia of chronic disease, atherosclerotic cardiovascular disease, history of angioplasty, on Plavix and aspirin, hypertension, diabetes, benign prostatic hypertrophy, fever of unknown origin, now improved. PLAN: For this patient is to request evaluation by Dr. Je Horne. We will hold Plavix as the patient is off of aspirin at present with Mycelex Troches for his oral candidiasis to be given, type and cross for 2 units of packed red blood cells, on hold for hemoglobin. Today, improved from 8.3 to 8.7. We will check and get in the morning to see whether transfusion may be necessary with further evaluation and drainage of abscess as per Dr. Je Horne with antibiotics to continue in the interim as per Dr. Callahan. This is a complex patient with a comprehensive medically necessary and appropriate visit carried out in excess of 20 minutes with the patient's questions answered to his satisfaction. Ted Santoyo MD
[2018-01-28] MEDS: Meropenem IV 1 gm in NS 1 GM/50 ML BAG IVPB SCH ×3 (05:42→21:36)
[2018-01-28 06:42] LABS: ALB/GLOB RATIO 0.8 (1.1-1.8); ALBUMIN 2.7 g/dL (3.0-4.8); ALT/SGPT 39 U/L (7-56); AST/SGOT 31 U/L (17-59); BLOOD UREA NITROGEN 8 mg/dL (7-21); CALCIUM 8.2 mg/dL (8.4-10.5); GFR NON-AFRICAN AMERICAN > 60
[2018-01-28 06:44] LABS: BASO # 0.03 K/mm3 (0.0-2.0); BASO % 0.6 % (0.0-3.0); EOS # 0.3 (0.0-0.7); EOS % 5.6 % (1.5-5.0); GRAN # 2.76 (1.4-6.5); GRAN % 57.8 % (50.0-68.0); HEMOGLOBIN 8.6 g/dL (14.0-18.0); LYMPH # 1.3 (1.2-3.4); LYMPH % 27.6 % (22.0-35.0); MEAN CORPUSCULAR HEMOGLOBIN 27.3 pg (25.0-35.0); MEAN CORPUSCULAR HGB CONC 31.4 g/dl (31.0-37.0); MEAN PLATELET VOLUME 9.8 fl (7.0-11.0); MONO # 0.4 (0.1-0.6); MONO % 8.4 % (1.0-6.0); RBC 3.15 10^6/uL (3.5-6.1); WHITE BLOOD COUNT 4.8 10^3/uL (4.5-11.0)
--- NOTE | 2018-01-28 07:39 | CP.PCM.PN ---
Subjective - Date & Time of Evaluation Date of Evaluation: 01/28/18 Time of Evaluation: 07:37 - Subjective Subjective: Garth Stallings DO PGY1 - Internal Medicine Chemistry Technologist - Surgical Progress Note Patient seen and examined this AM at bedside; No new complaints offered this AM Afebrile Overnight; No acute events overnight; Labs and Vitals Reviewed Objective - Vital Signs/Intake and Output Vital Signs (last 24 hours): Temp Pulse Resp BP Pulse Ox 98.3 F 77 20 114/63 99 01/27/18 16:51 01/27/18 17:25 01/27/18 16:51 01/27/18 17:25 01/27/18 16:51 - Medications Medications: Current Medications Acetaminophen (Tylenol 325mg Tab) 650 mg PO Q4H PRN PRN Reason: Fever >100.5 F Last Admin: 01/23/18 17:22 Dose: 650 mg Atorvastatin Calcium (Lipitor) 20 mg PO QPM [facility] Last Admin: 01/27/18 17:25 Dose: 20 mg Clopidogrel Bisulfate (Plavix) 75 mg PO DAILY [facility] Last Admin: 01/27/18 10:02 Dose: 75 mg Clotrimazole (Mycelex Gael) 10 mg MT 5XD [facility] Last Admin: 01/28/18 05:43 Dose: 10 mg Ezetimibe (Zetia) 10 mg PO DAILY [facility] Last Admin: 01/27/18 10:02 Dose: 10 mg Meropenem (Merrem Iv 1 Gm Premix) 1 gm in 50 mls @ 100 mls/hr IVPB Q8 [facility]; Protocol Stop: 02/01/18 14:01 Last Admin: 01/28/18 05:42 Dose: 100 mls/hr Vancomycin HCl (Vancomycin 1gm) 1 gm in 250 mls @ 167 mls/hr IVPB Q12H [facility]; Protocol Stop: 02/01/18 08:16 Last Admin: 01/27/18 22:53 Dose: 167 mls/hr Insulin Human Lispro (Humalog Med) 0 units SC ACHS [facility]; Protocol Last Admin: 01/27/18 21:49 Dose: Not Given Levalbuterol HCl (Xopenex) 0.63 mg IH TIDRESP [facility] Last Admin: 01/27/18 20:46 Dose: 0.63 mg Magnesium Oxide (Mag-Ox) 400 mg PO DAILY [facility] Last Admin: 01/27/18 10:02 Dose: 400 mg Metoprolol Tartrate (Lopressor) 12.5 mg PO QPM [facility] Last Admin: 01/27/18 17:25 Dose: 12.5 mg Montelukast Sodium (Singulair) 10 mg PO QPM [facility] Last Admin: 01/27/18 17:26 Dose: 10 mg Ranolazine [Ranexa] (500 Mg (Home)) 500 mg PO BID [facility] Last Admin: 01/27/18 17:26 Dose: 500 mg Silodosin [Rapaflo] (8 Mg) (Home Med)) 8 mg PO QPM [facility] Last Admin: 01/27/18 17:27 Dose: 8 mg Oxybutynin Chloride (Ditropan Tab) 5 mg PO HS [facility] Last Admin: 01/27/18 21:49 Dose: 5 mg - Labs Labs: 01/28/18 06:00 01/28/18 06:00 PT 13.8 SECONDS (9.4-12.5) H 01/22/18 21:42 INR 1.21 01/22/18 21:42 APTT 30.6 Seconds (25.1-36.5) 01/22/18 21:42 Physical Exam - Constitutional Appears: Non-toxic, No Acute Distress - Head Exam Head Exam: ATRAUMATIC, NORMOCEPHALIC - Eye Exam Eye Exam: EOMI, Normal appearance - ENT Exam ENT Exam: Mucous Membranes Moist - Respiratory Exam Respiratory Exam: NORMAL BREATHING PATTERN. absent: Respiratory Distress - Cardiovascular Exam Cardiovascular Exam: REGULAR RHYTHM. absent: Tachycardia - GI/Abdominal Exam GI & Abdominal Exam: Soft. absent: Distended, Guarding, Rebound, Tenderness - Rectal Exam Rectal Exam: Deferred - Extremities Exam Extremities exam: Positive for: normal inspection. Negative for: calf tend erness - Neurological Exam Neurological exam: Alert, Oriented x3 - Psychiatric Exam Psychiatric exam: Normal Affect, Normal Mood - Skin Skin Exam: Normal Color, Warm Assessment and Plan - Assessment and Plan (Free Text) Assessment: 77 y/o male presenting w/ fevers, and pre-sacral pelvic fluid collection s/p Rob's reversal; Surgery consulted for pre-sacral fluid collection. Plan: -IR Evaluation as per Dr. Horne - Reccs Pending -No acute surgical intervention at this time -C/w regular diet at this time; -Abx as per ID -DVT/GI PPX as per primary team -Further reccs per Dr. Lamb, Covering for Dr. Montenegro at this time Garth Stallings DO PGY 1 Internal Medicine Chemistry Technologist - Surgical Progress Note for Dr. Lamb
[2018-01-28] MEDS: Levalbuterol 0.63 MG/3 ML Inhal Soln UD IH SCH ×3 (07:47→19:48)
[2018-01-28] MEDS: Insulin Lispro (humaLOG) MEDIUM Coverage SC SCH ×4 (07:52→21:36)
[2018-01-28] MEDS: RANOLAZINE 500 MG PO SCH ×2 (09:10→17:22)
[2018-01-28] MEDS: Magnesium Oxide 400 mg Tab UD PO SCH (09:11)
[2018-01-28] MEDS: Vancomycin 1gm in NS 250ml 1 GM/250 ML BAG IVPB SCH ×2 (09:29→10:17)
[2018-01-28] MEDS ORDERED: Iohexol 240 (50 ml) ONE (11:00)
[2018-01-28] MEDS ORDERED: Aluminum Hydrox Gel 320 mg/5 ml Susp(480 ml) PO PRN (12:00)
[2018-01-28] MEDS ORDERED: Vitamin A/D oint 60G TP PRN (12:07)
[2018-01-28] MEDS ORDERED: Vitamins A & D Oint UD Foilpak TOP PRN (12:24)
[2018-01-28] MEDS ORDERED: Lidocaine 1% Inj (20ml) ONE (12:52)
[2018-01-28] MEDS ORDERED: Midazolam 2 MG/2 ML VIAL ONE ×2 (12:53→13:29)
[2018-01-28] MEDS ORDERED: Midazolam 2 MG/2 ML VIAL IVP ONE (13:22)
--- NOTE | 2018-01-28 13:54 | CP.PCM.PN ---
Subjective - Date & Time of Evaluation Date of Evaluation: 01/28/18 Time of Evaluation: 09:30 - Subjective Subjective: Patient has no abdominal discomfort, no fevers, no diarrhea. Objective - Vital Signs/Intake and Output Vital Signs (last 24 hours): Temp Pulse Resp BP Pulse Ox 98.1 F 74 19 105/62 100 01/28/18 08:47 01/28/18 08:47 01/28/18 08:47 01/28/18 08:47 01/28/18 08:47 - Medications Medications: Current Medications Acetaminophen (Tylenol 325mg Tab) 650 mg PO Q4H PRN PRN Reason: Fever >100.5 F Last Admin: 01/23/18 17:22 Dose: 650 mg Atorvastatin Calcium (Lipitor) 20 mg PO QPM [facility] Last Admin: 01/27/18 17:25 Dose: 20 mg Clopidogrel Bisulfate (Plavix) 75 mg PO DAILY [facility] Last Admin: 01/27/18 10:02 Dose: 75 mg Clotrimazole (Mycelex Gael) 10 mg MT 5XD [facility] Last Admin: 01/28/18 09:11 Dose: 10 mg Ezetimibe (Zetia) 10 mg PO DAILY [facility] Last Admin: 01/28/18 09:11 Dose: 10 mg Meropenem (Merrem Iv 1 Gm Premix) 1 gm in 50 mls @ 100 mls/hr IVPB Q8 [facility]; Protocol Stop: 02/01/18 14:01 Last Admin: 01/28/18 05:42 Dose: 100 mls/hr Insulin Human Lispro (Humalog Med) 0 units SC ACHS [facility]; Protocol Last Admin: 01/28/18 07:52 Dose: Not Given Levalbuterol HCl (Xopenex) 0.63 mg IH TIDRESP [facility] Last Admin: 01/28/18 07:47 Dose: 0.63 mg Magnesium Oxide (Mag-Ox) 400 mg PO DAILY [facility] Last Admin: 01/28/18 09:11 Dose: 400 mg Metoprolol Tartrate (Lopressor) 12.5 mg PO QPM [facility] Last Admin: 01/27/18 17:25 Dose: 12.5 mg Montelukast Sodium (Singulair) 10 mg PO QPM [facility] Last Admin: 01/27/18 17:26 Dose: 10 mg Ranolazine [Ranexa] (500 Mg (Home)) 500 mg PO BID [facility] Last Admin: 01/28/18 09:10 Dose: 500 mg Silodosin [Rapaflo] (8 Mg) (Home Med)) 8 mg PO QPM [facility] Last Admin: 01/27/18 17:27 Dose: 8 mg Oxybutynin Chloride (Ditropan Tab) 5 mg PO HS [facility] Last Admin: 01/27/18 21:49 Dose: 5 mg - Labs Labs: 01/28/18 06:00 01/28/18 06:00 PT 13.8 SECONDS (9.4-12.5) H 01/22/18 21:42 INR 1.21 01/22/18 21:42 APTT 30.6 Seconds (25.1-36.5) 01/22/18 21:42 - Constitutional Appears: No Acute Distress, Chronically Ill - Head Exam Head Exam: NORMAL INSPECTION - Respiratory Exam Respiratory Exam: Decreased Breath Sounds - Cardiovascular Exam Cardiovascular Exam: +S1, +S2 - GI/Abdominal Exam GI & Abdominal Exam: Soft. absent: Tenderness Assessment and Plan - Assessment and Plan (Free Text) Plan: Assessment abdominal fluid collection post-op, R/O abscess S/P colostomy reversal S/P severe sepsis S/P acute renal failure S/P ventilator-dependent respiratory failure due to acute perforated sigmoid colon with associated diverticulitis S/P exploratory laparotomy, sigmoidectomy and colostomy history of sepsis due to acute bronchitis, with systemic viral illness history of UTI with E. 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 Je Horne - he will schedule CT-guided drainage of the fluid and will send for work up and cultures will continue Vancomycin and Merrem for now will monitor clinically
[2018-01-28] MEDS ORDERED: Sodium Chloride 0.45% 1,000 ML IV SCH (14:00)
--- NOTE | 2018-01-28 14:16 | CP.PCM.PN ---
Subjective - Date & Time of Evaluation Date of Evaluation: 01/28/18 Time of Evaluation: 09:30 - Subjective Subjective: Chris Stallings- Internal Medicine Resident- H&P on Behalf of Hematology/Oncology Patient seen and examined. No acute events overnight. Patient states diarrhea has improved relative to baseline. Denies fever, chills, chest pain, SOB, abdominal pain, nausea, vomiting, diarrhea, and constipation. 12 point ROS negative except as indicated in HPI Physical Examination: - Constitutional Constitutional: Non-toxic, No Acute Distress - Head Exam Head Exam: ATRAUMATIC, NORMOCEPHALIC - Eye Exam Eye Exam: EOMI, PERRL. absent: Scleral icterus - ENT Exam ENT Exam: Mucous Membranes Moist, Normal Oropharynx - Neck Exam Neck Exam: Full ROM, Normal Inspection - Respiratory Exam Respiratory Exam: Clear to Ausculation Bilateral. absent: Rales, Rhonchi, Wheezes - Cardiovascular Exam Cardiovascular Exam: RRR, +S1, +S2. absent: Gallop, Rubs - GI/Abdominal Exam GI & Abdominal Exam: Soft, Normal Bowel Sounds. absent: Distended, Firm, Guarding, Rigid, Tenderness, Organomegaly, Rebound - Extremities Exam Extremities Exam: Normal Inspection. absent: Pedal Edema - Neurological Exam Neurological Exam: Alert, Awake, Orientated x 3 - Psychiatric Exam Psychiatric exam: Normal Affect, Normal Mood - Skin Skin Exam: Dry, Intact, Normal Color, Warm Assessment and Plan: 77 year old male with a past medical history significant for stage IV mantle cell lymphoma (quiescence), lung cancer s/p wedge resection, hypoglobulinemia, CAD s/p stent placement, DM2, HTN, COPD, and perforated sigmoid diverticulitis s/p Milli procedure who was admitted for fevers and chills. Fever/Chills - 01/23/2018 CT Abdomen and Pelvis with contrast- Decrease in inflammatory changes at the sigmoid anastomotic suture line. Stable well-formed fluid collection interposed between the sigmoid and sacrum. Interposed between the anastomotic suture line in the sacrum is a well-formed collection measuring 4.2 x 7 cm. This is either postoperative seroma or abscess. - IR consulted for drainage 01/28/2018, oral contrast supplied to evaluate for potential leak - ID consulted- appreciate recommendations, continue vancomycin and meropenem Back Pain - neurology consulted- appreciate recommendations - lidoderm patch to affected region 12 on 12 off History of CAD -S/P Cardiac cath with two BRAULIO placed -Continue Plavix, ASA, Lipitor, zetia, and Lopressor Normocytic Anemia -transfuse 1 unit pRBCs on 01/28/2018 and 1 unit pRBCs on 01/29/2018. -Continue to monitor with daily CBC's Intermittent Diarrhea - start amphojel 30cc after loose bowel movement History of COPD -Continue xopenex -Continue Singulair History of BPH -Continue Rapaflo and Oxybutynin History of DM2 -SSI-Med and Accuchecks ACHS Prophylaxis - GI Prophylaxis: famotidine - DVT Prophylaxis: SCD's Patient seen, case discussed with, and plan approved by attending physician, Dr. Minor. Objective - Vital Signs/Intake and Output Vital Signs (last 24 hours): Temp Pulse Resp BP Pulse Ox 98.1 F 74 19 105/62 100 01/28/18 08:47 01/28/18 08:47 01/28/18 08:47 01/28/18 08:47 01/28/18 08:47 - Medications Medications: Current Medications Acetaminophen (Tylenol 325mg Tab) 650 mg PO Q4H PRN PRN Reason: Fever >100.5 F Last Admin: 01/23/18 17:22 Dose: 650 mg Aluminum Hydroxide (Aluminum Hydroxide Gel 320mg /5ml Susp (Bulk)) 30 ml PO Q4H PRN PRN Reason: Indigestion Atorvastatin Calcium (Lipitor) 20 mg PO QPM [facility] Last Admin: 01/27/18 17:25 Dose: 20 mg Clopidogrel Bisulfate (Plavix) 75 mg PO DAILY [facility] Last Admin: 01/27/18 10:02 Dose: 75 mg Clotrimazole (Mycelex Gael) 10 mg MT 5XD [facility] Last Admin: 01/28/18 09:11 Dose: 10 mg Ezetimibe (Zetia) 10 mg PO DAILY [facility] Last Admin: 01/28/18 09:11 Dose: 10 mg Meropenem (Merrem Iv 1 Gm Premix) 1 gm in 50 mls @ 100 mls/hr IVPB Q8 [facility]; Protocol Stop: 02/01/18 14:01 Last Admin: 01/28/18 05:42 Dose: 100 mls/hr Vancomycin HCl (Vancomycin 1gm) 1 gm in 250 mls @ 167 mls/hr IVPB Q12H [facility]; Protocol Last Admin: 01/28/18 10:17 Dose: Not Given Sodium Chloride (Sodium Chloride 0.45%) 1,000 mls @ 60 mls/hr IV .[id number] [facility] Stop: 01/29/18 12:00 Insulin Human Lispro (Humalog Med) 0 units SC ACHS [facility]; Protocol Last Admin: 01/28/18 12:20 Dose: 3 unit Levalbuterol HCl (Xopenex) 0.63 mg IH TIDRESP [facility] Last Admin: 01/28/18 07:47 Dose: 0.63 mg Lidocaine (Lidoderm) 1 ea TD DAILY [facility] Magnesium Oxide (Mag-Ox) 400 mg PO DAILY [facility] Last Admin: 01/28/18 09:11 Dose: 400 mg Metoprolol Tartrate (Lopressor) 12.5 mg PO QPM [facility] Last Admin: 01/27/18 17:25 Dose: 12.5 mg Montelukast Sodium (Singulair) 10 mg PO QPM [facility] Last Admin: 01/27/18 17:26 Dose: 10 mg Ranolazine [Ranexa] (500 Mg (Home)) 500 mg PO BID [facility] Last Admin: 01/28/18 09:10 Dose: 500 mg Silodosin [Rapaflo] (8 Mg) (Home Med)) 8 mg PO QPM [facility] Last Admin: 01/27/18 17:27 Dose: 8 mg Ondansetron HCl (Zofran Inj) 4 mg IVP Q6H PRN PRN Reason: Nausea/Vomiting Oxybutynin Chloride (Ditropan Tab) 5 mg PO HS [facility] Last Admin: 01/27/18 21:49 Dose: 5 mg Vitamin A (Vitamin A & D Oint Ud Foilpak) 1 ea TOP Q8H PRN PRN Reason: DRY NOSTRILS - Labs Labs: 01/28/18 06:00 01/28/18 06:00 PT 13.8 SECONDS (9.4-12.5) H 01/22/18 21:42 INR 1.21 01/22/18 21:42 APTT 30.6 Seconds (25.1-36.5) 01/22/18 21:42
[2018-01-28] MEDS ORDERED: Oxycodone/Acetaminophen 5/325 mg Tab ONE (15:14)
[2018-01-28] MEDS ORDERED: Oxycodone/Acetaminophen 5/325 mg Tab PO ONE (15:15)
[2018-01-28] MEDS ORDERED: Oxycodone/Acetaminophen 5/325 mg Tab PO STA (15:15)
[2018-01-28] MEDS ORDERED: Morphine 2 mg/ml ISec IVP STA (16:10)
[2018-01-28] MEDS: SILODOSIN 8 MG PO SCH (17:23)
[2018-01-28] MEDS ORDERED: Morphine 2 mg/ml ISec IVP PRN ×2 (19:49→19:53)
[2018-01-28] MEDS ORDERED: Oxycodone/Acetaminophen 5/325 mg Tab PO PRN (20:05)
--- NOTE | 2018-01-28 20:16 | CT ---
PROCEDURE: CT-guided pelvic abscess drainage HISTORY: Recent colostomy reversal. 5.5 cm pelvic collection, evaluate for abscess PHYSICIAN(S): Je Horne MD. TECHNIQUE: The relative risks and indications for the procedure were explained to the patient and his and informed consent obtained. The patient was placed in a prone position on the CT scanner and preliminary images through the pelvis performed. This revealed a 3.5 x 5.5 cm fluid collection in the left pelvis. A left transgluteal approach was selected and the area prepped/draped in the usual sterile fashion. Conscious sedation and monitoring were provided throughout the procedure by nurse. An 18-gauge needle was advanced into the collection and 5 cc of turbid bloody fluid aspirated. A specimen was sent to microbiology. A 0.035 J-wire was coiled within the fluid collection. Sequential dilatation was performed with subsequent placement of a 12 [place] pigtail drain. Approximately 25 cc of similar turbid bloody fluid was aspirated. The cavity was lavaged with normal saline. The drain was sutured to the skin and placed to gravity drainage. Completion images were performed. The patient tolerated the procedure well. IMPRESSION: 1. CT-guided pelvic abscess drainage as described above.
[2018-01-28] MEDS ORDERED: Morphine 2 mg/ml ISec IVP SCH (21:00)
[2018-01-28] MEDS: Lidocaine 5% Patch TD SCH (21:40)
[2018-01-29] MEDS: Meropenem IV 1 gm in NS 1 GM/50 ML BAG IVPB SCH ×3 (05:06→21:13)
[2018-01-29 06:48] LABS: ALB/GLOB RATIO 0.9 (1.1-1.8); ALBUMIN 2.8 g/dL (3.0-4.8); ALT/SGPT 40 U/L (7-56); AST/SGOT 26 U/L (17-59); BLOOD UREA NITROGEN 8 mg/dL (7-21); CALCIUM 8.1 mg/dL (8.4-10.5); GFR NON-AFRICAN AMERICAN > 60
[2018-01-29 07:06] LABS: BASO # 0.02 K/mm3 (0.0-2.0); BASO % 0.4 % (0.0-3.0); EOS # 0.3 (0.0-0.7); EOS % 5.3 % (1.5-5.0); GRAN # 3.24 (1.4-6.5); GRAN % 63.3 % (50.0-68.0); HEMOGLOBIN 10.1 g/dL (14.0-18.0); LYMPH # 1.3 (1.2-3.4); LYMPH % 24.5 % (22.0-35.0); MEAN CELL VOLUME 86.7 fl (80.0-105.0); MEAN CORPUSCULAR HEMOGLOBIN 28.1 pg (25.0-35.0); MEAN CORPUSCULAR HGB CONC 32.4 g/dl (31.0-37.0); MEAN PLATELET VOLUME 10.3 fl (7.0-11.0); MONO # 0.3 (0.1-0.6); MONO % 6.5 % (1.0-6.0); RBC 3.6 10^6/uL (3.5-6.1); RED CELL DISTRIBUTION WIDTH 14.7 % (11.5-14.5); WHITE BLOOD COUNT 5.1 10^3/uL (4.5-11.0)
--- NOTE | 2018-01-29 07:25 | CP.PCM.PN ---
Subjective - Date & Time of Evaluation Date of Evaluation: 01/29/18 Time of Evaluation: 07:24 - Subjective Subjective: Garth Stallings DO PGY1 - Internal Medicine [facility] - Surgical Progress Note Patient seen and examined this morning at bedside Underwent sacral abscess drainage w/ IR yesterday; 25cc bloody fluid drained as per IR documentation Pt. c/o pain in L buttock near drainage site w/ pain radiating to L testicle and leg. Afebrile overnight; Patient had BM this morning. Objective - Vital Signs/Intake and Output Vital Signs (last 24 hours): Temp Pulse Resp BP Pulse Ox 97.6 F 63 18 154/91 H 95 01/28/18 19:11 01/28/18 19:11 01/28/18 19:11 01/28/18 19:11 01/28/18 16:27 Intake and Output: 01/29/18 01/29/18 06:59 18:59 Intake Total 325 Output Total 650 Balance -325 - Medications Medications: Current Medications Acetaminophen (Tylenol 325mg Tab) 650 mg PO Q4H PRN PRN Reason: Fever >100.5 F Last Admin: 01/23/18 17:22 Dose: 650 mg Aluminum Hydroxide (Aluminum Hydroxide Gel 320mg /5ml Susp (Bulk)) 30 ml PO Q4H PRN PRN Reason: Indigestion Aspirin (Aspirin Chewable) 81 mg PO DAILY [facility] Atorvastatin Calcium (Lipitor) 20 mg PO QPM [facility] Last Admin: 01/28/18 17:23 Dose: 20 mg Clopidogrel Bisulfate (Plavix) 75 mg PO DAILY [facility] Last Admin: 01/27/18 10:02 Dose: 75 mg Clotrimazole (Mycelex Gael) 10 mg MT 5XD [facility] Last Admin: 01/29/18 05:06 Dose: 10 mg Ezetimibe (Zetia) 10 mg PO DAILY [facility] Last Admin: 01/28/18 09:11 Dose: 10 mg Meropenem (Merrem Iv 1 Gm Premix) 1 gm in 50 mls @ 100 mls/hr IVPB Q8 [facility]; Protocol Stop: 02/01/18 14:01 Last Admin: 01/29/18 05:06 Dose: 100 mls/hr Vancomycin HCl (Vancomycin 1gm) 1 gm in 250 mls @ 167 mls/hr IVPB Q12H [facility]; Protocol Last Admin: 01/28/18 10:17 Dose: Not Given Sodium Chloride (Sodium Chloride 0.45%) 1,000 mls @ 60 mls/hr IV .[id number] [facility] Stop: 01/29/18 12:00 Insulin Human Lispro (Humalog Med) 0 units SC ACHS [facility]; Protocol Last Admin: 01/28/18 21:36 Dose: Not Given Levalbuterol HCl (Xopenex) 0.63 mg IH TIDRESP [facility] Last Admin: 01/28/18 19:48 Dose: 0.63 mg Lidocaine (Lidoderm) 1 ea TD DAILY [facility] Last Admin: 01/28/18 21:40 Dose: 1 ea Magnesium Oxide (Mag-Ox) 400 mg PO DAILY [facility] Last Admin: 01/28/18 09:11 Dose: 400 mg Metoprolol Tartrate (Lopressor) 12.5 mg PO QPM [facility] Last Admin: 01/28/18 17:23 Dose: 12.5 mg Montelukast Sodium (Singulair) 10 mg PO QPM [facility] Last Admin: 01/28/18 17:24 Dose: 10 mg Morphine Sulfate (Morphine) 2 mg IVP Q3 PRN PRN Reason: Pain, severe (8-10) Last Admin: 01/28/18 19:56 Dose: 2 mg Ranolazine [Ranexa] (500 Mg (Home)) 500 mg PO BID [facility] Last Admin: 01/28/18 17:22 Dose: 500 mg Silodosin [Rapaflo] (8 Mg) (Home Med)) 8 mg PO QPM [facility] Last Admin: 01/28/18 17:23 Dose: 8 mg Ondansetron HCl (Zofran Inj) 4 mg IVP Q6H PRN PRN Reason: Nausea/Vomiting Last Admin: 01/28/18 21:51 Dose: 4 mg Oxybutynin Chloride (Ditropan Tab) 5 mg PO HS [facility] Last Admin: 01/28/18 21:35 Dose: 5 mg Oxycodone/Acetaminophen (Percocet 5/325 Mg Tab) 1 tab PO Q6H PRN PRN Reason: Pain, moderate (4-7) Stop: 01/31/18 20:06 Vitamin A (Vitamin A & D Oint Ud Foilpak) 1 ea TOP Q8H PRN PRN Reason: DRY NOSTRILS - Labs Labs: 11/27/18 06:00 01/29/18 06:00 PT 13.8 SECONDS (9.4-12.5) H 01/22/18 21:42 INR 1.21 01/22/18 21:42 APTT 30.6 Seconds (25.1-36.5) 01/22/18 21:42 Physical Exam - Constitutional Appears: Non-toxic, No Acute Distress - Head Exam Head Exam: ATRAUMATIC, NORMOCEPHALIC - Eye Exam Eye Exam: EOMI, Normal appearance - ENT Exam ENT Exam: Mucous Membranes Moist - Respiratory Exam Respiratory Exam: NORMAL BREATHING PATTERN. absent: Respiratory Distress - Cardiovascular Exam Cardiovascular Exam: REGULAR RHYTHM. absent: Tachycardia - GI/Abdominal Exam GI & Abdominal Exam: Soft. absent: Distended, Guarding, Rebound, Tenderness - Rectal Exam Rectal Exam: Deferred - Extremities Exam Extremities exam: Positive for: normal inspection. Negative for: calf tenderness - Back Exam Back Exam: Dressing appreciated over L gluteal region w/ IR drain in place; bag emptied; dressing clean. No hematoma of L gluteal and L lateral leg appreciated. - Neurological Exam Neurological exam: Alert, Oriented x3 - Psychiatric Exam Psychiatric exam: Normal Affect, Normal Mood - Skin Skin Exam: Normal Color, Warm Assessment and Plan - Assessment and Plan (Free Text) Assessment: 77 y/o male presenting w/ fevers, and pre-sacral pelvic fluid collection s/p Rob's reversal; Surgery consulted for pre-sacral fluid collection; S/p IR drainage of sacral collection on 01/28. Plan: -S/p collection drainage by IR on 01/28 -Appreciate IR reccs regarding drain removal / management -Will follow up with fluid culture + stains -Abx as per ID -No acute surgical intervention at this time -C/w regular diet at this time; -DVT/GI PPX as per primary team -Further reccs per Dr. Lamb, Covering for Dr. Montenegro at this time Garth Stallings DO PGY 1 Internal Medicine [facility] - Surgical Progress Note for Dr. Lamb
[2018-01-29] MEDS: Levalbuterol 0.63 MG/3 ML Inhal Soln UD IH SCH ×3 (07:40→20:01)
--- NOTE | 2018-01-29 07:48 | PN ---
DATE: 01/28/2018 ONCOLOGY PROGRESS NOTE LOCATION: The patient is in room 371. Please make a note, this is a complex patient with multiple comorbid medical issues. This is an addition to the resident's note which has already been typed into the computer. I had a detailed discussion with the patient. The patient has been denying any fevers or chills. Denies any history of nausea or vomiting. Has vague lower abdominal discomfort. Back pain appears to be slightly improved. The patient has been seen by Neurology and has had an MRI of the pelvis and MRI of the lumbosacral spine. MRI of the pelvis definitely shows there is presacral area which is cystic in nature and greater than more 4 cm that could be just postoperative collection versus collection of fluid that could be infected as the patient had been spiking temperature. He went home from the prior hospital visit. Based on these factors after discussing with ID and based on the MRI findings, plan was to get IR (Interventional Radiology) to put a needle in with a drainage catheter, sent the fluid for cytology, cultures and gram-stains and empirically drained the as much as squeezable. A detailed discussion with Dr. Je Horne. The plan is to drain the fluid today and send the fluid for various analysis. If the fluid drainage should decrease with time and the cultures are obtained, we would just treat him conservatively and once the fluid accumulation goes away, we can take off the drainage catheter in a few weeks. If on the other hand the patient continues to be symptomatic, one of the things that may have to be done would be the patient may need Gastrografin enema to make sure there is no leakage at the anastomotic site, in which case he may need to have surgical intervention. I related all this information to the patient and his , Shelli, who is a physician as well. We are hoping optimistically for a better option whereby meaning with the drainage, the patient will continue to improve and we will be able to make some discharge plans. In the meantime, if continue to stay on the antibiotics, I am going to order to make sure that is also ordered Bacid as the patient is on several antibiotics at this time. I discussed all these findings with the patient and the family at great detail. Please make a note, this is a complex patient with multiple comorbid medical issues. Concern of holding the Plavix longer was raised. I resumed the Plavix and the aspirin. Going to have Dr. Perez, the wind operations manager team as well in a.m. to make further commands. Blood work for today and tomorrow has bene requested. The patient is getting a unit of packed red blood cells today and a unit of packed red blood cells tomorrow as well. The drainage from the presacral area is serosanguineous. We will continue to monitor that as well. Alie Myers MD
[2018-01-29] MEDS: Insulin Lispro (humaLOG) MEDIUM Coverage SC SCH ×4 (08:07→22:10)
[2018-01-29] MEDS ORDERED: Lidocaine 5% Patch TD SCH (10:00)
[2018-01-29] MEDS: Magnesium Oxide 400 mg Tab UD PO SCH (10:51)
[2018-01-29] MEDS: Lidocaine 5% Patch TD SCH (10:52)
[2018-01-29] MEDS: RANOLAZINE 500 MG PO SCH ×2 (10:53→17:15)
[2018-01-29] MEDS: Vancomycin 1gm in NS 250ml 1 GM/250 ML BAG IVPB SCH ×2 (10:55→21:14)
--- NOTE | 2018-01-29 12:01 | CP.PCM.PN ---
Subjective - Date & Time of Evaluation Date of Evaluation: 01/29/18 Time of Evaluation: 09:30 - Subjective Subjective: Care Coordination Note: Pt. seen and examined. Observed resting comfortabley. In no acute distress.Denied fever, chills, shortness of breath. Denied abdominal pain, nausea, vomitting. Physical exam: Vital signs reviewed within normal. IN no acute distress, AAOx3 HEart S1 S2 reg rate rythm, LCtAB Abdomen soft non-tender, pos BS, no masses. Drainage catheter noted coming from left side sacral area, noted to have scant amount of serousanguinous drainage. -Voids clear yellow urine. Extremities-No edema noted b/l, skin warm,dry, pos Pulses b/l. Lab Data reviewed: revealed Hgb 10.1, Hct- 31.2 A/P: 77 yr.old male with PMH of Mantle cell Lymphoma, Lung CA, CAD/stents,DM, Htn, COPD, Colostomy Reversal admitted for fever and abdominal pain. Workup revealed presacral fluid collection, underwent CT Guided abscess drainage yesterday. On Antibiotics Merrem q 8 and Vanco q12 per I.D. Will continue to monitor drainage from catheter and repeat labs in am. Fluid from abscess drainage sent for cultures and analysis, will f/u results. Anemia- receiving 2nd unit of PRBC's today Per Dr. Myers. Will follow repeat Cbc. Pt recommend Home with services. Will plan for DC home pending results of abcess fluid cultures, and decreased amount of drainage, and symptom free. Objective - Vital Signs/Intake and Output Vital Signs (last 24 hours): Temp Pulse Resp BP Pulse Ox 97.9 F 61 18 130/70 96 01/29/18 08:24 01/29/18 08:24 01/29/18 08:24 01/29/18 08:24 01/29/18 08:24 Intake and Output: 01/29/18 01/29/18 06:59 18:59 Intake Total 325 Output Total 650 Balance -325 - Medications Medications: Current Medications Acetaminophen (Tylenol 325mg Tab) 650 mg PO Q4H PRN PRN Reason: Fever >100.5 F Last Admin: 01/23/18 17:22 Dose: 650 mg Aluminum Hydroxide (Aluminum Hydroxide Gel 320mg /5ml Susp (Bulk)) 30 ml PO Q4H PRN PRN Reason: Indigestion Aspirin (Aspirin Chewable) 81 mg PO DAILY [facility] Last Admin: 01/29/18 10:52 Dose: 81 mg Atorvastatin Calcium (Lipitor) 20 mg PO QPM [facility] Last Admin: 01/28/18 17:23 Dose: 20 mg Clopidogrel Bisulfate (Plavix) 75 mg PO DAILY [facility] Last Admin: 01/29/18 10:52 Dose: 75 mg Clotrimazole (Mycelex Gael) 10 mg MT 5XD [facility] Last Admin: 01/29/18 10:52 Dose: 10 mg Ezetimibe (Zetia) 10 mg PO DAILY [facility] Last Admin: 01/29/18 10:52 Dose: 10 mg Meropenem (Merrem Iv 1 Gm Premix) 1 gm in 50 mls @ 100 mls/hr IVPB Q8 [facility]; Protocol Stop: 02/01/18 14:01 Last Admin: 01/29/18 05:06 Dose: 100 mls/hr Vancomycin HCl (Vancomycin 1gm) 1 gm in 250 mls @ 167 mls/hr IVPB Q12H [facility]; Protocol Last Admin: 01/29/18 10:55 Dose: 167 mls/hr Sodium Chloride (Sodium Chloride 0.45%) 1,000 mls @ 60 mls/hr IV .[id number] [facility] Stop: 01/29/18 12:00 Insulin Human Lispro (Humalog Med) 0 units SC ACHS [facility]; Protocol Last Admin: 01/29/18 08:07 Dose: Not Given Levalbuterol HCl (Xopenex) 0.63 mg IH TIDRESP [facility] Last Admin: 01/29/18 07:40 Dose: 0.63 mg Lidocaine (Lidoderm) 1 ea TD DAILY [facility] Last Admin: 01/29/18 10:52 Dose: 1 ea Magnesium Oxide (Mag-Ox) 400 mg PO DAILY [facility] Last Admin: 01/29/18 10:51 Dose: 400 mg Metoprolol Tartrate (Lopressor) 12.5 mg PO QPM [facility] Last Admin: 01/28/18 17:23 Dose: 12.5 mg Montelukast Sodium (Singulair) 10 mg PO QPM [facility] Last Admin: 01/28/18 17:24 Dose: 10 mg Morphine Sulfate (Morphine) 2 mg IVP Q3 PRN PRN Reason: Pain, severe (8-10) Last Admin: 01/28/18 19:56 Dose: 2 mg Ranolazine [Ranexa] (500 Mg (Home)) 500 mg PO BID [facility] Last Admin: 01/29/18 10:53 Dose: 500 mg Silodosin [Rapaflo] (8 Mg) (Home Med)) 8 mg PO QPM [facility] Last Admin: 01/28/18 17:23 Dose: 8 mg Ondansetron HCl (Zofran Inj) 4 mg IVP Q6H PRN PRN Reason: Nausea/Vomiting Last Admin: 01/28/18 21:51 Dose: 4 mg Oxybutynin Chloride (Ditropan Tab) 5 mg PO HS [facility] Last Admin: 01/28/18 21:35 Dose: 5 mg Oxycodone/Acetaminophen (Percocet 5/325 Mg Tab) 1 tab PO Q6H PRN PRN Reason: Pain, moderate (4-7) Stop: 01/31/18 20:06 Vitamin A (Vitamin A & D Oint Ud Foilpak) 1 ea TOP Q8H PRN PRN Reason: DRY NOSTRILS - Labs Labs: 01/29/18 06:00 01/29/18 06:00 PT 13.8 SECONDS (9.4-12.5) H 01/22/18 21:42 INR 1.21 01/22/18 21:42 APTT 30.6 Seconds (25.1-36.5) 01/22/18 21:42
[2018-01-29] MEDS: SILODOSIN 8 MG PO SCH (17:15)
[2018-01-29] MEDS: Lactobacillus Acidophilus 500 MU Cap PO SCH (17:15)
--- NOTE | 2018-01-30 01:27 | PN ---
ONCOLOGY PROGRESS NOTE DATE: 01/29/2018 LOCATION: The patient is in room 371, bed 2. SUBJECTIVE: This is a 77-year-old male with recent history of reversal of colostomy that was reversed after initially the patient was admitted to have emergency diverting colostomy for ruptured diverticular disease and abscess, which was documented about 3-1/2 months ago and post-reversal, the patient has had series of complications, for which patient was treated with IV antibiotics, improved; developed subendocardial AR, had to have cardiac cath done, had placement of a right coronary artery stent, improved from that; treated adequately with antibiotics, sent home and then, the patient was readmitted after the antibiotics were discontinued as he started having fevers up to 102 and 103. Readmitted to the hospital with evidence of a cystic area in the presacral space just above the level of the anastomosis, consistent with either postoperative seroma and/or coexistence of concomitant infection, because of the temperature rise, the patient was admitted to the hospital, promptly put back on vancomycin and Merrem, which were the antibiotics he was on prior to that. Was seen by Interventional Radiology, and had a CT-guided drainage done yesterday, and serosanguineous fluid was obtained, which was sent for cell count and cultures, and the patient postoperatively after having the catheter inserted was in a significant amount of pain. Pain scale on a score of 0 to 10 was at least 10/10, requiring IV narcotics, which had to be gradually escalated to 2 mg IV every 3 hours. The patient is feeling much better. The patient was very crazy postprocedure as well, and those symptoms appeared to have improved significantly this morning. He is still in pain requiring narcotics, but the drainage catheter which drained about 150 mL so far appears to have decreased in amount. The patient denies any history of nausea or vomiting this morning. The patient feels overall improved, apparently had a bowel movement early this morning as well. Denies any history of fevers or chills. PHYSICAL EXAMINATION: VITAL SIGNS: Stable as noted on the chart. T-max is 98.3, pulse is 65, blood pressure is 136/71 and respirations 18 per minute. HEENT: Head is normocephalic and atraumatic. Conjunctivae pale. Sclerae are anicteric. Pupils are equally reactive to light and accommodation. Examination of the oropharynx reveals the patient to be edentulous. No oropharyngeal lesions are noted. NECK: Supple. There is no adenopathy. No jugular venous distention noted. LUNGS: Clear to percussion and auscultation. HEART: Reveals PMI to be in the 5th intercostal space inside the midclavicular line. S1 and S2 are normal. No gallop or murmur is heard. ABDOMEN: Soft, nontender, mildly distended. Bowel sounds are present. No rebound, rigidity, or guarding is noted. BACK: The patient has a drainage catheter coming out from the lower sacrococcygeal area coming to the side with a drainage bag showing serosanguineous fluid. The amount of fluid in the bag appears to have decreased at this point in time. EXTREMITIES: Lower extremities reveals no cyanosis, clubbing, or edema. NEUROLOGIC: Reveals higher functions to be normal. No focal deficits are noted. /RECTAL: Deferred. MEDICATIONS: The patient's medications were reviewed. He is on aluminum hydroxide gel 30 mL every 4 hours p.r.n. for loose bowel movements. He is on aspirin 81 mg daily. He is on acidophilus 1 cap b.i.d. He is on Ditropan 5 mg p.o. at bedtime. He is on insulin coverage. He is on Lidoderm patch to the lumbosacral area once daily for 12 hours in a day. He is on Lipitor 20 mg daily. He is on Lopressor 12.5 mg p.o. daily. He is on mag oxide 400 mg daily. He is on Merrem 1 g IV every 8 hours. He is on morphine sulfate 2 mg IV every 3 hours p.r.n. He is on Mycelex 10 mg p.o. daily for his tongue. He is on Percocet 5 mg every 6 hours p.r.n. for mild pain. He is on Plavix 75 mg p.o. daily. He is on Ranexa 500 mg p.o. b.i.d. He is on Rapaflo 80 mg p.o. at bedside. He is on Singulair 10 mg p.o. daily. He is on Tylenol p.r.n., temperature greater than 101. He is on vancomycin 1 g every 12 hours. He is on topical vitamin A cream to affected areas as needed. He is on Xopenex 0.63 mg inhaled t.i.d., Zetia 10 mg p.o. daily and 4 mg of Zofran every 6 hours p.r.n. for nausea. LABORATORY DATA: Labs from today were reviewed. White count is 5.1, hemoglobin 10, hematocrit 31 and platelet count 210,000. Chemistries were reviewed. Chemistries revealed BUN of 8 and creatinine 0.7. LFTs are normal. Alkaline phosphatase 141, total protein is 6 with an albumin of 2.8. Electrolytes are normal with a K of 3.8. ASSESSMENT NOTES AND PLAN: The patient is status post drainage of a presacral area that is consistent with either postoperative accumulation of fluid versus abscess. Details of the drainage finding are still pending including cytology, cell count, and cultures. The patient meanwhile stays on antibiotics. The patient is receiving 1 unit of blood today because of the concern that he is still on aspirin and Plavix, which are generally stopped for 2 days, and it is resumed again because of his active coronary artery disease with stenting done recently, and it is probably better to keep the hemoglobin above 9 or 10 as he is a cardiac patient; more important, he may continue to bleed because of the antiplatelet agents. Continue to monitor the patient very carefully over the next 72 hours and then make appropriate decisions. Spoken in detail to Infectious Disease as well who is going to give us some guidelines as for further management. A body fluid culture from yesterday, 01/28/2018, is revealing gram-negative rods with moderate consistent with infection. We will have to monitor the patient very carefully. Once we get the Infectious Disease, we can comment on further management. We will get Infectious Disease and surgical input as well as to further management. We will get Gastroenterology input as well. Please make a note, this is a complex patient with multiple comorbid medical issues. We will continue to monitor the patient very aggressively and follow the patient in a very aggressive mode. Labs for a.m. have been requested. The patient is being followed by other consultants as well. Time spent with the patient is greater than 45 minutes. Alie Myers MD
--- NOTE | 2018-01-30 03:00 | PN ---
DATE: 01/29/2018 SUBJECTIVE: The patient is in bed, in no acute distress, nontoxic. PHYSICAL EXAMINATION: VITAL SIGNS: Temperature is 98, blood pressure is 130/70, respiratory rate of 16. HEENT: Unremarkable. NECK: Supple. LUNGS: Decreased breath sounds. HEART: Normal S1 and S2. ABDOMEN: Soft and nontender. LABORATORY DATA: Reveals a white count of 5.1, hemoglobin 10, platelets of 210. Chemistries reveal a BUN of 8, creatinine of 0.7. Vancomycin trough level, influenza is noted. Microbiology reveals a gram-negative chiquita from the pelvic abscess collection. Identification sensitivity is pending. Blood cultures are negative. Review of orders reveal the patient to be on meropenem and vancomycin. ASSESSMENT AND PLAN: This is a 77-year-old male with abdominal fluid collection with postoperative collection with an abscess and status post colostomy reversal, status post CT-guided drainage with gram negative chiquita and waiting for identification sensitivity in a patient with benign prostatic hyperplasia, coronary artery disease, dyslipidemia, mantle cell lymphoma, history of perforated sigmoid colon associated with diverticulitis and reversal colostomy. We will check any identification and sensitivity of the gram-negative chiquita. We will make further recommendation. Marvin Callahan MD
[2018-01-30] MEDS: Meropenem IV 1 gm in NS 1 GM/50 ML BAG IVPB SCH ×3 (05:53→21:57)
[2018-01-30 07:10] LABS: BASO # 0.03 K/mm3 (0.0-2.0); BASO % 0.7 % (0.0-3.0); EOS # 0.2 (0.0-0.7); EOS % 4.8 % (1.5-5.0); GRAN # 2.64 (1.4-6.5); GRAN % 57.4 % (50.0-68.0); HEMOGLOBIN 11.6 g/dL (14.0-18.0); LYMPH # 1.3 (1.2-3.4); LYMPH % 28.8 % (22.0-35.0); MEAN CELL VOLUME 86.7 fl (80.0-105.0); MEAN CORPUSCULAR HGB CONC 32.2 g/dl (31.0-37.0); MEAN PLATELET VOLUME 10.1 fl (7.0-11.0); MONO # 0.4 (0.1-0.6); MONO % 8.3 % (1.0-6.0); RBC 4.15 10^6/uL (3.5-6.1); RED CELL DISTRIBUTION WIDTH 15.1 % (11.5-14.5); WHITE BLOOD COUNT 4.6 10^3/uL (4.5-11.0)
[2018-01-30] MEDS: Levalbuterol 0.63 MG/3 ML Inhal Soln UD IH SCH ×3 (07:42→19:28)
--- NOTE | 2018-01-30 07:43 | CP.PCM.PN ---
Subjective - Date & Time of Evaluation Date of Evaluation: 01/30/18 Time of Evaluation: 08:15 - Subjective Subjective: Chris Stallings- Internal Medicine Resident- Progress Note on Behalf of Hematology/Oncology Patient seen and examined. No acute events overnight. Patient states sacral/gluteal pain has improved relative to baseline. Denies fever, chills, chest pain, SOB, abdominal pain, nausea, vomiting, diarrhea, and constipation. 12 point ROS negative except as indicated in HPI Physical Examination: - Constitutional Constitutional: Non-toxic, No Acute Distress - Head Exam Head Exam: ATRAUMATIC, NORMOCEPHALIC - Eye Exam Eye Exam: EOMI, PERRL. absent: Scleral icterus - ENT Exam ENT Exam: Mucous Membranes Moist, Normal Oropharynx - Neck Exam Neck Exam: Full ROM, Normal Inspection - Respiratory Exam Respiratory Exam: Clear to Ausculation Bilateral. absent: Rales, Rhonchi, Wheezes - Cardiovascular Exam Cardiovascular Exam: RRR, +S1, +S2. absent: Gallop, Rubs - GI/Abdominal Exam GI & Abdominal Exam: Soft, Normal Bowel Sounds. absent: Distended, Firm, Guarding, Rigid, Tenderness, Organomegaly, Rebound - Back Exam Back Exam: Dressing clean,dry; IR drain secured in proper position- recently emptied- no contents currently - Extremities Exam Extremities Exam: Normal Inspection. absent: Pedal Edema - Neurological Exam Neurological Exam: Alert, Awake, Orientated x 3 - Psychiatric Exam Psychiatric exam: Normal Affect, Normal Mood - Skin Skin Exam: Dry, Intact, Normal Color, Warm Assessment and Plan: Patient is a 77 year old male with a past medical history significant for stage IV mantle cell lymphoma (quiescence), lung cancer s/p wedge resection, hypoglobulinemia, CAD s/p stent placement, DM2, HTN, COPD, and perforated sigmoid diverticulitis s/p Milli procedure who was admitted for fevers and chills. Fever/Chills - 01/23/2018 CT Abdomen and Pelvis with contrast- Decrease in inflammatory changes at the sigmoid anastomotic suture line. Stable well-formed fluid collection interposed between the sigmoid and sacrum. Interposed between the anastomotic suture line in the sacrum is a well-formed collection measuring 4.2 x 7 cm. This is either postoperative seroma or abscess. - IR consulted- IR drain in place - ID consulted- appreciate recommendations, continue vancomycin and meropenem - awaiting cytology, cell count, and cultures from fluid collection Back Pain - neurology consulted- appreciate recommendations - lidoderm patch to affected region 12 on 12 off History of CAD -S/P Cardiac cath with two BRAULIO placed -Continue Plavix, ASA, Lipitor, zetia, and Lopressor -cardiology consulted- appreciate recommendations Normocytic Anemia -H/H stable- s/p transfusion of 2 unit pRBCs -Continue to monitor with daily CBC's -GI consulted- appreciate recommendations Intermittent Diarrhea - continue with amphojel 30cc after loose bowel movement History of COPD -Continue xopenex -Continue Singulair History of BPH -Continue Rapaflo and Oxybutynin History of DM2 -SSI-Med and Accuchecks ACHS Prophylaxis - GI Prophylaxis: famotidine - DVT Prophylaxis: SCD's Please make note this is a complex patient with multiple comorbid medical issues. We will continue to monitor the patient patient aggressively. Time spend with the patient is greater than 45 minutes. Extensive conversation with family at bedside. Dispo: Transfer to TCU in coming days. Patient seen, case discussed with, and plan approved by attending physician, Dr. Minor. Objective - Vital Signs/Intake and Output Vital Signs (last 24 hours): Temp Pulse Resp BP Pulse Ox 98.3 F 65 18 136/71 97 01/29/18 18:51 01/29/18 18:51 01/29/18 18:51 01/29/18 18:51 01/29/18 17:19 Intake and Output: 01/30/18 01/30/18 06:59 18:59 Intake Total 830 Output Total 10 Balance 820 - Medications Medications: Current Medications Acetaminophen (Tylenol 325mg Tab) 650 mg PO Q4H PRN PRN Reason: Fever >100.5 F Last Admin: 01/23/18 17:22 Dose: 650 mg Aluminum Hydroxide (Aluminum Hydroxide Gel 320mg /5ml Susp (Bulk)) 30 ml PO Q4H PRN PRN Reason: Indigestion Aspirin (Aspirin Chewable) 81 mg PO DAILY [facility] Last Admin: 01/29/18 10:52 Dose: 81 mg Atorvastatin Calcium (Lipitor) 20 mg PO QPM [facility] Last Admin: 01/29/18 17:16 Dose: 20 mg Clopidogrel Bisulfate (Plavix) 75 mg PO DAILY [facility] Last Admin: 01/29/18 10:52 Dose: 75 mg Clotrimazole (Mycelex Gael) 10 mg MT 5XD [facility] Last Admin: 01/30/18 05:53 Dose: 10 mg Ezetimibe (Zetia) 10 mg PO DAILY [facility] Last Admin: 01/29/18 10:52 Dose: 10 mg Meropenem (Merrem Iv 1 Gm Premix) 1 gm in 50 mls @ 100 mls/hr IVPB Q8 [facility]; Prot ocol Stop: 02/01/18 14:01 Last Admin: 01/30/18 05:53 Dose: 100 mls/hr Vancomycin HCl (Vancomycin 1gm) 1 gm in 250 mls @ 167 mls/hr IVPB Q12H [facility]; Protocol Last Admin: 01/29/18 21:14 Dose: 167 mls/hr Insulin Human Lispro (Humalog Med) 0 units SC ACHS [facility]; Protocol Last Admin: 01/29/18 22:10 Dose: Not Given Lactobacillus Acidophilus (Bacid Acidophilus) 1 cap PO BID [facility] Last Admin: 01/29/18 17:15 Dose: 1 cap Levalbuterol HCl (Xopenex) 0.63 mg IH TIDRESP [facility] Last Admin: 01/29/18 20:01 Dose: 0.63 mg Lidocaine (Lidoderm) 1 ea TD DAILY [facility] Last Admin: 01/29/18 10:52 Dose: 1 ea Magnesium Oxide (Mag-Ox) 400 mg PO DAILY [facility] Last Admin: 01/29/18 10:51 Dose: 400 mg Metoprolol Tartrate (Lopressor) 12.5 mg PO QPM [facility] Last Admin: 01/29/18 17:16 Dose: 12.5 mg Montelukast Sodium (Singulair) 10 mg PO QPM [facility] Last Admin: 01/29/18 17:16 Dose: 10 mg Morphine Sulfate (Morphine) 2 mg IVP Q3 PRN PRN Reason: Pain, severe (8-10) Last Admin: 01/28/18 19:56 Dose: 2 mg Ranolazine [Ranexa] (500 Mg (Home)) 500 mg PO BID [facility] Last Admin: 01/29/18 17:15 Dose: 500 mg Silodosin [Rapaflo] (8 Mg) (Home Med)) 8 mg PO QPM [facility] Last Admin: 01/29/18 17:15 Dose: 8 mg Ondansetron HCl (Zofran Inj) 4 mg IVP Q6H PRN PRN Reason: Nausea/Vomiting Last Admin: 01/28/18 21:51 Dose: 4 mg Oxybutynin Chloride (Ditropan Tab) 5 mg PO HS [facility] Last Admin: 01/29/18 21:13 Dose: 5 mg Oxycodone/Acetaminophen (Percocet 5/325 Mg Tab) 1 tab PO Q6H PRN PRN Reason: Pain, moderate (4-7) Stop: 01/31/18 20:06 Last Admin: 01/29/18 20:09 Dose: 1 tab Vitamin A (Vitamin A & D Oint Ud Foilpak) 1 ea TOP Q8H PRN PRN Reason: DRY NOSTRILS - Labs Labs: 01/30/18 06:35 01/29/18 06:00 PT 13.8 SECONDS (9.4-12.5) H 01/22/18 21:42 INR 1.21 01/22/18 21:42 APTT 30.6 Seconds (25.1-36.5) 01/22/18 21:42
[2018-01-30 07:45] LABS: ALB/GLOB RATIO 0.8 (1.1-1.8); ALBUMIN 2.6 g/dL (3.0-4.8); ALT/SGPT 36 U/L (7-56); AST/SGOT 27 U/L (17-59); BLOOD UREA NITROGEN 11 mg/dL (7-21); CALCIUM 8.1 mg/dL (8.4-10.5); GFR NON-AFRICAN AMERICAN > 60
[2018-01-30] MEDS: Insulin Lispro (humaLOG) MEDIUM Coverage SC SCH ×4 (08:47→22:00)
--- NOTE | 2018-01-30 09:32 | CP.PCM.PN ---
Subjective - Date & Time of Evaluation Date of Evaluation: 01/30/18 Time of Evaluation: 09:32 - Subjective Subjective: Garth Stallings DO PGY1 - Internal Medicine [employer] - Surgical Progress Note No acute events overnight; L buttock pain still present from day prior; Afebrile overnight Objective - Vital Signs/Intake and Output Vital Signs (last 24 hours): Temp Pulse Resp BP Pulse Ox 98.3 F 65 18 136/71 97 01/29/18 18:51 01/29/18 18:51 01/29/18 18:51 01/29/18 18:51 01/29/18 17:19 Intake and Output: 01/30/18 01/30/18 06:59 18:59 Intake Total 830 Output Total 10 Balance 820 - Medications Medications: Current Medications Acetaminophen (Tylenol 325mg Tab) 650 mg PO Q4H PRN PRN Reason: Fever >100.5 F Last Admin: 01/23/18 17:22 Dose: 650 mg Aluminum Hydroxide (Aluminum Hydroxide Gel 320mg /5ml Susp (Bulk)) 30 ml PO Q4H PRN PRN Reason: Indigestion Aspirin (Aspirin Chewable) 81 mg PO DAILY [facility] Last Admin: 01/29/18 10:52 Dose: 81 mg Atorvastatin Calcium (Lipitor) 20 mg PO QPM [facility] Last Admin: 01/29/18 17:16 Dose: 20 mg Clopidogrel Bisulfate (Plavix) 75 mg PO DAILY [facility] Last Admin: 01/29/18 10:52 Dose: 75 mg Clotrimazole (Mycelex Gael) 10 mg MT 5XD [facility] Last Admin: 01/30/18 05:53 Dose: 10 mg Ezetimibe (Zetia) 10 mg PO DAILY [facility] Last Admin: 01/29/18 10:52 Dose: 10 mg Meropenem (Merrem Iv 1 Gm Premix) 1 gm in 50 mls @ 100 mls/hr IVPB Q8 [facility]; P rotocol Stop: 02/01/18 14:01 Last Admin: 01/30/18 05:53 Dose: 100 mls/hr Vancomycin HCl (Vancomycin 1gm) 1 gm in 250 mls @ 167 mls/hr IVPB Q12H [facility]; Protocol Last Admin: 01/29/18 21:14 Dose: 167 mls/hr Insulin Human Lispro (Humalog Med) 0 units SC ACHS [facility]; Protocol Last Admin: 01/30/18 08:47 Dose: Not Given Lactobacillus Acidophilus (Bacid Acidophilus) 1 cap PO BID [facility] Last Admin: 01/29/18 17:15 Dose: 1 cap Levalbuterol HCl (Xopenex) 0.63 mg IH TIDRESP [facility] Last Admin: 01/30/18 07:42 Dose: 0.63 mg Lidocaine (Lidoderm) 1 ea TD DAILY [facility] Last Admin: 01/29/18 10:52 Dose: 1 ea Magnesium Oxide (Mag-Ox) 400 mg PO DAILY [facility] Last Admin: 01/29/18 10:51 Dose: 400 mg Metoprolol Tartrate (Lopressor) 12.5 mg PO QPM [facility] Last Admin: 01/29/18 17:16 Dose: 12.5 mg Montelukast Sodium (Singulair) 10 mg PO QPM [facility] Last Admin: 01/29/18 17:16 Dose: 10 mg Morphine Sulfate (Morphine) 2 mg IVP Q3 PRN PRN Reason: Pain, severe (8-10) Last Admin: 01/28/18 19:56 Dose: 2 mg Ranolazine [Ranexa] (500 Mg (Home)) 500 mg PO BID [facility] Last Admin: 01/29/18 17:15 Dose: 500 mg Silodosin [Rapaflo] (8 Mg) (Home Med)) 8 mg PO QPM [facility] Last Admin: 01/29/18 17:15 Dose: 8 mg Ondansetron HCl (Zofran Inj) 4 mg IVP Q6H PRN PRN Reason: Nausea/Vomiting Last Admin: 01/28/18 21:51 Dose: 4 mg Oxybutynin Chloride (Ditropan Tab) 5 mg PO HS [facility] Last Admin: 01/29/18 21:13 Dose: 5 mg Oxycodone/Acetaminophen (Percocet 5/325 Mg Tab) 1 tab PO Q6H PRN PRN Reason: Pain, moderate (4-7) Stop: 01/31/18 20:06 Last Admin: 01/29/18 20:09 Dose: 1 tab Vitamin A (Vitamin A & D Oint Ud Foilpak) 1 ea TOP Q8H PRN PRN Reason: DRY NOSTRILS - Labs Labs: 01/30/18 06:35 01/30/18 06:35 PT 13.8 SECONDS (9.4-12.5) H 01/22/18 21:42 INR 1.21 01/22/18 21:42 APTT 30.6 Seconds (25.1-36.5) 01/22/18 21:42 Physical Exam - Constitutional Appears: Non-toxic, No Acute Distress - Head Exam Head Exam: ATRAUMATIC, NORMOCEPHALIC - Eye Exam Eye Exam: EOMI, Normal appearance - ENT Exam ENT Exam: Mucous Membranes Moist - Respiratory Exam Respiratory Exam: NORMAL BREATHING PATTERN. absent: Respiratory Distress - Cardiovascular Exam Cardiovascular Exam: REGULAR RHYTHM. absent: Tachycardia - GI/Abdominal Exam GI & Abdominal Exam: Soft. absent: Distended, Guarding, Rebound, Tenderness - Rectal Exam Rectal Exam: Deferred - Extremities Exam Extremities exam: Positive for: normal inspection. Negative for: calf tenderness - Back Exam Back Exam: Dressing appreciated over L gluteal region w/ IR drain in place; bag emptied; dressing clean. No hematoma of L gluteal and L lateral leg appreciated. - Neurological Exam Neurological exam: Alert, Oriented x3 - Psychiatric Exam Psychiatric exam: Normal Affect, Normal Mood - Skin Skin Exam: Normal Color, Warm Assessment and Plan - Assessment and Plan (Free Text) Assessment: 77 y/o male presenting w/ fevers, and pre-sacral pelvic fluid collection s/p Rob's reversal; Surgery consulted for pre-sacral fluid collection; S/p IR drainage of sacral collection on 01/28. Plan: -S/p collection drainage by IR on 01/28 -Draining serosanguinous fluid -Appreciate IR reccs regarding drain removal / management ; drain flushed w/ 10CC NS yesterday; -Will follow up with fluid culture + stains -Abx as per ID -No acute surgical intervention at this time -C/w regular diet at this time; -DVT/GI PPX as per primary team -Further reccs per Dr. Lamb, Covering for Dr. Montenegro at this time Garth Stallings DO PGY 1 Internal Medicine [employer] - Surgical Progress Note for Dr. Lamb
[2018-01-30] MEDS: Lactobacillus Acidophilus 500 MU Cap PO SCH ×2 (10:24→18:53)
[2018-01-30] MEDS: Magnesium Oxide 400 mg Tab UD PO SCH (10:24)
[2018-01-30] MEDS: Lidocaine 5% Patch TD SCH (10:24)
[2018-01-30] MEDS: RANOLAZINE 500 MG PO SCH ×2 (10:25→18:57)
--- NOTE | 2018-01-30 15:18 | CP.PCM.PN ---
Subjective - Date & Time of Evaluation Date of Evaluation: 01/30/18 Time of Evaluation: 09:30 - Subjective Subjective: Afebrile, not in distress but still with some abdominal discomfort but less, no diarrhea, no nausea. Objective - Vital Signs/Intake and Output Vital Signs (last 24 hours): Temp Pulse Resp BP Pulse Ox 98.3 F 65 18 136/71 97 01/29/18 18:51 01/29/18 18:51 01/29/18 18:51 01/29/18 18:51 01/29/18 17:19 Intake and Output: 01/30/18 01/30/18 06:59 18:59 Intake Total 830 Output Total 10 Balance 820 - Medications Medications: Current Medications Acetaminophen (Tylenol 325mg Tab) 650 mg PO Q4H PRN PRN Reason: Fever >100.5 F Last Admin: 01/23/18 17:22 Dose: 650 mg Aluminum Hydroxide (Aluminum Hydroxide Gel 320mg /5ml Susp (Bulk)) 30 ml PO Q4H PRN PRN Reason: Indigestion Aspirin (Aspirin Chewable) 81 mg PO DAILY [facility] Last Admin: 01/29/18 10:52 Dose: 81 mg Atorvastatin Calcium (Lipitor) 20 mg PO QPM [facility] Last Admin: 01/29/18 17:16 Dose: 20 mg Clopidogrel Bisulfate (Plavix) 75 mg PO DAILY [facility] Last Admin: 01/29/18 10:52 Dose: 75 mg Clotrimazole (Mycelex Gael) 10 mg MT 5XD [facility] Last Admin: 01/30/18 05:53 Dose: 10 mg Ezetimibe (Zetia) 10 mg PO DAILY [facility] Last Admin: 01/29/18 10:52 Dose: 10 mg Meropenem (Merrem Iv 1 Gm Premix) 1 gm in 50 mls @ 100 mls/hr IVPB Q8 [facility]; Protocol Stop: 02/01/18 14:01 Last Admin: 01/30/18 05:53 Dose: 100 mls/hr Vancomycin HCl (Vancomycin 1gm) 1 gm in 250 mls @ 167 mls/hr IVPB Q12H [facility]; Protocol Last Admin: 01/29/18 21:14 Dose: 167 mls/hr Insulin Human Lispro (Humalog Med) 0 units SC ACHS [facility]; Protocol Last Admin: 01/30/18 08:47 Dose: Not Given Lactobacillus Acidophilus (Bacid Acidophilus) 1 cap PO BID [facility] Last Admin: 01/29/18 17:15 Dose: 1 cap Levalbuterol HCl (Xopenex) 0.63 mg IH TIDRESP [facility] Last Admin: 01/30/18 07:42 Dose: 0.63 mg Lidocaine (Lidoderm) 1 ea TD DAILY [facility] Last Admin: 01/29/18 10:52 Dose: 1 ea Magnesium Oxide (Mag-Ox) 400 mg PO DAILY [facility] Last Admin: 01/29/18 10:51 Dose: 400 mg Metoprolol Tartrate (Lopressor) 12.5 mg PO QPM [facility] Last Admin: 01/29/18 17:16 Dose: 12.5 mg Montelukast Sodium (Singulair) 10 mg PO QPM [facility] Last Admin: 01/29/18 17:16 Dose: 10 mg Morphine Sulfate (Morphine) 2 mg IVP Q3 PRN PRN Reason: Pain, severe (8-10) Last Admin: 01/28/18 19:56 Dose: 2 mg Ranolazine [Ranexa] (500 Mg (Home)) 500 mg PO BID [facility] Last Admin: 01/29/18 17:15 Dose: 500 mg Silodosin [Rapaflo] (8 Mg) (Home Med)) 8 mg PO QPM [facility] Last Admin: 01/29/18 17:15 Dose: 8 mg Ondansetron HCl (Zofran Inj) 4 mg IVP Q6H PRN PRN Reason: Nausea/Vomiting Last Admin: 01/28/18 21:51 Dose: 4 mg Oxybutynin Chloride (Ditropan Tab) 5 mg PO HS [facility] Last Admin: 01/29/18 21:13 Dose: 5 mg Oxycodone/Acetaminophen (Percocet 5/325 Mg Tab) 1 tab PO Q6H PRN PRN Reason: Pain, moderate (4-7) Stop: 01/31/18 20:06 Last Admin: 01/29/18 20:09 Dose: 1 tab Vitamin A (Vitamin A & D Oint Ud Foilpak) 1 ea TOP Q8H PRN PRN Reason: DRY NOSTRILS - Labs Labs: 01/30/18 06:35 01/30/18 06:35 PT 13.8 SECONDS (9.4-12.5) H 01/22/18 21:42 INR 1.21 01/22/18 21:42 APTT 30.6 Seconds (25.1-36.5) 01/22/18 21:42 - Constitutional Appears: Chronically Ill - Head Exam Head Exam: NORMAL INSPECTION - Respiratory Exam Respiratory Exam: Decreased Breath Sounds - Cardiovascular Exam Cardiovascular Exam: +S1, +S2 - GI/Abdominal Exam GI & Abdominal Exam: Soft. absent: Tenderness Additional comments: abdominal drain in place Assessment and Plan - Assessment and Plan (Free Text) Plan: Assessment pelvic abscess, growing gram negative bacilli S/P colostomy reversal S/P severe sepsis S/P acute renal failure S/P ventilator-dependent respiratory failure due to acute perforated sigmoid colon with associated diverticulitis S/P exploratory laparotomy, sigmoidectomy and colostomy history of sepsis due to acute bronchitis, with systemic viral illness history of UTI with E. 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 Horne might do contrast studies to rule out fistula or leak from the anastomosis site will continue to monitor clinically
--- NOTE | 2018-01-30 15:46 | CP.PCM.PN ---
Subjective - Date & Time of Evaluation Date of Evaluation: 01/30/18 Time of Evaluation: 10:00 - Subjective Subjective: Care Coordination Note: Pt. seen and examined. Observed resting comfortabley. In no acute distress.Denied fever, chills, shortness of breath. Denied abdominal pain, nausea, vomitting. Physical exam: Vital signs reviewed within normal. IN no acute distress, AAOx3 HEart S1 S2 reg rate rythm, LCtAB Abdomen soft non-tender, pos BS, no masses. Drainage catheter noted coming from left side sacral area, noted to have scant amount of serousanguinous drainage. -Voids clear yellow urine. Extremities-No edema noted b/l, skin warm,dry, pos Pulses b/l. Lab data reviewed 20 cc of drainage noted overnight. No output noted since this am. A/P: 77 yr.old male with PMH of Mantle cell Lymphoma, Lung CA, CAD/stents,DM, Htn, COPD, Colostomy Reversal admitted for fever and abdominal pain. Workup revealed presacral fluid collection, underwent CT Guided abscess drainage yesterday. On Antibiotics Merrem q 8 and Vanco q12 per I.D. Will continue to monitor drainage from catheter and repeat labs in am. Fluid from abscess drainage cx resulted Pseudomonas Aureginosa, treated with Merrem, Day 8, will need 6 more days IV Merrem per I.D. Per Dr. Myers patient needs to monitored 1 more day, and plan to discharge to [facility].Patient accepted to [facility]. Objective - Vital Signs/Intake and Output Vital Signs (last 24 hours): Temp Pulse Resp BP Pulse Ox 97.8 F 66 19 114/67 95 01/30/18 06:00 01/30/18 06:00 01/30/18 06:00 01/30/18 06:00 01/30/18 06:00 Intake and Output: 01/30/18 01/30/18 06:59 18:59 Intake Total 830 Output Total 10 Balance 820 - Medications Medications: Current Medications Acetaminophen (Tylenol 325mg Tab) 650 mg PO Q4H PRN PRN Reason: Fever >100.5 F Last Admin: 01/23/18 17:22 Dose: 650 mg Aluminum Hydroxide (Aluminum Hydroxide Gel 320mg /5ml Susp (Bulk)) 30 ml PO Q4H PRN PRN Reason: Indigestion Aspirin (Aspirin Chewable) 81 mg PO DAILY [facility] Last Admin: 01/30/18 10:24 Dose: 81 mg Atorvastatin Calcium (Lipitor) 20 mg PO QPM [facility] Last Admin: 01/29/18 17:16 Dose: 20 mg Clopidogrel Bisulfate (Plavix) 75 mg PO DAILY [facility] Last Admin: 01/30/18 10:24 Dose: 75 mg Clotrimazole (Mycelex Gael) 10 mg MT 5XD [facility] Last Admin: 01/30/18 14:27 Dose: 10 mg Ezetimibe (Zetia) 10 mg PO DAILY [facility] Last Admin: 01/30/18 10:24 Dose: 10 mg Meropenem (Merrem Iv 1 Gm Premix) 1 gm in 50 mls @ 100 mls/hr IVPB Q8 [facility]; Protocol Stop: 02/01/18 14:01 Last Admin: 01/30/18 14:27 Dose: 100 mls/hr Insulin Human Lispro (Humalog Med) 0 units SC ACHS [facility]; Protocol Last Admin: 01/30/18 12:05 Dose: Not Given Lactobacillus Acidophilus (Bacid Acidophilus) 1 cap PO BID [facility] Last Admin: 01/30/18 10:24 Dose: 1 cap Levalbuterol HCl (Xopenex) 0.63 mg IH TIDRESP [facility] Last Admin: 01/30/18 13:39 Dose: 0.63 mg Lidocaine (Lidoderm) 1 ea TD DAILY [facility] Last Admin: 01/30/18 10:24 Dose: 1 ea Magnesium Oxide (Mag-Ox) 400 mg PO DAILY [facility] Last Admin: 01/30/18 10:24 Dose: 400 mg Metoprolol Tartrate (Lopressor) 12.5 mg PO QPM [facility] Last Admin: 01/29/18 17:16 Dose: 12.5 mg Montelukast Sodium (Singulair) 10 mg PO QPM [facility] Last Admin: 01/29/18 17:16 Dose: 10 mg Morphine Sulfate (Morphine) 2 mg IVP Q3 PRN PRN Reason: Pain, severe (8-10) Last Admin: 01/28/18 19:56 Dose: 2 mg Ranolazine [Ranexa] (500 Mg (Home)) 500 mg PO BID [facility] Last Admin: 01/30/18 10:25 Dose: 500 mg Silodosin [Rapaflo] (8 Mg) (Home Med)) 8 mg PO QPM [facility] Last Admin: 01/29/18 17:15 Dose: 8 mg Ondansetron HCl (Zofran Inj) 4 mg IVP Q6H PRN PRN Reason: Nausea/Vomiting Last Admin: 01/28/18 21:51 Dose: 4 mg Oxybutynin Chloride (Ditropan Tab) 5 mg PO HS [facility] Last Admin: 01/29/18 21:13 Dose: 5 mg Oxycodone/Acetaminophen (Percocet 5/325 Mg Tab) 1 tab PO Q6H PRN PRN Reason: Pain, moderate (4-7) Stop: 01/31/18 20:06 Last Admin: 01/29/18 20:09 Dose: 1 tab Vitamin A (Vitamin A & D Oint Ud Foilpak) 1 ea TOP Q8H PRN PRN Reason: DRY NOSTRILS - Labs Labs: 01/30/18 06:35 01/30/18 06:35 PT 13.8 SECONDS (9.4-12.5) H 01/22/18 21:42 INR 1.21 01/22/18 21:42 APTT 30.6 Seconds (25.1-36.5) 01/22/18 21:42
[2018-01-30] MEDS: SILODOSIN 8 MG PO SCH (18:57)
[2018-01-31 00:55] VITALS: O2SAT 96
[2018-01-31] MEDS: Meropenem IV 1 gm in NS 1 GM/50 ML BAG IVPB SCH ×2 (05:33→14:25)
[2018-01-31] MEDS: Levalbuterol 0.63 MG/3 ML Inhal Soln UD IH SCH ×2 (07:37→13:19)
[2018-01-31] MEDS: Insulin Lispro (humaLOG) MEDIUM Coverage SC SCH ×2 (08:02→11:54)
[2018-01-31 08:53] VITALS: BP 109/56; PULSE 81; RESP 19; TEMP 97.8
[2018-01-31] MEDS: Lactobacillus Acidophilus 500 MU Cap PO SCH (10:12)
[2018-01-31] MEDS: Magnesium Oxide 400 mg Tab UD PO SCH (10:12)
[2018-01-31] MEDS: Lidocaine 5% Patch TD SCH (10:15)
[2018-01-31] MEDS: RANOLAZINE 500 MG PO SCH (10:17)
--- NOTE | 2018-01-31 12:46 | PN ---
DATE: 01/31/2018 SUBJECTIVE: The patient is seen earlier today, in no acute distress, comfortable. No fevers and chills. OBJECTIVE: VITAL SIGNS: Temperature is 98, blood pressure is 110/50, and respiratory rate of 19. HEENT: Unremarkable. NECK: Supple. LUNGS: Have decreased breath sounds. HEART: Normal S1, S2. ABDOMEN: Soft, nontender. LABORATORY EXAMINATION: Reveals a white count of 4.6 and hemoglobin of 11, and platelets of 206. Coagulation is noted. Chemistries reveals a BUN of 11, creatinine of 0.8. Urinalysis is noted and vanco level of 18.6. Serology, influenza is negative. Microbiology reveals Pseudomonas aeruginosa from the body fluid, which is actually sensitive to cefepime, gentamicin and meropenem and Cipro and assessment of the review of the orders reveals the patient to be on meropenem. ASSESSMENT AND PLAN: This is a 77-year-old male with a history of mantle cell lymphoma who has admitted for the last admission with abdominal surgery perforated sigmoid colon into diverticulitis, had exploratory lap and sigmoidectomy and colostomy, had reversal of colostomy and this admission, patient was admitted with intraabdominal collection postoperatively with Pseudomonas abscess and status post CT-guided drainage on meropenem, and currently on meropenem. The patient appears to be tolerating medications well, initially did have temperature of 100.4 on admission on the 01/22/2018, and did have tachycardia, so by definition he has sepsis with Pseudomonas intra-abdominal abscess. We will continue the meropenem and follow closely with you on the . On the 01/28/2018, the patient fortunately have Dr. Je Horne did a CT-guided drainage of abscess and we will follow closely with you. Marvin Callahan MD
== END 2018-01-31 15:33 | DRG 372 ==
LOC: ED 20:15 → ERH 01-23 00:51 → 2RNO 01-23 06:06 → 3RSO 01-25 16:47
PROVIDERS: ADMIT Family Medicine; ATTEND Family Medicine
PROC: 0W9G3ZZ Drainage of Peritoneal Cavity, Percutaneous Approach (ICD-10-PCS; principal; 2018-01-28 13:00)
PROC: 30233N1 Transfusion of Nonautologous Red Blood Cells into Peripheral Vein, Percutaneous Approach (ICD-10-PCS; 2018-01-31)
DX: K65.1 Peritoneal abscess (principal); K56.7 Ileus, unspecified; C83.10 Mantle cell lymphoma, unspecified site; D80.1 Nonfamilial hypogammaglobulinemia; Z79.84 Long term (current) use of oral hypoglycemic drugs; R53.1 Weakness; D63.8 Anemia in other chronic diseases classified elsewhere; E11.9 Type 2 diabetes mellitus without complications; E78.00 Pure hypercholesterolemia, unspecified; E78.5 Hyperlipidemia, unspecified; G62.9 Polyneuropathy, unspecified; I10 Essential (primary) hypertension; I25.10 Atherosclerotic heart disease of native coronary artery without angina pectoris; J44.9 Chronic obstructive pulmonary disease, unspecified; M48.061 Spinal stenosis, lumbar region without neurogenic claudication; M54.17 Radiculopathy, lumbosacral region; Z79.02 Long term (current) use of antithrombotics/antiplatelets; Z85.118 Personal history of other malignant neoplasm of bronchus and lung; Z87.01 Personal history of pneumonia (recurrent); Z95.5 Presence of coronary angioplasty implant and graft; I25.2 Old myocardial infarction; K14.1 Geographic tongue; M53.3 Sacrococcygeal disorders, not elsewhere classified; N40.0 Benign prostatic hyperplasia without lower urinary tract symptoms; Z86.19 Personal history of other infectious and parasitic diseases; Z87.440 Personal history of urinary (tract) infections; Z98.0 Intestinal bypass and anastomosis status

== ENCOUNTER 2018-01-31 15:33 | Inpatient (IN) | payer OTHER ==
[2018-01-31] MEDS ORDERED: Aluminum Hydrox Gel 320 mg/5 ml Susp(480 ml) PO PRN ×3 (16:47→17:08)
[2018-01-31] MEDS ORDERED: Vitamins A & D Oint UD Foilpak TOP PRN (16:47)
[2018-01-31] MEDS ORDERED: Morphine 2 mg/ml ISec IVP PRN (17:03)
[2018-01-31] MEDS ORDERED: Oxycodone/Acetaminophen 5/325 mg Tab PO PRN (17:04)
[2018-01-31] MEDS ORDERED: Non Formulary Medication (Ranolazine [Ranexa] 500 MG) PO SCH (18:00)
[2018-01-31] MEDS ORDERED: SILODOSIN 8 MG PO SCH ×2 (18:00)
[2018-01-31] MEDS: Lactobacillus Acidophilus 500 MU Cap PO SCH (18:09)
[2018-01-31] MEDS: RANOLAZINE 500 MG PO SCH (18:11)
[2018-01-31] MEDS: Levalbuterol 0.63 MG/3 ML Inhal Soln UD IH SCH (19:22)
[2018-01-31] MEDS ORDERED: Pneumococcal 23-Valent Vaccine IM ONE (22:06)
[2018-01-31] MEDS ORDERED: Influenza Vaccine 60 mcg/0.5 mL SYR (4YR UP) IM ONE (22:06)
[2018-01-31] MEDS: Insulin Lispro (humaLOG) MEDIUM Coverage SC SCH (22:07)
[2018-01-31] MEDS: Meropenem IV 1 gm in NS 1 GM/50 ML BAG IVPB SCH (22:08)
[2018-02-01] MEDS: Meropenem IV 1 gm in NS 1 GM/50 ML BAG IVPB SCH ×3 (06:22→22:04)
[2018-02-01] MEDS: Insulin Lispro (humaLOG) MEDIUM Coverage SC SCH ×4 (06:54→22:42)
[2018-02-01] MEDS: Levalbuterol 0.63 MG/3 ML Inhal Soln UD IH SCH ×3 (07:30→21:30)
--- NOTE | 2018-02-01 07:31 | CP.PCM.CON ---
History of Present Illness - History of Present Illness History of Present Illness: General Surgery Note for Dr. Pabon Consult: pelvic fluid collection s/p Rob's reversal on 01/01/2018 CC: leg coolness and fever at home HPI: Patient is a 77 y/o male who presented on 01/22/18 complaining of bilateral leg coolness and fever at home. Patient found to have a fluid collection in the pelvis now s/p drain placement by IR. He is transferred to TCU for further management of symptoms. He admits to pain near the drain site that is well controlled with pain medication. He reports tolerating diet however since recent admission appetite has been poor. He reports resolution of diarrhea but states his stool remains soft. No black stools or bloody stools. He denies pain to the abdomen. No fevers, chills, shortness of breath, chest pain, or urinary symptoms. PMH: Stage IV mantle cell lymphoma (quiescence), lung cancer, hypoglobulinemia, CAD s/p stent placement, DM2, HTN, COPD, and diverticular disease PSH: Rob procedure, Colostomy reversal, and lung wedge resection SH: Denies any tobacco, alcohol or illicit drug abuse FH: Noncontributory ALL: Azithromycin, penicillins Meds: See MAR Review of Systems - Constitutional Constitutional: absent: Chills, Fever - EENT Eyes: absent: Blurred Vision, Change in Vision Ears: absent: Ear Discharge, Ear Pain Nose/Mouth/Throat: absent: Nasal Congestion, Nasal Discharge - Cardiovascular Cardiovascular: absent: Chest Pain, Dyspnea - Respiratory Respiratory: absent: Cough, Dyspnea - Gastrointestinal Gastrointestinal: Loose Stools. absent: Abdominal Pain, Nausea, Vomiting - Genitourinary Genitourinary: absent: Difficulty Urinating, Dysuria - Musculoskeletal Musculoskeletal: absent: Back Pain, Neck Pain Additional comments: pain near drain site - Integumentary Integumentary: absent: Bleeding Lesions, Changing Lesions - Neurological Neurological: absent: Confusion, Dizziness Past Patient History - Infectious Disease Hx of Infectious Diseases: None - Tetanus Immunizations Tetanus Immunization: Unknown - Past Medical History & Family History Past Medical History?: Yes - Past Social History Smoking Status: Never Smoked - CARDIAC Hx Cardiac Disorders: Yes (CAD, S/P 4 cardiac stents AND 2 STENTS ON 01/08/2018, [place]) Hx Hypertension: Yes - PULMONARY Hx Respiratory Disorders: Yes Hx Pneumonia: Yes - NEUROLOGICAL Hx Neurological Disorder: Yes Hx Transient Ischemic Attacks (TIA): Yes - HEENT Hx HEENT Problems: Yes Hx Cataracts: (h0h b/lhearing aid) - RENAL Hx Chronic Kidney Disease: No - ENDOCRINE/METABOLIC Hx Diabetes Mellitus Type 2: Yes - HEMATOLOGICAL/ONCOLOGICAL Hx Blood Disorders: Yes Hx Anemia: Yes (blood transfusions) Hx Cancer: Yes (mantle cell lymphoma dx about 7 yrs ago) Hx Chemotherapy: Yes Other/Comment: neutropenia, hypogammaglobunemia, sepsis - INTEGUMENTARY Hx Dermatological Problems: No - MUSCULOSKELETAL/RHEUMATOLOGICAL Hx Falls: No - GASTROINTESTINAL Hx Gastrointestinal Disorders: No (DIVERTICULITIS,SIGMOIDECTOMY,COLOSTOMY REVERSAL) - GENITOURINARY/GYNECOLOGICAL Hx Genitourinary Disorders: Yes (LEFT NEPHROSTOMY) Hx Reproductive Disorders: Yes (BPH) - PSYCHIATRIC Hx Psychophysiologic Disorder: No - SURGICAL HISTORY Hx Cardiac Catheterization: Yes (sents x4) Hx Musculoskeletal Surgery: Yes Hx Open Heart Surgery: Yes - ANESTHESIA Hx Anesthesia: Yes Hx Anesthesia Reactions: No Hx Malignant Hyperthermia: No Meds Allergies/Adverse Reactions: Allergies Allergy/AdvReac Type Severity Reaction Status Date / Time azithromycin Allergy Severe ANGIOEDEMA Verified 01/09/18 19:42 erythromycin base Allergy Severe ANGIOEDEMA Verified 01/09/18 19:42 Penicillins Allergy Severe ANAPHYLAXIS Verified 01/09/18 19:42 cephalexin monohydrate Allergy Intermediate RASH Verified 01/09/18 19:42 [From Keflex] gabapentin Allergy Intermediate RASH Verified 01/09/18 19:42 pregabalin Allergy Intermediate RASH Verified 01/09/18 19:42 Sulfa (Sulfonamide Allergy Intermediate RASH Verified 01/09/18 19:42 Antibiotics) nitro paste Allergy Intermediate DIZZINESS/H Uncoded 01/09/18 19:42 YPOTENSION Imbrovica Allergy FEVER Uncoded 01/09/18 19:42 - Medications Medications: Current Medications Acetaminophen (Tylenol 325mg Tab) 650 mg PO Q4H PRN PRN Reason: Fever >100.4 F Aluminum Hydroxide (Aluminum Hydroxide Gel 320mg /5ml Susp (Bulk)) 30 ml PO Q4H PRN PRN Reason: Indigestion Aspirin (Aspirin Chewable) 81 mg PO 0800 [facility] Atorvastatin Calcium (Lipitor) 20 mg PO QPM [facility] Last Admin: 11/29/18 18:09 Dose: 20 mg Clopidogrel Bisulfate (Plavix) 75 mg PO DAILY [facility] Clotrimazole (Mycelex Gael) 10 mg MT 5XD [facility] Last Admin: 02/01/18 06:23 Dose: 10 mg Ezetimibe (Zetia) 10 mg PO DAILY [facility] Meropenem (Merrem Iv 1 Gm Premix) 1 gm in 50 mls @ 100 mls/hr IVPB Q8 [facility]; Protocol Stop: 02/01/18 14:01 Last Admin: 02/01/18 06:22 Dose: 100 mls/hr Insulin Human Lispro (Humalog Med) 0 units SC ACHS [facility]; Protocol Last Admin: 02/01/18 06:54 Dose: Not Given Lactobacillus Acidophilus (Bacid Acidophilus) 1 cap PO BID [facility] Last Admin: 01/31/18 18:09 Dose: 1 cap Levalbuterol HCl (Xopenex) 0.63 mg IH TIDRESP [facility] Last Admin: 01/31/18 19:22 Dose: 0.63 mg Lidocaine (Lidoderm) 1 ea TD DAILY [facility] Magnesium Oxide (Mag-Ox) 400 mg PO DAILY [facility] Metoprolol Tartrate (Lopressor) 12.5 mg PO QPM [facility] Last Admin: 01/31/18 18:10 Dose: 12.5 mg Montelukast Sodium (Singulair) 10 mg PO QPM [facility] Last Admin: 01/31/18 18:12 Dose: 10 mg Morphine Sulfate (Morphine) 2 mg IVP Q3H PRN PRN Reason: Pain, severe (8-10) Ranolazine [Ranexa] (500 Mg (Home)) 500 mg PO BID [facility] Last Admin: 01/31/18 18:11 Dose: 500 mg Silodosin [Rapaflo] (8 Mg) (Home Med)) 8 mg PO QPM [facility] Last Admin: 01/31/18 18:11 Dose: 8 mg Ondansetron HCl (Zofran Inj) 4 mg IVP Q6H PRN PRN Reason: Nausea/Vomiting Oxybutynin Chloride (Ditropan Tab) 5 mg PO HS [facility] Last Admin: 01/31/18 22:28 Dose: 5 mg Oxycodone/Acetaminophen (Percocet 5/325 Mg Tab) 1 tab PO Q6H PRN PRN Reason: Pain, moderate (4-7) Stop: 02/03/18 17:05 Vitamin A (Vitamin A & D Oint Ud Foilpak) 1 ea TOP Q8H PRN PRN Reason: DRY NOSTRILS Physical Exam - Constitutional Appears: Well, Non-toxic, No Acute Distress - Head Exam Head Exam: ATRAUMATIC, NORMAL INSPECTION, NORMOCEPHALIC - Eye Exam Eye Exam: EOMI - ENT Exam ENT Exam: Mucous Membranes Moist - Respiratory Exam Respiratory Exam: Clear to Auscultation Bilateral, NORMAL BREATHING PATTERN - Cardiovascular Exam Cardiovascular Exam: REGULAR RHYTHM - GI/Abdominal Exam GI & Abdominal Exam: Normal Bowel Sounds, Soft. absent: Tenderness - Neurological Exam Neurological exam: Alert, Oriented x3 - Psychiatric Exam Psychiatric exam: Normal Affect, Normal Mood - Skin Skin Exam: Dry, Intact, Normal Color, Warm Additional comments: Drain output minimal serosanguinous Drain site c/d/i, nonerythematous, tender to palpation, no drainage around site Results - Vital Signs Recent Vital Signs: Last Vital Signs Temp 98 F 01/31/18 21:46 Pulse 76 01/31/18 21:46 Resp 20 01/31/18 21:46 BP 114/63 01/31/18 21:46 Pulse Ox 97 01/31/18 16:00 - Labs Labs: Laboratory Results - last 24 hr 01/31/18 01/31/18 02/01/18 16:46 21:49 06:48 POC Glucose (mg/dL) 137 H 140 H 116 H Assessment & Plan - Assessment and Plan (Free Text) Assessment: 77M w/ pelvic fluid collection s/p IR drain placement POD4 Plan: Continue diet as tolerated IV Abx per ID Monitor drain output Drain management per IR, Dr. Horne Further medical management per primary team No further surgical intervention required at this present time D/w Dr. Cm Nielson PGY1
--- NOTE | 2018-02-01 08:57 | CP.PCM.HP ---
History of Present Illness - History of Present Illness History of Present Illness: Chris Stallings- Internal Medicine Resident- H&P on Behalf of Hematology/Oncology CC: Fever/Chills HPI: Patient is a 77 year old male with a past medical history significant for stage IV mantle cell lymphoma (quiescence), lung cancer s/p wedge resection, hypoglobulinemia, CAD s/p stent placement, DM2, HTN, COPD, and perforated sigmoid diverticulitis s/p Milli procedure who was admitted for evaluation and treatment of fever and chills. During his hospital stay the patient was found to have a stable well-formed fluid collection interposed between the sigmoid and sacrum which was drained by IR. Patient is currently receiving IV antibiotics for infected fluid source. He is transferred to the TCU for physical rehabilitation and continued care. Patient seen and examined at bedside. Admits to baseline pain near drain site. Offers no new complaints at this time. Denies fever, chills, chest pain, shortness of breath, abdominal pain, nausea, vomiting, diarrhea, constipation, and urinary symptoms. 12 Point ROS Negative Except as indicated in HPI PMHx: Stage IV mantle cell lymphoma (quiescence), lung cancer s/p wedge resection, hypoglobulinemia, CAD s/p stent placement, DM2, HTN, COPD, and perforated sigmoid diverticulitis s/p Milli procedure PSHx: Rob procedure, Colostomy reversal, and lung wedge resection Family History: Non-Contributory Social History: Denies any tobacco, alcohol or illicit drug abuse Allergies: Zithromax, Keflex and PCN Home Medications: As per MAR Physical Examination: - Constitutional Constitutional: Non-toxic, No Acute Distress - Head Exam Head Exam: ATRAUMATIC, NORMOCEPHALIC - Eye Exam Eye Exam: EOMI, PERRL. absent: Scleral icterus - ENT Exam ENT Exam: Mucous Membranes Moist, Normal Oropharynx - Neck Exam Neck Exam: Full ROM, Normal Inspection - Respiratory Exam Respiratory Exam: Clear to Ausculation Bilateral. absent: Rales, Rhonchi, Wheezes - Cardiovascular Exam Cardiovascular Exam: RRR, +S1, +S2. absent: Gallop, Rubs - GI/Abdominal Exam GI & Abdominal Exam: Soft, Normal Bowel Sounds. absent: Distended, Firm, Guarding, Rigid, Tenderness, Organomegaly, Rebound - Extremities Exam Extremities Exam: Normal Inspection. absent: Pedal Edema - Neurological Exam Neurological Exam: Alert, Awake, Orientated x 3 - Psychiatric Exam Psychiatric exam: Normal Affect, Normal Mood - Skin Skin Exam: Dry, Intact, Normal Color, Warm Assessment and Plan: 77 year old male with a past medical history significant for stage IV mantle cell lymphoma (quiescence), lung cancer s/p wedge resection, hypoglobulinemia, CAD s/p stent placement, DM2, HTN, COPD, and perforated sigmoid diverticulitis s/p Milli procedure who was admitted for fevers and chills. Fever/Chills - 01/23/2018 CT Abdomen and Pelvis with contrast- Decrease in inflammatory changes at the sigmoid anastomotic suture line. Stable well-formed fluid collect ion interposed between the sigmoid and sacrum. Interposed between the anastomotic suture line in the sacrum is a well-formed collection measuring 4.2 x 7 cm. This is either postoperative seroma or abscess. - IR consulted for potential drainage - ID consulted- appreciate recommendations, continue meropenem- will need to complete 10-14 day course Back Pain - neurology consulted- appreciate recommendations - lidoderm patch to affected region 12 on 12 off History of CAD -s/p Cardiac cath with two BRAULIO placed -Continue Plavix, ASA, Lipitor, zetia, and Lopressor Normocytic Anemia -H/H stable -Continue to monitor with daily CBC's History of COPD -Continue xopenex -Continue Singulair History of BPH -Continue Rapaflo and Oxybutynin History of DM2 -SSI-Med and Accuchecks ACHS Deconditioning - continue PT in TCU setting Prophylaxis - GI Prophylaxis: famotidine - DVT Prophylaxis: SCD's Please make note this is a complex patient with multiple comorbid medical issues. We will continue to monitor the patient patient aggressively. Case thoroughly discussed with patient's . Time spend with the patient is greater than 45 minutes. Patient case discussed with, and plan approved by attending physician, Dr. Minor. Present on Admission - Present on Admission Any Indicators Present on Admission: No Past Patient History - Infectious Disease Hx of Infectious Diseases: None - Tetanus Immunizations Tetanus Immunization: Unknown - Past Medical History & Family History Past Medical History?: Yes - Past Social History Smoking Status: Never Smoked - CARDIAC Hx Cardiac Disorders: Yes (CAD, S/P 4 cardiac stents AND 2 STENTS ON 01/08/2018, [place]) Hx Hypertension: Yes - PULMONARY Hx Respiratory Disorders: Yes Hx Pneumonia: Yes - NEUROLOGICAL Hx Neurological Disorder: Yes Hx Transient Ischemic Attacks (TIA): Yes - HEENT Hx HEENT Problems: Yes Hx Cataracts: (h0h b/lhearing aid) - RENAL Hx Chronic Kidney Disease: No - ENDOCRINE/METABOLIC Hx Diabetes Mellitus Type 2: Yes - HEMATOLOGICAL/ONCOLOGICAL Hx Blood Disorders: Yes Hx Anemia: Yes (blood transfusions) Hx Cancer: Yes (mantle cell lymphoma dx about 7 yrs ago) Hx Chemotherapy: Yes Other/Comment: neutropenia, hypogammaglobunemia, sepsis - INTEGUMENTARY Hx Dermatological Problems: No - MUSCULOSKELETAL/RHEUMATOLOGICAL Hx Falls: No - GASTROINTESTINAL Hx Gastrointestinal Disorders: No (DIVERTICULITIS,SIGMOIDECTOMY,COLOSTOMY REVERSAL) - GENITOURINARY/GYNECOLOGICAL Hx Genitourinary Disorders: Yes (LEFT NEPHROSTOMY) Hx Reproductive Disorders: Yes (BPH) - PSYCHIATRIC Hx Psychophysiologic Disorder: No - SURGICAL HISTORY Hx Cardiac Catheterization: Yes (sents x4) Hx Musculoskeletal Surgery: Yes Hx Open Heart Surgery: Yes - ANESTHESIA Hx Anesthesia: Yes Hx Anesthesia Reactions: No Hx Malignant Hyperthermia: No Meds Allergies/Adverse Reactions: Allergies Allergy/AdvReac Type Severity Reaction Status Date / Time azithromycin Allergy Severe ANGIOEDEMA Verified 01/09/18 19:42 erythromycin base Allergy Severe ANGIOEDEMA Verified 01/09/18 19:42 Penicillins Allergy Severe ANAPHYLAXIS Verified 01/09/18 19:42 cephalexin monohydrate Allergy Intermediate RASH Verified 01/09/18 19:42 [From Keflex] gabapentin Allergy Intermediate RASH Verified 01/09/18 19:42 pregabalin Allergy Intermediate RASH Verified 01/09/18 19:42 Sulfa (Sulfonamide Allergy Intermediate RASH Verified 01/09/18 19:42 Antibiotics) nitro paste Allergy Intermediate DIZZINESS/H Uncoded 01/09/18 19:42 YPOTENSION Imbrovica Allergy FEVER Uncoded 01/09/18 19:42 Results - Vital Signs Recent Vital Signs: Last Vital Signs Temp 98 F 01/31/18 21:46 Pulse 76 01/31/18 21:46 Resp 20 01/31/18 21:46 BP 114/63 01/31/18 21:46 Pulse Ox 97 01/31/18 16:00 - Labs Result Diagrams: 02/02/18 06:50 02/02/18 06:50 Labs: Laboratory Results - last 24 hr 01/31/18 01/31/18 02/01/18 16:46 21:49 06:48 POC Glucose (mg/dL) 137 H 140 H 116 H
[2018-02-01] MEDS: Lactobacillus Acidophilus 500 MU Cap PO SCH ×2 (09:45→17:28)
[2018-02-01] MEDS: Lidocaine 5% Patch TD SCH (09:46)
[2018-02-01] MEDS: Magnesium Oxide 400 mg Tab UD PO SCH (09:46)
[2018-02-01] MEDS: RANOLAZINE 500 MG PO SCH ×2 (09:47→17:29)
--- NOTE | 2018-02-01 14:37 | CP.PCM.CON ---
History of Present Illness - History of Present Illness History of Present Illness: Josue Obando DO, PGY-1 Cardiology Consult Note for Dr. Perez Mr. Marques is a 77 year old male with PMH of Stage IV Mantle cell lymphoma, lung cancer (s/p wedge resection), hypoglobulinemia, CAD (s/p PCI), DM2, HTN, COPD, and perforated sigmoid diverticulitis (s/p Milli procedure) who presented to [facility] ED for concern of worsening fever and chills at home after recent prior hospitalization. During his hospital stay, Mr. Marques was found to have a fluid collection between the sigmoid and sacrum which was subsequently drained per IR. Patient is transferred to TCU for continuation of IV abx and continued rehabilitation and care. He was seen and examined at bedside this afternoon and reports generally feeling well. He denies any pain currently, including chest pain. He denies having any more fever/chills, SOB, dyspnea on exertion, nausea/vomiting. Review of Systems - Constitutional Constitutional: absent: Chills, Fever, Night Sweats - EENT Eyes: absent: Change in Vision - Cardiovascular Cardiovascular: absent: Chest Pain, Chest Pain at Rest, Chest Pain with A ctivity, Dyspnea, Dyspnea on Exertion, Edema, Irregular Heart Rhythm - Respiratory Respiratory: absent: Cough, Dyspnea - Gastrointestinal Gastrointestinal: absent: Abdominal Pain, Nausea, Vomiting - Genitourinary Genitourinary: absent: Change in Urinary Stream, Difficulty Urinating Past Patient History - Infectious Disease Hx of Infectious Diseases: None - Tetanus Immunizations Tetanus Immunization: Unknown - Past Medical History & Family History Past Medical History?: Yes - Past Social History Smoking Status: Never Smoked - CARDIAC Hx Cardiac Disorders: Yes (x 4 stents) Hx Hypertension: Yes - PULMONARY Hx Chronic Obstructive Pulmonary Disease (COPD): Yes - NEUROLOGICAL Hx Neurological Disorder: Yes Hx Transient Ischemic Attacks (TIA): Yes - HEENT Hx HEENT Problems: Yes Hx Cataracts: (h0h b/lhearing aid) - RENAL Hx Chronic Kidney Disease: No - ENDOCRINE/METABOLIC Hx Diabetes Mellitus Type 2: Yes - HEMATOLOGICAL/ONCOLOGICAL Hx Blood Disorders: Yes Hx Anemia: Yes (blood transfusions) Hx Cancer: Yes (mantle cell lymphoma dx about 7 yrs ago) Hx Chemotherapy: Yes Other/Comment: neutropenia, hypogammaglobunemia, sepsis - INTEGUMENTARY Hx Dermatological Problems: No - MUSCULOSKELETAL/RHEUMATOLOGICAL Hx Falls: No - GASTROINTESTINAL Hx Gastrointestinal Disorders: No (DIVERTICULITIS,SIGMOIDECTOMY,COLOSTOMY REVERSAL) - GENITOURINARY/GYNECOLOGICAL Hx Genitourinary Disorders: Yes (LEFT NEPHROSTOMY) Hx Reproductive Disorders: Yes (BPH) - PSYCHIATRIC Hx Psychophysiologic Disorder: No - SURGICAL HISTORY Hx Cardiac Catheterization: Yes (sents x4) Hx Musculoskeletal Surgery: Yes Hx Open Heart Surgery: Yes - ANESTHESIA Hx Anesthesia: Yes Hx Anesthesia Reactions: No Hx Malignant Hyperthermia: No Meds Allergies/Adverse Reactions: Allergies Allergy/AdvReac Type Severity Reaction Status Date / Time azithromycin Allergy Severe ANGIOEDEMA Verified 01/09/18 19:42 erythromycin base Allergy Severe ANGIOEDEMA Verified 01/09/18 19:42 Penicillins Allergy Severe ANAPHYLAXIS Verified 01/09/18 19:42 cephalexin monohydrate Allergy Intermediate RASH Verified 01/09/18 19:42 [From Keflex] gabapentin Allergy Intermediate RASH Verified 01/09/18 19:42 pregabalin Allergy Intermediate RASH Verified 01/09/18 19:42 Sulfa (Sulfonamide Allergy Intermediate RASH Verified 01/09/18 19:42 Antibiotics) nitro paste Allergy Intermediate DIZZINESS/H Uncoded 01/09/18 19:42 YPOTENSION Imbrovica Allergy FEVER Uncoded 01/09/18 19:42 - Medications Medications: Current Medications Acetaminophen (Tylenol 325mg Tab) 650 mg PO Q4H PRN PRN Reason: Fever >100.4 F Aluminum Hydroxide (Aluminum Hydroxide Gel 320mg /5ml Susp (Bulk)) 30 ml PO Q4H PRN PRN Reason: Indigestion Aspirin (Aspirin Chewable) 81 mg PO 0800 [facility] Last Admin: 02/01/18 09:44 Dose: 81 mg Atorvastatin Calcium (Lipitor) 20 mg PO QPM [facility] Last Admin: 01/31/18 18:09 Dose: 20 mg Clopidogrel Bisulfate (Plavix) 75 mg PO DAILY [facility] Last Admin: 02/01/18 09:46 Dose: 75 mg Clotrimazole (Mycelex Gael) 10 mg MT 5XD [facility] Last Admin: 02/01/18 13:43 Dose: 10 mg Ezetimibe (Zetia) 10 mg PO DAILY [facility] Last Admin: 02/01/18 09:48 Dose: 10 mg Insulin Human Lispro (Humalog Med) 0 units SC [facility]; Protocol Last Admin: 02/01/18 13:41 Dose: Not Given Lactobacillus Acidophilus (Bacid Acidophilus) 1 cap PO BID [facility] Last Admin: 02/01/18 09:45 Dose: 1 cap Levalbuterol HCl (Xopenex) 0.63 mg IH TIDRESP [facility] Last Admin: 02/01/18 13:21 Dose: 0.63 mg Lidocaine (Lidoderm) 1 ea TD DAILY [facility] Last Admin: 02/01/18 09:46 Dose: 1 ea Magnesium Oxide (Mag-Ox) 400 mg PO DAILY [facility] Last Admin: 02/01/18 09:46 Dose: 400 mg Metoprolol Tartrate (Lopressor) 12.5 mg PO QPM [facility] Last Admin: 01/31/18 18:10 Dose: 12.5 mg Montelukast Sodium (Singulair) 10 mg PO QPM [facility] Last Admin: 01/31/18 18:12 Dose: 10 mg Morphine Sulfate (Morphine) 2 mg IVP Q3H PRN PRN Reason: Pain, severe (8-10) Ranolazine [Ranexa] (500 Mg (Home)) 500 mg PO BID [facility] Silodosin [Rapaflo] (8 Mg) (Home Med)) 8 mg PO QPM [facility] Ondansetron HCl (Zofran Inj) 4 mg IVP Q6H PRN PRN Reason: Nausea/Vomiting Oxybutynin Chloride (Ditropan Tab) 5 mg PO HS [facility] Last Admin: 01/31/18 22:28 Dose: 5 mg Oxycodone/Acetaminophen (Percocet 5/325 Mg Tab) 1 tab PO Q6H PRN PRN Reason: Pain, moderate (4-7) Stop: 02/03/18 17:05 Vitamin A (Vitamin A & D Oint Ud Foilpak) 1 ea TOP Q8H PRN PRN Reason: DRY NOSTRILS Physical Exam - Constitutional Appears: Non-toxic, No Acute Distress - Head Exam Head Exam: ATRAUMATIC, NORMOCEPHALIC - Eye Exam Eye Exam: EOMI, Normal appearance, PERRL - ENT Exam ENT Exam: Mucous Membranes Moist - Neck Exam Neck exam: Positive for: Full Rom, Normal Inspection - Respiratory Exam Respiratory Exam: Clear to Auscultation Bilateral, NORMAL BREATHING PATTERN. absent: Rales, Rhonchi, Wheezes - Cardiovascular Exam Cardiovascular Exam: REGULAR RHYTHM, RRR, +S1, +S2. absent: Diastolic murmur, Gallop, Rubs, Systolic Murmur - GI/Abdominal Exam GI & Abdominal Exam: Normal Bowel Sounds, Soft. absent: Guarding, Rebound, Tenderness - Extremities Exam Extremities exam: Positive for: pedal pulses present. Negative for: pedal edema - Neurological Exam Neurological exam: Alert, Oriented x3 - Psychiatric Exam Psychiatric exam: Normal Affect, Normal Mood - Skin Skin Exam: Dry, Intact, Warm Results - Vital Signs Recent Vital Signs: Last Vital Signs Temp 98 F 01/31/18 21:46 Pulse 72 02/01/18 13:45 Resp 20 01/31/18 21:46 BP 114/63 01/31/18 21:46 Pulse Ox 99 02/01/18 12:40 - Labs Labs: Laboratory Results - last 24 hr 01/31/18 01/31/18 02/01/18 16:46 21:49 06:48 POC Glucose (mg/dL) 137 H 140 H 116 H 02/01/18 12:23 POC Glucose (mg/dL) 107 Assessment & Plan - Assessment and Plan (Free Text) Assessment: 77 year old male with PMH of Stage IV Mantle cell lymphoma, lung cancer (s/p wedge resection), hypoglobulinemia, CAD (s/p PCI), DM2, HTN, COPD, and perfo rated sigmoid diverticulitis (s/p Milli procedure) admitted for fever/chills found to have abdominal fluid collection currently in TCU for IV abx and rehabilitation. He is s/p PCI to RCA on 01/07/18. Plan: 1. Hx CAD s/p PCI to RCA Cardiac cath with two BRAULIO to proximal and mid RCA placed 01/07/18 Continue Plavix, ASA, Lipitor, Zetia, and Lopressor as prescribed for now Will also obtain platelet aggregation assay for more customized anti-platelet dosing Additional management of IV abx, rehabilitation per primary team Case and plan reviewed and discussed with my attending Dr. Chris Obando, DO IM Resident PGY-1
[2018-02-01] MEDS: SILODOSIN 8 MG PO SCH (17:29)
--- NOTE | 2018-02-01 20:40 | CP.PCM.CON ---
History of Present Illness - History of Present Illness History of Present Illness: 77 year old male with PMH of mantle cell lymphoma with history of chemotherapy, coronary artery disease, benign prostatic hyperplasia, dyslipidemia, history of urinary tract infection, history of candidemia, history of bilateral pneumonia, history of diverticulitis S/P sigmoid resection, colostomy and now reversal, initially came in to [facility] because of fevers while at home after being recently discharged S/P colostomy reversal. CT A/P revealed pelvic abscess. It was drained by CT guidance and it grew Pseudomonas. He has been doing well with antibiotics and is now transferred to [facility] for continued medical therapy and physical rehab. Infectious Diseases consult is requested to further evaluate and manage. He denies fever or chills, no nausea or vomiting, no chest pain, no SOB, no headache or dizziness, no abdominal pain, no diarrhea, no dysuria. Review of Systems - Review of Systems All systems: reviewed and no additional remarkable complaints except (as per H PI) Past Patient History - Infectious Disease Hx of Infectious Diseases: None - Tetanus Immunizations Tetanus Immunization: Unknown - Past Medical History & Family History Past Medical History?: Yes - Past Social History Smoking Status: Never Smoked - CARDIAC Hx Cardiac Disorders: Yes (x 4 stents) Hx Hypertension: Yes - PULMONARY Hx Chronic Obstructive Pulmonary Disease (COPD): Yes - NEUROLOGICAL Hx Neurological Disorder: Yes Hx Transient Ischemic Attacks (TIA): Yes - HEENT Hx HEENT Problems: Yes Hx Cataracts: (h0h b/lhearing aid) - RENAL Hx Chronic Kidney Disease: No - ENDOCRINE/METABOLIC Hx Diabetes Mellitus Type 2: Yes - HEMATOLOGICAL/ONCOLOGICAL Hx Blood Disorders: Yes Hx Anemia: Yes (blood transfusions) Hx Cancer: Yes (mantle cell lymphoma dx about 7 yrs ago) Hx Chemotherapy: Yes Other/Comment: neutropenia, hypogammaglobunemia, sepsis - INTEGUMENTARY Hx Dermatological Problems: No - MUSCULOSKELETAL/RHEUMATOLOGICAL Hx Falls: No - GASTROINTESTINAL Hx Gastrointestinal Disorders: No (DIVERTICULITIS,SIGMOIDECTOMY,COLOSTOMY REVERSAL) - GENITOURINARY/GYNECOLOGICAL Hx Genitourinary Disorders: Yes (LEFT NEPHROSTOMY) Hx Reproductive Disorders: Yes (BPH) - PSYCHIATRIC Hx Psychophysiologic Disorder: No - SURGICAL HISTORY Hx Cardiac Catheterization: Yes (sents x4) Hx Musculoskeletal Surgery: Yes Hx Open Heart Surgery: Yes - ANESTHESIA Hx Anesthesia: Yes Hx Anesthesia Reactions: No Hx Malignant Hyperthermia: No Meds Allergies/Adverse Reactions: Allergies Allergy/AdvReac Type Severity Reaction Status Date / Time azithromycin Allergy Severe ANGIOEDEMA Verified 01/09/18 19:42 erythromycin base Allergy Severe ANGIOEDEMA Verified 01/09/18 19:42 Penicillins Allergy Severe ANAPHYLAXIS Verified 01/09/18 19:42 cephalexin monohydrate Allergy Intermediate RASH Verified 01/09/18 19:42 [From Keflex] gabapentin Allergy Intermediate RASH Verified 01/09/18 19:42 pregabalin Allergy Intermediate RASH Verified 01/09/18 19:42 Sulfa (Sulfonamide Allergy Intermediate RASH Verified 01/09/18 19:42 Antibiotics) nitro paste Allergy Intermediate DIZZINESS/H Uncoded 01/09/18 19:42 YPOTENSION Imbrovica Allergy FEVER Uncoded 01/09/18 19:42 - Medications Medications: Current Medications Acetaminophen (Tylenol 325mg Tab) 650 mg PO Q4H PRN PRN Reason: Fever >100.4 F Aluminum Hydroxide (Aluminum Hydroxide Gel 320mg /5ml Susp (Bulk)) 30 ml PO Q4H PRN PRN Reason: Indigestion Aspirin (Aspirin Chewable) 81 mg PO 0800 [facility] Last Admin: 02/01/18 09:44 Dose: 81 mg Atorvastatin Calcium (Lipitor) 20 mg PO QPM [facility] Last Admin: 02/01/18 17:28 Dose: 20 mg Clopidogrel Bisulfate (Plavix) 75 mg PO DAILY [facility] Last Admin: 02/01/18 09:46 Dose: 75 mg Clotrimazole (Mycelex Gael) 10 mg MT 5XD [facility] Last Admin: 02/01/18 17:30 Dose: 10 mg Ezetimibe (Zetia) 10 mg PO DAILY [facility] Last Admin: 02/01/18 09:48 Dose: 10 mg Insulin Human Lispro (Humalog Med) 0 units SC ACHS [facility]; Protocol Last Admin: 02/01/18 17:17 Dose: Not Given Lactobacillus Acidophilus (Bacid Acidophilus) 1 cap PO BID [facility] Last Admin: 02/01/18 17:28 Dose: 1 cap Levalbuterol HCl (Xopenex) 0.63 mg IH TIDRESP [facility] Last Admin: 02/01/18 13:21 Dose: 0.63 mg Lidocaine (Lidoderm) 1 ea TD DAILY [facility] Last Admin: 02/01/18 09:46 Dose: 1 ea Magnesium Oxide (Mag-Ox) 400 mg PO DAILY [facility] Last Admin: 02/01/18 09:46 Dose: 400 mg Metoprolol Tartrate (Lopressor) 12.5 mg PO QPM [facility] Last Admin: 02/01/18 17:29 Dose: 12.5 mg Montelukast Sodium (Singulair) 10 mg PO QPM [facility] Last Admin: 02/01/18 17:28 Dose: 10 mg Morphine Sulfate (Morphine) 2 mg IVP Q3H PRN PRN Reason: Pain, severe (8-10) Ranolazine [Ranexa] (500 Mg (Home)) 500 mg PO BID [facility] Last Admin: 02/01/18 17:29 Dose: 500 mg Silodosin [Rapaflo] (8 Mg) (Home Med)) 8 mg PO QPM [facility] Last Admin: 02/01/18 17:29 Dose: 8 mg Ondansetron HCl (Zofran Inj) 4 mg IVP Q6H PRN PRN Reason: Nausea/Vomiting Oxybutynin Chloride (Ditropan Tab) 5 mg PO HS [facility] Last Admin: 01/31/18 22:28 Dose: 5 mg Oxycodone/Acetaminophen (Percocet 5/325 Mg Tab) 1 tab PO Q6H PRN PRN Reason: Pain, moderate (4-7) Stop: 02/03/18 17:05 Vitamin A (Vitamin A & D Oint Ud Foilpak) 1 ea TOP Q8H PRN PRN Reason: DRY NOSTRILS Physical Exam - Constitutional Appears: Chronically Ill - Head Exam Head Exam: NORMAL INSPECTION - Respiratory Exam Respiratory Exam: Decreased Breath Sounds - Cardiovascular Exam Cardiovascular Exam: +S1, +S2 - GI/Abdominal Exam GI & Abdominal Exam: Soft. absent: Tenderness Results - Vital Signs Recent Vital Signs: Last Vital Signs Temp 97.6 F 02/01/18 16:00 Pulse 67 02/01/18 16:00 Resp 18 02/01/18 16:00 BP 117/70 02/01/18 17:29 Pulse Ox 97 02/01/18 16:00 - Labs Labs: Laboratory Results - last 24 hr 01/31/18 02/01/18 02/01/18 21:49 06:48 12:23 POC Glucose (mg/dL) 140 H 116 H 107 02/01/18 17:05 POC Glucose (mg/dL) 111 H Assessment & Plan - Assessment and Plan (Free Text) Plan: Assessment pelvic abscess, growing Pseudomonas S/P colostomy reversal S/P severe sepsis S/P acute renal failure S/P ventilator-dependent respiratory failure due to acute perforated sigmoid colon with associated diverticulitis S/P exploratory laparotomy, sigmoidectomy and colostomy history of sepsis due to acute bronchitis, with systemic viral illness history of UTI with E. 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
[2018-02-02] MEDS: Meropenem IV 1 gm in NS 1 GM/50 ML BAG IVPB SCH ×3 (06:33→21:28)
[2018-02-02] MEDS: Insulin Lispro (humaLOG) MEDIUM Coverage SC SCH ×4 (06:39→21:35)
[2018-02-02 07:14] LABS: ALB/GLOB RATIO 0.9 (1.1-1.8); ALBUMIN 3.4 g/dL (3.0-4.8); ALT/SGPT 31 U/L (7-56); AST/SGOT 34 U/L (17-59); BLOOD UREA NITROGEN 15 mg/dL (7-21); CALCIUM 8.9 mg/dL (8.4-10.5); GFR NON-AFRICAN AMERICAN > 60
[2018-02-02] MEDS: Levalbuterol 0.63 MG/3 ML Inhal Soln UD IH SCH ×3 (07:53→20:02)
--- NOTE | 2018-02-02 08:10 | PN ---
DATE: 02/02/2018 SUBJECTIVE: Patient is in bed in no acute distress, nontoxic, seen earlier today in room 315. PHYSICAL EXAMINATION: VITAL SIGNS: Temperature 97, blood pressure 117/60, respiratory rate 18. HEENT: Examination of HEENT is unremarkable. NECK: Supple. LUNGS: Decreased breath sounds. HEART: Normal S1, S2. ABDOMEN: Soft, nontender. No rebound or guarding. No masses. LABORATORY DATA: Laboratory examination reveals the patient's culture is Pseudomonas from the wound. ASSESSMENT AND PLAN: This is a 77-year-old male with mantle cell lymphoma, history of chemotherapy, coronary artery disease, benign prostatic hypertrophy, dyslipidemia, history of urinary tract infection, history of candidemia, history of bilateral pneumonia, diverticulitis, sigmoid resection and colostomy who is admitted with sepsis, found to have pseudomonas intraabdominal abscess. CAT scan guided drainage, currently on meropenem. Will need repeat imaging and follow up of the size and review of orders reveals the patient to be on meropenem. This patient was having extensive medical history including coronary artery disease, benign prostatic hypertrophy, dyslipidemia, urinary tract infection, history of candidemia, history of bilateral pneumonia, diverticulitis and sigmoid resection, colostomy and reversal of the colostomy complicated with a pelvic abscess on CAT scan and the patient with mantle cell lymphoma. We will follow with you. Marvin Callahan MD
[2018-02-02 08:33] LABS: WHITE BLOOD COUNT 6.9 10^3/uL (4.5-11.0)
[2018-02-02 08:34] LABS: BASO # 0.02 K/mm3 (0.0-2.0); BASO % 0.3 % (0.0-3.0); EOS # 0.3 (0.0-0.7); EOS % 4.4 % (1.5-5.0); GRAN # 3.87 (1.4-6.5); GRAN % 56.1 % (50.0-68.0); HEMOGLOBIN 13.6 g/dL (14.0-18.0); LYMPH # 2.2 (1.2-3.4); LYMPH % 31.2 % (22.0-35.0); MEAN CELL VOLUME 88.2 fl (80.0-105.0); MEAN CORPUSCULAR HEMOGLOBIN 29.1 pg (25.0-35.0); MEAN CORPUSCULAR HGB CONC 32.9 g/dl (31.0-37.0); MEAN PLATELET VOLUME 10.3 fl (7.0-11.0); MONO # 0.6 (0.1-0.6); RBC 4.68 10^6/uL (3.5-6.1); RED CELL DISTRIBUTION WIDTH 15.8 % (11.5-14.5)
[2018-02-02] MEDS: Magnesium Oxide 400 mg Tab UD PO SCH (09:07)
[2018-02-02] MEDS: Lidocaine 5% Patch TD SCH (09:07)
[2018-02-02] MEDS: Lactobacillus Acidophilus 500 MU Cap PO SCH ×2 (09:07→17:20)
[2018-02-02] MEDS: RANOLAZINE 500 MG PO SCH ×2 (09:08→17:22)
[2018-02-02] MEDS: SILODOSIN 8 MG PO SCH (17:22)
--- NOTE | 2018-02-02 23:10 | PN ---
DATE: 02/02/2018 SUBJECTIVE: This patient was seen and evaluated today. The patient is ambulating, went to the gym today, feeling better. He wants to get off his drainage catheter. PHYSICAL EXAMINATION: VITAL SIGNS: Temperature is 97, pulse 58, blood pressure is 156/85. HEENT: Atraumatic, anicteric. NECK: Supple. HEART: S1 and S2 heard. LUNGS: Bilateral air entry present. ABDOMEN: Soft. The catheter in drainage present. EXTREMITIES: No cyanosis, no clubbing. NEUROLOGIC: Alert, and oriented. Moves all extremities. LABORATORY DATA: WBC 6.9, hemoglobin 13.6, hematocrit 41.3, platelets 244. Chemistries: Essentially unremarkable except alk phos is mildly elevated at 160. IMPRESSION: Status post reversal of the colostomy, complicated postoperative course in the patient regarding non-ST segment myocardial infarction, status post cardiac catheter and the patient readmitted again with fever and pelvic collection, status post drainage, presently on antibiotics. Recommended repeat CT before removal of the catheter. His other comorbidities include mantle cell lymphoma. Thank you very much for allowing us to participate in the care of the patient. Lakisha Casiano MD
[2018-02-03] MEDS: Meropenem IV 1 gm in NS 1 GM/50 ML BAG IVPB SCH ×3 (06:13→21:13)
[2018-02-03] MEDS: Insulin Lispro (humaLOG) MEDIUM Coverage SC SCH ×4 (06:43→21:49)
[2018-02-03] MEDS: Levalbuterol 0.63 MG/3 ML Inhal Soln UD IH SCH ×3 (07:29→20:03)
[2018-02-03] MEDS: Lactobacillus Acidophilus 500 MU Cap PO SCH ×2 (09:34→17:10)
[2018-02-03] MEDS: Lidocaine 5% Patch TD SCH (09:34)
[2018-02-03] MEDS: RANOLAZINE 500 MG PO SCH ×2 (09:35→17:12)
[2018-02-03] MEDS: Magnesium Oxide 400 mg Tab UD PO SCH (09:35)
--- NOTE | 2018-02-03 16:30 | CP.PCM.PN ---
Subjective - Date & Time of Evaluation Date of Evaluation: 02/02/18 Time of Evaluation: 19:00 - Subjective Subjective: Some minor tenderness at pigtail cite. No complaints otherwise ROS: 12 ROS otherwise negative Objective - Vital Signs/Intake and Output Vital Signs (last 24 hours): Temp Pulse Resp BP Pulse Ox 98.1 F 74 20 124/70 95 02/03/18 16:00 02/03/18 16:00 02/03/18 16:00 02/03/18 16:00 02/03/18 16:00 - Medications Medications: Current Medications Acetaminophen (Tylenol 325mg Tab) 650 mg PO Q4H PRN PRN Reason: Fever >100.4 F Aluminum Hydroxide (Aluminum Hydroxide Gel 320mg /5ml Susp (Bulk)) 30 ml PO Q4H PRN PRN Reason: Indigestion Aspirin (Aspirin Chewable) 81 mg PO 0800 [facility] Last Admin: 02/03/18 08:17 Dose: 81 mg Atorvastatin Calcium (Lipitor) 20 mg PO QPM [facility] Last Admin: 02/02/18 17:21 Dose: 20 mg Clopidogrel Bisulfate (Plavix) 75 mg PO DAILY [facility] Last Admin: 02/03/18 09:35 Dose: 75 mg Clotrimazole (Mycelex Gael) 10 mg MT 5XD [facility] Last Admin: 02/03/18 13:41 Dose: 10 mg Ezetimibe (Zetia) 10 mg PO DAILY [facility] Last Admin: 02/03/18 09:36 Dose: 10 mg Meropenem (Merrem Iv 1 Gm Premix) 1 gm in 50 mls @ 100 mls/hr IVPB Q8 [facility]; Protocol Stop: 02/08/18 22:01 Last Admin: 02/03/18 13:41 Dose: 100 mls/hr Insulin Human Lispro (Humalog Med) 0 units SC ACHS [facility]; Protocol Last Admin: 02/03/18 13:34 Dose: Not Given Lactobacillus Acidophilus (Bacid Acidophilus) 1 cap PO BID [facility] Last Admin: 02/03/18 09:34 Dose: 1 cap Levalbuterol HCl (Xopenex) 0.63 mg IH TIDRESP [facility] Last Admin: 02/03/18 13:55 Dose: 0.63 mg Lidocaine (Lidoderm) 1 ea TD DAILY [facility] Last Admin: 02/03/18 09:34 Dose: 1 ea Magnesium Oxide (Mag-Ox) 400 mg PO DAILY [facility] Last Admin: 02/03/18 09:35 Dose: 400 mg Metoprolol Tartrate (Lopressor) 12.5 mg PO QPM [facility] Last Admin: 02/02/18 17:21 Dose: 12.5 mg Montelukast Sodium (Singulair) 10 mg PO QPM [facility] Last Admin: 02/02/18 17:23 Dose: 10 mg Morphine Sulfate (Morphine) 2 mg IVP Q3H PRN PRN Reason: Pain, severe (8-10) Ranolazine [Ranexa] (500 Mg (Home)) 500 mg PO BID [facility] Last Admin: 02/03/18 09:35 Dose: 500 mg Silodosin [Rapaflo] (8 Mg) (Home Med)) 8 mg PO QPM [facility] Last Admin: 02/02/18 17:22 Dose: 8 mg Ondansetron HCl (Zofran Inj) 4 mg IVP Q6H PRN PRN Reason: Nausea/Vomiting Oxybutynin Chloride (Ditropan Tab) 5 mg PO HS [facility] Last Admin: 02/02/18 21:28 Dose: 5 mg Oxycodone/Acetaminophen (Percocet 5/325 Mg Tab) 1 tab PO Q6H PRN PRN Reason: Pain, moderate (4-7) Stop: 02/03/18 17:05 Vitamin A (Vitamin A & D Oint Ud Foilpak) 1 ea TOP Q8H PRN PRN Reason: DRY NOSTRILS - Labs Labs: 02/02/18 06:50 02/02/18 06:50 - Constitutional Appears: Non-toxic - Head Exam Head Exam: ATRAUMATIC, NORMAL INSPECTION, NORMOCEPHALIC - Respiratory Exam Respiratory Exam: Clear to Ausculation Bilateral, NORMAL BREATHING PATTERN - Cardiovascular Exam Cardiovascular Exam: REGULAR RHYTHM, +S1, +S2. absent: Murmur - GI/Abdominal Exam GI & Abdominal Exam: Soft, Normal Bowel Sounds. absent: Tenderness - Extremities Exam Extremities Exam: Full ROM, Normal Capillary Refill, Normal Inspection. absent: Joint Swelling, Pedal Edema Assessment and Plan - Assessment and Plan (Free Text) Assessment: Mr. 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 Pigtail drain has minimal output will touch base regarding repeating a CT a/p to reassess if catheter can be removed; Continue to complete abx course for 10-14 days. Tyler Myers MD Oncology
--- NOTE | 2018-02-03 16:31 | CP.PCM.PN ---
Subjective - Date & Time of Evaluation Date of Evaluation: 02/03/18 Time of Evaluation: 18:00 - Subjective Subjective: No active issues today ROS: 12 ROS negative Objective - Vital Signs/Intake and Output Vital Signs (last 24 hours): Temp Pulse Resp BP Pulse Ox 98.1 F 74 20 124/70 95 02/03/18 16:00 02/03/18 16:00 02/03/18 16:00 02/03/18 16:00 02/03/18 16:00 - Medications Medications: Current Medications Acetaminophen (Tylenol 325mg Tab) 650 mg PO Q4H PRN PRN Reason: Fever >100.4 F Aluminum Hydroxide (Aluminum Hydroxide Gel 320mg /5ml Susp (Bulk)) 30 ml PO Q4H PRN PRN Reason: Indigestion Aspirin (Aspirin Chewable) 81 mg PO 0800 [facility] Last Admin: 02/03/18 08:17 Dose: 81 mg Atorvastatin Calcium (Lipitor) 20 mg PO QPM [facility] Last Admin: 02/02/18 17:21 Dose: 20 mg Clopidogrel Bisulfate (Plavix) 75 mg PO DAILY [facility] Last Admin: 02/03/18 09:35 Dose: 75 mg Clotrimazole (Mycelex Gael) 10 mg MT 5XD [facility] Last Admin: 02/03/18 13:41 Dose: 10 mg Ezetimibe (Zetia) 10 mg PO DAILY [facility] Last Admin: 02/03/18 09:36 Dose: 10 mg Meropenem (Merrem Iv 1 Gm Premix) 1 gm in 50 mls @ 100 mls/hr IVPB Q8 [facility]; Protocol Stop: 02/08/18 22:01 Last Admin: 02/03/18 13:41 Dose: 100 mls/hr Insulin Human Lispro (Humalog Med) 0 units SC ACHS [facility]; Protocol Last Admin: 02/03/18 13:34 Dose: Not Given Lactobacillus Acidophilus (Bacid Acidophilus) 1 cap PO BID [facility] Last Admin: 02/03/18 09:34 Dose: 1 cap Levalbuterol HCl (Xopenex) 0.63 mg IH TIDRESP [facility] Last Admin: 02/03/18 13:55 Dose: 0.63 mg Lidocaine (Lidoderm) 1 ea TD DAILY [facility] Last Admin: 02/03/18 09:34 Dose: 1 ea Magnesium Oxide (Mag-Ox) 400 mg PO DAILY [facility] Last Admin: 02/03/18 09:35 Dose: 400 mg Metoprolol Tartrate (Lopressor) 12.5 mg PO QPM [facility] Last Admin: 02/02/18 17:21 Dose: 12.5 mg Montelukast Sodium (Singulair) 10 mg PO QPM [facility] Last Admin: 02/02/18 17:23 Dose: 10 mg Morphine Sulfate (Morphine) 2 mg IVP Q3H PRN PRN Reason: Pain, severe (8-10) Ranolazine [Ranexa] (500 Mg (Home)) 500 mg PO BID [facility] Last Admin: 02/03/18 09:35 Dose: 500 mg Silodosin [Rapaflo] (8 Mg) (Home Med)) 8 mg PO QPM [facility] Last Admin: 02/02/18 17:22 Dose: 8 mg Ondansetron HCl (Zofran Inj) 4 mg IVP Q6H PRN PRN Reason: Nausea/Vomiting Oxybutynin Chloride (Ditropan Tab) 5 mg PO HS [facility] Last Admin: 02/02/18 21:28 Dose: 5 mg Oxycodone/Acetaminophen (Percocet 5/325 Mg Tab) 1 tab PO Q6H PRN PRN Reason: Pain, moderate (4-7) Stop: 02/03/18 17:05 Vitamin A (Vitamin A & D Oint Ud Foilpak) 1 ea TOP Q8H PRN PRN Reason: DRY NOSTRILS - Labs Labs: 02/02/18 06:50 02/02/18 06:50 - Constitutional Appears: Non-toxic - Respiratory Exam Respiratory Exam: Clear to Ausculation Bilateral, NORMAL BREATHING PATTERN - Cardiovascular Exam Cardiovascular Exam: REGULAR RHYTHM, +S1, +S2. absent: Murmur - GI/Abdominal Exam GI & Abdominal Exam: Soft, Normal Bowel Sounds. absent: Tenderness - Extremities Exam Extremities Exam: Full ROM, Normal Capillary Refill, Normal Inspection. absent: Joint Swelling, Pedal Edema Assessment and Plan - Assessment and Plan (Free Text) Assessment: Mr. 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 Pigtail drain has minimal output will touch base regarding repeating a CT a/p to reassess if catheter can be removed; Continue to complete abx course for 10-14 days. Tyler Myers MD Oncology
[2018-02-03] MEDS: SILODOSIN 8 MG PO SCH (17:12)
--- NOTE | 2018-02-03 20:49 | PN ---
DATE: 02/03/2018 SUBJECTIVE: The patient is in bed in no acute distress, nontoxic. PHYSICAL EXAMINATION: VITAL SIGNS: Temperature is 97, blood pressure is 156/80, respiratory rate of 18, and heart rate of 58. HEENT: Examination of HEENT is unremarkable. NECK: Supple. LUNGS: Decreased breath sounds. HEART: Normal S1, S2. ABDOMEN: Soft. LABORATORY DATA: Laboratory examination reveals a white count of 6.9 and hemoglobin of 13, and platelets of 244. Chemistries reveal a BUN of 15, creatinine of 0.9. Alk phos is 160. ASSESSMENT AND PLAN: A 77-year-old with mantle cell lymphoma, history of chemotherapy, coronary artery disease, benign prostatic hypertrophy, dyslipidemia, history of urinary tract infection, history of candidemia, history of bilateral pneumonia, diverticulitis, sigmoid resection and colostomy, admitted with sepsis, found to have pseudomonas intraabdominal abscess. He had a CAT scan-guided drainage, currently on meropenem, doing well, tolerating medications with a normal WBC of 6.9 and no pseudomonas in be aspirate. We will continue the present course. We will need a repeat CAT scan prior to removal of the catheter. Continue the meropenem at this point for pseudomonas collection in a patient with penicillin allergy. Marvin Callahan MD
[2018-02-04] MEDS: Meropenem IV 1 gm in NS 1 GM/50 ML BAG IVPB SCH ×3 (06:17→21:36)
[2018-02-04] MEDS: Insulin Lispro (humaLOG) MEDIUM Coverage SC SCH ×4 (07:01→21:35)
[2018-02-04] MEDS: Levalbuterol 0.63 MG/3 ML Inhal Soln UD IH SCH ×3 (07:11→21:40)
--- NOTE | 2018-02-04 08:40 | CP.PCM.PN ---
Subjective - Date & Time of Evaluation Date of Evaluation: 02/04/18 Time of Evaluation: 08:00 - Subjective Subjective: Chris Stallings- Internal Medicine Resident- Progress Note on Behalf of Hematology/Oncology Subjective: Patient seen and examined. No acute events overnight. States he is experiencing itching in the inner groin region bilaterally. Itching is intermittent in nature without provoking event. States he has experienced the same symptoms in the past. Denies fever, chills, chest pain, shortness of breath, abdominal pain, nausea, vomiting, diarrhea, constipation, and urinary symptoms. 12 Point ROS Negative Except as indicated in HPI Physical Examination: - Constitutional Constitutional: Non-toxic, No Acute Distress - Head Exam Head Exam: ATRAUMATIC, NORMOCEPHALIC - Eye Exam Eye Exam: EOMI, PERRL. absent: Scleral icterus - ENT Exam ENT Exam: Mucous Membranes Moist, Normal Oropharynx - Neck Exam Neck Exam: Full ROM, Normal Inspection - Respiratory Exam Respiratory Exam: Clear to Ausculation Bilateral. absent: Rales, Rhonchi, Wheezes - Cardiovascular Exam Cardiovascular Exam: RRR, +S1, +S2. absent: Gallop, Rubs - GI/Abdominal Exam GI & Abdominal Exam: Soft, Normal Bowel Sounds. absent: Distended, Firm, Guarding, Rigid, Tenderness, Organomegaly, Rebound - Exam Exam: Erythema noted in bilaterally inner groin/parascrotal region - Extremities Exam Extremities Exam: Normal Inspection. absent: Pedal Edema - Neurological Exam Neurological Exam: Alert, Awake, Orientated x 3 - Psychiatric Exam Psychiatric exam: Normal Affect, Normal Mood - Skin Skin Exam: Dry, Intact, Normal Color, Warm Assessment and Plan: 77 year old male with a past medical history significant for stage IV mantle cell lymphoma (quiescence), lung cancer s/p wedge resection, hypoglobulinemia, CAD s/p stent placement, DM2, HTN, COPD, and perforated sigmoid diverticulitis s/p Milli procedure who was admitted for fevers and chills. Fever/Chills - 01/23/2018 CT Abdomen and Pelvis with contrast- Decrease in inflammatory changes at the sigmoid anastomotic suture line. Stable well-formed fluid collection interposed between the sigmoid and sacrum. Interposed between the anastomotic suture line in the sacrum is a well-formed collection measuring 4.2 x 7 cm. This is either postoperative seroma or abscess. - IR consulted- will need to repeat CT scan to assess for fluid collection prior to catether removal - ID consulted- appreciate recommendations, continue meropenem- will need to complete 10-14 day course Fungal Dermatitis - Nystatin cream to affected region TID Back Pain - neurology consulted- appreciate recommendations - lidoderm patch to affected region 12 on 12 off History of CAD -s/p Cardiac cath with two BRAULIO placed -Continue Plavix, ASA, Lipitor, zetia, and Lopressor Normocytic Anemia -H/H stable -Continue to monitor with daily CBC's History of COPD -Continue xopenex -Continue Singulair History of BPH -Continue Rapaflo and Oxybutynin History of DM2 -SSI-Med and Accuchecks ACHS Deconditioning - continue PT in TCU setting Prophylaxis - GI Prophylaxis: famotidine - DVT Prophylaxis: SCD's Please make note this is a complex patient with multiple comorbid medical issues. We will continue to monitor the patient patient aggressively. Case thoroughly discussed with patient's . Time spend with the patient is greater than 45 minutes. Patient case discussed with, and plan approved by attending physician, Dr. Minor. Objective - Vital Signs/Intake and Output Vital Signs (last 24 hours): Temp Pulse Resp BP Pulse Ox 98.1 F 74 20 124/70 95 02/03/18 16:00 02/03/18 17:11 02/03/18 16:00 02/03/18 17:11 02/03/18 16:00 - Medications Medications: Current Medications Acetaminophen (Tylenol 325mg Tab) 650 mg PO Q4H PRN PRN Reason: Fever >100.4 F Aluminum Hydroxide (Aluminum Hydroxide Gel 320mg /5ml Susp (Bulk)) 30 ml PO Q4H PRN PRN Reason: Indigestion Aspirin (Aspirin Chewable) 81 mg PO 0800 [facility] Last Admin: 02/03/18 08:17 Dose: 81 mg Atorvastatin Calcium (Lipitor) 20 mg PO QPM [facility] Last Admin: 02/03/18 17:11 Dose: 20 mg Clopidogrel Bisulfate (Plavix) 75 mg PO DAILY [facility] Last Admin: 02/03/18 09:35 Dose: 75 mg Clotrimazole (Mycelex Gael) 10 mg MT 5XD [facility] Last Admin: 02/04/18 06:18 Dose: 10 mg Ezetimibe (Zetia) 10 mg PO DAILY [facility] Last Admin: 02/03/18 09:36 Dose: 10 mg Meropenem (Merrem Iv 1 Gm Premix) 1 gm in 50 mls @ 100 mls/hr IVPB Q8 [facility]; Protocol Stop: 02/08/18 22:01 Last Admin: 02/04/18 06:17 Dose: 100 mls/hr Insulin Human Lispro (Humalog Med) 0 units SC ACHS [facility]; Protocol Last Admin: 02/04/18 07:01 Dose: Not Given Lactobacillus Acidophilus (Bacid Acidophilus) 1 cap PO BID [facility] Last Admin: 02/03/18 17:10 Dose: 1 cap Levalbuterol HCl (Xopenex) 0.63 mg IH TIDRESP [facility] Last Admin: 02/04/18 07:11 Dose: 0.63 mg Lidocaine (Lidoderm) 1 ea TD DAILY [facility] Last Admin: 02/03/18 09:34 Dose: 1 ea Magnesium Oxide (Mag-Ox) 400 mg PO DAILY [facility] Last Admin: 02/03/18 09:35 Dose: 400 mg Metoprolol Tartrate (Lopressor) 12.5 mg PO QPM [facility] Last Admin: 02/03/18 17:11 Dose: 12.5 mg Montelukast Sodium (Singulair) 10 mg PO QPM [facility] Last Admin: 02/03/18 17:13 Dose: 10 mg Morphine Sulfate (Morphine) 2 mg IVP Q3H PRN PRN Reason: Pain, severe (8-10) Ranolazine [Ranexa] (500 Mg (Home)) 500 mg PO BID [facility] Last Admin: 02/03/18 17:12 Dose: 500 mg Silodosin [Rapaflo] (8 Mg) (Home Med)) 8 mg PO QPM [facility] Last Admin: 02/03/18 17:12 Dose: 8 mg Ondansetron HCl (Zofran Inj) 4 mg IVP Q6H PRN PRN Reason: Nausea/Vomiting Oxybutynin Chloride (Ditropan Tab) 5 mg PO HS [facility] Last Admin: 02/03/18 21:12 Dose: 5 mg Vitamin A (Vitamin A & D Oint Ud Foilpak) 1 ea TOP Q8H PRN PRN Reason: DRY NOSTRILS - Labs Labs: 02/02/18 06:50 02/02/18 06:50
[2018-02-04] MEDS: Lactobacillus Acidophilus 500 MU Cap PO SCH ×2 (09:29→18:37)
[2018-02-04] MEDS: Lidocaine 5% Patch TD SCH (09:29)
[2018-02-04] MEDS: Magnesium Oxide 400 mg Tab UD PO SCH (09:29)
[2018-02-04] MEDS: RANOLAZINE 500 MG PO SCH ×2 (09:30→18:40)
[2018-02-04] MEDS: Nystatin 100,000 Units/gm Cream(15 gm) TOP SCH ×2 (09:30→18:39)
[2018-02-04] MEDS: SILODOSIN 8 MG PO SCH (18:40)
--- NOTE | 2018-02-04 21:40 | CP.PCM.PN ---
Subjective - Date & Time of Evaluation Date of Evaluation: 02/04/18 Time of Evaluation: 10:05 - Subjective Subjective: Afebrile, no fevers, no abdominal pain, no diarrhea. Objective - Vital Signs/Intake and Output Vital Signs (last 24 hours): Temp Pulse Resp BP Pulse Ox 97.9 F 64 20 118/73 96 02/04/18 16:00 02/04/18 18:38 02/04/18 16:00 02/04/18 18:38 02/04/18 16:00 - Medications Medications: Current Medications Acetaminophen (Tylenol 325mg Tab) 650 mg PO Q4H PRN PRN Reason: Fever >100.4 F Last Admin: 02/04/18 11:07 Dose: 650 mg Aluminum Hydroxide (Aluminum Hydroxide Gel 320mg /5ml Susp (Bulk)) 30 ml PO Q4H PRN PRN Reason: Indigestion Aspirin (Aspirin Chewable) 81 mg PO 0800 [facility] Last Admin: 02/04/18 08:36 Dose: 81 mg Atorvastatin Calcium (Lipitor) 20 mg PO QPM [facility] Last Admin: 02/04/18 18:38 Dose: 20 mg Clopidogrel Bisulfate (Plavix) 75 mg PO DAILY [facility] Last Admin: 02/04/18 09:30 Dose: 75 mg Clotrimazole (Mycelex Gael) 10 mg MT 5XD [facility] Last Admin: 02/04/18 21:36 Dose: 10 mg Ezetimibe (Zetia) 10 mg PO DAILY [facility] Last Admin: 02/04/18 09:30 Dose: 10 mg Meropenem (Merrem Iv 1 Gm Premix) 1 gm in 50 mls @ 100 mls/hr IVPB Q8 [facility]; Protocol Stop: 02/08/18 22:01 Last Admin: 02/04/18 21:36 Dose: 100 mls/hr Insulin Human Lispro (Humalog Med) 0 units SC ACHS [facility]; Protocol Last Admin: 02/04/18 21:35 Dose: Not Given Lactobacillus Acidophilus (Bacid Acidophilus) 1 cap PO BID [facility] Last Admin: 02/04/18 18:37 Dose: 1 cap Levalbuterol HCl (Xopenex) 0.63 mg IH TIDRESP [facility] Last Admin: 02/04/18 13:24 Dose: Not Given Lidocaine (Lidoderm) 1 ea TD DAILY [facility] Last Admin: 02/04/18 09:29 Dose: 1 ea Magnesium Oxide (Mag-Ox) 400 mg PO DAILY [facility] Last Admin: 02/04/18 09:29 Dose: 400 mg Metoprolol Tartrate (Lopressor) 12.5 mg PO QPM [facility] Last Admin: 02/04/18 18:38 Dose: 12.5 mg Montelukast Sodium (Singulair) 10 mg PO QPM [facility] Last Admin: 02/04/18 18:41 Dose: 10 mg Ranolazine [Ranexa] (500 Mg (Home)) 500 mg PO BID [facility] Last Admin: 02/04/18 18:40 Dose: 500 mg Silodosin [Rapaflo] (8 Mg) (Home Med)) 8 mg PO QPM [facility] Last Admin: 02/04/18 18:40 Dose: 8 mg Nystatin (Mycostatin Cream) 0 ea TOP BID [facility] Last Admin: 02/04/18 18:39 Dose: 1 applic Ondansetron HCl (Zofran Inj) 4 mg IVP Q6H PRN PRN Reason: Nausea/Vomiting Last Admin: 02/04/18 14:05 Dose: 4 mg Oxybutynin Chloride (Ditropan Tab) 5 mg PO HS [facility] Last Admin: 02/04/18 21:35 Dose: 5 mg Vitamin A (Vitamin A & D Oint Ud Foilpak) 1 ea TOP Q8H PRN PRN Reason: DRY NOSTRILS - Labs Labs: 02/02/18 06:50 02/02/18 06:50 - Constitutional Appears: Chronically Ill - Head Exam Head Exam: NORMAL INSPECTION - Respiratory Exam Respiratory Exam: Decreased Breath Sounds - Cardiovascular Exam Cardiovascular Exam: +S1, +S2 - GI/Abdominal Exam GI & Abdominal Exam: Soft. absent: Tenderness Assessment and Plan - Assessment and Plan (Free Text) Plan: Assessment pelvic abscess, growing Pseudomonas S/P colostomy reversal S/P severe sepsis S/P acute renal failure S/P ventilator-dependent respiratory failure due to acute perforated sigmoid colon with associated diverticulitis S/P exploratory laparotomy, sigmoidectomy and colostomy history of sepsis due to acute bronchitis, with systemic viral illness history of UTI with E. 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
[2018-02-04] MEDS: Morphine 2 mg/ml ISec IVP PRN (22:10)
[2018-02-05] MEDS: Meropenem IV 1 gm in NS 1 GM/50 ML BAG IVPB SCH ×3 (05:55→22:23)
[2018-02-05] MEDS: Insulin Lispro (humaLOG) MEDIUM Coverage SC SCH ×4 (06:35→21:58)
[2018-02-05] MEDS: Levalbuterol 0.63 MG/3 ML Inhal Soln UD IH SCH ×3 (07:12→20:51)
[2018-02-05] MEDS: Lidocaine 5% Patch TD SCH (10:28)
[2018-02-05] MEDS: Lactobacillus Acidophilus 500 MU Cap PO SCH ×2 (10:28→17:39)
[2018-02-05] MEDS: Magnesium Oxide 400 mg Tab UD PO SCH (10:28)
[2018-02-05] MEDS: Nystatin 100,000 Units/gm Cream(15 gm) TOP SCH ×2 (10:29→17:40)
[2018-02-05] MEDS: RANOLAZINE 500 MG PO SCH ×2 (10:29→17:41)
--- NOTE | 2018-02-05 13:27 | PN ---
DATE: 02/05/2018 SUBJECTIVE: The patient is in bed, in no acute distress. Seen earlier today. PHYSICAL EXAMINATION: VITAL SIGNS: Temperature is 98, blood pressure is 120/70, respiratory rate 16. HEENT: Unremarkable. NECK: Supple. LUNGS: Have decreased breath sounds. HEART: Normal S1, S2. ABDOMEN: Soft. LABORATORY EXAMINATION: Reveals a white count of 6.9, hemoglobin of 13. Chemistries reveals a BUN of 15, creatinine of 0.9 and alk phos is 160. Microbiology reveals the patient's cultures and Pseudomonas from the aspirate culture. ASSESSMENT AND PLAN: A 77-year-old male with mantle cell lymphoma, history of chemotherapy, coronary artery disease, benign prostatic hyperplasia, dyslipidemia, history of urinary tract infection, candidemia, bilateral pneumonia, diverticulitis, sigmoid resection, colostomy, admitted with sepsis, found to have Pseudomonas intra-abdominal abscess and CT scan guided aspirate, currently on meropenem and review of orders reveals the patient to have meropenem and will need imaging repeat imaging to see resolution of the . Today is day #9 from the time of the drainage with continue the meropenem, may need longer duration based on repeat imaging. Marvin Callahan MD
[2018-02-05] MEDS: SILODOSIN 8 MG PO SCH (17:40)
--- NOTE | 2018-02-05 18:13 | CP.PCM.PN ---
Subjective - Date & Time of Evaluation Date of Evaluation: 02/05/18 Time of Evaluation: 07:30 - Subjective Subjective: Patient seen and examined at bedside. He reports that his pain is controlled and that he is not bleeding from gluteal area. No adverse events noted overnight. Objective - Vital Signs/Intake and Output Vital Signs (last 24 hours): Temp Pulse Resp BP Pulse Ox 98.2 F 66 18 122/79 96 02/05/18 16:00 02/05/18 17:39 02/05/18 16:00 02/05/18 17:39 02/05/18 16:00 - Medications Medications: Current Medications Acetaminophen (Tylenol 325mg Tab) 650 mg PO Q4H PRN PRN Reason: Fever >100.4 F Last Admin: 02/04/18 11:07 Dose: 650 mg Aluminum Hydroxide (Aluminum Hydroxide Gel 320mg /5ml Susp (Bulk)) 30 ml PO Q4H PRN PRN Reason: Indigestion Aspirin (Aspirin Chewable) 81 mg PO 0800 [facility] Last Admin: 02/05/18 08:06 Dose: 81 mg Atorvastatin Calcium (Lipitor) 20 mg PO QPM [facility] Last Admin: 02/05/18 17:39 Dose: 20 mg Clopidogrel Bisulfate (Plavix) 75 mg PO DAILY [facility] Last Admin: 02/05/18 10:29 Dose: 75 mg Clotrimazole (Mycelex Gael) 10 mg MT 5XD [facility] Last Admin: 02/05/18 17:40 Dose: 10 mg Ezetimibe (Zetia) 10 mg PO DAILY [facility] Last Admin: 02/05/18 10:29 Dose: 10 mg Meropenem (Merrem Iv 1 Gm Premix) 1 gm in 50 mls @ 100 mls/hr IVPB Q8 [facility]; Protocol Stop: 02/08/18 22:01 Last Admin: 02/05/18 14:20 Dose: 100 mls/hr Insulin Human Lispro (Humalog Med) 0 units SC ACHS [facility]; Protocol Last Admin: 02/05/18 17:39 Dose: Not Given Lactobacillus Acidophilus (Bacid Acidophilus) 1 cap PO BID [facility] Last Admin: 02/05/18 17:39 Dose: 1 cap Levalbuterol HCl (Xopenex) 0.63 mg IH TIDRESP [facility] Last Admin: 02/05/18 13:20 Dose: Not Given Lidocaine (Lidoderm) 1 ea TD DAILY [facility] Last Admin: 02/05/18 10:28 Dose: 1 ea Magnesium Oxide (Mag-Ox) 400 mg PO DAILY [facility] Last Admin: 02/05/18 10:28 Dose: 400 mg Metoprolol Tartrate (Lopressor) 12.5 mg PO QPM [facility] Last Admin: 02/05/18 17:39 Dose: 12.5 mg Montelukast Sodium (Singulair) 10 mg PO QPM [facility] Last Admin: 02/05/18 17:41 Dose: 10 mg Morphine Sulfate (Morphine) 2 mg IVP Q4H PRN PRN Reason: severe pain Last Admin: 02/04/18 22:10 Dose: 2 mg Ranolazine [Ranexa] (500 Mg (Home)) 500 mg PO BID [facility] Last Admin: 02/05/18 17:41 Dose: 500 mg Silodosin [Rapaflo] (8 Mg) (Home Med)) 8 mg PO QPM [facility] Last Admin: 02/05/18 17:40 Dose: 8 mg Nystatin (Mycostatin Cream) 0 ea TOP BID [facility] Last Admin: 02/05/18 17:40 Dose: 1 applic Ondansetron HCl (Zofran Inj) 4 mg IVP Q6H PRN PRN Reason: Nausea/Vomiting Last Admin: 02/04/18 14:05 Dose: 4 mg Oxybutynin Chloride (Ditropan Tab) 5 mg PO HS [facility] Last Admin: 02/04/18 21:35 Dose: 5 mg Vitamin A (Vitamin A & D Oint Ud Foilpak) 1 ea TOP Q8H PRN PRN Reason: DRY NOSTRILS - Labs Labs: 02/02/18 06:50 02/02/18 06:50 - Constitutional Appears: Well, Non-toxic - Head Exam Head Exam: ATRAUMATIC, NORMOCEPHALIC - Eye Exam Eye Exam: EOMI, Normal appearance - ENT Exam ENT Exam: Mucous Membranes Moist - Neck Exam Neck Exam: Normal Inspection - Respiratory Exam Respiratory Exam: Clear to Ausculation Bilateral, NORMAL BREATHING PATTERN. absent: Accessory Muscle Use - Cardiovascular Exam Cardiovascular Exam: RRR, +S1, +S2 - GI/Abdominal Exam GI & Abdominal Exam: Soft, Normal Bowel Sounds. absent: Rigid, Rebound - Extremities Exam Extremities Exam: Normal Inspection. absent: Calf Tenderness - Neurological Exam Neurological Exam: Alert, Awake, Oriented x3 - Psychiatric Exam Psychiatric exam: Normal Affect, Normal Mood - Skin Skin Exam: Dry, Intact, Normal Color, Warm Additional comments: left gluteal region is without erythema and no drainage from wound vacuum Assessment and Plan - Assessment and Plan (Free Text) Assessment: Assessment and Plan: 77 year old male with a past medical history significant for stage IV mantle cell lymphoma (quiescence), lung cancer s/p wedge resection, hypoglobulinemia, CAD s/p stent placement, DM2, HTN, COPD, and perforated sigmoid diverticulitis s/p Milli procedure who was admitted for fevers and chills. Fever/Chills - 01/23/2018 CT Abdomen and Pelvis with contrast- Decrease in inflammatory changes at the sigmoid anastomotic suture line. Stable well-formed fluid collection interposed between the sigmoid and sacrum. Interposed between the anastomotic suture line in the sacrum is a well-formed collection measuring 4.2 x 7 cm. This is either postoperative seroma or abscess. - IR consulted- will need to repeat CT scan to assess for fluid collection prior to catether removal - ID consulted- appreciate recommendations, continue meropenem- will need to complete 10-14 day course - day 8 of 10-14 of Merrem Fungal Dermatitis - Nystatin cream to affected region TID Back Pain - neurology consulted- appreciate recommendations - lidoderm patch to affected region 12 on 12 off History of CAD -s/p Cardiac cath with two BRAULIO placed -Continue Plavix, ASA, Lipitor, zetia, and Lopressor Normocytic Anemia -H/H stable -Continue to monitor with daily CBC's History of COPD -Continue xopenex -Continue Singulair History of BPH -Continue Rapaflo and Oxybutynin History of DM2 -SSI-Med and Accuchecks ACHS Deconditioning - continue PT in TCU setting Prophylaxis - GI Prophylaxis: famotidine - DVT Prophylaxis: SCD's Please make note this is a complex patient with multiple comorbid medical issues. We will continue to monitor the patient patient aggressively. Patient case discussed with, and plan approved by attending physician, Dr. Minor.
[2018-02-05] MEDS: Morphine 2 mg/ml ISec IVP PRN (22:08)
[2018-02-06] MEDS: Meropenem IV 1 gm in NS 1 GM/50 ML BAG IVPB SCH ×3 (06:47→21:55)
[2018-02-06] MEDS: Insulin Lispro (humaLOG) MEDIUM Coverage SC SCH ×4 (07:05→21:52)
[2018-02-06] MEDS: Levalbuterol 0.63 MG/3 ML Inhal Soln UD IH SCH ×3 (07:21→20:42)
[2018-02-06] MEDS ORDERED: Barium Sulfate Susp 2.1% w/v, 2.0% w/w 450 mL Bottle PO ONE (10:16)
[2018-02-06] MEDS: Lidocaine 5% Patch TD SCH (10:33)
[2018-02-06] MEDS: Magnesium Oxide 400 mg Tab UD PO SCH (10:33)
[2018-02-06] MEDS: Lactobacillus Acidophilus 500 MU Cap PO SCH ×2 (10:33→17:34)
[2018-02-06] MEDS: RANOLAZINE 500 MG PO SCH ×2 (10:35→17:33)
[2018-02-06] MEDS: Nystatin 100,000 Units/gm Cream(15 gm) TOP SCH ×2 (10:36→17:32)
--- NOTE | 2018-02-06 11:55 | CP.PCM.PN ---
Subjective - Date & Time of Evaluation Date of Evaluation: 02/06/18 Time of Evaluation: 09:00 - Subjective Subjective: Chris Stallings- Internal Medicine Resident- Progress Note on Behalf of Hematology/Oncology Subjective: Patient seen and examined. No acute events overnight. States itching in the inner groin region bilaterally has significantly improved after using nystatin cream. Admits to intermittent pain in the sacral region near catheter site. Denies fever, chills, chest pain, shortness of breath, abdominal pain, nausea, vomiting, diarrhea, constipation, and urinary symptoms. 12 Point ROS Negative Except as indicated in HPI Physical Examination: - Constitutional Constitutional: Non-toxic, No Acute Distress - Head Exam Head Exam: ATRAUMATIC, NORMOCEPHALIC - Eye Exam Eye Exam: EOMI, PERRL. absent: Scleral icterus - ENT Exam ENT Exam: Mucous Membranes Moist, Normal Oropharynx - Neck Exam Neck Exam: Full ROM, Normal Inspection - Respiratory Exam Respiratory Exam: Clear to Ausculation Bilateral. absent: Rales, Rhonchi, Wheezes - Cardiovascular Exam Cardiovascular Exam: RRR, +S1, +S2. absent: Gallop, Rubs - GI/Abdominal Exam GI & Abdominal Exam: Soft, Normal Bowel Sounds. absent: Distended, Firm, Guarding, Rigid, Tenderness, Organomegaly, Rebound - Exam Exam: Erythema noted in bilaterally inner groin/parascrotal region - Extremities Exam Extremities Exam: Normal Inspection. absent: Pedal Edema - Neurological Exam Neurological Exam: Alert, Awake, Orientated x 3 - Psychiatric Exam Psychiatric exam: Normal Affect, Normal Mood - Skin Skin Exam: Dry, Intact, Normal Color, Warm, catheter site clean, dry, intact Assessment and Plan: 77 year old male with a past medical history significant for stage IV mantle cell lymphoma (quiescence), lung cancer s/p wedge resection, hypoglobulinemia, CAD s/p stent placement, DM2, HTN, COPD, and perforated sigmoid diverticulitis s/p Milli procedure who was admitted for fevers and chills. Fever/Chills - 01/23/2018 CT Abdomen and Pelvis with contrast- Decrease in inflammatory josefina nges at the sigmoid anastomotic suture line. Stable well-formed fluid collection interposed between the sigmoid and sacrum. Interposed between the anastomotic suture line in the sacrum is a well-formed collection measuring 4.2 x 7 cm. This is either postoperative seroma or abscess. - IR consulted- repeat CT scan to assess for fluid collection prior to catether removal - ID consulted- appreciate recommendations, continue meropenem until repeat CT is completed and read Fungal Dermatitis - Nystatin cream to affected region TID Back Pain - neurology consulted- appreciate recommendations - lidoderm patch to affected region 12 on 12 off History of CAD -s/p Cardiac cath with two BRAULIO placed -Continue Plavix, ASA, Lipitor, zetia, and Lopressor Normocytic Anemia -H/H stable -Continue to monitor with daily CBC's History of COPD -Continue xopenex -Continue Singulair History of BPH -Continue Rapaflo and Oxybutynin History of DM2 -SSI-Med and Accuchecks ACHS Deconditioning - continue PT in TCU setting Prophylaxis - GI Prophylaxis: famotidine - DVT Prophylaxis: SCD's Please make note this is a complex patient with multiple comorbid medical issues. We will continue to monitor the patient patient aggressively. Case thoroughly discussed with patient's . Time spend with the patient is greater than 45 minutes. Patient case discussed with, and plan approved by attending physician, Dr. Minor. Objective - Vital Signs/Intake and Output Vital Signs (last 24 hours): Temp Pulse Resp BP Pulse Ox 98.2 F 66 18 122/79 96 02/05/18 16:00 02/05/18 17:39 02/05/18 16:00 02/05/18 17:39 02/05/18 16:00 Intake and Output: 02/06/18 02/06/18 06:59 18:59 Intake Total 320 Balance 320 - Medications Medications: Current Medications Acetaminophen (Tylenol 325mg Tab) 650 mg PO Q4H PRN PRN Reason: Fever >100.4 F Last Admin: 02/04/18 11:07 Dose: 650 mg Aluminum Hydroxide (Aluminum Hydroxide Gel 320mg /5ml Susp (Bulk)) 30 ml PO Q4H PRN PRN Reason: Indigestion Aspirin (Aspirin Chewable) 81 mg PO 0800 [facility] Last Admin: 02/06/18 08:33 Dose: 81 mg Atorvastatin Calcium (Lipitor) 20 mg PO QPM [facility] Last Admin: 02/05/18 17:39 Dose: 20 mg Clopidogrel Bisulfate (Plavix) 75 mg PO DAILY [facility] Last Admin: 02/06/18 10:35 Dose: 75 mg Clotrimazole (Mycelex Gael) 10 mg MT 5XD [facility] Last Admin: 02/06/18 10:01 Dose: 10 mg Ezetimibe (Zetia) 10 mg PO DAILY [facility] Last Admin: 02/06/18 10:01 Dose: 10 mg Meropenem (Merrem Iv 1 Gm Premix) 1 gm in 50 mls @ 100 mls/hr IVPB Q8 [facility]; Pr otocol Stop: 02/08/18 22:01 Last Admin: 02/06/18 06:47 Dose: 100 mls/hr Insulin Human Lispro (Humalog Med) 0 units SC ACHS [facility]; Protocol Last Admin: 02/06/18 11:22 Dose: Not Given Lactobacillus Acidophilus (Bacid Acidophilus) 1 cap PO BID [facility] Last Admin: 02/06/18 10:33 Dose: 1 cap Levalbuterol HCl (Xopenex) 0.63 mg IH TIDRESP [facility] Last Admin: 02/06/18 07:21 Dose: Not Given Lidocaine (Lidoderm) 1 ea TD DAILY [facility] Last Admin: 02/06/18 10:33 Dose: 1 ea Magnesium Oxide (Mag-Ox) 400 mg PO DAILY [facility] Last Admin: 02/06/18 10:33 Dose: 400 mg Metoprolol Tartrate (Lopressor) 12.5 mg PO QPM [facility] Last Admin: 02/05/18 17:39 Dose: 12.5 mg Montelukast Sodium (Singulair) 10 mg PO QPM [facility] Last Admin: 02/05/18 17:41 Dose: 10 mg Morphine Sulfate (Morphine) 2 mg IVP Q4H PRN PRN Reason: severe pain Last Admin: 02/05/18 22:08 Dose: 2 mg Ranolazine [Ranexa] (500 Mg (Home)) 500 mg PO BID [facility] Last Admin: 02/06/18 10:35 Dose: 500 mg Silodosin [Rapaflo] (8 Mg) (Home Med)) 8 mg PO QPM [facility] Last Admin: 02/05/18 17:40 Dose: 8 mg Nystatin (Mycostatin Cream) 0 ea TOP BID [facility] Last Admin: 02/06/18 10:36 Dose: 1 applic Ondansetron HCl (Zofran Inj) 4 mg IVP Q6H PRN PRN Reason: Nausea/Vomiting Last Admin: 02/04/18 14:05 Dose: 4 mg Oxybutynin Chloride (Ditropan Tab) 5 mg PO HS [facility] Last Admin: 02/05/18 22:22 Dose: 5 mg Vitamin A (Vitamin A & D Oint Ud Foilpak) 1 ea TOP Q8H PRN PRN Reason: DRY NOSTRILS - Labs Labs: 02/02/18 06:50 02/02/18 06:50
[2018-02-06] MEDS: SILODOSIN 8 MG PO SCH (17:33)
--- NOTE | 2018-02-06 21:35 | CP.PCM.PN ---
Subjective - Date & Time of Evaluation Date of Evaluation: 02/06/18 Time of Evaluation: 10:40 - Subjective Subjective: Afebrile, not in distress. Objective - Vital Signs/Intake and Output Vital Signs (last 24 hours): Temp Pulse Resp BP Pulse Ox 98.5 F 69 16 107/62 98 02/06/18 16:00 02/06/18 17:31 02/06/18 16:00 02/06/18 17:31 02/06/18 16:00 Intake and Output: 02/06/18 02/07/18 18:59 06:59 Output Total 3 Balance -3 - Medications Medications: Current Medications Acetaminophen (Tylenol 325mg Tab) 650 mg PO Q4H PRN PRN Reason: Fever >100.4 F Last Admin: 02/04/18 11:07 Dose: 650 mg Aluminum Hydroxide (Aluminum Hydroxide Gel 320mg /5ml Susp (Bulk)) 30 ml PO Q4H PRN PRN Reason: Indigestion Aspirin (Aspirin Chewable) 81 mg PO 0800 [facility] Last Admin: 02/06/18 08:33 Dose: 81 mg Atorvastatin Calcium (Lipitor) 20 mg PO QPM [facility] Last Admin: 02/06/18 17:30 Dose: 20 mg Clopidogrel Bisulfate (Plavix) 75 mg PO DAILY [facility] Last Admin: 02/06/18 10:35 Dose: 75 mg Clotrimazole (Mycelex Gael) 10 mg MT 5XD [facility] Last Admin: 02/06/18 17:32 Dose: 10 mg Ezetimibe (Zetia) 10 mg PO DAILY [facility] Last Admin: 02/06/18 10:01 Dose: 10 mg Meropenem (Merrem Iv 1 Gm Premix) 1 gm in 50 mls @ 100 mls/hr IVPB Q8 [facility]; Protocol Stop: 02/08/18 22:01 Last Admin: 02/06/18 13:39 Dose: 100 mls/hr Insulin Human Lispro (Humalog Med) 0 units SC ACHS [facility]; Protocol Last Admin: 02/06/18 17:29 Dose: Not Given Lactobacillus Acidophilus (Bacid Acidophilus) 1 cap PO BID [facility] Last Admin: 02/06/18 17:34 Dose: 1 cap Levalbuterol HCl (Xopenex) 0.63 mg IH TIDRESP [facility] Last Admin: 02/06/18 20:42 Dose: Not Given Lidocaine (Lidoderm) 1 ea TD DAILY [facility] Last Admin: 02/06/18 10:33 Dose: 1 ea Magnesium Oxide (Mag-Ox) 400 mg PO DAILY [facility] Last Admin: 02/06/18 10:33 Dose: 400 mg Metoprolol Tartrate (Lopressor) 12.5 mg PO QPM [facility] Last Admin: 02/06/18 17:31 Dose: 12.5 mg Montelukast Sodium (Singulair) 10 mg PO QPM [facility] Last Admin: 02/06/18 17:33 Dose: 10 mg Morphine Sulfate (Morphine) 2 mg IVP Q4H PRN PRN Reason: severe pain Last Admin: 02/05/18 22:08 Dose: 2 mg Ranolazine [Ranexa] (500 Mg (Home)) 500 mg PO BID [facility] Last Admin: 02/06/18 17:33 Dose: 500 mg Silodosin [Rapaflo] (8 Mg) (Home Med)) 8 mg PO QPM [facility] Last Admin: 02/06/18 17:33 Dose: 8 mg Nystatin (Mycostatin Cream) 0 ea TOP BID [facility] Last Admin: 02/06/18 17:32 Dose: 1 applic Ondansetron HCl (Zofran Inj) 4 mg IVP Q6H PRN PRN Reason: Nausea/Vomiting Last Admin: 02/04/18 14:05 Dose: 4 mg Oxybutynin Chloride (Ditropan Tab) 5 mg PO HS [facility] Last Admin: 02/05/18 22:22 Dose: 5 mg Vitamin A (Vitamin A & D Oint Ud Foilpak) 1 ea TOP Q8H PRN PRN Reason: DRY NOSTRILS - Labs Labs: 02/02/18 06:50 02/02/18 06:50 - Constitutional Appears: Chronically Ill - Head Exam Head Exam: NORMAL INSPECTION - Respiratory Exam Respiratory Exam: Decreased Breath Sounds - Cardiovascular Exam Cardiovascular Exam: +S1, +S2 - GI/Abdominal Exam GI & Abdominal Exam: Soft. absent: Tenderness Assessment and Plan - Assessment and Plan (Free Text) Plan: Assessment pelvic abscess, growing Pseudomonas S/P colostomy reversal S/P severe sepsis S/P acute renal failure S/P ventilator-dependent respiratory failure due to acute perforated sigmoid colon with associated diverticulitis S/P exploratory laparotomy, sigmoidectomy and colostomy history of sepsis due to acute bronchitis, with systemic viral illness history of UTI with E. 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
[2018-02-07] MEDS: Meropenem IV 1 gm in NS 1 GM/50 ML BAG IVPB SCH ×2 (06:44→13:33)
[2018-02-07] MEDS: Insulin Lispro (humaLOG) MEDIUM Coverage SC SCH ×4 (06:58→21:26)
[2018-02-07] MEDS: Levalbuterol 0.63 MG/3 ML Inhal Soln UD IH SCH ×3 (07:33→20:41)
--- NOTE | 2018-02-07 09:09 | CP.PCM.PN ---
Subjective - Date & Time of Evaluation Date of Evaluation: 02/07/18 Time of Evaluation: 08:00 - Subjective Subjective: Chris Stallings- Internal Medicine Resident- Progress Note on Behalf of Hematology/Oncology Subjective: Patient seen and examined. No acute events overnight. States intermittent pain in the sacral region near catheter site is at baseline. Denies fever, chills, chest pain, shortness of breath, abdominal pain, nausea, vomiting, diarrhea, constipation, and urinary symptoms. 12 Point ROS Negative Except as indicated in HPI Physical Examination: - Constitutional Constitutional: Non-toxic, No Acute Distress - Head Exam Head Exam: ATRAUMATIC, NORMOCEPHALIC - Eye Exam Eye Exam: EOMI, PERRL. absent: Scleral icterus - ENT Exam ENT Exam: Mucous Membranes Moist, Normal Oropharynx - Neck Exam Neck Exam: Full ROM, Normal Inspection - Respiratory Exam Respiratory Exam: Clear to Ausculation Bilateral. absent: Rales, Rhonchi, Wheezes - Cardiovascular Exam Cardiovascular Exam: RRR, +S1, +S2. absent: Gallop, Rubs - GI/Abdominal Exam GI & Abdominal Exam: Soft, Normal Bowel Sounds. absent: Distended, Firm, Guarding, Rigid, Tenderness, Organomegaly, Rebound - Exam Exam: Erythema noted in bilaterally inner groin/parascrotal region - Extremities Exam Extremities Exam: Normal Inspection. absent: Pedal Edema - Neurological Exam Neurological Exam: Alert, Awake, Orientated x 3 - Psychiatric Exam Psychiatric exam: Normal Affect, Normal Mood - Skin Skin Exam: Dry, Intact, Normal Color, Warm, catheter site clean, dry, intact Assessment and Plan: 77 year old male with a past medical history significant for stage IV mantle cell lymphoma (quiescence), lung cancer s/p wedge resection, hypoglobulinemia, CAD s/p stent placement, DM2, HTN, COPD, and perforated sigmoid diverticulitis s/p Milli procedure who was admitted for fevers and chills. Fever/Chills - 01/23/2018 CT Abdomen and Pelvis with contrast- Decrease in inflammatory changes at the sigmoid anastomotic suture line. Stable well-formed fluid collection interposed between the sigmoid and sacrum. Interposed between the anastomotic suture line in the sacrum is a well-formed collection measuring 4.2 x 7 cm. This is either postoperative seroma or abscess. - 02/06/2018 CT Abdomen and Pelvis with Oral and IV Contrast- Status post abscess drainage presacral space. The drainage catheter is in satisfactory position, the cavity is no longer visible. The adjacent primarily superior presacral phlegmonous component is unchanged. - IR consulted- will need approval prior to catether removal - ID consulted- appreciate recommendations, continue meropenem until repeat CT is completed and read Fungal Dermatitis - Nystatin cream to affected region TID Back Pain - neurology consulted- appreciate recommendations - lidoderm patch to affected region 12 on 12 off History of CAD -s/p Cardiac cath with two BRAULIO placed -Continue Plavix, ASA, Lipitor, zetia, and Lopressor Normocytic Anemia -H/H stable -Continue to monitor with daily CBC's History of COPD -Continue xopenex -Continue Singulair History of BPH -Continue Rapaflo and Oxybutynin History of DM2 -SSI-Med and Accuchecks ACHS Deconditioning - continue PT in TCU setting Prophylaxis - GI Prophylaxis: famotidine - DVT Prophylaxis: SCD's Please make note this is a complex patient with multiple comorbid medical issues. We will continue to monitor the patient patient aggressively. Case thoroughly discussed with patient's . Time spend with the patient is greater than 45 minutes. Patient case discussed with, and plan approved by attending physician, Dr. Minor. Objective - Vital Signs/Intake and Output Vital Signs (last 24 hours): Temp Pulse Resp BP Pulse Ox 98.5 F 69 16 107/62 98 02/06/18 16:00 18 17:31 18 16:00 02/06/18 17:31 02/06/18 16:00 Intake and Output: 02/07/18 02/07/18 06:59 18:59 Intake Total 360 Output Total 3 Balance 357 - Medications Medications: Current Medications Acetaminophen (Tylenol 325mg Tab) 650 mg PO Q4H PRN PRN Reason: Fever >100.4 F Last Admin: 02/04/18 11:07 Dose: 650 mg Aluminum Hydroxide (Aluminum Hydroxide Gel 320mg /5ml Susp (Bulk)) 30 ml PO Q4H PRN PRN Reason: Indigestion Aspirin (Aspirin Chewable) 81 mg PO 0800 [facility] Last Admin: 02/07/18 08:15 Dose: 81 mg Atorvastatin Calcium (Lipitor) 20 mg PO QPM [facility] Last Admin: 02/06/18 17:30 Dose: 20 mg Clopidogrel Bisulfate (Plavix) 75 mg PO DAILY [facility] Last Admin: 02/06/18 10:35 Dose: 75 mg Clotrimazole (Mycelex Gael) 10 mg MT 5XD [facility] Last Admin: 02/07/18 06:45 Dose: 10 mg Ezetimibe (Zetia) 10 mg PO DAILY [facility] Last Admin: 02/06/18 10:01 Dose: 10 mg Meropenem (Merrem Iv 1 Gm Premix) 1 gm in 50 mls @ 100 mls/hr IVPB Q8 [facility]; Protocol Stop: 02/08/18 22:01 Last Admin: 02/07/18 06:44 Dose: 100 mls/hr Insulin Human Lispro (Humalog Med) 0 units SC ACHS [facility]; Protocol Last Admin: 02/07/18 06:58 Dose: Not Given Lactobacillus Acidophilus (Bacid Acidophilus) 1 cap PO BID [facility] Last Admin: 02/06/18 17:34 Dose: 1 cap Levalbuterol HCl (Xopenex) 0.63 mg IH TIDRESP [facility] Last Admin: 02/07/18 07:33 Dose: 0.63 mg Lidocaine (Lidoderm) 1 ea TD DAILY [facility] Last Admin: 02/06/18 10:33 Dose: 1 ea Magnesium Oxide (Mag-Ox) 400 mg PO DAILY [facility] Last Admin: 02/06/18 10:33 Dose: 400 mg Metoprolol Tartrate (Lopressor) 12.5 mg PO QPM [facility] Last Admin: 02/06/18 17:31 Dose: 12.5 mg Montelukast Sodium (Singulair) 10 mg PO QPM [facility] Last Admin: 02/06/18 17:33 Dose: 10 mg Morphine Sulfate (Morphine) 2 mg IVP Q4H PRN PRN Reason: severe pain Last Admin: 02/05/18 22:08 Dose: 2 mg Ranolazine [Ranexa] (500 Mg (Home)) 500 mg PO BID [facility] Last Admin: 02/06/18 17:33 Dose: 500 mg Silodosin [Rapaflo] (8 Mg) (Home Med)) 8 mg PO QPM [facility] Last Admin: 02/06/18 17:33 Dose: 8 mg Nystatin (Mycostatin Cream) 0 ea TOP BID [facility] Last Admin: 02/06/18 17:32 Dose: 1 applic Ondansetron HCl (Zofran Inj) 4 mg IVP Q6H PRN PRN Reason: Nausea/Vomiting Last Admin: 02/04/18 14:05 Dose: 4 mg Oxybutynin Chloride (Ditropan Tab) 5 mg PO HS [facility] Last Admin: 02/06/18 21:55 Dose: 5 mg Vitamin A (Vitamin A & D Oint Ud Foilpak) 1 ea TOP Q8H PRN PRN Reason: DRY NOSTRILS - Labs Labs: 02/02/18 06:50 02/02/18 06:50
[2018-02-07] MEDS: Magnesium Oxide 400 mg Tab UD PO SCH (09:17)
[2018-02-07] MEDS: Lactobacillus Acidophilus 500 MU Cap PO SCH ×2 (09:17→17:14)
[2018-02-07] MEDS: Lidocaine 5% Patch TD SCH (09:18)
[2018-02-07] MEDS: Nystatin 100,000 Units/gm Cream(15 gm) TOP SCH ×2 (09:18→17:16)
[2018-02-07] MEDS: RANOLAZINE 500 MG PO SCH ×2 (09:19→17:16)
[2018-02-07 10:48] LABS: BASO # 0.02 K/mm3 (0.0-2.0); BASO % 0.4 % (0.0-3.0); EOS # 0.2 (0.0-0.7); EOS % 4.3 % (1.5-5.0); GRAN # 2.97 (1.4-6.5); GRAN % 55.8 % (50.0-68.0); HEMOGLOBIN 12.5 g/dL (14.0-18.0); LYMPH # 1.7 (1.2-3.4); LYMPH % 32.7 % (22.0-35.0); MEAN CELL VOLUME 87.6 fl (80.0-105.0); MEAN CORPUSCULAR HEMOGLOBIN 28.7 pg (25.0-35.0); MEAN CORPUSCULAR HGB CONC 32.8 g/dl (31.0-37.0); MONO # 0.4 (0.1-0.6); MONO % 6.8 % (1.0-6.0); RBC 4.35 10^6/uL (3.5-6.1); WHITE BLOOD COUNT 5.3 10^3/uL (4.5-11.0)
[2018-02-07 11:45] LABS: ALB/GLOB RATIO 0.9 (1.1-1.8); ALBUMIN 3.4 g/dL (3.0-4.8); ALT/SGPT 30 U/L (7-56); AST/SGOT 35 U/L (17-59); BLOOD UREA NITROGEN 18 mg/dL (7-21); CALCIUM 8.7 mg/dL (8.4-10.5); GFR NON-AFRICAN AMERICAN > 60
[2018-02-07 13:27] VITALS: RESP 18
[2018-02-07] MEDS: SILODOSIN 8 MG PO SCH (17:16)
--- NOTE | 2018-02-07 20:06 | CP.PCM.CON ---
History of Present Illness - History of Present Illness History of Present Illness: Patient is a 77 year old male with a past medical history significant for stage IV mantle cell lymphoma (quiescence), lung cancer s/p wedge resection, hypoglobulinemia, CAD s/p stent placement, DM2, HTN, COPD, and perforated sigmoid diverticulitis s/p Rob procedure who was admitted to the ICU after undergoing removal of drainage catheter in presacral space by IR Dr. Horne. Patient denies chest pain, SOB, fever, chills, nausea, vomiting, or any other complaints at this time. 12 Point ROS Negative Except as indicated in HPI PMHx: Stage IV mantle cell lymphoma (quiescence), lung cancer s/p wedge resection, hypoglobulinemia, CAD s/p stent placement, DM2, HTN, COPD, and perforated sigmoid diverticulitis s/p Milli procedure PSHx: Rob procedure, Colostomy reversal, and lung wedge resection Family History: Non-Contributory Social History: Denies any tobacco, alcohol or illicit drug abuse Allergies: Zithromax, Keflex and PCN Home Medications: As per MAR Past Patient History - Infectious Disease Hx of Infectious Diseases: None - Tetanus Immunizations Tetanus Immunization: Unknown - Past Medical History & Family History Past Medical History?: Yes - Past Social History Smoking Status: Never Smoked - CARDIAC Hx Cardiac Disorders: Yes (CAD, S/P 4 cardiac stents AND 2 STENTS ON 01/08/2018, [place]) Hx Hypertension: Yes - PULMONARY Hx Respiratory Disorders: Yes Hx Pneumonia: Yes - NEUROLOGICAL Hx Neurological Disorder: Yes Hx Transient Ischemic Attacks (TIA): Yes - HEENT Hx HEENT Problems: Yes Hx Cataracts: ([facility]) - RENAL Hx Chronic Kidney Disease: No - ENDOCRINE/METABOLIC Hx Diabetes Mellitus Type 2: Yes - HEMATOLOGICAL/ONCOLOGICAL Hx Blood Disorders: Yes Hx Anemia: Yes (blood transfusions) Hx Cancer: Yes (mantle cell lymphoma dx about 7 yrs ago) Hx Chemotherapy: Yes Other/Comment: neutropenia, hypogammaglobunemia, sepsis - INTEGUMENTARY Hx Dermatological Problems: No - MUSCULOSKELETAL/RHEUMATOLOGICAL Hx Falls: No - GASTROINTESTINAL Hx Gastrointestinal Disorders: No (DIVERTICULITIS,SIGMOIDECTOMY,COLOSTOMY REVERSAL) - GENITOURINARY/GYNECOLOGICAL Hx Genitourinary Disorders: Yes (LEFT NEPHROSTOMY) Hx Reproductive Disorders: Yes (BPH) - PSYCHIATRIC Hx Psychophysiologic Disorder: No - SURGICAL HISTORY Hx Cardiac Catheterization: Yes (sents x4) Hx Musculoskeletal Surgery: Yes Hx Open Heart Surgery: Yes - ANESTHESIA Hx Anesthesia: Yes Hx Anesthesia Reactions: No Hx Malignant Hyperthermia: No Meds Allergies/Adverse Reactions: Allergies Allergy/AdvReac Type Severity Reaction Status Date / Time azithromycin Allergy Severe ANGIOEDEMA Verified 01/09/18 19:42 erythromycin base Allergy Severe ANGIOEDEMA Verified 01/09/18 19:42 Penicillins Allergy Severe ANAPHYLAXIS Verified 01/09/18 19:42 cephalexin monohydrate Allergy Intermediate RASH Verified 01/09/18 19:42 [From Keflex] gabapentin Allergy Intermediate RASH Verified 01/09/18 19:42 pregabalin Allergy Intermediate RASH Verified 01/09/18 19:42 Sulfa (Sulfonamide Allergy Intermediate RASH Verified 01/09/18 19:42 Antibiotics) nitro paste Allergy Intermediate DIZZINESS/H Uncoded 01/09/18 19:42 YPOTENSION Imbrovica Allergy FEVER Uncoded 01/09/18 19:42 - Medications Medications: Current Medications Acetaminophen (Tylenol 325mg Tab) 650 mg PO Q4H PRN PRN Reason: Fever >100.4 F Last Admin: 02/04/18 11:07 Dose: 650 mg Aluminum Hydroxide (Aluminum Hydroxide Gel 320mg /5ml Susp (Bulk)) 30 ml PO Q4H PRN PRN Reason: Indigestion Aspirin (Aspirin Chewable) 81 mg PO 0800 [facility] Last Admin: 02/07/18 08:15 Dose: 81 mg Atorvastatin Calcium (Lipitor) 20 mg PO QPM [facility] Last Admin: 02/07/18 17:15 Dose: 20 mg Clopidogrel Bisulfate (Plavix) 75 mg PO DAILY [facility] Last Admin: 02/07/18 09:17 Dose: 75 mg Clotrimazole (Mycelex Gael) 10 mg MT 5XD [facility] Last Admin: 02/07/18 17:15 Dose: 10 mg Ezetimibe (Zetia) 10 mg PO DAILY [facility] Last Admin: 02/07/18 09:18 Dose: 10 mg Insulin Human Lispro (Humalog Med) 0 units SC [facility]; Protocol Last Admin: 02/07/18 17:10 Dose: Not Given Lactobacillus Acidophilus (Bacid Acidophilus) 1 cap PO BID [facility] Last Admin: 02/07/18 17:14 Dose: 1 cap Levalbuterol HCl (Xopenex) 0.63 mg IH TIDRESP [facility] Last Admin: 02/07/18 13:52 Dose: 0.63 mg Lidocaine (Lidoderm) 1 ea TD DAILY [facility] Last Admin: 02/07/18 09:18 Dose: 1 ea Magnesium Oxide (Mag-Ox) 400 mg PO DAILY [facility] Last Admin: 02/07/18 09:17 Dose: 400 mg Metoprolol Tartrate (Lopressor) 12.5 mg PO QPM [facility] Last Admin: 02/07/18 17:15 Dose: 12.5 mg Montelukast Sodium (Singulair) 10 mg PO QPM [facility] Last Admin: 02/07/18 17:17 Dose: 10 mg Morphine Sulfate (Morphine) 2 mg IVP Q4H PRN PRN Reason: severe pain Last Admin: 02/05/18 22:08 Dose: 2 mg Ranolazine [Ranexa] (500 Mg (Home)) 500 mg PO BID [facility] Last Admin: 02/07/18 17:16 Dose: 500 mg Silodosin [Rapaflo] (8 Mg) (Home Med)) 8 mg PO QPM [facility] Last Admin: 02/07/18 17:16 Dose: 8 mg Nystatin (Mycostatin Cream) 0 ea TOP BID [facility] Last Admin: 02/07/18 17:16 Dose: 1 applic Ondansetron HCl (Zofran Inj) 4 mg IVP Q6H PRN PRN Reason: Nausea/Vomiting Last Admin: 02/04/18 14:05 Dose: 4 mg Oxybutynin Chloride (Ditropan Tab) 5 mg PO HS [facility] Last Admin: 02/06/18 21:55 Dose: 5 mg Vitamin A (Vitamin A & D Oint Ud Foilpak) 1 ea TOP Q8H PRN PRN Reason: DRY NOSTRILS Results - Vital Signs Recent Vital Signs: Last Vital Signs Temp 98.4 F 02/07/18 16:00 Pulse 84 02/07/18 17:15 Resp 18 02/07/18 16:00 BP 117/73 02/07/18 17:15 Pulse Ox 98 02/07/18 16:00 - Labs Result Diagrams: 02/07/18 20:26 02/07/18 10:30 Labs: Laboratory Results - last 24 hr 02/06/18 02/06/18 02/07/18 16:52 20:56 06:54 WBC RBC Hgb Hct MCV MCH MCHC RDW Plt Count MPV Gran % Lymph % (Auto) [place] % (Auto) Eos % (Auto) Baso % (Auto) Gran # Lymph # (Auto) [place] # (Auto) Eos # (Auto) Baso # (Auto) Sodium Potassium Chloride Carbon Dioxide Anion Gap BUN Creatinine Est GFR ( Amer) Est GFR (Non-Af Amer) POC Glucose (mg/dL) 151 H 118 H 90 Random Glucose Calcium Total Bilirubin AST ALT Alkaline Phosphatase Total Protein Albumin Globulin Albumin/Globulin Ratio 02/07/18 02/07/18 02/07/18 10:30 10:30 11:13 WBC 5.3 D RBC 4.35 Hgb 12.5 L Hct 38.1 L MCV 87.6 MCH 28.7 MCHC 32.8 RDW 15.0 H Plt Count 199 MPV 9.0 Gran % 55.8 Lymph % (Auto) 32.7 [place] % (Auto) 6.8 H Eos % (Auto) 4.3 Baso % (Auto) 0.4 Gran # 2.97 Lymph # (Auto) 1.7 [place] # (Auto) 0.4 Eos # (Auto) 0.2 Baso # (Auto) 0.02 Sodium 138 Potassium 4.3 Chloride 102 Carbon Dioxide 30 Anion Gap 10 BUN 18 Creatinine 1.0 Est GFR ( Amer) > 60 Est GFR (Non-Af Amer) > 60 POC Glucose (mg/dL) 128 H Random Glucose 145 H Calcium 8.7 Total Bilirubin 1.0 AST 35 ALT 30 Alkaline Phosphatase 148 H Total Protein 7.1 Albumin 3.4 Globulin 3.6 Albumin/Globulin Ratio 0.9 L 02/07/18 02/07/18 11:39 16:51 WBC RBC Hgb Hct MCV MCH MCHC RDW Plt Count MPV Gran % Lymph % (Auto) [place] % (Auto) Eos % (Auto) Baso % (Auto) Gran # Lymph # (Auto) [place] # (Auto) Eos # (Auto) Baso # (Auto) Sodium Potassium Chloride Carbon Dioxide Anion Gap BUN Creatinine Est GFR ( Amer) Est GFR (Non-Af Amer) POC Glucose (mg/dL) 117 H 98 Random Glucose Calcium Total Bilirubin AST ALT Alkaline Phosphatase Total Protein Albumin Globulin Albumin/Globulin Ratio Assessment & Plan - Assessment and Plan (Free Text) Assessment: Patient is a 77 year old male with a past medical history significant for stage IV mantle cell lymphoma (quiescence), lung cancer s/p wedge resection, hypoglob ulinemia, CAD s/p stent placement, DM2, HTN, COPD, and perforated sigmoid diverticulitis s/p Rob procedure who was admitted to the ICU after undergoing removal of drainage catheter in presacral space by IR Dr. Horne. Plan: Neuro: Alert & awake continue to monitor Cardio: Normotensive maintain map >65 Continue Plavix, ASA, Lipitor, zetia, and Lopressor Pulmonary: -maintain oxygen saturation >92% Heme -s/p prescaral drain removal with some bleeding -will follow H/H overnight with CBCs MSK - lidoderm patch to affected region 12 on 12 off GI: -pepcid for prophylaxis ID: -follow WBC count -meropenem -ID following -Nystatin cream to affected region of fungal dermatitis Endo -SSI-Med and Accuchecks ACHS -maintain euglycemia
[2018-02-07] MEDS ORDERED: Sodium Chloride 0.9% 1,000 ML IV SCH (20:15)
--- NOTE | 2018-02-07 20:22 | PN ---
DATE: 02/07/2018 SUBJECTIVE: The patient is in bed, in no acute distress and nontoxic. PHYSICAL EXAMINATION VITAL SIGNS: Temperature is 98, blood pressure is 117/70, and respiratory rate 18. HEENT: Unremarkable. NECK: Supple. LUNGS: Have decreased breath sounds. HEART: Normal S1, S2. ABDOMEN: Soft. LABORATORY EXAMINATION: Reveals a white count of 5.3, hemoglobin of 12 and platelets of 199. Chemistries reveals a BUN of 18, creatinine of 1.0. ASSESSMENT AND PLAN: This is a 77-year-old with pelvic abscess with Pseudomonas, on meropenem. The patient had a repeat CAT scan yesterday, which revealed cavity is no longer visible, but drainage is in good position. Review of orders: The patient is on meropenem. We will continue the meropenem. I CAT scan from yesterday with invasive radiology. Marvin Callahan MD
[2018-02-07 20:31] LABS: BASO # 0.04 K/mm3 (0.0-2.0); BASO % 0.9 % (0.0-3.0); EOS # 0.2 (0.0-0.7); EOS % 4.9 % (1.5-5.0); GRAN # 2.16 (1.4-6.5); GRAN % 47.8 % (50.0-68.0); HEMOGLOBIN 11.8 g/dL (14.0-18.0); LYMPH # 1.8 (1.2-3.4); LYMPH % 39.5 % (22.0-35.0); MEAN CELL VOLUME 87.7 fl (80.0-105.0); MEAN CORPUSCULAR HEMOGLOBIN 28.5 pg (25.0-35.0); MEAN CORPUSCULAR HGB CONC 32.5 g/dl (31.0-37.0); MONO # 0.3 (0.1-0.6); MONO % 6.9 % (1.0-6.0); RBC 4.14 10^6/uL (3.5-6.1); RED CELL DISTRIBUTION WIDTH 14.9 % (11.5-14.5); WHITE BLOOD COUNT 4.5 10^3/uL (4.5-11.0)
[2018-02-07 22:03] VITALS: BP 124/69; PULSE 76; TEMP 97.9; O2SAT 100
--- NOTE | 2018-02-08 01:22 | DS ---
Transferred from TCU to the hospital Intensive Care Unit. HISTORY OF PRESENT ILLNESS: The patient is a 77-year-old male, now completing TCU protocols with anticipation of discharge home with a pigtail drain removed just now with bleeding episode as per Dr. Je Horne, vascular trust mail clerk, as the patient has abscess drained with the stent to be removed prior to discharge home. The drain was placed on 01/28/2018 with the specimen found to have Pseudomonas aeruginosa, moderate growth on culture, the patient has been receiving antibiotics as per Dr. Callahan with good effect. Otherwise, the patient is in no acute distress, with the bleeding stabilized, thought to be self limited as per Dr. Je Horne; however as a precaution, we will discharge from the Transitional Care and admit to Intensive Care for overnight observation with serial monitoring of his hemoglobin, type and cross, and hold in case if need of transfusion as indicated as per snout puller and Dr. Je Horne. He will remain on his present medical regimen, which includes Plavix and aspirin as the patient was recently stented after a myocardial infarction. Otherwise, the patient is to be transferred once the bed is available to the Intensive Care Unit as listed above. PHYSICAL EXAMINATION: As per Dr. Je Horne. VITAL SIGNS: Temperature 98.4, pulse 84, respirations 18, blood pressure 117/73, and pulse ox 98%. LABORATORY DATA: Include white blood cell count of today is 5.3, hemoglobin 12.5, hematocrit 38.1, platelet count 199,000 with chem metabolic completely within normal range except for a non-fasting glucose of 128. ASSESSMENT: For this patient is that of deconditioning, now improved, stage IV mantel cell lymphoma, status post Milli's procedure with reversal of colostomy, recently with abscess drainage as above, coronary artery disease, status post stent placement, diabetes mellitus, hypertension, chronic obstructive pulmonary disease, history of lung cancer, status post resection, hypogammaglobulinemia, and anxiety. PLAN: For this patient is as above. We will transfer to Intensive Care Unit. Monitor clinically. Ted Santoyo MD
== END 2018-02-07 22:20 | disposition short-term general hospital (02) | DRG 372 ==
LOC: TRCU 15:33
PROVIDERS: ADMIT Family Medicine; ATTEND Family Medicine
PROC: F07Z9FZ Gait Training/Functional Ambulation Treatment using Assistive, Adaptive, Supportive or Protective Equipment (ICD-10-PCS; principal; 2018-02-01)
PROC: F07M6ZZ Therapeutic Exercise Treatment of Musculoskeletal System - Whole Body (ICD-10-PCS; 2018-02-01)
PROC: F08Z4ZZ Home Management Treatment (ICD-10-PCS; 2018-02-01)
PROC: F08Z0ZZ Bathing/Showering Techniques Treatment (ICD-10-PCS; 2018-02-01)
PROC: F08Z2ZZ Grooming/Personal Hygiene Treatment (ICD-10-PCS; 2018-02-01)
PROC: F08Z1ZZ Dressing Techniques Treatment (ICD-10-PCS; 2018-02-01)
DX: K65.1 Peritoneal abscess (principal); K57.20 Diverticulitis of large intestine with perforation and abscess without bleeding; C83.10 Mantle cell lymphoma, unspecified site; D80.1 Nonfamilial hypogammaglobulinemia; B36.9 Superficial mycosis, unspecified; D64.9 Anemia, unspecified; E11.9 Type 2 diabetes mellitus without complications; E78.5 Hyperlipidemia, unspecified; I10 Essential (primary) hypertension; I25.2 Old myocardial infarction; I25.10 Atherosclerotic heart disease of native coronary artery without angina pectoris; J44.9 Chronic obstructive pulmonary disease, unspecified; N40.0 Benign prostatic hyperplasia without lower urinary tract symptoms; Z79.02 Long term (current) use of antithrombotics/antiplatelets; Z85.118 Personal history of other malignant neoplasm of bronchus and lung; Z86.19 Personal history of other infectious and parasitic diseases; Z86.73 Personal history of transient ischemic attack (TIA), and cerebral infarction without residual deficits; Z87.01 Personal history of pneumonia (recurrent); Z87.440 Personal history of urinary (tract) infections; Z88.0 Allergy status to penicillin; Z90.49 Acquired absence of other specified parts of digestive tract; Z92.21 Personal history of antineoplastic chemotherapy; Z95.5 Presence of coronary angioplasty implant and graft; Z98.0 Intestinal bypass and anastomosis status

== ENCOUNTER 2018-02-07 22:20 | Inpatient (IN) | payer MEDICARE, OTHER ==
--- NOTE | 2018-02-07 23:18 | CP.PCM.CON ---
<Greg Quesada - Last Filed: 02/07/18 23:18> History of Present Illness - History of Present Illness History of Present Illness: omari is a 77 year old male with a past medical history significant for stage IV mantle cell lymphoma (quiescence), lung cancer s/p wedge resection, hypoglobulinemia, CAD s/p stent placement, DM2, HTN, COPD, and perforated sigmoid diverticulitis s/p Rob procedure who was admitted to the ICU after undergoing removal of drainage catheter in presacral space by IR Dr. Horne. Patient denies chest pain, SOB, fever, chills, nausea, vomiting, or any other complaints at this time. 12 Point ROS Negative Except as indicated in HPI PMHx: Stage IV mantle cell lymphoma (quiescence), lung cancer s/p wedge resection, hypoglobulinemia, CAD s/p stent placement, DM2, HTN, COPD, and perforated sigmoid diverticulitis s/p Milli procedure PSHx: Rob procedure, Colostomy reversal, and lung wedge resection Family History: Non-Contributory Social History: Denies any tobacco, alcohol or illicit drug abuse Allergies: Zithromax, Keflex and PCN Home Medications: As per MAR Review of Systems - Constitutional Constitutional: absent: Anorexia, Chills, Fever - EENT Eyes: absent: Blurred Vision, Change in Vision - Cardiovascular Cardiovascular: absent: Chest Pain, Dyspnea - Respiratory Respiratory: absent: Cough, Dyspnea, Wheezing - Gastrointestinal Gastrointestinal: absent: Abdominal Pain, Constipation, Diarrhea, Nausea, Vomiting - Musculoskeletal Musculoskeletal: absent: Arthralgias, Back Pain - Neurological Neurological: absent: Numbness, Focal Weakness, Syncope, Tingling, Weakness Past Patient History - Infectious Disease Hx of Infectious Diseases: None - Tetanus Immunizations Tetanus Immunization: Unknown - Past Medical History & Family History Past Medical History?: Yes - Past Social History Smoking Status: Never Smoked - CARDIAC Hx Cardiac Disorders: Yes (CAD, S/P 4 cardiac stents AND 2 STENTS ON 01/08/2018, [place]) Hx Hypertension: Yes - PULMONARY Hx Respiratory Disorders: Yes Hx Pneumonia: Yes - NEUROLOGICAL Hx Neurological Disorder: Yes Hx Transient Ischemic Attacks (TIA): Yes - HEENT Hx HEENT Problems: Yes Hx Cataracts: (h0h b/lhearing aid) - RENAL Hx Chronic Kidney Disease: No - ENDOCRINE/METABOLIC Hx Diabetes Mellitus Type 2: Yes - HEMATOLOGICAL/ONCOLOGICAL Hx Blood Disorders: Yes Hx Anemia: Yes (blood transfusions) Hx Cancer: Yes (mantle cell lymphoma dx about 7 yrs ago) Hx Chemotherapy: Yes Other/Comment: neutropenia, hypogammaglobunemia, sepsis - INTEGUMENTARY Hx Dermatological Problems: No - MUSCULOSKELETAL/RHEUMATOLOGICAL Hx Falls: No - GASTROINTESTINAL Hx Gastrointestinal Disorders: No (DIVERTICULITIS,SIGMOIDECTOMY,COLOSTOMY REVERSAL) - GENITOURINARY/GYNECOLOGICAL Hx Genitourinary Disorders: Yes (LEFT NEPHROSTOMY) Hx Reproductive Disorders: Yes (BPH) - PSYCHIATRIC Hx Psychophysiologic Disorder: No - SURGICAL HISTORY Hx Cardiac Catheterization: Yes (sents x4) Hx Musculoskeletal Surgery: Yes Hx Open Heart Surgery: Yes - ANESTHESIA Hx Anesthesia: Yes Hx Anesthesia Reactions: No Hx Malignant Hyperthermia: No Meds Allergies/Adverse Reactions: Allergies Allergy/AdvReac Type Severity Reaction Status Date / Time azithromycin Allergy Severe ANGIOEDEMA Verified 01/09/18 19:42 erythromycin base Allergy Severe ANGIOEDEMA Verified 01/09/18 19:42 Penicillins Allergy Severe ANAPHYLAXIS Verified 01/09/18 19:42 cephalexin monohydrate Allergy Intermediate RASH Verified 01/09/18 19:42 [From Keflex] gabapentin Allergy Intermediate RASH Verified 01/09/18 19:42 pregabalin Allergy Intermediate RASH Verified 01/09/18 19:42 Sulfa (Sulfonamide Allergy Intermediate RASH Verified 01/09/18 19:42 Antibiotics) nitro paste Allergy Intermediate DIZZINESS/H Uncoded 01/09/18 19:42 YPOTENSION Imbrovica Allergy FEVER Uncoded 01/09/18 19:42 Physical Exam - Constitutional Appears: Well, Non-toxic, No Acute Distress - Head Exam Head Exam: ATRAUMATIC, NORMAL INSPECTION, NORMOCEPHALIC - Eye Exam Eye Exam: EOMI, Normal appearance - ENT Exam ENT Exam: Mucous Membranes Moist - Respiratory Exam Respiratory Exam: Clear to Auscultation Bilateral, NORMAL BREATHING PATTERN - Cardiovascular Exam Cardiovascular Exam: REGULAR RHYTHM, +S1, +S2 - GI/Abdominal Exam GI & Abdominal Exam: Normal Bowel Sounds, Soft. absent: Tenderness - Extremities Exam Extremities exam: Positive for: normal inspection. Negative for: tenderness - Neurological Exam Neurological exam: Alert, Oriented x3 Assessment & Plan - Assessment and Plan (Free Text) Assessment: Patient is a 77 year old male with a past medical history significant for stage IV mantle cell lymphoma (quiescence), lung cancer s/p wedge resection, hypoglobulinemia, CAD s/p stent placement, DM2, HTN, COPD, and perforated sigmoid diverticulitis s/p Rob procedure who was admitted to the ICU after undergoing removal of drainage catheter in presacral space by IR Dr. Horne. Plan: Neuro: Alert & awake continue to monitor Cardio: Normotensive maintain map >65 Continue Plavix, ASA, Lipitor, zetia, and Lopressor Pulmonary: -maintain oxygen saturation >92% Heme -s/p prescaral drain removal with some bleeding -will follow H/H overnight with CBCs MSK - lidoderm patch to affected region 12 on 12 off GI: -pepcid for prophylaxis ID: -follow WBC count -meropenem -ID following -Nystatin cream to affected region of fungal dermatitis Endo -ISS Med and Accuchecks ACHS -maintain euglycemia <Rosa Trujillo - Last Filed: 02/07/18 23:25> Attending/Attestation - Attestation I have personally seen and examined this patient.: Yes I have fully participated in the care of the patient.: Yes I have reviewed all pertinent clinical information: Yes Notes (Text): 02/07/18 23:23 I saw when he was in TCU Room # 315. Earlier , I received a call from to admit him in ICU for observation,f/u serial H&H and get CT of Pelvis if count drops significantly.
[2018-02-07] MEDS ORDERED: Aluminum Hydrox Gel 320 mg/5 ml Susp(480 ml) PO PRN (23:26)
[2018-02-07 23:31] VITALS: BMI 24.9
[2018-02-07] MEDS ORDERED: Dextrose 50% SYRINGE Inj (50 ml) IV PRN (23:34)
[2018-02-07] MEDS ORDERED: Morphine 2 mg/ml ISec IVP PRN (23:36)
[2018-02-07] MEDS: MEROPENEM 500 MG in NS 500 MG/50 ML BAG IVPB SCH (23:45)
[2018-02-08 01:11] LABS: BASO # 0.03 K/mm3 (0.0-2.0); BASO % 0.7 % (0.0-3.0); EOS # 0.3 (0.0-0.7); EOS % 5.5 % (1.5-5.0); GRAN # 2.19 (1.4-6.5); GRAN % 48.1 % (50.0-68.0); HEMOGLOBIN 11.4 g/dL (14.0-18.0); LYMPH # 1.8 (1.2-3.4); LYMPH % 38.7 % (22.0-35.0); MEAN CELL VOLUME 87.8 fl (80.0-105.0); MEAN CORPUSCULAR HEMOGLOBIN 28.3 pg (25.0-35.0); MEAN CORPUSCULAR HGB CONC 32.2 g/dl (31.0-37.0); MEAN PLATELET VOLUME 9.5 fl (7.0-11.0); MONO # 0.3 (0.1-0.6); RBC 4.03 10^6/uL (3.5-6.1); RED CELL DISTRIBUTION WIDTH 14.9 % (11.5-14.5); WHITE BLOOD COUNT 4.6 10^3/uL (4.5-11.0)
[2018-02-08] MEDS: MEROPENEM 500 MG in NS 500 MG/50 ML BAG IVPB SCH (06:07)
[2018-02-08 06:45] LABS: BASO # 0.01 K/mm3 (0.0-2.0); BASO % 0.2 % (0.0-3.0); EOS # 0.2 (0.0-0.7); EOS % 4.1 % (1.5-5.0); GRAN # 2.86 (1.4-6.5); GRAN % 53.6 % (50.0-68.0); HEMOGLOBIN 11.8 g/dL (14.0-18.0); LYMPH # 1.9 (1.2-3.4); LYMPH % 35.4 % (22.0-35.0); MEAN CELL VOLUME 87.8 fl (80.0-105.0); MEAN CORPUSCULAR HEMOGLOBIN 28.9 pg (25.0-35.0); MEAN CORPUSCULAR HGB CONC 32.9 g/dl (31.0-37.0); MEAN PLATELET VOLUME 9.5 fl (7.0-11.0); MONO # 0.4 (0.1-0.6); MONO % 6.7 % (1.0-6.0); RBC 4.09 10^6/uL (3.5-6.1); RED CELL DISTRIBUTION WIDTH 15.1 % (11.5-14.5); WHITE BLOOD COUNT 5.3 10^3/uL (4.5-11.0)
[2018-02-08 07:54] LABS: ALBUMIN 3.1 g/dL (3.0-4.8); ALT/SGPT 30 U/L (7-56); AST/SGOT 27 U/L (17-59); BLOOD UREA NITROGEN 15 mg/dL (7-21); CALCIUM 8.3 mg/dL (8.4-10.5); GFR NON-AFRICAN AMERICAN > 60
[2018-02-08] MEDS: Insulin Lispro (humaLOG) MEDIUM Coverage SC SCH ×2 (08:17→12:17)
[2018-02-08] MEDS: Levalbuterol 0.63 MG/3 ML Inhal Soln UD IH SCH ×2 (08:19→13:11)
--- NOTE | 2018-02-08 08:19 | CP.PCM.HP ---
History of Present Illness - History of Present Illness History of Present Illness: Chris Stallings- Internal Medicine Resident- H&P on Behalf of Hematology/Oncology CC: Bleeding from Catheter Site HPI: Patient is a 77 year old male with a past medical history significant for stage IV mantle cell lymphoma (quiescence), lung cancer s/p wedge resection, hypoglobulinemia, CAD s/p stent placement, DM2, HTN, COPD, and perforated sigmoid diverticulitis s/p Milli procedure who was admitted from TCU evaluation and treatment of a bleed s/p IR catheter removal. Patient seen and examined at bedside. States pain near catheter site has resolved. Offers no new complaints at this time. Denies fever, chills, chest pain, shortness of breath, abdominal pain, nausea, vomiting, diarrhea, constipation, and urinary symptoms. 12 Point ROS Negative Except as indicated in HPI PMHx: Stage IV mantle cell lymphoma (quiescence), lung cancer s/p wedge resection, hypoglobulinemia, CAD s/p stent placement, DM2, HTN, COPD, and perforated sigmoid diverticulitis s/p Milli procedure PSHx: Rob procedure, Colostomy reversal, and lung wedge resection Family History: Non-Contributory Social History: Denies any tobacco, alcohol or illicit drug abuse Allergies: Zithromax, Keflex and PCN Home Medications: As per MAR Physical Examination: - Constitutional Constitutional: Non-toxic, No Acute Distress - Head Exam Head Exam: ATRAUMATIC, NORMOCEPHALIC - Eye Exam Eye Exam: EOMI, PERRL. absent: Scleral icterus - ENT Exam ENT Exam: Mucous Membranes Moist, Normal Oropharynx - Neck Exam Neck Exam: Full ROM, Normal Inspection - Respiratory Exam Respiratory Exam: Clear to Auscultation Bilateral. absent: Rales, Rhonchi, Wheezes - Cardiovascular Exam Cardiovascular Exam: RRR, +S1, +S2. absent: Gallop, Rubs - GI/Abdominal Exam GI & Abdominal Exam: Soft, Normal Bowel Sounds. absent: Distended, Firm, Guarding, Rigid, Tenderness, Organomegaly, Rebound - Extremities Exam Extremities Exam: Normal Inspection. absent: Pedal Edema - Neurological Exam Neurological Exam: Alert, Awake, Orientated x 3 - Psychiatric Exam Psychiatric exam: Normal Affect, Normal Mood - Skin Skin Exam: Dry, Intact, Normal Color, Warm, pressure bandage on sacrum is clean, dry, and intact Assessment and Plan: 77 year old male with a past medical history significant for stage IV mantle cell lymphoma (quiescence), lung cancer s/p wedge resection, hypoglobulinemia, CAD s/p stent placement, DM2, HTN, COPD, and perforated sigmoid diverticulitis s/p Milli procedure who was admitted for fevers and chills. IR Catheter Site Bleed - 01/23/2018 CT Abdomen and Pelvis with contrast- Decrease in inflammatory changes at the sigmoid anastomotic suture line. Stable well-formed fluid collection interposed between the sigmoid and sacrum. Interposed between the anastomotic suture line in the sacrum is a well-formed collection measuring 4.2 x 7 cm. This is either postoperative seroma or abscess. - IR consulted- appreciate recommendations- patient will require aspirin and plavix due to recent stent placement, awaiting recs on transfer from ICU Fungal Dermatitis - Nystatin cream to affected groin region TID - continue lotrimin cream to affected areas involving lower extremity History of CAD -s/p Cardiac cath with two BRAULIO placed -Continue Plavix, ASA, Lipitor, zetia, and Lopressor Normocytic Anemia -H/H stable -Continue to monitor with daily CBC's History of COPD -Continue xopenex -Continue Singulair History of BPH -Continue Rapaflo and Oxybutynin History of DM2 -SSI-Med and Accuchecks ACHS Deconditioning - continue PT in TCU setting Prophylaxis - GI Prophylaxis: famotidine - DVT Prophylaxis: SCD's Please make note this is a complex patient with multiple comorbid medical issues. We will continue to monitor the patient patient aggressively. Case thoroughly discussed with patient's . Time spend with the patient is greater than 45 minutes. Patient case discussed with, and plan approved by attending physician, Dr. Minor. Present on Admission - Present on Admission Any Indicators Present on Admission: No Past Patient History - Infectious Disease Hx of Infectious Diseases: None - Tetanus Immunizations Tetanus Immunization: Unknown - Past Medical History & Family History Past Medical History?: Yes - Past Social History Smoking Status: Never Smoked - CARDIAC Hx Cardiac Disorders: Yes (CAD, S/P 4 cardiac stents AND 2 STENTS ON 01/08/2018, [place]) Hx Hypertension: Yes - PULMONARY Hx Respiratory Disorders: Yes Hx Chronic Obstructive Pulmonary Disease (COPD): Yes Hx Pneumonia: Yes Other/Comment: lung ca with lung resction - NEUROLOGICAL Hx Neurological Disorder: Yes Hx Transient Ischemic Attacks (TIA): Yes - HEENT Hx HEENT Problems: Yes Hx Cataracts: (h0h b/lhearing aid) - RENAL Hx Chronic Kidney Disease: No - ENDOCRINE/METABOLIC Hx Diabetes Mellitus Type 2: Yes - HEMATOLOGICAL/ONCOLOGICAL Hx Blood Disorders: Yes Hx Anemia: Yes (blood transfusions) Hx Cancer: Yes (mantle cell lymphoma dx about 7 yrs ago) Hx Chemotherapy: Yes Other/Comment: neutropenia, hypogammaglobunemia, sepsis - INTEGUMENTARY Hx Dermatological Problems: No - MUSCULOSKELETAL/RHEUMATOLOGICAL Hx Falls: No - GASTROINTESTINAL Hx Gastrointestinal Disorders: No (DIVERTICULITIS,SIGMOIDECTOMY,COLOSTOMY REVERSAL) - GENITOURINARY/GYNECOLOGICAL Hx Genitourinary Disorders: Yes (LEFT NEPHROSTOMY) Hx Prostate Problems: Yes (bph) - PSYCHIATRIC Hx Psychophysiologic Disorder: No Hx Substance Use: No - SURGICAL HISTORY Hx Cardiac Catheterization: Yes (sents x4) Hx Musculoskeletal Surgery: Yes Hx Open Heart Surgery: Yes Other/Comment: lung wedge resection,perforated sigmoid diverticulosis sp rob procedure.colostomy reversal.left nephrostomy.02-06-2018 sp abscess drainage mariza sacral space - ANESTHESIA Hx Anesthesia: Yes Hx Anesthesia Reactions: No Hx Malignant Hyperthermia: No Meds Allergies/Adverse Reactions: Allergies Allergy/AdvReac Type Severity Reaction Status Date / Time azithromycin Allergy Severe ANGIOEDEMA Verified 01/09/18 19:42 erythromycin base Allergy Severe ANGIOEDEMA Verified 01/09/18 19:42 Penicillins Allergy Severe ANAPHYLAXIS Verified 01/09/18 19:42 cephalexin monohydrate Allergy Intermediate RASH Verified 01/09/18 19:42 [From Keflex] gabapentin Allergy Intermediate RASH Verified 01/09/18 19:42 pregabalin Allergy Intermediate RASH Verified 01/09/18 19:42 Sulfa (Sulfonamide Allergy Intermediate RASH Verified 01/09/18 19:42 Antibiotics) nitro paste Allergy Intermediate DIZZINESS/H Uncoded 01/09/18 19:42 YPOTENSION Imbrovica Allergy FEVER Uncoded 01/09/18 19:42 Results - Vital Signs Recent Vital Signs: Last Vital Signs Temp 98.4 F 02/08/18 04:00 Pulse 71 02/08/18 07:38 Resp 24 02/08/18 06:00 BP 124/73 02/08/18 06:00 Pulse Ox 94 L 02/08/18 06:00 - Labs Result Diagrams: 02/08/18 06:30 02/08/18 07:00 Labs: Laboratory Results - last 24 hr 02/08/18 02/08/18 02/08/18 00:40 06:30 06:30 WBC 4.6 5.3 RBC 4.03 4.09 Hgb 11.4 L 11.8 L Hct 35.4 L 35.9 L MCV 87.8 87.8 MCH 28.3 28.9 MCHC 32.2 32.9 RDW 14.9 H 15.1 H Plt Count 216 191 MPV 9.5 9.5 Gran % 48.1 L 53.6 Lymph % (Auto) 38.7 H 35.4 H [place] % (Auto) 7.0 H 6.7 H Eos % (Auto) 5.5 H 4.1 Baso % (Auto) 0.7 0.2 Gran # 2.19 2.86 Lymph # (Auto) 1.8 1.9 [place] # (Auto) 0.3 0.4 Eos # (Auto) 0.3 0.2 Baso # (Auto) 0.03 0.01 Sodium Potassium Chloride Carbon Dioxide Anion Gap BUN Creatinine Est GFR ( Amer) Est GFR (Non-Af Amer) Random Glucose Calcium Phosphorus Magnesium Total Bilirubin AST ALT Alkaline Phosphatase Total Protein Albumin Globulin Albumin/Globulin Ratio BBK History Checked Patient has bt 02/08/18 07:00 WBC RBC Hgb Hct MCV MCH MCHC RDW Plt Count MPV Gran % Lymph % (Auto) [place] % (Auto) Eos % (Auto) Baso % (Auto) Gran # Lymph # (Auto) [place] # (Auto) Eos # (Auto) Baso # (Auto) Sodium 136 Potassium 3.9 Chloride 106 Carbon Dioxide 24 Anion Gap 9 L BUN 15 Creatinine 0.9 Est GFR ( Amer) > 60 Est GFR (Non-Af Amer) > 60 Random Glucose 140 H Calcium 8.3 L Phosphorus 2.5 Magnesium 2.4 H Total Bilirubin 0.7 AST 27 ALT 30 Alkaline Phosphatase 133 H Total Protein 6.2 Albumin 3.1 Globulin 3.1 Albumin/Globulin Ratio 1.0 L BBK History Checked
[2018-02-08] MEDS: Lactobacillus Acidophilus 500 MU Cap PO SCH ×2 (09:26→16:37)
[2018-02-08] MEDS: Clotrimazole 1% Cream(30 gm) TOP SCH ×2 (09:26→16:36)
[2018-02-08] MEDS ORDERED: Magnesium Oxide 400 mg Tab UD PO SCH (10:00)
[2018-02-08] MEDS ORDERED: Lidocaine 5% Patch TD SCH (10:00)
--- NOTE | 2018-02-08 12:05 | CP.CCUPN ---
<Rohit Perkins - Last Filed: 02/08/18 12:53> CCU Subjective - Physician Review Subjective (Free Text): Patient seen and examined at bedside. was ambulating in room, AAOx3, in NAD. H ereported no complaints and no acue events overnight. Patient denied CP, SOB, palpitations, fever, chills, abdominal pain, N/V/D CCU Objective - Vital Signs / Intake & Output Vital Signs (Last 4 hours): Vital Signs Pulse 02/08/18 10:00 61 Intake and Output (Last 8hrs): Intake & Output 02/07/18 02/08/18 02/08/18 22:59 06:59 14:59 Intake Total 400 Output Total 400 Balance 0 Weight 136 lb 6.4 oz 136 lb 6.4 oz Intake: IV 100 Right Subclavian 100 Oral 300 Output: Urine 400 Urine, Voided 400 Other: Voiding Method Urinal # Bowel Movements 1 - Physical Exam Head: Positive for: Atraumatic, Normocephalic Pupils: Positive for: PERRL Extroacular Muscles: Positive for: EOMI Mouth: Positive for: Moist Mucous Membranes Pharnyx: Positive for: Normal Nose (External): Positive for: Atraumatic Neck: Positive for: Normal Range of Motion, MIDLINE TENDERNESS Respiratory/Chest: Positive for: Clear to Auscultation, Good Air Exchange. Negative for: Accessory Muscle Use, Rales, Rhonchi Cardiovascular: Positive for: Regular Rate and Rhythm, Normal S1, S2 Abdomen: Positive for: Normal Bowel Sounds. Negative for: Tenderness, Guarding Back: Positive for: Normal Inspection, Other (dressing applied to surgical incision, intact, no erythema, non tender) Upper Extremity: Positive for: Normal Inspection Lower Extremity: Positive for: NORMAL PULSES. Negative for: Edema, Swelling, Erythema Neurological: Positive for: CN II-XII Intact, Speech Normal Skin: Positive for: Warm, Dry, Normal Color Psychiatric: Positive for: Alert, Oriented x 3, Normal Insight, Normal Concentration - Medications Active Medications: Active Medications Generic Name Dose Route Start Last Admin Trade Name Freq PRN Reason Stop Dose Admin Acetaminophen 650 mg 02/07/18 23:25 Tylenol 325mg Tab PO Q4H PRN Fever >100.4 F Aluminum Hydroxide 30 ml 02/07/18 23:26 Aluminum Hydroxide Gel 320mg /5ml Susp (Bulk) PO Q4H PRN Indigestion Aspirin 81 mg 02/08/18 10:00 Ecotrin PO DAILY [facility] Atorvastatin Calcium 20 mg 02/08/18 17:00 Lipitor PO DIN [facility] [place] Clopidogrel Bisulfate 75 mg 02/08/18 10:00 Plavix PO DAILY [facility] [place] Clotrimazole 1 gm 02/08/18 10:00 02/08/18 09:26 Lotrimin 1% TOP 1 applic BID ALEX Administration Dextrose 0 ml 02/07/18 23:34 Dextrose 50% Inj IV STAT PRN Hypoglycemia Protocol Protocol Ezetimibe 10 mg 02/08/18 10:00 02/08/18 09:27 Zetia PO 10 mg DAILY ALEX Administration Dextrose 1,000 mls @ 0 mls/hr 02/07/18 23:34 Dextrose 5% In Water 1000 Ml IV .Q0M PRN Hypoglycemia Protocol Protocol Per Protocol Insulin Human Lispro 0 units 02/08/18 07:30 02/08/18 08:17 Humalog Med SC Not Given ACHS [facility] [place] Protocol Lactobacillus Acidophilus 1 cap 02/08/18 10:00 02/08/18 09:26 Bacid Acidophilus PO 1 cap BID ALEX Administration Levalbuterol HCl 0.63 mg 02/08/18 08:00 02/08/18 08:19 Xopenex IH Not Given TIDRESP [facility] Lidocaine 1 ea 02/08/18 10:00 02/08/18 09:26 Lidoderm TD 1 ea DAILY ALEX Administration Magnesium Oxide 400 mg 02/08/18 10:00 02/08/18 09:27 Mag-Ox PO Not Given DAILY [facility] [place] Metoprolol Tartrate 12.5 mg 02/08/18 18:00 Lopressor PO QPM [facility] Montelukast Sodium 10 mg 02/08/18 22:00 Singulair PO HS [facility] Morphine Sulfate 2 mg 02/07/18 23:36 Morphine IVP Q4H PRN Pain, severe (8-10) Ondansetron HCl 4 mg 02/07/18 23:37 Zofran Inj IVP Q6H PRN Nausea/Vomiting - Patient Studies Lab Studies: Lab Studies 02/08/18 02/08/18 02/08/18 Range/Units 11:45 07:56 07:00 WBC (4.5-11.0) 10^3/uL RBC (3.5-6.1) 10^6/uL Hgb (14.0-18.0) g/dL Hct (42.0-52.0) % MCV (80.0-105.0) fl MCH (25.0-35.0) pg MCHC (31.0-37.0) g/dl RDW (11.5-14.5) % Plt Count (120.0-450.0) 10^3/uL MPV (7.0-11.0) fl Gran % (50.0-68.0) % Lymph % (Auto) (22.0-35.0) % Stafford % (Auto) (1.0-6.0) % Eos % (Auto) (1.5-5.0) % Baso % (Auto) (0.0-3.0) % Gran # (1.4-6.5) Lymph # (Auto) (1.2-3.4) Stafford # (Auto) (0.1-0.6) Eos # (Auto) (0.0-0.7) Baso # (Auto) (0.0-2.0) K/mm3 Sodium 136 (132-148) mmol/L Potassium 3.9 (3.6-5.0) mmol/L Chloride 106 (98-107) mmol/L Carbon Dioxide 24 (21-33) mmol/L Anion Gap 9 L (10-20) BUN 15 (7-21) mg/dL Creatinine 0.9 (0.8-1.5) mg/dl Est GFR ( Amer) > 60 Est GFR (Non-Af Amer) > 60 POC Glucose (mg/dL) 146 H 102 (65-110) mg/dL Random Glucose 140 H (70-110) mg/dL Calcium 8.3 L (8.4-10.5) mg/dL Phosphorus 2.5 (2.5-4.5) mg/dL Magnesium 2.4 H (1.7-2.2) mg/dL Total Bilirubin 0.7 (0.2-1.3) mg/dL AST 27 (17-59) U/L ALT 30 (7-56) U/L Alkaline Phosphatase 133 H (38-126) U/L Total Protein 6.2 (5.8-8.3) g/dL Albumin 3.1 (3.0-4.8) g/dL Globulin 3.1 gm/dL Albumin/Globulin Ratio 1.0 L (1.1-1.8) Blood Type Antibody Screen BBK History Checked 02/08/18 02/08/18 02/08/18 Range/Units 06:30 06:30 00:40 WBC 5.3 4.6 (4.5-11.0) 10^3/uL RBC 4.09 4.03 (3.5-6.1) 10^6/uL Hgb 11.8 L 11.4 L (14.0-18.0) g/dL Hct 35.9 L 35.4 L (42.0-52.0) % MCV 87.8 87.8 (80.0-105.0) fl MCH 28.9 28.3 (25.0-35.0) pg MCHC 32.9 32.2 (31.0-37.0) g/dl RDW 15.1 H 14.9 H (11.5-14.5) % Plt Count 191 216 (120.0-450.0) 10^3/uL MPV 9.5 9.5 (7.0-11.0) fl Gran % 53.6 48.1 L (50.0-68.0) % Lymph % (Auto) 35.4 H 38.7 H (22.0-35.0) % Stafford % (Auto) 6.7 H 7.0 H (1.0-6.0) % Eos % (Auto) 4.1 5.5 H (1.5-5.0) % Baso % (Auto) 0.2 0.7 (0.0-3.0) % Gran # 2.86 2.19 (1.4-6.5) Lymph # (Auto) 1.9 1.8 (1.2-3.4) Stafford # (Auto) 0.4 0.3 (0.1-0.6) Eos # (Auto) 0.2 0.3 (0.0-0.7) Baso # (Auto) 0.01 0.03 (0.0-2.0) K/mm3 Sodium (132-148) mmol/L Potassium (3.6-5.0) mmol/L Chloride (98-107) mmol/L Carbon Dioxide (21-33) mmol/L Anion Gap (10-20) BUN (7-21) mg/dL Creatinine (0.8-1.5) mg/dl Est GFR ( Amer) Est GFR (Non-Af Amer) POC Glucose (mg/dL) (65-110) mg/dL Random Glucose (70-110) mg/dL Calcium (8.4-10.5) mg/dL Phosphorus (2.5-4.5) mg/dL Magnesium (1.7-2.2) mg/dL Total Bilirubin (0.2-1.3) mg/dL AST (17-59) U/L ALT (7-56) U/L Alkaline Phosphatase (38-126) U/L Total Protein (5.8-8.3) g/dL Albumin (3.0-4.8) g/dL Globulin gm/dL Albumin/Globulin Ratio (1.1-1.8) Blood Type A NEGATIVE Antibody Screen Negative BBK History Checked Patient has bt Laboratory Results - last 24 hr 02/08/18 02/08/18 02/08/18 00:40 06:30 06:30 WBC 4.6 5.3 RBC 4.03 4.09 Hgb 11.4 L 11.8 L Hct 35.4 L 35.9 L MCV 87.8 87.8 MCH 28.3 28.9 MCHC 32.2 32.9 RDW 14.9 H 15.1 H Plt Count 216 191 MPV 9.5 9.5 Gran % 48.1 L 53.6 Lymph % (Auto) 38.7 H 35.4 H [place] % (Auto) 7.0 H 6.7 H Eos % (Auto) 5.5 H 4.1 Baso % (Auto) 0.7 0.2 Gran # 2.19 2.86 Lymph # (Auto) 1.8 1.9 [place] # (Auto) 0.3 0.4 Eos # (Auto) 0.3 0.2 Baso # (Auto) 0.03 0.01 Sodium Potassium Chloride Carbon Dioxide Anion Gap BUN Creatinine Est GFR ( Amer) Est GFR (Non-Af Amer) POC Glucose (mg/dL) Random Glucose Calcium Phosphorus Magnesium Total Bilirubin AST ALT Alkaline Phosphatase Total Protein Albumin Globulin Albumin/Globulin Ratio Blood Type A NEGATIVE Antibody Screen Negative BBK History Checked Patient has bt 02/08/18 02/08/18 02/08/18 07:00 07:56 11:45 WBC RBC Hgb Hct MCV MCH MCHC RDW Plt Count MPV Gran % Lymph % (Auto) Stafford % (Auto) Eos % (Auto) Baso % (Auto) Gran # Lymph # (Auto) [place] # (Auto) Eos # (Auto) Baso # (Auto) Sodium 136 Potassium 3.9 Chloride 106 Carbon Dioxide 24 Anion Gap 9 L BUN 15 Creatinine 0.9 Est GFR ( Amer) > 60 Est GFR (Non-Af Amer) > 60 POC Glucose (mg/dL) 102 146 H Random Glucose 140 H Calcium 8.3 L Phosphorus 2.5 Magnesium 2.4 H Total Bilirubin 0.7 AST 27 ALT 30 Alkaline Phosphatase 133 H Total Protein 6.2 Albumin 3.1 Globulin 3.1 Albumin/Globulin Ratio 1.0 L Blood Type Antibody Screen BBK History Checked Fingerstick Blood Sugar Results: 146 Critical Care Progress Note - Nutrition Nutrition: Nutrition Category Date Time Status Heart Healthy Diet [DIET] Diets 02/07/18 Dinner Active Assessment/Plan - Assessment and Plan (Free Text) Assessment: 77 y/o male with PMH of lung cancer s/p wedge resection, stage IV mantle cell lymphoma, hypoglobulinemia, CAD s/p stent placement, DM2, HTN, COPD, and perforated sigmoid diverticulitis s/p Milli procedure admitted to ICU for observation s/p removal of drainage catheter in presacral space by IR Dr. Horne.. Hemodynamically stable, afebrile, normotensive, doing well Plan: Neuro: -AAOx3, in NAD -maintain normothermia CVS: -s/p PCI with 2 BRAULIO placed -continue aspirin and plavix, lipitor, zetia, and Lopressor -maintain MAP >65 GI: -continue zofran for nausea -continue ppi Resp: -in NAD -Continue Singulair, xopenex -supp O2 prn -maintain O2 sat >90% Renal/: -h/o BPH -Continue Rapaflo and Oxybutynin Endo: -ISS-med -accuchecks ACHS MSK: -deconditioning, continue PT -lidoderm patch Heme: -H/H stable. continue monitoring -PT/INR wnl -patient asymptomatic, no signs of bleeding -h/o chronic anemia -type and Screen ID: -afebrile, no leukocytosis -d/c meropenem Prophylaxis: -GI ppx: famotidine -DVT ppx: SCD's Dispo: Patient is hemodynamically stable, afebrile, normotensive, H/H stable. Will be transferred home today Case reviewed and plan discussed with Dr. Miller <Rizwan Miller - Last Filed: 02/08/18 15:08> CCU Objective - Vital Signs / Intake & Output Vital Signs (Last 4 hours): Vital Signs Temp Pulse Resp BP Pulse Ox 02/08/18 14:20 87 18 95 02/08/18 14:10 97 H 21 95 02/08/18 14:00 73 22 150/60 99 02/08/18 13:50 81 21 97 02/08/18 13:40 76 23 97 02/08/18 13:30 83 30 H 96 02/08/18 13:20 81 22 100 02/08/18 13:10 77 24 95 02/08/18 13:00 84 26 H 02/08/18 12:55 84 31 H 02/08/18 12:40 78 78 H 02/08/18 12:30 76 27 H 02/08/18 12:20 75 02/08/18 12:10 99 H 52 H 99 02/08/18 12:00 97.7 F 75 18 135/69 99 02/08/18 11:59 73 26 H 98 02/08/18 11:50 79 26 H 99 02/08/18 11:45 87 99 Intake and Output (Last 8hrs): Intake & Output 02/08/18 02/08/18 02/08/18 06:59 14:59 22:59 Intake Total 400 Output Total 400 Balance 0 Weight 61.87 kg Intake: IV 100 Right Subclavian 100 Oral 300 Output: Urine 400 Urine, Voided 400 Other: Voiding Method Urinal # Bowel Movements 1 - Medications Active Medications: Active Medications Generic Name Dose Route Start Last Admin Trade Name Freq PRN Reason Stop Dose Admin Acetaminophen 650 mg 02/07/18 23:25 Tylenol 325mg Tab PO Q4H PRN Fever >100.4 F Aluminum Hydroxide 30 ml 02/07/18 23:26 Aluminum Hydroxide Gel 320mg /5ml Susp (Bulk) PO Q4H PRN Indigestion Aspirin 81 mg 02/08/18 10:00 02/08/18 12:17 Ecotrin PO 81 mg DAILY ALEX Administration Atorvastatin Calcium 20 mg 02/08/18 17:00 Lipitor PO DIN ALEX Clopidogrel Bisulfate 75 mg 02/08/18 10:00 02/08/18 12:17 Plavix PO 75 mg DAILY ALEX Administration Clotrimazole 1 gm 02/08/18 10:00 02/08/18 09:26 Lotrimin 1% TOP 1 applic BID ALEX Administration Dextrose 0 ml 02/07/18 23:34 Dextrose 50% Inj IV STAT PRN Hypoglycemia Protocol Protocol Ezetimibe 10 mg 02/08/18 10:00 02/08/18 09:27 Zetia PO 10 mg DAILY ALEX Administration Dextrose 1,000 mls @ 0 mls/hr 02/07/18 23:34 Dextrose 5% In Water 1000 Ml IV .Q0M PRN Hypoglycemia Protocol Protocol Per Protocol Insulin Human Lispro 0 units 02/08/18 07:30 02/08/18 12:17 Humalog Med SC Not Given ACHS [facility] Protocol Lactobacillus Acidophilus 1 cap 02/08/18 10:00 02/08/18 09:26 Bacid Acidophilus PO 1 cap BID ALEX Administration Levalbuterol HCl 0.63 mg 02/08/18 08:00 02/08/18 13:11 Xopenex IH 0.63 mg TIDRESP ALEX Administration Lidocaine 1 ea 02/08/18 10:00 02/08/18 09:26 Lidoderm TD 1 ea DAILY ALEX Administration Magnesium Oxide 400 mg 02/08/18 10:00 02/08/18 09:27 Mag-Ox PO Not Given DAILY [facility] [place] Metoprolol Tartrate 12.5 mg 02/08/18 18:00 Lopressor PO QPM [facility] Montelukast Sodium 10 mg 02/08/18 22:00 Singulair PO HS ALEX Morphine Sulfate 2 mg 02/07/18 23:36 Morphine IVP Q4H PRN Pain, severe (8-10) Ondansetron HCl 4 mg 02/07/18 23:37 Zofran Inj IVP Q6H PRN Nausea/Vomiting - Patient Studies Lab Studies: Lab Studies 02/08/18 02/08/18 02/08/18 Range/Units 11:45 07:56 07:00 WBC (4.5-11.0) 10^3/uL RBC (3.5-6.1) 10^6/uL Hgb (14.0-18.0) g/dL Hct (42.0-52.0) % MCV (80.0-105.0) fl MCH (25.0-35.0) pg MCHC (31.0-37.0) g/dl RDW (11.5-14.5) % Plt Count (120.0-450.0) 10^3/uL MPV (7.0-11.0) fl Gran % (50.0-68.0) % Lymph % (Auto) (22.0-35.0) % Stafford % (Auto) (1.0-6.0) % Eos % (Auto) (1.5-5.0) % Baso % (Auto) (0.0-3.0) % Gran # (1.4-6.5) Lymph # (Auto) (1.2-3.4) Stafford # (Auto) (0.1-0.6) Eos # (Auto) (0.0-0.7) Baso # (Auto) (0.0-2.0) K/mm3 Sodium 136 (132-148) mmol/L Potassium 3.9 (3.6-5.0) mmol/L Chloride 106 (98-107) mmol/L Carbon Dioxide 24 (21-33) mmol/L Anion Gap 9 L (10-20) BUN 15 (7-21) mg/dL Creatinine 0.9 (0.8-1.5) mg/dl Est GFR ( Amer) > 60 Est GFR (Non-Af Amer) > 60 POC Glucose (mg/dL) 146 H 102 (65-110) mg/dL Random Glucose 140 H (70-110) mg/dL Calcium 8.3 L (8.4-10.5) mg/dL Phosphorus 2.5 (2.5-4.5) mg/dL Magnesium 2.4 H (1.7-2.2) mg/dL Total Bilirubin 0.7 (0.2-1.3) mg/dL AST 27 (17-59) U/L ALT 30 (7-56) U/L Alkaline Phosphatase 133 H (38-126) U/L Total Protein 6.2 (5.8-8.3) g/dL Albumin 3.1 (3.0-4.8) g/dL Globulin 3.1 gm/dL Albumin/Globulin Ratio 1.0 L (1.1-1.8) Blood Type Antibody Screen BBK History Checked 02/08/18 02/08/18 02/08/18 Range/Units 06:30 06:30 00:40 WBC 5.3 4.6 (4.5-11.0) 10^3/uL RBC 4.09 4.03 (3.5-6.1) 10^6/uL Hgb 11.8 L 11.4 L (14.0-18.0) g/dL Hct 35.9 L 35.4 L (42.0-52.0) % MCV 87.8 87.8 (80.0-105.0) fl MCH 28.9 28.3 (25.0-35.0) pg MCHC 32.9 32.2 (31.0-37.0) g/dl RDW 15.1 H 14.9 H (11.5-14.5) % Plt Count 191 216 (120.0-450.0) 10^3/uL MPV 9.5 9.5 (7.0-11.0) fl Gran % 53.6 48.1 L (50.0-68.0) % Lymph % (Auto) 35.4 H 38.7 H (22.0-35.0) % Stafford % (Auto) 6.7 H 7.0 H (1.0-6.0) % Eos % (Auto) 4.1 5.5 H (1.5-5.0) % Baso % (Auto) 0.2 0.7 (0.0-3.0) % Gran # 2.86 2.19 (1.4-6.5) Lymph # (Auto) 1.9 1.8 (1.2-3.4) Stafford # (Auto) 0.4 0.3 (0.1-0.6) Eos # (Auto) 0.2 0.3 (0.0-0.7) Baso # (Auto) 0.01 0.03 (0.0-2.0) K/mm3 Sodium (132-148) mmol/L Potassium (3.6-5.0) mmol/L Chloride (98-107) mmol/L Carbon Dioxide (21-33) mmol/L Anion Gap (10-20) BUN (7-21) mg/dL Creatinine (0.8-1.5) mg/dl Est GFR ( Amer) Est GFR (Non-Af Amer) POC Glucose (mg/dL) (65-110) mg/dL Random Glucose (70-110) mg/dL Calcium (8.4-10.5) mg/dL Phosphorus (2.5-4.5) mg/dL Magnesium (1.7-2.2) mg/dL Total Bilirubin (0.2-1.3) mg/dL AST (17-59) U/L ALT (7-56) U/L Alkaline Phosphatase (38-126) U/L Total Protein (5.8-8.3) g/dL Albumin (3.0-4.8) g/dL Globulin gm/dL Albumin/Globulin Ratio (1.1-1.8) Blood Type A NEGATIVE Antibody Screen Negative BBK History Checked Patient has bt Laboratory Results - last 24 hr 02/08/18 02/08/18 02/08/18 00:40 06:30 06:30 WBC 4.6 5.3 RBC 4.03 4.09 Hgb 11.4 L 11.8 L Hct 35.4 L 35.9 L MCV 87.8 87.8 MCH 28.3 28.9 MCHC 32.2 32.9 RDW 14.9 H 15.1 H Plt Count 216 191 MPV 9.5 9.5 Gran % 48.1 L 53.6 Lymph % (Auto) 38.7 H 35.4 H Stafford % (Auto) 7.0 H 6.7 H Eos % (Auto) 5.5 H 4.1 Baso % (Auto) 0.7 0.2 Gran # 2.19 2.86 Lymph # (Auto) 1.8 1.9 Stafford # (Auto) 0.3 0.4 Eos # (Auto) 0.3 0.2 Baso # (Auto) 0.03 0.01 Sodium Potassium Chloride Carbon Dioxide Anion Gap BUN Creatinine Est GFR ( Amer) Est GFR (Non-Af Amer) POC Glucose (mg/dL) Random Glucose Calcium Phosphorus Magnesium Total Bilirubin AST ALT Alkaline Phosphatase Total Protein Albumin Globulin Albumin/Globulin Ratio Blood Type A NEGATIVE Antibody Screen Negative BBK History Checked Patient has bt 02/08/18 02/08/18 02/08/18 07:00 07:56 11:45 WBC RBC Hgb Hct MCV MCH MCHC RDW Plt Count MPV Gran % Lymph % (Auto) Stafford % (Auto) Eos % (Auto) Baso % (Auto) Gran # Lymph # (Auto) Stafford # (Auto) Eos # (Auto) Baso # (Auto) Sodium 136 Potassium 3.9 Chloride 106 Carbon Dioxide 24 Anion Gap 9 L BUN 15 Creatinine 0.9 Est GFR ( Amer) > 60 Est GFR (Non-Af Amer) > 60 POC Glucose (mg/dL) 102 146 H Random Glucose 140 H Calcium 8.3 L Phosphorus 2.5 Magnesium 2.4 H Total Bilirubin 0.7 AST 27 ALT 30 Alkaline Phosphatase 133 H Total Protein 6.2 Albumin 3.1 Globulin 3.1 Albumin/Globulin Ratio 1.0 L Blood Type Antibody Screen BBK History Checked Critical Care Progress Note - Nutrition Nutrition: Nutrition Category Date Time Status Heart Healthy Diet [DIET] Diets 02/07/18 Dinner Active Addendum Addendum: 02/08/18 15:08 MICU Attending Addendum: Patient seen and examined; Case discussed on rounds with housestaff; Agree resident with note above with the following additions/exceptions: 77 M hx of lung cancer s/p wedge resection, stage IV mantle cell lymphoma, hypoglobulinemia, CAD s/p stent placement, DM2, HTN, COPD, and perforated sigmoid diverticulitis s/p Milli procedure admitted to ICU for observation after removal of drainage catheter in presacral space complicated by large amount of bleeding. No bleeding episodes overnight/this AM. HB stable, did not require transfusion. Hemodynamically stable. D/w Dr. Horne who spoke with Lucia and primary team will likely discharge patient today. Agree from an ICU perspective. Rest of care as above Rizwan Miller MD Pulmonary Critical Care and Sleep Medicine
--- NOTE | 2018-02-08 12:13 | CP.PCM.DIS ---
Provider - Provider Date of Admission: 02/07/18 22:20 Attending physician: Ted Santoyo MD Primary care physician: Alie Myers MD Consults: 02/08/18 02:52 Nursing Referral for Wound Care Routine Comment: Physician Instructions: Reason For Exam: sacral wound 02/08/18 07:42 Nursing Referral for Wound Care Routine Comment: Physician Instructions: Reason For Exam: sacral Time Spent in preparation of Discharge (in minutes): 45 Hospital Course - Lab Results Lab Results: Most Recent Lab Values WBC 5.3 10^3/uL (4.5-11.0) 02/08/18 06:30 RBC 4.09 10^6/uL (3.5-6.1) 02/08/18 06:30 Hgb 11.8 g/dL (14.0-18.0) L 02/08/18 06:30 Hct 35.9 % (42.0-52.0) L 02/08/18 06:30 MCV 87.8 fl (80.0-105.0) 02/08/18 06:30 MCH 28.9 pg (25.0-35.0) 02/08/18 06:30 MCHC 32.9 g/dl (31.0-37.0) 02/08/18 06:30 RDW 15.1 % (11.5-14.5) H 02/08/18 06:30 Plt Count 191 10^3/uL (120.0-450.0) 02/08/18 06:30 MPV 9.5 fl (7.0-11.0) 02/08/18 06:30 Gran % 53.6 % (50.0-68.0) 02/08/18 06:30 Lymph % (Auto) 35.4 % (22.0-35.0) H 02/08/18 06:30 [place] % (Auto) 6.7 % (1.0-6.0) H 02/08/18 06:30 Eos % (Auto) 4.1 % (1.5-5.0) 02/08/18 06:30 Baso % (Auto) 0.2 % (0.0-3.0) 02/08/18 06:30 Gran # 2.86 (1.4-6.5) 02/08/18 06:30 Lymph # (Auto) 1.9 (1.2-3.4) 02/08/18 06:30 [place] # (Auto) 0.4 (0.1-0.6) 02/08/18 06:30 Eos # (Auto) 0.2 (0.0-0.7) 02/08/18 06:30 Baso # (Auto) 0.01 K/mm3 (0.0-2.0) 02/08/18 06:30 Sodium 136 mmol/L (132-148) 02/08/18 07:00 Potassium 3.9 mmol/L (3.6-5.0) 02/08/18 07:00 Chloride 106 mmol/L (98-107) 02/08/18 07:00 Carbon Dioxide 24 mmol/L (21-33) 02/08/18 07:00 Anion Gap 9 (10-20) L 02/08/18 07:00 BUN 15 mg/dL (7-21) 02/08/18 07:00 Creatinine 0.9 mg/dl (0.8-1.5) 02/08/18 07:00 Est GFR ( Amer) > 60 02/08/18 07:00 Est GFR (Non-Af Amer) > 60 02/08/18 07:00 POC Glucose (mg/dL) 146 mg/dL (65-110) H 02/08/18 11:45 Random Glucose 140 mg/dL (70-110) H 02/08/18 07:00 Calcium 8.3 mg/dL (8.4-10.5) L 02/08/18 07:00 Phosphorus 2.5 mg/dL (2.5-4.5) 02/08/18 07:00 Magnesium 2.4 mg/dL (1.7-2.2) H 02/08/18 07:00 Total Bilirubin 0.7 mg/dL (0.2-1.3) 02/08/18 07:00 AST 27 U/L (17-59) 02/08/18 07:00 ALT 30 U/L (7-56) 02/08/18 07:00 Alkaline Phosphatase 133 U/L (38-126) H 02/08/18 07:00 Total Protein 6.2 g/dL (5.8-8.3) 02/08/18 07:00 Albumin 3.1 g/dL (3.0-4.8) 02/08/18 07:00 Globulin 3.1 gm/dL 02/08/18 07:00 Albumin/Globulin Ratio 1.0 (1.1-1.8) L 02/08/18 07:00 Blood Type A NEGATIVE 02/08/18 06:30 Antibody Screen Negative 02/08/18 06:30 BBK History Checked Patient has bt 02/08/18 06:30 - Hospital Course Hospital Course: THIS IS A DRAFT Discharge Exam - Head Exam Head Exam: ATRAUMATIC, NORMAL INSPECTION, NORMOCEPHALIC Discharge Plan - Follow Up Plan Condition: GOOD Disposition: HOME/ ROUTINE Additional Instructions: Patient Instructions: 1. Please take home medications as prescribed. No new medications will be s tarted at this time. 2. Please follow up with your primary care physician and referral within 3-5 days from discharge. 3. Please return to the emergency department for new or worsening symptoms inclu ding but not limited to fever, chills, dizziness, headache, visual/auditory changes, chest pain, shortness of breath, abdominal pain, nausea, vomiting, diarrhea, constipation, and urinary symptoms. Referrals: Alie Myers MD [Primary Care Provider] - Lloyd Marshall MD [Staff Provider] - Je Horne MD [Staff Provider] - Thanh Price MD [Staff Provider] -
[2018-02-08 16:20] VITALS: RESP 49; O2SAT 96
[2018-02-08 16:35] VITALS: TEMP 98.6
[2018-02-08 16:41] VITALS: BP 107/60; PULSE 90
== END 2018-02-08 17:45 | disposition home or self-care (01) | DRG 920 ==
LOC: CCU 22:20
PROVIDERS: ADMIT Family Medicine; ATTEND Family Medicine
PROC: 0WPGX0Z Removal of Drainage Device from Peritoneal Cavity, External Approach (ICD-10-PCS; principal; 2018-02-07)
DX: T85.838A Hemorrhage due to other internal prosthetic devices, implants and grafts, initial encounter (principal); C83.10 Mantle cell lymphoma, unspecified site; J44.9 Chronic obstructive pulmonary disease, unspecified; I25.10 Atherosclerotic heart disease of native coronary artery without angina pectoris; I10 Essential (primary) hypertension; N40.0 Benign prostatic hyperplasia without lower urinary tract symptoms; E11.9 Type 2 diabetes mellitus without complications; B36.9 Superficial mycosis, unspecified; Y84.8 Other medical procedures as the cause of abnormal reaction of the patient, or of later complication, without mention of misadventure at the time of the procedure; Z85.118 Personal history of other malignant neoplasm of bronchus and lung; Z86.73 Personal history of transient ischemic attack (TIA), and cerebral infarction without residual deficits; Z79.02 Long term (current) use of antithrombotics/antiplatelets; Z95.5 Presence of coronary angioplasty implant and graft

== ENCOUNTER 2018-02-24 21:13 | Emergency (ER) | payer MEDICARE, OTHER ==
[2018-02-24 21:14] VITALS: BMI 27.1
[2018-02-24 21:38] VITALS: BP 137/89; PULSE 87; RESP 18; TEMP 98.1; O2SAT 100
--- NOTE | 2018-02-24 22:27 | ED PDOC ---
Arrival/HPI - General Chief Complaint: Lower Extremity Problem/Injury Time Seen by Provider: 02/24/18 21:18 Historian: Patient, Spouse - History of Present Illness Narrative History of Present Illness (Text): A 78 year old male, whose past medical history includes stage IV mantle cell lymphoma (quiescence), lung cancer s/p wedge resection, hypoglobulinemia, CAD s/p stent placement on plavix, DM2, HTN, COPD, and perforated sigmoid diverticulitis s/p Milli procedure, presents to the emergency department for a complaint of 2 day duration right lower leg pain, swelling, and discoloration. The patient reports pain to the right foot and ankle. No increased warmth or redness or bug bites to the area per pt. He denies any trauma or injury to the extremity. He reports that he was recently admitted to the emergency department for a sacral abscess. patient denies any pain related to the abscess. The patient denies any numbness, weakness, tingling, fever, chills, chest pain, shortness of breath, abdominal pain, nausea, vomiting, diarrhea, urinary symptoms, back pain, neck pain, headache, dizziness, or any other complaints. 02/25/18 01:38 Time/Duration: Other (2 days) Symptom Onset: Sudden Symptom Course: Unchanged Activities at Onset: Rest, Light Context: Home Past Medical History - Provider Review Nursing Documentation Reviewed: Yes - Past History Past History: Unable to Obtain - Infectious Disease Hx of Infectious Diseases: None - Tetanus Immunization Tetanus Immunization: Unknown - Cardiac Hx Cardiac Disorders: Yes (CAD, S/P 4 cardiac stents AND 2 STENTS ON 01/08/2018, [place]) Hx Hypertension: Yes - Pulmonary Hx Respiratory Disorders: Yes Hx Chronic Obstructive Pulmonary Disease (COPD): Yes Hx Pneumonia: Yes Other/Comment: lung ca with lung resction - Neurological Hx Neurological Disorder: Yes Hx Transient Ischemic Attacks (TIA): Yes - HEENT Hx HEENT Disorder: Yes Hx Cataracts: (h0h b/lhearing aid) - Renal Hx Renal Disorder: No - Endocrine/Metabolic Hx Diabetes Mellitus Type 2: Yes - Hematological/Oncological Hx Blood Disorders: Yes Hx Anemia: Yes (blood transfusions) Hx Cancer: Yes (mantle cell lymphoma dx about 7 yrs ago) Hx Chemotherapy: Yes Other/Comment: neutropenia, hypogammaglobunemia, sepsis - Integumentary Hx Dermatological Disorder: No - Musculoskeletal/Rheumatological Hx Falls: No - Gastrointestinal Hx Gastrointestinal Disorders: No (DIVERTICULITIS,SIGMOIDECTOMY,COLOSTOMY REVERSAL) - Genitourinary/Gynecological Hx Genitourinary Disorders: Yes (LEFT NEPHROSTOMY) Hx Prostate Problems: Yes (bph) - Psychiatric Hx Psychophysiologic Disorder: No Hx Substance Use: No - Past Surgical History Past Surgical History: Unable to Obtain - Surgical History Hx Cardiac Catheterization: Yes (sents x4) Hx Musculoskeletal Surgery: Yes Hx Open Heart Surgery: Yes Other/Comment: lung wedge resection,perforated sigmoid diverticulosis sp knutson procedure.colostomy reversal.left nephrostomy.02-06-2018 sp abscess drainage mariza sacral space - Anesthesia Hx Anesthesia: Yes Hx Anesthesia Reactions: No Hx Malignant Hyperthermia: No - Suicidal Assessment Feels Threatened In Home Enviroment: No Family/Social History - Physician Review Nursing Documentation Reviewed: Yes Family/Social History: No Known Family HX Smoking Status: Never Smoked Hx Alcohol Use: No Hx Substance Use: No Hx Substance Use Treatment: No Allergies/Home Meds Allergies/Adverse Reactions: Allergies azithromycin Allergy (Severe, Verified 01/09/18 19:42) ANGIOEDEMA erythromycin base Allergy (Severe, Verified 01/09/18 19:42) ANGIOEDEMA Penicillins Allergy (Severe, Verified 01/09/18 19:42) ANAPHYLAXIS cephalexin monohydrate [From Keflex] Allergy (Intermediate, Verified 01/09/18 19:42) RASH gabapentin Allergy (Intermediate, Verified 01/09/18 19:42) RASH pregabalin Allergy (Intermediate, Verified 01/09/18 19:42) RASH Sulfa (Sulfonamide Antibiotics) Allergy (Intermediate, Verified 01/09/18 19:42) RASH nitro paste Allergy (Intermediate, Uncoded 01/09/18 19:42) DIZZINESS/HYPOTENSION CAUSE HYPOTENSION Imbrovica Allergy (Uncoded 01/09/18 19:42) FEVER Home Medications: Home Meds Medication Instructions Recorded Confirmed RX: Ranolazine [Ranexa] 500 mg PO BID 06/03/16 01/31/18 RX: Ca/D3/Mag#11/Zinc/Farm [employer]/Andrés/Bor 1 tab PO DAILY 11/30/17 01/31/18 [Caltrate 600+D Plus Tablet] RX: Magnesium Oxide [Mag-Ox] 400 mg PO DAILY 11/30/17 01/31/18 RX: Silodosin [Rapaflo] 8 mg PO QPM 11/30/17 01/31/18 RX: Geronimo-3/Dha/Epa/Fish Oil [Fish 1 cap PO DAILY 12/04/17 01/31/[address] 500 mg Softgel] RX: metFORMIN [glucOPHAGE] 500 mg PO BID 12/30/17 01/31/18 Review of Systems - Physician Review All systems were reviewed & negative as marked: Yes - Review of Systems Constitutional: absent: Fatigue, Weight Change, Fevers Eyes: absent: Vision Changes ENT: absent: Hearing Changes, Tinnitus, TMJ Pain Respiratory: absent: SOB, Cough, Sputum Cardiovascular: absent: Chest Pain, Palpitations, Edema Gastrointestinal: absent: Abdominal Pain, Diarrhea, Nausea, Vomiting Genitourinary Male: absent: Dysuria, Frequency, Hematuria, Urinary Output Changes Musculoskeletal: Other (Left foot pain). absent: Arthralgias, Back Pain, Neck Pain Skin: absent: Rash, Pruritis, Skin Lesions Neurological: absent: Headache, Dizziness Psychiatric: absent: Anxiety, Depression Physical Exam Vital Signs Reviewed: Yes Vital Signs Temp Pulse Resp BP Pulse Ox 02/24/18 21:37 98.1 F 87 18 137/89 100 Temperature: Afebrile Blood Pressure: Normal Pulse: Regular Respiratory Rate: Normal Appearance: Positive for: Well-Appearing, Non-Toxic, Comfortable Pain Distress: None Mental Status: Positive for: Alert and Oriented X 3 - Systems Exam Head: Present: Atraumatic, Normocephalic Pupils: Present: PERRL Extroacular Muscles: Present: EOMI Conjunctiva: Present: Normal Mouth: Present: Moist Mucous Membranes Neck: Present: Normal Range of Motion. No: Meningeal Signs Respiratory/Chest: Present: Clear to Auscultation, Good Air Exchange. No: Respiratory Distress, Accessory Muscle Use Cardiovascular: Present: Regular Rate and Rhythm, Normal S1, S2. No: Murmurs Abdomen: No: Tenderness, Distention, Peritoneal Signs Back: Present: Normal Inspection. No: CVA Tenderness Upper Extremity: Present: Normal Inspection. No: Cyanosis, Edema Lower Extremity: Present: NORMAL PULSES (good pedal pulses bilaterally. ), Normal ROM, Tenderness (Tender to palpation along bluish area of R inner foot), Neurovascularly Intact, Capillary Refill < 2 s, Other (mild bluish discolorashon to inner right foot at the base. Negative moran test (good achilles bilaterally). No other pain in any other joint. Good Bedside doppler tone). No: CALF TENDERNESS, Cyanosis, Trent's Sign, Erythema, Deformity, Temperature Abnormalties Neurological: Present: GCS=15, CN II-XII Intact, Speech Normal Skin: Present: Warm, Dry, Normal Color. No: Rashes Psychiatric: Present: Alert, Oriented x 3, Normal Insight, Normal Concentration Medical Decision Making ED Course and Treatment: Impression: A 78 year old male presents to the emergency department with a complaint of left foot pain, swelling, and discoloration. No recent known trauma. Not greatly swollen on exam. Full ROM. No erythema. N/V fully intact w/ normal strength. No back complaints. No fever, chills or night sweats. No vertebral tenderness or back pain. ?doppler vs trauma. Non-thrombophlebitis like. Non-septic joint in appearance. Plan: -- Right Ankle/ Foot X- Ray -- Lower Extremity Ultrasound -- Tylenol -- Labs -- Reassess and disposition Prior Visits: Notes and results from previous visits were reviewed. Progress Notes: 02/24/18 22:28: Good doppler tone. EXAM: CR right foot, 3 View. IMPRESSION: No acute osseous abnormality. Electronically signed on Feb 24, 2018 10:25:15 PM EST by: Gil Ferrara M.D., CARLOS Certified By ABR & CBCCT Fellowship Trained MRI and CT Specialist EXAM: CR right Ankle, 3 View. IMPRESSION: No acute abnormality evident. No acute fracture or dislocation. Electronically signed on Feb 24, 2018 10:25:44 PM EST by: Gil Ferrara M.D., CARLOS Certified By ABR & CBCCT Fellowship Trained MRI and CT Specialist 02/24/18 22:39 Negative Venous doppler no indication for labs, labs cancelled: no erythema to foot or ankle. No warmth or redness. (blood orders entered prior to being fully eval) walking well, ok without pain meds per pt sheldon wrap done, Xray unremarkable clear for d/c home, pt and family bedsite agreeable to plan. - Lab Interpretations I have reviewed the lab results: Yes - RAD Interpretation Radiology Orders: 02/24/18 21:24 ANKLE RIGHT 3 VIEWS ROUTINE [RAD] Stat 02/24/18 21:25 FOOT RIGHT 3 VIEWS ROUTINE [RAD] Stat 02/24/18 21:26 DUPLEX LOWER EXTRM VEIN RIGHT [US] Stat - Medication Orders Current Medication Orders: Acetaminophen (Tylenol 325mg Tab) 650 mg PO Q6H PRN PRN Reason: Fever >100.4 F - Scribe Statement The provider has reviewed the documentation as recorded by the Scribe Tracy Kapoor Provider Scribe Attestation: All medical record entries made by the Scribe were at my direction and personally dictated by me. I have reviewed the chart and agree that the record accurately reflects my personal performance of the history, physical exam, medical decision making, and the department course for this patient. I have also personally directed, reviewed, and agree with the discharge instructions and disposition. Disposition/Present on Arrival - Present on Arrival Any Indicators Present on Arrival: No History of DVT/PE: No History of Uncontrolled Diabetes: No Urinary Catheter: No History of Decub. Ulcer: No History Surgical Site Infection Following: None - Disposition Have Diagnosis and Disposition been Completed?: Yes Diagnosis: Ankle pain, right Disposition: HOME/ ROUTINE Disposition Time: 22:39 Condition: GOOD Discharge Instructions (ExitCare): Ankle Sprain, How to Use an Elastic Bandage Additional Instructions: RETURN TO ED IF WORSENING PAIN OR ANY OTHER ISSUES HUGO MARQUES, thank you for letting us take care of you today. Your provider was Mitchell Aguilar and you were treated for ANKLE PAIN. The emergency medical care you received today was directed at your acute symptoms. If you were prescribed any medication, please fill it and take as directed. It may take several days for your symptoms to resolve. Return to the Emergency Department if your symptoms worsen, do not improve, or if you have any other problems. Please contact your doctor or call one of the physicians/clinics you have been referred to that are listed on the Patient Visit Information form that is included in your discharge packet. Bring any paperwork you were given at discharge with you along with any medications you are taking to your follow up visit. Our treatment cannot replace ongoing medical care by a primary care provider outside of the emergency department. Thank you for allowing the [facility] team to be part of your care today. If you had an X-Ray or CT scan: A Radiologist will review the ED reading if any change in treatment is needed we will contact you. If you had a blood, urine, or wound culture: It will take several days for the results, if any change in treatment is needed we will contact you. If you had an STI test: It will take 48 hours for the results. Please call after 1 week if you have not heard back. Referrals: Gela Marques MD [Medical Doctor] - Follow up with primary Dwayne Iqbal DO [Staff Provider] - Follow up with primary Forms: [email or web address] (Portuguese)
--- NOTE | 2018-02-25 09:42 | RAD ---
Date of service: 02/24/2018 PROCEDURE: Right Foot Radiographs. HISTORY: swelling, pain COMPARISON: None. FINDINGS: BONES: Normal. No fracture. JOINTS: Normal. SOFT TISSUES: Normal. OTHER FINDINGS: The report concurs with the preliminary [facility] report IMPRESSION: No acute findings
--- NOTE | 2018-02-25 09:43 | RAD ---
Date of service: 02/24/2018 PROCEDURE: Right Ankle Radiographs. HISTORY: R ankle / foot pain COMPARISON: None available. FINDINGS: BONES: Normal. No fracture. JOINTS: Normal. No osteoarthritis. Ankle mortise maintained. Talar dome intact SOFT TISSUES: Normal. OTHER FINDINGS: None. IMPRESSION: Normal right ankle radiographs.
== END 2018-02-24 22:50 | disposition home or self-care (01) ==
LOC: ED 21:13
DX: M25.571 Pain in right ankle and joints of right foot (principal); I25.10 Atherosclerotic heart disease of native coronary artery without angina pectoris; I10 Essential (primary) hypertension; E11.9 Type 2 diabetes mellitus without complications; Z79.02 Long term (current) use of antithrombotics/antiplatelets; Z95.5 Presence of coronary angioplasty implant and graft

== ENCOUNTER 2018-03-07 16:49 | Outpatient (CLI) | payer MEDICARE, OTHER | END 2018-03-07 16:50 | disposition home or self-care (01) | LOC: OPLAB 16:49 ==

== ENCOUNTER 2018-03-14 00:09 | Observation (INO) | payer MEDICARE, OTHER ==
[2018-03-14] MEDS ORDERED: Morphine 2 mg/ml ISec IVP STA ×2 (00:24→02:27)
--- NOTE | 2018-03-14 00:24 | ED PDOC ---
Arrival/HPI - General Chief Complaint: Abdominal Pain Time Seen by Provider: 03/14/18 00:17 Historian: Patient - History of Present Illness Narrative History of Present Illness (Text): 03/14/18 00:23 Jakub Marques is a 78 year old male, whose past medical history includes stage IV mantle cell lymphoma, lung cancer s/p wedge resection, hypoglobulinemia, CAD s/p cardiac stent placement, diabetes, hypertension, COPD, and perforated sigmoid diverticulitis s/p Milli procedure, colostomy reversal, who presents to the ED accompanied by complaining of abdominal pain. Patient states he has been experiencing right lower quadrant pain since yesterday afternoon. Patient denies any fever, chills, chest pain, shortness of breath, nausea, vomiting, diarrhea, urinary symptoms, back pain, neck pain, headache, dizziness, or any other complaints. Symptom Onset: Gradual Symptom Course: Unchanged Activities at Onset: Light Context: Home Past Medical History - Provider Review Nursing Documentation Reviewed: Yes - Past History Past History: Unable to Obtain - Infectious Disease Hx of Infectious Diseases: None - Tetanus Immunization Tetanus Immunization: Unknown - Cardiac Hx Cardiac Disorders: Yes (CAD, S/P 4 cardiac stents AND 2 STENTS ON 01/08/2018, [place]) Hx Hypertension: Yes - Pulmonary Hx Respiratory Disorders: Yes Hx Chronic Obstructive Pulmonary Disease (COPD): Yes Hx Pneumonia: Yes Other/Comment: lung ca with lung resction - Neurological Hx Neurological Disorder: Yes Hx Transient Ischemic Attacks (TIA): Yes - HEENT Hx HEENT Disorder: Yes Hx Cataracts: ([facility] b[facility]) - Renal Hx Renal Disorder: No - Endocrine/Metabolic Hx Diabetes Mellitus Type 2: Yes - Hematological/Oncological Hx Blood Disorders: Yes Hx Anemia: Yes (blood transfusions) Hx Cancer: Yes (mantle cell lymphoma dx about 7 yrs ago) Hx Chemotherapy: Yes Other/Comment: neutropenia, hypogammaglobunemia, sepsis - Integumentary Hx Dermatological Disorder: No - Musculoskeletal/Rheumatological Hx Falls: No - Gastrointestinal Hx Gastrointestinal Disorders: No (DIVERTICULITIS,SIGMOIDECTOMY,COLOSTOMY REVERSAL) - Genitourinary/Gynecological Hx Genitourinary Disorders: Yes (LEFT NEPHROSTOMY) Hx Prostate Problems: Yes (bph) - Psychiatric Hx Psychophysiologic Disorder: No Hx Substance Use: No - Past Surgical History Past Surgical History: Unable to Obtain - Surgical History Hx Cardiac Catheterization: Yes (sents x4) Hx Musculoskeletal Surgery: Yes Hx Open Heart Surgery: Yes Other/Comment: lung wedge resection,perforated sigmoid diverticulosis sp knutson procedure.colostomy reversal.left nephrostomy.02-06-2018 sp abscess drainage mariza sacral space - Anesthesia Hx Anesthesia: Yes Hx Anesthesia Reactions: No Hx Malignant Hyperthermia: No - Suicidal Assessment Feels Threatened In Home Enviroment: No Family/Social History - Physician Review Nursing Documentation Reviewed: Yes Family/Social History: Unknown Family HX Smoking Status: Never Smoked Hx Alcohol Use: No Hx Substance Use: No Hx Substance Use Treatment: No Allergies/Home Meds Allergies/Adverse Reactions: Allergies azithromycin Allergy (Severe, Verified 03/14/18 00:22) ANGIOEDEMA erythromycin base Allergy (Severe, Verified 03/14/18 00:22) ANGIOEDEMA Penicillins Allergy (Severe, Verified 03/14/18 00:22) ANAPHYLAXIS cephalexin monohydrate [From Keflex] Allergy (Intermediate, Verified 03/14/18 00:22) RASH gabapentin Allergy (Intermediate, Verified 03/14/18 00:22) RASH pregabalin Allergy (Intermediate, Verified 03/14/18 00:22) RASH Sulfa (Sulfonamide Antibiotics) Allergy (Intermediate, Verified 03/14/18 00:22) RASH nitro paste Allergy (Intermediate, Uncoded 03/14/18 00:22) DIZZINESS/HYPOTENSION CAUSE HYPOTENSION Imbrovica Allergy (Uncoded 03/14/18 00:22) FEVER Home Medications: Home Meds Medication Instructions Recorded Confirmed RX: Ranolazine [Ranexa] 500 mg PO BID 06/03/16 01/31/18 RX: Ca/D3/Mag#11/Zinc/[employer] Safety Professor/Andrés/Bor 1 tab PO DAILY 11/30/17 01/31/18 [Caltrate 600+D Plus Tablet] RX: Magnesium Oxide [Mag-Ox] 400 mg PO DAILY 11/30/17 01/31/18 RX: Silodosin [Rapaflo] 8 mg PO QPM 11/30/17 01/31/18 RX: Sasser-3/Dha/Epa/Fish Oil [Fish 1 cap PO DAILY 12/04/17 01/31/[address] 500 mg Softgel] RX: metFORMIN [glucOPHAGE] 500 mg PO BID 12/30/17 01/31/18 Review of Systems - Physician Review All systems were reviewed & negative as marked: Yes - Review of Systems Constitutional: Normal. absent: Fevers Eyes: Normal ENT: Normal Respiratory: Normal. absent: SOB, Cough Cardiovascular: Normal. absent: Chest Pain Gastrointestinal: Abdominal Pain. absent: Diarrhea, Vomiting Genitourinary Male: Normal. absent: Dysuria, Frequency, Hematuria, Urinary Output Changes Musculoskeletal: Normal. absent: Back Pain, Neck Pain Skin: Normal. absent: Rash Neurological: Normal. absent: Headache, Dizziness Endocrine: Normal Hemo/Lymphatic: Normal Psychiatric: Normal Physical Exam Vital Signs Reviewed: Yes Temperature: Afebrile Blood Pressure: Normal Pulse: Regular Respiratory Rate: Normal Appearance: Positive for: Well-Appearing, Non-Toxic, Comfortable Pain Distress: None Mental Status: Positive for: Alert and Oriented X 3 - Systems Exam Head: Present: Atraumatic, Normocephalic Pupils: Present: PERRL Extroacular Muscles: Present: EOMI Conjunctiva: Present: Normal Mouth: Present: Moist Mucous Membranes Neck: Present: Normal Range of Motion Respiratory/Chest: Present: Clear to Auscultation, Good Air Exchange. No: Respiratory Distress, Accessory Muscle Use Cardiovascular: Present: Regular Rate and Rhythm, Normal S1, S2. No: Murmurs Abdomen: Present: Tenderness (RLQ tenderness). No: Distention, Peritoneal Signs Back: Present: Normal Inspection Upper Extremity: Present: Normal Inspection. No: Cyanosis, Edema Lower Extremity: Present: Normal Inspection. No: Edema Neurological: Present: GCS=15, CN II-XII Intact, Speech Normal Skin: Present: Warm, Dry, Normal Color. No: Rashes Psychiatric: Present: Alert, Oriented x 3, Normal Insight, Normal Concentration Medical Decision Making ED Course and Treatment: 03/14/18 00:23 Impression: 78 year old male complaining of RLQ abdominal pain. Plan: -- CT Abdomen and Pelvis with IV contrast -- Labs, lipase -- Urinalysis -- IV fluids -- Zofran -- Morphine -- Reassess and disposition Progress Notes: 03/14/18 03:05 CT Abdomen and Pelvis: Minimal right pleural effusion. Right pleural thickening. Passive atelectatic airspace disease of the right lower lobe. Small sliding hiatal hernia, unchanged. Retroperitoneal soft tissue thickening/enlarged lymph nodes, unchanged. Recurrent left presacral fluid collection/phlegmon formation with prominent surrounding soft tissue thickening. It measures a 3.7x2.2 cm on the current exam. Mild bilateral hydronephrosis, unchanged. Constipation, increased. Surgical changes of the sigmoid. Left inguinal hernia containing a nonincarcerated part of the bladder. Unchanged. Mild diffuse thickening of the bladder, unchanged. 1.5 cm left renal simple cyst. The liver is of uniform attenuation without mass or defect. There is no intra or extrahepatic biliary ductal dilatation. The spleen is normal. The gallbladder is within normal limits. The pancreas is of normal contour and attenuation characteristics. There is no evidence of adrenal mass. Both kidneys demonstrate prompt and equal nephrograms. The kidneys are normal in size, shape and configuration. There is no evidence of renal or ureteral mass. No renal or ureteral calculi are identified. There is no hydroureter or hydronephrosis. No evidence for appendicitis. There is no bowel wall thickening. No evidence for small or large bowel obstruction. There is no evidence of intrinsic or extrinsic bladder mass. Images of the lung bases show no evidence of pleural or parenchymal mass. There are no pleural effusions. The bony structures are free of lytic or blastic lesions. IMPRESSION: Minimal right pleural effusion. Right pleural thickening. Passive atelectatic airspace disease of the right lower lobe. Small sliding hiatal hernia, unchanged. Retroperitoneal soft tissue thickening/enlarged lymph nodes, unchanged. Recurrent left presacral fluid collection/phlegmon formation with prominent surrounding soft tissue thickening. It measures a 3.7x2.2 cm on the current exam. Mild bilateral hydronephrosis, unchanged. Constipation, increased. Surgical changes of the sigmoid. Left inguinal hernia containing a nonincarcerated part of the bladder. Unchanged. Mild diffuse thickening of the bladder, unchanged. 1.5 cm left renal simple cyst. Electronically signed on Mar 14, 2018 3:00:08 AM EST by: Bisi Villarreal M.D., Certified by ABR, MSK, Neuroradiology 03/14/18 03:[address] Myers, oncologist, who is aware and agrees with plan. Accepts pt in to his service. [facility] go to [facility] observation for abdominal pain. Requests Dr. Casiano, Dr. Morales, Dr. Callahan, and Dr. Mccall on consult. 03/14/18 04:22 Case discussed with president educational institution information systems manager, who is aware and will evaluate the pt. - Scribe Statement The provider has reviewed the documentation as recorded by the Tl Balderas Provider Scribe Attestation: All medical record entries made by the Scribe were at my direction and personally dictated by me. I have reviewed the chart and agree that the record accurately reflects my personal performance of the history, physical exam, medical decision making, and the department course for this patient. I have also personally directed, reviewed, and agree with the discharge instructions and disposition. Disposition/Present on Arrival - Present on Arrival Any Indicators Present on Arrival: No History of DVT/PE: No History of Uncontrolled Diabetes: No Urinary Catheter: No History of Decub. Ulcer: No History Surgical Site Infection Following: None - Disposition Have Diagnosis and Disposition been Completed?: Yes Diagnosis: Abdominal pain Disposition: HOSPITALIZED Disposition Time: 04:13 Patient Problems: Current Active Problems Problem Status Onset Abdominal pain Acute Condition: STABLE
[2018-03-14] MEDS: Sodium Chloride 0.9% 1,000 ML IV SCH ×2 (00:39→13:57)
[2018-03-14 01:19] LABS: HEMOGLOBIN 10.7 g/dL (14.0-18.0); MEAN CELL VOLUME 87.8 fl (80.0-105.0); MEAN CORPUSCULAR HEMOGLOBIN 28.9 pg (25.0-35.0); MEAN CORPUSCULAR HGB CONC 32.9 g/dl (31.0-37.0); MEAN PLATELET VOLUME 9.4 fl (7.0-11.0); RBC 3.7 10^6/uL (3.5-6.1); WHITE BLOOD COUNT 7.4 10^3/uL (4.5-11.0)
[2018-03-14 01:46] LABS: ALB/GLOB RATIO 1.2 (1.1-1.8); ALBUMIN 3.8 g/dL (3.0-4.8); ALT/SGPT 37 U/L (7-56); AST/SGOT 27 U/L (17-59); BLOOD UREA NITROGEN 17 mg/dL (7-21); CALCIUM 9.3 mg/dL (8.4-10.5); GFR NON-AFRICAN AMERICAN > 60; LIPASE 27 U/L (23-300)
[2018-03-14] MEDS ORDERED: Iodixanol 320 MG/ML 100 ML BOTTLE IV ONE (01:51)
[2018-03-14 02:58] LABS: PH,URINE 6.5 (4.7-8.0); URINE BILIRUBIN NEGATIVE (NEGATIVE); URINE BLOOD NEGATIVE (NEGATIVE); URINE GLUCOSE (UA) NEGATIVE (NEGATIVE); URINE LEUKOCYTE ESTERASE NEGATIVE Leu/uL (NEGATIVE); URINE PROTEIN NEGATIVE mg/dL (<30 mg/dL); URINE UROBILINOGEN 0.2 E.U./dL (<1 E.U./dL)
[2018-03-14 03:07] LABS: URINE APPEARANCE CLEAR (CLEAR); URINE COLOR YELLOW (YELLOW)
[2018-03-14] MEDS ORDERED: Sodium Chloride 0.9% 1,000 ML IV STA (04:14)
[2018-03-14] MEDS ORDERED: MEROPENEM 500 MG in NS 500 MG/50 ML BAG IVPB SCH (04:15)
--- NOTE | 2018-03-14 04:46 | CP.PCM.CON ---
<Anthony Wills - Last Filed: 03/14/18 05:00> History of Present Illness - History of Present Illness History of Present Illness: General Surgery Consult for Dr. Pabon This is a 77 year old male with a PMH of Stage IV Mantle cell lymphoma, lung cancer (s/p wedge resection), hypoglobulinemia, CAD (s/p PCI), DM2, HTN, COPD, and perforated sigmoid diverticulitis (s/p Milli procedure and reversal) who presented to [facility] ED due to RLQ pain that began yesterday afternoon around 5pm and has since resolved after one dose of morphine. He denies any fevers or chills at home, he is tolerating diet, having normal non bloody bowel movements without any hematuria or dysuria. Pt had a CT scan in the ED significant for constipation, a presacral 3.7x2.2cm collection/phlegmon, left bladder containing inguinal hernia, as well as post surgical changes. Denies fevers chills chest pain or SOB. PMHx: Stage IV mantle cell lymphoma (quiescence), lung cancer s/p wedge resection, hypoglobulinemia, CAD s/p stent placement, DM2, HTN, COPD, and perforated sigmoid diverticulitis s/p Milli procedure PSHx: Rob procedure, Colostomy reversal, and lung wedge resection Family History: Non-Contributory Social History: Denies any tobacco, alcohol or illicit drug abuse Allergies: Zithromax, Keflex and PCN Review of Systems - Constitutional Constitutional: absent: Chills, Fever, Weakness - EENT Eyes: absent: Blurred Vision, Change in Vision Ears: Decreased Hearing - Cardiovascular Cardiovascular: absent: Chest Pain, Dyspnea - Respiratory Respiratory: absent: Cough, Dyspnea - Gastrointestinal Gastrointestinal: Constipation. absent: Abdominal Pain (Resolved), Bloating, Diarrhea, Hematochezia, Loose Stools, Nausea, Vomiting - Genitourinary Genitourinary: absent: Change in Urinary Stream, Dysuria Past Patient History - Infectious Disease Hx of Infectious Diseases: None - Tetanus Immunizations Tetanus Immunization: Unknown - Past Medical History & Family History Past Medical History?: Yes - Past Social History Smoking Status: Never Smoked - CARDIAC Hx Cardiac Disorders: Yes (CAD, S/P 4 cardiac stents AND 2 STENTS ON 01/08/2018, [place]) Hx Hypertension: Yes - PULMONARY Hx Respiratory Disorders: Yes Hx Chronic Obstructive Pulmonary Disease (COPD): Yes Hx Pneumonia: Yes Other/Comment: lung ca with lung resction - NEUROLOGICAL Hx Neurological Disorder: Yes Hx Transient Ischemic Attacks (TIA): Yes - HEENT Hx HEENT Problems: Yes Hx Cataracts: (h0h b/lhearing aid) - RENAL Hx Chronic Kidney Disease: No - ENDOCRINE/METABOLIC Hx Diabetes Mellitus Type 2: Yes - HEMATOLOGICAL/ONCOLOGICAL Hx Blood Disorders: Yes Hx Anemia: Yes (blood transfusions) Hx Cancer: Yes (mantle cell lymphoma dx about 7 yrs ago) Hx Chemotherapy: Yes Other/Comment: neutropenia, hypogammaglobunemia, sepsis - INTEGUMENTARY Hx Dermatological Problems: No - MUSCULOSKELETAL/RHEUMATOLOGICAL Hx Falls: No - GASTROINTESTINAL Hx Gastrointestinal Disorders: No (DIVERTICULITIS,SIGMOIDECTOMY,COLOSTOMY REVERSAL) - GENITOURINARY/GYNECOLOGICAL Hx Genitourinary Disorders: Yes (LEFT NEPHROSTOMY) Hx Prostate Problems: Yes (bph) - PSYCHIATRIC Hx Psychophysiologic Disorder: No Hx Substance Use: No - SURGICAL HISTORY Hx Cardiac Catheterization: Yes (sents x4) Hx Musculoskeletal Surgery: Yes Hx Open Heart Surgery: Yes Other/Comment: lung wedge resection,perforated sigmoid diverticulosis sp rob procedure.colostomy reversal.left nephrostomy.02-06-2018 sp abscess drainage mariza sacral space - ANESTHESIA Hx Anesthesia: Yes Hx Anesthesia Reactions: No Hx Malignant Hyperthermia: No Meds Allergies/Adverse Reactions: Allergies Allergy/AdvReac Type Severity Reaction Status Date / Time azithromycin Allergy Severe ANGIOEDEMA Verified 03/14/18 00:22 erythromycin base Allergy Severe ANGIOEDEMA Verified 03/14/18 00:22 Penicillins Allergy Severe ANAPHYLAXIS Verified 03/14/18 00:22 cephalexin monohydrate Allergy Intermediate RASH Verified 03/14/18 00:22 [From Keflex] gabapentin Allergy Intermediate RASH Verified 03/14/18 00:22 pregabalin Allergy Intermediate RASH Verified 03/14/18 00:22 Sulfa (Sulfonamide Allergy Intermediate RASH Verified 03/14/18 00:22 Antibiotics) nitro paste Allergy Intermediate DIZZINESS/H Uncoded 03/14/18 00:22 YPOTENSION Imbrovica Allergy FEVER Uncoded 03/14/18 00:22 - Medications Medications: Current Medications Sodium Chloride (Sodium Chloride 0.9%) 1,000 mls @ 100 mls/hr IV .Q10H [facility] Last Admin: 03/14/18 00:39 Dose: 100 mls/hr Sodium Chloride (Sodium Chloride 0.9%) 1,000 mls @ 100 mls/hr IV .Q10H STA Stop: 03/14/18 14:13 Meropenem (Merrem Iv 1 Gm Premix) 1 gm in 50 mls @ 12.5 mls/hr IVPB Q8 [facility]; Protocol Stop: 03/14/18 09:59 Physical Exam - Constitutional Appears: Non-toxic, No Acute Distress - Head Exam Head Exam: ATRAUMATIC, NORMOCEPHALIC - Eye Exam Eye Exam: EOMI - ENT Exam ENT Exam: Mucous Membranes Moist - Respiratory Exam Respiratory Exam: NORMAL BREATHING PATTERN - Cardiovascular Exam Cardiovascular Exam: +S1, +S2 - GI/Abdominal Exam GI & Abdominal Exam: Soft. absent: Distended, Firm, Guarding, Hernia, Rebound, Rigid, Tenderness - Neurological Exam Neurological exam: Alert, Oriented x3 - Psychiatric Exam Psychiatric exam: Normal Affect, Normal Mood - Skin Skin Exam: Dry, Intact Results - Vital Signs Recent Vital Signs: Last Vital Signs Temp 97.4 F L 03/14/18 03:11 Pulse 65 03/14/18 03:11 Resp 20 03/14/18 03:11 BP 152/78 H 03/14/18 03:11 Pulse Ox 98 03/14/18 03:11 - Labs Result Diagrams: 03/14/18 00:49 03/14/18 00:49 Labs: Laboratory Results - last 24 hr 03/14/18 03/14/18 03/14/18 00:49 00:49 02:27 WBC 7.4 D RBC 3.70 Hgb 10.7 L Hct 32.5 L MCV 87.8 MCH 28.9 MCHC 32.9 RDW 16.0 H Plt Count 203 MPV 9.4 Sodium 138 Potassium 4.6 Chloride 106 Carbon Dioxide 24 Anion Gap 12 BUN 17 Creatinine 1.0 Est GFR ( Amer) > 60 Est GFR (Non-Af Amer) > 60 Random Glucose 112 H Calcium 9.3 Total Bilirubin 0.6 AST 27 ALT 37 Alkaline Phosphatase 125 Total Protein 6.9 Albumin 3.8 Globulin 3.2 Albumin/Globulin Ratio 1.2 Lipase 27 Urine Color Yellow Urine Appearance Clear Urine pH 6.5 Ur Specific Chalmers 1.025 Urine Protein Negative Urine Glucose (UA) Negative Urine Ketones Negative Urine Blood Negative Urine Nitrate Negative Urine Bilirubin Negative Urine Urobilinogen 0.2 Ur Leukocyte Esterase Negative - Imaging and Cardiology CT scan - abdomen Status: Image reviewed by me, Report reviewed by me CT scan - pelvis Status: Image reviewed by me, Report reviewed by me Assessment & Plan - Assessment and Plan (Free Text) Assessment: 78M with post surgical abdomen presenting with constipation and pelvic collection Monitor abdominal exam Diet per GI F/U Labs Further Recs Per Dr. Cm Wills PGY3 <Mark Pabon - Last Filed: 03/14/18 17:14> Meds - Medications Medications: Current Medications Sodium Chloride (Sodium Chloride 0.9%) 1,000 mls @ 100 mls/hr IV .Q10H [facility] Last Admin: 03/14/18 13:57 Dose: 100 mls/hr Meropenem (Merrem Iv 1 Gm Premix) 1 gm in 50 mls @ 100 mls/hr IVPB Q8 [facility]; Protocol Stop: 03/23/18 14:01 Last Admin: 03/14/18 15:14 Dose: 100 mls/hr Immune Globulin 30 gm/ (Miscellaneous) 300 mls @ 50 mls/hr IV ONCE ONE Stop: 03/14/18 20:59 Polyethylene Glycol (Miralax) 17 gm PO TID ALEX Last Admin: 03/14/18 15:14 Dose: 17 gm Results - Vital Signs Recent Vital Signs: Last Vital Signs Temp 97.3 F L 03/14/18 08:25 Pulse 70 03/14/18 08:25 Resp 20 03/14/18 08:25 BP 158/81 H 03/14/18 08:25 Pulse Ox 93 L 03/14/18 08:25 - Labs Result Diagrams: 03/14/18 00:49 03/14/18 00:49 Labs: Laboratory Results - last 24 hr 03/14/18 03/14/18 03/14/18 00:49 00:49 02:27 WBC 7.4 D RBC 3.70 Hgb 10.7 L Hct 32.5 L MCV 87.8 MCH 28.9 MCHC 32.9 RDW 16.0 H Plt Count 203 MPV 9.4 Sodium 138 Potassium 4.6 Chloride 106 Carbon Dioxide 24 Anion Gap 12 BUN 17 Creatinine 1.0 Est GFR ( Amer) > 60 Est GFR (Non-Af Amer) > 60 POC Glucose (mg/dL) Random Glucose 112 H Calcium 9.3 Total Bilirubin 0.6 AST 27 ALT 37 Alkaline Phosphatase 125 Total Protein 6.9 Albumin 3.8 Globulin 3.2 Albumin/Globulin Ratio 1.2 Lipase 27 Urine Color Yellow Urine Appearance Clear Urine pH 6.5 Ur Specific Chalmers 1.025 Urine Protein Negative Urine Glucose (UA) Negative Urine Ketones Negative Urine Blood Negative Urine Nitrate Negative Urine Bilirubin Negative Urine Urobilinogen 0.2 Ur Leukocyte Esterase Negative 03/14/18 03/14/18 03/14/18 07:43 11:40 16:17 WBC RBC Hgb Hct MCV MCH MCHC RDW Plt Count MPV Sodium Potassium Chloride Carbon Dioxide Anion Gap BUN Creatinine Est GFR ( Amer) Est GFR (Non-Af Amer) POC Glucose (mg/dL) 126 H 119 H 157 H Random Glucose Calcium Total Bilirubin AST ALT Alkaline Phosphatase Total Protein Albumin Globulin Albumin/Globulin Ratio Lipase Urine Color Urine Appearance Urine pH Ur Specific Chalmers Urine Protein Urine Glucose (UA) Urine Ketones Urine Blood Urine Nitrate Urine Bilirubin Urine Urobilinogen Ur Leukocyte Esterase Assessment & Plan - Assessment and Plan (Free Text) Assessment: Patient was seen, evaluated and examined by me at the bedside. I agree with assessment and plan as stated in the resident's note.Patient pelvic collection represents remnant from previously drained collection and does not appear to be active given the fact the patient is afebrile and has normal white count. This was discussed with interventional radiology. Patient will be treated with laxatives as per GI service. We will closely monitor with physical exam of abdomen for any changes.
[2018-03-14] MEDS ORDERED: Meropenem IV 1 gm in NS 1 GM/50 ML BAG IVPB SCH (06:00)
[2018-03-14 06:47] VITALS: RESP 20; BMI 24.6
--- NOTE | 2018-03-14 08:06 | CP.PCM.CON ---
<Maria Antonia Rosales - Last Filed: 03/14/18 14:45> Meds Allergies/Adverse Reactions: Allergies Allergy/AdvReac Type Severity Reaction Status Date / Time azithromycin Allergy Severe ANGIOEDEMA Verified 03/14/18 00:22 erythromycin base Allergy Severe ANGIOEDEMA Verified 03/14/18 00:22 Penicillins Allergy Severe ANAPHYLAXIS Verified 03/14/18 00:22 cephalexin monohydrate Allergy Intermediate RASH Verified 03/14/18 00:22 [From Keflex] gabapentin Allergy Intermediate RASH Verified 03/14/18 00:22 pregabalin Allergy Intermediate RASH Verified 03/14/18 00:22 Sulfa (Sulfonamide Allergy Intermediate RASH Verified 03/14/18 00:22 Antibiotics) nitro paste Allergy Intermediate DIZZINESS/H Uncoded 03/14/18 00:22 YPOTENSION Imbrovica Allergy FEVER Uncoded 03/14/18 00:22 - Medications Medications: Current Medications Sodium Chloride (Sodium Chloride 0.9%) 1,000 mls @ 100 mls/hr IV .Q10H [facility] Last Admin: 03/14/18 13:57 Dose: 100 mls/hr Meropenem (Merrem Iv 1 Gm Premix) 1 gm in 50 mls @ 100 mls/hr IVPB Q8 [facility]; Protocol Stop: 03/23/18 14:01 Immune Globulin 30 gm/ (Miscellaneous) 300 mls @ 50 mls/hr IV ONCE ONE Stop: 03/14/18 20:59 Polyethylene Glycol (Miralax) 17 gm PO TID ALEX Results - Vital Signs Recent Vital Signs: Last Vital Signs Temp 97.3 F L 03/14/18 08:25 Pulse 70 03/14/18 08:25 Resp 20 03/14/18 08:25 BP 158/81 H 03/14/18 08:25 Pulse Ox 93 L 03/14/18 08:25 - Labs Result Diagrams: 03/14/18 00:49 03/14/18 00:49 Labs: Laboratory Results - last 24 hr 03/14/18 03/14/18 03/14/18 00:49 00:49 02:27 WBC 7.4 D RBC 3.70 Hgb 10.7 L Hct 32.5 L MCV 87.8 MCH 28.9 MCHC 32.9 RDW 16.0 H Plt Count 203 MPV 9.4 Sodium 138 Potassium 4.6 Chloride 106 Carbon Dioxide 24 Anion Gap 12 BUN 17 Creatinine 1.0 Est GFR ( Amer) > 60 Est GFR (Non-Af Amer) > 60 POC Glucose (mg/dL) Random Glucose 112 H Calcium 9.3 Total Bilirubin 0.6 AST 27 ALT 37 Alkaline Phosphatase 125 Total Protein 6.9 Albumin 3.8 Globulin 3.2 Albumin/Globulin Ratio 1.2 Lipase 27 Urine Color Yellow Urine Appearance Clear Urine pH 6.5 Ur Specific Rentz 1.025 Urine Protein Negative Urine Glucose (UA) Negative Urine Ketones Negative Urine Blood Negative Urine Nitrate Negative Urine Bilirubin Negative Urine Urobilinogen 0.2 Ur Leukocyte Esterase Negative 03/14/18 03/14/18 07:43 11:40 WBC RBC Hgb Hct MCV MCH MCHC RDW Plt Count MPV Sodium Potassium Chloride Carbon Dioxide Anion Gap BUN Creatinine Est GFR ( Amer) Est GFR (Non-Af Amer) POC Glucose (mg/dL) 126 H 119 H Random Glucose Calcium Total Bilirubin AST ALT Alkaline Phosphatase Total Protein Albumin Globulin Albumin/Globulin Ratio Lipase Urine Color Urine Appearance Urine pH Ur Specific Rentz Urine Protein Urine Glucose (UA) Urine Ketones Urine Blood Urine Nitrate Urine Bilirubin Urine Urobilinogen Ur Leukocyte Esterase <Hilary Doe - Last Filed: 03/14/18 20:53> History of Present Illness - History of Present Illness History of Present Illness: PGY-[address] Callahan ID consult: abdominal pain/presacral fluid/phlegmon collection Mr Marques, 77 M, with PMH Stage IV Mantle cell lymphoma with recurrence on active chemotherapy, perisacral abscess s/p i&d and drainage, lung cancer (s/p wedge resection), hypoglobulinemia, CAD (s/p PCI), DM2, HTN, COPD, perforated sigmoid diverticulitis (s/p Milli procedure and reversal), per-sacral abscess with RECENT drain removal due to bleeding, RECENT L neprhostomy, C/O RLQ pain x 1day. The abdominal pain started at 3pm, sharp 8/10-10/10, constant, with no apparent triggers, associated with sensation of tenesmus. He had bowel movement, normal stool, but abdominal pain remained severe. Denies bloating, no f/c. (+) recent antibiotics. No animals. No recent travel ROS - Denies any fevers or chills at home, he is tolerating diet, having normal non bloody bowel movements without any hematuria or dysuria. Pt had a CT scan in the ED significant for constipation, a presacral 3.7x2.2cm collection/phlegmon, left bladder containing inguinal hernia, as well as post surgical changes. PMHx: TIA Stage IV mantle cell lymphoma, Dx 7 years, recurrence on active chemotherapy lung cancer s/p wedge resection, hypoglobulinemia CAD s/p stent x 6, most recent 01/2018, HTN COPD DM2 (A1C 7, Dec 2017) perforated sigmoid diverticulitis s/p Milli procedure Hx neutropenia, hypogammaglobunemia, sepsis per-sacral abscess with RECENT drain removal due to bleeding, BPH & mild b/l hydronephrosis s/p LEFT NEPHROSTOMY (02/06/18) Abscress @ perisacral space s/p I&D PSHx: Rob procedure, Colostomy reversal, and lung wedge resection LEFT NEPHROSTOMY Family History: Non-Contributory Social History: Never smoke. Denies alcohol or illicit drug abuse Allergies: Sulfa, Zithromax, erythromycin, penicillin, Keflex, gabapentin, pregabaln, nitro past, imbruvica In ED, VSS CBC: WBC 7.4, Hb 10.7. CMP nl. U/A neg CT: Minimal right pleural effusion. Right pleural thickening. Recurrent left presacral fluid collection/phlegmon (3.7x2.2 cm) formation with prominent surrounding soft tissue (+) Constipation, increased. Got blood culture. Given merem, morphine, NPO Past Patient History - Infectious Disease Hx of Infectious Diseases: None - Tetanus Immunizations Tetanus Immunization: Unknown - Past Medical History & Family History Past Medical History?: Yes - Past Social History Smoking Status: Never Smoked - CARDIAC Hx Cardiac Disorders: Yes Hx Hypertension: Yes - PULMONARY Hx Respiratory Disorders: Yes Hx Chronic Obstructive Pulmonary Disease (COPD): Yes - NEUROLOGICAL Hx Transient Ischemic Attacks (TIA): Yes - HEENT Hx Deafness: Yes - RENAL Hx Chronic Kidney Disease: No - ENDOCRINE/METABOLIC Hx Diabetes Mellitus Type 2: Yes - HEMATOLOGICAL/ONCOLOGICAL Hx Cancer: Yes Hx Chemotherapy: Yes - INTEGUMENTARY Hx Dermatological Problems: No - MUSCULOSKELETAL/RHEUMATOLOGICAL Hx Falls: Yes - GASTROINTESTINAL Hx Colostomy: Yes - GENITOURINARY/GYNECOLOGICAL Hx Genitourinary Disorders: Yes (LEFT NEPHROSTOMY) Hx Prostate Problems: Yes (bph) - PSYCHIATRIC Hx Psychophysiologic Disorder: No Hx Substance Use: No - SURGICAL HISTORY Hx Surgeries: Yes Hx Coronary Stent: Yes - ANESTHESIA Hx Anesthesia: Yes Hx Anesthesia Reactions: No Hx Malignant Hyperthermia: No Meds - Medications Medications: Current Medications Sodium Chloride (Sodium Chloride 0.9%) 1,000 mls @ 100 mls/hr IV .Q10H [facility] Last Admin: 03/14/18 00:39 Dose: 100 mls/hr Sodium Chloride (Sodium Chloride 0.9%) 1,000 mls @ 100 mls/hr IV .Q10H [facility] Stop: 03/14/18 14:13 Last Admin: 03/14/18 04:41 Dose: Not Given Meropenem (Merrem Iv 1 Gm Premix) 1 gm in 50 mls @ 12.5 mls/hr IVPB Q8 [facility]; Protocol Stop: 03/14/18 09:59 Last Admin: 03/14/18 05:30 Dose: 12.5 mls/hr Physical Exam - Constitutional Appears: No Acute Distress - Head Exam Head Exam: ATRAUMATIC, NORMAL INSPECTION, NORMOCEPHALIC - Eye Exam Eye Exam: EOMI, Normal appearance, PERRL. absent: Scleral icterus Pupil Exam: NORMAL ACCOMODATION - ENT Exam ENT Exam: Mucous Membranes Moist - Neck Exam Additional comments: supple - Respiratory Exam Respiratory Exam: Decreased Breath Sounds (b/l lung bases), Clear to Auscultation Bilateral, NORMAL BREATHING PATTERN. absent: Rales, Rhonchi, Wheezes - Cardiovascular Exam Cardiovascular Exam: REGULAR RHYTHM, +S1, +S2. absent: Systolic Murmur Additional comments: R port-a-cath intact, no erythema - GI/Abdominal Exam GI & Abdominal Exam: Hypoactive Bowel Sounds, Soft, Tenderness (LLQ). absent: Distended, Guarding, Rigid Additional comments: midline scar healed well - Back Exam Back exam: absent: CVA tenderness (L), CVA tenderness (R) - Neurological Exam Neurological exam: Alert, Oriented x3 - Psychiatric Exam Psychiatric exam: Normal Affect, Normal Mood - Skin Skin Exam: Dry, Warm Additional comments: L buttock scar healed well Results - Vital Signs Recent Vital Signs: Last Vital Signs Temp 97.6 F 03/14/18 05:30 Pulse 70 03/14/18 05:30 Resp 20 03/14/18 06:13 BP 147/76 03/14/18 05:30 Pulse Ox 96 03/14/18 05:30 - Labs Result Diagrams: 03/14/18 00:49 03/14/18 00:49 Labs: Laboratory Results - last 24 hr 03/14/18 03/14/18 03/14/18 00:49 00:49 02:27 WBC 7.4 D RBC 3.70 Hgb 10.7 L Hct 32.5 L MCV 87.8 MCH 28.9 MCHC 32.9 RDW 16.0 H Plt Count 203 MPV 9.4 Sodium 138 Potassium 4.6 Chloride 106 Carbon Dioxide 24 Anion Gap 12 BUN 17 Creatinine 1.0 Est GFR ( Amer) > 60 Est GFR (Non-Af Amer) > 60 POC Glucose (mg/dL) Random Glucose 112 H Calcium 9.3 Total Bilirubin 0.6 AST 27 ALT 37 Alkaline Phosphatase 125 Total Protein 6.9 Albumin 3.8 Globulin 3.2 Albumin/Globulin Ratio 1.2 Lipase 27 Urine Color Yellow Urine Appearance Clear Urine pH 6.5 Ur Specific Rentz 1.025 Urine Protein Negative Urine Glucose (UA) Negative Urine Ketones Negative Urine Blood Negative Urine Nitrate Negative Urine Bilirubin Negative Urine Urobilinogen 0.2 Ur Leukocyte Esterase Negative 03/14/18 07:43 WBC RBC Hgb Hct MCV MCH MCHC RDW Plt Count MPV Sodium Potassium Chloride Carbon Dioxide Anion Gap BUN Creatinine Est GFR ( Amer) Est GFR (Non-Af Amer) POC Glucose (mg/dL) 126 H Random Glucose Calcium Total Bilirubin AST ALT Alkaline Phosphatase Total Protein Albumin Globulin Albumin/Globulin Ratio Lipase Urine Color Urine Appearance Urine pH Ur Specific Rentz Urine Protein Urine Glucose (UA) Urine Ketones Urine Blood Urine Nitrate Urine Bilirubin Urine Urobilinogen Ur Leukocyte Esterase Assessment & Plan - Assessment and Plan (Free Text) Plan: 78M with post surgical abdomen presenting with constipation and pelvic collection A: Severe RLQ abdominal pain with No SIRS Pelvic collection likely resolving perisacral abscess Constipation Immunocompromise Allergy to Sulfa, Zithromax, erythromycin, penicillin, Keflex, imbruvica R port-a-cath P: Continue meropenem (day 1) follow on culture, labs, and clinical course s/r/d/w Dr Callahan
--- NOTE | 2018-03-14 08:28 | CT ---
Date of service: 03/14/2018 PROCEDURE: CT Abdomen and Pelvis with contrast HISTORY: RLQ abdominal pain COMPARISON: 02/06/2018 TECHNIQUE: Contrast dose: 100 cc of Visipaque Radiation dose: Total exam DLP = 391.81 mGy-cm. This CT exam was performed using one or more of the following dose reduction techniques: Automated exposure control, adjustment of the mA and/or kV according to patient size, and/or use of iterative reconstruction technique. FINDINGS: LOWER THORAX: Unremarkable. LIVER: Unremarkable. No gross lesion or ductal dilatation. GALLBLADDER AND BILE DUCTS: Unremarkable. PANCREAS: Unremarkable. No gross lesion or ductal dilatation. SPLEEN: Unremarkable. ADRENALS: Unremarkable. No mass. KIDNEYS AND URETERS: Unremarkable. No hydronephrosis. No solid mass. VASCULATURE: Unremarkable. No aortic aneurysm. Aortic calcification. BOWEL: Unremarkable. No obstruction. No gross mural thickening. There is a small residual fluid collection in the presacral space measuring 12 x 16 mm. The pigtail drainage catheter seen previously has been removed. APPENDIX: Normal appendix. PERITONEUM: Unremarkable. No free fluid. No free air. LYMPH NODES: Unremarkable. No enlarged lymph nodes. BLADDER: A portion of the bladder extends into a left inguinal hernia. This is unchanged. REPRODUCTIVE: Unremarkable. BONES: No acute fracture. OTHER FINDINGS: The report concurs with the preliminary [facility] report IMPRESSION: No acute intra-abdominal findings. Small residual presacral fluid collection on the left measuring 12 x 16 mm.
[2018-03-14] MEDS ORDERED: POLYETHYLENE GLYCOL 3350 17 GM/Dose PACKET PO SCH (11:00)
--- NOTE | 2018-03-14 14:19 | PN ---
DATE: 03/14/2018 TIME: 11:55 a.m. I reviewed the patient's CT scan and compared it to prior imaging. There is minimal inflammatory change on the left pelvis at the site of the previous drain. No new or enlarging fluid collection is seen. It does not need to be addressed on this admission. Je Horne MD
--- NOTE | 2018-03-14 14:25 | CP.PCM.APN ---
Subjective - Date & Time of Evaluation Date of Evaluation: 03/14/18 Time of Evaluation: 09:45 - Subjective Subjective: Patient seen and examined at bedside. States has abdominal pain, RLQ , denied nausea, vomiting, denied fever, chills, denied shortness of breath, palpitations. Review of Systems - Constitutional Constitutional: As Per HPI - EENT Eyes: As Per HPI Ears: As Per HPI Nose/Mouth/Throat: As Per HPI - Cardiovascular Cardiovascular: As Per HPI - Respiratory Respiratory: As Per HPI - Gastrointestinal Gastrointestinal: As Per HPI, Abdominal Pain, Constipation - Genitourinary Genitourinary: As Per HPI - Reproductive: Male Reproductive:Male: As Per HPI - Musculoskeletal Musculoskeletal: As Per HPI - Integumentary Integumentary: As Per HPI - Neurological Neurological: As Per HPI - Psychiatric Psychiatric: As Per HPI - Endocrine Endocrine: As Per HPI - Hematologic/Lymphatic Hematologic: As Per HPI Objective - Vital Signs/Intake and Output Vital Signs (last 24 hours): Temp Pulse Resp BP Pulse Ox 97.3 F L 70 20 158/81 H 93 L 03/14/18 08:25 03/14/18 08:25 03/14/18 08:25 03/14/18 08:25 03/14/18 08:25 - Medications Medications: Current Medications Sodium Chloride (Sodium Chloride 0.9%) 1,000 mls @ 100 mls/hr IV .Q10H [facility] Last Admin: 03/14/18 13:57 Dose: 100 mls/hr Meropenem (Merrem Iv 1 Gm Premix) 1 gm in 50 mls @ 100 mls/hr IVPB Q8 [facility]; Protocol Stop: 03/23/18 14:01 Polyethylene Glycol (Miralax) 17 gm PO TID [facility] - Labs Labs: 03/14/18 00:49 03/14/18 00:49 - Constitutional Appears: Well - Head Exam Head Exam: NORMOCEPHALIC - ENT Exam ENT Exam: Mucous Membranes Moist, Normal Exam - Neck Exam Neck Exam: Full ROM - Respiratory Exam Respiratory Exam: Clear to Ausculation Bilateral, NORMAL BREATHING PATTERN - Cardiovascular Exam Cardiovascular Exam: REGULAR RHYTHM - GI/Abdominal Exam GI & Abdominal Exam: Soft, Normal Bowel Sounds - Rectal Exam Rectal Exam: Deferred - Extremities Exam Extremities Exam: Full ROM, Normal Inspection - Back Exam Back Exam: NORMAL INSPECTION - Neurological Exam Neurological Exam: Alert, Awake, Oriented x3 - Psychiatric Exam Psychiatric exam: Normal Affect, Normal Mood - Skin Skin Exam: Dry, Intact, Normal Color, Warm Assessment and Plan - Assessment and Plan (Free Text) Assessment: Impressions Abdomen/Pelvis CT 03/14/18 00:23 IMPRESSION: No acute intra-abdominal findings. Small residual presacral fluid collection on the left measuring [address] read by GI and surgeon as retained stool. Laboratory Results WBC 7.4 10^3/uL (4.5-11.0) D 03/14/18 00:49 RBC 3.70 10^6/uL (3.5-6.1) 03/14/18 00:49 Hgb 10.7 g/dL (14.0-18.0) L 03/14/18 00:49 Hct 32.5 % (42.0-52.0) L 03/14/18 00:49 MCV 87.8 fl (80.0-105.0) 03/14/18 00:49 MCH 28.9 pg (25.0-35.0) 03/14/18 00:49 MCHC 32.9 g/dl (31.0-37.0) 03/14/18 00:49 RDW 16.0 % (11.5-14.5) H 03/14/18 00:49 Plt Count 203 10^3/uL (120.0-450.0) 03/14/18 00:49 MPV 9.4 fl (7.0-11.0) 03/14/18 00:49 Sodium 138 mmol/L (132-148) 03/14/18 00:49 Potassium 4.6 mmol/L (3.6-5.0) 03/14/18 00:49 Chloride 106 mmol/L (98-107) 03/14/18 00:49 Carbon Dioxide 24 mmol/L (21-33) 03/14/18 00:49 Anion Gap 12 (10-20) 03/14/18 00:49 BUN 17 mg/dL (7-21) 03/14/18 00:49 Creatinine 1.0 mg/dl (0.8-1.5) 03/14/18 00:49 Est GFR ( Amer) > 60 03/14/18 00:49 Est GFR (Non-Af Amer) > 60 03/14/18 00:49 POC Glucose (mg/dL) 119 mg/dL (65-110) H 03/14/18 11:40 Random Glucose 112 mg/dL (70-110) H 03/14/18 00:49 Calcium 9.3 mg/dL (8.4-10.5) 03/14/18 00:49 Total Bilirubin 0.6 mg/dL (0.2-1.3) 03/14/18 00:49 AST 27 U/L (17-59) 03/14/18 00:49 ALT 37 U/L (7-56) 03/14/18 00:49 Alkaline Phosphatase 125 U/L (38-126) 03/14/18 00:49 Total Protein 6.9 g/dL (5.8-8.3) 03/14/18 00:49 Albumin 3.8 g/dL (3.0-4.8) 03/14/18 00:49 Globulin 3.2 gm/dL 03/14/18 00:49 Albumin/Globulin Ratio 1.2 (1.1-1.8) 03/14/18 00:49 Lipase 27 U/L (23-300) 03/14/18 00:49 Urine Color Yellow (YELLOW) 03/14/18 02:27 Urine Appearance Clear (CLEAR) 03/14/18 02:27 Urine pH 6.5 (4.7-8.0) 03/14/18 02:27 Ur Specific [place] 1.025 (1.005-1.035) 03/14/18 02:27 Urine Protein Negative mg/dL (<30 mg/dL) 03/14/18 02:27 Urine Glucose (UA) Negative mg/dL (NEGATIVE) 03/14/18 02:27 Urine Ketones Negative mg/dL (NEGATIVE) 03/14/18 02:27 Urine Blood Negative (NEGATIVE) 03/14/18 02:27 Urine Nitrate Negative (NEGATIVE) 03/14/18 02:27 Urine Bilirubin Negative (NEGATIVE) 03/14/18 02:27 Urine Urobilinogen 0.2 E.U./dL (<1 E.U./dL) 03/14/18 02:27 Ur Leukocyte Esterase Negative Qasim/uL (NEGATIVE) 03/14/18 02:27 Assessment: 78 year old male, whose past medical history includes stage IV mantle cell lymphoma, lung cancer s/p wedge resection, hypoglobulinemia, CAD s/p cardiac stent placement, diabetes, hypertension, COPD, and perforated sigmoid div erticulitis s/p Milli procedure, colostomy reversal, who presents to the ED accompanied by complaining of abdominal pain. Patient states he has been experiencing right lower quadrant pain since yesterday afternoon, admitted for further workup. 1. RLQ Abdominal Pain -maybe secondary to constipation. Miralax 17 gm advised by PMD/ GI. Monitor for BMs Started on clear liquid diet as per GI. 2. Presacral fluid collection/Phlegmon found to be not significant per surgery, IR evaluated, no drainage needed. 3. ID consulted for abcess/phlegmon, Started on IV Merrem. awaiting further re cs. Will continue to monitor status and follow closely.
[2018-03-14] MEDS ORDERED: Immune Globulin 100 MG/ML 30 GM in Premixed IV 1 EA IV ONE (15:00)
[2018-03-14] MEDS: Meropenem IV 1 gm in NS 1 GM/50 ML BAG IVPB SCH (15:14)
[2018-03-14] MEDS: POLYETHYLENE GLYCOL 3350 17 GM/Dose PACKET PO SCH ×2 (15:14→17:32)
[2018-03-14] MEDS: Insulin Lispro (humaLOG) MEDIUM Coverage SC SCH (21:28)
[2018-03-14] MEDS ORDERED: DiphenhydrAMINE 50 mg/ml Inj IVP STA (22:50)
[2018-03-14] MEDS ORDERED: [UNRECOGNIZED DRUG - OTHER] PO SCH (23:00)
--- NOTE | 2018-03-15 00:12 | HP ---
DATE OF EXAM: 03/14/2018 LOCATION: The patient is in room 363, bed 1. HISTORY OF PRESENT ILLNESS: Mr. Marques was admitted to the emergency room with new onset of right lower quadrant abdominal pain, which started about 10 hours before admission to the emergency room. The patient is a 78-year-old male whose past medical history is significant for stage IV mantle cell lymphoma; history of lung cancer, status post wedge resection; history of hypogammaglobulinemia, on intermittent IV gamma globulin; coronary artery disease, status post cardiac stent placement; diabetes mellitus; hypertension; COPD; perforated sigmoid diverticulitis, status post Milli procedure followed by colostomy reversal; status post NC with right coronary artery stent, on aspirin and Plavix who now presents with chief complaints of abdominal pain over the last 10 hours specifically in the right lower quadrant. The patient denies any history of fevers, chills, chest pain, shortness of breath, nausea, vomiting, diarrhea, urinary complaints, back pain, neck pain, headaches, dizziness, or any other complaints. The patient has not had a bowel movement for about a day and a half. Symptom onset is gradual. Course has been unchanged. The patient has been unable to do anything because of the pain and is scared as he does not know what could be the course for that. REVIEW OF SYSTEMS: Twelve-point review of systems is done, all the review of systems were negative except what is mentioned in the HPI. FAMILY HISTORY: Noncontributory. ALLERGIES: THE PATIENT HAS MULTIPLE ALLERGIES TO AZITHROMYCIN, ERYTHROMYCIN, PENICILLIN, CEPHALEXIN, GABAPENTIN, LYRICA, SULFA, NITROGLYCERIN PASTE, AND IMBRUVICA. MEDICATIONS: The patient's medications at home were reviewed. He is on Ranexa 500 b.i.d., calcium, magnesium and vitamin D3, Caltrate 600 plus D plus one tablet daily, he is on mag oxide 400 mg daily, he is on Rapaflo 8 mg daily, he is on omega-3 fish oil capsules one capsule daily, and he is on metformin 500 b.i.d. The patient had been holding on his own until this pain started. PHYSICAL EXAMINATION: GENERAL: Reveals the patient to be awake, alert and oriented and in no acute distress. VITAL SIGNS: Stable as stated on the chart. HEENT: Head is normocephalic and atraumatic. Conjunctivae pale. Sclerae are anicteric. Pupils are equally reactive to light and accommodation. Examination of the oropharynx reveals no oropharyngeal lesions. Tongue is moist. No ulcerations are noted. NECK: Supple. There is no adenopathy. LUNGS: Reveal to be clear to percussion and auscultation without any adventitious sounds. CARDIOVASCULAR: Reveals PMI to be in the fifth intercostal space, inside the midclavicular line. S1 and S2 are normal. No gallop or murmurs heard. ABDOMEN: Soft and nontender. No rebound, rigidity, or guarding is noted. EXTREMITIES: There is no cyanosis, clubbing, or edema either of the upper or lower extremities. BACK: Reveals to be normal to palpation and inspection without any anomalies. SKIN: Turgor is present. No skin lesions are noted. PSYCHIATRIC: The patient is awake, alert, and oriented and has normal insight and normal concentration. LABORATORY DATA: The patient had a CAT scan of the abdomen and pelvis with IV contrast only and amylase and lipase blood work done as well. The CAT scan of the abdomen and pelvis shows minimal right pleural effusion, right pleural thickening, passive atelectatic airspace disease of the right lower lobe, small sliding hernia, retroperitoneal soft tissue thickening and enlarged lymph nodes unchanged, actually the size is much small at this time than before. Recurrent left presacral collection with prominence surrounding soft tissue thickening measures 3.7 x 2.2 cm in the current exam smaller than before, mild bilateral hydronephrosis is unchanged, increasing constipation is seen on the CAT scan. Left inguinal hernia contains a nonincarcerated part of the bladder, mild diffuse thickening of the bladder is noted. A 1.2 cm left simple cyst, liver is uniform attenuation without any massive defect. There is no intra or extrahepatic biliary duct dilatation. Spleen is normal. is normal. Pancreas is normal contour. There is no evidence of adrenal mass. Both kidneys demonstrates prompt and equal nephrograms. Kidney is normal in size. There is no evidence of renal or residual mass. No evidence of appendicitis. There is no bowel thickening. No evidence of small or large bowel destruction. Lab data was reviewed with white count of 7.4, hemoglobin 10.7, hematocrit 32.5, and platelet count 203,000. Chemistries reveal a sodium of 138, K is 4.6, chloride is 106, CO2 is 24, BUN is 17, creatinine is 1, random sugars are 112, calcium is 9.3, total bilirubin is 0.6, AST is 27, ALT is 37, alkaline phosphatase is 125, alkaline phosphatase is normal, total protein is 6.9, albumin is 3.8 with a globulin of 3.2 and lipase was 27. . ASSESSMENT, NOTES AND PLAN: This is a 78-year-old male who is admitted to the emergency room with new onset of right lower quadrant pain and background history of having history of mantle cell lymphoma, currently in remission; coronary artery disease; and history of having had reversal colostomy with presacral abscess that was treated adequately and the patient had been discharged. Now comes in with new onset of pain, concern was that the patient was developing appendicitis or had other issues with his colon. Based on the CAT scan review, it appears that dealing mostly with obstipation/constipation. The patient has been seen by gastrointestinal and by surgery and the plan is to continue giving the patient enough medications to help to move his bowels in the form of MiraLax and Colace and hopefully, once he starts moving his bowels, the patient should start feeling better. We have given him also IV fluids up to 2 L and that is also help him with movements of the bowels and the bowel to be less constipated and we will monitor his lab work. We are also going to get Cardiology to see him to make sure everything is okay from his cardiac point of view. In the meantime, I will continue his current medications including his aspirin and Plavix. Routine post-exam instructions have been given to the patient. We will continue to monitor the patient and lab for a.m. has been requested. Alie Myers MD
[2018-03-15] MEDS: Meropenem IV 1 gm in NS 1 GM/50 ML BAG IVPB SCH ×3 (00:13→13:23)
[2018-03-15] MEDS: Sodium Chloride 0.9% 1,000 ML IV SCH (00:28)
[2018-03-15] MEDS: Levalbuterol 0.63 MG/3 ML Inhal Soln UD IH SCH ×2 (00:34→07:51)
--- NOTE | 2018-03-15 01:36 | CON ---
DATE: 03/14/2018 REASON FOR CONSULTATION: Abdominal pain. HISTORY OF PRESENT ILLNESS: This is a -[id number] patient with history of stage IV mantle cell lymphoma; history of lung cancer, status post wedge resection; hypogammaglobulinemia; coronary artery disease, status post PCI; diabetes mellitus; hypertension; COPD; had a history of perforated sigmoid diverticulum, status post Milli's procedure and had recently reversal of the colostomy, had multiple postoperative period was complicated. The patient did have presacral collection phlegmon measuring about nearly 7 cm, which was drained by CT-guided drainage was done. Subsequently, the drained was removed, clinically the patient doing better, discharged home, presents with an acute onset of the right-sided abdominal pain and abdominal groin discomfort. Presented to the ER. The patient said he has been moving his bowels. No history of any fever. No vomiting. PAST MEDICAL HISTORY: Significant as above. History of TIA and COPD. FAMILY HISTORY: Noncontributory. SOCIAL HISTORY: He denies smoking or alcohol. ALLERGIES: MULTIPLE INCLUDING SULFA, ZITHROMAX, ERYTHROMYCIN, PENICILLIN, KEFLEX, NITROGLYCERIN PASTE, AND IMBRUVICA. REVIEW OF SYSTEMS: Review of systems is positive as above, other systems reviewed negative. PHYSICAL EXAMINATION: VITAL SIGNS: Temperature 97.3, blood pressure is 158/81, pulse is 70, and respirations are 20. HEENT: Atraumatic and anicteric. NECK: Supple. HEART: S1 and S2 heard. LUNGS: Bilateral air entry present. ABDOMEN: Soft. No obvious tenderness at this time. No rebound or guarding. No mass palpable. EXTREMITIES: No cyanosis. No clubbing. LABORATORY DATA: Hemoglobin is 10.7, hematocrit is 32.5, WBC is 7.4, and platelets are 203. LFTs are essentially unremarkable. CT scan of the abdomen and pelvis was reviewed. The presacral collection appeared to be very small measuring around only 1.2 to 1.6 cm. Large amount of stool was present throughout. IMPRESSION: This is a -[id number] patient with mantle cell lymphoma, history of lung cancer resected, recent sigmoid colon perforation, reversal of the Milli's procedure done, had postoperative complications, had presacral abscess, which was drained, now admitted with acute onset of discomfort at the right groin and right lower quadrant. We would recommend at this point: 1. We will start the patient on clear liquid diet. 2. We will start MiraLax. 3. Small pelvic collection, which appeared to be significantly improved. This has been evaluated. No intervention at this time. PLAN: Further the patient has been seen by Dr. Je Horne. I have discussed with Dr. Myers and also with Dr. Marques regarding the patient. Thank you very much for allowing us to participate in the care of the patient. Lakisha Casiano MD
--- NOTE | 2018-03-15 07:51 | CP.PCM.PN ---
Subjective - Date & Time of Evaluation Date of Evaluation: 03/15/18 Time of Evaluation: 06:48 - Subjective Subjective: PGY-1 Sasha Henley D.O. Surgery progress note for Dr. Pabon: Patient was seen and examined this morning. He states he is feeling much better and has no acute complaints. His abdominal pain is improved. Denies nausea and vomiting. He is tolerating a PO diet. He is having BMs. Objective - Vital Signs/Intake and Output Vital Signs (last 24 hours): Temp Pulse Resp BP Pulse Ox 97.2 F L 78 20 135/84 96 03/15/18 06:00 03/15/18 06:00 03/15/18 06:00 03/15/18 06:00 03/15/18 06:00 Intake and Output: 03/15/18 03/15/18 06:59 18:59 Intake Total 900 Balance 900 - Medications Medications: Current Medications Aspirin (Aspirin Chewable) 81 mg PO DAILY [facility] Clopidogrel Bisulfate (Plavix) 75 mg PO DAILY [facility] Home Med (Home Med) 1 unit PO BID [facility] Last Admin: 03/15/18 00:08 Dose: Not Given Home Med (Home Med) 1 unit PO HS [facility] Last Admin: 03/15/18 00:09 Dose: Not Given Sodium Chloride (Sodium Chloride 0.9%) 1,000 mls @ 100 mls/hr IV .Q10H [facility] Last Admin: 03/15/18 00:28 Dose: 100 mls/hr Meropenem (Merrem Iv 1 Gm Premix) 1 gm in 50 mls @ 100 mls/hr IVPB Q8 [facility]; Protocol Stop: 03/23/18 14:01 Last Admin: 03/15/18 05:49 Dose: 100 mls/hr Insulin Human Lispro (Humalog Med) 0 units SC ACHS [facility]; Protocol Last Admin: 03/14/18 21:28 Dose: Not Given Levalbuterol HCl (Xopenex) 0.63 mg IH BIDRESP [facility] Last Admin: 03/15/18 00:34 Dose: 0.63 mg Metformin HCl (Glucophage) 500 mg PO DAILY [facility] Metoprolol Tartrate (Lopressor) 12.5 mg PO QPM [facility] Last Admin: 03/14/18 18:20 Dose: 12.5 mg Montelukast Sodium (Singulair) 10 mg PO HS [facility] Oxybutynin Chloride (Ditropan Tab) 5 mg PO HS [facility] Last Admin: 03/14/18 23:28 Dose: 5 mg Polyethylene Glycol (Miralax) 17 gm PO TID [facility] Last Admin: 03/14/18 17:32 Dose: 17 gm - Labs Labs: 03/14/18 00:49 03/14/18 00:49 - Constitutional Appears: Non-toxic - Head Exam Head Exam: ATRAUMATIC, NORMAL INSPECTION - Eye Exam Eye Exam: EOMI, Normal appearance - ENT Exam ENT Exam: Mucous Membranes Moist - Neck Exam Neck Exam: Normal Inspection - Respiratory Exam Respiratory Exam: NORMAL BREATHING PATTERN. absent: Accessory Muscle Use, Respiratory Distress - Cardiovascular Exam Cardiovascular Exam: RRR - GI/Abdominal Exam GI & Abdominal Exam: Soft. absent: Distended, Tenderness, Mass - Extremities Exam Extremities Exam: Normal Inspection - Neurological Exam Neurological Exam: Alert, Awake, Oriented x3 - Psychiatric Exam Psychiatric exam: Normal Affect, Normal Mood - Skin Skin Exam: Dry, Normal Color, Warm Assessment and Plan - Assessment and Plan (Free Text) Assessment: 78M with post surgical abdomen presenting with constipation and pelvic collection. CT A/P: IMPRESSION: No acute intra-abdominal findings. Small residual presacral fluid collection on the left measuring 12 x 16 mm. Plan: - No indication for surgical intervention at this time - Serial abdominal exams - Continue stool softeners/laxatives- currently on Miralax as per GI - IR- no intervention at this time for presacral collection - Heart healthy diet- pt tolerating Further recs as per attending, Dr. Pabon.
[2018-03-15] MEDS: Insulin Lispro (humaLOG) MEDIUM Coverage SC SCH ×3 (07:58→17:08)
--- NOTE | 2018-03-15 08:22 | PN ---
DATE: 03/14/2018 The patient was reexamined after reviewing all the CAT scan, and speaking to various consultants. feeling is that reason for the pain could have been constipation, and that at this point in time, putting on a constipation protocol along with this time to giving him IV fluids would be the best way to help him out. In the meantime, the patient is due for IV gammaglobulin 30 g that he gets once a month for his hypogammaglobulinemia which we are going to infuse today while he is in the hospital. I have explained all of these in great detail to the patient and his . Routine post exam instructions have been given to the patient. Alie Myers MD
--- NOTE | 2018-03-15 08:23 | CON ---
DATE: 03/13/2018 HISTORY OF PRESENT ILLNESS: The patient is 78 years old, patient of Dr. Myers, came to emergency room because of his abdominal pain that developed yesterday afternoon in the right lower quadrant area. It is not associated with fever or chills. No history of nausea or vomiting. The patient has history of perforated diverticulum. For that, he had colostomy done, but recently colostomy was reversed and he developed pelvic abscess and that was drained by Dr. Je Horne. Since then, he has been doing well until he developed pain in the right lower quadrant area. PAST MEDICAL HISTORY: Significant for; 1. Stage IV mantle cell lymphoma. 2. History of lung CA, status post wedge resection 3 to 4 years ago. 3. Coronary artery disease, status post angioplasty. 4. Insulin dependent diabetes. 5. COPD. 6. Status post sigmoid diverticular perforation, underwent Rob procedure. 7. Hypogammaglobulinemia. SOCIAL HISTORY: No history of smoking, drinking, or alcohol use. ALLERGIES: HE IS ALLERGIC TO ZITHROMAX, KEFLEX, AND PENICILLIN. PHYSICAL EXAMINATION: GENERAL: He is awake, alert, and oriented, able to communicate. He states his abdominal pain is almost gone. He is n.p.o. for now. He is on IV fluids. VITAL SIGNS: He is afebrile, pulse 70, respirations 20, and blood pressure 158/81. LUNGS: Bilateral fair air flow. No rhonchi or crackle. HEART: S1 and S2 audible. ABDOMEN: Soft. No rebound. No guarding. NEUROLOGIC: He is awake, alert, oriented, and communicative. LABORATORY DATA: WBC 7.4, hemoglobin 10.7, hematocrit 32.5, and platelets 203. Chemistry; sodium 138, potassium 4.6, chloride 106, CO2 of 24, BUN 17, creatinine 1.0, and blood sugar 112. Urine analysis is unremarkable. ASSESSMENT: 1. Abdominal pain. CT scan was done that showed no acute intraabdominal pathology. However, he has small residual presacral fluid collection 12 x 16 mm. 2. Non-insulin dependent diabetes. 3. Hypertension. 4. Hyperlipidemia. 5. History of coronary artery disease. PLAN: Currently, the patient is on meropenem. He is being given MiraLax, analgesic as needed, and monitor his blood sugar. If the patient starts to have bowel movement and he is pain free, possibly we will discharge in a.m. Julee Lemus MD
[2018-03-15] MEDS: POLYETHYLENE GLYCOL 3350 17 GM/Dose PACKET PO SCH (10:06)
[2018-03-15] MEDS ORDERED: POLYETHYLENE GLYCOL 3350 17 GM/Dose PACKET PO PRN (11:48)
--- NOTE | 2018-03-15 13:54 | PN ---
DATE: 03/15/2018 SUBJECTIVE: Patient is 78 years old, seen and examined, state he had 3 bowel movement, first one was hard and formed and loose and no more abdominal pain. No fever, no chills, no nausea or vomiting, no diarrhea. Eating soft diet. PHYSICAL EXAMINATION: VITAL SIGNS: He is afebrile, pulse 78, respirations 21, blood pressure 135/84. LUNGS: Bilateral fair airflow. No rhonchi or crackle. HEART: S1 and S2 audible. ABDOMEN: Soft, nontender. No rebound. No guarding. Bowel sounds are positive. Had 3 bowel movement yesterday. EXTREMITIES: Bilateral legs, no edema. LABORATORY DATA: Blood sugar is 300. Urinalysis shows unremarkable. Blood cultures are negative. ASSESSMENT: 1. Abdominal pain probably secondary to constipation. 2. History of perforated diverticulum status post colostomy and status post reversal, he has pelvic abscess that was drained by CT guided, he had CT guided drainage done. Current CT scan does not show any collection. 3. History of coronary artery disease. 4. Hypertension. 5. Non-insulin dependent diabetes. PLAN: Currently, patient is afebrile. He has no white count. His blood sugar is running high probably secondary to steroid, we will increase his metformin to twice a day since his kidney function is stable. Monitor his blood sugar and give him coverage accordingly. We will reach out with ID if he needs antibiotics this can be discontinue. Because of his poor immune system, he need to be seen to be discharged. According to nurse, he is ambulatory, walks without getting short of breath and dizzy and once clear by ID, discharge plan can be made. Julee Lemus MD
--- NOTE | 2018-03-15 16:10 | CP.PCM.PN ---
<Hilary Doe - Last Filed: 03/15/18 16:07> Subjective - Date & Time of Evaluation Date of Evaluation: 03/15/18 Time of Evaluation: 11:00 - Subjective Subjective: ID Progress note PGY-[address] Marshall Abdominal pain resolved after 2-3 bowel movement last night. Pt states that he had received laxative. no other acute complaints Objective - Vital Signs/Intake and Output Vital Signs (last 24 hours): Temp Pulse Resp BP Pulse Ox 97.2 F L 78 20 135/84 96 03/15/18 06:00 03/15/18 06:00 03/15/18 06:00 03/15/18 06:00 03/15/18 06:00 Intake and Output: 03/15/18 03/15/18 06:59 18:59 Intake Total 900 Balance 900 - Medications Medications: Current Medications Aspirin (Aspirin Chewable) 81 mg PO DAILY [facility] Last Admin: 03/15/18 10:06 Dose: 81 mg Clopidogrel Bisulfate (Plavix) 75 mg PO DAILY [facility] Last Admin: 03/15/18 10:05 Dose: 75 mg Diphenhydramine HCl (Benadryl) 25 mg PO Q6 PRN PRN Reason: Itching / Pruritus Last Admin: 03/15/18 10:06 Dose: 25 mg Docusate Sodium (Colace) 100 mg PO DAILY [facility] Last Admin: 03/15/18 13:23 Dose: 100 mg Home Med (Home Med) 1 unit PO HS [facility] Last Admin: 03/15/18 00:09 Dose: Not Given Home Med (Home Med) 1 unit PO BID [facility] Hydrocortisone (Cortizone 2.5% Cream) 1 applic TOP BID [facility] Insulin Human Lispro (Humalog Med) 0 units SC ACHS [facility]; Protocol Last Admin: 03/15/18 11:57 Dose: 7 u Levalbuterol HCl (Xopenex) 0.63 mg IH BIDRESP [facility] Last Admin: 03/15/18 07:51 Dose: 0.63 mg Metformin HCl (Glucophage) 500 mg PO BID [facility] Metoprolol Tartrate (Lopressor) 12.5 mg PO QPM [facility] Last Admin: 03/14/18 18:20 Dose: 12.5 mg Montelukast Sodium (Singulair) 10 mg PO HS [facility] Oxybutynin Chloride (Ditropan Tab) 5 mg PO HS [facility] Last Admin: 03/14/18 23:28 Dose: 5 mg Polyethylene Glycol (Miralax) 17 gm PO TID PRN PRN Reason: Constipation - Labs Labs: 03/14/18 00:49 03/14/18 00:49 - Constitutional Appears: No Acute Distress - Head Exam Head Exam: ATRAUMATIC, NORMAL INSPECTION, NORMOCEPHALIC - Eye Exam Eye Exam: EOMI, Normal appearance, PERRL. absent: Scleral icterus Pupil Exam: NORMAL ACCOMODATION - ENT Exam ENT Exam: Mucous Membranes Moist - Neck Exam Additional comments: supple - Respiratory Exam Respiratory Exam: Clear to Ausculation Bilateral. absent: Rales, Rhonchi, Wheezes - Cardiovascular Exam Cardiovascular Exam: REGULAR RHYTHM, +S1, +S2. absent: Murmur - GI/Abdominal Exam GI & Abdominal Exam: Soft, Normal Bowel Sounds. absent: Guarding, Rigid, Tenderness Additional comments: No suprapubic pain - Extremities Exam Extremities Exam: absent: Calf Tenderness, Pedal Edema - Back Exam Back Exam: absent: CVA tenderness (L), CVA tenderness (R) - Neurological Exam Neurological Exam: Alert, Awake, Oriented x3 - Psychiatric Exam Psychiatric exam: Normal Affect, Normal Mood - Skin Skin Exam: Dry, Warm Assessment and Plan - Assessment and Plan (Free Text) Plan: 78M with post surgical abdomen presenting with constipation and pelvic collection A: Severe RLQ abdominal pain with No SIRS - resolved Pelvic collection likely resolving perisacral abscess Constipation - resolved Immunocompromise Allergy to Sulfa, Zithromax, erythromycin, penicillin, Keflex, imbruvica R port-a-cath P: Discontine meropenem Pt needs to continue monitor perisacral abscess outpatient. Follow up with Dr Myers for CT scan outpatient s/r/d/w Dr Marshall <Lloyd Marshall S - Last Filed: 03/15/18 23:18> Objective - Vital Signs/Intake and Output Vital Signs (last 24 hours): Temp Pulse Resp BP Pulse Ox 98.1 F 88 20 151/76 H 98 03/15/18 18:00 03/15/18 18:00 03/15/18 18:00 03/15/18 18:00 03/15/18 18:00 - Labs Labs: 03/14/18 00:49 03/14/18 00:49 Assessment and Plan - Assessment and Plan (Free Text) Plan: Infectious diseases Attending Physician Attestation Patient seen and examined, discussed with medical receptionist medical assistant. I have reviewed the patient's history of present illness, past medical, social, personal and family histories, pertinent physical exam findings, course so far in this hospital admission, pertinent laboratory and imaging results. I agree with the above findings, assessment and plan. In addition, we can d/c Merrem since blood cx are negative and CT A/P is showing minimal fluid collection in the pelvic area, which has significantly improved from previous imaging.
--- NOTE | 2018-03-15 16:47 | CP.PCM.PN ---
Subjective - Date & Time of Evaluation Date of Evaluation: 03/15/18 Time of Evaluation: 14:00 - Subjective Subjective: PGY-4 GI Fellow Prog Note Pt lying in bed when seen this afternoon. States abd discomfort improved post BMs. 5 point ROS negative other than stated above Objective - Vital Signs/Intake and Output Vital Signs (last 24 hours): Temp Pulse Resp BP Pulse Ox 97.2 F L 78 20 135/84 96 03/15/18 06:00 03/15/18 06:00 03/15/18 06:00 03/15/18 06:00 03/15/18 06:00 Intake and Output: 03/15/18 03/15/18 06:59 18:59 Intake Total 900 Balance 900 - Medications Medications: Current Medications Aspirin (Aspirin Chewable) 81 mg PO DAILY [facility] Last Admin: 03/15/18 10:06 Dose: 81 mg Clopidogrel Bisulfate (Plavix) 75 mg PO DAILY [facility] Last Admin: 03/15/18 10:05 Dose: 75 mg Diphenhydramine HCl (Benadryl) 25 mg PO Q6 PRN PRN Reason: Itching / Pruritus Last Admin: 03/15/18 10:06 Dose: 25 mg Docusate Sodium (Colace) 100 mg PO DAILY [facility] Last Admin: 03/15/18 13:23 Dose: 100 mg Home Med (Home Med) 1 unit PO HS [facility] Last Admin: 03/15/18 00:09 Dose: Not Given Home Med (Home Med) 1 unit PO BID [facility] Hydrocortisone (Cortizone 2.5% Cream) 1 applic TOP BID [facility] Insulin Human Lispro (Humalog Med) 0 units SC [facility]; Protocol Last Admin: 03/15/18 11:57 Dose: 7 u Levalbuterol HCl (Xopenex) 0.63 mg IH BIDRESP [facility] Last Admin: 03/15/18 07:51 Dose: 0.63 mg Metformin HCl (Glucophage) 500 mg PO BID [facility] Metoprolol Tartrate (Lopressor) 12.5 mg PO QPM [facility] Last Admin: 03/14/18 18:20 Dose: 12.5 mg Montelukast Sodium (Singulair) 10 mg PO HS [facility] Oxybutynin Chloride (Ditropan Tab) 5 mg PO HS [facility] Last Admin: 03/14/18 23:28 Dose: 5 mg Polyethylene Glycol (Miralax) 17 gm PO TID PRN PRN Reason: Constipation - Labs Labs: 03/14/18 00:49 03/14/18 00:49 - Constitutional Appears: Well, No Acute Distress - Head Exam Head Exam: ATRAUMATIC, NORMAL INSPECTION - Eye Exam Eye Exam: EOMI, Normal appearance - ENT Exam ENT Exam: Mucous Membranes Moist. absent: Mucous Membranes Dry - Respiratory Exam Respiratory Exam: NORMAL BREATHING PATTERN. absent: Accessory Muscle Use, Respiratory Distress - GI/Abdominal Exam GI & Abdominal Exam: Distended (mildly), Soft. 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 Casiano; see attestation for further recs/changes.
[2018-03-15 17:19] VITALS: BP 151/76; PULSE 88
[2018-03-15 18:32] VITALS: TEMP 98.1; O2SAT 98
--- NOTE | 2018-03-15 21:46 | DS ---
DATE OF VISIT: 03/15/2018 This is Jakub Marques's discharge summary. For Dr. Myers. SUBJECTIVE: The patient is a 78-year-old male admitted to observation yesterday for severe abdominal pain, which is now relieved after laxative was given for bowel movement. Unfortunately, the patient recently had revision of emergency colostomy for obstructed bowel with suspicion at a fluid collection that had remained, may have been infected, and he was cleared by Dr. Marshall, his Infectious Disease community health consultant, for discharge home today. At present, the patient is without complaint and anxious for discharge home. OBJECTIVE/PHYSICAL EXAMINATION: VITAL SIGNS: Temperature 97.2, pulse 78, respirations 20, blood pressure 135/84, pulse ox 96%. HEENT: Unremarkable. NECK: Supple. HEART: Regular rate. LUNGS: Clear. ABDOMEN: Protuberant, soft, nontender, with surgical scars healing well. EXTREMITIES: No edema. SKIN: Warm and dry. NEUROLOGIC: Awake and alert. LABORATORY DATA: The patient's labs were done. White blood cell count yesterday of 7.4, hemoglobin 10.7, hematocrit 32.5, platelet count of 203,000, with a metabolic panel completely within normal range yesterday with a non-fasting glucose earlier today of 165. Urine specimen was negative for blood sugar protein yesterday along with blood cultures being negative from yesterday. MEDICATIONS: The patient's discharge medications include Ecotrin, Atarax, Benadryl, Colace, oxybutynin, Glucophage, insulin, Lopressor, MiraLAX, Plavix, Singulair, Xopenex, Zetia, Zofran p.r.n. Also, it should be noted that the patient did receive his IV gammaglobulin as per Dr. Myers's recommendation while hospitalized. 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 PLAN: For this patient is to continue present medical regimen as above with follow up with Dr. Lemus, his primary doctor and with Dr. Myers in 1 week's time. We also recommended hydrocortisone cream as the patient did have itching of his legs with no apparent skin changes. This is a complex patient with a comprehensive medically necessary and appropriate visit carried out in excess of 40 minutes with the patient and his , who is a physician, questions answered to their satisfaction. Ted Santoyo MD
== END 2018-03-15 19:11 | disposition home or self-care (01) ==
LOC: ED 00:09 → ERH 04:19 → 3RNO 05:49
PROVIDERS: ADMIT Family Medicine; ATTEND Family Medicine
DX: K59.00 Constipation, unspecified (principal); C83.10 Mantle cell lymphoma, unspecified site; I25.10 Atherosclerotic heart disease of native coronary artery without angina pectoris; D80.1 Nonfamilial hypogammaglobulinemia; I10 Essential (primary) hypertension; J44.9 Chronic obstructive pulmonary disease, unspecified; E11.9 Type 2 diabetes mellitus without complications; N40.0 Benign prostatic hyperplasia without lower urinary tract symptoms; E78.5 Hyperlipidemia, unspecified; I25.2 Old myocardial infarction; H91.90 Unspecified hearing loss, unspecified ear; K40.90 Unilateral inguinal hernia, without obstruction or gangrene, not specified as recurrent; N28.1 Cyst of kidney, acquired; Z85.118 Personal history of other malignant neoplasm of bronchus and lung; Z79.4 Long term (current) use of insulin; Z86.73 Personal history of transient ischemic attack (TIA), and cerebral infarction without residual deficits; Z95.5 Presence of coronary angioplasty implant and graft
CPT/HCPCS: 36415; 74177; 80053; 81003; 82948; 83690; 85027; 87040; 94640; 96361; 96365; 96366; 96368; 96375; 99284; G0378; J1100; J1200; J1568; J2185; J2270; J2405; J7030; Q0177; Q9967

== ENCOUNTER 2018-04-25 12:14 | Outpatient (CLI) | payer MEDICARE, OTHER | END 2018-04-25 12:15 | disposition home or self-care (01) | LOC: OPLAB 12:14 ==

== ENCOUNTER 2018-07-25 13:28 | Outpatient (CLI) | payer MEDICARE, OTHER | END 2018-07-25 13:29 | disposition home or self-care (01) | LOC: OPLAB 13:28 ==